=== PATIENT | male | born 1990 | race Caucasian/White ===

== ENCOUNTER 2023-06-06 06:27 | Emergency (ER) | payer OTHER, SELFPAY ==
[2023-06-06 06:39] VITALS: BP 157/91; PULSE 71; RESP 16; TEMP 36.5; O2SAT 98; BMI 28.9
--- NOTE | 2023-06-06 07:15 | ED.DENTAL1 ---
HPI - Dental/Oral General Chief complaint: Dental/Oral Stated complaint: DENTAL PAIN Time Seen by Provider: 06/06/23 07:06 Source: patient Mode of arrival: walk-in Limitations: no limitations History of Present Illness HPI Narrative: patient had several broken and carious teeth. He has not seen a dentist. He presents with pain in the left lower jaw and some swelling of the left lower cheek along the jaw that began 2 days ago. No fever or vomiting. Related Data Home Medications Medication Instructions Recorded Confirmed albuterol sulfate 90 mcg/actuation 1 puff inhalation Q4H PRN 06/06/23 06/06/23 aerosol inhaler (Ventolin HFA) shortness of breath or wheezing alprazolam 0.5 mg tablet 1 mg PO QID 06/06/23 06/06/23 buprenorphine 8 mg-naloxone 2 mg 2 film sublingual DAILY 06/06/23 06/06/23 sublingual film dextroamphetamine-amphetamine 15 15 mg PO DAILY 06/06/23 06/06/23 mg tablet dextroamphetamine-amphetamine ER 25 mg PO DAILY 06/06/23 06/06/23 25 mg 24hr capsule,extend release dronabinol 5 mg capsule 5 mg PO DAILY 06/06/23 06/06/23 pregabalin 200 mg capsule 200 mg PO Q8H 06/06/23 06/06/23 Previous Rx's Medication Instructions Recorded clindamycin HCl 150 mg capsule 450 mg PO TID 7 days #63 caps 06/06/23 nabumetone 750 mg tablet 750 mg PO BID PRN pain #20 tabs 06/06/23 Allergies Allergy/AdvReac Type Severity Reaction Status Date / Time No Known Drug Allergies Allergy Verified 06/06/23 06:44 PFSH PFSH Social History Smoking status: Current every day smoker Exam Narrative Exam Narrative: General: The patient is comfortable, alert and oriented x3, well appearing, non toxic in no apparent distress. Head: Atraumatic and normocephalic. Eyes: Normal conjunctiva ENT: The oropharynx is normal. No pharyngeal erythema, uvular edema, tonsillar exudates, asymmetry or trismus. Uvula is midline. Mouth is normal to inspection with the exception of a pain on percussion of teeth #17 & 19 - tooth 18 is gone - both have substantial loss of enamel and dental caries. There is no evidence of facial asymmetry or abscess formation. Floor of the mouth is soft. No tenderness in the submental or submandibular space. No tongue elevation or deviation. The patient has no evidence of periapical abscess, gingivitis or other acute pathology. Airway is patent. Neck: The neck demonstrates normal range of motion. No meningeals signs are present. No stridor. No masses or lymphandenopathy noted. Respiratory: No acute distress, no stridor or retractions are noted. Cardiovascular: Regular rate and rhythm Skin: The skin exam shows no evidence of rashes Neuro: Alert and oriented x4, normal speech Lymphatic: No cervical lymphadenopathy Constitutional Vital Signs - 24 hr 06/06/23 06:39 Temperature 97.7 F Pulse Rate [Monitor] 71 Respiratory Rate 16 Blood Pressure [Right Arm] 157/91 H Pulse Oximetry 98 Oxygen Delivery Method Room Air Course Vital Signs Vital signs: Vital Signs Temperature 97.7 F 06/06/23 06:39 Pulse Rate 71 06/06/23 06:39 Respiratory Rate 16 06/06/23 06:39 Blood Pressure 157/91 H 06/06/23 06:39 Pulse Oximetry 98 06/06/23 06:39 Oxygen Delivery Method Room Air 06/06/23 06:39 Temperature 97.7 F 06/06/23 06:39 Pulse Rate 71 06/06/23 06:39 Respiratory Rate 16 06/06/23 06:39 Blood Pressure 157/91 H 06/06/23 06:39 Pulse Oximetry 98 06/06/23 06:39 Oxygen Delivery Method Room Air 06/06/23 06:39 MDM - Dental/Oral MDM Narrative Medical decision making narrative: the patient has dental caries and loss of enamel. He was given dental paste to apply topically. he was given oral Toradol. Prescribed clindamycin and relafen to take at home. Given dentist referral list. Discharge Plan Discharge Chief Complaint: Dental/Oral Clinical Impression: Dental caries, Toothache Patient Disposition: Home, Self-Care Time of Disposition Decision: 07:19 Prescriptions / Home Meds: New clindamycin HCl 150 mg capsule 450 mg PO TID 7 Days Qty: 63 0RF nabumetone 750 mg tablet 750 mg PO BID PRN (Reason: pain) Qty: 20 0RF No Action albuterol sulfate [Ventolin HFA] 90 mcg/actuation HFA aerosol inhaler 1 puff INHALATION Q4H PRN (Reason: shortness of breath or wheezing) alprazolam 0.5 mg tablet 1 mg PO QID buprenorphine-naloxone 8-2 mg film 2 film sublingual DAILY dextroamphetamine-amphetamine 15 mg tablet 15 mg PO DAILY dextroamphetamine-amphetamine 25 mg capsule,extended release 24hr 25 mg PO DAILY Rx Instructions: HS dronabinol 5 mg capsule 5 mg PO DAILY pregabalin 200 mg capsule 200 mg PO Q8H Instructions: Toothache (ED) Stand Alone Forms: Portal Instructions Referrals: Physician,Non-Staff, MD [Primary Care Provider] - 1 week
[2023-06-06] MEDS: KETOROLAC TROMETHAMINE 10 MG TABLET PO (07:25)
[2023-06-06] MEDS: BENZOCAINE 30 ML, lidocaine HCL 15 ML MM (07:25)
== END 2023-06-06 07:35 | disposition home or self-care (01) ==
PROVIDERS: Emergency Provider Emergency Medicine
DX: K02.9 Dental caries, unspecified (principal); K08.89 Other specified disorders of teeth and supporting structures; Z79.899 Other long term (current) drug therapy; F17.210 Nicotine dependence, cigarettes, uncomplicated
CPT/HCPCS: 99283

== ENCOUNTER 2024-01-22 18:05 | Emergency (ER) | payer OTHER, SELFPAY ==
[2024-01-22 18:12] VITALS: PULSE 132; RESP 18; TEMP 36.3; BMI 33.9
--- NOTE | 2024-01-22 18:20 | PC.NURSE ---
Patient told registration that he is leaving AMA and is going to call 911 to come by ambulance to get a room faster.
== END 2024-01-22 18:21 | disposition left against medical advice (07) ==
PROVIDERS: Emergency Provider Emergency Medicine
DX: Z53.21 Procedure and treatment not carried out due to patient leaving prior to being seen by health care provider (principal)

== ENCOUNTER 2024-07-20 03:22 | Emergency (ER) | payer OTHER, SELFPAY ==
[2024-07-20 03:24] VITALS: BP 124/97; PULSE 94; TEMP 36.6; O2SAT 95; BMI 34.0
--- OUTSIDE RECORDS SUMMARY | 2024-07-20 03:28 | XMS_ITS | CCD ---
Author Organization [facility] Care Team Providers Care Deli Manager Name Role Phone No, Physician Unavailable Unavailable PHYSICIAN, EMERGENCY Unavailable Unavailable Physician, PCP Unknown Unavailable Unavailab PAULO Michel Attending Unavailabl e NO, PHYSICIAN Primary Care Unavailable SMITA, PHYSICIAN Primary Care Unavailable ADOLFO PUENTE Attending UnavailWil Leal Primary Care Provider [phone] Cruz Tesfaye Unavailable MISC, DR MORSE Primary Care Unavailable ASHVIN RIVERA Admitting Unavailable ASHVIN RIVERA Attending Unavailable REBEL, DR LUCY Joiner Consulting Unavailable ASHVIN RIVERA Consulting Unavailable MISAroldo, DR MORSE Primary Care Unavailable JUAN JOSÉ, DR FELI Joiner Admitting Unavailable JUAN JOSÉ, DR FELI Joiner Attending Unavailable JUAN JSOÉ, DR FELI Joiner Consulting Unavailable PHOENIX, KEMAR MENDOZA Consulting Unavailable ADOLFO HAIDER Consulting Unavailable MISC, DR MORSE Primary Care Unavailable ARMAND NGUYEN Admitting Unavailable WENDY, ARMAND Attending Unavailable ARMAND NGUYEN Consulting Unavailable MISC, DR MORSE Primary Care Unavailable JODI, DR LEE Admitting Unavailable JODI, DR LEE Attending Unavailable KATHRYN, DR ADOLFO Jacome Consulting Unavailable JODI, DR LEE Consulting Unavailable Bob ([facility]), MD Chetan Kendrick Primary Care Provi mateo Carrington, [facility]- Rosi E Emergency Provider Wil Goetz Primary Care Provider [phone] PITER MENESES Referring Unavailable WIL GOETZ Primary Care Unavailable Bob ([facility])MD Chetan Primary Care Provi mateo DO Ryland Kaminski Emergency Provider Bob ([facility])Chetan Primary Care Unava ilable Ryland Kaminski Attending Unavailable Ryland Kaminski Admitting Unavailable [facility] Primary Care Provider [phone] Bob LEWIS, Chetan Jackson Primary Care Provider Pavoscar [facility] Primary Care Provider [facility] Primary Care Unavailable ADOLFO BALLARD Attending Unavailable CHARLEEN SILVER Attending Unavailable [facility] Unavaila PITER Gibbons Attending Unavailable [facility] Primary Care Unavailable PITER MENESES Referring Unavailable [facility] Primary Care Unavailable REYNA ANTON Attending Unavailable [facility] Primary Care Unavailable REYNA ANTON Referring Unavailable [facility] Primary Care Unavailable RUSTY JASMINE Referring Unavailable RUSTY JASMINE Attending Unavailable ADOLFO BALLARD Admitting Unavailable [facility] Primary Care Unavailable ADOLFO BALLARD Attending Unavailable [facility] Primary Care Unavailable REYNA ANTON Attending Unavailable [facility] Primary Care Unavailable RUSTY JASMINE Referring Unavailable [facility] Primary Care Unavailable RUSTY JASMINE Referring Unavailable [facility] Primary Care Unavailable RUSTY JASMINE Referring Unavailable JAYLEEN BECKER Attending Unavailable [facility], [facility] Primary Care Unavailable REYNA ANTON Referring Unavailable RENEE PEARCE Referring Unavailable [facility] Unavaila RENEE Deleon Referring Unavailable [facility] Primary Care Unavaila RENEE Deleon Referring Unavailable [facility] Primary Care UnavailADOLFO Castro Attending Unavailable [facility] Primary Care Unavaila ble Allergies Allergy Classification Reported Allergen(s) Allergy Type Date of Onset Reaction(s) Facility Cephalosporins (antibiotic) (1 source) Cefuroxime Drug Allergy 10-19-20 18 Diarrhea [facility] Opioid Agonists (2 sources) Propoxyphene Drug Allergy 02-06-20 10 Rash, Itching, Hives [facility] Work Phone: Penicillins (antibiotic) (1 source) Amoxicillin Drug Allergy 09-17-20 20 Rash [facility] (2 sources) Aspirin / oxyCODONE Hydrochloride / oxyCODONE terephthalate; Translations: [OXYCODONE [id number]] Drug Allergy 08-31-20 10 Rash [facility] (20 sources) Propoxyphene; Translations: [PROPOXYPHENE HCL] Drug Allergy 02-06-20 10 Rash, Itching [facility] Work Phone: (5 sources) Aspirin / oxyCODONE Drug Allergy Unknown [employer] [employer] Other (20 sources) Amoxicillin; Translations: [AMOXICILLIN] Drug Allergy 09-17-20 20 Rash [facility] (20 sources) Cefuroxime; Translations: [CEFUROXIME] Drug Allergy 10-19-20 18 Diarrhea [facility] (20 sources) Morphine; Translations: [MORPHINE] Drug Allergy 09-02-20 18 Hives [facility] (1 source) Aspirin Drug Allergy 02-08-[address] [facility] Rep[facility] (1 source) oxyCODONE Drug Allergy 02-08-[address] [facility] Rep[facility] (16 sources) Iodinated Contrast Media; Translations: [IODINATED CONTRAST MEDIA] Drug Intolerance 05-21-20 24 Intolerance [facility] Medications Current Medications Medication Drug Class(es) Dates Sig (Normalized) Sig (Original) [id number] 200 actuat albuterol 0.09 mg/actuat metered dose inhaler (20 sources) beta2-Adrenergic Agonist Start: 07-17-2021 take 2 puff(s) by inhalation every six hours as needed for wheezing albuterol HFA (PROAIR HFA) 90 mcg/actuation inhaler 2 Puffs every 6 hours as needed for wheezing/shortnes s of breath. Take as directed 1 Each 07/17/2021 Active Start: 05-23-2020 End: 09-17-2020 Albuterol Sulfate Discontinu ed 2 INH INHALATION Four times daily May 23, 2020 4:31pm September 17, 2020 9:55pm Start: 11-11-2018 End: 07-17-2019 Albuterol Sulfate Discontinu ed 2 INH INHALATION EVERY 4-6 HOURS November 11, 2018 12:00am July 17, 2019 2:21pm administer with spacer Comment on above: 2 Puffs every 6 hour s as needed for wheezing/shortness of breath. Take as directed ALPRAZolam 1 mg oral tablet (20 sources) Benzodiazepine Start: 07-08-20 End: 08-07-20 take 1 tablet by mouth four times daily as needed for anxiety ALPRAZolam (XANAX) 1 mg tablet Indications: Alcohol withdrawal syndrome without complication (HCC) Take 1 tablet by mouth four times a day as needed for anxiety for up to 30 days. 120 tablet 07/08/2024 08/07/2024 Active Start: 09-17-2020 take 1 mg by mouth f our times daily Alprazolam Active 1 MG PO Four times daily September 16, 2020 11:00pm Start: 12-03-2017 End: 12-05-2017 take 1 tablet by mouth three times daily Alprazolam (Xanax) 2 mg Tablet Discontinued 2 MG PO Three times daily December 03, 2017 12:00am December 05, 2017 5:58pm Start: 11-13-2015 End: 07-17-2019 take 1 tablet by mouth every eight hours as needed ALPRAZolam (XANAX) 1 mg tablet Take 1 tablet by mouth three times daily as needed for Anxiety. 21 tablet 0 11/13/2015 Suspended Xanax Active Comment on above: Take 1 tablet by nava three times daily as needed for Anxiety. amoxicillin 500 mg oral capsule (1 source) Penicillin-class Antibacterial Start: 018 End: take 1 capsule by mouth three times daily amoxicillin (AMOXIL) 500 MG capsule Indications: Acute otalgia, right Take 1 (one) capsule (500 mg total) by mouth 3 (three) times a day for 30 doses. 30 capsule 0 2018 05/22/2018 Active amphetamine aspartate 3.75 mg / amphetamine sulfate 3.75 mg / dextroamphetamine saccharate 3.75 mg / dextroamphetamine sulfate 3.75 mg oral tablet (20 sources) Central Nervous System Stimulant Start: 021 take 1 tablet by mouth once daily in the evening amphetamine-dextro amphetamine 15 mg tablet TAKE 1 TABLET BY MOUTH EVERY DAY IN THE EVENING 06/22/2021 Active Start: 09-17-2020 amphetamine-de xtroamphetamine XR (ADDERALL XR) 25 mg 24 hr capsule Take by mouth every morning. 06/22/2021 Active Start: 09-17-2020 End: 09-22-2020 take 1 tablet by mouth once daily Dextroamphetamine-Amphetamine (Adderall) 15 mg Tablet Discontinued 15 MG PO Daily September 16, 2020 11:00pm September 22, 2020 12:42pm Start: 06-23-2018 End: 07-17-2019 take 15 mg by mouth once daily Dextroamphetamine-Amphetamine Discontinu ed 15 MG PO Daily June 22, 2018 11:00pm July 17, 2019 2:22pm Start: 04-28-2018 End: 06-23-2018 take 1 tablet by mouth twice daily Dextroamphetamine-Amphetamine (Adderall) 5 mg Tablet Discontinued 5 MG PO Twice daily April 27, 2018 11:00pm June 23, 2018 4:41pm Start: 04-28-2018 End: 07-17-2019 take 1 tablet by mouth twice daily Dextroamphetamine-Amphetamine (Adderall) 10 mg Tablet Discontinued 10 MG PO Twice daily April 27, 2018 11:00pm July 17, 2019 2:22pm Comment on above: Take by mouth every morning. TAKE 1 TABLET BY NAVA TH EVERY DAY IN THE EVENING amphetamine aspartate 2.5 mg / amphetamine sulfate 2.5 mg / dextroamphetamine saccharate 2.5 mg / dextroamphetamine sulfate 2.5 mg oral tablet (2 sources) Central Nervous System Stimulant Start: 05-04-2018 dextroamphetamine- amphetamine (ADDERALL) 10 mg tablet Start: 05-04-2018 dextroamphetam ine-amphetamine (ADDERALL XR) 15 MG 24 hr capsule bismuth subcitrate 140 mg / metroNIDAZOLE 125 mg / tetracycline hydrochloride 125 mg oral capsule (10 sources) Nitroimidazole Antimicrobial, Tetracycline-class Antimicrobial Start: 09-27-2020 take 3 capsules by mouth every six hours Pylera 140-125-125 MG 3 capsules after meals and at bedtime Orally Four times a day for 10 day(s) Oct, Active buprenorphine 8 mg / naloxone 2 mg sublingual film (20 sources) Partial Opioid Agonist, Opioid Antagonist Start: 07-05-2018 buprenorphine-na loxone (SUBOXONE) 8-2 mg film dissolve 1 film under the tongue twice a day 06/28/2021 Active Suboxone Active Comment on above: dissolve 1 film unde r the tongue twice a day diclofenac sodium 75 mg delayed release oral tablet (1 source) Nonsteroidal Anti-inflammatory Drug Start: 8 End: 8 take 1 tablet by mouth twice daily at mealtime diclofenac sodium (VOLTAREN) 75 MG EC tablet Indications: Acute otalgia, right Take 1 (one) tablet (75 mg total) by mouth 2 (two) times a day with meals for 7 days. 14 tablet 0 2018 05/19/2018 Active enteric contrast (will be provided with radiology test) (4 sources) Start: 4 End: 4 enteric contrast (will be provided with radiology test) For CT ENTEROGRAPHY W IVCON order Administer, As Directed One Time Only, via Oral, Rectal, both Oral and Rectal, Enteric Tube, Stoma or Indwelling Catheter, Enteric Contrast as designated per enteric contrast guidelines. 1 Each 0 05/14/2024 05/15/2024 Active Start: 09-29-2023 End: 09-30-2023 enteric contrast (will be pr ovided with radiology test) For CT ENTEROGRAPHY W IVCON order Administer, As Directed One Time Only, via Oral, Rectal, both Oral and Rectal, Enteric Tube, Stoma or Indwelling Catheter, Enteric Contrast as designated per enteric contrast guidelines. 1 Each 0 09/29/2023 09/30/2023 Active Comment on above: For CT ENTEROGRAPHY W IVCON order Administer, As Directed One Time Only, via Oral, Rectal, both Oral and Rectal, Enteric Tube, Stoma or Indwelling Catheter, Enteric Contrast as designated per enteric contrast guidelines. eszopiclone 3 mg oral tablet (20 sources) Start: 05-17-20 11 take 1 tablet by mouth every twenty-four hours as needed eszopiclone (LUNESTA) 3 mg ORAL Tab Take 1 tablet by mouth at bedtime as needed. for insomnia. 30 tablet 5 05/17/2011 Active Comment on above: Take 1 tablet by nava th at bedtime as needed. for insomnia. HYDROmorphone hydrochloride 2 mg oral tablet (7 sources) Opioid Agonist Start: 07-16-20 End: 07-19-20 24 take 1 tablet by mouth every six hours as needed HYDROmorphone 2 mg tablet Indications: Post-operative pain Take 1 tablet by mouth every 6 hours as needed for up to 3 days. Patient should start on July 16, 2024. 12 tablet 07/16/2024 07/19/2024 Active Start: 07-08-2024 End: 07-15-2024 take 1 tablet by mouth every three hours as needed, then take 1 tablet by mouth every six hours as needed, then take 1 tablet by mouth every eight hours as needed, then take 1 tablet by mouth every twelve hours as needed HYDROmorphone 4 mg tablet Indications: Post-operative pain Take 1 tablet by mouth every 3 hours as needed for 2 days, THEN 1 tablet every 6 hours as needed for 2 days, THEN 1 tablet every 8 hours as needed for 2 days, THEN 1 tablet every 12 hours as needed for up to 1 day. 32 tablet 0 07/08/2024 07/15/2024 Active iv contrast (will be provide d with radiology test) (4 sources) Start: 05-14-2024 End: 05-15-2024 iv contrast (will be provide d with radiology test) CT Enterography W Inject, intravenously, once for 1 dose.No IV access, insert saline lock prior to the beginning of sedation, infusion, injection of imaging exam. Discontinue saline lock post exam. If Pt. has a central line or IVAD, may access for administration according to line specific nursing protocol. Once exam is complete flush line and de-access according to line specific nursing protocol in the CT contrast administration guidelines link. 1 Each 0 05/14/2024 05/15/2024 Active Start: 09-29-2023 End: 09-30-2023 iv contrast (will be provide d with radiology test) CT Enterography W Inject, intravenously, once for 1 dose.No IV access, insert saline lock prior to the beginning of sedation, infusion, injection of imaging exam. Discontinue saline lock post exam. If Pt. has a central line or IVAD, may access for administration according to line specific nursing protocol. Once exam is complete flush line and de-access according to line specific nursing protocol in the CT contrast administration guidelines link. 1 Each 0 09/29/2023 09/30/2023 Active Comment on above: CT Enterography W In ject, intravenously, once for 1 dose.No IV access, insert saline lock prior to the beginning of sedation, infusion, injection of imaging exam. Discontinue saline lock post exam. If Pt. has a central line or IVAD, may access for administration according to line specific nursing protocol. Once exam is complete flush line and de-access according to line specific nursing protocol in the CT contrast administration guidelines link. loperamide hydrochloride 2 mg oral capsule (2 sources) Opioid Agonist Start: 06-08-20 24 take 1 capsule by mouth every six hours as needed loperamide (IMODIUM) 2 mg cap(s) Take 1 capsule by mouth four times a day as needed. 360 capsule 5 06/08/2024 Active meclizine hydrochloride 25 mg oral tablet (1 source) Antiemetic Start: 05-12-20 18 End: 05-19-20 18 take 1 tablet by mouth three times daily as needed for nausea meclizine (ANTIVERT) 25 mg tablet Indications: Acute otalgia, right Take 1 (one) tablet (25 mg total) by mouth 3 (three) times a day as needed for nausea. 21 tablet 0 2018 05/19/2018 Active naloxone hydrochloride 40 mg/ml nasal spray (11 sources) Opioid Antagonist naloxone 4 mg/actuation nasal spray (NARCAN) use as directed for opioid overdose symptoms if not already Rx'd by Dr Andre Boyd Q 2 minutes as directed for 30 days 0 Active Comment on above: use as directed for opioid overdose symptoms if not already Rx'd by Dr Powell Nasalrafael Q 2 minutes as directed for 30 days naloxone 4 mg/actuation nasal spray (NARCAN) (10 sources) Start: 07-08-20 24 naloxone 4 mg/actuation nasal spray (NARCAN) Use 1 spray in one nostril as needed for overdose. May repeat every 2 to 3 min in alternating nostrils until medical assistance is available 2 Each 07/08/2024 Active Start: 07-08-2024 naloxone 4 mg/ actuation nasal spray (NARCAN) Use 1 spray in one nostril as needed for overdose. May repeat every 2 to 3 min in alternating nostrils until medical assistance is available 2 Each 0 07/08/2024 Active End: 06-02-2024 naloxone 4 mg/actuation nasa l spray (NARCAN) use as directed for opioid overdose symptoms if not already Rx'd by Dr Powell Nasalrafael Q 2 minutes as directed for 30 days 0 06/02/2024 Discontinued naloxone 4 mg/ac tuation nasal spray (NARCAN) use as directed for opioid overdose symptoms if not already Rx'd by Dr Powell Nasalrafael Q 2 minutes as directed for 30 days 0 Active ondansetron 4 mg oral tablet (20 sources) Serotonin-3 Receptor Antagonist Start: 07-08-2024 End: 07-18-2024 take 1 tablet by mouth every eight hours as needed ondansetron (ZOFRAN) 4 mg tablet Take 1 tablet by mouth every 8 hours as needed for nausea/vomiting for up to 10 days. 30 tablet 0 07/08/2024 07/18/2024 Active Start: 09-10-2020 End: 11-11-2022 take 4 mg by mouth three times daily Ondansetron Discontinued 4 MG PO Three times daily 08 03September 09, 2020 11:00pm November 11, 2022 12:03pm Start: 07-22-2019 take 1 tablet by nava th every twenty-four hours Zofran 4 MG 1 tablet Orally Once a day for 30 day(s) Jul, Active Start: 07-17-2019 End: 12-20-2019 take 4 mg by mouth every eight hours Ondansetron Discontinued 4 MG PO Q8H July 16, 2019 11:00pm December 20, 2019 8:00pm Start: 06-23-2018 End: 06-28-2018 take 1 tablet by mouth every eight hours Ondansetron Hcl (Zofran) 4 mg tablet Discontinued 4 MG PO Q8H 15 June 22, 2018 11:00pm June 27, 2018 11:02pm Start: 12-03-2017 End: 04-28-2018 take 1 tablet by mouth every eight hours Ondansetron (Zofran Odt) 4 mg Tablet,Disintegrating Discontinued 4 MG PO Q8H December 03, 2017 12:00am April 28, 2018 8:53pm Start: 11-21-2017 End: 11-21-2017 ondansetron (ZOFRAN) injecti on 4 mg 4 mg, Intravenous, Once, 11/21/17 at 0720, For 1 dose Given 11/21/2017 07:29 EST 4 mg End: 06-29-2024 take 1 tablet by mouth once daily as needed ondansetron (ZOFRAN) 8 mg tablet 1 tablet as needed Orally Once a day for 30 day(s) 0 06/02/2024 Discontinued Comment on above: 1 tablet as needed O rally Once a day for 30 day(s) pregabalin 200 mg oral capsule (20 sources) Start: 09-07-2012 take 1 capsule by mouth three times daily Pregabalin (LYRICA) 200 mg capsule Take 200 mg by mouth three times daily. 07/06/2021 Active Comment on above: Take 200 mg by mouth three times daily. valproic acid 250 mg oral capsule (6 sources) Mood Stabilizer, Anti-epileptic Agent Start: 07-08-2024 End: 07-22-2024 take 1 capsule by mouth twice daily valproic acid (DEPAKENE) 250 mg capsule Take 1 capsule by mouth twice a day for 1 week then transition to 1 capsule before sleep for 1 week. 21 capsule 07/08/2024 07/22/2024 Active Completed/Discontinued Medications Medication Drug Class(es) Dates Sig (Normalized) Sig (Original) acetaminophen 325 mg / HYDROcodone bitartrate 5 mg oral tablet (2 sources) Opioid Agonist Start: 10-19-2018 End: 11-10-2018 take 1 tablet by mouth every six hours Hydrocodone-Acetami nophen (Hutchinson) 5-325 mg Tablet Discontinued 1 TAB PO Every 6 hours October 19, 2018 12:00am November 10, 2018 11:42pm acetaminophen 325 mg / oxyCODONE hydrochloride 5 mg oral tablet (4 sources) Opioid Agonist Start: 12-05-2017 End: 12-12-2017 take 1 tablet by mouth every four hours Oxycodone-Acetamino phen Discontinued 1 TAB PO Q4H 42 7 December 05, 2017 December 12, 2017 12:04am Start: 12-03-2017 End: 07-05-2018 take 1 tablet by mouth four times daily Oxycodone-Acetaminophen (Percocet) 10-32 5 mg Tablet Discontinued 1 TAB PO Four times daily December 03, 2017 12:00am July 05, 2018 8:57pm Albuterol Sulfate (Ventolin Hfa) 90 mcg/actuation HFA aerosol inhaler (2 sources) Start: 10-19-2018 End: 07-17-2019 Albuterol Sulfate (Ventolin Hfa) 90 mcg/actuation HFA aerosol inhaler Discontinued October 19, 2018 12:00am July 17, 2019 2:21pm ARIPiprazole 15 mg oral tablet (3 sources) Atypical Antipsychotic Start: 10-12-2018 End: 12-20-2019 take 1 tablet by mouth once daily Aripiprazole (Abilify) 15 mg Tablet Discontinued 15 MG PO Daily October 12, 2018 12:00am December 20, 2019 8:00pm Start: 05-04-2018 ARIPiprazole ( ABILIFY) 10 MG tablet azithromycin 250 mg oral tablet (4 sources) Macrolide Antimicrobial Start: 10-19-2018 End: 11-10-2018 take 2 tablets by mouth once daily Azithromycin (Zithromax) 250 mg tablet Discontinued 0 PO .COMPLEX October 19, 2018 12:00am November 10, 2018 11:42pm take 500 mg once daily for 3 days B Complex-Vitamin C-Folic Acid 0.5 mg Tab (18 sources) Start: 07-24-2012 End: 06-29-2024 take 1 tablet by mouth once daily B Complex-Vitamin C-Folic Acid 0.5 mg Tab Take 1 tablet by mouth once daily. 30 tablet 0 07/24/2012 06/29/2024 Discontinued Start: 07-24-2012 take 1 tablet by nava th once daily B Complex-Vitamin C-Folic Acid 0.5 mg Tab Take 1 tablet by mouth once daily. 30 tablet 0 07/24/2012 Active Comment on above: Take 1 tablet by nava th once daily. benzonatate 100 mg oral capsule (18 sources) Non-narcotic Antitussive Start: End: take 1 capsule by mouth every eight hours as needed benzonatate (TESSALON PERLE) 100 mg capsule Take 100 mg by mouth three times daily as needed. 0 06/14/2021 06/02/2024 Discontinued Start: 10-03-2019 End: 12-20-2019 take 1 capsule by mouth three times daily Benzonatate (Tessalon Perles) 100 mg capsule Discontinued 100 MG PO Three times daily October 02, 2019 11:00pm December 20, 2019 8:00pm Comment on above: Take 100 mg by mouth three times daily as needed. 24 hr buPROPion hydrochloride 300 mg extended release oral tablet (20 sources) Aminoketone Start: 12-05-19 End: 06-29-20 take 1 tablet by mouth once daily in the morning buPROPion XL (WELLBUTRIN XL) 300 mg 24 hr tablet 1 tablet in the morning Once a day Orally 30 day(s) 0 05/31/2021 06/29/2024 Discontinued Wellbutrin Activ e Comment on above: 1 tablet in the morn ing Once a day Orally 30 day(s) cephalexin 500 mg oral capsule (4 sources) Cephalosporin Antibacterial Start: 0 End: take 1 capsule by mouth four times daily Cephalexin (Keflex) 500 mg capsule Discontinued 500 MG PO Four times daily 40 November 11, 2020 12:00am October 31, 2021 9:30am Start: 09-02-2018 End: 09-20-2018 take 1 capsule by mouth four times daily Cephalexin (Keflex) 500 mg capsule Discontinued 500 MG PO Four times daily 40 September 01, 2018 11:00pm September 20, 2018 6:49pm clindamycin 300 mg oral capsule (2 sources) Lincosamide Antibacterial Start: 08-10-2020 End: 09-17-2020 take 300 mg by mouth three times daily Clindamycin Hcl Discontinued 300 MG PO Three times daily 30 August 09, 2020 11:00pm September 17, 2020 9:56pm dicyclomine hydrochloride 10 mg oral capsule (6 sources) Anticholinergic Start: 09-10-2020 End: 01-31-2021 Dicyclomine Discontinued 10 MG PO As Directed September 22, 2020 1:13pm January 31, 2021 7:36am Start: 06-23-2018 End: 07-17-2019 take 20 mg by mouth three times daily Dicyclomine Discontinued 20 MG PO Three times daily June 22, 2018 11:00pm July 17, 2019 2:22pm doxycycline hyclate 100 mg oral capsule (4 sources) Tetracycline-class Drug Start: 01-31-2021 End: 10-31-2021 take 100 mg by mouth twice daily Doxycycline Hyclate Discontinued 100 MG PO Twice daily 28 January 31, 2021 12:00am October 31, 2021 9:30am Start: 07-05-2018 End: 07-12-2018 take 100 mg by mouth twice daily Doxycycline Hyclate Discontinued 100 MG PO Twice daily 14 July 04, 2018 11:00pm July 11, 2018 11:02pm dronabinol 5 mg oral capsule (20 sources) Cannabinoid Start: 09-17-2020 End: 06-29-2024 dronabinol (MARINOL) 5 mg capsule as needed. 0 05/07/2021 06/29/2024 Discontinued Comment on above: TAKE 1 CAPSULE in th e evening or bedtime famotidine 20 mg oral tablet (2 sources) Histamine-2 Receptor Antagonist Start: 08-10-2020 End: 09-22-2020 take 1 tablet by mouth twice daily Famotidine (Pepcid) 20 mg tablet Discontinued 20 MG PO Twice daily 09 04August 09, 2020 11:00pm September 22, 2020 1:12pm ferrous sulfate 325 mg oral tablet (18 sources) Start: 05-17-2011 End: 06-29-2024 take 1 tablet by mouth twice daily Ferrous Sulfate (IRON) 325 mg (65 mg iron) ORAL tablet Take 1 tablet by mouth twice daily. 200 tablet 5 05/17/2011 06/29/2024 Discontinued Comment on above: Take 1 tablet by nava th twice daily. fexofenadine hydrochloride 60 mg oral tablet (1 source) Histamine-1 Receptor Antagonist Start: 05-21-2024 End: 05-22-2024 fexofenadine 60 mg tab(s) (JOHNATHON) hydrOXYzine hydrochloride 25 mg oral tablet (15 sources) Antihistamine End: 06-02-2024 hydrOXYzine HCl (ATARAX) 25 mg tablet 1 tablet Q6 hours as needed for itch Orally up to every 6 hrs as needed for itch for 10 days 0 06/02/2024 Discontinued Comment on above: 1 tablet Q6 hours as needed for itch Orally up to every 6 hrs as needed for itch for 10 days levoFLOXacin 750 mg oral tablet (2 sources) Quinolone Antimicrobial Start: 11-11-2018 End: 07-17-2019 take 1 tablet by mouth once daily Levofloxacin (Levaquin) 750 mg tablet Discontinued 750 MG PO daily 04 04November 11, 2018 12:00am July 17, 2019 2:22pm 24 hr methylphenidate hydrochloride 18 mg extended release oral tablet (2 sources) Central Nervous System Stimulant Start: 10-03-2019 End: 09-22-2020 take 18 mg by mouth once daily Methylphenidate Hcl Discontinued 18 MG PO Daily October 02, 2019 11:00pm September 22, 2020 1:12pm Naltrexone (2 sources) Opioid Antagonist Start: 02-19-2017 Vivitrol Jan, 380 mg Start: 01-27-2017 Vivitrol 2016 380 mg naproxen 500 mg oral tablet (2 sources) Nonsteroidal Anti-inflammatory Drug Start: 10-31-2021 End: 11-11-2022 take 1 tablet by mouth twice daily Naproxen (Naprosyn) 500 mg tablet Discontinued 500 MG PO Twice daily October 31, 2021 10:35am November 11, 2022 12:03pm omeprazole 40 mg delayed release oral capsule (17 sources) Proton Pump Inhibitor Start: 09-28-2020 take 1 capsule by mouth twice daily before mealtime Omeprazole 40 MG 1 capsule 20-3- minutes before meals Orally bid for 10 days Aug, Not-Taking Start: 09-27-2020 take 1 capsule by mo uth once daily omeprazole (PRILOSEC) 40 mg capsule 1 capsule 30 minutes before morning meal Orally Once a day for 30 days 09/27/2020 Active pantoprazole 40 mg delayed release oral tablet (18 sources) Proton Pump Inhibitor Start: 07-24-2012 End: 06-29-2024 take 1 tablet by mouth twice daily before mealtime pantoprazole 40 mg tablet Take 1 tablet by mouth twice daily before meals. 30 tablet 0 07/24/2012 06/29/2024 Discontinued Comment on above: Take 1 tablet by nava th twice daily before meals. predniSONE 20 mg oral tablet (6 sources) Start: 01-31-2021 End: 11-11-2022 take 40 mg by mouth once daily at mealtime Prednisone Discontinued 40 MG PO Daily January 31, 2021 12:00am November 11, 2022 12:03pm administer with food or milk Start: 09-18-2020 End: 09-22-2020 take 60 mg by mouth once daily Prednisone Discontinued 60 MG PO Daily 29 04September 17, 2020 11:00pm September 22, 2020 1:13pm Start: 11-11-2018 End: 07-17-2019 take 40 mg by mouth once daily in the morning Prednisone Discontinued 40 MG PO Every morning 09 04November 11, 2018 12:00am July 17, 2019 2:22pm administer with food or milk 1 ml promethazine hydrochloride 25 mg/ml injection (4 sources) Phenothiazine Start: 12-03-2017 End: 06-23-2018 take 25 mg by mouth every six hours Promethazine Discontinued 25 MG PO Q6H December 03, 2017 12:00am June 23, 2018 4:42pm Start: 12-03-2017 End: 12-03-2017 Promethazine (Phenergan) 25 mg/mL Solution Discontinued 25 MG SOLUTION Once December 03, 2017 12:00am December 03, 2017 7:14pm 24 hr QUEtiapine 300 mg extended release oral tablet (20 sources) Atypical Antipsychotic Start: 04-10-2021 End: 06-29-2024 take 1 tablet by mouth once daily at bedtime QUEtiapine XR (SEROQUEL XR) 300 mg 24 hr tablet Take 300 mg by mouth daily at bedtime. 0 04/10/2021 06/29/2024 Discontinued Start: 10-12-2018 Quetiapine (Se roquel) 200 mg Tablet Active 300 MG PO Daily at bedtime October 12, 2018 12:00am Start: 2018 QUEtiapine (SE ROQUEL) 300 MG tablet take 1 tablet by nava th every twenty-four hours SEROquel 200 MG 1 tablet at bedtime Orally Once a day Active Comment on above: Take 300 mg by mouth daily at bedtime. sulfamethoxazole 800 mg / trimethoprim 160 mg oral tablet (8 sources) Dihydrofolate Reductase Inhibitor Antibacterial, Sulfonamide Antimicrobial Start: 11-11-20 End: 11-26-20 take 1 tablet by mouth twice daily Sulfamethoxazole-Tr imethoprim (Bactrim Ds) 800-160 mg tablet Discontinued 1 TAB PO Twice daily November 11, 2020 12:00am November 26, 2020 4:31pm Start: 01-03-2020 End: 09-17-2020 take 1 tablet by mouth twice daily Sulfamethoxazole-Trimethoprim (Bactrim D s) 800-160 mg tablet Discontinued 1 TAB PO Twice daily 19 09January 03, 2020 12:00am September 17, 2020 9:56pm Start: 09-02-2018 End: 09-20-2018 take 1 tablet by mouth twice daily Sulfamethoxazole-Trimethoprim (Bactrim D s) 800-160 mg tablet Discontinued 1 TAB PO Twice daily 19 09September 01, 2018 11:00pm September 20, 2018 6:49pm Start: 12-05-2017 End: 12-19-2017 take 2 tablets by mouth every twelve hours Sulfamethoxazole-Trimethoprim (Bactrim D s) 800-160 mg tablet Discontinued 2 TAB PO Q12H 56 December 05, 2017 12:00am December 19, 2017 12:04am therapeutic multivitamin ORAL tablet (16 sources) Start: 05-17-2011 End: 06-02-2024 take 1 tablet by mouth twice daily therapeutic multivitamin ORAL tablet Take 1 tablet by mouth twice daily. 120 tablet 2 05/17/2011 06/02/2024 Discontinued Start: 05-17-2011 take 1 tablet by nava th twice daily therapeutic multivitamin ORAL tablet Take 1 tablet by mouth twice daily. 120 tablet 2 05/17/2011 Active Comment on above: Take 1 tablet by nava th twice daily. zolpidem tartrate 10 mg oral tablet (2 sources) gamma-Aminobutyri c Acid-ergic Agonist Start: 12-03-2017 End: 12-05-2017 take 1 tablet by mouth at bedtime Zolpidem (Ambien) 10 mg Tablet Discontinued 10 MG PO Bedtime December 03, 2017 12:00am December 05, 2017 5:58pm Problems Active Problems Problem Classification Problem Date Documented Da te Episodic/Chronic Abdominal hernia (14 sources) Unspecified abdominal hernia without obstruction or gangrene; Translations: [Hernia of unspecified site without mention of obstruction or gangrene] Onset: 4 05-14-2024 Episodic Alcohol-related disorders (20 sources) Alcohol abuse; Translations: [Alcohol abuse, uncomplicated] Onset: 4 06-29-2024 Chronic Allergic reactions (2 sources) Allergic reaction; Translations: [Allergy, unspecified, initial encounter] 08-10-2020 Episodic Anxiety disorders (20 sources) Anxiety; Translations: [Anxiety disorder, unspecified] Onset: 5 11-26-2021 Chronic Asthma (1 source) Unspecified asthma, uncomplicated; Translations: [UNSPECIFIED ASTHMA UNCOMPLICATED] Onset: 2 Chronic Attention-deficit, conduct, and disruptive behavior disorders (20 sources) Attention deficit hyperactivity disorder; Translations: [Attention-deficit hyperactivity disorder, unspecified type] Onset: 1 07-15-2021 Chronic Patel (2 sources) Burn of ear; Translations: [Burn of unspecified degree of unspecified ear [any part, except ear drum], initial encounter] 12-20-2019 Episodic Cardiac dysrhythmias (1 source) Palpitations; Translations: [Palpitations] Onset: 4 Episodic Chronic obstructive pulmonary disease and bronchiectasis (2 sources) Bronchitis; Translations: [Bronchitis, not specified as acute or chronic] 10-03-2019 Episodic Disorders of teeth and jaw (2 sources) Dental caries; Translations: [Dental caries, unspecified] 08-10-2020 Episodic E Codes: Struck by; against (2 sources) Striking against or struck by other objects, initial encounter; Translations: [Other cause of strike by thrown, projected or falling object, initial encounter] Onset: 2 Episodic Esophageal disorders (20 sources) Gastroesophageal reflux disease; Translations: [Gastro-esophageal reflux disease without esophagitis] Onset: 1 07-15-2021 Chronic Hepatitis (13 sources) Chronic hepatitis C; Translations: [Chronic viral hepatitis C] Onset: 1 12-04-2017 Chronic Influenza (2 sources) Influenza; Translations: [Influenza due to unidentified influenza virus with other respiratory manifestations] 12-05-2019 Episodic Joint disorders and dislocations; trauma-related (6 sources) Derangement of right knee; Translations: [Unspecified internal derangement of right knee] Onset: 1 Resolved: 1 Chronic Mood disorders (20 sources) Bipolar I disorder; Translations: [Bipolar disorder, unspecified] Onset: 6 07-15-2021 Chronic Nutritional deficiencies (20 sources) Moderate protein energy malnutrition; Translations: [Moderate protein-calorie malnutrition] Onset: 1 Resolved: 4 07-15-2021 Chronic Open wounds of extremities (2 sources) Puncture wound of toe; Translations: [Puncture wound without foreign body of unspecified toe(s) without damage to nail, initial encounter] 03-24-2021 Episodic Open wounds of head; neck; and trunk (2 sources) Laceration - injury; Translations: [Laceration] 11-11-2020 Episodic Other connective tissue disease (3 sources) Pain in right foot; Translations: [PAIN IN RIGHT FOOT] Onset: 2 Episodic Other gastrointestinal disorders (2 sources) History of Crohns disease; Translations: [Personal history of other diseases of the digestive system] 11-26-2020 Episodic Other gastrointestinal disorders (2 sources) Diarrhea; Translations: [Diarrhea, unspecified] 11-26-2020 Episodic Other injuries and conditions due to external causes (1 source) Injury of right hand; Translations: [Unspecified injury of right wrist, hand and finger(s), initial encounter] Episodic Other injuries and conditions due to external causes (1 source) Injury of finger; Translations: [Unspecified injury of left wrist, hand and finger(s), initial encounter] 01-03-2020 Episodic Other injuries and conditions due to external causes (2 sources) Injury of toe; Translations: [Unspecified injury of unspecified foot, initial encounter] 03-24-2021 Episodic Other injuries and conditions due to external causes (1 source) Injury of finger of left hand; Translations: [Unspecified injury of left wrist, hand and finger(s), initial encounter] 01-03-2020 Episodic Other liver diseases (1 source) Steatosis of liver; Translations: [Fatty (change of) liver, not elsewhere classified] 05-14-2024 Chronic Other liver diseases (3 sources) Elevated liver enzymes level; Translations: [Abnormal levels of other serum enzymes] 09-17-2023 Episodic Other lower respiratory disease (2 sources) Productive cough ; Translations: [Productive cough] 01-31-2021 Episodic Other nervous system disorders (9 sources) Postoperative pain ; Translations: [Other acute postprocedural pain] Onset: 4 07-08-2024 Episodic Other nervous system disorders (1 source) Other acute postprocedural pain; Translations: [Post-operative pain] Onset: 4 Episodic Other nutritional; endocrine; and metabolic disorders (12 sources) Obese class II; Translations: [Obesity, unspecified] Onset: 4 06-02-2024 Chronic Other upper respiratory infections (2 sources) Upper respiratory infection; Translations: [Acute upper respiratory infection, unspecified] 05-23-2020 Episodic Poisoning by other medications and drugs (2 sources) Poisoning by unspecified drugs, medicaments and biological substances, accidental (unintentional), initial encounter; Translations: [Polysubstance overdose] 05-06-2018 Episodic Regional enteritis and ulcerative colitis (20 sources) Crohn's disease; Translations: [Crohn's disease, unspecified, without complications] Onset: 0 Resolved: 3 11-26-2021 Chronic Residual codes; unclassified (8 sources) Harmful pattern of use of nicotine; Translations: [Tobacco use] Onset: 4 06-29-2024 Episodic Skin and subcutaneous tissue infections (2 sources) Cellulitis and abscess of buttock; Translations: [Cutaneous abscess of buttock] 12-03-2017 Episodic Sprains and strains (4 sources) Strain of muscle of hip; Translations: [Strain of muscle, fascia and tendon of unspecified hip, initial encounter] 10-31-2021 Episodic Substance-related disorders (20 sources) Opioid dependence; Translations: [Opioid dependence, uncomplicated] Onset: 1 07-15-2021 Chronic Substance-related disorders (12 sources) Opioid withdrawal; Translations: [Opioid use, unspecified with withdrawal] Onset: 4 07-07-2024 Episodic Superficial injury; contusion (5 sources) Contusion of right foot, initial encounter; Translations: [Contusion of hand] Onset: 2 01-01-2020 Episodic Unclassified (1 source) Unknown / UNK(Unknown) Onset: 8 Unclassified (1 source) Fever, unspecified; Translations: [Fever, unspecified] Onset: 4 Unclassified (1 source) Consult Onset: 4 Unclassified (1 source) Alcohol withdrawal syndrome without complication (HCC); Translations: [Alcohol withdrawal syndrome without complication (HCC)] Onset: 4 Unclassified (1 source) Personal history of latent tuberculosis infection; Translations: [History of latent tuberculosis] Onset: 4 Viral infection (2 sources) Disease caused by 2019-nCoV; Translations: [COVID-19] 11-11-2022 Episodic Past or Other Problems Problem Classification Problem Date Documented Da te Episodic/Chronic Abdominal pain (20 sources) Abdominal pain; Translations: [Unspecified abdominal pain] Onset: 2 Resolved: 5 07-17-2019 Episodic Administrative/social admission (1 source) Encounter for issue of repeat prescription; Translations: [ENC FOR ISSUE REPEAT PRESCRIPTION] Onset: 2 Episodic Bacterial infection; unspecified site (20 sources) Clostridioides difficile infection; Translations: [Other bacterial infections of unspecified site] Onset: 1 07-17-2021 Episodic Fluid and electrolyte disorders (19 sources) Severe dehydration; Translations: [Dehydration] Onset: 5 Resolved: 3 11-06-2015 Episodic Hepatitis (20 sources) Viral hepatitis C; Translations: [Unspecified viral hepatitis C without hepatic coma] Onset: 2 11-26-2021 Episodic Immunizations and screening for infectious disease (5 sources) Interferon gamma assay result indeterminate; Translations: [Nonspecific reaction to cell mediated immunity measurement of gamma interferon antigen response without active tuberculosis] Episodic Intestinal obstruction without hernia (19 sources) Small bowel obstruction; Translations: [Unspecified intestinal obstruction, unspecified as to partial versus complete obstruction] Onset: 5 Resolved: 4 11-26-2021 Episodic Joint disorders and dislocations; trauma-related (2 sources) Other tear of medial meniscus, current injury, right knee, initial encounter Onset: 2 Resolved: 2 Episodic Other aftercare (1 source) Other snf (current) drug therapy; Translations: [OTH ANIMAL CARE TECHNICIAN CURRENT DRUG THERAPY] Onset: 2 Episodic Other gastrointestinal disorders (19 sources) Loose stool; Translations: [Other fecal abnormalities] Onset: 2 Resolved: 3 09-12-2023 Episodic Other gastrointestinal disorders (4 sources) Diarrhea, unspecified; Translations: [DIARRHEA UNSPECIFIED] Onset: 2 Episodic Other non-traumatic joint disorders (7 sources) Pain in right knee; Translations: [Acute pain of right knee M25.561] Onset: 1 Resolved: 2 Episodic Other screening for suspected conditions (not mental disorders or infectious disease) (20 sources) Electrocardiogram abnormal; Translations: [Abnormal electrocardiogram [ECG] [EKG]] Onset: 2 Episodic Pneumonia (except that caused by tuberculosis or sexually transmitted disease) (19 sources) Pneumonia; Translations: [Pneumonia, unspecified organism] Onset: 0 Resolved: 3 09-12-2023 Episodic Residual codes; unclassified (20 sources) History of colectomy; Translations: [Acquired absence of other specified parts of digestive tract] Onset: 0 11-06-2015 Episodic Residual codes; unclassified (19 sources) Generalized aches and pains; Translations: [Pain, unspecified] Onset: 3 Resolved: 3 07-15-2021 Episodic Residual codes; unclassified (2 sources) Other specified postprocedural states Onset: 2 Resolved: 2 Episodic Residual codes; unclassified (1 source) Personal history of other specified conditions; Translations: [PERSONAL HISTORY OTH SPEC CONDITION] Onset: 2 Episodic Residual codes; unclassified (1 source) Acquired absence of other specified parts of digestive tract; Translations: [ACQ ABSENCE OTH PART DIGESTV TRACT] Onset: 2 Episodic Syncope (19 sources) Syncope; Translations: [Syncope and collapse] Onset: 2 Resolved: 3 09-12-2023 Episodic Unclassified (1 source) ILL Onset: 8 Unclassified (19 sources) SUMMARY Onset: 5 Resolved: 3 11-26-2021 Results Test Name Value Interpretation Reference Range Facility CNOVon 07-19-2024 CNOV Normal [facility] CNOV Office Visit (PNHM) ANGELITA MOMIN ([id number]) 1990 M [place] Date Time Provider Department 07/19/24 8:00 AM CHARLEEN SILVER During your visit today, we recorded the following information about you: Pulse Respiration Blood pressure 89/minute 18/minute 147/94 Charleen Silver MD 07/19/2024 8:45 AM Signed [facility] Pain Management Department Consultation Date: July 19, 2024 - 7:56 AM Referring physician: No referring provider defined for this encounter. Angelita Momin is self referred. States Dr Krpata referred Chief Complaint: Patient presents with: Pain: Chronic pain The patient is accompanied by significant other SUBJECTIVE: Angelita Momin, is a 34 years old obese white male with a history of Crohn disease requiring multiple surgical intervention in the past who has been treated at [facility] recently for abdominal hernia repair with a mesh. Surgery took place about 3 weeks ago and he is recovering slowly. Prior to his surgery however, he was on high dose of Suboxone that he claimed it was given for him for chronic pain syndrome. Now he is weaning off the Dilaudid, his pain is returning and he does not want to go back on Suboxone but rather continue with pure agonist opiates such as hydromorphone. He is on high-dose of Lyrica 200 mg 3 times daily. He is not on any SSNRI. He is somewhat agitated as he is not happy with the experience of weaning his pain medication gradually. Evidently he was sent to pain management for adjunctive therapy but clearly 1 continue with opiates. The pain started Weeks ago, following a surgical procedure (hernia surgery 06/30/24). Has had Chronic pain for years. His pain is located in the (Chronic pain). The pain is described as Continuous Aching, Bloating, Burning, Cramping, Cutting, Pressure, Pressure Ulcer/Injury, Radiating, Sharp, Sore, Stabbing, Stabbing/Not Incision, Stiffness, Surgical/Not Incision, Tenderness, Throbbing, Tightness. The pain intensity is rated 9 The pain is exacerbated by nothing specific and relieved by Medication, Relaxation, Distractions, Education, Emotional Support/Reassurance, Exercise, Heat. Symptoms interfere with physical activity. Litigation: No. Worker's Compensation: No. Prior pain treatment has included meds. He had relief from the following interventions: None. Patient Entered Questionnaires PROMIS Score Percentiles 09/29/2023 05/13/2024 PROMIS Global Health Scale Physical Health Percentile 0 1 Mental Health Percentile 2 2 07/12/2024 Physical Health Physical Function Percentile 2 Pain Interference Percentile 0 Percentiles provide an indication of how the patient's score ranks in relation to the general population. Higher percentile rankings indicate better function/quality of life. 50th percentile is the average of the general population and indicates half of respondents had a worse score. > 31st percentile is within normal limits or better * < 31st percentile is at least ? SD worse than population, which may be clinically relevant < 16th percentile is at least 1 SD worse than population and warrants attention ALLERGIES Allergen Reactions Amoxicillin Rash Cefuroxime Diarrhea Darvon [Propoxyphen* Rash, Itching facial flushing, blurred vision Iodinated Contrast * Intolerance Pt sneezes several times after CT contrast, no itching. This is not an allergic reaction, just a intolerance.Pt also has other health conditions that may also be leading to these symptoms Morphine Hives Current Medications: HYDROmorphone 2 mg tablet Take 1 tablet by mouth every 6 hours as needed for up to 3 days. Patient should start on July 16, 2024. ALPRAZolam (XANAX) 1 mg tablet Take 1 tablet by mouth four times a day as needed for anxiety for up to 30 days. naloxone 4 mg/actuation nasal spray (NARCAN) Use 1 spray in one nostril as needed for overdose. May repeat every 2 to 3 min in alternating nostrils until medical assistance is available valproic acid (DEPAKENE) 250 mg capsule Take 1 capsule by mouth twice a day for 1 week then transition to 1 capsule before sleep for 1 week. omeprazole (PRILOSEC) 40 mg capsule 1 capsule 30 minutes before morning meal Orally Once a day for 30 days albuterol HFA (PROAIR HFA) 90 mcg/actuation inhaler 2 Puffs every 6 hours as needed for wheezing/shortness of breath. Take as directed buprenorphine-naloxone (SUBOXONE) 8-2 mg film dissolve 1 film under the tongue twice a day amphetamine-dextroamphetami ne XR (ADDERALL XR) 25 mg 24 hr capsule Take by mouth every morning. amphetamine-dextroamphetami ne 15 mg tablet TAKE 1 TABLET BY MOUTH EVERY DAY IN THE EVENING Pregabalin (LYRICA) 200 mg capsule Take 200 mg by mouth three times daily. eszopiclone (LUNESTA) 3 mg ORAL Tab Take 1 tablet by mouth at bedtime as needed. for insomnia. (Patient not taking: Reported on 06/29/2024) (more content not included)... Normal [facility] CNPNon 07-12-2024 CNPN Normal [facility] CASE MANAGEMon 07-08-2024 CASE MANAGEM Normal [facility] CNDSon 07-08-2024 CNDS Normal [facility] CONSULT PROGon 07-08-2024 CONSULT PROG Normal [facility] THERAPY NTon 07-08-2024 THERAPY NT Normal [facility] Basic metabolic 2000 panelon 07-07-2024 Anion gap [Moles/Vol] 11 mmol/L Normal 8-15 [facility] Comment on above: Order Comment: Speci men Type: BLOOD SPECIMENOrdering Facility: [facility] Address: [address] [place] [address] Performed By: #### 2 4321-2, , 2776-12 ####[facility] LABCLIA [id number] [place] [address] [place] Calcium [Mass/Vol] 8.8 mg/dL Normal 8.5-10.2 [facility] Comment on above: Order Comment: Speci men Type: BLOOD SPECIMENOrdering Facility: [facility] Address: [address] [place] [address] Result Comment: Resu lt rechecked. Performed By: #### 2 4321-2, , 2776-12 ####[facility] LABCLIA [id number] [place] [address] [place] Chloride [Moles/Vol] 104 mmol/L Normal 98-107 [facility] Comment on above: Order Comment: Speci men Type: BLOOD SPECIMENOrdering Facility: [facility] Address: [address] [place] [address] Performed By: #### 2 4321-2, , 2776-12 ####[facility] LABCLIA [id number] [place] [id number] [place] CO2 [Moles/Vol] 25 mmol/L Normal 22-30 [facility] Comment on above: Order Comment: Speci men Type: BLOOD SPECIMENOrdering Facility: [facility] Address: [address] [place] [address] Performed By: #### 2 4321-2, , 2776-12 ####[facility] LABIA [id number] [address] [address] [place] Creatinine [Mass/Vol] 0.85 mg/dL Normal 0.73-1.22 [facility] Comment on above: Order Comment: Khushbu grajeda Type: BLOOD SPECIMENOrdering Facility: [facility] Address: [address] [place] [address] Performed By: #### 2 4321-2, , 2776-12 ####[facility] LABIA [id number] [place] [address] [place] Creatinine and Glomerular filtration rate.predicted panel (S/P/Bld) 118 mL/min/1.73m??? Normal >=60 [facility] Comment on above: Order Comment: Khushbu grajeda Type: BLOOD SPECIMENOrdering Facility: [facility] Address: [address] [place] [address] Result Comment: Faye mated Glomerular Filtration Rate (eGFR) is calculated using the 2020 CKD-EPI creatinine equation. This equation utilizes serum creatinine, sex, and age as parameters. The creatinine assay has traceable calibration to isotope dilution-mass spectrometry. Refer to KDIGO guidelines for clinical interpretation. In patients with unstable renal function, e.g. those with acute kidney injury, the eGFR may not accurately reflect actual GFR. Performed By: #### 2 4321-2, , 2776-12 ####[facility] LABIA [id number] [place] [id number] [place] Glucose [Mass/Vol] 97 mg/dL Normal 74-99 [facility] Comment on above: Order Comment: Khushbu grajeda Type: BLOOD SPECIMENOrdering Facility: [facility] Address: [address] [place] [address] Result Comment: [facility] [place] [facility] Association (ADA) provides guidance for cutoff values for fasting glucose and random glucose. The ADA defines fasting as no caloric intake for at least 8 hours. Fasting plasma glucose results between 100 to 125 mg/dL indicate increased risk for diabetes (prediabetes).Fasting plasma glucose results greater than or equal to 126 mg/dL meet the criteria for diagnosis of diabetes. In the absence of unequivocal hyperglycemia, results should be confirmed by repeat testing. In a patient with classic symptoms of hyperglycemia or hyperglycemic crisis, random plasma glucose results greater than or equal to 200 mg/dL meet the criteria for diagnosis of diabetes.Reference: Standards of Medical Care in Diabetes 2016, [place] [employer]. Diabetes Care. 2016.39(Suppl 1). Performed By: #### 2 4320-2, , 2776-12 ####[facility] LABCLIA [id number] [address] [address] [place] Potassium [Moles/Vol] 3.5 mmol/L Low 3.7-5.1 [facility] Comment on above: Order Comment: Speci men Type: BLOOD SPECIMENOrdering Facility: [facility] Address: [address] [place] [address] Performed By: #### 2 4321-01, , 2776-12 ####[facility] LABIA [id number] [place] [address] [place] Sodium [Moles/Vol] 140 mmol/L Normal 136-144 [facility] Comment on above: Order Comment: Speci men Type: BLOOD SPECIMENOrdering Facility: [facility] Address: [address] [place] [address] Performed By: #### 2 4320-2, , 2776-12 ####[facility] LABIA [id number] [place] [id number] [place] Urea nitrogen [Mass/Vol] 10 mg/dL Normal 9-24 [facility] Comment on above: Order Comment: Speci men Type: BLOOD SPECIMENOrdering Facility: [facility] Address: [address] [place] [address] Performed By: #### 2 432-2, , 2776-12 ####[facility] LABCLIA [id number] [place] [address] [place] CBC W Auto Differential pane l (Bld)on 07-07-2024 Basophils (Bld) [#/Vol] 0.06 10*3/uL Normal <0.11 [facility] Comment on above: Order Comment: Speci men Type: BLOOD SPECIMENOrdering Facility: [facility] Address: [address] [place] [address] Performed By: #### 5 7021-8 ####[facility] LABCLIA [id number] [place] [address] [place] Basophils/100 WBC (Bld) 0.8 % Normal [facility] Comment on above: Order Comment: Speci men Type: BLOOD SPECIMENOrdering Facility: [facility] Address: [address] [place] [address] Performed By: #### 5 7021-8 ####[facility] LABCLIA [id number] [place] [address] [place] Differential cell count method Nom (Bld) Auto Normal [facility] Comment on above: Order Comment: Speci men Type: BLOOD SPECIMENOrdering Facility: [facility] Address: [address] [place] [address] Performed By: #### 5 7021-8 ####[facility] LABCLIA [id number] [place] [address] [place] Eosinophils (Bld) [#/Vol] 0.41 10*3/uL Normal <0.46 [facility] Comment on above: Order Comment: Speci men Type: BLOOD SPECIMENOrdering Facility: [facility] Address: [address] [place] [address] Performed By: #### 5 7021-8 ####[facility] LABCLIA [id number] [place] [address] [place] Eosinophils/100 WBC (Bld) 5.5 % Normal [facility] Comment on above: Order Comment: Speci men Type: BLOOD SPECIMENOrdering Facility: [facility] Address: [address] [place] [address] Performed By: #### 5 7021-8 ####[facility] LABCLIA [id number] [place] [address] [place] Erythrocyte distribution width (RBC) [Ratio] 13.8 % Normal 11.5-15.0 [facility] Comment on above: Order Comment: Speci men Type: BLOOD SPECIMENOrdering Facility: [facility] Address: [address] [place] [address] Performed By: #### 5 7021-8 ####[facility] LABCLIA [id number] [place] [address] [place] Hematocrit (Bld) [Volume fraction] 41.1 % Normal 39.0-51.0 [facility] Comment on above: Order Comment: Speci men Type: BLOOD SPECIMENOrdering Facility: [facility] Address: [address] [place] [address] Performed By: #### 5 7021-8 ####[facility] LABCLIA [id number] [place] [address] [place] Hemoglobin (Bld) [Mass/Vol] 13.4 g/dL Normal 13.0-17.0 [facility] Comment on above: Order Comment: Speci men Type: BLOOD SPECIMENOrdering Facility: [facility] Address: [address] [place] [address] Performed By: #### 5 7021-8 ####[facility] LABCLIA [id number] [place] [address] [place] Immature granulocytes (Bld) [#/Vol] 0.18 10*3/uL High <0.10 [facility] Comment on above: Order Comment: Speci men Type: BLOOD SPECIMENOrdering Facility: [facility] Address: [address] [place] [address] Performed By: #### 5 7021-8 ####[facility] LABCLIA [id number] [place] [address] [place] Immature granulocytes/100 WBC (Bld) 2.4 % Normal [facility] Comment on above: Order Comment: Speci men Type: BLOOD SPECIMENOrdering Facility: [facility] Address: [address] [place] [address] Performed By: #### 5 7021-8 ####[facility] LABCLIA [id number] [place] [address] [place] Lymphocytes (Bld) [#/Vol] 1.35 10*3/uL Normal 1.00-4.00 [facility] Comment on above: Order Comment: Speci men Type: BLOOD SPECIMENOrdering Facility: [facility] Address: [address] [place] [address] Performed By: #### 5 7021-8 ####[facility] LABCLIA [id number] [place] [address] [place] Lymphocytes/100 WBC (Bld) 18.1 % Normal [facility] Comment on above: Order Comment: Speci men Type: BLOOD SPECIMENOrdering Facility: [facility] Address: [address] [place] [address] Performed By: #### 5 7021-8 ####[facility] LABCLIA [id number] [place] [address] [place] MCH (RBC) [Entitic mass] 26.6 pg Normal 26.0-34.0 [facility] Comment on above: Order Comment: Speci men Type: BLOOD SPECIMENOrdering Facility: [facility] Address: [address] [place] [address] Performed By: #### 5 7021-8 ####[facility] LABCLIA [id number] [place] [address] [place] MCHC (RBC) [Mass/Vol] 32.6 g/dL Normal 30.5-36.0 [facility] Comment on above: Order Comment: Speci men Type: BLOOD SPECIMENOrdering Facility: [facility] Address: [address] [place] [address] Performed By: #### 5 7021-8 ####[facility] LABIA [id number] [place] [address] [place] MCV (RBC) [Entitic vol] 81.7 fL Normal 80.0-100.0 [facility] Comment on above: Order Comment: Speci men Type: BLOOD SPECIMENOrdering Facility: [facility] Address: [address] [place] [address] Performed By: #### 5 7021-8 ####[facility] LABIA [id number] [place] [address] [place] Monocytes (Bld) [#/Vol] 0.68 10*3/uL Normal <0.87 [facility] Comment on above: Order Comment: Speci men Type: BLOOD SPECIMENOrdering Facility: [facility] Address: [address] [place] [address] Performed By: #### 5 7021-8 ####[facility] LABIA [id number] [place] [address] [place] Monocytes/100 WBC (Bld) 9.1 % Normal [facility] Comment on above: Order Comment: Speci men Type: BLOOD SPECIMENOrdering Facility: [facility] Address: [address] [place] [address] Performed By: #### 5 7021-8 ####[facility] LABIA [id number] [place] [address] [place] Neutrophils (Bld) [#/Vol] 4.78 10*3/uL Normal 1.45-7.50 [facility] Comment on above: Order Comment: Speci men Type: BLOOD SPECIMENOrdering Facility: [facility] Address: [address] [place] [address] Performed By: #### 5 7021-8 ####[facility] LABCLIA [id number] [place] [address] [place] Neutrophils/100 WBC (Bld) 64.1 % Normal [facility] Comment on above: Order Comment: Speci men Type: BLOOD SPECIMENOrdering Facility: [facility] Address: [address] [place] [address] Performed By: #### 5 7021-8 ####[facility] LABCLIA [id number] [place] [address] [place] Nucleated RBC (Bld) [#/Vol] 10*3/uL Normal <0.01 [facility] Comment on above: Order Comment: Speci men Type: BLOOD SPECIMENOrdering Facility: [facility] Address: [address] [place] [address] Performed By: #### 5 7021-8 ####[facility] LABCLIA [id number] [place] [address] [place] Nucleated RBC/100 WBC (Bld) [Ratio] 0.0 /100 WBC Normal [facility] Comment on above: Order Comment: Speci men Type: BLOOD SPECIMENOrdering Facility: [facility] Address: [address] [place] [address] Performed By: #### 5 7021-8 ####[facility] LABIA [id number] [place] [address] [place] Platelet mean volume (Bld) [Entitic vol] 11.9 fL Normal 9.0-12.7 [facility] Comment on above: Order Comment: Speci men Type: BLOOD SPECIMENOrdering Facility: [facility] Address: [address] [place] [address] Performed By: #### 5 7021-8 ####[facility] LABCLIA [id number] [place] [address] [place] Platelets (Bld) [#/Vol] 164 10*3/uL Normal 150-400 [facility] Comment on above: Order Comment: Speci men Type: BLOOD SPECIMENOrdering Facility: [facility] Address: [address] [place] [address] Performed By: #### 5 7021-8 ####[facility] LABCLIA [id number] [place] [address] [place] RBC (Bld) [#/Vol] 5.03 10*6/uL Normal 4.20-6.00 [facility] Comment on above: Order Comment: Speci men Type: BLOOD SPECIMENOrdering Facility: [facility] Address: [address] [place] [address] Performed By: #### 5 7021-8 ####[facility] LABCLIA [id number] [place] [address] [place] WBC (Bld) [#/Vol] 7.46 10*3/uL Normal 3.70-11.00 [facility] Comment on above: Order Comment: Speci men Type: BLOOD SPECIMENOrdering Facility: [facility] Address: [address] [place] [address] Performed By: #### 5 7021-8 ####[facility] LABCLIA [id number] [place] [address] [place] CONSULT PROGon 07-07-2024 CONSULT PROG Normal [facility] Magnesium SerPl-mCncon 07-07 Magnesium [Mass/Vol] 2.0 mg/dL Normal 1.7-2.3 [facility] Comment on above: Order Comment: Speci men Type: BLOOD SPECIMENOrdering Facility: [facility] Address: [address] [place] [address] Performed By: #### 2 4321-2, 17398-9, 2777-1 ####[facility] LABCLIA [id number] [place] [address] [place] NURSING PROGon 07-07-2024 NURSING PROG Normal [facility] Phosphate SerPl-mCncon 07-07 Phosphate [Mass/Vol] 3.1 mg/dL Normal 2.7-4.8 [facility] Comment on above: Order Comment: Speci men Type: BLOOD SPECIMENOrdering Facility: [facility] Address: [address] [place] [address] Performed By: #### 2 4321-2, 67563-5, 2777-1 ####[facility] LABCLIA [id number] [place] [address] [place] THERAPY NTon 07-07-2024 THERAPY NT Normal [facility] Basic metabolic 2000 panelon 07-06-2024 Anion gap [Moles/Vol] 10 mmol/L Normal 8-15 [facility] Comment on above: Order Comment: Speci men Type: BLOOD SPECIMENOrdering Facility: [facility] Address: [address] [place] [address] Performed By: #### 2 4321-2 ####[facility] LABCLIA [id number] [place] [address] [place] Calcium [Mass/Vol] 7.1 mg/dL Low 8.5-10.2 [facility] Comment on above: Order Comment: Speci men Type: BLOOD SPECIMENOrdering Facility: [facility] Address: [address] [place] [address] Performed By: #### 2 4321-2 ####[facility] LABCLIA [id number] [place] [address] [place] Chloride [Moles/Vol] 109 mmol/L High 98-107 [facility] Comment on above: Order Comment: Speci men Type: BLOOD SPECIMENOrdering Facility: [facility] Address: [address] [place] [address] Performed By: #### 2 4321-2 ####[facility] LABCLIA [id number] [place] [address] [place] CO2 [Moles/Vol] 24 mmol/L Normal 22-30 [facility] Comment on above: Order Comment: Speci men Type: BLOOD SPECIMENOrdering Facility: [facility] Address: [address] [place] [address] Performed By: #### 2 4321-2 ####[facility] LABCLIA [id number] [facility] [place] [address] [place] Creatinine [Mass/Vol] 0.77 mg/dL Normal 0.73-1.22 [facility] Comment on above: Order Comment: Speci men Type: BLOOD SPECIMENOrdering Facility: [facility] Address: [address] [place] [address] Performed By: #### 2 4321-2 ####[facility] LABCLIA [id number] [facility] [place] [address] [place] Creatinine and Glomerular filtration rate.predicted panel (S/P/Bld) 121 mL/min/1.73m??? Normal >=60 [facility] Comment on above: Order Comment: Speci men Type: BLOOD SPECIMENOrdering Facility: [facility] Address: [address] [place] [address] Result Comment: Faye mated Glomerular Filtration Rate (eGFR) is calculated using the 2020 CKD-EPI creatinine equation. This equation utilizes serum creatinine, sex, and age as parameters. The creatinine assay has traceable calibration to isotope dilution-mass spectrometry. Refer to KDIGO guidelines for clinical interpretation. In patients with unstable renal function, e.g. those with acute kidney injury, the eGFR may not accurately reflect actual GFR. Performed By: #### 2 4321-2 ####[facility] LABCLIA [id number] [facility] [place] [address] [place] Glucose [Mass/Vol] 78 mg/dL Normal 74-99 [facility] Comment on above: Order Comment: Speci men Type: BLOOD SPECIMENOrdering Facility: [facility] Address: [address] [place] [address] Result Comment: The [place] Diabetes Association (ADA) provides guidance for cutoff values for fasting glucose and random glucose. The ADA defines fasting as no caloric intake for at least 8 hours. Fasting plasma glucose results between 100 to 125 mg/dL indicate increased risk for diabetes (prediabetes).Fasting plasma glucose results greater than or equal to 126 mg/dL meet the criteria for diagnosis of diabetes. In the absence of unequivocal hyperglycemia, results should be confirmed by repeat testing. In a patient with classic symptoms of hyperglycemia or hyperglycemic crisis, random plasma glucose results greater than or equal to 200 mg/dL meet the criteria for diagnosis of diabetes.Reference: Standards of Medical Care in Diabetes 2016, [place] [employer]. Diabetes Care. 2016.39(Suppl 1). Performed By: #### 2 4321-2 ####[facility] LABCLIA [id number] [place] [address] [place] Potassium [Moles/Vol] 2.8 mmol/L Low 3.7-5.1 [facility] Comment on above: Order Comment: Speci men Type: BLOOD SPECIMENOrdering Facility: [facility] Address: [address] [place] [address] Performed By: #### 2 4321-2 ####[facility] LABCLIA [id number] [place] [address] [place] Sodium [Moles/Vol] 143 mmol/L Normal 136-144 [facility] Comment on above: Order Comment: Speci men Type: BLOOD SPECIMENOrdering Facility: [facility] Address: [address] [place] [address] Performed By: #### 2 1-2 ####[facility] LABCLIA [id number] [place] [address] [place] Urea nitrogen [Mass/Vol] 13 mg/dL Normal 9-24 [facility] Comment on above: Order Comment: Speci men Type: BLOOD SPECIMENOrdering Facility: [facility] Address: [address] [place] [address] Performed By: #### 2 4321-2 ####[facility] LABCLIA [id number] [place] [address] [place] Anion gap [Moles/Vol] 16 mmol/L High 8-15 [facility] Comment on above: Order Comment: Speci men Type: BLOOD SPECIMENOrdering Facility: [facility] Address: [address] [place] [address] Performed By: #### 2 4321-2, 01622-5 ####[facility] LABCLIA [id number] [place] [address] [place] Calcium [Mass/Vol] 8.6 mg/dL Normal 8.5-10.2 [facility] Comment on above: Order Comment: Speci men Type: BLOOD SPECIMENOrdering Facility: [facility] Address: [address] [place] [address] Performed By: #### 2 4321-2, 49485-5 ####[facility] LABCLIA [id number] [place] [address] [place] Chloride [Moles/Vol] 101 mmol/L Normal 98-107 [facility] Comment on above: Order Comment: Speci men Type: BLOOD SPECIMENOrdering Facility: [facility] Address: [address] [place] [address] Performed By: #### 2 4321-2, 97124-4 ####[facility] LABCLIA [id number] [place] [address] [place] CO2 [Moles/Vol] 26 mmol/L Normal 22-30 [facility] Comment on above: Order Comment: Speci men Type: BLOOD SPECIMENOrdering Facility: [facility] Address: [address] [place] [address] Performed By: #### 2 4321-2, 74001-6 ####[facility] LABCLIA [id number] [place] [id number] [place] Creatinine [Mass/Vol] 0.89 mg/dL Normal 0.73-1.22 [facility] Comment on above: Order Comment: Speci men Type: BLOOD SPECIMENOrdering Facility: [facility] Address: [address] [place] [address] Performed By: #### 2 4321-2, 98513-4 ####[facility] LABCLIA [id number] [place] [address] [place] Creatinine and Glomerular filtration rate.predicted panel (S/P/Bld) 116 mL/min/1.73m??? Normal >=60 [facility] Comment on above: Order Comment: Khushbu grajeda Type: BLOOD SPECIMENOrdering Facility: [facility] Address: [address] [place] [address] Result Comment: Faye mated Glomerular Filtration Rate (eGFR) is calculated using the 2020 CKD-EPI creatinine equation. This equation utilizes serum creatinine, sex, and age as parameters. The creatinine assay has traceable calibration to isotope dilution-mass spectrometry. Refer to KDIGO guidelines for clinical interpretation. In patients with unstable renal function, e.g. those with acute kidney injury, the eGFR may not accurately reflect actual GFR. Performed By: #### 2 4321-2, 87942-2 ####[facility] LABIA [id number] [place] [address] [place] Glucose [Mass/Vol] 83 mg/dL Normal 74-99 [facility] Comment on above: Order Comment: Khushbu grajeda Type: BLOOD SPECIMENOrdering Facility: [facility] Address: [address] [place] [address] Result Comment: The [place] Diabetes Association (ADA) provides guidance for cutoff values for fasting glucose and random glucose. The ADA defines fasting as no caloric intake for at least 8 hours. Fasting plasma glucose results between 100 to 125 mg/dL indicate increased risk for diabetes (prediabetes).Fasting plasma glucose results greater than or equal to 126 mg/dL meet the criteria for diagnosis of diabetes. In the absence of unequivocal hyperglycemia, results should be confirmed by repeat testing. In a patient with classic symptoms of hyperglycemia or hyperglycemic crisis, random plasma glucose results greater than or equal to 200 mg/dL meet the criteria for diagnosis of diabetes.Reference: Standards of Medical Care in Diabetes 2016, [place] [employer]. Diabetes Care. 2016.39(Suppl 1). Performed By: #### 2 4321-2, 92884-8 ####[facility] LABCLIA [id number] [place] [address] [place] Potassium [Moles/Vol] 3.5 mmol/L Low 3.7-5.1 [facility] Comment on above: Order Comment: Speci men Type: BLOOD SPECIMENOrdering Facility: [facility] Address: [address] [place] [address] Performed By: #### 2 4321-2, 81172-6 ####[facility] LABIA [id number] [place] [address] [place] Sodium [Moles/Vol] 143 mmol/L Normal 136-144 [facility] Comment on above: Order Comment: Speci men Type: BLOOD SPECIMENOrdering Facility: [facility] Address: [address] [place] [address] Performed By: #### 2 4321-2, 21475-2 ####[facility] LABIA [id number] [place] [address] [place] Urea nitrogen [Mass/Vol] 15 mg/dL Normal 9-24 [facility] Comment on above: Order Comment: Speci men Type: BLOOD SPECIMENOrdering Facility: [facility] Address: [address] [place] [address] Performed By: #### 2 4321-2, 45221-2 ####[facility] LABIA [id number] [place] [id number] [place] CASE MANAGEMon 07-06-2024 CASE MANAGEM Normal [facility] CASE MANAGEM Normal [facility] CBC W Auto Differential pane l (Bld)on 07-06-2024 Basophils (Bld) [#/Vol] 0.04 10*3/uL Normal <0.11 [facility] Comment on above: Order Comment: Speci men Type: BLOOD SPECIMENOrdering Facility: [facility] Address: [address] [place] [address] Performed By: #### 5 7021-8 ####[facility] LABCLIA [id number] [place] [address] [place] Basophils/100 WBC (Bld) 0.8 % Normal [facility] Comment on above: Order Comment: Speci men Type: BLOOD SPECIMENOrdering Facility: [facility] Address: [address] [place] [address] Performed By: #### 5 7021-8 ####[facility] LABCLIA [id number] [place] [address] [place] Differential cell count method Nom (Bld) Auto Normal [facility] Comment on above: Order Comment: Speci men Type: BLOOD SPECIMENOrdering Facility: [facility] Address: [address] [place] [address] Performed By: #### 5 7021-8 ####[facility] LABCLIA [id number] [place] [address] [place] Eosinophils (Bld) [#/Vol] 0.42 10*3/uL Normal <0.46 [facility] Comment on above: Order Comment: Speci men Type: BLOOD SPECIMENOrdering Facility: [facility] Address: [address] [place] [address] Performed By: #### 5 7021-8 ####[facility] LABCLIA [id number] [place] [address] [place] Eosinophils/100 WBC (Bld) 7.9 % Normal [facility] Comment on above: Order Comment: Speci men Type: BLOOD SPECIMENOrdering Facility: [facility] Address: [address] [place] [address] Performed By: #### 5 7021-8 ####[facility] LABCLIA [id number] [place] [address] [place] Erythrocyte distribution width (RBC) [Ratio] 13.5 % Normal 11.5-15.0 [facility] Comment on above: Order Comment: Speci men Type: BLOOD SPECIMENOrdering Facility: [facility] Address: [address] [place] [address] Performed By: #### 5 7021-8 ####[facility] LABCLIA [id number] [place] [address] [place] Hematocrit (Bld) [Volume fraction] 37.4 % Low 39.0-51.0 [facility] Comment on above: Order Comment: Speci men Type: BLOOD SPECIMENOrdering Facility: [facility] Address: [address] [place] [address] Performed By: #### 5 7021-8 ####[facility] LABIA [id number] [place] [address] [place] Hemoglobin (Bld) [Mass/Vol] 12.0 g/dL Low 13.0-17.0 [facility] Comment on above: Order Comment: Speci men Type: BLOOD SPECIMENOrdering Facility: [facility] Address: [address] [place] [address] Performed By: #### 5 7021-8 ####[facility] LABIA [id number] [place] [address] [place] Immature granulocytes (Bld) [#/Vol] 0.05 10*3/uL Normal <0.10 [facility] Comment on above: Order Comment: Speci men Type: BLOOD SPECIMENOrdering Facility: [facility] Address: [address] [place] [address] Performed By: #### 5 7021-8 ####[facility] LABIA [id number] [place] [address] [place] Immature granulocytes/100 WBC (Bld) 0.9 % Normal [facility] Comment on above: Order Comment: Speci men Type: BLOOD SPECIMENOrdering Facility: [facility] Address: [address] [place] [address] Performed By: #### 5 7021-8 ####[facility] LABCLIA [id number] [place] [address] [place] Lymphocytes (Bld) [#/Vol] 0.94 10*3/uL Low 1.00-4.00 [facility] Comment on above: Order Comment: Speci men Type: BLOOD SPECIMENOrdering Facility: [facility] Address: [address] [place] [address] Performed By: #### 5 7021-8 ####[facility] LABCLIA [id number] [place] [address] [place] Lymphocytes/100 WBC (Bld) 17.6 % Normal [facility] Comment on above: Order Comment: Speci men Type: BLOOD SPECIMENOrdering Facility: [facility] Address: [address] [place] [address] Performed By: #### 5 7021-8 ####[facility] LABCLIA [id number] [place] [address] [place] MCH (RBC) [Entitic mass] 27.2 pg Normal 26.0-34.0 [facility] Comment on above: Order Comment: Speci men Type: BLOOD SPECIMENOrdering Facility: [facility] Address: [address] [place] [address] Performed By: #### 5 7021-8 ####[facility] LABCLIA [id number] [place] [address] [place] MCHC (RBC) [Mass/Vol] 32.1 g/dL Normal 30.5-36.0 [facility] Comment on above: Order Comment: Speci men Type: BLOOD SPECIMENOrdering Facility: [facility] Address: [address] [place] [address] Performed By: #### 5 7021-8 ####[facility] LABCLIA [id number] [place] [address] [place] MCV (RBC) [Entitic vol] 84.8 fL Normal 80.0-100.0 [facility] Comment on above: Order Comment: Speci men Type: BLOOD SPECIMENOrdering Facility: [facility] Address: [address] [place] [address] Performed By: #### 5 7021-8 ####[facility] LABCLIA [id number] [place] [address] [place] Monocytes (Bld) [#/Vol] 0.64 10*3/uL Normal <0.87 [facility] Comment on above: Order Comment: Speci men Type: BLOOD SPECIMENOrdering Facility: [facility] Address: [address] [place] [address] Performed By: #### 5 7021-8 ####[facility] LABCLIA [id number] [place] [address] [place] Monocytes/100 WBC (Bld) 12.0 % Normal [facility] Comment on above: Order Comment: Speci men Type: BLOOD SPECIMENOrdering Facility: [facility] Address: [address] [place] [address] Performed By: #### 5 7021-8 ####[facility] LABCLIA [id number] [place] [address] [place] Neutrophils (Bld) [#/Vol] 3.24 10*3/uL Normal 1.45-7.50 [facility] Comment on above: Order Comment: Speci men Type: BLOOD SPECIMENOrdering Facility: [facility] Address: [address] [place] [address] Performed By: #### 5 7021-8 ####[facility] LABCLIA [id number] [place] [address] [place] Neutrophils/100 WBC (Bld) 60.8 % Normal [facility] Comment on above: Order Comment: Speci men Type: BLOOD SPECIMENOrdering Facility: [facility] Address: [address] [place] [address] Performed By: #### 5 7021-8 ####[facility] LABCLIA [id number] [place] [address] [place] Nucleated RBC (Bld) [#/Vol] 10*3/uL Normal <0.01 [facility] Comment on above: Order Comment: Speci men Type: BLOOD SPECIMENOrdering Facility: [facility] Address: [address] [place] [address] Performed By: #### 5 7021-8 ####[facility] LABCLIA [id number] [place] [address] [place] Nucleated RBC/100 WBC (Bld) [Ratio] 0.0 /100 WBC Normal [facility] Comment on above: Order Comment: Speci men Type: BLOOD SPECIMENOrdering Facility: [facility] Address: [address] [place] [address] Performed By: #### 5 7021-8 ####[facility] LABCLIA [id number] [place] [address] [place] Platelet mean volume (Bld) [Entitic vol] 12.9 fL High 9.0-12.7 [facility] Comment on above: Order Comment: Speci men Type: BLOOD SPECIMENOrdering Facility: [facility] Address: [address] [place] [address] Performed By: #### 5 7021-8 ####[facility] LABCLIA [id number] [place] [address] [place] Platelets (Bld) [#/Vol] 133 10*3/uL Low 150-400 [facility] Comment on above: Order Comment: Speci men Type: BLOOD SPECIMENOrdering Facility: [facility] Address: [address] [place] [address] Performed By: #### 5 7021-8 ####[facility] LABCLIA [id number] [place] [address] [place] RBC (Bld) [#/Vol] 4.41 10*6/uL Normal 4.20-6.00 [facility] Comment on above: Order Comment: Speci men Type: BLOOD SPECIMENOrdering Facility: [facility] Address: [address] [place] [address] Performed By: #### 5 7021-8 ####[facility] LABCLIA [id number] [place] [address] [place] WBC (Bld) [#/Vol] 5.33 10*3/uL Normal 3.70-11.00 [facility] Comment on above: Order Comment: Speci men Type: BLOOD SPECIMENOrdering Facility: [facility] Address: [address] [place] [address] Performed By: #### 5 7021-8 ####[facility] LABCLIA [id number] [place] [address] [place] Basophils (Bld) [#/Vol] 0.10 10*3/uL Normal <0.11 [facility] Comment on above: Order Comment: Speci men Type: BLOOD SPECIMENOrdering Facility: [facility] Address: [address] [place] [address] Performed By: #### 5 7021-8 ####[facility] LABCLIA [id number] [place] [address] [place] Basophils/100 WBC (Bld) 1.8 % Normal [facility] Comment on above: Order Comment: Speci men Type: BLOOD SPECIMENOrdering Facility: [facility] Address: [address] [place] [address] Performed By: #### 5 7021-8 ####[facility] LABCLIA [id number] [place] [address] [place] Differential cell count method Nom (Bld) Manual Normal [facility] Comment on above: Order Comment: Speci men Type: BLOOD SPECIMENOrdering Facility: [facility] Address: [address] [place] [address] Performed By: #### 5 7021-8 ####[facility] LABCLIA [id number] [place] [address] [place] Eosinophils (Bld) [#/Vol] 0.90 10*3/uL High <0.46 [facility] Comment on above: Order Comment: Speci men Type: BLOOD SPECIMENOrdering Facility: [facility] Address: [address] [place] [address] Performed By: #### 5 7021-8 ####[facility] LABCLIA [id number] [place] [address] [place] Eosinophils/100 WBC (Bld) 15.8 % Normal [facility] Comment on above: Order Comment: Speci men Type: BLOOD SPECIMENOrdering Facility: [facility] Address: [address] [place] [address] Performed By: #### 5 7021-8 ####[facility] LABCLIA [id number] [place] [address] [place] Erythrocyte distribution width (RBC) [Ratio] 14.0 % Normal 11.5-15.0 [facility] Comment on above: Order Comment: Speci men Type: BLOOD SPECIMENOrdering Facility: [facility] Address: [address] [place] [address] Performed By: #### 5 7021-8 ####[facility] LABCLIA [id number] [place] [address] [place] Hematocrit (Bld) [Volume fraction] 45.9 % Normal 39.0-51.0 [facility] Comment on above: Order Comment: Speci men Type: BLOOD SPECIMENOrdering Facility: [facility] Address: [address] [place] [address] Performed By: #### 5 7021-8 ####[facility] LABCLIA [id number] [place] [address] [place] Hemoglobin (Bld) [Mass/Vol] 14.9 g/dL Normal 13.0-17.0 [facility] Comment on above: Order Comment: Speci men Type: BLOOD SPECIMENOrdering Facility: [facility] Address: [address] [place] [address] Performed By: #### 5 7021-8 ####[facility] LABCLIA [id number] [place] [address] [place] Lymphocytes (Bld) [#/Vol] 1.50 10*3/uL Normal 1.00-4.00 [facility] Comment on above: Order Comment: Speci men Type: BLOOD SPECIMENOrdering Facility: [facility] Address: [address] [place] [address] Performed By: #### 5 7021-8 ####[facility] LABCLIA [id number] [place] [address] [place] Lymphocytes/100 WBC (Bld) 26.3 % Normal [facility] Comment on above: Order Comment: Speci men Type: BLOOD SPECIMENOrdering Facility: [facility] Address: [address] [place] [address] Performed By: #### 5 7021-8 ####[facility] LABIA [id number] [place] [address] [place] MCH (RBC) [Entitic mass] 27.0 pg Normal 26.0-34.0 [facility] Comment on above: Order Comment: Speci men Type: BLOOD SPECIMENOrdering Facility: [facility] Address: [address] [place] [address] Performed By: #### 5 7021-8 ####[facility] LABCLIA [id number] [place] [address] [place] MCHC (RBC) [Mass/Vol] 32.5 g/dL Normal 30.5-36.0 [facility] Comment on above: Order Comment: Speci men Type: BLOOD SPECIMENOrdering Facility: [facility] Address: [address] [place] [address] Performed By: #### 5 7021-8 ####[facility] LABIA [id number] [place] [address] [place] MCV (RBC) [Entitic vol] 83.3 fL Normal 80.0-100.0 [facility] Comment on above: Order Comment: Speci men Type: BLOOD SPECIMENOrdering Facility: [facility] Address: [address] [place] [address] Performed By: #### 5 7021-8 ####[facility] LABIA [id number] [place] [address] [place] Monocytes (Bld) [#/Vol] 0.75 10*3/uL Normal <0.87 [facility] Comment on above: Order Comment: Speci men Type: BLOOD SPECIMENOrdering Facility: [facility] Address: [address] [place] [address] Performed By: #### 5 7021-8 ####[facility] LABIA [id number] [place] [address] [place] Monocytes/100 WBC (Bld) 13.2 % Normal [facility] Comment on above: Order Comment: Speci men Type: BLOOD SPECIMENOrdering Facility: [facility] Address: [address] [place] [address] Performed By: #### 5 7021-8 ####[facility] LABIA [id number] [place] [address] [place] Neutrophils (Bld) [#/Vol] 2.45 10*3/uL Normal 1.45-7.50 [facility] Comment on above: Order Comment: Speci men Type: BLOOD SPECIMENOrdering Facility: [facility] Address: [address] [place] [address] Performed By: #### 5 7021-8 ####[facility] LABCLIA [id number] [place] [address] [place] Neutrophils/100 WBC (Bld) 42.9 % Normal [facility] Comment on above: Order Comment: Speci men Type: BLOOD SPECIMENOrdering Facility: [facility] Address: [address] [place] [address] Performed By: #### 5 7021-8 ####[facility] LABCLIA [id number] [place] [address] [place] Nucleated RBC (Bld) [#/Vol] 10*3/uL Normal <0.01 [facility] Comment on above: Order Comment: Speci men Type: BLOOD SPECIMENOrdering Facility: [facility] Address: [address] [place] [address] Performed By: #### 5 7021-8 ####[facility] LABIA [id number] [place] [address] [place] Nucleated RBC/100 WBC (Bld) [Ratio] 0.0 /100 WBC Normal [facility] Comment on above: Order Comment: Speci men Type: BLOOD SPECIMENOrdering Facility: [facility] Address: [address] [place] [address] Performed By: #### 5 7021-8 ####[facility] LABIA [id number] [place] [address] [place] Platelet mean volume (Bld) [Entitic vol] 12.3 fL Normal 9.0-12.7 [facility] Comment on above: Order Comment: Speci men Type: BLOOD SPECIMENOrdering Facility: [facility] Address: [address] [place] [address] Performed By: #### 5 7021-8 ####[facility] LABIA [id number] [place] [address] [place] Platelets (Bld) [#/Vol] 158 10*3/uL Normal 150-400 [facility] Comment on above: Order Comment: Speci men Type: BLOOD SPECIMENOrdering Facility: [facility] Address: [address] [place] [address] Performed By: #### 5 7021-8 ####[facility] LABCLIA [id number] [place] [address] [place] Platelets Estimate (Bld) [#/Vol] Adequate Normal [facility] Comment on above: Order Comment: Speci men Type: BLOOD SPECIMENOrdering Facility: [facility] Address: [address] [place] [address] Performed By: #### 5 7021-8 ####[facility] LABCLIA [id number] [place] [address] [place] Polychromasia LM Ql (Bld) Slight Normal [facility] Comment on above: Order Comment: Speci men Type: BLOOD SPECIMENOrdering Facility: [facility] Address: [address] [place] [address] Performed By: #### 5 7021-8 ####[facility] LABCLIA [id number] [place] [address] [place] RBC (Bld) [#/Vol] 5.51 10*6/uL Normal 4.20-6.00 [facility] Comment on above: Order Comment: Speci men Type: BLOOD SPECIMENOrdering Facility: [facility] Address: [address] [place] [address] Performed By: #### 5 7021-8 ####[facility] LABCLIA [id number] [place] [address] [place] RED CELL MORPH Reviewed: unremarkable Normal [facility] Comment on above: Order Comment: Speci men Type: BLOOD SPECIMENOrdering Facility: [facility] Address: [address] [place] [address] Performed By: #### 5 7021-8 ####[facility] LABCLIA [id number] [place] [id number] [place] WBC (Bld) [#/Vol] 5.71 10*3/uL Normal 3.70-11.00 [facility] Comment on above: Order Comment: Speci men Type: BLOOD SPECIMENOrdering Facility: [facility] Address: [address] [place] [address] Performed By: #### 5 7021-8 ####[facility] LABCLIA [id number] [place] [address] [place] CONSULT PROGon 07-06-2024 CONSULT PROG Normal [facility] CONSULT PROG Normal [facility] CRP SerPl-mCncon 07-06-2024 CRP [Mass/Vol] 11.4 mg/dL High <0.9 [facility] Comment on above: Order Comment: Speci men Type: BLOOD SPECIMENOrdering Facility: [facility] Address: [address] [place] [address] Performed By: #### 3 034-6, 1988-03, 2776-12, ####[facility] LABIA [id number] [place] [address] [place] CT ABD/PEL W IVCONon 024 CT ABD/PEL W IVCON Normal [facility] Magnesium SerPl-mCncon 07-06 Magnesium [Mass/Vol] 2.1 mg/dL Normal 1.7-2.3 [facility] Comment on above: Order Comment: Speci men Type: BLOOD SPECIMENOrdering Facility: [facility] Address: [address] [place] [address] Performed By: #### 3 034-6, 1988-03, 2776-12, ####[facility] LABCLIA [id number] [place] [id number] [place] NURSING PROGon 07-06-2024 NURSING PROG Normal [facility] NUTRITIONon 07-06-2024 NUTRITION Normal [facility] PT panel Coag (PPP)on 2023 INR Coag (PPP) [Relative time] 1.0 {INR} Normal 0.9-1.3 [facility] Comment on above: Order Comment: Khushbu grajeda Type: BLOOD SPECIMENOrdering Facility: [facility] Address: [address] [place] [address] Result Comment: Salma min K Antagonist (VKA) Therapeutic Range: INR 2 to 3 (Target INR of 2.5)Note: For patients treated with VKA drugs, such as warfarin, the [place] [employer] 2012 Guideline recommends a therapeutic INR range of 2 to 3 (target INR of 2.5). This recommendation includes high-risk patients with antiphospholipid syndrome with previous arterial or venous thromboembolism, current-generation mechanical or bioprosthetic aortic heart valve replacement.Note: Patients with mechanical aortic valve replacement and additional risk factors for thromboembolic events (atrial fibrillation, previous thromboembolism, LV dysfunction, hypercoagulable conditions) or an older generation mechanical AVR (i.e., ball in-Cage) or any mechanical MVR should have a INR therapeutic range of 2.5 to 3.5 (target INR of 3).Petratt GH, et al. Chest 2012, 141:7S-47SNishimura RA, et al. [facility] 2017, 70: 252-289 Performed By: #### 3 4528-0, 14955-1 ####[facility] LABIA [id number] [place] [address] [place] PT Coag (PPP) [Time] 11.0 s Normal 9.7-13.0 [facility] Comment on above: Order Comment: Khushbu grajeda Type: BLOOD SPECIMENOrdering Facility: [facility] Address: [address] [place] [address] Performed By: #### 3 4528-0, 05778-6 ####[facility] LABCLIA [id number] [place] [id number] [place] Phosphate SerPl-mCncon 07-06 Phosphate [Mass/Vol] 2.1 mg/dL Low 2.7-4.8 [facility] Comment on above: Order Comment: Speci men Type: BLOOD SPECIMENOrdering Facility: [facility] Address: [address] [place] [address] Performed By: #### 3 034-6, 1988-03, 2776-12, ####[facility] LABCLIA [id number] [place] [address] [place] Prealb SerPl-mCncon 07-06-20 Prealbumin [Mass/Vol] 14 mg/dL Low 17-36 [facility] Comment on above: Order Comment: Speci men Type: BLOOD SPECIMENOrdering Facility: [facility] Address: [address] [place] [address] Performed By: #### 2 4321-2, 50441-3 ####[facility] LABCLIA [id number] [place] [address] [place] THERAPY NTon 07-06-2024 THERAPY NT Normal [facility] THERAPY NT Normal [facility] Transferrin SerPl-mCncon Transferrin [Mass/Vol] 184 mg/dL Low 200-360 [facility] Comment on above: Order Comment: Speci men Type: BLOOD SPECIMENOrdering Facility: [facility] Address: [address] [place] [address] Performed By: #### 3 034-6, 1988-03, 2776-12, ####[facility] LABCLIA [id number] [place] [id number] [place] aPTT PPPon 07-06-2024 aPTT Coag (PPP) [Time] 26.2 s Normal 23.0-32.4 [facility] Comment on above: Order Comment: Speci men Type: BLOOD SPECIMENOrdering Facility: [facility] Address: [address] [place] [address] Performed By: #### 3 4528-0, 83678-6 ####[facility] LABCLIA [id number] [place] [address] [place] CASE MANAGEMon 07-05-2024 CASE MANAGEM Normal [facility] CONSULTon 07-05-2024 CONSULT Normal [facility] CONSULT PROGon 07-05-2024 CONSULT PROG Normal [facility] PT EDon 07-05-2024 PT ED Normal [facility] PT panel Coag (PPP)on 2023 INR Coag (PPP) [Relative time] 1.0 {INR} Normal 0.9-1.3 [facility] Comment on above: Order Comment: Speci men Type: BLOOD SPECIMENOrdering Facility: [facility] Address: [address] [place] [address] Result Comment: Salma min K Antagonist (VKA) Therapeutic Range: INR 2 to 3 (Target INR of 2.5)Note: For patients treated with VKA drugs, such as warfarin, the [place] [employer] 2012 Guideline recommends a therapeutic INR range of 2 to 3 (target INR of 2.5). This recommendation includes high-risk patients with antiphospholipid syndrome with previous arterial or venous thromboembolism, current-generation mechanical or bioprosthetic aortic heart valve replacement.Note: Patients with mechanical aortic valve replacement and additional risk factors for thromboembolic events (atrial fibrillation, previous thromboembolism, LV dysfunction, hypercoagulable conditions) or an older generation mechanical AVR (i.e., ball in-Cage) or any mechanical MVR should have a INR therapeutic range of 2.5 to 3.5 (target INR of 3).Harley GH, et al. Chest 2012, 141:7S-47SNishimura RA, et al. [facility] 2017, 70: 252-289 Performed By: #### 3 4528-0, 49502-3 ####[facility] LABCLIA [id number] [place] [address] [place] PT Coag (PPP) [Time] 10.7 s Normal 9.7-13.0 [facility] Comment on above: Order Comment: Speci men Type: BLOOD SPECIMENOrdering Facility: [facility] Address: [address] [place] [address] Performed By: #### 3 4528-0, 40790-9 ####[facility] LABIA [id number] [place] [address] [place] THERAPY NTon 07-05-2024 THERAPY NT Normal [facility] XR ABDOMEN 1V SUPINEon 07-05 XR ABDOMEN 1V SUPINE Normal [facility] aPTT PPPon 07-05-2024 aPTT Coag (PPP) [Time] 28.2 s Normal 23.0-32.4 [facility] Comment on above: Order Comment: Speci men Type: BLOOD SPECIMENOrdering Facility: [facility] Address: [address] [place] [address] Performed By: #### 3 4528-0, 46953-7 ####[facility] LABIA [id number] [address] [place] CBC panel Auto (Bld)on 07-04 Erythrocyte distribution width (RBC) [Ratio] 14.2 % Normal 11.5-15.0 [facility] Comment on above: Order Comment: Speci men Type: BLOOD SPECIMENOrdering Facility: [facility] Address: [address] [place] [address] Performed By: #### 5 8410-2 ####[facility] LABIA [id number] [place] [address] [place] Hematocrit (Bld) [Volume fraction] 46.4 % Normal 39.0-51.0 [facility] Comment on above: Order Comment: Speci men Type: BLOOD SPECIMENOrdering Facility: [facility] Address: [address] [place] [address] Performed By: #### 5 8410-2 ####[facility]IA [id number] [place] [address] [place] Hemoglobin (Bld) [Mass/Vol] 15.1 g/dL Normal 13.0-17.0 [facility] Comment on above: Order Comment: Speci men Type: BLOOD SPECIMENOrdering Facility: [facility] Address: [address] [place] [address] Performed By: #### 5 8410-2 ####[facility] [id number] [place] [address] [place] MCH (RBC) [Entitic mass] 27.3 pg Normal 26.0-34.0 [facility] Comment on above: Order Comment: Speci men Type: BLOOD SPECIMENOrdering Facility: [facility] Address: [address] [place] [address] Performed By: #### 5 8410-2 ####[facility] [id number] [place] [address] [place] MCHC (RBC) [Mass/Vol] 32.5 g/dL Normal 30.5-36.0 [facility] Comment on above: Order Comment: Speci men Type: BLOOD SPECIMENOrdering Facility: [facility] Address: [address] [place] [address] Performed By: #### 5 8410-2 ####[facility] [id number] [place] [address] [place] MCV (RBC) [Entitic vol] 83.8 fL Normal 80.0-100.0 [facility] Comment on above: Order Comment: Speci men Type: BLOOD SPECIMENOrdering Facility: [facility] Address: [address] [place] [address] Performed By: #### 5 8410-2 ####[facility] LABIA [id number] [place] [address] [place] Nucleated RBC (Bld) [#/Vol] 10*3/uL Normal <0.01 [facility] Comment on above: Order Comment: Speci men Type: BLOOD SPECIMENOrdering Facility: [facility] Address: [address] [place] [address] Performed By: #### 5 8410-2 ####[facility] LABCLIA [id number] [address] [address] [place] Platelet mean volume (Bld) [Entitic vol] 11.6 fL Normal 9.0-12.7 [facility] Comment on above: Order Comment: Speci men Type: BLOOD SPECIMENOrdering Facility: [facility] Address: [address] [place] [address] Performed By: #### 5 8410-2 ####[facility] LABCLIA [id number] [place] [address] [place] Platelets (Bld) [#/Vol] 146 10*3/uL Low 150-400 [facility] Comment on above: Order Comment: Speci men Type: BLOOD SPECIMENOrdering Facility: [facility] Address: [address] [place] [address] Performed By: #### 5 8410-2 ####[facility] LABIA [id number] [place] [address] [place] RBC (Bld) [#/Vol] 5.54 10*6/uL Normal 4.20-6.00 [facility] Comment on above: Order Comment: Speci men Type: BLOOD SPECIMENOrdering Facility: [facility] Address: [address] [place] [address] Performed By: #### 5 8410-2 ####[facility] LABIA [id number] [place] [address] [place] WBC (Bld) [#/Vol] 4.30 10*3/uL Normal 3.70-11.00 [facility] Comment on above: Order Comment: Speci men Type: BLOOD SPECIMENOrdering Facility: [facility] Address: [address] [place] [address] Performed By: #### 5 8410-2 ####[facility] LABIA [id number] [place] [address] [place] CONSULT PROGon 07-04-2024 CONSULT PROG Normal [facility] Comprehensive metabolic 2000 panelon 07-04-2024 Albumin [Mass/Vol] 3.8 g/dL Low 3.9-4.9 [facility] Comment on above: Order Comment: Speci men Type: BLOOD SPECIMENOrdering Facility: [facility] Address: [address] [place] [address] Performed By: #### 2 4323-8, , 2776-12 ####[facility] LABCLIA [id number] [place] [address] [place] ALP [Catalytic activity/Vol] 89 U/L Normal 38-113 [facility] Comment on above: Order Comment: Speci men Type: BLOOD SPECIMENOrdering Facility: [facility] Address: [address] [place] [address] Performed By: #### 2 4323-8, , 2776-12 ####[facility] LABCLIA [id number] [place] [address] [place] ALT [Catalytic activity/Vol] 105 U/L High 10-54 [facility] Comment on above: Order Comment: Speci men Type: BLOOD SPECIMENOrdering Facility: [facility] Address: [address] [place] [address] Performed By: #### 2 4323-8, , 2776-12 ####[facility] LABCLIA [id number] [place] [id number] [place] Anion gap [Moles/Vol] 16 mmol/L High 8-15 [facility] Comment on above: Order Comment: Speci men Type: BLOOD SPECIMENOrdering Facility: [facility] Address: [address] [place] [address] Performed By: #### 2 4323-8, 82679-0, 2776- ####[facility] LABCLIA [id number] [place] [id number] [place] AST [Catalytic activity/Vol] 53 U/L High 14-40 [facility] Comment on above: Order Comment: Speci men Type: BLOOD SPECIMENOrdering Facility: [facility] Address: [address] [place] [address] Result Comment: Resu lts may be falsely increased due to interference from hemolysis. Suggest reorder as clinically indicated. Performed By: #### 2 4323-8, , 2776-12 ####[facility] LABCLIA [id number] [place] [address] [place] Bilirubin [Mass/Vol] 1.1 mg/dL Normal 0.2-1.3 [facility] Comment on above: Order Comment: Speci men Type: BLOOD SPECIMENOrdering Facility: [facility] Address: [address] [place] [address] Performed By: #### 2 4323-8, , 2776-12 ####[facility] LABCLIA [id number] [place] [address] [place] Calcium [Mass/Vol] 9.3 mg/dL Normal 8.5-10.2 [facility] Comment on above: Order Comment: Speci men Type: BLOOD SPECIMENOrdering Facility: [facility] Address: [address] [place] [address] Performed By: #### 2 4323-8, , 2776-12 ####[facility] LABCLIA [id number] [place] [id number] [place] Chloride [Moles/Vol] 101 mmol/L Normal 98-107 [facility] Comment on above: Order Comment: Speci men Type: BLOOD SPECIMENOrdering Facility: [facility] Address: [address] [place] [address] Performed By: #### 2 4323-8, , 2776- ####[facility] LABCLIA [id number] [place] [address] [place] CO2 [Moles/Vol] 19 mmol/L Low 22-30 [facility] Comment on above: Order Comment: Speci men Type: BLOOD SPECIMENOrdering Facility: [facility] Address: [address] [place] [address] Performed By: #### 2 4323-8, 17580-4, 2776-12 ####[facility] LABCLIA [id number] [place] [address] [place] Creatinine [Mass/Vol] 1.15 mg/dL Normal 0.73-1.22 [facility] Comment on above: Order Comment: Speci men Type: BLOOD SPECIMENOrdering Facility: [facility] Address: [address] [place] [address] Performed By: #### 2 4323-8, , 2776-12 ####[facility] LABIA [id number] [place] [address] [place] Creatinine and Glomerular filtration rate.predicted panel (S/P/Bld) 86 mL/min/1.73m??? Normal >=60 [facility] Comment on above: Order Comment: Khushbu grajeda Type: BLOOD SPECIMENOrdering Facility: [facility] Address: [address] [place] [address] Result Comment: Faye mated Glomerular Filtration Rate (eGFR) is calculated using the 2020 CKD-EPI creatinine equation. This equation utilizes serum creatinine, sex, and age as parameters. The creatinine assay has traceable calibration to isotope dilution-mass spectrometry. Refer to KDIGO guidelines for clinical interpretation. In patients with unstable renal function, e.g. those with acute kidney injury, the eGFR may not accurately reflect actual GFR. Performed By: #### 2 4323-8, 99992-6, 2776-12 ####[facility] LABCLIA [id number] [place] [address] [place] Glucose [Mass/Vol] 119 mg/dL High 74-99 [facility] Comment on above: Order Comment: Speci men Type: BLOOD SPECIMENOrdering Facility: [facility] Address: [address] [place], [place] [id number] Result Comment: The [place] [employer] (ADA) provides guidance for cutoff values for fasting glucose and random glucose. The ADA defines fasting as no caloric intake for at least 8 hours. Fasting plasma glucose results between 100 to 125 mg/dL indicate increased risk for diabetes (prediabetes).Fasting plasma glucose results greater than or equal to 126 mg/dL meet the criteria for diagnosis of diabetes. In the absence of unequivocal hyperglycemia, results should be confirmed by repeat testing. In a patient with classic symptoms of hyperglycemia or hyperglycemic crisis, random plasma glucose results greater than or equal to 200 mg/dL meet the criteria for diagnosis of diabetes.Reference: Standards of Medical Care in Diabetes 2016, [place] [employer]. Diabetes Care. 2016.39(Suppl 1). Performed By: #### 2 4323-8, , 2776- ####[facility] LABCLIA [id number] [place] [address] [place] Potassium [Moles/Vol] 4.5 mmol/L Normal 3.7-5.1 [facility] Comment on above: Order Comment: Khushbu men Type: BLOOD SPECIMENOrdering Facility: [facility] Address: [address] [place] [address] Performed By: #### 2 4323-8, , 2776-12 ####[facility] LABCLIA [id number] [place] [id number] [place] Protein [Mass/Vol] 6.5 g/dL Normal 6.3-8.0 [facility] Comment on above: Order Comment: Khushbu men Type: BLOOD SPECIMENOrdering Facility: [facility] Address: [address] [place], [place] [id number] Performed By: #### 2 4323-8, , 2776-12 ####[facility] LABCLIA [id number] [place] [id number] [place] Sodium [Moles/Vol] 136 mmol/L Normal 136-144 [facility] Comment on above: Order Comment: Speci men Type: BLOOD SPECIMENOrdering Facility: [facility] Address: [address] [place] [address] Performed By: #### 2 4323-8, , 2776-12 ####[facility] LABCLIA [id number] [place] [address] [place] Urea nitrogen [Mass/Vol] 17 mg/dL Normal 9-24 [facility] Comment on above: Order Comment: Speci men Type: BLOOD SPECIMENOrdering Facility: [facility] Address: [address] [place] [address] Performed By: #### 2 4323-8, , 2776-12 ####[facility] LABIA [id number] [place] [address] [place] Magnesium SerPl-mCncon 07-04 Magnesium [Mass/Vol] 1.9 mg/dL Normal 1.7-2.3 [facility] Comment on above: Order Comment: Speci men Type: BLOOD SPECIMENOrdering Facility: [facility] Address: [address] [place] [address] Performed By: #### 2 4323-8, , 2776-12 ####[facility] LABIA [id number] [place] [address] [place] NURSING PROGon 07-04-2024 NURSING PROG Normal [facility] NURSING PROG Normal [facility] NURSING PROG Normal [facility] PT panel Coag (PPP)on 2023 INR Coag (PPP) [Relative time] 1.1 {INR} Normal 0.9-1.3 [facility] Comment on above: Order Comment: Speci men Type: BLOOD SPECIMENOrdering Facility: [facility] Address: [address] [place] [address] Result Comment: Salma min K Antagonist (VKA) Therapeutic Range: INR 2 to 3 (Target INR of 2.5)Note: For patients treated with VKA drugs, such as warfarin, the [place] [employer] 2012 Guideline recommends a therapeutic INR range of 2 to 3 (target INR of 2.5). This recommendation includes high-risk patients with antiphospholipid syndrome with previous arterial or venous thromboembolism, current-generation mechanical or bioprosthetic aortic heart valve replacement.Note: Patients with mechanical aortic valve replacement and additional risk factors for thromboembolic events (atrial fibrillation, previous thromboembolism, LV dysfunction, hypercoagulable conditions) or an older generation mechanical AVR (i.e., ball in-Cage) or any mechanical MVR should have a INR therapeutic range of 2.5 to 3.5 (target INR of 3).Petratt GH, et al. Chest 2012, 141:7S-47SNishimura RA, et al. [facility] 2017, 70: 252-289 Performed By: #### 1 4979-9, 98219-2 ####[facility] LABIA [id number] [place] [address] [place] PT Coag (PPP) [Time] 11.4 s Normal 9.7-13.0 [facility] Comment on above: Order Comment: Speci men Type: BLOOD SPECIMENOrdering Facility: [facility] Address: [address] [place] [address] Performed By: #### 1 4979-9, 80467-9 ####[facility] [place] [id number] [place] [address] [place] Phosphate SerPl-mCncon 07-04 Phosphate [Mass/Vol] 4.4 mg/dL Normal 2.7-4.8 [facility] Comment on above: Order Comment: Speci men Type: BLOOD SPECIMENOrdering Facility: [facility] Address: [address] [place] [address] Performed By: #### 2 4323-8, 60522-2, 2777-1 ####[facility] LABIA [id number] [place] [address] [place] XR ABDOMEN 1V SUPINEon 07-04 XR ABDOMEN 1V SUPINE Normal [facility] aPTT PPPon 07-04-2024 aPTT Coag (PPP) [Time] 28.2 s Normal 23.0-32.4 [facility] Comment on above: Order Comment: Speci men Type: BLOOD SPECIMENOrdering Facility: [facility] Address: [address] [place] [address] Performed By: #### 1 4979-9, 30869-7 ####[facility] LABIA [id number] [place] [address] [place] CBC panel Auto (Bld)on 07-03 Erythrocyte distribution width (RBC) [Ratio] 14.5 % Normal 11.5-15.0 [facility] Comment on above: Order Comment: Speci men Type: BLOOD SPECIMENOrdering Facility: [facility] Address: [address] [place] [address] Performed By: #### 5 8410-2 ####[facility] LABIA [id number] [place] [address] [place] Hematocrit (Bld) [Volume fraction] 48.4 % Normal 39.0-51.0 [facility] Comment on above: Order Comment: Speci men Type: BLOOD SPECIMENOrdering Facility: [facility] Address: [address] [place] [address] Performed By: #### 5 8410-2 ####[facility] LABIA [id number] [place] [address] [place] Hemoglobin (Bld) [Mass/Vol] 15.7 g/dL Normal 13.0-17.0 [facility] Comment on above: Order Comment: Speci men Type: BLOOD SPECIMENOrdering Facility: [facility] Address: [address] [place] [address] Performed By: #### 5 8410-2 ####[facility] LABIA [id number] [id number] [address] [place] MCH (RBC) [Entitic mass] 26.7 pg Normal 26.0-34.0 [facility] Comment on above: Order Comment: Speci men Type: BLOOD SPECIMENOrdering Facility: [facility] Address: [address] [place] [address] Performed By: #### 5 8410-2 ####[facility] LABCLIA [id number] [place] [address] [place] MCHC (RBC) [Mass/Vol] 32.4 g/dL Normal 30.5-36.0 [facility] Comment on above: Order Comment: Speci men Type: BLOOD SPECIMENOrdering Facility: [facility] Address: [address] [place] [address] Performed By: #### 5 8410-2 ####[facility] LABIA [id number] [place] [address] [place] MCV (RBC) [Entitic vol] 82.5 fL Normal 80.0-100.0 [facility] Comment on above: Order Comment: Speci men Type: BLOOD SPECIMENOrdering Facility: [facility] Address: [address] [place] [address] Performed By: #### 5 8410-2 ####[facility] LABIA [id number] [place] [address] [place] Nucleated RBC (Bld) [#/Vol] 10*3/uL Normal <0.01 [facility] Comment on above: Order Comment: Speci men Type: BLOOD SPECIMENOrdering Facility: [facility] Address: [address] [place] [address] Performed By: #### 5 8410-2 ####[facility] LABCLIA [id number] [place] [address] [place] Platelet mean volume (Bld) [Entitic vol] 10.9 fL Normal 9.0-12.7 [facility] Comment on above: Order Comment: Speci men Type: BLOOD SPECIMENOrdering Facility: [facility] Address: [address] [place] [address] Performed By: #### 5 8410-2 ####[facility] LABIA [id number] [place] [address] [place] Platelets (Bld) [#/Vol] 143 10*3/uL Low 150-400 [facility] Comment on above: Order Comment: Speci men Type: BLOOD SPECIMENOrdering Facility: [facility] Address: [address] [place] [address] Performed By: #### 5 8410-2 ####[facility] LABIA [id number] [place] [address] [place] RBC (Bld) [#/Vol] 5.87 10*6/uL Normal 4.20-6.00 [facility] Comment on above: Order Comment: Speci men Type: BLOOD SPECIMENOrdering Facility: [facility] Address: [address] [place] [address] Performed By: #### 5 8410-2 ####[facility] LABIA [id number] [place] [address] [place] WBC (Bld) [#/Vol] 8.81 10*3/uL Normal 3.70-11.00 [facility] Comment on above: Order Comment: Speci men Type: BLOOD SPECIMENOrdering Facility: [facility] Address: [address] [place] [address] Performed By: #### 5 8410-2 ####[facility] LABIA [id number] [place] [address] [place] CONSULT PROGon 07-03-2024 CONSULT PROG Normal [facility] Comprehensive metabolic 2000 panelon 07-03-2024 Albumin [Mass/Vol] 3.8 g/dL Low 3.9-4.9 [facility] Comment on above: Order Comment: Speci men Type: BLOOD SPECIMENOrdering Facility: [facility] Address: [address] [place] [address] Performed By: #### 1 9123-9, 27901-8, 277- ####[facility] LABIA [id number] [place] [address] [place] ALP [Catalytic activity/Vol] 95 U/L Normal 38-113 [facility] Comment on above: Order Comment: Speci men Type: BLOOD SPECIMENOrdering Facility: [facility] Address: [address] [place] [address] Performed By: #### 1 9123-9, 49236-3, 277- ####[facility] LABIA [id number] [place] [address] [place] ALT [Catalytic activity/Vol] 133 U/L High 10-54 [facility] Comment on above: Order Comment: Speci men Type: BLOOD SPECIMENOrdering Facility: [facility] Address: [address] [place] [address] Performed By: #### 1 9123-9, 00042-4, 27705-31 ####[facility] LABIA [id number] [place] [address] [place] Anion gap [Moles/Vol] 13 mmol/L Normal 8-15 [facility] Comment on above: Order Comment: Speci men Type: BLOOD SPECIMENOrdering Facility: [facility] Address: [address] [place] [address] Performed By: #### 1 9123-9, 86034-3, 27705-31 ####[facility] LABIA [id number] [place] [address] [place] AST [Catalytic activity/Vol] 70 U/L High 14-40 [facility] Comment on above: Order Comment: Speci men Type: BLOOD SPECIMENOrdering Facility: [facility] Address: [address] [place] [address] Performed By: #### 1 9123-9, , 2776-12 ####[facility] LABCLIA [id number] [address] [address] [place] Bilirubin [Mass/Vol] 1.1 mg/dL Normal 0.2-1.3 [facility] Comment on above: Order Comment: Speci men Type: BLOOD SPECIMENOrdering Facility: [facility] Address: [address] [place] [address] Performed By: #### 1 9123-9, , 2776-12 ####[facility] LABCLIA [id number] [place] [address] [place] Calcium [Mass/Vol] 9.1 mg/dL Normal 8.5-10.2 [facility] Comment on above: Order Comment: Speci men Type: BLOOD SPECIMENOrdering Facility: [facility] Address: [address] [place] [address] Performed By: #### 1 9123-9, , 2776-12 ####[facility] LABCLIA [id number] [place] [address] [place] Chloride [Moles/Vol] 102 mmol/L Normal 98-107 [facility] Comment on above: Order Comment: Speci men Type: BLOOD SPECIMENOrdering Facility: [facility] Address: [address] [place] [address] Performed By: #### 1 9123-9, , 2776-12 ####[facility] LABCLIA [id number] [address] [address] [place] CO2 [Moles/Vol] 21 mmol/L Low 22-30 [facility] Comment on above: Order Comment: Speci men Type: BLOOD SPECIMENOrdering Facility: [facility] Address: [address] [place], [place] [address] Performed By: #### 1 9123-9, 23202-5, 27705-31 ####[facility] LABCLIA [id number] [place] [address] [place] Creatinine [Mass/Vol] 1.05 mg/dL Normal 0.73-1.22 [facility] Comment on above: Order Comment: Khushbu grajeda Type: BLOOD SPECIMENOrdering Facility: [facility] Address: [address] [place] [address] Performed By: #### 1 9123-9, 65225-6, 2777- ####[facility] [id number] [place] [address] [place] Creatinine and Glomerular filtration rate.predicted panel (S/P/Bld) 96 mL/min/1.73m??? Normal >=60 [facility] Comment on above: Order Comment: Khushbu grajeda Type: BLOOD SPECIMENOrdering Facility: [facility] Address: [address] [place] [address] Result Comment: Faye mated Glomerular Filtration Rate (eGFR) is calculated using the 2020 CKD-EPI creatinine equation. This equation utilizes serum creatinine, sex, and age as parameters. The creatinine assay has traceable calibration to isotope dilution-mass spectrometry. Refer to KDIGO guidelines for clinical interpretation. In patients with unstable renal function, e.g. those with acute kidney injury, the eGFR may not accurately reflect actual GFR. Performed By: #### 1 9123-9, 52931-8, 277- ####[facility] [id number] [place] [address] [place] Glucose [Mass/Vol] 101 mg/dL High 74-99 [facility] Comment on above: Order Comment: Khushbu grajeda Type: BLOOD SPECIMENOrdering Facility: [facility] Address: [address] [place] [address] Result Comment: The [place] [employer] (ADA) provides guidance for cutoff values for fasting glucose and random glucose. The ADA defines fasting as no caloric intake for at least 8 hours. Fasting plasma glucose results between 100 to 125 mg/dL indicate increased risk for diabetes (prediabetes).Fasting plasma glucose results greater than or equal to 126 mg/dL meet the criteria for diagnosis of diabetes. In the absence of unequivocal hyperglycemia, results should be confirmed by repeat testing. In a patient with classic symptoms of hyperglycemia or hyperglycemic crisis, random plasma glucose results greater than or equal to 200 mg/dL meet the criteria for diagnosis of diabetes.Reference: Standards of Medical Care in Diabetes 2016, [place] [employer]. Diabetes Care. 2016.39(Suppl 1). Performed By: #### 1 9123-9, 53569-5, 2776-12 ####[facility] LABCLIA [id number] [place] [address] [place] Potassium [Moles/Vol] 3.9 mmol/L Normal 3.7-5.1 [facility] Comment on above: Order Comment: Speci men Type: BLOOD SPECIMENOrdering Facility: [facility] Address: [address] [place] [address] Performed By: #### 1 9123-9, , 2776-12 ####[facility] LABCLIA [id number] [place] [address] [place] Protein [Mass/Vol] 6.5 g/dL Normal 6.3-8.0 [facility] Comment on above: Order Comment: Khushbu grajeda Type: BLOOD SPECIMENOrdering Facility: [facility] Address: [address] [place] [address] Performed By: #### 1 9123-9, , 2776-12 ####[facility] LABCLIA [id number] [place] [address] [place] Sodium [Moles/Vol] 136 mmol/L Normal 136-144 [facility] Comment on above: Order Comment: Speci men Type: BLOOD SPECIMENOrdering Facility: [facility] Address: [address] [place] [address] Performed By: #### 1 9123-9, , 2776-12 ####[facility] LABCLIA [id number] [address] [address] [place] Urea nitrogen [Mass/Vol] 11 mg/dL Normal 9-24 [facility] Comment on above: Order Comment: Speci men Type: BLOOD SPECIMENOrdering Facility: [facility] Address: [address] [place] [address] Performed By: #### 1 9123-9, 01035-7, 2777-1 ####[facility] LABCLIA [id number] [place] [address] [place] Albumin [Mass/Vol] 3.7 g/dL Low 3.9-4.9 [facility] Comment on above: Order Comment: Speci men Type: BLOOD SPECIMENOrdering Facility: [facility] Address: [address] [place] [address] Performed By: #### 2 4323-8 ####[facility] LABCLIA [id number] [place] [address] [place] ALP [Catalytic activity/Vol] 86 U/L Normal 38-113 [facility] Comment on above: Order Comment: Speci men Type: BLOOD SPECIMENOrdering Facility: [facility] Address: [address] [place] [address] Result Comment: Resu lts may be falsely decreased due to interference from hemolysis. Suggest reorder as clinically indicated. Performed By: #### 2 4323-8 ####[facility] LABCLIA [id number] [place] [address] [place] ALT [Catalytic activity/Vol] 137 U/L High 10-54 [facility] Comment on above: Order Comment: Speci men Type: BLOOD SPECIMENOrdering Facility: [facility] Address: [address] [place] [address] Result Comment: Resu lts may be falsely increased due to interference from hemolysis. Suggest reorder as clinically indicated. Performed By: #### 2 4323-8 ####[facility] LABCLIA [id number] [place] [address] [place] Anion gap [Moles/Vol] 11 mmol/L Normal 8-15 [facility] Comment on above: Order Comment: Speci men Type: BLOOD SPECIMENOrdering Facility: [facility] Address: [address] [place] [address] Performed By: #### 2 4323-8 ####[facility] LABCLIA [id number] [place] [id number] [place] AST [Catalytic activity/Vol] 118 U/L High 14-40 [facility] Comment on above: Order Comment: Speci men Type: BLOOD SPECIMENOrdering Facility: [facility] Address: [address] [place] [address] Result Comment: Resu lts may be falsely increased due to interference from hemolysis. Suggest reorder as clinically indicated. Performed By: #### 2 4323-8 ####[facility] LABCLIA [id number] [place] [address] [place] Bilirubin [Mass/Vol] 1.0 mg/dL Normal 0.2-1.3 [facility] Comment on above: Order Comment: Speci men Type: BLOOD SPECIMENOrdering Facility: [facility] Address: [address] [place] [address] Performed By: #### 2 4323-8 ####[facility] LABCLIA [id number] [place] [address] [place] Calcium [Mass/Vol] 8.8 mg/dL Normal 8.5-10.2 [facility] Comment on above: Order Comment: Speci men Type: BLOOD SPECIMENOrdering Facility: [facility] Address: [address] [place] [address] Performed By: #### 2 4323-8 ####[facility] LABCLIA [id number] [place] [address] [place] Chloride [Moles/Vol] 100 mmol/L Normal 98-107 [facility] Comment on above: Order Comment: Speci men Type: BLOOD SPECIMENOrdering Facility: [facility] Address: [address] [place] [address] Performed By: #### 2 4323-8 ####[facility] LABCLIA [id number] [place] [address] [place] CO2 [Moles/Vol] 20 mmol/L Low 22-30 [facility] Comment on above: Order Comment: Speci men Type: BLOOD SPECIMENOrdering Facility: [facility] Address: [address] [place] [address] Performed By: #### 2 4323-8 ####[facility] LABCLIA [id number] [place] [address] [place] Creatinine [Mass/Vol] 0.98 mg/dL Normal 0.73-1.22 [facility] Comment on above: Order Comment: Speci men Type: BLOOD SPECIMENOrdering Facility: [facility] Address: [address] [place] [address] Performed By: #### 2 4323-8 ####[facility] LABIA [id number] [place] [address] [place] Creatinine and Glomerular filtration rate.predicted panel (S/P/Bld) 104 mL/min/1.73m??? Normal >=60 [facility] Comment on above: Order Comment: Speci men Type: BLOOD SPECIMENOrdering Facility: [facility] Address: [address] [place] [address] Result Comment: Faye mated Glomerular Filtration Rate (eGFR) is calculated using the 2020 CKD-EPI creatinine equation. This equation utilizes serum creatinine, sex, and age as parameters. The creatinine assay has traceable calibration to isotope dilution-mass spectrometry. Refer to KDIGO guidelines for clinical interpretation. In patients with unstable renal function, e.g. those with acute kidney injury, the eGFR may not accurately reflect actual GFR. Performed By: #### 2 4323-8 ####[facility] LABCLIA [id number] [place] [address] [place] Glucose [Mass/Vol] 94 mg/dL Normal 74-99 [facility] Comment on above: Order Comment: Speci men Type: BLOOD SPECIMENOrdering Facility: [facility] Address: [address] [place] [address] Result Comment: The [place] [employer] (ADA) provides guidance for cutoff values for fasting glucose and random glucose. The ADA defines fasting as no caloric intake for at least 8 hours. Fasting plasma glucose results between 100 to 125 mg/dL indicate increased risk for diabetes (prediabetes).Fasting plasma glucose results greater than or equal to 126 mg/dL meet the criteria for diagnosis of diabetes. In the absence of unequivocal hyperglycemia, results should be confirmed by repeat testing. In a patient with classic symptoms of hyperglycemia or hyperglycemic crisis, random plasma glucose results greater than or equal to 200 mg/dL meet the criteria for diagnosis of diabetes.Reference: Standards of Medical Care in Diabetes 2016, [place] [employer]. Diabetes Care. 2016.39(Suppl 1). Performed By: #### 2 4323-8 ####[facility] LABCLIA [id number] [place] [address] [place] Potassium [Moles/Vol] Normal [facility] Comment on above: Order Comment: Speci men Type: BLOOD SPECIMENOrdering Facility: [facility] Address: [address] [place] [address] Result Comment: Unab le to assay due to interference from hemolysis. Suggest reorder as clinically indicated. Performed By: #### 2 4323-8 ####[facility] LABCLIA [id number] [place] [address] [place] Protein [Mass/Vol] 6.5 g/dL Normal 6.3-8.0 [facility] Comment on above: Order Comment: Speci men Type: BLOOD SPECIMENOrdering Facility: [facility] Address: [address] [place] [address] Performed By: #### 2 4323-8 ####[facility] LABCLIA [id number] [place] [address] [place] Sodium [Moles/Vol] 131 mmol/L Low 136-144 [facility] Comment on above: Order Comment: Speci men Type: BLOOD SPECIMENOrdering Facility: [facility] Address: [address] [place] [address] Performed By: #### 2 4323-8 ####[facility] LABCLIA [id number] [address] [address] [place] Urea nitrogen [Mass/Vol] 11 mg/dL Normal 9-24 [facility] Comment on above: Order Comment: Speci men Type: BLOOD SPECIMENOrdering Facility: [facility] Address: [address] [place] [address] Performed By: #### 2 4323-8 ####[facility] LABIA [id number] [place] [address] [place] Gas and Carbon monoxide pane l (BldV)on 07-03-2024 BASE DEFICIT, VENOUS -1 mmol/L Normal -2-0 [facility] Comment on above: Order Comment: Speci men Type: VENOUS BLOOD SPECIMENOrdering Facility: [facility] Address: [address] [place] [address] Performed By: #### 2 4344-4 ####[facility] LABIA [id number] [place] [address] [place] Body temperature 98.6 [degF] Normal [facility] Comment on above: Order Comment: Speci men Type: VENOUS BLOOD SPECIMENOrdering Facility: [facility] Address: [address] [place] [address] Performed By: #### 2 4344-4 ####[facility] LABIA [id number] [place] [address] [place] Calcium.ionized (Bld) [Mass/Vol] 1.27 mmol/L Normal 1.08-1.30 [facility] Comment on above: Order Comment: Speci men Type: VENOUS BLOOD SPECIMENOrdering Facility: [facility] Address: [address] [place] [address] Performed By: #### 2 4344-4 ####[facility] LABCLIA [id number] [place] [address] [place] Calcium.ionized adjusted to pH 7.4 (BldA) [Moles/Vol] 1.25 mmol/L Normal 1.08-1.30 [facility] Comment on above: Order Comment: Speci men Type: VENOUS BLOOD SPECIMENOrdering Facility: [facility] Address: [address] [place] [address] Performed By: #### 2 4344-4 ####[facility] LABCLIA [id number] [place] [address] [place] Carboxyhemoglobin (BldV) [Mass fraction] 1.8 % Normal 0.0-2.0 [facility] Comment on above: Order Comment: Speci men Type: VENOUS BLOOD SPECIMENOrdering Facility: [facility] Address: [address] [place] [address] Result Comment: Carb oxyhemoglobin Reference Range for Smokers: 2.0-8.0% Performed By: #### 2 4344-4 ####[facility] LABCLIA [id number] [place] [address] [place] CO2 (BldV) [Partial pressure] 42 mm[Hg] Normal 42-55 [facility] Comment on above: Order Comment: Speci men Type: VENOUS BLOOD SPECIMENOrdering Facility: [facility] Address: [address] [place] [address] Performed By: #### 2 4344-4 ####[facility] LABCLIA [id number] [place] [address] [place] Glucose [Mass/Vol] 110 mg/dL High 60-105 [facility] Comment on above: Order Comment: Speci men Type: VENOUS BLOOD SPECIMENOrdering Facility: [facility] Address: [address] [place] [address] Performed By: #### 2 4344-4 ####[facility] LABCLIA [id number] [place] [address] [place] HCO3 (Bld) [Moles/Vol] 24 mmol/L Normal 24-28 [facility] Comment on above: Order Comment: Speci men Type: VENOUS BLOOD SPECIMENOrdering Facility: [facility] Address: [address] [place] [address] Performed By: #### 2 4344-4 ####[facility] LABCLIA [id number] [place] [address] [place] Hematocrit (Bld) [Volume fraction] 50.2 % Normal 39.0-51.0 [facility] Comment on above: Order Comment: Speci men Type: VENOUS BLOOD SPECIMENOrdering Facility: [facility] Address: [address] [place] [address] Performed By: #### 2 4344-4 ####[facility] LABIA [id number] [place] [address] [place] Hemoglobin (Bld) [Mass/Vol] 16.4 g/dL Normal 13.0-17.0 [facility] Comment on above: Order Comment: Speci men Type: VENOUS BLOOD SPECIMENOrdering Facility: [facility] Address: [address] [place] [address] Performed By: #### 2 4344-4 ####[facility] LABIA [id number] [place] [address] [place] Lactate [Moles/Vol] 0.9 mmol/L Normal 0.5-2.2 [facility] Comment on above: Order Comment: Speci men Type: VENOUS BLOOD SPECIMENOrdering Facility: [facility] Address: [address] [place] [address] Performed By: #### 2 4344-4 ####[facility] LABCLIA [id number] [place] [address] [place] LITERS 2 Liters/min Normal [facility] Comment on above: Order Comment: Speci men Type: VENOUS BLOOD SPECIMENOrdering Facility: [facility] Address: [address] [place] [id number] Performed By: #### 2 4344-4 ####[facility] LABCLIA [id number] [address] [address] [place] Methemoglobin (Bld) [Mass fraction] 1.4 % Normal 0.0-1.5 [facility] Comment on above: Order Comment: Speci men Type: VENOUS BLOOD SPECIMENOrdering Facility: [facility] Address: [address] [place] [address] Performed By: #### 2 4344-4 ####[facility] LABCLIA [id number] [place] [address] [place] O2 THERAPY NC = Nasal Cannula Normal [facility] Comment on above: Order Comment: Speci men Type: VENOUS BLOOD SPECIMENOrdering Facility: [facility] Address: [address] [place] [address] Performed By: #### 2 4344-4 ####[facility] LABCLIA [id number] [place] [address] [place] Oxygen (BldV) [Partial pressure] 55 mm[Hg] High 35-45 [facility] Comment on above: Order Comment: Speci men Type: VENOUS BLOOD SPECIMENOrdering Facility: [facility] Address: [address] [place] [address] Performed By: #### 2 4344-4 ####[facility] LABCLIA [id number] [place] [address] [place] Oxygen saturation in Venous blood 85 % Normal 60-85 [facility] Comment on above: Order Comment: Speci men Type: VENOUS BLOOD SPECIMENOrdering Facility: [facility] Address: [address] [place], [place] [id number] Performed By: #### 2 4344-4 ####[facility] LABCLIA [id number] [place] [address] [place] Oxyhemoglobin (BldV) [Mass fraction] 83 % Normal 60-85 [facility] Comment on above: Order Comment: Speci men Type: VENOUS BLOOD SPECIMENOrdering Facility: [facility] Address: [address] [place] [address] Performed By: #### 2 4344-4 ####[facility] LABCLIA [id number] [place] [address] [place] pH (BldV) 7.37 [pH] Normal 7.32-7.42 [facility] Comment on above: Order Comment: Speci men Type: VENOUS BLOOD SPECIMENOrdering Facility: [facility] Address: [address] [place] [address] Performed By: #### 2 4344-4 ####[facility] LABCLIA [id number] [place] [address] [place] Potassium [Moles/Vol] 3.7 mmol/L Normal 3.5-5.0 [facility] Comment on above: Order Comment: Speci men Type: VENOUS BLOOD SPECIMENOrdering Facility: [facility] Address: [address] [place] [address] Performed By: #### 2 4344-4 ####[facility] LABCLIA [id number] [place] [address] [place] Sodium [Moles/Vol] 135 mmol/L Low 136-144 [facility] Comment on above: Order Comment: Speci men Type: VENOUS BLOOD SPECIMENOrdering Facility: [facility] Address: [address] [place] [address] Performed By: #### 2 4344-4 ####[facility] LABCLIA [id number] [place] [address] [place] BASE DEFICIT, VENOUS -1 mmol/L Normal -2-0 [facility] Comment on above: Order Comment: Speci men Type: VENOUS BLOOD SPECIMENOrdering Facility: [facility] Address: [address] [place] [address] Performed By: #### 2 4344-4 ####[facility] LABIA [id number] [place] [address] [place] Body temperature 98.78 [degF] Normal [facility] Comment on above: Order Comment: Speci men Type: VENOUS BLOOD SPECIMENOrdering Facility: [facility] Address: [address] [place] [address] Performed By: #### 2 4344-4 ####[facility] [id number] [place] [address] [place] Calcium.ionized (Bld) [Mass/Vol] 1.09 mmol/L Normal 1.08-1.30 [facility] Comment on above: Order Comment: Speci men Type: VENOUS BLOOD SPECIMENOrdering Facility: [facility] Address: [address] [place] [address] Performed By: #### 2 4344-4 ####[facility] [id number] [place] [address] [place] Calcium.ionized adjusted to pH 7.4 (BldA) [Moles/Vol] 1.07 mmol/L Low 1.08-1.30 [facility] Comment on above: Order Comment: Speci men Type: VENOUS BLOOD SPECIMENOrdering Facility: [facility] Address: [address] [place] [address] Performed By: #### 2 4344-4 ####[facility] [id number] [place] [address] [place] Carboxyhemoglobin (BldV) [Mass fraction] 1.7 % Normal 0.0-2.0 [facility] Comment on above: Order Comment: Speci men Type: VENOUS BLOOD SPECIMENOrdering Facility: [facility] Address: [address] [place] [address] Result Comment: Carb oxyhemoglobin Reference Range for Smokers: 2.0-8.0% Performed By: #### 2 4344-4 ####[facility] LABCLIA [id number] [place] [address] [place] CO2 (BldV) [Partial pressure] 42 mm[Hg] Normal 42-55 [facility] Comment on above: Order Comment: Speci men Type: VENOUS BLOOD SPECIMENOrdering Facility: [facility] Address: [address] [place] [address] Performed By: #### 2 4344-4 ####[facility] LABCLIA [id number] [address] [place] CO2 adjusted to patient's actual temperature (BldV) [Partial pressure] 42 mmHg Normal 42-55 [facility] Comment on above: Order Comment: Speci men Type: VENOUS BLOOD SPECIMENOrdering Facility: [facility] Address: [address] [place] [address] Performed By: #### 2 4344-4 ####[facility] LABCLIA [id number] [address] [place] DATE/TIME NOTIFIED 244473 [address]83 AM Normal [facility] Comment on above: Order Comment: Speci men Type: VENOUS BLOOD SPECIMENOrdering Facility: [facility] Address: [address] [place] [address] Performed By: #### 2 4344-4 ####[facility] LABCLIA [id number] [place] [address] [place] Glucose [Mass/Vol] 106 mg/dL High 60-105 [facility] Comment on above: Order Comment: Speci men Type: VENOUS BLOOD SPECIMENOrdering Facility: [facility] Address: [address] [place] [address] Performed By: #### 2 4344-4 ####[facility] LABCLIA [id number] [address] [id number] [address] [place] HCO3 (Bld) [Moles/Vol] 23 mmol/L Low 24-28 [facility] Comment on above: Order Comment: Speci men Type: VENOUS BLOOD SPECIMENOrdering Facility: [facility] Address: [address] [place] [address] Performed By: #### 2 4344-4 ####[facility] LABCLIA [id number] [place] [address] [place] Hematocrit (Bld) [Volume fraction] 47.1 % Normal 39.0-51.0 [facility] Comment on above: Order Comment: Speci men Type: VENOUS BLOOD SPECIMENOrdering Facility: [facility] Address: [address] [place] [address] Performed By: #### 2 4344-4 ####[facility] LABCLIA [id number] [place] [address] [place] Hemoglobin (Bld) [Mass/Vol] 15.4 g/dL Normal 13.0-17.0 [facility] Comment on above: Order Comment: Speci men Type: VENOUS BLOOD SPECIMENOrdering Facility: [facility] Address: [address] [place] [address] Performed By: #### 2 4344-4 ####[facility] LABCLIA [id number] [place] [address] [place] Lactate [Moles/Vol] 1.4 mmol/L Normal 0.5-2.2 [facility] Comment on above: Order Comment: Speci men Type: VENOUS BLOOD SPECIMENOrdering Facility: [facility] Address: [address] [place] [address] Performed By: #### 2 4344-4 ####[facility] LABCLIA [id number] [place] [address] [place] Methemoglobin (Bld) [Mass fraction] 1.3 % Normal 0.0-1.5 [facility] Comment on above: Order Comment: Speci men Type: VENOUS BLOOD SPECIMENOrdering Facility: [facility] Address: [address] [place] [address] Performed By: #### 2 4344-4 ####[facility] LABCLIA [id number] [address] [address] [place] NOTIFIED WHOM Basilia Pratt RN G053 Poppy [place] Normal [facility] Comment on above: Order Comment: Speci men Type: VENOUS BLOOD SPECIMENOrdering Facility: [facility] Address: [address] [place] [id number] Performed By: #### 2 4344-4 ####[facility] LABCLIA [id number] [place] [id number] [place] O2 THERAPY RA=Room Air Normal [facility] Comment on above: Order Comment: Speci men Type: VENOUS BLOOD SPECIMENOrdering Facility: [facility] Address: [address] [place] [id number] Performed By: #### 2 4344-4 ####[facility] LABCLIA [id number] [address] [address] [place] Oxygen (BldV) [Partial pressure] 62 mm[Hg] High 35-45 [facility] Comment on above: Order Comment: Speci men Type: VENOUS BLOOD SPECIMENOrdering Facility: [facility] Address: [address] [place] [address] Performed By: #### 2 4344-4 ####[facility] LABCLIA [id number] [address] [address] [place] Oxygen adjusted to patient's actual temperature (BldV) [Partial pressure] 63 mmHg High 35-45 [facility] Comment on above: Order Comment: Speci men Type: VENOUS BLOOD SPECIMENOrdering Facility: [facility] Address: [address] [place] [address] Performed By: #### 2 4344-4 ####[facility] LABCLIA [id number] [address] [address] [place] Oxygen saturation in Venous blood 91 % High 60-85 [facility] Comment on above: Order Comment: Speci men Type: VENOUS BLOOD SPECIMENOrdering Facility: [facility] Address: [address] [place] [address] Performed By: #### 2 4344-4 ####[facility] LABCLIA [id number] [address] [address] [place] Oxyhemoglobin (BldV) [Mass fraction] 89 % High 60-85 [facility] Comment on above: Order Comment: Speci men Type: VENOUS BLOOD SPECIMENOrdering Facility: [facility] Address: [address] [id number] Performed By: #### 2 4344-4 ####[facility] LABCLIA [id number] [place] [id number] [place] pH (BldV) 7.37 [pH] Normal 7.32-7.42 [facility] Comment on above: Order Comment: Speci men Type: VENOUS BLOOD SPECIMENOrdering Facility: [facility] Address: [address] [place], [place] [address] Performed By: #### 2 4344-4 ####[facility] LABCLIA [id number] [place] [address] [place] pH adjusted to patient's actual temperature (BldV) 7.37 Normal 7.32-7.42 [facility] Comment on above: Order Comment: Speci men Type: VENOUS BLOOD SPECIMENOrdering Facility: [facility] Address: [address] [place] [id number] Performed By: #### 2 4344-4 ####[facility] LABCLIA [id number] [place] [address] [place] Potassium [Moles/Vol] Normal [facility] Comment on above: Order Comment: Speci men Type: VENOUS BLOOD SPECIMENOrdering Facility: [facility] Address: [address] [place], [place] [id number] Result Comment: Unab le to assay due to interference from hemolysis. Suggest reorder as clinically indicated. Performed By: #### 2 4344-4 ####[facility] LABCLIA [id number] [place] [address] [place] Sodium [Moles/Vol] 126 mmol/L Low 136-144 [facility] Comment on above: Order Comment: Speci men Type: VENOUS BLOOD SPECIMENOrdering Facility: [facility] Address: [address] [place] [address] Performed By: #### 2 4344-4 ####[facility] LABCLIA [id number] [place] [address] [place] HISTORY PHYSICALon HISTORY PHYSICAL Normal [facility] [place] MEDICAL EMERon 07-03-2024 MEDICAL BURKE Normal [facility] Magnesium SerPl-mCncon 07-03 Magnesium [Mass/Vol] 1.8 mg/dL Normal 1.7-2.3 [facility] Comment on above: Order Comment: Speci men Type: BLOOD SPECIMENOrdering Facility: [facility] Address: [address] [place] [address] Performed By: #### 1 9123-9, 54737-3, 2777-1 ####[facility] LABIA [id number] [place] [address] [place] PT panel Coag (PPP)on 2023 INR Coag (PPP) [Relative time] 1.0 {INR} Normal 0.9-1.3 [facility] Comment on above: Order Comment: Speci men Type: BLOOD SPECIMENOrdering Facility: [facility] Address: [address] [place] [address] Result Comment: Salma min K Antagonist (VKA) Therapeutic Range: INR 2 to 3 (Target INR of 2.5)Note: For patients treated with VKA drugs, such as warfarin, the [place] [employer] 2012 Guideline recommends a therapeutic INR range of 2 to 3 (target INR of 2.5). This recommendation includes high-risk patients with antiphospholipid syndrome with previous arterial or venous thromboembolism, current-generation mechanical or bioprosthetic aortic heart valve replacement.Note: Patients with mechanical aortic valve replacement and additional risk factors for thromboembolic events (atrial fibrillation, previous thromboembolism, LV dysfunction, hypercoagulable conditions) or an older generation mechanical AVR (i.e., ball in-Cage) or any mechanical MVR should have a INR therapeutic range of 2.5 to 3.5 (target INR of 3).Harley GH, et al. Chest 2012, 141:7S-47SNishimradha RA, et al. [facility] 2017, 70: 252-289 Performed By: #### 3 4528-0, 93846-4 ####[facility] [id number] [place] [address] [place] PT Coag (PPP) [Time] 11.0 s Normal 9.7-13.0 [facility] Comment on above: Order Comment: Khushbu grajeda Type: BLOOD SPECIMENOrdering Facility: [facility] Address: [address] [place] [address] Performed By: #### 3 4528-0, 07689-3 ####[facility] [id number] [place] [address] [place] INR Coag (PPP) [Relative time] 1.0 {INR} Normal 0.9-1.3 [facility] Comment on above: Order Comment: Khushbu grajeda Type: BLOOD SPECIMENOrdering Facility: [facility] Address: [address] [place] [address] Result Comment: Salma min K Antagonist (VKA) Therapeutic Range: INR 2 to 3 (Target INR of 2.5)Note: For patients treated with VKA drugs, such as warfarin, the [place] [employer] 2012 Guideline recommends a therapeutic INR range of 2 to 3 (target INR of 2.5). This recommendation includes high-risk patients with antiphospholipid syndrome with previous arterial or venous thromboembolism, current-generation mechanical or bioprosthetic aortic heart valve replacement.Note: Patients with mechanical aortic valve replacement and additional risk factors for thromboembolic events (atrial fibrillation, previous thromboembolism, LV dysfunction, hypercoagulable conditions) or an older generation mechanical AVR (i.e., ball in-Cage) or any mechanical MVR should have a INR therapeutic range of 2.5 to 3.5 (target INR of 3).Harley GH, et al. Chest 2012, 141:7S-47SAdriana RA, et al. [facility] 2017, 70: 252-289 Performed By: #### 3 4528-0 ####[facility] LABIA [id number] [place] [address] [place] PT Coag (PPP) [Time] 11.0 s Normal 9.7-13.0 [facility] Comment on above: Order Comment: Speci men Type: BLOOD SPECIMENOrdering Facility: [facility] Address: [address] [place] [address] Performed By: #### 3 4528-0 ####[facility] [id number] [place] [address] [place] Phosphate SerPl-mCncon 07-03 Phosphate [Mass/Vol] 3.0 mg/dL Normal 2.7-4.8 [facility] Comment on above: Order Comment: Speci men Type: BLOOD SPECIMENOrdering Facility: [facility] Address: [address] [place] [address] Performed By: #### 1 9123-9, 21915-6, 2777-1 ####[facility] [place] [id number] [place] [address] [place] STAPHYLOCOCCUS AUREUS AND MR SA SCREEN, PCR, NASALon 07-03-2024 S. aureus and MRSA panel GERMÁN+probe (Nose) Not detected Normal Not Detected [facility] Comment on above: Order Comment: Speci men Type: SWABOrdering Facility: [facility] Address: [address] [place] [address] Performed By: #### S APCR ####[facility] LABIA [id number] [place] [address] [place] THERAPY NTon 07-03-2024 THERAPY NT Normal [facility] XR ABDOMEN 1V SUPINEon 07-03 XR ABDOMEN 1V SUPINE Normal [facility] XR ABDOMEN 1V SUPINE Normal [facility] XR CHEST 1V FRONTAL PORTon 0 07-03-2024 XR CHEST 1V FRONTAL PORT Normal [facility] aPTT PPPon 07-03-2024 aPTT Coag (PPP) [Time] 28.1 s Normal 23.0-32.4 [facility] Comment on above: Order Comment: Speci men Type: BLOOD SPECIMENOrdering Facility: [facility] Address: [address] [place] [address] Performed By: #### 3 4528-0, 79897-6 ####[facility] LABCLIA [id number] [place] [id number] [place] Basic metabolic 2000 panelon 07-02-2024 Anion gap [Moles/Vol] 16 mmol/L High 8-15 [facility] Comment on above: Order Comment: Speci men Type: BLOOD SPECIMENOrdering Facility: [facility] Address: [address] [place] [address] Performed By: #### 1 9123-9, 2777-1, 19666-9, 16377-2 ####[facility] LABCLIA [id number] [place] [address] [place] Calcium [Mass/Vol] 8.8 mg/dL Normal 8.5-10.2 [facility] Comment on above: Order Comment: Speci men Type: BLOOD SPECIMENOrdering Facility: [facility] Address: [address] [place] [address] Performed By: #### 1 9123-9, 2777-1, 96869-2, 42658-6 ####[facility] LABCLIA [id number] [address] [address] [place] Chloride [Moles/Vol] 101 mmol/L Normal 98-107 [facility] Comment on above: Order Comment: Speci men Type: BLOOD SPECIMENOrdering Facility: [facility] Address: [address] [place], [place] [address] Performed By: #### 1 9123-9, 2777-1, 35750-1, 83672-0 ####[facility] LABCLIA [id number] [address] [address] [place] CO2 [Moles/Vol] 18 mmol/L Low 22-30 [facility] Comment on above: Order Comment: Speci men Type: BLOOD SPECIMENOrdering Facility: [facility] Address: [address] [place] [address] Performed By: #### 1 9123-9, 2777-1, 67994-1, 44753-4 ####[facility] LABIA [id number] [place] [address] [place] Creatinine [Mass/Vol] 0.99 mg/dL Normal 0.73-1.22 [facility] Comment on above: Order Comment: Speci men Type: BLOOD SPECIMENOrdering Facility: [facility] Address: [address] [place] [address] Performed By: #### 1 9123-9, 2777-1, 93825-6, 19650-7 ####[facility] LABIA [id number] [place] [id number] [place] Creatinine and Glomerular filtration rate.predicted panel (S/P/Bld) 103 mL/min/1.73m??? Normal >=60 [facility] Comment on above: Order Comment: Speci men Type: BLOOD SPECIMENOrdering Facility: [facility] Address: [address] [place] [address] Result Comment: Faye mated Glomerular Filtration Rate (eGFR) is calculated using the 2020 CKD-EPI creatinine equation. This equation utilizes serum creatinine, sex, and age as parameters. The creatinine assay has traceable calibration to isotope dilution-mass spectrometry. Refer to KDIGO guidelines for clinical interpretation. In patients with unstable renal function, e.g. those with acute kidney injury, the eGFR may not accurately reflect actual GFR. Performed By: #### 1 9123-9, 2777-1, 54512-8, 99482-6 ####[facility] LABCLIA [id number] [place] [id number] [place] Glucose [Mass/Vol] 91 mg/dL Normal 74-99 [facility] Comment on above: Order Comment: Speci men Type: BLOOD SPECIMENOrdering Facility: [facility] Address: [address] [place] [address] Result Comment: The [place] [employer] (ADA) provides guidance for cutoff values for fasting glucose and random glucose. The ADA defines fasting as no caloric intake for at least 8 hours. Fasting plasma glucose results between 100 to 125 mg/dL indicate increased risk for diabetes (prediabetes).Fasting plasma glucose results greater than or equal to 126 mg/dL meet the criteria for diagnosis of diabetes. In the absence of unequivocal hyperglycemia, results should be confirmed by repeat testing. In a patient with classic symptoms of hyperglycemia or hyperglycemic crisis, random plasma glucose results greater than or equal to 200 mg/dL meet the criteria for diagnosis of diabetes.Reference: Standards of Medical Care in Diabetes 2016, [place] [employer]. Diabetes Care. 2016.39(Suppl 1). Performed By: #### 1 9123-9, 2777-1, 34938-9, 74698-8 ####[facility] LABCLIA [id number] [place] [address] [place] Potassium [Moles/Vol] Normal [facility] Comment on above: Order Comment: Khushbu men Type: BLOOD SPECIMENOrdering Facility: [facility] Address: [address] [place] [address] Result Comment: Unab le to assay due to interference from hemolysis. Suggest reorder as clinically indicated. Performed By: #### 1 9123-9, 2777-1, 15076-1, 21637-5 ####[facility] LABCLIA [id number] [place] [address] [place] Sodium [Moles/Vol] 135 mmol/L Low 136-144 [facility] Comment on above: Order Comment: Speci men Type: BLOOD SPECIMENOrdering Facility: [facility] Address: [address] [place] [address] Performed By: #### 1 9123-9, 2777-1, 31226-0, 97913-5 ####[facility] LABCLIA [id number] [place] [address] [place] Urea nitrogen [Mass/Vol] 11 mg/dL Normal 9-24 [facility] Comment on above: Order Comment: Speci men Type: BLOOD SPECIMENOrdering Facility: [facility] Address: [address] [place] [address] Performed By: #### 1 9123-9, 2777-1, 13645-8, 45263-1 ####[facility] LABCLIA [id number] [place] [address] [place] CASE MANAGEMon 07-02-2024 CASE MANAGEM Normal [facility] CBC W Auto Differential pane l (Bld)on 07-02-2024 Basophils (Bld) [#/Vol] 0.08 10*3/uL Normal <0.11 [facility] Comment on above: Order Comment: Speci men Type: BLOOD SPECIMENOrdering Facility: [facility] Address: [address] [place] [address] Performed By: #### 5 7021-8 ####[facility] LABCLIA [id number] [place] [address] [place] Basophils/100 WBC (Bld) 0.8 % Normal [facility] Comment on above: Order Comment: Speci men Type: BLOOD SPECIMENOrdering Facility: [facility] Address: [address] [place] [address] Performed By: #### 5 7021-8 ####[facility] LABCLIA [id number] [place] [address] [place] Differential cell count method Nom (Bld) Auto Normal [facility] Comment on above: Order Comment: Speci men Type: BLOOD SPECIMENOrdering Facility: [facility] Address: [address] [place] [address] Performed By: #### 5 7021-8 ####[facility] LABIA [id number] [place] [address] [place] Eosinophils (Bld) [#/Vol] 0.59 10*3/uL High <0.46 [facility] Comment on above: Order Comment: Speci men Type: BLOOD SPECIMENOrdering Facility: [facility] Address: [address] [place] [address] Performed By: #### 5 7021-8 ####[facility] LABIA [id number] [place] [address] [place] Eosinophils/100 WBC (Bld) 5.8 % Normal [facility] Comment on above: Order Comment: Speci men Type: BLOOD SPECIMENOrdering Facility: [facility] Address: [address] [place] [address] Performed By: #### 5 7021-8 ####[facility] LABIA [id number] [place] [address] [place] Erythrocyte distribution width (RBC) [Ratio] 14.7 % Normal 11.5-15.0 [facility] Comment on above: Order Comment: Speci men Type: BLOOD SPECIMENOrdering Facility: [facility] Address: [address] [place] [address] Performed By: #### 5 7021-8 ####[facility] LABIA [id number] [place] [address] [place] Hematocrit (Bld) [Volume fraction] 50.2 % Normal 39.0-51.0 [facility] Comment on above: Order Comment: Speci men Type: BLOOD SPECIMENOrdering Facility: [facility] Address: [address] [place] [address] Performed By: #### 5 7021-8 ####[facility] LABCLIA [id number] [place] [address] [place] Hemoglobin (Bld) [Mass/Vol] 15.6 g/dL Normal 13.0-17.0 [facility] Comment on above: Order Comment: Speci men Type: BLOOD SPECIMENOrdering Facility: [facility] Address: [address] [place] [address] Performed By: #### 5 7021-8 ####[facility] LABIA [id number] [place] [address] [place] Immature granulocytes (Bld) [#/Vol] 0.07 10*3/uL Normal <0.10 [facility] Comment on above: Order Comment: Speci men Type: BLOOD SPECIMENOrdering Facility: [facility] Address: [address] [place] [address] Performed By: #### 5 7021-8 ####[facility] LABIA [id number] [place] [address] [place] Immature granulocytes/100 WBC (Bld) 0.7 % Normal [facility] Comment on above: Order Comment: Speci men Type: BLOOD SPECIMENOrdering Facility: [facility] Address: [address] [place] [address] Performed By: #### 5 7021-8 ####[facility] LABIA [id number] [place] [address] [place] Lymphocytes (Bld) [#/Vol] 1.51 10*3/uL Normal 1.00-4.00 [facility] Comment on above: Order Comment: Speci men Type: BLOOD SPECIMENOrdering Facility: [facility] Address: [address] [place] [address] Performed By: #### 5 7021-8 ####[facility] LABIA [id number] [place] [address] [place] Lymphocytes/100 WBC (Bld) 14.9 % Normal [facility] Comment on above: Order Comment: Speci men Type: BLOOD SPECIMENOrdering Facility: [facility] Address: [address] [place] [address] Performed By: #### 5 7021-8 ####[facility] LABIA [id number] [place] [address] [place] MCH (RBC) [Entitic mass] 26.6 pg Normal 26.0-34.0 [facility] Comment on above: Order Comment: Speci men Type: BLOOD SPECIMENOrdering Facility: [facility] Address: [address] [place] [address] Performed By: #### 5 7021-8 ####[facility] [id number] [place] [address] [place] MCHC (RBC) [Mass/Vol] 31.1 g/dL Normal 30.5-36.0 [facility] Comment on above: Order Comment: Speci men Type: BLOOD SPECIMENOrdering Facility: [facility] Address: [address] [place] [address] Performed By: #### 5 7021-8 ####[facility] [id number] [place] [address] [place] MCV (RBC) [Entitic vol] 85.5 fL Normal 80.0-100.0 [facility] Comment on above: Order Comment: Speci men Type: BLOOD SPECIMENOrdering Facility: [facility] Address: [address] [place] [address] Performed By: #### 5 7021-8 ####[facility] LABIA [id number] [place] [address] [place] Monocytes (Bld) [#/Vol] 0.89 10*3/uL High <0.87 [facility] Comment on above: Order Comment: Speci men Type: BLOOD SPECIMENOrdering Facility: [facility] Address: [address] [place] [address] Performed By: #### 5 7021-8 ####[facility] LABCLIA [id number] [place] [address] [place] Monocytes/100 WBC (Bld) 8.8 % Normal [facility] Comment on above: Order Comment: Speci men Type: BLOOD SPECIMENOrdering Facility: [facility] Address: [address] [place] [address] Performed By: #### 5 7021-8 ####[facility] LABCLIA [id number] [place] [address] [place] Neutrophils (Bld) [#/Vol] 6.97 10*3/uL Normal 1.45-7.50 [facility] Comment on above: Order Comment: Speci men Type: BLOOD SPECIMENOrdering Facility: [facility] Address: [address] [place] [address] Performed By: #### 5 7021-8 ####[facility] LABCLIA [id number] [place] [address] [place] Neutrophils/100 WBC (Bld) 69.0 % Normal [facility] Comment on above: Order Comment: Speci men Type: BLOOD SPECIMENOrdering Facility: [facility] Address: [address] [place] [address] Performed By: #### 5 7021-8 ####[facility] LABCLIA [id number] [place] [address] [place] Nucleated RBC (Bld) [#/Vol] 10*3/uL Normal <0.01 [facility] Comment on above: Order Comment: Speci men Type: BLOOD SPECIMENOrdering Facility: [facility] Address: [address] [place] [address] Performed By: #### 5 7021-8 ####[facility] LABCLIA [id number] [place] [address] [place] Nucleated RBC/100 WBC (Bld) [Ratio] 0.0 /100 WBC Normal [facility] Comment on above: Order Comment: Speci men Type: BLOOD SPECIMENOrdering Facility: [facility] Address: [address] [place] [address] Performed By: #### 5 7021-8 ####[facility] LABCLIA [id number] [place] [address] [place] Platelet mean volume (Bld) [Entitic vol] 11.6 fL Normal 9.0-12.7 [facility] Comment on above: Order Comment: Speci men Type: BLOOD SPECIMENOrdering Facility: [facility] Address: [address] [place] [address] Performed By: #### 5 7021-8 ####[facility] LABIA [id number] [place] [address] [place] Platelets (Bld) [#/Vol] 121 10*3/uL Low 150-400 [facility] Comment on above: Order Comment: Speci men Type: BLOOD SPECIMENOrdering Facility: [facility] Address: [address] [place] [address] Result Comment: Resu lts checked and verified.No clot detected. Performed By: #### 5 7021-8 ####[facility] LABIA [id number] [place] [address] [place] RBC (Bld) [#/Vol] 5.87 10*6/uL Normal 4.20-6.00 [facility] Comment on above: Order Comment: Speci men Type: BLOOD SPECIMENOrdering Facility: [facility] Address: [address] [place] [address] Performed By: #### 5 7021-8 ####[facility] LABCLIA [id number] [place] [address] [place] WBC (Bld) [#/Vol] 10.11 10*3/uL Normal 3.70-11.00 [facility] Comment on above: Order Comment: Speci men Type: BLOOD SPECIMENOrdering Facility: [facility] Address: [address] [place] [address] Performed By: #### 5 7021-8 ####[facility] LABCLIA [id number] [place] [address] [place] CONSULT PROGon 07-02-2024 CONSULT PROG Normal [facility] Hepatic function 2000 panelo n 07-02-2024 Albumin [Mass/Vol] 3.8 g/dL Low 3.9-4.9 [facility] Comment on above: Order Comment: Speci men Type: BLOOD SPECIMENOrdering Facility: [facility] Address: [address] [place] [address] Performed By: #### 1 9123-9, 2777-1, 21545-5, 59799-0 ####[facility] LABCLIA [id number] [place] [address] [place] ALP [Catalytic activity/Vol] 97 U/L Normal 38-113 [facility] Comment on above: Order Comment: Speci men Type: BLOOD SPECIMENOrdering Facility: [facility] Address: [address] [place] [address] Result Comment: Resu lts may be falsely decreased due to interference from hemolysis. Suggest reorder as clinically indicated. Performed By: #### 1 9123-9, 2777-1, 15024-4, 01012-8 ####[facility] LABCLIA [id number] [place] [address] [place] ALT [Catalytic activity/Vol] 172 U/L High 10-54 [facility] Comment on above: Order Comment: Speci men Type: BLOOD SPECIMENOrdering Facility: [facility] Address: [address] [place] [address] Result Comment: Resu lts may be falsely increased due to interference from hemolysis. Suggest reorder as clinically indicated. Performed By: #### 1 9123-9, 2777-1, 35088-6, 76039-1 ####[facility] LABCLIA [id number] [place] [address] [place] AST [Catalytic activity/Vol] 132 U/L High 14-40 [facility] Comment on above: Order Comment: Speci men Type: BLOOD SPECIMENOrdering Facility: [facility] Address: [address] [place] [address] Result Comment: Resu lts may be falsely increased due to interference from hemolysis. Suggest reorder as clinically indicated. Performed By: #### 1 9123-9, 2777-1, 36337-6, 24531-0 ####[facility] LABCLIA [id number] [place] [address] [place] Bilirubin [Mass/Vol] 1.0 mg/dL Normal 0.2-1.3 [facility] Comment on above: Order Comment: Speci men Type: BLOOD SPECIMENOrdering Facility: [facility] Address: [address] [place] [address] Performed By: #### 1 9123-9, 2777-1, 90513-3, 32129-3 ####[facility] LABCLIA [id number] [place] [address] [place] Bilirubin.conjugate d [Mass/Vol] mg/dL Normal <0.2 [facility] Comment on above: Order Comment: Speci men Type: BLOOD SPECIMENOrdering Facility: [facility] Address: [address] [place] [address] Result Comment: Resu lts may be falsely decreased due to interference from hemolysis. Suggest reorder as clinically indicated. Performed By: #### 1 9123-9, 2777-1, 65316-4, 40443-8 ####[facility] LABCLIA [id number] [place] [address] [place] Protein [Mass/Vol] 6.7 g/dL Normal 6.3-8.0 [facility] Comment on above: Order Comment: Speci men Type: BLOOD SPECIMENOrdering Facility: [facility] Address: [address] [place] [address] Performed By: #### 1 9123-9, 2777-1, 31274-3, 50648-6 ####[facility] LABCLIA [id number] [place] [address] [place] Magnesium SerPl-mCncon 07-02 Magnesium [Mass/Vol] 2.0 mg/dL Normal 1.7-2.3 [facility] Comment on above: Order Comment: Speci men Type: BLOOD SPECIMENOrdering Facility: [facility] Address: [address] [place] [address] Performed By: #### 1 9123-9, 2777-1, 19960-9, 20419-9 ####[facility] LABCLIA [id number] [place] [address] [place] Phosphate SerPl-mCncon 07-02 Phosphate [Mass/Vol] 3.0 mg/dL Normal 2.7-4.8 [facility] Comment on above: Order Comment: Speci men Type: BLOOD SPECIMENOrdering Facility: [facility] Address: [address] [place] [address] Performed By: #### 1 9123-9, 2777-1, 28760-7, 52151-4 ####[facility] LABCLIA [id number] [place] [address] [place] TOXICOLOGY PANEL BLDon 07-02 Acetaminophen [Mass/Vol] ug/mL Low 10-30 [facility] Comment on above: Order Comment: Speci men Type: BLOOD SPECIMENOrdering Facility: [facility] Address: [address] [place] [address] Result Comment: Toxi c > 150 ug/mL 4 hours post ingestionThe Jhoana Gordon nomogram can be used to estimate the probability of hepatotoxicity via the relationship of plasma acetaminophen concentration to the post ingestion interval. (Sonia. Pediatrics. 1975. 55:871 to 876 and Jhoana et al. Arch Nanny/Household Manager Med. 1981. 141:380 to 385).Reference ranges and high/low indicator flags are provided as general guidelines only. The treating physician must determine appropriate target levels/dosing based on the specific clinical situation. Performed By: #### T OXP ####[facility] LABCLIA [id number] [place] [address] [place] Ethanol [Mass/Vol] mg/dL Normal <11 [facility] Comment on above: Order Comment: Speci men Type: BLOOD SPECIMENOrdering Facility: [facility] Address: [address] [place] [address] Performed By: #### T OXP ####[facility] LABIA [id number] [place] [address] [place] Salicylates [Mass/Vol] mg/dL Low 3.0-30.0 [facility] Comment on above: Order Comment: Speci men Type: BLOOD SPECIMENOrdering Facility: [facility] Address: [address] [place] [address] Result Comment: The therapeutic range varies and has been reported to be 3.0 to 10.0 mg/dL for anti pyretic/analgesic conditions and 15.0 to 30.0 mg/dL for anti inflammatory/rheumatic fever conditions. Ranges published by the instrument canvas cutter.Reference ranges and high/low indicator flags are provided as general guidelines only. The treating physician must determine appropriate target levels/dosing based on the specific clinical situation. Performed By: #### T OXP ####[facility] LABCLIA [id number] [place] [id number] [place] TOXICOLOGY SCREEN, ROUTINE U RINEon 07-02-2024 Amphetamines Confirm (U) [Mass/Vol] Positive Abnormal Negative [facility] Comment on above: Order Comment: Speci men Type: URINE SPECIMENOrdering Facility: [facility] Address: [address] [place] [address] Result Comment: Cuto ff threshold at 1000 ng/mL. Performed By: #### U TOX2 ####[facility] LABCLIA [id number] [place] [address] [place] BARBITURATES, URINE Negative Normal Negative [facility] Comment on above: Order Comment: Speci men Type: URINE SPECIMENOrdering Facility: [facility] Address: [address] [place] [address] Result Comment: Cuto ff threshold at 200 ng/mL. Performed By: #### U TOX2 ####[facility] LABCLIA [id number] [place] [address] [place] BENZODIAZEPINES, UR Positive Abnormal Negative [facility] Comment on above: Order Comment: Speci men Type: URINE SPECIMENOrdering Facility: [facility] Address: [address] [place] [address] Result Comment: Cuto ff threshold at 200 ng/mL. Performed By: #### U TOX2 ####[facility] LABCLIA [id number] [place] [address] [place] Cannabinoids Screen Ql (U) Positive Abnormal Negative [facility] Comment on above: Order Comment: Speci men Type: URINE SPECIMENOrdering Facility: [facility] Address: [address] [place] [address] Result Comment: Cuto ff threshold at 50 ng/mL. Performed By: #### U TOX2 ####[facility] LABCLIA [id number] [place] [address] [place] Cocaine Ql (U) Negative Normal Negative [facility] Comment on above: Order Comment: Speci men Type: URINE SPECIMENOrdering Facility: [facility] Address: [address] [place] [address] Result Comment: Cuto ff threshold at 300 ng/mL. Performed By: #### U TOX2 ####[facility] LABCLIA [id number] [place] [address] [place] Ethanol (U) [Mass/Vol] <11 Normal <11 [facility] Comment on above: Order Comment: Speci men Type: URINE SPECIMENOrdering Facility: [facility] Address: [address] [place] [address] Performed By: #### U TOX2 ####[facility] LABIA [id number] [place] [address] [place] Opiates Screen Ql (U) Positive Abnormal Negative [facility] Comment on above: Order Comment: Speci men Type: URINE SPECIMENOrdering Facility: [facility] Address: [address] [place] [address] Result Comment: Cuto ff threshold at 300 ng/mL. Performed By: #### U TOX2 ####[facility] LABIA [id number] [place] [address] [place] oxyCODONE cutoff Screen (U) [Mass/Vol] Positive Abnormal Negative [facility] Comment on above: Order Comment: Speci men Type: URINE SPECIMENOrdering Facility: [facility] Address: [address] [place] [address] Result Comment: Cuto ff threshold at 100 ng/mL. Performed By: #### U TOX2 ####[facility] LABIA [id number] [place] [address] [place] Phencyclidine Ql (U) Negative Normal Negative [facility] Comment on above: Order Comment: Speci men Type: URINE SPECIMENOrdering Facility: [facility] Address: [address] [place] [address] Result Comment: Cuto ff threshold at 25 ng/mL. Performed By: #### U TOX2 ####[facility] LABIA [id number] [place] [address] [place] Basic metabolic 2000 panelon 07-01-2024 Anion gap [Moles/Vol] 16 mmol/L High 8-15 [facility] Comment on above: Order Comment: Speci men Type: BLOOD SPECIMENOrdering Facility: [facility] Address: [address] [place] [address] Performed By: #### 2 777-1, 11807-4, 11828-7, 56010-0 ####[facility] LABCLIA [id number] [place] [id number] [place] Calcium [Mass/Vol] 7.5 mg/dL Low 8.5-10.2 [facility] Comment on above: Order Comment: Speci men Type: BLOOD SPECIMENOrdering Facility: [facility] Address: [address] [place] [address] Result Comment: Resu lt rechecked. Performed By: #### 2 777-1, 84914-9, 34807-9, 54860-7 ####[facility] LABIA [id number] [place] [address] [place] Chloride [Moles/Vol] 104 mmol/L Normal 98-107 [facility] Comment on above: Order Comment: Speci men Type: BLOOD SPECIMENOrdering Facility: [facility] Address: [address] [place] [address] Performed By: #### 2 777-1, 68012-7, , 50956-6 ####[facility] LABIA [id number] [place] [address] [place] CO2 [Moles/Vol] 16 mmol/L Low 22-30 [facility] Comment on above: Order Comment: Speci men Type: BLOOD SPECIMENOrdering Facility: [facility] Address: [address] [place] [address] Performed By: #### 2 777-1, 39744-9, , 03800-1 ####[facility] LABIA [id number] [place] [address] [place] Creatinine [Mass/Vol] 0.74 mg/dL Normal 0.73-1.22 [facility] Comment on above: Order Comment: Speci men Type: BLOOD SPECIMENOrdering Facility: [facility] Address: [address] [place] [address] Performed By: #### 2 777-1, 28182-3, 68587-1, 62004-0 ####[facility] LABIA [id number] [place] [id number] [place] Creatinine and Glomerular filtration rate.predicted panel (S/P/Bld) 123 mL/min/1.73m??? Normal >=60 [facility] Comment on above: Order Comment: Khushbu grajeda Type: BLOOD SPECIMENOrdering Facility: [facility] Address: [address] [place] [address] Result Comment: Faye mated Glomerular Filtration Rate (eGFR) is calculated using the 2020 CKD-EPI creatinine equation. This equation utilizes serum creatinine, sex, and age as parameters. The creatinine assay has traceable calibration to isotope dilution-mass spectrometry. Refer to KDIGO guidelines for clinical interpretation. In patients with unstable renal function, e.g. those with acute kidney injury, the eGFR may not accurately reflect actual GFR. Performed By: #### 2 777-1, 88806-8, 43783-8, 83919-9 ####[facility] LABIA [id number] [place] [id number] [place] Glucose [Mass/Vol] 82 mg/dL Normal 74-99 [facility] Comment on above: Order Comment: Khushbu grajeda Type: BLOOD SPECIMENOrdering Facility: [facility] Address: [address] [place] [address] Result Comment: The [place] Diabetes Association (ADA) provides guidance for cutoff values for fasting glucose and random glucose. The ADA defines fasting as no caloric intake for at least 8 hours. Fasting plasma glucose results between 100 to 125 mg/dL indicate increased risk for diabetes (prediabetes).Fasting plasma glucose results greater than or equal to 126 mg/dL meet the criteria for diagnosis of diabetes. In the absence of unequivocal hyperglycemia, results should be confirmed by repeat testing. In a patient with classic symptoms of hyperglycemia or hyperglycemic crisis, random plasma glucose results greater than or equal to 200 mg/dL meet the criteria for diagnosis of diabetes.Reference: Standards of Medical Care in Diabetes 2016, [place] [employer]. Diabetes Care. 2016.39(Suppl 1). Performed By: #### 2 777-1, 55052-0, 74943-3, 25044-6 ####[facility] LABCLIA [id number] [place] [id number] [place] Potassium [Moles/Vol] 4.1 mmol/L Normal 3.7-5.1 [facility] Comment on above: Order Comment: Speci men Type: BLOOD SPECIMENOrdering Facility: [facility] Address: [address] [place] [address] Performed By: #### 2 777-1, 42842-0, , 69151-9 ####[facility] [place] [id number] [place] [address] [place] Sodium [Moles/Vol] 136 mmol/L Normal 136-144 [facility] Comment on above: Order Comment: Speci men Type: BLOOD SPECIMENOrdering Facility: [facility] Address: [address] [place] [address] Performed By: #### 2 777-1, 06309-7, , 25661-9 ####[facility] [place] [id number] [place] [address] [place] Urea nitrogen [Mass/Vol] 7 mg/dL Low 9-24 [facility] Comment on above: Order Comment: Speci men Type: BLOOD SPECIMENOrdering Facility: [facility] Address: [address] [place] [address] Performed By: #### 2 777-1, 11811-2, 88520-4, 00867-1 ####[facility] LABIA [id number] [place] [id number] [place] CASE MGT INIT ASSESon 2023 CASE MGT INIT ASSES Normal [facility] CBC W Auto Differential pane l (Bld)on 07-01-2024 Basophils (Bld) [#/Vol] 0.03 10*3/uL Normal <0.11 [facility] Comment on above: Order Comment: Speci men Type: BLOOD SPECIMENOrdering Facility: [facility] Address: [facility] [place] [address] Performed By: #### 5 7021-8 ####[facility] LABCLIA [id number] [place] [address] [place] Basophils/100 WBC (Bld) 0.3 % Normal [facility] Comment on above: Order Comment: Speci men Type: BLOOD SPECIMENOrdering Facility: [facility] Address: [address] [place] [address] Performed By: #### 5 7021-8 ####[facility] LABCLIA [id number] [place] [address] [place] Differential cell count method Nom (Bld) Auto Normal [facility] Comment on above: Order Comment: Speci men Type: BLOOD SPECIMENOrdering Facility: [facility] Address: [address] [place] [address] Performed By: #### 5 7021-8 ####[facility] LABCLIA [id number] [place] [address] [place] Eosinophils (Bld) [#/Vol] 10*3/uL Normal <0.46 [facility] Comment on above: Order Comment: Speci men Type: BLOOD SPECIMENOrdering Facility: [facility] Address: [address] [place] [address] Performed By: #### 5 7021-8 ####[facility] LABCLIA [id number] [place] [address] [place] Eosinophils/100 WBC (Bld) 0.0 % Normal [facility] Comment on above: Order Comment: Speci men Type: BLOOD SPECIMENOrdering Facility: [facility] Address: [address] [place] [address] Performed By: #### 5 7021-8 ####[facility] LABCLIA [id number] [place] [address] [place] Erythrocyte distribution width (RBC) [Ratio] 14.5 % Normal 11.5-15.0 [facility] Comment on above: Order Comment: Speci men Type: BLOOD SPECIMENOrdering Facility: [facility] Address: [address] [place] [address] Performed By: #### 5 7021-8 ####[facility] LABIA [id number] [place] [address] [place] Hematocrit (Bld) [Volume fraction] 39.0 % Normal 39.0-51.0 [facility] Comment on above: Order Comment: Speci men Type: BLOOD SPECIMENOrdering Facility: [facility] Address: [address] [place] [address] Performed By: #### 5 7021-8 ####[facility] LABIA [id number] [place] [address] [place] Hemoglobin (Bld) [Mass/Vol] 12.3 g/dL Low 13.0-17.0 [facility] Comment on above: Order Comment: Speci men Type: BLOOD SPECIMENOrdering Facility: [facility] Address: [address] [place] [address] Performed By: #### 5 7021-8 ####[facility] LABIA [id number] [place] [address] [place] Immature granulocytes (Bld) [#/Vol] 0.04 10*3/uL Normal <0.10 [facility] Comment on above: Order Comment: Speci men Type: BLOOD SPECIMENOrdering Facility: [facility] Address: [address] [place] [address] Performed By: #### 5 7021-8 ####[facility] LABCLIA [id number] [place] [address] [place] Immature granulocytes/100 WBC (Bld) 0.4 % Normal [facility] Comment on above: Order Comment: Speci men Type: BLOOD SPECIMENOrdering Facility: [facility] Address: [address] [place] [address] Performed By: #### 5 7021-8 ####[facility] LABCLIA [id number] [place] [address] [place] Lymphocytes (Bld) [#/Vol] 0.96 10*3/uL Low 1.00-4.00 [facility] Comment on above: Order Comment: Speci men Type: BLOOD SPECIMENOrdering Facility: [facility] Address: [address] [place] [address] Performed By: #### 5 7021-8 ####[facility] LABCLIA [id number] [place] [address] [place] Lymphocytes/100 WBC (Bld) 10.3 % Normal [facility] Comment on above: Order Comment: Speci men Type: BLOOD SPECIMENOrdering Facility: [facility] Address: [address] [place] [address] Performed By: #### 5 7021-8 ####[facility] LABCLIA [id number] [place] [address] [place] MCH (RBC) [Entitic mass] 27.1 pg Normal 26.0-34.0 [facility] Comment on above: Order Comment: Speci men Type: BLOOD SPECIMENOrdering Facility: [facility] Address: [address] [place] [address] Performed By: #### 5 7021-8 ####[facility] LABCLIA [id number] [place] [address] [place] MCHC (RBC) [Mass/Vol] 31.5 g/dL Normal 30.5-36.0 [facility] Comment on above: Order Comment: Speci men Type: BLOOD SPECIMENOrdering Facility: [facility] Address: [address] [place] [address] Performed By: #### 5 7021-8 ####[facility] LABCLIA [id number] [place] [address] [place] MCV (RBC) [Entitic vol] 85.9 fL Normal 80.0-100.0 [facility] Comment on above: Order Comment: Speci men Type: BLOOD SPECIMENOrdering Facility: [facility] Address: [address] [place] [address] Performed By: #### 5 7021-8 ####[facility] LABIA [id number] [place] [address] [place] Monocytes (Bld) [#/Vol] 0.90 10*3/uL High <0.87 [facility] Comment on above: Order Comment: Speci men Type: BLOOD SPECIMENOrdering Facility: [facility] Address: [address] [place] [address] Performed By: #### 5 7021-8 ####[facility] LABIA [id number] [place] [address] [place] Monocytes/100 WBC (Bld) 9.7 % Normal [facility] Comment on above: Order Comment: Speci men Type: BLOOD SPECIMENOrdering Facility: [facility] Address: [address] [place] [address] Performed By: #### 5 7021-8 ####[facility] LABIA [id number] [place] [address] [place] Neutrophils (Bld) [#/Vol] 7.37 10*3/uL Normal 1.45-7.50 [facility] Comment on above: Order Comment: Speci men Type: BLOOD SPECIMENOrdering Facility: [facility] Address: [address] [place] [address] Performed By: #### 5 7021-8 ####[facility] LABIA [id number] [place] [address] [place] Neutrophils/100 WBC (Bld) 79.3 % Normal [facility] Comment on above: Order Comment: Speci men Type: BLOOD SPECIMENOrdering Facility: [facility] Address: [address] [place] [address] Performed By: #### 5 7021-8 ####[facility] LABCLIA [id number] [place] [address] [place] Nucleated RBC (Bld) [#/Vol] 10*3/uL Normal <0.01 [facility] Comment on above: Order Comment: Speci men Type: BLOOD SPECIMENOrdering Facility: [facility] Address: [address] [place] [address] Performed By: #### 5 7021-8 ####[facility] LABIA [id number] [place] [address] [place] Nucleated RBC/100 WBC (Bld) [Ratio] 0.0 /100 WBC Normal [facility] Comment on above: Order Comment: Speci men Type: BLOOD SPECIMENOrdering Facility: [facility] Address: [address] [place] [address] Performed By: #### 5 7021-8 ####[facility] LABIA [id number] [place] [address] [place] Platelet mean volume (Bld) [Entitic vol] 11.5 fL Normal 9.0-12.7 [facility] Comment on above: Order Comment: Speci men Type: BLOOD SPECIMENOrdering Facility: [facility] Address: [address] [place] [address] Performed By: #### 5 7021-8 ####[facility] LABIA [id number] [place] [address] [place] Platelets (Bld) [#/Vol] 108 10*3/uL Low 150-400 [facility] Comment on above: Order Comment: Speci men Type: BLOOD SPECIMENOrdering Facility: [facility] Address: [address] [place] [address] Performed By: #### 5 7021-8 ####[facility] LABCLIA [id number] [place] [address] [place] RBC (Bld) [#/Vol] 4.54 10*6/uL Normal 4.20-6.00 [facility] Comment on above: Order Comment: Speci men Type: BLOOD SPECIMENOrdering Facility: [facility] Address: [address] [place] [address] Performed By: #### 5 7021-8 ####[facility] LABCLIA [id number] [place] [address] [place] WBC (Bld) [#/Vol] 9.30 10*3/uL Normal 3.70-11.00 [facility] Comment on above: Order Comment: Speci men Type: BLOOD SPECIMENOrdering Facility: [facility] Address: [address] [place] [address] Performed By: #### 5 7021-8 ####[facility] LABCLIA [id number] [place] [address] [place] CBC panel Auto (Bld)on 07-01 Erythrocyte distribution width (RBC) [Ratio] 15.3 % High 11.5-15.0 [facility] Comment on above: Order Comment: Speci men Type: BLOOD SPECIMENOrdering Facility: [facility] Address: [address] [place] [address] Performed By: #### 5 8410-2 ####[facility] LABCLIA [id number] [place] [id number] [place] Hematocrit (Bld) [Volume fraction] 45.7 % Normal 39.0-51.0 [facility] Comment on above: Order Comment: Speci men Type: BLOOD SPECIMENOrdering Facility: [facility] Address: [address] [place] [address] Performed By: #### 5 8410-2 ####[facility] LABCLIA [id number] [place] [address] [place] Hemoglobin (Bld) [Mass/Vol] 14.9 g/dL Normal 13.0-17.0 [facility] Comment on above: Order Comment: Speci men Type: BLOOD SPECIMENOrdering Facility: [facility] Address: [address] [place] [address] Performed By: #### 5 8410-2 ####[facility] LABIA [id number] [place] [address] [place] MCH (RBC) [Entitic mass] 27.7 pg Normal 26.0-34.0 [facility] Comment on above: Order Comment: Speci men Type: BLOOD SPECIMENOrdering Facility: [facility] Address: [address] [place] [address] Performed By: #### 5 8410-2 ####[facility] [id number] [place] [address] [place] MCHC (RBC) [Mass/Vol] 32.6 g/dL Normal 30.5-36.0 [facility] Comment on above: Order Comment: Speci men Type: BLOOD SPECIMENOrdering Facility: [facility] Address: [address] [place] [address] Performed By: #### 5 8410-2 ####[facility] [id number] [place] [address] [place] MCV (RBC) [Entitic vol] 85.1 fL Normal 80.0-100.0 [facility] Comment on above: Order Comment: Speci men Type: BLOOD SPECIMENOrdering Facility: [facility] Address: [address] [place] [address] Performed By: #### 5 8410-2 ####[facility] [id number] [place] [address] [place] Nucleated RBC (Bld) [#/Vol] 10*3/uL Normal <0.01 [facility] Comment on above: Order Comment: Speci men Type: BLOOD SPECIMENOrdering Facility: [facility] Address: [address] [place] [address] Performed By: #### 5 8410-2 ####[facility] LABCLIA [id number] [place] [address] [place] Platelet mean volume (Bld) [Entitic vol] 12.3 fL Normal 9.0-12.7 [facility] Comment on above: Order Comment: Speci men Type: BLOOD SPECIMENOrdering Facility: [facility] Address: [address] [place] [address] Performed By: #### 5 8410-2 ####[facility] LABCLIA [id number] [place] [address] [place] Platelets (Bld) [#/Vol] 133 10*3/uL Low 150-400 [facility] Comment on above: Order Comment: Speci men Type: BLOOD SPECIMENOrdering Facility: [facility] Address: [address] [place] [address] Performed By: #### 5 8410-2 ####[facility] LABCLIA [id number] [place] [address] [place] RBC (Bld) [#/Vol] 5.37 10*6/uL Normal 4.20-6.00 [facility] Comment on above: Order Comment: Speci men Type: BLOOD SPECIMENOrdering Facility: [facility] Address: [address] [place] [address] Performed By: #### 5 8410-2 ####[facility] LABCLIA [id number] [place] [address] [place] WBC (Bld) [#/Vol] 7.99 10*3/uL Normal 3.70-11.00 [facility] Comment on above: Order Comment: Speci men Type: BLOOD SPECIMENOrdering Facility: [facility] Address: [address] [place] [address] Performed By: #### 5 8410-2 ####[facility] LABCLIA [id number] [place] [address] [place] CONSULT PROGon 07-01-2024 CONSULT PROG Normal [facility] Comprehensive metabolic 2000 panelon 07-01-2024 Albumin [Mass/Vol] 4.0 g/dL Normal 3.9-4.9 [facility] Comment on above: Order Comment: Speci men Type: BLOOD SPECIMENOrdering Facility: [facility] Address: [address] [place] [address] Result Comment: Resu lt rechecked. Performed By: #### 2 4323-8, 2323-2 ####[facility] LABCLIA [id number] [place] [address] [place] ALP [Catalytic activity/Vol] 90 U/L Normal 38-113 [facility] Comment on above: Order Comment: Speci men Type: BLOOD SPECIMENOrdering Facility: [facility] Address: [address] [place] [address] Performed By: #### 2 4323-8, 2323-2 ####[facility] LABCLIA [id number] [place] [address] [place] ALT [Catalytic activity/Vol] 214 U/L High 10-54 [facility] Comment on above: Order Comment: Speci men Type: BLOOD SPECIMENOrdering Facility: [facility] Address: [address] [place] [address] Performed By: #### 2 4323-8, 2323-2 ####[facility] LABCLIA [id number] [place] [address] [place] Anion gap [Moles/Vol] 11 mmol/L Normal 8-15 [facility] Comment on above: Order Comment: Speci men Type: BLOOD SPECIMENOrdering Facility: [facility] Address: [address] [place] [address] Performed By: #### 2 4323-8, 2324-01 ####[facility] LABCLIA [id number] [place] [address] [place] AST [Catalytic activity/Vol] 176 U/L High 14-40 [facility] Comment on above: Order Comment: Speci men Type: BLOOD SPECIMENOrdering Facility: [facility] Address: [address] [place] [address] Result Comment: Resu lts may be falsely increased due to interference from hemolysis. Suggest reorder as clinically indicated. Performed By: #### 2 4323-8, 2324-01 ####[facility] LABIA [id number] [place] [address] [place] Bilirubin [Mass/Vol] 1.5 mg/dL High 0.2-1.3 [facility] Comment on above: Order Comment: Speci men Type: BLOOD SPECIMENOrdering Facility: [facility] Address: [address] [place] [address] Performed By: #### 2 4323-8, 2324-01 ####[facility] LABCLIA [id number] [place] [address] [place] Calcium [Mass/Vol] 8.4 mg/dL Low 8.5-10.2 [facility] Comment on above: Order Comment: Speci men Type: BLOOD SPECIMENOrdering Facility: [facility] Address: [address] [place] [address] Performed By: #### 2 4323-8, 2324-01 ####[facility] LABCLIA [id number] [place] [address] [place] Chloride [Moles/Vol] 101 mmol/L Normal 98-107 [facility] Comment on above: Order Comment: Speci men Type: BLOOD SPECIMENOrdering Facility: [facility] Address: [address] [place] [address] Performed By: #### 2 4323-8, 2324-01 ####[facility] LABCLIA [id number] [place] [address] [place] CO2 [Moles/Vol] 25 mmol/L Normal 22-30 [facility] Comment on above: Order Comment: Speci men Type: BLOOD SPECIMENOrdering Facility: [facility] Address: [address] [place] [address] Performed By: #### 2 4323-8, 2324-01 ####[facility] LABIA [id number] [place] [address] [place] Creatinine [Mass/Vol] 1.02 mg/dL Normal 0.73-1.22 [facility] Comment on above: Order Comment: Speci men Type: BLOOD SPECIMENOrdering Facility: [facility] Address: [address] [place] [address] Performed By: #### 2 4328, 2324-01 ####[facility] [place] [id number] [place] [address] [place] Creatinine and Glomerular filtration rate.predicted panel (S/P/Bld) 100 mL/min/1.73m??? Normal >=60 [facility] Comment on above: Order Comment: Speci men Type: BLOOD SPECIMENOrdering Facility: [facility] Address: [address] [place] [address] Result Comment: Faye mated Glomerular Filtration Rate (eGFR) is calculated using the 2020 CKD-EPI creatinine equation. This equation utilizes serum creatinine, sex, and age as parameters. The creatinine assay has traceable calibration to isotope dilution-mass spectrometry. Refer to KDIGO guidelines for clinical interpretation. In patients with unstable renal function, e.g. those with acute kidney injury, the eGFR may not accurately reflect actual GFR. Performed By: #### 2 4323-8, 2324-01 ####[facility] LABIA [id number] [place] [address] [place] Glucose [Mass/Vol] 102 mg/dL High 74-99 [facility] Comment on above: Order Comment: Speci men Type: BLOOD SPECIMENOrdering Facility: [facility] Address: [address] [place] [address] Result Comment: The [place] Diabetes [employer] (ADA) provides guidance for cutoff values for fasting glucose and random glucose. The ADA defines fasting as no caloric intake for at least 8 hours. Fasting plasma glucose results between 100 to 125 mg/dL indicate increased risk for diabetes (prediabetes).Fasting plasma glucose results greater than or equal to 126 mg/dL meet the criteria for diagnosis of diabetes. In the absence of unequivocal hyperglycemia, results should be confirmed by repeat testing. In a patient with classic symptoms of hyperglycemia or hyperglycemic crisis, random plasma glucose results greater than or equal to 200 mg/dL meet the criteria for diagnosis of diabetes.Reference: Standards of Medical Care in Diabetes 2016, [place] [employer]. Diabetes Care. 2016.39(Suppl 1). Performed By: #### 2 4323-8, 2323-2 ####[facility] LABCLIA [id number] [place] [address] [place] Potassium [Moles/Vol] 4.1 mmol/L Normal 3.7-5.1 [facility] Comment on above: Order Comment: Khushbu grajeda Type: BLOOD SPECIMENOrdering Facility: [facility] Address: [address] [place] [address] Performed By: #### 2 4323-8, 2323-2 ####[facility] LABCLIA [id number] [place] [address] [place] Protein [Mass/Vol] 6.4 g/dL Normal 6.3-8.0 [facility] Comment on above: Order Comment: Khushbu grajeda Type: BLOOD SPECIMENOrdering Facility: [facility] Address: [address] [place] [address] Result Comment: Resu lt rechecked. Performed By: #### 2 4323-8, 2323-2 ####[facility] LABCLIA [id number] [place] [address] [place] Sodium [Moles/Vol] 137 mmol/L Normal 136-144 [facility] Comment on above: Order Comment: Speci men Type: BLOOD SPECIMENOrdering Facility: [facility] Address: [address] [place], [place] [address] Performed By: #### 2 4323-8, 2 ####[facility] LABCLIA [id number] [place] [address] [place] Urea nitrogen [Mass/Vol] 10 mg/dL Normal 9-24 [facility] Comment on above: Order Comment: Speci men Type: BLOOD SPECIMENOrdering Facility: [facility] Address: [address] [place] [address] Performed By: #### 2 4323-8, 2324-01 ####[facility] LABCLIA [id number] [place] [address] [place] Ethanol Gas chromatography [ Mass/Vol]on 07-01-2024 Ethanol [Mass/Vol] mg/dL Normal <5 [facility] Comment on above: Order Comment: Speci men Type: BLOOD SPECIMENOrdering Facility: [facility] Address: [address] [place] [address] Result Comment: Ther apeutic range for methanol toxicity 100 - 150 mg/dL.Source: AACT Practice Guidelines on the Treatment of Methanol Poisoning.For medical purposes only. Not valid for forensic use.This test was developed and its performance characteristics determined by [facility]'s Iraj Huston [facility] [place] ([facility]). It has not been cleared or approved by the FDA. -[facility] is regulated under CLIA as qualified to perform high-complexity testing. This test is used for clinical purposes. It should not be regarded as investigational or for research. Performed By: #### 1 4336-2 ####[facility] LABCLIA [id number] [place] [address] [place] Ethanol SerPl-mCncon 024 Ethanol [Mass/Vol] mg/dL Normal <11 [facility] Comment on above: Order Comment: Speci men Type: BLOOD SPECIMENOrdering Facility: [facility] Address: [address] [place] [address] Performed By: #### 5 643-2 ####[facility] LABCLIA [id number] [place] [address] [place] GGT SerPl-cCncon 07-01-2024 Gamma glutamyl transferase [Catalytic activity/Vol] 199 U/L High 10-70 [facility] Comment on above: Order Comment: Speci men Type: BLOOD SPECIMENOrdering Facility: [facility] Address: [address] [place] [address] Performed By: #### 2 4323-8, 2324-2 ####[facility] LABCLIA [id number] [place] [address] [place] Hepatic function 2000 panelo n 07-01-2024 Albumin [Mass/Vol] 2.6 g/dL Low 3.9-4.9 [facility] Comment on above: Order Comment: Speci men Type: BLOOD SPECIMENOrdering Facility: [facility] Address: [address] [place] [address] Result Comment: Resu lt rechecked. Performed By: #### 2 777-1, 01133-6, 93642-4, 63680-5 ####[facility] LABCLIA [id number] [place] [address] [place] ALP [Catalytic activity/Vol] 54 U/L Normal 38-113 [facility] Comment on above: Order Comment: Speci men Type: BLOOD SPECIMENOrdering Facility: [facility] Address: [address] [place] [address] Performed By: #### 2 777-1, 54759-4, , 48223-1 ####[facility] LABCLIA [id number] [place] [id number] [place] ALT [Catalytic activity/Vol] 113 U/L High 10-54 [facility] Comment on above: Order Comment: Speci men Type: BLOOD SPECIMENOrdering Facility: [facility] Address: [address] [place] [address] Performed By: #### 2 777-1, 56381-8, , 44712-2 ####[facility] LABCLIA [id number] [place] [id number] [place] AST [Catalytic activity/Vol] 100 U/L High 14-40 [facility] Comment on above: Order Comment: Speci men Type: BLOOD SPECIMENOrdering Facility: [facility] Address: [address] [place] [address] Performed By: #### 2 777-1, 08863-8, , 00187-1 ####[facility] LABCLIA [id number] [place] [address] [place] Bilirubin [Mass/Vol] 0.8 mg/dL Normal 0.2-1.3 [facility] Comment on above: Order Comment: Speci men Type: BLOOD SPECIMENOrdering Facility: [facility] Address: [address] [place] [address] Performed By: #### 2 777-1, 71093-6, , 35186-4 ####[facility] LABCLIA [id number] [place] [address] [place] Bilirubin.conjugate d [Mass/Vol] mg/dL Normal <0.2 [facility] Comment on above: Order Comment: Speci men Type: BLOOD SPECIMENOrdering Facility: [facility] Address: [address] [place] [address] Performed By: #### 2 777-1, 73591-1, , 12348-0 ####[facility] LABCLIA [id number] [place] [id number] [place] Protein [Mass/Vol] 4.2 g/dL Low 6.3-8.0 [facility] Comment on above: Order Comment: Khushbu grajeda Type: BLOOD SPECIMENOrdering Facility: [facility] Address: [address] [place] [address] Result Comment: Resu lt rechecked. Performed By: #### 2 777-1, 60109-1, 48459-5, 01472-4 ####[facility] LABCLIA [id number] [place] [address] [place] Magnesium SerPl-mCncon 07-01 Magnesium [Mass/Vol] 1.2 mg/dL Low 1.7-2.3 [facility] Comment on above: Order Comment: Khushbu grajeda Type: BLOOD SPECIMENOrdering Facility: [facility] Address: [address] [place] [address] Performed By: #### 2 777-1, 94979-3, , 43596-6 ####[facility] LABCLIA [id number] [place] [address] [place] PT panel Coag (PPP)on 2023 INR Coag (PPP) [Relative time] 1.0 {INR} Normal 0.9-1.3 [facility] Comment on above: Order Comment: Khushbu grajeda Type: BLOOD SPECIMENOrdering Facility: [facility] Address: [address] [place] [address] Result Comment: Salma min K Antagonist (VKA) Therapeutic Range: INR 2 to 3 (Target INR of 2.5)Note: For patients treated with VKA drugs, such as warfarin, the [place] [employer] 2012 Guideline recommends a therapeutic INR range of 2 to 3 (target INR of 2.5). This recommendation includes high-risk patients with antiphospholipid syndrome with previous arterial or venous thromboembolism, current-generation mechanical or bioprosthetic aortic heart valve replacement.Note: Patients with mechanical aortic valve replacement and additional risk factors for thromboembolic events (atrial fibrillation, previous thromboembolism, LV dysfunction, hypercoagulable conditions) or an older generation mechanical AVR (i.e., ball in-Cage) or any mechanical MVR should have a INR therapeutic range of 2.5 to 3.5 (target INR of 3).Harley GH, et al. Chest 2012, 141:7S-47SNishimura RA, et al. [facility] 2017, 70: 252-289 Performed By: #### 3 4528-0 ####[facility] LABIA [id number] [place] [address] [place] PT Coag (PPP) [Time] 11.1 s Normal 9.7-13.0 [facility] Comment on above: Order Comment: Speci men Type: BLOOD SPECIMENOrdering Facility: [facility] Address: [address] [place] [address] Performed By: #### 3 4528-0 ####[facility] [place] [id number] [place] [address] [place] Phosphate SerPl-mCncon 07-01 Phosphate [Mass/Vol] 2.4 mg/dL Low 2.7-4.8 [facility] Comment on above: Order Comment: Speci men Type: BLOOD SPECIMENOrdering Facility: [facility] Address: [address] [place] [address] Performed By: #### 2 777-1, 64702-6, 34869-8, 96948-9 ####[facility] [id number] [place] [address] [place] ANES POSTPROC EVALon 024 ANES POSTPROC EVAL Normal [facility] BRIEF OP NOTon 06-30-2024 BRIEF OP NOT Normal [facility] CONSULTon 06-30-2024 CONSULT Normal [facility] NURSING PROGon 06-30-2024 NURSING PROG Normal [facility] OPERATIVE NOon 06-30-2024 OPERATIVE NO Normal [facility] ANES PRE-OPon 06-29-2024 ANES PRE-OP Normal [facility] CBC W Auto Differential pane l (Bld)on 06-29-2024 Basophils (Bld) [#/Vol] 0.09 10*3/uL Normal <0.11 [facility] Comment on above: Order Comment: Speci men Type: BLOOD SPECIMENOrdering Facility: [facility] Address: [address] [place] [address] Performed By: #### 5 7021-8 ####[facility] LABCLIA [id number] [place] [address] [place] Basophils/100 WBC (Bld) 1.5 % Normal [facility] Comment on above: Order Comment: Speci men Type: BLOOD SPECIMENOrdering Facility: [facility] Address: [address] [place] [address] Performed By: #### 5 7021-8 ####[facility] LABCLIA [id number] [place] [address] [place] Differential cell count method Nom (Bld) Auto Normal [facility] Comment on above: Order Comment: Speci men Type: BLOOD SPECIMENOrdering Facility: [facility] Address: [address] [place] [address] Performed By: #### 5 7021-8 ####[facility] LABCLIA [id number] [place] [address] [place] Eosinophils (Bld) [#/Vol] 0.21 10*3/uL Normal <0.46 [facility] Comment on above: Order Comment: Speci men Type: BLOOD SPECIMENOrdering Facility: [facility] Address: [address] [place] [address] Performed By: #### 5 7021-8 ####[facility] LABCLIA [id number] [place] [address] [place] Eosinophils/100 WBC (Bld) 3.4 % Normal [facility] Comment on above: Order Comment: Speci men Type: BLOOD SPECIMENOrdering Facility: [facility] Address: [address] [place] [address] Performed By: #### 5 7021-8 ####[facility] LABCLIA [id number] [place] [address] [place] Erythrocyte distribution width (RBC) [Ratio] 14.6 % Normal 11.5-15.0 [facility] Comment on above: Order Comment: Speci men Type: BLOOD SPECIMENOrdering Facility: [facility] Address: [address] [place] [address] Performed By: #### 5 7021-8 ####[facility] LABCLIA [id number] [place] [address] [place] Hematocrit (Bld) [Volume fraction] 49.7 % Normal 39.0-51.0 [facility] Comment on above: Order Comment: Speci men Type: BLOOD SPECIMENOrdering Facility: [facility] Address: [address] [place] [address] Performed By: #### 5 7021-8 ####[facility] LABIA [id number] [place] [address] [place] Hemoglobin (Bld) [Mass/Vol] 15.9 g/dL Normal 13.0-17.0 [facility] Comment on above: Order Comment: Speci men Type: BLOOD SPECIMENOrdering Facility: [facility] Address: [address] [place] [address] Performed By: #### 5 7021-8 ####[facility] LABIA [id number] [place] [address] [place] Immature granulocytes (Bld) [#/Vol] 0.04 10*3/uL Normal <0.10 [facility] Comment on above: Order Comment: Speci men Type: BLOOD SPECIMENOrdering Facility: [facility] Address: [address] [place] [address] Performed By: #### 5 7021-8 ####[facility] LABIA [id number] [place] [address] [place] Immature granulocytes/100 WBC (Bld) 0.6 % Normal [facility] Comment on above: Order Comment: Speci men Type: BLOOD SPECIMENOrdering Facility: [facility] Address: [address] [place] [address] Performed By: #### 5 7021-8 ####[facility] LABCLIA [id number] [place] [address] [place] Lymphocytes (Bld) [#/Vol] 1.10 10*3/uL Normal 1.00-4.00 [facility] Comment on above: Order Comment: Speci men Type: BLOOD SPECIMENOrdering Facility: [facility] Address: [address] [place] [address] Performed By: #### 5 7021-8 ####[facility] LABCLIA [id number] [place] [address] [place] Lymphocytes/100 WBC (Bld) 17.9 % Normal [facility] Comment on above: Order Comment: Speci men Type: BLOOD SPECIMENOrdering Facility: [facility] Address: [address] [place] [address] Performed By: #### 5 7021-8 ####[facility] LABCLIA [id number] [place] [address] [place] MCH (RBC) [Entitic mass] 26.8 pg Normal 26.0-34.0 [facility] Comment on above: Order Comment: Speci men Type: BLOOD SPECIMENOrdering Facility: [facility] Address: [address] [place] [address] Performed By: #### 5 7021-8 ####[facility] LABCLIA [id number] [place] [address] [place] MCHC (RBC) [Mass/Vol] 32.0 g/dL Normal 30.5-36.0 [facility] Comment on above: Order Comment: Speci men Type: BLOOD SPECIMENOrdering Facility: [facility] Address: [address] [place] [address] Performed By: #### 5 7021-8 ####[facility] LABCLIA [id number] [place] [address] [place] MCV (RBC) [Entitic vol] 83.8 fL Normal 80.0-100.0 [facility] Comment on above: Order Comment: Speci men Type: BLOOD SPECIMENOrdering Facility: [facility] Address: [address] [place] [address] Performed By: #### 5 7021-8 ####[facility] LABCLIA [id number] [place] [address] [place] Monocytes (Bld) [#/Vol] 0.50 10*3/uL Normal <0.87 [facility] Comment on above: Order Comment: Speci men Type: BLOOD SPECIMENOrdering Facility: [facility] Address: [address] [place] [address] Performed By: #### 5 7021-8 ####[facility] LABIA [id number] [place] [address] [place] Monocytes/100 WBC (Bld) 8.1 % Normal [facility] Comment on above: Order Comment: Speci men Type: BLOOD SPECIMENOrdering Facility: [facility] Address: [address] [place] [address] Performed By: #### 5 7021-8 ####[facility] LABCLIA [id number] [place] [address] [place] Neutrophils (Bld) [#/Vol] 4.22 10*3/uL Normal 1.45-7.50 [facility] Comment on above: Order Comment: Speci men Type: BLOOD SPECIMENOrdering Facility: [facility] Address: [address] [place] [address] Performed By: #### 5 7021-8 ####[facility] LABIA [id number] [place] [address] [place] Neutrophils/100 WBC (Bld) 68.5 % Normal [facility] Comment on above: Order Comment: Speci men Type: BLOOD SPECIMENOrdering Facility: [facility] Address: [facility] [place] [address] Performed By: #### 5 7021-8 ####[facility] LABCLIA [id number] [place] [address] [place] Nucleated RBC (Bld) [#/Vol] 10*3/uL Normal <0.01 [facility] Comment on above: Order Comment: Speci men Type: BLOOD SPECIMENOrdering Facility: [facility] Address: [address] [place] [address] Performed By: #### 5 7021-8 ####[facility] LABCLIA [id number] [place] [address] [place] Nucleated RBC/100 WBC (Bld) [Ratio] 0.0 /100 WBC Normal [facility] Comment on above: Order Comment: Speci men Type: BLOOD SPECIMENOrdering Facility: [facility] Address: [address] [place] [address] Performed By: #### 5 7021-8 ####[facility] LABCLIA [id number] [place] [address] [place] Platelet mean volume (Bld) [Entitic vol] 12.3 fL Normal 9.0-12.7 [facility] Comment on above: Order Comment: Speci men Type: BLOOD SPECIMENOrdering Facility: [facility] Address: [address] [place] [address] Performed By: #### 5 7021-8 ####[facility] LABCLIA [id number] [place] [address] [place] Platelets (Bld) [#/Vol] 165 10*3/uL Normal 150-400 [facility] Comment on above: Order Comment: Speci men Type: BLOOD SPECIMENOrdering Facility: [facility] Address: [address] [place] [address] Performed By: #### 5 7021-8 ####[facility] LABCLIA [id number] [place] [address] [place] RBC (Bld) [#/Vol] 5.93 10*6/uL Normal 4.20-6.00 [facility] Comment on above: Order Comment: Speci men Type: BLOOD SPECIMENOrdering Facility: [facility] Address: [address] [place] [address] Performed By: #### 5 7021-8 ####[facility] LABCLIA [id number] [place] [address] [place] WBC (Bld) [#/Vol] 6.16 10*3/uL Normal 3.70-11.00 [facility] Comment on above: Order Comment: Speci men Type: BLOOD SPECIMENOrdering Facility: [facility] Address: [address] [place] [address] Performed By: #### 5 7021-8 ####[facility] LABCLIA [id number] [place] [address] [place] Comprehensive metabolic 2000 panelon 06-29-2024 Albumin [Mass/Vol] 4.9 g/dL Normal 3.9-4.9 [facility] Comment on above: Order Comment: Speci men Type: BLOOD SPECIMENOrdering Facility: [facility] Address: [address] [place] [address] Performed By: #### 2 4323-8 ####[facility] LABCLIA [id number] [place] [id number] [place] ALP [Catalytic activity/Vol] 107 U/L Normal 38-113 [facility] Comment on above: Order Comment: Speci men Type: BLOOD SPECIMENOrdering Facility: [facility] Address: [address] [place] [address] Performed By: #### 2 4323-8 ####[facility] LABCLIA [id number] [place] [address] [place] ALT [Catalytic activity/Vol] 198 U/L High 10-54 [facility] Comment on above: Order Comment: Speci men Type: BLOOD SPECIMENOrdering Facility: [facility] Address: [address] [place] [address] Performed By: #### 2 4323-8 ####[facility] LABCLIA [id number] [place] [address] [place] Anion gap [Moles/Vol] 14 mmol/L Normal 8-15 [facility] Comment on above: Order Comment: Speci men Type: BLOOD SPECIMENOrdering Facility: [facility] Address: [address] [place] [address] Performed By: #### 2 4323-8 ####[facility] LABCLIA [id number] [place] [address] [place] AST [Catalytic activity/Vol] 164 U/L High 14-40 [facility] Comment on above: Order Comment: Speci men Type: BLOOD SPECIMENOrdering Facility: [facility] Address: [address] [place] [address] Performed By: #### 2 4323-8 ####[facility] LABCLIA [id number] [place] [address] [place] Bilirubin [Mass/Vol] 0.8 mg/dL Normal 0.2-1.3 [facility] Comment on above: Order Comment: Speci men Type: BLOOD SPECIMENOrdering Facility: [facility] Address: [address] [place], [place] [address] Performed By: #### 2 4323-8 ####[facility] LABCLIA [id number] [place] [address] [place] Calcium [Mass/Vol] 10.2 mg/dL Normal 8.5-10.2 [facility] Comment on above: Order Comment: Speci men Type: BLOOD SPECIMENOrdering Facility: [facility] Address: [address] [place] [address] Performed By: #### 2 4323-8 ####[facility] LABCLIA [id number] [place] [address] [place] Chloride [Moles/Vol] 100 mmol/L Normal 98-107 [facility] Comment on above: Order Comment: Speci men Type: BLOOD SPECIMENOrdering Facility: [facility] Address: [address] [place] [address] Performed By: #### 2 4323-8 ####[facility] LABCLIA [id number] [place] [address] [place] CO2 [Moles/Vol] 22 mmol/L Normal 22-30 [facility] Comment on above: Order Comment: Speci men Type: BLOOD SPECIMENOrdering Facility: [facility] Address: [address] [place] [address] Performed By: #### 2 4323-8 ####[facility] LABCLIA [id number] [place] [address] [place] Creatinine [Mass/Vol] 0.95 mg/dL Normal 0.73-1.22 [facility] Comment on above: Order Comment: Speci men Type: BLOOD SPECIMENOrdering Facility: [facility] Address: [address] [place] [address] Performed By: #### 2 4323-8 ####[facility] LABCLIA [id number] [place] [address] [place] Creatinine and Glomerular filtration rate.predicted panel (S/P/Bld) 108 mL/min/1.73m??? Normal >=60 [facility] Comment on above: Order Comment: Speci men Type: BLOOD SPECIMENOrdering Facility: [facility] Address: [address] [place] [address] Result Comment: Faye mated Glomerular Filtration Rate (eGFR) is calculated using the 2020 CKD-EPI creatinine equation. This equation utilizes serum creatinine, sex, and age as parameters. The creatinine assay has traceable calibration to isotope dilution-mass spectrometry. Refer to KDIGO guidelines for clinical interpretation. In patients with unstable renal function, e.g. those with acute kidney injury, the eGFR may not accurately reflect actual GFR. Performed By: #### 2 4323-8 ####[facility] LABCLIA [id number] [place] [id number] [place] Glucose [Mass/Vol] 106 mg/dL High 74-99 [facility] Comment on above: Order Comment: Speci taras Type: BLOOD SPECIMENOrdering Facility: [facility] Address: [address] [place] [address] Result Comment: The [place] Diabetes Association (ADA) provides guidance for cutoff values for fasting glucose and random glucose. The ADA defines fasting as no caloric intake for at least 8 hours. Fasting plasma glucose results between 100 to 125 mg/dL indicate increased risk for diabetes (prediabetes).Fasting plasma glucose results greater than or equal to 126 mg/dL meet the criteria for diagnosis of diabetes. In the absence of unequivocal hyperglycemia, results should be confirmed by repeat testing. In a patient with classic symptoms of hyperglycemia or hyperglycemic crisis, random plasma glucose results greater than or equal to 200 mg/dL meet the criteria for diagnosis of diabetes.Reference: Standards of Medical Care in Diabetes 2016, [place] [employer]. Diabetes Care. 2016.39(Suppl 1). Performed By: #### 2 4323-8 ####[facility] LABCLIA [id number] [place] [id number] [place] Potassium [Moles/Vol] 4.5 mmol/L Normal 3.7-5.1 [facility] Comment on above: Order Comment: Speci men Type: BLOOD SPECIMENOrdering Facility: [facility] Address: [address] [place] [address] Performed By: #### 2 4323-8 ####[facility] LABCLIA [id number] [address] [address] [place] Protein [Mass/Vol] 7.8 g/dL Normal 6.3-8.0 [facility] Comment on above: Order Comment: Speci men Type: BLOOD SPECIMENOrdering Facility: [facility] Address: [address] [place] [address] Performed By: #### 2 4323-8 ####[facility] LABCLIA [id number] [place] [id number] [place] Sodium [Moles/Vol] 136 mmol/L Normal 136-144 [facility] Comment on above: Order Comment: Speci men Type: BLOOD SPECIMENOrdering Facility: [facility] Address: [address] [place] [address] Performed By: #### 2 4323-8 ####[facility] LABCLIA [id number] [place] [address] [place] Urea nitrogen [Mass/Vol] 10 mg/dL Normal 9-24 [facility] Comment on above: Order Comment: Speci men Type: BLOOD SPECIMENOrdering Facility: [facility] Address: [address] [place] [address] Performed By: #### 2 4323-8 ####[facility] LABIA [id number] [place] [address] [place] [id number] 06-29-2024 ECG01 Normal [facility] HISTORY PHYSICALon HISTORY PHYSICAL Normal [facility] PT panel Coag (PPP)on 2023 INR Coag (PPP) [Relative time] 1.1 {INR} Normal 0.9-1.3 [facility] Comment on above: Order Comment: Speci men Type: BLOOD SPECIMENOrdering Facility: [facility] Address: [address] [place] [address] Result Comment: Salma min K Antagonist (VKA) Therapeutic Range: INR 2 to 3 (Target INR of 2.5)Note: For patients treated with VKA drugs, such as warfarin, the [place] [employer] 2012 Guideline recommends a therapeutic INR range of 2 to 3 (target INR of 2.5). This recommendation includes high-risk patients with antiphospholipid syndrome with previous arterial or venous thromboembolism, current-generation mechanical or bioprosthetic aortic heart valve replacement.Note: Patients with mechanical aortic valve replacement and additional risk factors for thromboembolic events (atrial fibrillation, previous thromboembolism, LV dysfunction, hypercoagulable conditions) or an older generation mechanical AVR (i.e., ball in-Cage) or any mechanical MVR should have a INR therapeutic range of 2.5 to 3.5 (target INR of 3).Harley GH, et al. Chest 2012, 141:7S-47SNishimura RA, et al. [facility] 2017, 70: 252-289 Performed By: #### 3 4528-0, 25444-6 ####[facility] LABCLIA [id number] [place] [address] [place] PT Coag (PPP) [Time] 11.2 s Normal 9.7-13.0 [facility] Comment on above: Order Comment: Speci men Type: BLOOD SPECIMENOrdering Facility: [facility] Address: [address] [place] [address] Performed By: #### 3 4528-0, 67571-4 ####[facility] LABCLIA [id number] [address] [place] TYPE AND SCREEN,30 DAYon ABO A Normal [facility] Comment on above: Order Comment: Speci men Type: BLOOD SPECIMENOrdering Facility: [facility] Address: [address] [place] [address] Performed By: #### T SCR30 ####[facility] BLOOD BANKCLIA [id number] [place] [address] [place] HISTORICAL AB SCR STATUS Negative Normal [facility] Comment on above: Order Comment: Speci men Type: BLOOD SPECIMENOrdering Facility: [facility] Address: [address] [place] [address] Performed By: #### T SCR30 ####[facility] BLOOD BANKCLIA [id number] [address] [place] Rh Nom (Bld) Positive Normal [facility] Comment on above: Order Comment: Speci men Type: BLOOD SPECIMENOrdering Facility: [facility] Address: [address] [place] [address] Performed By: #### T SCR30 ####[facility] BLOOD BANKCLIA [id number] [address] aPTT PPPon 06-29-2024 aPTT Coag (PPP) [Time] 27.7 s Normal 23.0-32.4 [facility] Comment on above: Order Comment: Speci men Type: BLOOD SPECIMENOrdering Facility: [facility] Address: [address] [place] [address] Result Comment: Froz en Plasma Aliquot Performed By: #### 3 4528-0, 45910-2 ####[facility] LABCLIA [id number] [address] STATES OF [facility] HISTORY PHYSICALon HISTORY PHYSICAL Normal [facility] CNOVon 05-28-2024 CNOV Office Visit (JULIANO) ANGELITA MOMIN ([id number]) [address] [facility] Date Time Provider Department 05/28/24 10:15 AM ADOLFO BALLARD During your visit today, we recorded the following information about you: Sera Cummings MA 05/28/2024 10:08 AM Signed What is the reason for your visit today? Consultation Who is your referring physician? Dr. Rhys Becker MD Are you having poor oral intake? YES Have you had unintentional weight loss of 15 lbs/7 Kg in the last 3-6 months? 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 Jayleen Becker for an opinion regarding hernia. My final recommendations will be communicated back to the requesting physician by way of shared medical record or letter via US mail [facility] - HISTORY AND PHYSICAL Chief Complaint: hernia HPI: Angelita Momin is a 34 year old male with a PMHx significant for Crohn's who presents with upper midline ventral hernias seen on CT scan. He has abdominal discomfort , GERD, and noticed a bulge in the epigastrium. No skin changes. PAST MEDICAL HISTORY Diagnosis Date Bowel disease Cancer (HCC) Chronic obstructive pulmonary disease (COPD) (HCC) Congestive heart failure (HCC) Crohn's 2007 History of transfusion Pneumonia 03/21/2010 SBO (small bowel obstruction) ([facility]) 11/06/2015 - CT : bowl obstruction with transition point at the LLQ -NPO -IVF -pain control -Phenergen for n/v -for flex sig -f/u CORS Spontaneous pneumothorax 03/2008 Syncope 09/06/2012 DD includes Vasovagal syncope related to pain Plan Telemetry Echo Pain control Utox PAST SURGICAL HISTORY Procedure Laterality Date Bowel length per surgical history 02/16/2010 >200 cm small bowel to ileostomy; no colon remaining, no ICV; NIRAJ, +rectum/anus out of continuity CLOSURE ENTEROSTOMY LG/SMALL INTESTINE 08/31/2010 Performed by FRANCO GARCIA at [facility] PAST SURGICAL HISTORY OF 03/2008 2 lung surgeries for pneuothorax in March 2008. (Video-assisted throacopic surgery with stapling of blebs and pleural adhesions with talc insufflation. PAST SURGICAL HISTORY OF 02/16/2010 total abdominal colectomy with ileorectal anastamosis and loop ileostomy; pathology: 57 cm length of colon, attached 7.5 cm terminal ileum, 5.2 cm appendix Social History Tobacco Use Smoking status: Every Day Packs/day: 0.50 Years: 5.00 Additional pack years: 0.00 Total pack years: 2.50 Types: Cigarettes Smokeless tobacco: Never Substance Use Topics Alcohol use: Yes Drug use: No Additional social history not relevant to the patient's HPI No family history on file. Additional family history not relevant to the patient's HPI ALLERGIES Allergen Reactions Amoxicillin Rash Cefuroxime Diarrhea Darvon [Propoxyphen* Rash, Itching facial flushing, blurred vision Iodinated Contrast * Intolerance Pt sneezes several times after CT contrast, no itching. This is not an allergic reaction, just a intolerance.Pt also has other health conditions that may also be leading to these symptoms Morphine Hives Current Outpatient Medications Medication Sig Dispense Refill albuterol HFA (PROAIR HFA) 90 mcg/actuation inhaler 2 Puffs every 6 hours as needed for wheezing/shortness of breath. Take as directed 1 Each 0 buprenorphine-naloxone (SUBOXONE) 8-2 mg film dissolve 1 film under the tongue twice a day buPROPion XL (WELLBUTRIN XL) 300 mg 24 hr tablet 1 tablet in the morning Once a day Orally 30 day(s) amphetamine-dextroamphetami ne XR (ADDERALL XR) 25 mg 24 hr capsule Take by mouth every morning. amphetamine-dextroamphetami ne 15 mg tablet TAKE 1 TABLET BY MOUTH EVERY DAY IN THE EVENING dronabinol (MARINOL) 5 mg capsule TAKE 1 CAPSULE in the evening or bedtime QUEtiapine XR (SEROQUEL XR) 300 mg 24 hr tablet Take 300 mg by mouth daily at bedtime. Pregabalin (LYRICA) 200 mg capsule Take 200 mg by mouth three times daily. ALPRAZolam (XANAX) 1 mg tablet Take 1 tablet by mouth three times daily as needed for Anxiety. (Patient taking differently: Take 1 mg by mouth four times a day as needed for anxiety.) 21 tablet 0 pantoprazole 40 mg tablet Take 1 tablet by mouth twice daily before meals. 30 tablet 0 B Complex-Vitamin C-Folic Acid 0.5 mg Tab Take 1 tablet by mouth once daily. 30 tablet 0 Ferrous Sulfate (IRON) 325 mg (65 mg iron) ORAL tablet Take 1 tablet by mouth twice daily. 200 tablet 5 eszopiclone (LUNESTA) 3 mg ORAL Tab Take 1 tablet by mouth at bedtime as needed. for insomnia. 30 tablet 5 hydrOXYzine HCl (ATARAX) 25 mg tablet 1 tablet Q6 hours as needed for itch Orally up to every 6 hrs as needed for itch for 10 days (Patient not taking: Reported on 09/17/2023) naloxone (more content not included)... Normal [facility] CNOV Normal [facility] A1AT SerPl-mCncon 05-21-2024 Alpha 1 antitrypsin [Mass/Vol] 131 mg/dL Normal 90-200 [facility] Comment on above: Order Comment: Speci men Type: BLOOD SPECIMENOrdering Facility: [facility] Address: [address] [place] [address] Performed By: #### 3 3762-6, 1825-9, 2064-4, 46676-6 ####[facility] LABCLIA [id number] [place] [address] [place] BLOOD TB SCREEN, INCUBATEDon 05-21-2024 M. tuberculosis tuberculin stim IFN-g Ql (Bld) Negative Normal [facility] Comment on above: Order Comment: Speci men Type: BLOOD SPECIMENOrdering Facility: [facility] Address: [address] [place] [address] Performed By: #### I NTPGP ####[facility] LABCLIA [id number] [place] [address] [place] MITOGEN MINUS NIL >9.98 Normal >=0.50 [facility] Comment on above: Order Comment: Speci men Type: BLOOD SPECIMENOrdering Facility: [facility] Address: [address] [place] [address] Performed By: #### I NTPGP ####[facility] LABCLIA [id number] [place] [address] [place] TB GAMMA INTERPRETATION Normal [facility] Comment on above: Order Comment: Speci men Type: BLOOD SPECIMENOrdering Facility: [facility] Address: [address] [place] [address] Performed By: #### I NTPGP ####[facility] LABCLIA [id number] [place] [address] [place] TB NIL 0.02 IU/mL Normal <=8.00 [facility] Comment on above: Order Comment: Speci men Type: BLOOD SPECIMENOrdering Facility: [facility] Address: [address] [place] [address] Performed By: #### I NTPGP ####[facility] LABCLIA [id number] [place] [address] [place] TB1 AG MINUS NIL 0.19 IU/mL Normal <0.35 [facility] Comment on above: Order Comment: Speci men Type: BLOOD SPECIMENOrdering Facility: [facility] Address: [address] [place] [address] Performed By: #### I NTPGP ####[facility] LABCLIA [id number] [place] [address] [place] TB2 AG MINUS NIL 0.15 IU/mL Normal <0.35 [facility] Comment on above: Order Comment: Speci men Type: BLOOD SPECIMENOrdering Facility: [facility] Address: [address] [place] [address] Performed By: #### I NTPGP ####[facility] LABCLIA [id number] [place] [address] [place] CBC panel Auto (Bld)on 05-21 Erythrocyte distribution width (RBC) [Ratio] 15.5 % High 11.5-15.0 [facility] Comment on above: Order Comment: Speci men Type: BLOOD SPECIMENOrdering Facility: [facility] Address: [address] [place] [address] Performed By: #### 5 8410-2 ####[facility] LABCLIA [id number] [place] [address] [place] Hematocrit (Bld) [Volume fraction] 49.8 % Normal 39.0-51.0 [facility] Comment on above: Order Comment: Speci men Type: BLOOD SPECIMENOrdering Facility: [facility] Address: [address] [place] [address] Performed By: #### 5 8410-2 ####[facility] LABIA [id number] [place] [address] [place] Hemoglobin (Bld) [Mass/Vol] 16.2 g/dL Normal 13.0-17.0 [facility] Comment on above: Order Comment: Speci men Type: BLOOD SPECIMENOrdering Facility: [facility] Address: [address] [place] [address] Performed By: #### 5 8410-2 ####[facility] LABIA [id number] [place] [address] [place] MCH (RBC) [Entitic mass] 26.6 pg Normal 26.0-34.0 [facility] Comment on above: Order Comment: Speci men Type: BLOOD SPECIMENOrdering Facility: [facility] Address: [address] [place] [address] Performed By: #### 5 8410-2 ####[facility] [id number] [place] [address] [place] MCHC (RBC) [Mass/Vol] 32.5 g/dL Normal 30.5-36.0 [facility] Comment on above: Order Comment: Speci men Type: BLOOD SPECIMENOrdering Facility: [facility] Address: [address] [place] [address] Performed By: #### 5 8410-2 ####[facility] [id number] [place] [address] [place] MCV (RBC) [Entitic vol] 81.6 fL Normal 80.0-100.0 [facility] Comment on above: Order Comment: Speci men Type: BLOOD SPECIMENOrdering Facility: [facility] Address: [address] [place] [address] Performed By: #### 5 8410-2 ####[facility] [id number] [place] [address] [place] Nucleated RBC (Bld) [#/Vol] 10*3/uL Normal <0.01 [facility] Comment on above: Order Comment: Speci men Type: BLOOD SPECIMENOrdering Facility: [facility] Address: [address] [place] [address] Performed By: #### 5 8410-2 ####[facility] LABCLIA [id number] [place] [address] [place] Platelet mean volume (Bld) [Entitic vol] 11.7 fL Normal 9.0-12.7 [facility] Comment on above: Order Comment: Speci men Type: BLOOD SPECIMENOrdering Facility: [facility] Address: [address] [place] [address] Performed By: #### 5 8410-2 ####[facility] LABCLIA [id number] [place] [address] [place] Platelets (Bld) [#/Vol] 156 10*3/uL Normal 150-400 [facility] Comment on above: Order Comment: Speci men Type: BLOOD SPECIMENOrdering Facility: [facility] Address: [address] [place] [address] Performed By: #### 5 8410-2 ####[facility] LABCLIA [id number] [place] [address] [place] RBC (Bld) [#/Vol] 6.10 10*6/uL High 4.20-6.00 [facility] Comment on above: Order Comment: Speci men Type: BLOOD SPECIMENOrdering Facility: [facility] Address: [address] [place] [address] Performed By: #### 5 8410-2 ####[facility] LABCLIA [id number] [place] [address] [place] WBC (Bld) [#/Vol] 7.19 10*3/uL Normal 3.70-11.00 [facility] Comment on above: Order Comment: Speci men Type: BLOOD SPECIMENOrdering Facility: [facility] Address: [address] [place] [address] Performed By: #### 5 8410-2 ####[facility] LABCLIA [id number] [place] [address] [place] CRP SerPl-mCncon 05-21-2024 CRP [Mass/Vol] 1.3 mg/dL High <0.9 [facility] Comment on above: Order Comment: Speci men Type: BLOOD SPECIMENOrdering Facility: [facility] Address: [address] [place] [address] Performed By: #### 1 988-5, HSTNT ####[facility] LABCLIA [id number] [place] [address] [place] CT ENTEROGRAPHY W IVCONon CT ENTEROGRAPHY W IVCON Normal [facility] CT Small bowel W contrast PO and W contrast Shadi 05-21-2024 IMPRESSION: Persistent but improved mild changes of active inflammatory small bowel Crohn's disease with luminal narrowing involving the neoterminal ileum. Scattered fluid-filled upstream small bowel loops, some which are mildly dilated, similar to prior. Penetrating: Absent Hepatic steatosis. Information Strategist: [facility]na Transcribe Date/Time: May 21 2024 3:22P Dictated by : UCHE ACOSTA MD This examination was interpreted and the report reviewed and electronically signed by: UCHE ACOSTA MD on May 21 2024 4:24PM [facility] DIVISION OF RADIOLOGY * * *Final Report* * * DATE OF EXAM: May 21 2024 2:45PM [facility] 0545 - CT ENTEROGRAPHY W IVCON / PROCEDURE REASON: Crohn's disease of small and large intestines with complication (HCC) * * * * Physician Interpretation * * * * CT ENTEROGRAPHY (ABDOMEN AND PELVIS CT WITH INTRAVENOUS CONTRAST; NEUTRAL ORAL CONTRAST) HISTORY: Crohn's disease of small and large intestines with complication (HCC) TECHNIQUE: Routine single phase CT enterography CONTRAST: IV: 100 ml of Omnipaque 350 Oral: 900 ml of [facility] RADIATION DOSE: Integrated Dose-length product (DLP) for this visit = 1023 mGy*cm. CT Dose Reduction Employed: mAs-kVp adjusted based on patient size-age COMPARISON: CT 10/08/2021 RESULT: GI Tract: Colectomy with ileosigmoid anastomosis. Small bowel: Previously noted mild wall thickening with mild hyperenhancement and luminal narrowing of the neoterminal ileum is less prominent than prior exam. Minimal residual wall thickening and subtle enhancement just proximal to the anastomosis (5:112) noted. Otherwise, no abnormal mural hyperenhancement, wall thickening or luminal narrowing. More proximal scattered fluid-filled small bowel loops, a few which are mildly dilated. Colon: Colectomy. Remaining rectosigmoid colon is unremarkable.. Strictures: None. Fistulae/Sinus tracts: None. Abscess: None. Ancillary findings: None Abdomen: Liver: No mass. Steatosis. Biliary: No biliary dilatation. Cholecystectomy. Spleen: No mass. No splenomegaly. Pancreas: No mass or duct dilation. Adrenals: No mass. Kidneys: No renal lesions or hydronephrosis.. Lymph nodes: No abdominal or pelvic lymphadenopathy. Mesentery/Peritoneum: Vasculature: The celiac axis and SMA are patent. The portal vein and branches, splenic vein, SMV, and hepatic veins are patent. Vasculature: - Abdominal aorta: No aneurysm. - Celiac and SMA: Patent without stenosis. - Portal venous system (SMV, splenic vein, portal vein and branches): Patent. - Hepatic veins: Patent. Pelvis: No mass, ascites or fluid collection. Bones/Soft Tissues: No acute findings. Lung Bases: Unremarkable. Manager Of Community Relations (topogram) images: No additional findings. DIVISION OF RADIOLOGY Provider, [facility] - 05/21/2024 * * *Final Report* * * DATE OF EXAM: May 21 2024 2:45PM [facility] 0545 - CT ENTEROGRAPHY W IVCON / PROCEDURE REASON: Crohn's disease of small and large intestines with complication (HCC) * * * * Physician Interpretation * * * * CT ENTEROGRAPHY (ABDOMEN AND PELVIS CT WITH INTRAVENOUS CONTRAST; NEUTRAL ORAL CONTRAST) HISTORY: Crohn's disease of small and large intestines with complication (HCC) TECHNIQUE: Routine single phase CT enterography CONTRAST: IV: 100 ml of Omnipaque 350 Oral: [address] RADIATION DOSE: Integrated Dose-length product (DLP) for this visit = 1023 mGy*cm. CT Dose Reduction Employed: mAs-kVp adjusted based on patient size-age COMPARISON: CT 10/08/2021 RESULT: GI Tract: Colectomy with ileosigmoid anastomosis. Small bowel: Previously noted mild wall thickening with mild hyperenhancement and luminal narrowing of the neoterminal ileum is less prominent than prior exam. Minimal residual wall thickening and subtle enhancement just proximal to the anastomosis (5:112) noted. Otherwise, no abnormal mural hyperenhancement, wall thickening or luminal narrowing. More proximal scattered fluid-filled small bowel loops, a few which are mildly dilated. Colon: Colectomy. Remaining rectosigmoid colon is unremarkable.. Strictures: None. Fistulae/Sinus tracts: None. Abscess: None. Ancillary findings: None Abdomen: Liver: No mass. Steatosis. Biliary: No biliary dilatation. Cholecystectomy. Spleen: No mass. No splenomegaly. Pancreas: No mass or duct dilation. Adrenals: No mass. Kidneys: No renal lesions or hydronephrosis.. Lymph nodes: No abdominal or pelvic lymphadenopathy. Mesentery/Peritoneum: Vasculature: The celiac axis and SMA are patent. The portal vein and branches, splenic vein, SMV, and hepatic veins are patent. Vasculature: - Abdominal aorta: No aneurysm. - Celiac and SMA: Patent without stenosis. - Portal venous system (SMV, splenic vein, portal vein and branches): Patent. - Hepatic veins: Patent. Pelvis: No mass, ascites or fluid collection. Bones/Soft Tissues: No acute findings. Lung Bases: Unremarkable. Manager Of Community Relations (topogram) images: No additional findings. IMPRESSION IMPRESSION: Persistent but improved mild changes of active inflammatory small bowel Crohn's disease with luminal narrowing involving the neoterminal ileum. Scattered fluid-filled upstream small bowel loops, some which are mildly dilated, similar to prior. Penetrating: Absent Hepatic steatosis. Information Strategist: PSCB Transcribe Date/Time: May 21 2024 3:22P Dictated by : UCHE ACOSTA MD This examination was interpreted and the report reviewed and electronically signed by: UCHE ACOSTA MD on May 21 2024 4:24PM EST [facility] Radiology Study observation (narrative) [facility] CT Small bowel W contrast PO and W contrast IVOrdered By: Ccf Provider on 05-21-2024 [facility] Ceruloplasmin SerPl-mCncon 0 05-21-2024 Ceruloplasmin [Mass/Vol] 20 mg/dL Normal 15-30 [facility] Comment on above: Order Comment: Speci men Type: BLOOD SPECIMENOrdering Facility: [facility] Address: [address] [place] [address] Performed By: #### 3 3762-6, 1824-9, 2064-03, 82736-8 ####[facility] LABCLIA [id number] [facility] [place] [address] [place] Comprehensive metabolic 2000 panelon 05-21-2024 Albumin [Mass/Vol] 4.9 g/dL Normal 3.9-4.9 [facility] Comment on above: Order Comment: Speci men Type: BLOOD SPECIMENOrdering Facility: [facility] Address: [address] [place] [address] Performed By: #### 3 3762-6, 9, 2064-03, 86392-9 ####[facility] LABCLIA [id number] [place] [address] [place] ALP [Catalytic activity/Vol] 119 U/L High 38-113 [facility] Comment on above: Order Comment: Speci men Type: BLOOD SPECIMENOrdering Facility: [facility] Address: [address] [place] [address] Performed By: #### 3 3762-6, 9, 2064-03, 17725-7 ####[facility] LABCLIA [id number] [facility] [place] [address] [place] ALT [Catalytic activity/Vol] 156 U/L High 10-54 [facility] Comment on above: Order Comment: Speci men Type: BLOOD SPECIMENOrdering Facility: [facility] Address: [address] [place] [address] Performed By: #### 3 3762-6, 9, 2064-03, 31501-2 ####[facility] LABCLIA [id number] [place] [address] [place] Anion gap [Moles/Vol] 14 mmol/L Normal 8-15 [facility] Comment on above: Order Comment: Speci men Type: BLOOD SPECIMENOrdering Facility: [facility] Address: [address] [place] [address] Performed By: #### 3 3762-6, 1824-9, 2064-03, 15486-9 ####[facility] LABCLIA [id number] [place] [address] [place] AST [Catalytic activity/Vol] 108 U/L High 14-40 [facility] Comment on above: Order Comment: Speci men Type: BLOOD SPECIMENOrdering Facility: [facility] Address: [address] [place] [address] Performed By: #### 3 3762-6, 9, 2064-03, 12831-5 ####[facility] LABCLIA [id number] [place] [address] [place] Bilirubin [Mass/Vol] 1.3 mg/dL Normal 0.2-1.3 [facility] Comment on above: Order Comment: Speci men Type: BLOOD SPECIMENOrdering Facility: [facility] Address: [address] [place] [address] Performed By: #### 3 3762-6, 9, 2064-03, 89860-8 ####[facility] LABCLIA [id number] [place] [id number] [place] Calcium [Mass/Vol] 10.2 mg/dL Normal 8.5-10.2 [facility] Comment on above: Order Comment: Speci men Type: BLOOD SPECIMENOrdering Facility: [facility] Address: [address] [place] [address] Performed By: #### 3 3762-6, 9, 2064-03, 16555-0 ####[facility] LABCLIA [id number] [place] [address] [place] Chloride [Moles/Vol] 99 mmol/L Normal 98-107 [facility] Comment on above: Order Comment: Speci men Type: BLOOD SPECIMENOrdering Facility: [facility] Address: [address] [place] [address] Performed By: #### 3 3762-6, 1825-9, 4, 02804-1 ####[facility] LABCLIA [id number] [place] [address] [place] CO2 [Moles/Vol] 20 mmol/L Low 22-30 [facility] Comment on above: Order Comment: Speci men Type: BLOOD SPECIMENOrdering Facility: [facility] Address: [address] [place] [address] Performed By: #### 3 3762-6, 5-9, 2064-03, 99123-1 ####[facility] LABCLIA [id number] [place] [address] [place] Creatinine [Mass/Vol] 1.01 mg/dL Normal 0.73-1.22 [facility] Comment on above: Order Comment: Speci men Type: BLOOD SPECIMENOrdering Facility: [facility] Address: [address] [place] [address] Performed By: #### 3 3762-6, 9, 2064-03, 42246-4 ####[facility] LABCLIA [id number] [place] [address] [place] Creatinine and Glomerular filtration rate.predicted panel (S/P/Bld) 101 mL/min/1.73m??? Normal >=60 [facility] Comment on above: Order Comment: Speci men Type: BLOOD SPECIMENOrdering Facility: [facility] Address: [address] [place] [address] Result Comment: Faye mated Glomerular Filtration Rate (eGFR) is calculated using the 2020 CKD-EPI creatinine equation. This equation utilizes serum creatinine, sex, and age as parameters. The creatinine assay has traceable calibration to isotope dilution-mass spectrometry. Refer to KDIGO guidelines for clinical interpretation. In patients with unstable renal function, e.g. those with acute kidney injury, the eGFR may not accurately reflect actual GFR. Performed By: #### 3 3762-6, 1825-08, 2064-03, ####[facility] LABCLIA [id number] [address] [address] [place] Glucose [Mass/Vol] 92 mg/dL Normal 74-99 [facility] Comment on above: Order Comment: Khushbu grajeda Type: BLOOD SPECIMENOrdering Facility: [facility] Address: [address] [place] [address] Result Comment: The [place] Diabetes Association (ADA) provides guidance for cutoff values for fasting glucose and random glucose. The ADA defines fasting as no caloric intake for at least 8 hours. Fasting plasma glucose results between 100 to 125 mg/dL indicate increased risk for diabetes (prediabetes).Fasting plasma glucose results greater than or equal to 126 mg/dL meet the criteria for diagnosis of diabetes. In the absence of unequivocal hyperglycemia, results should be confirmed by repeat testing. In a patient with classic symptoms of hyperglycemia or hyperglycemic crisis, random plasma glucose results greater than or equal to 200 mg/dL meet the criteria for diagnosis of diabetes.Reference: Standards of Medical Care in Diabetes 2016, [place] [employer] Association. Diabetes Care. 2016.39(Suppl 1). Performed By: #### 3 3762-6, 1825-08, 2064-03, ####[facility] LABCLIA [id number] [address] [address] [place] Potassium [Moles/Vol] 4.1 mmol/L Normal 3.7-5.1 [facility] Comment on above: Order Comment: Khushbu grajeda Type: BLOOD SPECIMENOrdering Facility: [facility] Address: [address] [place] [address] Performed By: #### 3 3762-6, 1825-08, 2064-03, ####[facility] LABCLIA [id number] [address] [address] [place] Protein [Mass/Vol] 7.9 g/dL Normal 6.3-8.0 [facility] Comment on above: Order Comment: Speci men Type: BLOOD SPECIMENOrdering Facility: [facility] Address: [address] [place], [place] [address] Performed By: #### 3 3762-6, 1824-9, 2064-03, 62200-5 ####[facility] LABCLIA [id number] [place] [id number] [place] Sodium [Moles/Vol] 133 mmol/L Low 136-144 [facility] Comment on above: Order Comment: Speci men Type: BLOOD SPECIMENOrdering Facility: [facility] Address: [address] [place], [place] [address] Performed By: #### 3 3762-6, 9, 2064-03, 68976-0 ####[facility] LABCLIA [id number] [place] [id number] [place] Urea nitrogen [Mass/Vol] 14 mg/dL Normal 9-24 [facility] Comment on above: Order Comment: Speci men Type: BLOOD SPECIMENOrdering Facility: [facility] Address: [address] [place], [place] [address] Performed By: #### 3 3762-6, 9, 2064-03, 64964-1 ####[facility] LABCLIA [id number] [address] [address] [place] D dimer FEU PPP-mCncon 05-21 Fibrin D-dimer FEU (PPP) [Mass/Vol] 250 ng/mL FEU Normal <500 [facility] Comment on above: Order Comment: Speci men Type: BLOOD SPECIMENOrdering Facility: [facility] Address: [address] [place] [address] Performed By: #### 4 8065-7, 64506-8 ####[facility] LABCLIA [id number] [address] [place] HBV DNA Qn (S)on 05-21-2024 HBV DNA GERMÁN+probe Qn 629 IU/ml Normal [facility] Comment on above: Order Comment: Speci men Type: BLOOD SPECIMENOrdering Facility: [facility] Address: [address] [place] [address] Result Comment: HBV DNA Detected by PCR.2.80 Performed By: #### 1 1258-1 ####[facility] LABIA [id number] [place] [address] [place] HBV core Ab Ser Qlon 024 HBV core Ab Ql (S) Positive Abnormal Negative [facility] Comment on above: Order Comment: Speci men Type: BLOOD SPECIMENOrdering Facility: [facility] Address: [address] [place] [address] Result Comment: The result suggests either current or past infection with Hepatitis B virus. Non-specific reactivity may at times be seen with this test due to some underlying phenomena. Please correlate with HBsAg result and medical history. Performed By: #### 1 6933-4, 5195-3, 38421-8, 34574-4 ####[facility] LABCLIA [id number] [address] [facility] HBV surface Ab Ql (S)on 05-02 HBV surface Ab Qn (S) <8.00 Normal [facility] Comment on above: Order Comment: Speci men Type: BLOOD SPECIMENOrdering Facility: [facility] Address: [address] [place] [address] Result Comment: <8 m IU/mL: No serological evidence of immunity to Hepatitis B Virus.>/= 8 to <12 mIU/mL: No serological evidence of immunity to Hepatitis B Virus.>/= 12 mIU/mL: Consistent with serological evidence of immunity to Hepatitis B Virus. Performed By: #### 1 6933-4, 5195-3, 81292-7, 20725-7 ####[facility] LABCLIA [id number] [place] [address] [place] HBV surface Ab Ser Qlon 05-02 HBV surface Ab Ql (S) Negative Normal [facility] Comment on above: Order Comment: Speci men Type: BLOOD SPECIMENOrdering Facility: [facility] Address: [address] [place] [address] Result Comment: No s erological evidence of immunity to Hepatitis B Virus. Performed By: #### 1 6933-4, 5195-3, 15306-5, 58844-3 ####[facility] LABCLIA [id number] [place] [address] [place] HBV surface Ag Ser Qlon 05-02 HBV surface Ag Ql (S) Initially Reactive Abnormal Negative [facility] Comment on above: Order Comment: Speci men Type: BLOOD SPECIMENOrdering Facility: [facility] Address: [address] [place] [address] Result Comment: Plea se see HBsAg confirmatory assay result.Confirmatory testing for hepatitis B surface antigen has been ordered and charged. Performed By: #### 1 6933-4, 5195-3, 05476-0, 47091-7 ####[facility] LABCLIA [id number] [place] [address] [place] HBV surface Ag Ql (S) Positive Abnormal Negative, Test not Indicated [facility] Comment on above: Order Comment: Speci [facility] Type: BLOOD SPECIMENOrdering Facility: [facility] Address: [address] [place] [address] Result Comment: The result is consistent with active Hepatitis B Virus Infection. HBsAg, however, may test positive up to few weeks after administration of Hepatitis B vaccine. Clinical correlation is required. Performed By: #### 1 6933-4, 5195-3, 26662-5, 95771-6 ####[facility] LABCLIA [id number] [place] [address] [place] HCV Ab Ser Qlon 05-21-2024 HCV Ab Ql (S) Positive Abnormal Negative [facility] Comment on above: Order Comment: Speci men Type: BLOOD SPECIMENOrdering Facility: [facility] Address: [address] [place] [address] Performed By: #### 1 6128-1, 01318-6 ####[facility] LABCLIA [id number] [place] [address] [place] HCV RNA SerPl GERMÁN+probe-aCnc on 05-21-2024 HCV RNA GERMÁN+probe Qn Not detected Normal HCV RNA not detected by PCR. [facility] Comment on above: Order Comment: Speci men Type: BLOOD SPECIMENOrdering Facility: [facility] Address: [address] [place] [address] Performed By: #### 1 6128-1, 87310-3 ####[facility] LABCLIA [id number] [address] [place] HEP BE ANTIBODYon 05-21-2024 HBV e Ab IA Ql Negative Normal Negative [facility] Comment on above: Order Comment: Speci men Type: BLOOD SPECIMENOrdering Facility: [facility] Address: [address] [place] [address] Result Comment: This test should only be used in patients with a previously known and/or concurrent positive HBsAG result. Along with HBeAG test, Hepatitis B e antibody test is used for monitoring the natural history of Hepatitis B virus infection and prognostication. Clinical correlation is required. Performed By: #### H BEAG AHBE ####[facility] LABCLIA [id number] [place] [address] [place] HEP BE ANTIGENon 05-21-2024 HBV e Ag IA Ql Positive Abnormal Negative [facility] Comment on above: Order Comment: Speci men Type: BLOOD SPECIMENOrdering Facility: [facility] Address: [address] [place] [address] Performed By: #### H BEAG AHBE ####[facility] LABCLIA [id number] [place] [address] [place] HIGH SENSITIVITY TROPONIN To n 05-21-2024 Troponin T.cardiac High sensitivity method [Mass/Vol] 8 ng/L Normal <12 [facility] Comment on above: Order Comment: Speci men Type: BLOOD SPECIMENOrdering Facility: [facility] Address: [address] [place] [address] Result Comment: When assessing risk for acute coronary syndromes: In patients undergoing blood draw greater than or equal to 2 hours from symptom onset, with history of very low to moderate risk and non-ischemic ECG, an initial hs-Troponin T less than 12 ng/L AND a 1 hour delta hs-Troponin T less than 3 ng/L should be considered very low risk for 30 day MACE. Performed By: #### 1 988-5, HSTNT ####[facility] LABCLIA [id number] [place] [address] [place] HIV 1+2 Ab IA Qlon HIV 1 and 2 Ab IA.rapid Nom (S/P/Bld) Normal [facility] Comment on above: Order Comment: Speci men Type: BLOOD SPECIMENOrdering Facility: [facility] Address: [address] [place] [address] Result Comment: Test not indicated. Performed By: #### 1 6933-4, 5195-3, 96627-9, 60200-6 ####[facility] LABCLIA [id number] [place] [address] [place] HIV 1+2 Ab+HIV1 p24 Ag IA Ql Non-Reactive Normal Nonreactive [facility] Comment on above: Order Comment: Speci men Type: BLOOD SPECIMENOrdering Facility: [facility] Address: [address] [place] [address] Performed By: #### 1 6933-4, 5195-3, 68290-2, 46915-2 ####[facility] LABCLIA [id number] [place] [address] [place] HIV immunoassay testing algorithm interpretation (S/P/Bld) [Interp] Normal [facility] Comment on above: Order Comment: Speci men Type: BLOOD SPECIMENOrdering Facility: [facility] Address: [address] [place] [address] Result Comment: No e vidence of HIV-1 or HIV-2 infection. Should recent infection be suspected, repeat testing may be considered 2-3 weeks after this draw.[place] Rev. Code 3701.243(E): This information has been disclosed to you from confidential records protected from disclosure by state law. ???You shall make no further disclosure of this information without the specific, written, and informed release of the individual to whom it pertains or as otherwise permitted by state law. A general authorization for the release of medical or other information is not sufficient for the purpose of the release of HIV test results or diagnoses. Performed By: #### 1 6933-4, 5195-3, 06125-9, 87273-3 ####[facility] LABCLIA [id number] [place] [address] [place] LKM ABon 05-21-2024 LIVER-KIDNEY MICROSOMAL ABS <1:20 Normal <1:20 [facility] Comment on above: Order Comment: Speci men Type: BLOOD SPECIMENOrdering Facility: [facility] Address: [address] [place] [address] Result Comment: INTE RPRETIVE INFORMATION: Endgc-Ljzqrt-Hgcmjhsbc Abs, IgGLiver-Kidney Microsome IgG antibody (anti-LKM), as detected byindirect immunofluorescent antibody (IFA) techniques, may beobserved in patients with autoimmune hepatitis type 2 (AIH-2),AIH-2 associated with bxxvccdlkdncselcxloyfgzyigej-ffopmhqvwvf-sjnczbppzp dystrophy (APECED),viral hepatitis C or D, and some forms of drug-induced hepatitis.This IFA does not differentiate among the four types of LKMantibodies (LKM-1, LKM-2, LKM-3, and a fourth type that defuevnxlbIZU6L9 and CY antigens). Of these, anti-LKM-1 (dyolbpylegR737PXB7) IgG antibodies are considered specific for AIH-2.This test was developed and its performance characteristicsdetermined by [employer]. It has not been cleared orapproved by the [place] Food and Drug Administration. This test wasperformed in a CLIA certified laboratory and is intended forclinical purposes.Performed By: [address] [address] Director: Bob Heredia MD, PhDCLIA Number: [id number] Performed By: #### L KM ####[facility] [id number] [place] [address] Mitochondria Ab IF Ql (S)on 05-21-2024 Mitochondria M2 Ab IA Qn (S) 16.3 Units Normal <=20.0 [facility] Comment on above: Order Comment: Speci men Type: BLOOD SPECIMENOrdering Facility: [facility] Address: [address] [place] [address] Performed By: #### 1 4252-1, 68851-2 ####[facility] LABIA [id number] [place] [address] [place] Mitochondria M2 Ab Ql (S) Negative Normal Negative [facility] Comment on above: Order Comment: Speci taras Type: BLOOD SPECIMENOrdering Facility: [facility] Address: [address] [place] [address] Result Comment: Anti -mitochondrial antibody test is used as an aid in diagnosis of primary biliary cholangitis. Clinical correlation is required. Performed By: #### 1 4252-1, 24397-6 ####[facility] LABIA [id number] [place] [address] [place] NT[facility]BNP [facility] Natriuretic peptide.B prohormone N-Terminal [Mass/Vol] <36 Normal <125 [facility] Comment on above: Order Comment: Speci men Type: BLOOD SPECIMENOrdering Facility: [facility] Address: [address] [place] [address] Performed By: #### 3 3762-6, 1825-9, 2064-4, 11685-9 ####[facility] LABCLIA [id number] [place] [address] [place] Nuclear Ab IA Ql (S)on 05-21 MONA SCR QUAL Negative Normal Negative [facility] Comment on above: Order Comment: Khushbu grajeda Type: BLOOD SPECIMENOrdering Facility: [facility] Address: [address] [place] [address] Result Comment: The qualitative antinuclear antibody screen test performed using the following antigens: dsDNA, Chromatin, Ribosomal P, SS-A 60, SS-A 52, SS-B, Sm, SmRNP, INPATIENT NURSING AIDE A, INPATIENT NURSING AIDE 68, Scl-70, Dara-1, and Centromere B. Methodology: Multiplex flow immunoassay. Performed By: #### 4 7383-5 ####[facility] LABCLIA [id number] [address] [place] PT panel Coag (PPP)on 2023 INR Coag (PPP) [Relative time] 1.1 {INR} Normal 0.9-1.3 [facility] Comment on above: Order Comment: Specmonty grajeda Type: BLOOD SPECIMENOrdering Facility: [facility] Address: [address] [place] [address] Result Comment: Salma min K Antagonist (VKA) Therapeutic Range: INR 2 to 3 (Target INR of 2.5)Note: For patients treated with VKA drugs, such as warfarin, the [place] [employer] 2012 Guideline recommends a therapeutic INR range of 2 to 3 (target INR of 2.5). This recommendation includes high-risk patients with antiphospholipid syndrome with previous arterial or venous thromboembolism, current-generation mechanical or bioprosthetic aortic heart valve replacement.Note: Patients with mechanical aortic valve replacement and additional risk factors for thromboembolic events (atrial fibrillation, previous thromboembolism, LV dysfunction, hypercoagulable conditions) or an older generation mechanical AVR (i.e., ball in-Cage) or any mechanical MVR should have a INR therapeutic range of 2.5 to 3.5 (target INR of 3).Harley WILCOX, et al. Chest 2012, 141:7S-47SAdriana RA, et al. JACC 2017, 70: 252-289 Performed By: #### 4 8065-7, 77324-5 ####[facility] LABIA [id number] [place] [address] [place] PT Coag (PPP) [Time] 11.5 s Normal 9.7-13.0 [facility] Comment on above: Order Comment: Speci men Type: BLOOD SPECIMENOrdering Facility: [facility] Address: [address] [place] [address] Performed By: #### 4 8065-7, 53985-0 ####[facility] [id number] [place] [address] [place] Smooth muscle Ab Ql (S)on ACTIN SMOOTH MUSCLE IGG QUALITATIVE Negative Normal Negative [facility] Comment on above: Order Comment: Speci men Type: BLOOD SPECIMENOrdering Facility: [facility] Address: [address] [place] [address] Performed By: #### 1 4252-1, 23904-7 ####[facility] [id number] [place] [address] [place] ACTIN SMOOTH MUSCLE IGG QUANTITATIVE 7 Units Normal <20 [facility] Comment on above: Order Comment: Speci men Type: BLOOD SPECIMENOrdering Facility: [facility] Address: [address] [place] [address] Performed By: #### 1 4252-1, 59087-8 ####[facility] [id number] [place] [address] [place] CNOVon 05-14-2024 CNOV Normal [facility] CNPNon 05-10-2024 CNPN Normal [facility] MONA SCREEN, IFA, W/REFL TITE R AND PATTERNon 04-09-2024 MONA SCREEN, IFA Positive Abnormal NEGATIVE [facility] Comment on above: Result Comment: MONA IFA is a first line screen for detecting the presence of up to approximately 150 autoantibodies in various autoimmune diseases. A positive MONA IFA result is suggestive of autoimmune disease and reflexes to titer and pattern. Further laboratory testing may be considered if clinically indicated. For additional information, please refer to http://education.Scopis.Onaro/faq/BJD678 (This link is being provided for informational/ educational purposes only.) Performed By: #### 8 99, 26311, 482, %96915, 7600, 496, 46257, 5616, %22455, 866, 6399 #### [facility] [address], [address] [place] [address] Ladies Locker Room Attendant: Jeremías Martinez MD ANTINUCLEAR ANTIBODIES TITER AND PATTERNon 04-09-2024 MONA PATTERN Cytoplasmic Abnormal [facility] Comment on above: Result Comment: The presence of cytoplasmic fluorescence was noted on the HEp-2 slide. Other reactivities (e.g., anti- mitochondrial antibodies or anti-smooth muscle antibodies) may be responsible for this fluorescence. The clinical significance of this finding is uncertain. Clinical correlation is recommended. AC-15 to AC-23: Cytoplasmic International Consensus on MONA Patterns (https://doi.org/10.1515/qeyq-2402-6556) Performed By: #### 8 99, 68948, 482, %56681, 7600, 496, 33650, 5616, %24384, 866, 6399 #### [facility] [address], [address] [place] [address] Ladies Locker Room Attendant: Jeremías Martinez MD MONA TITER 1:80 High [facility] Comment on above: Result Comment: A lo w level MONA titer may be present in pre-clinical autoimmune diseases and normal individuals. Reference Range <1:40 Negative 1:40-1:80 Low Antibody Level >1:80 Elevated Antibody Level Performed By: #### 8 99, 83992, 482, %85856, 7600, 496, 87931, 5616, %50085, 866, 6399 #### [facility] [address], [address] [place] [address] Ladies Locker Room Attendant: Jeremías Martinez MD CBC (INCLUDES DIFF/PLT)on Basophils (Bld) [#/Vol] 0.082 10*3/uL Normal 0-200 [facility] Comment on above: Performed By: #### 8 99, 94127, 482, %69192, 7600, 496, 54719, 5616, %94162, 866, 6399 #### [facility] of [place] [address] Ladies Locker Room Attendant: Jeremías Martinez MD Basophils/100 WBC (Bld) 1.2 % Normal [facility] Comment on above: Performed By: #### 8 99, 89668, 482, %21305, 7600, 496, 09988, 5616, %41620, 866, 6399 #### [facility] of [place] [address] Ladies Locker Room Attendant: Jeremías Martinez MD Eosinophils (Bld) [#/Vol] 0.442 10*3/uL Normal 15-500 [facility] Comment on above: Performed By: #### 8 99, 75117, 482, %74881, 7600, 496, 49487, 5616, %51004, 866, 6399 #### [facility] of [place] [address] Ladies Locker Room Attendant: Jeremías Martinez MD Eosinophils/100 WBC (Bld) 6.5 % Normal [facility] Comment on above: Performed By: #### 8 99, 20488, 482, %18616, 7600, 496, 33587, 5616, %65368, 866, 6399 #### [facility] of [place] [address] Ladies Locker Room Attendant: Jeremías Martinez MD Erythrocyte distribution width (RBC) [Ratio] 17.2 % High 11.0-15.0 [facility] Comment on above: Performed By: #### 8 99, 39361, 482, %09625, 7600, 496, 30141, 5616, %87325, 866, 6399 #### [facility] of [place] [address] Ladies Locker Room Attendant: Jeremías Martinez MD Hematocrit (Bld) [Volume fraction] 51.3 % High 38.5-50.0 [facility] Comment on above: Performed By: #### 8 99, 33754, 482, %87996, 7600, 496, 40031, 5616, %09737, 866, 6399 #### [facility] of [place] [address] Ladies Locker Room Attendant: Jeremías Martinez MD Hemoglobin (Bld) [Mass/Vol] 17.1 g/dL Normal 13.2-17.1 [facility] Comment on above: Performed By: #### 8 99, 17404, 482, %03552, 7600, 496, 67719, 5616, %68385, 866, 6399 #### [facility] of [place] [address] Ladies Locker Room Attendant: Jeremías Martinez MD Lymphocytes (Bld) [#/Vol] 1.346 10*3/uL Normal 850-3900 [facility] Comment on above: Performed By: #### 8 99, 25105, 482, %88716, 7600, 496, 28478, 5616, %71261, 866, 6399 #### [facility] [place] [address] Ladies Locker Room Attendant: Jeremías Martinez MD Lymphocytes/100 WBC (Bld) 19.8 % Normal [facility] Comment on above: Performed By: #### 8 99, 48691, 482, %98771, 7600, 496, 29734, 5616, %18754, 866, 6399 #### [facility] of [place] [address] Ladies Locker Room Attendant: Jeremías Martinez MD MCH (RBC) [Entitic mass] 26.9 pg Low 27.0-33.0 [facility] Comment on above: Performed By: #### 8 99, 27981, 482, %43906, 7600, 496, 53234, 5616, %30082, 866, 6399 #### [facility] of [place] [address] Ladies Locker Room Attendant: Jeremías Martinez MD MCHC (RBC) [Mass/Vol] 33.3 g/dL Normal 32.0-36.0 [facility] Comment on above: Performed By: #### 8 99, 76938, 482, %67482, 7600, 496, 38278, 5616, %05902, 866, 6399 #### [facility] [place] [address] Ladies Locker Room Attendant: Jeremías Martinez MD MCV (RBC) [Entitic vol] 80.7 fL Normal 80.0-100.0 [facility] Comment on above: Performed By: #### 8 99, 88784, 482, %30560, 7600, 496, 14331, 5616, %69092, 866, 6399 #### [facility] [place] [address] Ladies Locker Room Attendant: Jeremías Martinez MD Monocytes (Bld) [#/Vol] 0.428 10*3/uL Normal 200-950 [facility] Comment on above: Performed By: #### 8 99, 58677, 482, %63407, 7600, 496, 37320, 5616, %50429, 866, 6399 #### [facility] [place] [address] Ladies Locker Room Attendant: Jeremías Martinez MD Monocytes/100 WBC (Bld) 6.3 % Normal [facility] Comment on above: Performed By: #### 8 99, 20092, 482, %14478, 7600, 496, 48478, 5616, %71431, 866, 6399 #### [facility] [place] [address] Ladies Locker Room Attendant: Jeremías Martinez MD Neutrophils (Bld) [#/Vol] 4.502 10*3/uL Normal 7413-8355 [facility] Comment on above: Performed By: #### 8 99, 40385, 482, %06623, 7600, 496, 51042, 5616, %38217, 866, 6399 #### [facility] of [place] [address] Ladies Locker Room Attendant: Jeremías Martinez MD Neutrophils/100 WBC (Bld) 66.2 % Normal [facility] Comment on above: Performed By: #### 8 99, 82302, 482, %02199, 7600, 496, 69996, 5616, %98919, 866, 6399 #### [facility] [place] [address] Ladies Locker Room Attendant: Jeremías Martinez MD Platelet mean volume (Bld) [Entitic vol] 11.4 fL Normal 7.5-12.5 [facility] Comment on above: Performed By: #### 8 99, 32989, 482, %26395, 7600, 496, 26877, 5616, %17668, 866, 6399 #### [facility] [place] [address] Ladies Locker Room Attendant: Jeremías Martinez MD Platelets (Bld) [#/Vol] 152 10*3/uL Normal 140-400 [facility] Comment on above: Performed By: #### 8 99, 30238, 482, %38583, 7600, 496, 97456, 5616, %11316, 866, 6399 #### [facility] [place] [address] Ladies Locker Room Attendant: Jeremías Martinez MD RBC (Bld) [#/Vol] 6.36 10*6/uL High 4.20-5.80 [facility] Comment on above: Performed By: #### 8 99, 98850, 482, %85521, 7600, 496, 51442, 5616, %19031, 866, 6399 #### [facility] [place] [address] Ladies Locker Room Attendant: Jeremías Martinez MD WBC (Bld) [#/Vol] 6.8 10*3/uL Normal 3.8-10.8 [facility] Comment on above: Performed By: #### 8 99, 13170, 482, %27630, 7600, 496, 78524, 5616, %31641, 866, 6399 #### [facility] of [place] [address] Ladies Locker Room Attendant: Jeremías Martinez MD [facility] METABOLIC PANE [facility] 04-09-2024 Albumin [Mass/Vol] 5.2 g/dL High 3.6-5.1 [facility] Comment on above: Performed By: #### 8 99, 93777, 482, %95591, 7600, 496, 03549, 5616, %89968, 866, 6399 #### [facility] of [place] [address] Ladies Locker Room Attendant: Jeremías Martinez MD Albumin/Globulin [Mass ratio] 1.9 {ratio} Normal 1.0-2.5 [facility] Comment on above: Performed By: #### 8 99, 89978, 482, %26509, 7600, 496, 23202, 5616, %80934, 866, 6399 #### [facility] [place] [address] Ladies Locker Room Attendant: Jeremías Martinez MD ALP [Catalytic activity/Vol] 115 U/L Normal 36-130 [facility] Comment on above: Performed By: #### 8 99, 17512, 482, %24684, 7600, 496, 44668, 5616, %19273, 866, 6399 #### [facility] [place] [address] Ladies Locker Room Attendant: Jeremías Martinez MD ALT [Catalytic activity/Vol] 204 U/L High 9-46 [facility] Comment on above: Performed By: #### 8 99, 31213, 482, %60841, 7600, 496, 10952, 5616, %05671, 866, 6399 #### [facility] of [place] [address] Ladies Locker Room Attendant: Jeremías Martinez MD AST [Catalytic activity/Vol] 161 U/L High 10-40 [facility] Comment on above: Performed By: #### 8 99, 15763, 482, %67604, 7600, 496, 52801, 5616, %70568, 866, 6399 #### [facility] of [address], [address] [place] [address] Ladies Locker Room Attendant: Jeremías Martinez MD Bilirubin [Mass/Vol] 1.2 mg/dL Normal 0.2-1.2 [facility] Comment on above: Performed By: #### 8 99, 34197, 482, %18513, 7600, 496, 59760, 5616, %67993, 866, 6399 #### [facility] [place] [address] Ladies Locker Room Attendant: Jeremías Martinez MD BUN/CREATININE RATIO SEE NOTE: Normal 6-22 [facility] Comment on above: Result Comment: Not Reported: BUN and Creatinine are within reference range. Performed By: #### 8 99, 25629, 482, %62301, 7600, 496, 67977, 5616, %60043, 866, 6399 #### [facility] [place] [address] Ladies Locker Room Attendant: Jeremías Martinez MD Calcium [Mass/Vol] 10.2 mg/dL Normal 8.6-10.3 [facility] Comment on above: Performed By: #### 8 99, 40095, 482, %14097, 7600, 496, 21407, 5616, %24405, 866, 6399 #### [facility] [address], [address] [place] [address] Ladies Locker Room Attendant: Jeremías Martinez MD Chloride [Moles/Vol] 103 mmol/L Normal 98-110 [facility] Comment on above: Performed By: #### 8 99, 34316, 482, %86642, 7600, 496, 38360, 5616, %26663, 866, 6399 #### [facility] [address], [address] [place] [address] Ladies Locker Room Attendant: Jeremías Martinez MD CO2 [Moles/Vol] 21 mmol/L Normal 20-32 [facility] Comment on above: Performed By: #### 8 99, 32531, 482, %40183, 7600, 496, 99941, 5616, %35124, 866, 6399 #### [facility] [place] [address] Ladies Locker Room Attendant: Jeremías Martinez MD Creatinine [Mass/Vol] 0.89 mg/dL Normal 0.60-1.26 [facility] Comment on above: Performed By: #### 8 99, 26670, 482, %53822, 7600, 496, 77658, 5616, %50404, 866, 6399 #### [facility] [place] [address] Ladies Locker Room Attendant: Jeremías Martinez MD GFR/1.73 sq M.predicted among non-blacks MDRD (S/P/Bld) [Vol rate/Area] 117 mL/min/{1.73_m2} Normal > OR = 60 [facility] Comment on above: Performed By: #### 8 99, 12599, 482, %63264, 7600, 496, 37141, 5616, %70780, 866, 6399 #### [facility] [place] [address] Ladies Locker Room Attendant: Jeremías Martinez MD Globulin (S) [Mass/Vol] 2.8 g/dL Normal 1.9-3.7 [facility] Comment on above: Performed By: #### 8 99, 71570, 482, %23324, 7600, 496, 01424, 5616, %35570, 866, 6399 #### [facility] [place] [address] Ladies Locker Room Attendant: Jeremías Martinez MD Glucose [Mass/Vol] 108 mg/dL High 65-99 [facility] Comment on above: Result Comment: Fasting reference interval For someone without known diabetes, a glucose value between 100 and 125 mg/dL is consistent with prediabetes and should be confirmed with a follow-up test. Performed By: #### 8 99, 81920, 482, %40542, 7600, 496, 91866, 5616, %89060, 866, 6399 #### [facility] [place] [address] Ladies Locker Room Attendant: Jeremías Martinez MD Potassium [Moles/Vol] 4.3 mmol/L Normal 3.5-5.3 [facility] Comment on above: Performed By: #### 8 99, 31312, 482, %13045, 7600, 496, 61971, 5616, %98479, 866, 6399 #### [facility] [place] [address] Ladies Locker Room Attendant: Jeremías Martinez MD Protein [Mass/Vol] 8.0 g/dL Normal 6.1-8.1 [facility] Comment on above: Performed By: #### 8 99, 27325, 482, %78486, 7600, 496, 13914, 5616, %86886, 866, 6399 #### [facility] [place] [address] Ladies Locker Room Attendant: Jeremías Martinez MD Sodium [Moles/Vol] 136 mmol/L Normal 135-146 [facility] Comment on above: Performed By: #### 8 99, 09634, 482, %52856, 7600, 496, 46852, 5616, %40426, 866, 6399 #### [facility] [place] [address] Ladies Locker Room Attendant: Jeremías Martinez MD Urea nitrogen [Mass/Vol] 10 mg/dL Normal 7-25 [facility] Comment on above: Performed By: #### 8 99, 40696, 482, %01510, 7600, 496, 36304, 5616, %33663, 866, 6399 #### [facility] [place] [address] Ladies Locker Room Attendant: Jeremías Martinez MD CORTISOL, TOTALon 04-09-2024 CORTISOL, TOTAL 12.9 mcg/dL Normal [facility] Comment on above: Result Comment: Refe rence Range: For 8 a.m.(7-9 a.m.) Specimen: 4.0-22.0 Reference Range: For 4 p.m.(3-5 p.m.) Specimen: 3.0-17.0 * Please interpret above results accordingly * Performed By: #### 8 99, 59306, 482, %47829, 7600, 496, 17790, 5616, %98786, 866, 6399 #### [facility] [address], [address] [place] [address] Ladies Locker Room Attendant: Jeremías Martinez MD GGTon 04-09-2024 Gamma glutamyl transferase [Catalytic activity/Vol] 199 U/L High 3-90 [facility] Comment on above: Performed By: #### 8 99, 58216, 482, %41553, 7600, 496, 33315, 5616, %92529, 866, 6399 #### [facility] [address] [place] [address], [address] [place] [address] Ladies Locker Room Attendant: Jeremías Martinez MD HCV RNA, QUANTITATIVE REAL T ROBBY PCRon 04-09-2024 COMMENT Normal [facility] Comment on above: Result Comment: This test was performed using Real-Time Polymerase Chain Reaction. Reportable Range: 15 IU/mL to 100,000,000 IU/mL (1.18 Log IU/mL to 8.00 Log IU/mL). The analytical performance characteristics of this assay have been determined by [facility]. The modifications have not been cleared or approved by the FDA. This assay has been validated pursuant to the CLIA regulations and is used for clinical purposes. For more information on this test, go to: http://education.2degreesmobile/faq/PYR63c0 (This link is being provided for informational/ educational purposes only.) This assay is intended for use as an aid in the diagnosis of HCV infection and the management of HCV infected patients undergoing anti-viral therapy. Performed By: #### 8 99, 13337, 482, %22449, 7600, 496, 95352, 5616, %25363, 866, 6399 #### [facility] [address] [place] [address] Rd, [address] [place] [address] Ladies Locker Room Attendant: Jeremías Martinez MD HCV RNA, QUANTITATIVE REAL TIME PCR Not detected Normal NOT DETECTED [facility] Comment on above: Performed By: #### 8 99, 04494, 482, %83931, 7600, 496, 56316, 5616, %20160, 866, 6399 #### [facility] [address], [address] [place] [address] Ladies Locker Room Attendant: Jeremías Martinez MD Result Comment: HCV RNA is not detected. There is no laboratory evidence of a current active HCV infection. This pattern of results (undetectable HCV RNA combined with reactive HCV antibody) could be consistent with a resolved past infection if the clinical history is compatible with previous HCV exposure. However, if no previous exposure is suspected, the reactive HCV antibody could be a biological false positive result. HEMOGLOBIN A1con 04-09-2024 HEMOGLOBIN A1c 5.5 % of total Hgb Normal <5.7 [facility] Comment on above: Result Comment: For the purpose of screening for the presence of diabetes: <5.7% Consistent with the absence of diabetes 5.7-6.4% Consistent with increased risk for diabetes (prediabetes) > or =6.5% Consistent with diabetes This assay result is consistent with a decreased risk of diabetes. Currently, no consensus exists regarding use of hemoglobin A1c for diagnosis of diabetes in children. According to [place] Diabetes Association (ADA) guidelines, hemoglobin A1c <7.0% represents optimal control in non- diabetic patients. Different metrics may apply to specific patient populations. Standards of Medical Care in Diabetes(ADA). This test was performed on the Susannah antione c503 platform. Effective 11/17/23, a change in test platforms from the [employer] to the [employer] antione c503 may have shifted HbA1c results compared to historical results. Based on laboratory validation testing conducted at [facility], the Susannah platform relative to the [employer] platform had an average increase in HbA1c value of < or = 0.3%. This difference is within accepted variability established by the National Glycohemoglobin Standardization Program. Note that not all individuals will have had a shift in their results and direct comparisons between historical and current results for testing conducted on different platforms is not recommended. Performed By: #### 8 99, 63479, 482, %47600, 7600, 496, 27371, 5616, %97831, 866, 6399 #### [facility] [address], [address] [place] [address] Ladies Locker Room Attendant: Jeremías Martinez MD HEPATITIS PANEL, ACUTE W/REF LEILANI TO CONFIRMATIONon 04-09-2024 HEPATITIS A IGM Non-Reactive Normal NON-REACTIVE [facility] Comment on above: Result Comment: For additional information, please refer to http://ThermoEnergy.Qlibri.Onaro/faq/CJP074 (This link is being provided for informational/ educational purposes only.) Performed By: #### 8 99, 29518, 482, %87836, 7600, 496, 28273, 5616, %13993, 866, 6399 #### [facility] [address], [address] [place] [address] Ladies Locker Room Attendant: Jeremías Martinez MD HEPATITIS B CORE ANTIBODY (IGM) Non-Reactive Normal NON-REACTIVE [facility] Comment on above: Result Comment: For additional information, please refer to http://ThermoEnergy.2degreesmobile/faq/WSV570 (This link is being provided for informational/ educational purposes only.) Performed By: #### 8 99, 11702, 482, %50755, 7600, 496, 67586, 5616, %03789, 866, 6399 #### [facility] [address], [address] [place] [address] Ladies Locker Room Attendant: Jeremías Martinez MD HEPATITIS B SURFACE ANTIGEN Reactive Abnormal NON-REACTIVE [facility] Comment on above: Result Comment: For additional information, please refer to http://ThermoEnergy.Qlibri.Onaro/faq/LOC389 (This link is being provided for informational/ educational purposes only.) Performed By: #### 8 99, 32468, 482, %63738, 7600, 496, 68626, 5616, %97685, 866, 6399 #### [facility] [address], [address] [place] [address] Ladies Locker Room Attendant: Jeremías Martinez MD HEPATITIS C ANTIBODY Reactive Abnormal NON-REACTIVE [facility] Comment on above: Result Comment: Based on this result, the sample will be tested for HCV RNA by a Nucleic Acid Amplification Test (NAAT) to determine if the patient has a current active infection. Performed By: #### 8 99, 24033, 482, %40795, 7600, 496, 53647, 5616, %48596, 866, 6399 #### [facility] [address], [address] [place], [place] [address] Ladies Locker Room Attendant: Jeremías Martinez MD IRON, TIBC AND FERRITIN PANE Cristian 04-09-2024 % SATURATION 53 % (calc) High 20-48 [facility] Comment on above: Order Comment: NON-F ASTING NON-FASTING NON-FASTING NON-FASTING NON-FASTING NON-FASTING Performed By: #### 8 99, 44040, 482, %21714, 7600, 496, 59082, 5616, %86479, 866, 6399 #### [facility] [address], [address] [place], [place] [address] Ladies Locker Room Attendant: Jeremías Martinez MD Ferritin [Mass/Vol] 302 ng/mL Normal 38-380 [facility] Comment on above: Order Comment: NON-F ASTING NON-FASTING NON-FASTING NON-FASTING NON-FASTING NON-FASTING Performed By: #### 8 99, 07977, 482, %39567, 7600, 496, 70026, 5616, %90632, 866, 6399 #### [facility] [address], [address] [place] [address] Ladies Locker Room Attendant: Jeremías Martinez MD IRON BINDING CAPACITY 390 mcg/dL (calc) Normal 250-425 [facility] Comment on above: Order Comment: NON-F ASTING NON-FASTING NON-FASTING NON-FASTING NON-FASTING NON-FASTING Performed By: #### 8 99, 77486, 482, %01301, 7600, 496, 15573, 5616, %10209, 866, 6399 #### [facility] [address], [address] [place] [address] Ladies Locker Room Attendant: Jeremías Martinez MD IRON, TOTAL 206 mcg/dL High 50-180 [facility] Comment on above: Order Comment: NON-F ASTING NON-FASTING NON-FASTING NON-FASTING NON-FASTING NON-FASTING Performed By: #### 8 99, 34027, 482, %04292, 7600, 496, 32191, 5616, %16035, 866, 6399 #### [facility] [address], [address] [place] [address] Ladies Locker Room Attendant: Jeremías Martinez MD LIPID PANEL, [facility] 03-31 Cholesterol [Mass/Vol] 226 mg/dL High <200 [facility] Comment on above: Performed By: #### 8 99, 10168, 482, %24113, 7600, 496, 83702, 5616, %92805, 866, 6399 #### [facility] [address], [address] [place] [address] Ladies Locker Room Attendant: Jeremías Martinez MD Cholesterol in HDL [Mass/Vol] 56 mg/dL Normal > OR = 40 [facility] Comment on above: Performed By: #### 8 99, 99711, 482, %54691, 7600, 496, [address], 5616, %34144, 866, 6399 #### [facility] [address], [address] [place] [address] Ladies Locker Room Attendant: Jeremías Martinez MD Cholesterol in LDL [Mass/Vol] 134 mg/dL High [facility] Comment on above: Result Comment: Refe rence range: <100 Desirable range <100 mg/dL for primary prevention; <70 mg/dL for patients with CHD or diabetic patients with > or = 2 CHD risk factors. LDL-C is now calculated using the Naty calculation, which is a validated novel method providing better accuracy than the Friedewald equation in the estimation of LDL-C. Markell SS et al. TIFFANI. 2013;310(19): 3125-0765 (http://education.[facility].com/faq/CIU032) Performed By: #### 8 99, 41462, 482, %38789, 7600, 496, 93344, 5616, %42644, 866, 6399 #### [facility] [address], [address] [place] [address] Ladies Locker Room Attendant: Jeremías Martinez MD Cholesterol.total/C holesterol in HDL [Mass ratio] 4.0 {ratio} Normal <5.0 [facility] Comment on above: Performed By: #### 8 99, 16577, 482, %82351, 7600, 496, 98669, 5616, %43067, 866, 6399 #### [facility] [address], [address] [place] [address] Ladies Locker Room Attendant: Jeremías Martinez MD NON HDL CHOLESTEROL 170 mg/dL (calc) High <130 [facility] Comment on above: Result Comment: For patients with diabetes plus 1 major ASCVD risk factor, treating to a non-HDL-C goal of <100 mg/dL (LDL-C of <70 mg/dL) is considered a therapeutic option. Performed By: #### 8 99, 57116, 482, %08375, 7600, 496, 88222, 5616, %59726, 866, 6399 #### [facility] [address], [address] [place] [address] Ladies Locker Room Attendant: Jeremías Martinez MD Triglyceride [Mass/Vol] 218 mg/dL High <150 [facility] Comment on above: Result Comment: If a non-fasting specimen was collected, consider repeat triglyceride testing on a fasting specimen if clinically indicated. Gopal et al. J. of Clin. Lipidol. 2015;9:129-169. Performed By: #### 8 99, 10908, 482, %88815, 7600, 496, 59077, 5616, %12819, 866, 6399 #### [facility] [address], [address] [place] [address] Ladies Locker Room Attendant: Jeremías Martinez MD T4, FREEon 04-09-2024 Free T4 [Mass/Vol] 1.2 ng/dL Normal 0.8-1.8 [facility] Comment on above: Performed By: #### 8 99, 61798, 482, %10962, 7600, 496, 78523, 5616, %09265, 866, 6399 #### [facility] [address], [address] [place] [address] Ladies Locker Room Attendant: Jeremías Martinez MD TSHon 04-09-2024 TSH Qn 2.17 m[IU]/L Normal 0.40-4.50 [facility] Comment on above: Performed By: #### 8 99, 02962, 482, %43761, 7600, 496, 38764, 5616, %88488, 866, 6399 #### [facility] [address], [address] [place] [address] Ladies Locker Room Attendant: Jeremías Martinez MD CNOVon 09-17-2023 CNOV Normal [facility] VIBRATION CONTROLLED TRANSIE NT ELASTOGRAPHY (POC)on 09-17-2023 [facility] CNPNon 09-15-2023 CNPN Normal [facility] C-REACTIVE PROTEIN (CRP)on CRP [Mass/Vol] <0.9 mg/dL [facility] CBC W Auto Differential pane l (Bld)on 09-12-2023 Basophils (Bld) [#/Vol] 0.12 10*3/uL High <0.11 [facility] Comment on above: Order Comment: Speci men Type: BLOOD SPECIMEN Ordering Facility: [facility] Address: [address] [place] [address] Performed By: #### 5 7021-8 #### [facility] CLIA [id number] [facility] [place] [address] [place] Basophils/100 WBC (Bld) 1.5 % Normal [facility] Comment on above: Order Comment: Speci men Type: BLOOD SPECIMEN Ordering Facility: [facility] Address: [address] [place] [address] Performed By: #### 5 7021-8 #### [facility] CLIA [id number] [address] [place] [address] [place] Differential cell count method Nom (Bld) Auto Normal [facility] Comment on above: Order Comment: Speci men Type: BLOOD SPECIMEN Ordering Facility: [facility] Address: [address] [place] [address] Performed By: #### 5 7021-8 #### [facility] IA [id number] [address] [place] [address] [place] Eosinophils (Bld) [#/Vol] 0.74 10*3/uL High <0.46 [facility] Comment on above: Order Comment: Speci men Type: BLOOD SPECIMEN Ordering Facility: [facility] Address: [address] [place] [address] Performed By: #### 5 7021-8 #### [facility] IA [id number] [address] [place] [address] [place] Eosinophils/100 WBC (Bld) 9.0 % Normal [facility] Comment on above: Order Comment: Speci men Type: BLOOD SPECIMEN Ordering Facility: [facility] Address: [address] [place] [address] Performed By: #### 5 7021-8 #### [facility] [place] [id number] [address] [place] Erythrocyte distribution width (RBC) [Ratio] 14.1 % Normal 11.5-15.0 [facility] Comment on above: Order Comment: Speci men Type: BLOOD SPECIMEN Ordering Facility: [facility] Address: [address] [place] [address] Performed By: #### 5 7021-8 #### [facility] IA [id number] [address] [place] Hematocrit (Bld) [Volume fraction] 53.2 % High 39.0-51.0 [facility] Comment on above: Order Comment: Speci men Type: BLOOD SPECIMEN Ordering Facility: [facility] Address: [address] [place] [address] Performed By: #### 5 7021-8 #### [facility] IA [id number] [address] [place] [address] [place] Hemoglobin (Bld) [Mass/Vol] 17.8 g/dL High 13.0-17.0 [facility] Comment on above: Order Comment: Speci men Type: BLOOD SPECIMEN Ordering Facility: [facility] Address: [address] [place] [address] Performed By: #### 5 7021-8 #### [facility] IA [id number] [address] [place] [address] [place] Immature granulocytes (Bld) [#/Vol] 0.06 10*3/uL Normal <0.10 [facility] Comment on above: Order Comment: Speci men Type: BLOOD SPECIMEN Ordering Facility: [facility] Address: [address] [place] [address] Performed By: #### 5 7021-8 #### [facility] IA [id number] [address] [place] [address] [place] Immature granulocytes/100 WBC (Bld) 0.7 % Normal [facility] Comment on above: Order Comment: Speci men Type: BLOOD SPECIMEN Ordering Facility: [facility] Address: [address] [place] [address] Performed By: #### 5 7021-8 #### [facility] IA [id number] [address] [place] [address] [place] Lymphocytes (Bld) [#/Vol] 1.48 10*3/uL Normal 1.00-4.00 [facility] Comment on above: Order Comment: Speci men Type: BLOOD SPECIMEN Ordering Facility: [facility] Address: [address] [place] [address] Performed By: #### 5 7021-8 #### [facility] IA [id number] [address] [place] [address] [place] Lymphocytes/100 WBC (Bld) 18.1 % Normal [facility] Comment on above: Order Comment: Speci men Type: BLOOD SPECIMEN Ordering Facility: [facility] Address: [address] [place] [address] Performed By: #### 5 7021-8 #### [facility] IA [id number] [address] [place] [address] [place] MCH (RBC) [Entitic mass] 26.5 pg Normal 26.0-34.0 [facility] Comment on above: Order Comment: Speci men Type: BLOOD SPECIMEN Ordering Facility: [facility] Address: [address] [place] [address] Performed By: #### 5 7021-8 #### [facility] IA [id number] [address] [place] [address] [place] MCHC (RBC) [Mass/Vol] 33.5 g/dL Normal 30.5-36.0 [facility] Comment on above: Order Comment: Speci men Type: BLOOD SPECIMEN Ordering Facility: [facility] Address: [address] [place] [address] Performed By: #### 5 7021-8 #### [facility] IA [id number] [address] [place] [address] [place] MCV (RBC) [Entitic vol] 79.2 fL Low 80.0-100.0 [facility] Comment on above: Order Comment: Speci men Type: BLOOD SPECIMEN Ordering Facility: [facility] Address: [address] [place] [address] Performed By: #### 5 7021-8 #### [facility] IA [id number] [address] [place] [address] [place] Monocytes (Bld) [#/Vol] 0.60 10*3/uL Normal <0.87 [facility] Comment on above: Order Comment: Speci men Type: BLOOD SPECIMEN Ordering Facility: [facility] Address: [address] [place] [address] Performed By: #### 5 7021-8 #### [facility] IA [id number] [address] [place] Monocytes/100 WBC (Bld) 7.3 % Normal [facility] Comment on above: Order Comment: Speci men Type: BLOOD SPECIMEN Ordering Facility: [facility] Address: [address] [place] [address] Performed By: #### 5 7021-8 #### [facility] CLIA [id number] [address] [place] [address] [place] Neutrophils (Bld) [#/Vol] 5.19 10*3/uL Normal 1.45-7.50 [facility] Comment on above: Order Comment: Speci men Type: BLOOD SPECIMEN Ordering Facility: [facility] Address: [address] [place] [address] Performed By: #### 5 7021-8 #### [facility] CLIA [id number] [address] [place] [address] [place] Neutrophils/100 WBC (Bld) 63.4 % Normal [facility] Comment on above: Order Comment: Speci men Type: BLOOD SPECIMEN Ordering Facility: [facility] Address: [address] [place] [address] Performed By: #### 5 7021-8 #### [facility] CLIA [id number] [address] [place] [address] [place] Nucleated RBC (Bld) [#/Vol] 10*3/uL Normal <0.01 [facility] Comment on above: Order Comment: Speci men Type: BLOOD SPECIMEN Ordering Facility: [facility] Address: [address] [place] [address] Performed By: #### 5 7021-8 #### [facility] CLIA [id number] [address] [place] [address] [place] Nucleated RBC/100 WBC (Bld) [Ratio] 0.0 /100 WBC Normal [facility] Comment on above: Order Comment: Speci men Type: BLOOD SPECIMEN Ordering Facility: [facility] Address: [address] [place] [address] Performed By: #### 5 7021-8 #### [facility] CLIA [id number] [address] [place] [address] [place] Platelet mean volume (Bld) [Entitic vol] 12.2 fL Normal 9.0-12.7 [facility] Comment on above: Order Comment: Speci men Type: BLOOD SPECIMEN Ordering Facility: [facility] Address: [address] [place] [address] Performed By: #### 5 7021-8 #### [facility] CLIA [id number] [address] [place] [address] [place] Platelets (Bld) [#/Vol] 218 10*3/uL Normal 150-400 [facility] Comment on above: Order Comment: Speci men Type: BLOOD SPECIMEN Ordering Facility: [facility] Address: [address] [place] [address] Performed By: #### 5 7021-8 #### [facility] CLIA [id number] [address] [place] [address] [place] RBC (Bld) [#/Vol] 6.72 10*6/uL High 4.20-6.00 [facility] Comment on above: Order Comment: Speci men Type: BLOOD SPECIMEN Ordering Facility: [facility] Address: [address] [place] [address] Performed By: #### 5 7021-8 #### [facility] CLIA [id number] [address] [place] [address] [place] WBC (Bld) [#/Vol] 8.19 10*3/uL Normal 3.70-11.00 [facility] Comment on above: Order Comment: Speci men Type: BLOOD SPECIMEN Ordering Facility: [facility] Address: [address] [place] [address] Performed By: #### 5 7021-8 #### [facility] CLIA [id number] [address] [place] [address] [place] Basophils (Bld) [#/Vol] 0.12 10*3/uL High <0.11 k/uL [facility] Basophils/100 WBC (Bld) 1.5 % [facility] Differential cell count method Nom (Bld) Auto [facility] Eosinophils (Bld) [#/Vol] 0.74 10*3/uL High <0.46 k/uL [facility] Eosinophils/100 WBC (Bld) 9.0 % [facility] Erythrocyte distribution width (RBC) [Ratio] 14.1 % 11.5 - 15.0 % [facility] Hematocrit (Bld) [Volume fraction] 53.2 % High 39.0 - 51.0 % [facility] Hemoglobin (Bld) [Mass/Vol] 17.8 g/dL High 13.0 - 17.0 g/dL [facility] Immature granulocytes (Bld) [#/Vol] 0.06 10*3/uL <0.10 k/uL [facility] Immature granulocytes/100 WBC (Bld) 0.7 % [facility] Lymphocytes (Bld) [#/Vol] 1.48 10*3/uL 1.00 - 4.00 k/uL [facility] Lymphocytes/100 WBC (Bld) 18.1 % [facility] MCH (RBC) [Entitic mass] 26.5 pg 26.0 - 34.0 pg [facility] MCHC (RBC) [Mass/Vol] 33.5 g/dL 30.5 - 36.0 g/dL [facility] MCV (RBC) [Entitic vol] 79.2 fL Low 80.0 - 100.0 fL [facility] Monocytes (Bld) [#/Vol] 0.60 10*3/uL <0.87 k/uL [facility] Monocytes/100 WBC (Bld) 7.3 % [facility] Neutrophils (Bld) [#/Vol] 5.19 10*3/uL 1.45 - 7.50 k/uL [facility] Neutrophils/100 WBC (Bld) 63.4 % [facility] Nucleated RBC (Bld) [#/Vol] <0.01 k/uL [facility] Nucleated RBC/100 WBC (Bld) [Ratio] 0.0 /100 WBC [facility] Platelet mean volume (Bld) [Entitic vol] 12.2 fL 9.0 - 12.7 fL [facility] Platelets (Bld) [#/Vol] 218 10*3/uL 150 - 400 k/uL [facility] RBC (Bld) [#/Vol] 6.72 10*6/uL High 4.20 - 6.0 0 m/uL [facility] WBC (Bld) [#/Vol] 8.19 10*3/uL 3.70 - 11. 00 k/uL [facility] CNOVon 09-12-2023 CNOV Normal [facility] CRP SerPl-mCncon 09-12-2023 CRP [Mass/Vol] mg/L Normal <0.9 [facility] Comment on above: Order Comment: Speci men Type: BLOOD SPECIMEN Ordering Facility: [facility] Address: [address] [place] [address] Performed By: #### 1 988-5, #### [facility] CLIA [id number] [address] [place] [address] [place] Comprehensive metabolic 2000 panelon 09-12-2023 Albumin [Mass/Vol] 5.0 g/dL High 3.9-4.9 [facility] Comment on above: Order Comment: Speci men Type: BLOOD SPECIMEN Ordering Facility: [facility] Address: [address] [place] [address] Performed By: #### 1 988-5, #### [facility] CLIA [id number] [address] [place] [address] [place] ALP [Catalytic activity/Vol] 124 U/L High 38-113 [facility] Comment on above: Order Comment: Speci men Type: BLOOD SPECIMEN Ordering Facility: [facility] Address: [address] [place] [address] Performed By: #### 1 988-5, #### [facility] CLIA [id number] [address] [place] [address] [place] ALT [Catalytic activity/Vol] 133 U/L High 10-54 [facility] Comment on above: Order Comment: Speci men Type: BLOOD SPECIMEN Ordering Facility: [facility] Address: [address] [place] [address] Performed By: #### 1 988-5, 93872-1 #### [facility] CLIA [id number] [address] [place] [address] [place] Anion gap [Moles/Vol] 13 mmol/L Normal 9-18 [facility] Comment on above: Order Comment: Speci men Type: BLOOD SPECIMEN Ordering Facility: [facility] Address: [address] [place] [address] Performed By: #### 1 988-5, #### [facility] CLIA [id number] [address] [place] [address] [place] AST [Catalytic activity/Vol] 78 U/L High 14-40 [facility] Comment on above: Order Comment: Speci men Type: BLOOD SPECIMEN Ordering Facility: [facility] Address: [address] [place] [address] Performed By: #### 1 988-5, #### [facility] CLIA [id number] [address] [place] [address] [place] Bilirubin [Mass/Vol] 0.5 mg/dL Normal 0.2-1.3 [facility] Comment on above: Order Comment: Speci men Type: BLOOD SPECIMEN Ordering Facility: [facility] Address: [address] [place] [address] Performed By: #### 1 988-5, #### [facility] CLIA [id number] [address] [place] [address] [place] Calcium [Mass/Vol] 9.6 mg/dL Normal 8.5-10.2 [facility] Comment on above: Order Comment: Speci men Type: BLOOD SPECIMEN Ordering Facility: [facility] Address: [address] [place] [address] Performed By: #### 1 988-5, #### [facility] CLIA [id number] [address] [place] [address] [place] Chloride [Moles/Vol] 102 mmol/L Normal 97-105 [facility] Comment on above: Order Comment: Speci men Type: BLOOD SPECIMEN Ordering Facility: [facility] Address: [address] [place] [address] Performed By: #### 1 988-5, #### [facility] CLIA [id number] [address] [facility] [address] [place] CO2 [Moles/Vol] 22 mmol/L Normal 22-30 [facility] Comment on above: Order Comment: Speci men Type: BLOOD SPECIMEN Ordering Facility: [facility] Address: [address] [place] [address] Performed By: #### 1 988-5, 64655-3 #### [facility] CLIA [id number] [address] [place] [address] [place] Creatinine [Mass/Vol] 1.04 mg/dL Normal 0.73-1.22 [facility] Comment on above: Order Comment: Speci men Type: BLOOD SPECIMEN Ordering Facility: [facility] Address: [address] [place] [address] Performed By: #### 1 988-5, 77495-8 #### [facility] CLIA [id number] [address] [place] [address] [place] [facility] Creatinine and Glomerular filtration rate.predicted panel (S/P/Bld) 98 mL/min/1.73m??? Normal >=60 [facility] Comment on above: Order Comment: Speci men Type: BLOOD SPECIMEN Ordering Facility: [facility] Address: [address] [place] [address] Result Comment: Faye mated Glomerular Filtration Rate (eGFR) is calculated using the 2020 CKD-EPI creatinine equation. This equation utilizes serum creatinine, sex, and age as parameters. The creatinine assay has traceable calibration to isotope dilution-mass spectrometry. Refer to KDIGO guidelines for clinical interpretation. In patients with unstable renal function, e.g. those with acute kidney injury, the eGFR may not accurately reflect actual GFR. Performed By: #### 1 988-5, 92733-9 #### [facility] CLIA [id number] [address] [place] [address] [place] Glucose [Mass/Vol] 106 mg/dL High 74-99 [facility] Comment on above: Order Comment: Speci men Type: BLOOD SPECIMEN Ordering Facility: [facility] Address: [address] [place] [address] Result Comment: The [place] Diabetes Association (ADA) provides guidance for cutoff values for fasting glucose and random glucose. The ADA defines fasting as no caloric intake for at least 8 hours. Fasting plasma glucose results between 100 to 125 mg/dL indicate increased risk for diabetes (prediabetes). Fasting plasma glucose results greater than or equal to 126 mg/dL meet the criteria for diagnosis of diabetes. In the absence of unequivocal hyperglycemia, results should be confirmed by repeat testing. In a patient with classic symptoms of hyperglycemia or hyperglycemic crisis, random plasma glucose results greater than or equal to 200 mg/dL meet the criteria for diagnosis of diabetes. Reference: Standards of Medical Care in Diabetes 2016, [place] [employer] Association. Diabetes Care. 2016.39(Suppl 1). Performed By: #### 1 988-5, 76599-1 #### [facility] CLIA [id number] [address] [place] [address] [place] Potassium [Moles/Vol] 4.7 mmol/L Normal 3.7-5.1 [facility] Comment on above: Order Comment: Khushbu grajeda Type: BLOOD SPECIMEN Ordering Facility: [facility] Address: [address] [place] [address] Performed By: #### 1 988-5, 06808-7 #### [facility] CLIA [id number] [address] [place] [address] [place] Protein [Mass/Vol] 7.9 g/dL Normal 6.3-8.0 [facility] Comment on above: Order Comment: Khushbu grajeda Type: BLOOD SPECIMEN Ordering Facility: [facility] Address: [address] [place] [address] Performed By: #### 1 988-5, 95167-9 #### [facility] CLIA [id number] [address] [place] [address] [place] Sodium [Moles/Vol] 137 mmol/L Normal 136-144 [facility] Comment on above: Order Comment: Khushbu grajeda Type: BLOOD SPECIMEN Ordering Facility: [facility] Address: [address] [place] [address] Performed By: #### 1 988-5, 59598-2 #### [facility] CLIA [id number] [place] [address], [place] [address] [place] Urea nitrogen [Mass/Vol] 11 mg/dL Normal 9-24 [facility] Comment on above: Order Comment: Speci men Type: BLOOD SPECIMEN Ordering Facility: [facility] Address: [place] [id number] Performed By: #### 1 988-5, 22560-1 #### [facility] CLIA [id number] [address] [place] [address] [place] Albumin [Mass/Vol] 5.0 g/dL High 3.9 - 4.9 g/dL [facility] ALP [Catalytic activity/Vol] 124 U/L High 38 - 113 U/L [facility] ALT [Catalytic activity/Vol] 133 U/L High 10 - 54 U/L [facility] Anion gap [Moles/Vol] 13 mmol/L 9 - 18 mmol/L [facility] AST [Catalytic activity/Vol] 78 U/L High 14 - 40 U/L [facility] Bilirubin [Mass/Vol] 0.5 mg/dL 0.2 - 1.3 mg/dL [facility] Calcium [Mass/Vol] 9.6 mg/dL 8.5 - 10. 2 mg/dL [facility] Chloride [Moles/Vol] 102 mmol/L 97 - 105 mmol/L [facility] CO2 [Moles/Vol] 22 mmol/L 22 - 30 mmol/L [facility] Creatinine [Mass/Vol] 1.04 mg/dL 0.73 - 1.22 mg/dL [facility] Estimated Glomerular Filtration Rate 98 mL/min/1.73m >=60 mL/min/1.73m [facility] Glucose [Mass/Vol] 106 mg/dL High 74 - 99 mg/dL [facility] Potassium [Moles/Vol] 4.7 mmol/L 3.7 - 5.1 mmol/L [facility] Protein [Mass/Vol] 7.9 g/dL 6.3 - 8.0 g/dL [facility] Sodium [Moles/Vol] 137 mmol/L 136 - 144 mmol/L [facility] Urea nitrogen [Mass/Vol] 11 mg/dL 9 - 24 mg/dL [facility] ESR Westergren method (Bld) [Velocity]on 09-12-2023 ESR (Bld) [Velocity] 2 mm/h 0 - 15 mm/hr [facility] ESR (Bld) [Velocity] 2 mm/h Normal 0-15 [facility] Comment on above: Order Comment: Khushbu grajeda Type: BLOOD SPECIMEN Ordering Facility: [facility] Address: [address] [place] [address] Performed By: #### 4 537-7 #### [facility] CLIA [id number] [address] [place] [address] [place] HAV IgM Ser Qlon 09-12-2023 HAV IgM Ql (S) Negative Normal Negative [facility] Comment on above: Order Comment: Khushbu grajeda Type: BLOOD SPECIMEN Ordering Facility: [facility] Address: [address] [place] [address] Result Comment: No e vidence of recent infection with Hepatitis A virus. Performed By: #### 1 988-5, 93987-9 #### [facility] CLIA [id number] [address] [facility]. [address] [place] HBV core IgM Ser Qlon 2022 HBV core IgM Ql (S) Negative Normal Negative [facility] Comment on above: Order Comment: Khushbu grajeda Type: BLOOD SPECIMEN Ordering Facility: [facility] Address: [address] [place] [address] Result Comment: No e vidence of recent infection with Hepatitis B virus. Should recent infection be suspected, repeat testing may be considered 3-4 weeks after this draw. Performed By: #### 2 2322-2, 38317-0, 5195-3, 74351-2 #### [facility] CLIA [id number] [address] [place] [address] [place] HBV surface Ab Ql (S)on 08-31 HBV surface Ab Qn (S) <8.00 Normal [facility] Comment on above: Order Comment: Khushbu grajeda Type: BLOOD SPECIMEN Ordering Facility: [facility] Address: [address] [place] [address] Result Comment: <8 m IU/mL: No serological evidence of immunity to Hepatitis B Virus. >/= 8 to <12 mIU/mL: No serological evidence of immunity to Hepatitis B Virus. >/= 12 mIU/mL: Consistent with serological evidence of immunity to Hepatitis B Virus. Performed By: #### 2 2322-2, 09219-5, 5195-3, 30114-0 #### [facility] CLIA [id number] [facility] [place], [place] [id number] [place] HBV surface Ab Ser Qlon 08-31 HBV surface Ab Ql (S) Negative Normal [facility] Comment on above: Order Comment: Speci men Type: BLOOD SPECIMEN Ordering Facility: [facility] Address: [address] [place] [address] Result Comment: No s erological evidence of immunity to Hepatitis B Virus. Performed By: #### 2 2322-2, 05908-9, 5195-3, 27261-2 #### [facility] CLIA [id number] [address] [place] [address] [place] HBV surface Ag Ser Qlon 08-31 HBV surface Ag Ql (S) Initially Reactive Abnormal Negative [facility] Comment on above: Order Comment: Khushbu grajeda Type: BLOOD SPECIMEN Ordering Facility: [facility] Address: [address] [place] [address] Result Comment: Plea se see HBsAg confirmatory assay result. Confirmatory testing for hepatitis B surface antigen has been ordered and charged. Performed By: #### 1 988-5, 93212-2 #### [facility] CLIA [id number] [facility]. [address] STATES OF [facility] HBV surface Ag Ql (S) Positive Abnormal Negative, Test not Indicated [facility] Comment on above: Order Comment: Luisi taras Type: BLOOD SPECIMEN Ordering Facility: [facility] Address: [address] [place] [address] Result Comment: The result is consistent with active Hepatitis B Virus Infection. HBsAg, however, may test positive up to few weeks after administration of Hepatitis Be vaccine. Clinical correlation is required. Performed By: #### 1 988-5, 34675-3 #### [facility] CLIA [id number] [place] [address] [place] HCV Ab Ser Qlon 09-12-2023 HCV Ab Ql (S) Positive Abnormal Negative [facility] Comment on above: Order Comment: Speci men Type: BLOOD SPECIMEN Ordering Facility: [facility] Address: [address] [place] [address] Performed By: #### 1 6128-1, 23835-9 #### [facility] CLIA [id number] [address] [place] [address] [place] HCV RNA SerPl GERMÁN+probe-aCnc on 09-12-2023 HCV RNA GERMÁN+probe Qn Not detected Normal HCV RNA not detected by PCR. [facility] Comment on above: Order Comment: Speci men Type: BLOOD SPECIMEN Ordering Facility: [facility] Address: [address] [place] [address] Performed By: #### 1 1011-4 #### [facility] CLIA [id number] [address] [place] [address] [place] Performed By: #### 1 6128-1, 87149-2 #### [facility] CLIA [id number] [address] [place] [address] [place] HIV 1+2 Ab IA Qlon 3 HIV 1 and 2 Ab IA.rapid Nom Normal [facility] Comment on above: Order Comment: Speci men Type: BLOOD SPECIMEN Ordering Facility: [facility] Address: [address] [place] [address] Result Comment: Test not indicated. Performed By: #### 1 988-5, 59589-6 #### [facility] CLIA [id number] [place] [address] [place] HIV 1+2 Ab+HIV1 p24 Ag IA Ql Non-Reactive Normal Nonreactive [facility] Comment on above: Order Comment: Speci men Type: BLOOD SPECIMEN Ordering Facility: [facility] Address: [address] [place] [address] Performed By: #### 1 988-5, 81141-5 #### [facility] CLIA [id number] [facility] [place] [address] [place] HIV immunoassay testing algorithm interpretation (S/P/Bld) [Interp] Normal [facility] Comment on above: Order Comment: Khushbu grajeda Type: BLOOD SPECIMEN Ordering Facility: [facility] Address: [address] [place] [address] Result Comment: No e vidence of HIV-1 or HIV-2 infection. Should recent infection be suspected, repeat testing may be considered 2-3 weeks after this draw. [place] Rev. Code 3701.243(E): This information has been disclosed to you from confidential records protected from disclosure by state law. ???You shall make no further disclosure of this information without the specific, written, and informed release of the individual to whom it pertains or as otherwise permitted by state law. A general authorization for the release of medical or other information is not sufficient for the purpose of the release of HIV test results or diagnoses. Performed By: #### 1 988-5, 91879-7 #### [facility] CLIA [id number] [address] [facility] [place] [address] [place] PT panel Coag (PPP)on 2022 INR Coag (PPP) [Relative time] 1.0 {INR} Normal 0.9-1.3 [facility] Comment on above: Order Comment: Khushbu grajeda Type: BLOOD SPECIMEN Ordering Facility: [facility] Address: [address] [place] [address] Result Comment: Salma min K Antagonist (VKA) Therapeutic Range: INR 2 to 3 (Target INR of 2.5) Note: For patients treated with VKA drugs, such as warfarin, the [place] [employer] 2012 Guideline recommends a therapeutic INR range of 2 to 3 (target INR of 2.5). This recommendation includes high-risk patients with antiphospholipid syndrome with previous arterial or venous thromboembolism, current-generation mechanical or bioprosthetic aortic heart valve replacement. Note: Patients with mechanical aortic valve replacement and additional risk factors for thromboembolic events (atrial fibrillation, previous thromboembolism, LV dysfunction, hypercoagulable conditions) or an older generation mechanical AVR (i.e., ball in-Cage) or any mechanical MVR should have a INR therapeutic range of 2.5 to 3.5 (target INR of 3). Harley GH, et al. Chest 2012, 141:7S-47S Adriana RA, et al. [facility] 2017, 70: 252-289 Performed By: #### 3 4528-0 #### [facility] CLIA [id number] [address] [place] [address] [facility] [place] PT Coag (PPP) [Time] 10.8 s Normal 9.7-13.0 [facility] Comment on above: Order Comment: Speci men Type: BLOOD SPECIMEN Ordering Facility: [facility] Address: [place] [id number] Performed By: #### 3 4528-0 #### [facility] CLIA [id number] [facility] [place] [address] [facility] INR Coag (PPP) [Relative time] 1.0 {INR} 0.9 - 1.3 [facility] PT Coag (PPP) [Time] 10.8 s 9.7 - 13.0 sec [facility] COVID CepheidOrdered By: Ania Shultz on 11-11-2022 SARS-CoV-2 (COVID-19) Ab IA Ql Positive Negative [facility] Comment on above: This is a duplicate Cepheid Xpert Xpress CoV-2/Flu/RSV Plus RNA by RT-PCR result to be used for statistical tracking purpose only. SARS-CoV-2 (COVID-19) RNA GERMÁN+probe Ql (Unsp spec) [facility] XR ANKLE RT MIN 3 VIEWSon XR ANKLE RT MIN 3 VIEWS EXAM: XR ANKLE RT MIN 3 VIEWS, XR FOOT RT MIN 3 VIEWS HISTORY: Unable to put pressure on foot after dropping heavy object COMPARISON: None. TECHNIQUE: 3 views of the ankle and 3 views of the foot. FINDINGS: No osseous lesion, fracture, dislocation or subluxation. Joint spaces are normal. No visualized effusion. No visualized soft tissue edema. IMPRESSION: Normal x-rays Electronically authenticated by: ADOLFO HAIDER Date: 2022-05-15 21:06 Normal [facility] Coding Summaryon 05-27-2022 Coding Summary HTMLBase 64 TcvdnumwYTg3mXh+PGhlYWQ+PE1 WPQXyX75huPRcjD2PO3mVZL3HOS MOSUICQL9HZD9obKF2MYbgD0Vxm iAv UhbagUIgRD00WWv2XIM9wOgdPUi jdW3opHStI5i6NgTyAW48gJ89HO vqHBFqBeR5JmWmqkviwUTg N8cjKsRgiZLgUxc+PHRhYmxlIHd lKBOuBKnuTTOdIcIczJunNF7kAp 9yZGVyLWNvbGxhcHNlOiBj v9foUZBrUWxdCF1gqYgkC5IlmFY 4GNBed0l7Ig44mPZ+ONCuFSM6iK cuINbqe385RcZmv8zqYWM6 sFWlDVxpXQP1C06ay4I9RAAgBKJ fSZL8uNQ6dP4saZqhmhsiD8SscM KuHcL9RDW8kNUnoN6fyZeb zjotwS7yVhw+O26CDE4ONJRXHW2 ZBer7K0YjQtlftTW+LZ00ARFbYL 03dIZqyZUvl9dqkYa6TqEe SSZqUBB9kNcrUTrhg9XtJDOsV19 mhNVko5L1GVPniLokfVDiFnVjnH C3hI0rAQqktfnnv4fhlbsl Phkkw0pvpe99jB40Z25lREryUMC rRDO2RSSwYYEnjJwkhx0xfN5bAb 8+WMzia4wsb9uyiJq9MmJs OAIxwnWzcAhtHDV0u2JjXj55U6K pnGcbf6FmKkx9wb78qMVqw1K4iH P8ZYigKQPggL8yRTuaVfZ4 JQArWjXgfX24zSWfRIeiAv2pfLt bkFrwGQ9wSKBribwxSQUylH4cKR AygUCtjEydPW4tZGAfrstg u260GzZlCDD7JYApxSOkK9JwuI7 aJqZyUTFgUTFqR5AwkIHaAGzeX1 42NOmvCtR6DSBqtuMjV6Lg OTBxjEtjQrX5c1Z9Sr4Gd2Dqeoy bTIG1FDwzIQM0YvL3HnRkFeM8V4 QzDcw0YMYcrSuxXM3gV9Ba QUYdwhjflfvyfDA7PYQgNJHxsA3 7zQYoZNmjZm8ww1X5h414UORfHN OsmQ16Jr5wsBebSVGtpPZE nC8buhiie5tftdnjBvNqNLJlZUs 4FCd0ALAnxHjsJyBfNLP9KeB9OG Y1vUTyhI8obTzjwwgvqL2y Oyc+J81weE2yFVH0YYJ6zhlxZON zerIaKB13OX13S1EzMivrgOXcsA U+CLJcmfFxkRisNP0hAgMu c2apd2HnAQzkT2QuTNOnNVxeSkr 8DIMkWMQ8gUW4nT4lXPFhOStep5 T5bAM5N6FzbtAivm1qr7qx YLVoTWzqO94ixITgo6W6KXYdeUP 9IYVvsMwcJzBtuF14Uub+PGNvbG ixh4GtZombc6bpx1zqnUv6 XmAjCOLvgkYbuKpqYNU2z2FqZe7 0W40vBYxrUAOpAJLtIZWrPETqeB okzk5xsR5pJr7+PGNvbCB3 pPU4uM6hXTUgLrQ4IEqkA878QcE rgCAuGbvnp6qcd2ycuNq0YnWuNH GgxdApjWwsXIK6u2LeKq00 W59mXTvxGCXwVUBrCQIcQFMlvUo emy9gbG0aAg7+XE1wo9ehbu55aO 48dHI+JZBaTIF0eGlnALch RCUebI9jLZenQhM0KRIlQxFooA1 5uVIqKBswQi9sjYlrtIufPC4rEG Hffditw395FiVam0cfBZNp yDFuCMulRRJ2S56we5X8ONDoDKU qEIU4yWM7uE8esGjkndgymTGgvK auqlMgrCaoSNylBPwnR336 IHRvcDsnPlBhdGllbnQgTmFtZTo 9E1BpQrn1SKJycKqtHD5teANkNY woJb2hcIwruChjPR2hOUVl xyctl264GmVtb5iaDAYexLXsUIf lDPB8S46en1R9ILLiXXGaRXO2gX I6zC6kkYcjjfkpwIOuqGfj nuDemKmvBNxuBOziE543QACuqOp yReUijbItBXYxgXC5GA29UI65gC Vkp4I6jMM2G4AfFLBbhhsi eyqyiVF9CRQhZJOwtO27Hp8loQa nSx1vHDTyFDX3SWXsyBPoZ7PlzY 6lEmHlIQFrCWCnQ3LidYVl CXskM918ODxiPvI7WYUqrnZkK8J sPSJroIldZiJ5p7T3Rr3OX7P4TX 92EN45fMTvv2F7ySN3B6Wx BJEuzqialtcbsDW6KZDwSTZdqZ7 6Bo3thTdjDo3dUWXvGPD5LMQzlT NqZ3WpxN0tNfUxQQCcGJNk M3DkeHYaRTphL863PWkjPlS8RIZ pauQeD0VyNSUgiFhxJeC4g3W7Ge 9VOEy5ZY13LW96rOJac1N1 tHB2N1GuNWIpfnoyfdiyoJR4YXX sIMTxoH01Sd4gsGczBg0rWSEwDI I4HUQgmXVgS7UthO6yYiYb MGBaNQXwM7SqeIJcKFtgM988KJp uQrR4KNGbypDkH0ZrDPFjvAbrUi A4p2G8Pg4QTIEeMP20BNW4 nVG0PJ78ZL27A0BmSysnkWUfqTO +PHRhYmxlIHdpZHRoPScxMDAlJy BacVftDD3rSw1hGTReCEVu wVybuDRzXwEcl8uxGEAhGWkjMV8 ypAguR7ZnjUW5TSIok8t5Vz05N3 7tJ8BjfEM+GNUzoFH1bOR6 nK2ePoEvEoS0HVpuQ147MnDvwKT vGudfz1pxq1ckiQq3WbY9MDNfwz QbpDozLZG3o4KdVg91Z87s IHdpZHRoPSIxNSUiIHZhbGlnbj0 jnD4eAr2+KXFfwBN2aKB2uV4bEx KmJeB1PZjaG256MzNfcNVr Qlvnw0qdd2kiiSu7CkUuYUGbjbH ynFvpOCX5j1HyPh65O6SweMoxn1 YpLhl0xq59bHPbw0Q3hXB6 F2CmKOPykcsrhGGlpNnwFL4sQXB hotbcESUmyI0oENPkF2n3NcJbMd H3PEhaT4QdxvR7XGEifZCv WHxoMGB8L50ny4E0ICPvUBAsCEQ 5jHJ2iH2ltMsxodaziGKvwCuqzr VmaFhqXMqzRVoaS151JFBy gCdmBKBzhC0oSBMbwYLcrTaaIR8 wNTBpbjsnPkhVQkVSLCBLWUxFIF BFH0c2C9BjCjo8NHTrgInb RQ9exAGlEKlgXm8jaJekbHpzAY1 ySTDsrbcgJWTlqS7pZFQngUGeuD wfYY8mIIFisjybj509NpPu MHC4WYXpwIYaR8EdkK3iDdGmPKM pNBSbU8RieMIlEJdkT598RUhqPv A2VJTvlpCdF1YvTQSltNaz UjO4z6Q0Bj5aZc8mTl6aUJrkFB2 4SA92lMDpq5Y9hKV5G2MlXSLydk whmfuxaVE0ZLQpHUKidO14 pRCsVJrxTi3ib5Z0f987TJEyHOL oyC78Kz6beFdlNSDmvPFWwN6tgb fud2ddiaehQlJiYVDnUXe8 BSj3JFHqrTbuOmPpDFY9GmO7DEI 2yVYlaF5uhAzywnfuvU8pCnh+Mz KnKQXwreF3W7AkCju0GAJx uQzcMO1fbUJnSNanSh2qpJskbYq oOO2jYJHgbofyZXWcwE0tLGDmeG SslZxpSN6wRJJujdhkc960 WzAbCDT7NLRseTIeT2PbyF7bCzN lLAGeCTBmV4UkiTRhARinR473JK kfTgJ6XBWbmbZcD8MoVAJm yOwaTxY1u2S4Bu7HOYjZHO11KV5 2aELje9O7hEV9G7AkGJCwuevryg uhqSC9LXElPKQyvJ42nQTb THqjGw6xm4C7s667MZLaANZxcP6 2Rc6twLytXUOrpROYvV8kxtbnm5 ogdxbcDjFbEQZzXOt7KUy6 ETAeyIqzKjFuZHC4LuZ5CMU7kTU pcE4amBvyaxafxE0zJhz+T1A8L3 RkPjwvdHI+RR69IQCgFW72 pXQxuNIwc5ipuXw2YnZhEMZlEJI 7aXamSLdqw1TbEEYeP35duBVlm5 A9IJRbrIxgxPBkCuXptVW8 vF9tANjifzxum8atmjmsFserg9x urz89fB71K27fKPybOTQpSAVlMW KdRQJifEkrln9cdQ8dWz9+ LUIaeHU1pIV0oV4oTwUeDiZ1ZVu mQ765JjVgrRByUredc7wqa7hyoR g9DkLqBPBclwVqyMdvVPQ9 k9TqHr63Z61gOEuqSBKcHMOhOAZ aFLGwdCanyn0fbP0nSp2+PC9jb2 mbyb47gK08aZF+PHRkIHN0 hHxpEXexMQCerU8dVOsqUsE4PJG bRjZmyF34xCGyFFrgGu0ysVsgmP cbAK4dOGAamlapg531VlYl n8xpIMTagANxTAkxOWI9S12qo7N 9BOFeGVBuBWJ0gKN1bH5ucVkgnu ogbGVmdDsgdmVydGljYWwt SOfdN386VZTjpEdmKbZraULwO5o idrDLCS6tLgyqzVS+IZCqCOV5xR eyYCubBHRyzJ0sLUShA1c1 YxPxDbN0XYfcV2EviqB5WLBwbGX nESVjyJGXmW5ldsolb2hmthyuTs NjRLEpKZq0QJc8SCXycAdx HaEnDJR1AeI3TMV1zGDcsM6oxDk wwxidwS0cDol+RklOOjwvdGQ+PH YgOCQ1wYzfCGsdWMWbfY4x MCUhG1j4KlJpAuP4WKxqG2QnwxS 6TWXpfEHsUQDqaHPCwA3jjogjt2 iomoioIyLkPMBsXKt8OKu9 XINqiEbeGzQoCHL5HdU4BHS8mNV qfP5tfEjuznjjfZ5eTou+TVJOOj wvdGQ+ZUIhNUW2bXcsLAfz OPUmpV2zZYTqZ4r7PbKtQxZ8DNx fT9UodlS8MNMhsZMqOBWtsJGQiB 9selnbt5nfiltxBsHiWTWa GYd7IPj3BLCcjLxzDiVeRCF8ItH 9PRX2lCCajN6jpUizqowxbK7bGa c+IIK3FLH7YW58OD03Z1Mo PjwvdGFibGU+PHRhYmxlIHdpZHR kVFqzRMMaKyGbjJfcAQ7xPz2lMN AyBULmnYeehGPjRrNuh9vl YXB (more content not included)... [facility] Summary HTMLBase 64 JhtvhodkGZk3dOi+PGhlYWQ+PE1 IZDIoI84yiPNyvW0IK3iOCR2YRU DMJJCWKI3QVS0jvAP4BGjtH8Pdv iAv WhfmwCNsFA06ZPk0IKA8aDojBGy kiM2vuOQqU5y3AbVvQA65xR90RT emJTCwCmW4OpIaocfdcHLt O7biWjTcyWEmYrt+PHRhYmxlIHd kYZNgXUquZVPcRxCedCtuLU8cIc 9yZGVyLWNvbGxhcHNlOiBj j9caICQqJVxmCQ8rmZzuL3KybHF 7DJArd7p9Qa86dPF+LOIzBDA9lT wzJEtoa459PnLiu2dlIHB7 cBLyXFiuUXQ8G89hu6H9NLTlLXO qXNN1gWP4sJ9xeQburjyrU2FpwR XrGtU5ILQ6vRXwaA0htYfe woplcU9cHjs+I49JSC8SGZHEVJ0 ANwu4A5KdHacmkEL+BY20PRMsPZ 04yBLznYJdy1zihMe4UpUh KYVoXIM8rAdaUVutx1XhTRXuR99 usBTyk7B8LYOpyYrufONiFrVpdR G4eP3xLDefdipsn3pqdxqs Qttco0axul96bP08W52aXBzjXYX uRVS5HVRuHLRrxTohxm9olH0oIg 8+GPajc8sfa9wtaJp1BdUc CHJuvnWshZvhXRZ4t1YoFf78Z9X mjErtc2KwKmh5qz42iOEws4W4vM O7VAzpNULozX9yFZnfJqM8 UNUeFxGrjZ80cTAoRFgwBn1jlHj sjOleLC5mUBSgtkiiHZZujZ7cKO LanWByqTplWY0kCPXjxmrl f938EjZxJHA4OMXjnGYyE6XqcS6 oUlRzGCSmDHRoR8AdsELxZTunL9 40KSzeFfF6YFCucjIgY5Sy NPKldZxzFjQ2k6Z6Oj5Yz7Lebpa kYIP7TPwxQDD2BmD4OsKuSnN7F6 UkIcw1ROZjaViaWR6zE8Mr XKEzqrzruweenLI2PLOlEATmjI4 2pRZoGGamFh0rv0V6j621BXKmUM CopT76Fz3hrNsfXBAozCBY sQ5dofzcw0lhslliTmMyAPYcWLh 7MHl8VFCcwFhsEuXeAJS3IlB6EY C6zLIhbP3wgVzfmyxrzQ4w Oyc+Q27fyQ8jRCA5WRW6gmauXMJ rcrDfPU76UT90H0VpVowoaYRhvV U+SBPcvnBywDflMY2iLyWl x3rfv2RfKYiyV0FnQVDtVAgyYio 6VHDeBJS1mRX0eJ2sCRWzMLvhr5 J8xNV2J2WtetGier0gi8rc XUEmNUvnC33iePFjw2J2FIZuoPA 1KNSfhJffRxOahR45Siw+PGNvbG pna0NxSkswh5ppq8pjaRx1 OiYjLKAkkzXwtZcoZLW7g4UvQm0 7J61bRMlyWXKvYBDrNILrMENciT hrtl1ioJ3cUy1+PGNvbCB3 dUZ4pO0vVXJsGfL8GBcgY763CrI xsGKxAtzvz5ity1gcrCf6ZxYiZB QirnQpdFauLWT6w3TwZe70 F21wQPjiJETgUVRvZZWsQOIkhKn jvu7gsR7dDy9+MW0nk8ldlv98zY 48dHI+VOKzDTZ6qYloMJin RTWnyS3fGCzzZeK9RRCkNeHyjL2 6gNSxBQfuNy8yfOlrcUlhHM4aAQ Grpenen356MgExd7fjIRAy eUTlLDqrQPB8D35fh3H3BBFmZGJ jHYC4uVB4gV0xwMdycfbhzBHgaZ ajhjBcwCaxMYkuFImtZ100 IHRvcDsnPlBhdGllbnQgTmFtZTo 4N4JgQiz4JUJlqDhjOV7tvJDgEZ ztBg2epQpbrLmiAU5hHGDd icqnu247FuCnk0hgUMObaIKrUKs uGTV8P42zp4M2NJUsPBHxZDN5xW Z2hO5uuJjixabdbWFooAgn rvBckSmcADirIYcgT814OJHepZp nCjWepvXxTEZluVN4PW49RU51bJ Oly8V8oTT2A8GpCXVekkmm cfmzhVM4HJMaSHZawB54Qg1xhNh zSo0vILWhLDC1VHEvaUBtO4GlgW 3oRmNlIPRqAMNzB0NarCYu VIqhS468QYjePsQ1KPVptjAyK3W cJNCccZbyDvS2r9X5Kc9HW7X2IW 53SJ48eKAoc6J2uJB4V0Gv JOOdgddxrafflMF6NTQtLHVwrV4 1Sq8zbVcmVs7tMPGyDDC3QRZdvW FrH9ZeuD1fVeHeHBYvICRe B4MuqCQhXXlsT685ZEtvQhM3FQJ udzTcM8EqUYXuoUksPbZ3s9J0Gh 9GDQh3AT88ME17zTQtm7L8 gNA2D8BwQJLeeunmyufncJY6DVO xGPZfrF65Fh1htAzzKn3oXPPySB J4NVEmxACkT7SvbK5aMcXz KVLdMCFgE2RloPEuVUodC589OAc eVfA9VQZvusPrV2VuPRDvyMjoGg F2l6Y2Ig2SWLBmMI64JZV3 wOY0ND95OT80U3XbRtybpCBvqAK +PHRhYmxlIHdpZHRoPScxMDAlJy JawXvyGL8vKm0wHGCrMHMh hGgevNBbDhYxp2lfAATjJZoeXF6 yfQmsD0LjiOV5EPUto0d6Rv71L3 8dA3UsrUP+EOCmxQJ8fJR0 aD7oOrRwLqO4EKikE132MaIroCK kHrbni6pnx1lweWs6FtQ9HVBblw XqcKiwCAB1e0TuYv79C17o IHdpZHRoPSIxNSUiIHZhbGlnbj0 ufD0nUm9+LKDhzDA0eAY1rJ6lLo VmAhE8YEcpC434YvZtySYf Gfpsi3axt9zlgEs1DcVpGEYxivC yeUehUKU8k9VcLh74C6WkdBnqj3 IgNmp3hs64yYPcg7Q0oJK4 H5HcQMCqjpslyUSgkNmtGG6nDXU viuslXWIrzZ2tBTDfZ1c8LrCdNy X3NTmbM4UvauD5XIOwnJRe NCsqTLU1R66ow8M1FARtYXHuUEH 4mFI7tO6mpXqmntztsSWboPwmdc KpuSibYKopAWglC043MDRy rElkWYKjcC8gNREamODuvFjiNO7 wNTBpbjsnPkhVQkVSLCBLWUxFIF MAH4b9Z0KfBgf4DQAnmSjr FM6xmOTxHBgnPd2wxGdxvTazYX2 oWLDwqxtbWMWfeM5tKVHvdZGfyJ chRZ5jEKIazzifm276JrSp KGG1MPGmeUFrP3KjaL2yJdEzLHB zNVSdB4UyvRVeEHvxF857XOgtCc S7YHKlycSkR7SwZIKyyZex IrO4t0J7Na1hPr6dIf9kNHptFD9 0RY97hPFoh6L8vTM6E9KoJZIqaq plqzejiSU8XSLdFWPfoB11 oZIlXXctWi8kk3X9r789BUTdDZO ckF34Dh2zkAmwEUNeoHAZuO3vzq xgz5enbtslCtRsOCPhZLd6 SJv0MVMqtBlbMlOcZWI6KwL5VIM 4fWKbyF3fwXozscmntB6hLiy+Mz VgRIVvniM3Q0PpNtv9DRMu vJucQA6isLJlDCjiYk1yrQvsjBh aIT5bFPZlmkdmFFTwyM5gIFScvU VqxFgsKU2xNCZkvgtxt223 XhVwDYT5UUQvfIRiP4DizP1yBaU sGIRmTTIsH5JceTYnUDkdA711LP utTdN3EUXmyyHwJ7VeQJLv sBioPuG3q3X7Sb1MRMdOVM04UE1 3lZHzg3I7sCV1F2LhOPHoukqffx eqsRR4TLSbEHFopO30yBQf ASwzKg3tr9M8b285MZNwAONkmB9 0Mi8eoPboRYXmnPYYeS2gjezja1 tikjwlQzMkRDRcWTm7NZj0 GPUnwUauUoSuATZ7AkJ7PCA0uTN fiJ7ezFkazjcznQ3pUct+RW1lcm rgzzP6ZM24PZ95G4RuVjva dGFibGU+PHRhYmxlIHdpZHRoPSc fCIJvVkKndImyVM6aQz5gEGQmUK VwdBcwjSXvUaQrv8evEOPa JTeqOY7gwIxjI4XkrQC9UABgr9m 3Fd31V54nA9RgaHQ+EQIenZG7aJ D9bC8kQkPnGpN2KHctJ820 HtNbjURwMepyv4ajm1wqqUb7BpT vVSRwusDkrKvmTVJ8d7HcGn63S0 9sIHdpZHRoPSIyMCUiIHZh lZtmsr6beF7iQk6+UYTpoZG8xZR 5zN6pVxWvXcZ5GKeqZ633TeRkwB ReKpayG65mK0DobLN+PHRy Czk6JIDcwNxdJL4eoMDoAFdzMq7 eQMT2JqDnQjCjZPgaE2MpHSGmju gzwfpozOY4IHXdJAFmsA36 Qa7nyWvdKy4wIJWsVSV3SCOqlJB mA6DwiC9gBmXzSMZhGWPkP5TkqP BpJObrI870BSprZoF5SYYk zxYaP0HoRPVdtLbiUjU6q4Q3Pm3 ZjUlsfNRsUI7eUsGrCKv5X8QfAf s8JQGsxOmeLE9cmIKzFJpk Gx9fgSkboWrkDF3xVIRbaedbr21 2FvKsf0dkRYOamCJyNKfaMUR5A1 9to0U8NCBdIPStPNA9zPB8 nX3ixZeghaezrDYuiSwruwNqdFy uXQqlUQtmZ435WOXroEstKiQFTt q4I8AaLwd4XYNfvJpcCG7g aWPwBBzfDh0blGcdgZodCB0zABD xhcrxn924PvYwb4ekNBEpqKEuIV eaIGD0V58qh5B2FEMtVAMv FSD0mQV2oS0naZdmxogmtDKqjRl telDclNijTTryWGedH100ZXVixM djAf2YIwh8C9CxLvu7BIPy rUhmZK0lxXXpTMycQr8zzQfhoGy eYE5vKBQcmxwek968YcRku3yaBH OfaBUeUTynHDA5O73qj3Q9 BMTgWRQrMBY2mIO6wK0dyZhfdzg gbGVmdDsgdmVydGljYWwtYWxpZ2 46IHRvcDsnPlBheWVyOjwv dGQ+OU62ml54Y4WaDqisHur9HNK yVVK0oZT6rL3zYXThMSxov9J0oJ B0A6HaeyWbwh7fo1wgYMGa ZTo (more content not included)... Normal [facility] ED Clinical Summaryon 2021 ED Clinical Summary [facility] - Emergency Department [address] [place], [place] [id number] ED Clinical Summary PERSON INFORMATION Name: ANGELITA MOMIN Age: 31 Years Sex: MALE : 1990 MRN: Acct#: Visit Reason: Hand pain-swelling; RT HAND PAIN/SWOLLEN/INJURY Arrival: 04/19/2022 09:57:26 Discharge: 04/19/2022 11:35:00 LOS: 000 01:38 Check In: 04/19/2022 09:57:26 Checkout:04/19/2022 11:35:00 Address: [address] [place] [address] PCP: Bob LEWIS, Chetan Young PROVIDER INFORMATION Provider Role Assigned Unassigned Ag REINOSO, Rosa SANTIAGO PA 04/19/2022 10:02:36 Melissa RN, Mary Will ED Nurse 04/19/2022 10:22:44 VITALS INFORMATION Vital Sign Triage Latest Temperature Tympanic Temperature Temporal Artery Pulse Rate 87 bpm 87 bpm O2 Sat 99 % 99 % Respiratory Rate 17 br/min 17 br/min Blood Pressure /84 mmHg /84 mmHg MEDICAL INFORMATION Medications Given: Allergy Information: No Known Medication Allergies PHYSICIAN DOCUMENTATION DISCHARGE INFORMATION: Discharge Disposition: Home Discharge Location: Home PATIENT EDUCATION INFORMATION Instructions: Metacarpal Fracture; Boxer's Fracture; Cast or Splint Care, Adult, Bowo-ls-Hcgu Follow-Up: With: Address: When: Cruz Tesfaye MD [address] [place] [address] Within 1 to 2 days Comments: Call for follow up appointment DIAGNOSIS: 1:Fracture of metacarpal of right hand, closed Patient Understands: Yes - Patient/family/caregiver verbalizes understanding of instructions given Comment: Normal [facility] ED Patient Summaryon 022 ED Patient Summary [facility] - Emergency Department [address] [place], [place] [id number] PATIENT DISCHARGE INSTRUCTIONS Patient Information Name: ANGELITA MOMIN Age: 31 Years Date of : 1990 Reason For Visit: Hand pain-swelling; RT HAND PAIN/SWOLLEN/INJURY Arrival Time: 04/19/2022 09:57:26 Primary Care Physician: Bob LEWIS, Chetan Young Attending Physician: Thanh Weaver MD Comment: Visit Diagnosis: Diagnoses This Visit Fracture of metacarpal of right hand, closed (S62.309A) Hand pain-swelling ([id number]) Prescription Information: If you have been given a prescription for narcotics, seek immediate medical attention if you have any difficulty breathing or any sudden status changes such as confusion and sleepiness. If you or anyone you know is experiencing suicidal thoughts, mental health, alcohol and/or drug addiction problems; contact the [facility] 23/06 Crisis Hotline -text 4hope to 741741. If you received any narcotics, sedation, or any other medication that causes drowsiness for the next 24 hours, unless otherwise directed: ? Do not drive a car. ? Do not operate machinery such as power tools, lawn mowers, drills, sewing machines, or stoves ? Avoid alcoholic beverages and drugs for allergies, nerves, or sleep ? Do not make important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 07-19-2024 07:53-0400 Respiratory rate 18 /min Charleen Silver MD Work Phone: [facility] 07-19-2024 07:53-0400 Systolic blood pressure 147 mm[Hg] Charleen Silver MD Work Phone: [facility] 06-29-2024 11:43-0400 Body height 189.2 cm Pacc 3 Work Phone: [facility] 06-29-2024 11:43-0400 Body mass index (BMI) [Ratio] 36.14 kg/m2 Pacc 3 Work Phone: [facility] 06-29-2024 11:43-0400 Body temperature 98.01 [degF] Pacc 3 Work Phone: [facility] 06-29-2024 11:43-0400 Body weight 129.4 kg Pacc 3 Work Phone: [facility] 06-29-2024 11:43-0400 Diastolic blood pressure 84 mm[Hg] Pacc 3 Work Phone: [facility] Comment on above: MAP: 97 06-29-2024 11:43-0400 Heart rate 96 /min Pacc 3 Work Phone: [facility] 06-29-2024 11:43-0400 Respiratory rate 17 /min Pacc 3 Work Phone: [facility] 06-29-2024 11:43-0400 SaO2% (BldA) [Mass fraction] 97 % Pacc 3 Work Phone: [facility] 06-29-2024 11:43-0400 Systolic blood pressure 124 mm[Hg] Pacc 3 Work Phone: [facility] Comment on above: MAP: 97 05-28-2024 08:44-0400 Body height 188 cm Jayleen Becker MD Work Phone: [facility] 05-28-2024 08:44-0400 Body mass index (BMI) [Ratio] 36.59 kg/m2 Jayleen Becker MD Work Phone: [facility] 05-28-2024 08:44-0400 Body temperature 98.4 [degF] Jayleen Becker MD Work Phone: [facility] 05-28-2024 08:44-0400 Body weight 129.28 kg Jayleen Becker MD Work Phone: [facility] 05-28-2024 08:44-0400 Diastolic blood pressure 91 mm[Hg] Jayleen Becker MD Work Phone: [facility] 05-28-2024 08:44-0400 Heart rate 89 /min Jayleen Becker MD Work Phone: [facility] 05-28-2024 08:44-0400 Systolic blood pressure 138 mm[Hg] Jayleen Becker MD Work Phone: [facility] 05-21-2024 14:24-0400 Diastolic blood pressure 100 mm[Hg] [facility] [facility] [place] 05-21-2024 14:24-0400 Heart rate 70 /min Ct [facility] [place] 05-21-2024 14:24-0400 Respiratory rate 16 /min Ct [facility] 05-21-2024 14:24-0400 SaO2% (BldA) [Mass fraction] 100 % Ct [facility] [place] 05-21-2024 14:24-0400 Systolic blood pressure 152 mm[Hg] Ct [facility] [place] 05-14-2024 11:20-0400 Body height 185.4 cm Reyna Anton MANAGER WIND[employer] SALESPERSON Work Phone: [facility] 05-14-2024 11:20-0400 Body mass index (BMI) [Ratio] 36.85 kg/m2 Reyna Anton MANAGER W[employer] SALESPERSON Work Phone: [facility] 05-14-2024 11:20-0400 Body temperature 97.81 [degF] Reyna Anton MANAGER W[employer] SALESPERSON Work Phone: [facility] 05-14-2024 11:20-0400 Body weight 126.7 kg Reyna Anton MANAGER W[employer] SALESPERSON Work Phone: [facility] 05-14-2024 11:20-0400 Diastolic blood pressure 84 mm[Hg] Reyna Anton MANAGER W[employer] SALESPERSON Work Phone: [facility] 06-14-2024 11:20-0400 Heart rate 74 /min Reyna Anton MANAGER W[employer] SALESPERSON Work Phone: [facility] 05-14-2024 11:20-0400 SaO2% (BldA) [Mass fraction] 97 % Reyna Anton MANAGER W[employer] SALESPERSON Work Phone: [facility] 05-14-2024 11:20-0400 Systolic blood pressure 130 mm[Hg] Reyna Anton MANAGER W[employer] SALESPERSON Work Phone: [facility] 09-17-2023 09:35-0400 Body height 189.2 cm Reyna Anton MANAGER W[employer] SALESPERSON Work Phone: [facility] 09-17-2023 09:35-0400 Body temperature 97.7 [degF] Reyna Anton MANAGER W[employer] SALESPERSON Work Phone: [facility] 09-17-2023 09:35-0400 Body weight 112.04 kg Reyna Anton MANAGER W[employer] SALESPERSON Work Phone: [facility] 09-17-2023 09:35-0400 Diastolic blood pressure 84 mm[Hg] Reyna Anton MANAGER W[employer] SALESPERSON Work Phone: [facility] 09-17-2023 09:35-0400 Heart rate 79 /min Reyna Anton MANAGER W[employer] SALESPERSON Work Phone: [facility] 09-17-2023 09:35-0400 SaO2% (BldA) [Mass fraction] 96 % Reyna Anton MANAGER W[employer] SALESPERSON Work Phone: [facility] 09-17-2023 09:35-0400 Systolic blood pressure 136 mm[Hg] Reyna Erich MANAGER W[employer] SALESPERSON Work Phone: [facility] 09-12-2023 10:02-0400 Body weight 111.13 kg Piter Matzke DO Work Phone: [facility] 09-12-2023 10:02-0400 Diastolic blood pressure 82 mm[Hg] Piter Matzke DO Work Phone: [facility] 09-12-2023 10:02-0400 Heart rate 87 /min Piter Matzke DO Work Phone: [facility] 09-12-2023 10:02-0400 Systolic blood pressure 150 mm[Hg] Piter Ehsanzke DO Work Phone: [facility] 11-11-2022 11:58-0500 Body height 187.96 cm MD Chetan Rojas ([facility]) Work Phone: [facility] 11-11-2022 11:58-0500 Body temperature 98.4 [degF] MD Chetan Rojas ([facility]) Work Phone: [facility] 11-11-2022 11:58-0500 Body weight 101.05 kg MD Chetan Rojas ([facility]) Work Phone: [facility] 11-11-2022 11:58-0500 Diastolic blood pressure 70 mm[Hg] MD Chetan Rojas ([facility]) Work Phone: [facility] 11-11-2022 11:58-0500 Heart rate 100 /min MD Chetan Rojas ([facility]) Work Phone: [facility] 11-11-2022 11:58-0500 Respiratory rate 14 /min MD Chetan Rojas ([facility]) Work Phone: [facility] 11-11-2022 11:58-0500 SaO2% (BldA) [Mass fraction] 96 % MD Chetan Rojas ([facility]) Work Phone: [facility] 11-11-2022 11:58-0500 Systolic blood pressure 139 mm[Hg] MD Chetan Rojas ([facility]) Work Phone: [facility] 01-10-2022 12:00-0500 Body height 186.69 cm Cruz Tesfaye Other [employer] Other 01-10-2022 12:00-0500 Body mass index (BMI) [Ratio] 26.16 kg/m2 Cruz Olexa Other [employer] Other 01-10-2022 12:00-0500 Body weight 91.17 kg Cruz Olexa Other [employer] Other 09-13-2021 12:15-0400 Body height 186.69 cm Cruz Olexa Other [employer] Other 09-13-2021 12:15-0400 Body mass index (BMI) [Ratio] 25.9 kg/m2 Cruz Olexa Other [employer] Other 09-13-2021 12:15-0400 Body weight 90.27 kg Cruz Olexa Other [employer] Other 2018 14:41-0400 BMI (Body Mass Index) 24.78 kg/m2 [facility] 2018 14:41-0400 Body Temperature 97.3 [degF] [facility] 2018 14:41-0400 BP Diastolic 82 mm[Hg] [facility] 2018 14:41-0400 BP Systolic 138 mm[Hg] [facility] 2018 14:41-0400 Height 188 cm [facility] 2018 14:41-0400 Pulse (Heart Rate) 99 /min [facility] 2018 14:41-0400 Pulse Oximetry 98 % [facility] 2018 14:41-0400 Respiratory Rate 16 /min [facility] 2018 14:41-0400 Weight 87.54 kg [facility] 11-21-2017 08:23-0500 BP Diastolic 92 mm[Hg] Paulo Rodriguez [facility] Work Phone: 11-21-2017 08:23-0500 BP Systolic 134 mm[Hg] Paulo Rodriguez [facility] Work Phone: 11-21-2017 08:23-0500 Pulse (Heart Rate) 99 /min Paulo Rodirguez [facility] Work Phone: 11-21-2017 08:23-0500 Pulse Oximetry 99 % Paulo Rodriguez [facility] Work Phone: 11-21-2017 08:23-0500 Respiratory Rate 16 /min Paulo Rodriguez [facility] Work Phone: 11-21-2017 06:18-0500 BMI (Body Mass Index) 21.83 kg/m2 Paulo Rodriguez [facility] Work Phone: 11-21-2017 06:18-0500 Body Temperature 97.5 [degF] Paulo Rodriguez [facility] Work Phone: 11-21-2017 06:18-0500 Height 188 cm Paulo Rodriguez [facility] Work Phone: 11-21-2017 06:18-0500 Weight 77.11 kg Paulo Rodriguez [facility] Work Phone: Encounters Encounter Date Encounter Type Care Provider Facility Start: 07-19-2024 End: 07-19-2024 ambulatory ADOLFO BALLARD Facility:[facility] Start: 07-19-2024 End: 07-19-2024 Patient encounter procedure Charleen Silver MD Work Phone: Pain Management Comment on above: Benzodiazepine depen dence (HCC) (Primary Dx); Anxiety; Opioid dependence with withdrawal (HCC); Generalized abdominal pain Incisional hernia, w ithout obstruction or gangrene (Primary Dx); Post-operative pain Start: 07-19-2024 End: 07-19-2024 ambulatory CHARLEEN SILVER Facility:[facility] Start: 07-15-2024 Refill Adolfo Galvan Work Phone: General Surgery Start: 07-12-2024 Telephone encounter Adolfo hines MD Work Phone: General Surgery Start: 07-11-2024 ambulatory Katherine ETIENNE FEED GRINDER Comment on above: Blood In Urine Encounter for medica l assessment (Primary Dx) Start: 07-11-2024 Patient encounter status Antoni Kong MD Work Phone: [facility] Work Phone: Start: 07-11-2024 Telemedicine consultation with patient Antoni Kong MD Work Phone: [facility] Start: 06-30-2024 End: 07-08-2024 Evaluation and management of inpatient ADOLFO BALLARD Facility:[facility] Start: 06-29-2024 End: 06-29-2024 [place]mission to [place] [address] Work Phone: Pre Anesthesia Start: 06-29-2024 End: 06-29-2024 ambulatory RENEE SHELBIE Facility:[facility] Start: 06-29-2024 End: 06-29-2024 Anesthesia consultation [facility] 3 Work Phone: Pre Anesthesia Comment on above: Pre-op evaluation (P rimary Dx); Preoperative examination; Ventral hernia without obstruction or gangrene; Gastroesophageal reflux disease without esophagitis; Opioid dependence in remission (HCC); Obesity, Class II, BMI 35-39.9; S/P colectomy; Chronic hepatitis C without hepatic coma (HCC); Nicotine abuse; ETOH abuse Start: 06-29-2024 Encounter for other preprocedural examination PITER MENESES [facility] Start: 06-29-2024 End: 06-29-2024 Preprocedural examination done [facility] 3 Work Phone: [facility] Work Phone: Start: 06-08-2024 End: 06-08-2024 ambulatory Rusty Jasmine MD Work Phone: Gastroenterology Comment on above: Crohn's disease of s mall and large intestines with complication (HCC) (Primary Dx) Start: 06-08-2024 End: 06-08-2024 Telemedicine consultation with patient Rusty Jasmine MD Work Phone: Gastroenterology Start: 05-31-2024 ambulatory Adolfo Galvan Work Phone: [facility] Comment on above: 06.30.24 Cure (Open VHR 3 hours los 2) Start: 05-31-2024 Preprocedural examination done Adolfo Ballard MD Work Phone: [facility] Start: 05-28-2024 End: 05-28-2024 Patient encounter procedure Adolfo Ballard MD Work Phone: General Surgery Comment on above: Incisional hernia, w ithout obstruction or gangrene (Primary Dx); Obesity, Class II, BMI 35-39.9 Start: 05-28-2024 End: 05-28-2024 [facility] Facility[facility] Start: 05-28-2024 End: 05-28-2024 ambulatory ESPERANZA ROSITA Facility:[facility] Start: 05-28-2024 End: 05-28-2024 Patient encounter procedure Jayleen Becker MD Work Phone: General Surgery Comment on above: Hernia Start: 05-21-2024 End: 05-21-2024 [facility] Start: 05-21-2024 End: 05-21-2024 Subsequent hospital visit by physician [facility] Radiology Ct Scan Comment on above: Crohn's disease of s mall and large intestines with complication (HCC) [K50.819] Post-operative pain (Primary Dx) Start: 05-21-2024 End: 05-21-2024 [facility] Start: 05-14-2024 End: 05-14-2024 Patient encounter procedure Rusty Jasmine MD Work Phone: Gastroenterology Comment on above: Crohn's disease of s mall and large intestines with complication (HCC) (Primary Dx) Fatty liver (Primary Dx); Elevated liver enzymes; Hernia Start: 05-14-2024 End: 05-14-2024 [facility] Facility[facility] Start: 05-10-2024 Telephone encounter Rusty pickard MD Work Phone: Gastroenterology Comment on above: Orders; Care Coordin ator - Other Start: 01-22-2024 End: 01-22-2024 Emergency department patient visit Chetan Rojas ([facility]) Facility:[facility] Start: 01-22-2024 End: 01-22-2024 Emergency department patient visit MD Chetan Rojas ([facility]) Work Phone: [facility] Work Phone: Start: 09-29-2023 End: 09-29-2023 ambulatory Rusty Jasmine MD Work Phone: Gastroenterology Comment on above: Crohn's disease of s mall and large intestines with complication (HCC) (Primary Dx) Start: 09-29-2023 End: 09-29-2023 Telemedicine consultation with patient Rusty Jasmine MD Work Phone: [facility] Start: 09-17-2023 End: 09-17-2023 ambulatory WIL GOETZ Gastroenterology Start: 09-17-2023 End: 09-17-2023 Patient encounter procedure Hepatology Procedures A5 Work Phone: [facility] Comment on above: Elevated liver enzym es (Primary Dx); Chronic hepatitis C without hepatic coma (HCC); Crohn's disease of small intestine with other complication (HCC) Start: 09-15-2023 Telephone encounter Piter negrete DO Work Phone: Internal Medicine Start: 09-12-2023 End: 09-13-2023 ambulatory [facility] Start: 09-12-2023 End: 09-12-2023 Office outpatient new 20 minutes Piter Meneses DO Work Phone: Internal Medicine Comment on above: Crohn's disease of s mall intestine with other complication (HCC) (Primary Dx); Chronic hepatitis C without hepatic coma (HCC) Start: 11-11-2022 End: 11-11-2022 Emergency department patient visit MD Chetan Rojas ([facility]) Work Phone: [facility] Start: 11-01-2022 End: 11-01-[address] DOCTOR MONET Facility:[facility] Start: 07-23-2022 End: 07-23-[address] DOCTOR MONET Facility:[facility] Start: 05-15-2022 End: 05-15-[address] DOCTOR MONET Facility:[facility] Start: 04-30-2022 Orders Only Fernie Hollingsworth DO Work Phone: Orthopaedics Comment on above: Hand injury, right, initial encounter (Primary Dx) Start: 02-07-2022 End: 02-07-2022 ambulatory Cruz Olexa Other [employer] Other Start: 02-07-2022 Postop follow up vis it related to original px Cruz Olexa [facility] Start: 01-10-2022 End: 01-10-2022 ambulatory Cruz Olexa Other [employer] Other Start: 01-10-2022 Postop follow up vis it related to original px Cruz Olexa [facility] Start: 12-31-2021 End: 12-31-2021 ambulatory Cruz Olexa Other [employer] Other Start: 12-31-2021 Telephone encounter Cruz Olexa [facility] Start: 12-18-2021 End: 12-18-2021 ambulatory Cruz Olexa Other [employer] Other Start: 12-18-2021 Telephone encounter Cruz Olexa [facility] Start: 12-12-2021 End: 12-12-[address] DOCTOR MONET Facility:[facility] Start: 09-13-2021 Office outpatient ne w 45 minutes Cruz Olexa [facility] Start: 05-17-2018 End: 05-17-2018 Emergency department patient visit EMERGENCY PHYSICIAN Facility:[facility] Start: 2018 End: 2018 Patient encounter procedure [facility]IC[facility] Start: 2018 End: 2018 Office/outpatient visit, new, level 3 Adolfo Puente Work Phone: [facility] [place] Start: 11-21-2017 End: 11-21-2017 Emergency department patient visit PAULO RODRIGUEZ [facility] Start: 11-21-2017 End: 11-21-2017 Emergency department patient visit Paulo Rodriguez Work Phone: [facility] Emergency Department Procedures Date Procedure Procedure Detail Performing Clinician Start: 06-29-2024 Antibody screen PITER MENESES Comment on above: Order Comment: Speci men Type: BLOOD SPECIMENOrdering Facility: [facility] Address: [address] [place] [address] Performed By: #### T [id number] ####CC MAIN BLOOD BANKCLIA [id number] [place] [address] [place] Start: 06-29-2024 Ecg routine ecg w/le ast 12 lds i&r only [facility] Provider Start: 05-21-2024 Ct abdomen & pelvis w/contrast material Rusty Jasmine MD Work Phone: Start: 09-17-2023 Liver elastography w /o imag w/i&r Reyna Anton MANAGER [employer] SALESPERSON Work Phone: Start: 09-17-2023 Liver elastography w /o imag w/i&r Reyna Anton MANAGER [employer] SALESPERSON Work Phone: Start: 03-21-2010 H/O: ileostomy S/P ileostomy Fernie Hollingsworth DO Work Phone: SARS-CoV-2, Influenz a & RSV (PCR) MD Chetan Rojas ([facility]) Work Phone: Plan of Treatment Date Care Activity Detail Author Start: 2051 Hepatitis B Vaccine (1 of 3 - Risk 3-dose series) Hepatitis B Vaccine (1 of 3 - Risk 3-dose series) [facility] Start: 11-15-2024 End: 11-15-2024 Patient encounter procedure 11/15/2024 9:00 AM EST Office Visit Gastroenterology [address] [place] [address] Reyna Anton APRN.FURS SALESPERSON [address] [place] [address] [place] [address] Chronic Hep C Gastroenterology Comment on above: Chronic Hep C Start: 11-15-2024 End: 11-15-2024 ambulatory 11/15/2024 8:40 AM EST Procedure Gastroenterology [address] [address] Elevated liver enzymes [R74.8] Gastroenterology Comment on above: Elevated liver enzymes [R74.8] Start: 08-01-2024 Influenza vaccination [facility] Start: 07-19-2024 End: 07-19-2024 Patient encounter procedure 07/19/2024 8:00 AM EDT Office Visit Pain Management [facility] [place] [address] Charleen Silver MD [address] [place], [place] [id number] abd pain Pain Management Comment on above: abd pain Start: 06-30-2024 End: 06-30-2024 Admission to same day surgery center 06/30/2024 11:45 AM EDT - 06/30/2024 2:15 PM EDT Surgery Admitting [address] [place] [address] Adolfo Ballard MD [address] [place] [address] IMPLANT MESH/PROSTHESIS VENTRAL HERNIA REPAIR GREATER THAN 10cm Admitting Comment on above: IMPLANT MESH/PROSTHESIS VENTRAL HERNIA R EPAIR GREATER THAN 10cm Start: 06-30-2024 End: 06-30-2024 IMPLANT MESH/PROSTHESIS VENTRAL HERNIA REPAIR GREATER THAN 10cm IMPLANT MESH/PROSTHESIS VENTRAL HERNIA REPAIR GREATER THAN 10cm Preoperative examination Ventral hernia without obstruction or gangrene 06/30/2024 11:45 AM EDT [facility] Start: 06-30-2024 End: 06-30-2024 Admission to same day surgery center 06/30/2024 10:12 AM EDT - 06/30/2024 12:42 PM EDT Surgery Admitting [address] [place] [address] Adolfo Ballard MD [address] [place] [address] IMPLANT MESH/PROSTHESIS VENTRAL HERNIA REPAIR GREATER THAN 10cm Admitting Comment on above: IMPLANT MESH/PROSTHESIS VENTRAL HERNIA R EPAIR GREATER THAN 10cm Start: 06-30-2024 End: 06-30-2024 Anesthesia consultation 06/30/2024 10:12 AM EDT Anesthesia Event Admitting [address] [place] [address] Bing Cali MD [address] [place] [address] Admitting Start: 06-30-2024 End: 06-30-2024 IMPLANT MESH/PROSTHESIS VENTRAL HERNIA REPAIR GREATER THAN 10cm IMPLANT MESH/PROSTHESIS VENTRAL HERNIA REPAIR GREATER THAN 10cm Preoperative examination Ventral hernia without obstruction or gangrene 06/30/2024 10:12 AM EDT [facility] Start: 06-30-2024 Subsequent hospital visit by physician Admitting Comment on above: Preoperative examination [Z01.818] Start: 06-29-2024 End: 09-28-2024 TYPE AND SCREEN,30 DAY [facility] [place] Work Phone: Comment on above: Expected: 06/29/2024, Expires: Start: 06-29-2024 End: 06-29-2024 Anesthesia consultation 06/29/2024 12:30 PM EDT PAT Pre Anesthesia [address] [place] [address] PACC, EKG, Labs, Admit Interview Pre Anesthesia Comment on above: PACC, EKG, Labs, Admit Interview Start: 06-08-2024 End: 06-08-2024 ambulatory 06/08/2024 10:00 AM EDT [facility] Gastroenterology [address] [address] Rusty Jasmine MD [address] [place] [address] review results Gastroenterology Comment on above: review results Start: 06-07-2024 End: 08-01-2024 aPTT in Platelet poor plasma by Coagulation assay ACTIVATED PARTIAL THROMBOPLASTIN TIME Lab Routine Preoperative examination Ventral hernia without obstruction or gangrene Expected: 06/07/2024, Expires: 08/01/2024 [facility] Comment on above: Expected: 06/07/2024, Expires: Start: 06-07-2024 End: 08-01-2024 CBC W Auto Differential panel - Blood COMPLETE BLOOD COUNT AND DIFFERENTIAL Lab Routine Preoperative examination Ventral hernia without obstruction or gangrene Expected: 06/07/2024, Expires: 08/01/2024 [facility] Comment on above: Expected: 06/07/2024, Expires: Start: 06-07-2024 End: 08-01-2024 Comprehensive metabolic 2000 panel - Serum or Plasma COMPREHENSIVE METABOLIC PANEL Lab Routine Preoperative examination Ventral hernia without obstruction or gangrene Expected: 06/07/2024, Expires: 08/01/2024 [facility] Comment on above: Expected: 06/07/2024, Expires: Start: 06-07-2024 End: 08-01-2024 CONFIRM BLOOD TYPE CONFIRM BLOOD TYPE Blood Bank Routine Preoperative examination Ventral hernia without obstruction or gangrene Expected: 06/07/2024, Expires: 08/01/2024 [facility] Comment on above: Expected: 06/07/2024, Expires: Start: 06-07-2024 End: 08-01-2024 PT panel - Platelet poor plasma by Coagulation assay PROTHROMBIN TIME Lab Routine Preoperative examination Ventral hernia without obstruction or gangrene Expected: 06/07/2024, Expires: 08/01/2024 [facility] Comment on above: Expected: 06/07/2024, Expires: Start: 05-21-2024 End: 05-21-2024 Patient encounter procedure Radiology Ct Scan Comment on above: CT ENTEROGRAPHY W IVCON Start: 05-14-2024 End: 08-13-2024 Alpha 1 antitrypsin [Mass/volume] in Serum or Plasma [id number] Lab Routine Elevated liver enzymes Fatty liver Expected: 05/14/2024, Expires: 08/13/2024 [facility] Comment on above: Expected: 05/14/2024, Expires: Start: 05-14-2024 End: 08-13-2024 C reactive protein [Mass/volume] in Serum or Plasma C-REACTIVE PROTEIN Lab Routine Crohn's disease of small and large intestines with complication (HCC) Expected: 05/14/2024, Expires: 08/13/2024 [facility] Comment on above: Expected: 05/14/2024, Expires: Start: 05-14-2024 End: 08-13-2024 CBC panel - Blood by Automated count COMPLETE BLOOD COUNT Lab Routine Crohn's disease of small and large intestines with complication (HCC) Expected: 05/14/2024, Expires: 08/13/2024 [facility] [place] Work Phone: Comment on above: Expected: 05/14/2024, Expires: Start: 05-14-2024 End: 08-13-2024 Ceruloplasmin [Mass/volume] in Serum or Plasma CERULOPLASMIN Lab Routine Elevated liver enzymes Fatty liver Expected: 05/14/2024, Expires: 08/13/2024 [facility] Comment on above: Expected: 05/14/2024, Expires: Start: 05-14-2024 End: 08-13-2024 Chronic hepatitis differentiation between hepatitis B and C virus panel - Serum or Plasma HEP REMOTE PANEL BL Lab Routine Crohn's disease of small and large intestines with complication (HCC) Expected: 05/14/2024, Expires: 08/13/2024 [facility] Comment on above: Expected: 05/14/2024, Expires: 4 Start: 05-14-2024 End: 08-13-2024 Comprehensive metabolic 2000 panel - Serum or Plasma COMPREHENSIVE METABOLIC PANEL Lab Routine Crohn's disease of small and large intestines with complication (HCC) Expected: 05/14/2024, Expires: 08/13/2024 [facility] Comment on above: Expected: 05/14/2024, Expires: Start: 05-14-2024 End: 08-13-2024 CREATININE BLD CREATININE BLD Lab Routine Crohn's disease of small and large intestines with complication (HCC) Expected: 05/14/2024, Expires: 08/13/2024 [facility] Comment on above: Expected: 05/14/2024, Expires: Start: 05-14-2024 End: 08-13-2024 HEP BE ANTIBODY HEP BE ANTIBODY Lab Routine Elevated liver enzymes Fatty liver Expected: 05/14/2024, Expires: 08/13/2024 [facility] Comment on above: Expected: 05/14/2024, Expires: Start: 05-14-2024 End: 08-13-2024 HEP BE ANTIGEN HEP BE ANTIGEN Lab Routine Elevated liver enzymes Fatty liver Expected: 05/14/2024, Expires: 08/13/2024 [facility] Comment on above: Expected: 05/14/2024, Expires: Start: 05-14-2024 End: 08-13-2024 Hepatitis B virus DNA [Units/volume] in Serum HEPATITIS B VIRUS DNA QUANTIFICATION, PLASMA/SERUM Lab Routine Elevated liver enzymes Fatty liver Expected: 05/14/2024, Expires: 08/13/2024 [facility] Comment on above: Expected: 05/14/2024, Expires: Start: 05-14-2024 End: 08-13-2024 Liver kidney microsomal Ab [Titer] in Serum by Immunofluorescence LKM AB Lab Routine Elevated liver enzymes Fatty liver Expected: 05/14/2024, Expires: 08/13/2024 [facility] Comment on above: Expected: 05/14/2024, Expires: 4 Start: 05-14-2024 End: 08-13-2024 Mitochondria Ab [Presence] in Serum by Immunofluorescence MITOCHONDRIAL M2 IGG SERUM Lab Routine Elevated liver enzymes Fatty liver Expected: 05/14/2024, Expires: 08/13/2024 [facility] Comment on above: Expected: 05/14/2024, Expires: Start: 05-14-2024 End: 08-13-2024 Nuclear Ab [Presence] in Serum by Immunoassay MONA BLOOD Lab Routine Elevated liver enzymes Fatty liver Expected: 05/14/2024, Expires: 08/13/2024 [facility] Work Phone: Comment on above: Expected: 05/14/2024, Expires: Start: 05-14-2024 End: 08-13-2024 PT panel - Platelet poor plasma by Coagulation assay PROTHROMBIN TIME Lab Routine Elevated liver enzymes Fatty liver Expected: 05/14/2024, Expires: 08/13/2024 [facility] Comment on above: Expected: 05/14/2024, Expires: Start: 05-14-2024 End: 08-13-2024 Smooth muscle Ab [Presence] in Serum SMOOTH MUSCLE AB SCR Lab Routine Elevated liver enzymes Fatty liver Expected: 05/14/2024, Expires: 08/13/2024 [facility] Comment on above: Expected: 05/14/2024, Expires: Start: 12-01-2023 Behavioral Health Screening Behavioral Health Screening [facility] Start: 10-18-2023 End: 01-17-2024 Hepatic function 2000 panel - Serum or Plasma HEPATIC FUNCTION PNL Lab Routine Chronic hepatitis C without hepatic coma (HCC) Elevated liver enzymes Expected: 10/18/2023, Expires: 01/17/2024 [facility] [facility] [place] Work Phone: Comment on above: Expected: 10/18/2023, Expires: 4 Start: 09-17-2023 End: 12-17-2023 Alpha 1 antitrypsin [Mass/volume] in Serum or Plasma [id number] Lab Routine Chronic hepatitis C without hepatic coma (HCC) Elevated liver enzymes Expected: 09/17/2023, Expires: 12/17/2023 [facility] [place] Work Phone: Comment on above: Expected: 09/17/2023, Expires: 4 Start: 09-17-2023 End: 12-17-2023 Ceruloplasmin [Mass/volume] in Serum or Plasma CERULOPLASMIN BLD Lab Routine Chronic hepatitis C without hepatic coma (HCC) Elevated liver enzymes Expected: 09/17/2023, Expires: 12/17/2023 [facility] [place] Work Phone: Comment on above: Expected: 09/17/2023, Expires: 4 Start: 09-17-2023 End: 12-17-2023 Ferritin [Mass/volume] in Serum or Plasma FERRITIN BLD Lab Routine Chronic hepatitis C without hepatic coma (HCC) Elevated liver enzymes Expected: 09/17/2023, Expires: 12/17/2023 [facility] [place] Work Phone: Comment on above: Expected: 09/17/2023, Expires: 4 Start: 09-17-2023 End: 12-17-2023 Gamma glutamyl transferase [Enzymatic activity/volume] in Serum or Plasma GGT BLD Lab Routine Elevated liver enzymes Expected: 09/17/2023, Expires: 12/17/2023 [facility] [place] Work Phone: Comment on above: Expected: 09/17/2023, Expires: Start: 09-17-2023 End: 12-17-2023 Hemoglobin A1c in Blood HGB A1C Lab Routine Chronic hepatitis C without hepatic coma (HCC) Elevated liver enzymes Expected: 09/17/2023, Expires: 12/17/2023 [facility] [place] Work Phone: Comment on above: Expected: 09/17/2023, Expires: 4 Start: 09-17-2023 End: 12-17-2023 HEPATITIS A ANTIBODY, IGG HEPATITIS A ANTIBODY, IGG Lab Routine Chronic hepatitis C without hepatic coma (HCC) Elevated liver enzymes Expected: 09/17/2023, Expires: 12/17/2023 [facility] [place] Work Phone: Comment on above: Expected: 09/17/2023, Expires: 4 Start: 09-17-2023 End: 12-17-2023 Hepatitis B virus core Ab [Presence] in Serum HEP B CORE AB TOTAL Lab Routine Chronic hepatitis C without hepatic coma (HCC) Elevated liver enzymes Expected: 09/17/2023, Expires: 12/17/2023 [facility] [place] Work Phone: Comment on above: Expected: 09/17/2023, Expires: 4 Start: 09-17-2023 End: 12-17-2023 Hepatitis B virus surface Ab [Presence] in Serum HEP B SURF AB Lab Routine Chronic hepatitis C without hepatic coma (HCC) Elevated liver enzymes Expected: 09/17/2023, Expires: 12/17/2023 [facility] [place] Work Phone: Comment on above: Expected: 09/17/2023, Expires: 4 Start: 09-17-2023 End: 12-17-2023 HFE gene targeted mutation analysis in Blood or Tissue by Molecular genetics method HFE (HEMOCHROMATOSIS) Lab Routine Chronic hepatitis C without hepatic coma (HCC) Elevated liver enzymes Expected: 09/17/2023, Expires: 12/17/2023 [facility] [place] Work Phone: Comment on above: Expected: 09/17/2023, Expires: 4 Start: 09-17-2023 End: 12-17-2023 IgG [Mass/volume] in Serum or Plasma IGG Lab Routine Elevated liver enzymes Expected: 09/17/2023, Expires: 12/17/2023 [facility] [place] Work Phone: Comment on above: Expected: 09/17/2023, Expires: 4 Start: 09-17-2023 End: 12-17-2023 IgM [Mass/volume] in Serum or Plasma IGM Lab Routine Elevated liver enzymes Expected: 09/17/2023, Expires: 12/17/2023 [facility] [place] Work Phone: Comment on above: Expected: 09/17/2023, Expires: 4 Start: 09-17-2023 End: 12-17-2023 Iron and Iron binding capacity panel - Serum or Plasma IRON + TIBC Lab Routine Chronic hepatitis C without hepatic coma (HCC) Elevated liver enzymes Expected: 09/17/2023, Expires: 12/17/2023 [facility] [place] Work Phone: Comment on above: Expected: 09/17/2023, Expires: 4 Start: 09-17-2023 End: 12-17-2023 Lipid 1996 panel - Serum or Plasma LIPID PANEL BASIC Lab Routine Chronic hepatitis C without hepatic coma (HCC) Elevated liver enzymes Expected: 09/17/2023, Expires: 12/17/2023 [facility] [place] Work Phone: Comment on above: Expected: 09/17/2023, Expires: 4 Start: 09-17-2023 End: 12-17-2023 Mitochondria Ab [Presence] in Serum by Immunofluorescence MITOCHONDRIAL M2 IGG SERUM Lab Routine Chronic hepatitis C without hepatic coma (HCC) Elevated liver enzymes Expected: 09/17/2023, Expires: 12/17/2023 [facility] [place] Work Phone: Comment on above: Expected: 09/17/2023, Expires: 4 Start: 09-17-2023 End: 12-17-2023 Nuclear Ab [Presence] in Serum by Immunoassay MONA BLOOD Lab Routine Chronic hepatitis C without hepatic coma (HCC) Elevated liver enzymes Expected: 09/17/2023, Expires: 12/17/2023 [facility] [place] Work Phone: Comment on above: Expected: 09/17/2023, Expires: 4 Start: 09-17-2023 End: 12-17-2023 Smooth muscle Ab [Presence] in Serum SMOOTH MUSCLE AB SCR Lab Routine Chronic hepatitis C without hepatic coma (HCC) Elevated liver enzymes Expected: 09/17/2023, Expires: 12/17/2023 [facility] [place] Work Phone: Comment on above: Expected: 09/17/2023, Expires: 4 Start: 09-12-2023 End: 11-12-2023 Acute hepatitis 2000 panel - Serum [facility] [place] Work Phone: Comment on above: Expected: 09/12/2023, Expires: 3 Start: 09-12-2023 End: 11-12-2023 Hepatitis B virus core IgM Ab [Presence] in Serum [facility] [place] Work Phone: Comment on above: Expected: 09/12/2023, Expires: 3 Start: 09-12-2023 End: 11-12-2023 Hepatitis B virus surface Ab [Presence] in Serum [facility] [place] Work Phone: Comment on above: Expected: 09/12/2023, Expires: 3 Start: 09-12-2023 End: 11-12-2023 Hepatitis B virus surface Ag [Presence] in Serum [facility] [place] Work Phone: Comment on above: Expected: 09/12/2023, Expires: 3 Start: 09-12-2023 End: 11-12-2023 Hepatitis C virus RNA [Units/volume] (viral load) in Serum or Plasma by GERMÁN with probe detection [facility] [place] Work Phone: Comment on above: Expected: 09/12/2023, Expires: 3 Start: 09-12-2023 End: 11-12-2023 HIV 1+2 Ab [Presence] in Serum or Plasma by Immunoassay [facility] [place] Work Phone: Comment on above: Expected: 09/12/2023, Expires: 3 Start: 08-01-2023 Covid-19 Vaccine ( season) Covid-19 Vaccine ( season) [facility] Start: 08-01-2023 Influenza vaccination Influenza Vaccine (#1) [facility] Start: 12-01-2022 Depression Assessment Depression Assessment [facility] Start: 08-01-2022 Influenza vaccination INFLUENZA (Season Ended) [facility] Start: 08-01-2018 Influenza vaccination SEQUENTIAL INFLUENZA VACCINE (Season Ended) [facility] Start: 08-01-2017 Influenza vaccination SEQUENTIAL INFLUENZA VACCINE (#1) [facility] Work Phone: Start: 2010 Hepatitis A Vaccine (1 of 2 - Risk 2-dose series) Hepatitis A Vaccine (1 of 2 - Risk 2-dose series) [facility] Start: 2010 HEPATITIS B (1 of 3 - Risk 3-dose series) HEPATITIS B (1 of 3 - Risk 3-dose series) [facility] Start: 2010 Hepatitis B Vaccine (1 of 3 - 19+ 3-dose series) Hepatitis B Vaccine (1 of 3 - 19+ 3-dose series) [facility] Start: 2010 Urine microalbumin profile [facility] Start: 2009 Depression Screening Depression Screening [facility] Start: 2009 MMR (1 of 2 - Risk 2-dose series) MMR (1 of 2 - Risk 2-dose series) [facility] Start: 2009 MMR Vaccine (1 of 2 - Risk 2-dose series) MMR Vaccine (1 of 2 - Risk 2-dose series) [facility] Start: 2003 Adult depression screening assessment DEPRESSION SCREENING [facility] Start: 2001 Meningococcal B Vaccine: Consider Based On Risk (1 of 4 - Increased Risk) Meningococcal B Vaccine: Consider Based On Risk (1 of 4 - Increased Risk) [facility] Start: 2001 MENINGOCOCCAL B: Consider based on risk (1 of 4 - Increased Risk Bexsero 2-dose series) MENINGOCOCCAL B: Consider based on risk (1 of 4 - Increased Risk Bexsero 2-dose series) [facility] Start: 1997 PNEUMOCOCCAL (1 - PCV) PNEUMOCOCCAL (1 - PCV) [facility] Start: 1997 [facility] Start: 1996 COVID-19 VACCINE (#1) COVID-19 VACCINE (#1) [facility] Start: 1992 HEPATITIS A (1 of 2 - Risk 2-dose series) HEPATITIS A (1 of 2 - Risk 2-dose series) [facility] Start: 1991 Covid-19 Vaccine (#1) Covid-19 Vaccine (#1) [facility] Start: 1991 Tetanus vaccination TETANUS EVERY 10 YR [facility] Work Phone: End: 10-28-2024 Ct abdomen & pelvis w/contrast material CT ENTEROGRAPHY W IVCON Radiology Routine Crohn's disease of small and large intestines with complication (HCC) 1 Occurrences starting 09/29/2023 until 10/28/2024 [facility] [place] Work Phone: Comment on above: 1 Occurrences starting 09/29/2023 until 10/28/2024 End: 06-13-2025 CT Small bowel W contrast PO and W contrast IV CT ENTEROGRAPHY W IVCON Radiology Routine Crohn's disease of small and large intestines with complication (HCC) 1 Occurrences starting 05/14/2024 until 06/13/2025 [facility] Comment on above: 1 Occurrences starting 05/14/2024 until 06/13/2025 End: 05-31-2025 ECG COMPLETE ECG COMPLETE ECG Routine Preoperative examination Ventral hernia without obstruction or gangrene 1 Occurrences starting 05/31/2024 until 05/31/2025 [facility] Comment on above: 1 Occurrences starting 05/31/2024 until 05/31/2025 ECG COMPLETE ECG COMPLETE ECG 06/29/2024 12:32 PM EDT [facility] [place] IMPLANT MESH/PROSTHE SIS VENTRAL HERNIA REPAIR GREATER THAN 10cm IMPLANT MESH/PROSTHESIS VENTRAL HERNIA REPAIR GREATER THAN 10cm Preoperative examination Ventral hernia without obstruction or gangrene [facility] Liver ultrasound attenuation by transient elastography DDI VIBRATION CONTROLLED TRANSIENT ELASTOGRAPHY (VCTE) Endoscopy Routine Elevated liver enzymes Fatty liver Ordered: 05/14/2024 [facility] Comment on above: Ordered: 05/14/2024 Patient Education Prone Position [facility] ED/OP COVID-19 Discharge Instructions [facility] Work Phone: Patient referral [facility] Work Phone: REFER FOR ADMIT INTERVIEW REFER FOR ADMIT INTERVIEW Procedures Routine Preoperative examination Ventral hernia without obstruction or gangrene Ordered: 05/31/2024 [facility] [place] Work Phone: Comment on above: Ordered: 05/31/2024 End: 10-11-2024 US ABD RIGHT UPPER QUADRANT US ABD RIGHT UPPER QUADRANT Radiology Routine Chronic hepatitis C without hepatic coma (HCC) 1 Occurrences starting 09/12/2023 until 10/11/2024 [facility] [place] Work Phone: Comment on above: 1 Occurrences starting 09/12/2023 until 10/11/2024 End: 05-30-2023 XR HAND GENERAL 3V PA/LAT/OBL RIGHT XR HAND GENERAL 3V PA/LAT/OBL RIGHT Radiology Routine Hand injury, right, initial encounter 1 Occurrences starting 04/30/2022 until 05/30/2023 [facility] [place] Work Phone: Comment on above: 1 Occurrences starting 04/30/2022 until 05/30/2023 [facility] Immunizations Immunization Date Immunization Notes Care Provider Fa nissaty 02-19-2017 Vivitrol Cruz [employer] Other [employer] [facility] [employer] Other 01-27-2017 Vivitrol Cruz [employer] Other [employer] Other NEGATED: Highlighted row has not occurred!03-24-2021 tetanus toxoid, reduced diphtheria toxoid, and acellular pertussis vaccine, adsorbed MD Chetan Rojas ([facility]) Work Phone: [facility] NEGATED: Highlighted row has not occurred!07-05-2018 tetanus toxoid, reduced diphtheria toxoid, and acellular pertussis vaccine, adsorbed MD Chetan Rojas ([facility]) Work Phone: [facility] Payers Date Payer Category Payer Self-pay [id number] 2023 Medicaid [place] [employer] [employer] [id number] 2023-Present [phone] [place] [id number] Medicaid [id number] 2021 Medicaid [place] [id number] 2021-Present [phone] [place] [id number] Medicaid [id number] 2012 Medicare [id number] 1991 Unknown [id number] 02 1991 Unknown [id number] 03 1991 Unknown [id number] 93 1991 Unknown [id number] 93 1991 Unknown [id number] 93 1991 Unknown [id number] 93 1959 Medicaid [id number] Medicare [id number] Unknown [id number] 31 Unknown [facility] [employer] PA YOR [facility] [employer] PAYOR [id number] Effective for all dates [address] [place] [address] Other [id number] Worker's Compensation [id number] Social History Date Type Detail Facility Start: 2018 End: 09-12-2023 Tobacco smoking status SCIS Current every day smoker [facility] History of tobacco use Cigarette Smoker [employer] Work Phone: Start: 2018 End: 12-19-2022 Cigarettes smoked current (pack per day) - Reported [facility] Work Phone: Start: 1990 Sex Assigned At Not on file [facility] [employer] Work Phone: Start: 10-08-2021 End: 07-19-2024 Alcohol intake Current drinker of alcohol (finding) [facility] Start: 12-19-2022 End: 09-12-2023 Sex Assigned At [facility] Work Phone: Start: 11-11-2022 Tobacco smoking stat us NHIS Smoker (finding) [facility] Start: 1990 Sex Assigned At Male [facility] Start: 09-12-2023 Tobacco use and exposure Smokeless tobacco non-user [facility] National Score (1-10 0), lower number is lower risk 53 [facility] Start: 10-09-2020 Gender identity Identifies as male gender (finding) [facility] Start: 06-29-2024 Alcohol Comment 4-5 shots per day [facility] Has the [employer], [place], or water [employer] threatened to shut off services in your home in past 12Mo No [facility] Work Phone: (I/We) worried wheth er (my/our) food would run out before (I/we) got money to buy more. Never true [facility] Medical Equipment Procedure Code Equipment Code Equipment Origin al Text Equipment Identifier Dates Mesh Prolene Squ are Flat [id number] Surgical Knit Nonabsorbable Nonreactive - [id number] Start: 06-30-2024 Clinical Notes 09-06-2012 to 07-19-2024 Adolfo Ballard MD - 07/19/2024 11:43 AM Charleen Ramon MD - 07/19/2024 7:56 AM EDTTelephone Encounter - Adolfo Ballard MD - 07/12/2024 1:52 PM Antoni Catherine MD - 07/11/2024 11:33 AM EDT Note Date & Type Note Facility 07-19-2024 Note [facility] 07-19-2024 History of Presen t illness Narrative Angelita Momin is here for a postoperative visit following open ventral hernia repair with mesh and lysis of adhesions. His postoperative course was complicated by his pain management and withdrawal. He was given a Dilaudid taper consistent with the recommendations from the acute care pain management team. I continued his taper for an additional 3 days so that he can make it to his pain management appointment this morning. He went to his pain management appointment and it was recommended that he did not receive opioids and instead he resume his Suboxone that was on preoperatively. He does not want to resume Suboxone and is asking for opioids. At this point I will follow the recommendation of the pain management team and advised the patient return to his Suboxone if that is what he needs. He did threaten to use street medications if I did not write him a prescription for opioids. I reiterated the recommendation for Suboxone as well as the recommendation for Cymbalta from the instructor painting. He does not want to take any his medications and prefers opioids. I do not write him a prescription for any opioids today. I continue with my recommendation that he should resume his Suboxone consistent with pain management recommendations. He can follow-up as needed. documented in this encounter [facility] 07-19-2024 Note HNO ID: [id number] Author: CHARLEEN SILVER MD Service: ? Author Type: Physician Type: Progress Notes Filed: 07/19/2024 08:45 Note Text: [facility] Pain Management Department Consultation Date: July 19, 2024 - 7:56 AM Referring physician: No referring provider defined for this encounter. Angelita Momin is self referred. States Dr Ballard referred Chief Complaint: Patient presents with: Pain: Chronic pain The patient is accompanied by significant other SUBJECTIVE: Angelita Momin, is a 34 years old obese white male with a history of Crohn disease requiring multiple surgical intervention in the past who has been treated at [facility] recently for abdominal hernia repair with a mesh. Surgery took place about 3 weeks ago and he is recovering slowly. Prior to his surgery however, he was on high dose of Suboxone that he claimed it was given for him for chronic pain syndrome. Now he is weaning off the Dilaudid, his pain is returning and he does not want to go back on Suboxone but rather continue with pure agonist opiates such as hydromorphone. He is on high-dose of Lyrica 200 mg 3 times daily. He is not on any SSNRI. He is somewhat agitated as he is not happy with the experience of weaning his pain medication gradually. Evidently he was sent to pain management for adjunctive therapy but clearly 1 continue with opiates. The pain started Weeks ago, following a surgical procedure (hernia surgery 06/30/24). Has had Chronic pain for years. His pain is located in the (Chronic pain). The pain is described as Continuous Aching, Bloating, Burning, Cramping, Cutting, Pressure, Pressure Ulcer/Injury, Radiating, Sharp, Sore, Stabbing, Stabbing/Not Incision, Stiffness, Surgical/Not Incision, Tenderness, Throbbing, Tightness. The pain intensity is rated 9 The pain is exacerbated by nothing specific and relieved by Medication, Relaxation, Distractions, Education, Emotional Support/Reassurance, Exercise, Heat. Symptoms interfere with physical activity. Litigation: No. Worker's Compensation: No. Prior pain treatment has included meds. He had relief from the following interventions: None. Patient Entered Questionnaires PROMIS Score Percentiles 09/29/2023 05/13/2024 PROMIS Global Health Scale Physical Health Percentile 0 1 Mental Health Percentile 2 2 07/12/2024 Physical Health Physical Function Percentile 2 Pain Interference Percentile 0 Percentiles provide an indication of how the patient's score ranks in relation to the general population. Higher percentile rankings indicate better function/quality of life. 50th percentile is the average of the general population and indicates half of respondents had a worse score. > 31st percentile is within normal limits or better * < 31st percentile is at least ? SD worse than population, which may be clinically relevant < 16th percentile is at least 1 SD worse than population and warrants attention ALLERGIES Allergen Reactions Amoxicillin Rash Cefuroxime Diarrhea Darvon [Propoxyphen* Rash, Itching facial flushing, blurred vision Iodinated Contrast * Intolerance Pt sneezes several times after CT contrast, no itching. This is not an allergic reaction, just a intolerance.Pt also has other health conditions that may also be leading to these symptoms Morphine Hives Current Medications: HYDROmorphone 2 mg tablet Take 1 tablet by mouth every 6 hours as needed for up to 3 days. Patient should start on July 16, 2024. ALPRAZolam (XANAX) 1 mg tablet Take 1 tablet by mouth four times a day as needed for anxiety for up to 30 days. naloxone 4 mg/actuation nasal spray (NARCAN) Use 1 spray in one nostril as needed for overdose. May repeat every 2 to 3 min in alternating nostrils until medical assistance is available valproic acid (DEPAKENE) 250 mg capsule Take 1 capsule by mouth twice a day for 1 week then transition to 1 capsule before sleep for 1 week. omeprazole (PRILOSEC) 40 mg capsule 1 capsule 30 minutes before morning meal Orally Once a day for 30 days albuterol HFA (PROAIR HFA) 90 mcg/actuation inhaler 2 Puffs every 6 hours as needed for wheezing/shortness of breath. Take as directed buprenorphine-naloxone (SUBOXONE) 8-2 mg film dissolve 1 film under the tongue twice a day amphetamine-dextroamphetamine XR (ADDERALL XR) 25 mg 24 hr capsule Take by mouth every morning. amphetamine-dextroamphetamine 15 mg tablet TAKE 1 TABLET BY MOUTH EVERY DAY IN THE EVENING Pregabalin (LYRICA) 200 mg capsule Take 200 mg by mouth three times daily. eszopiclone (LUNESTA) 3 mg ORAL Tab Take 1 tablet by mouth at bedtime as needed. for insomnia. (Patient not taking: Reported on 06/29/2024) PAST MEDICAL HISTORY No date: Bowel disease No date: Cancer ([facility]) No date: Chronic obstructive pulmonary disease (COPD) ([facility]) No date: Congestive heart failure (HCC) 2007: Crohn's No date: History of transfusion 03/21/2010: Pneumonia 1 (more content not included)... [facility] 07-19-2024 History of Presen t illness Narrative [facility] Pain Management Department Consultation Date: July 19, 2024 - 7:56 AM Referring physician: No referring provider defined for this encounter. Angelita Momin is self referred. States Dr Ballard referred Chief Complaint: Patient presents with: Pain: Chronic pain The patient is accompanied by significant other SUBJECTIVE: Angelita Momin, is a 34 years old obese white male with a history of Crohn disease requiring multiple surgical intervention in the past who has been treated at [facility] recently for abdominal hernia repair with a mesh. Surgery took place about 3 weeks ago and he is recovering slowly. Prior to his surgery however, he was on high dose of Suboxone that he claimed it was given for him for chronic pain syndrome. Now he is weaning off the Dilaudid, his pain is returning and he does not want to go back on Suboxone but rather continue with pure agonist opiates such as hydromorphone. He is on high-dose of Lyrica 200 mg 3 times daily. He is not on any SSNRI. He is somewhat agitated as he is not happy with the experience of weaning his pain medication gradually. Evidently he was sent to pain management for adjunctive therapy but clearly 1 continue with opiates. The pain started Weeks ago, following a surgical procedure (hernia surgery 06/30/24). Has had Chronic pain for years. His pain is located in the (Chronic pain). The pain is described as Continuous Aching, Bloating, Burning, Cramping, Cutting, Pressure, Pressure Ulcer/Injury, Radiating, Sharp, Sore, Stabbing, Stabbing/Not Incision, Stiffness, Surgical/Not Incision, Tenderness, Throbbing, Tightness. The pain intensity is rated 9 The pain is exacerbated by nothing specific and relieved by Medication, Relaxation, Distractions, Education, Emotional Support/Reassurance, Exercise, Heat. Symptoms interfere with physical activity. Litigation: No. Worker's Compensation: No. Prior pain treatment has included meds. He had relief from the following interventions: None. Patient Entered Questionnaires PROMIS Score Percentiles 09/29/2023 05/13/2024 PROMIS Global Health Scale Physical Health Percentile 0 1 Mental Health Percentile 2 2 07/12/2024 Physical Health Physical Function Percentile 2 Pain Interference Percentile 0 Percentiles provide an indication of how the patient's score ranks in relation to the general population. Higher percentile rankings indicate better function/quality of life. 50th percentile is the average of the general population and indicates half of respondents had a worse score. > 31st percentile is within normal limits or better * < 31st percentile is at least SD worse than population, which may be clinically relevant < 16th percentile is at least 1 SD worse than population and warrants attention ALLERGIES Allergen Reactions Amoxicillin Rash Cefuroxime Diarrhea Darvon [Propoxyphen* Rash, Itching facial flushing, blurred vision Iodinated Contrast * Intolerance Pt sneezes several times after CT contrast, no itching. This is not an allergic reaction, just a intolerance.Pt also has other health conditions that may also be leading to these symptoms Morphine Hives Current Medications: HYDROmorphone 2 mg tablet Take 1 tablet by mouth every 6 hours as needed for up to 3 days. Patient should start on July 16, 2024. ALPRAZolam (XANAX) 1 mg tablet Take 1 tablet by mouth four times a day as needed for anxiety for up to 30 days. naloxone 4 mg/actuation nasal spray (NARCAN) Use 1 spray in one nostril as needed for overdose. May repeat every 2 to 3 min in alternating nostrils until medical assistance is available valproic acid (DEPAKENE) 250 mg capsule Take 1 capsule by mouth twice a day for 1 week then transition to 1 capsule before sleep for 1 week. omeprazole (PRILOSEC) 40 mg capsule 1 capsule 30 minutes before morning meal Orally Once a day for 30 days albuterol HFA (PROAIR HFA) 90 mcg/actuation inhaler 2 Puffs every 6 hours as needed for wheezing/shortness of breath. Take as directed buprenorphine-naloxone (SUBOXONE) 8-2 mg film dissolve 1 film under the tongue twice a day amphetamine-dextroamphetamine XR (ADDERALL XR) 25 mg 24 hr capsule Take by mouth every morning. amphetamine-dextroamphetamine 15 mg tablet TAKE 1 TABLET BY MOUTH EVERY DAY IN THE EVENING Pregabalin (LYRICA) 200 mg capsule Take 200 mg by mouth three times daily. eszopiclone (LUNESTA) 3 mg ORAL Tab Take 1 tablet by mouth at bedtime as needed. for insomnia. (Patient not taking: Reported on 06/29/2024) PAST MEDICAL HISTORY No date: Bowel disease No date: Cancer ([facility]) No date: Chronic obstructive pulmonary disease (COPD) ([facility]) No date: Congestive heart failure ([facility]) 2007: Crohn's No date: History of transfusion 03/21/2010: Pneumonia 11/06/2015: SBO (small bowel obstruction) ([facility]) Comment: - CT : bowl obstruction with transition point at the [facility] -NPO -IVF -pain control -Phenergen for n/v -for flex sig -f/u CORS 03/2008: Spontaneous pneumothorax 09/06/2012: Syncope Comment: DD includes Vasovagal syncope related to pain Plan Telemetry Echo Pain control Utox PAST SURGICAL HISTORY 02/16/2010: Bowel length per surgical history Comment: >200 cm small bowel to ileostomy; no colon remaining, no ICV; NIRAJ, +rectum/anus out of continuity 08/31/2010: CLOSURE ENTEROSTOMY LG/SMALL INTESTINE Comment: Performed by FRANCO GARCIA at [facility] 03/31/2008: PAST SURGICAL HISTORY OF Comment: 2 lung surgeries for pneuothorax in March 2008. (Video-assisted throacopic surgery with stapling of blebs and pleural adhesions with talc insufflation. 02/16/2010: PAST SURGICAL HISTORY OF Comment: total abdominal colectomy with ileorectal anastamosis and loop ileostomy; pathology: 57 cm length of colon, attached 7.5 cm terminal ileum, 5.2 cm appendix No date: PAST SURGICAL HISTORY OF; Right Comment: knee 07/06/2024: PICC LINE INSERT/CONSULT No date: REMOVAL GALLBLADDER No family history on file. Social History: Alcohol Use: Yes (4-5 shots per day) Tobacco Use: .5 packs/day, for 5 years. Types: Cigarettes Drug Use: No (sober 11 years) Employer And Job Title: None on file Years Of Education Completed: Not specified Marital Status: Review of Systems Constitutional: Negative. HENT: Negative. Eyes: Negative. Respiratory: Positive for cough and shortness of breath. Cardiovascular: Negative. Gastrointestinal: Positive for abdominal pain. Endocrine: Negative. Genitourinary: Negative. Musculoskeletal: Positive for arthralgias and myalgias. Skin: Negative. Abdominal incision Allergic/Immunologic: Negative. Neurological: Negative. Hematological: Negative. Psychiatric/Behavioral: Negative. OBJECTIVE: PHYSICAL EXAMINATION: BP 147/94 Pulse 89 Resp 18 General:Obese, agitated in mild distress, well appearing, and alert Skin: Skin color, texture, turgor normal, no rashes or lesions HEENT: Normocephalic, atraumatic, sclera nonicteric CV: Regular rate and rhythm, no murmur, clicks or rubs -Pulses: +2 and equal bilaterally Resp: Breathing unlabored, normal chest excursion. Lungs clear to auscultation, no wheezing or rhonchi. GI: Large dressing covering long midline incision : Not examined Musculoskeletal Neck: Supple, good range of motion Back: No pain to palpation of the lumbar spine, good range of motion without reproducible pain, straight leg raising test negative bilaterally Extremities: Normal without deformity, edema or skin discoloration Neurological: Mental Status: Alert and oriented x3, no acute distress, euthymic Cranial Nerves: 2 through 12 intact Reflexes: Not Examined Motor Strength: Not Examined Sensory: Not Examined Gait: Normal Medical record and diagnostic tests reviewed for today's visit: The [facility] EMR was reviewed during the visit OARRS: PDMP website checked and validated and is consistent with medication report. Pain Panel: Not applicable ASSESSMENT: The primary encounter diagnosis was Benzodiazepine dependence (HCC). Diagnoses of Anxiety, Opioid dependence with withdrawal (HCC), and Generalized abdominal pain were also pertinent to this visit. RECOMMENDATIONS: 1. Continue medication management through the patient's current prescribing physician 2. We discussed Cymbalta as an addition to his current medication however patient is refusing at and does not want the adjunctive treatment 3. He is not open minded about returning on Suboxone, however I feel this is the best route for him from his current prescriber 4. There will be no opiate prescribed at this juncture as it is an appropriate to continue 20 days postsurgery, especially in the presence of the alternative of returning to Suboxone 5. Patient should be released from my service to seek another opinion. I have read and tweaked the nurses note above in the HPI and review of system and agree with their findings Discussed options for additional treatment including; health promotion/lifestyle modifications, medication management, and additional pain management interventions. We also discussed referral to physical or occupational therapy, psychological pain management and surgical options as appropriate. The above plan and management options were discussed with patient. The patient is in agreement with the above and verbalized understanding. I spent 20 minutes in face to face counseling and coordination of care. Total visit time was 30 minutes. Charleen Silver MD Electronic signature CC Chetan Rojas MD, MD through [employer] documented in this encounter [facility] 07-12-2024 Telephone encounter Note Angelita Momin was called in response to his call to the office. His primary complaint is management of his pain. He is currently receiving his Dilaudid which was prescribed and is set to end on the . He states that he still has 18 pills. He also has the Xanax that was prescribed. These prescriptions were given at the recommendation of pain management and psychiatry. He stated that the blood that was in his urine has now resolved. He is not sure if that was from clindamycin that he took. But he did state that that was no longer an issue. Additionally he still having bowel movements he is able to eat although he feels slightly distended. He denies any issues with his wound. I had a lengthy discussion with him about options. He understands that his postoperative pain management will be challenging given his history. I did offer that he could return to the hospital for evaluation to make sure that his pain was controlled. He is not sure that he can make the 3-hour trip. He has a appointment with pain management 1 week from today. A total of 20 minutes was spent on the phone with him. Adolfo Ballard MD [facility] Work Phone: 07-12-2024 Miscellaneous Notes Angelita Momin was called in response to his call to the office. His primary complaint is management of his pain. He is currently receiving his Dilaudid which was prescribed and is set to end on the 15. He states that he still has 18 pills. He also has the Xanax that was prescribed. These prescriptions were given at the recommendation of pain management and psychiatry. He stated that the blood that was in his urine has now resolved. He is not sure if that was from clindamycin that he took. But he did state that that was no longer an issue. Additionally he still having bowel movements he is able to eat although he feels slightly distended. He denies any issues with his wound. I had a lengthy discussion with him about options. He understands that his postoperative pain management will be challenging given his history. I did offer that he could return to the hospital for evaluation to make sure that his pain was controlled. He is not sure that he can make the 3-hour trip. He has a appointment with pain management 1 week from today. A total of 20 minutes was spent on the phone with him. Adolfo Ballard MD documented in this encounter [facility] 07-11-2024 Note [facility] 07-11-2024 History of Presen t illness Narrative Virtualist Progress Note Triage Call I have communicated my name and active licensure. The patient's identity and physical location were verified at the time of this visit. Either the patient or their legal hr representative has been informed of the risks and benefits of -- and alternatives to -- treatment through a remote evaluation and consents to proceed with the evaluation remotely. Triage source: Triage Call (Nurse Electrical Cad Technician, [facility] Triage, [facility] Triage, [facility] Phone Triage) Was patient downgraded (i.e. disposition other than go to the ED was advised)? No Mode of contact: Audio Only Visit History/Physical Exam: Recent hernia repair Gross hematuria I am just hurting a lot When they pull cath I had blood clots I took clindamycin Urinating red blood the reddest of red Pee a hundred CC and stop I don't feel distended Lot of pain Suboxone in the past State urinating now Called for pain management Has appointment Friday Discussed need for ED Evaluation for urinary retention and hematuria Patient refuses Nurse Triage Disposition (If call is from [facility], [facility] nurse triage, or an [facility] Care, the disposition is Go to ED Now ): Go to ED Now Virtualist Recommended Disposition: Go to ED Signed in as Primary Virtualist, Secondary Virtualist, or [facility] Telehealth provider: Secondary documented in this encounter [facility] 07-11-2024 Telephone encounter Note Reason for call: Patient calling in due to having blood in the urine and pain issues. Outcome: Advised ED now, patient verbalizes understanding but declining. Conferenced the patient with Dr. Kong, who advised ED now, patient declining. Reason for Disposition Passing pure blood or large blood clots (i.e., size > a dime) (Exception: Jin or small strands.) Protocols used: Urine - Blood In-ADULT- [facility] 07-11-2024 Miscellaneous Notes Reason for call: Patient calling in due to having blood in the urine and pain issues. Outcome: Advised ED now, patient verbalizes understanding but declining. Conferenced the patient with Dr. Kong, who advised ED now, patient declining. Reason for Disposition Passing pure blood or large blood clots (i.e., size > a dime) (Exception: Jin or small strands.) Protocols used: Urine - Blood In-ADULT- documented in this encounter [facility] 07-08-2024 Note [facility] 07-08-2024 Note [facility] 07-08-2024 Note [facility] 07-08-2024 Note [facility] 07-07-2024 Note [facility] 07-06-2024 Note [facility] 07-06-2024 Note [facility] 07-06-2024 Note [facility] 07-05-2024 Note [facility] 07-04-2024 Note [facility] 07-04-2024 Note [facility] 07-04-2024 Note [facility] 07-04-2024 Note [facility] 07-03-2024 Note [facility] 07-03-2024 Note [facility] 07-02-2024 Note [facility] 07-01-2024 Note [facility] 06-30-2024 Note [facility] 06-29-2024 History and physical note Images from the original note were not included. [facility] HISTORY AND PHYSICAL EXAMINATION SERVICE DATE: 06/29/2024 SERVICE TIME: 12:04 PM PRIMARY CARE PHYSICIAN: Chetan Rojas MD, MD REASON FOR VISIT: Angelita Momin is a 34 year old male who is scheduled for IMPLANT MESH/PROSTHESIS VENTRAL HERNIA REPAIR GREATER THAN 10cm at the request of Dr. Renee Pearce for consultation. My final recommendation will be communicated back to the requesting physician by way of shared medical record or letter. Assessment Gastroesophageal reflux disease Assessment: managed with med, stable Follows up with PCP and GI Opioid dependence (HCC) Assessment: daily suboxone Obesity, Class II, BMI 35-39.9 Assessment: diet and exercise encouraged BMI 36 S/P colectomy Assessment: s/p reversal HCV (hepatitis C virus) Assessment: follows hepatology States resolved Nicotine abuse Assessment: current 0.5 ppd for five years ETOH abuse Assessment: states 4-5 shots per day Denies history of DT's [place] Activity Status Index: METS: Climb a flight of stairs or walk up a hill (5.50 METs) DASI Score: 5.5 Patient denies any chest pain or undue shortness of breath with the above physical activity. Clinical Frailty Scale: 3. Well, with treated comorbid disease STOP-Bang Score: BMI greater than 35 kg/m^2 Male patient Denies snoring loudly Denies feeling tired, fatigued, or sleepy during the daytime Has not been observed to stop breathing or choking/gasping during sleep Denies having high blood pressure Patient 50 years old or younger STOP-Bang Score: 2 [id number] Score: Age: <65 Sex: male [id number] Score: ARISCAT Score: Age: <=50 Preoperative SpO2: >=96% Preoperative anemia: Yes Duration of surgery: 2-3 hrs Emergency procedure: No ARISCAT Score: ANESTHESIA FINDINGS: Intubation History: No history of difficult intubation. No abnormal airway history Significant Anesthesia Considerations: none Airway History: No history of difficult airway No abnormal airway history I - PHYSICAL EVALUATION AIRWAY Patient intubated: No. Tracheostomy tube not present Mallampati: II. TM distance: >3 FB. Neck ROM: full ROM without neurological symptoms. Mouth opening: adequate. Short neck: no. Thick neck: yes Sparks present: yes Lip Bite Test: II DENTAL Dental findings: teeth intact. II - ANESTHESIA PLAN Anesthetic plan additional comments: *PACC/TCI - anesthesia choice. Beta Judy Monitoring Plan Post Procedure Analgesic Plan Prepared for surgery: This patient is optimally prepared for surgery pending LABS. CONSULTS: Patient does not require consults for optimization at this time. The Following Tests/Procedures Have Been Initiated: Orders Placed This Encounter Type and Screen, 30 day Standing Status: Future Standing Expiration Date: 09/28/2024 Scheduling Instructions: A 30-day Type and Screen test has been ordered for you. This should be scheduled to be collected no earlier than 29 days before your scheduled procedure. If you receive blood products (red blood cells, platelets, plasma, cryoprecipitate) at any point before your procedure or are a female and become , please inform your provider. This test will be canceled, and a standard type and screen will need to be ordered to be collected within 3 days of your procedure. Order Specific Question: [facility] Planned Surgery or Procedure: Answer: [facility] Order Specific Question: Status of surgery/procedure: Answer: Scheduled Order Specific Question: Date of surgery/procedure: Answer: 06/30/2024 omeprazole (PRILOSEC) 40 mg capsule Si capsule 30 minutes before morning meal Orally Once a day for 30 days DISCONTD: ondansetron (ZOFRAN) 8 mg tablet Si tablet as needed Orally Once a day for 30 day(s) ECG COMPLETE Order Comments: Ordered by an unspecified provider Planned Anesthetic: Per anesthesia choice The patient has the following: ACTIVE PROBLEM LIST Crohn's Disease (Hcc) S/P Colectomy S/P Ileostomy (Hcc) Abnormal Ecg Hcv (Hepatitis C Virus) Anxiety Attention Deficit Hyperactivity Disorder (Adhd) Bipolar 1 Disorder (Hcc) Gastroesophageal Reflux Disease Opioid Dependence (Hcc) Moderate Protein-Calorie Malnutrition (Hcc) Clostridioides Difficile Infection Obesity, Class II, Bmi 35-39.9 Nicotine Abuse Etoh Abuse Subjective CHIEF COMPLAINT: Pre-op exam HPI: This is a 34 year old male that is scheduled for the above procedure. Patient has a hernia. He states pain at this time is 8/10 and described as aching. He denies N/V/D. PAST MEDICAL HISTORY Diagnosis Date Bowel disease Cancer (HCC) Chronic obstructive pulmonary disease (COPD) (HCC) Congestive heart failure (HCC) Crohn's 2007 History of transfusion Pneumonia 03/21/2010 SBO (small bowel obstruction) ([facility]) 11/06/2015 - CT : bowl obstruction with transition point at the [facility] -NPO -IVF -pain control -Phenergen for n/v -for flex sig -f/u CORS Spontaneous pneumothorax 03/2008 Syncope 09/06/2012 DD includes Vasovagal syncope related to pain Plan Telemetry Echo Pain control Utox PAST SURGICAL HISTORY Procedure Laterality Date Bowel length per surgical history 02/16/2010 >200 cm small bowel to ileostomy; no colon remaining, no ICV; NIRAJ, +rectum/anus out of continuity CLOSURE ENTEROSTOMY LG/SMALL INTESTINE 08/31/2010 Performed by FRANCO GARCIA at [facility] PAST SURGICAL HISTORY OF 03/31/2008 2 lung surgeries for pneuothorax in March 2008. (Video-assisted throacopic surgery with stapling of blebs and pleural adhesions with talc insufflation. PAST SURGICAL HISTORY OF 02/16/2010 total abdominal colectomy with ileorectal anastamosis and loop ileostomy; pathology: 57 cm length of colon, attached 7.5 cm terminal ileum, 5.2 cm appendix PAST SURGICAL HISTORY OF Right knee REMOVAL GALLBLADDER History reviewed. No pertinent family history. SOCIAL HISTORY: Social History Tobacco Use Smoking status: Every Day Packs/day: 0.50 Years: 5.00 Additional pack years: 0.00 Total pack years: 2.50 Types: Cigarettes Smokeless tobacco: Never Substance Use Topics Alcohol use: Yes Comment: 4-5 shots per day Drug use: No Comment: sober 11 years MEDICATIONS: Prior to Admission medications as of 06/29/24 1243 Medication Sig Last Dose Taking omeprazole (PRILOSEC) 40 mg capsule 1 capsule 30 minutes before morning meal Orally Once a day for 30 days Taking Yes loperamide (IMODIUM) 2 mg cap(s) Take 1 capsule by mouth four times a day as needed. Patient taking differently: Take 2 mg by mouth four times a day as needed. New prescription has not picked up yet Taking Differently Yes albuterol HFA (PROAIR HFA) 90 mcg/actuation inhaler 2 Puffs every 6 hours as needed for wheezing/shortness of breath. Take as directed Taking Yes buprenorphine-naloxone (SUBOXONE) 8-2 mg film dissolve 1 film under the tongue twice a day Taking Yes amphetamine-dextroamphetamine XR (ADDERALL XR) 25 mg 24 hr capsule Take by mouth every morning. Taking Yes amphetamine-dextroamphetamine 15 mg tablet TAKE 1 TABLET BY MOUTH EVERY DAY IN THE EVENING Taking Yes Pregabalin (LYRICA) 200 mg capsule Take 200 mg by mouth three times daily. Taking Yes ALPRAZolam (XANAX) 1 mg tablet Take 1 tablet by mouth three times daily as needed for Anxiety. Patient taking differently: Take 1 mg by mouth four times a day as needed for anxiety. Taking Yes eszopiclone (LUNESTA) 3 mg ORAL Tab Take 1 tablet by mouth at bedtime as needed. for insomnia. Patient not taking: Reported on 06/29/2024 Not Taking Medication Comments documented by Maegan Silverman on 04/10/2010 at 1247. Pt states all meds are current-Maegan HENSON CURRENT ALLERGIES: ALLERGIES Allergen Reactions Amoxicillin Rash Cefuroxime Diarrhea Darvon [Propoxyphen* Rash, Itching facial flushing, blurred vision Iodinated Contrast * Intolerance Pt sneezes several times after CT contrast, no itching. This is not an allergic reaction, just a intolerance.Pt also has other health conditions that may also be leading to these symptoms Morphine Hives Covid Immunization Dates Overdue - Covid-19 Vaccine ( season) Never done No completion, postpone, frequency change, or communication history exists for this topic. REVIEW OF SYSTEMS: PAIN ASSESSMENT: Pain Pain Level: 8 Pain Location: Abdomen Description: Throbbing, Aching, Sharp Duration Amount of Time: 6 Duration Units: Months Frequency: Continuous General: No weight loss, malaise or fevers. Neuro: No history of TIA's, stroke, HAND INSPECTOR tumor, impaired sensorium, hemiplegia, paraplegia or quadraplegia. No neurological symptoms or problems. Respiratory: Positive for Tobacco Use 0.5ppd , Negative for No history of current cough or dyspnea, or pneumonia in the past 6 weeks. No history of respiratory/pulmonary symptoms or problems Cardiovascular: No history of HTN requiring medication, no history of angina, CHF, CA, cardiac surgery or stents. Denies rest pain, gangrene or revascularization/amputation for PVD. No history of cardiovascular symptoms or problems. GI: See HPI : No history of dysuria, frequency or incontinence,, stones or chronic kidney disease, No difficulty urinating, nocturia > 1 time per night or hematuria Endocrine: No history of diabetes. Has not taken steroids within the past 30 days. No history of endocrinological symptoms or problems. Hematology: No history of bleeding or clotting disorder. Pt is not taking anti-coagulation or platelet medications. No history of hematological symptoms or problems. Oncology: No history of CA metastasis, chemo within 30 days, or radiotherapy within 90 days. Has not lost 10% of body wt in 6 months. No history of oncological symptoms or problems. Psych: Anxiety, Depression Musculoskeletal: Back pain and Joint pain Skin: Negative for lesions, rash and itching. Objective PHYSICAL EXAM: VITALS: BP 124/84[MAP: 97[ Pulse 96 Temp (Src) 98 (Temporal) Resp 17 Ht 6' 2.5 (1.89m) Wt 285 lb 4.4 oz (129.4kg) SpO2 97% BMI 36.15 kg/(m^2). General: Alert and oriented, No acute distress Skin: Normal color, no rash, no lesions. HEENT: EOM, pupils equal, round and reactive. Cardiovascular: Normal S1 & S2, no rubs, murmurs or gallops. No JVD. Pulse regular. Lungs: Normal breath sounds, no wheezes or crackles., No chest deformities or chest wall tenderness. Abdomen: Soft, non-tender, no rigidity., No masses or organomegaly. Extremities: No deformity, no edema or tenderness, no joint swelling or clubbing. Neurological: Normal cognition and motor skills. Gait normal. No weakness or sensory deficit. Pulses: Carotid and radial pulses normal +2. Diagnostic tests reviewed for today's visit: Lab Value Units Date High Low HB 16.2 g/dL 05/21/2024 17.0 13.0 HCT 49.8 % 05/21/2024 51.0 39.0 WBC 7.19 k/uL 05/21/2024 11.00 3.70 PLT 156 k/uL 05/21/2024 400 150 NA 133 mmol/L 05/21/2024 144 136 K 4.1 mmol/L 05/21/2024 5.1 3.7 GLUC 92 mg/dL 05/21/2024 99 74 BUN 14 mg/dL 05/21/2024 24 9 CREAT 1.01 mg/dL 05/21/2024 1.22 0.73 PTSEC 11.5 sec 05/21/2024 13.0 9.7 INR 1.1 no uni* 05/21/2024 1.3 0.9 APTT No results within date range. ALT 156 U/L 05/21/2024 54 10 AST 108 U/L 05/21/2024 40 14 TBILI 1.3 mg/dL 05/21/2024 1.3 0.2 TSH No results within date range. EKG in office 06/29/2024 Preliminary result: NORMAL SINUS RHYTHM NORMAL ECG Instructions Given to Patient: Instructions located in the after visit summary. Patient given verbal and written preop instructions and voices comprehension and compliance. SIGNATURE: Nataliia Baez APRN.LIZET PATIENT NAME: Angelita Momin DATE: 06/29/2024 TIME: 12:04 PM [facility] 06-29-2024 History and physical note Images from the original note were not included. [facility] HISTORY AND PHYSICAL EXAMINATION SERVICE DATE: 06/29/2024 SERVICE TIME: 12:04 PM PRIMARY CARE PHYSICIAN: Chetan Rojas MD, MD REASON FOR VISIT: Angelita Momin is a 34 year old male who is scheduled for IMPLANT MESH/PROSTHESIS VENTRAL HERNIA REPAIR GREATER THAN 10cm at the request of Dr. Renee Pearce for consultation. My final recommendation will be communicated back to the requesting physician by way of shared medical record or letter. Assessment Gastroesophageal reflux disease Assessment: managed with med, stable Follows up with PCP and GI Opioid dependence (HCC) Assessment: daily suboxone Obesity, Class II, BMI 35-39.9 Assessment: diet and exercise encouraged BMI 36 S/P colectomy Assessment: s/p reversal HCV (hepatitis C virus) Assessment: follows hepatology States resolved Nicotine abuse Assessment: current 0.5 ppd for five years ETOH abuse Assessment: states 4-5 shots per day Denies history of DT's [place] Activity Status Index: METS: Climb a flight of stairs or walk up a hill (5.50 METs) DASI Score: 5.5 Patient denies any chest pain or undue shortness of breath with the above physical activity. Clinical Frailty Scale: 3. Well, with treated comorbid disease STOP-Bang Score: BMI greater than 35 kg/m^2 Male patient Denies snoring loudly Denies feeling tired, fatigued, or sleepy during the daytime Has not been observed to stop breathing or choking/gasping during sleep Denies having high blood pressure Patient 50 years old or younger STOP-Bang Score: 2 [id number] Score: Age: <65 Sex: male [id number] Score: ARISCAT Score: Age: <=50 Preoperative SpO2: >=96% Preoperative anemia: Yes Duration of surgery: 2-3 hrs Emergency procedure: No ARISCAT Score: ANESTHESIA FINDINGS: Intubation History: No history of difficult intubation. No abnormal airway history Significant Anesthesia Considerations: none Airway History: No history of difficult airway No abnormal airway history I - PHYSICAL EVALUATION AIRWAY Patient intubated: No. Tracheostomy tube not present Mallampati: II. TM distance: >3 FB. Neck ROM: full ROM without neurological symptoms. Mouth opening: adequate. Short neck: no. Thick neck: yes Sparks present: yes Lip Bite Test: II DENTAL Dental findings: teeth intact. II - ANESTHESIA PLAN Anesthetic plan additional comments: *PACC/TCI - anesthesia choice. Beta Judy Monitoring Plan Post Procedure Analgesic Plan Prepared for surgery: This patient is optimally prepared for surgery pending LABS. CONSULTS: Patient does not require consults for optimization at this time. The Following Tests/Procedures Have Been Initiated: Orders Placed This Encounter Type and Screen, 30 day Standing Status: Future Standing Expiration Date: 09/28/2024 Scheduling Instructions: A 30-day Type and Screen test has been ordered for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 directed buprenorphine-naloxone (SUBOXONE) 8-2 mg film dissolve 1 film under the tongue twice a day buPROPion XL (WELLBUTRIN XL) 300 mg 24 hr tablet 1 tablet in the morning Once a day Orally 30 day(s) amphetamine-dextroamphetamine XR (ADDERALL XR) 25 mg 24 hr capsule Take by mouth every morning. amphetamine-dextroamphetamine 15 mg tablet TAKE 1 TABLET BY MOUTH EVERY DAY IN THE EVENING dronabinol (MARINOL) 5 mg capsule TAKE 1 CAPSULE in the evening or bedtime QUEtiapine XR (SEROQUEL XR) 300 mg 24 hr tablet Take 300 mg by mouth daily at bedtime. Pregabalin (LYRICA) 200 mg capsule Take 200 mg by mouth three times daily. ALPRAZolam (XANAX) 1 mg tablet Take 1 tablet by mouth three times daily as needed for Anxiety. (Patient taking differently: Take 1 mg by mouth four times a day as needed for anxiety.) pantoprazole 40 mg tablet Take 1 tablet by mouth twice daily before meals. B Complex-Vitamin C-Folic Acid 0.5 mg Tab Take 1 tablet by mouth once daily. Ferrous Sulfate (IRON) 325 mg (65 mg iron) ORAL tablet Take 1 tablet by mouth twice daily. eszopiclone (LUNESTA) 3 mg ORAL Tab Take 1 tablet by mouth at bedtime as needed. for insomnia. loperamide (IMODIUM) 2 mg cap(s) Take 1 capsule by mouth four times a day as needed. No current facility-administered medications for this visit. ALLERGIES Allergen Reactions Amoxicillin Rash Cefuroxime Diarrhea Darvon [Propoxyphen* Rash, Itching facial flushing, blurred vision Iodinated Contrast * Intolerance Pt sneezes several times after CT contrast, no itching. This is not an allergic reaction, just a intolerance.Pt also has other health conditions that may also be leading to these symptoms Morphine Hives REVIEW OF SYSTEMS: General: No weight loss, malaise or fevers. Neuro: No history of TIA's, stroke, HAND INSPECTOR tumor, impaired sensorium, hemiplegia, paraplegia or quadriplegia. No neurological symptoms or problems. Respiratory: No history of current cough or dyspnea, or pneumonia in the past 6 weeks. No history of respiratory/pulmonary symptoms or problems. Cardiovascular: No history of HTN requiring medication, no history of angina, CHF, CA, cardiac surgery or stents. Denies rest pain, gangrene or revascularization/amputation for PVD. No history of cardiovascular symptoms or problems. GI: GERD, Nausea, Abdominal pain : No history of UTI in past 6 weeks. No history of renal failure. Not currently on or requiring dialysis. No history of symptoms or problems. 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 Has not taken steroids within the past 30 days. No history of endocrinological symptoms or problems. Hematology: No history of bleeding or clotting disorder. No history of hematological symptoms or problems. Oncology: No history of CA metastasis, chemo within 30 days, or radiotherapy within 90 days. No history of oncological symptoms or problems. Psych: No history of psychiatric symptoms or problems. Skin: Negative for lesions, rash, and itching. Objective PHYSICAL EXAM: Patient reported BP 138/91 Pulse 89 Temp 36.9 C (98.4 F) (Temporal) Ht 188 cm (6' 2 ) Wt 129.3 kg (285 lb) BMI 36.59 kg/m General - Normal, healthy, cooperative, in no acute distress Psych - ORIENTATION: normal to time place, person and situation Mood/Affect: AFFECT AND MOOD: Normal Head/Neuro - Normal size and shape Facial appearance normal Pulmonary - respiratory effort normal Cardiovascular - patient describes extremities normal, warm, no cyanosis,no clubbing, and no edema Abdominal - soft, not distended Visible protrusions or hernias: Abdominal bulge with diastasis in the upper abdomen Incisions/scars: Healed, Skin - abnormal lesions not visualized Motor - patient seen sitting with Normal appearing strength and coordination DATA: Diagnostic tests reviewed for today's visit: Most recent labs Hemoglobin (g/dL) Date Value 05/21/2024 16.2 10/08/2021 14.3 Hematocrit (%) Date Value 05/21/2024 49.8 10/08/2021 44.6 WBC (k/uL) Date Value 05/21/2024 7.19 10/08/2021 6.88 Platelet Count (k/uL) Date Value 05/21/2024 156 10/08/2021 179 Latest Ref Rng & Units 05/21/2024 09/12/2023 10/08/2021 BMP Glucose 74 - 99 mg/dL 92 106 90 BUN 9 - 24 mg/dL 14 11 9 Creatinine 0.73 - 1.22 mg/dL 1.01 1.04 0.97 Sodium 136 - 144 mmol/L 133 137 146 Potassium 3.7 - 5.1 mmol/L 4.1 4.7 3.8 Chloride 98 - 107 mmol/L 99 102 110 CO2 22 - 30 mmol/L 20 22 26 Anion Gap 8 - 15 mmol/L 14 13 10 Calcium 8.5 - 10.2 mg/dL 10.2 9.6 8.8 EGFR >=60 mL/min/1.73m 101 98 >60 EGFR- >60 EGFR-All Other Races . >60 Most recent imaging CTE 2023 Persistent but improved mild changes of active inflammatory small bowel Crohn's disease with luminal narrowing involving the neoterminal ileum. Scattered fluid-filled upstream small bowel loops, some which are mildly dilated, similar to prior. Penetrating: Absent Hepatic steatosis. RUQ US 2022 Impression: Hepatomegaly. Hepatic steatosis. Assessment/Plan IMPRESSION: Patient Active Problem List Crohn's disease (HCC) HCV (hepatitis C virus) Obesity, Class II, BMI 35-39.9 Clostridioides difficile infection Attention deficit hyperactivity disorder (ADHD) Gastroesophageal reflux disease Opioid dependence (HCC) Moderate protein-calorie malnutrition (HCC) Bipolar 1 disorder (HCC) Anxiety Abnormal ECG S/P colectomy S/P ileostomy (HCC) Resolved Hospital Problems No resolved problems to display. Mr. Momin is a 34 year old male referred to me for evaluation of an abdominal bulge with symptoms of pain and GERD. PLAN/RECOMMENDATIONS: - Small ventral hernias that may be unrelated to his discomfort keeping him out of work - I am referring him to my partner, Dr. Ballard, today since he has driven a far distance for an opinion regarding complex hernia repair. Medical Decision Making: Problems: Moderate: New problem with uncertain prognosis Data: Unique test result(s) reviewed: 3+ Independent interpretation of test from other physician/QHCP Medical Decision Making Level: 4 - Moderate SIGNATURE: Jayleen Becker MD PATIENT NAME: Angelita Momin DATE: June 15, 2024 TIME: 5:30 AM PAGER/CONTACT #: documented in this encounter [facility] 06-08-2024 Note [facility] 06-08-2024 History of Presen t illness Narrative Telephone encounter, 20 minutes, patient agreed I have communicated my name and active licensure. The patient's identity and physical location were verified at the time of this visit. Either the patient or their legal hr representative has been informed of the risks and benefits of -- and alternatives to -- treatment through a remote evaluation and consents to proceed with the evaluation remotely. This 34 year with Crohn's disease, s/p subtotal colectomy with ileoanal anastomosis in 2014, complicated by SBO due to adhesions. No therapy since. 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 Hx of opioid use on suboxo .now still with diarrhea, but down to about 3 bm daily. gained 100# in the last 3 months. Large midline incisional hernia being repaired 06/30/24. Diarrhea - will rec a low FODMAP diet and imodium up to 4 per day. MyChart follow up.. documented in this encounter [facility] 05-28-2024 Note HNO ID: [id number] Author: ADOLFO BALLARD MD Service: ? Author Type: Physician Type: Progress Notes Filed: 06/02/2024 09:39 Note Text: Consultation requested by Dr. Jayleen Becker for an opinion regarding hernia. My final recommendations will be communicated back to the requesting physician by way of shared medical record or letter via US mail [facility] - HISTORY AND PHYSICAL Chief Complaint: hernia HPI: Angelita Momin is a 34 year old male with a PMHx significant for Crohn's who presents with upper midline ventral hernias seen on CT scan. He has abdominal discomfort , GERD, and noticed a bulge in the epigastrium. No skin changes. PAST MEDICAL HISTORY Diagnosis Date Bowel disease Cancer (HCC) Chronic obstructive pulmonary disease (COPD) (HCC) Congestive heart failure (HCC) Crohn's 2007 History of transfusion Pneumonia 03/21/2010 SBO (small bowel obstruction) ([facility]) 11/06/2015 - CT : bowl obstruction with transition point at the [facility] -NPO -IVF -pain control -Phenergen for n/v -for flex sig -f/u CORS Spontaneous pneumothorax 03/2008 Syncope 09/06/2012 DD includes Vasovagal syncope related to pain Plan Telemetry Echo Pain control Utox PAST SURGICAL HISTORY Procedure Laterality Date Bowel length per surgical history 02/16/2010 >200 cm small bowel to ileostomy; no colon remaining, no ICV; NIRAJ, +rectum/anus out of continuity CLOSURE ENTEROSTOMY LG/SMALL INTESTINE 08/31/2010 Performed by FRANCO GARCIA at [facility] PAST SURGICAL HISTORY OF 03/2008 2 lung surgeries for pneuothorax in March 2008. (Video-assisted throacopic surgery with stapling of blebs and pleural adhesions with talc insufflation. PAST SURGICAL HISTORY OF 02/16/2010 total abdominal colectomy with ileorectal anastamosis and loop ileostomy; pathology: 57 cm length of colon, attached 7.5 cm terminal ileum, 5.2 cm appendix Social History Tobacco Use Smoking status: Every Day Packs/day: 0.50 Years: 5.00 Additional pack years: 0.00 Total pack years: 2.50 Types: Cigarettes Smokeless tobacco: Never Substance Use Topics Alcohol use: Yes Drug use: No Additional social history not relevant to the patient's HPI No family history on file. Additional family history not relevant to the patient's HPI ALLERGIES Allergen Reactions Amoxicillin Rash Cefuroxime Diarrhea Darvon [Propoxyphen* Rash, Itching facial flushing, blurred vision Iodinated Contrast * Intolerance Pt sneezes several times after CT contrast, no itching. This is not an allergic reaction, just a intolerance.Pt also has other health conditions that may also be leading to these symptoms Morphine Hives Current Outpatient Medications Medication Sig Dispense Refill albuterol HFA (PROAIR HFA) 90 mcg/actuation inhaler 2 Puffs every 6 hours as needed for wheezing/shortness of breath. Take as directed 1 Each 0 buprenorphine-naloxone (SUBOXONE) 8-2 mg film dissolve 1 film under the tongue twice a day buPROPion XL (WELLBUTRIN XL) 300 mg 24 hr tablet 1 tablet in the morning Once a day Orally 30 day(s) amphetamine-dextroamphetamine XR (ADDERALL XR) 25 mg 24 hr capsule Take by mouth every morning. amphetamine-dextroamphetamine 15 mg tablet TAKE 1 TABLET BY MOUTH EVERY DAY IN THE EVENING dronabinol (MARINOL) 5 mg capsule TAKE 1 CAPSULE in the evening or bedtime QUEtiapine XR (SEROQUEL XR) 300 mg 24 hr tablet Take 300 mg by mouth daily at bedtime. Pregabalin (LYRICA) 200 mg capsule Take 200 mg by mouth three times daily. ALPRAZolam (XANAX) 1 mg tablet Take 1 tablet by mouth three times daily as needed for Anxiety. (Patient taking differently: Take 1 mg by mouth four times a day as needed for anxiety.) 21 tablet 0 pantoprazole 40 mg tablet Take 1 tablet by mouth twice daily before meals. 30 tablet 0 B Complex-Vitamin C-Folic Acid 0.5 mg Tab Take 1 tablet by mouth once daily. 30 tablet 0 Ferrous Sulfate (IRON) 325 mg (65 mg iron) ORAL tablet Take 1 tablet by mouth twice daily. 200 tablet 5 eszopiclone (LUNESTA) 3 mg ORAL Tab Take 1 tablet by mouth at bedtime as needed. for insomnia. 30 tablet 5 hydrOXYzine HCl (ATARAX) 25 mg tablet 1 tablet Q6 hours as needed for itch Orally up to every 6 hrs as needed for itch for 10 days (Patient not taking: Reported on 09/17/2023) naloxone 4 mg/actuation nasal spray (NARCAN) use as directed for opioid overdose symptoms if not already Rx'd by Dr Powell Nasally Q 2 minutes as directed for 30 days ondansetron (ZOFRAN) 8 mg tablet 1 tablet as needed Orally Once a day for 30 day(s) benzonatate (TESSALON PERLE) 100 mg capsule Take 100 mg by mouth three times daily as needed. (Patient not taking: Reported on 09/17/2023) therapeutic multivitamin ORAL tablet Take 1 tablet by mouth twice daily. (Patient not taking: Reported on 09/17/2023) 120 tablet 2 No current facility-administered medications for this visit. REVIEW OF SYSTEMS GI: No nause (more content not included)... [facility] 05-28-2024 History of Presen t illness Narrative Consultation requested by Dr. Jayleen Becker for an opinion regarding hernia. My final recommendations will be communicated back to the requesting physician by way of shared medical record or letter via US mail [facility] - HISTORY AND PHYSICAL Chief Complaint: hernia HPI: Angelita Momin is a 34 year old male with a PMHx significant for Crohn's who presents with upper midline ventral hernias seen on CT scan. He has abdominal discomfort , GERD, and noticed a bulge in the epigastrium. No skin changes. PAST MEDICAL HISTORY Diagnosis Date Bowel disease Cancer (HCC) Chronic obstructive pulmonary disease (COPD) (HCC) Congestive heart failure (HCC) Crohn's 2007 History of transfusion Pneumonia 03/21/2010 SBO (small bowel obstruction) ([facility]) 11/06/2015 - CT : bowl obstruction with transition point at the [facility] -NPO -IVF -pain control -Phenergen for n/v -for flex sig -f/u CORS Spontaneous pneumothorax 03/2008 Syncope 09/06/2012 DD includes Vasovagal syncope related to pain Plan Telemetry Echo Pain control Utox PAST SURGICAL HISTORY Procedure Laterality Date Bowel length per surgical history 02/16/2010 >200 cm small bowel to ileostomy; no colon remaining, no ICV; NIRAJ, +rectum/anus out of continuity CLOSURE ENTEROSTOMY LG/SMALL INTESTINE 08/31/2010 Performed by FRANCO GARCIA at [facility] PAST SURGICAL HISTORY OF 03/2008 2 lung surgeries for pneuothorax in March 2008. (Video-assisted throacopic surgery with stapling of blebs and pleural adhesions with talc insufflation. PAST SURGICAL HISTORY OF 02/16/2010 total abdominal colectomy with ileorectal anastamosis and loop ileostomy; pathology: 57 cm length of colon, attached 7.5 cm terminal ileum, 5.2 cm appendix Social History Tobacco Use Smoking status: Every Day Packs/day: 0.50 Years: 5.00 Additional pack years: 0.00 Total pack years: 2.50 Types: Cigarettes Smokeless tobacco: Never Substance Use Topics Alcohol use: Yes Drug use: No Additional social history not relevant to the patient's HPI No family history on file. Additional family history not relevant to the patient's HPI ALLERGIES Allergen Reactions Amoxicillin Rash Cefuroxime Diarrhea Darvon [Propoxyphen* Rash, Itching facial flushing, blurred vision Iodinated Contrast * Intolerance Pt sneezes several times after CT contrast, no itching. This is not an allergic reaction, just a intolerance.Pt also has other health conditions that may also be leading to these symptoms Morphine Hives Current Outpatient Medications Medication Sig Dispense Refill albuterol HFA (PROAIR HFA) 90 mcg/actuation inhaler 2 Puffs every 6 hours as needed for wheezing/shortness of breath. Take as directed 1 Each 0 buprenorphine-naloxone (SUBOXONE) 8-2 mg film dissolve 1 film under the tongue twice a day buPROPion XL (WELLBUTRIN XL) 300 mg 24 hr tablet 1 tablet in the morning Once a day Orally 30 day(s) amphetamine-dextroamphetamine XR (ADDERALL XR) 25 mg 24 hr capsule Take by mouth every morning. amphetamine-dextroamphetamine 15 mg tablet TAKE 1 TABLET BY MOUTH EVERY DAY IN THE EVENING dronabinol (MARINOL) 5 mg capsule TAKE 1 CAPSULE in the evening or bedtime QUEtiapine XR (SEROQUEL XR) 300 mg 24 hr tablet Take 300 mg by mouth daily at bedtime. Pregabalin (LYRICA) 200 mg capsule Take 200 mg by mouth three times daily. ALPRAZolam (XANAX) 1 mg tablet Take 1 tablet by mouth three times daily as needed for Anxiety. (Patient taking differently: Take 1 mg by mouth four times a day as needed for anxiety.) 21 tablet 0 pantoprazole 40 mg tablet Take 1 tablet by mouth twice daily before meals. 30 tablet 0 B Complex-Vitamin C-Folic Acid 0.5 mg Tab Take 1 tablet by mouth once daily. 30 tablet 0 Ferrous Sulfate (IRON) 325 mg (65 mg iron) ORAL tablet Take 1 tablet by mouth twice daily. 200 tablet 5 eszopiclone (LUNESTA) 3 mg ORAL Tab Take 1 tablet by mouth at bedtime as needed. for insomnia. 30 tablet 5 hydrOXYzine HCl (ATARAX) 25 mg tablet 1 tablet Q6 hours as needed for itch Orally up to every 6 hrs as needed for itch for 10 days (Patient not taking: Reported on 09/17/2023) naloxone 4 mg/actuation nasal spray (NARCAN) use as directed for opioid overdose symptoms if not already Rx'd by Dr Powell Nasally Q 2 minutes as directed for 30 days ondansetron (ZOFRAN) 8 mg tablet 1 tablet as needed Orally Once a day for 30 day(s) benzonatate (TESSALON PERLE) 100 mg capsule Take 100 mg by mouth three times daily as needed. (Patient not taking: Reported on 09/17/2023) therapeutic multivitamin ORAL tablet Take 1 tablet by mouth twice daily. (Patient not taking: Reported on 09/17/2023) 120 tablet 2 No current facility-administered medications for this visit. REVIEW OF SYSTEMS GI: No nausea, vomiting, or diarrhea and See HPI The remainder of the 12 review of systems is negative other than what was mentioned in the HPI and above. There were no vitals taken for this visit. Physical findings of this patient are as follows Physical Exam Constitutional: The patient is well-developed, well-nourished, and in no distress. Head: Normocephalic and atraumatic. Eyes: EOM are normal. Neck: Normal range of motion. Neck supple. Cardiovascular: Regular rhythm Pulmonary/Chest: Effort normal, non-labored Abdominal: Soft. Small reducible midline defects with an associated rectus diastasis Musculoskeletal: Normal range of motion. Neurological: He is alert. GCS score is 15. Skin: Skin is warm and dry. Psychiatric: Affect and judgment normal. LABS: Hemoglobin (g/dL) Date Value 05/21/2024 16.2 10/08/2021 14.3 Hematocrit (%) Date Value 05/21/2024 49.8 10/08/2021 44.6 WBC (k/uL) Date Value 05/21/2024 7.19 10/08/2021 6.88 Platelet Count (k/uL) Date Value 05/21/2024 156 10/08/2021 179 CMP: Glucose 92 05/21/2024 BUN 14 05/21/2024 Creatinine 1.01 05/21/2024 Sodium 133 05/21/2024 Potassium 4.1 05/21/2024 Chloride 99 05/21/2024 CO2 Content, Venous 20 05/21/2024 Protein, Total 7.9 05/21/2024 Albumin 4.9 05/21/2024 Calcium 10.2 05/21/2024 Alkaline Phosphatase 119 05/21/2024 Bilirubin, Total 1.3 05/21/2024 AST 108 05/21/2024 ALT 156 05/21/2024 IMAGING - CT enterography - 05/21/24, multiple small fat containing defects along the midline with an associated diastasis. It also has some active bowel inflammation. Assessment: Angelita Momin is a 34 year old male who presents with multiple small hernia defects and an associated diastasis. He is convinced this is causing him his abdominal pain. He was also told by GI that he should get the hernia repaired. I reviewed his CT scan with him and there are hernias but they ar small. I can repair the hernias with preperitoneal mesh but I did warn that repairing the hernia s may not improve his abdominal complaints. He understands and wants to proceed with urgery. Plan: Open preperitoneal/retromuscular ventral hernia repair with mesh. Medical Decision Making: Problems: Moderate: New problem with uncertain prognosis Data: Unique source(s) for external note(s) reviewed: 3+ Unique test result(s) reviewed: 1 Independent interpretation of test from other physician/QHCP Risk: Moderate: Decision on elective major surgery w/o risk factors Medical Decision Making Level: 4 - Moderate documented in this encounter [facility] 05-28-2024 Nurse Note What is the reason for your visit today? Consultation Who is your referring physician? Dr. Rhys Becker MD Are you having poor oral intake? YES Have you had unintentional weight loss of 15 lbs/7 Kg in the last 3-6 months? NO Bowels: Constipated to Diarrhea Wound: N/ a Temperature: No Drains: No patient declined yanni Cummings MA May 28, 2024 10:03 AM [facility] 05-28-2024 Nurse Note What is the reason for your visit today? Consultation Who is your referring physician? Dr. Rhys Becker MD Are you having poor oral intake? YES Have you had unintentional weight loss of 15 lbs/7 Kg in the last 3-6 months? NO Bowels: Constipated to Diarrhea Wound: N/ a Temperature: No Drains: No patient declined yanni Cummings MA May 28, 2024 10:03 AM documented in this encounter [facility] 05-28-2024 Nurse Note What is the reason for your visit today? incisional hernia Who is your referring physician? LIZET Anton Are you having poor oral intake? NO Have you had unintentional weight loss of 15 lbs/7 Kg in the last 3-6 months? NO Bowels: regular \ patient declined gate keeper Freida Gonzalez LPN [facility] 05-28-2024 Nurse Note What is the reason for your visit today? incisional hernia Who is your referring physician? LIEZT Anton Are you having poor oral intake? NO Have you had unintentional weight loss of 15 lbs/7 Kg in the last 3-6 months? NO Bowels: regular \ patient declined gate keeper Freida Gonzalez LPN documented in this encounter [facility] 05-21-2024 History of Presen t illness Narrative Radiology Service Progress Note DATE OF SERVICE: May 21, 2024 TIME: 1:13 PM PATIENT WEIGHT: 279LBS PATIENT IDENTITY VERIFICATION COMPLETED USING TWO (2) STANDARD IDENTIFIERS: Name and Date of confirmed by patient verbally. FALL SCREENING: Has the patient had 2 falls in the last year or 1 fall with injury or currently using an Ambulatory Assistive Device (Walker, Cane, Wheelchair, Crutches, etc.)? No PATIENT GENDER DATA: Male ALLERGIES: Reviewed and unchanged CONTRAST ALLERGY: No EXAM: CT -CONTRAST INDUCED NEPHROPATHY RISK FACTORS: History of Kidney surgery, Kidney neoplasm, Liver disease, and/or any recent Nephrotoxic Chemotherapy or other Nephrotoxic medications CREATININE: Creatinine Date Value Ref Range Status 09/12/2023 1.04 0.73 - 1.22 mg/dL Final 10/08/2021 0.97 0.73 - 1.22 mg/dL Final 07/17/2021 1.02 0.73 - 1.22 mg/dL Final Estimated Glomerular Filtration Rate Date Value Ref Range Status 09/12/2023 98 >=60 mL/min/1.73m Final Comment: Estimated Glomerular Filtration Rate (eGFR) is calculated using the 2020 CKD-EPI creatinine equation. This equation utilizes serum creatinine, sex, and age as parameters. The creatinine assay has traceable calibration to isotope dilution-mass spectrometry. Refer to KDIGO guidelines for clinical interpretation. In patients with unstable renal function, e.g. those with acute kidney injury, the eGFR may not accurately reflect actual GFR. eGFR- Date Value Ref Range Status 10/08/2021 >60 Final P.O.C.T. RESULTS: POC done: Yes, See Lab Tab May 21, 2024 TREATMENT: N/A and No Hydration needed. IV SITE: Ambulatory: A peripheral IV was started in the Right antecubital site with a Angio cath: 22 gauge. and A Saline lock was inserted per protocol IV SITE APPEARANCE: Clean,Dry and Intact SIGNATURE: Jannie Caraballo RN PATIENT NAME: Angelita Momin DATE: May 21, 2024 TIME: 1:13 PM Radiology Service Progress Note PATIENT NAME: Angelita Momin DATE OF SERVICE: May 21, 2024 TIME: 2:50 PM PATIENT IDENTITY VERIFICATION COMPLETED USING TWO (2) IDENTIFIERS: Name and Date of confirmed by patient verbally. FALL SCREENING: Has the patient had 2 falls in the last year or 1 fall with injury or currently using an Ambulatory Assistive Device (Walker, Cane, Wheelchair, Crutches, etc.)? No PATIENT GENDER DATA: Male PATIENT RELEVANT IMPLANT DATA REVIEWED: Not Applicable PATIENT PRESENTS WITH AN IMPLANTABLE OR ATTACHED LICENSED PSYCHOLOGIST DIRECTOR: No RADIOLOGY DEPARTMENT: CT; Exam(s) Completed: Enterography PERIPHERAL IV DATA: Not applicable SIGNED BY: RT Patrick(R) May 21, 2024 2:50 PM documented in this encounter [facility] 05-21-2024 Note [facility] 05-21-2024 Note [facility] 05-21-2024 History of Presen t illness Narrative Radiology Service Progress Note DATE OF SERVICE: May 21, 2024 TIME: 1:05 PM PATIENT WEIGHT: 279LBS PATIENT IDENTITY VERIFICATION COMPLETED USING TWO (2) STANDARD IDENTIFIERS: Name and Date of confirmed by patient verbally. FALL SCREENING: Has the patient had 2 falls in the last year or 1 fall with injury or currently using an Ambulatory Assistive Device (Walker, Cane, Wheelchair, Crutches, etc.)? No PATIENT GENDER DATA: Male ALLERGIES: Reviewed and unchanged CONTRAST ALLERGY: No EXAM: CT -CONTRAST INDUCED NEPHROPATHY RISK FACTORS: History of Kidney surgery, Kidney neoplasm, Liver disease, and/or any recent Nephrotoxic Chemotherapy or other Nephrotoxic medications CREATININE: Creatinine Date Value Ref Range Status 09/12/2023 1.04 0.73 - 1.22 mg/dL Final 10/08/2021 0.97 0.73 - 1.22 mg/dL Final 07/17/2021 1.02 0.73 - 1.22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 warranty or guarantee of the accuracy or completeness of information in this document.
--- NOTE | 2024-07-20 03:38 | ED.ABDPAIN1 ---
HPI - Abdominal Pain General Chief Complaint: Abdominal Pain Stated Complaint: ABD PAIN Time Seen by Provider: 07/20/24 03:26 Mode of arrival: ambulance Limitations: no limitations History of Present Illness HPI narrative: 34-year-old male presents to the emergency department for a chief complaint of abdominal pain. He states that he had surgery in [place] on June 30 and the pain never went away. He is not on any pain medications at home. He states that they wanted to keep him in the hospital but he 8 days early. He reports he did not leave AMA. The pain is moderate to severe and continuous and has not changed in 3 weeks. No fever constipation or diarrhea. He states that he smokes marijuana and no other drugs are in his system and he did not drink alcohol tonight. Related Data Home Medications ?Medication ?Instructions ?Recorded ?Confirmed albuterol sulfate 90 mcg/actuation 1 puff inhalation Q4H PRN 06/06/23 06/06/23 aerosol inhaler (Ventolin HFA) shortness of breath or wheezing alprazolam 0.5 mg tablet 1 mg PO QID 06/06/23 01/22/24 buprenorphine 8 mg-naloxone 2 mg 2 film sublingual DAILY 06/06/23 01/22/24 sublingual film dextroamphetamine-amphetamine 15 15 mg PO DAILY 06/06/23 01/22/24 mg tablet dextroamphetamine-amphetamine ER 25 mg PO DAILY 06/06/23 01/22/24 25 mg 24hr capsule,extend release dronabinol 5 mg capsule 5 mg PO DAILY 06/06/23 01/22/24 pregabalin 200 mg capsule 200 mg PO Q8H 06/06/23 01/22/24 Previous Rx's ?Medication ?Instructions ?Recorded clindamycin HCl 150 mg capsule 450 mg (3 x 150 mg) PO TID 7 days 06/06/23 #63 caps Allergies Allergy/AdvReac Type Severity Reaction Status Date / Time No Known Drug Allergies Allergy Verified 07/20/24 03:28 Review of Systems ROS Narrative A ten point review of systems is negative except as noted above. PFSH PFSH Social History Smoking status: Current every day smoker Exam Narrative Exam Narrative: Nurses note and vital signs reviewed and patient is not hypoxic. General: The patient appears slightly drowsy and is in no respiratory distress Skin: Warm, dry, no pallor noted. There is no rash noted. Head: Normocephalic, atraumatic Eye: Normal conjunctiva, no drainage Ears, Nose, Mouth, and Throat: oral mucosa is moist. Nares patent. Mouth without vesicles. Ear canals patent. Tm's without Erythema Cardiovascular: Regular Rate and Rhythm Respiratory: Patient is in no distress, no accessory muscle use, lungs are clear to auscultation, no wheezing, rales or rhonchi Back: non-tender, no CVA tenderness bilaterally to percussion. GI: Normal bowel sounds, no tenderness to palpation, no masses appreciated. No rebound, guarding, or rigidity noted. Musculoskeletal: The patient has no evidence of calf tenderness, no pitting edema, symmetrical pulses noted bilaterally Neurological: A&O x4, speech is slightly slurred. Upper and lower extremity strength intact Psychiatric: Not uncooperative. He frequently rambles when asked questions and talks about off subject ideas. 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 He states that [employer] does have a medical school even though it clearly does not. He states he wants spent 1000 days in the hospital, continuously. Constitutional Vital Signs, click to edit/add: Last Vital Signs Temp 97.8 F 07/20/24 03:24 Pulse 94 H 07/20/24 03:24 Resp 18 07/20/24 03:24 BP 124/97 H 07/20/24 03:24 Pulse Ox 95 07/20/24 03:24 O2 Del Method Room Air 07/20/24 03:24 Course Vital Signs Vital signs: Vital Signs Temperature 97.8 F 07/20/24 03:24 Pulse Rate 94 H 07/20/24 03:24 Respiratory Rate 18 07/20/24 03:24 Blood Pressure 124/97 H 07/20/24 03:24 Pulse Oximetry 95 07/20/24 03:24 Oxygen Delivery Method Room Air 07/20/24 03:24 Temperature 97.8 F 07/20/24 03:24 Pulse Rate 94 H 07/20/24 03:24 Respiratory Rate 18 07/20/24 03:24 Blood Pressure 124/97 H 07/20/24 03:24 Pulse Oximetry 95 07/20/24 03:24 Oxygen Delivery Method Room Air 07/20/24 03:24 MDM - Abdominal Pain MDM Narrative Medical decision making narrative: The plan was to do testing on him including CAT scan and blood work but he suddenly decided to leave and is fully able to make medical decisions on his own. Differential Diagnosis Differential diagnosis: Likely abdominal pain, calculus of kidney, constipation, diverticulitis, gastroenteritis, pancreatitis and small bowel obstruction Discharge Plan Discharge Stand Alone Forms: Portal Instructions Chief Complaint: Abdominal Pain Clinical Impression: Abdominal pain Patient Disposition: Left Against Medical Advice Time of Disposition Decision: 03:42 Condition: Undetermined Mode of Transportation: Private Vehicle Prescriptions / Home Meds: No Action albuterol sulfate [Ventolin HFA] 90 mcg/actuation HFA aerosol inhaler 1 puff INHALATION Q4H PRN (Reason: shortness of breath or wheezing) alprazolam 0.5 mg tablet 1 mg PO QID buprenorphine-naloxone 8-2 mg film 2 film sublingual DAILY dextroamphetamine-amphetamine 15 mg tablet 15 mg PO DAILY dextroamphetamine-amphetamine 25 mg capsule,extended release 24hr 25 mg PO DAILY Rx Instructions: HS dronabinol 5 mg capsule 5 mg PO DAILY pregabalin 200 mg capsule 200 mg PO Q8H clindamycin HCl 150 mg capsule 450 mg PO TID 7 Days Qty: 63 0RF Print Language: Khmer Instructions: Abdominal Pain (ED) Referrals: Physician,Non-Staff, MD [Primary Care Provider] - 1 week
--- NOTE | 2024-07-20 03:44 | PC.NURSE ---
Upon entering patient room patient is saying I'm AMA , patient is rambling and stating that Pissed me off . present in room at time. Dr. Carson notified.
== END 2024-07-20 03:53 | disposition left against medical advice (07) ==
PROVIDERS: Emergency Provider Emergency Medicine
DX: R10.9 Unspecified abdominal pain (principal); F12.90 Cannabis use, unspecified, uncomplicated; F17.200 Nicotine dependence, unspecified, uncomplicated; Z53.29 Procedure and treatment not carried out because of patient's decision for other reasons
CPT/HCPCS: 80048; 80076; 80307; 80320; 81001; 82150; 83690; 99283

== ENCOUNTER 2025-03-02 05:02 | Emergency (ER) | payer OTHER, SELFPAY ==
[2025-03-02 05:09] VITALS: BP 198/100; PULSE 105; TEMP 36.5; O2SAT 99; BMI 38.5
--- OUTSIDE RECORDS SUMMARY | 2025-03-02 05:12 | XMS_ITS | CCD ---
Author Organization [facility] Care Team Providers Care Dope Pourer Name Role Phone No, Physician Unavailable Unavailable PHYSICIAN, EMERGENCY Unavailable Unavailable Physician, PCP Unknown Unavailable Unavailab PAULO Michel Attending Unavailabl e NO, PHYSICIAN Primary Care Unavailable SMITA, PHYSICIAN Primary Care Unavailable ADOLFO PUENTE Attending UnavailWil Leal Primary Care Provider Cruz Tesfaye Unavailable MISC, DR MORSE Primary Care Unavailable ASHVIN RIVERA Admitting Unavailable ASHVIN RIVERA Attending Unavailable REBEL, DR LUCY Joiner Consulting Unavailable ASHVIN RIVERA Consulting Unavailable MISAroldo, DR MORSE Primary Care Unavailable JUAN JOSÉ, DR FELI Joiner Admitting Unavailable JUAN JOSÉ, DR FELI Joiner Attending Unavailable JUAN JOSÉ, DR FELI Joiner Consulting Unavailable PHOENIX, KEMAR MENDOZA Consulting Unavailable ADOLFO HAIDER Consulting Unavailable MISC, DR MORSE Primary Care Unavailable ARMAND NGUYEN Admitting Unavailable WENDY, ARMAND Attending Unavailable ARMAND NGUYEN Consulting Unavailable MISC, DR MORSE Primary Care Unavailable JODI, DR LEE Admitting Unavailable JODI, DR LEE Attending Unavailable MARK, DR ADOLFO Jacome Consulting Unavailable JODI, DR LEE Consulting Unavailable Bob ([facility]), MD Chetan Kendrick Primary Care Provi mateo Carrington, [facility]- Rosi Carlson Emergency Provider Wil Goetz Primary Care Provider [phone] PITER MENESES Referring Unavailable WIL GOETZ Primary Care Unavailable Bob ([facility])MD Chetan Primary Care Provi mateo DO Ryland Kaminski Emergency Provider Bob ([facility])Chetan Primary Care Unava ilable Ryland Kaminski Attending Unavailable Ryland Kaminski Admitting Unavailable [facility] Primary Care Provider Bob LEWIS, Chetan Skidmore Primary Care Provider [facility] Primary Care Provider [phone] [facility], [facility] Primary Care Unavailable ADOLFO BALLARD Attending Unavailable CHARLEEN SILVER Attending Unavailable [facility] Unavaila ble [facility], [facility] Primary Care Unavailable LASHNER, RUSTY A Referring Unavailable [facility], [facility] Primary Care Unavailable LASHNER, RUSTY A Referring Unavailable LASHNER, RUSTY A Attending Unavailable [facility], [facility] Primary Care Unavailable REYNA ANTON Referring Unavailable PITER MENESES Attending Unavailable [facility], [facility] Primary Care Unavailable ADOLFO BALLARD Admitting Unavailable [facility], [facility] Primary Care Unavailable ADOLFO BALLARD Attending Unavailable [facility], [facility] Primary Care Unavailable REYNA ANTON Attending Unavailable PITER MENESES Referring Unavailable [facility], [facility] Primary Care Unavailable REYNA ANTON Attending Unavailable [facility], [facility] Primary Care Unavailable LASHNER, RUSTY A Referring Unavailable [facility], [facility] Primary Care Unavailable JOSSELINEER, RUSTY A Referring Unavailable RENEE PEARCE Referring Unavailable [facility] Unavaila RENEE Deleon Referring Unavailable [facility] Unavaila JAYLEEN Hansen Attending Unavailable [facility], [facility] Primary Care Unavailable REYNA ANTON Referring Unavailable ADOLFO BALLARD Attending Unavailable [facility] Unavaila ble RENEE PEARCE Referring Unavailable [facility] Primary Care Unavaila ble Allergies Allergy Classification Reported Allergen(s) Allergy Type Date of Onset Reaction(s) Facility Cephalosporins (antibiotic) (1 source) Cefuroxime Drug Allergy 10-19-20 18 Diarrhea [facility] Opioid Agonists (2 sources) Propoxyphene Drug Allergy 02-06-20 10 Rash, Itching, Hives [facility] Work Phone: Penicillins (antibiotic) (1 source) Amoxicillin Drug Allergy 09-17-20 20 Rash [facility] (2 sources) Aspirin / oxyCODONE Hydrochloride / oxyCODONE terephthalate; Translations: [OXYCODONE KNL-FQYAQOCRO-KG A] Drug Allergy 08-31-20 10 Rash [facility] (20 sources) Propoxyphene; Translations: [PROPOXYPHENE HCL] Drug Allergy 02-06-20 10 Rash, Itching [facility] Work Phone: (5 sources) Aspirin / oxyCODONE Drug Allergy Unknown Adyen Other (20 sources) Amoxicillin; Translations: [AMOXICILLIN] Drug Allergy 09-17-20 20 Rash [facility] (20 sources) Cefuroxime; Translations: [CEFUROXIME] Drug Allergy 10-19-20 18 Diarrhea [facility] (20 sources) Morphine; Translations: [MORPHINE] Drug Allergy 09-02-20 18 Hives [facility] (1 source) Aspirin Drug Allergy 02-08-20 [facility] (1 source) oxyCODONE Drug Allergy 02-08-20 [facility] (18 sources) Iodinated Contrast Media; Translations: [IODINATED CONTRAST MEDIA] Drug Intolerance 05-21-20 24 Intolerance [facility] Medications Current Medications Medication Drug Class(es) Dates Sig (Normalized) Sig (Original) [id number] 200 actuat albuterol 0.09 mg/actuat metered dose [...] days naloxone 4 mg/actuation nasal spray (NARCAN) (12 sources) Start: 07-08-20 24 naloxone 4 mg/actuation [...] daily. valproic acid 250 mg oral capsule (7 sources) Mood Stabilizer, Anti-epileptic Agent Start: 07-08-2024 [...] by mouth every six hours Hydrocodone-Acetami nophen ([place]) 5-325 mg Tablet Discontinued 1 TAB PO [...] Comment on above: Take 1 tablet by naav th once daily. benzonatate 100 mg oral [...] omeprazole 40 mg delayed release oral capsule (19 sources) Proton Pump Inhibitor Start: 09-28-2020 take [...] Date Documented Da te Episodic/Chronic Abdominal hernia (16 sources) Unspecified abdominal hernia without obstruction or [...] cough] 01-31-2021 Episodic Other nervous system disorders (11 sources) Postoperative pain ; Translations: [Other acute postprocedural pain] Onset: 4 07-08-2024 Episodic Other nervous system disorders (1 source) Other acute postprocedural pain; Translations: [Post-operative pain] Onset: 4 Episodic Other nutritional; endocrine; and metabolic disorders (14 sources) Obese class II; Translations: [Obesity, unspecified] [...] Resolved: 3 11-26-2021 Chronic Residual codes; unclassified (10 sources) Harmful pattern of use of nicotine; [...] uncomplicated] Onset: 1 07-15-2021 Chronic Substance-related disorders (16 sources) Opioid withdrawal; Translations: [Opioid use, unspecified [...] 1 07-17-2021 Episodic Fluid and electrolyte disorders (20 sources) Severe dehydration; Translations: [Dehydration] Onset: 5 Resolved: 3 11-06-2015 Episodic Hepatitis (20 sources) Viral hepatitis C; Translations: [Unspecified viral hepatitis C without hepatic coma] Onset: 2 11-26-2021 Episodic Immunizations and screening for infectious disease (5 sources) Interferon gamma assay result indeterminate; Translations: [Nonspecific reaction to cell mediated immunity measurement of gamma interferon antigen response without active tuberculosis] Episodic Intestinal obstruction without hernia (20 sources) Small bowel obstruction; Translations: [Unspecified intestinal obstruction, unspecified as to partial versus complete obstruction] Onset: 5 Resolved: 4 11-26-2021 Episodic Joint disorders and dislocations; trauma-related (2 sources) Other tear of medial meniscus, current injury, right knee, initial encounter Onset: 2 Resolved: 2 Episodic Other aftercare (1 source) Other usp (current) drug therapy; Translations: [[employer] CURRENT DRUG THERAPY] Onset: 2 Episodic Other gastrointestinal disorders (20 sources) Loose stool; Translations: [Other fecal abnormalities] [...] caused by tuberculosis or sexually transmitted disease) (20 sources) Pneumonia; Translations: [Pneumonia, unspecified organism] Onset: 0 Resolved: 3 09-12-2023 Episodic Residual codes; unclassified (20 sources) History of colectomy; Translations: [Acquired absence of other specified parts of digestive tract] Onset: 0 11-06-2015 Episodic Residual codes; unclassified (20 sources) Generalized aches and pains; Translations: [Pain, [...] PART DIGESTV TRACT] Onset: 2 Episodic Syncope (20 sources) Syncope; Translations: [Syncope and collapse] Onset: 2 Resolved: 3 09-12-2023 Episodic Unclassified (1 source) ILL Onset: 8 Unclassified (20 sources) SUMMARY Onset: 5 Resolved: 3 11-26-2021 Results Test Name Value Interpretation Reference Range Facility [facility] 08-12-2024 CNPN Normal [facility] CNPNon 07-26-2024 CNPN Normal [facility] CNOVon 07-19-2024 CNOV Normal [facility] CNOV Office Visit (PNHM) ANGELITA MOMIN ([id number]) 1990 M LV Date Time Provider Department 07/19/24 8:00 AM CHARLEEN SILVER [facility] During your visit today, we recorded the following information about you: Pulse Respiration Blood pressure 89/minute 18/minute 147/94 Charleen Silver MD 07/19/2024 8:45 AM Signed [facility] Pain Management Department Consultation Date: July 19, [...] the past who has been treated at [facility] recently for abdominal hernia repair with a [...] Reported on 06/29/2024) (more content not included)... [facility] 07-12-2024 [facility] Zeng CASE MANAGEMon 07-08-2024 CASE MANAGEM Normal [facility] CNDSon 07-08-2024 CNDS Normal [facility] CONSULT PROGon 07-08-2024 CONSULT PROG Normal [facility] THERAPY NTon 07-08-2024 THERAPY NT Normal [facility] Basic metabolic 2000 panelon 07-07-2024 Anion gap [Moles/Vol] 11 mmol/L Normal 8-15 [facility] Comment on above: Order Comment: Speci men Type: BLOOD SPECIMENOrdering Facility: [facility] Address: [address] [place] [address] Performed By: #### 1 9123-9, 2777-1, 77945-4 ####[facility] LABCLIA [id number] [place] [address] [place] Calcium [Mass/Vol] 8.8 mg/dL Normal 8.5-10.2 [facility] Comment on above: Order Comment: Speci men Type: BLOOD SPECIMENOrdering Facility: [facility] Address: [address] [place] [address] Result Comment: Resu lt rechecked. Performed By: #### 1 9123-9, 2777-1, 61967-5 ####[facility] LABCLIA [id number] [place] [address] [place] Chloride [Moles/Vol] 104 mmol/L Normal 98-107 [facility] Comment on above: Order Comment: Speci men Type: BLOOD SPECIMENOrdering Facility: [facility] Address: [address] [place], [place] [address] Performed By: #### 1 9123-9, 2777-1, 48517-5 ####[facility] LABCLIA [id number] [place] [id number] [place] CO2 [Moles/Vol] 25 mmol/L Normal 22-30 [facility] Comment on above: Order Comment: Speci men Type: BLOOD SPECIMENOrdering Facility: [facility] Address: [address] [place] [id number] Performed By: #### 1 9123-9, 2777-, 77365-3 ####[facility] LABIA [id number] [place] [id number] [place] Creatinine [Mass/Vol] 0.85 mg/dL Normal 0.73-1.22 [facility] Comment on above: Order Comment: Khushbu men Type: BLOOD SPECIMENOrdering Facility: [facility] Address: [address] [place] [address] Performed By: #### 1 9123-9, 2777-, 54165-6 ####[facility] [id number] [place] [address] [place] Creatinine and Glomerular filtration rate.predicted panel (S/P/Bld) 118 mL/min/1.73m??? Normal >=60 [facility] Comment on above: Order Comment: Khushbu grajeda Type: BLOOD SPECIMENOrdering Facility: [facility] Address: [address] [place] [address] Result Comment: Faye mated Glomerular Filtration Rate [...] actual GFR. Performed By: #### 1 9123-9, 2777-, 06748-1 ####[facility] LABIA [id number] [place] [id number] [place] Glucose [Mass/Vol] 97 mg/dL Normal 74-99 [facility] Comment on above: Order Comment: Khushbu grajeda Type: BLOOD SPECIMENOrdering Facility: [facility] Address: [address] [place] [address] Result Comment: The [place] [employer] (ADA) [...] 2016.39(Suppl 1). Performed By: #### 1 9123-9, 2777-, 62936-9 ####[facility] LABIA [id number] [place] [address] [place] Potassium [Moles/Vol] 3.5 mmol/L Low 3.7-5.1 [facility] Comment on above: Order Comment: Speci men Type: BLOOD SPECIMENOrdering Facility: [facility] Address: [address] [place] [address] Performed By: #### 1 9123-9, 27705-31, 26491-2 ####[facility] LABIA [id number] [place] [address] [place] Sodium [Moles/Vol] 140 mmol/L Normal 136-144 [facility] Comment on above: Order Comment: Speci men Type: BLOOD SPECIMENOrdering Facility: [facility] Address: [address] [place] [id number] Performed By: #### 1 9123-9, 2777, 15573-3 ####[facility] LABIA [id number] [place] [id number] [place] Urea nitrogen [Mass/Vol] 10 mg/dL Normal 9-24 [facility] Comment on above: Order Comment: Speci men Type: BLOOD SPECIMENOrdering Facility: [facility] Address: [address] [place] [address] Performed By: #### 1 9123-9, 2777, 85172-5 ####[facility] LABCLIA [id number] [place] [address] [place] CBC W Auto Differential pane l (Bld)on 07-07-2024 Basophils (Bld) [#/Vol] 0.06 10*3/uL Normal <0.11 [facility] Comment on above: Order Comment: Speci men Type: BLOOD SPECIMENOrdering Facility: [facility] Address: [address] [place] [address] Performed By: #### 5 7021-8 ####[facility] LABCLIA [id number] [place] [address] [place] Basophils/100 WBC (Bld) 0.8 % Normal [facility] Comment on above: Order Comment: Speci men Type: BLOOD SPECIMENOrdering Facility: [facility] Address: [address] [place] [address] Performed By: #### 5 7021-8 ####[facility] LABCLIA [id number] [place] [address] [place] Differential cell count method Nom (Bld) Auto Normal [facility] Comment on above: Order Comment: Speci men Type: BLOOD SPECIMENOrdering Facility: [facility] Address: [address] [place] [address] Performed By: #### 5 7021-8 ####[facility] LABCLIA [id number] [place] [address] [place] Eosinophils (Bld) [#/Vol] 0.41 10*3/uL Normal <0.46 [facility] Comment on above: Order Comment: Speci men Type: BLOOD SPECIMENOrdering Facility: [facility] Address: [address] [place] [address] Performed By: #### 5 7021-8 ####[facility] LABCLIA [id number] [address] [address] [place] Eosinophils/100 WBC (Bld) 5.5 % Normal [facility] Comment on above: Order Comment: Speci men Type: BLOOD SPECIMENOrdering Facility: [facility] Address: [address] [place] [address] Performed By: #### 5 7021-8 ####[facility] LABCLIA [id number] [place] [address] [place] Erythrocyte distribution width (RBC) [Ratio] 13.8 % Normal 11.5-15.0 [facility] Comment on above: Order Comment: Speci men Type: BLOOD SPECIMENOrdering Facility: [facility] Address: [address] [place] [address] Performed By: #### 5 7021-8 ####[facility] LABIA [id number] [place] [address] [place] Hematocrit (Bld) [Volume fraction] 41.1 % Normal 39.0-51.0 [facility] Comment on above: Order Comment: Speci men Type: BLOOD SPECIMENOrdering Facility: [facility] Address: [address] [place] [address] Performed By: #### 5 7021-8 ####[facility] LABIA [id number] [place] [address] [place] Hemoglobin (Bld) [Mass/Vol] 13.4 g/dL Normal 13.0-17.0 [facility] Comment on above: Order Comment: Speci men Type: BLOOD SPECIMENOrdering Facility: [facility] Address: [address] [place] [address] Performed By: #### 5 7021-8 ####[facility] LABIA [id number] [place] [address] [place] Immature granulocytes (Bld) [#/Vol] 0.18 10*3/uL High <0.10 [facility] Comment on above: Order Comment: Speci men Type: BLOOD SPECIMENOrdering Facility: [facility] Address: [address] [place] [address] Performed By: #### 5 7021-8 ####[facility] LABCLIA [id number] [place] [address] [place] Immature granulocytes/100 WBC (Bld) 2.4 % Normal [facility] Comment on above: Order Comment: Speci men Type: BLOOD SPECIMENOrdering Facility: [facility] Address: [address] [place] [address] Performed By: #### 5 7021-8 ####[facility] LABCLIA [id number] [place] [address] [place] Lymphocytes (Bld) [#/Vol] 1.35 10*3/uL Normal 1.00-4.00 [facility] Comment on above: Order Comment: Speci men Type: BLOOD SPECIMENOrdering Facility: [facility] Address: [address] [place] [address] Performed By: #### 5 7021-8 ####[facility] LABCLIA [id number] [place] [address] [place] Lymphocytes/100 WBC (Bld) 18.1 % Normal [facility] Comment on above: Order Comment: Speci men Type: BLOOD SPECIMENOrdering Facility: [facility] Address: [address] [place] [address] Performed By: #### 5 7021-8 ####[facility] LABCLIA [id number] [place] [address] [place] MCH (RBC) [Entitic mass] 26.6 pg Normal 26.0-34.0 [facility] Comment on above: Order Comment: Speci men Type: BLOOD SPECIMENOrdering Facility: [facility] Address: [address] [place] [address] Performed By: #### 5 7021-8 ####[facility] LABCLIA [id number] [place] [address] [place] MCHC (RBC) [Mass/Vol] 32.6 g/dL Normal 30.5-36.0 [facility] Comment on above: Order Comment: Speci men Type: BLOOD SPECIMENOrdering Facility: [facility] Address: [address] [place] [address] Performed By: #### 5 7021-8 ####[facility] LABCLIA [id number] [place] [address] [place] MCV (RBC) [Entitic vol] 81.7 fL Normal 80.0-100.0 [facility] Comment on above: Order Comment: Speci men Type: BLOOD SPECIMENOrdering Facility: [facility] Address: [address] [place] [address] Performed By: #### 5 7021-8 ####[facility] LABCLIA [id number] [place] [address] [place] Monocytes (Bld) [#/Vol] 0.68 10*3/uL Normal <0.87 [facility] Comment on above: Order Comment: Speci men Type: BLOOD SPECIMENOrdering Facility: [facility] Address: [address] [place] [address] Performed By: #### 5 7021-8 ####[facility] LABCLIA [id number] [place] [address] [place] Monocytes/100 WBC (Bld) 9.1 % Normal [facility] Comment on above: Order Comment: Speci men Type: BLOOD SPECIMENOrdering Facility: [facility] Address: [address] [place] [address] Performed By: #### 5 7021-8 ####[facility] LABCLIA [id number] [place] [address] [place] Neutrophils (Bld) [#/Vol] 4.78 10*3/uL Normal 1.45-7.50 [facility] Comment on above: Order Comment: Speci men Type: BLOOD SPECIMENOrdering Facility: [facility] Address: [address] [place] [address] Performed By: #### 5 7021-8 ####[facility] LABCLIA [id number] [place] [address] [place] Neutrophils/100 WBC (Bld) 64.1 % Normal [facility] Comment on above: Order Comment: Speci men Type: BLOOD SPECIMENOrdering Facility: [facility] Address: [address] [place] [address] Performed By: #### 5 7021-8 ####[facility] LABIA [id number] [place] [address] [place] Nucleated RBC (Bld) [#/Vol] 10*3/uL Normal <0.01 [facility] Comment on above: Order Comment: Speci men Type: BLOOD SPECIMENOrdering Facility: [facility] Address: [address] [place] [address] Performed By: #### 5 7021-8 ####[facility] LABIA [id number] [place] [address] [place] Nucleated RBC/100 WBC (Bld) [Ratio] 0.0 /100 WBC Normal [facility] Comment on above: Order Comment: Speci men Type: BLOOD SPECIMENOrdering Facility: [facility] Address: [address] [place] [address] Performed By: #### 5 7021-8 ####[facility] LABCLIA [id number] [place] [address] [place] Platelet mean volume (Bld) [Entitic vol] 11.9 fL Normal 9.0-12.7 [facility] Comment on above: Order Comment: Speci men Type: BLOOD SPECIMENOrdering Facility: [facility] Address: [address] [place] [address] Performed By: #### 5 7021-8 ####[facility] LABCLIA [id number] [place] [address] [place] Platelets (Bld) [#/Vol] 164 10*3/uL Normal 150-400 [facility] Comment on above: Order Comment: Speci men Type: BLOOD SPECIMENOrdering Facility: [facility] Address: [address] [place] [address] Performed By: #### 5 7021-8 ####[facility] LABCLIA [id number] [place] [address] [place] RBC (Bld) [#/Vol] 5.03 10*6/uL Normal 4.20-6.00 [facility] Comment on above: Order Comment: Speci men Type: BLOOD SPECIMENOrdering Facility: [facility] Address: [address] [place] [address] Performed By: #### 5 7021-8 ####[facility] LABCLIA [id number] [place] [address] [place] WBC (Bld) [#/Vol] 7.46 10*3/uL Normal 3.70-11.00 [facility] Comment on above: Order Comment: Speci men Type: BLOOD SPECIMENOrdering Facility: [facility] Address: [address] [place] [address] Performed By: #### 5 7021-8 ####[facility] LABIA [id number] [place] [address] [place] CONSULT PROGon 07-07-2024 CONSULT PROG Normal [facility] Magnesium SerPl-mCncon 07-07 Magnesium [Mass/Vol] 2.0 mg/dL Normal 1.7-2.3 [facility] Comment on above: Order Comment: Speci men Type: BLOOD SPECIMENOrdering Facility: [facility] Address: [address] [place] [address] Performed By: #### 1 9123-9, 2777-1, 41528-6 ####[facility] LABCLIA [id number] [place] [id number] [place] NURSING PROGon 07-07-2024 NURSING PROG Normal [facility] Phosphate SerPl-mCncon 07-07 Phosphate [Mass/Vol] 3.1 mg/dL Normal 2.7-4.8 [facility] Comment on above: Order Comment: Speci men Type: BLOOD SPECIMENOrdering Facility: [facility] Address: [address] [place] [address] Performed By: #### 1 9123-9, 2777-1, 88329-9 ####[facility] LABCLIA [id number] [address] [place] THERAPY NTon 07-07-2024 THERAPY NT Normal [facility] Basic metabolic 2000 panelon 07-06-2024 Anion gap [Moles/Vol] 10 mmol/L Normal 8-15 [facility] Comment on above: Order Comment: Speci men Type: BLOOD SPECIMENOrdering Facility: [facility] Address: [address] [place] [address] Performed By: #### 2 4321-2 ####[facility] LABCLIA [id number] [place] [address] [place] Calcium [Mass/Vol] 7.1 mg/dL Low 8.5-10.2 [facility] Comment on above: Order Comment: Speci men Type: BLOOD SPECIMENOrdering Facility: [facility] Address: [address] [place] [address] Performed By: #### 2 4321-2 ####[facility] LABCLIA [id number] [place] [address] [place] Chloride [Moles/Vol] 109 mmol/L High 98-107 [facility] Comment on above: Order Comment: Speci men Type: BLOOD SPECIMENOrdering Facility: [facility] Address: [address] [place] [address] Performed By: #### 2 4321-2 ####[facility] LABCLIA [id number] [place] [address] [place] CO2 [Moles/Vol] 24 mmol/L Normal 22-30 [facility] Comment on above: Order Comment: Speci men Type: BLOOD SPECIMENOrdering Facility: [facility] Address: [address] [place] [address] Performed By: #### 2 4321-2 ####[facility] LABCLIA [id number] [place] [address] [place] Creatinine [Mass/Vol] 0.77 mg/dL Normal 0.73-1.22 [facility] Comment on above: Order Comment: Speci men Type: BLOOD SPECIMENOrdering Facility: [facility] Address: [address] [place] [address] Performed By: #### 2 4321-2 ####[facility] LABIA [id number] [place] [address] [place] [facility] Creatinine and Glomerular filtration rate.predicted panel (S/P/Bld) 121 mL/min/1.73m??? Normal >=60 [facility] Comment on above: Order Comment: Speci men Type: BLOOD SPECIMENOrdering Facility: [facility] Address: [address] [place] [address] Result Comment: Faye mated Glomerular Filtration Rate [...] By: #### 2 4321-2 ####[facility] LABIA [id number] [place] [address] [place] Glucose [Mass/Vol] 78 mg/dL Normal 74-99 [facility] Comment on above: Order Comment: Speci men Type: BLOOD SPECIMENOrdering Facility: [facility] Address: [address] [id number] Result Comment: The [place] [employer] (ADA) [...] #### 2 4321-2 ####[facility] LABCLIA [id number] [place] [address] [place] Potassium [Moles/Vol] 2.8 mmol/L Low 3.7-5.1 [facility] Comment on above: Order Comment: Speci men Type: BLOOD SPECIMENOrdering Facility: [facility] Address: [address] [place] [address] Performed By: #### 2 4321-2 ####[facility] LABIA [id number] [place] [address] [place] Sodium [Moles/Vol] 143 mmol/L Normal 136-144 [facility] Comment on above: Order Comment: Speci men Type: BLOOD SPECIMENOrdering Facility: [facility] Address: [address] [id number] Performed By: #### 2 4321-2 ####[facility] LABCLIA [id number] [place] [address] [place] Urea nitrogen [Mass/Vol] 13 mg/dL Normal 9-24 [facility] Comment on above: Order Comment: Speci men Type: BLOOD SPECIMENOrdering Facility: [facility] Address: [address] [place] [address] Performed By: #### 2 4321-2 ####[facility] LABCLIA [id number] [place] [address] [place] Anion gap [Moles/Vol] 16 mmol/L High 8-15 [facility] Comment on above: Order Comment: Speci men Type: BLOOD SPECIMENOrdering Facility: [facility] Address: [address] [place] [address] Performed By: #### 2 4321-2, 10724-1 ####[facility] LABCLIA [id number] [place] [address] [place] Calcium [Mass/Vol] 8.6 mg/dL Normal 8.5-10.2 [facility] Comment on above: Order Comment: Speci men Type: BLOOD SPECIMENOrdering Facility: [facility] Address: [address] [place] [address] Performed By: #### 2 4321-2, 17508-7 ####[facility] LABCLIA [id number] [place] [address] [place] Chloride [Moles/Vol] 101 mmol/L Normal 98-107 [facility] Comment on above: Order Comment: Speci men Type: BLOOD SPECIMENOrdering Facility: [facility] Address: [address] [place] [address] Performed By: #### 2 4321-2, 86109-0 ####[facility] LABCLIA [id number] [place] [address] [place] CO2 [Moles/Vol] 26 mmol/L Normal 22-30 [facility] Comment on above: Order Comment: Speci men Type: BLOOD SPECIMENOrdering Facility: [facility] Address: [address] [place] [address] Performed By: #### 2 4321-2, 53343-0 ####[facility] LABCLIA [id number] [place] [id number] [place] Creatinine [Mass/Vol] 0.89 mg/dL Normal 0.73-1.22 [facility] Comment on above: Order Comment: Khushbu grajeda Type: BLOOD SPECIMENOrdering Facility: [facility] Address: [address] [place] [address] Performed By: #### 2 4321-2, 70597-5 ####[facility] LABCLIA [id number] [address] Creatinine and Glomerular filtration rate.predicted panel (S/P/Bld) 116 mL/min/1.73m??? Normal >=60 [facility] Comment on above: Order Comment: Khushbu grajeda Type: BLOOD SPECIMENOrdering Facility: [facility] Address: [address] [place] [address] Result Comment: Faye mated Glomerular Filtration Rate [...] actual GFR. Performed By: #### 2 4321-2, 80644-2 ####[facility] LABCLIA [id number] [place] [address] [place] Glucose [Mass/Vol] 83 mg/dL Normal 74-99 [facility] Comment on above: Order Comment: Khushbu grajeda Type: BLOOD SPECIMENOrdering Facility: [facility] Address: [address] [place] [address] Result Comment: The [place] [employer] (ADA) [...] 2016.39(Suppl 1). Performed By: #### 2 4321-2, 70980-4 ####[facility] LABCLIA [id number] [place] [address] [place] Potassium [Moles/Vol] 3.5 mmol/L Low 3.7-5.1 [facility] Comment on above: Order Comment: Speci men Type: BLOOD SPECIMENOrdering Facility: [facility] Address: [address] [place] [address] Performed By: #### 2 4321-2, 12493-0 ####[facility] LABCLIA [id number] [place] [address] [place] Sodium [Moles/Vol] 143 mmol/L Normal 136-144 [facility] Comment on above: Order Comment: Speci men Type: BLOOD SPECIMENOrdering Facility: [facility] Address: [address] [place] [address] Performed By: #### 2 4321-2, 79017-6 ####[facility] LABCLIA [id number] [place] [address] [place] Urea nitrogen [Mass/Vol] 15 mg/dL Normal 9-24 [facility] Comment on above: Order Comment: Speci men Type: BLOOD SPECIMENOrdering Facility: [facility] Address: [address] [place] [address] Performed By: #### 2 4321-2, 47223-2 ####[facility] LABCLIA [id number] [place] [id number] [place] CASE MANAGEMon 07-06-2024 CASE MANAGEM Normal [facility] CASE MANAGEM Normal [facility] CBC W Auto Differential pane l (Bld)on 07-06-2024 Basophils (Bld) [#/Vol] 0.04 10*3/uL Normal <0.11 [facility] Comment on above: Order Comment: Speci men Type: BLOOD SPECIMENOrdering Facility: [facility] Address: [address] [place] [address] Performed By: #### 5 7021-8 ####[facility] LABCLIA [id number] [place] [address] [place] Basophils/100 WBC (Bld) 0.8 % Normal [facility] Comment on above: Order Comment: Speci men Type: BLOOD SPECIMENOrdering Facility: [facility] Address: [address] [place] [address] Performed By: #### 5 7021-8 ####[facility] LABCLIA [id number] [place] [address] [place] Differential cell count method Nom (Bld) Auto Normal [facility] Comment on above: Order Comment: Speci men Type: BLOOD SPECIMENOrdering Facility: [facility] Address: [address] [place] [address] Performed By: #### 5 7021-8 ####[facility] LABCLIA [id number] [place] [address] [place] Eosinophils (Bld) [#/Vol] 0.42 10*3/uL Normal <0.46 [facility] Comment on above: Order Comment: Speci men Type: BLOOD SPECIMENOrdering Facility: [facility] Address: [address] [place] [address] Performed By: #### 5 7021-8 ####[facility] LABCLIA [id number] [place] [address] [place] Eosinophils/100 WBC (Bld) 7.9 % Normal [facility] Comment on above: Order Comment: Speci men Type: BLOOD SPECIMENOrdering Facility: [facility] Address: [address] [place] [address] Performed By: #### 5 7021-8 ####[facility] LABCLIA [id number] [place] [address] [place] Erythrocyte distribution width (RBC) [Ratio] 13.5 % Normal 11.5-15.0 [facility] Comment on above: Order Comment: Speci men Type: BLOOD SPECIMENOrdering Facility: [facility] Address: [address] [place] [address] Performed By: #### 5 7021-8 ####[facility] LABIA [id number] [place] [address] [place] Hematocrit (Bld) [Volume fraction] 37.4 % Low 39.0-51.0 [facility] Comment on above: Order Comment: Speci men Type: BLOOD SPECIMENOrdering Facility: [facility] Address: [address] [place] [address] Performed By: #### 5 7021-8 ####[facility] LABIA [id number] [place] [address] [place] Hemoglobin (Bld) [Mass/Vol] 12.0 g/dL Low 13.0-17.0 [facility] Comment on above: Order Comment: Speci men Type: BLOOD SPECIMENOrdering Facility: [facility] Address: [address] [place] [address] Performed By: #### 5 7021-8 ####[facility] LABIA [id number] [place] [address] [place] Immature granulocytes (Bld) [#/Vol] 0.05 10*3/uL Normal <0.10 [facility] Comment on above: Order Comment: Speci men Type: BLOOD SPECIMENOrdering Facility: [facility] Address: [address] [place] [address] Performed By: #### 5 7021-8 ####[facility] LABIA [id number] [place] [address] [place] Immature granulocytes/100 WBC (Bld) 0.9 % Normal [facility] Comment on above: Order Comment: Speci men Type: BLOOD SPECIMENOrdering Facility: [facility] Address: [address] [place] [address] Performed By: #### 5 7021-8 ####[facility] LABCLIA [id number] [place] [address] [place] Lymphocytes (Bld) [#/Vol] 0.94 10*3/uL Low 1.00-4.00 [facility] Comment on above: Order Comment: Speci men Type: BLOOD SPECIMENOrdering Facility: [facility] Address: [address] [place] [address] Performed By: #### 5 7021-8 ####[facility] LABIA [id number] [place] [address] [place] Lymphocytes/100 WBC (Bld) 17.6 % Normal [facility] Comment on above: Order Comment: Speci men Type: BLOOD SPECIMENOrdering Facility: [facility] Address: [address] [place] [address] Performed By: #### 5 7021-8 ####[facility] LABCLIA [id number] [place] [address] [place] MCH (RBC) [Entitic mass] 27.2 pg Normal 26.0-34.0 [facility] Comment on above: Order Comment: Speci men Type: BLOOD SPECIMENOrdering Facility: [facility] Address: [address] [place] [address] Performed By: #### 5 7021-8 ####[facility] LABCLIA [id number] [place] [address] [place] MCHC (RBC) [Mass/Vol] 32.1 g/dL Normal 30.5-36.0 [facility] Comment on above: Order Comment: Speci men Type: BLOOD SPECIMENOrdering Facility: [facility] Address: [address] [place] [address] Performed By: #### 5 7021-8 ####[facility] LABCLIA [id number] [place] [address] [place] MCV (RBC) [Entitic vol] 84.8 fL Normal 80.0-100.0 [facility] Comment on above: Order Comment: Speci men Type: BLOOD SPECIMENOrdering Facility: [facility] Address: [address] [place] [address] Performed By: #### 5 7021-8 ####[facility] LABCLIA [id number] [place] [address] [place] Monocytes (Bld) [#/Vol] 0.64 10*3/uL Normal <0.87 [facility] Comment on above: Order Comment: Speci men Type: BLOOD SPECIMENOrdering Facility: [facility] Address: [address] [place] [address] Performed By: #### 5 7021-8 ####[facility] LABIA [id number] [place] [address] [place] Monocytes/100 WBC (Bld) 12.0 % Normal [facility] Comment on above: Order Comment: Speci men Type: BLOOD SPECIMENOrdering Facility: [facility] Address: [address] [place] [address] Performed By: #### 5 7021-8 ####[facility] LABCLIA [id number] [place] [address] [place] Neutrophils (Bld) [#/Vol] 3.24 10*3/uL Normal 1.45-7.50 [facility] Comment on above: Order Comment: Speci men Type: BLOOD SPECIMENOrdering Facility: [facility] Address: [address] [place] [address] Performed By: #### 5 7021-8 ####[facility] LABIA [id number] [place] [address] [place] Neutrophils/100 WBC (Bld) 60.8 % Normal [facility] Comment on above: Order Comment: Speci men Type: BLOOD SPECIMENOrdering Facility: [facility] Address: [address] [place] [address] Performed By: #### 5 7021-8 ####[facility] LABCLIA [id number] [place] [address] [place] Nucleated RBC (Bld) [#/Vol] 10*3/uL Normal <0.01 [facility] Comment on above: Order Comment: Speci men Type: BLOOD SPECIMENOrdering Facility: [facility] Address: [address] [place] [address] Performed By: #### 5 7021-8 ####[facility] LABIA [id number] [place] [address] [place] Nucleated RBC/100 WBC (Bld) [Ratio] 0.0 /100 WBC Normal [facility] Comment on above: Order Comment: Speci men Type: BLOOD SPECIMENOrdering Facility: [facility] Address: [address] [place] [address] Performed By: #### 5 7021-8 ####[facility] LABIA [id number] [place] [address] [place] Platelet mean volume (Bld) [Entitic vol] 12.9 fL High 9.0-12.7 [facility] Comment on above: Order Comment: Speci men Type: BLOOD SPECIMENOrdering Facility: [facility] Address: [address] [place] [address] Performed By: #### 5 7021-8 ####[facility] LABIA [id number] [place] [address] [place] Platelets (Bld) [#/Vol] 133 10*3/uL Low 150-400 [facility] Comment on above: Order Comment: Speci men Type: BLOOD SPECIMENOrdering Facility: [facility] Address: [address] [place], [place] [address] Performed By: #### 5 7021-8 ####[facility] LABCLIA [id number] [place] [address] [place] RBC (Bld) [#/Vol] 4.41 10*6/uL Normal 4.20-6.00 [facility] Comment on above: Order Comment: Speci men Type: BLOOD SPECIMENOrdering Facility: [facility] Address: [address] [place] [address] Performed By: #### 5 7021-8 ####[facility] LABCLIA [id number] [place] [address] [place] WBC (Bld) [#/Vol] 5.33 10*3/uL Normal 3.70-11.00 [facility] Comment on above: Order Comment: Speci men Type: BLOOD SPECIMENOrdering Facility: [facility] Address: [address] [place] [address] Performed By: #### 5 7021-8 ####[facility] LABIA [id number] [place] [address] [place] Basophils (Bld) [#/Vol] 0.10 10*3/uL Normal <0.11 [facility] Comment on above: Order Comment: Speci men Type: BLOOD SPECIMENOrdering Facility: [facility] Address: [address] [place] [address] Performed By: #### 5 7021-8 ####[facility] LABCLIA [id number] [place] [address] [place] Basophils/100 WBC (Bld) 1.8 % Normal [facility] Comment on above: Order Comment: Speci men Type: BLOOD SPECIMENOrdering Facility: [facility] Address: [address] [place] [address] Performed By: #### 5 7021-8 ####[facility] LABCLIA [id number] [place] [address] [place] Differential cell count method Nom (Bld) Manual Normal [facility] Comment on above: Order Comment: Speci men Type: BLOOD SPECIMENOrdering Facility: [facility] Address: [address] [place] [address] Performed By: #### 5 7021-8 ####[facility] LABCLIA [id number] [place] [address] [place] Eosinophils (Bld) [#/Vol] 0.90 10*3/uL High <0.46 [facility] Comment on above: Order Comment: Speci men Type: BLOOD SPECIMENOrdering Facility: [facility] Address: [address] [place] [address] Performed By: #### 5 7021-8 ####[facility] LABCLIA [id number] [place] [address] [place] Eosinophils/100 WBC (Bld) 15.8 % Normal [facility] Comment on above: Order Comment: Speci men Type: BLOOD SPECIMENOrdering Facility: [facility] Address: [address] [place] [address] Performed By: #### 5 7021-8 ####[facility] LABCLIA [id number] [place] [address] [place] Erythrocyte distribution width (RBC) [Ratio] 14.0 % Normal 11.5-15.0 [facility] Comment on above: Order Comment: Speci men Type: BLOOD SPECIMENOrdering Facility: [facility] Address: [address] [place] [address] Performed By: #### 5 7021-8 ####[facility] LABCLIA [id number] [place] [address] [place] Hematocrit (Bld) [Volume fraction] 45.9 % Normal 39.0-51.0 [facility] Comment on above: Order Comment: Speci men Type: BLOOD SPECIMENOrdering Facility: [facility] Address: [address] [place] [address] Performed By: #### 5 7021-8 ####[facility] LABCLIA [id number] [place] [address] [place] Hemoglobin (Bld) [Mass/Vol] 14.9 g/dL Normal 13.0-17.0 [facility] Comment on above: Order Comment: Speci men Type: BLOOD SPECIMENOrdering Facility: [facility] Address: [address] [place] [address] Performed By: #### 5 7021-8 ####[facility] LABIA [id number] [place] [address] [place] Lymphocytes (Bld) [#/Vol] 1.50 10*3/uL Normal 1.00-4.00 [facility] Comment on above: Order Comment: Speci men Type: BLOOD SPECIMENOrdering Facility: [facility] Address: [address] [place] [address] Performed By: #### 5 7021-8 ####[facility] LABIA [id number] [place] [address] [place] Lymphocytes/100 WBC (Bld) 26.3 % Normal [facility] Comment on above: Order Comment: Speci men Type: BLOOD SPECIMENOrdering Facility: [facility] Address: [address] [place] [address] Performed By: #### 5 7021-8 ####[facility] LABCLIA [id number] [place] [address] [place] MCH (RBC) [Entitic mass] 27.0 pg Normal 26.0-34.0 [facility] Comment on above: Order Comment: Speci men Type: BLOOD SPECIMENOrdering Facility: [facility] Address: [address] [place] [address] Performed By: #### 5 7021-8 ####[facility] LABCLIA [id number] [place] [address] [place] MCHC (RBC) [Mass/Vol] 32.5 g/dL Normal 30.5-36.0 [facility] Comment on above: Order Comment: Speci men Type: BLOOD SPECIMENOrdering Facility: [facility] Address: [address] [place] [address] Performed By: #### 5 7021-8 ####[facility] LABIA [id number] [place] [address] [place] MCV (RBC) [Entitic vol] 83.3 fL Normal 80.0-100.0 [facility] Comment on above: Order Comment: Speci men Type: BLOOD SPECIMENOrdering Facility: [facility] Address: [address] [place] [address] Performed By: #### 5 7021-8 ####[facility] LABIA [id number] [place] [address] [place] Monocytes (Bld) [#/Vol] 0.75 10*3/uL Normal <0.87 [facility] Comment on above: Order Comment: Speci men Type: BLOOD SPECIMENOrdering Facility: [facility] Address: [address] [place] [address] Performed By: #### 5 7021-8 ####[facility] LABIA [id number] [place] [address] [place] Monocytes/100 WBC (Bld) 13.2 % Normal [facility] Comment on above: Order Comment: Speci men Type: BLOOD SPECIMENOrdering Facility: [facility] Address: [address] [place] [address] Performed By: #### 5 7021-8 ####[facility] LABIA [id number] [place] [address] [place] Neutrophils (Bld) [#/Vol] 2.45 10*3/uL Normal 1.45-7.50 [facility] Comment on above: Order Comment: Speci men Type: BLOOD SPECIMENOrdering Facility: [facility] Address: [address] [place] [address] Performed By: #### 5 7021-8 ####[facility] LABCLIA [id number] [place] [address] [place] Neutrophils/100 WBC (Bld) 42.9 % Normal [facility] Comment on above: Order Comment: Speci men Type: BLOOD SPECIMENOrdering Facility: [facility] Address: [address] [place] [address] Performed By: #### 5 7021-8 ####[facility] LABCLIA [id number] [place] [address] [place] Nucleated RBC (Bld) [#/Vol] 10*3/uL Normal <0.01 [facility] Comment on above: Order Comment: Speci men Type: BLOOD SPECIMENOrdering Facility: [facility] Address: [address] [place] [address] Performed By: #### 5 7021-8 ####[facility] LABCLIA [id number] [place] [address] [place] Nucleated RBC/100 WBC (Bld) [Ratio] 0.0 /100 WBC Normal [facility] Comment on above: Order Comment: Speci men Type: BLOOD SPECIMENOrdering Facility: [facility] Address: [address] [place] [address] Performed By: #### 5 7021-8 ####[facility] LABCLIA [id number] [place] [address] [place] Platelet mean volume (Bld) [Entitic vol] 12.3 fL Normal 9.0-12.7 [facility] Comment on above: Order Comment: Speci men Type: BLOOD SPECIMENOrdering Facility: [facility] Address: [address] [place] [address] Performed By: #### 5 7021-8 ####[facility] [facility] LABCL[facility] [id number] [address] [address] [place] Platelets (Bld) [#/Vol] 158 10*3/uL Normal 150-400 [facility] Comment on above: Order Comment: Speci men Type: BLOOD SPECIMENOrdering Facility: [facility] Address: [address] [place] [address] Performed By: #### 5 7021-8 ####[facility] LABCLIA [id number] [place] [address] [place] Platelets Estimate (Bld) [#/Vol] Adequate Normal [facility] Comment on above: Order Comment: Speci men Type: BLOOD SPECIMENOrdering Facility: [facility] Address: [address] [place] [address] Performed By: #### 5 7021-8 ####[facility] LABIA [id number] [place] [address] [place] Polychromasia LM Ql (Bld) Slight Normal [facility] Comment on above: Order Comment: Speci men Type: BLOOD SPECIMENOrdering Facility: [facility] Address: [address] [place] [address] Performed By: #### 5 7021-8 ####[facility] LABCLIA [id number] [place] [address] [place] RBC (Bld) [#/Vol] 5.51 10*6/uL Normal 4.20-6.00 [facility] Comment on above: Order Comment: Speci men Type: BLOOD SPECIMENOrdering Facility: [facility] Address: [address] [place] [address] Performed By: #### 5 7021-8 ####[facility] LABIA [id number] [place] [address] [place] RED CELL MORPH Reviewed: unremarkable Normal [facility] Comment on above: Order Comment: Speci men Type: BLOOD SPECIMENOrdering Facility: [facility] Address: [address] [place], [place] [address] Performed By: #### 5 7021-8 ####[facility] LABCLIA [id number] [place] [address] [place] WBC (Bld) [#/Vol] 5.71 10*3/uL Normal 3.70-11.00 [facility] Comment on above: Order Comment: Speci men Type: BLOOD SPECIMENOrdering Facility: [facility] Address: [address] [place] [address] Performed By: #### 5 7021-8 ####[facility] LABCLIA [id number] [place] [address] [place] CONSULT PROGon 07-06-2024 CONSULT PROG Normal [facility] CONSULT PROG Normal [facility] CRP SerPl-mCncon 07-06-2024 CRP [Mass/Vol] 11.4 mg/dL High <0.9 [facility] Comment on above: Order Comment: Speci men Type: BLOOD SPECIMENOrdering Facility: [facility] Address: [address] [place] [address] Performed By: #### 1 9123-9, 2776-12, 3034-05 ####[facility] LABCLIA [id number] [place] [address] [place] CT ABD/PEL W IVCONon 024 CT ABD/PEL W IVCON Normal [facility] Magnesium SerPl-mCncon 07-06 Magnesium [Mass/Vol] 2.1 mg/dL Normal 1.7-2.3 [facility] Comment on above: Order Comment: Speci men Type: BLOOD SPECIMENOrdering Facility: [facility] Address: [address] [place], [place] [address] Performed By: #### 1 9123-9, 27705-31, 3034-05 ####[facility] LABCLIA [id number] [place] [address] [place] NURSING PROGon 07-06-2024 NURSING PROG Normal [facility] NUTRITIONon 07-06-2024 NUTRITION Normal [facility] PT panel Coag (PPP)on 2023 INR Coag (PPP) [Relative time] 1.0 {INR} Normal 0.9-1.3 [facility] Comment on above: Order Comment: Speci men Type: BLOOD SPECIMENOrdering Facility: [facility] Address: [address] [place] [address] Result Comment: Salma min K Antagonist (VKA) [...] 3).Harley WILCOX, et al. Chest 2012, 141:7S-47SAdriana SHIRLEY, et al. [facility] 2017, 70: 252-289 Performed By: #### 3 4528-0, 95977-8 ####[facility] LABCLIA [id number] [place] [address] [place] PT Coag (PPP) [Time] 11.0 s Normal 9.7-13.0 [facility] Comment on above: Order Comment: Speci men Type: BLOOD SPECIMENOrdering Facility: [facility] Address: [address] [place] [id number] Performed By: #### 3 4528-0, 83764-4 ####[facility] LABIA [id number] [place] [id number] [place] Phosphate SerPl-mCncon 07-06 Phosphate [Mass/Vol] 2.1 mg/dL Low 2.7-4.8 [facility] Comment on above: Order Comment: Speci men Type: BLOOD SPECIMENOrdering Facility: [facility] Address: [address] [place] [address] Performed By: #### 1 9123-9, 2777, 1988-03, 3034-05 ####[facility] LABCLIA [id number] [place] [address] [place] Prealb SerPl-mCncon 07-06-20 Prealbumin [Mass/Vol] 14 mg/dL Low 17-36 [facility] Comment on above: Order Comment: Speci men Type: BLOOD SPECIMENOrdering Facility: [facility] Address: [address] [place] [address] Performed By: #### 2 4321-2, 10283-0 ####[facility] LABIA [id number] [place] [id number] [place] THERAPY NTon 07-06-2024 THERAPY NT Normal [facility] THERAPY NT Normal [facility] Transferrin SerPl-mCncon Transferrin [Mass/Vol] 184 mg/dL Low 200-360 [facility] Comment on above: Order Comment: Speci men Type: BLOOD SPECIMENOrdering Facility: [facility] Address: [address] [place] [address] Performed By: #### 1 9123-9, 27705-31, 1988-03, 3034-05 ####[facility] LABIA [id number] [place] [id number] [place] aPTT PPPon 07-06-2024 aPTT Coag (PPP) [Time] 26.2 s Normal 23.0-32.4 [facility] Comment on above: Order Comment: Speci men Type: BLOOD SPECIMENOrdering Facility: [facility] Address: [address] [place] [address] Performed By: #### 3 4528-0, 11916-2 ####[facility] LABCLIA [id number] [place] [address] [place] CASE MANAGEMon 07-05-2024 CASE MANAGEM Normal [facility] CONSULTon 07-05-2024 CONSULT Normal [facility] CONSULT PROGon 07-05-2024 CONSULT PROG Normal [facility] PT EDon 07-05-2024 PT ED Normal [facility] PT panel Coag (PPP)on 2023 INR Coag (PPP) [Relative time] 1.0 {INR} Normal 0.9-1.3 [facility] Comment on above: Order Comment: Speci men Type: BLOOD SPECIMENOrdering Facility: [facility] Address: [address] [place] [address] Result Comment: Salma min K Antagonist (VKA) [...] al. Chest 2012, 141:7S-47SNishimura RA, et al. [facility] 2017, 70: 252-289 Performed By: #### 3 4528-0, 28756-6 ####[facility] LABCLIA [id number] [place] [id number] [place] PT Coag (PPP) [Time] 10.7 s Normal 9.7-13.0 [facility] Comment on above: Order Comment: Speci men Type: BLOOD SPECIMENOrdering Facility: [facility] Address: [address] [place] [address] Performed By: #### 3 4528-0, 40362-2 ####[facility] LABCLIA [id number] [place] [address] [place] THERAPY NTon 07-05-2024 THERAPY NT Normal [facility] XR ABDOMEN 1V SUPINEon 07-05 XR ABDOMEN 1V SUPINE Normal [facility] aPTT PPPon 07-05-2024 aPTT Coag (PPP) [Time] 28.2 s Normal 23.0-32.4 [facility] Comment on above: Order Comment: Speci men Type: BLOOD SPECIMENOrdering Facility: [facility] Address: [address] [place] [address] Performed By: #### 3 4528-0, 18640-5 ####[facility] LABCLIA [id number] [place] [address] [place] CBC panel Auto (Bld)on 07-04 Erythrocyte distribution width (RBC) [Ratio] 14.2 % Normal 11.5-15.0 [facility] Comment on above: Order Comment: Speci men Type: BLOOD SPECIMENOrdering Facility: [facility] Address: [address] [place] [address] Performed By: #### 5 8410-2 ####[facility] LABCLIA [id number] [place] [address] [place] Hematocrit (Bld) [Volume fraction] 46.4 % Normal 39.0-51.0 [facility] Comment on above: Order Comment: Speci men Type: BLOOD SPECIMENOrdering Facility: [facility] Address: [address] [place] [address] Performed By: #### 5 8410-2 ####[facility] LABCLIA [id number] [place] [address] [place] Hemoglobin (Bld) [Mass/Vol] 15.1 g/dL Normal 13.0-17.0 [facility] Comment on above: Order Comment: Speci men Type: BLOOD SPECIMENOrdering Facility: [facility] Address: [address] [place] [address] Performed By: #### 5 8410-2 ####[facility] LABCLIA [id number] [place] [address] [place] MCH (RBC) [Entitic mass] 27.3 pg Normal 26.0-34.0 [facility] Comment on above: Order Comment: Speci men Type: BLOOD SPECIMENOrdering Facility: [facility] Address: [address] [place] [address] Performed By: #### 5 8410-2 ####[facility] LABIA [id number] [place] MCHC (RBC) [Mass/Vol] 32.5 g/dL Normal 30.5-36.0 [facility] Comment on above: Order Comment: Speci men Type: BLOOD SPECIMENOrdering Facility: [facility] Address: [address] [place] [address] Performed By: #### 5 8410-2 ####[facility] LABIA [id number] [place] [address] [place] MCV (RBC) [Entitic vol] 83.8 fL Normal 80.0-100.0 [facility] Comment on above: Order Comment: Speci men Type: BLOOD SPECIMENOrdering Facility: [facility] Address: [address] [place] [address] Performed By: #### 5 8410-2 ####[facility] LABIA [id number] [place] [address] [place] Nucleated RBC (Bld) [#/Vol] 10*3/uL Normal <0.01 [facility] Comment on above: Order Comment: Speci men Type: BLOOD SPECIMENOrdering Facility: [facility] Address: [address] [place] [address] Performed By: #### 5 8410-2 ####[facility] LABIA [id number] [place] [address] [place] Platelet mean volume (Bld) [Entitic vol] 11.6 fL Normal 9.0-12.7 [facility] Comment on above: Order Comment: Speci men Type: BLOOD SPECIMENOrdering Facility: [facility] Address: [address] [place] [address] Performed By: #### 5 8410-2 ####[facility] LABIA [id number] [place] [address] [place] Platelets (Bld) [#/Vol] 146 10*3/uL Low 150-400 [facility] Comment on above: Order Comment: Speci men Type: BLOOD SPECIMENOrdering Facility: [facility] Address: [address] [place] [address] Performed By: #### 5 8410-2 ####[facility] LABIA [id number] [place] [address] [place] RBC (Bld) [#/Vol] 5.54 10*6/uL Normal 4.20-6.00 [facility] Comment on above: Order Comment: Speci men Type: BLOOD SPECIMENOrdering Facility: [facility] Address: [address] [place] [address] Performed By: #### 5 8410-2 ####[facility] LABIA [id number] [place] [address] [place] WBC (Bld) [#/Vol] 4.30 10*3/uL Normal 3.70-11.00 [facility] Comment on above: Order Comment: Speci men Type: BLOOD SPECIMENOrdering Facility: [facility] Address: [address] [place] [address] Performed By: #### 5 8410-2 ####[facility] LABCLIA [id number] [place] [id number] [place] CONSULT PROGon 07-04-2024 CONSULT PROG Normal [facility] Comprehensive metabolic 2000 panelon 07-04-2024 Albumin [Mass/Vol] 3.8 g/dL Low 3.9-4.9 [facility] Comment on above: Order Comment: Speci men Type: BLOOD SPECIMENOrdering Facility: [facility] Address: [address] [place] [address] Performed By: #### 2 4323-8, , 2776-12 ####[facility] LABIA [id number] [place] [address] [place] ALP [Catalytic activity/Vol] 89 U/L Normal 38-113 [facility] Comment on above: Order Comment: Speci men Type: BLOOD SPECIMENOrdering Facility: [facility] Address: [address] [place] [address] Performed By: #### 2 4323-8, , 2776-12 ####[facility] LABIA [id number] [place] [address] [place] ALT [Catalytic activity/Vol] 105 U/L High 10-54 [facility] Comment on above: Order Comment: Speci men Type: BLOOD SPECIMENOrdering Facility: [facility] Address: [address] [place] [address] Performed By: #### 2 4323-8, , 2776-12 ####[facility] LABIA [id number] [place] [id number] [place] Anion gap [Moles/Vol] 16 mmol/L High 8-15 [facility] Comment on above: Order Comment: Speci men Type: BLOOD SPECIMENOrdering Facility: [facility] Address: [address] [place] [address] Performed By: #### 2 4323-8, , 2776-12 ####[facility] LABCLIA [id number] [place] [id number] [place] AST [Catalytic activity/Vol] 53 U/L High 14-40 [facility] Comment on above: Order Comment: Speci men Type: BLOOD SPECIMENOrdering Facility: [facility] Address: [address] [place] [address] Result Comment: Resu lts may be falsely increased due to interference from hemolysis. Suggest reorder as clinically indicated. Performed By: #### 2 4323-8, , 2776-12 ####[facility] LABIA [id number] [place] [address] [place] Bilirubin [Mass/Vol] 1.1 mg/dL Normal 0.2-1.3 [facility] Comment on above: Order Comment: Speci men Type: BLOOD SPECIMENOrdering Facility: [facility] Address: [address] [place] [address] Performed By: #### 2 4323-8, , 2776-12 ####[facility] LABIA [id number] [place] [address] [place] Calcium [Mass/Vol] 9.3 mg/dL Normal 8.5-10.2 [facility] Comment on above: Order Comment: Speci men Type: BLOOD SPECIMENOrdering Facility: [facility] Address: [address] [place] [address] Performed By: #### 2 4323-8, , 2776-12 ####[facility] LABIA [id number] [place] [address] [place] Chloride [Moles/Vol] 101 mmol/L Normal 98-107 [facility] Comment on above: Order Comment: Speci men Type: BLOOD SPECIMENOrdering Facility: [facility] Address: [address] [place] [address] Performed By: #### 2 4323-8, , 2776-12 ####[facility] LABCLIA [id number] [place] [address] [place] CO2 [Moles/Vol] 19 mmol/L Low 22-30 [facility] Comment on above: Order Comment: Speci men Type: BLOOD SPECIMENOrdering Facility: [facility] Address: [address] [place] [address] Performed By: #### 2 4323-8, , 2776-12 ####[facility] LABCLIA [id number] [place] [address] [place] Creatinine [Mass/Vol] 1.15 mg/dL Normal 0.73-1.22 [facility] Comment on above: Order Comment: Speci men Type: BLOOD SPECIMENOrdering Facility: [facility] Address: [address] [place] [address] Performed By: #### 2 4323-8, , 2776-12 ####[facility] LABIA [id number] [place] [address] [place] Creatinine and Glomerular filtration rate.predicted panel (S/P/Bld) 86 mL/min/1.73m??? Normal >=60 [facility] Comment on above: Order Comment: Speci men Type: BLOOD SPECIMENOrdering Facility: [facility] Address: [address] [place] [address] Result Comment: Faye mated Glomerular Filtration Rate [...] actual GFR. Performed By: #### 2 4323-8, , 2776-12 ####[facility] LABCLIA [id number] [place] [id number] [place] Glucose [Mass/Vol] 119 mg/dL High 74-99 [facility] Comment on above: Order Comment: Speci men Type: BLOOD SPECIMENOrdering Facility: [facility] Address: [address] [place] [address] Result Comment: The [place] [employer] (ADA) [...] 1). Performed By: #### 2 4323-8, , 2776-12 ####[facility] LABCLIA [id number] [place] [address] [place] Potassium [Moles/Vol] 4.5 mmol/L Normal 3.7-5.1 [facility] Comment on above: Order Comment: Luisi men Type: BLOOD SPECIMENOrdering Facility: [facility] Address: [address] [place] [address] Performed By: #### 2 4323-8, , 2776-12 ####[facility] LABCLIA [id number] [place] [id number] [place] Protein [Mass/Vol] 6.5 g/dL Normal 6.3-8.0 [facility] Comment on above: Order Comment: Speci men Type: BLOOD SPECIMENOrdering Facility: [facility] Address: [address] [place] [address] Performed By: #### 2 4323-8, , 2776- ####[facility] LABCLIA [id number] [place] [id number] [place] Sodium [Moles/Vol] 136 mmol/L Normal 136-144 [facility] Comment on above: Order Comment: Speci men Type: BLOOD SPECIMENOrdering Facility: [facility] Address: [address] [place], [place] [address] Performed By: #### 2 4323-8, 19671-7, 2777-1 ####[facility] [id number] [place] [id number] [place] Urea nitrogen [Mass/Vol] 17 mg/dL Normal 9-24 [facility] Comment on above: Order Comment: Speci men Type: BLOOD SPECIMENOrdering Facility: [facility] Address: [address] [place], [place] [address] Performed By: #### 2 4323-8, 12656-6, 2777- ####[facility] [id number] [place] [id number] [place] Magnesium SerPl-mCncon 07-04 Magnesium [Mass/Vol] 1.9 mg/dL Normal 1.7-2.3 [facility] Comment on above: Order Comment: Speci men Type: BLOOD SPECIMENOrdering Facility: [facility] Address: [address] [place] [address] Performed By: #### 2 4323-8, 52633-1, 2777-1 ####[facility] [id number] [place] [id number] [place] NURSING PROGon 07-04-2024 NURSING PROG Normal [facility] NURSING PROG Normal [facility] NURSING PROG Normal [facility] PT panel Coag (PPP)on 2023 INR Coag (PPP) [Relative time] 1.1 {INR} Normal 0.9-1.3 [facility] Comment on above: Order Comment: Speci men Type: BLOOD SPECIMENOrdering Facility: [facility] Address: [address] [place] [address] Result Comment: Salma min K Antagonist (VKA) [...] of 3).Harley WILCOX, et al. Chest 2012, 141:7S-47SNishsophia RA, et al. [facility] 2017, 70: 252-289 Performed By: #### 3 4528-0, 18834-1 ####[facility] LABCLIA [id number] [place] [address] [place] PT Coag (PPP) [Time] 11.4 s Normal 9.7-13.0 [facility] Comment on above: Order Comment: Speci men Type: BLOOD SPECIMENOrdering Facility: [facility] Address: [address] [place] [address] Performed By: #### 3 4528-0, 10281-8 ####[facility] LABCLIA [id number] [place] [id number] [place] Phosphate SerPl-mCncon 07-04 Phosphate [Mass/Vol] 4.4 mg/dL Normal 2.7-4.8 [facility] Comment on above: Order Comment: Speci men Type: BLOOD SPECIMENOrdering Facility: [facility] Address: [address] [place] [address] Performed By: #### 2 4323-8, 10855-2, 2777-1 ####[facility] LABCLIA [id number] [place] [id number] [place] XR ABDOMEN 1V SUPINEon 07-04 XR ABDOMEN 1V SUPINE Normal [facility] aPTT PPPon 07-04-2024 aPTT Coag (PPP) [Time] 28.2 s Normal 23.0-32.4 [facility] Comment on above: Order Comment: Speci men Type: BLOOD SPECIMENOrdering Facility: [facility] Address: [address] [place] [address] Performed By: #### 3 4528-0, 56684-8 ####[facility] [id number] [place] [address] [place] CBC panel Auto (Bld)on 07-03 Erythrocyte distribution width (RBC) [Ratio] 14.5 % Normal 11.5-15.0 [facility] Comment on above: Order Comment: Speci men Type: BLOOD SPECIMENOrdering Facility: [facility] Address: [address] [place] [address] Performed By: #### 5 8410-2 ####[facility] [id number] [place] [address] [place] Hematocrit (Bld) [Volume fraction] 48.4 % Normal 39.0-51.0 [facility] Comment on above: Order Comment: Speci men Type: BLOOD SPECIMENOrdering Facility: [facility] Address: [address] [place] [address] Performed By: #### 5 8410-2 ####[facility] [id number] [place] [address] [place] Hemoglobin (Bld) [Mass/Vol] 15.7 g/dL Normal 13.0-17.0 [facility] Comment on above: Order Comment: Speci men Type: BLOOD SPECIMENOrdering Facility: [facility] Address: [address] [place] [address] Performed By: #### 5 8410-2 ####[facility] LABIA [id number] [place] [address] [place] MCH (RBC) [Entitic mass] 26.7 pg Normal 26.0-34.0 [facility] Comment on above: Order Comment: Speci men Type: BLOOD SPECIMENOrdering Facility: [facility] Address: [address] [place] [address] Performed By: #### 5 8410-2 ####[facility] [id number] [place] [address] [place] MCHC (RBC) [Mass/Vol] 32.4 g/dL Normal 30.5-36.0 [facility] Comment on above: Order Comment: Speci men Type: BLOOD SPECIMENOrdering Facility: [facility] Address: [address] [place] [address] Performed By: #### 5 8410-2 ####[facility] [id number] [place] [address] [place] MCV (RBC) [Entitic vol] 82.5 fL Normal 80.0-100.0 [facility] Comment on above: Order Comment: Speci men Type: BLOOD SPECIMENOrdering Facility: [facility] Address: [address] [place] [address] Performed By: #### 5 8410-2 ####[facility] [id number] [place] [address] [place] Nucleated RBC (Bld) [#/Vol] 10*3/uL Normal <0.01 [facility] Comment on above: Order Comment: Speci men Type: BLOOD SPECIMENOrdering Facility: [facility] Address: [address] [place] [address] Performed By: #### 5 8410-2 ####[facility] [id number] [place] [address] [place] Platelet mean volume (Bld) [Entitic vol] 10.9 fL Normal 9.0-12.7 [facility] Comment on above: Order Comment: Speci men Type: BLOOD SPECIMENOrdering Facility: [facility] Address: [address] [place] [address] Performed By: #### 5 8410-2 ####[facility] LABCLIA [id number] [place] [address] [place] Platelets (Bld) [#/Vol] 143 10*3/uL Low 150-400 [facility] Comment on above: Order Comment: Speci men Type: BLOOD SPECIMENOrdering Facility: [facility] Address: [address] [place] [address] Performed By: #### 5 8410-2 ####[facility] LABCLIA [id number] [place] [address] [place] RBC (Bld) [#/Vol] 5.87 10*6/uL Normal 4.20-6.00 [facility] Comment on above: Order Comment: Speci men Type: BLOOD SPECIMENOrdering Facility: [facility] [facility] Address: [address] [place] [address] Performed By: #### 5 8410-2 ####[facility] LABCLIA [id number] [place] [address] [place] WBC (Bld) [#/Vol] 8.81 10*3/uL Normal 3.70-11.00 [facility] Comment on above: Order Comment: Speci men Type: BLOOD SPECIMENOrdering Facility: [facility] Address: [address] [place] [address] Performed By: #### 5 8410-2 ####[facility] LABCLIA [id number] [place] [address] [place] CONSULT PROGon 07-03-2024 CONSULT PROG Normal [facility] Comprehensive metabolic 2000 panelon 07-03-2024 Albumin [Mass/Vol] 3.8 g/dL Low 3.9-4.9 [facility] Comment on above: Order Comment: Speci men Type: BLOOD SPECIMENOrdering Facility: [facility] Address: [address] [place] [address] Performed By: #### 2 4323-8, , 2776-12 ####[facility] LABCLIA [id number] [place] [address] [place] ALP [Catalytic activity/Vol] 95 U/L Normal 38-113 [facility] Comment on above: Order Comment: Speci men Type: BLOOD SPECIMENOrdering Facility: [facility] Address: [address] [place] [address] Performed By: #### 2 4323-8, , 2776-12 ####[facility] LABCLIA [id number] [place] [address] [place] ALT [Catalytic activity/Vol] 133 U/L High 10-54 [facility] Comment on above: Order Comment: Speci men Type: BLOOD SPECIMENOrdering Facility: [facility] Address: [address] [place] [address] Performed By: #### 2 4323-8, , 2776-12 ####[facility] LABCLIA [id number] [place] [address] [place] Anion gap [Moles/Vol] 13 mmol/L Normal 8-15 [facility] Comment on above: Order Comment: Speci men Type: BLOOD SPECIMENOrdering Facility: [facility] Address: [address] [place] [address] Performed By: #### 2 4323-8, , 2776-12 ####[facility] LABCLIA [id number] [place] [id number] [place] AST [Catalytic activity/Vol] 70 U/L High 14-40 [facility] Comment on above: Order Comment: Speci men Type: BLOOD SPECIMENOrdering Facility: [facility] Address: [address] [place] [address] Performed By: #### 2 4323-8, , 2776-12 ####[facility] LABCLIA [id number] [address] [address] [place] Bilirubin [Mass/Vol] 1.1 mg/dL Normal 0.2-1.3 [facility] Comment on above: Order Comment: Speci men Type: BLOOD SPECIMENOrdering Facility: [facility] Address: [address] [place] [address] Performed By: #### 2 4323-8, , 2776-12 ####[facility] LABCLIA [id number] [place] [address] [place] Calcium [Mass/Vol] 9.1 mg/dL Normal 8.5-10.2 [facility] Comment on above: Order Comment: Speci men Type: BLOOD SPECIMENOrdering Facility: [facility] Address: [address] [place] [address] Performed By: #### 2 4323-8, , 2776-12 ####[facility] LABCLIA [id number] [address] [address] [place] Chloride [Moles/Vol] 102 mmol/L Normal 98-107 [facility] Comment on above: Order Comment: Speci men Type: BLOOD SPECIMENOrdering Facility: [facility] Address: [address] [place] [address] Performed By: #### 2 4323-8, , 2776-12 ####[facility] LABCLIA [id number] [address] [address] [place] CO2 [Moles/Vol] 21 mmol/L Low 22-30 [facility] Comment on above: Order Comment: Speci men Type: BLOOD SPECIMENOrdering Facility: [facility] Address: [address] [place] [address] Performed By: #### 2 4323-8, 21457-2, 2776-12 ####[facility] LABIA [id number] [address] [address] [place] Creatinine [Mass/Vol] 1.05 mg/dL Normal 0.73-1.22 [facility] Comment on above: Order Comment: Speci men Type: BLOOD SPECIMENOrdering Facility: [facility] Address: [address] [place] [address] Performed By: #### 2 4323-8, , 2776-12 ####[facility] LABIA [id number] [place] [address] [place] Creatinine and Glomerular filtration rate.predicted panel (S/P/Bld) 96 mL/min/1.73m??? Normal >=60 [facility] Comment on above: Order Comment: Khushbu grajeda Type: BLOOD SPECIMENOrdering Facility: [facility] Address: [address] [place] [address] Result Comment: Faye mated Glomerular Filtration Rate [...] actual GFR. Performed By: #### 2 4323-8, , 2776-12 ####[facility] LABIA [id number] [address] [address] [place] Glucose [Mass/Vol] 101 mg/dL High 74-99 [facility] Comment on above: Order Comment: Khushbu grajeda Type: BLOOD SPECIMENOrdering Facility: [facility] Address: [address] [place] [address] Result Comment: The [place] [employer] (ADA) [...] 1). Performed By: #### 2 4323-8, , 2776-12 ####[facility] LABIA [id number] [place] [address] [place] Potassium [Moles/Vol] 3.9 mmol/L Normal 3.7-5.1 [facility] Comment on above: Order Comment: Speci men Type: BLOOD SPECIMENOrdering Facility: [facility] Address: [address] [place] [address] Performed By: #### 2 432-8, , 2776-12 ####[facility] [id number] [place] [address] [place] Protein [Mass/Vol] 6.5 g/dL Normal 6.3-8.0 [facility] Comment on above: Order Comment: Speci men Type: BLOOD SPECIMENOrdering Facility: [facility] Address: [address] [place] [address] Performed By: #### 2 432-8, , 2776-12 ####[facility] LABIA [id number] [place] [id number] [place] Sodium [Moles/Vol] 136 mmol/L Normal 136-144 [facility] Comment on above: Order Comment: Speci men Type: BLOOD SPECIMENOrdering Facility: [facility] Address: [address] [place] [address] Performed By: #### 2 432-8, , 2777-1 ####[facility] LABCLIA [id number] [address] [address] [place] Urea nitrogen [Mass/Vol] 11 mg/dL Normal 9-24 [facility] Comment on above: Order Comment: Speci men Type: BLOOD SPECIMENOrdering Facility: [facility] Address: [address] [place] [address] Performed By: #### 2 4323-8, 02667-9, 2777-1 ####[facility] LABCLIA [id number] [place] [address] [place] Albumin [Mass/Vol] 3.7 g/dL Low 3.9-4.9 [facility] Comment on above: Order Comment: Speci men Type: BLOOD SPECIMENOrdering Facility: [facility] Address: [address] [place] [address] Performed By: #### 2 4323-8 ####[facility] LABCLIA [id number] [place] [address] [place] ALP [Catalytic activity/Vol] 86 U/L Normal 38-113 [facility] Comment on above: Order Comment: Speci men Type: BLOOD SPECIMENOrdering Facility: [facility] Address: [address] [place] [address] Result Comment: Resu lts may be falsely decreased due to interference from hemolysis. Suggest reorder as clinically indicated. Performed By: #### 2 4323-8 ####[facility] LABCLIA [id number] [place] [id number] [place] ALT [Catalytic activity/Vol] 137 U/L High 10-54 [facility] Comment on above: Order Comment: Speci men Type: BLOOD SPECIMENOrdering Facility: [facility] Address: [address] [place] [address] Result Comment: Resu lts may be falsely increased due to interference from hemolysis. Suggest reorder as clinically indicated. Performed By: #### 2 4323-8 ####[facility] LABCLIA [id number] [place] [address] [place] Anion gap [Moles/Vol] 11 mmol/L Normal 8-15 [facility] Comment on above: Order Comment: Speci men Type: BLOOD SPECIMENOrdering Facility: [facility] Address: [address] [place] [address] Performed By: #### 2 4323-8 ####[facility] LABCLIA [id number] [place] [address] [place] AST [Catalytic activity/Vol] 118 U/L High 14-40 [facility] Comment on above: Order Comment: Speci men Type: BLOOD SPECIMENOrdering Facility: [facility] Address: [address] [place] [address] Result Comment: Resu lts may be falsely increased due to interference from hemolysis. Suggest reorder as clinically indicated. Performed By: #### 2 4323-8 ####[facility] LABIA [id number] [place] [address] [place] Bilirubin [Mass/Vol] 1.0 mg/dL Normal 0.2-1.3 [facility] Comment on above: Order Comment: Speci men Type: BLOOD SPECIMENOrdering Facility: [facility] Address: [address] [place] [address] Performed By: #### 2 4323-8 ####[facility] LABCLIA [id number] [place] [address] [place] Calcium [Mass/Vol] 8.8 mg/dL Normal 8.5-10.2 [facility] Comment on above: Order Comment: Speci men Type: BLOOD SPECIMENOrdering Facility: [facility] Address: [address] [place] [address] Performed By: #### 2 4323-8 ####[facility] LABCLIA [id number] [place] [address] [place] Chloride [Moles/Vol] 100 mmol/L Normal 98-107 [facility] Comment on above: Order Comment: Speci men Type: BLOOD SPECIMENOrdering Facility: [facility] Address: [address] [place] [address] Performed By: #### 2 4323-8 ####[facility] LABCLIA [id number] [place] [id number] [place] CO2 [Moles/Vol] 20 mmol/L Low 22-30 [facility] Comment on above: Order Comment: Speci men Type: BLOOD SPECIMENOrdering Facility: [facility] Address: [address] [place] [address] Performed By: #### 2 4323-8 ####[facility] LABCLIA [id number] [address] [place] Creatinine [Mass/Vol] 0.98 mg/dL Normal 0.73-1.22 [facility] Comment on above: Order Comment: Speci men Type: BLOOD SPECIMENOrdering Facility: [facility] Address: [address] [place] [address] Performed By: #### 2 4323-8 ####[facility] LABCLIA [id number] [address] Creatinine and Glomerular filtration rate.predicted panel (S/P/Bld) 104 mL/min/1.73m??? Normal >=60 [facility] Comment on above: Order Comment: Speci men Type: BLOOD SPECIMENOrdering Facility: [facility] Address: [address] [place] [address] Result Comment: Faye mated Glomerular Filtration Rate [...] #### 2 4323-8 ####[facility] LABCLIA [id number] [place] [address] [place] Glucose [Mass/Vol] 94 mg/dL Normal 74-99 [facility] Comment on above: Order Comment: Speci men Type: BLOOD SPECIMENOrdering Facility: [facility] Address: [address] [place] [address] Result Comment: The [place] [employer] (ADA) [...] #### 2 4323-8 ####[facility] LABCLIA [id number] [place] [address] [place] Potassium [Moles/Vol] Normal [facility] Comment on above: Order Comment: Speci men Type: BLOOD SPECIMENOrdering Facility: [facility] Address: [address] [place] [address] Result Comment: Unab le to assay due to interference from hemolysis. Suggest reorder as clinically indicated. Performed By: #### 2 4323-8 ####[facility] LABCLIA [id number] [place] [address] [place] Protein [Mass/Vol] 6.5 g/dL Normal 6.3-8.0 [facility] Comment on above: Order Comment: Speci men Type: BLOOD SPECIMENOrdering Facility: [facility] Address: [address] [place] [address] Performed By: #### 2 4323-8 ####[facility] LABCLIA [id number] [place] [address] [place] Sodium [Moles/Vol] 131 mmol/L Low 136-144 [facility] Comment on above: Order Comment: Speci men Type: BLOOD SPECIMENOrdering Facility: [facility] Address: [address] [place] [address] Performed By: #### 2 4323-8 ####[facility] LABCLIA [id number] [place] [address] [place] Urea nitrogen [Mass/Vol] 11 mg/dL Normal 9-24 [facility] Comment on above: Order Comment: Speci men Type: BLOOD SPECIMENOrdering Facility: [facility] Address: [address] [place] [address] Performed By: #### 2 4323-8 ####[facility] LABCLIA [id number] [place] [address] [place] ECG COMPLETEon 07-03-2024 ECG COMPLETE Normal [facility] Gas and Carbon monoxide pane l (BldV)on 07-03-2024 BASE DEFICIT, VENOUS -1 mmol/L Normal -2-0 [facility] Comment on above: Order Comment: Speci men Type: VENOUS BLOOD SPECIMENOrdering Facility: [facility] Address: [address] [place] [address] Performed By: #### 2 4344-4 ####[facility] LABCLIA [id number] [place] [address] [place] Body temperature 98.6 [degF] Normal [facility] Comment on above: Order Comment: Speci men Type: VENOUS BLOOD SPECIMENOrdering Facility: [facility] Address: [address] [place] [address] Performed By: #### 2 4344-4 ####[facility] LABCLIA [id number] [place] [address] [place] Calcium.ionized (Bld) [Mass/Vol] 1.27 mmol/L Normal 1.08-1.30 [facility] Comment on above: Order Comment: Speci men Type: VENOUS BLOOD SPECIMENOrdering Facility: [facility] Address: [address] [place] [address] Performed By: #### 2 4344-4 ####[facility] LABCLIA [id number] [place] [address] [place] Calcium.ionized adjusted to pH 7.4 (BldA) [Moles/Vol] 1.25 mmol/L Normal 1.08-1.30 [facility] Comment on above: Order Comment: Speci men Type: VENOUS BLOOD SPECIMENOrdering Facility: [facility] Address: [address] [place] [address] Performed By: #### 2 4344-4 ####[facility] LABIA [id number] [place] [address] [place] Carboxyhemoglobin (BldV) [Mass fraction] 1.8 % Normal 0.0-2.0 [facility] Comment on above: Order Comment: Speci men Type: VENOUS BLOOD SPECIMENOrdering Facility: [facility] Address: [address] [place] [address] Result Comment: Carb oxyhemoglobin Reference Range for Smokers: 2.0-8.0% Performed By: #### 2 4344-4 ####[facility] LABIA [id number] [place] [address] [place] CO2 (BldV) [Partial pressure] 42 mm[Hg] Normal 42-55 [facility] Comment on above: Order Comment: Speci men Type: VENOUS BLOOD SPECIMENOrdering Facility: [facility] Address: [address] [place] [address] Performed By: #### 2 4344-4 ####[facility] LABCLIA [id number] [place] [address] [place] Glucose [Mass/Vol] 110 mg/dL High 60-105 [facility] Comment on above: Order Comment: Speci men Type: VENOUS BLOOD SPECIMENOrdering Facility: [facility] Address: [address] [place] [address] Performed By: #### 2 4344-4 ####[facility] LABCLIA [id number] [place] [address] [place] HCO3 (Bld) [Moles/Vol] 24 mmol/L Normal 24-28 [facility] Comment on above: Order Comment: Speci men Type: VENOUS BLOOD SPECIMENOrdering Facility: [facility] Address: [address] [place] [address] Performed By: #### 2 4344-4 ####[facility] LABCLIA [id number] [place] [address] [place] Hematocrit (Bld) [Volume fraction] 50.2 % Normal 39.0-51.0 [facility] Comment on above: Order Comment: Speci men Type: VENOUS BLOOD SPECIMENOrdering Facility: [facility] Address: [address] [place] [address] Performed By: #### 2 4344-4 ####[facility] LABCLIA [id number] [place] [address] [place] Hemoglobin (Bld) [Mass/Vol] 16.4 g/dL Normal 13.0-17.0 [facility] Comment on above: Order Comment: Speci men Type: VENOUS BLOOD SPECIMENOrdering Facility: [facility] Address: [address] [place] [address] Performed By: #### 2 4344-4 ####[facility] LABCLIA [id number] [place] [address] [place] Lactate [Moles/Vol] 0.9 mmol/L Normal 0.5-2.2 [facility] Comment on above: Order Comment: Speci men Type: VENOUS BLOOD SPECIMENOrdering Facility: [facility] Address: [address] [place] [address] Performed By: #### 2 4344-4 ####[facility] LABCLIA [id number] [address] [address] [place] LITERS 2 Liters/min Normal [facility] Comment on above: Order Comment: Speci men Type: VENOUS BLOOD SPECIMENOrdering Facility: [facility] Address: [address] [place], [place] [address] Performed By: #### 2 4344-4 ####[facility] LABCLIA [id number] [place] [id number] [place] Methemoglobin (Bld) [Mass fraction] 1.4 % Normal 0.0-1.5 [facility] Comment on above: Order Comment: Speci men Type: VENOUS BLOOD SPECIMENOrdering Facility: [facility] Address: [address] [place] [address] Performed By: #### 2 4344-4 ####[facility] LABCLIA [id number] [place] [address] [place] O2 THERAPY NC = Nasal Cannula Normal [facility] Comment on above: Order Comment: Speci men Type: VENOUS BLOOD SPECIMENOrdering Facility: [facility] Address: [address] [place], [place] [address] Performed By: #### 2 4344-4 ####[facility] LABCLIA [id number] [place] [address] [place] Oxygen (BldV) [Partial pressure] 55 mm[Hg] High 35-45 [facility] Comment on above: Order Comment: Speci men Type: VENOUS BLOOD SPECIMENOrdering Facility: [facility] Address: [address] [place], [place] [address] Performed By: #### 2 4344-4 ####[facility] LABCLIA [id number] [address] [address] [place] Oxygen saturation in Venous blood 85 % Normal 60-85 [facility] Comment on above: Order Comment: Speci men Type: VENOUS BLOOD SPECIMENOrdering Facility: [facility] Address: [address] [place], [place] [address] Performed By: #### 2 4344-4 ####[facility] LABCLIA [id number] [place] [address] [place] Oxyhemoglobin (BldV) [Mass fraction] 83 % Normal 60-85 [facility] Comment on above: Order Comment: Speci men Type: VENOUS BLOOD SPECIMENOrdering Facility: [facility] Address: [address] [place] [address] Performed By: #### 2 4344-4 ####[facility] LABCLIA [id number] [place] [address] [place] pH (BldV) 7.37 [pH] Normal 7.32-7.42 [facility] Comment on above: Order Comment: Speci men Type: VENOUS BLOOD SPECIMENOrdering Facility: [facility] Address: [address] [place] [address] Performed By: #### 2 4344-4 ####[facility] LABCLIA [id number] [place] [address] [place] Potassium [Moles/Vol] 3.7 mmol/L Normal 3.5-5.0 [facility] Comment on above: Order Comment: Speci men Type: VENOUS BLOOD SPECIMENOrdering Facility: [facility] Address: [address] [place] [address] Performed By: #### 2 4344-4 ####[facility] LABCLIA [id number] [place] [address] [place] Sodium [Moles/Vol] 135 mmol/L Low 136-144 [facility] Comment on above: Order Comment: Speci men Type: VENOUS BLOOD SPECIMENOrdering Facility: [facility] Address: [address] [place], [place] [address] Performed By: #### 2 4344-4 ####[facility] LABCLIA [id number] [place] [address] [place] BASE DEFICIT, VENOUS -1 mmol/L Normal -2-0 [facility] Comment on above: Order Comment: Speci men Type: VENOUS BLOOD SPECIMENOrdering Facility: [facility] Address: [address] [place] [address] Performed By: #### 2 4344-4 ####[facility] LABIA [id number] [place] [address] [place] Body temperature 98.78 [degF] Normal [facility] Comment on above: Order Comment: Speci men Type: VENOUS BLOOD SPECIMENOrdering Facility: [facility] Address: [address] [place] [address] Performed By: #### 2 4344-4 ####[facility] LABIA [id number] [place] [address] [place] Calcium.ionized (Bld) [Mass/Vol] 1.09 mmol/L Normal 1.08-1.30 [facility] Comment on above: Order Comment: Speci men Type: VENOUS BLOOD SPECIMENOrdering Facility: [facility] Address: [address] [place] [address] Performed By: #### 2 4344-4 ####[facility] LABIA [id number] [place] [address] [place] Calcium.ionized adjusted to pH 7.4 (BldA) [Moles/Vol] 1.07 mmol/L Low 1.08-1.30 [facility] Comment on above: Order Comment: Speci men Type: VENOUS BLOOD SPECIMENOrdering Facility: [facility] Address: [address] [place] [address] Performed By: #### 2 4344-4 ####[facility] LABCLIA [id number] [place] [address] [place] Carboxyhemoglobin (BldV) [Mass fraction] 1.7 % Normal 0.0-2.0 [facility] Comment on above: Order Comment: Speci men Type: VENOUS BLOOD SPECIMENOrdering Facility: [facility] Address: [address] [place] [address] Result Comment: Carb oxyhemoglobin Reference Range for Smokers: 2.0-8.0% Performed By: #### 2 4344-4 ####[facility] LABCLIA [id number] [address] [place] CO2 (BldV) [Partial pressure] 42 mm[Hg] Normal 42-55 [facility] Comment on above: Order Comment: Speci men Type: VENOUS BLOOD SPECIMENOrdering Facility: [facility] Address: [address] [place] [address] Performed By: #### 2 4344-4 ####[facility] LABCLIA [id number] [place] [address] [place] CO2 adjusted to patient's actual temperature (BldV) [Partial pressure] 42 mmHg Normal 42-55 [facility] Comment on above: Order Comment: Speci men Type: VENOUS BLOOD SPECIMENOrdering Facility: [facility] Address: [address] [place] [address] Performed By: #### 2 4344-4 ####[facility] LABCLIA [id number] [address] [place] DATE/TIME NOTIFIED [id number] AM Normal C [facility] Comment on above: Order Comment: Speci men Type: VENOUS BLOOD SPECIMENOrdering Facility: [facility] Address: [address] [place] [address] Performed By: #### 2 4344-4 ####[facility] LABCLIA [id number] [place] [address] [place] Glucose [Mass/Vol] 106 mg/dL High 60-105 [facility] Comment on above: Order Comment: Speci men Type: VENOUS BLOOD SPECIMENOrdering Facility: [facility] [facility] Address: [address] [place] [address] Performed By: #### 2 4344-4 ####[facility] LABCLIA [id number] [place] [address] [place] HCO3 (Bld) [Moles/Vol] 23 mmol/L Low 24-28 [facility] Comment on above: Order Comment: Speci men Type: VENOUS BLOOD SPECIMENOrdering Facility: [facility] Address: [address] [place] [address] Performed By: #### 2 4344-4 ####[facility] LABCLIA [id number] [place] [address] [place] Hematocrit (Bld) [Volume fraction] 47.1 % Normal 39.0-51.0 [facility] Comment on above: Order Comment: Speci men Type: VENOUS BLOOD SPECIMENOrdering Facility: [facility] Address: [address] [place] [address] Performed By: #### 2 4344-4 ####[facility] LABIA [id number] [place] [address] [place] Hemoglobin (Bld) [Mass/Vol] 15.4 g/dL Normal 13.0-17.0 [facility] Comment on above: Order Comment: Speci men Type: VENOUS BLOOD SPECIMENOrdering Facility: [facility] Address: [address] [place] [address] Performed By: #### 2 4344-4 ####[facility] LABCLIA [id number] [place] [address] [place] Lactate [Moles/Vol] 1.4 mmol/L Normal 0.5-2.2 [facility] Comment on above: Order Comment: Speci men Type: VENOUS BLOOD SPECIMENOrdering Facility: [facility] Address: [address] [place] [address] Performed By: #### 2 4344-4 ####[facility] LABCLIA [id number] [place] [address] [place] Methemoglobin (Bld) [Mass fraction] 1.3 % Normal 0.0-1.5 [facility] Comment on above: Order Comment: Speci men Type: VENOUS BLOOD SPECIMENOrdering Facility: [facility] Address: [address] [id number] Performed By: #### 2 4344-4 ####[facility] LABCLIA [id number] [address] [place] NOTIFIED WHOM Basilia Pratt RN G0Julieta Napoles Normal [facility] Comment on above: Order Comment: Speci men Type: VENOUS BLOOD SPECIMENOrdering Facility: [facility] Address: [address] [place] [address] Performed By: #### 2 4344-4 ####[facility] LABCLIA [id number] [place] [address] [place] O2 THERAPY RA=Room Air Normal [facility] Comment on above: Order Comment: Speci men Type: VENOUS BLOOD SPECIMENOrdering Facility: [facility] Address: [address] [place], [place] [address] Performed By: #### 2 4344-4 ####[facility] LABCLIA [id number] [place] [address] [place] Oxygen (BldV) [Partial pressure] 62 mm[Hg] High 35-45 [facility] Comment on above: Order Comment: Speci men Type: VENOUS BLOOD SPECIMENOrdering Facility: [facility] Address: [address] [id number] Performed By: #### 2 4344-4 ####[facility] LABCLIA [id number] [place] [address] [place] Oxygen adjusted to patient's actual temperature (BldV) [Partial pressure] 63 mmHg High 35-45 [facility] Comment on above: Order Comment: Speci men Type: VENOUS BLOOD SPECIMENOrdering Facility: [facility] Address: [address] [place] [address] Performed By: #### 2 4344-4 ####[facility] LABCLIA [id number] [address] [address] [place] Oxygen saturation in Venous blood 91 % High 60-85 [facility] Comment on above: Order Comment: Speci men Type: VENOUS BLOOD SPECIMENOrdering Facility: [facility] Address: [address] [place] [address] Performed By: #### 2 4344-4 ####[facility] LABCLIA [id number] [place] [address] [place] Oxyhemoglobin (BldV) [Mass fraction] 89 % High 60-85 [facility] Comment on above: Order Comment: Speci men Type: VENOUS BLOOD SPECIMENOrdering Facility: [facility] Address: [address] [place] [address] Performed By: #### 2 4344-4 ####[facility] LABCLIA [id number] [place] [address] [place] pH (BldV) 7.37 [pH] Normal 7.32-7.42 [facility] Comment on above: Order Comment: Speci men Type: VENOUS BLOOD SPECIMENOrdering Facility: [facility] Address: [address] [place] [address] Performed By: #### 2 4344-4 ####[facility] LABCLIA [id number] [place] [address] [place] pH adjusted to patient's actual temperature (BldV) 7.37 Normal 7.32-7.42 [facility] Comment on above: Order Comment: Speci men Type: VENOUS BLOOD SPECIMENOrdering Facility: [facility] Address: [address] [place] [address] Performed By: #### 2 4344-4 ####[facility] LABCLIA [id number] [place] [address] [place] Potassium [Moles/Vol] Normal [facility] Comment on above: Order Comment: Speci men Type: VENOUS BLOOD SPECIMENOrdering Facility: [facility] Address: [address] [place] [address] Result Comment: Unab le to assay due to interference from hemolysis. Suggest reorder as clinically indicated. Performed By: #### 2 4344-4 ####[facility] LABIA [id number] [place] [address] [place] Sodium [Moles/Vol] 126 mmol/L Low 136-144 [facility] Comment on above: Order Comment: Speci men Type: VENOUS BLOOD SPECIMENOrdering Facility: [facility] Address: [address] [place] [address] Performed By: #### 2 4344-4 ####[facility] LABIA [id number] [place] [address] [place] HISTORY PHYSICALon HISTORY PHYSICAL Normal [facility] MEDICAL EMERon 07-03-2024 MEDICAL BURKE Normal [facility] Magnesium SerPl-mCncon 07-03 Magnesium [Mass/Vol] 1.8 mg/dL Normal 1.7-2.3 [facility] Comment on above: Order Comment: Speci men Type: BLOOD SPECIMENOrdering Facility: [facility] Address: [address] [place] [address] Performed By: #### 2 4323-8, 29555-4, 2777-1 ####[facility] LABIA [id number] [place] [address] [place] PT panel Coag (PPP)on 2023 INR Coag (PPP) [Relative time] 1.0 {INR} Normal 0.9-1.3 [facility] Comment on above: Order Comment: Speci men Type: BLOOD SPECIMENOrdering Facility: [facility] Address: [address] [place] [address] Result Comment: Salma min K Antagonist (VKA) [...] al. Chest 2012, 141:7S-47SNishimura RA, et al. [facility] 2017, 70: 252-289 Performed By: #### 3 4528-0, 32041-0 ####[facility] [id number] [place] [address] [place] PT Coag (PPP) [Time] 11.0 s Normal 9.7-13.0 [facility] Comment on above: Order Comment: Khushbu grajeda Type: BLOOD SPECIMENOrdering Facility: [facility] Address: [address] [place] [address] Performed By: #### 3 4528-0, 54471-9 ####[facility] [id number] [place] [address] [place] INR Coag (PPP) [Relative time] 1.0 {INR} Normal 0.9-1.3 [facility] Comment on above: Order Comment: Khushbu grajeda Type: BLOOD SPECIMENOrdering Facility: [facility] Address: [address] [place] [address] Result Comment: Salma min K Antagonist (VKA) [...] al. Chest 2012, 141:7S-47SNishimura RA, et al. [facility] 2017, 70: 252-289 Performed By: #### 3 4528-0 ####[facility] [id number] [place] [address] [place] PT Coag (PPP) [Time] 11.0 s Normal 9.7-13.0 [facility] Comment on above: Order Comment: Speci men Type: BLOOD SPECIMENOrdering Facility: [facility] Address: [address] [place] [address] Performed By: #### 3 4528-0 ####[facility] [id number] [place] [address] [place] Phosphate SerPl-mCncon 07-03 Phosphate [Mass/Vol] 3.0 mg/dL Normal 2.7-4.8 [facility] Comment on above: Order Comment: Speci men Type: BLOOD SPECIMENOrdering Facility: [facility] Address: [address] [place] [address] Performed By: #### 2 4323-8, 35110-6, 2777-1 ####[facility] [id number] [place] [address] [place] STAPHYLOCOCCUS AUREUS AND MR SA SCREEN, PCR, NASALon 07-03-2024 S. aureus and MRSA panel GERMÁN+probe (Nose) Not detected Normal Not Detected [facility] Comment on above: Order Comment: Speci men Type: SWABOrdering Facility: [facility] Address: [address] [place], [place] [address] Performed By: #### S APCR ####[facility] LABCLIA [id number] [address] [address] [place] THERAPY NTon 07-03-2024 THERAPY NT Normal [facility] XR ABDOMEN 1V SUPINEon 07-03 XR ABDOMEN 1V SUPINE Normal [facility] XR ABDOMEN 1V SUPINE Normal [facility] XR CHEST 1V FRONTAL PORTon 0 07-03-2024 XR CHEST 1V FRONTAL PORT Normal [facility] aPTT PPPon 07-03-2024 aPTT Coag (PPP) [Time] 28.1 s Normal 23.0-32.4 [facility] Comment on above: Order Comment: Speci men Type: BLOOD SPECIMENOrdering Facility: [facility] Address: [address] [place] [address] Performed By: #### 3 4528-0, 05595-0 ####[facility] LABCLIA [id number] [place] [id number] [place] Basic metabolic 2000 panelon 07-02-2024 Anion gap [Moles/Vol] 16 mmol/L High 8-15 [facility] Comment on above: Order Comment: Speci men Type: BLOOD SPECIMENOrdering Facility: [facility] Address: [address] [place] [address] Performed By: #### 2 4321-2, 35639-8, , 2777-1 ####[facility] LABCLIA [id number] [place] [id number] [place] Calcium [Mass/Vol] 8.8 mg/dL Normal 8.5-10.2 [facility] Comment on above: Order Comment: Speci men Type: BLOOD SPECIMENOrdering Facility: [facility] Address: [address] [place] [address] Performed By: #### 2 4321-2, 78779-1, 08414-0, 2777-1 ####[facility] LABCLIA [id number] [address] [address] [place] Chloride [Moles/Vol] 101 mmol/L Normal 98-107 [facility] Comment on above: Order Comment: Speci men Type: BLOOD SPECIMENOrdering Facility: [facility] Address: [address] [place] [address] Performed By: #### 2 4321-2, 22408-9, 70203-8, 2777-1 ####[facility] LABIA [id number] [place] [address] [place] CO2 [Moles/Vol] 18 mmol/L Low 22-30 [facility] Comment on above: Order Comment: Speci men Type: BLOOD SPECIMENOrdering Facility: [facility] Address: [address] [place] [address] Performed By: #### 2 4321-2, 39953-1, 45530-0, 2777-1 ####[facility] LABIA [id number] [place] [address] [place] Creatinine [Mass/Vol] 0.99 mg/dL Normal 0.73-1.22 [facility] Comment on above: Order Comment: Speci men Type: BLOOD SPECIMENOrdering Facility: [facility] Address: [address] [place] [address] Performed By: #### 2 4321-2, 44851-7, 46474-0, 2777-1 ####[facility] LABIA [id number] [place] [address] [place] Creatinine and Glomerular filtration rate.predicted panel (S/P/Bld) 103 mL/min/1.73m??? Normal >=60 [facility] Comment on above: Order Comment: Speci men Type: BLOOD SPECIMENOrdering Facility: [facility] Address: [address] [place] [address] Result Comment: Faye mated Glomerular Filtration Rate [...] actual GFR. Performed By: #### 2 4321-2, 58348-0, , 2776- ####[facility] LABIA [id number] [address] [address] [place] Glucose [Mass/Vol] 91 mg/dL Normal 74-99 [facility] Comment on above: Order Comment: Khushbu grajeda Type: BLOOD SPECIMENOrdering Facility: [facility] Address: [address] [place] [address] Result Comment: The [place] [employer] (ADA) [...] 2016.39(Suppl 1). Performed By: #### 2 4321-2, 00384-9, , 2776-12 ####[facility] LABIA [id number] [address] [address] [place] Potassium [Moles/Vol] Normal [facility] Comment on above: Order Comment: Khushbu grajeda Type: BLOOD SPECIMENOrdering Facility: [facility] Address: [address] [place] [address] Result Comment: Unab le to assay due to interference from hemolysis. Suggest reorder as clinically indicated. Performed By: #### 2 4321-2, 79724-9, , 2776- ####[facility] LABCLIA [id number] [address] [address] [place] Sodium [Moles/Vol] 135 mmol/L Low 136-144 [facility] Comment on above: Order Comment: Speci men Type: BLOOD SPECIMENOrdering Facility: [facility] Address: [address] [place] [address] Performed By: #### 2 4321-2, 67040-5, 34689-7, 2776- ####[facility] LABCLIA [id number] [address] [address] [place] Urea nitrogen [Mass/Vol] 11 mg/dL Normal 9-24 [facility] Comment on above: Order Comment: Speci men Type: BLOOD SPECIMENOrdering Facility: [facility] Address: [address] [place] [address] Performed By: #### 2 4321-2, 22154-4, 96161-8, 2776-12 ####[facility] LABIA [id number] [place] [id number] [place] CASE MANAGEMon 07-02-2024 CASE MANAGEM Normal [facility] CBC W Auto Differential pane l (Bld)on 07-02-2024 Basophils (Bld) [#/Vol] 0.08 10*3/uL Normal <0.11 [facility] Comment on above: Order Comment: Speci men Type: BLOOD SPECIMENOrdering Facility: [facility] Address: [address] [place] [address] Performed By: #### 5 7021-8 ####[facility] LABCLIA [id number] [place] [address] [place] Basophils/100 WBC (Bld) 0.8 % Normal [facility] Comment on above: Order Comment: Speci men Type: BLOOD SPECIMENOrdering Facility: [facility] Address: [address] [place] [address] Performed By: #### 5 7021-8 ####[facility] LABCLIA [id number] [place] [address] [place] Differential cell count method Nom (Bld) Auto Normal [facility] Comment on above: Order Comment: Speci men Type: BLOOD SPECIMENOrdering Facility: [facility] Address: [address] [place] [address] Performed By: #### 5 7021-8 ####[facility] LABCLIA [id number] [place] [address] [place] Eosinophils (Bld) [#/Vol] 0.59 10*3/uL High <0.46 [facility] Comment on above: Order Comment: Speci men Type: BLOOD SPECIMENOrdering Facility: [facility] Address: [address] [place] [address] Performed By: #### 5 7021-8 ####[facility] LABCLIA [id number] [place] [address] [place] Eosinophils/100 WBC (Bld) 5.8 % Normal [facility] Comment on above: Order Comment: Speci men Type: BLOOD SPECIMENOrdering Facility: [facility] Address: [address] [place] [address] Performed By: #### 5 7021-8 ####[facility] LABCLIA [id number] [place] [address] [place] Erythrocyte distribution width (RBC) [Ratio] 14.7 % Normal 11.5-15.0 [facility] Comment on above: Order Comment: Speci men Type: BLOOD SPECIMENOrdering Facility: [facility] Address: [address] [place] [address] Performed By: #### 5 7021-8 ####[facility] LABCLIA [id number] [place] [address] [place] Hematocrit (Bld) [Volume fraction] 50.2 % Normal 39.0-51.0 [facility] Comment on above: Order Comment: Speci men Type: BLOOD SPECIMENOrdering Facility: [facility] Address: [address] [place] [address] Performed By: #### 5 7021-8 ####[facility] LABCLIA [id number] [place] [address] [place] Hemoglobin (Bld) [Mass/Vol] 15.6 g/dL Normal 13.0-17.0 [facility] Comment on above: Order Comment: Speci men Type: BLOOD SPECIMENOrdering Facility: [facility] Address: [address] [place] [address] Performed By: #### 5 7021-8 ####[facility] LABCLIA [id number] [place] [address] [place] Immature granulocytes (Bld) [#/Vol] 0.07 10*3/uL Normal <0.10 [facility] Comment on above: Order Comment: Speci men Type: BLOOD SPECIMENOrdering Facility: [facility] Address: [address] [place] [address] Performed By: #### 5 7021-8 ####[facility] LABIA [id number] [place] [address] [place] Immature granulocytes/100 WBC (Bld) 0.7 % Normal [facility] Comment on above: Order Comment: Speci men Type: BLOOD SPECIMENOrdering Facility: [facility] Address: [address] [place] [address] Performed By: #### 5 7021-8 ####[facility] LABCLIA [id number] [place] [address] [place] Lymphocytes (Bld) [#/Vol] 1.51 10*3/uL Normal 1.00-4.00 [facility] Comment on above: Order Comment: Speci men Type: BLOOD SPECIMENOrdering Facility: [facility] Address: [address] [place] [address] Performed By: #### 5 7021-8 ####[facility] LABIA [id number] [place] [address] [place] Lymphocytes/100 WBC (Bld) 14.9 % Normal [facility] Comment on above: Order Comment: Speci men Type: BLOOD SPECIMENOrdering Facility: [facility] Address: [address] [place] [address] Performed By: #### 5 7021-8 ####[facility] LABIA [id number] [place] [address] [place] MCH (RBC) [Entitic mass] 26.6 pg Normal 26.0-34.0 [facility] Comment on above: Order Comment: Speci men Type: BLOOD SPECIMENOrdering Facility: [facility] Address: [address] [place] [address] Performed By: #### 5 7021-8 ####[facility] LABIA [id number] [place] [address] [place] MCHC (RBC) [Mass/Vol] 31.1 g/dL Normal 30.5-36.0 [facility] Comment on above: Order Comment: Speci men Type: BLOOD SPECIMENOrdering Facility: [facility] Address: [address] [place] [address] Performed By: #### 5 7021-8 ####[facility] LABIA [id number] [place] [address] [place] MCV (RBC) [Entitic vol] 85.5 fL Normal 80.0-100.0 [facility] Comment on above: Order Comment: Speci men Type: BLOOD SPECIMENOrdering Facility: [facility] Address: [address] [place] [address] Performed By: #### 5 7021-8 ####[facility] LABIA [id number] [place] [address] [place] Monocytes (Bld) [#/Vol] 0.89 10*3/uL High <0.87 [facility] Comment on above: Order Comment: Speci men Type: BLOOD SPECIMENOrdering Facility: [facility] Address: [address] [place] [address] Performed By: #### 5 7021-8 ####[facility] LABCLIA [id number] [place] [address] [place] Monocytes/100 WBC (Bld) 8.8 % Normal [facility] Comment on above: Order Comment: Speci men Type: BLOOD SPECIMENOrdering Facility: [facility] Address: [address] [place] [address] Performed By: #### 5 7021-8 ####[facility] LABCLIA [id number] [place] [address] [place] Neutrophils (Bld) [#/Vol] 6.97 10*3/uL Normal 1.45-7.50 [facility] Comment on above: Order Comment: Speci men Type: BLOOD SPECIMENOrdering Facility: [facility] Address: [address] [place] [address] Performed By: #### 5 7021-8 ####[facility] LABCLIA [id number] [place] [address] [place] Neutrophils/100 WBC (Bld) 69.0 % Normal [facility] Comment on above: Order Comment: Speci men Type: BLOOD SPECIMENOrdering Facility: [facility] Address: [address] [place] [address] Performed By: #### 5 7021-8 ####[facility] LABCLIA [id number] [place] [address] [place] Nucleated RBC (Bld) [#/Vol] 10*3/uL Normal <0.01 [facility] Comment on above: Order Comment: Speci men Type: BLOOD SPECIMENOrdering Facility: [facility] Address: [address] [place] [address] Performed By: #### 5 7021-8 ####[facility] LABCLIA [id number] [place] [address] [place] Nucleated RBC/100 WBC (Bld) [Ratio] 0.0 /100 WBC Normal [facility] Comment on above: Order Comment: Speci men Type: BLOOD SPECIMENOrdering Facility: [facility] Address: [address] [place] [address] Performed By: #### 5 7021-8 ####[facility] LABIA [id number] [place] [address] [place] Platelet mean volume (Bld) [Entitic vol] 11.6 fL Normal 9.0-12.7 [facility] Comment on above: Order Comment: Speci men Type: BLOOD SPECIMENOrdering Facility: [facility] Address: [address] [place] [address] Performed By: #### 5 7021-8 ####[facility] LABIA [id number] [place] [address] [place] Platelets (Bld) [#/Vol] 121 10*3/uL Low 150-400 [facility] Comment on above: Order Comment: Speci men Type: BLOOD SPECIMENOrdering Facility: [facility] Address: [address] [place] [address] Result Comment: Resu lts checked and verified.No clot detected. Performed By: #### 5 7021-8 ####[facility] LABIA [id number] [place] [address] [place] RBC (Bld) [#/Vol] 5.87 10*6/uL Normal 4.20-6.00 [facility] Comment on above: Order Comment: Speci men Type: BLOOD SPECIMENOrdering Facility: [facility] Address: [address] [place] [address] Performed By: #### 5 7021-8 ####[facility] LABCLIA [id number] [place] [address] [place] WBC (Bld) [#/Vol] 10.11 10*3/uL Normal 3.70-11.00 [facility] Comment on above: Order Comment: Speci men Type: BLOOD SPECIMENOrdering Facility: [facility] Address: [address] [place] [address] Performed By: #### 5 7021-8 ####[facility] LABCLIA [id number] [place] [address] [place] CONSULT PROGon 07-02-2024 CONSULT PROG Normal [facility] Hepatic function 2000 panelo n 07-02-2024 Albumin [Mass/Vol] 3.8 g/dL Low 3.9-4.9 [facility] Comment on above: Order Comment: Speci men Type: BLOOD SPECIMENOrdering Facility: [facility] Address: [address] [place] [address] Performed By: #### 2 4321-2, 68358-0, 92750-4, 2777-1 ####[facility] LABCLIA [id number] [place] [address] [place] ALP [Catalytic activity/Vol] 97 U/L Normal 38-113 [facility] Comment on above: Order Comment: Speci men Type: BLOOD SPECIMENOrdering Facility: [facility] Address: [address] [place] [address] Result Comment: Resu lts may be falsely decreased due to interference from hemolysis. Suggest reorder as clinically indicated. Performed By: #### 2 4321-2, 45580-2, 93698-4, 2777-1 ####[facility] LABIA [id number] [place] [address] [place] ALT [Catalytic activity/Vol] 172 U/L High 10-54 [facility] Comment on above: Order Comment: Speci men Type: BLOOD SPECIMENOrdering Facility: [facility] Address: [address] [place] [address] Result Comment: Resu lts may be falsely increased due to interference from hemolysis. Suggest reorder as clinically indicated. Performed By: #### 2 4321-2, 96949-2, , 2776- ####[facility] LABCLIA [id number] [facility] [address] [place] AST [Catalytic activity/Vol] 132 U/L High 14-40 [facility] Comment on above: Order Comment: Speci men Type: BLOOD SPECIMENOrdering Facility: [facility] Address: [address] [place] [address] Result Comment: Resu lts may be falsely increased due to interference from hemolysis. Suggest reorder as clinically indicated. Performed By: #### 2 4321-2, 40160-9, , 2776-12 ####[facility] LABCLIA [id number] [facility] [address] [place] Bilirubin [Mass/Vol] 1.0 mg/dL Normal 0.2-1.3 [facility] Comment on above: Order Comment: Speci men Type: BLOOD SPECIMENOrdering Facility: [facility] Address: [address] [place] [address] Performed By: #### 2 4321-2, 86047-8, , 2776-12 ####[facility] LABCLIA [id number] [facility] [address] [place] Bilirubin.conjugate d [Mass/Vol] mg/dL Normal <0.2 [facility] Comment on above: Order Comment: Speci men Type: BLOOD SPECIMENOrdering Facility: [facility] Address: [address] [place] [address] Result Comment: Resu lts may be falsely decreased due to interference from hemolysis. Suggest reorder as clinically indicated. Performed By: #### 2 4321-2, 81890-1, , 2776- ####[facility] LABCLIA [id number] [place] [id number] [place] Protein [Mass/Vol] 6.7 g/dL Normal 6.3-8.0 [facility] Comment on above: Order Comment: Speci men Type: BLOOD SPECIMENOrdering Facility: [facility] Address: [address] [place] [address] Performed By: #### 2 4321-2, 33222-2, 89186-8, 7-1 ####[facility] LABCLIA [id number] [place] [id number] [place] Magnesium SerPl-ncon 07-02 Magnesium [Mass/Vol] 2.0 mg/dL Normal 1.7-2.3 [facility] Comment on above: Order Comment: Speci men Type: BLOOD SPECIMENOrdering Facility: [facility] Address: [address] [place] [address] Performed By: #### 2 4321-2, 65511-9, , 2776- ####[facility] LABCLIA [id number] [place] [id number] [place] Phosphate SerPl-mCncon 07-02 Phosphate [Mass/Vol] 3.0 mg/dL Normal 2.7-4.8 [facility] Comment on above: Order Comment: Speci men Type: BLOOD SPECIMENOrdering Facility: [facility] Address: [address] [place] [address] Performed By: #### 2 4321-2, 18097-6, , 7- ####[facility] LABIA [id number] [place] [id number] [place] TOXICOLOGY PANEL BLDon 07-02 Acetaminophen [Mass/Vol] ug/mL Low 10-30 [facility] Comment on above: Order Comment: Speci men Type: BLOOD SPECIMENOrdering Facility: [facility] Address: [address] [place] [address] Result Comment: Toxi c > 150 ug/mL 4 hours post ingestionThe Jhoana Gordon nomogram can be used to estimate the probability of hepatotoxicity via the relationship of plasma acetaminophen concentration to the post ingestion interval. (Sonia. Pediatrics. 1975. 55:871 to 876 and Jhoana et al. [employer] Med. 1981. 141:380 to 385).Reference ranges and high/low indicator flags are provided as general guidelines only. The treating physician must determine appropriate target levels/dosing based on the specific clinical situation. Performed By: #### T OXP ####[facility] LABCLIA [id number] [place] [address] [place] Ethanol [Mass/Vol] mg/dL Normal <11 [facility] Comment on above: Order Comment: Khushbu grajeda Type: BLOOD SPECIMENOrdering Facility: [facility] Address: [address] [place] [address] Performed By: #### T OXP ####[facility] LABCLIA [id number] [place] [address] [place] Salicylates [Mass/Vol] mg/dL Low 3.0-30.0 [facility] Comment on above: Order Comment: Khushbu grajeda Type: BLOOD SPECIMENOrdering Facility: [facility] Address: [address] [place] [address] Result Comment: The therapeutic range varies and has been reported to be 3.0 to 10.0 mg/dL for anti pyretic/analgesic conditions and 15.0 to 30.0 mg/dL for anti inflammatory/rheumatic fever conditions. Ranges published by the instrument tare man.Reference ranges and high/low indicator flags are provided as general guidelines only. The treating physician must determine appropriate target levels/dosing based on the specific clinical situation. Performed By: #### T OXP ####[facility] LABIA [id number] [place] [address] [place] TOXICOLOGY SCREEN, ROUTINE U RINEon 07-02-2024 Amphetamines Confirm (U) [Mass/Vol] Positive Abnormal Negative [facility] Comment on above: Order Comment: Khushbu grajeda Type: URINE SPECIMENOrdering Facility: [facility] Address: [address] [place] [address] Result Comment: Cuto ff threshold at 1000 ng/mL. Performed By: #### U TOX2 ####[facility] LABCLIA [id number] [place] [address] [place] BARBITURATES, URINE Negative Normal Negative [facility] Comment on above: Order Comment: Speci men Type: URINE SPECIMENOrdering Facility: [facility] Address: [address] [place] [address] Result Comment: Cuto ff threshold at 200 ng/mL. Performed By: #### U TOX2 ####[facility] LABCLIA [id number] [place] [address] [place] BENZODIAZEPINES, UR Positive Abnormal Negative [facility] Comment on above: Order Comment: Speci men Type: URINE SPECIMENOrdering Facility: [facility] Address: [address] [place] [address] Result Comment: Cuto ff threshold at 200 ng/mL. Performed By: #### U TOX2 ####[facility] LABCLIA [id number] [place] [address] [place] Cannabinoids Screen Ql (U) Positive Abnormal Negative [facility] Comment on above: Order Comment: Speci men Type: URINE SPECIMENOrdering Facility: [facility] Address: [address] [place] [address] Result Comment: Cuto ff threshold at 50 ng/mL. Performed By: #### U TOX2 ####[facility] LABCLIA [id number] [place] [address] [place] Cocaine Ql (U) Negative Normal Negative [facility] Comment on above: Order Comment: Speci men Type: URINE SPECIMENOrdering Facility: [facility] Address: [address] [place] [address] Result Comment: Cuto ff threshold at 300 ng/mL. Performed By: #### U TOX2 ####[facility] LABCLIA [id number] [place] [address] [place] Ethanol (U) [Mass/Vol] <11 Normal <11 [facility] Comment on above: Order Comment: Speci men Type: URINE SPECIMENOrdering Facility: [facility] Address: [address] [place] [address] Performed By: #### U TOX2 ####[facility] LABCLIA [id number] [place] [address] [place] Opiates Screen Ql (U) Positive Abnormal Negative [facility] Comment on above: Order Comment: Speci men Type: URINE SPECIMENOrdering Facility: [facility] Address: [address] [place] [address] Result Comment: Cuto ff threshold at 300 ng/mL. Performed By: #### U TOX2 ####[facility] LABCLIA [id number] [place] [address] [place] oxyCODONE cutoff Screen (U) [Mass/Vol] Positive Abnormal Negative [facility] Comment on above: Order Comment: Speci men Type: URINE SPECIMENOrdering Facility: [facility] Address: [address] [place] [address] Result Comment: Cuto ff threshold at 100 ng/mL. Performed By: #### U TOX2 ####[facility] LABCLIA [id number] [place] [address] [place] Phencyclidine Ql (U) Negative Normal Negative [facility] Comment on above: Order Comment: Speci men Type: URINE SPECIMENOrdering Facility: [facility] Address: [address] [place] [address] Result Comment: Cuto ff threshold at 25 ng/mL. Performed By: #### U TOX2 ####[facility] LABCLIA [id number] [place] [address] [place] Basic metabolic 2000 panelon 07-01-2024 Anion gap [Moles/Vol] 16 mmol/L High 8-15 [facility] Comment on above: Order Comment: Speci men Type: BLOOD SPECIMENOrdering Facility: [facility] Address: [address] [place] [address] Performed By: #### 1 9123-9, 2777-1, 27382-3, 08508-1 ####[facility] LABCLIA [id number] [facility] [place] [address] [place] Calcium [Mass/Vol] 7.5 mg/dL Low 8.5-10.2 [facility] Comment on above: Order Comment: Speci men Type: BLOOD SPECIMENOrdering Facility: [facility] Address: [address] [place] [address] Result Comment: Resu lt rechecked. Performed By: #### 1 9123-9, 2777-1, 80396-3, 12998-1 ####[facility] LABCLIA [id number] [place] [address] [place] Chloride [Moles/Vol] 104 mmol/L Normal 98-107 [facility] Comment on above: Order Comment: Speci men Type: BLOOD SPECIMENOrdering Facility: [facility] Address: [address] [place] [address] Performed By: #### 1 9123-9, 2777-1, 94069-2, 08165-5 ####[facility] LABCLIA [id number] [facility] [address] [place] CO2 [Moles/Vol] 16 mmol/L Low 22-30 [facility] Comment on above: Order Comment: Speci men Type: BLOOD SPECIMENOrdering Facility: [facility] Address: [address] [place] [address] Performed By: #### 1 9123-9, 2777-1, 19060-5, 91708-7 ####[facility] LABCLIA [id number] [facility] [place] [address] [place] Creatinine [Mass/Vol] 0.74 mg/dL Normal 0.73-1.22 [facility] Comment on above: Order Comment: Khushbu grajeda Type: BLOOD SPECIMENOrdering Facility: [facility] Address: [address] [place] [address] Performed By: #### 1 9123-9, 2777-1, 78012-9, 21178-3 ####[facility] LABCLIA [id number] [place] [address] [place] Creatinine and Glomerular filtration rate.predicted panel (S/P/Bld) 123 mL/min/1.73m??? Normal >=60 [facility] Comment on above: Order Comment: Khushbu grajeda Type: BLOOD SPECIMENOrdering Facility: [facility] Address: [address] [place] [address] Result Comment: Faye mated Glomerular Filtration Rate [...] GFR. Performed By: #### 1 9123-9, 2777-1, 87701-4, 11669-9 ####[facility] LABCLIA [id number] [place] [address] [place] Glucose [Mass/Vol] 82 mg/dL Normal 74-99 [facility] Comment on above: Order Comment: Khushbu grajeda Type: BLOOD SPECIMENOrdering Facility: [facility] Address: [address] [place] [address] Result Comment: The [place] [employer] (ADA) [...] 1). Performed By: #### 1 9123-9, 2777-1, 88748-9, 56968-2 ####[facility] LABCLIA [id number] [place] [address] [place] Potassium [Moles/Vol] 4.1 mmol/L Normal 3.7-5.1 [facility] Comment on above: Order Comment: Speci men Type: BLOOD SPECIMENOrdering Facility: [facility] Address: [address] [place] [address] Performed By: #### 1 9123-9, 2777-1, 63508-1, 25375-4 ####[facility] LABIA [id number] [place] [address] [place] Sodium [Moles/Vol] 136 mmol/L Normal 136-144 [facility] Comment on above: Order Comment: Speci men Type: BLOOD SPECIMENOrdering Facility: [facility] Address: [address] [place] [address] Performed By: #### 1 9123-9, 2777-1, 74925-7, 18625-1 ####[facility] LABIA [id number] [place] [address] [place] Urea nitrogen [Mass/Vol] 7 mg/dL Low 9-24 [facility] Comment on above: Order Comment: Speci men Type: BLOOD SPECIMENOrdering Facility: [facility] Address: [address] [place] [address] Performed By: #### 1 9123-9, 2777-1, 82845-6, 47867-4 ####[facility] LABCLIA [id number] [place] [id number] [place] CASE MGT INIT ASSESon 2023 CASE MGT INIT ASSES Normal [facility] CBC W Auto Differential pane l (Bld)on 07-01-2024 Basophils (Bld) [#/Vol] 0.03 10*3/uL Normal <0.11 [facility] Comment on above: Order Comment: Speci men Type: BLOOD SPECIMENOrdering Facility: [facility] Address: [address] [place] [address] Performed By: #### 5 7021-8 ####[facility] LABCLIA [id number] [place] [address] [place] Basophils/100 WBC (Bld) 0.3 % Normal [facility] Comment on above: Order Comment: Speci men Type: BLOOD SPECIMENOrdering Facility: [facility] Address: [address] [place] [address] Performed By: #### 5 7021-8 ####[facility] LABCLIA [id number] [place] [address] [place] Differential cell count method Nom (Bld) Auto Normal [facility] Comment on above: Order Comment: Speci men Type: BLOOD SPECIMENOrdering Facility: [facility] Address: [address] [place] [address] Performed By: #### 5 7021-8 ####[facility] LABCLIA [id number] [place] [address] [place] Eosinophils (Bld) [#/Vol] 10*3/uL Normal <0.46 [facility] Comment on above: Order Comment: Speci men Type: BLOOD SPECIMENOrdering Facility: [facility] Address: [address] [place] [address] Performed By: #### 5 7021-8 ####[facility] LABCLIA [id number] [place] [address] [place] Eosinophils/100 WBC (Bld) 0.0 % Normal [facility] Comment on above: Order Comment: Speci men Type: BLOOD SPECIMENOrdering Facility: [facility] Address: [address] [place] [address] Performed By: #### 5 7021-8 ####[facility] LABIA [id number] [place] [address] [place] Erythrocyte distribution width (RBC) [Ratio] 14.5 % Normal 11.5-15.0 [facility] Comment on above: Order Comment: Speci men Type: BLOOD SPECIMENOrdering Facility: [facility] Address: [address] [place] [address] Performed By: #### 5 7021-8 ####[facility] LABIA [id number] [place] [address] [place] Hematocrit (Bld) [Volume fraction] 39.0 % Normal 39.0-51.0 [facility] Comment on above: Order Comment: Speci men Type: BLOOD SPECIMENOrdering Facility: [facility] Address: [address] [place] [address] Performed By: #### 5 7021-8 ####[facility] LABIA [id number] [place] [address] [place] Hemoglobin (Bld) [Mass/Vol] 12.3 g/dL Low 13.0-17.0 [facility] Comment on above: Order Comment: Speci men Type: BLOOD SPECIMENOrdering Facility: [facility] Address: [address] [place] [address] Performed By: #### 5 7021-8 ####[facility] LABIA [id number] [place] [address] [place] Immature granulocytes (Bld) [#/Vol] 0.04 10*3/uL Normal <0.10 [facility] Comment on above: Order Comment: Speci men Type: BLOOD SPECIMENOrdering Facility: [facility] Address: [address] [place] [address] Performed By: #### 5 7021-8 ####[facility] LABCLIA [id number] [place] [address] [place] Immature granulocytes/100 WBC (Bld) 0.4 % Normal [facility] Comment on above: Order Comment: Speci men Type: BLOOD SPECIMENOrdering Facility: [facility] Address: [address] [place] [address] Performed By: #### 5 7021-8 ####[facility] LABCLIA [id number] [place] [address] [place] Lymphocytes (Bld) [#/Vol] 0.96 10*3/uL Low 1.00-4.00 [facility] Comment on above: Order Comment: Speci men Type: BLOOD SPECIMENOrdering Facility: [facility] Address: [address] [place] [address] Performed By: #### 5 7021-8 ####[facility] LABCLIA [id number] [place] [address] [place] Lymphocytes/100 WBC (Bld) 10.3 % Normal [facility] Comment on above: Order Comment: Speci men Type: BLOOD SPECIMENOrdering Facility: [facility] Address: [address] [place] [address] Performed By: #### 5 7021-8 ####[facility] LABCLIA [id number] [place] [address] [place] MCH (RBC) [Entitic mass] 27.1 pg Normal 26.0-34.0 [facility] Comment on above: Order Comment: Speci men Type: BLOOD SPECIMENOrdering Facility: [facility] Address: [address] [place] [address] Performed By: #### 5 7021-8 ####[facility] LABCLIA [id number] [place] [address] [place] MCHC (RBC) [Mass/Vol] 31.5 g/dL Normal 30.5-36.0 [facility] Comment on above: Order Comment: Speci men Type: BLOOD SPECIMENOrdering Facility: [facility] Address: [address] [place] [address] Performed By: #### 5 7021-8 ####[facility] LABIA [id number] [place] [address] [place] MCV (RBC) [Entitic vol] 85.9 fL Normal 80.0-100.0 [facility] Comment on above: Order Comment: Speci men Type: BLOOD SPECIMENOrdering Facility: [facility] Address: [address] [place] [address] Performed By: #### 5 7021-8 ####[facility] LABIA [id number] [place] [address] [place] Monocytes (Bld) [#/Vol] 0.90 10*3/uL High <0.87 [facility] Comment on above: Order Comment: Speci men Type: BLOOD SPECIMENOrdering Facility: [facility] Address: [address] [place] [address] Performed By: #### 5 7021-8 ####[facility] LABIA [id number] [place] [address] [place] Monocytes/100 WBC (Bld) 9.7 % Normal [facility] Comment on above: Order Comment: Speci men Type: BLOOD SPECIMENOrdering Facility: [facility] Address: [address] [place] [address] Performed By: #### 5 7021-8 ####[facility] LABIA [id number] [place] [address] [place] Neutrophils (Bld) [#/Vol] 7.37 10*3/uL Normal 1.45-7.50 [facility] Comment on above: Order Comment: Speci men Type: BLOOD SPECIMENOrdering Facility: [facility] Address: [address] [place] [address] Performed By: #### 5 7021-8 ####[facility] LABCLIA [id number] [place] [address] [place] Neutrophils/100 WBC (Bld) 79.3 % Normal [facility] Comment on above: Order Comment: Speci men Type: BLOOD SPECIMENOrdering Facility: [facility] Address: [address] [place] [address] Performed By: #### 5 7021-8 ####[facility] LABCLIA [id number] [place] [address] [place] Nucleated RBC (Bld) [#/Vol] 10*3/uL Normal <0.01 [facility] Comment on above: Order Comment: Speci men Type: BLOOD SPECIMENOrdering Facility: [facility] Address: [address] [place] [address] Performed By: #### 5 7021-8 ####[facility] LABIA [id number] [place] [address] [place] Nucleated RBC/100 WBC (Bld) [Ratio] 0.0 /100 WBC Normal [facility] Comment on above: Order Comment: Speci men Type: BLOOD SPECIMENOrdering Facility: [facility] Address: [address] [place] [address] Performed By: #### 5 7021-8 ####[facility] LABIA [id number] [place] [address] [place] Platelet mean volume (Bld) [Entitic vol] 11.5 fL Normal 9.0-12.7 [facility] Comment on above: Order Comment: Speci men Type: BLOOD SPECIMENOrdering Facility: [facility] Address: [address] [place] [address] Performed By: #### 5 7021-8 ####[facility] LABIA [id number] [place] [address] [place] Platelets (Bld) [#/Vol] 108 10*3/uL Low 150-400 [facility] Comment on above: Order Comment: Speci men Type: BLOOD SPECIMENOrdering Facility: [facility] Address: [address] [place] [address] Performed By: #### 5 7021-8 ####[facility] LABCLIA [id number] [place] [address] [place] RBC (Bld) [#/Vol] 4.54 10*6/uL Normal 4.20-6.00 [facility] Comment on above: Order Comment: Speci men Type: BLOOD SPECIMENOrdering Facility: [facility] Address: [address] [place] [address] Performed By: #### 5 7021-8 ####[facility] LABCLIA [id number] [place] [address] [place] WBC (Bld) [#/Vol] 9.30 10*3/uL Normal 3.70-11.00 [facility] Comment on above: Order Comment: Speci men Type: BLOOD SPECIMENOrdering Facility: [facility] Address: [address] [place] [address] Performed By: #### 5 7021-8 ####[facility] LABIA [id number] [place] [address] [place] CBC panel Auto (Bld)on 07-01 Erythrocyte distribution width (RBC) [Ratio] 15.3 % High 11.5-15.0 [facility] Comment on above: Order Comment: Speci men Type: BLOOD SPECIMENOrdering Facility: [facility] Address: [address] [place] [address] Performed By: #### 5 8410-2 ####[facility] LABCLIA [id number] [place] [address] [place] Hematocrit (Bld) [Volume fraction] 45.7 % Normal 39.0-51.0 [facility] Comment on above: Order Comment: Speci men Type: BLOOD SPECIMENOrdering Facility: [facility] Address: [address] [place] [address] Performed By: #### 5 8410-2 ####[facility] LABIA [id number] [place] [address] [place] Hemoglobin (Bld) [Mass/Vol] 14.9 g/dL Normal 13.0-17.0 [facility] Comment on above: Order Comment: Speci men Type: BLOOD SPECIMENOrdering Facility: [facility] Address: [address] [place] [address] Performed By: #### 5 8410-2 ####[facility] [id number] [place] [address] [place] MCH (RBC) [Entitic mass] 27.7 pg Normal 26.0-34.0 [facility] Comment on above: Order Comment: Speci men Type: BLOOD SPECIMENOrdering Facility: [facility] Address: [address] [place] [address] Performed By: #### 5 8410-2 ####[facility] [id number] [place] [address] [place] MCHC (RBC) [Mass/Vol] 32.6 g/dL Normal 30.5-36.0 [facility] Comment on above: Order Comment: Speci men Type: BLOOD SPECIMENOrdering Facility: [facility] Address: [address] [place] [address] Performed By: #### 5 8410-2 ####[facility] LABIA [id number] [place] [address] [place] MCV (RBC) [Entitic vol] 85.1 fL Normal 80.0-100.0 [facility] Comment on above: Order Comment: Speci men Type: BLOOD SPECIMENOrdering Facility: [facility] Address: [address] [place] [address] Performed By: #### 5 8410-2 ####[facility] LABCLIA [id number] [place] [address] [place] Nucleated RBC (Bld) [#/Vol] 10*3/uL Normal <0.01 [facility] Comment on above: Order Comment: Speci men Type: BLOOD SPECIMENOrdering Facility: [facility] Address: [address] [place] [address] Performed By: #### 5 8410-2 ####[facility] LABIA [id number] [place] [address] [place] Platelet mean volume (Bld) [Entitic vol] 12.3 fL Normal 9.0-12.7 [facility] Comment on above: Order Comment: Speci men Type: BLOOD SPECIMENOrdering Facility: [facility] Address: [address] [place] [address] Performed By: #### 5 8410-2 ####[facility] LABIA [id number] [place] [address] [place] Platelets (Bld) [#/Vol] 133 10*3/uL Low 150-400 [facility] Comment on above: Order Comment: Speci men Type: BLOOD SPECIMENOrdering Facility: [facility] Address: [address] [place] [address] Performed By: #### 5 8410-2 ####[facility] LABIA [id number] [place] [address] [place] RBC (Bld) [#/Vol] 5.37 10*6/uL Normal 4.20-6.00 [facility] Comment on above: Order Comment: Speci men Type: BLOOD SPECIMENOrdering Facility: [facility] Address: [address] [place] [address] Performed By: #### 5 8410-2 ####[facility] LABIA [id number] [place] [address] [place] WBC (Bld) [#/Vol] 7.99 10*3/uL Normal 3.70-11.00 [facility] Comment on above: Order Comment: Speci men Type: BLOOD SPECIMENOrdering Facility: [facility] Address: [address] [place] [address] Performed By: #### 5 8410-2 ####[facility] LABCLIA [id number] [place] [address] [place] CONSULT PROGon 07-01-2024 CONSULT PROG Normal [facility] Comprehensive metabolic 2000 panelon 07-01-2024 Albumin [Mass/Vol] 4.0 g/dL Normal 3.9-4.9 [facility] Comment on above: Order Comment: Speci men Type: BLOOD SPECIMENOrdering Facility: [facility] Address: [address] [place] [address] Result Comment: Resu lt rechecked. Performed By: #### 2 324-2, 44169-5 ####[facility] LABCLIA [id number] [place] [address] [place] ALP [Catalytic activity/Vol] 90 U/L Normal 38-113 [facility] Comment on above: Order Comment: Speci men Type: BLOOD SPECIMENOrdering Facility: [facility] Address: [address] [place] [address] Performed By: #### 2 324-2, 93596-0 ####[facility] LABCLIA [id number] [place] [id number] [place] ALT [Catalytic activity/Vol] 214 U/L High 10-54 [facility] Comment on above: Order Comment: Speci men Type: BLOOD SPECIMENOrdering Facility: [facility] Address: [address] [place] [address] Performed By: #### 2 324-2, 07814-2 ####[facility] LABCLIA [id number] [place] [id number] [place] Anion gap [Moles/Vol] 11 mmol/L Normal 8-15 [facility] Comment on above: Order Comment: Speci men Type: BLOOD SPECIMENOrdering Facility: [facility] Address: [address] [place] [address] Performed By: #### 2 324-2, 80564-6 ####[facility] LABCLIA [id number] [place] [address] [place] AST [Catalytic activity/Vol] 176 U/L High 14-40 [facility] Comment on above: Order Comment: Speci men Type: BLOOD SPECIMENOrdering Facility: [facility] Address: [address] [place] [address] Result Comment: Resu lts may be falsely increased due to interference from hemolysis. Suggest reorder as clinically indicated. Performed By: #### 2 324-2, 90299-3 ####[facility] LABCLIA [id number] [place] [address] [place] Bilirubin [Mass/Vol] 1.5 mg/dL High 0.2-1.3 [facility] Comment on above: Order Comment: Speci men Type: BLOOD SPECIMENOrdering Facility: [facility] Address: [address] [place] [address] Performed By: #### 2 324-2, 55087-6 ####[facility] LABCLIA [id number] [place] [address] [place] Calcium [Mass/Vol] 8.4 mg/dL Low 8.5-10.2 [facility] Comment on above: Order Comment: Speci men Type: BLOOD SPECIMENOrdering Facility: [facility] Address: [address] [place] [address] Performed By: #### 2 324-2, 26954-8 ####[facility] LABCLIA [id number] [place] [address] [place] Chloride [Moles/Vol] 101 mmol/L Normal 98-107 [facility] Comment on above: Order Comment: Speci men Type: BLOOD SPECIMENOrdering Facility: [facility] Address: [address] [place] [address] Performed By: #### 2 324-2, 34012-6 ####[facility] LABCLIA [id number] [place] [id number] [place] CO2 [Moles/Vol] 25 mmol/L Normal 22-30 [facility] Comment on above: Order Comment: Speci men Type: BLOOD SPECIMENOrdering Facility: [facility] Address: [address] [place] [address] Performed By: #### 2 324-2, 20657-3 ####[facility] LABCLIA [id number] [place] [address] [place] Creatinine [Mass/Vol] 1.02 mg/dL Normal 0.73-1.22 [facility] Comment on above: Order Comment: Speci men Type: BLOOD SPECIMENOrdering Facility: [facility] Address: [address] [place] [address] Performed By: #### 2 324-, 39064-3 ####[facility] LABIA [id number] [place] [address] [place] Creatinine and Glomerular filtration rate.predicted panel (S/P/Bld) 100 mL/min/1.73m??? Normal >=60 [facility] Comment on above: Order Comment: Speci men Type: BLOOD SPECIMENOrdering Facility: [facility] Address: [address] [place] [address] Result Comment: Faye mated Glomerular Filtration Rate [...] reflect actual GFR. Performed By: #### 2 324-2, 40894-1 ####[facility] LABCLIA [id number] [place] [address] [place] Glucose [Mass/Vol] 102 mg/dL High 74-99 [facility] Comment on above: Order Comment: Speci men Type: BLOOD SPECIMENOrdering Facility: [facility] Address: [address] [place] [address] Result Comment: The [place] [employer] (ADA) [...] Care. 2016.39(Suppl 1). Performed By: #### 2 324-2, 65717-3 ####[facility] LABIA [id number] [place] [address] [place] Potassium [Moles/Vol] 4.1 mmol/L Normal 3.7-5.1 [facility] Comment on above: Order Comment: Speci men Type: BLOOD SPECIMENOrdering Facility: [facility] Address: [address] [place] [address] Performed By: #### 2 324-2, 96111-3 ####[facility] LABIA [id number] [place] [address] [place] Protein [Mass/Vol] 6.4 g/dL Normal 6.3-8.0 [facility] Comment on above: Order Comment: Speci men Type: BLOOD SPECIMENOrdering Facility: [facility] Address: [address] [place] [address] Result Comment: Resu lt rechecked. Performed By: #### 2 , ####[facility] LABCLIA [id number] [place] [id number] [place] Sodium [Moles/Vol] 137 mmol/L Normal 136-144 [facility] Comment on above: Order Comment: Speci men Type: BLOOD SPECIMENOrdering Facility: [facility] Address: [address] [place] [address] Performed By: #### 2 -, ####[facility] LABCLIA [id number] [place] [address] [place] Urea nitrogen [Mass/Vol] 10 mg/dL Normal 9-24 [facility] Comment on above: Order Comment: Speci men Type: BLOOD SPECIMENOrdering Facility: [facility] Address: [address] [place] [address] Performed By: #### 2 , ####[facility] LABIA [id number] [place] [address] [place] Ethanol Gas chromatography [ Mass/Vol]on 07-01-2024 Ethanol [Mass/Vol] mg/dL Normal <5 [facility] Comment on above: Order Comment: Speci men Type: BLOOD SPECIMENOrdering Facility: [facility] Address: [address] [place] [address] Result Comment: Ther apeutic range for methanol toxicity 100 - 150 mg/dL.Source: [employer] Practice Guidelines on the Treatment of Methanol Poisoning.For medical purposes only. Not valid for forensic use.This test was developed and its performance characteristics determined by [facility]'s Iraj Huston [facility] [place] ([facility]). It has not been cleared or approved by the FDA. -[facility] is regulated under CLIA as qualified to perform high-complexity testing. This test is used for clinical purposes. It should not be regarded as investigational or for research. Performed By: #### 1 4336-2 ####[facility] LABCLIA [id number] [place] [id number] [place] Ethanol SerPl-mCncon 024 Ethanol [Mass/Vol] mg/dL Normal <11 [facility] Comment on above: Order Comment: Speci men Type: BLOOD SPECIMENOrdering Facility: [facility] Address: [address] [place] [address] Performed By: #### 5 643-2 ####[facility] LABCLIA [id number] [place] [address] [place] GGT SerPl-cCncon 07-01-2024 Gamma glutamyl transferase [Catalytic activity/Vol] 199 U/L High 10-70 [facility] Comment on above: Order Comment: Speci men Type: BLOOD SPECIMENOrdering Facility: [facility] Address: [address] [place] [address] Performed By: #### 2 324-2, 57375-2 ####[facility] LABCLIA [id number] [place] [address] [place] Hepatic function 2000 panelo n 07-01-2024 Albumin [Mass/Vol] 2.6 g/dL Low 3.9-4.9 [facility] Comment on above: Order Comment: Speci men Type: BLOOD SPECIMENOrdering Facility: [facility] Address: [address] [place] [address] Result Comment: Resu lt rechecked. Performed By: #### 1 9123-9, 2777-1, 02535-1, 49701-9 ####[facility] LABCLIA [id number] [place] [address] [place] ALP [Catalytic activity/Vol] 54 U/L Normal 38-113 [facility] Comment on above: Order Comment: Speci men Type: BLOOD SPECIMENOrdering Facility: [facility] Address: [address] [place] [address] Performed By: #### 1 9123-9, 2777-1, 83895-7, 19354-9 ####[facility] LABCLIA [id number] [place] [id number] [place] ALT [Catalytic activity/Vol] 113 U/L High 10-54 [facility] Comment on above: Order Comment: Speci men Type: BLOOD SPECIMENOrdering Facility: [facility] Address: [address] [place] [address] Performed By: #### 1 9123-9, 2777-1, 62216-8, 58489-7 ####[facility] LABCLIA [id number] [place] [address] [place] AST [Catalytic activity/Vol] 100 U/L High 14-40 [facility] Comment on above: Order Comment: Speci men Type: BLOOD SPECIMENOrdering Facility: [facility] Address: [address] [place] [address] Performed By: #### 1 9123-9, 2777-1, 12728-2, 53132-9 ####[facility] LABCLIA [id number] [place] [address] [place] Bilirubin [Mass/Vol] 0.8 mg/dL Normal 0.2-1.3 [facility] Comment on above: Order Comment: Speci men Type: BLOOD SPECIMENOrdering Facility: [facility] Address: [address] [place] [address] Performed By: #### 1 9123-9, 2777-1, 92018-0, 05317-2 ####[facility] LABCLIA [id number] [place] [address] [place] Bilirubin.conjugate d [Mass/Vol] mg/dL Normal <0.2 [facility] Comment on above: Order Comment: Speci men Type: BLOOD SPECIMENOrdering Facility: [facility] Address: [address] [place] [address] Performed By: #### 1 9123-9, 2777-1, 46951-7, 27977-4 ####[facility] LABCLIA [id number] [place] [address] [place] Protein [Mass/Vol] 4.2 g/dL Low 6.3-8.0 [facility] Comment on above: Order Comment: Khushbu grajeda Type: BLOOD SPECIMENOrdering Facility: [facility] Address: [address] [place] [address] Result Comment: Resu lt rechecked. Performed By: #### 1 9123-9, 2777-1, 72398-4, 99263-8 ####[facility] LABCLIA [id number] [place] [address] [place] Magnesium SerPl-mCncon 07-01 Magnesium [Mass/Vol] 1.2 mg/dL Low 1.7-2.3 [facility] Comment on above: Order Comment: Khushbu grajeda Type: BLOOD SPECIMENOrdering Facility: [facility] Address: [address] [place] [address] Performed By: #### 1 9123-9, 2777-1, 05111-8, 76149-6 ####[facility] LABCLIA [id number] [place] [address] [place] PT panel Coag (PPP)on 2023 INR Coag (PPP) [Relative time] 1.0 {INR} Normal 0.9-1.3 [facility] Comment on above: Order Comment: Khushbu grajeda Type: BLOOD SPECIMENOrdering Facility: [facility] Address: [address] [place] [address] Result Comment: Salma min K Antagonist (VKA) [...] al. Chest 2012, 141:7S-47SAdriana RA, et al. [facility] 2017, 70: 252-289 Performed By: #### 3 4528-0 ####[facility] [id number] [place] [address] [place] PT Coag (PPP) [Time] 11.1 s Normal 9.7-13.0 [facility] Comment on above: Order Comment: Speci men Type: BLOOD SPECIMENOrdering Facility: [facility] Address: [address] [place] [address] Performed By: #### 3 4528-0 ####[facility] [id number] [place] [address] [place] Phosphate SerPl-mCncon 07-01 Phosphate [Mass/Vol] 2.4 mg/dL Low 2.7-4.8 [facility] Comment on above: Order Comment: Speci men Type: BLOOD SPECIMENOrdering Facility: [facility] Address: [address] [place] [address] Performed By: #### 1 9123-9, 2777-1, 72336-9, 82872-2 ####[facility] [id number] [place] [address] [place] ANES POSTPROC EVALon 024 ANES POSTPROC EVAL Normal [facility] BRIEF OP NOTon 06-30-2024 BRIEF OP NOT Normal [facility] CONSULTon 06-30-2024 CONSULT Normal [facility] NURSING PROGon 06-30-2024 NURSING PROG Normal [facility] OPERATIVE NOon 06-30-2024 OPERATIVE NO Normal [facility] ANES PRE-OPon 06-29-2024 ANES PRE-OP Normal [facility] CBC W Auto Differential pane l (Bld)on 06-29-2024 Basophils (Bld) [#/Vol] 0.09 10*3/uL Normal <0.11 [facility] Comment on above: Order Comment: Speci men Type: BLOOD SPECIMENOrdering Facility: [facility] Address: [address] [place] [address] Performed By: #### 5 7021-8 ####[facility] LABCLIA [id number] [place] [address] [place] Basophils/100 WBC (Bld) 1.5 % Normal [facility] Comment on above: Order Comment: Speci men Type: BLOOD SPECIMENOrdering Facility: [facility] Address: [address] [place] [address] Performed By: #### 5 7021-8 ####[facility] LABCLIA [id number] [place] [address] [place] Differential cell count method Nom (Bld) Auto Normal [facility] Comment on above: Order Comment: Speci men Type: BLOOD SPECIMENOrdering Facility: [facility] Address: [address] [place] [address] Performed By: #### 5 7021-8 ####[facility] LABCLIA [id number] [place] [address] [place] Eosinophils (Bld) [#/Vol] 0.21 10*3/uL Normal <0.46 [facility] Comment on above: Order Comment: Speci men Type: BLOOD SPECIMENOrdering Facility: [facility] Address: [address] [place] [address] Performed By: #### 5 7021-8 ####[facility] LABCLIA [id number] [place] [address] [place] Eosinophils/100 WBC (Bld) 3.4 % Normal [facility] Comment on above: Order Comment: Speci men Type: BLOOD SPECIMENOrdering Facility: [facility] Address: [address] [place] [address] Performed By: #### 5 7021-8 ####[facility] LABIA [id number] [place] [address] [place] Erythrocyte distribution width (RBC) [Ratio] 14.6 % Normal 11.5-15.0 [facility] Comment on above: Order Comment: Speci men Type: BLOOD SPECIMENOrdering Facility: [facility] Address: [address] [place] [address] Performed By: #### 5 7021-8 ####[facility] LABIA [id number] [place] [address] [place] Hematocrit (Bld) [Volume fraction] 49.7 % Normal 39.0-51.0 [facility] Comment on above: Order Comment: Speci men Type: BLOOD SPECIMENOrdering Facility: [facility] Address: [address] [place] [address] Performed By: #### 5 7021-8 ####[facility] LABIA [id number] [place] [address] [place] Hemoglobin (Bld) [Mass/Vol] 15.9 g/dL Normal 13.0-17.0 [facility] Comment on above: Order Comment: Speci men Type: BLOOD SPECIMENOrdering Facility: [facility] Address: [address] [place] [address] Performed By: #### 5 7021-8 ####[facility] LABCLIA [id number] [place] [address] [place] Immature granulocytes (Bld) [#/Vol] 0.04 10*3/uL Normal <0.10 [facility] Comment on above: Order Comment: Speci men Type: BLOOD SPECIMENOrdering Facility: [facility] Address: [address] [place] [address] Performed By: #### 5 7021-8 ####[facility] LABCLIA [id number] [place] [address] [place] Immature granulocytes/100 WBC (Bld) 0.6 % Normal [facility] Comment on above: Order Comment: Speci men Type: BLOOD SPECIMENOrdering Facility: [facility] Address: [address] [place] [address] Performed By: #### 5 7021-8 ####[facility] LABIA [id number] [place] [address] [place] Lymphocytes (Bld) [#/Vol] 1.10 10*3/uL Normal 1.00-4.00 [facility] Comment on above: Order Comment: Speci men Type: BLOOD SPECIMENOrdering Facility: [facility] Address: [address] [place] [address] Performed By: #### 5 7021-8 ####[facility] LABIA [id number] [place] [address] [place] Lymphocytes/100 WBC (Bld) 17.9 % Normal [facility] Comment on above: Order Comment: Speci men Type: BLOOD SPECIMENOrdering Facility: [facility] Address: [address] [place] [address] Performed By: #### 5 7021-8 ####[facility] [id number] [place] [address] [place] MCH (RBC) [Entitic mass] 26.8 pg Normal 26.0-34.0 [facility] Comment on above: Order Comment: Speci men Type: BLOOD SPECIMENOrdering Facility: [facility] Address: [address] [place] [address] Performed By: #### 5 7021-8 ####[facility] LABIA [id number] [place] [address] [place] MCHC (RBC) [Mass/Vol] 32.0 g/dL Normal 30.5-36.0 [facility] Comment on above: Order Comment: Speci men Type: BLOOD SPECIMENOrdering Facility: [facility] Address: [address] [place] [address] Performed By: #### 5 7021-8 ####[facility] LABCLIA [id number] [place] [address] [place] MCV (RBC) [Entitic vol] 83.8 fL Normal 80.0-100.0 [facility] Comment on above: Order Comment: Speci men Type: BLOOD SPECIMENOrdering Facility: [facility] Address: [address] [place] [address] Performed By: #### 5 7021-8 ####[facility] LABCLIA [id number] [place] [address] [place] Monocytes (Bld) [#/Vol] 0.50 10*3/uL Normal <0.87 [facility] Comment on above: Order Comment: Speci men Type: BLOOD SPECIMENOrdering Facility: [facility] Address: [address] [place] [address] Performed By: #### 5 7021-8 ####[facility] LABIA [id number] [place] [address] [place] Monocytes/100 WBC (Bld) 8.1 % Normal [facility] Comment on above: Order Comment: Speci men Type: BLOOD SPECIMENOrdering Facility: [facility] Address: [address] [place] [address] Performed By: #### 5 7021-8 ####[facility] LABCLIA [id number] [place] [address] [place] Neutrophils (Bld) [#/Vol] 4.22 10*3/uL Normal 1.45-7.50 [facility] Comment on above: Order Comment: Speci men Type: BLOOD SPECIMENOrdering Facility: [facility] Address: [address] [place] [address] Performed By: #### 5 7021-8 ####[facility] LABCLIA [id number] [place] [address] [place] Neutrophils/100 WBC (Bld) 68.5 % Normal [facility] Comment on above: Order Comment: Speci men Type: BLOOD SPECIMENOrdering Facility: [facility] Address: [address] [place] [address] Performed By: #### 5 7021-8 ####[facility] LABCLIA [id number] [place] [address] [place] Nucleated RBC (Bld) [#/Vol] 10*3/uL Normal <0.01 [facility] Comment on above: Order Comment: Speci men Type: BLOOD SPECIMENOrdering Facility: [facility] Address: [address] [place] [address] Performed By: #### 5 7021-8 ####[facility] LABCLIA [id number] [place] [address] [place] Nucleated RBC/100 WBC (Bld) [Ratio] 0.0 /100 WBC Normal [facility] Comment on above: Order Comment: Speci men Type: BLOOD SPECIMENOrdering Facility: [facility] Address: [address] [place] [address] Performed By: #### 5 7021-8 ####[facility] LABCLIA [id number] [place] [address] [place] Platelet mean volume (Bld) [Entitic vol] 12.3 fL Normal 9.0-12.7 [facility] Comment on above: Order Comment: Speci men Type: BLOOD SPECIMENOrdering Facility: [facility] Address: [address] [place] [address] Performed By: #### 5 7021-8 ####[facility] LABCLIA [id number] [place] [address] [place] Platelets (Bld) [#/Vol] 165 10*3/uL Normal 150-400 [facility] Comment on above: Order Comment: Speci men Type: BLOOD SPECIMENOrdering Facility: [facility] Address: [address] [place] [address] Performed By: #### 5 7021-8 ####[facility] LABCLIA [id number] [place] [address] [place] RBC (Bld) [#/Vol] 5.93 10*6/uL Normal 4.20-6.00 [facility] [facility] Comment on above: Order Comment: Speci men Type: BLOOD SPECIMENOrdering Facility: [facility] Address: [address] [place] [address] Performed By: #### 5 7021-8 ####[facility] LABCLIA [id number] [place] [address] [place] WBC (Bld) [#/Vol] 6.16 10*3/uL Normal 3.70-11.00 [facility] Comment on above: Order Comment: Speci men Type: BLOOD SPECIMENOrdering Facility: [facility] Address: [address] [place] [address] Performed By: #### 5 7021-8 ####[facility] LABIA [id number] [place] [address] [place] Comprehensive metabolic 2000 panelon 06-29-2024 Albumin [Mass/Vol] 4.9 g/dL Normal 3.9-4.9 [facility] Comment on above: Order Comment: Speci men Type: BLOOD SPECIMENOrdering Facility: [facility] Address: [address] [place] [address] Performed By: #### 2 4323-8 ####[facility] LABIA [id number] [place] [address] [place] ALP [Catalytic activity/Vol] 107 U/L Normal 38-113 [facility] Comment on above: Order Comment: Speci men Type: BLOOD SPECIMENOrdering Facility: [facility] Address: [address] [id number] Performed By: #### 2 4323-8 ####[facility] LABCLIA [id number] [place] [address] [place] ALT [Catalytic activity/Vol] 198 U/L High 10-54 [facility] Comment on above: Order Comment: Speci men Type: BLOOD SPECIMENOrdering Facility: [facility] Address: [address] [place] [address] Performed By: #### 2 4323-8 ####[facility] LABCLIA [id number] [place] [address] [place] Anion gap [Moles/Vol] 14 mmol/L Normal 8-15 [facility] Comment on above: Order Comment: Speci men Type: BLOOD SPECIMENOrdering Facility: [facility] Address: [address] [place] [address] Performed By: #### 2 4323-8 ####[facility] LABCLIA [id number] [place] [address] [place] AST [Catalytic activity/Vol] 164 U/L High 14-40 [facility] Comment on above: Order Comment: Speci men Type: BLOOD SPECIMENOrdering Facility: [facility] Address: [address] [place] [address] Performed By: #### 2 4323-8 ####[facility] LABCLIA [id number] [place] [address] [place] Bilirubin [Mass/Vol] 0.8 mg/dL Normal 0.2-1.3 [facility] Comment on above: Order Comment: Speci men Type: BLOOD SPECIMENOrdering Facility: [facility] Address: [address] [id number] Performed By: #### 2 4323-8 ####[facility] LABCLIA [id number] [place] [address] [place] Calcium [Mass/Vol] 10.2 mg/dL Normal 8.5-10.2 [facility] Comment on above: Order Comment: Speci men Type: BLOOD SPECIMENOrdering Facility: [facility] Address: [address] [place] [address] Performed By: #### 2 4323-8 ####[facility] LABCLIA [id number] [place] [address] [place] Chloride [Moles/Vol] 100 mmol/L Normal 98-107 [facility] Comment on above: Order Comment: Speci men Type: BLOOD SPECIMENOrdering Facility: [facility] Address: [address] [place] [address] Performed By: #### 2 4323-8 ####[facility] LABCLIA [id number] [place] [address] [place] CO2 [Moles/Vol] 22 mmol/L Normal 22-30 [facility] Comment on above: Order Comment: Speci men Type: BLOOD SPECIMENOrdering Facility: [facility] Address: [address] [place] [address] Performed By: #### 2 4323-8 ####[facility] LABCLIA [id number] [place] [address] [place] Creatinine [Mass/Vol] 0.95 mg/dL Normal 0.73-1.22 [facility] Comment on above: Order Comment: Speci men Type: BLOOD SPECIMENOrdering Facility: [facility] Address: [address] [place] [address] Performed By: #### 2 4323-8 ####[facility] LABCLIA [id number] [place] [address] [place] Creatinine and Glomerular filtration rate.predicted panel (S/P/Bld) 108 mL/min/1.73m??? Normal >=60 [facility] Comment on above: Order Comment: Speci men Type: BLOOD SPECIMENOrdering Facility: [facility] Address: [address] [place] [address] Result Comment: Faye mated Glomerular Filtration Rate [...] #### 2 4323-8 ####[facility] LABCLIA [id number] [place] [address] [place] Glucose [Mass/Vol] 106 mg/dL High 74-99 [facility] Comment on above: Order Comment: Specmonty men Type: BLOOD SPECIMENOrdering Facility: [facility] Address: [address] [place] [address] Result Comment: The [place] [employer] (ADA) [...] #### 2 4323-8 ####[facility] LABCLIA [id number] [place] [address] [place] Potassium [Moles/Vol] 4.5 mmol/L Normal 3.7-5.1 [facility] Comment on above: Order Comment: Khushbu grajeda Type: BLOOD SPECIMENOrdering Facility: [facility] Address: [address] [place] [address] Performed By: #### 2 4323-8 ####[facility] LABCLIA [id number] [place] [address] [place] Protein [Mass/Vol] 7.8 g/dL Normal 6.3-8.0 [facility] Comment on above: Order Comment: Speci men Type: BLOOD SPECIMENOrdering Facility: [facility] Address: [address] [place] [address] Performed By: #### 2 4323-8 ####[facility] LABCLIA [id number] [place] [address] [place] Sodium [Moles/Vol] 136 mmol/L Normal 136-144 [facility] Comment on above: Order Comment: Speci men Type: BLOOD SPECIMENOrdering Facility: [facility] Address: [address] [place] [address] Performed By: #### 2 4323-8 ####[facility] LABCLIA [id number] [place] [address] [place] Urea nitrogen [Mass/Vol] 10 mg/dL Normal 9-24 [facility] Comment on above: Order Comment: Speci men Type: BLOOD SPECIMENOrdering Facility: [facility] Address: [address] [place] [address] Performed By: #### 2 4323-8 ####[facility] LABCLIA [id number] [place] [address] [place] LCC05up 06-29-2024 ECG01 Normal [facility] HISTORY PHYSICALon HISTORY PHYSICAL Normal [facility] PT panel Coag (PPP)on 2023 INR Coag (PPP) [Relative time] 1.1 {INR} Normal 0.9-1.3 [facility] Comment on above: Order Comment: Speci men Type: BLOOD SPECIMENOrdering Facility: [facility] Address: [address] [place] [address] Result Comment: Salma min K Antagonist (VKA) [...] al. Chest 2012, 141:7S-47SNishimura RA, et al. [facility] 2017, 70: 252-289 Performed By: #### 1 4979-9, 21798-3 ####[facility] LABCLIA [id number] [place] [address] [place] PT Coag (PPP) [Time] 11.2 s Normal 9.7-13.0 [facility] Comment on above: Order Comment: Speci men Type: BLOOD SPECIMENOrdering Facility: [facility] Address: [address] [place] [address] Performed By: #### 1 4979-9, 90231-2 ####[facility] LABCLIA [id number] [place] [id number] [place] TYPE AND SCREEN,30 DAYon ABO A Normal [facility] Comment on above: Order Comment: Speci men Type: BLOOD SPECIMENOrdering Facility: [facility] Address: [address] [place] [address] Performed By: #### T SCR30 ####[facility] BLOOD BANKCLIA [id number] [place] [address] [place] HISTORICAL AB SCR STATUS Negative Normal [facility] Comment on above: Order Comment: Speci men Type: BLOOD SPECIMENOrdering Facility: [facility] Address: [address], [place] [address] Performed By: #### T SCR30 ####[facility] BLOOD BANKCLIA [id number] [place] [address] [place] Rh Nom (Bld) Positive Normal [facility] Comment on above: Order Comment: Speci men Type: BLOOD SPECIMENOrdering Facility: [facility] Address: [address] [place] [address] Performed By: #### T SCR30 ####[facility] BLOOD BANKCLIA [id number] [place] [address] [place] aPTT PPPon 06-29-2024 aPTT Coag (PPP) [Time] 27.7 s Normal 23.0-32.4 [facility] Comment on above: Order Comment: Speci men Type: BLOOD SPECIMENOrdering Facility: [facility] Address: [address] [place] [address] Result Comment: Froz en Plasma Aliquot Performed By: #### 1 4979-9, 91786-5 ####[facility] LABCLIA [id number] [place] [address] [place] HISTORY PHYSICALon HISTORY PHYSICAL Normal [facility] CNOVon 05-28-2024 CNOV Office Visit (JULIANO) ANGELITA MOMIN ([id number]) 1990 M Date Time Provider Department 05/28/24 10:15 AM [...] a Temperature: No Drains: No patient declined recreational specialist Sera Cummings MA May 28, 2024 10:03 AM Adolfo Ballard MD 06/02/2024 9:39 AM Signed Consultation requested by Dr. Jayleen Becker for an opinion regarding hernia. My final recommendations will be communicated back to the requesting physician by way of shared medical record or letter via US mail [facility] - HISTORY [...] transfusion Pneumonia 03/21/2010 SBO (small bowel obstruction) ([facility]) 11/06/2015 - CT : bowl obstruction with transition point at the [facility] -NPO -IVF -pain control -Phenergen for n/v [...] Performed by FRANCO GARCIA at [facility] PAST SURGICAL HISTORY OF 03/2008 2 lung [...] 09/17/2023) naloxone (more content not included)... Normal [facility] CNOV Normal [facility] A1AT SerPl-mCncon 05-21-2024 Alpha 1 antitrypsin [Mass/Vol] 131 mg/dL Normal 90-200 [facility] Comment on above: Order Comment: Speci men Type: BLOOD SPECIMENOrdering Facility: [facility] Address: [address] [place] [address] Performed By: #### 1 825-9, 2064-4, 46775-3, 97086-8 ####[facility] LABIA [id number] [place] [address] [place] BLOOD TB SCREEN, [facility] 05-21-2024 M. tuberculosis tuberculin stim IFN-g Ql (Bld) Negative Normal [facility] Comment on above: Order Comment: Speci men Type: BLOOD SPECIMENOrdering Facility: [facility] Address: [address] [place] [address] Performed By: #### I NTPGP ####[facility] LABIA [id number] [place] [address] [place] MITOGEN MINUS NIL >9.98 Normal >=0.50 [facility] Comment on above: Order Comment: Speci men Type: BLOOD SPECIMENOrdering Facility: [facility] Address: [address] [place] [address] Performed By: #### I NTPGP ####[facility] LABCLIA [id number] [place] [address] [place] TB GAMMA INTERPRETATION Normal [facility] Comment on above: Order Comment: Speci men Type: BLOOD SPECIMENOrdering Facility: [facility] Address: [address] [place] [address] Performed By: #### I NTPGP ####[facility] LABCLIA [id number] [place] [address] [place] TB NIL 0.02 IU/mL Normal <=8.00 [facility] Comment on above: Order Comment: Speci men Type: BLOOD SPECIMENOrdering Facility: [facility] Address: [address] [place] [address] Performed By: #### I NTPGP ####[facility] LABCLIA [id number] [place] [address] [place] TB1 AG MINUS NIL 0.19 IU/mL Normal <0.35 [facility] Comment on above: Order Comment: Speci men Type: BLOOD SPECIMENOrdering Facility: [facility] Address: [address] [place] [address] Performed By: #### I NTPGP ####[facility] LABCLIA [id number] [place] [address] [place] TB2 AG MINUS NIL 0.15 IU/mL Normal <0.35 [facility] Comment on above: Order Comment: Speci men Type: BLOOD SPECIMENOrdering Facility: [facility] Address: [address] [place] [address] Performed By: #### I NTPGP ####[facility] LABCLIA [id number] [place] [address] [place] CBC panel Auto (Bld)on 05-21 Erythrocyte distribution width (RBC) [Ratio] 15.5 % High 11.5-15.0 [facility] Comment on above: Order Comment: Speci men Type: BLOOD SPECIMENOrdering Facility: [facility] Address: [address] [place] [address] Performed By: #### 5 8410-2 ####[facility] LABCLIA [id number] [place] [address] [place] Hematocrit (Bld) [Volume fraction] 49.8 % Normal 39.0-51.0 [facility] Comment on above: Order Comment: Speci men Type: BLOOD SPECIMENOrdering Facility: [facility] Address: [address] [place] [address] Performed By: #### 5 8410-2 ####[facility] LABCLIA [id number] [place] [address] [place] Hemoglobin (Bld) [Mass/Vol] 16.2 g/dL Normal 13.0-17.0 [facility] Comment on above: Order Comment: Speci men Type: BLOOD SPECIMENOrdering Facility: [facility] Address: [address] [place] [address] Performed By: #### 5 8410-2 ####[facility] LABCLIA [id number] [place] [address] [place] MCH (RBC) [Entitic mass] 26.6 pg Normal 26.0-34.0 [facility] Comment on above: Order Comment: Speci men Type: BLOOD SPECIMENOrdering Facility: [facility] Address: [address] [place] [address] Performed By: #### 5 8410-2 ####[facility] LABCLIA [id number] [place] [address] [place] MCHC (RBC) [Mass/Vol] 32.5 g/dL Normal 30.5-36.0 [facility] Comment on above: Order Comment: Speci men Type: BLOOD SPECIMENOrdering Facility: [facility] Address: [address] [place] [address] Performed By: #### 5 8410-2 ####[facility] LABCLIA [id number] [place] [address] [place] MCV (RBC) [Entitic vol] 81.6 fL Normal 80.0-100.0 [facility] Comment on above: Order Comment: Speci men Type: BLOOD SPECIMENOrdering Facility: [facility] Address: [address] [place] [address] Performed By: #### 5 8410-2 ####[facility] LABCLIA [id number] [place] [address] [place] Nucleated RBC (Bld) [#/Vol] 10*3/uL Normal <0.01 [facility] Comment on above: Order Comment: Speci men Type: BLOOD SPECIMENOrdering Facility: [facility] Address: [address] [place] [address] Performed By: #### 5 8410-2 ####[facility] LABIA [id number] [place] [address] [place] Platelet mean volume (Bld) [Entitic vol] 11.7 fL Normal 9.0-12.7 [facility] Comment on above: Order Comment: Speci men Type: BLOOD SPECIMENOrdering Facility: [facility] Address: [address] [place] [address] Performed By: #### 5 8410-2 ####[facility] LABIA [id number] [place] [address] [place] Platelets (Bld) [#/Vol] 156 10*3/uL Normal 150-400 [facility] Comment on above: Order Comment: Speci men Type: BLOOD SPECIMENOrdering Facility: [facility] Address: [address] [place] [address] Performed By: #### 5 8410-2 ####[facility] LABIA [id number] [place] [address] [place] RBC (Bld) [#/Vol] 6.10 10*6/uL High 4.20-6.00 [facility] Comment on above: Order Comment: Speci men Type: BLOOD SPECIMENOrdering Facility: [facility] Address: [address] [place] [address] Performed By: #### 5 8410-2 ####[facility] LABIA [id number] [place] [address] [place] WBC (Bld) [#/Vol] 7.19 10*3/uL Normal 3.70-11.00 [facility] Comment on above: Order Comment: Speci men Type: BLOOD SPECIMENOrdering Facility: [facility] Address: [address] [place] [address] Performed By: #### 5 8410-2 ####[facility] LABCLIA [id number] [place] [address] [place] CRP SerPl-mCncon 05-21-2024 CRP [Mass/Vol] 1.3 mg/dL High <0.9 [facility] Comment on above: Order Comment: Speci men Type: BLOOD SPECIMENOrdering Facility: [facility] Address: [address] [place] [address] Performed By: #### 1 988-5, HSTNT ####[facility] LABCLIA [id number] [place] [address] [place] CT ENTEROGRAPHY W IVCONon CT ENTEROGRAPHY W IVCON Normal [facility] CT Small bowel W contrast PO and W contrast Shadi 05-21-2024 IMPRESSION: Persistent but improved mild changes of active inflammatory small bowel Crohn's disease with luminal narrowing involving the neoterminal ileum. Scattered fluid-filled upstream small bowel loops, some which are mildly dilated, similar to prior. Penetrating: Absent Hepatic steatosis. Plow And Boring Machine Tender: [facility] Transcribe Date/Time: May 21 2024 3:22P Dictated by : UCHE ACOSTA MD This examination was interpreted and the report reviewed and electronically signed by: UCHE ACOSTA MD on May 21 2024 4:24PM [facility] DIVISION OF RADIOLOGY * * *Final Report* * * DATE OF EXAM: May 21 2024 2:45PM [facility] 0545 - CT ENTEROGRAPHY W IVCON [...] Tissues: No acute findings. Lung Bases: Unremarkable. Wafer Polisher (topogram) images: No additional findings. DIVISION OF RADIOLOGY Provider, [facility] - 05/21/2024 * * *Final Report* * * DATE OF EXAM: May 21 2024 2:45PM [facility] 0545 - CT ENTEROGRAPHY W IVCON [...] Tissues: No acute findings. Lung Bases: Unremarkable. Wafer Polisher (topogram) images: No additional findings. IMPRESSION IMPRESSION: Persistent but improved mild changes of active inflammatory small bowel Crohn's disease with luminal narrowing involving the neoterminal ileum. Scattered fluid-filled upstream small bowel loops, some which are mildly dilated, similar to prior. Penetrating: Absent Hepatic steatosis. Plow And Boring Machine Tender: JUANITA Transcribe Date/Time: May 21 2024 3:22P Dictated by : UCHE ACOSTA MD This examination was interpreted and the report reviewed and electronically signed by: UCHE ACOSTA MD on May 21 2024 4:24PM EST [facility] Radiology Study observation (narrative) [facility] CT Small bowel W contrast PO and W contrast IVOrdered By: [facility] Provider on 05-21-2024 [facility] Ceruloplasmin SerPl-mCncon 0 05-21-2024 Ceruloplasmin [Mass/Vol] 20 mg/dL Normal 15-30 [facility] Comment on above: Order Comment: Speci men Type: BLOOD SPECIMENOrdering Facility: [facility] Address: [address] [place] [address] Performed By: #### 1 825-9, 2064-03, 39068-6, 16620-9 ####[facility] LABIA [id number] [place] [address] [place] [facility] Comprehensive metabolic 2000 panelon 05-21-2024 Albumin [Mass/Vol] 4.9 g/dL Normal 3.9-4.9 [facility] Comment on above: Order Comment: Speci men Type: BLOOD SPECIMENOrdering Facility: [facility] Address: [address] [place] [address] Performed By: #### 1 825-9, 2064-03, 49000-1, 75533-8 ####[facility] LABIA [id number] [place] [address] [place] ALP [Catalytic activity/Vol] 119 U/L High 38-113 [facility] Comment on above: Order Comment: Speci men Type: BLOOD SPECIMENOrdering Facility: [facility] Address: [address] [place] [address] Performed By: #### 1 825-9, 2064-03, 83575-1, 93451-6 ####[facility] LABIA [id number] [place] [id number] [place] ALT [Catalytic activity/Vol] 156 U/L High 10-54 [facility] Comment on above: Order Comment: Speci men Type: BLOOD SPECIMENOrdering Facility: [facility] Address: [address] [place] [address] Performed By: #### 1 825-9, 2064-03, 88742-3, 01097-8 ####[facility] LABCLIA [id number] [place] [id number] [place] Anion gap [Moles/Vol] 14 mmol/L Normal 8-15 [facility] Comment on above: Order Comment: Speci men Type: BLOOD SPECIMENOrdering Facility: [facility] Address: [address] [place] [address] Performed By: #### 1 825-9, 2064-03, 56933-4, 22670-7 ####[facility] LABCLIA [id number] [place] [address] [place] AST [Catalytic activity/Vol] 108 U/L High 14-40 [facility] Comment on above: Order Comment: Speci men Type: BLOOD SPECIMENOrdering Facility: [facility] Address: [address] [place] [address] Performed By: #### 1 825-9, 2064-03, 75607-3, 88374-8 ####[facility] LABCLIA [id number] [place] [id number] [place] Bilirubin [Mass/Vol] 1.3 mg/dL Normal 0.2-1.3 [facility] Comment on above: Order Comment: Speci men Type: BLOOD SPECIMENOrdering Facility: [facility] Address: [address] [place] [address] Performed By: #### 1 825-9, 2064-03, 97538-9, 43375-6 ####[facility] LABCLIA [id number] [place] [id number] [place] Calcium [Mass/Vol] 10.2 mg/dL Normal 8.5-10.2 [facility] Comment on above: Order Comment: Speci men Type: BLOOD SPECIMENOrdering Facility: [facility] Address: [address] [place] [address] Performed By: #### 1 825-9, 2064-03, 10872-0, 51350-5 ####[facility] LABCLIA [id number] [place] [id number] [place] Chloride [Moles/Vol] 99 mmol/L Normal 98-107 [facility] Comment on above: Order Comment: Speci men Type: BLOOD SPECIMENOrdering Facility: [facility] Address: [address] [place] [address] Performed By: #### 1 825-9, 2063-4, 79660-3, 52686-6 ####[facility] LABCLIA [id number] [place] [address] [place] CO2 [Moles/Vol] 20 mmol/L Low 22-30 [facility] Comment on above: Order Comment: Speci men Type: BLOOD SPECIMENOrdering Facility: [facility] Address: [address] [place] [address] Performed By: #### 1 825-9, 2063-4, 75892-6, 89129-9 ####[facility] LABCLIA [id number] [place] [address] [place] Creatinine [Mass/Vol] 1.01 mg/dL Normal 0.73-1.22 [facility] Comment on above: Order Comment: Speci men Type: BLOOD SPECIMENOrdering Facility: [facility] Address: [address] [place] [address] Performed By: #### 1 825-9, 2063-4, 22469-7, 35729-6 ####[facility] LABIA [id number] [place] [address] [place] Creatinine and Glomerular filtration rate.predicted panel (S/P/Bld) 101 mL/min/1.73m??? Normal >=60 [facility] Comment on above: Order Comment: Speci men Type: BLOOD SPECIMENOrdering Facility: [facility] Address: [address] [place] [address] Result Comment: Faye mated Glomerular Filtration Rate [...] reflect actual GFR. Performed By: #### 1 825-9, 2064-03, 25342-0, 70465-9 ####[facility] LABIA [id number] [address] [address] [address] [place] Glucose [Mass/Vol] 92 mg/dL Normal 74-99 [facility] Comment on above: Order Comment: Khushbu grajeda Type: BLOOD SPECIMENOrdering Facility: [facility] Address: [address] [place] [address] Result Comment: The [employer] (ADA) [...] Care. 2016.39(Suppl 1). Performed By: #### 1 825-9, 2064-03, 06853-0, 89931-5 ####[facility] LABIA [id number] [address] [address] [place] Potassium [Moles/Vol] 4.1 mmol/L Normal 3.7-5.1 [facility] Comment on above: Order Comment: Khushbu grajeda Type: BLOOD SPECIMENOrdering Facility: [facility] Address: [address] [place] [address] Performed By: #### 1 825-9, 2064-03, 84127-0, 72129-0 ####[facility] LABCLIA [id number] [address] [address] [place] Protein [Mass/Vol] 7.9 g/dL Normal 6.3-8.0 [facility] Comment on above: Order Comment: Speci men Type: BLOOD SPECIMENOrdering Facility: [facility] Address: [address] [place], [place] [address] Performed By: #### 1 825-9, 2063-4, 50308-4, 93812-1 ####[facility] LABIA [id number] [place] [id number] [place] Sodium [Moles/Vol] 133 mmol/L Low 136-144 [facility] Comment on above: Order Comment: Speci men Type: BLOOD SPECIMENOrdering Facility: [facility] Address: [address] [place], [place] [address] Performed By: #### 1 825-9, 2063-, 86826-8, 85722-9 ####[facility] LABIA [id number] [place] [id number] [place] Urea nitrogen [Mass/Vol] 14 mg/dL Normal 9-24 [facility] Comment on above: Order Comment: Speci men Type: BLOOD SPECIMENOrdering Facility: [facility] Address: [address] [place] [address] Performed By: #### 1 825-9, 2064-03, 88539-5, 68263-5 ####[facility] LABIA [id number] [address] [address] [place] D dimer FEU PPP-mCncon 05-21 Fibrin D-dimer FEU (PPP) [Mass/Vol] 250 ng/mL FEU Normal <500 [facility] Comment on above: Order Comment: Speci men Type: BLOOD SPECIMENOrdering Facility: [facility] Address: [address] [place] [address] Performed By: #### 3 4528-0, 58786-2 ####[facility] [id number] [place] [address] [place] HBV DNA Qn (S)on 05-21-2024 HBV DNA GERMÁN+probe Qn 629 IU/ml Normal [facility] Comment on above: Order Comment: Khushbu grajeda Type: BLOOD SPECIMENOrdering Facility: [facility] Address: [address] [place] [address] Result Comment: HBV DNA Detected by PCR.2.80 Performed By: #### 1 1258-1 ####[facility] [id number] [address] [place] HBV core Ab Ser Qlon 024 HBV core Ab Ql (S) Positive Abnormal Negative [facility] Comment on above: Order Comment: Khushbu [facility] Type: BLOOD SPECIMENOrdering Facility: [facility] Address: [address] [place] [address] Result Comment: The result suggests either current or past infection with Hepatitis B virus. Non-specific reactivity may at times be seen with this test due to some underlying phenomena. Please correlate with HBsAg result and medical history. Performed By: #### 3 1201-7, 61825-9, 5195-3, 77897-0 ####[facility] [id number] [place] [address] [place] HBV surface Ab Ql (S)on 05-02 HBV surface Ab Qn (S) <8.00 Normal [facility] Comment on above: Order Comment: Khushbu grajeda Type: BLOOD SPECIMENOrdering Facility: [facility] Address: [address] [place] [address] Result Comment: <8 m IU/mL: No serological evidence of immunity to Hepatitis B Virus.>/= 8 to <12 mIU/mL: No serological evidence of immunity to Hepatitis B Virus.>/= 12 mIU/mL: Consistent with serological evidence of immunity to Hepatitis B Virus. Performed By: #### 3 1201-7, 17682-3, 5194-3, 29659-1 ####[facility] LABCLIA [id number] [place] [address] [place] HBV surface Ab Ser Qlon 05-02 HBV surface Ab Ql (S) Negative Normal [facility] Comment on above: Order Comment: Speci men Type: BLOOD SPECIMENOrdering Facility: [facility] Address: [address] [place] [address] Result Comment: No s erological evidence of immunity to Hepatitis B Virus. Performed By: #### 3 1201-7, 27731-6, 5194-3, 93636-2 ####[facility] LABCLIA [id number] [place] [address] [place] HBV surface Ag Ser Qlon 05-02 HBV surface Ag Ql (S) Initially Reactive Abnormal Negative [facility] Comment on above: Order Comment: Speci [facility] Type: BLOOD SPECIMENOrdering Facility: [facility] Address: [address] [place] [address] Result Comment: Plea se see HBsAg confirmatory assay result.Confirmatory testing for hepatitis B surface antigen has been ordered and charged. Performed By: #### 3 1201-7, 72753-9, 5194-3, 86996-7 ####[facility] LABCLIA [id number] [address] [facility] HBV surface Ag Ql (S) Positive Abnormal Negative, Test not Indicated [facility] Comment on above: Order Comment: Speci [facility] Type: BLOOD SPECIMENOrdering Facility: [facility] Address: [address] [place] [address] Result Comment: The result is consistent with active Hepatitis B Virus Infection. HBsAg, however, may test positive up to few weeks after administration of Hepatitis B vaccine. Clinical correlation is required. Performed By: #### 3 1201-7, 96499-7, 5194-3, 74337-1 ####[facility] LABCLIA [id number] [place] [address] [place] HCV Ab Ser Qlon 05-21-2024 HCV Ab Ql (S) Positive Abnormal Negative [facility] Comment on above: Order Comment: Speci men Type: BLOOD SPECIMENOrdering Facility: [facility] Address: [address] [place] [address] Performed By: #### 1 6128-1, 97198-4 ####[facility] LABCLIA [id number] [place] [address] [place] HCV RNA SerPl GERMÁN+probe-aCnc on 05-21-2024 HCV RNA GERMÁN+probe Qn Not detected Normal HCV RNA not detected by PCR. [facility] Comment on above: Order Comment: Khushbu grajeda Type: BLOOD SPECIMENOrdering Facility: [facility] Address: [address] [place] [address] Performed By: #### 1 6128-1, 81317-1 ####[facility] LABIA [id number] [place] [address] [place] HEP BE ANTIBODYon 05-21-2024 HBV e Ab IA Ql Negative Normal Negative [facility] Comment on above: Order Comment: Khushbu grajeda Type: BLOOD SPECIMENOrdering Facility: [facility] Address: [address] [place] [address] Result Comment: This test should only be used in patients with a previously known and/or concurrent positive HBsAG result. Along with HBeAG test, Hepatitis B e antibody test is used for monitoring the natural history of Hepatitis B virus infection and prognostication. Clinical correlation is required. Performed By: #### H BEAG, AHBE ####[facility] LABCLIA [id number] [place] [address] [place] HEP BE ANTIGENon 05-21-2024 HBV e Ag IA Ql Positive Abnormal Negative [facility] Comment on above: Order Comment: Luisi men Type: BLOOD SPECIMENOrdering Facility: [facility] Address: [address] [place] [address] Performed By: #### H BEAG, AHBE ####[facility] LABCLIA [id number] [place] [address] [place] HIGH SENSITIVITY TROPONIN To n 05-21-2024 Troponin T.cardiac High sensitivity method [Mass/Vol] 8 ng/L Normal <12 [facility] Comment on above: Order Comment: Speci men Type: BLOOD SPECIMENOrdering Facility: [facility] Address: [address] [place] [address] Result Comment: When assessing risk for acute [...] 1 988-5, HSTNT ####[facility] LABCLIA [id number] [place] [address] [place] HIV 1+2 Ab IA Qlon 4 HIV 1 and 2 Ab IA.rapid Nom (S/P/Bld) Normal [facility] Comment on above: Order Comment: Speci men Type: BLOOD SPECIMENOrdering Facility: [facility] Address: [address] [place] [address] Result Comment: Test not indicated. Performed By: #### 3 1201-7, 18996-2, 5195-3, 88615-2 ####[facility] LABCLIA [id number] [place] [address] [place] HIV 1+2 Ab+HIV1 p24 Ag IA Ql Non-Reactive Normal Nonreactive [facility] Comment on above: Order Comment: Speci men Type: BLOOD SPECIMENOrdering Facility: [facility] Address: [address] [place] [address] Performed By: #### 3 1201-7, 48287-8, 5195-3, 41745-2 ####[facility] LABCLIA [id number] [place] [address] [place] HIV immunoassay testing algorithm interpretation (S/P/Bld) [Interp] Normal [facility] Comment on above: Order Comment: Speci men Type: BLOOD SPECIMENOrdering Facility: [facility] Address: [address] [place] [address] Result Comment: No e vidence of HIV-1 or HIV-2 infection. Should recent infection be suspected, repeat testing may be considered 2-3 weeks after this draw.[place] Rev. Code 3701.243(E): This information has been [...] test results or diagnoses. Performed By: #### 3 1201-7, 93773-8, 5195-3, 83844-4 ####[facility] LABCLIA [id number] [place] [address] [place] LKM ABon 05-21-2024 LIVER-KIDNEY MICROSOMAL ABS <1:20 Normal <1:20 [facility] Comment on above: Order Comment: Speci men Type: BLOOD SPECIMENOrdering Facility: [facility] Address: [address] [place] [address] Result Comment: INTE RPRETIVE INFORMATION: Mdnbc-Rccyhr-Zaolqxxsr Abs, IgGLiver-Kidney Microsome IgG antibody (anti-LKM), as detected byindirect immunofluorescent antibody (IFA) techniques, may beobserved in patients with autoimmune hepatitis type 2 (AIH-2),AIH-2 associated with xqsboljpxhtmxjhuzwaouzrkxqpz-ciblantvnxs-wuutxqwkjm dystrophy (APECED),viral hepatitis C or D, and some forms of drug-induced hepatitis.This IFA does not differentiate among the four types of LKMantibodies (LKM-1, LKM-2, LKM-3, and a fourth type that fgxalacfqlBEM3E7 and CY antigens). Of these, anti-LKM-1 (aytsveaojgI617DPX8) IgG antibodies are considered specific for AIH-2.This test was developed and its performance characteristicsdetermined by [employer]. It has not been cleared orapproved by the [place] Food and Drug Administration. This test wasperformed in a CLIA certified laboratory and is intended forclinical purposes.Performed By: [facility] [address] [place] [address]Mvilvshlhb Director: Bob Heredia MD, PhDCLIA Number: [id number] Performed By: #### L KM ####[facility] [id number] [place] [address] Mitochondria Ab IF Ql (S)on 05-21-2024 Mitochondria M2 Ab IA Qn (S) 16.3 Units Normal <=20.0 [facility] Comment on above: Order Comment: Khushbu grajeda Type: BLOOD SPECIMENOrdering Facility: [facility] Address: [address] [place] [address] Performed By: #### 1 4252-1, 60077-3 ####[facility] [id number] [place] [address] [place] Mitochondria M2 Ab Ql (S) Negative Normal Negative [facility] Comment on above: Order Comment: Khushbu grjaeda Type: BLOOD SPECIMENOrdering Facility: [facility] Address: [address] [place] [address] Result Comment: Anti -mitochondrial antibody test is used as an aid in diagnosis of primary biliary cholangitis. Clinical correlation is required. Performed By: #### 1 4252-1, 01990-4 ####[facility] LABIA [id number] [place] [address] [place] NT[facility]BNP [facility] Natriuretic peptide.B prohormone N-Terminal [Mass/Vol] <36 Normal <125 [facility] Comment on above: Order Comment: Khushbu grajeda Type: BLOOD SPECIMENOrdering Facility: [facility] Address: [address] [place] [address] Performed By: #### 1 825-9, 2064-4, 44069-3, 50729-2 ####[facility] LABIA [id number] [place] [address] [place] Nuclear Ab IA Ql (S)on 05-21 MONA SCR QUAL Negative Normal Negative [facility] Comment on above: Order Comment: Luisi taras Type: BLOOD SPECIMENOrdering Facility: [facility] Address: [address] [place] [address] Result Comment: The qualitative antinuclear antibody screen test performed using the following antigens: dsDNA, Chromatin, Ribosomal P, SS-A 60, SS-A 52, SS-B, Sm, SmRNP, SUPERVISOR RECORDS CHANGE A, SUPERVISOR RECORDS CHANGE 68, Scl-70, Dara-1, and Centromere B. Methodology: Multiplex flow immunoassay. Performed By: #### 4 7383-5 ####[facility] LABIA [id number] [place] [address] [place] PT panel Coag (PPP)on 2023 INR Coag (PPP) [Relative time] 1.1 {INR} Normal 0.9-1.3 [facility] Comment on above: Order Comment: Khushbu grajeda Type: BLOOD SPECIMENOrdering Facility: [facility] Address: [address] [place] [address] Result Comment: Salma min K Antagonist (VKA) [...] al. Chest 2012, 141:7S-47SNishimura RA, et al. [facility] 2017, 70: 252-289 Performed By: #### 3 4528-0, 06549-2 ####[facility] LABIA [id number] [place] [address] [place] PT Coag (PPP) [Time] 11.5 s Normal 9.7-13.0 [facility] Comment on above: Order Comment: Speci men Type: BLOOD SPECIMENOrdering Facility: [facility] Address: [address] [place] [address] Performed By: #### 3 4528-0, 23577-9 ####[facility] [id number] [place] [address] [place] Smooth muscle Ab Ql (S)on ACTIN SMOOTH MUSCLE IGG QUALITATIVE Negative Normal Negative [facility] Comment on above: Order Comment: Speci men Type: BLOOD SPECIMENOrdering Facility: [facility] Address: [address] [place] [address] Performed By: #### 1 4252-1, 67167-6 ####[facility] [id number] [place] [address] [place] ACTIN SMOOTH MUSCLE IGG QUANTITATIVE 7 Units Normal <20 [facility] Comment on above: Order Comment: Speci men Type: BLOOD SPECIMENOrdering Facility: [facility] Address: [address] [place] [address] Performed By: #### 1 4252-1, 45849-3 ####[facility] [id number] [place] [address] [place] CNOVon 05-14-2024 CNOV Normal [facility] CNPNon 05-10-2024 CNPN Normal [facility] MONA SCREEN, IFA, W/REFL TITE R [...] indicated. For additional information, please refer to http://education.DxNA/faq/DRN043 (This link is being provided for informational/ educational purposes only.) Performed By: #### 8 99, 01321, 482, %37021, 7600, 496, 33203, 5616, %77073, 866, 6399 #### [facility] [address], [address] [place] [address] [employer] Engineer: Jeremías Martinez MD ANTINUCLEAR ANTIBODIES TITER AND [...] AC-23: Cytoplasmic International Consensus on MONA Patterns (https://[email or web address]/[email or web address]/[email or web address]) Performed By: #### 8 99, 68254, 482, %02012, 7600, 496, 55117, 5616, %01914, 866, 6399 #### [facility] [address], [address] [place], [place] [address] [employer] Engineer: Jeremías Martinez MD MONA TITER 1:80 High [facility] Comment on above: Result Comment: A lo w level MONA titer may be present in pre-clinical autoimmune diseases and normal individuals. Reference Range <1:40 Negative 1:40-1:80 Low Antibody Level >1:80 Elevated Antibody Level Performed By: #### 8 99, 92210, 482, %81679, 7600, 496, 58363, 5616, %83080, 866, 6399 #### [facility] [address] [place] [address], [address] [place] [address] [employer] Engineer: Jeremías Martinez MD CBC (INCLUDES DIFF/PLT)on Basophils (Bld) [#/Vol] 0.082 10*3/uL Normal 0-200 [facility] Comment on above: Performed By: #### 8 99, 17034, 482, %89122, 7600, 496, 33454, 5616, %17320, 866, 6399 #### [facility] of [place] [address] [employer] Engineer: Jeremías Martinez MD Basophils/100 WBC (Bld) 1.2 % Normal [facility] Comment on above: Performed By: #### 8 99, 67704, 482, %78195, 7600, 496, 90954, 5616, %22169, 866, 6399 #### [facility] [place] [address] [employer] Engineer: Jeremías Martinez MD Eosinophils (Bld) [#/Vol] 0.442 10*3/uL Normal 15-500 [facility] Comment on above: Performed By: #### 8 99, 50048, 482, %48876, 7600, 496, 26051, 5616, %43229, 866, 6399 #### [facility] [place] [address] [employer] Engineer: Jeremías Martinez MD Eosinophils/100 WBC (Bld) 6.5 % Normal [facility] Comment on above: Performed By: #### 8 99, 23629, 482, %68647, 7600, 496, 20466, 5616, %20864, 866, 6399 #### [facility] of [place] [address] [employer] Engineer: Jeremías Martinez MD Erythrocyte distribution width (RBC) [Ratio] 17.2 % High 11.0-15.0 [facility] Comment on above: Performed By: #### 8 99, 44486, 482, %16390, 7600, 496, 50922, 5616, %13375, 866, 6399 #### [facility] of [address] [place] [address] [employer] Engineer: Jeremías Martinez MD Hematocrit (Bld) [Volume fraction] 51.3 % High 38.5-50.0 [facility] Comment on above: Performed By: #### 8 99, 39778, 482, %10140, 7600, 496, 20328, 5616, %10567, 866, 6399 #### [facility] [place] [address] [employer] Engineer: Jeremías Martinez MD Hemoglobin (Bld) [Mass/Vol] 17.1 g/dL Normal 13.2-17.1 [facility] Comment on above: Performed By: #### 8 99, 73743, 482, %71939, 7600, 496, 74778, 5616, %27779, 866, 6399 #### [facility] [place] [address] [employer] Engineer: Jeremías Martinez MD Lymphocytes (Bld) [#/Vol] 1.346 10*3/uL Normal 850-3900 [facility] Comment on above: Performed By: #### 8 99, 46104, 482, %07028, 7600, 496, 13125, 5616, %78258, 866, 6399 #### [facility] [place] [address] [employer] Engineer: Jeremías Martinez MD Lymphocytes/100 WBC (Bld) 19.8 % Normal [facility] Comment on above: Performed By: #### 8 99, 74142, 482, %79862, 7600, 496, 78416, 5616, %06379, 866, 6399 #### [facility] [place] [address] [employer] Engineer: Jeremías Martinez MD MCH (RBC) [Entitic mass] 26.9 pg Low 27.0-33.0 [facility] Comment on above: Performed By: #### 8 99, 13795, 482, %80257, 7600, 496, 79640, 5616, %93302, 866, 6399 #### [facility] of [place] [address] [employer] Engineer: Jeremías Martinez MD MCHC (RBC) [Mass/Vol] 33.3 g/dL Normal 32.0-36.0 [facility] Comment on above: Performed By: #### 8 99, 67915, 482, %50020, 7600, 496, 81609, 5616, %19004, 866, 6399 #### [facility] of [place] [address] [employer] Engineer: Jeremías Martinez MD MCV (RBC) [Entitic vol] 80.7 fL Normal 80.0-100.0 [facility] Comment on above: Performed By: #### 8 99, 26583, 482, %09633, 7600, 496, 01841, 5616, %76284, 866, 6399 #### [facility] [place] [address] [employer] Engineer: Jeremías Martinez MD Monocytes (Bld) [#/Vol] 0.428 10*3/uL Normal 200-950 [facility] Comment on above: Performed By: #### 8 99, 20381, 482, %94450, 7600, 496, 21585, 5616, %41999, 866, 6399 #### [facility] of [place] [address] [employer] Engineer: Jeremías Martinez MD Monocytes/100 WBC (Bld) 6.3 % Normal [facility] Comment on above: Performed By: #### 8 99, 16478, 482, %33937, 7600, 496, 67089, 5616, %74902, 866, 6399 #### [facility] of [place] [address] [employer] Engineer: Jeremías Martinez MD Neutrophils (Bld) [#/Vol] 4.502 10*3/uL Normal 8971-4208 [facility] Comment on above: Performed By: #### 8 99, 97380, 482, %75265, 7600, 496, 15667, 5616, %26389, 866, 6399 #### [facility] of [place] [address] [employer] Engineer: Jeremías Martinez MD Neutrophils/100 WBC (Bld) 66.2 % Normal [facility] Comment on above: Performed By: #### 8 99, 87918, 482, %24209, 7600, 496, 36852, 5616, %19069, 866, 6399 #### [facility] of [place] [address] [employer] Engineer: Jeremías Martinez MD Platelet mean volume (Bld) [Entitic vol] 11.4 fL Normal 7.5-12.5 [facility] Comment on above: Performed By: #### 8 99, 38414, 482, %83193, 7600, 496, 09098, 5616, %30225, 866, 6399 #### [facility] [place] [address] [employer] Engineer: Jeremías Martinez MD Platelets (Bld) [#/Vol] 152 10*3/uL Normal 140-400 [facility] Comment on above: Performed By: #### 8 99, 40868, 482, %91693, 7600, 496, 38874, 5616, %78629, 866, 6399 #### [facility] of [place] [address] [employer] Engineer: Jeremías Martinez MD RBC (Bld) [#/Vol] 6.36 10*6/uL High 4.20-5.80 [facility] Comment on above: Performed By: #### 8 99, 91977, 482, %03496, 7600, 496, 54483, 5616, %30279, 866, 6399 #### [facility] of [place] [address] [employer] Engineer: Jeremías Martinez MD WBC (Bld) [#/Vol] 6.8 10*3/uL Normal 3.8-10.8 [facility] Comment on above: Performed By: #### 8 99, 41833, 482, %04781, 7600, 496, 18159, 5616, %57174, 866, 6399 #### [facility] [place] [address] [employer] Engineer: Jeremías Martinez MD COMPREHENSIVE METABOLIC PANE [facility] 04-09-2024 Albumin [Mass/Vol] 5.2 g/dL High 3.6-5.1 [facility] Comment on above: Performed By: #### 8 99, 97332, 482, %23367, 7600, 496, 05962, 5616, %67091, 866, 6399 #### [facility] [place] [address] [employer] Engineer: Jeremías Martinez MD Albumin/Globulin [Mass ratio] 1.9 {ratio} Normal 1.0-2.5 [facility] Comment on above: Performed By: #### 8 99, 33385, 482, %80185, 7600, 496, 80574, 5616, %96897, 866, 6399 #### [facility] [place] [address] [employer] Engineer: Jeremías Martinez MD ALP [Catalytic activity/Vol] 115 U/L Normal 36-130 [facility] Comment on above: Performed By: #### 8 99, 98282, 482, %55448, 7600, 496, 76836, 5616, %07982, 866, 6399 #### [facility] [place] [address] [employer] Engineer: Jeremías Martinez MD ALT [Catalytic activity/Vol] 204 U/L High 9-46 [facility] Comment on above: Performed By: #### 8 99, 47884, 482, %33322, 7600, 496, 12999, 5616, %15992, 866, 6399 #### [facility] of [address], [address] [place] [address] [employer] Engineer: Jeremías Martinez MD AST [Catalytic activity/Vol] 161 U/L High 10-40 [facility] Comment on above: Performed By: #### 8 99, 08508, 482, %11199, 7600, 496, 65499, 5616, %59793, 866, 6399 #### [facility] [place] [address] [employer] Engineer: Jeremías Martinez MD Bilirubin [Mass/Vol] 1.2 mg/dL Normal 0.2-1.2 [facility] Comment on above: Performed By: #### 8 99, 99121, 482, %70566, 7600, 496, 77104, 5616, %42763, 866, 6399 #### [facility] [place] [address] [employer] Engineer: Jeremías Martinez MD BUN/CREATININE RATIO SEE NOTE: Normal 6-22 [facility] Comment on above: Result Comment: Not Reported: BUN and Creatinine are within reference range. Performed By: #### 8 99, 47569, 482, %85674, 7600, 496, 75938, 5616, %74166, 866, 6399 #### [facility] [place] [address] [employer] Engineer: Jeremías Martinez MD Calcium [Mass/Vol] 10.2 mg/dL Normal 8.6-10.3 [facility] Comment on above: Performed By: #### 8 99, 41009, 482, %13405, 7600, 496, 96381, 5616, %11530, 866, 6399 #### [facility] [place] [address] [employer] Engineer: Jeremías Martinez MD Chloride [Moles/Vol] 103 mmol/L Normal 98-110 [facility] Comment on above: Performed By: #### 8 99, 71792, 482, %59899, 7600, 496, 86323, 5616, %62464, 866, 6399 #### [facility] [place] [address] [employer] Engineer: Jeremías Martinez MD CO2 [Moles/Vol] 21 mmol/L Normal 20-32 [facility] Comment on above: Performed By: #### 8 99, 69359, 482, %73116, 7600, 496, 99623, 5616, %54845, 866, 6399 #### [facility] [place] [address] [employer] Engineer: Jeremías Martinez MD Creatinine [Mass/Vol] 0.89 mg/dL Normal 0.60-1.26 [facility] Comment on above: Performed By: #### 8 99, 50576, 482, %67799, 7600, 496, 58889, 5616, %52518, 866, 6399 #### [facility] [place] [address] [employer] Engineer: Jeremías Martinez MD GFR/1.73 sq M.predicted among non-blacks MDRD (S/P/Bld) [Vol rate/Area] 117 mL/min/{1.73_m2} Normal > OR = 60 [facility] Comment on above: Performed By: #### 8 99, 29207, 482, %88527, 7600, 496, 42357, 5616, %87247, 866, 6399 #### [facility] [place] [address] [employer] Engineer: Jeremías Martinez MD Globulin (S) [Mass/Vol] 2.8 g/dL Normal 1.9-3.7 [facility] Comment on above: Performed By: #### 8 99, 22414, 482, %71659, 7600, 496, 23796, 5616, %65719, 866, 6399 #### [facility] [place] [address] [employer] Engineer: Jeremías Martinez MD Glucose [Mass/Vol] 108 mg/dL High 65-99 [facility] Comment on above: Result Comment: Fasting reference interval For someone without known diabetes, a glucose value between 100 and 125 mg/dL is consistent with prediabetes and should be confirmed with a follow-up test. Performed By: #### 8 99, 34094, 482, %57999, 7600, 496, 50806, 5616, %51116, 866, 6399 #### [facility] [place] [address] [employer] Engineer: Jeremías Martinez MD Potassium [Moles/Vol] 4.3 mmol/L Normal 3.5-5.3 [facility] Comment on above: Performed By: #### 8 99, 33251, 482, %81647, 7600, 496, 26885, 5616, %06124, 866, 6399 #### [facility] [place] [address] [employer] Engineer: Jeremías Martinez MD Protein [Mass/Vol] 8.0 g/dL Normal 6.1-8.1 [facility] Comment on above: Performed By: #### 8 99, 84657, 482, %45076, 7600, 496, 79773, 5616, %07829, 866, 6399 #### [facility] [place] [address] [employer] Engineer: Jeremías Martinez MD Sodium [Moles/Vol] 136 mmol/L Normal 135-146 [facility] Comment on above: Performed By: #### 8 99, 15403, 482, %18159, 7600, 496, 87467, 5616, %50785, 866, 6399 #### [facility] [place] [address] [employer] Engineer: Jeremías Martinez MD Urea nitrogen [Mass/Vol] 10 mg/dL Normal 7-25 [facility] Comment on above: Performed By: #### 8 99, 71740, 482, %40134, 7600, 496, 86742, 5616, %96736, 866, 6399 #### [facility] [address], [address] [place] [address] [employer] Engineer: Jeremías Martinez MD CORTISOL, TOTALon 04-09-2024 CORTISOL, TOTAL 12.9 mcg/dL Normal [facility] Comment on above: Result Comment: Refe rence Range: For 8 a.m.(7-9 a.m.) Specimen: 4.0-22.0 Reference Range: For 4 p.m.(3-5 p.m.) Specimen: 3.0-17.0 * Please interpret above results accordingly * Performed By: #### 8 99, 74876, 482, %77004, 7600, 496, 46928, 5616, %63833, 866, 6399 #### [facility] [address], [address] [place] [address] [employer] Engineer: Jeremías Martinez MD GGTon 04-09-2024 Gamma glutamyl transferase [Catalytic activity/Vol] 199 U/L High 3-90 [facility] Comment on above: Performed By: #### 8 99, 19326, 482, %10112, 7600, 496, 57282, 5616, %46973, 866, 6399 #### [facility] [place] [address] [employer] Engineer: Jeremías Martinez MD HCV RNA, QUANTITATIVE REAL T ROBBY PCRon 04-09-2024 COMMENT Normal [facility] Comment on above: Result Comment: This test was performed using Real-Time Polymerase Chain Reaction. Reportable Range: 15 IU/mL to 100,000,000 IU/mL (1.18 Log IU/mL to 8.00 Log IU/mL). The analytical performance characteristics of this assay have been determined by [employer]. The modifications have not been cleared or approved by the FDA. This assay has been validated pursuant to the CLIA regulations and is used for clinical purposes. For more information on this test, go to: http://education.[employer]/faq/PNG48c1 (This link is being provided for informational/ educational purposes only.) This assay is intended for use as an aid in the diagnosis of HCV infection and the management of HCV infected patients undergoing anti-viral therapy. Performed By: #### 8 99, 18653, 482, %56392, 7600, 496, 30253, 5616, %48356, 866, 6399 #### [facility] [address], [address] [employer] Engineer: Jeremías Martinez MD HCV RNA, QUANTITATIVE REAL TIME PCR Not detected Normal NOT DETECTED [facility] Comment on above: Performed By: #### 8 99, 87244, 482, %88354, 7600, 496, 81267, 5616, %40131, 866, 6399 #### [facility] [address], [address] [place] [address] [employer] Engineer: Jeremías Martinez MD Result Comment: HCV RNA [...] 5.5 % of total Hgb Normal <5.7 [facility] Comment on above: Result Comment: For [...] change in test platforms from the [employer] to the Susannah antione c503 may have shifted HbA1c results compared to historical results. Based on laboratory validation testing conducted at [facility], the [employer]annah platform relative to the [place] [...] not recommended. Performed By: #### 8 99, 50950, 482, %71378, 7600, 496, 42471, 5616, %03244, 866, 6399 #### [facility] [address], [address] [place] [address] [employer] Engineer: Jeremías Martinez MD HEPATITIS PANEL, ACUTE W/REF LEILANI TO CONFIRMATIONon 04-09-2024 HEPATITIS A IGM Non-Reactive Normal NON-REACTIVE [facility] Comment on above: Result Comment: For additional information, please refer to http://[employer]ort/faq/ZWR353 (This link is being provided for informational/ educational purposes only.) Performed By: #### 8 99, 36468, 482, %31208, 7600, 496, 42961, 5616, %25735, 866, 6399 #### [facility] [address], [address] [place] [address] [employer] Engineer: Jeremías Martinez MD HEPATITIS B CORE ANTIBODY (IGM) Non-Reactive Normal NON-REACTIVE [facility] Comment on above: Result Comment: For additional information, please refer to http://R[employer]Out.[employer]ort/faq/LER527 (This link is being provided for informational/ educational purposes only.) Performed By: #### 8 99, 27506, 482, %90993, 7600, 496, 07173, 5616, %94865, 866, 6399 #### [facility] [address], [address] [place] [address] [employer] Engineer: Jeremías Martinez MD HEPATITIS B SURFACE ANTIGEN Reactive Abnormal NON-REACTIVE [facility] Comment on above: Result Comment: For additional information, please refer to http://[employer]ort/faq/YKV360 (This link is being provided for informational/ educational purposes only.) Performed By: #### 8 99, 68258, 482, %38965, 7600, 496, 66429, 5616, %87439, 866, 6399 #### [facility] [address], [address] [place] [address] [employer] Engineer: Jeremías Martinez MD HEPATITIS C ANTIBODY Reactive Abnormal NON-REACTIVE [facility] Comment on above: Result Comment: Based on this result, the sample will be tested for HCV RNA by a Nucleic Acid Amplification Test (NAAT) to determine if the patient has a current active infection. Performed By: #### 8 99, 65149, 482, %11662, 7600, 496, 50618, 5616, %85804, 866, 6399 #### [facility] [place] [address] [employer] Engineer: Jeremías Martinez MD IRON, TIBC AND FERRITIN PANE Cristian 04-09-2024 % SATURATION 53 % (calc) High 20-48 [facility] Comment on above: Order Comment: NON-F ASTING NON-FASTING NON-FASTING NON-FASTING NON-FASTING NON-FASTING Performed By: #### 8 99, 36038, 482, %75671, 7600, 496, 48546, 5616, %29420, 866, 6399 #### [facility] [place] [address] [employer] Engineer: Jeremías Maritnez MD Ferritin [Mass/Vol] 302 ng/mL Normal 38-380 [facility] Comment on above: Order Comment: NON-F ASTING NON-FASTING NON-FASTING NON-FASTING NON-FASTING NON-FASTING Performed By: #### 8 99, 38767, 482, %67423, 7600, 496, 90915, 5616, %34767, 866, 6399 #### [facility] [place] [address] [employer] Engineer: Jeremías Martinez MD IRON BINDING CAPACITY 390 mcg/dL (calc) Normal 250-425 [facility] Comment on above: Order Comment: NON-F ASTING NON-FASTING NON-FASTING NON-FASTING NON-FASTING NON-FASTING Performed By: #### 8 99, 05600, 482, %03020, 7600, 496, 34008, 5616, %92355, 866, 6399 #### [facility] [address], [address] [place] [address] [employer] Engineer: Jeremías Martinez MD IRON, TOTAL 206 mcg/dL High 50-180 [facility] Comment on above: Order Comment: NON-F ASTING NON-FASTING NON-FASTING NON-FASTING NON-FASTING NON-FASTING Performed By: #### 8 99, 17440, 482, %14264, 7600, 496, 58831, 5616, %27710, 866, 6399 #### [facility] [address], [address] [place] [address] [employer] Engineer: Jeremías Martinez MD LIPID PANEL, [facility] 05 Cholesterol [Mass/Vol] 226 mg/dL High <200 [facility] Comment on above: Performed By: #### 8 99, 72080, 482, %71905, 7600, 496, 74873, 5616, %91465, 866, 6399 #### [facility] [address], [address] [place] [address] [employer] Engineer: Jeremías Martinez MD Cholesterol in HDL [Mass/Vol] 56 mg/dL Normal > OR = 40 [facility] Comment on above: Performed By: #### 8 99, 84459, 482, %88722, 7600, 496, 47353, 5616, %72661, 866, 6399 #### [facility] [address], [address] [place] [address] [employer] Engineer: Jeremías Martinez MD Cholesterol in LDL [Mass/Vol] 134 mg/dL High [facility] Comment on above: Result Comment: Refe rence range: <100 Desirable range <100 mg/dL for primary prevention; <70 mg/dL for patients with CHD or diabetic patients with > or = 2 CHD risk factors. LDL-C is now calculated using the Markell-Farias calculation, which is a validated novel method providing better accuracy than the Friedewald equation in the estimation of LDL-C. Markell FRANK et al. TIFFANI. 2013;310(19): 8553-0971 (http://education.DxNA/faq/XFB590) Performed By: #### 8 99, 22505, 482, %50999, 7600, 496, 45859, 5616, %14933, 866, 6399 #### [facility] [place] [address] [employer] Engineer: Jeremías Martinez MD Cholesterol.total/C holesterol in HDL [Mass ratio] 4.0 {ratio} Normal <5.0 [facility] Comment on above: Performed By: #### 8 99, 34237, 482, %89985, 7600, 496, 55534, 5616, %40167, 866, 6399 #### [facility] [address], [address] [place] [address] [employer] Engineer: Jeremías Martinez MD NON HDL CHOLESTEROL 170 mg/dL (calc) High <130 [facility] Comment on above: Result Comment: For patients with diabetes plus 1 major ASCVD risk factor, treating to a non-HDL-C goal of <100 mg/dL (LDL-C of <70 mg/dL) is considered a therapeutic option. Performed By: #### 8 99, 97170, 482, %57229, 7600, 496, 83013, 5616, %10287, 866, 6399 #### [facility] [address], [address] [place] [address] [employer] Engineer: Jeremías Martinez MD Triglyceride [Mass/Vol] 218 mg/dL High <150 [facility] Comment on above: Result Comment: If a non-fasting specimen was collected, consider repeat triglyceride testing on a fasting specimen if clinically indicated. Gopal et al. J. of Clin. Lipidol. 2015;9:129-169. Performed By: #### 8 99, 12020, 482, %49185, 7600, 496, 58376, 5616, %08749, 866, 6399 #### [facility] [address], [address] [place] [address] [employer] Engineer: Jeremías Martinez MD T4, FREEon 04-09-2024 Free T4 [Mass/Vol] 1.2 ng/dL Normal 0.8-1.8 [facility] Comment on above: Performed By: #### 8 99, 06217, 482, %02688, 7600, 496, 72852, 5616, %79229, 866, 6399 #### [facility] [address], [address] [place] [address] [employer] Engineer: Jeremías Martinez MD TSHon 04-09-2024 TSH Qn 2.17 m[IU]/L Normal 0.40-4.50 [facility] Comment on above: Performed By: #### 8 99, 72361, 482, %05074, 7600, 496, 11116, 5616, %26066, 866, 6399 #### [facility] [address], [address] [place] [address] [employer] Engineer: Jeremías Martinez MD CNOVon 09-17-2023 CNOV Normal [facility] VIBRATION CONTROLLED TRANSIE NT ELASTOGRAPHY (POC)on 09-17-2023 [facility] CNPNon 09-15-2023 CNPN Normal [facility] C-REACTIVE PROTEIN (CRP)on CRP [Mass/Vol] <0.9 mg/dL [facility] CBC W Auto Differential pane l (Bld)on 09-12-2023 Basophils (Bld) [#/Vol] 0.12 10*3/uL High <0.11 [facility] Comment on above: Order Comment: Speci men Type: BLOOD SPECIMEN Ordering Facility: [facility] Address: [address] [place] [address] Performed By: #### 5 7021-8 #### [facility] CLIA [id number] [facility] [place] [address] [place] Basophils/100 WBC (Bld) 1.5 % Normal [facility] Comment on above: Order Comment: Speci men Type: BLOOD SPECIMEN Ordering Facility: [facility] Address: [address] [place] [address] Performed By: #### 5 7021-8 #### [facility] IA [id number] [address] [place] [address] [place] Differential cell count method Nom (Bld) Auto Normal [facility] Comment on above: Order Comment: Speci men Type: BLOOD SPECIMEN Ordering Facility: [facility] Address: [address] [place] [address] Performed By: #### 5 7021-8 #### [facility] IA [id number] [address] [place] [address] [place] Eosinophils (Bld) [#/Vol] 0.74 10*3/uL High <0.46 [facility] Comment on above: Order Comment: Speci men Type: BLOOD SPECIMEN Ordering Facility: [facility] Address: [address] [place] [address] Performed By: #### 5 7021-8 #### [facility] IA [id number] [address] [place] [address] [place] Eosinophils/100 WBC (Bld) 9.0 % Normal [facility] Comment on above: Order Comment: Speci men Type: BLOOD SPECIMEN Ordering Facility: [facility] Address: [address] [place] [address] Performed By: #### 5 7021-8 #### [facility] IA [id number] [address] [place] [address] [place] Erythrocyte distribution width (RBC) [Ratio] 14.1 % Normal 11.5-15.0 [facility] Comment on above: Order Comment: Speci men Type: BLOOD SPECIMEN Ordering Facility: [facility] Address: [address] [place] [address] Performed By: #### 5 7021-8 #### [facility] IA [id number] [facility] [place] [address] [place] Hematocrit (Bld) [Volume fraction] 53.2 % High 39.0-51.0 [facility] Comment on above: Order Comment: Speci men Type: BLOOD SPECIMEN Ordering Facility: [facility] Address: [address] [place] [address] Performed By: #### 5 7021-8 #### [facility] IA [id number] [address] [place] [address] [place] Hemoglobin (Bld) [Mass/Vol] 17.8 g/dL High 13.0-17.0 [facility] Comment on above: Order Comment: Speci men Type: BLOOD SPECIMEN Ordering Facility: [facility] Address: [address] [place] [address] Performed By: #### 5 7021-8 #### [facility] IA [id number] [address] [place] [address] [place] Immature granulocytes (Bld) [#/Vol] 0.06 10*3/uL Normal <0.10 [facility] Comment on above: Order Comment: Speci men Type: BLOOD SPECIMEN Ordering Facility: [facility] Address: [address] [place] [address] Performed By: #### 5 7021-8 #### [facility] IA [id number] [address] [place] [address] [place] Immature granulocytes/100 WBC (Bld) 0.7 % Normal [facility] Comment on above: Order Comment: Speci men Type: BLOOD SPECIMEN Ordering Facility: [facility] Address: [address] [place] [address] Performed By: #### 5 7021-8 #### [facility] CLIA [id number] [address] [place] [address] [place] Lymphocytes (Bld) [#/Vol] 1.48 10*3/uL Normal 1.00-4.00 [facility] Comment on above: Order Comment: Speci men Type: BLOOD SPECIMEN Ordering Facility: [facility] Address: [address] [place] [address] Performed By: #### 5 7021-8 #### [facility] CLIA [id number] [address] [place] [address] [place] Lymphocytes/100 WBC (Bld) 18.1 % Normal [facility] Comment on above: Order Comment: Speci men Type: BLOOD SPECIMEN Ordering Facility: [facility] Address: [address] [place] [address] Performed By: #### 5 7021-8 #### [facility] CLIA [id number] [address] [place] [address] [place] MCH (RBC) [Entitic mass] 26.5 pg Normal 26.0-34.0 [facility] Comment on above: Order Comment: Speci men Type: BLOOD SPECIMEN Ordering Facility: [facility] Address: [address] [place] [address] Performed By: #### 5 7021-8 #### [facility] IA [id number] [address] [place] [address] [place] MCHC (RBC) [Mass/Vol] 33.5 g/dL Normal 30.5-36.0 [facility] Comment on above: Order Comment: Speci men Type: BLOOD SPECIMEN Ordering Facility: [facility] Address: [address] [place] [address] Performed By: #### 5 7021-8 #### [facility] IA [id number] [place] [address] [place] MCV (RBC) [Entitic vol] 79.2 fL Low 80.0-100.0 [facility] Comment on above: Order Comment: Speci men Type: BLOOD SPECIMEN Ordering Facility: [facility] Address: [address] [place] [address] Performed By: #### 5 7021-8 #### [facility] CLIA [id number] [address] [place] [address] [place] Monocytes (Bld) [#/Vol] 0.60 10*3/uL Normal <0.87 [facility] Comment on above: Order Comment: Speci men Type: BLOOD SPECIMEN Ordering Facility: [facility] Address: [address] [place] [address] Performed By: #### 5 7021-8 #### [facility] CLIA [id number] [address] [place] [address] [place] Monocytes/100 WBC (Bld) 7.3 % Normal [facility] Comment on above: Order Comment: Speci men Type: BLOOD SPECIMEN Ordering Facility: [facility] Address: [address] [place] [address] Performed By: #### 5 7021-8 #### [facility] CLIA [id number] [address] [place] [address] [place] Neutrophils (Bld) [#/Vol] 5.19 10*3/uL Normal 1.45-7.50 [facility] Comment on above: Order Comment: Speci men Type: BLOOD SPECIMEN Ordering Facility: [facility] Address: [address] [place] [address] Performed By: #### 5 7021-8 #### [facility] CLIA [id number] [address] [place] [address] [place] Neutrophils/100 WBC (Bld) 63.4 % Normal [facility] Comment on above: Order Comment: Speci men Type: BLOOD SPECIMEN Ordering Facility: [facility] Address: [address] [place] [address] Performed By: #### 5 7021-8 #### [facility] CLIA [id number] [address] [place] [address] [place] Nucleated RBC (Bld) [#/Vol] 10*3/uL Normal <0.01 [facility] Comment on above: Order Comment: Speci men Type: BLOOD SPECIMEN Ordering Facility: [facility] Address: [address] [place] [address] Performed By: #### 5 7021-8 #### [facility] CLIA [id number] [address] [place] [address] [place] Nucleated RBC/100 WBC (Bld) [Ratio] 0.0 /100 WBC Normal [facility] Comment on above: Order Comment: Speci men Type: BLOOD SPECIMEN Ordering Facility: [facility] Address: [address] [place] [address] Performed By: #### 5 7021-8 #### [facility] IA [id number] [address] [place] [address] [place] Platelet mean volume (Bld) [Entitic vol] 12.2 fL Normal 9.0-12.7 [facility] Comment on above: Order Comment: Speci men Type: BLOOD SPECIMEN Ordering Facility: [facility] Address: [address] [place] [address] Performed By: #### 5 7021-8 #### [facility] IA [id number] [address] [place] [address] [place] Platelets (Bld) [#/Vol] 218 10*3/uL Normal 150-400 [facility] Comment on above: Order Comment: Speci men Type: BLOOD SPECIMEN Ordering Facility: [facility] Address: [address] [place] [address] Performed By: #### 5 7021-8 #### [facility] IA [id number] [address] [place] [address] [place] RBC (Bld) [#/Vol] 6.72 10*6/uL High 4.20-6.00 [facility] Comment on above: Order Comment: Speci men Type: BLOOD SPECIMEN Ordering Facility: [facility] Address: [address] [place] [address] Performed By: #### 5 7021-8 #### [facility] IA [id number] [address] [facility] [place] [address] [place] WBC (Bld) [#/Vol] 8.19 10*3/uL Normal 3.70-11.00 [facility] Comment on above: Order Comment: Speci men Type: BLOOD SPECIMEN Ordering Facility: [facility] Address: [address] [place] [address] Performed By: #### 5 7021-8 #### [facility] IA [id number] [address] [facility] [place] [address] [place] Basophils (Bld) [#/Vol] 0.12 10*3/uL High <0.11 k/uL [facility] Basophils/100 WBC (Bld) 1.5 % [facility] Differential cell count method Nom (Bld) Auto [facility] Eosinophils (Bld) [#/Vol] 0.74 10*3/uL High <0.46 k/uL [facility] Eosinophils/100 WBC (Bld) 9.0 % [facility] Erythrocyte distribution width (RBC) [Ratio] 14.1 % 11.5 - 15.0 % [facility] Hematocrit (Bld) [Volume fraction] 53.2 % High 39.0 - 51.0 % [facility] Hemoglobin (Bld) [Mass/Vol] 17.8 g/dL High 13.0 - 17.0 g/dL [facility] Immature granulocytes (Bld) [#/Vol] 0.06 10*3/uL <0.10 k/uL [facility] Immature granulocytes/100 WBC (Bld) 0.7 % [facility] Lymphocytes (Bld) [#/Vol] 1.48 10*3/uL 1.00 - 4.00 k/uL [facility] Lymphocytes/100 WBC (Bld) 18.1 % [facility] MCH (RBC) [Entitic mass] 26.5 pg 26.0 - 34.0 pg [facility] MCHC (RBC) [Mass/Vol] 33.5 g/dL 30.5 - 36.0 g/dL [facility] MCV (RBC) [Entitic vol] 79.2 fL Low 80.0 - 100.0 fL [facility] Monocytes (Bld) [#/Vol] 0.60 10*3/uL <0.87 k/uL [facility] Monocytes/100 WBC (Bld) 7.3 % [facility] Neutrophils (Bld) [#/Vol] 5.19 10*3/uL 1.45 - 7.50 k/uL [facility] Neutrophils/100 WBC (Bld) 63.4 % [facility] Nucleated RBC (Bld) [#/Vol] <0.01 k/uL [facility] Nucleated RBC/100 WBC (Bld) [Ratio] 0.0 /100 WBC [facility] Platelet mean volume (Bld) [Entitic vol] 12.2 fL 9.0 - 12.7 fL [facility] Platelets (Bld) [#/Vol] 218 10*3/uL 150 - 400 k/uL [facility] RBC (Bld) [#/Vol] 6.72 10*6/uL High 4.20 - 6.0 0 m/uL [facility] WBC (Bld) [#/Vol] 8.19 10*3/uL 3.70 - 11. 00 k/uL [facility] CNOVon 09-12-2023 CNOV Normal [facility] CRP SerPl-mCncon 09-12-2023 CRP [Mass/Vol] mg/L Normal <0.9 [facility] Comment on above: Order Comment: Speci men Type: BLOOD SPECIMEN Ordering Facility: [facility] Address: [address] [id number] Performed By: #### 1 988-5, 65808-4 #### [facility] CLIA [id number] [address] [place] [address] [facility] Comprehensive metabolic 2000 panelon 09-12-2023 Albumin [Mass/Vol] 5.0 g/dL High 3.9-4.9 [facility] Comment on above: Order Comment: Speci men Type: BLOOD SPECIMEN Ordering Facility: [facility] Address: [address] [id number] Performed By: #### 1 988-5, 45820-1 #### [facility] CLIA [id number] [address] [place] [address] [place] ALP [Catalytic activity/Vol] 124 U/L High 38-113 [facility] Comment on above: Order Comment: Speci men Type: BLOOD SPECIMEN Ordering Facility: [facility] Address: [address] [place] [address] Performed By: #### 1 988-5, 06175-4 #### [facility] CLIA [id number] [address] [place] [address] [place] ALT [Catalytic activity/Vol] 133 U/L High 10-54 [facility] Comment on above: Order Comment: Speci men Type: BLOOD SPECIMEN Ordering Facility: [facility] Address: [address] [place] [address] Performed By: #### 1 988-5, 30428-4 #### [facility] CLIA [id number] [address] [place] [address] [place] Anion gap [Moles/Vol] 13 mmol/L Normal 9-18 [facility] Comment on above: Order Comment: Speci men Type: BLOOD SPECIMEN Ordering Facility: [facility] Address: [address] [place] [address] Performed By: #### 1 988-5, #### [facility] CLIA [id number] [address] [place] [address] [place] AST [Catalytic activity/Vol] 78 U/L High 14-40 [facility] Comment on above: Order Comment: Speci men Type: BLOOD SPECIMEN Ordering Facility: [facility] Address: [address] [place] [address] Performed By: #### 1 988-5, #### [facility] CLIA [id number] [address] [place] [address] [place] Bilirubin [Mass/Vol] 0.5 mg/dL Normal 0.2-1.3 [facility] Comment on above: Order Comment: Speci men Type: BLOOD SPECIMEN Ordering Facility: [facility] Address: [address] [place] [address] Performed By: #### 1 988-5, #### [facility] CLIA [id number] [address] [place] [address] [place] Calcium [Mass/Vol] 9.6 mg/dL Normal 8.5-10.2 [facility] Comment on above: Order Comment: Speci men Type: BLOOD SPECIMEN Ordering Facility: [facility] Address: [address] [place] [address] Performed By: #### 1 988-5, #### [facility] CLIA [id number] [address] [place] [address] [place] Chloride [Moles/Vol] 102 mmol/L Normal 97-105 [facility] Comment on above: Order Comment: Speci men Type: BLOOD SPECIMEN Ordering Facility: [facility] Address: [address] [place] [address] Performed By: #### 1 988-5, 84687-9 #### [facility] CLIA [id number] [facility] [place] [address] [place] CO2 [Moles/Vol] 22 mmol/L Normal 22-30 [facility] Comment on above: Order Comment: Speci men Type: BLOOD SPECIMEN Ordering Facility: [facility] Address: [address] [place] [address] Performed By: #### 1 988-5, 24367-9 #### [facility] CLIA [id number] [facility] [place] [address] [place] Creatinine [Mass/Vol] 1.04 mg/dL Normal 0.73-1.22 [facility] Comment on above: Order Comment: Speci men Type: BLOOD SPECIMEN Ordering Facility: [facility] Address: [address] [place] [address] Performed By: #### 1 988-5, 07745-4 #### [facility] CLIA [id number] [facility] [place] [address] [place] Creatinine and Glomerular filtration rate.predicted panel (S/P/Bld) 98 mL/min/1.73m??? Normal >=60 [facility] Comment on above: Order Comment: Speci men Type: BLOOD SPECIMEN Ordering Facility: [facility] Address: [address] [place] [address] Result Comment: Faye mated Glomerular Filtration Rate [...] actual GFR. Performed By: #### 1 988-5, 38247-0 #### [facility] CLIA [id number] [facility] [place] [address] [place] Glucose [Mass/Vol] 106 mg/dL High 74-99 [facility] Comment on above: Order Comment: Speci men Type: BLOOD SPECIMEN Ordering Facility: [facility] Address: [address] [place] [address] Result Comment: The [place] [employer] (ADA) [...] 2016.39(Suppl 1). Performed By: #### 1 988-5, 60511-8 #### [facility] CLIA [id number] [address] [place] [address] [place] Potassium [Moles/Vol] 4.7 mmol/L Normal 3.7-5.1 [facility] Comment on above: Order Comment: Khushbu grajeda Type: BLOOD SPECIMEN Ordering Facility: [facility] Address: [address] [place] [address] Performed By: #### 1 988-5, 78059-8 #### [facility] CLIA [id number] [address] [place] [address] [place] Protein [Mass/Vol] 7.9 g/dL Normal 6.3-8.0 [facility] Comment on above: Order Comment: Khushbu grajeda Type: BLOOD SPECIMEN Ordering Facility: [facility] Address: [address] [place] [address] Performed By: #### 1 988-5, 03666-4 #### [facility] CLIA [id number] [address] [place] [address] [place] Sodium [Moles/Vol] 137 mmol/L Normal 136-144 [facility] Comment on above: Order Comment: Khushbu grajeda Type: BLOOD SPECIMEN Ordering Facility: [facility] Address: [address] [place] [address] Performed By: #### 1 988-5, 19800-7 #### [facility] CLIA [id number] [address] [place] [address] [place] Urea nitrogen [Mass/Vol] 11 mg/dL Normal 9-24 [facility] Comment on above: Order Comment: Speci men Type: BLOOD SPECIMEN Ordering Facility: [facility] Address: [address] [place] [address] Performed By: #### 1 988-5, 80482-7 #### [facility] CLIA [id number] [facility] [place] [address] [place] Albumin [Mass/Vol] 5.0 g/dL High 3.9 - 4.9 g/dL [facility] ALP [Catalytic activity/Vol] 124 U/L High 38 - 113 U/L [facility] ALT [Catalytic activity/Vol] 133 U/L High 10 - 54 U/L [facility] Anion gap [Moles/Vol] 13 mmol/L 9 - 18 mmol/L [facility] AST [Catalytic activity/Vol] 78 U/L High 14 - 40 U/L [facility] Bilirubin [Mass/Vol] 0.5 mg/dL 0.2 - 1.3 mg/dL [facility] Calcium [Mass/Vol] 9.6 mg/dL 8.5 - 10. 2 mg/dL [facility] Chloride [Moles/Vol] 102 mmol/L 97 - 105 mmol/L [facility] CO2 [Moles/Vol] 22 mmol/L 22 - 30 mmol/L [facility] Creatinine [Mass/Vol] 1.04 mg/dL 0.73 - 1.22 mg/dL [facility] Estimated Glomerular Filtration Rate 98 mL/min/1.73m >=60 mL/min/1.73m [facility] Glucose [Mass/Vol] 106 mg/dL High 74 - 99 mg/dL [facility] Potassium [Moles/Vol] 4.7 mmol/L 3.7 - 5.1 mmol/L [facility] Protein [Mass/Vol] 7.9 g/dL 6.3 - 8.0 g/dL [facility] Sodium [Moles/Vol] 137 mmol/L 136 - 144 mmol/L [facility] Urea nitrogen [Mass/Vol] 11 mg/dL 9 - 24 mg/dL [facility] ESR Westergren method (Bld) [Velocity]on 09-12-2023 ESR (Bld) [Velocity] 2 mm/h 0 - 15 mm/hr [facility] ESR (Bld) [Velocity] 2 mm/h Normal 0-15 [facility] Comment on above: Order Comment: Khushbu grajeda Type: BLOOD SPECIMEN Ordering Facility: [facility] Address: [address] [place] [address] Performed By: #### 4 537-7 #### [facility] CLIA [id number] [address] [place] [address] [place] HAV IgM Ser Qlon 09-12-2023 HAV IgM Ql (S) Negative Normal Negative [facility] Comment on above: Order Comment: Khushbu grajeda Type: BLOOD SPECIMEN Ordering Facility: [facility] Address: [address] [place] [address] Result Comment: No e vidence of recent infection with Hepatitis A virus. Performed By: #### 1 988-5, 27152-5 #### [facility] CLIA [id number] [facility] [place] [address] [place] HBV core IgM Ser Qlon 2022 HBV core IgM Ql (S) Negative Normal Negative [facility] Comment on above: Order Comment: Khushbu grajeda Type: BLOOD SPECIMEN Ordering Facility: [facility] Address: [address] [place] [address] Result Comment: No e vidence of recent infection with Hepatitis B virus. Should recent infection be suspected, repeat testing may be considered 3-4 weeks after this draw. Performed By: #### 2 2322-2, 65444-9, 5195-3, 76127-5 #### [facility] CLIA [id number] [address] [place] [address] [place] HBV surface Ab Ql (S)on 08-31 HBV surface Ab Qn (S) <8.00 Normal [facility] Comment on above: Order Comment: Khushbu grajeda Type: BLOOD SPECIMEN Ordering Facility: [facility] Address: [address] [place] [address] Result Comment: <8 m IU/mL: No serological evidence of immunity to Hepatitis B Virus. >/= 8 to <12 mIU/mL: No serological evidence of immunity to Hepatitis B Virus. >/= 12 mIU/mL: Consistent with serological evidence of immunity to Hepatitis B Virus. Performed By: #### 2 2322-2, 05972-9, 5195-3, 15650-4 #### [facility] CLIA [id number] [address] [place] [address] [place] HBV surface Ab Ser Qlon 08-31 HBV surface Ab Ql (S) Negative Normal [facility] Comment on above: Order Comment: Khushbu grajeda Type: BLOOD SPECIMEN Ordering Facility: [facility] Address: [address] [place] [address] Result Comment: No s erological evidence of immunity to Hepatitis B Virus. Performed By: #### 2 2322-2, 40458-0, 5195-3, 28750-4 #### [facility] CLIA [id number] [address] [place] [address] [place] HBV surface Ag Ser Qlon 08-31 HBV surface Ag Ql (S) Initially Reactive Abnormal Negative [facility] Comment on above: Order Comment: Khushbu grajeda Type: BLOOD SPECIMEN Ordering Facility: [facility] Address: [address] [place] [address] Result Comment: Plea se see HBsAg confirmatory assay result. Confirmatory testing for hepatitis B surface antigen has been ordered and charged. Performed By: #### 1 988-5, 01094-1 #### [facility] CLIA [id number] [address] [facility] [place] [address] [place] HBV surface Ag Ql (S) Positive Abnormal Negative, Test not Indicated [facility] Comment on above: Order Comment: Khushbu grajeda Type: BLOOD SPECIMEN Ordering Facility: [facility] Address: [address] [place] [address] Result Comment: The result is consistent with active Hepatitis B Virus Infection. HBsAg, however, may test positive up to few weeks after administration of Hepatitis Be vaccine. Clinical correlation is required. Performed By: #### 1 988-5, 22050-7 #### [facility] CLIA [id number] [address] [place] [address] [place] HCV Ab Ser Qlon 09-12-2023 HCV Ab Ql (S) Positive Abnormal Negative [facility] Comment on above: Order Comment: Speci men Type: BLOOD SPECIMEN Ordering Facility: [facility] Address: [address] [place] [address] Performed By: #### 1 6128-1, 60317-0 #### [facility] CLIA [id number] [address] [place] [address] [place] HCV RNA SerPl GERMÁN+probe-aCnc on 09-12-2023 HCV RNA GERMÁN+probe Qn Not detected Normal HCV RNA not detected by PCR. [facility] Comment on above: Order Comment: Speci men Type: BLOOD SPECIMEN Ordering Facility: [facility] Address: [address] [place] [address] Performed By: #### 1 1011-4 #### [facility] CLIA [id number] [address] [place] [address] [place] Performed By: #### 1 6128-1, 27694-9 #### [facility] CLIA [id number] [address] [place] [address] [place] HIV 1+2 Ab IA Qlon 3 HIV 1 and 2 Ab IA.rapid Nom Normal [facility] Comment on above: Order Comment: Speci men Type: BLOOD SPECIMEN Ordering Facility: [facility] Address: [address] [place] [address] Result Comment: Test not indicated. Performed By: #### 1 988-5, 78646-6 #### [facility] CLIA [id number] [address] [place] [address] [place] HIV 1+2 Ab+HIV1 p24 Ag IA Ql Non-Reactive Normal Nonreactive [facility] Comment on above: Order Comment: Speci men Type: BLOOD SPECIMEN Ordering Facility: [facility] Address: [address] [place] [address] Performed By: #### 1 988-5, 41071-7 #### [facility] CLIA [id number] [facility]. [address] [place] HIV immunoassay testing algorithm interpretation (S/P/Bld) [Interp] Normal [facility] Comment on above: Order Comment: Khushbu grajeda Type: BLOOD SPECIMEN Ordering Facility: [facility] Address: [address] [place] [address] Result Comment: No e vidence of HIV-1 or HIV-2 infection. Should recent infection be suspected, repeat testing may be considered 2-3 weeks after this draw. [place] Rev. Code 3701.243(E): This information has been [...] or diagnoses. Performed By: #### 1 988-5, 15575-7 #### [facility] CLIA [id number] [facility] [place] [address] [place] PT panel Coag (PPP)on 2022 INR Coag (PPP) [Relative time] 1.0 {INR} Normal 0.9-1.3 [facility] Comment on above: Order Comment: Khushbu [facility] Type: BLOOD SPECIMEN Ordering Facility: [facility] Address: [address] [place] [address] Result Comment: Salma min K Antagonist (VKA) [...] to 3.5 (target INR of 3). Harley WILCOX, et al. Chest 2012, 141:7S-47S Adriana SHIRLEY, et al. [facility] 2017, 70: 252-289 Performed By: #### 3 4528-0 #### [facility] CLIA [id number] [address] [facility] [place], [place] [id number] [place] [address] [place] [facility] PT Coag (PPP) [Time] 10.8 s Normal 9.7-13.0 [facility] Comment on above: Order Comment: Speci men Type: BLOOD SPECIMEN Ordering Facility: [facility] Address: [address] [place] [address] Performed By: #### 3 4528-0 #### [facility] CLIA [id number] [address] [facility] [place] [address] [place] INR Coag (PPP) [Relative time] 1.0 {INR} 0.9 - 1.3 [facility] PT Coag (PPP) [Time] 10.8 s 9.7 - 13.0 sec [facility] COVID CepheidOrdered By: Ania Shultz on 11-11-2022 SARS-CoV-2 (COVID-19) Ab IA Ql Positive Negative [facility] Comment on above: This is a duplicate CepBizilyid Xpert Xpress CoV-2/Flu/RSV Plus RNA by RT-PCR result to be used for statistical tracking purpose only. SARS-CoV-2 (COVID-19) RNA GERMÁN+probe Ql (Unsp spec) [facility] XR ANKLE RT MIN 3 VIEWSon XR [...] by: ADOLFO HAIDER Date: 2022-05-15 21:06 Normal [facility] Coding Summaryon 04-26-2022 Coding Summary HTMLBase 64 VtfryyulOWz9iRw+PGhlYWQ+PE1 TEROoM16ojKKlmL9GE1fVIA9RYR DBCTWJXQ5GZI4spML3APamI8Dck iAv BjfneFJzIE68BBg6IRV9mRiiGOt ujD4osNFzR8o6MiOdXB97hR17LC zpEGOmBlJ7ZfFvzpofbVOc P5jjRoCzsNUdJon+PHRhYmxlIHd cYUXoIWelMCNtAaMdzLvsFO8tCj 9yZGVyLWNvbGxhcHNlOiBj n0dtNRHmVJviRQ6dsRjnP9DtxDG 7PHHqs9j9Zb71xEN+LFKpSAD4xJ omXVoyp552EtSsm9qnDXJ0 xEDdWSmjQWP9C46yu8H5LKBoOLS aAQR0rSK8lF8iiYsalxiaF5XvgN VuLhT1MUP3dWJirS6rdFbn lmwohE6nIui+Y04ZJG3KMEECFJ6 CYmq3Y0LbMkuewBA+MF01YCUfKF 62aFUskVRux1qrbIx9IeCu JHGbCMN4mArhQJrwp5LpOPTrY03 qqMShl0N8OAOunWkdlGPiWjXvcJ B7nS4nGRkehcimz7lgsrny Ngech0bqyj74xJ17M32gIJgeWLC pIJM6ZWTqCSEotAtlyz6omW0qWy 8+LOmzk2eqg9xcyOs3PqRn MIQdxvSnvYogNAO9d5MnUt54B9O thSmrf1KwZjl2ch32rOAhz2V9tL G1JRgcVXEzwH1rIYedGhR9 CLIhSaVjqM59fQMbTTlvYw3ckJp haMkdAY6hZRHsfocvKRHuaJ3lUX KnvZTahTbzCV0tIZYuhptr m796WyUrAHE9VNUavJFpQ3UkfD8 nQgCpAGFrRXGyQ1EgyXNaLEfbX9 69VDlaWxE8WVSbvbHrC0Ya YRChoEkjUtM4d5G6Td6Cy7Elfbu rZEC4QEjzMML5JeX9EsFmYsC6S4 TeKja9YUFmyWksKO7rX5An HFAatfvbkpxlzWF3MMJzPVIccB0 8xYNhHKbyPq9og8S4r946PWJzLF WvjM07Ah2xxNrqMOHztMHM lC2dxhwze1ovjaxqVnMrJKJqWHi 0NMe5NNLufQwjAmQbNNT0CrP3PK J5aXDebC0nvMcgtpprmV1z Oyc+U42beZ5dFAU6LGM8npklVBS ibwDgYC45ZN32M6IjAbacoQZhxL U+MEWljeZbbPeyPR2qYyDq x8eqc4DdVQllD4WdFASmPIcbRgx 7AVVnTHD9tSC0pJ9oYGKpRWpdr6 T3eLF1O8EidcKvcr2ci7uc WQRaWYrbF98hrHKqs7M5ETBrxXS 1BKKepIvoAaCsiL07Umb+PGNvbG yzs7YjGmuao7igx1pawMk9 XdNaCHGatsVamKtnBLL7c5EtXz4 6W47qKBrjCZWfLWOnRHSoTGHxqY igrv6kuE5pOk7+PGNvbCB3 oVP0nB9lRMZdIfT5JOydC208NiO cbPJmItxmr8hrf1jnhSx4SdHoBN XxccGlgIkuWKM2h7GgEz05 C59zDKnhYPWdWACrBRMcFKClfKp kkq0aqW2cFm3+JT2ss2qjns13gA 48dHI+AJRpDQC6fPewIZun YGLmxN3pHQumNfQ9KJLaWuSbbB0 1iRSjZDgxEz9rxLjgyDopNG6dFS Icurcde910YvGtt6cqRNGq kNQsBDudIJT5B46gj3G4SSBsFYC lXHS3aBG8pR7wjUcyapljrXNevI jylbOxsIovDUvaRErrT854 IHRvcDsnPlBhdGllbnQgTmFtZTo 1F9XpAat2MXDuuQfzGG9xbKKxZB paKc0psTcuaQffPZ4fWCKx cdebz620AiQyp7ciEAKatYNkCKs eOQJ3D61sl5R9CIRcMHMlFUJ7vH L4rM9rvOekpvuexZJfcUeu ggRmoOklOIluVAmpR686GFDawKb iXqWedqCySPUvhKN3OL55BO28fR Khk3U9oNN6K3XqYMEphsnm xducgGM2ASWsBGGxmQ13Qf2txYv pLp6vQOUnCVF5HXEscSTjD7NkcT 3nUnRqNDIsVEEsZ7IzzWBy RKpjG728OWbnSlR8UHZvniCvH9A wWOSweDfgSoE2p3M1Fs5GG8N2PH 23UG85pJSvo7Y1wWH3Q4Wb OEUoklehaovueSJ5ZGIpVEWgjK0 7Fo3ioNsoGk6pLCVgEYB8BWCikP TeR5YizP9jLvDxOOVdFIBf A2DpjLKeAJaaE948FUuuNtD1TBI unfKqX0InAQXawVokZsO1t9G7Nb 1PNCn8PZ52KT26zVHbi6C3 dSF9X2YyTYSuyygtsfaoaUJ8TFU cGQOvtZ53Eo6snEquQb6sCYYmFH K5YFUsbTFlK4LmmB1jQcXo THFtQTZdE6VotDDdDKysQ666WSp lUcJ4UNTwwiWnK1KjQXOgaGytDk S2z8J7Bf6RXSTiPJ73ZXJ5 gAF5LZ34LD44I9MkGaskmSWpbGJ +PHRhYmxlIHdpZHRoPScxMDAlJy QsiUhjGG5nVm6wTMPsCTZh eYadcRNlJpTkx6hfYDCfNHptPW4 hcQbvZ2MvrTC1PXRut0n2Wl78T2 2aG3UiiWI+DXEawUJ5nYZ1 wS6sCpRzMkD3SGwrS011FaCvyNU zYgfww3fcc9nwfNy3ZbB7SDKxgw IdfOhaAUI3h7KqUd14F16w IHdpZHRoPSIxNSUiIHZhbGlnbj0 bqV8oIr0+DBYlwME9rHX6yV6lGu OyItW6XHtjO735XuYqfRDb Snonn5qnk1qisJe8SsQoZHFunzH tqMymAJK5d8XqTn62E5OqyLvli3 DiTry5my76vNKvg3O6nGW2 I9YfUMNrlycekVDazTxjRQ2nSVA pbycfDAGxgU8pBLDfU2j5VrOdEr M0CBmkW7GxbhO9WJKurWKb ZOchFVB7P27ra0K7KGNaVYLeVAI 1dGY0sR0lnRvbznssrSIdnOtdxw NqvTueDHvwQLrnQ956MOEk bVdwOWWpgA7wXNMxbIWycAmoHQ4 wNTBpbjsnPkhVQkVSLCBLWUxFIF GXT2y5U8QcTzk6PLCmvVqd HP7ivTKzXZtvOo9vnDicqNnjNJ5 pVJZeutkcNFLpgI3yFPPeqADbxP gzER2jKWNfsddaj819CvZm XTQ1GLNneJIzT9PtvR3vBuPvRKT pPGSfZ5MqaVDwUPmbB203TXgrMu D7ZAPhetUhY4GpOUHozCcw EkA0c7H9Jx9wKb0nJj9qCRclZP1 2EW89kJQiz0G7eHC8I5HtWUIlre mpbxsezKC4KQWdCQDyqM02 xNUoPEvnDd8pd6Q8c773CWUvEZI dmT80Bo9zxUglEZYjeIUCiS3vbp rlu6litgrsNcVhHRJmMOr7 BTn6JBJcfQclWsBrIGQ9PnI7XYM 9xFIkvQ1cmPuoklgrmF0qTas+Mz TzKGLebkT2U8EhXzt4GHIa mFvbRG0gcYTtIMrkGb2xuZaqwSb nSE7yICLrjjcoUMRvrL9aBRItpF NbcMdmRX9nBOAejftej484 AiIpOTW0LRLrhGNsG2DoaA9qUtB mGZQwEEEhR9WohJXoZOqrF640YU ssVqG5VMTplcRcI4UoXNUs qYiaMyJ1s7H3Fp2BHKcVAE68UI2 9pNIpv0N1jQR0W7AjUGFyqkjeaf thgQH8HYToEMKpuI22uMLg LHttKt7zl9J8w235CAYuWJSgjN2 8Ys1aoTccDFXdcQZJsM9mncdqx0 uanzxcMcZqNXImKUk8ZDg7 JDPdvHfwJgAkSKV9OaX0IOR0yMH zzO0hpJymunajhW2uRwj+T1A8L3 RkPjwvdHI+UT13RZVlJN23 tCMruXVba6ugeSh6AzGeMJTqZSP 5hNedFVfhd6HiZQOtP16olGGzl9 E2QDRtdHblhKVwLpCspUQ0 cR8pFGoduinsk1aiahkaApucj7c eoy35dA70S50gDKpmISMyQFLpKN BjLETxcYtale8njU3eVf2+ PKUlmML6oTN3dB7kNiQpWvA6QOs nJ854UlUlsRFaGucjq1ako5ltxD l2DgNeCIHoqdMuzKtwCAQ0 c4FqQa64E01pOGisKLKcPNYkTUT zXOTlmYibgw0qyH7dHb1+PC9jb2 ovnd46hP78mRX+PHRkIHN0 kQquRNzsGORhnB4tTCjgNcG2NSF vUpNrcS65oDJbCCmpNq2bcEzvnF pmRR2nZPBmtnsxr727CpTa e5dlUNSjwPIcTEwbBKL3X25yf5F 6IFLtCJFwACX2gRL1bU3vnOajba ogbGVmdDsgdmVydGljYWwt CTavB676WJPjdLgoLvBjvGVrD1j pdvCAXA0bDtstmMJ+AXHsSZJ4yW jkSKzzFQEdkQ6wIDWvS8z7 WgVeEcL0EPotJ0RxihP0LPDynIW eLWWfcDHCxO2obpovl6cvgxviLi FbZSPhACe6TBi4GMKydEnx XuMvQRT3DrI3UQN3nHWrvO6ppQk rwtjwzE9sVkw+RklOOjwvdGQ+PH ZuWRQ7kMjjTWnrKWEiuD8r GAJqK6l8OcLgCaT1EMpgS2NuoaO 7NVWxfJExDIRbwCMAcX0dlzqvx3 vijckpSqSeYJSdNIg3WWf7 TUFrfAehOuIpKJG2TmC1KJD4sVL wkD5soFmjrphxdC3aRlh+TVJOOj wvdGQ+RCLeUWH0fPviRMva ZHAugY0oWLZeS7o0PiSsUjB6MLc uK6XxfpJ2HEFaqEUtGRMmwHAFfM 7ncxanx4ydbgzoMqRoBBHo LIn7WKc0JJFnhBijJzUqMTH4KhU 0GCE3iIBwrJ5bvCylovcidV8aZf c+DOX3UIX9NS37VQ06I9Jr PjwvdGFibGU+PHRhYmxlIHdpZHR gDAdmXVNxEcYkzFbeZZ7xSl2lKE NqZFMgjOcpqYWhQwNat3dh YXB (more content not included)... [facility] Coding Summary HTMLBase 64 UqqlkeshWRq4eRq+PGhlYWQ+PE1 XJXChB29wbZGwqT0WL9cOTB0URA YEIAWOVI2EXS1azST8QAzrG9Pqx iAv DhvmyLYwSK88PFg8VZA4tUhtEPj baW1euAQbN0h7MsFjFN59sL14XU flBEXzJeJ9FbPmrmgvoWFt R2uiEuUpqSSoOwo+PHRhYmxlIHd pWJKpBVbcVUGmFuXcfFoxRC5eBj 9yZGVyLWNvbGxhcHNlOiBj s9fgRDUjVGwgQF6onCjaF0YhgLP 5VPYao3j3Pu12tAP+SZRuBGH3jX ddZNmrc905EeFkq9uqTTV7 kZPeKYlhOBU7J29gi0W7GSJmASH tPMH4fLB8eE9efRrwymzdG0EhfK WdEcE0YTW6bURbpR0nqYuo ywtqfQ1sZph+V01BTR3KCDSGRE8 DMys2B5AzNequeYT+RA05EXWcIM 70zKMmmRWpd5yriWa5SkFo QJUtGCS0cMfqNBvbn4EvYNXwJ81 mnNNsn9W7IQQmkDfqcQQiVjXyrV Y0tJ9rXApvbajjr8lqhysx Ogagc9bqey83hO16T41mPXnbDJL nVVE2FUXxMHGbwUjvjp5iuX3zAu 8+MJafq3ggy5rvnBu2YcTa OIJnvfOtqWmlLMR0e4DeCl71L0T qbLjpj9CbQhh1bf10jAVtq7H1zW N7COeaFZRloG0rDVflImO8 MPZePgRwgL75wUJsIRvyKa9fkBy cvImxUZ6uTRTzayjcFOFlzJ3bDZ FeiOPsbRazBY6fOGFfshxq j691TsVbZAA9JFSggOLmJ1RmyC3 lVqOoILChNRKxU6AioQJsOQmrZ8 95JJnzTgB8CPXlbhXwZ8Lc TRZrkXtcOsU7c2V2Xs4Ct8Svwcw wAOP5ARyrJWQ2RaZ8HhGjNyC1O2 LgGzj9XLQvcVfgSD6iJ0Cq KAWfblamxkynbPZ9UWVmXTNhrR3 5pRLnRZahZm3fn7R7x451SAGbMN NarO96Io5qrIofCILfyVAD oA1eujfuv4tquipqScGcXPQkNHn 7ZJn4WIChnQrkIsXmRIA0BrB9TS O2uWFhhL7cfFpteuxmgA5p Oyc+M36hkW6aFDJ1SNR3avkyMTU ykjHuSR74ZB10Q4InFgrsgJLesY U+NJYhxmYtzYwvBR1hQuXj t0lmx0LfNQbzC9HdRFKrXHltZpm 9EEAhYTB7wDV1qG6uBGRtLYpbr7 R9hFY6Z4QzsgUxsg9rz9jg ETTlULzpW54tbTKgs4Q1DQUucRJ 2ZMVsqVvrVuNwhR40Mby+PGNvbG ghx2YqEmmhr1ewy6xtpFn7 FwLeWUSludSmvFnfKZQ6s8VaOs6 0V57pZDwcBMDzQWXdMOGrIXStcV fmtd8fxY4oZw5+PGNvbCB3 pHY8uD9aVJXdYgT8OBghK145WyT atGKaQuuwu8wgu4bmxZo3KqNtAQ RxvoFndMxyZVM2l5BmPf93 Z37cXXwdKXFmWUPvUKHaXGRihKx zhu9yfR2mBo5+NB3sq7cvpa21xH 48dHI+XVBpNQF2rTsrXYmq IVVklA2rTBthWvH8OZFoWbWklC1 2qPXzKBtzDs1jqKdeeUbhVL2vFQ Uebwkui971HuVbo0ftKYNe dOKeIVzgFWL5T00ud3F6ZFSxMQZ aQGP0rMQ3eV4gnJausiqceXUrfN sorhMjtZniSFqlQMbtV409 IHRvcDsnPlBhdGllbnQgTmFtZTo 8R1GtRbo8HUWhtZkyTM5klLDwCG ufOz7luEgiwJkcSX1jMNLi cgjdf058EsQba8iaOZTumPIwORd jLEU3C99py8P4ONNiWYYrJCK2cO L9yB9hhFtzxdvkrFHmzGcp rbLdtJytYYogDUguE963FDSzgOz kSwAtuaZuKDEgoPH7TV85WS41iR Rgd8Z1oRL6S3OyDAJymgzh pafutFD5SOUcHTIjoL31Gq9fhLz zCl9jENNgYMR5NXLebVRlS2JqvS 3fBlOsSQVoTFXfL7XtqBYi ZKjvA634KLwoVkE9XMEejwQhP3I nQXSfnTtqLrV7c8H8To0SG7S6ZZ 99XM45lMFrf2C6vLW0W0Ho XPCitehbvurllBC4DWWpHABkuU4 6Gp6ipXjqHz7hGYVlBTU9FWMbzV DwJ9JgwS5rMvPaLXFkRJZd F0UcaFQnVUghN914GXydAbH0VSF atxYsS6XfHZCizYopOdS1y0H3In 4HQHz7ZB72EY55uXNde3G0 vWJ7X1ItRTIfmsoxbqunpIC6MZO oJQLaeG33Xm3neYbrCk9nZWZsEX N9XYCqtIQkZ4IqoP1uCtJn EWWiSZHbY3MhfGCiKVldM091SLp zLaH1QTQuolDfS1ErCLMqdJgtAb A0d2E1Bw9SBPVsAJ53NJW4 gRB1HI83SK32F9BuDlkruSBnmUL +PHRhYmxlIHdpZHRoPScxMDAlJy UmmVkhOA8oMs8vMFMdILUd kFwbzYByGvHam3akJLMxTKueME3 cpLagS5EqzRK4KCOly7p9Lb08R9 2fZ1ZzlOQ+DNUpdWM9aAZ7 mX9gWrToOvM5WNaaH282ZgIlqEJ xIykdt3upl0fjyUq3SsH9WLNvca KziVuwOAI5j0XgEq68P18s IHdpZHRoPSIxNSUiIHZhbGlnbj0 tsC7rLm6+EYAzrPP1dHQ0wS2nZw RpPuX0BKheV366BiFssZIv Pbenj4com3dfzTo5AqNdOUGltaJ lfFbbMRK3y5AiSz74F1QqiOqgz7 DwRyc8nc58uILup1W8mIA0 R9VpIMXptpbdhYCnnJfxPQ9uPFX pglmjFPJygN7uDGIvR5z1FfLpRj S3JVbpC7LgxsY1ANRimDDi DXnpOSQ7M06ad5T4WZFyXARnQGM 9tEX0dD3vgCaxzqagwALvdTcpsw PelXrqDInuJSwqY020AYLi jCaqNDWgoI3fHGZkoJBglQboMR9 wNTBpbjsnPkhVQkVSLCBLWUxFIF MLF4u6W8IyBls1ROVkgNwc FW3wyDBnRKdcQy6vsVjbpNyoNL7 tRCQgymzoUAOsmB3oEZIuzGSiiC uyVJ7mTQTuqwlsl081ObZv RWK3FBJyaMIzA7YmzR1gDiZtYFX iXGLdC0LuhTTlOIszE397RCznUp X1STVvgyNiL8JzIBWwuUca SxR1j3N1Pp3jHx9eKk2hKBinNY2 7ZX18sEYrp9A7iWO3P8HgGEUbby metsgjvKT2IREnNBSasJ96 jGWsDZpqXl3nu5X4h914MCOpPUA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 erythrocytes/100 erythrocytes 0.0 % Invalid Interpretation Code [facility] Platelet mean volume (PMV) 10.9 fL Invalid Interpretation Code 9 - 15.5 fL [facility] Platelets 199 K/mcL Invalid Interpretation Code 150 - 400 [facility] RDW-CA 15.1 % High 11.6 - 14.8 % [facility] WBC (Leukocytes) 7.41 K/mcL Invalid Interpretation Code 4.50 - 11.00 [facility] CBC w/ Diffon 11-21-2017 Creatinine The following orders were created for panel order CBC w/ Diff. Procedure Abnormality Status --------- ------ CBC Auto Differential[[id number]] Abnormal Final result Please view results for these tests on the individual orders. Invalid Interpretation Code [facility] Work Phone: CMPon 11-21-2017 Alanine aminotransferase (ALT) 19 U/L Invalid Interpretation Code 0 - 40 U/L [facility] Albumin 4.4 g/dL Invalid Interpretation Code 3.2 - 5.2 g/dL [facility] Alkaline phosphatase (ALP) 84 U/L Invalid Interpretation Code 40 - 140 U/L [facility] Anion gap 16 mmol/L Invalid Interpretation Code 10 - 20 mmol/L [facility] Aspartate aminotransferase (AST) 23 U/L Invalid Interpretation Code 0 - 45 U/L [facility] Bicarbonate (HCO3) 24 mmol/L Invalid Interpretation Code 21 - 32 mmol/L [facility] Bilirubin (total) 0.8 mg/dL Invalid Interpretation Code 0 - 1.3 mg/dL [facility] BUN/Creatinine Ratio 14.6 mg/mg Invalid Interpretation Code 10.0 - 20.0 [facility] Calcium 9.2 mg/dL Invalid Interpretation Code 8.4 - 10.2 mg/dL [facility] Chloride 99 mmol/L Invalid Interpretation Code 98 - 108 mmol/L [facility] Creatinine 0.89 mg/dL Invalid Interpretation Code 0.5 - 1.3 mg/dL [facility] eGFR (non-black) 118 mL/min/{1.73_m2} Invalid Interpretation Code >=60 [facility] eGFR (non-black) The eGFR should be u sed for monitoring renal function only and not for medication dosing. Invalid Interpretation Code [facility] Glucose 96 mg/dL Invalid Interpretation Code 65 - 99 mg/dL [facility] Potassium 3.5 mmol/L Invalid Interpretation Code 3.5 - 5.1 mmol/L [facility] Protein 7.5 g/dL Invalid Interpretation Code 6 - 8 g/dL [facility] Sodium 135 mmol/L Invalid Interpretation Code 135 - 145 mmol/L [facility] Urea nitrogen 13 mg/dL Invalid Interpretation Code 8 - 25 mg/dL [facility] Rowe Topon 11-21-2017 Extra Tube Hold for add-ons. Invalid Interpretation Code [facility] [place] Draw[place] 11-21-2017 Creatinine The following orders were created for panel order [place] Draw. Procedure Abnormality Status --------- ------ Lavender Top[[id number]] Final result Mint Green Top[[id number]] Final result Gold Top[[id number]] Final result Light Blue Top[[id number]] Final result Rowe Top[[id number]] Final result Please view results for these tests on the individual orders. Invalid Interpretation Code [facility] Work Phone: XR Foot Right 3+ Views (Linden bernal)on 11-21-2017 XR Foot Right 3+ Views (Standard) Interface, [facility] 11/21/2017 7:58 AM EST EXAMINATION: 3 VIEWS [...] abnormality. Workstation ID: [id number] Invalid Interpretation Code [employer] [facility] XR Foot Right 3+ Views (Standard) [...] focal soft tissue abnormality. Invalid Interpretation Code [employer] XR Foot Right 3+ Views (Standard) No acute osseous abnormality. Workstation ID: [id number] Invalid Interpretation Code [employer] No Panel Information [facility] Vital Signs Date Time Vital Sign Value Performing Clinician Facility 07-19-2024 09:50-0400 Body height 188 cm Adolfo Ballard MD Work Phone: [facility] 07-19-2024 09:50-0400 Body mass index (BMI) [Ratio] 34.02 kg/m2 Adolfo Ballard MD Work Phone: [facility] 07-19-2024 09:50-0400 Body temperature 96.91 [degF] Adolfo Ballard MD Work Phone: [facility] 07-19-2024 09:50-0400 Body weight 120.2 kg Adolfo Ballard MD Work Phone: [facility] 07-19-2024 09:50-0400 Diastolic blood pressure 91 mm[Hg] Adolfo Ballard MD Work Phone: [facility] 07-19-2024 09:50-0400 Heart rate 96 /min Adolfo Ballard MD Work Phone: [facility] 07-19-2024 09:50-0400 Respiratory rate 12 /min Adolfo Ballard MD Work Phone: [facility] 07-19-2024 09:50-0400 Systolic blood pressure 150 mm[Hg] Adolfo Ballard MD Work Phone: [facility] 07-19-2024 07:53-0400 Diastolic blood pressure 94 mm[Hg] Charleen Silver MD Work Phone: [facility] 07-19-2024 07:53-0400 Heart rate 89 /min Charleen Silver MD Work Phone: [facility] 07-19-2024 07:53-0400 Respiratory rate 18 /min Charleen Silver MD Work Phone: [facility] 07-19-2024 07:53-0400 Systolic blood pressure 147 mm[Hg] Charleen Silver MD Work Phone: [facility] 06-29-2024 11:43-0400 Body height 189.2 cm Pacc 3 Work Phone: [facility] 06-29-2024 11:43-0400 Body mass index (BMI) [Ratio] 36.14 kg/m2 Pacc 3 Work Phone: [facility] 06-29-2024 11:43-0400 Body temperature 98.01 [degF] Pacc 3 Work Phone: [facility] 06-29-2024 11:43-0400 Body weight 129.4 kg Pacc 3 Work Phone: [facility] 06-29-2024 11:43-0400 Diastolic blood pressure 84 mm[Hg] Pacc 3 Work Phone: [facility] Comment on above: MAP: 97 06-29-2024 11:43-0400 Heart rate 96 /min Pacc 3 Work Phone: [facility] 06-29-2024 11:43-0400 Respiratory rate 17 /min Pacc 3 Work Phone: [facility] 06-29-2024 11:43-0400 SaO2% (BldA) [Mass fraction] 97 % Pacc 3 Work Phone: [facility] 06-29-2024 11:43-0400 Systolic blood pressure 124 mm[Hg] Pacc 3 Work Phone: [facility] Comment on above: MAP: 97 05-28-2024 08:44-0400 Body height 188 cm Jayleen Becker MD Work Phone: [facility] 05-28-2024 08:44-0400 Body mass index (BMI) [Ratio] 36.59 kg/m2 Jayleen Becker MD Work Phone: [facility] 05-28-2024 08:44-0400 Body temperature 98.4 [degF] Jayleen Becker MD Work Phone: [facility] 05-28-2024 08:44-0400 Body weight 129.28 kg Jayleen Becker MD Work Phone: [facility] 05-28-2024 08:44-0400 Diastolic blood pressure 91 mm[Hg] Jayleen Becker MD Work Phone: [facility] 05-28-2024 08:44-0400 Heart rate 89 /min Jayleen Becker MD Work Phone: [facility] 05-28-2024 08:44-0400 Systolic blood pressure 138 mm[Hg] Jayleen Becker MD Work Phone: [facility] 05-21-2024 14:24-0400 Diastolic blood pressure 100 mm[Hg] Ct [facility] 05-21-2024 14:24-0400 Heart rate 70 /min Ct [facility] 05-21-2024 14:24-0400 Respiratory rate 16 /min Ct [facility] 05-21-2024 14:24-0400 SaO2% (BldA) [Mass fraction] 100 % Ct [facility] 05-21-2024 14:24-0400 Systolic blood pressure 152 mm[Hg] Ct [facility] 05-14-2024 11:20-0400 Body height 185.4 cm Reyna Anton APRN.AIRCRAFT ENGINE [employer] Work Phone: [facility] 05-14-2024 11:20-0400 Body mass index (BMI) [Ratio] 36.85 kg/m2 Reyna Anton COMMERCIAL REAL ESTATE AGENT.AIRCRAFT ENGINE [employer]LINDER MECHANIC Work Phone: [facility] 05-14-2024 11:20-0400 Body temperature 97.81 [degF] Reyna Anton COMMERCIAL REAL ESTATE AGENT.AIRCRAFT ENGINE CYLINDER MECHANIC Work Phone: [facility] 05-14-2024 11:20-0400 Body weight 126.7 kg Reyna Anton COMMERCIAL REAL ESTATE AGENT.AIRCRAFT ENGINE CYLINDER MECHANIC Work Phone: [facility] 05-14-2024 11:20-0400 Diastolic blood pressure 84 mm[Hg] Reyna Erich COMMERCIAL REAL ESTATE AGENT.AIRCRAFT ENGINE CYLINDER MECHANIC Work Phone: [facility] 05-14-2024 11:20-0400 Heart rate 74 /min Reyna Erich COMMERCIAL REAL ESTATE AGENT.AIRCRAFT ENGINE CYLINDER MECHANIC Work Phone: [facility] 05-14-2024 11:20-0400 SaO2% (BldA) [Mass fraction] 97 % Reyna Erich COMMERCIAL REAL ESTATE AGENT.AIRCRAFT ENGINE CYLINDER MECHANIC Work Phone: [facility] 05-14-2024 11:20-0400 Systolic blood pressure 130 mm[Hg] Reyna Erich COMMERCIAL REAL ESTATE AGENT.AIRCRAFT ENGINE CYLINDER MECHANIC Work Phone: [facility] 09-17-2023 09:35-0400 Body height 189.2 cm Reyna Erich COMMERCIAL REAL ESTATE AGENT.AIRCRAFT ENGINE CYLINDER MECHANIC Work Phone: [facility] 09-17-2023 09:35-0400 Body temperature 97.7 [degF] Reyna Erich COMMERCIAL REAL ESTATE AGENT.AIRCRAFT ENGINE CYLINDER MECHANIC Work Phone: [facility] 09-17-2023 09:35-0400 Body weight 112.04 kg Reyna Erich COMMERCIAL REAL ESTATE AGENT.AIRCRAFT ENGINE CYLINDER MECHANIC Work Phone: [facility] 09-17-2023 09:35-0400 Diastolic blood pressure 84 mm[Hg] Reyna Erich COMMERCIAL REAL ESTATE AGENT.AIRCRAFT ENGINE CYLINDER MECHANIC Work Phone: [facility] 09-17-2023 09:35-0400 Heart rate 79 /min Reyna Erich COMMERCIAL REAL ESTATE AGENT.AIRCRAFT ENGINE CYLINDER MECHANIC Work Phone: [facility] 09-17-2023 09:35-0400 SaO2% (BldA) [Mass fraction] 96 % Reyna Erich COMMERCIAL REAL ESTATE AGENT.AIRCRAFT ENGINE CYLINDER MECHANIC Work Phone: [facility] 09-17-2023 09:35-0400 Systolic blood pressure 136 mm[Hg] Reyna Erich COMMERCIAL REAL ESTATE AGENT.AIRCRAFT ENGINE CYLINDER MECHANIC Work Phone: [facility] 09-12-2023 10:02-0400 Body weight 111.13 kg Piter Meneses DO Work Phone: [facility] 09-12-2023 10:02-0400 Diastolic blood pressure 82 mm[Hg] Piter Matzke DO Work Phone: [facility] 09-12-2023 10:02-0400 Heart rate 87 /min Piter Matzke DO Work Phone: [facility] 09-12-2023 10:02-0400 Systolic blood pressure 150 mm[Hg] Piter Matzke DO Work Phone: [facility] 11-11-2022 11:58-0500 Body height 187.96 cm MD Chetan Dan ([facility]) Work Phone: [facility] 11-11-2022 11:58-0500 Body temperature 98.4 [degF] MD Chetan Dan ([facility]) Work Phone: [facility] 11-11-2022 11:58-0500 Body weight 101.05 kg MD Chetan Dan ([facility]) Work Phone: [facility] 11-11-2022 11:58-0500 Diastolic blood pressure 70 mm[Hg] MD Chetan Dan ([facility]) Work Phone: [facility] 11-11-2022 11:58-0500 Heart rate 100 /min MD Chetan Dan ([facility]) Work Phone: [facility] 11-11-2022 11:58-0500 Respiratory rate 14 /min MD Chetan Dan ([facility]) Work Phone: [facility] 11-11-2022 11:58-0500 SaO2% (BldA) [Mass fraction] 96 % MD Chetan Dan ([facility]) Work Phone: [facility] 11-11-2022 11:58-0500 Systolic blood pressure 139 mm[Hg] MD Chetan Dan ([facility]) Work Phone: [facility] 01-10-2022 12:00-0500 Body height 186.69 cm Cruz Tesfaye Other [facility] Other 01-10-2022 12:00-0500 Body mass index (BMI) [Ratio] 26.16 kg/m2 Cruz Olexa Other [facility] Other 01-10-2022 12:00-0500 Body weight 91.17 kg Cruz Olexa Other [facility] Other 09-13-2021 12:15-0400 Body height 186.69 cm Cruz Olexa Other [facility] Other 09-13-2021 12:15-0400 Body mass index (BMI) [Ratio] 25.9 kg/m2 Cruz Olexa Other [facility] Other 09-13-2021 12:15-0400 Body weight 90.27 kg Cruz Olexa Other [facility] Other 2018 14:41-0400 BMI (Body Mass Index) 24.78 kg/m2 [facility] 2018 14:41-0400 Body Temperature 97.3 [degF] [facility] 2018 14:41-0400 BP Diastolic 82 mm[Hg] [facility] 2018 14:41-0400 BP Systolic 138 mm[Hg] [facility] 2018 14:41-0400 Height 188 cm [facility] 2018 14:41-0400 Pulse (Heart Rate) 99 /min [facility] 2018 14:41-0400 Pulse Oximetry 98 % [facility] 2018 14:41-0400 Respiratory Rate 16 /min [facility] 2018 14:41-0400 Weight 87.54 kg [facility] 11-21-2017 08:23-0500 BP Diastolic 92 mm[Hg] Paulo Rodriguez [facility] Work Phone: 11-21-2017 08:23-0500 BP Systolic 134 mm[Hg] Paulo Rodriguez [facility] Work Phone: 11-21-2017 08:23-0500 Pulse (Heart Rate) 99 /min Paulo Rodriguez [facility] Work Phone: 11-21-2017 08:23-0500 Pulse Oximetry 99 % Paulo Rodriguez [facility] Work Phone: 11-21-2017 08:23-0500 Respiratory Rate 16 /min Paulo Rodriguez [facility] Work Phone: 11-21-2017 06:18-0500 BMI (Body Mass Index) 21.83 kg/m2 Paulo Rodriguez [facility] Work Phone: 11-21-2017 06:18-0500 Body Temperature 97.5 [degF] Paulo Rodriguez [facility] Work Phone: 11-21-2017 06:18-0500 Height 188 cm Paulo Rodriguez [facility] Work Phone: 11-21-2017 06:18-0500 Weight 77.11 kg Paulo Rodriguez [facility] Work Phone: Encounters Encounter Date Encounter Type Care Provider Facility Start: 08-12-2024 End: 08-13-2024 Telephone encounter Adolfo Ballard MD Work Phone: General Surgery Start: 07-21-2024 End: 07-21-2024 ambulatory Charleen Silver MD Work Phone: Pain Management Comment on above: Hello as you say we don't speak in the same language. Start: 07-19-2024 End: 07-19-2024 ambulatory ADOLFO BALLARD Facility:[facility] Start: 07-19-2024 End: 07-19-2024 Patient encounter procedure Charleen Silver MD Work Phone: Pain Management Comment on above: Benzodiazepine depen dence (HCC) (Primary Dx); Anxiety; Opioid dependence with withdrawal (HCC); Generalized abdominal pain Incisional hernia, w ithout obstruction or gangrene (Primary Dx); Post-operative pain Start: 07-19-2024 End: 07-19-2024 ambulatory CHARLEEN GANICOLAS Facility:[facility] Start: 07-15-2024 Refill Adolfo Galvan Work Phone: General Surgery Start: 07-12-2024 Telephone encounter Adolfo hines MD Work Phone: General Surgery Start: 07-11-2024 ambulatory Katherine Martel RN [facility] [employer] PREPARATION ASSISTANT Comment on above: Blood In Urine Encounter for medica l assessment (Primary Dx) Start: 07-11-2024 Patient encounter status Antoni Kong MD Work Phone: [facility] Work Phone: Start: 07-11-2024 Telemedicine consultation with patient Antoni Kong MD Work Phone: Virtual Medicine Start: 06-30-2024 End: 07-08-2024 Evaluation and management of inpatient ADOLFO BALLARD Facility:[facility] Start: 06-29-2024 End: 06-29-2024 [place]mission to [place] [id number] Work Phone: Pre Anesthesia Start: 06-29-2024 End: 06-29-2024 ambulatory RENEE PEARCE Facility:[facility] Start: 06-29-2024 End: 06-29-2024 Anesthesia consultation [facility] Work Phone: Pre Anesthesia Comment on above: Pre-op evaluation (P rimary Dx); Preoperative examination; Ventral hernia without obstruction or gangrene; Gastroesophageal reflux disease without esophagitis; Opioid dependence in remission (HCC); Obesity, Class II, BMI 35-39.9; S/P colectomy; Chronic hepatitis C without hepatic coma (HCC); Nicotine abuse; ETOH abuse Start: 06-29-2024 Encounter for other preprocedural examination WIL GOETZ [facility] Start: 06-29-2024 End: 06-29-2024 Preprocedural examination done [facility] Work Phone: [facility] Work Phone: Start: 06-08-2024 End: 06-08-2024 ambulatory Rusty Lopez MD Work Phone: Gastroenterology Comment on above: Crohn's disease of s mall and large intestines with complication (HCC) (Primary Dx) Start: 06-08-2024 End: 06-08-2024 Telemedicine consultation with patient Rsuty Lopez MD Work Phone: Gastroenterology Start: 05-31-2024 ambulatory Adolfo Galvan Work Phone: [facility] Comment on above: 06.30.24 Cure (Open VHR 3 hours los 2) Start: 05-31-2024 Preprocedural examination done Adolfo Ballard MD Work Phone: [facility] Start: 05-28-2024 End: 05-28-2024 Patient encounter procedure Adolfo Ballard MD Work Phone: General Surgery Comment on above: Incisional hernia, w ithout obstruction or gangrene (Primary Dx); Obesity, Class II, BMI 35-39.9 Start: 05-28-2024 End: 05-28-2024 ambulatory [facility] Facility:[facility] Start: 05-28-2024 End: 05-28-2024 ambulatory JAYLEEN BECKER Facility:[facility] Start: 05-28-2024 End: 05-28-2024 Patient encounter procedure Jayleen Becker MD Work Phone: General Surgery Comment on above: Hernia Start: 05-21-2024 End: 05-21-2024 ambulatory [facility] Facility:[facility] Start: 05-21-2024 End: 05-21-2024 Subsequent hospital visit by physician [facility] Radiology Ct Scan Comment on above: Crohn's disease of s mall and large intestines with complication (HCC) [K50.819] Post-operative pain (Primary Dx) Start: 05-21-2024 End: 05-21-2024 ambulatory [facility] Facility:[facility] Start: 05-14-2024 End: 05-14-2024 Patient encounter procedure Rusty Lopez MD Work Phone: Gastroenterology Comment on above: Crohn's disease of s mall and large intestines with complication (HCC) (Primary Dx) Fatty liver (Primary Dx); Elevated liver enzymes; Hernia Start: 05-14-2024 End: 05-14-[address] [facility] Facility:[facility] Start: 05-10-2024 Telephone encounter Rusty pickard MD Work Phone: Gastroenterology Comment on above: Orders; Care Coordin ator - Other Start: 01-22-2024 End: 01-22-2024 Emergency department patient visit Chetan Dan ([facility]) Facility:[facility] Start: 01-22-2024 End: 01-22-2024 Emergency department patient visit MD Chetan Dan ([facility]) Work Phone: [facility] Work Phone: Start: 09-29-2023 End: 09-29-2023 ambulatory Rusty Lopez MD Work Phone: Gastroenterology Comment on above: Crohn's disease of s mall and large intestines with complication (HCC) (Primary Dx) Start: 09-29-2023 End: 09-29-2023 Telemedicine consultation with patient Rusty Lopez MD Work Phone: [facility] Start: 09-17-2023 End: 09-17-2023 ambulatory [facility] Gastroenterology Start: 09-17-2023 End: 09-17-2023 Patient encounter procedure Hepatology Procedures A5 Work Phone: [facility] Comment on above: Elevated liver enzym es (Primary Dx); Chronic hepatitis C without hepatic coma (HCC); Crohn's disease of small intestine with other complication (HCC) Start: 09-15-2023 Telephone encounter Piter negrete DO Work Phone: Internal Medicine Start: 09-12-2023 End: 09-13-2023 ambulatory PITER MENESES Facility:[facility] Start: 09-12-2023 End: 09-12-2023 Office outpatient new 20 minutes Piter Meneses DO Work Phone: Internal Medicine Comment on above: Crohn's disease of s mall intestine with other complication (HCC) (Primary Dx); Chronic hepatitis C without hepatic coma (HCC) Start: 11-11-2022 End: 11-11-2022 Emergency department patient visit MD Chetan Dan ([facility]) Work Phone: [facility] Start: 11-01-2022 End: 11-01-[address] DOCTOR MONET Facility:[facility] Start: 07-23-2022 End: 07-23-[address] DOCTOR MONET Facility:[facility] Start: 05-15-2022 End: 05-15-[address] DOCTOR MONET Facility:[facility] Start: 04-30-2022 Orders Only Fernie Hollingsworth DO Work Phone: Orthopaedics Comment on above: Hand injury, right, initial encounter (Primary Dx) Start: 02-07-2022 End: 02-07-2022 ambulatory Cruz Olexa Other [facility] Other Start: 02-07-2022 Postop follow up vis it related to original px Cruz Olexa [facility] Start: 01-10-2022 End: 01-10-2022 ambulatory Cruz Olexa Other [facility] Other Start: 01-10-2022 Postop follow up vis it related to original px Cruz Olexa [facility] Start: 12-31-2021 End: 12-31-2021 ambulatory Cruz Olexa Other [facility] Other Start: 12-31-2021 Telephone encounter Cruz Olexa [facility] Start: 12-18-2021 End: 12-18-2021 ambulatory Cruz Olexa Other [facility] Other Start: 12-18-2021 Telephone encounter Cruz Olexa [facility] Start: 12-12-2021 End: 12-12-[address] DOCTOR MONET Facility:[facility] Start: 09-13-2021 Office outpatient ne w 45 minutes [facility] Start: 05-17-2018 End: 05-17-2018 Emergency department patient visit EMERGENCY PHYSICIAN Facility:[facility] Start: 2018 End: 2018 Patient encounter procedure [facility]YSIC[facility] Start: 2018 End: 2018 Office/outpatient visit, [facility], level 3 Adolfo Puente Work Phone: [facility] Start: 11-21-2017 End: 11-21-2017 Emergency department patient visit PAULO [facility] Start: 11-21-2017 End: 11-21-2017 Emergency department patient visit Paulo Ayoubriel Work Phone: [facility] Emergency Department Procedures Date Procedure Procedure Detail Performing Clinician Start: 06-29-2024 Antibody screen MAX PAV LOCK Comment on above: Order Comment: Speci men Type: BLOOD SPECIMENOrdering Facility: [facility] Address: [address] [place] [address] Performed By: #### T [id number] ####CC MAIN BLOOD BANKCLIA [id number] [place] Start: 06-29-2024 Ecg routine ecg w/le ast 12 lds i&r only [facility] Provider Start: 05-21-2024 Ct abdomen & pelvis w/contrast material Rusty Lopez MD Work Phone: Start: 09-17-2023 Liver elastography w /o imag w/i&r Reyna Anton COMMERCIAL REAL ESTATE AGENT.AIRCRAFT ENGINE [employer] Work Phone: Start: 09-17-2023 Liver elastography w /o imag w/i&r Reyna Anton COMMERCIAL REAL ESTATE AGENT.AIRCRAFT ENGINE [employer]ER MECHANIC Work Phone: Start: 03-21-2010 H/O: ileostomy S/P ileostomy Fernie Hollingsworth DO Work Phone: SARS-CoV-2, Influenz a & RSV (PCR) MD Chetan Dan ([facility]) Work Phone: Plan of Treatment Date Care Activity Detail Author Start: 2051 Hepatitis B Vaccine (1 of 3 - Risk 3-dose series) Hepatitis B Vaccine (1 of 3 - Risk 3-dose series) [facility] Start: 11-15-2024 End: 11-15-2024 Patient encounter procedure 11/15/2024 9:00 AM EST Office Visit Gastroenterology [address] [address] Reyna Anton APRN.AIRCRAFT ENGINE [employer]CHANIC [address] [place] [address] Chronic Hep C Gastroenterology Comment on above: Chronic Hep C Start: 11-15-2024 End: 11-15-2024 ambulatory 11/15/2024 8:40 AM EST Procedure Gastroenterology [address] [address] Elevated liver enzymes [R74.8] Gastroenterology Comment on above: Elevated liver enzymes [R74.8] Start: 08-17-2024 End: 08-17-2024 Follow-up encounter 08/17/2024 4:30 PM EDT [facility] Gastroenterology [address] [address] Rusty Lopez MD [address] [place] [address] Follow up Gastroenterology Comment on above: Follow up Start: 08-01-2024 Covid-19 Vaccine ( season) Covid-19 Vaccine ( season) [facility] Start: 08-01-2024 Influenza vaccination [facility] Start: 07-19-2024 End: 07-19-2024 Patient encounter procedure 07/19/2024 8:00 AM EDT Office Visit Pain Management [address] [place], [place] [id number] Charleen Silver MD [address] [place] [address] abd pain Pain Management Comment on above: abd pain Start: 06-30-2024 End: 06-30-2024 Admission to same day surgery center 06/30/2024 11:45 AM EDT - 06/30/2024 2:15 PM EDT Surgery Admitting [address] [place] [address] Adolfo Ballard MD [address] [place] [address] IMPLANT MESH/PROSTHESIS VENTRAL HERNIA REPAIR GREATER THAN [...] - 06/30/2024 12:42 PM EDT Surgery Admitting [address] [place] [address] Adolfo Ballard MD [address] [place] [address] IMPLANT MESH/PROSTHESIS VENTRAL HERNIA REPAIR GREATER THAN 10cm Admitting Comment on above: IMPLANT MESH/PROSTHESIS VENTRAL HERNIA R EPAIR GREATER THAN 10cm Start: 06-30-2024 End: 06-30-2024 Anesthesia consultation 06/30/2024 10:12 AM EDT Anesthesia Event Admitting [address] [place] [address] Bing Cali MD [address] [place] [address] Admitting Start: 06-30-2024 End: 06-30-2024 IMPLANT MESH/PROSTHESIS VENTRAL HERNIA REPAIR GREATER THAN 10cm IMPLANT MESH/PROSTHESIS VENTRAL HERNIA REPAIR GREATER THAN 10cm Preoperative examination Ventral hernia without obstruction or gangrene 06/30/2024 10:12 AM EDT [facility] Start: 06-30-2024 Subsequent hospital visit by physician Admitting Comment on above: Preoperative examination [Z01.818] Start: 06-29-2024 End: 09-28-2024 TYPE AND SCREEN,30 DAY [facility] Work Phone: Comment on above: Expected: 06/29/2024, Expires: Start: 06-29-2024 End: 06-29-2024 Anesthesia consultation 06/29/2024 12:30 PM EDT PAT Pre Anesthesia [address] [place] [address] PACC, EKG, Labs, Admit Interview Pre Anesthesia Comment on above: PACC, EKG, Labs, Admit Interview Start: 06-08-2024 End: 06-08-2024 ambulatory 06/08/2024 10:00 AM EDT [facility] Gastroenterology [address] [address] Rusty Lopez MD [address] [place] [address] review results Gastroenterology Comment on above: review results Start: 06-07-2024 End: 08-01-2024 aPTT in Platelet poor plasma by Coagulation assay ACTIVATED PARTIAL THROMBOPLASTIN TIME Lab Routine Preoperative examination Ventral hernia without obstruction or gangrene Expected: 06/07/2024, Expires: 08/01/2024 [facility] Comment on above: Expected: 06/07/2024, Expires: Start: 06-07-2024 End: 08-01-2024 CBC W Auto Differential panel - Blood COMPLETE BLOOD COUNT AND DIFFERENTIAL Lab Routine Preoperative examination Ventral hernia without obstruction or gangrene Expected: 06/07/2024, Expires: 08/01/2024 [facility] Comment on above: Expected: 06/07/2024, Expires: Start: 06-07-2024 End: 08-01-2024 Comprehensive metabolic 2000 panel - Serum or Plasma COMPREHENSIVE METABOLIC PANEL Lab Routine Preoperative examination Ventral hernia without obstruction or gangrene Expected: 06/07/2024, Expires: 08/01/2024 [facility] Comment on above: Expected: 06/07/2024, Expires: 4 Start: 06-07-2024 End: 08-01-2024 CONFIRM BLOOD TYPE CONFIRM BLOOD TYPE Blood Bank Routine Preoperative examination Ventral hernia without obstruction or gangrene Expected: 06/07/2024, Expires: 08/01/2024 [facility] Comment on above: Expected: 06/07/2024, Expires: Start: 06-07-2024 End: 08-01-2024 PT panel - Platelet poor plasma by Coagulation assay PROTHROMBIN TIME Lab Routine Preoperative examination Ventral hernia without obstruction or gangrene Expected: 06/07/2024, Expires: 08/01/2024 [facility] Comment on above: Expected: 06/07/2024, Expires: Start: 05-21-2024 End: 05-21-2024 Patient encounter procedure Radiology Ct Scan Comment on above: CT ENTEROGRAPHY W IVCON Start: 05-14-2024 End: 08-13-2024 Alpha 1 antitrypsin [Mass/volume] in Serum or Plasma [id number] Lab Routine Elevated liver enzymes Fatty liver Expected: 05/14/2024, Expires: 08/13/2024 [facility] Comment on above: Expected: 05/14/2024, Expires: Start: 05-14-2024 End: 08-13-2024 C reactive protein [Mass/volume] in Serum or Plasma C-REACTIVE PROTEIN Lab Routine Crohn's disease of small and large intestines with complication (HCC) Expected: 05/14/2024, Expires: 08/13/2024 [facility] Comment on above: Expected: 05/14/2024, Expires: 4 Start: 05-14-2024 End: 08-13-2024 CBC panel - Blood by Automated count COMPLETE BLOOD COUNT Lab Routine Crohn's disease of small and large intestines with complication (HCC) Expected: 05/14/2024, Expires: 08/13/2024 [facility] Work Phone: Comment on above: Expected: 05/14/2024, Expires: Start: 05-14-2024 End: 08-13-2024 Ceruloplasmin [Mass/volume] in Serum or Plasma CERULOPLASMIN Lab Routine Elevated liver enzymes Fatty liver Expected: 05/14/2024, Expires: 08/13/2024 [facility] Comment on above: Expected: 05/14/2024, Expires: Start: 05-14-2024 End: 08-13-2024 Chronic hepatitis differentiation between hepatitis B and C virus panel - Serum or Plasma HEP REMOTE PANEL BL Lab Routine Crohn's disease of small and large intestines with complication (HCC) Expected: 05/14/2024, Expires: 08/13/2024 [facility] Comment on above: Expected: 05/14/2024, Expires: Start: 05-14-2024 End: 08-13-2024 Comprehensive metabolic 2000 panel - Serum or Plasma COMPREHENSIVE METABOLIC PANEL Lab Routine Crohn's disease of small and large intestines with complication (HCC) Expected: 05/14/2024, Expires: 08/13/2024 [facility] Comment on above: Expected: 05/14/2024, Expires: 4 Start: 05-14-2024 End: 08-13-2024 CREATININE BLD CREATININE BLD Lab Routine Crohn's disease of small and large intestines with complication (HCC) Expected: 05/14/2024, Expires: 08/13/2024 [facility] Comment on above: Expected: 05/14/2024, Expires: Start: 05-14-2024 End: 08-13-2024 HEP BE ANTIBODY HEP BE ANTIBODY Lab Routine Elevated liver enzymes Fatty liver Expected: 05/14/2024, Expires: 08/13/2024 [facility] Comment on above: Expected: 05/14/2024, Expires: Start: 05-14-2024 End: 08-13-2024 HEP BE ANTIGEN HEP BE ANTIGEN Lab Routine Elevated liver enzymes Fatty liver Expected: 05/14/2024, Expires: 08/13/2024 [facility] Comment on above: Expected: 05/14/2024, Expires: Start: 05-14-2024 End: 08-13-2024 Hepatitis B virus DNA [Units/volume] in Serum HEPATITIS B VIRUS DNA QUANTIFICATION, PLASMA/SERUM Lab Routine Elevated liver enzymes Fatty liver Expected: 05/14/2024, Expires: 08/13/2024 [facility] Comment on above: Expected: 05/14/2024, Expires: 4 Start: 05-14-2024 End: 08-13-2024 Liver kidney microsomal Ab [Titer] in Serum by Immunofluorescence LKM AB Lab Routine Elevated liver enzymes Fatty liver Expected: 05/14/2024, Expires: 08/13/2024 [facility] Comment on above: Expected: 05/14/2024, Expires: 4 Start: 05-14-2024 End: 08-13-2024 Mitochondria Ab [Presence] in Serum by Immunofluorescence MITOCHONDRIAL M2 IGG SERUM Lab Routine Elevated liver enzymes Fatty liver Expected: 05/14/2024, Expires: 08/13/2024 [facility] Comment on above: Expected: 05/14/2024, Expires: Start: 05-14-2024 End: 08-13-2024 Nuclear Ab [Presence] in Serum by Immunoassay MONA BLOOD Lab Routine Elevated liver enzymes Fatty liver Expected: 05/14/2024, Expires: 08/13/2024 [facility] Work Phone: Comment on above: Expected: 05/14/2024, Expires: 4 Start: 05-14-2024 End: 08-13-2024 PT panel - Platelet poor plasma by Coagulation assay PROTHROMBIN TIME Lab Routine Elevated liver enzymes Fatty liver Expected: 05/14/2024, Expires: 08/13/2024 [facility] Comment on above: Expected: 05/14/2024, Expires: 4 Start: 05-14-2024 End: 08-13-2024 Smooth muscle Ab [Presence] in Serum SMOOTH MUSCLE AB SCR Lab Routine Elevated liver enzymes Fatty liver Expected: 05/14/2024, Expires: 08/13/2024 [facility] Comment on above: Expected: 05/14/2024, Expires: 4 Start: 12-01-2023 Behavioral Health Screening Behavioral Health Screening [facility] Start: 10-18-2023 End: 01-17-2024 Hepatic function 2000 panel - Serum or Plasma HEPATIC FUNCTION PNL Lab Routine Chronic hepatitis C without hepatic coma (HCC) Elevated liver enzymes Expected: 10/18/2023, Expires: 01/17/2024 [facility] Work Phone: Comment on above: Expected: 10/18/2023, Expires: Start: 09-17-2023 End: 12-17-2023 Alpha 1 antitrypsin [Mass/volume] in Serum or Plasma [id number] BL Lab Routine Chronic hepatitis C without hepatic coma (HCC) Elevated liver enzymes Expected: 09/17/2023, Expires: 12/17/2023 [facility] Work Phone: Comment on above: Expected: 09/17/2023, Expires: Start: 09-17-2023 End: 12-17-2023 Ceruloplasmin [Mass/volume] in Serum or Plasma CERULOPLASMIN BLD Lab Routine Chronic hepatitis C without hepatic coma (HCC) Elevated liver enzymes Expected: 09/17/2023, Expires: 12/17/2023 [facility] Work Phone: Comment on above: Expected: 09/17/2023, Expires: 4 Start: 09-17-2023 End: 12-17-2023 Ferritin [Mass/volume] in Serum or Plasma FERRITIN BLD Lab Routine Chronic hepatitis C without hepatic coma (HCC) Elevated liver enzymes Expected: 09/17/2023, Expires: 12/17/2023 [facility] Work Phone: Comment on above: Expected: 09/17/2023, Expires: 4 Start: 09-17-2023 End: 12-17-2023 Gamma glutamyl transferase [Enzymatic activity/volume] in Serum or Plasma GGT BLD Lab Routine Elevated liver enzymes Expected: 09/17/2023, Expires: 12/17/2023 [facility] Work Phone: Comment on above: Expected: 09/17/2023, Expires: 4 Start: 09-17-2023 End: 12-17-2023 Hemoglobin A1c in Blood HGB A1C Lab Routine Chronic hepatitis C without hepatic coma (HCC) Elevated liver enzymes Expected: 09/17/2023, Expires: 12/17/2023 [facility] Work Phone: Comment on above: Expected: 09/17/2023, Expires: 4 Start: 09-17-2023 End: 12-17-2023 HEPATITIS A ANTIBODY, IGG HEPATITIS A ANTIBODY, IGG Lab Routine Chronic hepatitis C without hepatic coma (HCC) Elevated liver enzymes Expected: 09/17/2023, Expires: 12/17/2023 [facility] Work Phone: Comment on above: Expected: 09/17/2023, Expires: 4 Start: 09-17-2023 End: 12-17-2023 Hepatitis B virus core Ab [Presence] in Serum HEP B CORE AB TOTAL Lab Routine Chronic hepatitis C without hepatic coma (HCC) Elevated liver enzymes Expected: 09/17/2023, Expires: 12/17/2023 [facility] Work Phone: Comment on above: Expected: 09/17/2023, Expires: 4 Start: 09-17-2023 End: 12-17-2023 Hepatitis B virus surface Ab [Presence] in Serum HEP B SURF AB Lab Routine Chronic hepatitis C without hepatic coma (HCC) Elevated liver enzymes Expected: 09/17/2023, Expires: 12/17/2023 [facility] Work Phone: Comment on above: Expected: 09/17/2023, Expires: 4 Start: 09-17-2023 End: 12-17-2023 HFE gene targeted mutation analysis in Blood or Tissue by Molecular genetics method HFE (HEMOCHROMATOSIS) Lab Routine Chronic hepatitis C without hepatic coma (HCC) Elevated liver enzymes Expected: 09/17/2023, Expires: 12/17/2023 [facility] Work Phone: Comment on above: Expected: 09/17/2023, Expires: 4 Start: 09-17-2023 End: 12-17-2023 IgG [Mass/volume] in Serum or Plasma IGG Lab Routine Elevated liver enzymes Expected: 09/17/2023, Expires: 12/17/2023 [facility] Work Phone: Comment on above: Expected: 09/17/2023, Expires: 4 Start: 09-17-2023 End: 12-17-2023 IgM [Mass/volume] in Serum or Plasma IGM Lab Routine Elevated liver enzymes Expected: 09/17/2023, Expires: 12/17/2023 [facility] Work Phone: Comment on above: Expected: 09/17/2023, Expires: 4 Start: 09-17-2023 End: 12-17-2023 Iron and Iron binding capacity panel - Serum or Plasma IRON + TIBC Lab Routine Chronic hepatitis C without hepatic coma (HCC) Elevated liver enzymes Expected: 09/17/2023, Expires: 12/17/2023 [facility] Work Phone: Comment on above: Expected: 09/17/2023, Expires: 4 Start: 09-17-2023 End: 12-17-2023 Lipid 1996 panel - Serum or Plasma LIPID PANEL BASIC Lab Routine Chronic hepatitis C without hepatic coma (HCC) Elevated liver enzymes Expected: 09/17/2023, Expires: 12/17/2023 [facility] Work Phone: Comment on above: Expected: 09/17/2023, Expires: 4 Start: 09-17-2023 End: 12-17-2023 Mitochondria Ab [Presence] in Serum by Immunofluorescence MITOCHONDRIAL M2 IGG SERUM Lab Routine Chronic hepatitis C without hepatic coma (HCC) Elevated liver enzymes Expected: 09/17/2023, Expires: 12/17/2023 [facility] Work Phone: Comment on above: Expected: 09/17/2023, Expires: 4 Start: 09-17-2023 End: 12-17-2023 Nuclear Ab [Presence] in Serum by Immunoassay MONA BLOOD Lab Routine Chronic hepatitis C without hepatic coma (HCC) Elevated liver enzymes Expected: 09/17/2023, Expires: 12/17/2023 [facility] Work Phone: Comment on above: Expected: 09/17/2023, Expires: 4 Start: 09-17-2023 End: 12-17-2023 Smooth muscle Ab [Presence] in Serum SMOOTH MUSCLE AB SCR Lab Routine Chronic hepatitis C without hepatic coma (HCC) Elevated liver enzymes Expected: 09/17/2023, Expires: 12/17/2023 [facility] Work Phone: Comment on above: Expected: 09/17/2023, Expires: 4 Start: 09-12-2023 End: 11-12-2023 Acute hepatitis 2000 panel - Serum [facility] Work Phone: Comment on above: Expected: 09/12/2023, Expires: 3 Start: 09-12-2023 End: 11-12-2023 Hepatitis B virus core IgM Ab [Presence] in Serum [facility] Work Phone: Comment on above: Expected: 09/12/2023, Expires: 3 Start: 09-12-2023 End: 11-12-2023 Hepatitis B virus surface Ab [Presence] in Serum [facility] Work Phone: Comment on above: Expected: 09/12/2023, Expires: 3 Start: 09-12-2023 End: 11-12-2023 Hepatitis B virus surface Ag [Presence] in Serum [facility] Work Phone: Comment on above: Expected: 09/12/2023, Expires: 3 Start: 09-12-2023 End: 11-12-2023 Hepatitis C virus RNA [Units/volume] (viral load) in Serum or Plasma by GERMÁN with probe detection [facility] Work Phone: Comment on above: Expected: 09/12/2023, Expires: 3 Start: 09-12-2023 End: 11-12-2023 HIV 1+2 Ab [Presence] in Serum or Plasma by Immunoassay [facility] Work Phone: Comment on above: Expected: 09/12/2023, Expires: 3 Start: 08-01-2023 Covid-19 Vaccine ( season) Covid-19 Vaccine ( season) [facility] Start: 08-01-2023 Influenza vaccination Influenza Vaccine (#1) [facility] Start: 12-01-2022 Depression Assessment Depression Assessment [facility] Start: 08-01-2022 Influenza vaccination INFLUENZA (Season Ended) [facility] Start: 08-01-2018 Influenza vaccination SEQUENTIAL INFLUENZA VACCINE (Season Ended) [facility] Start: 08-01-2017 Influenza vaccination SEQUENTIAL INFLUENZA VACCINE (#1) [facility] Work Phone: Start: 2010 Hepatitis A Vaccine (1 of 2 - Risk 2-dose series) Hepatitis A Vaccine (1 of 2 - Risk 2-dose series) [facility] Start: 2010 HEPATITIS B (1 of 3 - Risk 3-dose series) HEPATITIS B (1 of 3 - Risk 3-dose series) [facility] Start: 2010 Hepatitis B Vaccine (1 of 3 - 19+ 3-dose series) Hepatitis B Vaccine (1 of 3 - 19+ 3-dose series) [facility] Start: 2010 Urine microalbumin profile [facility] Start: 2009 Depression Screening Depression Screening [facility] Start: 2009 MMR (1 of 2 - Risk 2-dose series) MMR (1 of 2 - Risk 2-dose series) [facility] Start: 2009 MMR Vaccine (1 of 2 - Risk 2-dose series) MMR Vaccine (1 of 2 - Risk 2-dose series) [facility] Start: 2003 Adult depression screening assessment DEPRESSION SCREENING [facility] Start: 2001 Meningococcal B Vaccine: Consider Based On Risk (1 of 4 - Increased Risk) Meningococcal B Vaccine: Consider Based On Risk (1 of 4 - Increased Risk) [facility] Start: 2001 MENINGOCOCCAL B: Consider based on risk (1 of 4 - Increased Risk Bexsero 2-dose series) MENINGOCOCCAL B: Consider based on risk (1 of 4 - Increased Risk Bexsero 2-dose series) [facility] Start: 1997 PNEUMOCOCCAL (1 - PCV) PNEUMOCOCCAL (1 - PCV) [facility] Start: 1997 [facility] Start: 1996 COVID-19 VACCINE (#1) COVID-19 VACCINE (#1) [facility] Start: 1992 HEPATITIS A (1 of 2 - Risk 2-dose series) HEPATITIS A (1 of 2 - Risk 2-dose series) [facility] Start: 1991 Covid-19 Vaccine (#1) Covid-19 Vaccine (#1) [facility] Start: 1991 Tetanus vaccination TETANUS EVERY 10 YR [facility] Work Phone: End: 10-28-2024 Ct abdomen & pelvis w/contrast material CT ENTEROGRAPHY W IVCON Radiology Routine Crohn's disease of small and large intestines with complication (HCC) 1 Occurrences starting 09/29/2023 until 10/28/2024 [facility] Work Phone: Comment on above: 1 Occurrences starting 09/29/2023 until 10/28/2024 End: 06-13-2025 CT Small bowel W contrast PO and W contrast IV CT ENTEROGRAPHY W IVCON Radiology Routine Crohn's disease of small and large intestines with complication (HCC) 1 Occurrences starting 05/14/2024 until 06/13/2025 [facility] Comment on above: 1 Occurrences starting 05/14/2024 until 06/13/2025 End: 05-31-2025 ECG COMPLETE ECG COMPLETE ECG Routine Preoperative examination Ventral hernia without obstruction or gangrene 1 Occurrences starting 05/31/2024 until 05/31/2025 [facility] Comment on above: 1 Occurrences starting 05/31/2024 until 05/31/2025 ECG COMPLETE ECG COMPLETE ECG 06/29/2024 12:32 PM EDT [facility] IMPLANT MESH/PROSTHE SIS VENTRAL HERNIA REPAIR GREATER THAN 10cm IMPLANT MESH/PROSTHESIS VENTRAL HERNIA REPAIR GREATER THAN 10cm Preoperative examination Ventral hernia without obstruction or gangrene [facility] Liver ultrasound attenuation by transient elastography DDI VIBRATION CONTROLLED TRANSIENT ELASTOGRAPHY (VCTE) Endoscopy Routine Elevated liver enzymes Fatty liver Ordered: 05/14/2024 [facility] Comment on above: Ordered: 05/14/2024 Patient Education Prone Position [facility] ED/OP COVID-19 Discharge Instructions [facility] Work Phone: Patient referral [facility] Work Phone: REFER FOR ADMIT INTERVIEW REFER FOR ADMIT INTERVIEW Procedures Routine Preoperative examination Ventral hernia without obstruction or gangrene Ordered: 05/31/2024 [facility] Work Phone: Comment on above: Ordered: 05/31/2024 End: 10-11-2024 US ABD RIGHT UPPER QUADRANT US ABD RIGHT UPPER QUADRANT Radiology Routine Chronic hepatitis C without hepatic coma (HCC) 1 Occurrences starting 09/12/2023 until 10/11/2024 [facility] Work Phone: Comment on above: 1 Occurrences starting 09/12/2023 until 10/11/2024 End: 05-30-2023 XR HAND GENERAL 3V PA/LAT/OBL RIGHT XR HAND GENERAL 3V PA/LAT/OBL RIGHT Radiology Routine Hand injury, right, initial encounter 1 Occurrences starting 04/30/2022 until 05/30/2023 [facility] Work Phone: Comment on above: 1 Occurrences starting 04/30/2022 until 05/30/2023 [facility] Immunizations Immunization Date Immunization Notes Care Provider Ara kent 02-19-2017 Vivitrol Cruz Olexa Other Adyen Other 01-27-2017 Vivitrol Cruz Olexa Other Yapta [facility] Araca Other NEGATED: Highlighted row has not occurred!03-24-2021 tetanus toxoid, reduced diphtheria toxoid, and acellular pertussis vaccine, adsorbed MD Chetan Dan ([facility]) Work Phone: [facility] NEGATED: Highlighted row has not occurred!07-05-2018 tetanus toxoid, reduced diphtheria toxoid, and acellular pertussis vaccine, adsorbed MD Chetan Dan ([facility]) Work Phone: [facility] Payers Date Payer Category Payer Self-pay [id number] 2023 Medicaid [employer] [employer] [place] [employer] [id number] 2023-Present [phone] [address] [place] [address] Medicaid [id number] 2021 Medicaid [place] [employer] [id number] 2021-Present [phone] [address] [place] [address] Medicaid [id number] 2012 Medicare [id number] 1991 Unknown [id number] 02 1991 Unknown [id number] 03 1991 Unknown [id number] 93 1991 Unknown [id number] 93 1991 Unknown [id number] 93 1991 Unknown [id number] 93 1959 Medicaid [id number] Medicare [id number] Unknown [id number] 31 Unknown AC [employer] PA YOR AC [employer] PAYOR [id number] Effective for all dates [address] [place] [address] Other [id number] Worker's Compensation [id number] Social History Date Type Detail Facility Start: 2018 End: 09-12-2023 Tobacco smoking status NHIS Current every day smoker [facility] History of tobacco use Cigarette Smoker [facility] [employer] Work Phone: Start: 2018 End: 12-19-2022 Cigarettes smoked current (pack per day) - Reported [facility] Work Phone: Start: 1990 Sex Assigned At Not on file [facility] [employer] Work Phone: Start: 10-08-2021 End: 07-19-2024 Alcohol intake Current drinker of alcohol (finding) [facility] Start: 12-19-2022 End: 09-12-2023 Sex Assigned At [facility] Work Phone: Start: 11-11-2022 Tobacco smoking stat us NDIS Smoker (finding) [facility] Start: 1991 Sex Assigned At Male F [facility] Start: 09-12-2023 Tobacco use and exposure Smokeless tobacco non-user [facility] National Score (1-10 0), lower number is lower risk 53 [facility] Start: 10-09-2020 Gender identity Identifies as male gender (finding) [facility] Start: 06-29-2024 Alcohol Comment 4-5 shots per day [facility] Has the [employer], oil, or water company threatened to shut off services in your home in past 12Mo No [facility] Work Phone: (I/We) worried wheth er (my/our) food would run out before (I/we) got money to buy more. Never true [facility] Medical Equipment Procedure Code Equipment Code Equipment Origin al Text Equipment Identifier Dates Mesh Prolene Squ are Flat [id number] Surgical Knit Nonabsorbable Nonreactive - [id number] Start: 06-30-2024 Clinical Notes 09-06-2012 to 08-13-2024 Telephone Encounter - Adolfo Ballard MD - 08/13/2024 8:25 AM EDTTelephone Encounter - Adolfo Ballard MD - 08/13/2024 8:25 AM EDTAdolfo Ballard MD - 07/19/2024 11:43 AM EDTPatient Instructions Note Date & Type Note Facility 08-13-2024 Telephone encounter Note I called Mr Momin because he continues to send MyChart messages with misinformation. I answered his questions. I explained that he did not have any bowel removed in his operation and his mesh was placed outside of the abdominal cavity so it does not contact his bowel. He is upset with all of his providers, or former providers, because as he states all of them have dropped them from his practice and he doesn't understand why. This includes his PCP and his suboxone clinic. I answered all the questions I could from a surgical standpoint and reassured him that his post op course is as I would expect for him. He thanked me for the call. [facility] 08-13-2024 Miscellaneous Notes I called Mr Momin because he continues to send MyChart messages with misinformation. I answered his questions. I explained that he did not have any bowel removed in his operation and his mesh was placed outside of the abdominal cavity so it does not contact his bowel. He is upset with all of his providers, or former providers, because as he states all of them have dropped them from his practice and he doesn't understand why. This includes his PCP and his suboxone clinic. I answered all the questions I could from a surgical standpoint and reassured him that his post op course is as I would expect for him. He thanked me for the call. documented in this encounter [facility] 07-19-2024 Note [facility] 07-19-2024 History of Presen t illness [...] as the recommendation for Cymbalta from the painter. He does not want to take any his medications and prefers opioids. I do not write him a prescription for any opioids today. I continue with my recommendation that he should resume his Suboxone consistent with pain management recommendations. He can follow-up as needed. documented in this encounter [facility] 07-19-2024 Note HNO ID: [id number] Author: CHARLEEN SILVER MD Service: ? Author Type: Physician Type: Progress Notes Filed: 07/19/2024 08:45 Note Text: [facility] Pain Management Department Consultation Date: July 19, [...] the past who has been treated at [facility] recently for abdominal hernia repair with a [...] No date: Bowel disease No date: Cancer (HCC) No date: Chronic obstructive pulmonary disease (COPD) (HCC) No date: Congestive heart failure (HCC) 2007: Crohn's No date: History of transfusion 03/21/2010: Pneumonia 1 (more content not included)... [facility] 07-19-2024 History of Presen t illness Narrative [facility] Pain Management Department Consultation Date: July 19, [...] the past who has been treated at [facility] recently for abdominal hernia repair with a [...] No date: Bowel disease No date: Cancer (HCC) No date: Chronic obstructive pulmonary disease (COPD) ([facility]) No date: Congestive heart failure (HCC) 2008: Crohn's No date: History of transfusion 03/21/2010: Pneumonia 11/06/2015: SBO (small bowel obstruction) ([facility]) Comment: - CT : bowl obstruction with transition point at the [facility] -NPO -IVF -pain control -Phenergen for n/v [...] INTESTINE Comment: Performed by [facility]31[facility]: PAST SURGICAL HISTORY OF Comment: [...] diagnostic tests reviewed for today's visit: The [facility] EMR was reviewed during the visit OARRS: [...] Charleen Silver MD Electronic signature CC Chetan Dan MD, MD through [employer] documented in this encounter [facility] 07-12-2024 Telephone encounter Note Angelita Momin was called in response to his call to the office. His primary complaint is management of his pain. He is currently receiving his Dilaudid which was prescribed and is set to end on the 15th. He states that he still has 18 [...] the phone with him. Adolfo Ballard MD T [facility] Work Phone: 07-12-2024 Miscellaneous Notes Angelita Momin was called in response to his call to the office. His primary complaint is management of his pain. He is currently receiving his Dilaudid which was prescribed and is set to end on the 15th. He states that he still has 18 [...] Adolfo Ballard MD documented in this encounter [facility] 07-11-2024 Note [facility] 07-11-2024 History of Presen t illness Narrative Virtualist Progress Note Triage Call I have communicated my name and active licensure. The patient's identity and physical location were verified at the time of this visit. Either the patient or their legal brand representative has been informed of the risks and benefits of -- and alternatives to -- treatment through a remote evaluation and consents to proceed with the evaluation remotely. Triage source: Triage Call (Nurse Publications Editor, [facility] - NOC Triage, [facility] Triage, [facility] Phone Triage) Was patient downgraded (i.e. disposition [...] CC Home Care nurse triage, or an [facility] Care, the disposition is Go to ED Now ): Go to ED Now Virtualist Recommended Disposition: Go to ED Signed in as Primary Virtualist, Secondary Virtualist, or [facility] Telehealth provider: Secondary documented in this encounter [facility] 07-11-2024 Telephone encounter Note Reason for call: [...] small strands.) Protocols used: Urine - Blood In-ADULT-AH [facility] 07-11-2024 Miscellaneous Notes Reason for call: Patient [...] small strands.) Protocols used: Urine - Blood In-ADULT-AH documented in this encounter [facility] 07-08-2024 Note [facility] 07-08-2024 Note [facility] 07-08-2024 Note [facility] 07-08-2024 Note [facility] 07-07-2024 Note [facility] 07-06-2024 Note [facility] 07-06-2024 Note [facility] 07-06-2024 Note [facility] 07-05-2024 Note [facility] 07-04-2024 Note [facility] 07-04-2024 Note [facility] 07-04-2024 Note [facility] 07-04-2024 Note [facility] 07-03-2024 Note [facility] 07-03-2024 Note [facility] 07-02-2024 Note [facility] 07-01-2024 Note [facility] 06-30-2024 Note [facility] 06-29-2024 History and physical note Images from the original note were not included. [facility] HISTORY AND PHYSICAL EXAMINATION SERVICE DATE: 06/29/2024 SERVICE TIME: 12:04 PM PRIMARY CARE PHYSICIAN: Chetan Dan MD, MD REASON FOR VISIT: Angelita Momin [...] years old or younger STOP-Bang Score: 2 [id number] Score: Age: <65 Sex: male [id number] Score: ARISCAT Score: Age: <=50 Preoperative SpO2: [...] of Planned Surgery or Procedure: Answer: [facility] Order Specific Question: Status of surgery/procedure: Answer: [...] (COPD) (HCC) Congestive heart failure (HCC) Crohn's 2008 History of transfusion Pneumonia 03/21/2010 SBO (small bowel obstruction) (HCC) 11/06/2015 - CT : bowl obstruction with transition point at the [facility] -NPO -IVF -pain control -Phenergen for n/v [...] Performed by FRANCO GARCIA at [facility] PAST SURGICAL HISTORY OF 03/31/2008 2 lung [...] fevers. Neuro: No history of TIA's, stroke, WORKCELL OPERATOR tumor, impaired sensorium, hemiplegia, paraplegia or quadraplegia. No neurological symptoms or problems. Respiratory: Positive for Tobacco Use 0.5ppd , Negative for No history of current cough or dyspnea, or pneumonia in the past 6 weeks. No history of respiratory/pulmonary symptoms or problems Cardiovascular: No history of HTN requiring medication, no history of angina, CHF, MD, cardiac surgery or stents. Denies rest pain, [...] Angelita Momin DATE: 06/29/2024 TIME: 12:04 PM [facility] 06-29-2024 History and physical note Images from the original note were not included. [facility]esthesia [facility] HISTORY AND PHYSICAL EXAMINATION SERVICE DATE: 06/29/2024 SERVICE TIME: 12:04 PM PRIMARY CARE PHYSICIAN: Chetan Dan MD, MD REASON FOR VISIT: Angelita Momin [...] years old or younger STOP-Bang Score: 2 [id number] Score: Age: <65 Sex: male [id number] Score: ARISCAT Score: Age: <=50 Preoperative SpO2: [...] of Planned Surgery or Procedure: Answer: [facility] Order Specific Question: Status of surgery/procedure: Answer: [...] transfusion Pneumonia 03/21/2010 SBO (small bowel obstruction) ([facility]) 11/06/2015 - CT : bowl obstruction with transition point at the [facility] -NPO -IVF -pain control -Phenergen for n/v [...] Performed by FRANCO GARCIA at [facility] PAST SURGICAL HISTORY OF 03/31/2008 2 lung [...] fevers. Neuro: No history of TIA's, stroke, WORKCELL OPERATOR tumor, impaired sensorium, hemiplegia, paraplegia or quadraplegia. No neurological symptoms or problems. Respiratory: Positive for Tobacco Use 0.5ppd , Negative for No history of current cough or dyspnea, or pneumonia in the past 6 weeks. No history of respiratory/pulmonary symptoms or problems Cardiovascular: No history of HTN requiring medication, no history of angina, CHF, MD, cardiac surgery or stents. Denies rest pain, [...] TIME: 12:04 PM documented in this encounter [facility] 06-28-2024 Instructions Nataliia Baez APRN.CNP - 06/28/2024 7:46 AM EDT PATIENT PREOPERATIVE INSTRUCTIONS Renee Pearce APRN.C* has scheduled you for your procedure at this surgery center: [facility] Scheduling Office: [phone] --[address] [place] [address]. Please read below carefully for your personalized [...] Procedures: - YOU MUST HAVE A RESPONSIBLE SENIOR WINDOWS SYSTEMS ADMINISTRATOR TAKE YOU HOME. A OVERWEAVER OR SCHOOL SOCIAL WORKER CANNOT BE MADE A RESPONSIBLE SENIOR WINDOWS SYSTEMS ADMINISTRATOR. - We recommend that a responsible person [...] call the Friday before. Your surgeon s pharmacy scheduler will tell you what time to call the office. - If you have not reached the departmental pharmacy scheduler by 5 P.M., call [phone] after 5 P.M. the day before your surgery. Please be aware that emergency situations arise, which may delay or change your surgical time. If this happens, we will notify you as soon as possible and regret any inconvenience. If you already have an Advance Directive, please fax a copy to [phone] or email to for it to be [...] chart that day. documented in this encounter [facility] 06-15-2024 History and physical note Images from the original note were not included. GENERAL SURGERY CONSULT SERVICE DATE: 05/28/2024 SERVICE TIME: 8:45 AM PRIMARY CARE PHYSICIAN: Chetan Dan MD, MD Subjective Consultation requested by Reyna [...] daily bowel movements. 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 Neuro: No history of TIA's, stroke, WORKCELL OPERATOR tumor, impaired sensorium, hemiplegia, paraplegia or quadriplegia. No neurological symptoms or problems. Respiratory: No history of current cough or dyspnea, or pneumonia in the past 6 weeks. No history of respiratory/pulmonary symptoms or problems. Cardiovascular: No history of HTN requiring medication, no history of angina, CHF, MD, cardiac surgery or stents. Denies rest pain, gangrene or revascularization/amputation for PVD. No history of cardiovascular symptoms or problems. GI: GERD, Nausea, Abdominal pain : No history of UTI in past 6 weeks. No history of renal failure. Not currently on or requiring dialysis. No history of symptoms or problems. GORE MAKER: Not reviewed Endocrine: No history of diabetes. [...] 15, 2024 TIME: 5:30 AM PAGER/CONTACT #: [facility] 06-15-2024 History and physical note Images from the original note were not included. GENERAL SURGERY CONSULT SERVICE DATE: 05/28/2024 SERVICE TIME: 8:45 AM PRIMARY CARE PHYSICIAN: Chetan Dan MD, MD Subjective Consultation requested by Reyna [...] daily bowel movements. 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 Neuro: No history of TIA's, stroke, WORKCELL OPERATOR tumor, impaired sensorium, hemiplegia, paraplegia or quadriplegia. No neurological symptoms or problems. Respiratory: No history of current cough or dyspnea, or pneumonia in the past 6 weeks. No history of respiratory/pulmonary symptoms or problems. Cardiovascular: No history of HTN requiring medication, no history of angina, CHF, MD, cardiac surgery or stents. Denies rest pain, gangrene or revascularization/amputation for PVD. No history of cardiovascular symptoms or problems. GI: GERD, Nausea, Abdominal pain : No history of UTI in past 6 weeks. No history of renal failure. Not currently on or requiring dialysis. No history of symptoms or problems. GORE MAKER: Not reviewed Endocrine: No history of diabetes. [...] AM PAGER/CONTACT #: documented in this encounter [facility] 06-08-2024 Note [facility] 06-08-2024 History of Presen t illness Narrative Telephone encounter, 20 minutes, patient agreed I have communicated my name and active licensure. The patient's identity and physical location were verified at the time of this visit. Either the patient or their legal brand representative has been informed of the risks [...] MyChart follow up.. documented in this encounter [facility] 05-28-2024 Note HNO ID: [id number] Author: ADOLFO BALLARD MD Service: ? Author Type: Physician Type: Progress Notes Filed: 06/02/2024 09:39 Note Text: Consultation requested by Dr. Jayleen Becker for an opinion regarding hernia. My final recommendations will be communicated back to the requesting physician by way of shared medical record or letter via US mail [facility] - HISTORY AND PHYSICAL Chief Complaint: [...] bowl obstruction with transition point at the [facility] -NPO -IVF -pain control -Phenergen for n/v [...] Performed by FRANCO GARCIA at [facility] PAST SURGICAL HISTORY OF 03/2008 2 lung [...] GI: No nause (more content not included)... [facility] 05-28-2024 History of Presen t illness Narrative Consultation requested by Dr. Jayleen Becker for an opinion regarding hernia. My final recommendations will be communicated back to the requesting physician by way of shared medical record or letter via US mail [facility] - HISTORY [...] Cancer (HCC) Chronic obstructive pulmonary disease (COPD) ([facility]) Congestive heart failure (HCC) Crohn's 2007 History of transfusion Pneumonia 03/21/2010 SBO (small bowel obstruction) ([facility]) 11/06/2015 - CT : bowl obstruction with transition point at the [facility] -NPO -IVF -pain control -Phenergen for n/v [...] Performed by FRANCO GARCIA at [facility] PAST SURGICAL HISTORY OF 03/2008 2 lung [...] 4 - Moderate documented in this encounter [facility] 05-28-2024 Nurse Note What is the reason for your visit today? Consultation Who is your referring physician? Dr. Rhys Becker MD Are you having poor oral intake? YES Have you had unintentional weight loss of 15 lbs/7 Kg in the last 3-6 months? NO Bowels: Constipated to Diarrhea Wound: N/ a Temperature: No Drains: No patient declined recreational specialist Sera Cummings MA May 28, 2024 10:03 AM [facility] 05-28-2024 Nurse Note What is the reason for your visit today? Consultation Who is your referring physician? Dr. Rhys Becker MD Are you having poor oral intake? YES Have you had unintentional weight loss of 15 lbs/7 Kg in the last 3-6 months? NO Bowels: Constipated to Diarrhea Wound: N/ a Temperature: No Drains: No patient declined recreational specialist Sera Cummings MA May 28, 2024 10:03 AM documented in this encounter [facility] 05-28-2024 Nurse Note What is the reason for your visit today? incisional hernia Who is your referring physician? LIZET Anton Are you having poor oral intake? NO Have you had unintentional weight loss of 15 lbs/7 Kg in the last 3-6 months? NO Bowels: regular \ patient declined recreational specialist Freida Gonzalez LPN [facility] 05-28-2024 Nurse Note What is the reason for your visit today? incisional hernia Who is your referring physician? LIZET Anton Are you having poor oral intake? NO Have you had unintentional weight loss of 15 lbs/7 Kg in the last 3-6 months? NO Bowels: regular \ patient declined recreational specialist Freida Gonzalez LPN documented in this encounter [facility] 05-21-2024 History of Presen t illness Narrative [...] PATIENT PRESENTS WITH AN IMPLANTABLE OR ATTACHED AIR ANALYST: No RADIOLOGY DEPARTMENT: CT; Exam(s) Completed: Enterography PERIPHERAL IV DATA: Not applicable SIGNED BY: RT Patrick(R) May 21, 2024 2:50 PM documented in this encounter [facility] 05-21-2024 Note [facility] 05-21-2024 Note [facility] 05-21-2024 History of Presen t illness [...] PM PAGER/CONTACT #: documented in this encounter [facility] 05-21-2024 Note [facility] 05-21-2024 Note [facility] 05-17-2024 Telephone encounter Note Faxed last 2 office visit notes to pt's insurance appeals department at [phone] for approval of his CTE. Await response. Lauren Berrios RN May 17, 2024 2:28 PM [facility] 05-17-2024 Miscellaneous Notes Faxed last 2 office visit notes to pt's insurance appeals department at [phone] for approval of his CTE. Await response. Lauren Berrios RN May 17, 2024 2:28 PM Pt called and has CT scheduled in [place] on 05/13. He stated that CT was denied due to being pelvic scan? He states not pelvic. Looks like it is in a peer to peer. Pt would like a call with update. [facility] documented in this encounter [facility] 05-14-2024 Instructions Reyna Anton APRN.CNP - 05/14/2024 11:39 AM EDT Blood work [...] same day fibroscan documented in this encounter [facility] 05-14-2024 Note [facility] 05-14-2024 History of Presen t illness Narrative NAME: Angelita Momin [facility] NO: [id number] REFERRING PHYSICIAN: Self PRESENTING COMPLAINT: follow up [...] has gotten worse Had appointment with Dr. Lopez with today; plans to have CT enterography [...] (COPD) (HCC) Congestive heart failure (HCC) Crohn's 2008 History of transfusion Pneumonia 03/21/2010 SBO (small [...] Mediterranean diet PLAN - MONA BLOOD - [id number] - CERULOPLASMIN - CERULOPLASMIN - SMOOTH MUSCLE AB SCR - MITOCHONDRIAL M2 IGG SERUM - LKM AB - HEPATITIS B VIRUS DNA QUANTIFICATION, PLASMA/SERUM - HEP BE ANTIBODY - HEP BE ANTIGEN - PROTHROMBIN TIME - DDI VIBRATION CONTROLLED TRANSIENT ELASTOGRAPHY (VCTE) - CONSULT TO GENERAL SURGERY Follow up in 6 months with same day fibroscan Reyna Anton APRN.LIZET Anton APRN.LIZET May 14, 2024 11:18 AM documented in this encounter [facility] 05-14-2024 Note [facility] 05-14-2024 History of Presen t illness [...] adhesions. No therapy since. Recent eval in [place] showed mild recurrence, hepatitis B and C. [...] vomiting with acid reflux. Pt is seeing dye weigher helper today. Physical Examination: General Appearance: alert, oriented [...] PFSH and ROS obtained by others. Rusty Lopez MD Date: May 14, 2024 documented in this encounter [facility] 05-10-2024 Telephone encounter Note Pt called and has CT scheduled in [place] on 05/13. He stated that CT was denied due to being pelvic scan? He states not pelvic. Looks like it is in a peer to peer. Pt would like a call with update. [facility] 09-29-2023 Note [facility] 09-29-2023 History of Presen t illness Narrative Virtual visit, 20 minutes, pt agreed Telephone encounter, minutes, patient agrees I have communicated my name and active licensure. The patient's identity and physical location were verified at the time of this visit. Either the patient or their legal brand representative has been informed of the risks and benefits of -- and alternatives to -- treatment through a remote evaluation and consents to proceed with the evaluation remotely. 33 yo with Crohn's disease, s/p subtotal colectomy with ileoanal anastomosis in 2014, complicated by SBO due to adhesions. No therapy since. Recent eval in [place] showed mild recurrence, hepatitis B and C. Now with about 15 bm daily (usual), no bleeding, wt stable, occ abd pain, no vomiting. 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 Remicade, Humira in the past. Small bowel disease found on Ct scan. Hx of opioid use on suboxone. Crohn's disease - Will check CTE and decide on treatment after. Rusty Lopez MD, MPH documented in this encounter [facility] 09-17-2023 Note [facility] 09-17-2023 History of Presen t illness [...] 3 (>/= S3: > 66% steatosis) Reference Cuellar Y, Fan Q, Cuellar T, Tracy J, Cuellar H, Murphy T. Controlled attenuation parameter for assessment of hepatic steatosis grades: a diagnostic meta-analysis. Int J Clin Exp Med. 2015 Aug 15;8(10):24803-12. PMID: 94991305; PMCID: [id number]. Ariel Spencer, Desirae BURRIS, Lester M, Yasmine F, Val J, Zakia O, Gay F, Alli Spencer, Kyle G, Ugo A, Fer E, Carlito L, Mary G, Dionne A, Shivam U, Julio S, Iftikhar P, Nargis V, Artis V, Lea Spencer, Anselmo JONES. Refining the Baveno elastography criteria for the definition of compensated advanced chronic liver disease. J Hepatol. 2020;74(5):0500-6339. doi: 10.1016/j.jhep.2020.11.050. Epub 2019Nov 08. PMID: 46676457. documented in this encounter [facility] 09-17-2023 Instructions Reyna Anton APRN.LIZET - 09/17/2023 9:54 AM EDT Blood work [...] in 6 months documented in this encounter [facility] 09-17-2023 History of Presen t illness Narrative [...] hepatic steatosis, completed at facility outside of [facility] system Staging: None Metabolic Syndrome Risk factors: [...] (COPD) (HCC) Congestive heart failure (HCC) Crohn's 2008 History of transfusion Pneumonia 03/21/2010 SBO (small bowel obstruction) ([facility]) 11/06/2015 - CT : bowl obstruction with transition point at the [facility] -NPO -IVF -pain control -Phenergen for n/v [...] Follow up in 6 months Reyna Anton APRN.AIRCRAFT ENGINE CYLINDER MECHANIC documented in this encounter [facility] 09-17-2023 Note [facility] 09-15-2023 Miscellaneous Notes Called pt Pt [...] Piter Meneses DO documented in this encounter [facility] 09-12-2023 Note [facility] 09-12-2023 History of Presen t illness Narrative CC: Angelita Momin is a [...] lyrica. He follows with a PCP in [place] who prescribes these medications. He thought today's appointment was with a real estate paralegal. REVIEW OF SYSTEMS GENERAL: No weight loss, [...] RIGHT UPPER QUADRANT F/u with PCP in [place]. If he wishes to transfer primary care to [facility] I welcomed him to schedule with me but for now he will continue filling his controlled substance prescriptions through his prior PCP Piter Meneses DO September 12, 2023 10:06 AM This note was partially generated using [employer] voice recognition system, and there may be some incorrect words, spellings, and punctuation that were not noted in checking the note before saving. . documented in this encounter [facility] 11-01-2022 Note PROCEDURE: XR FOOT R T MIN 3 VIEWS COMPARISON: None. HISTORY: Pain FINDINGS: BONES:No fracture, acute abnormality, or significant arthropathy. SOFT TISSUES:Negative. No visible soft tissue swelling. EFFUSION:None visible. OTHER: Negative. IMPRESSION: No acute disease. Electronically authenticated by: ADOLFO PERALTA Date: 2022-11-01 10:49 [facility] 04-19-2022 Note Education Materials Orthopedics Metacarpal Fracture [...] This may take several hours. ? Take ousd-bzi-ezbzgvb and prescription medicines only as told by [...] You have redness (more content not included)... [facility] 02-07-2022 Evaluation note Encounter Date Diagnosis Assessment [...] return to work 03/04/22 with no restriction. [facility] Other 02-10-2022 Evaluation note* Encounter Date Diagnosis [...] Patient states this is getting transferred to [facility]. [facility] Other 01-12-2022 NotePROCEDURE: XR KNEE RT 4V or > HISTORY: Pain ; acute medial knee pain COMPARISON: None. FINDINGS: BONES:No fracture, acute abnormality, or significant arthropathy. SOFT TISSUES:No visible soft tissue swelling. EFFUSION:None visible. OTHER: Negative. IMPRESSION: 1. No acute bone abnormality or significant degenerative changes. Electronically authenticated by: LUCY LUQUE Date: 2021-12-12 15:48[facility]10-14-2021 Evaluation note* Encounter Date Diagnosis Assessment Notes [...] futher treatment.To call with questions or concerns. [facility] Other 08-15-2021 History of Past illness Narrative* [...] of this encounter (statuses as of 09/12/2023) [facility]21 History of Past illness Narrative* Problem Noted Date Diagnosed Date Resolved Date Crohn's disease, acute 07/15/202109/12 Severe dehydration 11/06/2015 3 SBO (small bowel obstruction) 11/06/2015 09/12/2023 Overview: [...] of this encounter (statuses as of 09/15/2023) [facility] History of Past illness Narrative* Problem Noted Date Diagnosed Date Resolved Date Crohn's disease, acute 07/15/202109/12 Severe dehydration 11/06/2015 3 SBO (small bowel obstruction) 11/06/2015 09/12/2023 Overview: [...] of this encounter (statuses as of 09/17/2023) [facility] History of Past illness Narrative* Problem Noted Date Diagnosed Date Resolved Date Crohn's disease, acute 07/15/202109/12 Severe dehydration 11/06/2015 3 SBO (small bowel obstruction) 11/06/2015 09/12/2023 Overview: [...] of this encounter (statuses as of 09/18/2023) [facility] History of Past illness Narrative* Problem Noted [...] of this encounter (statuses as of 09/29/2023) [facility]10-07-2012 History of Past illness Narrative* Problem Noted [...] of this encounter (statuses as of 04/30/2022) [facility] Diagnosis Hand injury, right, initial encounter- Primary documented in this encounter [facility] noteNo InformationNort [place] Other Evaluation noteNo assessment information available [facility] Work Phone: Evaluation note* Diagnosis Crohn's disease of small intestine with other complication (HCC)- Primary Chronic hepatitis C without hepatic coma (HCC) Chronic hepatitis C without mention of hepatic coma [facility] Diagnosis Chronic hepatitis C without hepatic coma (HCC)- Primary Chronic hepatitis C without mention of hepatic coma Elevated liver enzymes Other nonspecific abnormal serum enzyme levels [facility] Diagnosis Elevated liver enzymes- Primary Other nonspecific abnormal serum enzyme levels Chronic hepatitis C without hepatic coma (HCC) Chronic hepatitis C without mention of hepatic coma Crohn's disease of small intestine with other complication (HCC) [facility] Diagnosis Crohn's disease of small and large intestines with complication (HCC)- Primary documented in this encounter [facility] note* Diagnosis Crohn's disease of small and large intestines with complication (HCC)- Primary [facility]* Diagnosis Fatty liver- Primary Other chronic nonalcoholic liver disease Elevated liver enzymes Other nonspecific abnormal serum enzyme levels Hernia Hernia of unspecified site of abdominal cavity without mention of obstruction or gangrene documented in this encounter [facility] note* Diagnosis Crohn's disease of small and large intestines with complication (HCC) documented in this encounter [facility] note* Diagnosis Preoperative examination- Primary Preoperative examination, unspecified Ventral hernia without obstruction or gangrene Ventral hernia, unspecified, without mention of obstruction or gangrene documented in this encounter [facility] note* Diagnosis Incisional hernia, without obstruction or gangrene- Primary Incisional hernia without mention of obstruction or gangrene Obesity, Class II, BMI 35-39.9 Obesity, unspecified documented in this encounter [facility] note* Diagnosis Crohn's disease of small and large intestines with complication (HCC)- Primary documented in this encounter [facility] note* Diagnosis Hernia Hernia of unspecified site of abdominal cavity without mention of obstruction or gangrene Preoperative examination Preoperative examination, unspecified Ventral hernia without obstruction or gangrene Ventral hernia, unspecified, without mention of obstruction or gangrene documented in this encounter [facility] note* Diagnosis Pre-op evaluation- Primary Preoperative [...] Assessment & Plan Note - Nataliia Baez APRN.AIRCRAFT ENGINE CYLINDER MECHANIC - 06/29/2024 12:41 PM EDTAssociated Problem(s): ETOH [...] PCP and GI documented in this encounter [facility] note* Diagnosis Post-operative pain- Primary Other acute postoperative pain documented in this encounter [facility] note* Diagnosis Encounter for medical assessment- Primary documented in this encounter [facility] note* Diagnosis Post-operative pain- Primary Other acute postoperative pain documented in this encounter [facility] note* Diagnosis Pre-op evaluation- Primary Preoperative [...] pain, generalized documented in this encounter [facility] note* Diagnosis Pre-op evaluation- Primary Preoperative [...] acute postoperative pain [facility]* Type Description Date Medical History Crohns disease Medical History anxiety Medical History depression Medical History bipolar Medical History colon cancer Medical History Seizure disorder Surgical History colectomy Surgical History colostomy Surgical History pneumonectomy Surgical History shoulder surgery Surgical History cholecystectomy Surgical History colectomy reversal 2011 Hospitalization History see above [facility] Other History general Narrative - Reported* Type [...] tial medial menisectemy Hospitalization History see above [facility] Other Hospital Discharge instructions Additional Instructions Quarantine per CDC guidelines Increase oral fluids Tylenol or Motrin for fever pain body aches May take ixoo-tzq-uohljtv cough and cold medication as needed Return to the ER for respiratory distress vomiting severe chest pain or [facility]: Reason for referral (narrative)* Diagnostic Procedure Only (Routine) - Pending Review Specialty Diagnoses / Procedures Referred By Jaycob healy Referred To Contact XR IMAGING Diagnoses Hand injury, right, initial encounter Procedures XR HAND GENERAL 3V PA/LAT/OBL RIGHT RADEX HAND MINIMUM 3 VIEWS Fernie Hollingsworth, [address] [place] [address] Xr Imaging Referral ID Status Reason Start Date Expiration Date Visits Requested Visits Authorized [id number] Pending Review Auto-Generat ed Referral 04/30/2022 05/30/2023 1 1 [facility] for referral (narrative)* Diagnostic Procedure Only (Routine) - Pending Review Specialty Diagnoses / Procedures Referred By Jaycob healy Referred To Contact US IMAGING Diagnoses Chronic hepatitis C without hepatic coma (HCC) Procedures US ABD RIGHT UPPER QUADRANT US ABDOMINAL REAL TIME W/[place] [address] [place] [address] [place] [address] Referral ID Status Reason Start Date Expiration Date Visits Requested Visits Authorized [id number] Pending Review Auto-Generat ed Referral 3 10/11/2024 1 1 * Consult, Test, Treat (Routine) - Authorized Specialty Diagnoses / Procedures Referred By Contac t Referred To Contact Gastroenterology Diagnoses Chronic hepatitis C without hepatic coma (HCC) Crohn's disease of small intestine with other complication (HCC) Procedures CONSULT TO GASTROENTEROLOGY OFFICE/OUTPATIENT [facility] 60-[place] [address] [place] [address] Referral ID Status Reason Start Date Expiration Date Visits Requested Visits Authorized [id number] Authorized PCP Requested Referral 3 09/11/2024 1 1 [facility] for referral (narrative)* Outpatient Procedure (Routine) - Closed Specialty Diagnoses / Procedures Referred By Contac t Referred To Contact [facility] Diagnoses Chronic hepatitis C without hepatic coma (HCC) Elevated liver enzymes Procedures DDI VIBRATION CONTROLLED TRANSIENT ELASTOGRAPHY (VCTE) LIVER ELASTOGRAPHY W/O IMAG W/I&R Reyna Anton, KATHIA.AIRCRAFT ENGINE CYLINDER MECHANIC [address] [place] [phone] [facility] [address] [place] [address] Referral ID Status Reason Start Date Expiration Date V isits Requested Visits Authorized [id number] Closed Auto-Generate d Referral 09/17/2023 09/17/2024 1 1 * Consult, Test, Treat (Routine) - Authorized Specialty Diagnoses / Procedures Referred By Contac t Referred To Contact Gastroenterology Diagnoses Crohn's disease of small intestine with other complication (HCC) Procedures CONSULT TO GASTROENTEROLOGY OFFICE/OUTPATIENT [facility] 60-74 MINUTES Reyna Anton, KATHIA.LIZET [address] [place] [phone] Referral ID Status Reason Start Date Expiration Date Visits Requested Visits Authorized [id number] Authorized PCP Requested Referral 09/16/2024 1 1 [facility] for referral (narrative)* Outpatient Procedure (Routine) - Authorized Specialty Diagnoses / Procedures Referred By Contac t Referred To Contact [facility] Diagnoses Elevated liver enzymes Fatty liver Procedures DDI VIBRATION CONTROLLED TRANSIENT ELASTOGRAPHY (VCTE) LIVER ELASTOGRAPHY W/O IMAG W/I&R Reyna Anton APRN.AIRCRAFT ENGINE CYLINDER MECHANIC [address] [phone] [facility] [address] [place], [place] [phone] Referral ID Status Reason Start Date Expiration Date Visits Requested Visits Authorized [id number] Authorized Auto-Generat ed Referral 05/14/2024 05/14/2025 1 1 * Consult, Test, Treat (Routine) - Authorized Specialty Diagnoses / Procedures Referred By Contac t Referred To Contact General Surgery Diagnoses Hernia Procedures CONSULT TO GENERAL SURGERY OFFICE/OUTPATIENT [facility] 60 MINUTES Reyna Anton APRN.AIRCRAFT ENGINE CYLINDER MECHANIC [address] [phone] Referral ID Status Reason Start Date Expiration Date Visits Requested Visits Authorized [id number] Authorized PCP Requested Referral 05/14/2024 05/14/2025 1 1 [facility] for visit Narrative* Outpatient Procedure (Routine) - Closed Specialty Diagnoses / Procedures Referred By Contac t Referred To Contact [facility] Diagnoses Chronic hepatitis C without hepatic coma (HCC) Elevated liver enzymes Procedures DDI VIBRATION CONTROLLED TRANSIENT ELASTOGRAPHY (VCTE) LIVER ELASTOGRAPHY W/O IMAG W/I&R Reyna Anton APRN.AIRCRAFT ENGINE CYLINDER MECHANIC [address] [phone] [facility] [address] [place] [phone] Referral ID Status Reason Start Date Expiration Date V isits Requested Visits Authorized [id number] Closed Auto-Generate d Referral 09/17/2023 09/17/2024 1 1 [facility] Instructions * Patient Instructions - Adolfo Puente CNP - 2018 2:55 PM EDT Formatting of [...] heating pad on your skin. Take an khfc-ggd-dceegtw pain medicine, such as acetaminophen (Tylenol), ibuprofen [...] Log into your personal health record on [email or web address] and enter C927 in the Education box to learn more about Earache: Care Instructions. Current as of: April 11, 2017 Content Version: 11.6 4108-5712 [employer]. Care instructions adapted under license by your healthcare professional. If you have questions about a medical condition or this instruction, always ask your healthcare professional. 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 Advance Directive(s) Advance Directive(s) 10/08/2021 [...] EVALUATION HIGH COMPLEX 45 MINS Lena Walters, COMMERCIAL REAL ESTATE AGENT.AIRCRAFT ENGINE CYLINDER MECHANIC [address] [place] [address] [facility] [address] [place] [address] Referral ID Status Reason Start Date Expiration Date Visits Requested Visits Authorized [id number] Pending Review Auto-Generat ed Referral 07/08/2024 07/08/2025 1 1 Specialty Diagnoses / Procedures Referred By Contac t Referred To Contact Diagnoses Preoperative examination Ventral hernia without obstruction or gangrene Procedures REFER TO P[facility] - PREOPERATIVE OPTIMIZATION OFFICE/OUTPATIENT [facility] 60 MINUTES Renee Pearce, COMMERCIAL REAL ESTATE AGENT.AIRCRAFT ENGINE CYLINDER MECHANIC [address] [place] [phone] Referral ID Status Reason Start Date Expiration Date Visits Requested Visits Authorized [id number] Authorized PCP Requested Referral 05/31/2024 05/31/2025 1 1 Specialty Diagnoses / Procedures Referred By Contac t Referred To Contact [facility] Diagnoses Preoperative examination Ventral hernia without obstruction or gangrene Procedures ECG COMPLETE ECG ROUTINE ECG W/LEAST 12 LDS W/I&R Renee Pearce, COMMERCIAL REAL ESTATE AGENT.AIRCRAFT ENGINE CYLINDER MECHANIC [address] [place] [phone] [facility] [address] [place] [address] Referral ID Status Reason Start Date Expiration Date Visits Requested Visits Authorized [id number] Pending Review Auto-Generat ed Referral 05/31/2024 05/31/2025 1 1 Specialty Diagnoses / Procedures Referred By Contac t Referred To Contact Diagnoses Preoperative examination Ventral hernia without obstruction or gangrene Procedures CONSULT TO [facility] OFFICE/OUTPATIENT [facility] 60 MINUTES Renee Pearce, COMMERCIAL REAL ESTATE AGENT.AIRCRAFT ENGINE CYLINDER MECHANIC [address] [place] [address] Referral ID Status Reason Start Date Expiration Date Visits Requested Visits Authorized [id number] Authorized PCP Requested Referral 05/31/2024 05/31/2025 1 1 Specialty Diagnoses / Procedures Referred By Jaycob healy Referred To Contact CT IMAGING Diagnoses Crohn's disease of small and large intestines with complication (HCC) Procedures CT ENTEROGRAPHY W IVCON CT ABD & PELVIS W/CONTRAST Rusty Lopez MD [address] [phone] [place] [address] Referral ID Status Reason Start Date Expiration Date Visits Requested Visits Authorized [id number] Pending Review Auto-Generat ed Referral 3 10/28/2024 [...] different from the original. ED PROVIDER NOTE [facility] EMERGENCY DEPARTMENT NAME: Angelita Momin AGE: 27 y.o. : 1990 VISIT DATE: 11/21/2017 CSN: [id number] PCP: Physician No Chief Complaint Patient presents [...] suicidal, homicidal ideation. History provided by: Patient system consultant used: No Toe Pain Associated symptoms: no [...] - - 11/21/17 0618 (!) 146/82 97.5 F (36.4 C ) Oral (!) 102 16 97 % 6' [...] examined Angelita Momin. I agree with the Nataliia REINOSO's treatment plan. 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 [...] section and content) DATE CREATED AUTHOR 05/17/2018 [facility] DATE CREATED AUTHOR AUTHOR'S ORGANIZ ATION 09/05/2019 [facility] DATE CREATED AUTHOR AUTHOR'S ORGANIZ ATION 09/05/2019 [facility] DATE CREATED AUTHOR AUTHOR'S ORGANIZ ATION 03/13/2021 [facility] DATE CREATED AUTHOR AUTHOR'S ORGANIZ ATION 04/27/2022 [facility] DATE CREATED AUTHOR AUTHOR'S ORGANIZ ATION 11/03/2022 [facility] DATE CREATED AUTHOR AUTHOR'S ORGANIZ ATION 09/14/2023 [facility] DATE CREATED AUTHOR AUTHOR'S ORGANIZ ATION 02/02/2024 [facility] DATE CREATED AUTHOR AUTHOR'S ORGANIZ ATION 04/11/2024 [facility] DATE CREATED AUTHOR AUTHOR[facility]S [facility]IZ ATION [facility] DATE CREATED AUTHOR AUTHOR'S ORGANIZ ATION 08/15/2024 [facility] Source Comments (unrecognize d section and content) In the event this informatio n is protected by the Federal Confidentiality of Alcohol and Drug Abuse Patient Records regulations: The Federal rules restrict any use of the information to criminally investigate or prosecute any alcohol or drug abuse patient.[facility] the event this information is protected by the Federal Confidentiality of Alcohol and Drug Abuse Patient Records regulations: The Federal rules restrict any use of the information to criminally investigate or prosecute any alcohol or drug abuse patient.[facility] the event this information is protected by the Federal Confidentiality of Alcohol and Drug Abuse Patient Records regulations: The Federal rules restrict any use of the information to criminally investigate or prosecute any alcohol or drug abuse patient.[facility] the event this information is protected by the Federal Confidentiality of Alcohol and Drug Abuse Patient Records regulations: The Federal rules restrict any use of the information to criminally investigate or prosecute any alcohol or drug abuse patient.[facility] the event this information is protected by the Federal Confidentiality of Alcohol and Drug Abuse Patient Records regulations: The Federal rules restrict any use of the information to criminally investigate or prosecute any alcohol or drug abuse patient.[facility] the event this information is protected by the Federal Confidentiality of Alcohol and Drug Abuse Patient Records regulations: The Federal rules restrict any use of the information to criminally investigate or prosecute any alcohol or drug abuse patient.[facility] Center[facility] the event this information is protected by the Federal Confidentiality of Alcohol and Drug Abuse Patient Records regulations: The Federal rules restrict any use of the information to criminally investigate or prosecute any alcohol or drug abuse patient.[facility] Center[facility] the event this information is protected by the Federal Confidentiality of Alcohol and Drug Abuse Patient Records regulations: The Federal rules restrict any use of the information to criminally investigate or prosecute any alcohol or drug abuse patient.[facility] Center[facility] the event this information is protected by the Federal Confidentiality of Alcohol and Drug Abuse Patient Records regulations: The Federal rules restrict any use of the information to criminally investigate or prosecute any alcohol or drug abuse patient.[facility] Center[facility] the event this information is protected by the Federal Confidentiality of Alcohol and Drug Abuse Patient Records regulations: The Federal rules restrict any use of the information to criminally investigate or prosecute any alcohol or drug abuse patient.[facility] Center[facility] the event this information is protected by the Federal Confidentiality of Alcohol and Drug Abuse Patient Records regulations: The Federal rules restrict any use of the information to criminally investigate or prosecute any alcohol or drug abuse patient.[facility] Center[facility] the event this information is protected by the Federal Confidentiality of Alcohol and Drug Abuse Patient Records regulations: The Federal rules restrict any use of the information to criminally investigate or prosecute any alcohol or drug abuse patient.[facility] Center[facility] the event this information is protected by the Federal Confidentiality of Alcohol and Drug Abuse Patient Records regulations: The Federal rules restrict any use of the information to criminally investigate or prosecute any alcohol or drug abuse patient.[facility] CenterIn the event this information is protected by the Federal Confidentiality of Alcohol and Drug Abuse Patient Records regulations: The Federal rules restrict any use of the information to criminally investigate or prosecute any alcohol or drug abuse patient.[facility] CenterIn the event this information is protected by the Federal Confidentiality of Alcohol and Drug Abuse Patient Records regulations: The Federal rules restrict any use of the information to criminally investigate or prosecute any alcohol or drug abuse patient.[facility] Center[facility] the event this information is protected by the Federal Confidentiality of Alcohol and Drug Abuse Patient Records regulations: The Federal rules restrict any use of the information to criminally investigate or prosecute any alcohol or drug abuse patient.[facility] CenterIn the event this information is protected by the Federal Confidentiality of Alcohol and Drug Abuse Patient Records regulations: The Federal rules restrict any use of the information to criminally investigate or prosecute any alcohol or drug abuse patient.[facility] CenterIn the event this information is protected by the Federal Confidentiality of Alcohol and Drug Abuse Patient Records regulations: The Federal rules restrict any use of the information to criminally investigate or prosecute any alcohol or drug abuse patient.[facility] Center[facility] the event this information is protected by the Federal Confidentiality of Alcohol and Drug Abuse Patient Records regulations: The Federal rules restrict any use of the information to criminally investigate or prosecute any alcohol or drug abuse patient.[facility] Center[facility] the event this information is protected by the Federal Confidentiality of Alcohol and Drug Abuse Patient Records regulations: The Federal rules restrict any use of the information to criminally investigate or prosecute any alcohol or drug abuse patient.[facility] the event this information is protected by the Federal Confidentiality of Alcohol and Drug Abuse Patient Records regulations: The Federal rules restrict any use of the information to criminally investigate or prosecute any alcohol or drug abuse patient.[facility] Center[facility] the event this information is protected by the Federal Confidentiality of Alcohol and Drug Abuse Patient Records regulations: The Federal rules restrict any use of the information to criminally investigate or prosecute any alcohol or drug abuse patient.[facility] Center[facility] the event this information is protected by the Federal Confidentiality of Alcohol and Drug Abuse Patient Records regulations: The Federal rules restrict any use of the information to criminally investigate or prosecute any alcohol or drug abuse patient.[facility] Center[facility] the event this information is protected by the Federal Confidentiality of Alcohol and Drug Abuse Patient Records regulations: The Federal rules restrict any use of the information to criminally investigate or prosecute any alcohol or drug abuse patient.[facility] Center[facility] the event this information is protected by the Federal Confidentiality of Alcohol and Drug Abuse Patient Records regulations: The Federal rules restrict any use of the information to criminally investigate or prosecute any alcohol or drug abuse patient.[facility] Center[facility] the event this information is protected by the Federal Confidentiality of Alcohol and Drug Abuse Patient Records regulations: The Federal rules restrict any use of the information to criminally investigate or prosecute any alcohol or drug abuse patient.[facility] Care Teams (unrecognized sec tion and content) Team Status: Active Member Role Status Dates Chetan RonquilloFIRSTHEALTHMD Bailey Primary Care Provider Bev ctalex Team Status: Inactive Member Role Status Dates Chetan Ronquillo[facility]) MD Primary Care Provider Active Start: January 222023 End: January 22, 2024 Ryland Kaminski DO Emergency Provider Active St art: January 22, 2024 End: January 22, 2024 Dope Pourer Relationship Specialty Start Date End Date Wil Goetz PCP - General Family Practice 04/03/17 Team Status: Inactive Member Role Status Dates Chetan Dan ([facility]) , Primary Care Provider Bev Shultz , PROVIDER ENROLLMENT SPECIALIST- Emergency Provider Active Dope Pourer Relationship Specialty Start Date End Date Wil Goetz [address] [place] [address] PCP - General Family Medicine 09/12/23 Dope Pourer Relationship Specialty Start Date End Date BárbaraWil moore [address] [place] [address] PCP - General Family Medicine 09/12/23 Dope Pourer Relationship Specialty Start Date End Date BárbaraWil moore [address] [place] [address] PCP - General Family Medicine 09/12/23 Dope Pourer Relationship Specialty Start Date End Date Wil Goetz [address] [place] [address] PCP - General Family Medicine 09/12/23 Dope Pourer Relationship Specialty Start Date End Date Wil Goetz [address] [place] [address] PCP - General Family Medicine 09/12/23 Dope Pourer Relationship Specialty Start Date End Date Wil Goetz [address] [place] [address] PCP - General Family Medicine 09/12/23 Dope Pourer Relationship Specialty Start Date End Date BárbaraWil moore [address] [place] [address] PCP - General Family Medicine 09/12/23 Dope Pourer Relationship Specialty Start Date End Date Wil Goetz [address] [place] [address] PCP - General Family Medicine 09/12/23 Dope Pourer Relationship Specialty Start Date End Date Wil Goetz [address] [place] [address] PCP - General Family Medicine 09/12/23 Dope Pourer Relationship Specialty Start Date End Date Wil Goetz [address] [place] [address] PCP - General Family Medicine 09/12/23 Dope Pourer Relationship Specialty Start Date End Date Wil Goetz [address] [place] [address] PCP - General Family Medicine 09/12/23 Dope Pourer Relationship Specialty Start Date End Date Wil Goetz [address] [place] [address] PCP - General Family Medicine 09/12/23 Dope Pourer Relationship Specialty Start Date End Date Chetan Dan MD [address] [place] [address] PCP - General Family Medicine 06/08/24 Dope Pourer Relationship Specialty Start Date End Date Wil Goetz [address] [place] [address] PCP - General Family Medicine 09/12/23 06/07/24 Dope Pourer Relationship Specialty Start Date End Date Chetan Dan MD [address] [place] [address] PCP - General Family Medicine 06/08/24 Dope Pourer Relationship Specialty Start Date End Date Wil Goetz [address] [place] [address] PCP - General Family Medicine 09/12/23 06/07/24 Chetan Dan MD [address] [place] [address] PCP - General Family Medicine 06/08/24 Dope Pourer Relationship Specialty Start Date End Date Chetan Dan MD [address] [place] [address] PCP - General Family Medicine 06/08/24 Dope Pourer Relationship Specialty Start Date End Date Chetan Dan MD [address] [place] [address] PCP - General Family Medicine 06/08/24 Dope Pourer Relationship Specialty Start Date End Date Chetan Dan MD [address] [place] [address] PCP - General Family Medicine 06/08/24 Dope Pourer Relationship Specialty Start Date End Date Chetan Dan MD [address] [place] [address] PCP - General Family Medicine 06/08/24 Dope Pourer Relationship Specialty Start Date End Date Chetan Dan MD [address] [place] [address] PCP - General Family Medicine 06/08/24 Dope Pourer Relationship Specialty Start Date End Date Chetan Dan MD [address] [place] [address] PCP - General Family Medicine 06/08/24 Dope Pourer Relationship Specialty Start Date End Date Chetan Dan MD [address] [place] [address] PCP - General Family Medicine 06/08/24 REASON [...] (HCC) Procedures CONSULT TO GASTROENTEROLOGY OFFICE/OUTPATIENT [facility] MDM 60-74 MINUTES Piter Meneses, [address] [place] [address] Referral ID Status Reason Start Date Expiration Date V isits Requested Visits Authorized [id number] Closed PCP Requested Referral 09/12/2023 09/11/2024 1 1 Reason Comments Crohns Specialty Diagnoses / Procedures Referred By Contac t Referred To Contact Gastroenterology Diagnoses Crohn's disease of small intestine with other complication (HCC) Procedures CONSULT TO GASTROENTEROLOGY OFFICE/OUTPATIENT [facility] 60-74 MINUTES Reyna Anton APRN.AIRCRAFT ENGINE CYLINDER MECHANIC [address] [place] [address] Referral ID Status Reason Start Date Expiration Date Visits Requested Visits Authorized [id number] Authorized PCP Requested Referral 09/16/2024 1 1 Reason Comments Established Patient Crohns Reason Comments Established Patient Chronic Hep C 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 CT Specialty Diagnoses / Procedures Referred By Contac t Referred To Contact CT IMAGING Diagnoses Crohn's disease of small and large intestines with complication (HCC) Procedures CT ENTEROGRAPHY W IVCON CT ABD & PELVIS W/CONTRAST Rusty Lopez MD [address] [place] [id number] Imaging [place] [address] Referral ID Status Reason Start Date Expiration Date V isits Requested Visits Authorized [id number] Closed Auto-Generat ed Referral Clearance Not Met - Admin/Chairm an/Director Advise to Postpone/Res chedule or Not Proceed 04/29/2024 05/29/2024 [address] Specialty Diagnoses / Procedures Referred By Contac t Referred To Contact Radiology / RADIO CT SCAN apartum Diagnoses Crohn's disease of both small and large intestine with complication (HCC) Procedures CT ABD & PELVIS W/CONTRAST CT ENTEROGRAPHY PREP Rusty Lopez MD [address] [place] [address] Scan [facility] [address] [place], [place] [address] Referral ID Status Reason Start Date Expiration Date V isits Requested Visits Authorized [id number] Closed Patient Cleared - Admin/Chairm an/Director advise to proceed or did not respond 05/19/2024 06/18/2024 1 1 Reason Comments 07.31.24 Cure Open VHR 3 hours los 2 Reason Comments Consult Reason Comments Crohns Reason Comments Hernia Specialty Diagnoses / Procedures Referred By Contac t Referred To Contact General Surgery Diagnoses Hernia Procedures CONSULT TO GENERAL SURGERY OFFICE/OUTPATIENT [facility] 60 MINUTES Reyna Anton, COMMERCIAL REAL ESTATE AGENT.AIRCRAFT ENGINE CYLINDER MECHANIC [address] [place] [address] Referral ID Status Reason Start Date Expiration Date V isits Requested Visits Authorized [id number] Closed PCP Requested Referral 05/14/2024 05/14/2025 1 1 Specialty Diagnoses / Procedures Referred By Contac t Referred To Contact Diagnoses Preoperative examination Ventral hernia without obstruction or gangrene Procedures REFER TO [facility]IVE [facility]IM[facility] OFFICE/OUTPATIENT [facility] MDM 60 MINUTES Renee Pearce, COMMERCIAL REAL ESTATE AGENT.AIRCRAFT ENGINE CYLINDER MECHANIC [address] [address] Referral ID Status Reason Start Date Expiration Date V isits Requested Visits Authorized [id number] Closed PCP Requested Referral 05/31/2024 05/31/2025 1 [...] BE BASED ON THE PRIMARY CLINICAL RECORDS. [facility] [employer] provides no warranty or guarantee of the accuracy or completeness of information in this document.
[2025-03-02] MEDS: LIDOCAINE/EPINEPHRINE/TETRACAINE 3 ML GEL.PF.APP TOPICAL (05:40)
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
== END 2025-03-02 06:57 | disposition home or self-care (01) ==
PROVIDERS: Emergency Provider Emergency Medicine
DX: S51.812A Laceration without foreign body of left forearm, initial encounter (principal); S00.83XA Contusion of other part of head, initial encounter; S39.012A Strain of muscle, fascia and tendon of lower back, initial encounter; Y04.0XXA Assault by unarmed brawl or fight, initial encounter; Z90.2 Acquired absence of lung [part of]; F17.200 Nicotine dependence, unspecified, uncomplicated
CPT/HCPCS: 12001; 99282

== ENCOUNTER 2025-06-20 13:43 | Emergency (ER) | payer OTHER, SELFPAY ==
--- OUTSIDE RECORDS SUMMARY | 2011-10-11 09:00 | XMS_ITS | Encounter Summary ---
Author Organization [facility] Address [address], [address] [place] [address] Care Team Providers Care Wheel Installer Name Role Phone Unavailable Primary Care Provider Unavailabl e Encounter Details Date Type Department Care Team (Late st Contact Info) Description 10/11/2011 8:00 AM EST Hospital Encounter [facility] Department [address] [place] [id number] [place], [place] [address] [id number] Social History Tobacco Use Types Packs/Day Years Used Date Smoking Tobacco: Every Day Cigarettes Alcohol Use Standard Drinks/Week Comments Not Asked 0 (1 standard drink = 0.6 oz pur e alcohol) Sex and Gender Information Value Date Recorded Sex Assigned at Not on file Legal Sex Male 9:25 AM EST Gender Identity Not on file Sexual Orientation Not on file documented as of this encounter Plan of Treatment Not on file documented as of this encounter Visit Diagnoses Not on filedocumented in this encounter
--- OUTSIDE RECORDS SUMMARY | 2025-06-06 04:27 | XMS_ITS ---
Author Organization [address] [place] [address] Care Team Providers Care Napper Fixer Name Role Phone CHETAN ROJAS Unavailable [phone] Social History Sex Assigned At : Social History Observation Description Sex Assigned At Male Encounters Encounter Location Date Provider Diagnosis [address] [place] [address] 06/06/2025 CHETAN ROJAS Plan Of Treatment No Information Progress Notes * ANGELITA MOMIN TDOB:1990 (35 yo M)Acc No.[id number]:06/06/2025 Patient: Roshan ARCHULETA ANGELITA Marley :1990 A ge:35 Y S ex:Male Phone: Address:[address] [place] [address] , [place], [address] * true * Date: Generated for Rasi farida/Lindyg/eTransmitting on: 0 06/20/2025 02:11 PM EDT
--- OUTSIDE RECORDS SUMMARY | 2025-06-08 04:10 | XMS_ITS ---
Author Organization [facility] Address [address] [place] [address] [place] [address] Care Team Providers Care Milk Sampler Name Role Phone CHETAN DAN Unavailable [phone] REASON FOR VISIT DISCUSS HIS ONGOING MEDICAL ISSUES Social History Sex Assigned At : Social History Observation Description Sex Assigned At Male Encounters Encounter Location Date Provider Diagnosis [facility] [address] [place] [address] 06/08/2025 CHETAN DAN Plan Of Treatment No Information Progress Notes * ANGELITA MOMIN TDOB:1990 (35 yo M)Acc No.[id number]:06/08/2025 Progress Notes Patient: ANGELITA GASPAR Provider: Radha Dan MD :1990 A ge:35 Y S ex:Male Date:06/08/2025 Phone: Address:[address] [place], [place] [id number] [facility]ured [facility] S[facility] BRYAN : No Subjective: * Chief Complaints: * 1 . DISCUSS HIS ONGOING MEDICAL ISSUES. * Medical History: Objective: * Vitals: Assessment: Plan: * Treatment: * Images: * Electronic signature of DALTON DAN MD on 06/20/2025 at 02:11 PM EDT Sign off status: Pending * Provider: Radha Dan MD Date: 06/08/2025 Generated for Printi ng/Faxing/eTransmitting on: 06/20/2025 02:11 PM EDT
[2025-06-20 13:50] VITALS: BP 160/100; PULSE 122; TEMP 36.6; BMI 38.5
--- OUTSIDE RECORDS SUMMARY | 2025-06-20 14:12 | XMS_ITS | Patient Health Record ---
Author Organization [facility] Address [address] [place] [address] [place] [address] Care Team Providers Care Manpower Development Specialist Manager Name Role Phone CHETAN ROJAS Unavailable [phone] Allergies No Known Allergies Reason For Referral No Information Medications Medication SIG (Take, Route, Frequency, Duration) Notes Start Date End Date Status Paxlovid (300/100) 20 x 150 MG & 10 x 100MG 3 tablets Orally Twice a day for 5 day(s) 11/11/2022 Not-Taking Ventolin HFA 108 (90 Base) MCG/ACT INHALE 1 PUFF BY MOUTH EVERY 4 HOURS NEEDED Inhalation every 4 hrs for 30 days Active Belsomra 10 MG 1 tablet at bedtime as needed Orally Once a day for 7 days 06/18/2021 Unknown Ondansetron HCl 8 MG 1 tablet as needed Orally Once a day for 30 day(s) Not-Taking ALPRAZolam 1 MG 1/2 to 1 tablet Orally up to three times a day if/as needed for breakthrough anxiety for 14 days OARRS reviewed. last RF 06/06/25. RF sent. thanks 06/20/2025 Active QUEtiapine Fumarate 200 MG 1 tablet at bedtime Oral Once a day for 30 day(s) Active Wellbutrin XL 300 MG 1 tablet in the morning Orally Once a day for 30 days Active Clindamycin HCl 300 MG 1 capsule Orally Four times a day Active Omeprazole 40 MG 1 capsule 30 minutes before morning meal Orally Once a day for 30 days 04/07/2024 Active droNABinol 5 MG 1 capsule 1 hour before bedtime as recommended by GI Oral Once a day for 30 days 08/11/2024 Active hydrOXYzine HCl 25 MG 1 tablet Q6 hours as needed for itch Orally up to every 6 hrs as needed for itch for 10 days Active Naloxone HCl 4 MG/0.1ML as directed Nasally Q 2 minutes for 30 days Active predniSONE 10 MG 5 tabs PO QD x 3 days, 4 tabs PO QD x 3 days, 3 tabs PO QD x 3 days, 2 tabs PO QD x 3 days, 1 tab PO QD x 3 days Orally Once a day for 15 days Active Albuterol Sulfate HFA 108 (90 Base) MCG/ACT 1 puff as needed Inhalation every 4 hrs for 30 days 10/15/2023 Active Social History Tobacco Use: Social History Observation Description Date Details (start date - stop date) Current Smoker NA - NA Sex Assigned At : Social History Observation Description Sex Assigned At Male Smoking Question Answer Notes Are you a: current smoker How many cigarettes a day do you smoke? 10-20 Tobacco Control (Standard) Question Answer Notes Tobacco use: Current smoker How many cigarettes a day do you smoke? 10-20 Problems Problem Type SNOMED Code ICD Code Onset Dates Problem Status W/U Status Risk Notes Problem 4381488 Crohn's disease of large intestine with complication (K50.119) Active confirmed Problem 47593518 ETOH abuse (F10.10) Active confirmed Problem 788325218 GERD without esophagitis (K21.9) Active confirmed Problem 198194987 Chronic hepatiti s C without hepatic coma (B18.2) Active confirmed Problem 21337410 Chronic bronchitis, unspecified chronic bronchitis type (J42) Active confirmed Encounters Encounter Location Date Provider Diagnosis [place] [address] [place] [address] 06/20/2025 CHETAN ROJAS Anxiety F41.9 ; Attention deficit hyperactivity disorder (ADHD), unspecified ADHD type F90.9 ; Neuropathic pain M79.2 ; Opioid dependence in remission F11.21 ; Crohn's disease of large intestine with complication K50.119 and Bipolar 1 disorder, depressed F31.9 [place] [address] [place] [address] 06/28/2024 CHETAN ROJAS Ventral hernia without obstruction or gangrene K43.9 ; Crohn's disease of large intestine with complication K50.119 ; ETOH abuse F10.10 ; Bronchitis J40 and Opioid dependence in remission F11.21 [place] [address] [place] [address] 07/06/2024 CHETAN ROJAS Ventral hernia without obstruction or gangrene K43.9 and Crohn's disease of large intestine with complication K50.119 [place] [place] [place] [address] 07/09/2024 CHETAN ROJAS Ventral hernia without obstruction or gangrene K43.9 [place] [place] [address] [place] [address] 07/13/2024 CHETAN ROJAS Ventral hernia without obstruction or gangrene K43.9 ; ETOH abuse F10.10 ; Neuropathic pain M79.2 ; Anxiety F41.9 ; Crohn's disease of large intestine with complication K50.119 ; Opioid dependence in remission F11.21 and Attention deficit hyperactivity disorder (ADHD), unspecified ADHD type F90.9 [place] [place] [address] [place] [address] 01/03/2025 CHETAN ROJAS Attention deficit hyperactivity disorder (ADHD), unspecified ADHD type F90.9 ; Anxiety F41.9 ; Neuropathic pain M79.2 and Opioid dependence in remission F11.21 [place] [place] [address] 02/21/2025 CHETAN ROJAS Attention deficit hyperactivity disorder (ADHD), unspecified ADHD type F90.9 ; Anxiety F41.9 and Opioid dependence in remission F11.21 [place] [place] [address] 03/04/2025 CHETAN ROJAS Anxiety F41.9 ; Opioid dependence in remission F11.21 ; Attention deficit hyperactivity disorder (ADHD), unspecified ADHD type F90.9 and Neuropathic pain M79.2 [address] [address] [place] [address] 03/18/2025 CHETAN ROJAS Anxiety F41.9 ; Neuropathic pain M79.2 ; Attention deficit hyperactivity disorder (ADHD), unspecified ADHD type F90.9 and Opioid dependence in remission F11.21 [facility] [address] [place] [address] 05/10/2025 CHETAN ROJAS Anxiety F41.9 ; Attention deficit hyperactivity disorder (ADHD), unspecified ADHD type F90.9 ; Opioid dependence in remission F11.21 ; Bipolar 1 disorder, depressed F31.9 and Neuropathic pain M79.2 [facility] [address] [place] [address] 05/26/2025 CHETAN ROJAS Anxiety F41.9 [facility] [address] [place] [address] 07/12/2024 CHETAN ROJAS [facility] [address] [place] [address] 07/21/2024 CHETAN ROJAS [facility] [address] [place] [address] 08/04/2024 CHETAN ROJAS [facility] [address] [place] [address] 08/04/2024 CHETAN ROJAS Attention deficit hyperactivity disorder (ADHD), unspecified ADHD type F90.9 ; Neuropathic pain M79.2 and Anxiety F41.9 [facility] [address] [place] [address] 08/06/2024 CHETAN ROJAS Attention deficit hyperactivity disorder (ADHD), unspecified ADHD type F90.9 ; Neuropathic pain M79.2 ; Anxiety F41.9 ; Bipolar 1 disorder, depressed F31.9 ; GERD without esophagitis K21.9 and Bronchitis J40 [facility] [address] [place] [address] 08/09/2024 CHETAN ROJAS [facility] [address] [place] [address] 08/18/2024 CHETAN ROJAS Anxiety F41.9 [facility] [address] [place] [address] 08/31/2024 CHETAN ROJAS Anxiety F41.9 [facility] [address] [place] [address] 09/08/2024 CHETAN ROJAS Attention deficit hyperactivity disorder (ADHD), unspecified ADHD type F90.9 and Neuropathic pain M79.2 [facility] [address] [place] [address] 09/10/2024 CHETAN ROJAS Anxiety F41.9 [facility] [address] [place] [address] 10/08/2024 CHETAN BOB Anxiety F41.9 [facility] [address] [place] [address] 10/21/2024 CHETAN BOB Anxiety F41.9 [facility] [address] [place] [address] 11/02/2024 CHETANEMILIA ROJAS Anxiety F41.9 [facility] [address] [place] [address] 11/15/2024 CHETANEMILIA ROJAS Anxiety F41.9 [facility] [address] [place] [address] 11/26/2024 CHETAN BOB Anxiety F41.9 [facility] [address] [place] [address] 12/09/2024 CHETAN ROJAS Neuropathic pain M79.2 and Anxiety F41.9 [facility] [address] [place] [address] 12/24/2024 CHETAN ROJAS [facility] [address] [place] [address] 01/04/2025 CHETAN ROJAS Attention deficit hyperactivity disorder (ADHD), unspecified ADHD type F90.9 [facility] [address] [place] [address] 01/10/2025 CHETAN ROJAS Anxiety F41.9 [facility] [address] [place] [address] 01/24/2025 CHETAN ROJAS [facility] [address] [place] [address] 01/24/2025 CHETAN ROJAS Anxiety F41.9 [facility] [address] [place] [address] 02/07/2025 CHETANEMILIA ROJAS Anxiety F41.9 [facility] [address] [place] [address] 02/18/2025 CHETAN ROJAS Anxiety F41.9 [facility] [address] [place] [address] 03/04/2025 CHETAN ROJAS [facility] [address] [place] [address] 03/04/2025 CHETAN ROJAS [facility] [address] [place] [address] 03/18/2025 CHETAN ROJAS [facility] [address] [place] [address] 03/31/2025 CHETAN ROJAS Anxiety F41.9 [facility] [address] [place] [address] 03/31/2025 CHETAN ROJAS [facility] [address] [place] [address] 04/13/2025 CHETAN ROJAS Anxiety F41.9 [facility] [address] [place] [address] 04/27/2025 CHETAN ROJAS Anxiety F41.9 [facility] [address] [place] [address] 05/23/2025 CHETAN ROJAS Anxiety F41.9 [facility] [address] [place] [address] 05/26/2025 CHETAN ROJAS [facility] [address] [place] [address] 06/06/2025 CHETAN ROJAS Assessments Encounter Date Diagnosis (ICD Code) Assessment Notes Treatment Notes Treatment Clinical Notes Section Notes 06/28/2024 Ventral hernia without obstruction or gangrene (ICD-10 - K43.9) pt scheduled at [facility] for PAT on 06/29 and ventral hernia repair surgery on 06/30 pt strongly urged to f/u with both appts as scheduled pt also advised of importance to admit to daily ETOH use to ensure ETOH protocol is ordered for his admission as well as reminding his physicians he is on suboxone for both anesthesia as well as post op pain control AGG pt U+A w/plan 06/28/2024 Crohn's disease of large intestine with complication (ICD-10 - K50.119) 07/06/2024 Ventral hernia without obstruction or gangrene (ICD-10 - K43.9) 07/06/2024 Crohn's disease of large intestine with complication (ICD-10 - K50.119) 07/09/2024 Ventral hernia without obstruction or gangrene (ICD-10 - K43.9) pt recently underwent abdominal surgery to repair a large ventral hernia pt's surgery was complicated by multiple adhesions and his post-op course was complicated by ileus vs SBO, necessitating NG tube and significantly prolonging his hospital stay 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 also complicated attempts at pain control pt was finally released 07/08/24 after a nine day hospital stay that was initially schedule for three pt's called requesting another letter be prepared for [employer] regarding pt's inability to work per pt's , pt's surgeon advised them that he would be unable to work for between 4-8 weeks however, this was before the surgery and it appears that both the surgery itself as well as the in-patient post-op period at least were more complicated than initially anticipated as such, we advised [facility] that the actual time pt will be unable to work will be determined in the future by pt's surgeon letter prepared as requested copy for chart faxed to [facility] as requested importance of f/u with pt's surgeon as scheduled was reiterated with patient and his AGG pt and U+A w/plan 07/13/2024 Ventral hernia without obstruction or gangrene (ICD-10 - K43.9) pt is home, s/p ventral hernia repair as expected pt has contacted us multiple times regarding poorly controlled post op pain and requesting opioids as pt was advised, face to face by me while he was still in the hospital, that only pt's surgical team knows the extent of his surgery and therefore the degree of disruption caused and the resulting degree of pain to be expected and what would be considered out of the expected norm and as such will be managing pt's post operative pain pt states he called the team at [facility] repeated yesterday and no one got back to me however, later in the day pt admitted that his surgeon actually did return his call and they spoke for over 20 minutes but pt characterized the conversation as a bullshit call we again reiterated to pt that his surgeon and the team will con't to manage his post operative pain pt admits to us that upon discharge pt was prescribed #120 xanax and #42 dilaudid 4mg tabs 07/13/2024 ETOH abuse (ICD-10 - F10.10) pt was on ETOH withdrawal protocol the entire 9 days he was in the hospital and says he remains ETOH free now x approx 2 weeks and is never starting back up 08/04/2024 Attention deficit hyperactivity disorder (ADHD), unspecified ADHD type (ICD-10 - F90.9) 09/08/2024 Attention deficit hyperactivity disorder (ADHD), unspecified ADHD type (ICD-10 - F90.9) 09/10/2024 Anxiety (ICD-10 - F41.9) 10/08/2024 Anxiety (ICD-10 - F41.9) 10/21/2024 Anxiety (ICD-10 - F41.9) 11/02/2024 Anxiety (ICD-10 - F41.9) 11/15/2024 Anxiety (ICD-10 - F41.9) 11/26/2024 Anxiety (ICD-10 - F41.9) 08/06/2024 Attention deficit hyperactivity disorder (ADHD), unspecified ADHD type (ICD-10 - F90.9) 08/18/2024 Anxiety (ICD-10 - F41.9) 08/31/2024 Anxiety (ICD-10 - F41.9) 12/09/2024 Neuropathic pain (ICD-10 - M79.2) 01/03/2025 Anxiety (ICD-10 - F41.9) 01/03/2025 Attention deficit hyperactivity disorder (ADHD), unspecified ADHD type (ICD-10 - F90.9) 01/04/2025 Attention deficit hyperactivity disorder (ADHD), unspecified ADHD type (ICD-10 - F90.9) 01/10/2025 Anxiety (ICD-10 - F41.9) 01/24/2025 Anxiety (ICD-10 - F41.9) 02/07/2025 Anxiety (ICD-10 - F41.9) 02/18/2025 Anxiety (ICD-10 - F41.9) 02/21/2025 Anxiety (ICD-10 - F41.9) pt's called last Friday02/18/25 and left TM requesting RF for alprazolam I came back to office later in the day to address RFs requests and OARRS was reviewed and RF sent however, pt contacted me this weekend to thank me for the RF but to advised me that his forgot to also ask for RF of his ADHD meds pt reports con't good symptoms control on 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 02/21/2025 Attention deficit hyperactivity disorder (ADHD), unspecified ADHD type (ICD-10 - F90.9) pt contacted on-call physician over the weekend requesting RF of adderall pt advised that due to 2-step authentication process scheduled meds cannot be RF'd away from office pt advised and understands that Rx would be RF'd Friday upon provider RTW OARRS reviewed and last RF was 01/04/25 RFs sent pt advised AGG pt U+A w/plan 03/04/2025 Anxiety (ICD-10 - F41.9) 03/04/2025 Opioid dependence in remission (ICD-10 - F11.21) 03/18/2025 Anxiety (ICD-10 - F41.9) OARRS reviewed last RF sent 03/06/25 next RF due approx 03/19/25 RF sent pt advised 03/31/2025 Anxiety (ICD-10 - F41.9) 04/13/2025 Anxiety (ICD-10 - F41.9) 04/27/2025 Anxiety (ICD-10 - F41.9) 05/10/2025 Anxiety (ICD-10 - F41.9) OARRS reviewed RF sent to be filled when timely note significant taper 03/18/2025 Neuropathic pain (ICD-10 - M79.2) OARRS reviewed last RF was 02/17/25 next RF due approx 03/20/25 RF sent pt advised 05/10/2025 Attention deficit hyperactivity disorder (ADHD), unspecified ADHD type (ICD-10 - F90.9) pt to call when RF due 05/23/2025 Anxiety (ICD-10 - F41.9) 05/26/2025 Anxiety (ICD-10 - F41.9) pt called the office requesting to speak with the doctor regarding an urgent matter evidently, pt was told next available TM was sometime in May and pt was scheduled then pt was called over lunch, no answer, left VM for pt to call back and let us know what we can do to help him pt returned our call again stating he needed to speak with me regarding an urgent matter as such, I returned pt's call again at 2:15 pm and this time pt answered TM visit was had 06/20/2025 Anxiety (ICD-10 - F41.9) pt previously stopped suboxone and adderall this was confirmed in our EMR today 06/20/2025 Attention deficit hyperactivity disorder (ADHD), unspecified ADHD type (ICD-10 - F90.9) pt previously on adderall BID has been off the med since 01/04/25 by pt's choice pt says he is doing well off the medicine 06/20/2025 Neuropathic pain (ICD-10 - M79.2) pt still on lyrica with last RF 06/06/25 03/18/2025 Attention deficit hyperactivity disorder (ADHD), unspecified ADHD type (ICD-10 - F90.9) evidently pt has decided to stop his adderall as he did he suboxone as when pt called for RFs he only requested alprazolam and lyrica we will respect pt's wishes as he is trying to cut down on my meds as he previously told me 05/10/2025 Opioid dependence in remission (ICD-10 - F11.21) pt remains opioid free per pt report 01/03/2025 Neuropathic pain (ICD-10 - M79.2) 03/04/2025 Attention deficit hyperactivity disorder (ADHD), unspecified ADHD type (ICD-10 - F90.9) 02/21/2025 Opioid dependence in remission (ICD-10 - F11.21) per pt reports he is doing well and remains opioid free and is still off suboxone pt congratulated and advised to call us if we can do anything for him 09/08/2024 Neuropathic pain (ICD-10 - M79.2) 08/04/2024 Neuropathic pain (ICD-10 - M79.2) 08/06/2024 Neuropathic pain (ICD-10 - M79.2) 12/09/2024 Anxiety (ICD-10 - F41.9) 07/13/2024 Neuropathic pain (ICD-10 - M79.2) pt called for his [place] RF OARRS was reviewed RF sent pt advised 06/28/2024 ETOH abuse (ICD-10 - F10.10) 06/28/2024 Bronchitis (ICD-10 - J40) 07/13/2024 Anxiety (ICD-10 - F41.9) pt requesting more xanax stating the #120 1mg Xanax he was given upon discharge was only for alcohol withdrawal so I still need my regualr daily dose refilled too however, we advised pt that he already underwent approx 2 weeks of ETOH withdrawal Tx at this point and currently has over 100 1 mg Xanax at home pt is advised to con't the Xanax taper as per [facility] discharge instructions but even at his usual dosage of alprazolam, the #120 he was given will last an entire month as such, we declined to RF his chronic dose despite pt's repeated demand for same pt became irate, angry and threatening regarding our refusal to prescribe more Xanax pt confirmed that he still had over 100 tabs but repeatedly stated these are only for alcohol detox 08/06/2024 Anxiety (ICD-10 - F41.9) 08/04/2024 Anxiety (ICD-10 - F41.9) 01/03/2025 Opioid dependence in remission (ICD-10 - F11.21) 03/18/2025 Opioid dependence in remission (ICD-10 - F11.21) pt remains opioid free per pt report and congratulated and encouraged 03/04/2025 Neuropathic pain (ICD-10 - M79.2) 05/10/2025 Bipolar 1 disorder, depressed (ICD-10 - F31.9) CCMs 06/20/2025 Opioid dependence in remission (ICD-10 - F11.21) pt remains opiod free per pt report pt previously on suboxone chronically pt stopped suboxone on his own last year after his abdominal hernia surgery per OARRS last RF of suboxone was 06/23/24 06/20/2025 Crohn's disease of large intestine with complication (ICD-10 - K50.119) pt with known Crohn's and is s/p remote hemicolectomy pt follows with Dr Rusty Lopez at [facility] pt advised to f/u there as scheduled 05/10/2025 Neuropathic pain (ICD-10 - M79.2) pt to call when RF needed 08/06/2024 Bipolar 1 disorder, depressed (ICD-10 - F31.9) 07/13/2024 Crohn's disease of large intestine with complication (ICD-10 - K50.119) pt is to f/u with Dr Lopez at [facility] as scheduled 06/28/2024 Opioid dependence in remission (ICD-10 - F11.21) 07/13/2024 Opioid dependence in remission (ICD-10 - F11.21) during one of pt's multiple texts and/or phone calls yesterday pt advised us that because I've been on suboxone for over 11 years the pain meds don't work on me and I need some perc 5s unfortunately, after being very proud of his 11 years off opioids, pt was given dilaudid and oxycontin along with ketamine for pain during his hospital stay pt is now demanding we RF more opioids for breakthrough we again advised pt that his surgical tream will be managing his post operative pain pt admits to us that his surgeon invited pt to RTC at [facility] for f/u for pain control but pt stated I ain't driving 3 hours up there so despite his [facility] surgeon's offer to RTC there for further pain control if/as needed, pt declined same 06/20/2025 Bipolar 1 disorder, depressed (ICD-10 - F31.9) pt remains on wellbutrin and QHS seroquel CCMs f/u with his counselor as scheduled pt remains on waiting list for new psychiatrist but denies any SI/HI/RT/H and say he is doing well pt's is and they are both loooking for to the of their first child together 08/06/2024 GERD without esophagitis (ICD-10 - K21.9) 08/06/2024 Bronchitis (ICD-10 - J40) 07/13/2024 Attention deficit hyperactivity disorder (ADHD), unspecified ADHD type (ICD-10 - F90.9) pt requested RF on ADHD meds OARRS was reviewed RFs sent pt advised 06/20/2025 Other later in day pt advised us that his previous complaints of N/V/hematemesis/chris alyssa/abdominal pain and distention/unexplai lala wt gain of over 100 lbs persist now with additional c/o non-healing laceration and fever. pt was previously advised that he needed to be seen and evaluated at ER abd pt agreed to be seen there but never followed up despite repeatedly promising to do so today pt's advised us that she will take him immedaitely to [facility] for his multiple issues 07/06/2024 Other pt currently in-patient at [facility] s/p ventral henia repair complicated by ileus vs SBO due to chronic Crohn's at his last TM visit pt previously requested a letter to [employer] for my food stamps pt requested that this letter just be mailed to me which was done at pt's request however, today pt's called from the hospital requesting the we fax the letter to [facility] immediately as such, a copy of the letter was faxed to [facility] at as requested at 6:48 pm pt's was advised 07/13/2024 Other pt was unhappy with our response to his multiple texts and calls to us yesterday pt was advised that our schedule was completely full but despite this Maik called patient twice, once around 9 am and again at about 3 pm and spoke with pt at length about his multiple issues and complaints unfortunately, pt stated I don't believe you were really busy and called Dr Patten a liar and accused him of treating me like a parasite pt was advised that we are disappointed to hear that he is dissatisfied with the care we have provided pt was reminded of the many, many times this office has bent over backwards for him the things I have personally observed s staff (Maik in particular) do for this patient are above and beyond what any medical staff anywhere would do and are too numerous to recount however, despite this, pt remains unhappy and dissatisfied with this office and as such we have advised him to f/u with his other PCP Dr Wil Goetz or Dr Satya Arzate at [facility] we will RF pt's chronic meds as needed until pt obtains an appt there or at the primary care physician of his choosing pt is advised that if he choses not to RTC at [facility] that he can call the 1-800 number on the back of his insurance card and request a list of primary care physicians local to him that accept his insurance as noted RFs were sent today and we will iglesia RF pt's chronic meds, as medically appropriate, until he establishes with a new PCP AGG pt U+A w/plan 01/03/2025 Other OARRS reviewed today pt's alprazolam was last RF'd 12/27/24 and taper continues next #14 day RF of alprazolam will be due approx 01/09/25 pt's last RF of lyrica was 12/12/24 and will be due for RF approx 01/10/25 pt's last RF of adderall was 09/10/24 pt says in interim he has been concentrating on sobriety now that he is off chronic suboxone and being able to con't on his alprazolam and lyrica all while trying to find a new psychiatrist and PCP pt reports being on adderall for over 20 years and really struggling since being off the med will RF adderall as discussed pt remains opioid free and off suboxone per pt report however, importance of pt finding a local Psychiatrist as well as a new PCP was again reiterated 03/04/2025 Other OARRS reviewed last RF sent 02/20/25 next RF due approx 03/06/25 RF sent pt advised 03/18/2025 Other pt understands that he needs to find both a local PCP and physiciatrist pt reports difficulty due to burning so many brideges in the past both pt and his have been advised that they need to call the 1-800 number on his insurance card to find local providers who accept his insurance and call to make appt we have promised pt we would continue his chronic meds until he establishes at both note: pt's alprazolam taper continues as pt was previously on 6mg a day and is now on less than 2mg 05/26/2025 Other pt was asked What's wrong? and pt answered A lot. How much time you got? pt reports he hasn't worked for over a year because he has been sick constantly pt reports an approx 70 lb unexplained weight gain pt states my stomach is a big as a beach ball and his limbs are real skinny pt also states he has been throwing up blood and shitting blood for months pt has never informed us of these symptoms not the chronicity of same obviously, these symptoms, if true, require immediate ER evaluation as such, pt was advised to report immediaterly to ER however, pt then advised me actual urgent issue was not the above-mentioned symptoms but instead his child support obligations pt states due to not working for over a year he was significantly in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
--- OUTSIDE RECORDS SUMMARY | 2025-06-20 14:12 | XMS_ITS | Patient Health Record ---
Author Organization [employer] (ac[employer]) es Address [address] [place] [address] Care Team Providers Care Wage And Salary Specialist Name Role Phone Geovanna Tamayo Primary Care Provider Allergies No Known Allergies Reason For Referral No Information Medications Medication SIG (Take, Route, Frequency, Duration) Notes Start Date End Date Status Suboxone 8-2 MG 1 film under the tongue and allow to dissolve Sublingual Once a day Currently titrating Suboxone down Active Ondansetron 4 MG 1 tablet on the tongue and allow to dissolve Orally three times a day (tid) as needed (prn); Duration: 15 days PRN 11/15/2020 Active ALPRAZolam 1 MG (Schedule IV Drug) TAKE 1 TABLET up to three times a day as needed for breakthrough anxiety Oral; Duration: 14 Active Amphetamine-Dextroamp hetamine 15 MG (Schedule II Drug) TAKE 1 TABLET BY MOUTH EVERY DAY IN THE EVENING Oral; Duration: 30 Active Lyrica 200 MG 1 capsule Orally three times a day; Duration: 30 days Active Amphetamine-Dextroamp het ER 25 MG (Schedule II Drug) TAKE 1 CAPSULE BY MOUTH ONCE DAILY IN THE MORNING Oral; Duration: 30 Active Pantoprazole Sodium 40 MG 1 tablet Orally Once a day; Duration: 30 day(s) 06/07/2021 Active Wellbutrin XL 300 MG 1 tablet in the morning Orally Once a day; Duration: 30 day(s) Active SEROquel XR 300 MG 1 tablet in the evening Orally Once a day; Duration: 30 day(s) Active Social History Sexual Hx: Question Answer Notes Had sex in the last 12 months (vaginal, oral, or anal)? Yes with Women only Use protection? No Have you ever had an STD? No Alcohol Screening: Question Answer Notes Did you have a drink containing alcohol in the p ast year? No Points 0 Interpretation Negative PRAPARE Question Answer Notes Date Completed/Updated: 06/07/2021 What is your current housing situation? I have h ousing Are you worried about losing your housing? No What is the highest level of school that you have finished? 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 Check all that apply I do not have problems meeting my needs Has lack of transportation k ept you from medical appointments, meetings, work or from getting things needed for daily living? No How often do you see or talk to people that you care about and feel close to? (For example: talking to friends on the phone, visiting friends or family, going to baptism or club meetings) More than 5 times a week How stressed are you? Stress is when someone feels tense, nervous, anxious, or cant sleep at night because their mind is troubled Somewhat In the past year have you sp ent more than 2 nights in a row in a long term, longterm, half-way center, or juvenile correctional facility? No Are you a refugee? No What country are you from? [place] Do you feel physically and e motionally safe where you currently live? Yes In the past year, have you b een afraid of your partner or ex-partner? No PRAPARE Score: 3 Problems Problem Type SNOMED Code ICD Code Onset Dates Problem Status W/U Status Risk Notes Problem Paranoid schizophrenia (07476689) Paranoid schizophrenia (F20.0) Active confirmed Problem Nausea (103075454) Nausea (R11.0) Active confirmed Problem Tobacco use (176090079) Tobacco use (Z72.0) Active confirmed Problem Bronchitis (02101754) Bronchitis (J40) Active confirmed Problem Depression (620479521) Depression (F32.9) Active confirmed Problem Bipolar 1 disorder (001993034) Bipolar 1 disorder (F31.9) Active confirmed Problem Hepatitis C (91075248) Hepatitis C (B19.20) Active confirmed Problem Tobacco abuse (3159325363) Tobacco abuse (Z72.0) Active confirmed Problem Chronic pain (41649798) Chronic pain (G89.29) Active confirmed Problem Muscle spasm (42476192) Muscle spasm (M62.838) Active confirmed Problem Neuropathy (727613465) Neuropathy (G62.9) Active confirmed Problem Diarrhea (08432511) Diarrhea (R19.7) Active confirmed Problem Anxiety state (058821139) Acute anxiety (F41.9) Active confirmed Problem Vomiting (513079050) Vomiting (R11.10) Active confirmed Problem Attention deficit hyperactivity disorder (070583800) ADHD (attention deficit hyperactivity disorder), combined type (F90.2) Active confirmed Problem Skin infection (66637850) Skin infection (L08.9) Active confirmed Problem Polysubstance abuse (855668529) Polysubstance abuse (F19.10) Active confirmed Problem Finger fracture (94639418) Finger fracture (S62.609A) Active confirmed Problem Toothache (79070673) Toothache (K08.89) Active confirmed Problem Hand eczema (426064038) Hand eczema (L30.9) Active confirmed Plan Of Treatment No Information Insurance Providers Payer Name Payer Address Payer Phone Subscriber Number Group Number Insured Name Patient Relationship to Insured Coverage Start Date Coverage End Date [facility] [address]. [address] CLAIMS DEPT [facility] [place] [address] [id number] MOMIN, ANGELITA Self - patient is the insured 9 zMEDICAID [employer] after [facility] [employer] [address] [place] [address] [id number] MOMINANGELITA MONTLAVO Self - patient is the insured 9 [employer]DENTAL [employer] 22 [address] [address] [place] [address] [id number] MOMINANGELITA MONTALVO Self - patient is the insured 0 zDental MEDICAID CFC after [employer] 22 [address] [place] [address] [id number] ANGELITA MOMIN Self - patient is the insured 0 Medical (General) History Medical History History ICD Code MULTIPLE PERSONALITY DISORDER BIPOLAR PARANOID SCHZIOPHRENIA Crohns disease hepatitis C Surgical History Surgery Date(Month/Year) TOTAL COLECTOMY ILEOSTOMY PNEUMOTHORAX Hospitalization History Reason Date(Month/Year) Crohn's exacerbation,C-diff-[facility] 07/2021 SURGERIES
--- NOTE | 2025-06-20 17:44 | ED.ABDPAIN1 ---
HPI - Abdominal Pain General Chief Complaint: Abdominal Pain Stated Complaint: VOMITING FEVER BLOOD IN STOOL Time Seen by Provider: 06/20/25 15:29 Source: patient Mode of arrival: walk-in Limitations: no limitations Related Data Home Medications �Medication �Instructions �Recorded �Confirmed albuterol sulfate 90 mcg/actuation 1 puff inhalation Q4H PRN 06/06/23 06/06/23 aerosol inhaler (Ventolin HFA) shortness of breath or wheezing alprazolam 0.5 mg tablet 1 mg PO QID 06/06/23 01/22/24 buprenorphine 8 mg-naloxone 2 mg 2 film sublingual DAILY 06/06/23 01/22/24 sublingual film dextroamphetamine-amphetamine 15 15 mg PO DAILY 06/06/23 01/22/24 mg tablet dextroamphetamine-amphetamine ER 25 mg PO DAILY 06/06/23 01/22/24 25 mg 24hr capsule,extend release dronabinol 5 mg capsule 5 mg PO DAILY 06/06/23 01/22/24 pregabalin 200 mg capsule 200 mg PO Q8H 06/06/23 01/22/24 Previous Rx's �Medication �Instructions �Recorded clindamycin HCl 150 mg capsule 450 mg (3 x 150 mg) PO TID 7 days 06/06/23 #63 caps Allergies Allergy/AdvReac Type Severity Reaction Status Date / Time No Known Drug Allergies Allergy Verified 06/20/25 13:50 PFSH PFSH Social History Smoking status: Current every day smoker Little interest or pleasure in doing things: not at all Feeling down, depressed, or hopeless: not at all Exam Constitutional Vital Signs, click to edit/add: Last Vital Signs Temp 98 F 06/20/25 13:50 Pulse 122 H 06/20/25 13:50 Resp 14 06/20/25 13:50 BP 160/100 H 06/20/25 13:50 O2 Del Method Room Air 06/20/25 13:50 Course Vital Signs Vital signs: Vital Signs Temperature 98 F 06/20/25 13:50 Pulse Rate 122 H 06/20/25 13:50 Respiratory Rate 14 06/20/25 13:50 Blood Pressure 160/100 H 06/20/25 13:50 Oxygen Delivery Method Room Air 06/20/25 13:50 Temperature 98 F 06/20/25 13:50 Pulse Rate 122 H 06/20/25 13:50 Respiratory Rate 14 06/20/25 13:50 Blood Pressure 160/100 H 06/20/25 13:50 Oxygen Delivery Method Room Air 06/20/25 13:50 MDM - Abdominal Pain MDM Narrative Medical decision making narrative: Patient left without being seen Discharge Plan Discharge Patient Disposition: Left Without Being Seen Discharge Date/Time: 06/20/25 15:38
== END 2025-06-20 15:38 | disposition left against medical advice (07) ==
PROVIDERS: Emergency Provider Student in an Organized Health Care Education/Training Program
DX: Z53.21 Procedure and treatment not carried out due to patient leaving prior to being seen by health care provider (principal)
CPT/HCPCS: 99281

== ENCOUNTER 2025-09-21 10:27 | Emergency (ER) | payer OTHER, SELFPAY ==
[2025-09-21 10:32] VITALS: BP 145/110; PULSE 94; TEMP 36.6; O2SAT 99; BMI 33.4
--- OUTSIDE RECORDS SUMMARY | 2025-09-21 10:40 | XMS_ITS | Clinical Summary ---
Author Organization [facility] Address [address] [place] [address] Care Team Providers Care Stack Yield Engineer Name Role Phone Unavailable Primary Care Provider Unavailabl e Social History Tobacco UseTypesPacks/DayYears UsedDateSmoking Tobacco: Never AssessedSex and Gender InformationValueDate RecordedSex Assigned at BirthNot on fileLegal Sex Male02/12/2023 8:13 PM EDTGender IdentityNot on fileSexual OrientationNot on file Last Filed Vital Signs Vital SignReadingTime TakenCommentsBlood Ukkfgxnk768/8208 12:00 PM EDT Pulse--Temperature--Respiratory Rate--Oxygen Saturation--Inhaled Oxygen Concentration--Aynyuf36.9 kg (176 lb 3.2 oz)07/31/2018 12:00 PM RCZLralvj922 cm (6' 2 )07/31/2018 12:00 PM EDTBody Mass Index22.6208 12:00 PM EDT Plan of Treatment Not on file Insurance * Guarantor: Earnest Hinton TypeRelation to PatientDate of BirthPhone Billing AddressPersonal/VypcxdLlyk1990 [address] [address]
--- OUTSIDE RECORDS SUMMARY | 2025-09-21 10:41 | XMS_ITS | Clinical Summary ---
Author Organization [facility] Address [address], [address] [place] [address] Care Team Providers Care Pad Extractor Tender Name Role Phone Yash Lopez MD Primary Care Provider [phone] Allergies No known active allergies Medications No known medications Active Problems ProblemNoted DateDiagnosed DateDepressionAnxietyBipolar 1 disorder Social History Tobacco UseTypesPacks/DayYears UsedDateSmoking Tobacco: Every DayCigarettes Alcohol UseStandard Drinks/WeekCommentsNot Asked0 (1 standard drink = 0.6 oz pure alcohol)Sex and Gender InformationValueDate RecordedSex Assigned at Not on fileLegal PckGysk7201/10/2013 9:25 AM ESTGender IdentityNot on fileSexual OrientationNot on file Last Filed Vital Signs Vital SignReadingTime TakenCommentsBlood Thupwgxs542/7801 2:05 PM EST Ycctj4393 2:05 PM VWPJjzjrpmtndf59.6 ??C (97.9 ??F)12/19/2011 2:05 PM ESTRespiratory Rate--Oxygen Saturation--Inhaled Oxygen Concentration--Fjspql20.8 kg (176 lb)12/19/2011 2:05 PM EKPPtadkv527.4 cm (6' 1 )12/19/2011 2:05 PM EST Body Mass Index23.22012/19/2011 2:05 PM EST Plan of Treatment Not on file Insurance [address] [facility] [address] [place] [address] * Guarantor: Earnest HintonAccount TypeRelation to PatientDate of BirthPhoneBilling AddressPersonal/BrmoruPnsh1990 [address] [facility] [address] [place] [address] Care Teams Team MemberRelationshipSpecialtyStart DateEnd Date Yash Lopez MD [address] [place] [address] PCP - GeneralFamily Medicine04/01/17
--- OUTSIDE RECORDS SUMMARY | 2025-09-21 10:41 | XMS_ITS | Clinical Summary ---
Author Organization [facility] Address [address] [place] [address] Care Team Providers Care Gate Technician Name Role Phone Dante Dan MD Primary Care Provider Allergies Active AllergyReactionsCriticalityNoted EokjTobvbaweMbzbgzlyvbeScqu78/18/2020 GzvxwgcrwoGphotjnt36/19/2018Propoxyphene HclRash,Mxngrps2102/05/2010 facial flushing, blurred vision Iodinated Contrast BtrhdObtrrthuotf59/21/2024 Pt sneezes several times after CT contrast, no itching. This is not an allergic reaction, just a intolerance.Pt also has other health conditions that may also be leading to these symptoms HucabfoiAikho90/03/2018 Medications * This document contains information received from the source organization and may not represent a complete record from that organization. MedicationSigDispense QuantityRefillsLast FilledStart DateEnd DateStatus eszopiclone (LUNESTA) 3 mg ORAL Tab Take 1 tablet by mouth at bedtime as needed. for insomnia. 30 tablet ctive Additional Information Patient not taking.Reason: Course of Therapy Completed, Reported on 06/29/2024 buprenorphine-naloxone (SUBOXONE) 8-2 mg film dissolve 1 film under the tongue twice a day06/28/2021ctive amphetamine-dextroamphetamine XR (ADDERALL XR) 25 mg 24 hr capsule Take by mouth every morning.06/22/2021ctive amphetamine-dextroamphetamine 15 mg tablet TAKE 1 TABLET BY MOUTH EVERY DAY IN THE QKHEMKG9606/22/2021ctive Pregabalin (LYRICA) 200 mg capsule Take 200 mg by mouth three times daily.07/06/2021ctive albuterol HFA (PROAIR HFA) 90 mcg/actuation inhaler 2 Puffs every 6 hours as needed for wheezing/shortness of breath. Take as directed 1 Each 07/17/2021ctive omeprazole (PRILOSEC) 40 mg capsule 1 capsule 30 minutes before morning meal Orally Once a day for 30 days09/27/2020 Active naloxone 4 mg/actuation nasal spray (NARCAN) Use 1 spray in one nostril as needed for overdose. May repeat every 2 to 3 min in alternating nostrils until medical assistance is available 2 Each 07/08/2024 5:35 PM EDT07/08/2024ctive valproic acid (DEPAKENE) 250 mg capsule Take 1 capsule by mouth twice a day for 1 week then transition to 1 capsule before sleep for 1 week. 21 capsule 07/08/2024 5:35 PM EDT07/08/2024ctive Active Problems Patient Care Coordination No te Formatting of this note migh t be different from the original. Indication for Surgery: ventral hernia repair Important/Relevant PMH/PSH: OUD on suboxone, Bipolar T1, AUD, Nicotine abuse, HCV, GERD Preoperative Hospital Course: Patient s/p ventral hernia repair Airway Difficulty: no, Grade I view with DL, ETT 7.0 and blade 4 Difficult Central Access: N/A Recent ECHO: no echo on file Code Status: full code Chronological List of Surgeries and Major Events (Diagnosis): 06/30 s/p incisional ventral hernia repair with SHRUTI and left transversus muscle release Major Events within past 24 hours AMET called for CIWA of 35 with no response to Valium and concern for inadequate pain management. Transferred to SICU. A/P of Major Active Problems (excluding routine care and common problems): Neuro: OUD on suboxone, alcohol use disorder, Bipolar T1 Increasing agitation after precedex held overnight Now wants to leave AMA - Continue CIWA protocol - multimodal pain management. Dilaudid HEAD LOADER 0/0.2/6/10. Patient utilized 19 out of 93 demand boluses in the last 4 hours. Xanax 1 mg QID PRN IV Dilaudid 0.4mg q2h prn breakthrough pain Lyrica 200 mg TID Robaxin IV 1g q8h PO Dilaudid 2-4mg q3h prn. - Continue ketamine gtt @ 0.4mg/kg/hr with 0.2mg/kg bolus to achieve adequate analgesia. - Home meds: buprenorphine-naloxone 8-2 mg film BID and lyrica 200 mg TID at home - PDMP verified - appreciate APMS recs CV: No active issues - Maintain MAP > 65 Resp: Nicotine use disorder - maintaining adequate saturations on NC GI: HCV, GERD, s/p incisional ventral hernia repair with SHRUTI and left transversus muscle release - NPO for now. - [address], monitor output Renal/FEN: Scr, UOP stable - Monitor UOP and replete electrolyte as needed Heme: Acute Blood Loss Anemia - Monitor H&H and s/s of bleeding - Transfuse for hemoglobin < 7 - Transfuse with products as needed. - continue lovenox ppx ID: - Continue periop antibiotics as indicated WBC stable - no issues Endo: No pertinent endo history Nutrition: NPO Daily Plan Summary and To Dos/Watch: Adequate pain management Barriers to transfer out of ICU: Ketamine gtt Disposition: SICU ProblemNoted DateDiagnosed DateOpioid zcynnxuqgr74/05/2024enzodiazepine withdrawal without dfnoxhvzxequ19/05/2024lcohol withdrawal syndrome without thxykaabgemt86/05/2024enzodiazepine gsccdsafma61/05/2024lcohol use disorder, moderate, palsbcvbij59/05/2024Nicotine use disorder, F17.Incisional hernia without obstruction or rkybciov45/31/2024ost-operative pain06/30/2024 Nicotine abuse06/29/2024 Assessment & Plan (06/29/2024 12:40 PM EDT): Assessment: current 0.5 ppd for five years ETOH abuse06/29/2024 Assessment & Plan (06/29/2024 12:41 PM EDT): Assessment: states 4-5 shots per day Denies history of DT's Obesity, Class II, BMI 35-39.9006/02/2024 Assessment & Plan (06/29/2024 12:03 PM EDT): Assessment: diet and exercise encouraged BMI 36 Clostridioides difficile tiqkebdha35/17/2021ttention deficit hyperactivity disorder (ADHD)07/15/2021Gastroesophageal reflux mcmdjqn2207/15/2021 Assessment & Plan (06/29/2024 12:02 PM EDT): Assessment: managed with med, stable Follows up with PCP and GI Opioid dgsnpabzpq63/15/2021 Assessment & Plan (06/29/2024 12:03 PM EDT): Assessment: daily suboxone Moderate protein-calorie iozfesjjbczg88/15/2021ipolar 1 bfiwtonr95/09/2016 Trtswhj4311/06/2015 Overview (11/06/2015): Using xanax PRN Will hold oral medication given the above presentation (can be restarted when he tolerates PO). HCV (hepatitis C virus)09/06/2012 Overview (09/06/2012): [id number] Unfavorable Genotype: C/T [id number] Unfavorable Genotype: T/G Plan Quantitative HCV LFTs INR Assessment & Plan (06/29/2024 12:39 PM EDT): Assessment: follows hepatology States resolved Abnormal ECG07/20/2012Crohn's pdqeufu7603/21/2010 Overview (11/06/2015): s/p total colectomy and iliorectal anastomosis 02/07 with h/o recurrent flares thereafter (refractory to steroids, pentasa and cholestyramine, responded to Remicade but med stopped after an episode ofgram negative sepsis) Plan F/u CORS recs Surgery vs po pred will depend if stricture is fibrous vs inflammatory S/P dfokbsnyp09/21/2010 Assessment & Plan (06/29/2024 12:39 PM EDT): Assessment: s/p reversal S/P ffnlknfih32/21/2010 Resolved Problems ProblemNoted DateDiagnosed DateResolved DateMalnutrition of mild degree /rohn's disease, acute/Severe dehydration SBO (small bowel obstruction) Overview (11/06/2015): - CT : bowl obstruction with transition point at the LLQ -NPO -IVF -pain control -Phenergen for n/v -for flex sig -f/u CORS UBZYMCR22 Overview (11/06/2015): 25 year old male with a history of Crohn's presents with SBO Aetiology : fibrinous vs inflammatory Generalized painSyncope Overview (09/06/2012): DD includes Vasovagal syncope related to pain Plan Telemetry Echo Pain control Utox Loose nhiygg98 Overview (09/06/2012): Consider Small Bowel Overgrowth given refractory course and surgical history (it does not appear empiric abx have been tried) Plan CMV CDiff Stool Culture Stool O/P Stool guiaic IVF Am team to decide on steroids, abx etc Abdominal pain Overview (09/06/2012): Worsening of Chronic Pain States this is not similar to his previous crohns flares CTE in July no active inflammation Sigmoidoscopy at that time poor prep, EGD showed gastritis not H Pylori Known HCV Reports high pain tolerance, previous notes suspect narcotic abuse Plan Amylase Lipase Lactate RUQ US KUB Remaining plan per loose stool Kcbrinsrw96 Social History Tobacco UseTypesPacks/DayYears UsedDateSmoking Tobacco: Every DayCigarettes0.55 Smokeless Tobacco: Never Tobacco Cessation:Ready to Q uit: Not Asked; Counseling Given: Not Answered Alcohol UseStandard Drinks/WeekCommentsYes0 (1 standard drink = 0.6 oz pure alcohol)4-5 shots per dayAHC UtilitiesAnswerDate RecordedIn the past 12 months has the Financetesetudes, gas, oil, or water company threatened to shut off services in your home?No07/01/2024Hunger Vital SignAnswerDate RecordedWithin the past 12 months, you worried that your food would run out before you got the money to buy more.Never true07/01/2024Within the past 12 months, the food you bought just didn't last and you didn't have money to get more.Never true07/01/2024RAPARE - TransportationAnswerDate RecordedIn the past 12 months, has lack of transportation kept you from medical appointments or from getting medications?No 07/01/2024In the past 12 months, has lack of transportation kept you from meetings, work, or from getting things needed for daily living?No07/01/2024 Housing Stability Vital SignAnswerDate RecordedIn the last 12 months, was there a time when you were not able to pay the mortgage or rent on time?No07/01/2024 Number of Places Lived in the Last YearNot on file07/01/2024In the last 12 months, was there a time when you did not have a steady place to sleep or slept in ashelter (including now)?No07/01/2024rea Deprivation IndexAnswerDate RecordedNational Score (1-100), lower number is lower aflz549712/19/2022State Score (1-10), lower number is lower riskNot on file12/19/2022ata from: https://www.neighborhoodatlas.medicine.[facility].edu/. Last address used for dlgysaohbbk[address]12/19/2022Sex and Gender InformationValueDate RecordedSex Assigned at BirthNot on fileLegal UmwLsdd61/02/2012 8:28 AM EST Gender FbrbllfzEyym27/09/2020 4:07 PM ESTSexual OrientationNot on file Last Filed Vital Signs Vital SignReadingTime TakenCommentsBlood Whfrcrhc192/9107/19/2024 9:50 AM EDT Rivjt934007/19/2024 9:50 AM HDRRbkbjauklhq74.1 ??C (96.9 ??F)07/19/2024 9:50 AM EDTRespiratory Fqyc550207/19/2024 9:50 AM EDTOxygen Icmorpfxkr96%07/08/2024 7:42 PM EDTInhaled Oxygen Concentration--Drzpuh126.2 kg (265 lb)07/19/2024 9:50 AM BVNZmbsnz209 cm (6' 2 )07/19/2024 9:50 AM EDTBody Mass Index34.02007/19/2024 9:50 AM EDT Plan of Treatment Health MaintenanceDue DateLast DoneCommentsDepression Dckxwlkzs88/12/2009 DTaP,Tdap,Td Vaccine (1 - Tdap)2010Hepatitis A Vaccine (1 of 2 - Risk 2- dose series)2010Hepatitis B Vaccine (1 of 3 - 19+ 3-dose series)2010 Pneumococcal Vaccine (1 of 2 - PCV)2010HPV Vaccine (1 - 3-dose SCDM series)2018Covid-19 Vaccine (1 - season)2025Influenza Vaccine (#1)2025HIV WmdqewpcfTkmoaeqsw90/21/2024, 09/12/2023, 07/16/2021, Additional history existsHepatitis C ShqfcfwxpBgtivdwgb00/30/2024, 05/21/2024, 05/21/2024, Additional history exists Medical Devices ImplantedTypeAreaManufacturerDevice IdentifierShelf Expiration DateModel / Serial / LotMesh Prolene Square Flat [id number] Surgical Knit Nonabsorbable Nonreactive - [id number] Implanted:Qty: 1 on [facility]30/20[facility] at [facility]MeshN/A: AbdomenCARLTON AND [id number]/28/2029PML / / UCBAUJ Procedures Procedure NamePriorityDate/TimeAssociated DiagnosisCommentsHIV 1/2 COMBO WITH REFLEX TO QWMMHEVYRTQEQZJLuahyts23/21/2024 3:13 PM EDT History of latent tuberculosis HEPATITIS C ANTIBODY IA WITH KENALJJHLQMUCwmdtlr57/21/2024 3:13 PM EDT Crohn's disease of small and large intestines with complication (HCC) from Last 3 Months or Most Recently Relevant to Health Maintenance Results * HIV 1/2 COMBO WITH REFLEX TO DIFFERENTIATION (05/21/2024 3:13 PM EDT)Component ValueRef RangeTest MethodAnalysis TimePerformed AtPathologist SignatureHIV 12 Combo (Ag/Ab)KrupyxylgruXrpifystxmn19/22/2024 1:51 PM EDTCO[facility] LABHIV-1/2 AB (Confirmatory)05/22/2024 1:51 PM EDTCO[facility] LABComment:Test not indicated.HIV Fcefinwkjcmfvn77/22/2024 1:51 PM EDT [facility] LABComment: No evidence of HIV-1 or HIV-2 infection. Should recent infection be suspected, repeat testing may be considered 2-3 weeks after this draw. [place] Rev. Code 3701.243(E): This information has been disclosed to you from confidential records protected from disclosure by state law. ??You shall make no further disclosure of this information without the specific, written, and informed release of the individual to whom it pertains or as otherwise permitted by state law. A general authorization for the release of medical or other information is not sufficient for the purpose of the release of HIV test results or diagnoses. Specimen (Source)Anatomical Location / LateralityCollection Method / Volume Collection TimeReceived TimeBloodBLOOD SPECIMEN / UnknownVenipuncture / Unknown 05/21/2024 3:13 PM EDT05/21/2024 3:13 PM EDT Narrative Authorizing ProviderResult TypeResult StatusWendfela Dan MDLABORATORY Final ResultPerforming OrganizationAddressCity/State/ZIP CodePhone Number [facility] [address] [address], * (ABNORMAL) HEPATITIS C ANTIBODY IA WITH CONFIRMATION (05/21/2024 3:13 PM EDT) ComponentValueRef RangeTest MethodAnalysis TimePerformed AtPathologist SignatureHep C Antibody IAPositive(A)Tdriuczm39/23/2024 12:36 PM EDTCO[facility] LABSpecimen (Source)Anatomical Location / Laterality Collection Method / VolumeCollection TimeReceived TimeBloodBLOOD SPECIMEN / UnknownVenipuncture / Apmlnbv9305/21/2024 3:13 PM EDT05/21/2024 3:13 PM EDT Narrative [facility] - 05/23/2024 12:36 PM EDT Confirmation with Hepatitis C RNA has been ordered and charged. Authorizing ProviderResult TypeResult StatusBret Bev Lopez MDLABORATORYFinal ResultPerforming OrganizationAddressCity/State/ZIP CodePhone Number [facility] [address] [facility] [place] [address], from Last 3 Months or Most Recently Relevant to Health Maintenance Advance Directives * Full Code (Latest Code Status on File) Date ActivatedDate InactivatedComments07/15/2021 3:11 AM07/17/2021 5:17 PMQuestion AnswerCommentsFull Code Order Discussed With:* Patient Care Teams Team MemberRelationshipSpecialtyStart DateEnd Date Dante Dan MD [address] [place] [address] PCP - GeneralFamily Medicine06/08/24
--- NOTE | 2025-09-21 10:48 | XR_ITS ---
The [address] [address] Patient Name: ANGELITA MOMIN MRN: [id number] date: 1990 Sex: M Assigned Patient Location: ER Current Patient Location: ER Accession/Order Number: [id number] Exam Date: 09/21/2025 11:20 Report Date: 09/21/2025 12:12 At the request of: ASHVIN RIVERA MD Procedure: XR thoracic spine 2V CLINICAL DATA: Pain at the upper and lower back for the past 2 days after lifting lawnmower. Pain radiates down both legs. THORACIC SPINE - 2 views COMPARISON: None AP and lateral views were obtained. There is subtle dextroscoliotic curvature. The pedicles are intact. No acute fractures or displacement are seen. There is radiopaque density projecting over the anterior mid thoracic spine on the lateral views however it is not seen on the AP view for localization. There are no other paraspinal soft tissue abnormalities. XR/XR thoracic spine 2V IMPRESSION: SUBTLE SCOLIOSIS. NO ACUTE BONY FINDINGS. LUMBAR SPINE - 2 views COMPARISON: None AP and lateral views were obtained. No fracture or displacement is seen. The disc spaces are maintained. There is no significant hypertrophy. The SI joints are intact. No paraspinal soft tissue abnormalities are noted. IMPRESSION: NO ACUTE BONY FINDINGS. Impression dictated by: Lana Khan M.D. 09/21/2025 12:12 PM Dictation Location: [place] [address] Electronically authenticated by: [id number] Y Date: 09/21/2025 12:12
--- NOTE | 2025-09-21 10:48 | XR_ITS ---
The [address] [address] Patient Name: ANGELITA MOMIN MRN: [id number] date: 1990 Sex: M Assigned Patient Location: ER Current Patient Location: ER Accession/Order Number: [id number] Exam Date: 09/21/2025 11:20 Report Date: 09/21/2025 12:12 At the request of: ASHVIN RIVERA MD Procedure: XR thoracic spine 2V CLINICAL DATA: Pain at the upper and lower back for the past 2 days after lifting lawnmower. Pain radiates down both legs. THORACIC SPINE - 2 views COMPARISON: None AP and lateral views were obtained. There is subtle dextroscoliotic curvature. The pedicles are intact. No acute fractures or displacement are seen. There is radiopaque density projecting over the anterior mid thoracic spine on the lateral views however it is not seen on the AP view for localization. There are no other paraspinal soft tissue abnormalities. XR/XR lumbar spine 2-3V IMPRESSION: SUBTLE SCOLIOSIS. NO ACUTE BONY FINDINGS. LUMBAR SPINE - 2 views COMPARISON: None AP and lateral views were obtained. No fracture or displacement is seen. The disc spaces are maintained. There is no significant hypertrophy. The SI joints are intact. No paraspinal soft tissue abnormalities are noted. IMPRESSION: NO ACUTE BONY FINDINGS. Impression dictated by: Lana Khan M.D. 09/21/2025 12:12 PM Dictation Location: [place] [address] Electronically authenticated by: [id number] Y Date: 09/21/2025 12:12
--- NOTE | 2025-09-21 10:49 | ED.GENADUL1 ---
HPI HPI - General Adult General Chief complaint: Back Pain/Injury Stated complaint: back/leg pain injury Time Seen by Provider: 09/21/25 10:43 Source: patient Mode of arrival: walk-in Limitations: no limitations History of Present Illness HPI narrative: 35-year-old male presents to the emergency department for lower back and upper back pain. 2 days ago he lifted a heavy item multiple times and he feels like he strained his back. The pain goes down into both legs. No weakness or numbness. It hurts more to move. He did not fall. Related Data Home Medications ?Medication ?Instructions ?Recorded ?Confirmed albuterol sulfate 90 mcg/actuation 1 puff inhalation Q4H PRN 06/06/23 06/06/23 aerosol inhaler (Ventolin HFA) shortness of breath or wheezing alprazolam 0.5 mg tablet 1 mg PO QID 06/06/23 01/22/24 buprenorphine 8 mg-naloxone 2 mg 2 film sublingual DAILY 06/06/23 01/22/24 sublingual film dextroamphetamine-amphetamine 15 15 mg PO DAILY 06/06/23 01/22/24 mg tablet dextroamphetamine-amphetamine ER 25 mg PO DAILY 06/06/23 01/22/24 25 mg 24hr capsule,extend release dronabinol 5 mg capsule 5 mg PO DAILY 06/06/23 01/22/24 pregabalin 200 mg capsule 200 mg PO Q8H 06/06/23 01/22/24 Previous Rx's ?Medication ?Instructions ?Recorded clindamycin HCl 150 mg capsule 450 mg (3 x 150 mg) PO TID 7 days 06/06/23 #63 caps ibuprofen 800 mg tablet 800 mg PO Q8H PRN pain #20 tabs 09/21/25 methocarbamol 750 mg tablet 750 mg PO Q6H PRN pain #20 tabs 09/21/25 Allergies Allergy/AdvReac Type Severity Reaction Status Date / Time No Known Drug Allergies Allergy Verified 06/20/25 13:50 Opioid HPI Opioid Management Most Recent Opioid Data: Last Pain Scale 7 Today, 11:25 Last MAR Pain Assessment Today, 11:25 Review of Systems ROS Narrative A ten point review of systems is negative except as noted above. PFSH PFSH Social History Smoking status: Current every day smoker Little interest or pleasure in doing things: not at all Feeling down, depressed, or hopeless: not at all Exam Narrative Exam Narrative: Nurses note and vital signs reviewed General:The patient appears in no apparent distress.Patient is sitting upright on the cart. Skin:Warm, dry, no pallor noted.There is no rash noted. Head:Normocephalic, atraumatic Eye: Normal conjunctiva, no drainage Ears, Nose, Mouth, and Throat: oral mucosa is moist. Nares patent. Cardiovascular:Regular Rate and Rhythm Respiratory:Patient is in no distress, no accessory muscle use, lungs are clear to auscultation, no wheezing, rales or rhonchi Back: His back is examined. There is no bruise rash or abrasion. He has no focal area of tenderness to palpation. He points to the lumbar area in the upper thoracic area to indicate areas of pain GI: Soft and nontender Musculoskeletal: The patient has no evidence of calf tenderness, no pitting edema, symmetrical pulses noted bilaterally Neurological: Awake alert and oriented. Motor strength intact in his lower extremities. Psychiatric:Cooperative Constitutional Vital Signs, click to edit/add: Last Vital Signs Temp 97.8 F 09/21/25 10:32 Pulse 94 H 09/21/25 10:32 Resp 18 09/21/25 10:32 BP 145/110 H 09/21/25 10:32 Pulse Ox 99 09/21/25 10:32 O2 Del Method Room Air 09/21/25 10:32 Course Vital Signs Vital signs: Vital Signs Temperature 97.8 F 09/21/25 10:32 Pulse Rate 94 H 09/21/25 10:32 Respiratory Rate 18 09/21/25 10:32 Blood Pressure 145/110 H 09/21/25 10:32 Pulse Oximetry 99 09/21/25 10:32 Oxygen Delivery Method Room Air 09/21/25 10:32 Temperature 97.8 F 09/21/25 10:32 Pulse Rate 94 H 09/21/25 10:32 Respiratory Rate 18 09/21/25 10:32 Blood Pressure 145/110 H 09/21/25 10:32 Pulse Oximetry 99 09/21/25 10:32 Oxygen Delivery Method Room Air 09/21/25 10:32 Medical Decision Making [facility] Narrative Medical decision making narrative: X-ray showed no acute findings and he is feeling improved with IM Toradol and Norflex. He was given a work note for today and prescribed ibuprofen and Robaxin. Treatment diagnosis and follow-up were discussed with the patient. Differential Diagnosis Differential Diagnosis: Muscle strain, fracture, degenerative disc disease Imaging Data Thoracic and lumbar spine x-rays: Radiologist's impression: ITS Impressions Lumbar Spine X-Ray 09/21/25 10:48 IMPRESSION: SUBTLE SCOLIOSIS. NO ACUTE BONY FINDINGS. LUMBAR SPINE - 2 views COMPARISON: None AP and lateral views were obtained. No fracture or displacement is seen. The disc spaces are maintained. There is no significant hypertrophy. The SI joints are intact. No paraspinal soft tissue abnormalities are noted. IMPRESSION: NO ACUTE BONY FINDINGS. Impression dictated by: Lana Khan M.D. 09/21/2025 12:12 PM Dictation Location: [place] Electronically authenticated by: [id number] Y Date: 09/21/2025 12:12 Thoracic Spine X-Ray 09/21/25 10:48 IMPRESSION: SUBTLE SCOLIOSIS. NO ACUTE BONY FINDINGS. LUMBAR SPINE - 2 views COMPARISON: None AP and lateral views were obtained. No fracture or displacement is seen. The disc spaces are maintained. There is no significant hypertrophy. The SI joints are intact. No paraspinal soft tissue abnormalities are noted. IMPRESSION: NO ACUTE BONY FINDINGS. Impression dictated by: Lana Khan M.D. 09/21/2025 12:12 PM Dictation Location: [place] Electronically authenticated by: [id number] Y Date: 09/21/2025 12:12 Discharge Plan Discharge Chief Complaint: Back Pain/Injury Clinical Impression: Low back strain Qualifiers: Encounter type: initial encounter Qualified Code(s): S39.012A - Strain of muscle, fascia and tendon of lower back, initial encounter Patient Disposition: Home, Self-Care Time of Disposition Decision: 12:33 Condition: Good Mode of Transportation: Private Vehicle Prescriptions / Home Meds: New ibuprofen 800 mg tablet 800 mg PO Q8H PRN (Reason: pain) Qty: 20 0RF methocarbamol 750 mg tablet 750 mg PO Q6H PRN (Reason: pain) Qty: 20 0RF No Action albuterol sulfate [Ventolin HFA] 90 mcg/actuation HFA aerosol inhaler 1 puff INHALATION Q4H PRN (Reason: shortness of breath or wheezing) alprazolam 0.5 mg tablet 1 mg PO QID buprenorphine-naloxone 8-2 mg film 2 film sublingual DAILY dextroamphetamine-amphetamine 15 mg tablet 15 mg PO DAILY dextroamphetamine-amphetamine 25 mg capsule,extended release 24hr 25 mg PO DAILY Rx Instructions: HS dronabinol 5 mg capsule 5 mg PO DAILY pregabalin 200 mg capsule 200 mg PO Q8H clindamycin HCl 150 mg capsule 450 mg PO TID 7 Days Qty: 63 0RF Print Language: Ukrainian Instructions: Low Back Strain (ED) Referrals: CHETAN ROJAS MD [Primary Care Provider] - 1 week
--- OUTSIDE RECORDS SUMMARY | 2025-09-21 10:50 | XMS_ITS | CCD ---
Author Organization [facility] Care Team Providers Care Solvent Recoverer Name Role Phone No, Physician Unavailable Unavailable [...] Unavailable JODI, DR LEE Consulting Unavailable Bob ([facility]), MD Chetan Kendrick Primary Care Provi mateo Car[place], [facility]- Rosi Carlson Emergency Provider [phone] Wil Goetz Primary Care Provider PITER MENESES Referring Unavailable WIL GOETZ Primary Care Unavailable Bob ([facility])MD Chetan Primary Care Provi mateo DO Ryland Kaminski Emergency Provider Bob ([facility])Chetan Primary Care Unava ilable Ryland Kaminski Attending Unavailable Ryland Kaminski Admitting Unavailable [facility] Primary Care Provider Bob LEWIS, [facility] Primary Care Provider [facility] Primary Care Provider [facility] Primary Care Unavailable ADOLFO BALLARD Attending Unavailable CHARLEEN SILVER Attending Unavailable [facility] Unavaila ble [facility] Primary Care Unavailable LASHNER, RUSTY A Referring Unavailable [facility] Primary Care Unavailable LASHNER, RUSTY A Referring Unavailable LASHNER, RUSTY A Attending Unavailable [facility] Primary Care Unavailable REYNA ANTON Referring Unavailable PITER MENESES Attending Unavailable [facility] Primary Care Unavailable ADOLFO BALLARD Admitting Unavailable [facility] Primary Care Unavailable ADOLFO BALLARD Attending Unavailable [facility] Primary Care Unavailable REYNA ANTON Attending Unavailable PITER MENESES Referring Unavailable [facility] Primary Care Unavailable REYNA ANTON Attending Unavailable [facility] Primary Care Unavailable LASHNER, RUSTY A Referring Unavailable [facility] Primary Care Unavailable ARGENISHNER, RUSTY A Referring Unavailable RENEE PEARCE Referring Unavailable [facility] Care Unavaila RENEE Deleon Referring Unavailable [facility] Primary Care Unavaila JAYLEEN Hansen Attending Unavailable [facility] Primary Care Unavailable REYNA ANTON Referring Unavailable ADOLFO BALLARD Attending Unavailable [facility] Care Unavaila RENEE Deleon Referring Unavailable [facility] Primary Care Unavaila ble Allergies Allergy ClassificationReported Allergen(s)Allergy TypeDate of OnsetReaction(s) FacilityCephalosporins (antibiotic) (1 source)CefuroximeDrug Cvlnmma36-61-9566MisbnlirHskkhabwc ClinicOpioid Agonists (2 sources)PropoxypheneDrug Tsyqdub31-13-7895Kgst, Itching, HivesMorrow County Hospital Work Phone: Penicillins (antibiotic) (1 source)AmoxicillinDrug Fwaldam36-10-7717ReofEmifylhkt Clinic (2 sources)Aspirin / oxyCODONE Hydrochloride / oxyCODONE terephthalate; Translations: [OXYCODONE XEA-RFAZCSCGG-CKU]Drug Okftoqd22-35-2245KnucGcxelmgsf Clinic (20 sources)Propoxyphene; Translations: [PROPOXYPHENE HCL]Drug Earqnnb12-06-0878 Rash, ItchingMorrow County Hospital Work Phone: (5 sources)Aspirin / oxyCODONEDrug AllergyEleanor Slater Hospital [employer] Other (20 sources)Amoxicillin; Translations: [AMOXICILLIN]Drug Eiaqlpp68-82-5398Soqs [facility] (20 sources)Cefuroxime; Translations: [CEFUROXIME]Drug Zeoqrdg37-45-4103Dyhvfppz [facility] (20 sources)Morphine; Translations: [MORPHINE]Drug Vdkddbv49-28-1673Njuxm [facility] (1 source)AspirinDrug Sgjxjnl23-02-2719XiqrvrfbjAshtabula [facility] (1 source)oxyCODONEDrug Vpbmxgg81-45-7787FflhjpgueAshtabula General Hospital Repository (18 sources)Iodinated Contrast Media; Translations: [IODINATED CONTRAST MEDIA] Drug Uskkxdkhigu55-73-5503RiygojjnqhwHicvlzwxt Clinic Medications Current Medications MedicationDrug Class(es)DatesSig (Normalized)Sig (Original)[id number] 200 actuat albuterol 0.09 mg/actuat metered dose inhaler (20 sources)beta2-Adrenergic AgonistStart: 78-54-6364ibib 2 puff(s) by inhalation every six hours as needed for wheezingalbuterol HFA (PROAIR HFA) 90 mcg/actuation inhaler 2 Puffs every 6 hours as needed for wheezing/shortness of breath. Take as directed 1 Each 07/17/2021 ActiveStart: 05-23-2020 End: 35-30-5344Edmcktlhz Sulfate Discontinued 2 INH INHALATION Four times daily May 23, 2020 4:31pm September 17, 2020 9:55pmStart: 11-11-2018 End: 86-66-4025Xchnrxeyn Sulfate Discontinued 2 INH INHALATION EVERY 4-6 HOURS November 11, 2018 12:00am July 17, 2019 2:21pm administer with spacer Comment on above:2 Puffs every 6 hours as needed for wheezing/shortness of breath. Take as directedALPRAZolam 1 mg oral tablet (20 sources)BenzodiazepineStart: 07-08-2024 End: 05-74-7113lflj 1 tablet by mouth four times daily as needed for anxiety ALPRAZolam (XANAX) 1 mg tablet Indications: Alcohol withdrawal syndrome without complication (HCC) Take 1 tablet by mouth four times a day as needed for anxiety for up to 30 days. 120 tablet 07/08/2024 08/07/2024 ActiveStart: 27-88-8813erfw 1 mg by mouth four times dailyAlprazolam Active 1 MG PO Four times daily September 16, 2020 11:00pmStart: 12-03-2017 End: 14-54-7446dtsm 1 tablet by mouth three times dailyAlprazolam (Xanax) 2 mg Tablet Discontinued 2 MG PO Three times daily December 03, 2017 12:00am December 05, 2017 5:58pmStart: 11-13-2015 End: 31-02-6304tvzt 1 tablet by mouth every eight hours as neededALPRAZolam (XANAX) 1 mg tablet Take 1 tablet by mouth three times daily as needed for Anxiety. 21 tablet 0 11/13/2015 SuspendedXanax ActiveComment on above:Take 1 tablet by mouth three times daily as needed for Anxiety.amoxicillin 500 mg oral capsule (1 source)Penicillin-class AntibacterialStart: 2018 End: 76-29-7442pkbi 1 capsule by mouth three times dailyamoxicillin (AMOXIL) 500 MG capsule Indications: Acute otalgia, right Take 1 (one) capsule (500 mg total) by mouth 3 (three) times a day for 30 doses. 30 capsule 0 2018 05/22/2018 Activeamphetamine aspartate 3.75 mg / amphetamine sulfate 3.75 mg / dextroamphetamine saccharate 3.75 mg / dextroamphetamine sulfate 3.75 mg oral tablet (20 sources)Central Nervous System StimulantStart: 37-58-9512cgfe 1 tablet by mouth once daily in the eveningamphetamine-dextroamphetamine 15 mg tablet TAKE 1 TABLET BY MOUTH EVERY DAY IN THE EVENING 06/22/2021 ActiveStart: 09-17-2020 amphetamine-dextroamphetamine XR (ADDERALL XR) 25 mg 24 hr capsule Take by mouth every morning. 06/22/2021 ActiveStart: 09-17-2020 End: 69-98-4170yptz 1 tablet by mouth once dailyDextroamphetamine-Amphetamine (Adderall) 15 mg Tablet Discontinued 15 MG PO Daily September 16, 2020 11:00pm September 22, 2020 12:42pmStart: 06-23-2018 End: 20-49-4898myzy 15 mg by mouth once dailyDextroamphetamine-Amphetamine Discontinued 15 MG PO Daily June 22, 2018 11:00pm July 17, 20192:22pm Start: 04-28-2018 End: 97-78-9679cqxj 1 tablet by mouth twice dailyDextroamphetamine-Amphetamine (Adderall) 5 mg Tablet Discontinued 5 MG PO Twice daily April 27, 2018 11:00pm June 23, 2018 4:41pmStart: 04-28-2018 End: 88-51-7890ficb 1 tablet by mouth twice dailyDextroamphetamine-Amphetamine (Adderall) 10 mg Tablet Discontinued 10 MG PO Twice daily April 27, 2018 11:00pm July 17, 2019 2:22pmComment on above:Take by mouth every morning.TAKE 1 TABLET BY MOUTH EVERY DAY IN THE EVENINGamphetamine aspartate 2.5 mg / amphetamine sulfate 2.5 mg / dextroamphetamine saccharate 2.5 mg / de xtroamphetamine sulfate 2.5 mg oral tablet (2 sources)Central Nervous System StimulantStart: 10-28-0460ttxaakgmkrnmgozbf- amphetamine (ADDERALL) 10 mg tabletStart: 41-92-6990vwwlojhtoyfgapkzu- amphetamine (ADDERALL XR) 15 MG 24 hr capsulebismuth subcitrate 140 mg / metroNIDAZOLE 125 mg / tetracycline hydrochloride 125 mg oral capsule (10 sources)Nitroimidazole Antimicrobial, Tetracycline-class AntimicrobialStart: 58-71-8876vsvx 3 capsules by mouth every six hoursPylera 140-125-125 MG 3 capsules after meals and at bedtime Orally Four times a day for 10 day(s) Oct, Activebuprenorphine 8 mg / naloxone 2 mg sublingual film (20 sources)Partial Opioid Agonist, Opioid AntagonistStart: 07-05-2018 buprenorphine-naloxone (SUBOXONE) 8-2 mg film dissolve 1 film under the tongue twice a day 06/28/2021 ActiveSuboxone ActiveComment on above:dissolve 1 film under the tongue twice a daydiclofenac sodium 75 mg delayed release oral tablet (1 source)Nonsteroidal Anti-inflammatory DrugStart: 2018 End: 54-19-8359gjkj 1 tablet by mouth twice daily at mealtimediclofenac sodium (VOLTAREN) 75 MG EC tablet Indications: Acute otalgia, right Take 1 (one) tablet (75 mg total) by mouth 2 (two) times a day with meals for 7 days. 14 tablet 0 2018 05/19/2018 Activeenteric contrast (will be provided with radiology test) (4 sources)Start: 05-14-2024 End: 59-89-2798kcfydel contrast (will be provided with radiology test) For CT ENTEROGRAPHY W IVCON order Administer, As Directed One Time Only, via Oral, Rectal, both Oral and Rectal, Enteric Tube, Stoma or Indwelling Catheter, Enteric Contrast as designated per enteric contrast guidelines. 1 Each 0 05/14/2024 05/15/2024 ActiveStart: 09-29-2023 End: 18-77-3691ufdvmuu contrast (will be provided with radiology test) For CT ENTEROGRAPHY W IVCON order Administer, As Directed One Time Only, via Oral, Rectal, both Oral and Rectal, Enteric Tube, Stoma or Indwelling Catheter, Enteric Contrast as designated per enteric contrast guidelines. 1 Each 0 09/29/2023 09/30/2023 ActiveComment on above:For CT ENTEROGRAPHY W IVCON order Administer, As Directed One Time Only, via Oral, Rectal, both Oral and Rectal, Enteric Tube, Stoma or Indwelling Catheter, Enteric Contrast as designated per entericcontrast guidelines.eszopiclone 3 mg oral tablet (20 sources)Start: 96-24-1689mlxo 1 tablet by mouth every twenty-four hours as neededeszopiclone (LUNESTA) 3 mg ORAL Tab Take 1 tablet by mouth at bedtime as needed. for insomnia. 30 tablet 5 05/17/2011 ActiveComment on above:Take 1 tablet by mouth at bedtime as needed. for insomnia.HYDROmorphone hydrochloride 2 mg oral tablet (7 sources)Opioid AgonistStart: 07-16-2024 End: 56-84-1668qzyn 1 tablet by mouth every six hours as neededHYDROmorphone 2 mg tablet Indications: Post-operative pain Take 1 tablet by mouth every 6 hours as needed for up to 3 days. Patient should start on July 16, 2024. 12 tablet 07/16/2024 07/19/2024 ActiveStart: 07-08-2024 End: 14-81-2840ksvz 1 tablet by mouth every three hours [...] 1 day. 32 tablet 0 07/08/2024 07/15/2024 Activeiv contrast (will be provided with radiology test) (4 sources)Start: 05-14-2024 End: 15-46-6819cy contrast (will be provided with radiology test) CT Enterography W Inject, intravenously, once for 1 dose.No IV access, insert saline lock prior to the beginning of sedation, infusion, injection ofimaging exam. Discontinue saline lock post exam. If Pt. has a central line or IVAD, may access for administration according to line specific nursing protocol. Once exam is complete flush line and de-access according to line specific nursing protocol in the CT contrast administration guidelines link. 1 Each 0 05/14/2024 05/15/2024 ActiveStart: 09-29-2023 End: 03-64-6439lh contrast (will be provided with radiology test) CT Enterography W Inject, intravenously, once for 1 dose.No IV access, insert saline lock prior to the beginning of sedation, infusion, injection ofimaging exam. Discontinue saline lock post exam. If Pt. has a central line or IVAD, may access for administration according to line specific nursing protocol. Once exam is complete flush line and de-access according to line specific nursing protocol in the CT contrast administration guidelines link. 1 Each 0 09/29/2023 09/30/2023 ActiveComment on above:CT Enterography W Inject, intravenously, once for 1 [...] protocol in the CT contrast administration guidelines link.loperamide hydrochloride 2 mg oral capsule (2 sources)Opioid AgonistStart: 95-01-9889sgma 1 capsule by mouth every six hours as neededloperamide (IMODIUM) 2 mg cap(s) Take 1 capsule by mouth four times a day as needed. 360 capsule 5 06/08/2024 Activemeclizine hydrochloride 25 mg oral tablet (1 source)AntiemeticStart: 2018 End: 56-47-2452zhvz 1 tablet by mouth three times daily as needed for nausea meclizine (ANTIVERT) 25 mg tablet Indications: Acute otalgia, right Take 1 (one) tablet (25 mg total) by mouth 3 (three) times a day as needed for nausea. 21 tablet 0 2018 05/19/2018 Activenaloxone hydrochloride 40 mg/ml nasal spray (11 sources)Opioid Antagonistnaloxone 4 mg/actuation nasal spray (NARCAN) use as directed for opioid overdose symptoms if not already Rx'd by Dr Andre Boyd Q 2 minutes as directed for 30 days 0 ActiveComment on above:use as directed for opioid overdose symptoms if not already Rx'd by Dr Andre Boyd Q 2 minutes as di rected for 30 daysnaloxone 4 mg/actuation nasal spray (NARCAN) (12 sources)Start: 73-43-9620vfwbdncf 4 mg/actuation nasal spray (NARCAN) Use 1 spray in one nostril as needed for overdose. Mayrepeat every 2 to 3 min in alternating nostrils until medical assistance is available 2 Each 07/08/2024 ActiveStart: 93-17-6399fhikcmzs 4 mg/actuation nasal spray (NARCAN) Use 1 spray in one nostril as needed for overdose. Mayrepeat every 2 to 3 min in alternating nostrils until medical assistance is available 2 Each 0 07/08/2024 Active End: 42-59-5149mxukvnsi 4 mg/actuation nasal spray (NARCAN) use as directed for opioid overdose symptoms if not already Rx'd by Dr Hoy Nasally Q 2 minutes as directed for 30 days 0 06/02/2024 Discontinuednaloxone 4 mg/actuation nasal spray (NARCAN) use as directed for opioid overdose symptoms if not already Rx'd by Dr Powell Nasally Q 2 minutes as directed for 30 days 0 Activeondansetron 4 mg oral tablet (20 sources)Serotonin-3 Receptor AntagonistStart: 07-08-2024 End: 58-04-8451yatv 1 tablet by mouth every eight hours as neededondansetron (ZOFRAN) 4 mg tablet Take 1 tablet by mouth every 8 hours as needed for nausea/vomitingfor up to 10 days. 30 tablet 0 07/08/2024 07/18/2024 ActiveStart: 09-10-2020 End: 85-79-8241pati 4 mg by mouth three times dailyOndansetron Discontinued 4 MG PO Three times daily 9 September 09, 2020 11:00pm November 11, 2022 12:03pm Start: 16-97-6819qmks 1 tablet by mouth every twenty-four hoursZofran 4 MG 1 tablet Orally Once a day for 30 day(s) Jul, ActiveStart: 07-17-2019 End: 27-16-5706qqok 4 mg by mouth every eight hoursOndansetron Discontinued 4 MG PO Q8H July 16, 2019 11:00pm December 20, 2019 8:00pmStart: 06-23-2018 End: 43-69-4055adag 1 tablet by mouth every eight hoursOndansetron Hcl (Zofran) 4 mg tablet Discontinued 4 MG PO Q8H 15 5 June 22, 2018 11:00pm June 27, 2018 11:02pmStart: 12-03-2017 End: 65-33-9382fddb 1 tablet by mouth every eight hoursOndansetron (Zofran Odt) 4 mg Tablet,Disintegrating Discontinued 4 MG PO Q8H December 03, 2017 12:00am April 28, 2018 8:53pmStart: 11-21-2017 End: 40-98-0230orxljjrinid (ZOFRAN) injection 4 mg 4 mg, Intravenous, Once, Fri11/21/17 at 0720, For 1 dose Given11/21/2017 07:29 EST 4 mg End: 54-40-9024uxry 1 tablet by mouth once daily as neededondansetron (ZOFRAN) 8 mg tablet 1 tablet as needed Orally Once a day for 30 day(s) 0 06/02/2024 Dis continuedComment on above:1 tablet as needed Orally Once a day for 30 day(s) pregabalin 200 mg oral capsule (20 sources)Start: 23-37-4374iriq 1 capsule by mouth three times dailyPregabalin (LYRICA) 200 mg capsule Take 200 mg by mouth three times daily. 07/06/2021 ActiveComment on above:Take 200 mg by mouth three times daily.valproic acid 250 mg oral capsule (7 sources)Mood Stabilizer, Anti-epileptic AgentStart: 07-08-2024 End: 48-51-4901rajs 1 capsule by mouth twice dailyvalproic acid (DEPAKENE) 250 mg capsule Take 1 capsule by mouth twice a day for 1 week then transition to 1 capsule before sleep for 1 week. 21 capsule 07/08/2024 07/22/2024 Active Completed/Discontinued Medications MedicationDrug Class(es)DatesSig (Normalized)Sig (Original)acetaminophen 325 mg / HYDROcodone bitartrate 5 mg oral tablet (2 sources)Opioid AgonistStart: 10-19-2018 End: 27-60-6418fajl 1 tablet by mouth every six hoursHydrocodone-Acetaminophen (Milton) 5-325 mg Tablet Discontinued 1 TAB PO Every 6 hours October 19, 2018 12:00am November 10, 2018 11:42pmacetaminophen 325 mg / oxyCODONE hydrochloride 5 mg oral tablet (4 sources)Opioid AgonistStart: 12-05-2017 End: 98-21-7645bzhp 1 tablet by mouth every four hoursOxycodone-Acetaminophen Discontinued 1 TAB PO Q4H 42 7 December 05, 2017 December 12, 2017 12:04am Start: 12-03-2017 End: 21-46-7957aevm 1 tablet by mouth four times dailyOxycodone-Acetaminophen (Percocet) 10-325 mg Tablet Discontinued 1 TAB PO Four times daily December 03, 2017 12:00am July 05, 2018 8:57pmAlbuterol Sulfate (Ventolin Hfa) 90 mcg/actuation HFA aerosol inhaler (2 sources)Start: 10-19-2018 End: 98-42-5162Hsebbfkzd Sulfate (Ventolin Hfa) 90 mcg/actuation HFA aerosol inhaler Discontinued October 19, 2018 12:00am July 17, 2019 2:21pm ARIPiprazole 15 mg oral tablet (3 sources)Atypical AntipsychoticStart: 10-12-2018 End: 76-60-1794pfrx 1 tablet by mouth once dailyAripiprazole (Abilify) 15 mg Tablet Discontinued 15 MG PO Daily October 12, 2018 12:00am 2019 8:00pmStart: 96-82-9182XVFKnidrhzrp (ABILIFY) 10 MG tabletazithromycin 250 mg oral tablet (4 sources)Macrolide AntimicrobialStart: 10-19-2018 End: 99-32-8134vxbj 2 tablets by mouth once dailyAzithromycin (Zithromax) 250 mg tablet Discontinued 0 PO .COMPLEX October 19, 2018 12:00am November 10, 2018 11:42pm take 500 mg once daily for 3 daysB Complex-Vitamin C-Folic Acid 0.5 mg Tab (18 sources)Start: 07-24-2012 End: 74-90-0261wozv 1 tablet by mouth once dailyB Complex-Vitamin C-Folic Acid 0.5 mg Tab Take 1 tablet by mouth once daily. 30 tablet 0 DiscontinuedStart: 54-95-7100iwmy 1 tablet by mouth once dailyB Complex-Vitamin C-Folic Acid 0.5 mg Tab Take 1 tablet by mouth once daily. 30 tablet 0 07/24/2012ctiveComment on above:Take 1 tablet by mouth once daily.benzonatate 100 mg oral capsule (18 sources)Non-narcotic AntitussiveStart: 06-14-2021 End: 67-33-1336gqtq 1 capsule by mouth every eight hours as neededbenzonatate (TESSALON PERLE) 100 mg capsule Take 100 mg by mouth three times daily as needed. 0 06/14/2021 06/02/2024 DiscontinuedStart: 10-03-2019 End: 11-69-3094aors 1 capsule by mouth three times dailyBenzonatate (Tessalon Perles) 100 mg capsule Discontinued 100 MG PO Three times daily October 02, 2019 11:00pm December 20, 2019 8:00pmComment on above:Take 100 mg by mouth three times daily as needed.24 hr buPROPion hydrochloride 300 mg extended release oral tablet (20 sources)AminoketoneStart: 12-05-2019 End: 37-61-8324prot 1 tablet by mouth once daily in the morningbuPROPion XL (WELLBUTRIN XL) 300 mg 24 hr tablet 1 tablet in the morning Once a day Orally 30 day(s) 0 05/31/2021 06/29/2024 DiscontinuedWellbutrin ActiveComment on above:1 tablet in the morning Once a day Orally 30 day(s)cephalexin 500 mg oral capsule (4 sources)Cephalosporin AntibacterialStart: 11-11-2020 End: 31-94-3015thkx 1 capsule by mouth four times dailyCephalexin (Keflex) 500 mg capsule Discontinued 500 MG PO Four times daily 40 November 11, 2020 12 :00am October 31, 2021 9:30amStart: 09-02-2018 End: 33-68-3700cpmx 1 capsule by mouth four times dailyCephalexin (Keflex) 500 mg capsule Discontinued 500 MG PO Four times daily 40 September 01, 2018 1 1:00pm September 20, 2018 6:49pmclindamycin 300 mg oral capsule (2 sources)Lincosamide AntibacterialStart: 08-10-2020 End: 79-23-3002ldsi 300 mg by mouth three times dailyClindamycin Hcl Discontinued 300 MG PO Three times daily 30 August 09, 2020 11:00pm September 17, 2020 9:56pmdicyclomine hydrochloride 10 mg oral capsule (6 sources)AnticholinergicStart: 09-10-2020 End: 87-10-4701Vrzyownwfkl Discontinued 10 MG PO As Directed September 22, 2020 1:13pm January 31, 2021 7:36amStart: 06-23-2018 End: 31-38-2330gbmc 20 mg by mouth three times dailyDicyclomine Discontinued 20 MG PO Three times daily June 22, 2018 11:00pm July 17, 2019 2:22pm doxycycline hyclate 100 mg oral capsule (4 sources)Tetracycline-class DrugStart: 01-31-2021 End: 78-82-6230okky 100 mg by mouth twice dailyDoxycycline Hyclate Discontinued 100 MG PO Twice daily January 31, 2021 12:00am October 31, 2021 9:30am Start: 07-05-2018 End: 45-79-2324icbk 100 mg by mouth twice dailyDoxycycline Hyclate Discontinued 100 MG PO Twice daily 14 July 04, 2018 11:00pm July 11, 2018 11:02pm dronabinol 5 mg oral capsule (20 sources)CannabinoidStart: 09-17-2020 End: 42-02-6219rourdwftcb (MARINOL) 5 mg capsule as needed. 0 05/07/2021 06/29/2024 DiscontinuedComment on above:TAKE 1 CAPSULE in the evening or bedtime famotidine 20 mg oral tablet (2 sources)Histamine-2 Receptor AntagonistStart: 08-10-2020 End: 28-61-4713tgkm 1 tablet by mouth twice dailyFamotidine (Pepcid) 20 mg tablet Discontinued 20 MG PO Twice daily 10 August 09, 2020 11:00pmSeptember 22, 2020 1:12pmferrous sulfate 325 mg oral tablet (18 sources)Start: 05-17-2011 End: 38-94-1578mvue 1 tablet by mouth twice dailyFerrous Sulfate (IRON) 325 mg (65 mg iron) ORAL tablet Take 1 tablet by mouth twice daily. 200 tablet 5 05/17/2011 06/29/2024 DiscontinuedComment on above:Take 1 tablet by mouth twice daily.fexofenadine hydrochloride 60 mg oral tablet (1 source)Histamine-1 Receptor AntagonistStart: 05-21-2024 End: 76-03-8463bakymiyrpqai 60 mg tab(s) (JOHNATHON)hydrOXYzine hydrochloride 25 mg oral tablet (15 sources)Antihistamine End: 77-81-9576tczhDRDgmux HCl (ATARAX) 25 mg tablet 1 tablet Q6 hours as needed for itch Orally up to every 6 hrsas needed for itch for 10 days 0 06/02/2024 DiscontinuedComment on above:1 tablet Q6 hours as needed for itch Orally up to every 6 hrs as needed for itch for 10 dayslevoFLOXacin 750 mg oral tablet (2 sources)Quinolone AntimicrobialStart: 11-11-2018 End: 36-81-9904ddoe 1 tablet by mouth once dailyLevofloxacin (Levaquin) 750 mg tablet Discontinued 750 MG PO daily 5 November 11, 2018 12:00am July 17, 2019 2:22pm24 hr methylphenidate hydrochloride 18 mg extended release oral tablet (2 sources)Central Nervous System StimulantStart: 10-03-2019 End: 12-65-1301hxsx 18 mg by mouth once dailyMethylphenidate Hcl Discontinued 18 MG PO Daily October 02, 2019 11:00pm September 22, 2020 1:12pmNaltrexone (2 sources)Opioid AntagonistStart: 15-87-6234Dlkrkzqa Jan, 380 mgStart: 30-76-2828Rdxlnspr Jan, 380 mgnaproxen 500 mg oral tablet (2 sources)Nonsteroidal Anti-inflammatory DrugStart: 10-31-2021 End: 40-10-2068fsxe 1 tablet by mouth twice dailyNaproxen (Naprosyn) 500 mg tablet Discontinued 500 MG PO Twice daily October 31, 2021 10:35am November 11, 2022 12:03pmomeprazole 40 mg delayed release oral capsule (19 sources)Proton Pump InhibitorStart: 09-96-8693abrk 1 capsule by mouth twice daily before mealtimeOmeprazole 40 MG 1 capsule 20-3- minutes before meals Orally bid for 10 days Aug, Not-TakingStart: 63-30-0922klsd 1 capsule by mouth once dailyomeprazole (PRILOSEC) 40 mg capsule 1 capsule 30 minutes before morning meal Orally Once a day for 30 days 09/27/2020 Activepantoprazole 40 mg delayed release oral tablet (18 sources)Proton Pump InhibitorStart: 07-24-2012 End: 99-09-6282qvkj 1 tablet by mouth twice daily before mealtimepantoprazole 40 mg tablet Take 1 tablet by mouth twice daily before meals. 30 tablet 0 07/24/2012 06/29/2024 DiscontinuedComment on above:Take 1 tablet by mouth twice daily before meals.predniSONE 20 mg oral tablet (6 sources)Start: 01-31-2021 End: 36-27-5311omsi 40 mg by mouth once daily at mealtimePrednisone Discontinued 40 MG PO Daily January 31, 2021 12:00am November 11, 2022 12:03pm administer with food or milkStart: 09-18-2020 End: 21-37-0778cykj 60 mg by mouth once dailyPrednisone Discontinued 60 MG PO Daily 30 September 17, 2020 11:00pm September 22, 2020 1:13pmStart: 11-11-2018 End: 27-90-7721tpij 40 mg by mouth once daily in the morningPrednisone Discontinued 40 MG PO Every morning 10 November 11, 2018 12:00am July 17, 2019 2:22pm administer with food or milk1 ml promethazine hydrochloride 25 mg/ml injection (4 sources)PhenothiazineStart: 12-03-2017 End: 52-99-6133bbux 25 mg by mouth every six hoursPromethazine Discontinued 25 MG PO Q6H December 03, 2017 12:00am June 23, 2018 4:42pmStart: 12-03-2017 End: 45-12-2041Myutxlqmfkpt (Phenergan) 25 mg/mL Solution Discontinued 25 MG SOLUTION Once December 03, 2017 12:00am December 03, 2017 7:14pm24 hr QUEtiapine 300 mg extended release oral tablet (20 sources)Atypical AntipsychoticStart: 04-10-2021 End: 22-92-6695zfpg 1 tablet by mouth once daily at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 Platelet mean volume (Bld) [Entitic vol]11.9 fLNormal9.0-12.7CMercy [facility] on above:Order Comment: Specimen Type: BLOOD SPECIMENOrdering Facility: [facility] Address:[address] [place], [place] [address]Performed By: #### 66864-2 ####[facility] LABIA [id number] [place] [address] [place] Platelets (Bld) [#/Vol]164 10*3/qKBpeimw836-752OazmxrofhPremier Health [facility] on above:Order Comment: Specimen Type: BLOOD SPECIMENOrdering Facility: [facility] Address:[address] [place] [address] Performed By: #### 57449-6 ####[facility] LABIA [id number] [place] [address] [place] RBC (Bld) [#/Vol]5.03 10*6/uLNormal4.20-6.00[facility] on above:Order Comment: Specimen Type: BLOOD SPECIMENOrdering Facility: [facility] Address:[address] [place], [place] [address]Performed By: #### 40044-7 ####[facility] LABCLIA [id number] [place] [address] [place] AMERICAWBC (Bld) [#/Vol]7.46 10*3/uLNormal3.70-11.00[facility]aconess HospitalComment on above:Order Comment: Specimen Type: BLOOD SPECIMENOrdering Facility: [facility] Address:[address] [place], [place] [address]Performed By: #### 68765-1 ####[facility] LABCLIA [id number] [place] [address] [place] AMERICACONSULT PROGon 86-08-5369AYBPPYR PROGNHarrison Community HospitalMagnesium SerPl-mCncon 76-41-0135Autownnlw [Mass/Vol]2.0 mg/dLNormal1.7-2.3CGlenbeigh HospitalComment on above:Order Comment: Specimen Type: BLOOD SPECIMENOrdering Facility: [facility] Address:[address] [place], [place] [address]Performed By: #### 05854- 9, 2777-1, 85339-6 ####[facility] LABCLIA [id number], [place] [address] [place] AMERICANURSING PROGon 88-32-4409DRDGYCX PROGNormalProtestant Deaconess HospitalPhosphate SerPl-mCncon 15-93-1955Aqubaenvx [Mass/Vol]3.1 mg/dLNormal2.7-4.8CGlenbeigh Hospital Comment on above:Order Comment: Specimen Type: BLOOD SPECIMENOrdering Facility: [facility] Address:[address] [place] [address] Performed By: #### 05144-0, 2777-1, 96883-6 ####[facility] LABCLIA [id number] [place] [address] [place] AMERICATHERAPY NTon 44-95-3370XGKDRPG NTNormalCGlenbeigh HospitalBasaint elizabeth hebron metabolic 2000 panelon 53-02-8449Ggule gap [Moles/Vol]10 mmol/LNormal8-15 [facility] on above:Order Comment: Specimen Type: BLOOD SPECIMENOrdering Facility: [facility] Address:[address] [place], [place] [address]Performed By: #### 54356-5 ####[facility] LABCLIA [id number] [place] [address] [place] AMERICACalcium [Mass/Vol]7.1 mg/dLLow8.5-10.2CMercy Health St[facility] on above:Order Comment: Specimen Type: BLOOD SPECIMENOrdering Facility: [facility] Address:[address] [place] [address] Performed By: #### 17741-1 ####[facility] LABCLIA [id number] [place] [address] [place] Chloride [Moles/Vol]109 mmol/HAndj20-534AtyslblekPremier Health [facility] on above:Order Comment: Specimen Type: BLOOD SPECIMENOrdering Facility: [facility] Address:[address] [place], [place] [address]Performed By: #### 37329-1 ####[facility] LABCLIA [id number] [place] [address] [place] AMERICACO2 [Moles/Vol]24 mmol/FNlizyb31-04NcwlwalvlPremier Health [facility] on above:Order Comment: Specimen Type: BLOOD SPECIMENOrdering Facility: [facility] Address:[address] [place], [place] [address]Performed By: #### 49151-5 ####[facility] LABCLIA [id number] [place] [id number] [place] AMERICACreatinine [Mass/Vol]0.77 mg/dL Normal0.73-1.22[facility] on above:Order Comment: Specimen Type: BLOOD SPECIMENOrdering Facility: [facility] Address:[address] [place], [place] [address]Performed By: #### 01483-0 ####[facility] LABIA [id number] [place] [address] [place] AMERICACreatinine and Glomerular filtration rate.predicted panel (S/P/Bld)121 mL/min/1.73m???Normal>=60[facility] on above:Order Comment: Specimen Type: BLOOD SPECIMENOrdering Facility: [facility] Address:[address] [place], [place] [address]Result Comment: Estimated Glomerular Filtration Rate (eGFR) is calculated using the 2020 CKD-EPI creatinine equation. This equation utilizes serum creatinine, sex, and age as parameters. The creatinine assay has traceable calibration to isotope dilution-mass spectrometry. Refer to KDIGO guidelines for clinical interpretation. In patients with unstable renal function, e.g. those with acute kidney injury, the eGFR may not accurately reflect actual GFR.Performed By: #### 32068-7 ####[facility] LABIA [id number] [place] [address] [place] AMERICAGlucose [Mass/Vol]78 mg/wITlcimq64-55DszscyeyxPrem[facility] Health [facility] on above:Order Comment: Specimen Type: BLOOD SPECIMENOrdering Facility: [facility] Address:[address] [place], [place] [address]Result Comment: The [place] [employer] (ADA) provides guidance for cutoff values for fasting glucose and random glucose. The ADA defines fasting as no caloric intake for at least 8 hours. Fasting plasma glucose results between 100 to 125 mg/dL indicate increased risk for diabetes (prediabetes).Fasting plasma glucose results greater than or equal to 126 mg/dL meet the criteria for diagno sis of diabetes. In the absence of unequivocal hyperglycemia, results should be confirmed by repeattesting. In a patient with classic symptoms of hyperglycemia or hyperglycemic crisis, random plasmaglucose results greater than or equal to 200 mg/dL meet the criteria for diagnosis of diabetes.Reference: Standards of Medical Care in Diabetes 2016, [employer]. Diabetes Care. 2016.39(Suppl 1).Performed By: #### 73896-4 ####[facility] LABCLIA [id number] [place] [address] [place] AMERICAPotassium [Moles/Vol]2.8 mmol/LLow3.7-5.1CGlenbeigh Hospital Comment on above:Order Comment: Specimen Type: BLOOD SPECIMENOrdering Facility: [facility] Address:[address] [place] [address] Performed By: #### 58748-3 ####[facility] LABCLIA [id number] [place] [address] [place] Sodium [Moles/Vol]143 mmol/ODxqhbg515-312KwgnziglrPrem[facility] Health [facility] on above:Order Comment: Specimen Type: BLOOD SPECIMENOrdering Facility: [facility] Address:[address] [place], [place] [address]Performed By: #### 12691-4 ####[facility] LABIA [id number] [place] [address] [place] AMERICAUrea nitrogen [Mass/Vol]13 mg/dLNormal9-24Pro[facility]aconess HospitalComment on above:Order Comment: Specimen Type: BLOOD SPECIMENOrdering Facility: [facility] Address:[address] [place], [place] [address]Performed By: #### 87424- 2 ####[facility] LABIA [id number] [place] [address] [place] AMERICAAnion gap [Moles/Vol]16 mmol/L High8-15[facility] on above:Order Comment: Specimen Type: BLOOD SPECIMENOrdering Facility: [facility] Address:[address] [place], [place] [address]Performed By: #### 13523-1, 08601-4 ####[facility] LABIA [id number] [address] [place] [address] [place] AMERICACalcium [Mass/Vol]8.6 mg/dLNormal8.5-10.2CMercy Health St[facility] on above:Order Comment: Specimen Type: BLOOD SPECIMENOrdering Facility: [facility] Address:[address] [place], [place] [address]Performed By: #### 26564-3, 89763-9 ####[facility] LABCLIA [id number] [place] [address] [place] AMERICAChloride [Moles/Vol]101 mmol/MNowkhp75-521GqkofhqbbPremier Health [facility] on above:Order Comment: Specimen Type: BLOOD SPECIMENOrdering Facility: [facility] Address:[address] [place], [place] [address]Performed By: #### 51670-1, 48927-0 ####[facility] LABCLIA [id number] [place] [address] [place] AMERICACO2 [Moles/Vol]26 mmol/FJphzrv29-53DnimrgebaPremier Health [facility] on above:Order Comment: Specimen Type: BLOOD SPECIMENOrdering Facility: [facility] Address:[address] [place], [place] [address]Performed By: #### 58925-4, 68003-5 ####[facility] LABCLIA [id number] [place] [address] [place] AMERICACreatinine [Mass/Vol] 0.89 mg/dLNormal0.73-1.22[facility] on above:Order Comment: Specimen Type: BLOOD SPECIMENOrdering Facility: [facility] Address:[address] [place], [place] [address]Performed By: #### 77132- 2, 80499-6 ####[facility] LABCLIA [id number] [facility] [place] [address] [place] AMERICACreatinine and Glomerular filtration rate.predicted panel (S/P/Bld)116 mL/min/1.73m???Normal >=60[facility] on above:Order Comment: Specimen Type: BLOOD SPECIMENOrdering Facility: [facility] Address:[address] [place], [place] [address]Cpbxup Comment: Estimated Glomerular Filtration Rate (eGFR) is calculated using the 2020 CKD-EPI creatinine equation. This equation utilizes serum creatinine, sex, and age as parameters. The creatinine assay has traceable calibration to isotope dilution-mass spectrometry. Refer to KDIGO guidelines for clinical interpretation. In patients with unstable renal function, e.g. those with acute kidney injury, the eGFR may not accurately reflect actual GFR.Performed By: #### 84072-2, 43468-6 ####[facility] LABIA [id number] [place] [id number] [place] AMERICAGlucose [Mass/Vol]83 mg/jXRxhxyn62-00GkrxzpedlProtestant Deaconess Hospital Comment on above:Order Comment: Specimen Type: BLOOD SPECIMENOrdering Facility: [facility] Address:[address] [place], [place] [address]Result Comment: The [place] Diabetes [employer] (ADA) provides guidance for cutoff values for fasting glucose and random glucose. The ADA defines fasting as no caloric intake for at least 8 hours. Fasting plasma glucose results between 100 to 125 mg/dL indicate increased risk for diabetes (prediabetes).Fasting plasma glucose results greater than or equal to 126 mg/dL meet the criteria for diagno sis of diabetes. In the absence of unequivocal hyperglycemia, results should be confirmed by repeattesting. In a patient with classic symptoms of hyperglycemia or hyperglycemic crisis, random plasmaglucose results greater than or equal to 200 mg/dL meet the criteria for diagnosis of diabetes.Reference: Standards of Medical Care in Diabetes 2016, [place] [employer]. Diabetes Care. 2016.39(Suppl 1).Performed By: #### 46468-6, 55817-5 ####[facility] LABIA [id number] [place] [id number] [place] AMERICAPotassium [Moles/Vol]3.5 mmol/LLow3.7-5.1CMercy Health St[facility] on above:Order Comment: Specimen Type: BLOOD SPECIMENOrdering Facility: [facility] Address:[address] [place], [place] [address]Performed By: #### 63956-2, 56442-3 ####[facility] LABCLIA [id number] [place] [id number] [place] [facility] HOSPITALSodium [Moles/Vol]143 mmol/POsavpz153-237CiywkrfucProtestant Deaconess Hospital Comment on above:Order Comment: Specimen Type: BLOOD SPECIMENOrdering Facility: [facility] Address:[address] [place] [address] Performed By: #### 28780-4, 45709-5 ####[facility] LABIA [id number] [place] [address] [place] Urea nitrogen [Mass/Vol]15 mg/dLNormal9-24[facility]aconess HospitalComment on above:Order Comment: Specimen Type: BLOOD SPECIMENOrdering Facility: [facility] Address:[address] [place], [place] [address]Performed By: #### 89682-6, 51760-2 ####[facility] LABIA [id number] [place] [address] [place] AMERICACASE MANAGEMon 83-36-1204KREP MANAGEMNormalProtestant Deaconess HospitalCASE MANAGEMNormal Protestant Deaconess HospitalCB W Auto Differential panel (Bld)on 07-06-2024 Basophils (Bld) [#/Vol]0.04 10*3/uLNormal<0.11CMercy Health St. [facility] on above:Order Comment: Specimen Type: BLOOD SPECIMENOrdering Facility: [facility] Address:[address] [place] [address] Performed By: #### 17325-9 ####[facility] LABIA [id number] [place] [address] [place] Basophils/100 WBC (Bld)0.8 %NormalPremier Health Upper [facility] on above: Order Comment: Specimen Type: BLOOD SPECIMENOrdering Facility: [facility] Address:[address] [place], [place] [address]Performed By: #### 57055- 8 ####[facility] LABCLIA [id number] [place] [address] [place] AMERICADifferential cell count method Nom (Bld)AutoNormalCMercy Health St. [facility] on above:Order Comment: Specimen Type: BLOOD SPECIMENOrdering Facility: [facility] Address:[address] [place], [place] [address]Performed By: #### 45136-0 ####[facility] LABCLIA [id number] [place] [address] [place] AMERICAEosinophils (Bld) [#/Vol]0.42 10*3/uLNormal<0.46[facility] on above:Order Comment: Specimen Type: BLOOD SPECIMENOrdering Facility: [facility] Address:[address] [place], [place] [address]Performed By: #### 83882-8 ####[facility] LABIA [id number] [place] [address] [place] AMERICAEosinophils/100 WBC (Bld)7.9 % NormalPremier Health Upper [facility] on above:Order Comment: Specimen Type: BLOOD SPECIMENOrdering Facility: [facility] Address:[address] [place], [place] [address]Performed By: #### 25800-5 ####[facility] LABIA [id number] [place] [address] [place] AMERICAErythrocyte distribution width (RBC) [Ratio]13.5 %Normal 11.5-15.0[facility] on above:Order Comment: Specimen Type: BLOOD SPECIMENOrdering Facility: [facility] Address:[address] [place], [place] [address]Performed By: #### 63901-8 ####[facility] LABCLIA [id number] [place] [address] [place] AMERICAHematocrit (Bld) [Volume fraction]37.4 %Low39.0-51.0 [facility] on above:Order Comment: Specimen Type: BLOOD SPECIMENOrdering Facility: [facility] Address:[address] [place], [place] [address]Performed By: #### 78710-7 ####[facility] LABCLIA [id number] [place] [address] [place] AMERICAHemoglobin (Bld) [Mass/Vol]12.0 g/dLLow13.0-17.0[facility] on above:Order Comment: Specimen Type: BLOOD SPECIMENOrdering Facility: [facility] Address:[address] [place], [place] [address]Performed By: #### 16619-9 ####[facility] LABIA [id number] [place] [address] [place] Immature granulocytes (Bld) [#/Vol]0.05 10*3/uLNormal<0.10[facility] Hospitalment on above:Order Comment: Specimen Type: BLOOD SPECIMENOrdering Facility: [facility] Address:[address] [place], [place] [address]Performed By: #### 80707-3 ####[facility] LABCLIA [id number] [place] [address] [place] Immature granulocytes/100 WBC (Bld)0.9 %NormalPremier Health Upper [facility] on above:Order Comment: Specimen Type: BLOOD SPECIMENOrdering Facility: [facility] Address:[address] [place] [address] Performed By: #### 16307-2 ####[facility] LABCLIA [id number] [place] [address] [place] Lymphocytes (Bld) [#/Vol]0.94 10*3/uLLow1.00-4.00[facility] Comment on above:Order Comment: Specimen Type: BLOOD SPECIMENOrdering Facility: [facility] Address:[address] [place] [address] Performed By: #### 77747-2 ####[facility] LABIA [id number] [address] [place] [facility] Lymphocytes/100 WBC (Bld)17.6 %NormalPremier Health Upper [facility] on above: Order Comment: Specimen Type: BLOOD SPECIMENOrdering Facility: [facility] Address:[address] [place], [place] [address]Performed By: #### 87031- 8 ####[facility] LABIA [id number] [address] (RBC) [Entitic mass]27.2 pg Dwpccn45.0-34.0[facility] on above:Order Comment: Specimen Type: BLOOD SPECIMENOrdering Facility: [facility] Address:[address] [place], [place] [address]Performed By: #### 91901-8 ####[facility] LABIA [id number] [address]HC (RBC) [Mass/Vol]32.1 g/dL Ipvzci54.5-36.0[facility] on above:Order Comment: Specimen Type: BLOOD SPECIMENOrdering Facility: [facility] Address:[address] [place], [place] [address]Performed By: #### 58825-0 ####[facility] LABIA [id number] [address] (RBC) [Entitic vol]84.8 fL Gskfvl98.0-100.0[facility] on above:Order Comment: Specimen Type: BLOOD SPECIMENOrdering Facility: [facility] Address:[address] [place], [place] [address]Performed By: #### 68397-8 ####[facility] LABIA [id number] [place] [address] [place] AMERICAMonocytes (Bld) [#/Vol]0.64 10*3/uLNormal<0.87[facility] on above:Order Comment: Specimen Type: BLOOD SPECIMENOrdering Facility: [facility] Address:[address] [place], [place] [address]Performed By: #### 63882-1 ####[facility] LABCLIA [id number] [place] [address] [place] AMERICAMonocytes/100 WBC (Bld)12.0 % NormalPremier Health Upper [facility] on above:Order Comment: Specimen Type: BLOOD SPECIMENOrdering Facility: [facility] Address:[address] [place], [place] [address]Performed By: #### 28399-3 ####[facility] LABCLIA [id number] [place] [address] [place] AMERICANeutrophils (Bld) [#/Vol]3.24 10*3/uLNormal1.45-7.50[facility] on above:Order Comment: Specimen Type: BLOOD SPECIMENOrdering Facility: [facility] Address:[address] [place], [place] [address]Performed By: #### 32707-5 ####[facility] LABCLIA [id number] [place] [address] [place] AMERICANeutrophils/100 WBC (Bld)60.8 %NormalPremier Health Upper [facility] on above:Order Comment: Specimen Type: BLOOD SPECIMENOrdering Facility: [facility] Address:[address] [place] [address] Performed By: #### 41115-6 ####[facility] LABCLIA [id number] [place] [address] [place] Nucleated RBC (Bld) [#/Vol]10*3/uLNormal<0.01[facility] on above:Order Comment: Specimen Type: BLOOD SPECIMENOrdering Facility: [facility] Address:[address] [place] [address] Performed By: #### 71791-3 ####[facility] LABCLIA [id number] [place] [address] [place] Nucleated RBC/100 WBC (Bld) [Ratio]0.0 /100 WBCNormalCGlenbeigh Hospital Comment on above:Order Comment: Specimen Type: BLOOD SPECIMENOrdering Facility: [facility] Address:[address] [place] [address] Performed By: #### 66176-5 ####[facility] LABCLIA [id number] [place] [address] [place] Platelet mean volume (Bld) [Entitic vol]12.9 fLHigh9.0-12.7CGlenbeigh HospitalComment on above:Order Comment: Specimen Type: BLOOD SPECIMENOrdering Facility: [facility] Address:[address] [place], [place] [address]Performed By: #### 46148-9 ####[facility] LABCLIA [id number] [place] [address] [place] Platelets (Bld) [#/Vol]133 10*3/oRLom095-661ZclkzpqpvProtestant Deaconess HospitalComment on above:Order Comment: Specimen Type: BLOOD SPECIMENOrdering Facility: [facility] Address:[address] [place], [place] [address]Performed By: #### 84989-2 ####[facility] LABCLIA [id number] [place] [address] [place] AMERICARBC (Bld) [#/Vol]4.41 10*6/uLNormal4.20-6.00[facility] on above:Order Comment: Specimen Type: BLOOD SPECIMENOrdering Facility: [facility] Address:[address] [place], [place] [address]Performed By: #### 68569-6 ####[facility] LABCLIA [id number] [place] [address] [place] AMERICAWBC (Bld) [#/Vol]5.33 10*3/uL Normal3.70-11.00[facility] on above:Order Comment: Specimen Type: BLOOD SPECIMENOrdering Facility: [facility] Address:[address] [place], [place] [address]Performed By: #### 87732-2 ####[facility] LABIA [id number] [place] [address] [place] AMERICABasophils (Bld) [#/Vol]0.10 10*3/uLNormal<0.11CMercy Health [facility] on above:Order Comment: Specimen Type: BLOOD SPECIMENOrdering Facility: [facility] Address:[address] [place], [place] [address]Performed By: #### 98480-3 ####[facility] LABIA [id number] [place] [address] [place] AMERICABasophils/100 WBC (Bld)1.8 % NormalPremier Health Upper [facility] on above:Order Comment: Specimen Type: BLOOD SPECIMENOrdering Facility: [facility] Address:[address] [place], [place] [address]Performed By: #### 96929-2 ####[facility] LABIA [id number] [place] [address] [place] AMERICADifferential cell count method Nom (Bld)ManualNormalCMercy Health St. [facility] on above:Order Comment: Specimen Type: BLOOD SPECIMENOrdering Facility: [facility] Address:[address] [place] [address]Performed By: #### 84619-4 ####[facility] LABIA [id number] [place] [address] [place] AMERICAEosinophils (Bld) [#/Vol]0.90 10*3/uLHigh<0.46[facility] Comment on above:Order Comment: Specimen Type: BLOOD SPECIMENOrdering Facility: [facility] Address:[address] [place] [address] Performed By: #### 40568-3 ####[facility] LABCLIA [id number] [place] [address] [place] Eosinophils/100 WBC (Bld)15.8 %NormalPremier Health Upper [facility] on above: Order Comment: Specimen Type: BLOOD SPECIMENOrdering Facility: [facility] Address:[address] [place], [place] [address]Performed By: #### 52209- 8 ####[facility] LABIA [id number] [place] [address] [place] AMERICAErythrocyte distribution width (RBC) [Ratio]14.0 %Gxswfb88.5-15.0[facility] Hospitalment on above: Order Comment: Specimen Type: BLOOD SPECIMENOrdering Facility: [facility] Address:[address] [place], [place] [address]Performed By: #### 59115- 8 ####[facility] LABIA [id number] [place] [address] [place] AMERICAHematocrit (Bld) [Volume fraction]45.9 %Kbchpo11.0-51.0[facility] on above:Order Comment: Specimen Type: BLOOD SPECIMENOrdering Facility: [facility] Address:[address] [place], [place] [address]Performed By: #### 70504- 8 ####[facility] LABIA [id number] [place] [address] [place] AMERICAHemoglobin (Bld) [Mass/Vol]14.9 g/sDEdclxh10.0-17.0[facility] on above:Order Comment: Specimen Type: BLOOD SPECIMENOrdering Facility: [facility] Address:[address] [place], [place] [address]Performed By: #### 29790-3 ####[facility] LABIA [id number] [place] [address] [place] AMERICALymphocytes (Bld) [#/Vol]1.50 10*3/uLNormal1.00-4.00[facility] on above:Order Comment: Specimen Type: BLOOD SPECIMENOrdering Facility: [facility] Address:[address] [place], [place] [address]Performed By: #### 89792-6 ####[facility] LABIA [id number] [place] [address] [place] AMERICALymphocytes/100 WBC (Bld)26.3 % NormalPremier Health Upper Valley [facility] Center on above:Order Comment: Specimen Type: BLOOD SPECIMENOrdering Facility: [facility] Address:[address] [place], [place] [address]Performed By: #### 84099-7 ####[facility] LABIA [id number] [place] [address] [place] AMERICAMCH (RBC) [Entitic mass]27.0 vaAtgnbb90.0-34.0[facility] on above:Order Comment: Specimen Type: BLOOD SPECIMENOrdering Facility: [facility] Address:[address] [place], [place] [address]Performed By: #### 06581-5 ####[facility] LABIA [id number] [place] [address] [place] MCHC (RBC) [Mass/Vol]32.5 g/kALdyvke10.5-36.0[facility] on above:Order Comment: Specimen Type: BLOOD SPECIMENOrdering Facility: [facility] Address:[address] [place] [address] Performed By: #### 02904-7 ####[facility] LABIA [id number] [place] [address] [place] MCV (RBC) [Entitic vol]83.3 dZEyblpp83.0-100.0[facility] on above:Order Comment: Specimen Type: BLOOD SPECIMENOrdering Facility: [facility] Address:[address] [place] [address] Performed By: #### 25087-1 ####[facility] LABCLIA [id number] [place] [address] [place] Monocytes (Bld) [#/Vol]0.75 10*3/uLNormal<0.87[facility] on above:Order Comment: Specimen Type: BLOOD SPECIMENOrdering Facility: [facility] Address:[address] [place] [address] Performed By: #### 71441-2 ####[facility] LABCLIA [id number] [place] [address] [place] Monocytes/100 WBC (Bld)13.2 %NormalPremier Health Upper Valley Medical Center on above: Order Comment: Specimen Type: BLOOD SPECIMENOrdering Facility: [facility] Address:[address] [place], [place] [address]Performed By: #### 88248- 8 ####[facility] LABCLIA [id number] [place] [address] [place] AMERICANeutrophils (Bld) [#/Vol]2.45 10*3/uLNormal1.45-7.50[facility] on above:Order Comment: Specimen Type: BLOOD SPECIMENOrdering Facility: [facility] Address:[address] [place], [place] [address]Performed By: #### 69366-1 ####[facility] LABCLIA [id number] [place] [address] [place] AMERICANeutrophils/100 WBC (Bld)42.9 % NormalPremier Health Upper Valley [facility] Center on above:Order Comment: Specimen Type: BLOOD SPECIMENOrdering Facility: [facility] Address:[address] [place], [place] [address]Performed By: #### 74178-8 ####[facility] LABIA [id number] [place] [address] [place] AMERICANucleated RBC (Bld) [#/Vol]10*3/uLNormal<0.01[facility] on above:Order Comment: Specimen Type: BLOOD SPECIMENOrdering Facility: [facility] Address:[address] [place], [place] [address]Performed By: #### 82460-0 ####[facility] LABIA [id number] [place] [address] [place] Nucleated RBC/100 WBC (Bld) [Ratio]0.0 /100 WBCNormalCGlenbeigh Hospital Comment on above:Order Comment: Specimen Type: BLOOD SPECIMENOrdering Facility: [facility] Address:[address] [place] [address] Performed By: #### 01177-9 ####[facility] LABIA [id number] [place] [address] [place] Platelet mean volume (Bld) [Entitic vol]12.3 fLNormal9.0-12.7CMercy Health St[facility] on above:Order Comment: Specimen Type: BLOOD SPECIMENOrdering Facility: [facility] Address:[address] [place], [place] [address]Performed By: #### 31119-4 ####[facility] LABIA [id number] [place] [address] [place] Platelets (Bld) [#/Vol]158 10*3/yUNizzgn254-161KudoraigsPremier Health Upper [facility] Center on above:Order Comment: Specimen Type: BLOOD SPECIMENOrdering Facility: [facility] Address:[address] [place] [address] Performed By: #### 73057-4 ####[facility] LABCLIA [id number] [place] [address] [place] Platelets Estimate (Bld) [#/Vol]AdequateNormalCMercy Health St. [facility] on above:Order Comment: Specimen Type: BLOOD SPECIMENOrdering Facility: [facility] Address:[address] [place] [address] Performed By: #### 62776-9 ####[facility] LABCLIA [id number] [place] [address] [place] Polychromasia LM Ql (Bld)SlightNormalCMercy Health St. [facility] on above: Order Comment: Specimen Type: BLOOD SPECIMENOrdering Facility: [facility] Address:[address] [place], [place] [address]Performed By: #### 34535- 8 ####[facility] LABCLIA [id number] [place] [address] [place] AMERICARBC (Bld) [#/Vol]5.51 10*6/uL Normal4.20-6.00[facility] on above:Order Comment: Specimen Type: BLOOD SPECIMENOrdering Facility: [facility] Address:[address] [place], [place] [address]Performed By: #### 34806-7 ####[facility] LABCLIA [id number] [place] [address] [place] AMERICARED CELL MORPHReviewed: unremarkableNormalCMercy Health St. [facility] on above:Order Comment: Specimen Type: BLOOD SPECIMENOrdering Facility: [facility] Address:[address] [place], [place] [address]Performed By: #### 89737-5 ####[facility] LABCLIA [id number] [place] [address] [place] AMERICAWBC (Bld) [#/Vol]5.71 10*3/uL Normal3.70-11.00[facility] on above:Order Comment: Specimen Type: BLOOD SPECIMENOrdering Facility: [facility] Address:[address] [place], [place] [address]Performed By: #### 59272-4 ####[facility] LABCLIA [id number] [place] [address] [place] AMERICACONSULT PROGon 63-28-2819MDVFEGY PROGNormalMorrow County Hospital Cleuniversity hospitals elyria medical centerCONSULT PROGNormalProtestant [facility]acon[facility] Hospital CRP SerPl-mCncon 78-57-7784IXQ [Mass/Vol]11.4 mg/dLHigh<0.9CMercy Health St. [facility] on above:Order Comment: Specimen Type: BLOOD SPECIMENOrdering Facility: [facility] Address:[address] [place], [place] [address]Performed By: #### 02187-6, 2776-12, 1988-03, 3034-05 ####[facility] LABIA [id number] [place] [address] [place] AMERICACT ABD/PEL W IVCONon 46-40-6418JC ABD/PEL W IVCONNormal [facility] HospitalMagnesium SerPl-mCncon 31-92-9654Wslmpqtii [Mass/Vol] 2.1 mg/dLNormal1.7-2.3ClevelAtrium Health Mountain Islandment on above:Order Comment: Specimen Type: BLOOD SPECIMENOrdering Facility: [facility] Address:[address] [place], [place] [address]Performed By: #### 44217-2, 2776-12, 1988-03, 3034-05 ####[facility] LABCLIA [id number] [place] [id number] [place] AMERICANURSING PROGon 02-86-7914ADMNMKM PROGNormalMorrow County Hospital ClevelandNUTRITIONon 07-06-2024 NUTRITIONNormalCGlenbeigh HospitalPT panel Coag (PPP)on 81-68-7587XSX Coag (PPP) [Relative time]1.0 {INR}Normal0.9-1.3ClevelAtrium Health Comment on above:Order Comment: Specimen Type: BLOOD SPECIMENOrdering Facility: [facility] Address:[address] [place] [address]Ihsdxx Comment: Vitamin K Antagonist (VKA) Therapeutic Range: INR 2 to 3 (Target INR of 2.5)Note: For patients treated with VKA drugs, such as warfarin, the [employer] 2012 Guideline recommends a therapeutic INR range of 2 to 3 (target INR of 2.5). This recommendation includes high-risk patients with antiphospholipid syndrome with previous arterial or venous thromboembolism, current-generation mechanical or bioprosthetic aortic heart valve replacement.Note: Patients with mechanical aortic valve replacement and additional risk factors for thromboembolic events (atrialfibrillation, previous thromboembolism, LV dysfunction, hypercoagulable conditions) or an older gene ration mechanical AVR (i.e., ball in-Cage) or any mechanical MVR should have a INR therapeutic range of 2.5 to 3.5 (target INR of 3).Harley GH, et al. Chest 2012, 141:7S-47SNishimradha RA, et al. [facility] 2017, 70: 252-289Performed By: #### 97224-9, 58830-7 ####[facility] [id number] [place] [address] [place] AMERICAPT Coag (PPP) [Time] 11.0 sNormal9.7-13.0[facility] on above:Order Comment: Specimen Type: BLOOD SPECIMENOrdering Facility: [facility] Address:[address] [place], [place] [address]Performed By: #### 96738-1, 17619-8 ####[facility] [id number] [place] [id number] [place] AMERICAPhosphate SerPl-mCncon 07-06-2024 Phosphate [Mass/Vol]2.1 mg/dLLow2.7-4.8CMercy Health St[facility] on above:Order Comment: Specimen Type: BLOOD SPECIMENOrdering Facility: [facility] Address:[address] [place], [place] [address]Performed By: #### 15521-2, 277-1, 1987-, 3034-6 ####[facility] LABCLIA [id number] [address] [address] [place] Prealb SerPl-mCncon 29-19-8665Oejywndvkv [Mass/Vol]14 mg/eUWtk06-45LmfifdbyxProtestant Deaconess HospitalComascension providence hospital on above:Order Comment: Specimen Type: BLOOD SPECIMENOrdering Facility: [facility] Address:[address] [place], [place] [address]Performed By: #### 73814-6, 68609-3 ####[facility] LABCLIA [id number] [place] [address] [place] AMERICATHERAPY NTon 85-70-3447FVACCMI NTNormalCGlenbeigh HospitalTHERAPY NTNormalCGlenbeigh HospitalTransferrin SerPl-mCncon 72-10-1831Uexjxouyixb [Mass/Vol]184 mg/vFSho189-846TqhfbmtkfProtestant Deaconess Hospital Comment on above:Order Comment: Specimen Type: BLOOD SPECIMENOrdering Facility: [facility] Address:[address] [place] [address] Performed By: #### 18314-7, 2777-1, 1987-, 3034-05 ####[facility] LABCLIA [id number] [place] [address] [place] AMERICAaPTT PPPon 71-21-8771cEHO Coag (PPP) [Time]26.2 sNormal 23.0-32.4CGlenbeigh HospitalComascension providence hospital on above:Order Comment: Specimen Type: BLOOD SPECIMENOrdering Facility: [facility] Address:[address] [place], [place] [address]Performed By: #### 64633-4, 37727-9 ####[facility] LABCLIA [id number] [place] [address] [place] AMERICACASE MANAGEMon 08-49-5612HKKX MANAGEMNormal [facility]acon[facility] HospitalCONSULTon 47-28-6053GKEHHHTUkrbpbAulfchpya Clinic ClevelandCONSULT PROGon 77-95-0830GODHODT PROGNormalProtestant Deaconess HospitalPT EDon 65-04-6349VZ EDNormalCLakeHealth [facility] panel Coag (PPP)on 72-75-5706NPV Coag (PPP) [Relative time]1.0 {INR}Normal0.9-1.3CMercy Health St. [facility] on above:Order Comment: Specimen Type: BLOOD SPECIMENOrdering Facility: [facility] Address:[address] [place] [id number] Comment: Vitamin K Antagonist (VKA) Therapeutic Range: INR 2 to 3 (Target INR of 2.5)Note: For patients treated with VKA drugs, such as warfarin, the [employer] 2012 Guideline recommends a therapeutic INR range of 2 to 3 (target INR of 2.5). This recommendation includes high-risk patients with antiphospholipid syndrome with previous arterial or venous thromboembolism, current-generation mechanical or bioprosthetic aortic heart valve replacement.Note: Patients with mechanical aortic valve replacement and additional risk factors for thromboembolic events (atrialfibrillation, previous thromboembolism, LV dysfunction, hypercoagulable conditions) or an older gene ration mechanical AVR (i.e., ball in-Cage) or any mechanical MVR should have a INR therapeutic range of 2.5 to 3.5 (target INR of 3).Harley GH, et al. Chest 2012, 141:7S-47SNishsophia RA, et al. [facility] 2017, 70: 252-289Performed By: #### 24430-1, 04922-7 ####[facility] LABIA [id number] [place] [id number] [place] [facility] COUNTY HOSPITALPT Coag (PPP) [Time] 10.7 sNormal9.7-13.0[facility] on above:Order Comment: Specimen Type: BLOOD SPECIMENOrdering Facility: [facility] Address:[address]ERC[address] [place], [place] [address]Uxbealagi By: #### 52285-8, 89530-6 ####[facility] LABIA [id number] [address] OF AMERICATHERAPY NTon 52-45-4634RBEPFZO NT NormalProtestant Deaconess HospitalXR ABDOMEN 1V SUPINEon 31-29-5287UK ABDOMEN 1V SUPINENormalCGlenbeigh HospitalaPTT PPPon 78-50-3182eQLW Coag (PPP) [Time]28.2 eWfawlb03.0-32.4CMercy Health St. [facility] on above:Order Comment: Specimen Type: BLOOD SPECIMENOrdering Facility: [facility] Address:[address] [place], [place] [address]Performed By: #### 72225- 0, 28048-3 ####[facility] LABCLIA [id number] [place] [address] [place] [facility] HOSPITALCBC panel Auto (Bld)on 50-52-5321Cetrpmbailf distribution width (RBC) [Ratio]14.2 %Saihua39.5-15.0 [facility]acon[facility] HospitalComment on above:Order Comment: Specimen Type: BLOOD SPECIMENOrdering Facility: [facility] Address:[address] [place], [place] [address]Performed By: #### 01252-5 ####[facility] LABCLIA [id number] [address] STATES OF DELAWARE COUNTY HOSPITALHematocrit (Bld) [Volume fraction]46.4 %Bpugwo33.0-51.0[facility]acon[facility] HospitalComascension providence hospital on above:Order Comment: Specimen Type: BLOOD SPECIMENOrdering Facility: [facility] Address:[address] [place], [place] [address]Performed By: #### 27346-0 ####[facility] LABCLIA [id number] [place] [id number] [place] Hemoglobin (Bld) [Mass/Vol]15.1 g/kGVqzxlx31.0-17.0[facility] Comment on above:Order Comment: Specimen Type: BLOOD SPECIMENOrdering Facility: [facility] Address:[address] [place] [address] Performed By: #### 05280-6 ####[facility] LABCLIA [id number] [place] [address] [place] MCH (RBC) [Entitic mass]27.3 ipWyhmpv83.0-34.0[facility] on above:Order Comment: Specimen Type: BLOOD SPECIMENOrdering Facility: [facility] Address:[address] [place] [address] Performed By: #### 88115-5 ####[facility] [id number] [place] [address] [place] MCHC (RBC) [Mass/Vol]32.5 g/tKNyaepk42.5-36.0[facility] on above:Order Comment: Specimen Type: BLOOD SPECIMENOrdering Facility: [facility] Address:[address] [place] [address] Performed By: #### 84182-6 ####[facility] [id number] [place] [address] [place] MCV (RBC) [Entitic vol]83.8 lRUyydbv84.0-100.0[facility] on above:Order Comment: Specimen Type: BLOOD SPECIMENOrdering Facility: [facility] Address:[address] [place] [address] Performed By: #### 48340-6 ####[facility] [id number] [place] [address] [place] Nucleated RBC (Bld) [#/Vol]10*3/uLNormal<0.01[facility] on above:Order Comment: Specimen Type: BLOOD SPECIMENOrdering Facility: [facility] Address:[address] [place] [address] Performed By: #### 52693-8 ####[facility] [id number] [place] [address] [place] Platelet mean volume (Bld) [Entitic vol]11.6 fLNormal9.0-12.7CMercy Health St. [facility] on above:Order Comment: Specimen Type: BLOOD SPECIMENOrdering Facility: [facility] Address:[address] [place], [place] [address]Performed By: #### 22190-9 ####[facility] LABCLIA [id number] [place] [address] [place] Platelets (Bld) [#/Vol]146 10*3/sGVsx442-886UigsgkppiPremier Health Upper [facility] Center on above:Order Comment: Specimen Type: BLOOD SPECIMENOrdering Facility: [facility] Address:[address] [place], [place] [address]Performed By: #### 32715-6 ####[facility] LABCLIA [id number] [place] [address] [place] AMERICARBC (Bld) [#/Vol]5.54 10*6/uLNormal4.20-6.00[facility] on above:Order Comment: Specimen Type: BLOOD SPECIMENOrdering Facility: [facility] Address:[address] [place], [place] [address]Performed By: #### 28850-5 ####[facility] LABCLIA [id number] [place] [address] [place] AMERICAWBC (Bld) [#/Vol]4.30 10*3/uL Normal3.70-11.00[facility] on above:Order Comment: Specimen Type: BLOOD SPECIMENOrdering Facility: [facility] Address:[address] [place], [place] [address]Performed By: #### 35164-5 ####[facility] LABCLIA [id number] [place] [address] [place] AMERICACONSULT PROGon 95-33-8133NLQZJQU PROGNormalProtestant Deaconess HospitalComprehensive metabolic 2000 panelon 12-03-0989Rguiocm [Mass/Vol]3.8 g/dLLow3.9-4.9CGlenbeigh HospitalComascension providence hospital on above:Order Comment: Specimen Type: BLOOD SPECIMENOrdering Facility: [facility] Address:[address] [place] [address] Performed By: #### 77814-8, 38157-7, 2776- ####[facility] LABCLIA [id number] [place] [address] [place] AMERICAALP [Catalytic activity/Vol]89 U/JLiwsdl07-431GmgymuetzProtestant Deaconess Hospital Comment on above:Order Comment: Specimen Type: BLOOD SPECIMENOrdering Facility: [facility] Address:[address] [place] [address] Performed By: #### 83736-1, , 2776-12 ####[facility] LABCLIA [id number] [address] [place] AMERICAALT [Catalytic activity/Vol]105 U/KNgam49-97VsmaxwsmkProtestant Deaconess Hospital Comment on above:Order Comment: Specimen Type: BLOOD SPECIMENOrdering Facility: [facility] Address:[address] [place] [address] Performed By: #### 87399-4, , 2776-12 ####[facility] LABCLIA [id number] VILLE [address] [place] AMERICAAnion gap [Moles/Vol]16 mmol/LHigh8-15Pro[facility]acon[facility] HospitalComascension providence hospital on above:Order Comment: Specimen Type: BLOOD SPECIMENOrdering Facility: [facility] Address:[address] [place] [address] Performed By: #### 59632-2, 59290-9, 2776-12 ####[facility] LABCLIA [id number] [address] [address] [place] AMERICAAST [Catalytic activity/Vol]53 U/WSwkt82-90FqvcvbkmgProtestant Deaconess Hospital Comment on above:Order Comment: Specimen Type: BLOOD SPECIMENOrdering Facility: [facility] Address:[address] [place], [place] [address]Result Comment: Results may be falsely increased due to interference from hemolysis. Suggest reorder as clinically indicated.Performed By: #### 06366-2, 93368-5, 2776- ####[facility] LABCLIA [id number] [place] [id number] [place] AMERICABilirubin [Mass/Vol]1.1 mg/dL Normal0.2-1.3CMercy Health St. [facility] on above:Order Comment: Specimen Type: BLOOD SPECIMENOrdering Facility: [facility] Address:[address] [place], [place] [address]Performed By: #### 22799-2, 90445-8, 2776-12 ####[facility] LABCLIA [id number], [place] [address] [place] AMERICACalcium [Mass/Vol]9.3 mg/dLNormal 8.5-10.2CMercy Health St[facility] on above:Order Comment: Specimen Type: BLOOD SPECIMENOrdering Facility: [facility] Address:[address] [place], [place] [address]Performed By: #### 13122-0, 81551-1, 2776-12 ####[facility] LABCLIA [id number] VILLE [id number] [place] AMERICAChloride [Moles/Vol]101 mmol/L Byeimx12-960CkmmacmboPremier Health [facility] on above:Order Comment: Specimen Type: BLOOD SPECIMENOrdering Facility: [facility] Address:[address] [place], [place] [address]Performed By: #### 04097-1, 96066-8, 2776-12 ####[facility] LABCLIA [id number] [address] [place] AMERICACO2 [Moles/Vol]19 mmol/TAbg76-47 [facility] on above:Order Comment: Specimen Type: BLOOD SPECIMENOrdering Facility: [facility] Address:[address] [place] [id number] By: #### 29061-6, 75261-2, 2776-12 ####[facility] LABIA [id number] VILLE [id number] [place] AMERICACreatinine [Mass/Vol]1.15 mg/dLNormal0.73-1.22 [facility] on above:Order Comment: Specimen Type: BLOOD SPECIMENOrdering Facility: [facility] Address:[address] [place], [place] [address]Performed By: #### 79829-2, , 2776-12 ####[facility] [id number], [place] [address] [place] AMERICACreatinine and Glomerular filtration rate.predicted panel (S/P/Bld)86 mL/min/1.73m???Normal>=60[facility] on above:Order Comment: Specimen Type: BLOOD SPECIMENOrdering Facility: [facility] Address:[address] [place], [place] [address]Result Comment: Estimated Glomerular Filtration Rate (eGFR) is [...] accurately reflect actual GFR. Performed By: #### 21366-3, , 2776-12 ####[facility] [id number] VILLE [id number] [place] AMERICAGlucose [Mass/Vol]119 mg/aHDgnx29-35AsnafsidiPremier Health [facility] on above:Order Comment: Specimen Type: BLOOD SPECIMENOrdering Facility: [facility] Address:[address] [place], [place] [address]Result Comment: The [employer] (ADA) provides guidance for cutoff [...] unequivocal hyperglycemia, results should be confirmed by repeattesting. In a patient with classic symptoms of hyperglycemia or hyperglycemic crisis, random plasmaglucose results greater than or equal to 200 mg/dL meet the criteria for diagnosis of diabetes.Reference: Standards of Medical Care in Diabetes 2016, [employer]. Diabetes Care. 2016.39(Suppl 1).Performed By: #### 78791-8, 76123-2, 2776-12 ####[facility] LAB[facility] [id number], [place] [address] [place] AMERICAPotassium [Moles/Vol]4.5 mmol/LNormal3.7-5.1 [facility] on above:Order Comment: Specimen Type: BLOOD SPECIMENOrdering Facility: [facility] Address:[address] [place], [place] [address]Performed By: #### 66309-0, , 2776-12 ####[facility] [id number], [place] [address] [place] AMERICAProtein [Mass/Vol]6.5 g/dLNormal6.3-8.0[facility] on above:Order Comment: Specimen Type: BLOOD SPECIMENOrdering Facility: [facility] Address:[address] [place], [place] [address]Performed By: #### 28580-1, 48475-3, 2776-12 ####[facility] [id number], [place] [address] [place] AMERICASodium [Moles/Vol]136 mmol/XXnnzsm070-498QndlkegstPrem[facility] Health [facility] on above:Order Comment: Specimen Type: BLOOD SPECIMENOrdering Facility: [facility] Address:[address] [place], [place] [address]Performed By: #### 49120-2, 01816-2, 2777- ####[facility] LABCLIA [id number] VILLE [id number] [place] AMERICAUrea nitrogen [Mass/Vol]17 mg/dLNormal9-24 [facility] on above:Order Comment: Specimen Type: BLOOD SPECIMENOrdering Facility: [facility] Address:[address] [place], [place] [address]Performed By: #### 51033-4, 06561-0, 2777- ####[facility] LABIA [id number] VILLE [id number] [place] AMERICAMagnesium SerPl-mCncon 88-04-4893Jjiuaulav [Mass/Vol]1.9 mg/dLNormal1.7-2.3CMer[facility] on above:Order Comment: Specimen Type: BLOOD SPECIMENOrdering Facility: [facility] Address:[address] [place], [place] [address]Performed By: #### 96239- 8, 17010-8, 2777- ####[facility] LABIA [id number] VILLE [id number] [place] AMERICANURSING PROGon 16-92-2933HLKTCCM PROGNormalProtestant Deaconess HospitalNURSING PROGNormal [facility] Deaconess HospitalNURSING PROGNormalProtestant Deaconess HospitalPT panel Coag (PPP)on 26-42-7614BXR Coag (PPP) [Relative time]1.1 {INR}Normal0.9-1.3 [facility] on above:Order Comment: Specimen Type: BLOOD SPECIMENOrdering Facility: [facility] Address:[address] [place], [place] [address]Result Comment: Vitamin K Antagonist (VKA) Therapeutic Range: INR 2 to 3 (Target INR of 2.5)Note: For patients treated with VKA drugs, such as warfarin, the [employer] 2012 Guideline recommends a therapeutic INR range of 2 to 3 (target INR of 2.5). This recommendation inclu dino high-risk patients with antiphospholipid syndrome with previous arterial or venous thromboembolism, current-generation mechanical or bioprosthetic aortic heart valve replacement.Note: Patients with mechanical aortic valve replacement and additional risk factors for thromboembolic events (atrialfibrillation, previous thromboembolism, LV dysfunction, hypercoagulable conditions) or an older generation mechanical AVR (i.e., ball in-Cage) or any mechanical MVR should have a INR therapeutic range of 2.5 to 3.5 (target INR of 3).Harley GH, et al. Chest 2012, 141:7S-47SNishsophia RA, et al. [facility] 2017, 70: 252-289 Performed By: #### 11433-2, 50326-0 ####[facility] LABIA [id number] [place] [address] [place] PT Coag (PPP) [Time]11.4 sNormal9.7-13.0[facility] on above:Order Comment: Specimen Type: BLOOD SPECIMENOrdering Facility: [facility] Address:[address] [place], [place] [address]Performed By: #### 07052-3, 46843-4 ####[facility]ENTER[facility] [id number] [place] [address] [place] AMERICAPhosphate SerPl-mCnc on 98-22-5318Ukiekalem [Mass/Vol]4.4 mg/dLNormal2.7-4.8CMer[facility] on above:Order Comment: Specimen Type: BLOOD SPECIMENOrdering Facility: [facility] Address:[address] [place], [place] [address]Performed By: #### 56214-5, 74574-9, 2777-1 ####[facility] LABIA [id number], [place] [address] [place] AMERICAXR ABDOMEN 1V SUPINEon 12-72-1584GF ABDOMEN 1V SUPINENormal Protestant Deaconess HospitalaPTT PPPon 42-73-2387zWRR Coag (PPP) [Time]28.2 s Rzncdp72.0-32.4CMer[facility] on above:Order Comment: Specimen Type: BLOOD SPECIMENOrdering Facility: [facility] Address:[address] [place], [place] [address]Performed By: #### 47230-0, 90840-1 ####[facility] LABIA [id number] [address]CBC panel Auto (Bld)on 07-03-2024 Erythrocyte distribution width (RBC) [Ratio]14.5 %Yvmgdt24.5-15.0[facility] on above:Order Comment: Specimen Type: BLOOD SPECIMENOrdering Facility: [facility] Address:[address] [place], [place] [address]Performed By: #### 31403-7 ####[facility] LABIA [id number] [address] OF DEL[facility] COUNTY HOSPITALHematocrit (Bld) [Volume fraction]48.4 %Pfdzcf57.0-51.0[facility] on above:Order Comment: Specimen Type: BLOOD SPECIMENOrdering Facility: [facility] Address:[address] [place], [place] [address]Performed By: #### 53042-0 ####[facility] LABIA [id number] [place] [address] [place] Hemoglobin (Bld) [Mass/Vol]15.7 g/sYHvruxs47.0-17.0[facility] Comment on above:Order Comment: Specimen Type: BLOOD SPECIMENOrdering Facility: [facility] Address:[address] [place] [address] Performed By: #### 76021-0 ####[facility] LABIA [id number] [place] [address] [place] MCH (RBC) [Entitic mass]26.7 gxKgyxrv11.0-34.0[facility] on above:Order Comment: Specimen Type: BLOOD SPECIMENOrdering Facility: [facility] Address:[address] [place] [address] Performed By: #### 55145-8 ####[facility] LABIA [id number] [place] [address] [place] MCHC (RBC) [Mass/Vol]32.4 g/eDYexkur89.5-36.0[facility] on above:Order Comment: Specimen Type: BLOOD SPECIMENOrdering Facility: [facility] Address:[address] [place] [address] Performed By: #### 36303-2 ####[facility] LABIA [id number] [place] [address] [place] MCV (RBC) [Entitic vol]82.5 xNGujkpe61.0-100.0[facility] on above:Order Comment: Specimen Type: BLOOD SPECIMENOrdering Facility: [facility] Address:[address] [place] [address] Performed By: #### 18067-4 ####[facility] LABIA [id number] [place] [address] [place] Nucleated RBC (Bld) [#/Vol]10*3/uLNormal<0.01[facility] on above:Order Comment: Specimen Type: BLOOD SPECIMENOrdering Facility: [facility] Address:[address] [place] [address] Performed By: #### 55313-0 ####[facility] LABIA [id number] [place] [address] [place] Platelet mean volume (Bld) [Entitic vol]10.9 fLNormal9.0-12.7CMercy Health [facility] on above:Order Comment: Specimen Type: BLOOD SPECIMENOrdering Facility: [facility] Address:[address] [place], [place] [address]Performed By: #### 49946-7 ####[facility] LABIA [id number] [place] [id number] [place] Platelets (Bld) [#/Vol]143 10*3/pRMhb664-972ZtgexfvorPrem[facility] Health [facility] on above:Order Comment: Specimen Type: BLOOD SPECIMENOrdering Facility: [facility] Address:[address] [place], [place] [address]Performed By: #### 24250-4 ####[facility] LABIA [id number] [place] [address] [place] AMERICARBC (Bld) [#/Vol]5.87 10*6/uLNormal4.20-6.00[facility] on above:Order Comment: Specimen Type: BLOOD SPECIMENOrdering Facility: [facility] Address:[address] [place], [place] [address]Performed By: #### 83431-8 ####[facility]ENTERIA [id number] [place] [address] [place] AMERICAWBC (Bld) [#/Vol]8.81 10*3/uL Normal3.70-11.00[facility] on above:Order Comment: Specimen Type: BLOOD SPECIMENOrdering Facility: [facility] Address:[address] [place], [place] [address]Performed By: #### 76053-1 ####[facility] [id number] [place] [id number] [place] STATES OF AMERICACONSULT PROGon 32-29-6771EEGYLUE PROGNormalProtestant Deaconess HospitalComprehensive metabolic 2000 panelon 25-60-2895Szajdgt [Mass/Vol]3.8 g/dLLow3.9-4.9CMercy Health St[facility] on above:Order Comment: Specimen Type: BLOOD SPECIMENOrdering Facility: [facility] Address:[address] [place] [address] Performed By: #### 93767-6, 68130-4, 2776- ####[facility] LABCLIA [id number] AVENUEMARTIN LUTHER KING JR. - HARBOR HOSPITALK [address] [address] [place] AMERICAALP [Catalytic activity/Vol]95 U/UGqradz10-039LmsyhgumqProtestant Deaconess Hospital Comment on above:Order Comment: Specimen Type: BLOOD SPECIMENOrdering Facility: [facility] Address:[address] [place], [place] [address] Performed By: #### 15830-0, 44680-7, 2776- ####[facility] LABCLIA [id number] [address] [address] [place] AMERICAALT [Catalytic activity/Vol]133 U/MBvcm62-67NescsblgzProtestant Deaconess Hospital Comment on above:Order Comment: Specimen Type: BLOOD SPECIMENOrdering Facility: [facility] Address:[address] [place], [place] [address] Performed By: #### 87266-1, , 2776-12 ####[facility] LABCLIA [id number] [address] [address] [place] AMERICAAnion gap [Moles/Vol]13 mmol/LNormal8-15Pro[facility] Deaconess HospitalComment on above:Order Comment: Specimen Type: BLOOD SPECIMENOrdering Facility: [facility] Address:[address] [place] [address] Performed By: #### 27990-7, , 2776-12 ####[facility] LABCLIA [id number] [address] [address] [place] AMERICAAST [Catalytic activity/Vol]70 U/BWksb60-90YplzhcpvvProtestant Deaconess Hospital Comment on above:Order Comment: Specimen Type: BLOOD SPECIMENOrdering Facility: [facility] Address:[address] [place] [address] Performed By: #### 96029-5, 08236-0, 2776- ####[facility] LABCLIA [id number], [place] [address] [place] AMERICABilirubin [Mass/Vol]1.1 mg/dLNormal0.2-1.3CGlenbeigh Hospital Comment on above:Order Comment: Specimen Type: BLOOD SPECIMENOrdering Facility: [facility] Address:[address] [place] [address] Performed By: #### 85872-9, 87396-8, 2776- ####[facility] LABCLIA [id number], [place] [address] [place] AMERICACalcium [Mass/Vol]9.1 mg/dLNormal8.5-10.2ClevelAtrium Health Comment on above:Order Comment: Specimen Type: BLOOD SPECIMENOrdering Facility: [facility] Address:[address] [place] [address] Performed By: #### 94487-2, 39330-5, 2776-12 ####[facility] LABCLIA [id number], [place] [address] [place] AMERICAChloride [Moles/Vol]102 mmol/VEuyfqj43-958AzelitgbbProtestant Deaconess Hospital Comment on above:Order Comment: Specimen Type: BLOOD SPECIMENOrdering Facility: [facility] Address:[address] [place] [address] Performed By: #### 50219-6, 61133-0, 2776-12 ####[facility] LABCLIA [id number], [place] [address] [place] AMERICACO2 [Moles/Vol]21 mmol/EChq96-31BsmdzkeirProtestant Deaconess HospitalComment on above:Order Comment: Specimen Type: BLOOD SPECIMENOrdering Facility: [facility] Address:[address] [place], [place] [address]Performed By: #### 32273-6, 97222-4, 2776- ####[facility] LABCLIA [id number] VILLE [address] [place] Creatinine [Mass/Vol]1.05 mg/dLNormal0.73-1.22[facility] on above:Order Comment: Specimen Type: BLOOD SPECIMENOrdering Facility: [facility] Address:[address] [place] [id number] Performed By: #### 30506-5, 77933-8, 2776-12 ####[facility] LABIA [id number], [place] [address] [place] AMERICACreatinine and Glomerular filtration rate.predicted panel (S/P/Bld)96 mL/min/1.73m???Normal>=60[facility] on above:Order Comment: Specimen Type: BLOOD SPECIMENOrdering Facility: [facility] Address:[address] [place], [place] [address]Result Comment: Estimated Glomerular Filtration Rate (eGFR) is calculated using the 2020 CKD-EPI cre atinine equation. This equation utilizes serum creatinine, sex, and age as parameters. The creatinine assay has traceable calibration to isotope dilution- mass spectrometry. Refer to KDIGO guidelines for clinical interpretation. In patients with unstable renal function, e.g. those with acute kidney injury, the eGFR may not accurately reflect actual GFR.Performed By: #### 94126-6, , 2776-12 ####[facility] LABCLIA [id number] [address] [place] AMERICAGlucose [Mass/Vol]101 mg/dLHigh 74-99[facility] on above:Order Comment: Specimen Type: BLOOD SPECIMENOrdering Facility: [facility] Address:[address] [place], [place] [address]Qmphna Comment: The [place] [employer] (ADA) provides guidance for cutoff [...] unequivocal hyperglycemia, results should be confirmed by repeattesting. In a patient with classic symptoms of hyperglycemia or hyperglycemic crisis, random plasmaglucose results greater than or equal to 200 mg/dL meet the criteria for diagnosis of diabetes.Reference: Standards of Medical Care in Diabetes 2016, [employer]. Diabetes Care. 2016.39(Suppl 1).Performed By: #### 59229- 8, , 2776-12 ####[facility] LABCLIA [id number] [place] [id number] [place] AMERICAPotassium [Moles/Vol] 3.9 mmol/LNormal3.7-5.1CMercy Health [facility] on above:Order Comment: Specimen Type: BLOOD SPECIMENOrdering Facility: [facility] Address:[address] [place], [place] [address]Performed By: #### 28969-1, , 2776-12 ####[facility] LABIA [id number], [place] [address] [place] AMERICAProtein [Mass/Vol]6.5 g/dLNormal 6.3-8.0[facility] on above:Order Comment: Specimen Type: BLOOD SPECIMENOrdering Facility: [facility] Address:[address] [place], [place] [address]Performed By: #### 55132-2, , 2776-12 ####[facility] LABIA [id number], [place] [address] [place] AMERICASodium [Moles/Vol]136 mmol/L Dqeioi539-186XzyglovthPremier Health [facility] on above:Order Comment: Specimen Type: BLOOD SPECIMENOrdering Facility: [facility] Address:[address] [place], [place] [address]Performed By: #### 79145-0, , 2776-12 ####[facility] LABIA [id number] [address] [address] [place] AMERICAUrea nitrogen [Mass/Vol]11 mg/dL Normal9-24[facility] on above:Order Comment: Specimen Type: BLOOD SPECIMENOrdering Facility: [facility] Address:[address] [place], [place] [address]Performed By: #### 95744-8, 06788-8, 2777-1 ####[facility] LABCLIA [id number] [place] [address] [place] AMERICAAlbumin [Mass/Vol]3.7 g/dLLow 3.9-4.9CMercy Health [facility] on above:Order Comment: Specimen Type: BLOOD SPECIMENOrdering Facility: [facility] Address:[address] [place], [place] [address]Performed By: #### 52603-3 ####[facility] LABIA [id number] [place] [address] [place] AMERICAALP [Catalytic activity/Vol]86 U/ZZjhlqz62-476XdmqtsqkuPrem[facility] Health [facility] on above:Order Comment: Specimen Type: BLOOD SPECIMENOrdering Facility: [facility] Address:[address] [place], [place] [address]Result Comment: Results may be falsely decreased due to interference from hemolysis. Suggest reorder as clinically indicated.Performed By: #### 20494-3 ####[facility] LABCLIA [id number] [place] [address] [place] AMERICAALT [Catalytic activity/Vol]137 U/ODnmz99-56OhskixjeuPremier Health [facility] on above:Order Comment: Specimen Type: BLOOD SPECIMENOrdering Facility: [facility] Address:[address] [place], [place] [address]Result Comment: Results may be falsely increased due to interference from hemolysis. Suggest reorder as clinically indicated. Performed By: #### 30584-8 ####[facility] LABIA [id number] [place] [id number] [place] Anion gap [Moles/Vol]11 mmol/LNormal8-15[facility] on above:Order Comment: Specimen Type: BLOOD SPECIMENOrdering Facility: [facility] Address:[address] [place], [place] [address]Performed By: #### 18343-8 ####[facility] LABCLIA [id number] [place] [address] [place] AMERICAAST [Catalytic activity/Vol]118 U/BOkfh03-80LsvbkgrccProtestant Deaconess HospitalComascension providence hospital on above:Order Comment: Specimen Type: BLOOD SPECIMENOrdering Facility: [facility] Address:[address] [place], [place] [address]Result Comment: Results may be falsely increased due to interference from hemolysis. Suggest reorder as clinically indicated.Performed By: #### 85379-7 ####[facility] LABIA [id number] [place] [address] [place] AMERICABilirubin [Mass/Vol]1.0 mg/dLNormal0.2-1.3CGlenbeigh Hospital Comment on above:Order Comment: Specimen Type: BLOOD SPECIMENOrdering Facility: [facility] Address:[address] [place] [address] Performed By: #### 65583-7 ####[facility] LABIA [id number] [place] [address] [place] Calcium [Mass/Vol]8.8 mg/dLNormal8.5-10.2CGlenbeigh HospitalComascension providence hospital on above:Order Comment: Specimen Type: BLOOD SPECIMENOrdering Facility: [facility] Address:[address] [place], [place] [address]Performed By: #### 25771-5 ####[facility] LABIA [id number] [place] [id number] [place] AMERICAChloride [Moles/Vol] 100 mmol/DUwxbjv06-326BvbzlwcooProtestant Deaconess HospitalComascension providence hospital on above:Order Comment: Specimen Type: BLOOD SPECIMENOrdering Facility: [facility] Address:[address] [place], [place] [address]Performed By: #### 21284-3 ####[facility] LABCLIA [id number] [place] [address] [place] AMERICACO2 [Moles/Vol]20 mmol/SBvv96-75 [facility] on above:Order Comment: Specimen Type: BLOOD SPECIMENOrdering Facility: [facility] Address:[address] [place], [place] [address]Performed By: #### 79194-0 ####[facility] LABM[facility] [id number] [place] [address] [place] [facility] COUNTY HOSPITALCreatinine [Mass/Vol]0.98 mg/dLNormal0.73-1.22[facility] Comment on above:Order Comment: Specimen Type: BLOOD SPECIMENOrdering Facility: [facility] Address:[address] [place] [address] Performed By: #### 01285-8 ####[facility] [id number] [place] [address] [place] Creatinine and Glomerular filtration rate.predicted panel (S/P/Bld)104 mL/min/1.73m???Normal>=60[facility] on above:Order Comment: Specimen Type: BLOOD SPECIMENOrdering Facility: [facility] Address:[address] [place], [place] [address]Result Comment: Estimated Glomerular Filtration Rate (eGFR) is calculated using the 2020 CKD-EPI cre atinine equation. This equation utilizes serum creatinine, sex, and age as parameters. The creatinine assay has traceable calibration to isotope dilution- mass spectrometry. Refer to KDIGO guidelines for clinical interpretation. In patients with unstable renal function, e.g. those with acute kidney injury, the eGFR may not accurately reflect actual GFR.Performed By: #### 22921-1 ####[facility] LABIA [id number] [place] [address] [place] AMERICAGlucose [Mass/Vol]94 mg/dLNormal 74-99[facility] on above:Order Comment: Specimen Type: BLOOD SPECIMENOrdering Facility: [facility] Address:[address] [place], [place] [address]Result Comment: The [place] [employer] (ADA) provides guidance for cutoff [...] unequivocal hyperglycemia, results should be confirmed by repeattesting. In a patient with classic symptoms of hyperglycemia or hyperglycemic crisis, random plasmaglucose results greater than or equal to 200 mg/dL meet the criteria for diagnosis of diabetes.Reference: Standards of Medical Care in Diabetes 2016, [place] [employer]. Diabetes Care. 2016.39(Suppl 1).Performed By: #### 75576-9 ####[facility] LABIA [id number] [place] [address] [place] AMERICAPotassium [Moles/Vol]Normal [facility] on above:Order Comment: Specimen Type: BLOOD SPECIMENOrdering Facility: [facility] Address:[address] [place], [place] [address]Result Comment: Unable to assay due to interference from hemolysis. Suggest reorder as clinically indicated.Performed By: #### 51841-2 ####[facility] LABIA [id number] [place] [address] [place] AMERICAProtein [Mass/Vol]6.5 g/dLNormal 6.3-8.0[facility] on above:Order Comment: Specimen Type: BLOOD SPECIMENOrdering Facility: [facility] Address:[address] [place], [place] [address]Performed By: #### 34603-9 ####[facility] LABIA [id number] [place] [address] [place] AMERICASodium [Moles/Vol]131 mmol/PCkm545-614FezgmchftPremier Health Upper [facility] on above:Order Comment: Specimen Type: BLOOD SPECIMENOrdering Facility: [facility] Address:[address] [place], [place] [address]Performed By: #### 64603-9 ####[facility] LABCLIA [id number] [place] [address] [place] Urea nitrogen [Mass/Vol]11 mg/dLNormal9-24[facility] on above:Order Comment: Specimen Type: BLOOD SPECIMENOrdering Facility: [facility] Address:[address] [place], [place] [address]Performed By: #### 81202-4 ####[facility] LABCLIA [id number] [place] [address] [place] AMERICAECG COMPLETEon 91-30-0222VYM COMPLETENormalCNorwalk Memorial Hospital and Carbon monoxide panel (BldV)on 70-54-7585BYAU DEFICIT, VENOUS-1 mmol/TWoaqew-0-5MrrtyayepPremier Health [facility] on above:Order Comment: Specimen Type: VENOUS BLOOD SPECIMENOrdering Facility: [facility] Address: [address] [place], [place] [address]Performed By: #### 77448-8 ####[facility] LABCLIA [id number] [place] [address] [place] AMERICABody exylekmhbor23.6 [degF]NormalPremier Health Upper [facility] on above:Order Comment: Specimen Type: VENOUS BLOOD SPECIMENOrdering Facility: [facility] Address: [address] [place] [address] Performed By: #### 19157-7 ####[facility] LABCLIA [id number] [place] [address] [place] Calcium.ionized (Bld) [Mass/Vol]1.27 mmol/LNormal1.08-1.30[facility] on above:Order Comment: Specimen Type: VENOUS BLOOD SPECIMENOrdering Facility: [facility] Address: [address] [place], [place] [address]Performed By: #### 37722-3 ####[facility] LABCLIA [id number] [place] [address] [place] AMERICACalcium.ionized adjusted to pH 7.4 (BldA) [Moles/Vol]1.25 mmol/LNormal 1.08-1.30[facility] on above:Order Comment: Specimen Type: VENOUS BLOOD SPECIMENOrdering Facility: [facility] Ad dress: [address] [place], [place] [address]Performed By: #### 74929-5 ####[facility] [id number] [place] [address] [place] AMERICACarboxyhemoglobin (BldV) [Mass fraction]1.8 %Normal0.0-2.0[facility] on above:Order Comment: Specimen Type: VENOUS BLOOD SPECIMENOrdering Facility: [facility] Address: [address] [place], [place] [address]Result Comment: Carboxyhemoglobin Reference Range for Smokers: 2.0-8.0%Performed By: #### 41953- 4 ####[facility] [id number] [place] [address] [place] AMERICACO2 (BldV) [Partial pressure]42 mm[Hg]Jdsycp38-28MbbitrkmyPremier Health [facility] on above:Order Comment: Specimen Type: VENOUS BLOOD SPECIMENOrdering Facility: [facility] Address: [address] [place], [place] [address]Performed By: #### 95360-2 ####[facility] [id number] [place] [address] [place] AMERICAGlucose [Mass/Vol]110 mg/jDTlun80-960BddgmitkiPremier Health [facility] on above:Order Comment: Specimen Type: VENOUS BLOOD SPECIMENOrdering Facility: [facility] Address: [address] [place], [place] [address]Performed By: #### 34907-1 ####[facility] [id number] [place] [address] [place] OF AMERICAHCO3 (Bld) [Moles/Vol] 24 mmol/XZxnjsz75-54CehwprqdoPremier Health [facility] on above:Order Comment: Specimen Type: VENOUS BLOOD SPECIMENOrdering Facility: [facility] Address: [address] [place], [place] [address]Performed By: #### 89536-0 ####[facility] LABCLIA [id number] [place] [address] [place] AMERICAHematocrit (Bld) [Volume fraction]50.2 %Xtpooi35.0-51.0[facility] on above:Order Comment: Specimen Type: VENOUS BLOOD SPECIMENOrdering Facility: [facility] Address: [address] [place] [address] Performed By: #### 06945-3 ####[facility] LABIA [id number] [place] [address] [place] Hemoglobin (Bld) [Mass/Vol]16.4 g/eUKxilrp77.0-17.0[facility] Comment on above:Order Comment: Specimen Type: VENOUS BLOOD SPECIMENOrdering Facility: [facility] Address: [address] [place], [place] [address]Performed By: #### 66698-6 ####[facility] LABIA [id number] [place] [address] [place] Lactate [Moles/Vol]0.9 mmol/LNormal0.5-2.2CMercy Health [facility] on above:Order Comment: Specimen Type: VENOUS BLOOD SPECIMENOrdering Facility: [facility] Address: [address] [place] [address] Performed By: #### 46258-0 ####[facility] LABIA [id number] [place] [address] [place] LITERS2 Liters/minNormalClevelAtrium HealthComascension providence hospital on above:Order Comment: Specimen Type: VENOUS BLOOD SPECIMENOrdering Facility: [facility] Address: [address] [place], [place] [address]Performed By: #### 80603-4 ####[facility] LABCLIA [id number] [place] [address] [place] AMERICAMethemoglobin (Bld) [Mass fraction]1.4 %Normal0.0-1.5CMercy Health St[facility] on above: Order Comment: Specimen Type: VENOUS BLOOD SPECIMENOrdering Facility: [facility] Address: [address] [place], [place] [address]Performed By: #### 17919-9 ####[facility] LABIA [id number] [address] STATES OF AMERICAO2 THERAPYNC = Nasal CannulaNormalCMercy Health St. [facility] on above:Order Comment: Specimen Type: VENOUS BLOOD SPECIMENOrdering Facility: [facility] Ad dress: [address] [place], [place] [address]Performed By: #### 37616-6 ####[facility] LABIA [id number] [place] [address] [place] AMERICAOxygen (BldV) [Partial pressure] 55 mm[Hg]Wwxv42-83LesertnpzPrem[facility] Health [facility] on above:Order Comment: Specimen Type: VENOUS BLOOD SPECIMENOrdering Facility: [facility] Address: [address] [place], [place] [address]Performed By: #### 05824-9 ####[facility] LABIA [id number] [place] [address] [place] AMERICAOxygen saturation in Venous blood85 %Wdghvp40-69JkajkrdijPremier Health [facility] on above:Order Comment: Specimen Type: VENOUS BLOOD SPECIMENOrdering Facility: [facility] Address: [address] [place], [place] [address]Performed By: #### 50708-7 ####[facility] LABIA [id number] [place] [address] [place] AMERICAOxyhemoglobin (BldV) [Mass fraction]83 %Sezunt54-85HshnhrwcbPrem[facility] Health [facility] on above:Order Comment: Specimen Type: VENOUS BLOOD SPECIMENOrdering Facility: [facility] Address: [address] [place], [place] [address]Performed By: #### 12159-1 ####[facility] LABCLIA [id number] [place] [address] [place] AMERICApH (BldV)7.37 [pH] Normal7.32-7.42[facility] on above:Order Comment: Specimen Type: VENOUS BLOOD SPECIMENOrdering Facility: [facility] Address: [address] [place], [place] [address]Performed By: #### 63962-2 ####[facility] LABIA [id number] [place] [address] [place] AMERICAPotassium [Moles/Vol] 3.7 mmol/LNormal3.5-5.0[facility] on above:Order Comment: Specimen Type: VENOUS BLOOD SPECIMENOrdering Facility: [facility] Address: [address] [place], [place] [address]Performed By: #### 00042-0 ####[facility] LABIA [id number] [place] [address] [place] AMERICASodium [Moles/Vol]135 mmol/TEsj958-771BvptrbvjpPrem[facility] on above:Order Comment: Specimen Type: VENOUS BLOOD SPECIMENOrdering Facility: [facility] Address: [address] [place], [place] [address]Performed By: #### 02283-5 ####[facility] LABIA [id number] [place] [address] [place] AMERICABASE DEFICIT, VENOUS-1 mmol/IPfwhwb-9-7EbspseaqfPrem[facility] Health [facility] on above:Order Comment: Specimen Type: VENOUS BLOOD SPECIMENOrdering Facility: [facility] Address: [address] [place], [place] [address]Performed By: #### 66958-8 ####[facility] LABCLIA [id number] [place] [address] [place] AMERICABody ycxfaitwlov78.78 [degF]NormalPrem[facility] Health [facility] on above:Order Comment: Specimen Type: VENOUS BLOOD SPECIMENOrdering Facility: [facility] Ad dress: [address] [place], [place] [address]Performed By: #### 33273-7 ####[facility] LABCLIA [id number] [place] [address] [place] AMERICACalcium.ionized (Bld) [Mass/Vol] 1.09 mmol/LNormal1.08-1.30[facility] on above:Order Comment: Specimen Type: VENOUS BLOOD SPECIMENOrdering Facility: [facility] Address: [address] [place], [place] [address]Performed By: #### 45576-1 ####[facility] LABIA [id number] [place] [address] [place] AMERICACalcium.ionized adjusted to pH 7.4 (BldA) [Moles/Vol]1.07 mmol/LLow1.08-1.30[facility] on above:Order Comment: Specimen Type: VENOUS BLOOD SPECIMENOrdering Facility: [facility] Address: [address] [place], [place] [address]Performed By: #### 18778-6 ####[facility] LABIA [id number] [place] [address] [place] AMERICACarboxyhemoglobin (BldV) [Mass fraction]1.7 %Normal0.0-2.0[facility] on above:Order Comment: Specimen Type: VENOUS BLOOD SPECIMENOrdering Facility: [facility] Address: [address] [place], [place] [address]Result Comment: Carboxyhemoglobin Reference Range for Smokers: 2.0-8.0%Performed By: #### 03156-6 ####[facility] LABCLIA [id number] [address] [address] [place] AMERICACO2 (BldV) [Partial pressure]42 mm[Hg]Hdvbcq85-38UohbckpnmPrem[facility] on above:Order Comment: Specimen Type: VENOUS BLOOD SPECIMENOrdering Facility: [facility] Address: [address] [place], [place] [address]Performed By: #### 43753-1 ####[facility] LABCLIA [id number] [address] [address] [place] AMERICACO2 adjusted to patient's actual temperature (BldV) [Partial pressure]42 qlGcAdgfrh65-18GfsenefqoPremier Health [facility] on above:Order Comment: Specimen Type: VENOUS BLOOD SPECIMENOrdering Facility: [facility] Address: [address] [place], [place] [address]Performed By: #### 13830-4 ####[facility] LABIA [id number] [place] [id number] [place] AMERICADATE/TIME NOTIFIED [id number] [address] AMNormalPrem[facility] Health [facility] on above:Order Comment: Specimen Type: VENOUS BLOOD SPECIMENOrdering Facility: [facility] Address: [address] [place], [place] [address]Performed By: #### 02977-3 ####[facility] LABIA [id number] [address] [address] [place] AMERICAGlucose [Mass/Vol]106 mg/xHGmpl96-588EfcfpeekvPrem[facility] Health [facility] on above:Order Comment: Specimen Type: VENOUS BLOOD SPECIMENOrdering Facility: [facility] Address: [address] [place], [place] [address]Performed By: #### 85157-5 ####[facility] LABCLIA [id number] [address] [address] [place] AMERICAHCO3 (Bld) [Moles/Vol] 23 mmol/GKlt92-55RsfoapqcnPrem[facility] Health [facility] on above:Order Comment: Specimen Type: VENOUS BLOOD SPECIMENOrdering Facility: [facility] Address: [address] [place], [place] [address]Performed By: #### 61590-7 ####[facility] [id number] [place] [address] [place] AMERICAHematocrit (Bld) [Volume fraction]47.1 %Wdloab05.0-51.0[facility] HospitalComment on above:Order Comment: Specimen Type: VENOUS BLOOD SPECIMENOrdering Facility: [facility] Address: [address] [place] [address] Performed By: #### 53941-0 ####[facility] [id number] [place] [address] [place] Hemoglobin (Bld) [Mass/Vol]15.4 g/rTXmcbql46.0-17.0[facility] Comment on above:Order Comment: Specimen Type: VENOUS BLOOD SPECIMENOrdering Facility: [facility] Address: [address] [place], [place] [address]Performed By: #### 27220-2 ####[facility] [id number] [place] [address] [place] Lactate [Moles/Vol]1.4 mmol/LNormal0.5-2.2CGlenbeigh HospitalComment on above:Order Comment: Specimen Type: VENOUS BLOOD SPECIMENOrdering Facility: [facility] Address: [address] [place] [address] Performed By: #### 39039-9 ####[facility] LAB[facility] [id number] [place] [address] [place] Methemoglobin (Bld) [Mass fraction]1.3 %Normal0.0-1.5CGlenbeigh Hospital Comment on above:Order Comment: Specimen Type: VENOUS BLOOD SPECIMENOrdering Facility: [facility] Address: [address] [place], [place] [address]Performed By: #### 39614-5 ####[facility] LABCLIA [id number] [address] [address] [place] NOTIFIED WHOMS Terence DUARTE G053 Poppy KeeneBl[facility] on above:Order Comment: Specimen Type: VENOUS BLOOD SPECIMENOrdering Facility: [facility] Address: [address] [place], [place] [address] Performed By: #### 60985-2 ####[facility] LABCLIA [id number] [place] [id number] [place] O2 THERAPYRA=Room [facility]Aden[facility] on above:Order Comment: Specimen Type: VENOUS BLOOD SPECIMENOrdering Facility: [facility] Address: [address] [place], [place] [address]Performed By: #### 98801-5 ####[facility] LABCLIA [id number] [place] [address] [place] AMERICAOxygen (BldV) [Partial pressure]62 mm[Hg]Wxzy28-89EazejmwjhPremier Health [facility] on above:Order Comment: Specimen Type: VENOUS BLOOD SPECIMENOrdering Facility: [facility] Address: [address] [place], [place] [address]Performed By: #### 30415-5 ####[facility] LABCLIA [id number] [place] [id number] [place] AMERICAOxygen adjusted to patient's actual temperature (BldV) [Partial pressure]63 tpXfRrtd03-89MetxuwijoPremier Health [facility] on above:Order Comment: Specimen Type: VENOUS BLOOD SPECIMENOrdering Facility: [facility] Address: [address] [place], [place] [address]Performed By: #### 49964-1 ####[facility] LABCLIA [id number] [address] [address] [place] AMERICAOxygen saturation in Venous blood91 %Ibbv09-86MxkpkytymProtestant Deaconess Hospital Comment on above:Order Comment: Specimen Type: VENOUS BLOOD SPECIMENOrdering Facility: [facility] Address: [address] [place], [place] [address]Performed By: #### 31047-9 ####[facility] LABCLIA [id number] [place] [address] [place] Oxyhemoglobin (BldV) [Mass fraction]89 %Eekq50-46UivwoqtgxProtestant Deaconess Hospital Comment on above:Order Comment: Specimen Type: VENOUS BLOOD SPECIMENOrdering Facility: [facility] Address: [address] [place], [place] [address]Performed By: #### 10879-5 ####[facility] LABIA [id number] [place] [address] [place] pH (BldV)7.37 [pH]Normal7.32-7.42[facility]acon[facility] HospitalComment on above: Order Comment: Specimen Type: VENOUS BLOOD SPECIMENOrdering Facility: [facility] Address: [address] [place], [place] [address]Performed By: #### 82668-8 ####[facility] LABCLIA [id number] [place] [address] [place] AMERICApH adjusted to patient's actual temperature (BldV)7.83Bhdtjj5.32-7.42[facility] Comment on above:Order Comment: Specimen Type: VENOUS BLOOD SPECIMENOrdering Facility: [facility] Address: [address] [place], [place] [address]Performed By: #### 14676-8 ####[facility] LABCLIA [id number] [place] [address] [place] Potassium [Moles/Vol]NormalProtestant Deaconess HospitalComment on above:Order Comment: Specimen Type: VENOUS BLOOD SPECIMENOrdering Facility: [facility] Address: [address] [place], [place] [address]Result Comment: Unable to assay due to interference from hemolysis. Suggest reorder as clinically in dicated.Performed By: #### 76134-1 ####[facility] LABCLIA [id number] [place] [address] [place] Sodium [Moles/Vol]126 mmol/NIcm322-940SesofdblyPremier Health [facility] on above:Order Comment: Specimen Type: VENOUS BLOOD SPECIMENOrdering Facility: [facility] Address: [address] [place] [address] Performed By: #### 64474-7 ####[facility] [id number] [place] [address] [place] HISTORY PHYSICALon 74-62-5827QWSWKJG PHYSICALNormalCGlenbeigh Hospital MEDICAL EMERon 08-54-4552WZHTMWV EMERNormalCGlenbeigh HospitalMagnesium SerPl-mCncon 84-15-2175Eqphbggxa [Mass/Vol]1.8 mg/dLNormal1.7-2.3CMercy Health St[facility] on above:Order Comment: Specimen Type: BLOOD SPECIMENOrdering Facility: [facility] Address:[address] [place], [place] [address]Performed By: #### 35191-1, 60402-3, 2777-1 ####[facility] [id number] [address] [place] AMERICAPT panel Coag (PPP)on 99-63-7507VML Coag (PPP) [Relative time]1.0 {INR}Normal0.9-1.3CMercy Health St. [facility] on above: Order Comment: Specimen Type: BLOOD SPECIMENOrdering Facility: [facility] Address:[address] [place], [place] [address]Result Comment: Vitamin K Antagonist (VKA) Therapeutic Range: INR 2 to 3 (Target INR of 2.5)Note: For patients treated with VKA drugs, such as warfarin, the [employer] 2012 Guideline recommends a therapeutic INR range of 2 to 3 (target INR of 2.5). This recommendation includes high-risk patients with antiphospholipid syndrome with previous arterial or venous thromboembolism, current-generation mechanical or bioprosthetic aortic heart valve replacement.Note: Patients with mechanical aortic valve replacement and additional risk factors for thromboembolic events (atrialfibrillation, previous thromboembolism, LV dysfunction, hypercoagulable conditions) or an older gene ration mechanical AVR (i.e., ball in-Cage) or any mechanical MVR should have a INR therapeutic range of 2.5 to 3.5 (target INR of 3).Harley WILCOX, et al. Chest 2012, 141:7S-47SAdriana RA, et al. [facility] 2017, 70: 252-289Performed By: #### 84625-0, 50103-5 ####[facility] LABCLIA [id number] [place] [address] [place] AMERICAPT Coag (PPP) [Time] 11.0 sNormal9.7-13.0[facility]acon[facility] HospitalComascension providence hospital on above:Order Comment: Specimen Type: BLOOD SPECIMENOrdering Facility: [facility] Address:[address] [place], [place] [address]Performed By: #### 91227-6, 04909-9 ####[facility] LABCLIA [id number] [address] STATES OF AMERICAINR Coag (PPP) [Relative time]1.0 {INR}Normal0.9-1.3CGlenbeigh HospitalComascension providence hospital on above:Order Comment: Specimen Type: BLOOD SPECIMENOrdering Facility: [facility] Address:[address] [place], [place] [address]Result Comment: Vitamin K Antagonist (VKA) Therapeutic Range: INR 2 to 3 (Target INR of 2.5)Note: For patients treated with VKA drugs, such as warfarin, the [employer] 2012 Guideline recommends a therapeutic INR range of 2 to 3 (target INR of 2.5). This recommendation includes high-risk patients with antiphospholipid syndrome with previous arterial or venous thromboembolism, current-generation mechanical or bioprosthetic aortic heart valve replacement.Note: Patients with mechanical aortic valve replacement and additional risk factors for thromboembolic events (atrialfibrillation, previous thromboembolism, LV dysfunction, hypercoagulable conditions) or an older gene ration mechanical AVR (i.e., ball in-Cage) or any mechanical MVR should have a INR therapeutic range of 2.5 to 3.5 (target INR of 3).Petratt GH, et al. Chest 2012, 141:7S-47SNishimura RA, et al. [facility] 2017, 70: 252-289Performed By: #### 54060-4 ####[facility] LABCLIA [id number] [place] [address] [place] AMERICAPT Coag (PPP) [Time] 11.0 sNormal9.7-13.0[facility]acon[facility] HospitalComment on above:Order Comment: Specimen Type: BLOOD SPECIMENOrdering Facility: [facility] Address:[address] [place], [place] [address]Performed By: #### 49860-5 ####[facility] LABIA [id number] [place] [address] [place] AMERICAPhosphate SerPl-mCncon 07-03-2024 Phosphate [Mass/Vol]3.0 mg/dLNormal2.7-4.8CGlenbeigh HospitalComment on above:Order Comment: Specimen Type: BLOOD SPECIMENOrdering Facility: [facility] Address:[address] [place], [place] [address]Performed By: #### 05513-9, 22851-4, 2777-1 ####[facility] LABIA [id number] [place] [address] [place] STAPHYLOCOCCUS AUREUS AND MRSA SCREEN, PCR, NASALon 07-03-2024S. aureus and MRSA panel GERMÁN+probe (Nose)Not detectedNormalNot DetectedProtestant Deaconess Hospital Comment on above:Order Comment: Specimen Type: SWABOrdering Facility: [facility] Address: [address] [place], [place] [address]Performed By: #### SAPCR ####[facility] LABCLIA [id number] [place] [address] [place] AMERICATHERAPY NTon 47-74-4727BNHRYVK NTNormalCGlenbeigh HospitalXR ABDOMEN 1V SUPINEon 41-50-1197VI ABDOMEN 1V SUPINENormalClevelAtrium HealthXR ABDOMEN 1V SUPINENormalCGlenbeigh HospitalXR CHEST 1V FRONTAL PORTon 11-33-9487YJ CHEST 1V FRONTAL PORTNormalCGlenbeigh HospitalaPTT PPPon 77-57-2128mBCK Coag (PPP) [Time]28.1 aGgotnz83.0-32.4ClevelOhioHealth Grove City Methodist [facility] on above:Order Comment: Specimen Type: BLOOD SPECIMENOrdering Facility: [facility] Address:[address] [place], [place] [address]Performed By: #### 95348-1, 03845-5 ####[facility] LABCLIA [id number] [place] [id number] [place] AMERICABasic metabolic 2000 panelon 02-10-7200Hpgry gap [Moles/Vol]16 mmol/LHigh8-15[facility] on above:Order Comment: Specimen Type: BLOOD SPECIMENOrdering Facility: [facility] Address:[address] [place], [place] [address]Performed By: #### 94595-1, 60883-1, 50857-8, 2777-1 ####[facility] LABIA [id number] [place] [id number] [place] AMERICACalcium [Mass/Vol]8.8 mg/dLNormal8.5-10.2CMercy Health St[facility] on above:Order Comment: Specimen Type: BLOOD SPECIMENOrdering Facility: [facility] Address:[address] [place], [place] [address]Performed By: #### 65058-6, 40735-8, 73639-7, 2777-1 ####[facility] LABIA [id number] [place] [id number] [place] AMERICAChloride [Moles/Vol]101 mmol/L Elddfp52-773YgfsnifatPremier Health Upper [facility] Center on above:Order Comment: Specimen Type: BLOOD SPECIMENOrdering Facility: [facility] Address:[address] [place], [place] [address]Performed By: #### 94078-5, 46954-7, , 2776-12 ####[facility] LABIA [id number] [place] [address] [place] AMERICACO2 [Moles/Vol]18 mmol/ACod75-11 [facility] on above:Order Comment: Specimen Type: BLOOD SPECIMENOrdering Facility: [facility] Address:[address] [place], [place] [address]Performed By: #### 01364-4, 64610-4, , 2776-12 ####[facility] [id number] [place] [address] [place] AMERICACreatinine [Mass/Vol]0.99 mg/dL Normal0.73-1.22[facility] on above:Order Comment: Specimen Type: BLOOD SPECIMENOrdering Facility: [facility] Address:[address] [place], [place] [address]Performed By: #### 10380-1, 96719-6, , 2776-12 ####[facility] [id number] [place] [address] [place] AMERICACreatinine and Glomerular filtration rate.predicted panel (S/P/Bld)103 mL/min/1.73m???Normal >=60[facility] on above:Order Comment: Specimen Type: BLOOD SPECIMENOrdering Facility: [facility] Address:[address] [place], [place] [address]Result Comment: Estimated Glomerular Filtration Rate (eGFR) is calculated using the 2020 CKD-EPI creatinine equation. This equation utilizes serum creatinine, sex, and age as parameters. The creatinine assay has traceable calibration to isotope dilution-mass spectrometry. Refer to KDIGO guidelines for clinical interpretation. In patients with unstable renal function, e.g. those with acute kidney injury, the eGFR may not accurately reflect actual GFR.Performed By: #### 73401-6, 79101-4, , 2776-12 ####[facility] LABCLIA [id number] [address] [address] [place] AMERICAGlucose [Mass/Vol]91 mg/dLNormal 74-99[facility] on above:Order Comment: Specimen Type: BLOOD SPECIMENOrdering Facility: [facility] Address:[address] [place], [place] [address]Result Comment: The [place] [employer] (ADA) provides guidance for cutoff [...] unequivocal hyperglycemia, results should be confirmed by repeattesting. In a patient with classic symptoms of hyperglycemia or hyperglycemic crisis, random plasmaglucose results greater than or equal to 200 mg/dL meet the criteria for diagnosis of diabetes.Reference: Standards of Medical Care in Diabetes 2016, [employer]. Diabetes Care. 2016.39(Suppl 1).Performed By: #### 16204- 2, 44855-1, , 2776-12 ####[facility] LABCLIA [id number] [place] [address] [place] Potassium [Moles/Vol]NormalPremier Health Upper [facility] Center on above:Order Comment: Specimen Type: BLOOD SPECIMENOrdering Facility: [facility] Address:[address] [place], [place] [address]Result Comment: Unable to assay due to interference from hemolysis. Suggest reorder as clinically in dicated.Performed By: #### 56969-9, 07276-5, , 2776-12 ####[facility] LABCLIA [id number] [place] [address] [place] AMERICASodium [Moles/Vol]135 mmol/PHui914-750UqjcpygntPremier Health [facility] on above:Order Comment: Specimen Type: BLOOD SPECIMENOrdering Facility: [facility] Address:[address] [place] [id number] By: #### 36022-9, 48093-1, 45855-6, 2777-1 ####[facility] LABCLIA [id number] [place] [address] [place] AMERICAUrea nitrogen [Mass/Vol]11 mg/dL Normal9-24[facility] on above:Order Comment: Specimen Type: BLOOD SPECIMENOrdering Facility: [facility] Address:[address] [place], [place] [address]Performed By: #### 31841-6, 41773-4, 24486-5, 2777- ####[facility] LABCLIA [id number] [place] [address] [place] AMERICACASE MANAGEMon 35-84-5609QXRL MANAGEMNormalCleveland Clinic [facility] W Auto Differential panel (Bld)on 30-86-2159Wlmrhykvw (Bld) [#/Vol]0.08 10*3/uLNormal<0.11ClevelOhioHealth Grove City Methodist [facility] on above:Order Comment: Specimen Type: BLOOD SPECIMENOrdering Facility: [facility] Address:[address] [place], [place] [address]Performed By: #### 91319-6 ####[facility] LABCLIA [id number] [place] [address] [place] Basophils/100 WBC (Bld)0.8 %NormalPremier Health Upper [facility] on above: Order Comment: Specimen Type: BLOOD SPECIMENOrdering Facility: [facility] Address:[address] [place], [place] [address]Performed By: #### 72883- 8 ####[facility] LABCLIA [id number] [place] [address] [place] AMERICADifferential cell count method Nom (Bld)AutoNormalClevelOhioHealth Grove City Methodist Hospital on above:Order Comment: Specimen Type: BLOOD SPECIMENOrdering Facility: [facility] Address:[address] [place], [place] [address]Performed By: #### 47473-4 ####[facility] LABCLIA [id number] [place] [address] [place] AMERICAEosinophils (Bld) [#/Vol]0.59 10*3/uLHigh<0.46[facility] on above:Order Comment: Specimen Type: BLOOD SPECIMENOrdering Facility: [facility] Address:[address] [place], [place] [address]Performed By: #### 84282-5 ####[facility] LABCLIA [id number] [place] [address] [place] AMERICAEosinophils/100 WBC (Bld)5.8 % NormalPremier Health Upper [facility] Center on above:Order Comment: Specimen Type: BLOOD SPECIMENOrdering Facility: [facility] Address:[address] [place], [place] [address]Performed By: #### 30418-4 ####[facility] LABIA [id number] [place] [address] [place] AMERICAErythrocyte distribution width (RBC) [Ratio]14.7 %Normal 11.5-15.0[facility] on above:Order Comment: Specimen Type: BLOOD SPECIMENOrdering Facility: [facility] Address:[address] [place], [place] [address]Performed By: #### 67197-4 ####[facility] LABCLIA [id number] [place] [address] [place] AMERICAHematocrit (Bld) [Volume fraction]50.2 %Uiikkh68.0-51.0 [facility] on above:Order Comment: Specimen Type: BLOOD SPECIMENOrdering Facility: [facility] Address:[address] [place], [place] [address]Performed By: #### 55363-2 ####[facility] LABCLIA [id number] [place] [address] [place] AMERICAHemoglobin (Bld) [Mass/Vol]15.6 g/lRCasxdc96.0-17.0[facility]acon[facility] HospitalComment on above:Order Comment: Specimen Type: BLOOD SPECIMENOrdering Facility: [facility] Address:[address] [place], [place] [address]Performed By: #### 77572-6 ####[facility] LABCLIA [id number] [place] [address] [place] Immature granulocytes (Bld) [#/Vol]0.07 10*3/uLNormal<0.10[facility]aconess HospitalComment on above:Order Comment: Specimen Type: BLOOD SPECIMENOrdering Facility: [facility] Address:[address] [place], [place] [address]Performed By: #### 90998-2 ####[facility] LABCLIA [id number] [place] [address] [place] Immature granulocytes/100 WBC (Bld)0.7 %[facility] on above:Order Comment: Specimen Type: BLOOD SPECIMENOrdering Facility: [facility] Address:[address] [place] [address] Performed By: #### 54868-6 ####[facility] LABCLIA [id number] [place] [address] [place] Lymphocytes (Bld) [#/Vol]1.51 10*3/uLNormal1.00-4.00[facility] Comment on above:Order Comment: Specimen Type: BLOOD SPECIMENOrdering Facility: [facility] Address:[address] [place] [address] Performed By: #### 78215-6 ####[facility] LABCLIA [id number] [place] [address] [place] Lymphocytes/100 WBC (Bld)14.9 %NormalPremier Health Upper [facility] on above: Order Comment: Specimen Type: BLOOD SPECIMENOrdering Facility: [facility] Address:[address] [place], [place] [address]Performed By: #### 78703- 8 ####[facility] LABCLIA [id number] [address] (RBC) [Entitic mass]26.6 pg Oqxycw75.0-34.0[facility] on above:Order Comment: Specimen Type: BLOOD SPECIMENOrdering Facility: [facility] Address:[address] [place], [place] [address]Performed By: #### 62169-7 ####[facility] LABCLIA [id number] [address]HC (RBC) [Mass/Vol]31.1 g/dL Xkfxbo92.5-36.0[facility] on above:Order Comment: Specimen Type: BLOOD SPECIMENOrdering Facility: [facility] Address:[address] [place], [place] [address]Performed By: #### 02182-0 ####[facility] LABCLIA [id number] [address] (RBC) [Entitic vol]85.5 fL Wgiyxr96.0-100.0[facility] on above:Order Comment: Specimen Type: BLOOD SPECIMENOrdering Facility: [facility] Address:[address] [place], [place] [address]Performed By: #### 62612-2 ####[facility] LABCLIA [id number] [address]Monocytes (Bld) [#/Vol]0.89 10*3/uLHigh<0.87[facility] on above:Order Comment: Specimen Type: BLOOD SPECIMENOrdering Facility: [facility] Address:[address] [place], [place] [address]Performed By: #### 34098-1 ####[facility] LABCLIA [id number] [place] [address] [place] AMERICAMonocytes/100 WBC (Bld)8.8 % NormalPremier Health [facility] on above:Order Comment: Specimen Type: BLOOD SPECIMENOrdering Facility: [facility] Address:[address] [place], [place] [address]Performed By: #### 64363-4 ####[facility] LABCLIA [id number] [place] [address] [place] AMERICANeutrophils (Bld) [#/Vol]6.97 10*3/uLNormal1.45-7.50[facility] on above:Order Comment: Specimen Type: BLOOD SPECIMENOrdering Facility: [facility] Address:[address] [place], [place] [address]Performed By: #### 02075-7 ####[facility] LABCLIA [id number] [place] [address] [place] AMERICANeutrophils/100 WBC (Bld)69.0 %NormalPremier Health Upper [facility] on above:Order Comment: Specimen Type: BLOOD SPECIMENOrdering Facility: [facility] Address:[address] [place] [address] Performed By: #### 32155-5 ####[facility] LABCLIA [id number] [place] [address] [place] Nucleated RBC (Bld) [#/Vol]10*3/uLNormal<0.01[facility] on above:Order Comment: Specimen Type: BLOOD SPECIMENOrdering Facility: [facility] Address:[address] [place] [address] Performed By: #### 50882-5 ####[facility] LABCLIA [id number] [place] [address] [place] Nucleated RBC/100 WBC (Bld) [Ratio]0.0 /100 WBCNormalCGlenbeigh Hospital Comment on above:Order Comment: Specimen Type: BLOOD SPECIMENOrdering Facility: [facility] Address:[address] [place] [address] Performed By: #### 53887-3 ####[facility] LABCLIA [id number] [place] [address] [place] Platelet mean volume (Bld) [Entitic vol]11.6 fLNormal9.0-12.7CMercy Health St[facility] on above:Order Comment: Specimen Type: BLOOD SPECIMENOrdering Facility: [facility] Address:[address] [place], [place] [address]Performed By: #### 54831-6 ####[facility] LABIA [id number] [place] [address] [place] Platelets (Bld) [#/Vol]121 10*3/uPSho184-700NksccduosPremier Health [facility] on above:Order Comment: Specimen Type: BLOOD SPECIMENOrdering Facility: [facility] Address:[address] [place], [place] [address]Result Comment: Results checked and verified.No clot detected.Performed By: #### 99114-2 ####[facility] LABIA [id number] [place] [address] [place] AMERICARBC (Bld) [#/Vol]5.87 10*6/uL Normal4.20-6.00[facility] on above:Order Comment: Specimen Type: BLOOD SPECIMENOrdering Facility: [facility] Address:[address] [place], [place] [address]Performed By: #### 76717-7 ####[facility] LABIA [id number] [place] [address] [place] AMERICAWBC (Bld) [#/Vol]10.11 10*3/uL Normal3.70-11.00[facility] on above:Order Comment: Specimen Type: BLOOD SPECIMENOrdering Facility: [facility] Address:[address] [place], [place] [id number] By: #### 29049-6 ####[facility] LABCLIA [id number] [address] [address] [place] AMERICACONSULT PROGon 33-44-1104EATIKHK PROGNormalProtestant Deaconess HospitalHepatic function 2000 panelon 07-02-2024 Albumin [Mass/Vol]3.8 g/dLLow3.9-4.9CMercy Health St[facility] on above: Order Comment: Specimen Type: BLOOD SPECIMENOrdering Facility: [facility] Address:[address] [place], [place] [address]Performed By: #### 49452- 2, 74412-1, , 2776- ####[facility] LABCLIA [id number] [place] [id number] [place] AMERICAALP [Catalytic activity/Vol]97 U/GHtnxaj59-340HljxxioxiPremier Health [facility] on above:Order Comment: Specimen Type: BLOOD SPECIMENOrdering Facility: [facility] Address:[address] [place], [place] [address]Result Comment: Results may be falsely decreased due to interference from hemolysis. Suggest reorder as clinically indicated.Performed By: #### 46164-3, 12305-8, 53595-2, 7-1 ####[facility] LABCLIA [id number] [place] [id number] [place] AMERICAALT [Catalytic activity/Vol]172 U/SMigm44-88VtqmbtmprPremier Health [facility] on above:Order Comment: Specimen Type: BLOOD SPECIMENOrdering Facility: [facility] Address:[address] [place], [place] [address]Result Comment: Results may be falsely increased due to interference from hemolysis. Suggest reorder as clinically indicated. Performed By: #### 24034-7, 09442-7, 83279-0, 7-1 ####[facility] LABCLIA [id number] [place] [id number] [place] AMERICAAST [Catalytic activity/Vol]132 U/AXoiq12-09PqzdvqhjiPrem[facility] Health [facility] on above:Order Comment: Specimen Type: BLOOD SPECIMENOrdering Facility: [facility] Address:[address] [place], [place] [address]Result Comment: Results may be falsely increased due to interference from hemolysis. Suggest reorder as clinically indicated.Performed By: #### 29605-7, 00880-5, , 2776- ####[facility] LABCLIA [id number] [address] STATES OF AMERICABilirubin [Mass/Vol]1.0 mg/dLNormal0.2-1.3CMercy Health St[facility] on above:Order Comment: Specimen Type: BLOOD SPECIMENOrdering Facility: [facility] Address:[address] [place], [place] [address]Performed By: #### 98878- 2, 95475-1, , 2776-12 ####[facility] LABCLIA [id number] [place] [address] [place] Bilirubin.conjugated [Mass/Vol]mg/dLNormal<0.2CMercy Health St. [facility] on above:Order Comment: Specimen Type: BLOOD SPECIMENOrdering Facility: [facility] Address:[address] [place], [place] [address]Result Comment: Results may be falsely decreased due to interference from hemolysis. Suggest reorder as clinically indicated.Performed By: #### 45627-2, 29328-5, , 2776-12 ####[facility] LABCLIA [id number] [place] [address] [place] AMERICAProtein [Mass/Vol]6.7 g/dLNormal6.3-8.0[facility] on above:Order Comment: Specimen Type: BLOOD SPECIMENOrdering Facility: [facility] Address:[address] [place], [place] [address]Performed By: #### 39033-2, 67735-8, 67775-6, 2776- ####[facility] LABCLIA [id number] [place] [id number] [place] AMERICAMagnesium SerPl-mCncon 55-54-6759Vkxnjbmcw [Mass/Vol]2.0 mg/dLNormal1.7-2.3CGlenbeigh Hospital Comment on above:Order Comment: Specimen Type: BLOOD SPECIMENOrdering Facility: [facility] Address:[address] [place] [address] Performed By: #### 41674-4, 20514-8, , 2776-12 ####[facility] LABCLIA [id number] [place] [address] [place] AMERICAPhosphate SerPl-mCncon 28-09-5729Tzgfprkfd [Mass/Vol]3.0 mg/dL Normal2.7-4.8CGlenbeigh HospitalComment on above:Order Comment: Specimen Type: BLOOD SPECIMENOrdering Facility: [facility] Address:[address] [place], [place] [address]Performed By: #### 92671-5, 03025-1, , 2776-12 ####[facility] LABIA [id number] [place] [address] [place] AMERICATOXICOLOGY PANEL BLDon 54-92-6246Tsrnlcabxoesx [Mass/Vol]ug/uAJkx70-21VufhynhgsProtestant Deaconess HospitalComascension providence hospital on above:Order Comment: Specimen Type: BLOOD SPECIMENOrdering Facility: [facility] Address:[address] [place], [place] [address]Result Comment: Toxic > 150 ug/mL 4 hours post ingestionThe Jhoana Gordon nomogram can be used to estimate the probability of hepatotoxicity via the relationship of plasma acetaminophen concentration to the post ingestion interval. (Sonia. Pediatrics. 1975. 55:871 to 876 and Jhoanaet al. Arch Nursing Technician Med. 1981. 141:380 to 385).Reference ranges and high/low indicator flags are provided as general guidelines only. The treating physician must determine appropriate target levels/dosing based on the specific clinical situation.Performed By: #### TOXP ####[facility] LABCLIA [id number] [place] [address] [place] AMERICAEthanol [Mass/Vol]mg/dLNormal<11 [facility] on above:Order Comment: Specimen Type: BLOOD SPECIMENOrdering Facility: [facility] Address:[address] [place], [place] [address]Performed By: #### TOXP ####[facility] LABCLIA [id number] [place] [address] [place] AMERICASalicylates [Mass/Vol]mg/dLLow3.0-30.0[facility] on above:Order Comment: Specimen Type: BLOOD SPECIMENOrdering Facility: [facility] Address:[address] [place], [place] [address]Result Comment: The therapeutic range varies and has been reported to be 3.0 to 10.0 mg/dL for antipyretic/analgesic conditions and 15.0 to 30.0 mg/dL for anti inflammatory/rheumatic fever conditions. Ranges published by the instrument police matron.Reference ranges and high/low indicator flags areprovided as general guidelines only. The treating physician must determine appropriate target levels/dosing based on the specific clinical situation.Performed By: #### TOXP ####[facility] LABIA [id number] [place] [address] [place] AMERICATOXICOLOGY SCREEN, ROUTINE URINE on 85-22-5378Nmcnutiktevn Confirm (U) [Mass/Vol]PositiveAbnormalNegative [facility] on above:Order Comment: Specimen Type: URINE SPECIMENOrdering Facility: [facility] Address:[address] [place], [place] [address]Result Comment: Cutoff threshold at 1000 ng/mL.Performed By: #### UTOX2 ####[facility] LABIA [id number] [place] [address] [place] AMERICABARBITURATES, URINE NegativeNormalNegativePrem[facility] Health [facility] on above:Order Comment: Specimen Type: URINE SPECIMENOrdering Facility: [facility] Address:[address] [place], [place] [address]Result Comment: Cutoff threshold at 200 ng/mL.Performed By: #### UTOX2 ####[facility] LABCLIA [id number] [place] [address] [place] BENZODIAZEPINES, URPositiveAbnormalNegativeCleSelect Medical Specialty [facility] on above:Order Comment: Specimen Type: URINE SPECIMENOrdering Facility: [facility] Address:[address] [place], [place] [address]Result Comment: Cutoff threshold at 200 ng/mL.Performed By: #### UTOX2 ####[facility] LABIA [id number] [place] [address] [place] AMERICACannabinoids Screen Ql (U)PositiveAbnormalNegativePrem[facility] Health [facility] on above:Order Comment: Specimen Type: URINE SPECIMENOrdering Facility: [facility] Address:[address] [place], [place] [address]Result Comment: Cutoff threshold at 50 ng/mL.Performed By: #### UTOX2 ####[facility] LABIA [id number] [address] STATES OF AMERICACocaine Ql (U)Negative NormalNegativePrem[facility] Health [facility] on above:Order Comment: Specimen Type: URINE SPECIMENOrdering Facility: [facility] Address:[address] [place], [place] [address]Result Comment: Cutoff threshold at 300 ng/mL. Performed By: #### UTOX2 ####[facility] LABIA [id number] [place] [address] [place] AMERICAEthanol (U) [Mass/Vol]<11Normal<11ClevelOhioHealth Grove City Methodist Hospital on above:Order Comment: Specimen Type: URINE SPECIMENOrdering Facility: [facility] Address:[address] [place], [place] [address]Performed By: #### UTOX2 ####[facility] LABIA [id number] [address] STATES OF DELAWARE COUNTY HOSPITALOpiates Screen Ql (U)Positive AbnormalNegativePrem[facility] Health [facility] on above:Order Comment: Specimen Type: URINE SPECIMENOrdering Facility: [facility] Address:[address] [place], [place] [address]Result Comment: Cutoff threshold at 300 ng/mL.Performed By: #### UTOX2 ####[facility] [id number] [address] STATES [place] oxyCODONE cutoff Screen (U) [Mass/Vol]PositiveAbnormalNegativePrem[facility] Health [facility] on above:Order Comment: Specimen Type: URINE SPECIMENOrdering Facility: [facility] Address:[address] [place], [place] [address]Result Comment: Cutoff threshold at 100 ng/mL.Performed By: #### UTOX2 ####[facility] [id number] [address] STATES OF AMERICAPhencyclidine Ql (U)NegativeNormal NegativePremier Health [facility] on above:Order Comment: Specimen Type: URINE SPECIMENOrdering Facility: [facility] Address:[address] [place], [place] [address]Result Comment: Cutoff threshold at 25 ng/mL. Performed By: #### UTOX2 ####[facility] [id number] [place] [address] [place] AMERICABasic metabolic 2000 panelon 21-94-5632Qpuhk gap [Moles/Vol]16 mmol/LHigh8-15[facility] on above:Order Comment: Specimen Type: BLOOD SPECIMENOrdering Facility: [facility] Address:[address] [place], [place] [address]Performed By: #### 86335-0, 2777-1, 80739-4, 29409-5 ####[facility] LABCLIA [id number] [place] [id number] [place] AMERICACalcium [Mass/Vol]7.5 mg/dLLow 8.5-10.2CMercy Health St[facility] on above:Order Comment: Specimen Type: BLOOD SPECIMENOrdering Facility: [facility] Address:[address] [place], [place] [address]Result Comment: Result rechecked.Performed By: #### 36309-9, 2777-1, 21949-1, 68779-5 ####[facility] LABIA [id number] [place] [address] [place] Chloride [Moles/Vol]104 mmol/URvixhh01-455AtbzwadcePremier Health [facility] on above:Order Comment: Specimen Type: BLOOD SPECIMENOrdering Facility: [facility] Address:[address] [place], [place] [address]Performed By: #### 25526-8, 2777-1, 77169-0, 99803-8 ####[facility] LABIA [id number] [place] [address] [place] CO2 [Moles/Vol]16 mmol/KYnl90-37EnnpcrgozPremier Health [facility] on above:Order Comment: Specimen Type: BLOOD SPECIMENOrdering Facility: [facility] Address:[address] [place], [place] [address]Performed By: #### 27686- 9, 2777-1, 21753-9, 14755-4 ####[facility] LABCLIA [id number] [place] [address] [place] Creatinine [Mass/Vol]0.74 mg/dLNormal0.73-1.22[facility] on above:Order Comment: Specimen Type: BLOOD SPECIMENOrdering Facility: [facility] Address:[address] [place] [address] Performed By: #### 80637-7, 2777-1, 88834-3, 59622-9 ####[facility] LABIA [id number] [place] [id number] [place] AMERICACreatinine and Glomerular filtration rate.predicted panel (S/P/Bld)123 mL/min/1.73m???Normal>=60[facility] on above:Order Comment: Specimen Type: BLOOD SPECIMENOrdering Facility: [facility] Address:[address] [place], [place] [address]Result Comment: Estimated Glomerular Filtration Rate (eGFR) is calculated using the 2020 CKD-EPI creatinine equation. This equation utilizes serum creatinine, sex, and age as parameters. The creatinine assay has traceable calibration to isotope dilution- mass spectrometry. Refer to KDIGO guidelines for clinical interpretation. In patients with unstable renal function, e.g. those with acute kidney injury, the eGFR may not accurately reflect actual GFR.Performed By: #### 39006-3, 2777-1, 56090-2, 51991-5 ####[facility] LABCLIA [id number] [address] [address] [place] AMERICAGlucose [Mass/Vol]82 mg/uCSleksq26-18JibtkhpptPremier Health [facility] on above:Order Comment: Specimen Type: BLOOD SPECIMENOrdering Facility: [facility] Address:[address] [place], [place] [address]Result Comment: The [place] [employer] (ADA) provides guidance for cutoff [...] symptoms of hyperglycemia or hyperglycemic crisis, random plasmaglucose results greater than or equal to 200 mg/dL meet the criteria for diagnosis of diabetes.Reference: Standards of Medical Care in Diabetes 2016, [employer]. Diabetes Care. 2016.39(Suppl 1). Performed By: #### 68314-6, 2777-1, 43354-3, 00992-4 ####[facility] LABIA [id number] [place] [address] [place] AMERICAPotassium [Moles/Vol]4.1 mmol/LNormal3.7-5.1CMercy Health St[facility] on above:Order Comment: Specimen Type: BLOOD SPECIMENOrdering Facility: [facility] Address:[address] [place], [place] [address]Performed By: #### 76954-2, 2777-1, 87109-4, 70432-5 ####[facility] [id number] [place] [address] [place] AMERICASodium [Moles/Vol]136 mmol/UViafzq805-983CfvdxbuiePremier Health [facility] on above:Order Comment: Specimen Type: BLOOD SPECIMENOrdering Facility: [facility] Address:[address] [place], [place] [address]Performed By: #### 34928-1, 2777-1, 12100-8, 12107-4 ####[facility] [id number] [place] [address] [place] AMERICAUrea nitrogen [Mass/Vol]7 mg/dL Low9-24[facility] on above:Order Comment: Specimen Type: BLOOD SPECIMENOrdering Facility: [facility] Address:[address] [place], [place] [address]Performed By: #### 50091-7, 2777-1, 07385-6, 90605-2 ####[facility] [id number] [place] [id number] [place] AMERICACASE MGT INIT ASSESon 07-01-2024 CASE MGT INIT ASSESNormalCGlenbeigh HospitalCB W Auto Differential panel (Bld)on 65-51-2141Nucpzvnry (Bld) [#/Vol]0.03 10*3/uLNormal<0.11CMercy Health St[facility] on above:Order Comment: Specimen Type: BLOOD SPECIMENOrdering Facility: [facility] Address:[address] [place], [place] [address]Performed By: #### 37576-1 ####[facility] LABCLIA [id number] [place] [address] [place] AMERICABasophils/100 WBC (Bld)0.3 %NormalPremier Health Upper [facility] on above:Order Comment: Specimen Type: BLOOD SPECIMENOrdering Facility: [facility] Address:[address] [place], [place] [address]Performed By: #### 03744-1 ####[facility] LABCLIA [id number] [place] [address] [place] OF AMERICADifferential cell count method Nom (Bld)AutoNormalCMercy Health St. [facility] on above:Order Comment: Specimen Type: BLOOD SPECIMENOrdering Facility: [facility] Address:[address] [place], [place] [address]Performed By: #### 81819- 8 ####[facility] LABCLIA [id number] [place] [address] [place] AMERICAEosinophils (Bld) [#/Vol]10*3/uL Normal<0.46[facility] on above:Order Comment: Specimen Type: BLOOD SPECIMENOrdering Facility: [facility] Address:[address] [place], [place] [address]Performed By: #### 88734-3 ####[facility] LABCLIA [id number] [place] [address] [place] AMERICAEosinophils/100 WBC (Bld)0.0 %NormalPremier Health Upper Valley [facility] on above:Order Comment: Specimen Type: BLOOD SPECIMENOrdering Facility: [facility] Address:[address] [place], [place] [address]Performed By: #### 54995-3 ####[facility] LABCLIA [id number] [place] [address] [place] Erythrocyte distribution width (RBC) [Ratio]14.5 %Xrlztl68.5-15.0[facility] HospitalComment on above:Order Comment: Specimen Type: BLOOD SPECIMENOrdering Facility: [facility] Address:[address] [place], [place] [address]Performed By: #### 75307-8 ####[facility] LABIA [id number] [place] [address] [place] AMERICAHematocrit (Bld) [Volume fraction]39.0 %Cfaico51.0-51.0[facility] on above:Order Comment: Specimen Type: BLOOD SPECIMENOrdering Facility: [facility] Address:[address] [place], [place] [address]Performed By: #### 36258-1 ####[facility] [id number] [place] [address] [place] Hemoglobin (Bld) [Mass/Vol]12.3 g/dLLow13.0-17.0[facility] Comment on above:Order Comment: Specimen Type: BLOOD SPECIMENOrdering Facility: [facility] Address:[address] [place] [address] Performed By: #### 79454-9 ####[facility] LABIA [id number] [place] [address] [place] Immature granulocytes (Bld) [#/Vol]0.04 10*3/uLNormal<0.10[facility] on above:Order Comment: Specimen Type: BLOOD SPECIMENOrdering Facility: [facility] Address:[address] [place], [place] [address]Performed By: #### 61893-0 ####[facility] LABIA [id number] [place] [address] [place] Immature granulocytes/100 WBC (Bld)0.4 %NormalPremier Health Upper [facility] Center on above:Order Comment: Specimen Type: BLOOD SPECIMENOrdering Facility: [facility] Address:[address] [place] [address] Performed By: #### 84301-4 ####[facility] LABCLIA [id number] [place] [address] [place] Lymphocytes (Bld) [#/Vol]0.96 10*3/uLLow1.00-4.00[facility] Comment on above:Order Comment: Specimen Type: BLOOD SPECIMENOrdering Facility: [facility] Address:[address] [place] [address] Performed By: #### 84654-9 ####[facility] LABIA [id number] [address] STATES OF [facility] Lymphocytes/100 WBC (Bld)10.3 %NormalPremier Health Upper Valley [facility] Center on above: Order Comment: Specimen Type: BLOOD SPECIMENOrdering Facility: [facility] Address:[address] [place], [place] [address]Performed By: #### 48403- 8 ####[facility] LABIA [id number] [address] (RBC) [Entitic mass]27.1 pg Pekehr49.0-34.0[facility] on above:Order Comment: Specimen Type: BLOOD SPECIMENOrdering Facility: [facility] Address:[address] [place], [place] [address]Performed By: #### 87400-4 ####[facility] LABIA [id number] [address] (RBC) [Mass/Vol]31.5 g/dL Xpfetj89.5-36.0[facility] on above:Order Comment: Specimen Type: BLOOD SPECIMENOrdering Facility: [facility] Address:[address] [place], [place] [address]Performed By: #### 63786-6 ####[facility] LABCLIA [id number] [place] [address] [place] AMERICAMCV (RBC) [Entitic vol]85.9 fL Xdrhlq32.0-100.0[facility] on above:Order Comment: Specimen Type: BLOOD SPECIMENOrdering Facility: [facility] Address:[address] [place], [place] [address]Performed By: #### 90857-0 ####[facility] LABIA [id number] [place] [address] [place] AMERICAMonocytes (Bld) [#/Vol]0.90 10*3/uLHigh<0.87[facility] on above:Order Comment: Specimen Type: BLOOD SPECIMENOrdering Facility: [facility] Address:[address] [place], [place] [address]Performed By: #### 42525-0 ####[facility] LABIA [id number] [place] [address] [place] AMERICAMonocytes/100 WBC (Bld)9.7 % NormalPremier Health Upper [facility] on above:Order Comment: Specimen Type: BLOOD SPECIMENOrdering Facility: [facility] Address:[address] [place], [place] [address]Performed By: #### 07409-7 ####[facility] LABIA [id number] [place] [address] [place] AMERICANeutrophils (Bld) [#/Vol]7.37 10*3/uLNormal1.45-7.50[facility] on above:Order Comment: Specimen Type: BLOOD SPECIMENOrdering Facility: [facility] Address:[address] [place], [place] [address]Performed By: #### 91960-2 ####[facility] LABIA [id number] [place] [address] [place] AMERICANeutrophils/100 WBC (Bld)79.3 %NormalPremier Health Upper [facility] on above:Order Comment: Specimen Type: BLOOD SPECIMENOrdering Facility: [facility] Address:[address] [place] [address] Performed By: #### 00824-8 ####[facility] LABCLIA [id number] [place] [address] [place] Nucleated RBC (Bld) [#/Vol]10*3/uLNormal<0.01[facility] on above:Order Comment: Specimen Type: BLOOD SPECIMENOrdering Facility: [facility] Address:[address] [place] [address] Performed By: #### 41017-2 ####[facility] LABIA [id number] [place] [address] [place] Nucleated RBC/100 WBC (Bld) [Ratio]0.0 /100 WBCNormalCGlenbeigh Hospital Comment on above:Order Comment: Specimen Type: BLOOD SPECIMENOrdering Facility: [facility] Address:[address] [place] [address] Performed By: #### 45755-8 ####[facility] LABIA [id number] [place] [address] [place] Platelet mean volume (Bld) [Entitic vol]11.5 fLNormal9.0-12.7CMercy Health St[facility] on above:Order Comment: Specimen Type: BLOOD SPECIMENOrdering Facility: [facility] Address:[address] [place], [place] [address]Performed By: #### 84845-6 ####[facility] LABIA [id number] [place] [address] [place] Platelets (Bld) [#/Vol]108 10*3/tHCjm231-157AmrluwevxPremier Health [facility] on above:Order Comment: Specimen Type: BLOOD SPECIMENOrdering Facility: [facility] Address:[address] [place], [place] [address]Performed By: #### 05466-4 ####[facility] LABCLIA [id number] [address]RB (Bld) [#/Vol]4.54 10*6/uLNormal4.20-6.00[facility] on above:Order Comment: Specimen Type: BLOOD SPECIMENOrdering Facility: [facility] Address:[address] [place], [place] [address]Performed By: #### 92467-6 ####[facility] LABCLIA [id number] [address]ETWBC (Bld) [#/Vol]9.30 10*3/uL Normal3.70-11.00[facility] on above:Order Comment: Specimen Type: BLOOD SPECIMENOrdering Facility: [facility] Address:[address] [place], [place] [address]Performed By: #### 93657-1 ####[facility] LABCLIA [id number] [address]CB panel Auto (Bld)on 07-01-2024 Erythrocyte distribution width (RBC) [Ratio]15.3 %High11.5-15.0[facility] on above:Order Comment: Specimen Type: BLOOD SPECIMENOrdering Facility: [facility] Address:[address] [place], [place] [address]Performed By: #### 86775-1 ####[facility] LABCLIA [id number] [address] Hematocrit (Bld) [Volume fraction]45.7 %Osfxne28.0-51.0[facility] on above:Order Comment: Specimen Type: BLOOD SPECIMENOrdering Facility: [facility] Address:[address] [place], [place] [address]Performed By: #### 12393-3 ####[facility] LABCLIA [id number] [place] [address] [place] Hemoglobin (Bld) [Mass/Vol]14.9 g/uHYeemfv37.0-17.0[facility] Comment on above:Order Comment: Specimen Type: BLOOD SPECIMENOrdering Facility: [facility] Address:[address] [place] [address] Performed By: #### 58779-4 ####[facility]ENTERIA [id number] [place] [address] [place] MCH (RBC) [Entitic mass]27.7 coBoaxsz37.0-34.0[facility] HospitalComment on above:Order Comment: Specimen Type: BLOOD SPECIMENOrdering Facility: [facility] Address:[address] [place] [address] Performed By: #### 32725-7 ####[facility] [id number] [place] [address] [place] MCHC (RBC) [Mass/Vol]32.6 g/xCXtwzgy75.5-36.0[facility] HospitalComment on above:Order Comment: Specimen Type: BLOOD SPECIMENOrdering Facility: [facility] Address:[address] [place] [address] Performed By: #### 38628-2 ####[facility] [id number] [place] [address] [place] MCV (RBC) [Entitic vol]85.1 yRDcyzoi13.0-100.0[facility] HospitalComascension providence hospital on above:Order Comment: Specimen Type: BLOOD SPECIMENOrdering Facility: [facility] Address:[address] [place] [address] Performed By: #### 27379-9 ####[facility] [id number] [place] [address] [place] Nucleated RBC (Bld) [#/Vol]10*3/uLNormal<0.01[facility] on above:Order Comment: Specimen Type: BLOOD SPECIMENOrdering Facility: [facility] Address:[address] [place] [address] Performed By: #### 69192-1 ####[facility] LABCLIA [id number] [place] [address] [place] Platelet mean volume (Bld) [Entitic vol]12.3 fLNormal9.0-12.7CMercy Health St. [facility] on above:Order Comment: Specimen Type: BLOOD SPECIMENOrdering Facility: [facility] Address:[address] [place], [place] [address]Performed By: #### 97882-5 ####[facility] LABCLIA [id number] [place] [address] [place] Platelets (Bld) [#/Vol]133 10*3/uHVdr752-128QfwshqdnaPrem[facility] Health [facility] on above:Order Comment: Specimen Type: BLOOD SPECIMENOrdering Facility: [facility] Address:[address] [place], [place] [address]Performed By: #### 05841-9 ####[facility] LABIA [id number] [place] [address] [place] AMERICARBC (Bld) [#/Vol]5.37 10*6/uLNormal4.20-6.00[facility] on above:Order Comment: Specimen Type: BLOOD SPECIMENOrdering Facility: [facility] Address:[address] [place], [place] [address]Performed By: #### 79549-6 ####[facility] LABCLIA [id number] [place] [address] [place] AMERICAWBC (Bld) [#/Vol]7.99 10*3/uL Normal3.70-11.00[facility] on above:Order Comment: Specimen Type: BLOOD SPECIMENOrdering Facility: [facility] Address:[address] [place], [place] [address]Performed By: #### 71297-8 ####[facility] LABCLIA [id number] [place] [address] [place] AMERICACONSULT PROGon 75-36-6675FXLBHHU PROGNormalProtestant Deaconess HospitalComprehensive metabolic 2000 panelon 52-86-5123Cspgnlf [Mass/Vol]4.0 g/dLNormal3.9-4.9CGlenbeigh Hospital Comment on above:Order Comment: Specimen Type: BLOOD SPECIMENOrdering Facility: [facility] Address:[address] [place], [place] [address]Result Comment: Result rechecked.Performed By: #### 2324-2, 76307-6 ####[facility] LABCLIA [id number] [place] [address] [place] AMERICAALP [Catalytic activity/Vol]90 U/UKigbnj09-051 [facility] on above:Order Comment: Specimen Type: BLOOD SPECIMENOrdering Facility: [facility] Address:[address] [place], [place] [address]Performed By: #### 2324-2, 06257-3 ####[facility] LABCLIA [id number] [place] [address] [place]ALT [Catalytic activity/Vol]214 U/CPwmn82-29ZecldgjqsPremier Health [facility] on above:Order Comment: Specimen Type: BLOOD SPECIMENOrdering Facility: [facility] Address:[address] [place], [place] [address]Performed By: #### 2324-2, 84355-2 ####[facility] LABCLIA [id number] [address] [address] [place] Anion gap [Moles/Vol]11 mmol/LNormal8-15[facility] on above:Order Comment: Specimen Type: BLOOD SPECIMENOrdering Facility: [facility] Address:[address] [place], [place] [address]Performed By: #### 2324-2, 60501-5 ####[facility] LABCLIA [id number] [place] [address] [place] AMERICAAST [Catalytic activity/Vol]176 U/GJatw92-32PgztsoivkPremier Health [facility] on above:Order Comment: Specimen Type: BLOOD SPECIMENOrdering Facility: [facility] Address:[address] [place], [place] [address]Result Comment: Results may be falsely increased due to interference from hemolysis. Suggest reorder as clinically indicated.Performed By: #### 2324-2, 41325-4 ####[facility] LABCLIA [id number] [place] [address] [place] AMERICABilirubin [Mass/Vol]1.5 mg/dLHigh0.2-1.3CMercy Health St[facility] on above:Order Comment: Specimen Type: BLOOD SPECIMENOrdering Facility: [facility] Address:[address] [place], [place] [address]Performed By: #### 2324-2, 46897-9 ####[facility] LABIA [id number] [address] STATES OF AMERICACalcium [Mass/Vol]8.4 mg/dLLow8.5-10.2CMercy Health St[facility] on above:Order Comment: Specimen Type: BLOOD SPECIMENOrdering Facility: [facility] Address:[address] [place], [place] [address] Performed By: #### 2324-2, 84056-3 ####[facility] LABIA [id number] [place] [address] [place] Chloride [Moles/Vol]101 mmol/WXaqbwt34-945SidznapynPremier Health [facility] on above:Order Comment: Specimen Type: BLOOD SPECIMENOrdering Facility: [facility] Address:[address] [place], [place] [address]Performed By: #### 2324-2, 89250-7 ####[facility] LABIA [id number] [place] [id number] [place] AMERICACO2 [Moles/Vol]25 mmol/LNongqz70-38WnuljozwhPremier Health [facility] on above:Order Comment: Specimen Type: BLOOD SPECIMENOrdering Facility: [facility] Address:[address] [place], [place] [address]Performed By: #### 2324-2, ####[facility]ENTERIA [id number] [place] [address] [place] AMERICACreatinine [Mass/Vol]1.02 mg/dL Normal0.73-1.22[facility] on above:Order Comment: Specimen Type: BLOOD SPECIMENOrdering Facility: [facility] Address:[address] [place], [place] [address]Performed By: #### 2324-2, ####[facility] [id number] [place] [address] [place] AMERICACreatinine and Glomerular filtration rate.predicted panel (S/P/Bld)100 mL/min/1.73m???Normal>=60[facility] on above:Order Comment: Specimen Type: BLOOD SPECIMENOrdering Facility: [facility] Address:[address] [place], [place] [address]Result Comment: Estimated Glomerular Filtration Rate (eGFR) is calculated using the 2020 CKD-EPI creatinine equation. This equation utilizes serum creatinine, sex, and age as parameters. The creatinine assay has traceable calibration to isotope dilution-mass spectrometry. Refer to KDIGO guidelines for clinical interpretation. In patients with unstable renal function, e.g. those with acute kidney injury, the eGFR may not accurately reflect actual GFR.Performed By: #### 2324-2, 34550-2 ####[facility] LABIA [id number] [place] [id number] [place] AMERICAGlucose [Mass/Vol]102 mg/oCHsuy81-00KdnmtjfvhProtestant Deaconess Hospital Comment on above:Order Comment: Specimen Type: BLOOD SPECIMENOrdering Facility: [facility] Address:[address] [place], [place] [address]Result Comment: The [place] [employer] (ADA) provides guidance for cutoff values for fasting glucose and random glucose. The ADA defines fasting as no caloric intake for at least 8 hours. Fasting plasma glucose results between 100 to 125 mg/dL indicate increased risk for diabetes (prediabetes).Fasting plasma glucose results greater than or equal to 126 mg/dL meet the criteria for diagno sis of diabetes. In the absence of unequivocal hyperglycemia, results should be confirmed by repeattesting. In a patient with classic symptoms of hyperglycemia or hyperglycemic crisis, random plasmaglucose results greater than or equal to 200 mg/dL meet the criteria for diagnosis of diabetes.Reference: Standards of Medical Care in Diabetes 2016, [employer]. Diabetes Care. 2016.39(Suppl 1).Performed By: #### 2324-2, 76767-8 ####[facility] LABCLIA [id number] [place] [address] [place] AMERICAPotassium [Moles/Vol]4.1 mmol/LNormal3.7-5.1CGlenbeigh HospitalComment on above:Order Comment: Specimen Type: BLOOD SPECIMENOrdering Facility: [facility] Address:[address] [place], [place] [address]Performed By: #### 2324-2, 32228-8 ####[facility] LABCLIA [id number] [place] [address] [place] AMERICAProtein [Mass/Vol]6.4 g/dLNormal6.3-8.0[facility] on above:Order Comment: Specimen Type: BLOOD SPECIMENOrdering Facility: [facility] Address:[address] [place], [place] [address]Result Comment: Result rechecked.Performed By: #### 2324-2, 16487-7 ####[facility] LABCLIA [id number] [place] [address] [place] AMERICASodium [Moles/Vol]137 mmol/SHvxplj778-162ApvzfibikPremier Health [facility] on above:Order Comment: Specimen Type: BLOOD SPECIMENOrdering Facility: [facility] Address:[address] [place], [place] [address]Performed By: #### 2324-2, 37494-4 ####[facility] LABCLIA [id number] [place] [address] [place] AMERICAUrea nitrogen [Mass/Vol]10 mg/dLNormal9-24[facility] on above:Order Comment: Specimen Type: BLOOD SPECIMENOrdering Facility: [facility] Address:[address] [place], [place] [address]Performed By: #### 2324-2, 26480-4 ####[facility]ENTERIA [id number] [place] [address] [place] AMERICAEthanol Gas chromatography [Mass/Vol]on 60-18-5445Esvxbee [Mass/Vol]mg/dL Normal<5CMercy Health St. [facility] on above:Order Comment: Specimen Type: BLOOD SPECIMENOrdering Facility: [facility] Address:[address] [place], [place] [address]Result Comment: Therapeutic range for methanol toxicity 100 - 150 mg/dL.Source: AACT Practice Guidelines on the Treatment of Methanol Poisoning.For medical purposes only. Not valid for forensic use.This test was developed and its performance characteristics determined by [facility]'s Iraj Huston [facility] [place] ([facility]). It has not been cleared or approvedby the FDA. -[facility] is regulated under CLIA as qualified to perform high-complexity testing. This test is used for clinical purposes. It should not be regarded as investigational or for research. Performed By: #### 15107-1 ####[facility] LABCLIA [id number] [place] [address] [place] Ethanol SerPl-mCncon 10-40-1016Cfajzcd [Mass/Vol]mg/dLNormal<11CMercy Health St[facility] on above:Order Comment: Specimen Type: BLOOD SPECIMENOrdering Facility: [facility] Address:[address] [place], [place] [address]Performed By: #### 5643-2 ####[facility] LABCLIA [id number] [address] [address] [place] GGT SerPl-cCncon 93-56-8228Dtgjn glutamyl transferase [Catalytic activity/Vol] 199 U/XQedj46-92VxfnpwbpkPremier Health [facility] on above:Order Comment: Specimen Type: BLOOD SPECIMENOrdering Facility: [facility] Address:[address] [place], [place] [address]Performed By: #### 2324-2, 90106-2 ####[facility] LABCLIA [id number] [place] [address] [place] AMERICAHepatic function 2000 panelon 00-60-3148Fxcbbdq [Mass/Vol]2.6 g/dLLow3.9-4.9CMercy Health St[facility] on above:Order Comment: Specimen Type: BLOOD SPECIMENOrdering Facility: [facility] Address:[address] [place], [place] [address]Result Comment: Result rechecked.Performed By: #### 72198-4, 2777-1, 98140-3, 81721-3 ####[facility] LABCLIA [id number] [place] [address] [place] AMERICAALP [Catalytic activity/Vol]54 U/MUxblre35-327NqxtwqkalPremier Health [facility] on above:Order Comment: Specimen Type: BLOOD SPECIMENOrdering Facility: [facility] Address:[address] [place], [place] [address]Performed By: #### 49773-9, 2777-1, 86916-1, 76739-9 ####[facility] LABCLIA [id number] [place] [address] [place] AMERICAALT [Catalytic activity/Vol]113 U/YArin51-17HppfzssvrPremier Health [facility] on above:Order Comment: Specimen Type: BLOOD SPECIMENOrdering Facility: [facility] Address:[address] [place], [place] [address]Performed By: #### 84961- 9, 2777-1, 57882-3, 35431-7 ####[facility] LABCLIA [id number] [place] [address] [place] AMERICAAST [Catalytic activity/Vol]100 U/UUsip56-24VtcnocvrfPremier Health [facility] on above:Order Comment: Specimen Type: BLOOD SPECIMENOrdering Facility: [facility] Address:[address] [place], [place] [address]Performed By: #### 99269-4, 2777-1, 70139-9, 87942-4 ####[facility] LABCLIA [id number] [place] [address] [place] Bilirubin [Mass/Vol]0.8 mg/dLNormal0.2-1.3CAultman Hospitalment on above:Order Comment: Specimen Type: BLOOD SPECIMENOrdering Facility: [facility] Address:[address] [place], [place] [address]Performed By: #### 97430-4, 2777-1, 49166-9, 01345-4 ####[facility] LABCLIA [id number] [place] [address] [place] Bilirubin.conjugated [Mass/Vol]mg/dLNormal<0.2CMercy Health St[facility] on above:Order Comment: Specimen Type: BLOOD SPECIMENOrdering Facility: [facility] Address:[address] [place] [address] Performed By: #### 13625-2, 2777-1, 86591-4, 11486-3 ####[facility] LABCLIA [id number] [place] [id number] [place] AMERICAProtein [Mass/Vol]4.2 g/dLLow6.3-8.0[facility] Comment on above:Order Comment: Specimen Type: BLOOD SPECIMENOrdering Facility: [facility] Address:[address] [place] [address]Fwzdmz Comment: Result rechecked.Performed By: #### 12421-0, 2777-1, 23321-1, 88250-1 ####[facility] LABCLIA [id number] [place] [id number] [place] AMERICAMagnesium SerPl-mCncon 07-01-2024 Magnesium [Mass/Vol]1.2 mg/dLLow1.7-2.3CMercy Health St[facility] on above:Order Comment: Specimen Type: BLOOD SPECIMENOrdering Facility: [facility] Address:[address] [place], [place] [address]Performed By: #### 88181-2, 2777-1, 32481-3, 02686-5 ####[facility] LABCLIA [id number] [address] [place] PT panel Coag (PPP)on 85-77-5444RTQ Coag (PPP) [Relative time]1.0 {INR}Normal 0.9-1.3CMercy Health St[facility] on above:Order Comment: Specimen Type: BLOOD SPECIMENOrdering Facility: [facility] Address:[address] [place] [address]Zcdmea Comment: Vitamin K Antagonist (VKA) Therapeutic Range: INR 2 to 3 (Target INR of 2.5)Note: For patients treated with VKA drugs, such as warfarin, the [employer] 2012 Guideline recommends a therapeutic INR range of 2 to 3 (target INR of 2.5). This recommendation includes high-risk patients with antiphospholipid syndrome with previous arterial or venous thromboembolism, current-generation mechanical or bioprosthetic aortic heart valve replacement.Note: Patients with mechanical aortic valve replacement and additional risk factors for thromboembolic events (atrialfibrillation, previous thromboembolism, LV dysfunction, hypercoagulable conditions) or an older generation mechanical AVR (i.e., ball in-Cage) or any mechanical MVR should have a INR therapeutic range of 2.5 to 3.5 (target INR of 3).Harley WILCOX, et al. Chest 2012, 141:7S-47SAdriana RA, et al. JACC 2017, 70: 252-289Performed By: #### 77090-8 ####[facility] [id number] [place] [address] [place] PT Coag (PPP) [Time]11.1 sNormal9.7-13.0Pro[facility] Deaconess HospitalComment on above:Order Comment: Specimen Type: BLOOD SPECIMENOrdering Facility: [facility] Address:[address] [place], [place] [address]Performed By: #### 08466-5 ####[facility] [id number] [place] [address] [place] AMERICAPhosphate SerPl-mCncon 24-42-0247Jypskzsbh [Mass/Vol]2.4 mg/dLLow2.7-4.8CGlenbeigh Hospital Comment on above:Order Comment: Specimen Type: BLOOD SPECIMENOrdering Facility: [facility] Address:[address] [place] [address] Performed By: #### 46217-2, 2777-1, 27865-4, 76789-3 ####[facility] [id number] [place] [address] [place] AMERICAANES POSTPROC EVALon 31-98-7066MVNP POSTPROC EVALNormal [facility] Deaconess HospitalBRIEF OP NOTon 48-60-4483HLNKX OP NOTNormalCGlenbeigh HospitalCONSULTon 67-48-8095HEJAXQOTwfypaYmedbwjce [facility] NURSING PROGon 40-01-2190VGYMKTL PROGNormalProtestant Deaconess HospitalOPERATIVE NOon 48-34-4795KRNDJIULP NONormalProtestant Deaconess HospitalANES PRE-OPon 69-37-7417ZIGB PRE-OPNormalProtestant Deaconess HospitalCBC W Auto Differential panel (Bld)on 30-61-8097Nddejkmqf (Bld) [#/Vol]0.09 10*3/uLNormal<0.11CMercy Health [facility] on above:Order Comment: Specimen Type: BLOOD SPECIMENOrdering Facility: [facility] Address:[address] [place], [place] [address]Performed By: #### 95171-4 ####[facility] LABCLIA [id number] [place] [address] [place] AMERICABasophils/100 WBC (Bld)1.5 %NormalPremier Health Upper [facility] on above:Order Comment: Specimen Type: BLOOD SPECIMENOrdering Facility: [facility] Address:[address] [place], [place] [address]Performed By: #### 36709-6 ####[facility] LABCLIA [id number] [place] [address] [place] AMERICADifferential cell count method Nom (Bld)AutoNormalCMercy Health St. [facility] on above:Order Comment: Specimen Type: BLOOD SPECIMENOrdering Facility: [facility] Address:[address] [place], [place] [address]Performed By: #### 33638- 8 ####[facility] LABCLIA [id number] [place] [address] [place] AMERICAEosinophils (Bld) [#/Vol]0.21 10*3/uLNormal<0.46[facility] on above:Order Comment: Specimen Type: BLOOD SPECIMENOrdering Facility: [facility] Address:[address] [place], [place] [address]Performed By: #### 24003-0 ####[facility] LABCLIA [id number] [place] [address] [place] AMERICAEosinophils/100 WBC (Bld)3.4 % NormalPremier Health Upper Valley Medical Center on above:Order Comment: Specimen Type: BLOOD SPECIMENOrdering Facility: [facility] Address:[address] [place], [place] [address]Performed By: #### 47455-6 ####[facility] LABIA [id number] [place] [address] [place] AMERICAErythrocyte distribution width (RBC) [Ratio]14.6 %Normal 11.5-15.0[facility] on above:Order Comment: Specimen Type: BLOOD SPECIMENOrdering Facility: [facility] Address:[address] [place], [place] [address]Performed By: #### 61393-3 ####[facility] LABIA [id number] [place] [address] [place] AMERICAHematocrit (Bld) [Volume fraction]49.7 %Fmgacn14.0-51.0 [facility] on above:Order Comment: Specimen Type: BLOOD SPECIMENOrdering Facility: [facility] Address:[address] [place], [place] [address]Performed By: #### 88053-3 ####[facility] [id number] [place] [address] [place] AMERICAHemoglobin (Bld) [Mass/Vol]15.9 g/iXOqhilq55.0-17.0[facility] on above:Order Comment: Specimen Type: BLOOD SPECIMENOrdering Facility: [facility] Address:[address] [place], [place] [address]Performed By: #### 84084-9 ####[facility] [id number] [place] [address] [place] Immature granulocytes (Bld) [#/Vol]0.04 10*3/uLNormal<0.10[facility] on above:Order Comment: Specimen Type: BLOOD SPECIMENOrdering Facility: [facility] Address:[address] [place], [place] [address]Performed By: #### 66728-1 ####[facility] [id number] [place] [address] [place] Immature granulocytes/100 WBC (Bld)0.6 %NormalPremier Health Upper Valley Medical Center on above:Order Comment: Specimen Type: BLOOD SPECIMENOrdering Facility: [facility] Address:[address] [place] [address] Performed By: #### 87831-4 ####[facility] LABCLIA [id number] [place] [address] [place] Lymphocytes (Bld) [#/Vol]1.10 10*3/uLNormal1.00-4.00[facility] Comment on above:Order Comment: Specimen Type: BLOOD SPECIMENOrdering Facility: [facility] Address:[address] [place] [address] Performed By: #### 01957-0 ####[facility] LABCLIA [id number] [address] [place] Lymphocytes/100 WBC (Bld)17.9 %NormalPremier Health Upper Valley Medical Center on above: Order Comment: Specimen Type: BLOOD SPECIMENOrdering Facility: [facility] Address:[address] [place], [place] [address]Performed By: #### 44588- 8 ####[facility] LABCLIA [id number] [address] (RBC) [Entitic mass]26.8 pg Fknqxb21.0-34.0[facility] on above:Order Comment: Specimen Type: BLOOD SPECIMENOrdering Facility: [facility] Address:[address] [place], [place] [address]Performed By: #### 40509-8 ####[facility] LABCLIA [id number] [address] (RBC) [Mass/Vol]32.0 g/dL Gueywc85.5-36.0[facility] on above:Order Comment: Specimen Type: BLOOD SPECIMENOrdering Facility: [facility] Address:[address] [place], [place] [address]Performed By: #### 35553-7 ####[facility] LABCLIA [id number] [place] [address] [place] AMERICAMCV (RBC) [Entitic vol]83.8 fL Wjruam18.0-100.0[facility] on above:Order Comment: Specimen Type: BLOOD SPECIMENOrdering Facility: [facility] Address:[address] [place], [place] [address]Performed By: #### 42966-0 ####[facility] LABIA [id number] [place] [address] [place] AMERICAMonocytes (Bld) [#/Vol]0.50 10*3/uLNormal<0.87[facility] on above:Order Comment: Specimen Type: BLOOD SPECIMENOrdering Facility: [facility] Address:[address] [place], [place] [address]Performed By: #### 81596-3 ####[facility] LABIA [id number] [place] [address] [place] AMERICAMonocytes/100 WBC (Bld)8.1 % NormalPremier Health Upper Valley [facility] Center on above:Order Comment: Specimen Type: BLOOD SPECIMENOrdering Facility: [facility] Address:[address] [place], [place] [address]Performed By: #### 34084-2 ####[facility] LABIA [id number] [place] [address] [place] AMERICANeutrophils (Bld) [#/Vol]4.22 10*3/uLNormal1.45-7.50[facility] on above:Order Comment: Specimen Type: BLOOD SPECIMENOrdering Facility: [facility] Address:[address] [place], [place] [address]Performed By: #### 83180-3 ####[facility] LABIA [id number] [place] [address] [place] AMERICANeutrophils/100 WBC (Bld)68.5 %NormalPremier Health Upper Valley Medical Center on above:Order Comment: Specimen Type: BLOOD SPECIMENOrdering Facility: [facility] Address:[address] [place] [address] Performed By: #### 02785-2 ####[facility] LABCLIA [id number] [place] [address] [place] Nucleated RBC (Bld) [#/Vol]10*3/uLNormal<0.01[facility] on above:Order Comment: Specimen Type: BLOOD SPECIMENOrdering Facility: [facility] Address:[address] [place] [address] Performed By: #### 82302-0 ####[facility] LABCLIA [id number] [place] [address] [place] Nucleated RBC/100 WBC (Bld) [Ratio]0.0 /100 WBCNormalCGlenbeigh Hospital Comment on above:Order Comment: Specimen Type: BLOOD SPECIMENOrdering Facility: [facility] Address:[address] [place] [address] Performed By: #### 69357-8 ####[facility] LABCLIA [id number] [place] [address] [place] Platelet mean volume (Bld) [Entitic vol]12.3 fLNormal9.0-12.7CMercy Health St. [facility] on above:Order Comment: Specimen Type: BLOOD SPECIMENOrdering Facility: [facility] Address:[address] [place], [place] [address]Performed By: #### 02664-6 ####[facility] LABCLIA [id number] [place] [address] [place] Platelets (Bld) [#/Vol]165 10*3/gFXtijfg380-578EspfoiijrPremier Health Upper [facility] Center on above:Order Comment: Specimen Type: BLOOD SPECIMENOrdering Facility: [facility] Address:[address] [place] [address] Performed By: #### 62393-8 ####[facility] LABIA [id number] [place] [address] [place] RBC (Bld) [#/Vol]5.93 10*6/uLNormal4.20-6.00[facility] on above:Order Comment: Specimen Type: BLOOD SPECIMENOrdering Facility: [facility] Address:[address] [place], [place] [address]Performed By: #### 20818-8 ####[facility] [id number] [place] [address] [place] [facility]AWARE COUNTY HOSPITALWBC (Bld) [#/Vol]6.16 10*3/uLNormal3.70-11.00[facility] on above:Order Comment: Specimen Type: BLOOD SPECIMENOrdering Facility: [facility] Address:[address] [place], [place] [address]Performed By: #### 29311-9 ####[facility] [id number] [place] [address] [place] AMERICAComprehensive metabolic 2000 panelon 94-90-4247Dovhuel [Mass/Vol]4.9 g/dLNormal3.9-4.9CMercy Health St[facility] on above:Order Comment: Specimen Type: BLOOD SPECIMENOrdering Facility: [facility] Address:[address] [place], [place] [address]Performed By: #### 75785-6 ####[facility] [id number] [place] [address] [place] ALP [Catalytic activity/Vol]107 U/FOpntdb06-715MdykkkqtePremier Health Upper Valley Medical Center on above:Order Comment: Specimen Type: BLOOD SPECIMENOrdering Facility: [facility] Address:[address] [place] [address] Performed By: #### 35519-2 ####[facility] LABCLIA [id number] [address] [address] [place] ALT [Catalytic activity/Vol]198 U/RRoqb62-09MimiacamnPremier Health Upper [facility] Center on above:Order Comment: Specimen Type: BLOOD SPECIMENOrdering Facility: [facility] Address:[address] [place], [place] [address]Performed By: #### 39302-9 ####[facility] LABCLIA [id number] [place] [address] [place] AMERICAAnion gap [Moles/Vol] 14 mmol/LNormal8-15[facility] on above:Order Comment: Specimen Type: BLOOD SPECIMENOrdering Facility: [facility] Address:[address] [place], [place] [address]Performed By: #### 07971-8 ####[facility] LABCLIA [id number] [place] [address] [place] AMERICAAST [Catalytic activity/Vol]164 U/RAzdx66-11KnjutwgvePremier Health Upper Valley [facility] Center on above:Order Comment: Specimen Type: BLOOD SPECIMENOrdering Facility: [facility] Address:[address] [place], [place] [address]Performed By: #### 21056-5 ####[facility] LABCLIA [id number] [place] [address] [place] AMERICABilirubin [Mass/Vol]0.8 mg/dLNormal0.2-1.3CMercy Health St. [facility] on above:Order Comment: Specimen Type: BLOOD SPECIMENOrdering Facility: [facility] Address:[address] [place], [place] [address]Performed By: #### 94020-3 ####[facility] LABCLIA [id number] [place] [address] [place] AMERICACalcium [Mass/Vol]10.2 mg/dLNormal8.5-10.2CGlenbeigh Hospital Comment on above:Order Comment: Specimen Type: BLOOD SPECIMENOrdering Facility: [facility] Address:[address] [place] [address] Performed By: #### 43972-3 ####[facility] LABCLIA [id number] [place] [address] [place] Chloride [Moles/Vol]100 mmol/VCkfwam17-144AsacndmvyPremier Health Upper [facility] Center on above:Order Comment: Specimen Type: BLOOD SPECIMENOrdering Facility: [facility] Address:[address] [place], [place] [address]Performed By: #### 86049-6 ####[facility] LABCLIA [id number] [place] [address] [place] AMERICACO2 [Moles/Vol]22 mmol/VBkmrnh01-32GfesmtrssCincinnati Shriners Hospitalment on above:Order Comment: Specimen Type: BLOOD SPECIMENOrdering Facility: [facility] Address:[address] [place], [place] [address]Performed By: #### 32422-4 ####[facility] LABCLIA [id number] [place] [address] [place] AMERICACreatinine [Mass/Vol]0.95 mg/dL Normal0.73-1.22Pro[facility]aconess HospitalComascension providence hospital on above:Order Comment: Specimen Type: BLOOD SPECIMENOrdering Facility: [facility] Address:[address] [place], [place] [address]Performed By: #### 15488-1 ####[facility] LABCLIA [id number] [place] [address] [place] AMERICACreatinine and Glomerular filtration rate.predicted panel (S/P/Bld)108 mL/min/1.73m???Normal>=60[facility] on above:Order Comment: Specimen Type: BLOOD SPECIMENOrdering Facility: [facility] Address:[address] [place], [place] [address]Result Comment: Estimated Glomerular Filtration Rate (eGFR) is calculated using the 2020 CKD-EPI creatinine equation. This equation utilizes serum creatinine, sex, and age as parameters. The creatinine assay has traceable calibration to isotope dilution-mass spectrometry. Refer to KDIGO guidelines for clinical interpretation. In patients with unstable renal function, e.g. those with acute kidney injury, the eGFR may not accurately reflect actual GFR.Performed By: #### 37851-9 ####[facility] LABIA [id number] [place] [address] [place] AMERICAGlucose [Mass/Vol]106 mg/qZLcaj99-23UfabljgpvProtestant Deaconess HospitalComment on above:Order Comment: Specimen Type: BLOOD SPECIMENOrdering Facility: [facility] Address:[address] [place], [place] [address]Result Comment: The [employer] (ADA) provides guidance for cutoff [...] unequivocal hyperglycemia, results should be confirmed by repeattesting. In a patient with classic symptoms of hyperglycemia or hyperglycemic crisis, random plasmaglucose results greater than or equal to 200 mg/dL meet the criteria for diagnosis of diabetes.Reference: Standards of Medical Care in Diabetes 2016, [employer]. Diabetes Care. 2016.39(Suppl 1).Performed By: #### 03962-1 ####[facility] LABIA [id number] [place] [id number] [place] AMERICAPotassium [Moles/Vol]4.5 mmol/LNormal3.7-5.1CGlenbeigh Hospital Comment on above:Order Comment: Specimen Type: BLOOD SPECIMENOrdering Facility: [facility] Address:[address] [place] [address] Performed By: #### 62836-3 ####[facility] LABIA [id number] [place] [id number] [place] Protein [Mass/Vol]7.8 g/dLNormal6.3-8.0[facility] on above:Order Comment: Specimen Type: BLOOD SPECIMENOrdering Facility: [facility] Address:[address] [place], [place] [address]Performed By: #### 44305-6 ####[facility] LABCLIA [id number] [place] [address] [place] AMERICASodium [Moles/Vol]136 mmol/LFxpdkz865-049ZivpmnfliPremier Health [facility] on above:Order Comment: Specimen Type: BLOOD SPECIMENOrdering Facility: [facility] Address:[address] [place], [place] [address]Performed By: #### 13496-8 ####[facility] LABCLIA [id number] [place] [address] [place] AMERICAUrea nitrogen [Mass/Vol]10 mg/dL Normal9-24[facility] on above:Order Comment: Specimen Type: BLOOD SPECIMENOrdering Facility: [facility] Address:[address] [place], [place] [address]Performed By: #### 06155-7 ####[facility] LABCLIA [id number] [place] [address] [place] HCVXTSVLCF59vy 05-36-1824DOH95ChchoyUwzmgavgx [facility] [place] HISTORY PHYSICALon 75-03-7268FOPVBPM PHYSICALNormalCGlenbeigh HospitalPT panel Coag (PPP)on 17-07-4052EXV Coag (PPP) [Relative time]1.1 {INR}Normal 0.9-1.3CMercy Health St. [facility] on above:Order Comment: Specimen Type: BLOOD SPECIMENOrdering Facility: [facility] Address:[address] [place], [place] [address]Result Comment: Vitamin K Antagonist (VKA) Therapeutic Range: INR 2 to 3 (Target INR of 2.5)Note: For patients treated with VKA drugs, such as warfarin, the [employer] 2012 Guideline recommends a therapeutic INR range of 2 to 3 (target INR of 2.5). This recommendation includes high-risk patients with antiphospholipid syndrome with previous arterial or venous thromboembolism, current-generation mechanical or bioprosthetic aortic heart valve replacement.Note: Patients with mechanical aortic valve replacement and additional risk factors for thromboembolic events (atrialfibrillation, previous thromboembolism, LV dysfunction, hypercoagulable conditions) or an older generation mechanical AVR (i.e., ball in-Cage) or any mechanical MVR should have a INR therapeutic range of 2.5 to 3.5 (target INR of 3).Harley GH, et al. Chest 2012, 141:7S-47SNishimradha RA, et al. [facility] 2017, 70: 252-289Performed By: #### 19105-5, 34966-7 ####[facility] LABCLIA [id number] [place] [address] [place] AMERICAPT Coag (PPP) [Time]11.2 sNormal9.7-13.0[facility] on above:Order Comment: Specimen Type: BLOOD SPECIMENOrdering Facility: [facility] Address:[address] [place] [address] Performed By: #### 60034-6, 68209-2 ####[facility] LABCLIA [id number] [address] [place] TYPE AND SCREEN,30 DAYon 85-80-2158OMCDLciryvXjjadohnzLutheran Hospital on above:Order Comment: Specimen Type: BLOOD SPECIMENOrdering Facility: [facility] Address:[facility] [place] [address] Performed By: #### [id number] ####[facility] BLOOD BANKCLIA [id number] [place] [address] [place] AMERICAHISTORICAL AB SCR STATUSNegativeNoLutheran Hospital on above:Order Comment: Specimen Type: BLOOD SPECIMENOrdering Facility: [facility] Address:[address] [place], [place] [address]Performed By: #### [id number] ####[facility] BLOOD BANKCLIA [id number] [place] [address] [place] AMERICARh Nom (Bld)PositiveNormalCGlenbeigh Hospital Comment on above:Order Comment: Specimen Type: BLOOD SPECIMENOrdering Facility: [facility] Address:[address] [place] [address] Performed By: #### [id number] ####[facility] BLOOD BANKCLIA [id number] [address] STATES OF DEL[facility] COUNTY HOSPITALaPTT PPPon 06-29-2024 aPTT Coag (PPP) [Time]27.7 uFliyjh97.0-32.4CGlenbeigh HospitalComment on above:Order Comment: Specimen Type: BLOOD SPECIMENOrdering Facility: [facility] Address:[address] [place], [place] [address]Result Comment: Frozen Plasma AliquotPerformed By: #### 99252-7, 46731-6 ####[facility] LABCLIA [id number] [address] OF [facility] COUNTY HOSPITALHISTORY PHYSICALon 74-68-2984QUNCZOO PHYSICALNormal [facility]aconess HospitalCNOVon 19-99-7759BDDKTvphvc Visit (JULIANO) ANGELITA MOMIN ([id number]) 1990 M [place] Date Time Provider Department 05/28/24 10:15 AM [...] a Temperature: No Drains: No patient declined 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 Jayleen Becker for an opinion regarding hernia. My final recommendations will be communicated back to the requesting physician by way of shared medical record or letter via US mail [facility] - HISTORY [...] transfusion Pneumonia 03/21/2010 SBO (small bowel obstruction) ([facility]) 11/06/2015 - CT : bowl obstruction with transition point at the [facility] -NPO -IVF -pain control -Phenergen for [...] 08/31/2010 Performed by FRANCO GARCIA at [facility] PAST SURGICAL HISTORY OF 03/2008 2 lung [...] Reported on 09/17/2023) naloxone (more content not included)...NormalHillcrest HospitalCNOVNormal Protestant Deaconess HospitalA1AT SerPl-mCncon 81-70-3106Uijpp 1 antitrypsin [Mass/Vol]131 mg/jETwbqxu28-888BlbhrvjdcProtestant Deaconess HospitalComascension providence hospital on above:Order Comment: Specimen Type: BLOOD SPECIMENOrdering Facility: [facility] Address:[address] [place], [place] [address]Performed By: #### 1825- 9, 2064-4, 59729-7, 45101-5 ####[facility] LABCLIA [id number] [place] [address] [place] AMERICABLOOD TB SCREEN, INCUBATEDon 05-21-2024M. tuberculosis tuberculin stim IFN-g Ql (Bld) NegativeNormalCGlenbeigh HospitalComascension providence hospital on above:Order Comment: Specimen Type: BLOOD SPECIMENOrdering Facility: [facility] Address: [address] [place], [place] [address]Performed By: #### INTPGP ####[facility] LABCLIA [id number] [place] [address] [place] AMERICAMITOGEN MINUS NIL>9.98Normal>=0.50[facility] on above:Order Comment: Specimen Type: BLOOD SPECIMENOrdering Facility: [facility] Address: [address] [place], [place] [address]Performed By: #### INTPGP ####[facility] LABCLIA [id number] [place] [address] [place] TB GAMMA INTERPRETATIONNormalCGlenbeigh HospitalComascension providence hospital on above:Order Comment: Specimen Type: BLOOD SPECIMENOrdering Facility: [facility] Address: [address] [place], [place] [address]Performed By: #### INTPGP ####[facility] LABCLIA [id number] [address] [id number] [address] [place] AMERICATB NIL0.02 IU/mLNormal<=8.00 [facility] on above:Order Comment: Specimen Type: BLOOD SPECIMENOrdering Facility: [facility] Address: [address] [place], [place] [address]Performed By: #### INTPGP ####[facility] LABCLIA [id number] [place] [address] [place] AMERICATB1 AG MINUS NIL0.19 IU/mLNormal<0.35[facility] on above:Order Comment: Specimen Type: BLOOD SPECIMENOrdering Facility: [facility] Address: [address] [place], [place] [address]Performed By: #### INTPGP ####[facility] LABCLIA [id number] [place] [address] [place] TB2 AG MINUS NIL0.15 IU/mLNormal<0.35[facility] on above: Order Comment: Specimen Type: BLOOD SPECIMENOrdering Facility: [facility] Address: [address] [place], [place] [address]Performed By: #### INTPGP ####[facility] LABCLIA [id number] [place] [address] [place] AMERICACBC panel Auto (Bld)on 03-21-0067Feumtymyotd distribution width (RBC) [Ratio]15.5 %High11.5-15.0 [facility] on above:Order Comment: Specimen Type: BLOOD SPECIMENOrdering Facility: [facility] Address:[address] [place], [place] [address]Performed By: #### 51803-7 ####[facility] LABCLIA [id number] [place] [address] [place] AMERICAHematocrit (Bld) [Volume fraction]49.8 %Oxnsdr00.0-51.0[facility] on above:Order Comment: Specimen Type: BLOOD SPECIMENOrdering Facility: [facility] Address:[address] [place], [place] [address]Performed By: #### 64062-2 ####[facility] LABIA [id number] [place] [address] [place] Hemoglobin (Bld) [Mass/Vol]16.2 g/nSCcnoeg16.0-17.0[facility] Comment on above:Order Comment: Specimen Type: BLOOD SPECIMENOrdering Facility: [facility] Address:[address] [place] [address] Performed By: #### 55291-6 ####[facility] LABIA [id number] [place] [address] [place] MCH (RBC) [Entitic mass]26.6 hiQsqgpr67.0-34.0[facility] HospitalComment on above:Order Comment: Specimen Type: BLOOD SPECIMENOrdering Facility: [facility] Address:[address] [place] [address] Performed By: #### 23847-5 ####[facility] [id number] [place] [address] [place] MCHC (RBC) [Mass/Vol]32.5 g/xVTkverl05.5-36.0[facility] HospitalComment on above:Order Comment: Specimen Type: BLOOD SPECIMENOrdering Facility: [facility] Address:[address] [place] [address] Performed By: #### 07174-7 ####[facility] LABIA [id number] [place] [address] [place] MCV (RBC) [Entitic vol]81.6 zVSfwxxy02.0-100.0[facility] HospitalComascension providence hospital on above:Order Comment: Specimen Type: BLOOD SPECIMENOrdering Facility: [facility] Address:[address] [place] [address] Performed By: #### 94780-6 ####[facility] LABIA [id number] [place] [address] [place] Nucleated RBC (Bld) [#/Vol]10*3/uLNormal<0.01[facility] on above:Order Comment: Specimen Type: BLOOD SPECIMENOrdering Facility: [facility] Address:[address] [place] [address] Performed By: #### 10987-9 ####[facility] LABIA [id number] [place] [address] [place] Platelet mean volume (Bld) [Entitic vol]11.7 fLNormal9.0-12.7CMer[facility] on above:Order Comment: Specimen Type: BLOOD SPECIMENOrdering Facility: [facility] Address:[address] [place], [place] [address]Performed By: #### 27245-4 ####[facility] LABIA [id number] [place] [address] [place] Platelets (Bld) [#/Vol]156 10*3/nZPitdjw447-113QaetytdwnPremier Health [facility] on above:Order Comment: Specimen Type: BLOOD SPECIMENOrdering Facility: [facility] Address:[address] [place] [address] Performed By: #### 24044-0 ####[facility] LABIA [id number] [place] [address] [place] RBC (Bld) [#/Vol]6.10 10*6/uLHigh4.20-6.00[facility] on above:Order Comment: Specimen Type: BLOOD SPECIMENOrdering Facility: [facility] Address:[address] [place], [place] [address]Performed By: #### 92376-7 ####[facility] LABIA [id number] [place] [address] [place] AMERICAWBC (Bld) [#/Vol]7.19 10*3/uLNormal3.70-11.00[facility] on above:Order Comment: Specimen Type: BLOOD SPECIMENOrdering Facility: [facility] Address:[address] [place], [place] [address]Performed By: #### 44059-5 ####[facility] LABCLIA [id number] [place] AVENUEDESK [address]CR SerPl-mCncon 84-19-3826BXN [Mass/Vol]1.3 mg/dLHigh<0.9CMercy Health St[facility] on above:Order Comment: Specimen Type: BLOOD SPECIMENOrdering Facility: [facility] Address:[address] [place], [place] [address]Performed By: #### 1988- 5, HSTNT ####[facility] LABCLIA [id number] [place] [address] UEDESK [address]ETCT ENTEROGRAPHY W IVCONon 43-02-1447XD ENTEROGRAPHY W IVCONNormalProtestant Deaconess HospitalCT Small bowel W contrast PO and W contrast Shadi 22-03-1822JDAXRGAYDK: Persistent but improved mild changes of active inflammatory small bowel Crohn's disease with luminal narrowing involving the neoterminal ileum. Scattered fluid-filled upstream small bowel loops, some which are mildly dilated, similar to prior. Penetrating: Absent Hepatic steatosis. Food Dehydrator Operator: [facility]PITALSapna Transcribe Date/Time: May 21 2024 3:22P Dictated by : UCHE ACOSTA MD This examination was interpreted and the report reviewed and electronically signed by: UCHE ACOSTA MD on May 21 2024 4:24PM [facility] DIVISION OF RADIOLOGY* * *Final Report* * * DATE OF EXAM: May 21 2024 2:45PM [facility] 0545 - CT ENTEROGRAPHY W IVCON [...] Tissues: No acute findings. Lung Bases: Unremarkable. Road Equipment Operator (topogram) images: No additional findings. DIVISION OF RADIOLOGYProvider, [facility] [place] - 05/21/2024 * * *Final Report* * * DATE OF EXAM: May 21 2024 2:45PM [facility] 0545 - CT ENTEROGRAPHY W IVCON [...] Tissues: No acute findings. Lung Bases: Unremarkable. Road Equipment Operator (topogram) images: No additional findings. IMPRESSION IMPRESSION: Persistent but improved mild changes of active inflammatory small bowel Crohn's disease with luminal narrowing involving the neoterminal ileum. Scattered fluid-filled upstream small bowel loops, some which are mildly dilated, similar to prior. Penetrating: Absent Hepatic steatosis. Food Dehydrator Operator: PSCSapna Transcribe Date/Time: May 21 2024 3:22P Dictated by : UCHE ACOSTA MD This examination was interpreted and the report reviewed and electronically signed by: UCHE ACOSTA MD on May 21 2024 4:24PM [facility] observation (narrative)[facility] Small bowel W contrast PO and W contrast IVOrdered By: Ccf Provider on 05-21-2024 [facility] HospitalCeruloplasmin SerPl-mCncon 07-01-1707Xujjushixaogn [Mass/Vol]20 mg/xTDopfoh30-60ZyjggfrhyPrem[facility] Health [facility] on above:Order Comment: Specimen Type: BLOOD SPECIMENOrdering Facility: [facility] Address:[address] [place], [place] [address]Performed By: #### 1825-9, 2063-4, 04176-4, 30701-5 ####[facility] LABCLIA [id number] [place] [address] [place] AMERICAComprehensive metabolic 2000 panelon 11-87-1225Owiwkgv [Mass/Vol]4.9 g/dLNormal3.9-4.9 [facility] on above:Order Comment: Specimen Type: BLOOD SPECIMENOrdering Facility: [facility] Address:[address] [place], [place] [address]Performed By: #### 1825-9, 2063-4, 97324-4, 15941-3 ####[facility] LABIA [id number] [place] [id number] [place] AMERICAALP [Catalytic activity/Vol]119 U/URayx50-106NqizhqczcPrem[facility] Health [facility] on above:Order Comment: Specimen Type: BLOOD SPECIMENOrdering Facility: [facility] Address:[address] [place], [place] [address]Performed By: #### 1825-9, 2063-4, 32453-3, 30035-9 ####[facility] LABIA [id number] [place] [id number] [place] AMERICAALT [Catalytic activity/Vol]156 U/GRaxi87-32TufvxhxkePrem[facility] Health [facility] on above:Order Comment: Specimen Type: BLOOD SPECIMENOrdering Facility: [facility] Address:[address] [place], [place] [address]Performed By: #### 1825- 9, 2063-4, 70091-1, 78161-4 ####[facility] LABCLIA [id number] [place] [id number] [place] AMERICAAnion gap [Moles/Vol]14 mmol/LNormal8-15[facility] on above: Order Comment: Specimen Type: BLOOD SPECIMENOrdering Facility: [facility] Address:[address] [place], [place] [address]Performed By: #### 1825- 9, 2063-, 90178-9, 78474-5 ####[facility] LABCLIA [id number] [place] [id number] [place] AMERICAAST [Catalytic activity/Vol]108 U/NNutr62-52BhicfvyjkPrem[facility] Health [facility] on above:Order Comment: Specimen Type: BLOOD SPECIMENOrdering Facility: [facility] Address:[address] [place], [place] [address]Performed By: #### 1825-9, 2064-03, 67237-3, 77818-2 ####[facility] LABCLIA [id number] [place] [id number] [place] Bilirubin [Mass/Vol]1.3 mg/dLNormal0.2-1.3CMercy Health [facility] on above:Order Comment: Specimen Type: BLOOD SPECIMENOrdering Facility: [facility] Address:[address] [place], [place] [address]Performed By: #### 1825-9, 2064-03, 18267-5, 05898-4 ####[facility] LABCLIA [id number] [place] [id number] [place] Calcium [Mass/Vol]10.2 mg/dLNormal8.5-10.2CMercy Health St[facility] on above:Order Comment: Specimen Type: BLOOD SPECIMENOrdering Facility: [facility] Address:[address] [place], [place] [address]Performed By: #### 1825-9, 2063-4, 18629-0, 07830-7 ####[facility] LABCLIA [id number] [place] [id number] [place] Chloride [Moles/Vol]99 mmol/PHmwlto86-118AscreerjuPremier Health [facility] on above:Order Comment: Specimen Type: BLOOD SPECIMENOrdering Facility: [facility] Address:[address] [place], [place] [address]Performed By: #### 1825-9, 2063-4, 71595-5, 59214-7 ####[facility] LABCLIA [id number] [place] [address] [place] CO2 [Moles/Vol]20 mmol/IMrn07-53KxqmrterrPremier Health [facility] on above:Order Comment: Specimen Type: BLOOD SPECIMENOrdering Facility: [facility] Address:[address] [place], [place] [address]Performed By: #### 1825- 9, 2063-4, 51457-6, 03064-5 ####[facility] LABCLIA [id number] [place] [address] [place] Creatinine [Mass/Vol]1.01 mg/dLNormal0.73-1.22[facility] on above:Order Comment: Specimen Type: BLOOD SPECIMENOrdering Facility: [facility] Address:[address] [place] [address] Performed By: #### 1825-9, 2063-4, 59131-1, 10484-0 ####[facility] LABIA [id number] [place] [address] [place] AMERICACreatinine and Glomerular filtration rate.predicted panel (S/P/Bld)101 mL/min/1.73m???Normal>=60[facility] on above:Order Comment: Specimen Type: BLOOD SPECIMENOrdering Facility: [facility] Address:[address] [place], [place] [address]Result Comment: Estimated Glomerular Filtration Rate (eGFR) is calculated using the 2020 CKD-EPI creatinine equation. This equation utilizes serum creatinine, sex, and age as parameters. The creatinine assay has traceable calibration to isotope dilution- mass spectrometry. Refer to KDIGO guidelines for clinical interpretation. In patients with unstable renal function, e.g. those with acute kidney injury, the eGFR may not accurately reflect actual GFR.Performed By: #### 1825-9, 2063-, 30528-9, 13133-1 ####[facility] LABCLIA [id number] [address] [address] [place] AMERICAGlucose [Mass/Vol]92 mg/jASdgwps40-17SkxnphbzyPrem[facility] Health [facility] on above:Order Comment: Specimen Type: BLOOD SPECIMENOrdering Facility: [facility] Address:[address] [place], [place] [address]Result Comment: The [place] Diabetes Association (ADA) provides guidance for cutoff [...] symptoms of hyperglycemia or hyperglycemic crisis, random plasmaglucose results greater than or equal to 200 mg/dL meet the criteria for diagnosis of diabetes.Reference: Standards of Medical Care in Diabetes 2016, [place] [employer]. Diabetes Care. 2016.39(Suppl 1). Performed By: #### 1825-9, 2064-03, 91039-5, 03515-1 ####[facility] LABIA [id number] [address] [address] [place] AMERICAPotassium [Moles/Vol]4.1 mmol/LNormal3.7-5.1CMercy Health St[facility] on above:Order Comment: Specimen Type: BLOOD SPECIMENOrdering Facility: [facility] Address:[address] [place], [place] [address]Performed By: #### 1825-9, 2063-4, 89002-9, 71936-5 ####[facility] LABCLIA [id number] [place] [id number] [place] AMERICAProtein [Mass/Vol]7.9 g/dLNormal6.3-8.0[facility] on above:Order Comment: Specimen Type: BLOOD SPECIMENOrdering Facility: [facility] Address:[address] [place], [place] [address]Performed By: #### 1825-9, 2063-4, 01006-8, 26535-6 ####[facility] LABIA [id number] [place] [id number] [place] AMERICASodium [Moles/Vol]133 mmol/CTal478-533DqsjbkzjoPremier Health [facility] on above:Order Comment: Specimen Type: BLOOD SPECIMENOrdering Facility: [facility] Address:[address] [place], [place] [address]Performed By: #### 1825-9, 2063-4, 43543-2, 89097-9 ####[facility] LABIA [id number] [place] [id number] [place] AMERICAUrea nitrogen [Mass/Vol]14 mg/dLNormal9-24[facility] HospitalComasc[facility] on above:Order Comment: Specimen Type: BLOOD SPECIMENOrdering Facility: [facility] Address:[address] [place], [place] [address]Performed By: #### 1825-9, 2063-4, 88402-6, 12009-9 ####[facility] LABIA [id number] [place] [id number] [place] OF AMERICAD dimer FEU PPP-mCncon 05-21-2024 Fibrin D-dimer FEU (PPP) [Mass/Vol]250 ng/mL FEUNormal<500[facility] on above:Order Comment: Specimen Type: BLOOD SPECIMENOrdering Facility: [facility] Address: [address] [place] [address]Tpvdqwaxm By: #### 56081-9, 07731-7 ####[facility] [id number] [place] [address] [place] AMERICAHBV DNA Qn (S)on 63-60-8481BCF DNA GERMÁN+probe Qn629 IU/mlNormalProtestant Deaconess HospitalComment on above:Order Comment: Specimen Type: BLOOD SPECIMENOrdering Facility: [facility] Address:[address] [place], [place] [address]Result Comment: HBV DNA Detected by PCR.2.80Performed By: #### 00533-5 ####[facility] [id number] [place] [address] [place] AMERICAHBV core Ab Ser Qlon 89-55-8237IVW core Ab Ql (S)PositiveAbnormalNegativeProtestant Deaconess Hospital Comment on above:Order Comment: Specimen Type: BLOOD SPECIMENOrdering Facility: [facility] Address:[address] [place], [place] [address]Result Comment: The result suggests either current or past infection with Hepatitis B virus. Non-specific reactivity may at times be seen with this test due to some underlying phenomena. Please correlate with HBsAg result and medical history. Performed By: #### 80659-5, 72965-8, 5195-3, 62499-3 ####[facility] [id number] [place] [address] [place] AMERICAHBV surface Ab Ql (S)on 83-22-1735LEM surface Ab Qn (S)<8.00 NormalProtestant Deaconess HospitalComascension providence hospital on above:Order Comment: Specimen Type: BLOOD SPECIMENOrdering Facility: [facility] Address:[address] [place], [place] [address]Result Comment: <8 mIU/mL: No serological evidence of immunity to Hepatitis B Virus.>/= 8 to <12 mIU/mL: No serological evidence of immunity to Hepatitis B Virus.>/= 12 mIU/mL: Consistentwith serological evidence of immunity to Hepatitis B Virus.Performed By: #### 84444-9, 04196-6, 5195-3, 02633-2 ####[facility] LABCLIA [id number] [address] STATES OF AMERICAHBV surface Ab Ser Ql on 23-03-9969LZZ surface Ab Ql (S)NegativeNormalCGlenbeigh Hospital Comment on above:Order Comment: Specimen Type: BLOOD SPECIMENOrdering Facility: [facility] Address:[address] [place], [place] [address]Result Comment: No serological evidence of immunity to Hepatitis B Virus.Performed By: #### 86834-8, 98437-9, 5195-3, 46594-8 ####[facility] LABCLIA [id number] [address] [place] HBV surface Ag Ser Qlon 24-15-7762TLL surface Ag Ql (S)Initially Reactive AbnormalNegativeCincinnati Shriners Hospitalment on above:Order Comment: Specimen Type: BLOOD SPECIMENOrdering Facility: [facility] Address:[address] [place], [place] [address]Result Comment: Please see HBsAg confirmatory assay result.Confirmatory testing for hepatitis B surface antigen has been ordered and charged.Performed By: #### 96260-6, 88488-2, 5195-3, 51426- 4 ####[facility] LABCLIA [id number] [address] OF [facility] COUNTY HOSPITALHBV surface Ag Ql (S)Positive AbnormalNegative, Test not IndicatedPremier Health [facility] on above: Order Comment: Specimen Type: BLOOD SPECIMENOrdering Facility: [facility] Address:[address] [place], [place] [address]Result Comment: The result is consistent with active Hepatitis B Virus Infection. HBsAg, however, ma y test positive up to few weeks after administration of Hepatitis B vaccine. Clinical correlation is required.Performed By: #### 42284-0, 83366-8, 5195-3, 40996-4 ####[facility] LABCLIA [id number] [place] [address] [place] AMERICAHCV Ab Ser Qlon 59-21-1255CDK Ab Ql (S)PositiveAbnormalNegativePrem[facility] on above:Order Comment: Specimen Type: BLOOD SPECIMENOrdering Facility: [facility] Address:[address] [place] [address] Performed By: #### 13426-4, 01528-1 ####[facility] LABIA [id number] [place] [address] [place] HCV RNA SerPl GERMÁN+probe-aCncon 75-34-1306SEO RNA GERMÁN+probe QnNot detectedNormal HCV RNA not detected by PCR.[facility] on above:Order Comment: Specimen Type: BLOOD SPECIMENOrdering Facility: [facility] Address:[address] [place], [place] [address]Performed By: #### 21237- 1, 95223-7 ####[facility] LABIA [id number] [address] STATES OF AMERICAHEP BE ANTIBODYon 61-34-3404XNY e Ab IA QlNegativeNormalNegSelect Medical Specialty Hospital - [facility] SouthComascension providence hospital on above:Order Comment: Specimen Type: BLOOD SPECIMENOrdering Facility: [facility] Address:[address] [place], [place] [address]Result Comment: This test should only be used in patients with a previously known and/or concurrentpositive HBsAG result. Along with HBeAG test, Hepatitis B e antibody test is used for monitoring the natural history of Hepatitis B virus infection and prognostication. Clinical correlation is required.Performed By: #### HBEAG, AHBE ####[facility] LABIA [id number] [place] [address] [place] AMERICAHEP BE ANTIGENon 15-04-1859YVI e Ag IA QlPositiveAbnormalNegativeProtestant [facility]acon[facility] Hospital Comment on above:Order Comment: Specimen Type: BLOOD SPECIMENOrdering Facility: [facility] Address:[address] [place] [address] Performed By: #### HBEAG, AHMICHAEL ####[facility] LABIA [id number] [place] [address] [place] HIGH SENSITIVITY TROPONIN Ton 08-43-0464Qkqkihdy T.cardiac High sensitivity method [Mass/Vol]8 ng/LNormal<12[facility] on above:Order Comment: Specimen Type: BLOOD SPECIMENOrdering Facility: [facility] Address: [address] [place], [place] [address]Result Comment: When assessing risk for acute coronary syndromes: In patients undergoing blood draw greater than or equal to 2 hours from symptom onset, with history of very low to moderate risk and non-ischemic ECG, an initial hs-Troponin T less than 12 ng/L AND a 1 hour delta hs-Troponin T less than 3 ng/L should be considered very low risk for 30 day MACE.Performed By: #### 1988-5, HSTNT ####[facility] [id number] [place] [address] [place] AMERICAHIV 1+2 Ab IA Qlon 61-44-1221VGQ 1 and 2 Ab IA.rapid Nom (S/P/Bld)NormalPremier Health [facility] on above:Order Comment: Specimen Type: BLOOD SPECIMENOrdering Facility: [facility] Address: [address] [place], [place] [address]Result Comment: Test not indicated.Performed By: #### 51268-3, 32659-4, 5195-3, 46723-6 ####[facility] LABIA [id number] [place] [address] [place] AMERICAHIV 1+2 Ab+HIV1 p24 Ag IA QlNon-ReactiveNormal NonreactivePrem[facility] Health [facility] on above:Order Comment: Specimen Type: BLOOD SPECIMENOrdering Facility: [facility] Address: [address] [place], [place] [address]Performed By: #### 27442-4, 24937-0, 5195- 3, 86204-1 ####[facility] LABCLIA [id number] [address] [address] [place] AMERICAHIV immunoassay testing algorithm interpretation (S/P/Bld) [Interp]NormalPremier Health Upper [facility] on above:Order Comment: Specimen Type: BLOOD SPECIMENOrdering Facility: [facility] Address: [address] [place] [address]hjow Comment: No evidence of HIV-1 or HIV-2 infection. Should recent infection be suspected, repeat testing may be considered 2-3 weeks after this draw.[place] Rev. Code 3701.243(E): This information has been [...] the release of HIV test results or diagnoses.Performed By: #### 37515-7, 66944-6, 5195-3, 93843-8 ####[facility] LABCLIA [id number] [address] [address] [place] OF AMERICALKM ABon 99-34-1810BCIUI-KIDNEY MICROSOMAL ABS <1:20Normal<1:20[facility] on above:Order Comment: Specimen Type: BLOOD SPECIMENOrdering Facility: [facility] Address:[address] [place], [place] [address]Jqgqay Comment: INTERPRETIVE INFORMATION: Vfsnd-Iutvyz-Vctmhnajx Abs, IgGLiver-Kidney Microsome IgGantibody (anti-LKM), as detected byindirect immunofluorescent antibody (IFA) techniques, may beobserved in patients with autoimmune hepatitis type 2 (AIH-2),AIH-2 associated with boojmiewcduwtbavmjmyjrqlspxq-hssdpnrjzvg-sezcsbknby dystrophy (APECED),viral hepatitis C or D, and some forms of drug-induced hepatitis.This IFA does not differentiate among the four types of LKMantibodies (LKM-1, LKM-2, LKM-3, and a fourth type that kywtubfnsmPBU0N7 and CY antigens). Of these, anti-LKM-1 (oughakftlqJ606KUY8) IgG antibodies are considered specific for AIH- 2.This test was developed and its performance characteristicsdetermined by [facility]. It has not been cleared orapproved by the [place] Food and Drug Administration. This test wasperformed in a CLIA certified laboratory and is intended forclinical purposes.Performed By: [address] [address]Ulzgjszwfv Director: Bob Heredia MD, PhDCLIA Number: [id number] By: #### [facility] ####[facility] [id number] [place], [place] [address]Lulvpbpgezmu Ab IF Ql (S)on 05-21-2024 Mitochondria M2 Ab IA Qn (S)16.3 UnitsNormal<=20.0[facility] Comment on above:Order Comment: Specimen Type: BLOOD SPECIMENOrdering Facility: [facility] Address:[address] [place] [address] Performed By: #### 31476-7, 06370-5 ####[facility] LABCLIA [id number] [address] STATES OF [facility] Mitochondria M2 Ab Ql (S)NegativeNormalNegativePremier Health [facility] on above:Order Comment: Specimen Type: BLOOD SPECIMENOrdering Facility: [facility] Address:[address] [place], [place] [address]Result Comment: Anti-mitochondrial antibody test is used as an aid in diagnosis of primary biliary cholangitis. Clinical correlation is required.Performed By: #### 52530-8, 59414-5 ####[facility] LABCLIA [id number] [place] [address] [place] AMERICANT-proBNP SerPl-mCnc on 07-06-1133Mspvprizhoa peptide.B prohormone N-Terminal [Mass/Vol]<36Normal<125 [facility] on above:Order Comment: Specimen Type: BLOOD SPECIMENOrdering Facility: [facility] [facility] Address: [address] [place] [id number] By: #### 1825-9, 2064-4, 20464-6, 47605-2 ####[facility] LABIA [id number] [place] [address] [place] [facility] HOSPITALuclear Ab IA Ql (S)on [id number] SCR QUALNegativeNormalNegativePremier Health [facility] on above:Order Comment: Specimen Type: BLOOD SPECIMENOrdering Facility: [facility] Address:[address] [place], [place] [address]Result Comment: The qualitative antinuclear antibody screen test performed using the following antigens: dsDNA, Chromatin, Ribosomal P, SS-A 60, SS-A 52, SS-B, Sm, SmRNP, ACCOUNTANT COST A, ACCOUNTANT COST 68, Scl-70, Dara-1,and Centromere B. Methodology: Multiplex flow immunoassay.Performed By: #### 84026-2 ####[facility] LABIA [id number] [place] [id number] [place] AMERICAPT panel Coag (PPP)on 59-85-7123KYA Coag (PPP) [Relative time]1.1 {INR} Normal0.9-1.3CMer[facility] Health [facility] on above:Order Comment: Specimen Type: BLOOD SPECIMENOrdering Facility: [facility] Address:[address] [place], [place] [id number] Comment: Vitamin K Antagonist (VKA) Therapeutic Range: INR 2 to 3 (Target INR of 2.5)Note: For patients treated with VKA drugs, such as warfarin, the [employer] 2012 G uideline recommends a therapeutic INR range of 2 to 3 (target INR of 2.5). This recommendation includes high-risk patients with antiphospholipid syndrome with previous arterial or venous thromboembolism, current-generation mechanical or bioprosthetic aortic heart valve replacement.Note: Patients with mechanical aortic valve replacement and additional risk factors for thromboembolic events (atrialfibrillation, previous thromboembolism, LV dysfunction, hypercoagulable conditions) or an older generation mechanical AVR (i.e., ball in-Cage) or any mechanical MVR should have a INR therapeutic range of 2.5 to 3.5 (target INR of 3).Petratt GH, et al. Chest 2012, 141:7S-47SNishimura RA, et al. [facility] 2017, 70: 252-289Performed By: #### 11088-9, 47119-6 ####[facility] LABCLIA [id number] [place] [address] [place] AMERICAPT Coag (PPP) [Time]11.5 sNormal9.7-13.0[facility] on above:Order Comment: Specimen Type: BLOOD SPECIMENOrdering Facility: [facility] Address:[address] [place] [address] Performed By: #### 03071-4, 62944-0 ####[facility] [id number] [place] [address] [place] Smooth muscle Ab Ql (S)on 04-13-8351OOMST SMOOTH MUSCLE IGG QUALITATIVENegative NormalNegativePremier Health [facility] on above:Order Comment: Specimen Type: BLOOD SPECIMENOrdering Facility: [facility] Address:[address] [place], [place] [address]Performed By: #### 81447-5, 33307-0 ####[facility] [id number] [place] [address] [place] AMERICAACTIN SMOOTH MUSCLE IGG QUANTITATIVE7 UnitsNormal<20[facility] on above:Order Comment: Specimen Type: BLOOD SPECIMENOrdering Facility: [facility] Address:[address] [place], [place] [address]Performed By: #### 47851- 1, 42066-7 ####[facility] LABIA [id number] [facility] [place] [address] [place] AMERICACNOVon 33-45-9425SNSS NormalProtestant Deaconess HospitalCNPNon 04-50-3098SIYFYxrufyYifieyyqk Clinic ClevelandANA SCREEN, IFA, W/REFL TITER AND PATTERNon 92-80-8699NXP SCREEN, IFA PositiveAbnormalNEGATIVEQuest DiagnosticsComment on above:Result Comment: MONA IFA is a first line screen for detecting the presence of up to approximately 150 autoantibodies in various autoimmune diseases. A positive MONA IFA result is suggestive of autoimmune disease and reflexes to titer and pattern. Further laboratory testing may be considered if clinically indicated. For additional information, please refer to http://education.Avanzit/faq/HKT677 (This link is being provided for informational/ educational purposes only.)Performed By: #### 899, 39079, 482, %72230, 7600, 496, 04539, 5616, %36851, 866, 6399 #### [facility] [address], [address] [place], [place] [id number] Port Traffic Manager: Jeremías Martinez MDANTINUCLEAR ANTIBODIES TITER AND PATTERNon 44-64-7178TTI PATTERNCytoplasmicAbnormalQuest DiagnosticsComment on above:Result Comment: The presence of cytoplasmic fluorescence was noted on the HEp-2 slide. Other reactivities (e.g., anti- mitochondrial antibodies or anti-smooth muscle antibodies) may be responsible for this fluorescence. The clinical significance of this finding is uncertain. Clinical correlation is recommended. AC-15 to AC-23: Cytoplasmic International Consensus on MONA Patterns (https://doi.org/10.1515/pbdi-8946-4751)Performed By: #### 899, 01247, 482, %87126, 7600, 496, 94646, 5616, %18533, 866, 6399 #### [facility] [address], [address] [place] [address] Port Traffic Manager: Jeremías Martinez MDANA TITER1:80HighQuest DiagnosticsComment on above:Result Comment: A low level MONA titer may be present in pre-clinical autoimmune diseases and normal individuals. Reference Range <1:40 Negative 1:40-1:80 Low Antibody Level >1:80 Elevated Antibody LevelPerformed By: #### 899, 71102, 482, %04023, 7600, 496, 62030, 5616, %34629, 866, 6399 #### [facility] of [address], [address] [place] [address] Port Traffic Manager: Jeremías Martinez MDCBC (INCLUDES DIFF/PLT)on 43-78-2661Bsyjfxfcf (Bld) [#/Vol]0.082 10*3/uLNormal0-200Quest DiagnosticsComment on above:Performed By: #### 899, 40162, 482, %27347, 7600, 496, 20235, 5616, %27221, 866, 6399 #### [facility] [address], [address] [place] [address] Port Traffic Manager: Jeremías Martinez MDBasophils/100 WBC (Bld)1.2 %NormalQuest DiagnosticsComment on above:Performed By: #### 899, 73905, 482, %50031, 7600, 496, 99139, 5616, %89790, 866, 6399 #### [facility] [address], [address] [place] [address] Port Traffic Manager: Jeremías Martinez MDEosinophils (Bld) [#/Vol]0.442 10*3/uLNormal 15-500Quest DiagnosticsComment on above:Performed By: #### 899, 76681, 482, %85991, 7600, 496, 64659, 5616, %11771, 866, 6399 #### [facility] [address], [address] [place] [address] Port Traffic Manager: Jeremías KAMosinophils/100 WBC (Bld)6.5 %NormalQuest DiagnosticsComment on above:Performed By: #### 899, 32498, 482, %25848, 7600, 496, 36554, 5616, %71849, 866, 6399 #### [facility] [address], [address] [place] [address] Port Traffic Manager: Jeremías Martinez MDErythrocyte distribution width (RBC) [Ratio] 17.2 %High11.0-15.0Quest DiagnosticsComment on above:Performed By: #### 899, 25637, 482, %20258, 7600, 496, 88684, 5616, %54145, 866, 6399 #### [facility] [place] [address] Port Traffic Manager: Jeremías Martinez MDHematocrit (Bld) [Volume fraction]51.3 %High 38.5-50.0Quest DiagnosticsComment on above:Performed By: #### 899, 20341, 482, %97249, 7600, 496, 21283, 5616, %35524, 866, 6399 #### [facility] [place] [address] Port Traffic Manager: Jeremías Martinez MDHemoglobin (Bld) [Mass/Vol]17.1 g/dLNormal 13.2-17.1Quest DiagnosticsComment on above:Performed By: #### 899, 95949, 482, %16815, 7600, 496, 68659, 5616, %22379, 866, 6399 #### [facility] [place] [address] Port Traffic Manager: Jeremías Martinez MDLymphocytjanelle (Bld) [#/Vol]1.346 10*3/uLNormal 850-3900Quest DiagnosticsComment on above:Performed By: #### 899, 48946, 482, %65968, 7600, 496, 60635, 5616, %02336, 866, 6399 #### [facility] [place] [address] Port Traffic Manager: Jeremías Lymphocytes/100 WBC (Bld)19.8 %NormalQuest DiagnosticsComment on above:Performed By: #### 899, 99328, 482, %26341, 7600, 496, 51387, 5616, %46184, 866, 6399 #### [facility] of [address], [address] [place] [address] Port Traffic Manager: Jeremías Martinez MDMCH (RBC) [Entitic mass]26.9 pgLow27.0-33.0 [facility] DiagnosticsComment on above:Performed By: #### 899, 28535, 482, %14616, 7600, 496, 52037, 5616, %02554, 866, 6399 #### [facility] [place] [address] Port Traffic Manager: Jeremías ROGERSCHC (RBC) [Mass/Vol]33.3 g/zGYecest35.0-36.0 [facility]osticsComment on above:Performed By: #### 899, 36220, 482, %95850, 7600, 496, 76965, 5616, %23725, 866, 6399 #### [facility] [place] [address] Port Traffic Manager: Jeremías ROGERSCV (RBC) [Entitic vol]80.7 wFMsafdn85.0-100.0 [facility]osticsComment on above:Performed By: #### 899, 99424, 482, %04569, 7600, 496, 58629, 5616, %23116, 866, 6399 #### [facility] [place] [address] Port Traffic Manager: Jeremías Martinez MDMonocytes (Bld) [#/Vol]0.428 10*3/uLNormal 200-950Quest DiagnosticsComment on above:Performed By: #### 899, 08729, 482, %75753, 7600, 496, 53113, 5616, %61994, 866, 6399 #### [facility] [place] [address] Port Traffic Manager: Jeremías Martinez MDMonocytes/100 WBC (Bld)6.3 %NormalQuest DiagnosticsComment on above:Performed By: #### 899, 99112, 482, %80948, 7600, 496, 03238, 5616, %37392, 866, 6399 #### [facility] of [place] [address] Port Traffic Manager: Jeremías Ramos (Bld) [#/Vol]4.502 10*3/uLNormal 1500-7800Quest DiagnosticsComment on above:Performed By: #### 899, 32285, 482, %43761, 7600, 496, 81297, 5616, %51919, 866, 6399 #### [facility] of [place] [address] Port Traffic Manager: Jeremías Ramos/100 WBC (Bld)66.2 %NormalQuest DiagnosticsComment on above:Performed By: #### 899, 93662, 482, %33047, 7600, 496, 98218, 5616, %28212, 866, 6399 #### [facility] of [place] [address] Port Traffic Manager: Jeremías Rodarte mean volume (Bld) [Entitic vol]11.4 fLNormal7.5-12.5Quest DiagnosticsComment on above:Performed By: #### 899, 26454, 482, %66354, 7600, 496, 04324, 5616, %81860, 866, 6399 #### [facility] of [place] [address], [address] [place] [address] Port Traffic Manager: Jeremías Campbelltemary (Bld) [#/Vol]152 10*3/uLNormal 140-400Quest DiagnosticsComment on above:Performed By: #### 899, 79056, 482, %66963, 7600, 496, 02455, 5616, %91988, 866, 6399 #### [facility] of [place] [address] [facility], [address] [place] [address] Port Traffic Manager: Jeremías Martinez [facility] ([facility]) [#/Vol]6.36 10*6/uLHigh4.20-5.80 [facility]osticsComment on above:Performed By: #### 899, 10963, 482, %04105, 7600, 496, 73045, 5616, %15190, 866, 6399 #### [facility] [place] [address] Port Traffic Manager: Jeremías Martinez [facility] ([facility]) [#/Vol]6.8 10*3/uLNormal3.8-10.8 [facility]osticsComment on above:Performed By: #### 899, 44794, 482, %91538, 7600, 496, 27380, 5616, %67584, 866, 6399 #### [facility] [place] [address] Port Traffic Manager: Jeremías Martinez MDCOMPREHENSIVE METABOLIC PANELon 04-09-2024 Albumin [Mass/Vol]5.2 g/dLHigh3.6-5.1Quest DiagnosticsComment on above:Performed By: #### 899, 26404, 482, %92910, 7600, 496, 58760, 5616, %17531, 866, 6399 #### [facility] [place] [address] Port Traffic Manager: Jeremías Martinez MDAlbumin/Globulin [Mass ratio]1.9 {ratio}Normal 1.0-2.5Quest DiagnosticsComment on above:Performed By: #### 899, 88698, 482, %19309, 7600, 496, 37637, 5616, %61660, 866, 6399 #### [facility] [address], [address] [place] [address] Port Traffic Manager: Jeremías Martinez MDALP [Catalytic activity/Vol]115 U/LNormal 36-130Quest DiagnosticsComment on above:Performed By: #### 899, 92002, 482, %52474, 7600, 496, 80647, 5616, %26884, 866, 6399 #### [facility] [address], [address] [place] [address] Port Traffic Manager: Jeremías Martinez MDALT [Catalytic activity/Vol]204 U/LHigh9-46 [facility]osticsComment on above:Performed By: #### 899, 71801, 482, %39855, 7600, 496, 90421, 5616, %82898, 866, 6399 #### [facility] [address], [address] [place] [address] Port Traffic Manager: Jeremías Martinez MDAST [Catalytic activity/Vol]161 U/OSscq01-08 [facility] DiagnosticsComment on above:Performed By: #### 899, 94157, 482, %11302, 7600, 496, 20210, 5616, %59525, 866, 6399 #### [facility] [address], [address] [place] [address] Port Traffic Manager: Jeremías Martinez MDBilirubin [Mass/Vol]1.2 mg/dLNormal0.2-1.2 [facility] DiagnosticsComment on above:Performed By: #### 899, 85323, 482, %29351, 7600, 496, 68200, 5616, %58299, 866, 6399 #### [facility] [place] [address] Port Traffic Manager: Jeremías Martinez MDBUN/CREATININE RATIOSEE NOTE:Normal6-22Quest DiagnosticsComment on above:Result Comment: Not Reported: BUN and Creatinine are within reference range.Performed By: #### 899, 94912, 482, %86292, 7600, 496, 81753, 5616, %68059, 866, 6399 #### [facility] [address], [address] [place] [address] Port Traffic Manager: Jeremías Martinez MDCalcium [Mass/Vol]10.2 mg/dLNormal8.6-10.3 [facility] DiagnosticsComment on above:Performed By: #### 899, 33576, 482, %37476, 7600, 496, 34035, 5616, %63929, 866, 6399 #### [facility] [place] [address] Port Traffic Manager: Jeremías Martinez MDChloride [Moles/Vol]103 mmol/MXbvcrj35-892 [facility] DiagnosticsComment on above:Performed By: #### 899, 90522, 482, %39386, 7600, 496, 76879, 5616, %76594, 866, 6399 #### [facility] [place] [address] Port Traffic Manager: Jeremías Martinez MDCO2 [Moles/Vol]21 mmol/AUizeym21-02Urfsc DiagnosticsComment on above:Performed By: #### 899, 71986, 482, %79882, 7600, 496, 38652, 5616, %96516, 866, 6399 #### [facility] [place] [address] Port Traffic Manager: Jeremías MCNAIRreatinine [Mass/Vol]0.89 mg/dLNormal0.60-1.26 [facility]osticsComment on above:Performed By: #### 899, 78231, 482, %35437, 7600, 496, 10457, 5616, %73981, 866, 6399 #### [facility] [place] [address] Port Traffic Manager: Jeremías Martinez MDGFR/1.73 sq M.predicted among non-blacks MDRD (S/P/Bld) [Vol rate/Area]117 mL/min/{1.73_m2}Normal> OR = 60[facility] Comment on above:Performed By: #### 899, 89022, 482, %93022, 7600, 496, 00405, 5616, %01609, 866, 6399 #### [facility] [address], [address] [place] [address] Port Traffic Manager: Jeremías Martinez MDGlobulin (S) [Mass/Vol]2.8 g/dLNormal1.9-3.7 [facility]osticsComment on above:Performed By: #### 899, 09609, 482, %82367, 7600, 496, 79226, 5616, %30091, 866, 6399 #### [facility] [address], [address] [place] [address] Port Traffic Manager: Jeremías Martinez MDGlucose [Mass/Vol]108 mg/lOXtwf32-44Nftmo DiagnosticsComment on above:Result Comment: Fasting reference interval For someone without known diabetes, a glucose value between 100 and 125 mg/dL is consistent with prediabetes and should be confirmed with a follow-up test.Performed By: #### 899, 69360, 482, %70639, 7600, 496, 29027, 5616, %96026, 866, 6399 #### [facility] [place] [address] Port Traffic Manager: Jeremías Martinez MDPotassium [Moles/Vol]4.3 mmol/LNormal3.5-5.3 [facility]osticsComment on above:Performed By: #### 899, 60437, 482, %68917, 7600, 496, 84923, 5616, %99881, 866, 6399 #### [facility] [address], [address] [place], [place] [id number] Port Traffic Manager: Jeremías Martinez MDProtein [Mass/Vol]8.0 g/dLNormal6.1-8.1Quest DiagnosticsComment on above:Performed By: #### 899, 70751, 482, %83026, 7600, 496, 75796, 5616, %07201, 866, 6399 #### [facility] [address], [address] [place] [address] Port Traffic Manager: Jeremías Martinez MDSodium [Moles/Vol]136 mmol/USewggm808-720Lhbin DiagnosticsComment on above:Performed By: #### 899, 29932, 482, %28182, 7600, 496, 80969, 5616, %58461, 866, 6399 #### [facility] [address], [address] [place] [address] Port Traffic Manager: Jeremías Martinez MDUrea nitrogen [Mass/Vol]10 mg/dLNormal7-25 [facility]osticsComment on above:Performed By: #### 899, 09024, 482, %75432, 7600, 496, 10249, 5616, %70149, 866, 6399 #### [facility] [address], [address] [place] [address] Port Traffic Manager: Jeremías Martinez MDCORTISOL, TOTALon 64-98-2486KRVRTYAA, TOTAL 12.9 mcg/dLNormalQuest DiagnosticsComment on above:Result Comment: Reference Range: For 8 a.m.(7-9 a.m.) Specimen: 4.0-22.0 Reference Range: For 4 p.m.(3-5 p.m.) Specimen: 3.0-17.0 * Please interpret above results accordingly *Performed By: #### 899, 92672, 482, %42662, 7600, 496, 45970, 5616, %97724, 866, 6399 #### [facility] [address], [address] [place] [address] Port Traffic Manager: Jeremías Martinez MDGGTon 94-64-8213Grpzp glutamyl transferase [Catalytic activity/Vol]199 U/LHigh3-90Quest DiagnosticsComment on above: Performed By: #### 899, 18265, 482, %01232, 7600, 496, 82827, 5616, %57331, 866, 6399 #### [facility] [address], [address] [place] [address] Port Traffic Manager: Jeremías Martinez MDHCV RNA, QUANTITATIVE REAL TIME PCRon 60-73-9718POBGRNRUkcivkXmoml DiagnosticsComment on above:Result Comment: This test was performed using Real-Time Polymerase Chain Reaction. Reportable Range: 15 IU/mL to 100,000,000 IU/mL (1.18 Log IU/mL to 8.00 Log IU/mL). The analytical performance characteristics of this assay have been determined by [facility]. The modifications have not been cleared or approved by the FDA. This assay has been validated pursuant to the CLIA regulations and is used for clinical purposes. For more information on this test, go to: http://education.GoMiles/faq/GEL97u4 (This link is being provided for informational/ educational purposes only.) This assay is intended for use as an aid in the diagnosis of HCV infection and the management of HCV infected patients undergoing anti-viral therapy.Performed By: #### 899, 72429, 482, %37577, 7600, 496, 88989, 5616, %26823, 866, 6399 #### [facility] [address], [address] [place] [address] Port Traffic Manager: Jeremías Martinez MDHCV RNA, QUANTITATIVE REAL TIME PCRNot detectedNormalNOT DETECTEDQuest DiagnosticsComment on above:Performed By: #### 899, 97558, 482, %43646, 7600, 496, 13441, 5616, %87702, 866, 6399 #### [facility] [address], [address] [place] [address] Port Traffic Manager: Jeremías Martinez MDResult Comment: HCV RNA is not detected. There [...] antibody could be a biological false positive result.HEMOGLOBIN A1con 04-09-2024 HEMOGLOBIN A1c5.5 % of total HgbNormal<5.7Quest DiagnosticsComment on above: Result Comment: For the purpose of screening for the presence of diabetes: <5.7% Consistent with the absence of diabetes 5.7-6.4% Consistent with increased risk for diabetes (prediabetes) > or =6.5% Consistent with diabetes This assay result is consistent with a decreased risk of diabetes. Currently, no consensus exists regarding use of hemoglobin A1c for diagnosis of diabetes in children. According to [place] [employer] (ADA) guidelines, hemoglobin A1c <7.0% represents optimal control in non- diabetic patients. Different metrics may apply to specific patient populations. Standards of Medical Care in Diabetes(ADA). This test was performed on the Susannah antione c503 platform. Effective 11/17/23, a change in test platforms from the [employer] Lead to the Susannah antione c503 may have shifted HbA1c results compared to historical results. Based on laboratory validation testing conducted at [facility], the Susannah platform relative to the [employer] platform had an average increase in HbA1c value of < or = 0.3%. This difference is within accepted variability established by the National Glycohemoglobin Standardization Program. Note that not all individuals will have had a shift in their results and direct comparisons between historical and current results for testing conducted on different platforms is not recommended.Performed By: #### 899, 46385, 482, %55675, 7600, 496, 01950, 5616, %61831, 866, 6399 #### [facility] [address], [address] [place] [address] Port Traffic Manager: Jeremías BARRIGA PANEL, ACUTE W/REFLEX TO CONFIRMATIONon 67-13-8597SPEMHSJKE A RAJLuz-AydqzndeFyrigkFHC-PFIEVDZOPpbar DiagnosticsComment on above:Result Comment: For additional information, please refer to http://education.Mobile System 7.Appscend/faq/VTQ004 (This link is being provided for informational/ educational purposes only.)Performed By: #### 899, 39318, 482, %37477, 7600, 496, 69810, 5616, %30554, 866, 6399 #### [facility] [address], [address] [place] [address] Port Traffic Manager: Jeremías Merati MDHEPATITIS B CORE ANTIBODY (IGM)Non-Reactive NormalNON-REACTIVEQuest DiagnosticsComment on above:Result Comment: For additional information, please refer to http://Pokelabo.Mobile System 7.Appscend/faq/YLA917 (This link is being provided for informational/ educational purposes only.)Performed By: #### 899, 21901, 482, %34648, 7600, 496, 95803, 5616, %99466, 866, 6399 #### [facility] [address], [address] [place] [address] Port Traffic Manager: Jeremías BARRIGA B SURFACE ANTIGENReactiveAbnormal NON-REACTIVEQuest DiagnosticsComment on above:Result Comment: For additional information, please refer to http://Pokelabo.Mobile System 7.Appscend/faq/GAR624 (This link is being provided for informational/ educational purposes only.)Performed By: #### 899, 79575, 482, %79939, 7600, 496, 65632, 5616, %72642, 866, 6399 #### [facility] [address], [address] [place] [address] Port Traffic Manager: Jeremías BARRIGA C ANTIBODYReactiveAbnormal NON-REACTIVEQuest DiagnosticsComment on above:Result Comment: Based on this result, the sample will be tested for HCV RNA by a Nucleic Acid Amplification Test (NAAT) to determine if the patient has a current active infection.Performed By: #### 899, 59620, 482, %18801, 7600, 496, 53555, 5616, %42045, 866, 6399 #### [facility] [address], [address] [place] [address] Port Traffic Manager: Jeremías HEATON, TIBC AND FERRITIN PANELon 04-09-2024% XWMIIQEZMI51 % (calc)Umco32-04Tdiwz DiagnosticsComment on above:Order Comment: NON-FASTING NON-FASTING NON-FASTING NON-FASTING NON-FASTING NON-FASTINGPerformed By: #### 899, 12359, 482, %10322, 7600, 496, 22681, 5616, %06924, 866, 6399 #### [facility] [address], [address] [place], [place] [address] Port Traffic Manager: Jeremías Martinez MDFerritin [Mass/Vol]302 ng/bIPnjarb78-310Xelgv DiagnosticsComment on above:Order Comment: NON-FASTING NON-FASTING NON-FASTING NON-FASTING NON-FASTING NON-FASTINGPerformed By: #### 899, 84783, 482, %77399, 7600, 496, 28503, 5616, %36938, 866, 6399 #### [facility] [address], [address] [place] [address] Port Traffic Manager: Jeremías HEATON BINDING JFELRJOH494 mcg/dL (calc)Normal 250-425Quest DiagnosticsComment on above:Order Comment: NON-FASTING NON-FASTING NON-FASTING NON-FASTING NON-FASTING NON-FASTINGPerformed By: #### 899, 06608, 482, %02746, 7600, 496, 62131, 5616, %06697, 866, 6399 #### [facility] [place] [address] Port Traffic Manager: Jeremías HEATON, QWMXG688 mcg/nABqif37-693Kslfe DiagnosticsComment on above:Order Comment: NON-FASTING NON-FASTING NON-FASTING NON-FASTING NON-FASTING NON-FASTINGPerformed By: #### 899, 53887, 482, %92265, 7600, 496, 21463, 5616, %42625, 866, 6399 #### [facility] [address], [address] [place], [place] [address] Port Traffic Manager: Jeremías Martinez MDLIPID PANEL, STANDARDon 22-46-6801Aaskxgrlskx [Mass/Vol]226 mg/dLHigh<200Quest DiagnosticsComment on above:Performed By: #### 899, 14117, 482, %64192, 7600, 496, 19038, 5616, %58833, 866, 6399 #### [facility] [address], [address] [place] [address] Port Traffic Manager: Jeremías Martinez MDCholesterol in HDL [Mass/Vol]56 mg/dLNormal> OR = 40Quest DiagnosticsComment on above:Performed By: #### 899, 90133, 482, %94277, 7600, 496, 90541, 5616, %50847, 866, 6399 #### [facility] [address], [address] [place] [address] Port Traffic Manager: Jeremías MCNAIRholesterol in LDL [Mass/Vol]134 mg/dLHigh Quest DiagnosticsComment on above:Result Comment: Reference range: <100 Desirable range <100 mg/dL for primary prevention; <70 mg/dL for patients with CHD or diabetic patients with > or = 2 CHD risk factors. LDL-C is now calculated using the Naty calculation, which is a validated novel method providing better accuracy than the Friedewald equation in the estimation of LDL-C. Markell FRANK et al. TIFFANI. 2013;310(19): 9452-0336 (http://education.Maestro.Appscend/faq/EMF788)Performed By: #### 899, 22385, 482, %94930, 7600, 496, 83614, 5616, %87208, 866, 6399 #### [facility] [address], [address] [place] [address] Port Traffic Manager: Jeremías Denneystadeola.total/Cholesterol in HDL [Mass ratio]4.0 {ratio}Normal<5.0Quest DiagnosticsComment on above:Performed By: #### 899, 98544, 482, %10613, 7600, 496, 33866, 5616, %54455, 866, 6399 #### [facility] [address], [address] [place], [place] [address] Port Traffic Manager: Jeremías AIKEN HDL [id number] mg/dL (calc)High<130 [facility] DiagnosticsComment on above:Result Comment: For patients with diabetes plus 1 major ASCVD risk factor, treating to a non-HDL-C goal of <100 mg/dL (LDL-C of <70 mg/dL) is considered a therapeutic option.Performed By: #### 899, 77513, 482, %87094, 7600, 496, 79004, 5616, %21302, 866, 6399 #### [facility] [address], [address] [place] [address] Port Traffic Manager: Jeremías Martinez MDTriglyceride [Mass/Vol]218 mg/dLHigh<150Quest DiagnosticsComment on above:Result Comment: If a non-fasting specimen was collected, consider repeat triglyceride testing on a fasting specimen if clinically indicated. Gopal et al. J. of Clin. Lipidol. 2015;9:129-169.Performed By: #### 899, 02624, 482, %32490, 7600, 496, 95475, 5616, %51778, 866, 6399 #### [facility] [address], [address] [place] [address] Port Traffic Manager: Jeremías [address] [place] [address] 03-72-1538Nxud T4 [Mass/Vol]1.2 ng/dLNormal0.8-1.8Quest DiagnosticsComment on above:Performed By: #### 899, 32436, 482, %84028, 7600, 496, 58886, 5616, %50777, 866, 6399 #### [facility] [address], [address] [place] [address] Port Traffic Manager: Jeremías CASTANONarsh 22-50-6624VJR Qn2.17 m[IU]/LNormal 0.40-4.50Quest DiagnosticsComment on above:Performed By: #### 899, 89429, 482, %03122, 7600, 496, 78856, 5616, %23329, 866, 6399 #### [facility] [address], [address] [place] [address] Port Traffic Manager: Jeremías Martinez MDCNOVon 79-04-9375XCSKJkwbogVguonsbbw [facility] Health AnsonVIBRATION CONTROLLED TRANSIENT ELASTOGRAPHY (POC)on 18-02-5231Jouemgheu ClinicCNPNon 87-49-9622BSNJNueatcFmbseavqy Clinic ClevelandC-REACTIVE PROTEIN (CRP)on 37-83-5185OZC [Mass/Vol]<0.9 mg/dLOhioHealth Pickerington [facility] W Auto Differential panel (Bld)on 59-04-9254Drrfmyttm (Bld) [#/Vol]0.12 10*3/uLHigh <0.11Avon HospitalComment on above:Order Comment: Specimen Type: BLOOD SPECIMEN Ordering Facility: [facility] Address: [address] [place], [place] [address]Performed By: #### 90062-9 #### [facility] IA [id number] [address] [place] [address] [place] AMERICABasophils/100 WBC (Bld)1.5 %NormalAv HospitalComment on above:Order Comment: Specimen Type: BLOOD SPECIMEN Ordering Facility: [facility] Address: [address] [place], [place] [address]Performed By: #### 72849-8 #### [facility] IA [id number] [address] [place] [address] [place] AMERICADifferential cell count method Nom (Bld) AutoNormalAvon HospitalComment on above:Order Comment: Specimen Type: BLOOD SPECIMEN [facility]ing Facility: [facility] Address: [address] [place], [place] [address]Performed By: #### 18303-0 #### [facility] IA [id number] [address] [place] [address] [place] AMERICAEosinophils (Bld) [#/Vol]0.74 10*3/uLHigh <0.46Avon HospitalComment on above:Order Comment: Specimen Type: BLOOD SPECIMEN Ordering Facility: [facility] Address: [address] [place], [place] [address]Performed By: #### 07730-7 #### [facility] CLIA [id number] [address] [place] [address] [place] AMERICAEosinophils/100 WBC (Bld)9.0 %NormalAv HospitalComment on above:Order Comment: Specimen Type: BLOOD SPECIMEN Ordering Facility: [facility] Address: [address] [place], [place] [address]Performed By: #### 09592-4 #### [facility] IA [id number] [address] [place] [address] [place] AMERICAErythrocyte distribution width (RBC) [Ratio]14.1 %Yvupwz31.5-15.0Av HospitalComment on above:Order Comment: Specimen Type: BLOOD SPECIMEN Ordering Facility: [facility] Address: [address] [place], [place] [address]Performed By: #### 96646-3 #### [facility] IA [id number] [place] [address] [place] AMERICAHematocrit (Bld) [Volume fraction]53.2 % High39.0-51.0Av HospitalComment on above:Order Comment: Specimen Type: BLOOD SPECIMEN Ordering Facility: [facility] Address: [address] [place], [place] [address]Performed By: #### 60549-4 #### [facility] IA [id number] [address] [place] [address] [place] AMERICAHemoglobin (Bld) [Mass/Vol]17.8 g/dLHigh 13.0-17.0Av HospitalComment on above:Order Comment: Specimen Type: BLOOD SPECIMEN Ordering Facility: [facility] Address: [address] [place], [place] [address]Performed By: #### 15583-0 #### [facility] IA [id number] [place] [address] [place] AMERICAImmature granulocytes (Bld) [#/Vol]0.06 10*3/uLNormal<0.10Avon HospitalComment on above:Order Comment: Specimen Type: BLOOD SPECIMEN Ordering Facility: [facility] Address: [address] [place], [place] [address]Performed By: #### 09602-1 #### [facility] IA [id number] [address] [place] [address] [place] AMERICAImmature granulocytes/100 WBC (Bld)0.7 % NormalAv HospitalComment on above:Order Comment: Specimen Type: BLOOD SPECIMEN Ordering Facility: [facility] Address: [address] [place], [place] [address]Performed By: #### 94342-7 #### [facility] IA [id number] [address] [place] [address] [place] AMERICALymphocytes (Bld) [#/Vol]1.48 10*3/uL Normal1.00-4.00Av HospitalComment on above:Order Comment: Specimen Type: BLOOD SPECIMEN Ordering Facility: [facility] Address: [address] [place], [place] [address]Performed By: #### 44200-2 #### [facility] IA [id number] [address] [place] [address] [place] AMERICALymphocytes/100 WBC (Bld)18.1 %NormalAv HospitalComment on above:Order Comment: Specimen Type: BLOOD SPECIMEN Ordering Facility: [facility] Address: [address] [place], [place] [address]Performed By: #### 79447-2 #### [facility] IA [id number] [address] [place] [address] [facility] (RBC) [Entitic mass]26.5 pgNormal 26.0-34.0Av HospitalComment on above:Order Comment: Specimen Type: BLOOD SPECIMEN Ordering Facility: [facility] Address: [address] [place], [place] [address]Performed By: #### 63008-1 #### [facility] IA [id number] [address] [place] [address] [facility] (RBC) [Mass/Vol]33.5 g/dLNormal 30.5-36.0Av HospitalComment on above:Order Comment: Specimen Type: BLOOD SPECIMEN Ordering Facility: [facility] Address: [address] [place], [place] [address]Performed By: #### 05577-3 #### [facility] IA [id number] [address] [place] [address] [place] AMERICAMCV (RBC) [Entitic vol]79.2 fLLow 80.0-100.0Av HospitalComment on above:Order Comment: Specimen Type: BLOOD SPECIMEN Ordering Facility: [facility] Address: [address] [place], [place] [address]Performed By: #### 40930-5 #### [facility] IA [id number] [address] [place] [address] [place] AMERICAMonocytes (Bld) [#/Vol]0.60 10*3/uLNormal <0.87Av HospitalComment on above:Order Comment: Specimen Type: BLOOD SPECIMEN Ordering Facility: [facility] Address: [address] [place], [place] [address]Performed By: #### 87768-9 #### [facility] IA [id number] [address] [place] [address] [place] AMERICAMonocytes/100 WBC (Bld)7.3 %NormalAv HospitalComment on above:Order Comment: Specimen Type: BLOOD SPECIMEN Ordering Facility: [facility] Address: [address] [place], [place] [address]Performed By: #### 52294-0 #### [facility] IA [id number] [address] [place] [address] [place] AMERICANeutrophils (Bld) [#/Vol]5.19 10*3/uL Normal1.45-7.50Av HospitalComment on above:Order Comment: Specimen Type: BLOOD SPECIMEN Ordering Facility: [facility] Address: [address] [place], [place] [address]Performed By: #### 09660-0 #### [facility] IA [id number] [address] [place] [address] [place] AMERICANeutrophils/100 WBC (Bld)63.4 %NormalAvon HospitalComment on above:Order Comment: Specimen Type: BLOOD SPECIMEN Ordering Facility: [facility] Address: [address] [place], [place] [address]Performed By: #### 77725-3 #### [facility] IA [id number] [address] [place] [address] [place] AMERICANucleated RBC (Bld) [#/Vol]10*3/uLNormal <0.01Avon HospitalComment on above:Order Comment: Specimen Type: BLOOD SPECIMEN Ordering Facility: [facility] Address: [address] [place], [place] [address]Performed By: #### 28287-8 #### [facility] IA [id number] [address] [place] [address] [place] AMERICANucleated RBC/100 WBC (Bld) [Ratio]0.0 /100 WBCNormalAvon HospitalComment on above:Order Comment: Specimen Type: BLOOD SPECIMEN Ordering Facility[facility] Address: [address] [place], [place] [address]Performed By: #### 47052-0 #### [facility] IA [id number] [address] [place] [address] [place] AMERICAPlatelet mean volume (Bld) [Entitic vol] 12.2 fLNormal9.0-12.7Avon HospitalComment on above:Order Comment: Specimen Type: BLOOD SPECIMEN Order[facility] Facility: [facility] Address: [address] [place], [place] [address]Performed By: #### 83737-3 #### [facility] IA [id number] [address] [place] [address] [place] AMERICAPlatelets (Bld) [#/Vol]218 10*3/uLNormal 150-400Avon HospitalComment on above:Order Comment: Specimen Type: BLOOD SPECIMEN Ordering Facility: [facility] Address: [address] [place], [place] [address]Performed By: #### 66622-2 #### [facility] IA [id number] [address] [place] [address] [place] AMERICARBC (Bld) [#/Vol]6.72 10*6/uLHigh 4.20-6.00Ellsworth HospitalComment on above:Order Comment: Specimen Type: BLOOD SPECIMEN Ordering Facility[facility] Address: [address] [place], [place] [address]Performed By: #### 43918-6 #### [facility] IA [id number] [address] [place] [address] [place] AMERICAWBC (Bld) [#/Vol]8.19 10*3/uLNormal 3.70-11.00Av HospitalComment on above:Order Comment: Specimen Type: BLOOD SPECIMEN Ordering Facility: [facility] Address: [address] [place], [place] [address]Performed By: #### 87926-2 #### [facility] IA [id number] [address] [place] [address] [place] AMERICABasophils (Bld) [#/Vol]0.12 10*3/uLHigh <0.11 k/uLMorrow County HospitalBasophils/100 WBC (Bld)1.5 %[facility] Differential cell count method Nom (Bld)AutoCleveland ClinicEosinophils (Bld) [#/Vol]0.74 10*3/uLHigh<0.46 k/uLCleProMedica Defiance Regional HospitalEosinophils/100 WBC (Bld)9.0 % [facility] HospitalErythrocyte distribution width (RBC) [Ratio]14.1 %11.5 - 15.0 % [facility] HospitalHematocrit (Bld) [Volume fraction]53.2 %High39.0 - 51.0 % [facility] HospitalHemoglobin (Bld) [Mass/Vol]17.8 g/qKAdll35.0 - 17.0 g/dL [facility] HospitalImmature granulocytes (Bld) [#/Vol]0.06 10*3/uL<0.10 k/uL [facility] HospitalImmature granulocytes/100 WBC (Bld)0.7 %[facility] Lymphocytes (Bld) [#/Vol]1.48 10*3/uL1.00 - 4.00 k/uLMorrow County Hospital Lymphocytes/100 WBC (Bld)18.1 %[facility] CampusH (RBC) [Entitic mass]26.5 pg 26.0 - 34.0 pgClevelSelect Medical OhioHealth Rehabilitation HospitalMCHC (RBC) [Mass/Vol]33.5 g/dL30.5 - 36.0 g/dL [facility] CampusV (RBC) [Entitic vol]79.2 fLLow80.0 - 100.0 fLClevelSelect Medical OhioHealth Rehabilitation Hospital Monocytes (Bld) [#/Vol]0.60 10*3/uL<0.87 k/uLMorrow County HospitalMonocytes/100 WBC (Bld)7.3 %[facility] County HospitalNeutrophils (Bld) [#/Vol]5.19 10*3/uL1.45 - 7.50 k/uL [facility] HospitalNeutrophils/100 WBC (Bld)63.4 %[facility] HospitalNucleated RBC (Bld) [#/Vol]<0.01 k/uLMorrow County HospitalNucleated RBC/100 WBC (Bld) [Ratio]0.0 /100 WBCMorrow County HospitalPlatelet mean volume (Bld) [Entitic vol]12.2 fL9.0 - 12.7 fLClevelatrium health harrisburg ClinicPlatelets (Bld) [#/Vol]218 10*3/uL150 - 400 k/[facility] HospitalRBC (Bld) [#/Vol]6.72 10*6/uLHigh4.20 - 6.00 m/[facility] HospitalWBC (Bld) [#/Vol]8.19 10*3/uL3.70 - 11.00 k/uLMorrow County HospitalCNOVon 45-72-1025EBZO NormalMorrow County Hospital ClevelandCRP SerPl-mCncon 12-75-9402FRC [Mass/Vol]mg/L Normal<0.9Avon HospitalComment on above:Order Comment: Specimen Type: BLOOD SPECIMEN Ordering Facility: [facility] Address: [address] [place] [address]Qbktpdwkd By: #### 1988-5, 06736-2 #### [facility] CLIA [id number] [address] [facility] [place] [address] [place] AMERICAComprehensive metabolic 2000 panelon 61-68-9967Cgoqtda [Mass/Vol]5.0 g/dLHigh3.9-4.9Acarrier clinic HospitalComment on above: Order Comment: Specimen Type: BLOOD SPECIMEN Ordering Facility: [facility] Address: [address] [place], [place] [address]Gehedbsra By: #### 1988-03, #### [facility] CLIA [id number] [address] [place] [address] [place] AMERICAALP [Catalytic activity/Vol]124 U/LHigh 38-113Ellsworth HospitalComment on above:Order Comment: Specimen Type: BLOOD SPECIMEN Ordering Facility: [facility] Address: [address] [place], [place] [address]Performed By: #### 1988-03, #### [facility] IA [id number] [address] [place] [address] [place] AMERICAALT [Catalytic activity/Vol]133 U/LHigh 10-54Av HospitalComment on above:Order Comment: Specimen Type: BLOOD SPECIMEN Ordering Facility: [facility] Address: [address] [place], [place] [address]Performed By: #### 1988-03, #### [facility] IA [id number] [address] [place] [address] [place] AMERICAAnion gap [Moles/Vol]13 mmol/LNormal9-18 Ellsworth HospitalComment on above:Order Comment: Specimen Type: BLOOD SPECIMEN Ordering Facility: [facility] Address: [address] [place] [address]Nakbbnxot By: #### 1988-03, #### [facility] CLIA [id number] [address] [place] [address] [place] AMERICAAST [Catalytic activity/Vol]78 U/LHigh 14-40Avon HospitalComment on above:Order Comment: Specimen Type: BLOOD SPECIMEN Ordering Facility: [facility] Address: [address] [place], [place] [address]Performed By: #### #### [facility] CLIA [id number] [address] [place] [address] [place] AMERICABilirubin [Mass/Vol]0.5 mg/dLNormal 0.2-1.3Avon HospitalComment on above:Order Comment: Specimen Type: BLOOD SPECIMEN Ordering Facility: [facility] Address: [address] [place], [place] [address]Performed By: #### #### [facility] IA [id number] [address] [place] [address] [place] AMERICACalcium [Mass/Vol]9.6 mg/dLNormal8.5-10.2 Gavi HospitalComment on above:Order Comment: Specimen Type: BLOOD SPECIMEN Ordering Facility: [facility] Address: [address] [place], [place] [address]Performed By: #### #### [facility] IA [id number] [address] [place] [address] [place] AMERICAChloride [Moles/Vol]102 mmol/LNormal 97-105Av HospitalComment on above:Order Comment: Specimen Type: BLOOD SPECIMEN Order[facility]: [facility] Address: [address] [place], [place] [address]Performed By: #### #### [facility] IA [id number] [address] [place] [address] [place] AMERICACO2 [Moles/Vol]22 mmol/DYclxoy63-96Wyho HospitalComment on above:Order Comment: Specimen Type: BLOOD SPECIMEN Order[facility] Address: [address] [place], [place] [address]Performed By: #### 1988-03, #### [facility] IA [id number] [address] [place] [address] [place] AMERICACreatinine [Mass/Vol]1.04 mg/dLNormal 0.73-1.22Av HospitalComment on above:Order Comment: Specimen Type: BLOOD SPECIMEN Order[facility] Address: [address] [place] [address]Ahyhzxryr By: #### 1988-03, 95378-5 #### [facility] CLIA [id number] [address] [place] [address] [place] AMERICACreatinine and Glomerular filtration rate.predicted panel (S/P/Bld)98 mL/min/1.73m???Normal>=60Av HospitalComment on above:Order Comment: Specimen Type: BLOOD SPECIMEN Ordering Facility: [facility] Address: [address] [place] [address]Smwrfv Comment: Estimated Glomerular Filtration Rate (eGFR) is calculated using the 2020 CKD-EPI cre atinine equation. This equation utilizes serum creatinine, sex, and age as parameters. The creatinine assay has traceable calibration to isotope dilution- mass spectrometry. Refer to KDIGO guidelines for clinical interpretation. In patients with unstable renal function, e.g. those with acute kidney injury, the eGFR may not accurately reflect actual GFR.Performed By: #### 1988-03, #### [facility] CLIA [id number] [address] [place] [address] [place] AMERICAGlucose [Mass/Vol]106 mg/mHXvau59-07Odnu HospitalComment on above:Order Comment: Specimen Type: BLOOD SPECIMEN Ordering Facility: [facility] Address: [address] [place] [address]Lxsjix Comment: The [place] Diabetes Association (ADA) provides guidance for cutoff [...] Standards of Medical Care in Diabetes 2016, [employer]. Diabetes Care. 2016.39(Suppl 1).Performed By: #### 1988-03, #### [facility] IA [id number] [address] [place] [address] [place] AMERICAPotassium [Moles/Vol]4.7 mmol/LNormal 3.7-5.1Acarrier clinic HospitalComment on above:Order Comment: Specimen Type: BLOOD SPECIMEN Order[facility] Address: [address] [place], [place] [address]Performed By: #### 1988-03, #### [facility] IA [id number] [address] [place] [address] [place] AMERICAProtein [Mass/Vol]7.9 g/dLNormal6.3-8.0 Ellsworth HospitalComment on above:Order Comment: Specimen Type: BLOOD SPECIMEN Order[facility] Address: [address] [place], [place] [address]Performed By: #### #### [facility] IA [id number] [address] [place] [address] [place] AMERICASodium [Moles/Vol]137 mmol/FAeqrom323-318 Ellsworth HospitalComment on above:Order Comment: Specimen Type: BLOOD SPECIMEN [facility] Address: [address] [place], [place] [address]Performed By: #### #### [facility] IA [id number] [address] [place] [address] [place] AMERICAUrea nitrogen [Mass/Vol]11 mg/dLNormal 9-24Ellsworth HospitalComment on above:Order Comment: Specimen Type: BLOOD SPECIMEN [facility] Address: [address] [place], [place] [address]Performed By: #### 1988-03, #### [facility] IA [id number] [address] [place] [address] [place] AMERICAAlbumin [Mass/Vol]5.0 g/dLHigh3.9 - 4.9 g/dLLakehealth Beachwood Medical Centerveland ClinicALP [Catalytic activity/Vol]124 U/LHigh38 - 113 U/LCleveland ClinicALT [Catalytic activity/Vol]133 U/LHigh10 - 54 U/LCleveland ClinicAnion gap [Moles/Vol]13 mmol/L9 - 18 mmol/LCleveland ClinicAST [Catalytic activity/Vol]78 U/LHigh14 - 40 U/LCleveland ClinicBilirubin [Mass/Vol]0.5 mg/dL 0.2 - 1.3 mg/dLCleuniversity hospitals elyria medical center ClinicCalcium [Mass/Vol]9.6 mg/dL8.5 - 10.2 mg/dL [facility] ClinicChloride [Moles/Vol]102 mmol/L97 - 105 mmol/LCleveland ClinicCO2 [Moles/Vol]22 mmol/L22 - 30 mmol/LCleveland ClinicCreatinine [Mass/Vol]1.04 mg/dL0.73 - 1.22 mg/dLMorrow County HospitalEstimated Glomerular Filtration Rate98 mL/min/1.73m>=60 mL/min/1.73mCleveland ClinicGlucose [Mass/Vol]106 mg/aMLtme79 - 99 mg/dLMorrow County HospitalPotassium [Moles/Vol]4.7 mmol/L3.7 - 5.1 mmol/L [facility] ClinicProtein [Mass/Vol]7.9 g/dL6.3 - 8.0 g/dLBurlington ClinicSodium [Moles/Vol]137 mmol/L136 - 144 mmol/LCleveland Northfield City HospitalUrea nitrogen [Mass/Vol]11 mg/dL9 - 24 mg/dLHocking Valley Community HospitalR Westergren method (Bld) [Velocity]on 83-20-1088MZC (Bld) [Velocity]2 mm/h0 - 15 mm/hrHocking Valley Community HospitalR (Bld) [Velocity]2 mm/hNormal0-15Avon HospitalComment on above:Order Comment: Specimen Type: BLOOD SPECIMEN [facility] Address: [address] [place], [place] [address]Performed By: #### 4537-7 #### [facility] CLIA [id number] [address] [facility] [place] [address] [place] AMERICAHAV IgM Ser Qlon 09-12-2023 HAV IgM Ql (S)NegativeNormalNegativeAvon HospitalComment on above:Order Comment: Specimen Type: BLOOD SPECIMEN [facility] Address: [address] [place], [place] [address]Result Comment: No evidence of recent infection with Hepatitis A virus.Performed By: #### 1988-5, 18383-7 #### [facility] CLIA [id number] [address] [facility] [place] [address] [place] AMERICAHBV core IgM Ser Qlon 45-90-3517YPQ core IgM Ql (S)NegativeNormalNegativeAvon HospitalComment on above:Order Comment: Specimen Type: BLOOD SPECIMEN Ordering Facility: [facility] Address: [address] [place] [address] Comment: No evidence of recent infection with Hepatitis B virus. Should recent infection be suspected, repeat testing may be considered 3-4 weeks after this draw.Performed By: #### 25287-8, 39775-1, 5195-3, 60536-3 #### [facility] CLIA [id number] [address] [place] [address] [place] AMERICAHBV surface Ab Ql (S)on 25-02-5381XHR surface Ab Qn (S)<8.00NormalAvon HospitalComment on above:Order Comment: Specimen Type: BLOOD SPECIMEN Order[facility] Address: [address] [place], [place] [address]Result Comment: <8 mIU/mL: No serological evidence of immunity to Hepatitis B Virus. >/= 8 to <12 mIU/mL: No serological evidence of immunity to Hepatitis B Virus. >/= 12 mIU/mL: Consistent with serological evidence of immunity to Hepatitis B Virus.Performed By: #### 99521-5, 26504-2, 5195-3, 67894-0 #### [facility] CLIA [id number] [address] [place] [address] [place] AMERICAHBV surface Ab Ser Qlon 00-50-3852BXZ surface Ab Ql (S)NegativeNormalAvon HospitalComment on above:Order Comment: Specimen Type: BLOOD SPECIMEN [facility] Address: [address] [place], [place] [address]Result Comment: No serological evidence of immunity to Hepatitis B Virus.Performed By: #### 32169-8, 27095-6, 5195-3, 83057-4 #### [facility] CLIA [id number] [address] [place] [address] [place] AMERICAHBV surface Ag Ser Qlon 46-22-4878ONF surface Ag Ql (S)Initially ReactiveAbnormalNegativeEllsworth Hospital Comment on above:Order Comment: Specimen Type: BLOOD SPECIMEN [facility] Address: [address] [place], [place] [address]Result Comment: Please see HBsAg confirmatory assay result. Confirmatory testing for hepatitis B surface antigen has been ordered and charged.Performed By: #### 1988-03, #### [facility] CLIA [id number] [address] [place] [address] [place] AMERICAHBV surface Ag Ql (S)PositiveAbnormal Negative, Test not IndicatedAv HospitalComment on above:Order Comment: Specimen Type: BLOOD SPECIMEN Ordering Facility: [facility] Address: [address] [place], [place] [address]Result Comment: The result is consistent with active Hepatitis B Virus Infection. HBsAg, however, may test positive up to few weeks after administration of Hepatitis Be vaccine. Clinical correlation is required.Performed By: #### 1988-03, #### [facility] CLIA [id number] [address] [place] [address] [place] AMER[place]CV Ab Ser Qlon 31-04-6860KVF Ab Ql (S) PositiveAbnormalNegativeLayton HospitalComment on above:Order Comment: Specimen Type: BLOOD SPECIMEN Ordering Facility: [facility] Address: [address] [place], [place] [address]Performed By: #### 56881-0, 21345-4 #### [facility] CLIA [id number] [address] [place] [address] [place]CV RNA SerPl GERMÁN+probe-aCnc on 06-46-6561SPO RNA GERMÁN+probe QnNot detectedNormalHCV RNA not detected by PCR. Layton HospitalComment on above:Order Comment: Specimen Type: BLOOD SPECIMEN Ordering Facility: [facility] Address: [address] [place], [place] [address]Performed By: #### 70952-4 #### [facility] CLIA [id number] [address] [place] [address] [place] AMERICAPerformed By: #### 61256-0, 17507-8 #### [facility] CLIA [id number] [address] [place] [address] [place] AMER[place]AHIV 1+2 Ab IA Qlon 85-13-3578JOF 1 and 2 Ab IA.rapid [facility] HospitalComment on above:Order Comment: Specimen Type: BLOOD SPECIMEN Ordering Facility: [facility] Address: [address] [place], [place] [address]Result Comment: Test not indicated. Performed By: #### 1987-, 87917-8 #### [facility] CLIA [id number] [address] [place] [address] [place] AMER[place]AHIV 1+2 Ab+HIV1 p24 Ag IA QlNon-Reactive NormalNonreLifePoint HospitalsComment on above:Order Comment: Specimen Type: BLOOD SPECIMEN Ordering Facility: [facility] Address: [address] [place], [place] [address]Performed By: #### 1988-03, 14557-5 #### [facility] CLIA [id number] [address] [place] [address] [place]IV immunoassay testing algorithm interpretation (S/P/Bld) [Interp][facility] HospitalComment on above:Order Comment: Specimen Type: BLOOD SPECIMEN Ordering Facility: [facility] Address: [address] [place], [place] [address]Result Comment: No evidence of HIV- 1 or HIV-2 infection. Should recent infection be suspected, repeat testing may be considered 2-3 weeks after this draw. [place] Rev. Code 3701.243(E): This information has been [...] the release of HIV test results or diagnoses.Performed By: #### 1988-5, 72321-4 #### [facility] CLIA [id number] [facility] [place] [address] [facility]ENTERPT panel Coag (PPP)on 16-37-7084TIK Coag (PPP) [Relative time]1.0 {INR}Normal0.9-1.3Avon HospitalComment on above:Order Comment: Specimen Type: BLOOD SPECIMEN Ordering Facility: [facility] Address: [address] [place], [place] [address], [place] [address]Gphtyw Comment: Vitamin K Antagonist (VKA) Therapeutic Range: INR 2 to 3 (Target INR of 2.5) Note: For patients treated with VKA drugs, such as warfarin, the [employer] 2012 Guideline recommends [...] Chest 2012, 141:7S-47S Adriana RA, et al. JACC 2017, 70: 252-289Performed By: #### 41420-0 #### [facility] CLIA [id number] [facility] [place] [address] [facility]ENTERPT Coag (PPP) [Time]10.8 sNormal9.7-13.0 Gavi HospitalComment on above:Order Comment: Specimen Type: BLOOD SPECIMEN Ordering Facility: [facility] Address: [address] [place], [place] [address]Ttcumanzc By: #### 22717-4 #### [facility] CLIA [id number] [facility] [place] [address] [place] AMERICAINR Coag (PPP) [Relative time]1.0 {INR} 0.9 - 1.3Cleveland ClinicPT Coag (PPP) [Time]10.8 s9.7 - 13.0 secMorrow County HospitalCOVID CepheidOrdered By: Rosi Shultz on 30-31-1109AAGL-CoV-2 (COVID- 19) Ab IA QlPositiveNegativeAshtabula General HospitalComment on above: This is a duplicate Cepheid Xpert Xpress CoV-2/Flu/RSV Plus RNA by RT-PCR result to be used for statistical tracking purpose only.SARS-CoV-2 (COVID-19) RNA GERMÁN+probe Ql (Unsp spec)Ashtabula General HospitalXR ANKLE RT MIN 3 VIEWS on 80-64-2037XV ANKLE RT MIN 3 VIEWSEXAM: XR ANKLE RT MIN 3 VIEWS, XR [...] Electronically authenticated by: ADOLFO HAIDER Date: 2022-05-15 21:06Flower HospitalCoding Summaryon 56-19-4319Itranu SummaryHTMLBase 64 WbwczanrCHv3eKh+PGhlYWQ+FJ5AFAJhZ57ekTFalE3VN1bCWZ1EJJWGPTNQEN0IIZ8ikLK6FVflA0Dl biAv [file] YXB (more content not included)...NormalMagruder HospitalCoding SummaryHTMLBase 64 RploczqgLTp6tYt+PGhlYWQ+XR2RNGTjX58hgOCurU5FH3vEDD6HGOHSFRDJDJ9WWE1lyJH4OBpxD0Su biAv [file] ZTo (more content not included)...[facility] Clinical Summaryon 80-00-7627BM Clinical SummaryC[facility] [address] [place] [address] ED Clinical Summary PERSON INFORMATION Name: ANGELITA MOMIN Age: 31 Years Sex: MALE : 1990 MRN: Acct#: Visit Reason: Hand pain-swelling; RT HAND PAIN/SWOLLEN/INJURY Arrival: 04/19/2022 09:57:26 Discharge: 04/19/2022 11:35:00 LOS: 000 01:38 Check In: 04/19/2022 09:57:26 Checkout:04/19/2022 11:35:00 Address: [address] [place] [address] PCP: Bob LEWIS, Chetan Young PROVIDER INFORMATION Provider Role Assigned Unassigned Ag REINOSO, Rosa ED PA 04/19/2022 10:02:36 Melissa RN, Mary [...] Boxer's Fracture; Cast or Splint Care, Adult, Iubq-ul-Hqld Follow-Up: With: Address: When: Cruz Tesfaye MD [address] [place] [address] Within 1 to 2 days Comments: Call for follow up appointment DIAGNOSIS: 1:Fracture of metacarpal of right hand, closed Patient Understands: Yes - Patient/family/caregiver verbalizes understanding of instructions given Comment:[facility] Patient Summaryon 01-38-0778FU Patient Summary [facility] Emergency Department [address] [place] [address] PATIENT DISCHARGE INSTRUCTIONS Patient Information Name: ANGELITA MOMIN Age: 31 Years Date of : 1990 Reason For Visit: Hand pain-swelling; RT HAND PAIN/SWOLLEN/INJURY Arrival Time: 04/19/2022 09:57:26 Primary Care Physician: Bob LEWIS, Chetan Young Attending Physician: Thanh Weaver MD Comment: Visit Diagnosis: Diagnoses This Visit Fracture of metacarpal of right hand, closed (S62.309A) Hand pain-swelling ([id number]) Prescription Information: If you have been given a prescription for narcotics, seek immediate medical attention if you have any difficulty breathing or any sudden status changes such as confusion andsleepiness. If you or anyone you know is experiencing suicidal thoughts, mental health, alcohol and/or drug addiction problems; contact the [facility] 23/06 Crisis Hotline -text 4hope to [...] documents With: Address: When: Cruz Tesfaye MD [address] [place] [address] [place] [address] Within 1 to 2 days Comments: Call for follow up appointment Medication Information: The exam and treatment you received today in the [facility] Emergency Department were for an urgent problem and are not intended as complete care. It is important for you to follow up with a doctor, nurse practitioner, or physician?s publisher assistant for ongoing care. If your symptoms become worse or you donot improve as expected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 abuse and overdose. ? If you believe you may be struggling with addiction, tell your health child adolescent care and ask for guidance or call SAMA?S National Helpline at 8-313-900-HELP. v Source: US Department of Health and Human Services/Center for Disease Control & Prevention [facility] Medications Given: Medication Dose Route ibuprofen 600.00 mg Oral bacitracin topical 1.00 siva Topical Medication Information: New Medications Printed Prescriptions bacitracin topical (Bacitracin top 500 units/g Oint TUBE (15 gram)) 1 Application Topical 4 times aday. Refills: 0. Medications to Continue with No Changes Other Medications acetaminophen-hydrocodone (Milton 325 mg-5 mg oral tablet) 1 Tablets [...] to serve you. Thank you for choosing [facility] Patient Education Materials: Burn Care, Adult A burn is an injury to the skin or the tissues under the skin. There are three types of reyna: ? First degree. These reyna may cause the skin to be red and slightly swollen. ? Second degree. These reyna are very painful and cause the skin to be very red. The skin may also leak fluid, look shiny, and develop blisters. ? Third degree. These reyna cause permanent damage. They either turn the skin white or black and make it look charred, dry, and leathery. Taking care of your burn properly can help to prevent pain and infection. It can also help the burnto heal more quickly. What are the risks? Complications from reyna include: ? Damage to the skin. ? Reduced blood flow near the injury. ? tissue. ? Scarring. ? Problems with movement, if the burn happened near a joint or on the hands or feet. Severe reyna can lead to problems that affect the [...] or a bad smell. Medicine ? Take dose-api-kqjqjqt and prescription medicines only as told by [...] or a bad smell. Medicine ? Take ojkb-jle-vpluzjg and prescription medicines only as told by [...] or a bad smell. Medicine ? Take ivxx-erm-febizba and prescription medicines only as told by [...] 11/17/2006 Document Revised: 10/30/2018 Document Reviewed: 05/06/2017 [employer] Patient Education ? 2019 [employer]. IMERRILL KYLE T , have received the following patient education materials/instructions and have verbalized understanding: Patient Education Materials: Burn Care, Adult Follow-up Instructions: With: Address: When: [facility]: [facility] [place] [phone] In 3 days 02/23/2021 Patient Signature Date Clinician/Nurse Signature Date 02/20/2021 11:51:20[facility]irkSouth[facility] CenterPrescriptions/Work Noteson [id number]/Work Notes [id number]#1.00CD:127NoJ.W. Ruby Memorial HospitalWorkers Comp Formson 44-82-6025Naxxmnu Comp Forms [id number]#1.00CD:127Wilson HealthAlcohol, Medicalon 27-25-3221Sermhioap/dLInvalid Interpretation Code<10.0 mg/dLGMC LABInterpretation and review of laboratory resultsNormalInvalid Interpretation CodeCURAHEALTH [facility] [place] LABCBC Auto Differentialon 64-03-6352Iyznjokwg6.07 K/mcL Invalid Interpretation Code0.00 - 0.30GMC LABBasophils/100 leukocytes0.9 % Invalid Interpretation CodeGMC LABEosinophils0.21 K/mcLInvalid Interpretation Code0.00 - 0.50GMC LABEosinophils/100 leukocytes2.8 %Invalid Interpretation Code GMC LABErythrocytes (RBC)0.00 K/mcLInvalid Interpretation Code0.00 - 0.00GMC LAB Erythrocytes (RBC)5.87 M/mcLInvalid Interpretation Code4.50 - 5.90GMC LAB Hematocrit (HCT)42.7 %Invalid Interpretation Code41 - 53 %GMC LABHemoglobin (HGB)13.9 g/dLInvalid Interpretation Code13.5 - 17.5 g/dLGMC LABIG Absolute0.02 K/mcLInvalid Interpretation Code0.00 - 0.30GMC LABIG Percent0.30 %Invalid Interpretation CodeC LABInterpretation and review of laboratory results AbnormalInvalid Interpretation CodeC LABLymphocytes2.29 K/mcLInvalid Interpretation Code0.90 - 4.00GMC LABLymphocytes/100 hermzwidrz37.9 %Invalid Interpretation CodeCURAHEALTH [facility] [place] LWIDHU38.7 pgLow26 - 34 pgGMC XPNQKHX76.6 g/dLInvalid Interpretation Code31 - 37 g/dLGMC YTWNYW91.7 fLLow80 - 100 fLGMC LABMonocytes 0.54 K/mcLInvalid Interpretation Code0.30 - 0.90GMC LABMonocytes/100 leukocytes 7.3 %Invalid Interpretation CodeC LABNeutrophils4.28 K/mcLInvalid Interpretation Code1.70 - 7.00GMC LABNeutrophils/100 gjzgodwfkm56.8 %Invalid Interpretation CodeGMC LABNucleated erythrocytes/100 erythrocytes0.0 %Invalid Interpretation CodeC LABPlatelet mean volume (PMV)10.9 fLInvalid Interpretation Code9 - 15.5 fLGMC UZOHfjfdxlnd205 K/mcLInvalid Interpretation Ahff185 - 400GM LABRDW-CA15.1 %High11.6 - 14.8 %[facility] [place] LABWBC (Leukocytes)7.41 K/mcLInvalid Interpretation Code4.50 - 11.00GMC LABCBC w/ Diffon 11-21-2017 CreatinineThe following orders were created for panel order CBC w/ Diff. Procedure Abnormality Status --------- ------ CBC Auto Differential[[id number]] Abnormal Final result Please view results forthese tests on the individual orders.Invalid Interpretation CodeOhioHealth Work Phone: cMPon 21-28-6590Wzbeksa aminotransferase (ALT)19 U/L Invalid Interpretation Code0 - 40 U/LGMC LABAlbumin4.4 g/dLInvalid Interpretation Code3.2 - 5.2 g/dLGMC LABAlkaline phosphatase (ALP)84 U/LInvalid Interpretation Code40 - 140 U/LGMC LABAnion gap16 mmol/LInvalid Interpretation Code10 - 20 mmol/LGMC LABAspartate aminotransferase (AST)23 U/LInvalid Interpretation Code0 - 45 U/LGMC LABBicarbonate (HCO3)24 mmol/LInvalid Interpretation Code21 - 32 mmol/LGMC LABBilirubin (total)0.8 mg/dLInvalid Interpretation Code0 - 1.3 mg/dLGMC LABBUN/Creatinine Ratio14.6 mg/mgInvalid Interpretation Code10.0 - 20.0GMC LABCalcium9.2 mg/dLInvalid Interpretation Code 8.4 - 10.2 mg/dLGMC QDSPxfabjru29 mmol/LInvalid Interpretation Code98 - 108 mmol/LGMC LABCreatinine0.89 mg/dLInvalid Interpretation Code0.5 - 1.3 mg/dLGMC LABeGFR (non-black)118 mL/min/{1.73_m2}Invalid Interpretation Code>=60GM LAB eGFR (non-black)The eGFR should be used for monitoring renal function only and not for medication dosing.Invalid Interpretation CodeGMC HIWHdyuydk52 mg/dL Invalid Interpretation Code65 - 99 mg/dLGMC LABPotassium3.5 mmol/LInvalid Interpretation Code3.5 - 5.1 mmol/LGMC LABProtein7.5 g/dLInvalid Interpretation Code6 - 8 g/dLGMC PPAChjejz108 mmol/LInvalid Interpretation Dezk012 - 145 mmol/L GMC LABUrea mpfqdean45 mg/dLInvalid Interpretation Code8 - 25 mg/dLGMC LABGrey Topon 59-35-4158Tsxoc TubeHold for add-ons.Invalid Interpretation CodeGMC LAB [place] Drawon 74-78-3799LdhxaqxhyqYqt following orders were created for panel order [place] Draw. Procedure Abnormality Status --------- ------ Lavender Top[[id number]] Final result Mint Green Top[[id number]] Final result Gold Top[[id number]] Final result Light Blue Top[[id number]] Final result Rowe Top[[id number]] Final result Please view results for these tests on the individual orders.Invalid Interpretation CodeWilson Memorial Hospital Work Phone: XR Foot Right 3+ Views (Standard)on 41-10-4296PR Foot Right 3+ Views (Standard)Interface, Rad In [employer] - 11/21/2017 7:58 AM EST EXAMINATION: 3 [...] IMPRESSION: No acute osseous abnormality. Workstation ID: [id number] Interpretation CodeANTHONY ST. LUKE'S MERIDIAN MEDICAL CENTERXR Foot Right 3+ Views (Standard)EXAMINATION: 3 VIEWS OF THE RIGHT FOOT 11/21/2017 [...] focal osseous lesion. No focal soft tissue abnormality.Invalid Interpretation Fly MediaXR Foot Right 3+ Views (Standard)No acute osseous abnormality. Workstation ID: [id number] Interpretation [employer] [place] No Panel InformationMorrow County Hospital Vital Signs Date TimeVital SignValuePerforming XozauvjuqWvprzuui43-72-3568 09:50-0400Body qluygm336 cmDamarcelina Ballard MD Work Phone: cWilson Street HospitalOggrkp62-94-7192 09:50-0400Body mass index (BMI) [Ratio]34.02 kg/i0Jrkkvmarcelina Ballard MD Work Phone: JWilson Street HospitalYkrjqu02-24-2128 09:50-0400Body temperature 96.91 [degF]Adolfo Ballard MD Work Phone: cWilson Street HospitalTinbfj35-13-6155 09:50-0400Body swynkz196.2 kgAdolfo Ballard MD Work Phone: [place] [address]-19-2024 09:50-0400Diastolic blood qgneptzq99 mm[Hg]Adolfo Ballard MD Work Phone: [place] [address]-19-2024 09:50-0400Heart rate96 /min Adolfo Ballard MD Work Phone: [place] [address]-19-2024 09:50-0400Respiratory rate 12 /minDavicole Ballard MD Work Phone: [place] [address]-19-2024 09:50-0400Systolic blood ulhtdodu575 mm[Hg]Adolfo Ballard MD Work Phone: [place] [address]-19-2024 07:53-0400Diastolic blood ugwrzfes59 mm[Hg]Charleen Laham MD Work Phone: [facility]08-19-2024 07:53-0400Heart rate89 /min Charleen Silver MD Work Phone: [facility]08-19-2024 07:53-0400Respiratory rate 18 /minCharleen Silver MD Work Phone: [facility]08-19-2024 07:53-0400Systolic blood mm[Hg]Charleen Silver MD Work Phone: [facility]07-30-2024 11:43-0400Body zouszf633.2 cmPacc 3 Work Phone: [facility]07-30-2024 11:43-0400Body mass index (BMI) [Ratio]36.14 kg/m2Pacc 3 Work Phone: [phone]07-30-2024 11:43-0400Body temperature 98.01 [degF]Pacc 3 Work Phone: [phone]07-30-2024 11:43-0400Body aqedud774.4 kgPacc 3 Work Phone: [phone]07-30-2024 11:43-0400Diastolic blood yzvirfhu07 mm[Hg]Pacc 3 Work Phone: [phone] HospitalComment on above:MAP: 5144-10-5990 11:43-0400Heart rate96 /minPacc 3 Work Phone: [phone]07-30-2024 11:43-0400Respiratory rate 17 /minPacc 3 Work Phone: [phone]07-30-2024 11:43-2124ZvZ5% (BldA) [Mass fraction]97 %Pacc 3 Work Phone: [phone]07-30-2024 11:43-0400Systolic blood yvbzwspo975 mm[Hg]Pacc 3 Work Phone: [phone] ClinicComment on above:MAP: 7007-74-5765 08:44-0400Body xthaer261 cmRhimanshu Becker MD Work Phone: [facility]and Quxlsw56-38-2424 08:44-0400Body mass index (BMI) [Ratio]36.59 kg/l1KgfdjttqJayleen Becker MD Work Phone: F[facility]and Lkebyu12-30-2560 08:44-0400Body temperature 98.4 [degF]Jayleen Becker MD Work Phone: K[facility]and Wjuttm17-43-2577 08:44-0400Body .28 kgJayleen Becker MD Work Phone: D[facility]and Byqcwv30-47-2728 08:44-0400Diastolic blood zyxpojvn95 mm[Hg]Jayleen Becker MD Work Phone: Wprom[facility] hospitaland Nxhtaw75-74-5403 08:44-0400Heart rate89 /min Jayleen Becker MD Work Phone: Eprom[facility] hospitaland Xytcdg11-04-6120 08:44-0400Systolic blood buyjmswv558 mm[Hg]Jayleen Becker MD Work Phone: C[facility]and Sasvrl55-89-3626 14:24-0400Diastolic blood emockhyj260 mm[Hg]Ct [facility]06-21-2024 14:24-0400Heart rate70 /minCt [facility]06-21-2024 14:24-0400Respiratory rate16 /minCt [facility]06-21-2024 14:24-6829HkD8% (BldA) [Mass fraction]100 %Ct [facility]06-21-2024 14:24-0400Systolic blood einraxha885 mm[Hg]Ct [facility]06-14-2024 11:20-0400Body zsswka659.4 cmReyna Antno APRN.DIAMOND WHEEL MOLDER Work Phone: [facility]06-14-2024 11:20-0400Body mass index (BMI) [Ratio]36.85 kg/l7KhrfkhajReyna Anton APRN.[employer] Work Phone: [facility]06-14-2024 11:20-0400Body temperature 97.81 [degF]Reyna Erich 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.[employer] Work Phone: [phone]06-14-2024 11:20-0400Body cztpah190.7 kgReyna Anton 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.[employer] Work Phone: [facility]06-14-2024 11:20-0400Diastolic blood uafsdvlq23 mm[Hg]Reyna Erich 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.[employer] Work Phone: [facility]06-14-2024 11:20-0400Heart rate74 /min Reyna Erich 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.[employer] Work Phone: [facility]06-14-2024 11:20-8627EcV7% (BldA) [Mass fraction]97 %Reyna Erich 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.[employer] Work Phone: [phone]06-14-2024 11:20-0400Systolic blood ouekoyys312 mm[Hg]Reyna Anton 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.[employer] Work Phone: [facility]10-18-2023 09:35-0400Body eaczsz519.2 cmBrjason Erich 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.[employer] Work Phone: [phone]10-18-2023 09:35-0400Body temperature 97.7 [degF]Reyna Erich 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.[employer] Work Phone: [phone]10-18-2023 09:35-0400Body edfksm659.04 kgBrjason Anton 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.[employer] Work Phone: [facility]10-18-2023 09:35-0400Diastolic blood rnuonbwx25 mm[Hg]Reyna Anton 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.[employer] Work Phone: [facility]10-18-2023 09:35-0400Heart rate79 /min Reyna Anton 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.[employer] Work Phone: [facility]10-18-2023 09:35-4177RaU8% (BldA) [Mass fraction]96 %Reyna Erich 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.[employer] Work Phone: [facility]10-18-2023 09:35-0400Systolic blood hderdruc640 mm[Hg]Reyna Anton 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.[employer] Work Phone: [facility]10-13-2023 10:02-0400Body hwaefc142.13 kgHunter Matzke DO Work Phone: [facility]10-13-2023 10:02-0400Diastolic blood yhdouofx34 mm[Hg]Piter Matzke DO Work Phone: [facility]10-13-2023 10:02-0400Heart rate87 /min Piter Matzke DO Work Phone: [facility]10-13-2023 10:02-0400Systolic blood elzhdkwb788 mm[Hg]Piter Matzke DO Work Phone: [facility]12-12-2022 11:58-0500Body qgvmbu593.96 cmMD Chetan Rojas ([facility]) Work Phone: [facility]12-12-2022 11:58-0500 Body yrxcebtcjbo07.4 [degF]MD Chetan Rojas ([facility]) Work Phone: [phone]12-12-2022 11:58-0500 Body fathgk928.05 kgMD Chetan Rojas ([facility]) Work Phone: [facility]12-12-2022 11:58-0500 Diastolic blood auclkton24 mm[Hg]MD Chetan Rojas ([facility]) Work Phone: [phone]12-12-2022 11:58-0500 Heart tgqt368 /minMD Chetan Rojas ([facility]) Work Phone: [phone]12-12-2022 11:58-0500 Respiratory rate14 /minMD Chetan Rojas ([facility]) Work Phone: [phone]12-12-2022 11:58-0500 SaO2% (BldA) [Mass fraction]96 %MD Chetan Rojas ([facility]) Work Phone: [facility]12-12-2022 11:58-0500 Systolic blood bpgxroyo259 mm[Hg]MD Chetan Rojas ([facility]) Work Phone: [facility]02-10-2022 12:00-0500 Body ynrdha851.69 cmThomas Olexa Other [employer] Other 02-10-2022 12:00-0500Body mass index (BMI) [Ratio] 26.16 kg/z1Djwded Olexa Other [employer] Other 02-10-2022 12:00-0500Body pynmsm34.17 kgThomas Olexa Other [employer] Other 10-14-2021 12:15-0400Body fmvbep582.69 cmThomas Olexa Other [employer] Other 10-14-2021 12:15-0400Body mass index (BMI) [Ratio]25.9 kg/o2Gfeswe Olex[employer] Other [employer] Other 10-14-2021 12:15-0400Body xnegqh26.27 kgThomas Olexa Other [employer] Other 06-12-2018 14:41-0400BMI (Body Mass Index)24.78 kg/m2 Adolfo PuenteXdiqbqhOhnjGpvrfj83-81-5077 14:41-0400Body Sfwebggkpki17.3 [degF]Adolfo RextdcwAhzsEerrwx14-81-5658 14:41-0400BP Hzickclkg33 mm[Hg]Adolfo Puente GuwaOukxhu37-62-8406 14:41-0400BP Ykkflkyy541 mm[Hg]Adolfo [facility] 2018 14:41-9140Fereil973 cmDamarcelina CoapnatMybvJsbiyf96-11-2731 14:41-0400 Pulse (Heart Rate)99 /minDavicole JtyvvknClbdSkbzls47-98-9589 14:41-0400Pulse Dftugimk98 %Adolfo HbhffjzIufzRsvprd17-17-4626 14:41-0400Respiratory Rate16 /min Adolfo HeqwiotCvuuAjyura81-51-0363 14:41-4103Btpznv42.54 kgDavicole Jeanes HospitalAscyKkpwhq99-68-3169 08:23-0500BP Pywgtnqea78 mm[Hg]Paulo [facility]youbGreen Cross Hospital Work Phone: [phone] 08:23-0500BP Iumpzwue082 mm[Hg]Paulo Rodriguez [facility] Work Phone: [phone] 08:23-0500Pulse (Heart Rate)99 /minPaulo [facility] Work Phone: [phone]) [phone] 08:23-0500Pulse Bsfocldw42 %Paulo Ayoubriel [facility] Work Phone: 1(861) 430-228912-22-2017 08:23-0500Respiratory Rate16 /minPaulo [facility] Work Phone: 1(641) 256-863412-22-2017 06:18-0500BMI (Body Mass Index)21.83 kg/m2 Paulo [facility] Work Phone: 1(165) [phone] 06:18-0500Body Wyaeoeyrrsw35.5 [degF][facility] Work Phone: 1(236) [phone] 06:18-9620Mhtadn083 cmPaul [facility] Work Phone: 1(223) [phone] 06:18-6445Awrmcs53.11 kgParex Rodriguez [facility] Work Phone: Encounters Encounter DateEncounter TypeCare ProviderFacilityStart: 08-12-2024 End: 59-60-5845Xvwijbyof encounterDavid Krpata MD Work Phone: General SurgeryStart: 07-21-2024 End: 82-46-1240qcdnilqobgBddu Laham MD Work Phone: Pain ManagementComment on above:Hello as you say we don't speak in the same language.Start: 07-19-2024 End: 18-93-1166tbetyieqwnPJCRJ KRPATAFacility:[facility] Hospitaltart: 07-19-2024 End: 16-59-3647Kxbfnuw encounter Simon Silver MD Work Phone: pain ManagementComment on above:Benzodiazepine dependence (HCC) (Primary Dx); Anxiety; Opioid dependence with withdrawal (HCC); Generalized abdominal painIncisional hernia, without obstruction or gangrene (Primary Dx); Post-operative painStart: 07-19-2024 End: 36-38-5811jfpylsrlvcHFJD LAHAMFacility:[facility]tart: 07-15-2024 RefillAdolfo Ballard MD Work Phone: [facility] SurgeryStart: 79-41-5821Uwxbotlcf encounter Adolfo Ballard MD Work Phone: [facility] SurgeryStart: 82-65-3691qsqmjqchemYhbuphc Larubina RNNURSE ON CALLComment on above:Blood In UrineEncounter for medical assessment (Primary Dx)Start: 86-24-4491Mukvtyi encounter statusAntoni Kong MD Work Phone: [facility] Work Phone: Start: 99-94-2404Geabfrrqcoag consultation with patientAntoni Kong MD Work Phone: Virtual MedicineStart: 06-30-2024 End: 38-55-2882Ypcoxjgrac and management of inpatientADOLFO BALLARD Facility:[facility]: 06-29-2024 End: 17-31-6136Kjufjdzcg to [place] [address] Work Phone: Pre AnesthesiaStart: 06-29-2024 End: 03-73-3341hsfkkodoicMTLUTXCJ MARKOFacility:[facility] Hospitaltart: 06-29-2024 End: 14-25-9484Dnlfwseylk consultationLourdes Counseling [facility] Work Phone: pre AnesthesiaComment on above:Pre-op evaluation (Primary Dx); Preoperative examination; Ventral hernia without obstruction or gangrene; Gastroesophageal reflux disease without esophagitis; Opioid dependence in remission (HCC); Obesity, Class II, BMI 35-39.9; S/P colectomy; Chronic hepatitis C without hepatic coma (HCC); Nicotine abuse; ETOH abuseStart: 37-72-5258Uxejzueqn for other preprocedural examinationMAX PAVBucyrus Community HospitalStart: 06-29-2024 End: 16-34-4277Veyivptsycrhh examination doneSt. [facility] Work Phone: [facility] Work Phone: Start: 06-08-2024 End: 57-62-8002oxjwgcymixWudd A Lashner MD Work Phone: GastroenterologyComment on above:Crohn's disease of small and large intestines with complication (HCC) (Primary Dx)Start: 06-08-2024 End: 84-56-8841Vkpguwgfcnze consultation with Kori Lopez MD Work Phone: GastroenterologyStart: 75-05-0671ohmqgpnvpiFiavt Krpata MD Work Phone: digestive Disease InstComment on above:06.30.24 Cure (Open VHR 3 hours los 2)Start: 26-99-9947Ipooskketxhae examination doneAdolfo Ballard MD Work Phone: [facility] ClinicStart: 05-28-2024 End: 46-07-1886Chulspn encounter procedureAdolfo Ballard MD Work Phone: General SurgeryComment on above:Incisional hernia, without obstruction or gangrene (Primary Dx); Obesity, Class II, BMI 35-39.9Start: 05-28-2024 End: 76-01-1934tthcdlixvrFFN ARIANA PAVLOCKFacility:[facility] HospitalStart: 05-28-2024 End: 19-62-6514ijaqozkyjzSRLKVJLX WILSONFacility:[facility] Hospitaltart: 05-28-2024 End: 05-41-8444Glstpal encounter procedureJayleen Becker MD Work Phone: General SurgeryComment on above:HerniaStart: 05-21-2024 End: 08-45-9118cugxtudhivLBJ ARIANA PAVLOCKFacility:[facility] Start: 05-21-2024 End: 12-88-4729Wkgrddbvux hospital visit by physicianCt [facility] Rad[facility] Ct ScanComment on above:Crohn's disease of small and large intestines with complication (HCC) [K50.819]Post-operative pain (Primary Dx)Start: 05-21-2024 End: 35-13-6760cbgpttcmxgNAD ARIANA PAVLOCKFacility:[facility] Start: 05-14-2024 End: 91-01-6915Vtltdck encounter procedureRusty Lopez MD Work Phone: GastroenterologyComment on above:Crohn's disease of small and large intestines with complication (HCC) (Primary Dx)Fatty liver (Primary Dx); Elevated liver enzymes; HerniaStart: 05-14-2024 End: 73-07-9441mugcacahagIBW ARIANA SCHMITTLOCKCarlsbad Medical Center:[facility] Start: 21-37-9628Qtrgectpv encounterRusty Lopez MD Work Phone: GastroenterologyComment on above:Orders; Color Television Console Monitor - OtherStart: 01-22-2024 End: 71-51-3507Yyhsuvxhy department patient visitChetan Rojas ([facility]) [facility] 01-22-2024 End: 69-45-7972Kboypzjbz department patient visitMD Chetan Rojas ([facility]) Work Phone: [facility] Work Phone: Start: 09-29-2023 End: 80-09-5878osleolkibpYlwh A Lashner MD Work Phone: GastroenterologyComment on above:Crohn's disease of small and large intestines with complication (HCC) (Primary Dx)Start: 09-29-2023 End: 36-72-4848Eplrtadhrfsp consultation with patientRusty Lopez MD Work Phone: [facility] MAINStart: 09-17-2023 End: 62-27-6639hrdgudfoewHDF ARIANA PAVLOCKGastroenterologyStart: 09-17-2023 End: 93-45-9570Lncaiju encounter procedureHepatology Procedures A5 Work Phone: ccf [facility] MAINComment on above:Elevated liver enzymes (Primary Dx); Chronic hepatitis C without hepatic coma (HCC); Crohn's disease of small intestine with other complication (HCC)Start: 67-28-2290Zlimmeoia encounterHunter Gideon DO Work Phone: Internal MedicineStart: 09-12-2023 End: 17-07-5796kgtzxmhlbrJBXDCW GIDEONFacility:[facility] HospitalStart: 09-12-2023 End: 25-31-2077Mtffar outpatient new 20 minutesHunter Gideon DO Work Phone: Internal MedicineComment on above:Crohn's disease of small intestine with other complication (HCC) (Primary Dx); Chronic hepatitis C without hepatic coma (HCC)Start: 11-11-2022 End: 30-41-5901Wdxvrtclb department patient visitAR Chetan Rojas ([facility]) Work Phone: [facility] RoomStart: 11-01-2022 End: 63-14-2654kbnzfomhdbHW DOCTOR MISCFacility:X6Tavvo: 07-23-2022 End: 20-63-2259kcoffrtjwcVX DOCTOR MISCFacility:R7Cvgvv: 05-15-2022 End: 03-86-5321nofrbptmhaRQ DOCTOR MISCFacility:P4Scovp: 06-45-2581Wdhend Only Fernie Hollingsworth DO Work Phone: OrthopaedicsComment on above:Hand injury, right, initial encounter (Primary Dx)Start: 02-07-2022 End: 27-14-4283jvlrhrpcesEoocfj Olexa Other [employer] Other Start: 26-94-8277Skcxrn follow up visit related to original pxThomas OlexaFPG [facility] OrthopedicsStart: 01-10-2022 End: 41-94-4021waxrumvmrvZfydsy Olexa Other [employer] Other Start: 92-28-9671Ybwxdy follow up visit related to original pxThomas OlexaFPG [facility] OrthopedicsStart: 12-31-2021 End: 67-15-8738uirxtyeeyxQlyjzb Olexa Other [employer] Other Start: 63-13-1409Cymjirocl encounterThomas OlexaFPG [facility] OrthopedicsStart: 12-18-2021 End: 74-89-7121okmhcewrehKlfmvi Olexa Other [employer] Other Start: 91-78-9888Imdceqdlb encounterThomas OlexaFPG [facility] OrthopedicsStart: 12-12-2021 End: 14-39-5258qkpnhxjsqtRA DOCTOR MISCFacility:J0Hnrjm: 75-68-7825Nwnyrh outpatient new 45 minutesThomas OlexaFPG [facility] OrthopedicsStart: 05-17-2018 End: 84-56-4821Sjwekmacy department patient visitEMERGENCY PHYSICIAN Facility:[facility]Start[facility] 2018 End: 00-74-5906Vmwhsgn encounter procedurePHYSICIAN [facility] Start: 2018 End: 91-07-2015Rwpkzi/outpatient visit, new, level 3David Thuan Puente Work Phone: [facility] [place]Start: 11-21-2017 End: 17-64-4214Imndtqrek department patient visitPAUL FRANCISCO RODRIGUEZSt. Luke's McCalltart: 11-21-2017 End: 95-70-4539Uiyqqpiqz department patient visitPaul Fracnisco Rodriguez Work Phone: [facility] Emergency Department Procedures DateProcedureProcedure DetailPerforming ClinicianStart: 57-52-1719Apiuokjs screenMAX PAVLOCKComment on above:Order Comment: Specimen Type: BLOOD SPECIMENOrdering Facility: [facility] Address:[address] [place], [place] [address]Performed By: #### [id number] ####CC MAIN BLOOD BANKCLIA [id number] [facility] [id number] [place] [address] [facility] AMERICAStart: 25-03-9884Jzt routine ecg w/least 12 lds i&r onlyCcf Provider Start: 99-26-1671Ia abdomen & pelvis w/contrast Ronak Lopez MD Work Phone: Start: 40-70-0250Jfgyo elastography w/o imag w/i&r Reyna Anton 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.[employer] Work Phone: Start: 06-51-0402Vpjad elastography w/o imag w/i&r Reyna Anton 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.[employer] Work Phone: Start: 03-21-2010H/O: ileostomyS/P ileostomyAndrew Matko DO Work Phone: [phone]-CqO-2, Influenza & RSV (PCR)MD Chetan Rojas ([facility]) Work Phone: Plan of Treatment DateCare ActivityDetailAuthorStart: 08-29-5528Pwpbcoxfj B Vaccine (1 of 3 - Risk 3-dose series)Hepatitis B Vaccine (1 of 3 - Risk 3-dose series)[facility] Start: 11-15-2024 End: 70-21-3511Juogqqw encounter cfwipwyam41/16/2024 9:00 AM EST Office Visit Gastroenterology [address] [address] Reyna Anton APRN.[employer] WHE[employer]DER [address] [place] [address] Chronic Hep CGastroenterologyComment on above:Chronic Hep CStart: 11-15-2024 End: 38-82-0418ejxpmconvx72/16/2024 8:40 AM EST Procedure Gastroenterology [address] [address] Elevated liver enzymes [R74.8]GastroenterologyComment on above:Elevated liver enzymes [R74.8]Start: 08-17-2024 End: 55-00-8537Pjftvi-up gpielwmoo06/17/2024 4:30 PM EDT [facility] Gastroenterology [address] [address] Rusty Lopez MD [address] [place] [address] Follow upGastroenterologyComment on above:Follow upStart: 10-74-0441Lhtep-19 Vaccine ( season)Covid-19 Vaccine ( season)[facility]ertart: 40-53-7620Zffwjhkxd vaccinationMorrow County Hospital Start: 07-19-2024 End: 53-90-4989Febbqpt encounter iyelhwgyp93/19/2024 8:00 AM EDT Office Visit Pain Management [address] [place] [address] Charleen Silver MD [address] [place] [address] abd painPain ManagementComment on above:abd painStart: 06-30-2024 End: 08-09-7716Ptdwyaydy to same day surgery yxnklm6706/30/2024 11:45 AM EDT - 06/30/2024 2:15 PM EDT Surgery Admitting [address] [place] [address] Adolfo Ballard MD [address] [place] [address] IMPLANT MESH/PROSTHESIS VENTRAL HERNIA REPAIR GREATER THAN 10cmAdmittingComment on above:IMPLANT MESH/PROSTHESIS VENTRAL HERNIA REPAIR GREATER THAN 10cmStart: 06-30-2024 End: 52-18-0808HGRNTYI MESH/PROSTHESIS VENTRAL HERNIA REPAIR GREATER THAN 10cm IMPLANT MESH/PROSTHESIS VENTRAL HERNIA REPAIR GREATER THAN 10cm Preoperative examination Ventral hernia without obstruction or gangrene 06/30/2024 11:45 AM EDTMC MAIN PAVILIONStart: 06-30-2024 End: 24-21-9840Lofpozdxn to same day surgery ayfybq8306/30/2024 10:12 AM EDT - 06/30/2024 12:42 PM EDT Surgery Admitting [address] [place] [address] Adolfo Ballard MD [address] [place] [address] IMPLANT MESH/PROSTHESIS VENTRAL HERNIA REPAIR GREATER THAN 10cmAdmittingComment on above:IMPLANT MESH/PROSTHESIS VENTRAL HERNIA REPAIR GREATER THAN 10cmStart: 06-30-2024 End: 59-29-7462Knjxzwkyze fihhnoceiaoa86/31/2024 10:12 AM EDT Anesthesia Event Admitting [address] [place] [address] Bing Cali MD [address] [place] [address] AdmittingStart: 06-30-2024 End: 74-99-8417HSGXJOR MESH/PROSTHESIS VENTRAL HERNIA REPAIR GREATER THAN 10cm IMPLANT MESH/PROSTHESIS VENTRAL HERNIA REPAIR GREATER THAN 10cm Preoperative examination Ventral hernia without obstruction or gangrene 06/30/2024 10:12 [facility] PAVILIONStart: 36-88-8828Zpurzlpgve hospital visit by physician AdmittingComment on above:Preoperative examination [Z01.818]Start: 06-29-2024 End: 89-12-2608IIXY AND SCREEN,30 [facility] Work Phone: Comment on above:Expected: 06/29/2024, Expires: 09/28/2024Start: 06-29-2024 End: 51-42-0898Bdodtfvysy wkuxwcacufqz26/30/2024 12:30 PM EDT PAT Pre Anesthesia [address] [place] [address] PACC, EKG, Labs, Admit InterviewPre AnesthesiaComment on above:PACC, EKG, Labs, Admit InterviewStart: 06-08-2024 End: 29-83-3806eseydpzkbn05/09/2024 10:00 AM EDT [facility] Gastroenterology [address] [phone] Rusty Lopez MD [address] [place] [address] review resultsGastroenterologyComment on above:review resultsStart: 06-07-2024 End: 28-65-6384oCXD in Platelet poor plasma by Coagulation assayACTIVATED PARTIAL THROMBOPLASTIN TIME Lab Routine Preoperative examination Ventral hernia without obstruction or gangrene Expected: 06/07/2024, Expires: 08/01/2024 [facility] HospitalComment on above:Expected: 06/07/2024, Expires: 08/01/2024Start: 06-07-2024 End: 73-37-8705YOY W Auto Differential panel - BloodCOMPLETE BLOOD COUNT AND DIFFERENTIAL Lab Routine Preoperative examination Ventral hernia without ob struction or gangrene Expected: 06/07/2024, Expires: 08/[facility] Comment on above:Expected: 06/07/2024, Expires: 08/01/2024Start: 06-07-2024 End: 68-59-6182Hvssecufrftom metabolic 2000 panel - Serum or PlasmaCOMPREHENSIVE METABOLIC PANEL Lab Routine Preoperative examination Ventral hernia without obstruction or gangrene Expected: 06/07/2024, Expires: 08/01/2024[facility] ClinicComment on above:Expected: 06/07/2024, Expires: 08/01/2024Start: 06-07-2024 End: 42-76-9261ALFGFEK BLOOD TYPECONFIRM BLOOD TYPE Blood Bank Routine Preoperative examination Ventral hernia without obstruction or gangrene Expected: 06/07/2024, Expires: 08/01/2024[facility] ClinicComment on above: Expected: 06/07/2024, Expires: 08/01/2024Start: 06-07-2024 End: 94-68-6197EI panel - Platelet poor plasma by Coagulation assayPROTHROMBIN TIME Lab Routine Preoperative examination Ventral hernia without obstruction or gangrene Expected: 06/07/2024, Expires: 08/01/2024[facility] ClinicComment on above:Expected: 06/07/2024, Expires: 08/01/2024Start: 05-21-2024 End: 62-79-6991Qokbvqg encounter procedureRadiology Ct ScanComment on above:CT ENTEROGRAPHY W IVCONStart: 05-14-2024 End: 25-31-1016Duhhz 1 antitrypsin [Mass/volume] in Serum or Plasma NSGNC-0-XOKHMQENQBK Lab Routine Elevated liver enzymes Fatty liver Expected: 05/14/2024, Expires: 08/13/2024[facility] ClinicComment on above:Expected: 05/14/2024, Expires: 08/13/2024Start: 05-14-2024 End: 08-13-2024 reactive protein [Mass/volume] in Serum or PlasmaC-REACTIVE PROTEIN Lab Routine Crohn's disease of small and large intestines with complication (HCC) Expected: 05/14/2024, Expires: 08/13/2024[facility] Comment on above:Expected: 05/14/2024, Expires: 08/13/2024Start: 05-14-2024 End: 21-09-3603VDE panel - Blood by Automated countCOMPLETE BLOOD COUNT Lab Routine Crohn's disease of small and large intestines with complication (HCC) Expected: 05/14/2024, Expires: 08/13/2024[facility] Work Phone: Comment on above:Expected: 05/14/2024, Expires: 08/13/2024Start: 05-14-2024 End: 96-63-2432Oljsnrzejvzsg [Mass/volume] in Serum or PlasmaCERULOPLASMIN Lab Routine Elevated liver enzymes Fatty liver Expected: 05/14/2024, Expires: 08/13/2024[facility] ClinicComment on above:Expected: 05/14/2024, Expires: 08/13/2024Start: 05-14-2024 End: 31-38-0945Vacrrez hepatitis differentiation between hepatitis B and C virus panel - Serum or PlasmaHEP REMOTE PANEL BL Lab Routine Crohn's disease of small and large intestines with complication (HCC) Expected: 05/14/2024, Expires: 08/13/2024[facility] ClinicComment on above:Expected: 05/14/2024, Expires: 08/13/2024Start: 05-14-2024 End: 97-17-8187Gfrilridknhce metabolic 2000 panel - Serum or PlasmaCOMPREHENSIVE METABOLIC PANEL Lab Routine Crohn's disease of small and large intestines with complication (HCC) Expected: 05/14/2024, Expires: 08/13/2024[facility] Comment on above:Expected: 05/14/2024, Expires: 08/13/2024Start: 05-14-2024 End: 61-05-6943IQVJTKZZNQ BLDCREATININE BLD Lab Routine Crohn's disease of small and large intestines with complication (HCC) Expected: 05/14/2024, Expires: 08/13/2024[facility] ClinicComment on above:Expected: 05/14/2024, Expires: 08/13/2024Start: 05-14-2024 End: 49-75-1790HVZ BE ANTIBODYHEP BE ANTIBODY Lab Routine Elevated liver enzymes Fatty liver Expected: 05/14/2024, Expires: 08/13/2024[facility] ClinicComment on above:Expected: 05/14/2024, Expires: 08/13/2024Start: 05-14-2024 End: 06-64-1683TWA BE ANTIGENHEP BE ANTIGEN Lab Routine Elevated liver enzymes Fatty liver Expected: 05/14/2024, Expires: 08/13/2024[facility] ClinicComment on above:Expected: 05/14/2024, Expires: 08/13/2024Start: 05-14-2024 End: 15-62-5869Seedpbdxe B virus DNA [Units/volume] in SerumHEPATITIS B VIRUS DNA QUANTIFICATION, PLASMA/SERUM Lab Routine Elevated liver enzymes Fatty liver Expected: 05/14/2024, Expires: 08/13/2024[facility] ClinicComment on above: Expected: 05/14/2024, Expires: 08/13/2024Start: 05-14-2024 End: 78-15-1565Zlofe kidney microsomal Ab [Titer] in Serum by Immunofluorescence LKM AB Lab Routine Elevated liver enzymes Fatty liver Expected: 05/14/2024, Expires: 08/13/2024[facility] ClinicComment on above:Expected: 05/14/2024, Expires: 08/13/2024Start: 05-14-2024 End: 23-76-8971Jpdgkafboboi Ab [Presence] in Serum by Immunofluorescence MITOCHONDRIAL M2 IGG SERUM Lab Routine Elevated liver enzymes Fatty liver Expected: 05/14/2024, Expires: 08/13/2024[facility] ClinicComment on above: Expected: 05/14/2024, Expires: 08/13/2024Start: 05-14-2024 End: 49-41-8045Sjbyrrb Ab [Presence] in Serum by ImmunoassayANA BLOOD Lab Routine Elevated liver enzymes Fatty liver Expected: 05/14/2024, Expires: 08/13/2024[facility] Work Phone: Comment on above:Expected: 05/14/2024, Expires: 08/13/2024Start: 05-14-2024 End: 16-26-2142ZQ panel - Platelet poor plasma by Coagulation assayPROTHROMBIN TIME Lab Routine Elevated liver enzymes Fatty liver Expected: 05/14/2024, Expires: 08/13/2024[facility] ClinicComment on above:Expected: 05/14/2024, Expires: 08/13/2024Start: 05-14-2024 End: 28-87-7493Gpacpa muscle Ab [Presence] in SerumSMOOTH MUSCLE AB SCR Lab Routine Elevated liver enzymes Fatty liver Expected: 05/14/2024, Expires: 0 08/13/2024[facility] ClinicComment on above:Expected: 05/14/2024, Expires: 08/13/2024Start: 52-21-8322Fmhiydohqk Health ScreeningBehavioral Health ScreeningCommunity Regional Medical Centertart: 10-18-2023 End: 65-92-2060Byhiuue function 2000 panel - Serum or PlasmaHEPATIC FUNCTION PNL Lab Routine Chronic hepatitis C without hepatic coma (HCC) Elevated liver enzym es Expected: 10/18/2023, Expires: 01/17/2024[facility] Work Phone: Comment on above:Expected: 10/18/2023, Expires: 01/17/2024Start: 09-17-2023 End: 85-78-0721Ishrp 1 antitrypsin [Mass/volume] in Serum or Plasma RPLTW-2-QGXLEFLHJ BL Lab Routine Chronic hepatitis C without hepatic coma (HCC) Elevated liver enzymes Expected: 09/17/2023, Expires: 12/17/2023[facility] Work Phone: Comment on above:Expected: 09/17/2023, Expires: 12/17/2023Start: 09-17-2023 End: 69-42-3905Raotyugrsnfjn [Mass/volume] in Serum or PlasmaCERULOPLASMIN BLD Lab Routine Chronic hepatitis C without hepatic coma (HCC) Elevated liver enzymesExpected: 09/17/2023, Expires: 12/17/2023[facility] Work Phone: Comment on above:Expected: 09/17/2023, Expires: 12/17/2023Start: 09-17-2023 End: 31-29-3126Bexbpfbg [Mass/volume] in Serum or PlasmaFERRITIN BLD Lab Routine Chronic hepatitis C without hepatic coma (HCC) Elevated liver enzymes Expected: 09/17/2023, Expires: 12/17/2023[facility] Work Phone: Comment on above:Expected: 09/17/2023, Expires: 12/17/2023Start: 09-17-2023 End: 36-13-7844Xusbj glutamyl transferase [Enzymatic activity/volume] in Serum or PlasmaGGT BLD Lab Routine Elevated liver enzymes Expected: 09/17/2023, Expires: 12/17/2023[facility] Work Phone: Comment on above:Expected: 09/17/2023, Expires: 12/17/2023Start: 09-17-2023 End: 42-33-2290Mtzaycccic A1c in BloodHGB A1C Lab Routine Chronic hepatitis C without hepatic coma (HCC) Elevated liver enzymes Expected:09/17/2023, Expires: 12/17/2023[facility] Work Phone: Comment on above:Expected: 09/17/2023, Expires: 12/17/2023Start: 09-17-2023 End: 30-84-9005ARMHVHQER A ANTIBODY, IGGHEPATITIS A ANTIBODY, IGG Lab Routine Chronic hepatitis C without hepatic coma (HCC) Elevated liverenzymes Expected: 09/17/2023, Expires: 12/17/2023[facility] Work Phone: Comment on above:Expected: 09/17/2023, Expires: 12/17/2023Start: 09-17-2023 End: 91-65-2820Fgmlpmofy B virus core Ab [Presence] in SerumHEP B CORE AB TOTAL Lab Routine Chronic hepatitis C without hepatic coma (HCC) Elevated liver enzyme s Expected: 09/17/2023, Expires: 12/17/2023[facility] Work Phone: Comment on above:Expected: 09/17/2023, Expires: 12/17/2023Start: 09-17-2023 End: 84-11-4653Gfdzxoppm B virus surface Ab [Presence] in SerumHEP B SURF AB Lab Routine Chronic hepatitis C without hepatic coma (HCC) Elevated liver enzymes Expected: 09/17/2023, Expires: 12/17/2023[facility] Work Phone: Comment on above:Expected: 09/17/2023, Expires: 12/17/2023Start: 09-17-2023 End: 47-64-5832EQQ gene targeted mutation analysis in Blood or Tissue by Molecular genetics methodHFE (HEMOCHROMATOSIS) Lab Routine Chronic hepatitis C without hepatic coma (HCC) Elevated liver enzymes Expected: 09/17/2023, Expires: 12/17/2023[facility] Work Phone: Comment on above:Expected: 09/17/2023, Expires: 12/17/2023Start: 09-17-2023 End: 58-35-4767RqE [Mass/volume] in Serum or PlasmaIGG Lab Routine Elevated liver enzymes Expected: 09/17/2023, Expires: 12/17/2023[facility] Work Phone: Comment on above:Expected: 09/17/2023, Expires: 12/17/2023Start: 09-17-2023 End: 72-18-5032BuP [Mass/volume] in Serum or PlasmaIGM Lab Routine Elevated liver enzymes Expected: 09/17/2023, Expires: 12/17/2023[facility] Work Phone: Comment on above:Expected: 09/17/2023, Expires: 12/17/2023Start: 09-17-2023 End: 91-19-7674Hhjc and Iron binding capacity panel - Serum or PlasmaIRON + TIBC Lab Routine Chronic hepatitis C without hepatic coma (HCC) Elevated liver enzymes Expected: 09/17/2023, Expires: 12/17/2023[facility] Work Phone: Comment on above:Expected: 09/17/2023, Expires: 12/17/2023Start: 09-17-2023 End: 16-85-9376Mzbvh 1996 panel - Serum or PlasmaLIPID PANEL BASIC Lab Routine Chronic hepatitis C without hepatic coma (HCC) Elevated liver enzymesExpected: 09/17/2023, Expires: 12/17/2023[facility] Work Phone: Comment on above:Expected: 09/17/2023, Expires: 12/17/2023Start: 09-17-2023 End: 51-84-8375Ucchzyqlsrnm Ab [Presence] in Serum by Immunofluorescence MITOCHONDRIAL M2 IGG SERUM Lab Routine Chronic hepatitis C without hepatic coma (HCC) Elevated liver enzymes Expected: 09/17/2023, Expires: 12/17/2023[facility] Work Phone: Commxrx on above:Expected: 09/17/2023, Expires: 12/17/2023Start: 09-17-2023 End: 15-07-9475Vzeavtk Ab [Presence] in Serum by ImmunoassayANA BLOOD Lab Routine Chronic hepatitis C without hepatic coma (HCC) Elevated liver enzymes Expected: 09/17/2023, Expires: 12/17/2023[facility] Work Phone: Comment on above:Expected: 09/17/2023, Expires: 12/17/2023Start: 09-17-2023 End: 85-40-4619Diqjyl muscle Ab [Presence] in SerumSMOOTH MUSCLE AB SCR Lab Routine Chronic hepatitis C without hepatic coma (HCC) Elevated liver enzymes Expected: 09/17/2023, Expires: 12/17/2023[facility] Work Phone: Comment on above:Expected: 09/17/2023, Expires: 12/17/2023Start: 09-12-2023 End: 93-64-1752Fwjut hepatitis 2000 panel - [facility] Work Phone: Comfdlk on above:Expected: 09/12/2023, Expires: 11/12/2023Start: 09-12-2023 End: 00-11-6361Rmrxltcty B virus core IgM Ab [Presence] in [facility] Work Phone: Comment on above:Expected: 09/12/2023, Expires: 11/12/2023Start: 09-12-2023 End: 88-26-0271Nkizvvekd B virus surface Ab [Presence] in [facility] Work Phone: Comtvar on above:Expected: 09/12/2023, Expires: 11/12/2023Start: 09-12-2023 End: 88-25-1618Aqmtpkxha B virus surface Ag [Presence] in [facility] Work Phone: Comment on above:Expected: 09/12/2023, Expires: 11/12/2023Start: 09-12-2023 End: 13-41-0321Ezhcercph C virus RNA [Units/volume] (viral load) in Serum or Plasma by GERMÁN with probe detectionWilson Health Work Phone: Comment on above:Expected: 09/12/2023, Expires: 11/12/2023Start: 09-12-2023 End: 91-92-6742CXG 1+2 Ab [Presence] in Serum or Plasma by ImmunoassayWilson Health Work Phone: Comment on above:Expected: 09/12/2023, Expires: 11/12/2023Start: 35-46-3405Veatb-19 Vaccine ( season)Covid-19 Vaccine ( season)[facility]: 11-90-0437Phyzyocvb vaccination Influenza Vaccine (#1)[facility]: 39-46-5132Afkwjxryon Assessment Depression AssessmentCommunity Regional Medical Centertart: 94-88-5656Pkfaprmon vaccination INFLUENZA (Season Ended)[facility]: 38-58-3746Lfkeduqrh vaccination SEQUENTIAL INFLUENZA VACCINE (Season Ended)[facility]: 40-65-3861Yxzhmczwb vaccinationSEQUENTIAL INFLUENZA VACCINE (#1)[facility] Work Phone: Start: 28-20-2246Xaxezijzn A Vaccine (1 of 2 - Risk 2- dose series)Hepatitis A Vaccine (1 of 2 - Risk 2-dose series)[facility] Start: 36-68-6935HRNBXNPOO B (1 of 3 - Risk 3-dose series)HEPATITIS B (1 of 3 - Risk 3-dose series)[facility]: 96-89-7511Xjxfppyzo B Vaccine (1 of 3 - 19+ 3-dose series)Hepatitis B Vaccine (1 of 3 - 19+ 3-dose series)[facility]: 56-45-9481Czcci microalbumin profileCleAvita Health Systemtart: 73-21-9601Ksowvwemmo ScreeningDepression ScreeningCleAvita Health Systemtart: 36-41-3176UKY (1 of 2 - Risk 2-dose series)MMR (1 of 2 - Risk 2-dose series) [facility]: 01-14-1754VUV Vaccine (1 of 2 - Risk 2-dose series)MMR Vaccine (1 of 2 - Risk 2-dose series)[facility]: 75-55-4288Gupdg depression screening assessmentDEPRESSION SCREENINGCommunity [facility] Medical Centertart: 16-65-4250Nwjirxcwpwhkt B Vaccine: Consider Based On Risk (1 of 4 - Increased Risk)Meningococcal B Vaccine: Consider Based On Risk (1 of 4 - Increased Risk) [facility]: 53-92-0659HYMJBQDDHMJRA B: Consider based on risk (1 of 4 - Increased Risk Bexsero 2-dose series)MENINGOCOCCAL B: Consider based on risk (1 of 4 - Increased Risk Bexsero 2-dose series)[facility]: 1997 PNEUMOCOCCAL (1 - PCV)PNEUMOCOCCAL (1 - PCV)[facility]: 1997 Pneumococcal vaccinationCommunity Regional Medical Centertart: 71-38-7520NAUSF-19 VACCINE (#1) COVID-19 VACCINE (#1)[facility]: 54-86-9798LQKMNKECO A (1 of 2 - Risk 2-dose series)HEPATITIS A (1 of 2 - Risk 2-dose series)[facility]: 06-41-9936Bqtfk-19 Vaccine (#1)Covid-19 Vaccine (#1)[facility]: 25-93-3841Mvpbcki vaccinationTETANUS EVERY 10 YRWilson [facility] Work Phone: End: 75-19-5529Mj abdomen & pelvis w/contrast materialCT ENTEROGRAPHY W IVCON Radiology Routine Crohn's disease of small and large intestines with complic ation (HCC) 1 Occurrences starting 09/29/2023 until [facility] Work Phone: Comment on above:1 Occurrences starting 09/29/2023 until 10/28/2024 End: 66-28-3828MS Small bowel W contrast PO and W contrast IVCT ENTEROGRAPHY W IVCON Radiology Routine Crohn's disease of small and large intestines with complication (HCC) 1 Occurrences starting 05/14/2024 until 5C[facility] ClinicComment on above:1 Occurrences starting 05/14/2024 until 06/13/2025 End: 80-87-5963HHZ COMPLETEECG COMPLETE ECG Routine Preoperative examination Ventral hernia without obstruction or gangrene 1 Occurrences starting 05/31/2024 until 5C[facility] ClinicComment on above:1 Occurrences starting 05/31/2024 until 05/31/2025ECG COMPLETEECG COMPLETE ECG 06/29/2024 12:32 PM EDT [facility] HealthIMPLANT MESH/PROSTHESIS VENTRAL HERNIA REPAIR GREATER THAN 10cmIMPLANT MESH/PROSTHESIS VENTRAL HERNIA REPAIR GREATER THAN 10cm Preoperative examination Ventral hernia without obstruction or gangreneCleveland ClinicLiver ultrasound attenuation by transient elastographyDDI VIBRATION CONTROLLED TRANSIENT ELASTOGRAPHY (VCTE) Endoscopy Routine Elevated liver enzymes Fatty liver Ordered: 05/14/2024[address] HospitalComment on above:Ordered: 05/14/2024atient EducationProne Position [facility] COVID-[facility] Work Phone: [facility]Green [facility] Work Phone: REFER FOR ADMIT INTERVIEWREFER FOR ADMIT INTERVIEW Procedures Routine Preoperative examination Ventral hernia without obstruction or gangrene Ordered: 05/31/2024[facility] Work Phone: Comment on above:Ordered: 05/31/2024 End: 33-00-9938OP ABD RIGHT UPPER QUADRANTUS ABD RIGHT UPPER QUADRANT Radiology Routine Chronic hepatitis C without hepatic coma (HCC) 1 Occurrences starting 09/12/[address] [place] [address] Work Phone: Comment on above:1 Occurrences starting 09/12/2023 until 10/11/2024 End: 24-72-9642NR HAND GENERAL 3V PA/LAT/OBL RIGHTXR HAND GENERAL 3V PA/LAT/OBL RIGHT Radiology Routine Hand injury, right, initial encounter 1 Occurrences starting 04/30/[address] [place] [address] Work Phone: Comment on above:1 Occurrences starting 04/30/2022 until 05/30/2023[facility] Immunizations Immunization DateImmunizationNotesCare OtzpftbyCcvepvsl95-64-8134CyoxournLzqsrb [employer]lex[employer] Other [employer] Other [id number] Olexa Other [employer] Other NEGATED: Highlighted row has not occurred!03-24-2021 tetanus toxoid, reduced diphtheria toxoid, and acellular pertussis vaccine, adsorbedMD Chetan Novi ([facility]) Work Phone: [facility] HospitalNEGATED: Highlighted row has not occurred!98-73-7096btrexys toxoid, reduced diphtheria toxoid, and acellular pertussis vaccine, adsorbedMD Chetan Novi ([facility]) Work Phone: [facility] Payers DatePayer CategoryPayerPolicy [id number]-[id number] 2023Medicaid[place] MEDICAID [place] MED[place]ID [id number] 2023-Present [phone] [place] [address] [place] [address] [id number] 2021Medicaidid [place] MEDICAID [id number] 2021-Present [phone] [place] [address] [id number] [id number] 2..[id number] 2.16.840.[id number] 2.16.840.1.629007.3.57[id number] 2.16.840.1.395458.3.57[id number] 2.16.840.1.093144.3.579.2.593 [id number] 2.16.840.1.512775.3.579.2.531UnknownAC FREETEXT PAYOR [facility] FREETEXT PAYOR [id number] Effective for all dates [address] [place] [address] Other [id number]'s [id number] Social History DateTypeDetailFacilityStart: 2018 End: 06-50-3700Rufmlmh smoking status NHISCurrent every day smokerMorrow County HospitalHistory of tobacco useCigarette SmokerOhioHealth Work Phone: Start: 2018 End: 21-52-8755Tqwlcepxgc smoked current (pack per day) - ReportedMorrow County Hospital Work Phone: Start: 58-44-1819Dte Assigned At BirthNot on file [facility] Work Phone: Start: 10-08-2021 End: 32-81-3353Ydimamg intakeCurrent drinker of alcohol (finding)[facility]: 12-19-2022 End: 00-59-8212Lln Assigned At BirthMorrow County Hospital Work Phone: Start: 89-37-2115Ueyyirr smoking status NHISSmoker (finding)[facility]: 95-48-4321Xea Assigned At MaleCleveland Clinic Mentor Hospitaltart: 43-72-7866Flbewjn use and exposure Smokeless tobacco non-userMorrow County HospitalNational Score (1-100), lower number is lower ktjp92VbawkmoefCommunity Regional Medical Centertart: 99-56-8661Qultcx identityIdentifies as male gender (finding)[facility]: 53-58-9087Vjjqkle Comment4-5 shots per dayLicking Memorial Hospital the electric, gas, oil, or water company threatened to shut off services in your home in past 12MoNoClWyandot Memorial Hospital Work Phone: (I/We) worried whether (my/our) food would run out before (I/we) got money to buy more.Never trueMorrow County Hospital Medical Equipment Procedure CodeEquipment CodeEquipment Original TextEquipment IdentifierDatesMesh Prolene [place] 02b07pf Surgical Knit Nonabsorbable Nonreactive - [id number]: 06-30-2024 Clinical Notes 09-06-2012 to 08-13-2024 Note Date & ZjrmAdejDlsfgvnq08-15-0030 Telephone encounter Note* Telephone Encounter - Adolfo Ballard MD - 08/13/2024 8:25 AM EDT I called Mr Momin because he continues to send [employer] messages with misinformation. I answered hisquestions. I explained that he did not have [...] him. He thanked me for the call. [facility]09-13-2024 Miscellaneous Notes* Telephone Encounter - Adolfo Ballard MD - 08/13/2024 8:25 AM EDT I called Mr Momin because he continues to send [employer] messages with misinformation. I answered hisquestions. I explained that he did not have [...] me for the call. documented in this encounterMorrow County Hospital08-19-2024 NoteProtestant Deaconess Hospital08-19-2024 History of Present illness Narrative* Adolfo Ballard MD - 07/19/2024 11:43 AM EDT Angelita Momin is here for a postoperative visit following open ventral hernia repair with mesh and lysis of adhesions. His postoperative course was complicated by his pain management and withdrawal. He was given a Dilaudid taper consistent with the recommendations from the acute care pain managementteam. I continued his taper for an additional [...] Suboxone if that is what he needs. Scotid threaten to use street medications if I did not write him a prescription for opioids. I reiterated the recommendation for Suboxone as well as the recommendation for Cymbalta from the [employer]. He does not want to take any his medications and prefers opioids. I do not write cassandra prescription for any opioids today. I continue with my recommendation that he should resume his Suboxone consistent with pain management recommendations. He can follow-up as needed. documented in this encounterMorrow County Hospital08-19-2024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 Additional Instructions Quarantine per CDC guidelines Increase oral fluids Tylenol or Motrin for fever pain body aches May take nofa-ref-lcgeigk cough and cold medication as needed Return to the ER for respiratory distress vomiting severe chest pain or any other concerns[facility] Work Phone: Reason for referral (narrative)* Diagnostic Procedure Only (Routine) - Pending ReviewSpecialtyDiagnoses / ProceduresReferred By ContactReferred To ContactXR IMAGING Diagnoses Hand injury, right, initial encounter Procedures XR HAND GENERAL 3V PA/LAT/OBL RIGHT RADEX HAND MINIMUM 3 VIEWS Fernie Hollingsworth, [address] [place] [address] Xr Imaging Referral IDStatusReasonStart DateExpiration DateVisits RequestedVisits [id number] Review Auto-Generated Referral / [facility] for referral (narrative)* Diagnostic Procedure Only (Routine) - Pending ReviewSpecialtyDiagnoses / ProceduresReferred By Contact Referred To ContactUS IMAGING Diagnoses Chronic hepatitis C without hepatic coma (HCC) Procedures US ABD RIGHT UPPER QUADRANT US ABDOMINAL REAL TIME W/[place] [address] [place] [address] [place] [address] Referral IDStatusReasonStart DateExpiration DateVisits RequestedVisits [id number] Review Auto-Generated Referral / * Consult, Test, Treat (Routine) - AuthorizedSpecialtyDiagnoses / Procedures Referred By ContactReferred To ContactGastroenterology Diagnoses Chronic hepatitis C without hepatic coma (HCC) Crohn's disease of small intestine with other complication (HCC) Procedures CONSULT TO GASTROENTEROLOGY OFFICE/OUTPATIENT NEW HIGH MDM 60-[place] [address] [place] [address] Referral IDStatusReasonStart DateExpiration DateVisits RequestedVisits [id number] PCP Requested Referral / [facility] for referral (narrative)* Outpatient Procedure (Routine) - ClosedSpecialtyDiagnoses / ProceduresReferred By ContactReferred To Contact [facility] Diagnoses Chronic hepatitis C without hepatic coma (HCC) Elevated liver enzymes Procedures DDI VIBRATION CONTROLLED TRANSIENT ELASTOGRAPHY (VCTE) LIVER ELASTOGRAPHY W/O IMAG W/I&R Reyna Anton, KATHIA.DIAMOND WHEEL MOLDER [address] [place] [address] [place] [address] Referral IDStatusReasonStart DateExpiration DateVisits RequestedVisits [id number] Auto-Generated Referral * Consult, Test, Treat (Routine) - AuthorizedSpecialtyDiagnoses / Procedures Referred By ContactReferred To [facility] Diagnoses Crohn's disease of small intestine with other complication (HCC) Procedures CONSULT TO GASTROENTEROLOGY OFFICE/OUTPATIENT NEW HIGH MDM 60-74 MINUTES Reyna Anton, 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.DIAMOND WHEEL MOLDER [address] [place] [address] Referral IDStatusReasonStart DateExpiration DateVisits RequestedVisits [id number] PCP Requested Referral [facility] for referral (narrative)* Outpatient Procedure (Routine) - AuthorizedSpecialtyDiagnoses / ProceduresReferred By ContactReferred To [facility] Diagnoses Elevated liver enzymes Fatty liver Procedures DDI VIBRATION CONTROLLED TRANSIENT ELASTOGRAPHY (VCTE) LIVER ELASTOGRAPHY W/O IMAG W/I&R Reyna Anton, 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.DIAMOND WHEEL MOLDER [address] [place] [address] [place] [id number] Referral IDStatusReasonStart DateExpiration DateVisits RequestedVisits [id number] Auto-Generated Referral * Consult, Test, Treat (Routine) - AuthorizedSpecialtyDiagnoses / Procedures Referred By ContactReferred To ContactGeneral Surgery Diagnoses Hernia Procedures CONSULT TO GENERAL SURGERY OFFICE/OUTPATIENT [facility] MDM 60 MINUTES Reyna Anton APRN.CNP [address] [place] [id number] Referral IDStatusReasonStart DateExpiration DateVisits RequestedVisits [id number] PCP Requested Ref[facility] Narrative* Outpatient Procedure (Routine) - ClosedSpecialtyDiagnoses / ProceduresReferred By ContactReferred To Contact [facility] Diagnoses Chronic hepatitis C without hepatic coma (HCC) Elevated liver enzymes Procedures DDI VIBRATION CONTROLLED TRANSIENT ELASTOGRAPHY (VCTE) LIVER ELASTOGRAPHY W/O IMAG W/I&R Reyna Anton APRN.LIZET [address] [place] [id number] [facility] [address] [place] [phone] Referral IDStatusReasonStart DateExpiration DateVisits RequestedVisits [id number] Auto-Generated Referral [facility] Instructions * Patient Instructions - Adolfo [...] heating pad on your skin. Take an opzs-buk-mgkythp pain medicine, such as acetaminophen (Tylenol), ibuprofen [...] Log into your personal health record on [email or web address] and enter C927 in the Education box to learn more about Earache: Care Instructions. Current as of: April 11, 2017 Content Version: 11.6 5464-6137 [employer]. Care instructions adapted under license by your healthcare professional. If you have questions about a medical condition or this instruction, always ask your healthcare professional. [employer] disclaims any warranty or liability for your use of this information. in this encounter Assessments DiagnosisAcute otalgia, right - PrimaryDiagnosisSubstance abuse - Primary Other, mixed, or unspecified nondependent drug abuse, unspecified Pain of toe of right foot Summary Purpose Family History No Family History Records Found Relationship Condition Age at Onset Recorded Date/T robby Not Specified No pertinent family history Unknown Relationship Condition Age at Onset Recorded Date/T robby Not Specified No pertinent family history Unknown grandparentDeceasedUnknown Advance Directives No Advanced Directives Records FoundDocuments on File TypeDate RecordedPatient RepresentativeExplanationAdvance Directive(s)Advance Directive(s)10/08/2021 4:57 PMAdvance Directive(s)07/14/2021 11:46 PMAdvance Directive(s)07/11/2021 9:44 AMCode StatusDate ActivatedDate InactivatedComments Full Code07/15/2021 3:11 AM07/17/2021 5:17 PMFull Code Order Discussed With: Patient Advance Directive Response Recorded Date/ Time Advance Directives No December 03, 2017 6:40pm Code StatusDate ActivatedDate InactivatedCommentsFull Code07/15/2021 3:11 AM 07/17/2021 5:17 PMQuestionAnswerCommentsFull Code Order Discussed With:Patient Code StatusDate ActivatedDate InactivatedCommentsFull Code07/15/2021 3:11 AM 07/17/2021 5:17 PMQuestionAnswerCommentsFull Code Order Discussed With:Patient Date ActivatedDate InactivatedComments07/15/2021 3:11 AM07/17/2021 5:17 PMQuestion AnswerCommentsFull Code Order Discussed With:* Patient Date ActivatedDate InactivatedComments07/15/2021 3:11 AM07/17/2021 5:17 PMQuestion AnswerCommentsFull Code Order Discussed With:* Patient Chief Complaint and Reason for Visit Chief Complaint fever Chief Complaint fever,cp-arm numb,hi gh bp Reason for Referral SpecialtyDiagnoses / ProceduresReferred By ContactReferred To ContactRE[facility]AB [facility] Diagnoses Post-operative pain Procedures CONSULT TO PHYSICAL THERAPY PHYSICAL THERAPY EVALUATION HIGH COMPLEX 45 MINS Lena Walters, 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.DIAMOND WHEEL MOLDER [address] [place] [address] [facility] [place] [address] [place] [address] Referral IDStatusReasonStart DateExpiration DateVisits RequestedVisits [id number] Review Auto-Generated Referral /[id number] / ProceduresReferred By ContactReferred To Contact Diagnoses Preoperative examination Ventral hernia without obstruction or gangrene Procedures REFER TO [facility] - PREOPERATIVE OPTIMIZATION OFFICE/OUTPATIENT [facility] 60 MINUTES Renee Pearce, 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.DIAMOND WHEEL MOLDER [address] [place], [place] [phone] Referral IDStatusReasonStart DateExpiration DateVisits RequestedVisits [id number] PCP Requested Referral /[id number] / ProceduresReferred By ContactReferred To ContactWIL[facility] Diagnoses Preoperative examination Ventral hernia without obstruction or gangrene Procedures ECG COMPLETE ECG ROUTINE ECG W/LEAST 12 LDS W/I&R Renee Pearce, 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.DIAMOND WHEEL MOLDER [address] [place], [place] [phone] [facility] [address] [place] [address] Referral IDStatusReasonStart DateExpiration DateVisits RequestedVisits [id number] Review Auto-Generated Referral /[id number] / ProceduresReferred By ContactReferred To Contact Diagnoses Preoperative examination Ventral hernia without obstruction or gangrene Procedures CONSULT TO [facility] OFFICE/OUTPATIENT [facility] 60 MINUTES Renee Pearce, 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.DIAMOND WHEEL MOLDER [address] [place], [place] [phone] Referral IDStatusReasonStart DateExpiration DateVisits RequestedVisits [id number] PCP Requested Referral /[id number] / ProceduresReferred By ContactReferred To ContactCT IMAGING Diagnoses Crohn's disease of small and large intestines with complication (HCC) Procedures CT ENTEROGRAPHY W IVCON CT ABD & PELVIS W/CONTRAST Rusty Lopez MD [address] [place] [address] [facility] [place] [address] Referral IDStatusReasonStart DateExpiration DateVisits RequestedVisits [id number] Review Auto-Generated Referral Additional Source Comments ED Notes - Mike [...] different from the original. ED PROVIDER NOTE [facility] EMERGENCY [facility]PARTMENT NAME: Angelita Momin AGE: 27 y.o. : 1990 VISIT DATE: 11/21/2017 CSN: [id number] PCP: Physician No Chief Complaint Patient presents with I think I was poisoned Toe Pain Dizziness Nausea 27-year-old white male who has history of substance abuse, anxiety, GERD presents with complaints of feeling as though his sister's boyfriend poisoned him. Patient also states that he stubbed his toeyesterday and complains of pain to the right [...] breath. He denies a headache he denies ahead injury. Eyes any neck pain or back pain. He denies suicidal, homicidal ideation. 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 He is not having a headache, there was no head injury. He does not complain of any chest pain or shortness of breath. He has no abdominal pain. In the emergency department patient is alert and oriented 3 in no apparent distress. His pupils areconstricted to about 2-3 mm. He does have [...] are mis-transcribed.) Nataliia Beck PA-C 11/21/17 1022 * ED Attestation Note - Paulo Rodriguez MD - 11/21/2017 7:27 AM EST I personally interviewed and I personally examined [...] evaluation of possible pre-hypertension or hypertension. . * ED Notes - Mike Kwan RN - 11/21/2017 7:21 AM EST Pt arrives with multiple complaints. Pt states that he thinks that he may have been drugged. Pt states that he has been a drug addict for 10 years but has not taken any drugs besides snorting half ofa suboxone. Pt states that he recently got out of residential and has been clean for 3.5 years. [...] reach, regular meal tray ordered for patient. * ED Notes - Rolando Bennett RN - 11/21/2017 6:33 AM EST Bed: 20 Expected date: Expected time: Means of arrival: Comments: Hold for triage * ED Notes - Michelle Viramontes RN - 11/21/2017 6:28 AM EST Attempted IV x2 in triage without success. * ED Triage Notes - Michelle Viramontes RN - 11/21/2017 6:11 AM EST Pt to ED with c/o right great toe pain, sts he stoved it earlier yesterday. Pt then sts that his sisters boyfriend was acting crazy and was getting very mad at him for wanting to leave the house this morning and sts I think he may have tried to poison me . Pt sts as he was getting ready to leavethe apt this morning he got a chemical [...] section and content) DATE CREATED AUTHOR 05/17/2018 [facility] DATE CREATED AUTHOR AUTHOR'S ORGANIZ ATION 09/05/2019 [facility] DATE CREATED AUTHOR AUTHOR'S ORGANIZ ATION 09/05/2019 [facility] DATE CREATED AUTHOR AUTHOR'S ORGANIZ ATION 03/13/2021 [facility] DATE CREATED AUTHOR AUTHOR'S ORGANIZ ATION 04/27/2022 [facility] DATE CREATED AUTHOR AUTHOR'S ORGANIZ ATION 11/03/2022 [facility] DATE CREATED AUTHOR AUTHOR'S ORGANIZ ATION 09/14/2023 [facility] DATE CREATED AUTHOR AUTHOR'S ORGANIZ ATION 02/02/2024 [facility] DATE CREATED AUTHOR AUTHOR'S ORGANIZ ATION 04/11/2024 [facility] DATE CREATED AUTHOR AUTHOR'S ORGANIZ ATION 07/19/2024 [facility] DATE CREATED AUTHOR AUTHOR'S ORGANIZ ATION 08/15/2024 [facility] Source Comments (unrecognize d section and content) In the event this informatio n is protected by the Federal Confidentiality of Alcohol and Drug Abuse Patient Records regulations: The Federal rules restrict any use of the information to criminally investigate or prosecute any alcohol or drug abuse patient.[facility] the event this information is protected by the Federal Confidentiality of Alcohol and Drug Abuse Patient Records regulations: The Federal rules restrict any use of the information to criminally investigate or prosecute any alcohol or drug abuse patient.[facility] HospitalIn the event this information is protected by the Federal Confidentiality of Alcohol and Drug Abuse Patient Records regulations: The Federal rules restrict any use of the information to criminally investigate or prosecute any alcohol or drug abuse patient.[facility] HospitalIn the event this information is protected by the Federal Confidentiality of Alcohol and Drug Abuse Patient Records regulations: The Federal rules restrict any use of the information to criminally investigate or prosecute any alcohol or drug abuse patient.[facility] HospitalIn the event this information is protected by the Federal Confidentiality of Alcohol and Drug Abuse Patient Records regulations: The Federal rules restrict any use of the information to criminally investigate or prosecute any alcohol or drug abuse patient.[facility] HospitalIn the event this information is protected by the Federal Confidentiality of Alcohol and Drug Abuse Patient Records regulations: The Federal rules restrict any use of the information to criminally investigate or prosecute any alcohol or drug abuse patient.[facility] HospitalIn the event this information is protected by the Federal Confidentiality of Alcohol and Drug Abuse Patient Records regulations: The Federal rules restrict any use of the information to criminally investigate or prosecute any alcohol or drug abuse patient.[facility] HospitalIn the event this information is protected by the Federal Confidentiality of Alcohol and Drug Abuse Patient Records regulations: The Federal rules restrict any use of the information to criminally investigate or prosecute any alcohol or drug abuse patient.[facility] HospitalIn the event this information is protected by the Federal Confidentiality of Alcohol and Drug Abuse Patient Records regulations: The Federal rules restrict any use of the information to criminally investigate or prosecute any alcohol or drug abuse patient.[facility] HospitalIn the event this information is protected by the Federal Confidentiality of Alcohol and Drug Abuse Patient Records regulations: The Federal rules restrict any use of the information to criminally investigate or prosecute any alcohol or drug abuse patient.[facility] HospitalIn the event this information is protected by the Federal Confidentiality of Alcohol and Drug Abuse Patient Records regulations: The Federal rules restrict any use of the information to criminally investigate or prosecute any alcohol or drug abuse patient.[facility] HospitalIn the event this information is protected by the Federal Confidentiality of Alcohol and Drug Abuse Patient Records regulations: The Federal rules restrict any use of the information to criminally investigate or prosecute any alcohol or drug abuse patient.[facility] HospitalIn the event this information is protected by the Federal Confidentiality of Alcohol and Drug Abuse Patient Records regulations: The Federal rules restrict any use of the information to criminally investigate or prosecute any alcohol or drug abuse patient.[facility] HospitalIn the event this information is protected by the Federal Confidentiality of Alcohol and Drug Abuse Patient Records regulations: The Federal rules restrict any use of the information to criminally investigate or prosecute any alcohol or drug abuse patient.[facility] HospitalIn the event this information is protected by the Federal Confidentiality of Alcohol and Drug Abuse Patient Records regulations: The Federal rules restrict any use of the information to criminally investigate or prosecute any alcohol or drug abuse patient.[facility] HospitalIn the event this information is protected by the Federal Confidentiality of Alcohol and Drug Abuse Patient Records regulations: The Federal rules restrict any use of the information to criminally investigate or prosecute any alcohol or drug abuse patient.[facility] HospitalIn the event this information is protected by the Federal Confidentiality of Alcohol and Drug Abuse Patient Records regulations: The Federal rules restrict any use of the information to criminally investigate or prosecute any alcohol or drug abuse patient.[facility] HospitalIn the event this information is protected by the Federal Confidentiality of Alcohol and Drug Abuse Patient Records regulations: The Federal rules restrict any use of the information to criminally investigate or prosecute any alcohol or drug abuse patient.[facility] HospitalIn the event this information is protected by the Federal Confidentiality of Alcohol and Drug Abuse Patient Records regulations: The Federal rules restrict any use of the information to criminally investigate or prosecute any alcohol or drug abuse patient.[facility] HospitalIn the event this information is protected by the Federal Confidentiality of Alcohol and Drug Abuse Patient Records regulations: The Federal rules restrict any use of the information to criminally investigate or prosecute any alcohol or drug abuse patient.[facility] HospitalIn the event this information is protected by the Federal Confidentiality of Alcohol and Drug Abuse Patient Records regulations: The Federal rules restrict any use of the information to criminally investigate or prosecute any alcohol or drug abuse patient.[facility] HospitalIn the event this information is protected by the Federal Confidentiality of Alcohol and Drug Abuse Patient Records regulations: The Federal rules restrict any use of the information to criminally investigate or prosecute any alcohol or drug abuse patient.[facility] HospitalIn the event this information is protected by the Federal Confidentiality of Alcohol and Drug Abuse Patient Records regulations: The Federal rules restrict any use of the information to criminally investigate or prosecute any alcohol or drug abuse patient.[facility] HospitalIn the event this information is protected by the Federal Confidentiality of Alcohol and Drug Abuse Patient Records regulations: The Federal rules restrict any use of the information to criminally investigate or prosecute any alcohol or drug abuse patient.[facility] HospitalIn the event this information is protected by the Federal Confidentiality of Alcohol and Drug Abuse Patient Records regulations: The Federal rules restrict any use of the information to criminally investigate or prosecute any alcohol or drug abuse patient.[facility] HospitalIn the event this information is protected by the Federal Confidentiality of Alcohol and Drug Abuse Patient Records regulations: The Federal rules restrict any use of the information to criminally investigate or prosecute any alcohol or drug abuse patient.[facility] Care Teams (unrecognized sec tion and content) Team Status: Active Member Role Status Dates Chetan RonquilloHARRIS REGIONAL HOSPITALMD Bailey Primary Care Provider Bev ctalex Team Status: Inactive Member Role Status Dates Chetan Rojas ([facility]MD Bailey Primary Care Provider Active Start: January 222023 End: January 22Nelida Choi ProviderActiveStart: January 22, 2024 End: January 22, 2024Team MemberRelationshipSpecialtyStart DateEnd Date Wil Goetz PCP - GeneralFamily Practice5/4/17 Team Status: Inactive Member Role Status Dates Chetan Rojas ([facility]) MD Primary Care Provider A ctIVON Renteria-BCEmergency ProviderActiveTeam MemberRelationship SpecialtyStart DateEnd Date Wil Goetz [address] [facility] [place] [address] PCP - GeneralFamily Aihflzvo27/13/23Team MemberRelationshipSpecialtyStart Date End Date BárbaraWil moore [address] [facility] [place] [address] PCP - GeneralFamily Vosyigak69/13/23Team MemberRelationshipSpecialtyStart Date End Date BárbaraWil moore [address] [facility] [place] [address] PCP - GeneralFamily Gfahsbfa12/13/23Team MemberRelationshipSpecialtyStart Date End Date BárbaraWil moore [address] [facility] [place] [address] PCP - GeneralFamily Kbfhcgeb24/13/23Team MemberRelationshipSpecialtyStart Date End Date BárbaraWil moore [address] [facility] [place] [address] PCP - GeneralFamily Ajcjsnrz18/13/23Team MemberRelationshipSpecialtyStart Date End Date BárbaraWil moore [address] [facility] [place] [address] PCP - GeneralFamily Reetwwpu57/13/23Team MemberRelationshipSpecialtyStart Date End Date BishnuWil [address] [facility] [place] [address] PCP - GeneralFamily Ujdfcnip36/13/23Team MemberRelationshipSpecialtyStart Date End Date Wil Goetz [address] [facility] [place] [address] PCP - GeneralFamily Nnltuukc68/13/23Team MemberRelationshipSpecialtyStart Date End Date Wil Goetz [address] [facility] [place] [address] PCP - GeneralFamily Jhyraqlf45/13/23Team MemberRelationshipSpecialtyStart Date End Date Wil Goetz [address] [place] [address] PCP - GeneralFamily Qdnrvvku47/13/23Team MemberRelationshipSpecialtyStart Date End Date Wil Goetz [address] [facility] [place] [address] PCP - GeneralFamily Kdiozsmz34/13/23Team MemberRelationshipSpecialtyStart Date End Date Wil Goetz [address] [place] [address] PCP - GeneralFamily Huyfymrz32/13/23Team MemberRelationshipSpecialtyStart Date End Date Chetan Rojas MD [facility] [place] [address] PCP - GeneralFamily Medicine06/08/24Team MemberRelationshipSpecialtyStart DateEnd Date Wil Goetz [address] [place] [address] PCP - GeneralFamily Mtjrdaul20/13/237Team MemberRelationshipSpecialtyStart DateEnd Date Chetan Rojas MD [address] [place] [address] PCP - GeneralFamily Medicine06/08/24Team MemberRelationshipSpecialtyStart DateEnd Date Wil Goetz [address] [place] [address] PCP - GeneralFamily Qrlvavgz47/13/237 Chetan Rojas MD [address] [place] [address] PCP - GeneralFamily Medicine06/08/24Team MemberRelationshipSpecialtyStart DateEnd Date Chetan Rojas MD [address] [place] [address] PCP - GeneralFamily Medicine06/08/24Team MemberRelationshipSpecialtyStart DateEnd Date Chetan Rojas MD [address] [place] [address] PCP - GeneralFamily Medicine06/08/24Team MemberRelationshipSpecialtyStart DateEnd Date Chetan Rojas MD [address] [place] [address] PCP - GeneralFamily Medicine06/08/24Team MemberRelationshipSpecialtyStart DateEnd Date Chetan Rojas MD [address] [place] [id number] PCP - [facility] Medicine06/08/24Team MemberRelationshipSpecialtyStart DateEnd Date Chetan Rojas MD [address] [place] [address] PCP - [facility]06/08/24Te MemberRelationshipSpecialtyStart DateEnd Date Chetan Rojas MD [address] [place] [id number] PCP - [facility]06/08/24Te MemberRelationshipSpecialtyStart DateEnd Date Chetan Rojas MD [address] [place] [id number] PCP - [facility]06/08/24 REASON FOR VISIT (unrecogniz ed section and content) ReasonCommentsEstablish CareChrones diseasePt has hep cPt is heavy drinker Pt is gaining weightPt is going rough it replapsedPthas a vibLarge intestine removedPt had colon cancerPt is very depressedReasonCommentsNew PatientChronic Hep C without Hepatic comaSpecialtyDiagnoses / ProceduresReferred By ContactReferred To ContactGastroenterology Diagnoses Chronic hepatitis C without hepatic coma (HCC) Crohn's disease of small intestine with other complication (HCC) Procedures CONSULT TO GASTROENTEROLOGY OFFICE/OUTPATIENT [facility] 60-[place] [address] [place] [address] Referral IDStatusReasonStart DateExpiration DateVisits RequestedVisits [id number] PCP Requested Referral [id number] / Procedures Referred By ContactReferred To ContactGastroenterology Diagnoses Crohn's disease of small intestine with other complication (HCC) Procedures CONSULT TO GASTROENTEROLOGY OFFICE/OUTPATIENT [facility] 60-74 MINUTES Reyna Anton APRN.[employer] [address] [place] [address] Referral IDStatusReasonStart DateExpiration DateVisits RequestedVisits [id number] PCP Requested Referral [id number] PatientCrohnsReasonComments Established PatientChronic Hep C Follow UpReasonCommentsOrdersCare Coordinator - OtherReasonCommentsRadiology CTSpecialtyDiagnoses / ProceduresReferred By ContactReferred To ContactCT IMAGING Diagnoses Crohn's disease of small and large intestines with complication (HCC) Procedures CT ENTEROGRAPHY W IVCON CT ABD & PELVIS W/CONTRAST Rusty Lopez MD [address] [place] [address] [facility] [place] [address] Referral IDStatusReasonStart DateExpiration DateVisits RequestedVisits [id number] Auto-Generated Referral Clearance Not Met - Admin/Heater Tender/Director Advise to Postpone/Reschedule or Not Proceed /[id number] CTSpecialtyDiagnoses / Procedures Referred By ContactReferred To ContactRadiology / RADIO CT SCAN [place]gin Diagnoses Crohn's disease of both small and large intestine with complication (HCC) Procedures CT ABD & PELVIS W/CONTRAST CT ENTEROGRAPHY PREP Rusty Lopez MD [address] [place] [address] [facility] [address] [place] [address] Referral IDStatusReasonStart DateExpiration DateVisits RequestedVisits [id number] Patient Cleared - Admin/Heater Tender/Director advise to proceed or did not respond [id number] CureOpen VHR 3 hours los 2Reason CommentsConsultReasonCommentsCrohnsReasonCommentsHerniaSpecialtyDiagnoses / ProceduresReferred By ContactReferred To ContactGeneral Surgery Diagnoses Hernia Procedures CONSULT TO GENERAL SURGERY OFFICE/OUTPATIENT [facility] 60 MINUTES Reyna Anton, 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.[employer] [address] [place] [place] [phone] Referral IDStatusReasonStart DateExpiration DateVisits RequestedVisits [id number] PCP Requested Referral /[id number] / ProceduresReferred By ContactReferred To Contact Diagnoses Preoperative examination Ventral hernia without obstruction or gangrene Procedures REFER TO PACC / [facility] - PREOPERATIVE OPTIMIZATION OFFICE/OUTPATIENT [facility] 60 MINUTES Renee Pearce, 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.[employer] [address] [place] [phone] Referral IDStatusReasonStart DateExpiration DateVisits RequestedVisits [id number] PCP Requested Referral /[id number] In UrineReasonOnset DateCommentsEscalation of Care4ReasonCommentsPainChronic pain Goals (unrecognized section and content) Goals [...] BE BASED ON THE PRIMARY CLINICAL RECORDS. [employer] [facility]. provides no warranty or guarantee of the accuracy or completeness of information in this document.
[2025-09-21] MEDS: KETOROLAC TROMETHAMINE 60 MG/2 ML VIAL IM (11:25)
[2025-09-21] MEDS: ORPHENADRINE 60 MG/2 ML VIAL IM (11:25)
== END 2025-09-21 12:42 | disposition home or self-care (01) ==
PROVIDERS: Emergency Provider Emergency Medicine; PCP Family Medicine
DX: S39.012A Strain of muscle, fascia and tendon of lower back, initial encounter (principal); X50.0XXA Overexertion from strenuous movement or load, initial encounter; F17.200 Nicotine dependence, unspecified, uncomplicated; M41.9 Scoliosis, unspecified
CPT/HCPCS: 72070; 72100; 96372; 99284; J1885; J2360

== ENCOUNTER 2025-09-28 08:24 | Emergency (ER) | payer OTHER, SELFPAY ==
[2025-09-28 08:32] VITALS: BP 161/100; PULSE 102; TEMP 36.6; O2SAT 97; BMI 32.1
--- OUTSIDE RECORDS SUMMARY | 2025-09-28 08:38 | XMS_ITS | CCD ---
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 except ear drum], initial encounter]92-20-5550MrofwdjySuvzorj dysrhythmias (1 source)Palpitations; Translations: [Palpitations]Onset: 05-51-5548Totrxico Chronic obstructive pulmonary disease and bronchiectasis (2 sources)Bronchitis; Translations: [Bronchitis, not specified as acute or chronic]96-82-5241BbibchueDmjdtkuzt of teeth and jaw (2 sources)Dental caries; Translations: [Dental caries, unspecified]08-10-2020 EpisodicE Codes: Struck by; against (2 sources)Striking against or struck by other objects, initial encounter; Translations: [Other cause of strike by thrown, projected or falling object, initial encounter]Onset: 12-42-2566KdlwavmvNcbncdgcrz disorders (20 sources)Gastroesophageal reflux disease; Translations: [Gastro-esophageal reflux disease without esophagitis]Onset: 219094-02-4292QtdmtfvElrmvoduw (13 sources)Chronic hepatitis C; Translations: [Chronic viral hepatitis C]Onset: 089088-01-2071KcblpkpRriucbroi (2 sources)Influenza; Translations: [Influenza due to unidentified influenza virus with other respiratory manifestations]45-91-2164IucwotybRynhn disorders and dislocations; trauma-related (6 sources)Derangement of right knee; Translations: [Unspecified internal derangement of right knee]Onset: 09-13-2021 Resolved: 33-42-6727XjngiqhBwks disorders (20 sources)Bipolar I disorder; Translations: [Bipolar disorder, unspecified] Onset: 856570-30-6856ScjzaabNedayvianxs deficiencies (20 sources)Moderate protein energy malnutrition; Translations: [Moderate protein-calorie malnutrition]Onset: 07-15-2021 Resolved: 362330-77-9074TbtbwpmGljo wounds of extremities (2 sources)Puncture wound of toe; Translations: [Puncture wound without foreign body of unspecified toe(s) without damage to nail, initial encounter]03-24-2021 EpisodicOpen wounds of head; neck; and trunk (2 sources)Laceration - injury; Translations: [Laceration]00-02-3520Zkerhzpl Other connective tissue disease (3 sources)Pain in right foot; Translations: [PAIN IN RIGHT FOOT]Onset: 84-91-2493RhxllrbjWdpru gastrointestinal disorders (2 sources)History of Crohns disease; Translations: [Personal history of other diseases of the digestive system]18-81-0496MrccjtffHigbg gastrointestinal disorders (2 sources)Diarrhea; Translations: [Diarrhea, unspecified]39-23-2142Zjbpjjwg Other injuries and conditions due to external causes (1 source)Injury of right hand; Translations: [Unspecified injury of right wrist, hand and finger(s), initialencounter]EpisodicOther injuries and conditions due to external causes (1 source)Injury of finger; Translations: [Unspecified injury of left wrist, hand and finger(s), initial encounter]75-52-8510DsfseiwqXiiqf injuries and conditions due to external causes (2 sources)Injury of toe; Translations: [Unspecified injury of unspecified foot, initial encounter]06-62-9998CamorpruQbcfo injuries and conditions due to external causes (1 source)Injury of finger of left hand; Translations: [Unspecified injury of left wrist, hand and finger(s),initial encounter]18-16-8928GigoqbvgRmyck liver diseases (1 source)Steatosis of liver; Translations: [Fatty (change of) liver, not elsewhere classified]87-42-0055ApqzzriYvmdd liver diseases (3 sources)Elevated liver enzymes level; Translations: [Abnormal levels of other serum enzymes]69-75-8772XtprccboBqmhc lower respiratory disease (2 sources)Productive cough ; Translations: [Productive cough]12-21-1620Mzzderjf Other nervous system disorders (11 sources)Postoperative pain ; Translations: [Other acute postprocedural pain] Onset: 549728-24-9006FsmewaixOudyd nervous system disorders (1 source)Other acute postprocedural pain; Translations: [Post-operative pain] Onset: 32-24-1442WvwmkalyUwamu nutritional; endocrine; and metabolic disorders (14 sources)Obese class II; Translations: [Obesity, unspecified]Onset: 151244-31-3603SsjeirjXdape upper respiratory infections (2 sources)Upper respiratory infection; Translations: [Acute upper respiratory infection, unspecified]53-48-6303AlnbiaslDzmbbtzjw by other medications and drugs (2 sources)Poisoning by unspecified drugs, medicaments and biological substances, accidental (unintentional), initial encounter; Translations: [Polysubstance overdose]72-21-8907AluzplicByxmwiye enteritis and ulcerative colitis (20 sources)Crohn's disease; Translations: [Crohn's disease, unspecified, without complications]Onset: 03-21-2010 Resolved: 482602-19-4159VvvbokfJyimxlut codes; unclassified (10 sources)Harmful pattern of use of nicotine; Translations: [Tobacco use] Onset: 758937-07-6674XwxbbqwdAimc and subcutaneous tissue infections (2 sources)Cellulitis and abscess of buttock; Translations: [Cutaneous abscess of buttock]35-71-6817IvorcqlrFxkrgef and strains (4 sources)Strain of muscle of hip; Translations: [Strain of muscle, fascia and tendon of unspecified hip, initial encounter]80-22-4048OfeaxgcgMkdxopriw-related disorders (20 sources)Opioid dependence; Translations: [Opioid dependence, uncomplicated] Onset: 582286-06-0750FucoxszNdkfhljcq-dxmapcj disorders (16 sources)Opioid withdrawal; Translations: [Opioid use, unspecified with withdrawal]Onset: 109901-51-1199TxrnfetvCooputqpfkt injury; contusion (5 sources)Contusion of right foot, initial encounter; Translations: [Contusion of hand]Onset: 047773-38-9296NsgtzlqiOpulndqcwmtr (1 source)Unknown / UNK(Unknown)Onset: 77-02-4844Ouibzgtvmdeu (1 source)Fever, unspecified; Translations: [Fever, unspecified]Onset: 66-43-9843Iskfopvtkrcv (1 source)ConsultOnset: 55-20-1610Vwunvjltigpk (1 source)Alcohol withdrawal syndrome without complication (HCC); Translations: [Alcohol withdrawal syndrome without complication (HCC)]Onset: 07-07-2024 Unclassified (1 source)Personal history of latent tuberculosis infection; Translations: [History of latent tuberculosis]Onset: 14-31-8235Hizgg infection (2 sources)Disease caused by 2019-nCoV; Translations: [COVID-19]11-11-2022 Episodic Past or Other Problems Problem ClassificationProblemDateDocumented DateEpisodic/ChronicAbdominal pain (20 sources)Abdominal pain; Translations: [Unspecified abdominal pain]Onset: 09-06-2012 Resolved: 788793-14-7359IbmcptjpBgbcaoivrvtbcf/social admission (1 source)Encounter for issue of repeat prescription; Translations: [ENC FOR ISSUE REPEAT PRESCRIPTION]Onset: 09-65-8188SlywuasdVtbzwdyeh infection; unspecified site (20 sources)Clostridioides difficile infection; Translations: [Other bacterial infections of unspecified site]Onset: 754953-79-6583BszgzkmsFkyxv and electrolyte disorders (20 sources)Severe dehydration; Translations: [Dehydration]Onset: 11-06-2015 Resolved: 903750-06-6814QsarelxeAlahpfqqa (20 sources)Viral hepatitis C; Translations: [Unspecified viral hepatitis C without hepatic coma]Onset: 334249-86-4152UrxsyuezClcbguvddljve and screening for infectious disease (5 sources)Interferon gamma assay result indeterminate; Translations: [Nonspecific reaction to cell mediated immunity measurement of gamma interferon antigen response without active tuberculosis]EpisodicIntestinal obstruction without hernia (20 sources)Small bowel obstruction; Translations: [Unspecified intestinal obstruction, unspecified as to partial versus complete obstruction]Onset: 11-06-2015 Resolved: 606010-40-0175NghuikaoOdkot disorders and dislocations; trauma-related (2 sources)Other tear of medial meniscus, current injury, right knee, initial encounterOnset: 01-10-2022 Resolved: 57-80-0624SexrogxwDjqxr aftercare (1 source)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; Translations: [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]Onset: 15-53-7903BfbbwrbpSlhui gastrointestinal disorders (20 sources)Loose stool; Translations: [Other fecal abnormalities]Onset: 09-06-2012 Resolved: 321175-73-6610GukvtdgyNgcko gastrointestinal disorders (4 sources)Diarrhea, unspecified; Translations: [DIARRHEA UNSPECIFIED]Onset: 81-01-7709JlbxhmmbIehwa non-traumatic joint disorders (7 sources)Pain in right knee; Translations: [Acute pain of right knee M25.561] Onset: 09-13-2021 Resolved: 97-10-3124JlojgzbdKnceb screening for suspected conditions (not mental disorders or infectious disease) (20 sources)Electrocardiogram abnormal; Translations: [Abnormal electrocardiogram [ECG] [EKG]]Onset: 26-48-9266FdgwauicPzfjkdzkt (except that caused by tuberculosis or sexually transmitted disease) (20 sources)Pneumonia; Translations: [Pneumonia, unspecified organism]Onset: 03-21-2010 Resolved: 223285-54-6163BidrmekhGlosbdhm codes; unclassified (20 sources)History of colectomy; Translations: [Acquired absence of other specified parts of digestive tract]Onset: 749238-75-0863UchoyrnzTaclugjd codes; unclassified (20 sources)Generalized aches and pains; Translations: [Pain, unspecified]Onset: 09-18-2013 Resolved: 484735-33-0247XxfxpdzmZdongmho codes; unclassified (2 sources)Other specified postprocedural statesOnset: 01-10-2022 Resolved: 45-19-8552XlpkxraiAuzlpcbe codes; unclassified (1 source)Personal history of other specified conditions; Translations: [PERSONAL HISTORY OTH SPEC CONDITION]Onset: 60-48-9745RugakfdqIxzqafub codes; unclassified (1 source)Acquired absence of other specified parts of digestive tract; Translations: [ACQ ABSENCE OTH PART DIGESTV TRACT]Onset: 00-10-4819Lelqebbh Syncope (20 sources)Syncope; Translations: [Syncope and collapse]Onset: 09-06-2012 Resolved: 797096-63-3458ZwamjqreDfdthfwkicps (1 source)ILLOnset: 29-25-5671Supqkkhccrvm (20 sources)SUMMARYOnset: 11-06-2015 Resolved: 317010-69-7452 Results Test NameValueInterpretationReference RangeFacilityCNPNon 47-49-8255LCSIQbldxb [facility] CenterCNPNon 10-60-2305VXLYPwjzblKqswknyfz [facility] CNOVon 72-00-5122SMXZXyqxufEqqalnvle Clinic ClevelandCNOVOffice Visit (PNHM) ANGELITA MOMIN ([id number]) 1990 M Date Time Provider Department 07/19/24 8:00 AM CHARLEEN SILVER [facility] During your visit today, we recorded the following information about you: Pulse Respiration Blood pressure 89/minute 18/minute 147/94 Charleen Silver MD 07/19/2024 8:45 AM Signed [facility] Pain Management Department Consultation Date: July [...] the past who has been treated at [facility] recently for abdominal hernia repair with a [...] on 06/29/2024) (more content not included)...NormalHillcrest HospitalCNPNon 90-68-0887SCDP NormalUniversity Hospitals Parma Medical CenterCASE MANAGEMon 23-29-6499BWPC MANAGEMNormal [facility] CenterCNDSon 31-67-4914MXJWTdsqzkGbdwqulvn [facility] CONSULT PROGon 54-64-6005VLSCHNH PROGNormalUniversity Hospitals Parma Medical CenterTHERAPY NT on 22-04-4275ATESUVT NTNormalCWayne HospitalBasic metabolic 2000 panelon 22-87-1807Cpxxm gap [Moles/Vol]11 mmol/LNormal-[facility] Medical CenterComment on above:Order Comment: Specimen Type: BLOOD SPECIMENOrdering Facility: [facility] Address:[address] [address]Rjwrpslox By: #### 27680-7, 2777-1, 22254-0 ####[facility] LABCLIA [id number], [place] [address] [place] AMERICACalcium [Mass/Vol]8.8 mg/dLNormal8.5-10.2CWayne HealthCare Main Campus on above:Order Comment: Specimen Type: BLOOD SPECIMENOrdering Facility: [facility] Address:[address] [place], [place] [address]Result Comment: Result rechecked.Performed By: #### 50920-8, 2777-1, 64356- 2 ####[facility] LABCLIA [id number], [place] [address] [place] AMERICAChloride [Moles/Vol]104 mmol/L Wcmsyl75-832XmorkefnfClermont County Hospital on above:Order Comment: Specimen Type: BLOOD SPECIMENOrdering Facility: [facility] Address:[address] [place], [place] [address]Performed By: #### 86065-1, 2777-1, 73269-3 ####[facility] LABCLIA [id number], [place] [address] [place] AMERICACO2 [Moles/Vol]25 mmol/LNormal 22-30[facility] on above:Order Comment: Specimen Type: BLOOD SPECIMENOrdering Facility: [facility] Address:[address] [place], [place] [address]Performed By: #### 05867-9, 2777-1, 68345-9 ####[facility] LABCLIA [id number], [place] [address] [place] AMERICACreatinine [Mass/Vol]0.85 mg/dL Normal0.73-1.22[facility] on above:Order Comment: Specimen Type: BLOOD SPECIMENOrdering Facility: [facility] Address:[address] [place], [place] [address]Performed By: #### 52146-7, 2777-1, 57128-7 ####[facility] LABCLIA [id number] STATES OF [address] GOD HOSPITALCreatinine and Glomerular filtration rate.predicted panel (S/P/Bld)118 mL/min/1.73m???Normal>=60[facility] on above:Order Comment: Specimen Type: BLOOD SPECIMENOrdering Facility: [facility] Address:[address] [place], [place] [address]Result Comment: Estimated Glomerular Filtration Rate (eGFR) is calculated using the 2020 CKD-EPI creatinine equation. This equation utilizes serum creatinine, sex, and age as parameters. The creatinine assay has traceable calibration to isotope dilution-mass spectrometry. Refer to KDIGO guidelines for clinical interpretation. In patients with unstable renal function, e.g. those with acute kidney injury, the eGFR may not accurately reflect actual GFR.Performed By: #### 87506-5, 2777-1, 17916-6 ####[facility] LABCLIA [id number] VILLE [id number] [place] AMERICAGlucose [Mass/Vol]97 mg/vVDlwadf68-42QzfxzagyfClermont County Hospital on above:Order Comment: Specimen Type: BLOOD SPECIMENOrdering Facility: [facility] Address:[address] [place], [place] [address]Result Comment: The [place] Diabetes Association (ADA) provides guidance for cutoff [...] Standards of Medical Care in Diabetes 2016, [place] [employer]. Diabetes Care. 2016.39(Suppl 1).Performed By: #### 25104- 9, 2777-1, 41383-5 ####[facility] LABCLIA [id number] [address] [place] OF AMERICAPotassium [Moles/Vol] 3.5 mmol/LLow3.7-5.1CWayne HealthCare Main Campus on above:Order Comment: Specimen Type: BLOOD SPECIMENOrdering Facility: [facility] Address:[address] [place], [place] [address]Performed By: #### 16337-0, 2777-1, 33288-8 ####[facility] LABCLIA [id number], [place] [address] [facility] GOD HOSPITALSodium [Moles/Vol]140 mmol/L Fzfsux469-798FmnhxqeakClermont County Hospital on above:Order Comment: Specimen Type: BLOOD SPECIMENOrdering Facility: [facility] Address:[address] [place], [place] [address]Performed By: #### 60029-8, 2777-1, 50838-1 ####[facility] LABCLIA [id number] STATES OF AMERICAUrea nitrogen [Mass/Vol]10 mg/dL Normal9-24[facility] on above:Order Comment: Specimen Type: BLOOD SPECIMENOrdering Facility: [facility] Address:[address] [place], [place] [address]Performed By: #### 93382-7, 2777-1, 16363-0 ####[facility] LABCLIA [id number], [place] [address] [place] OF AMERICAMEADOWVIEW REG[facility]AL [facility] W Auto Differential panel (Bld)on 51-61-5478Gwmxiqyaz (Bld) [#/Vol]0.06 10*3/uLNormal<0.11CWayne HealthCare [facility] on above:Order Comment: Specimen Type: BLOOD SPECIMENOrdering Facility: [facility] Address:[address] [place], [place] [address]Performed By: #### 62192-0 ####[facility] LABCLIA [id number] [place] [address] [place] Basophils/100 WBC (Bld)0.8 %NormalClermont County Hospital on above: Order Comment: Specimen Type: BLOOD SPECIMENOrdering Facility: [facility] Address:[address] [place], [place] [address]Performed By: #### 39761- 8 ####[facility] LABCLIA [id number] [place] [address] [place] AMERICADifferential cell count method Nom (Bld)AutoNormalClevelCleveland Clinic [facility] on above:Order Comment: Specimen Type: BLOOD SPECIMENOrdering Facility: [facility] Address:[address] [place], [place] [address]Performed By: #### 22696-9 ####[facility] LABIA [id number] [place] [address] [place] AMERICAEosinophils (Bld) [#/Vol]0.41 10*3/uLNormal<0.46[facility] on above:Order Comment: Specimen Type: BLOOD SPECIMENOrdering Facility: [facility] Address:[address] [place], [place] [address]Performed By: #### 47355-5 ####[facility] LABCLIA [id number] [place] [address] [place] AMERICAEosinophils/100 WBC (Bld)5.5 % NormalClermont County Hospital on above:Order Comment: Specimen Type: BLOOD SPECIMENOrdering Facility: [facility] Address:[address] [place], [place] [address]Performed By: #### 00202-9 ####[facility] LABIA [id number] [place] [address] [place] AMERICAErythrocyte distribution width (RBC) [Ratio]13.8 %Normal 11.5-15.0[facility] on above:Order Comment: Specimen Type: BLOOD SPECIMENOrdering Facility: [facility] Address:[address] [place], [place] [address]Performed By: #### 84575-1 ####[facility] LABIA [id number] [place] [address] [place] AMERICAHematocrit (Bld) [Volume fraction]41.1 %Dxxdsb62.0-51.0 [facility] on above:Order Comment: Specimen Type: BLOOD SPECIMENOrdering Facility: [facility] Address:[address] [place], [place] [address]Performed By: #### 91613-6 ####[facility] LABIA [id number] [place] [address] [place] AMERICAHemoglobin (Bld) [Mass/Vol]13.4 g/eGDnoutl10.0-17.0[facility] on above:Order Comment: Specimen Type: BLOOD SPECIMENOrdering Facility: [facility] Address:[address] [place], [place] [address]Performed By: #### 27251-3 ####[facility]ITAL[facility] [id number] [place] [address] [place] Immature granulocytes (Bld) [#/Vol]0.18 10*3/uLHigh<0.10[facility] on above:Order Comment: Specimen Type: BLOOD SPECIMENOrdering Facility: [facility] Address:[address] [place], [place] [address]Performed By: #### 14337-5 ####[facility] LABIA [id number] [place] [address] [place] Immature granulocytes/100 WBC (Bld)2.4 %NormalClermont County Hospital on above:Order Comment: Specimen Type: BLOOD SPECIMENOrdering Facility: [facility] Address:[address] [place] [address] Performed By: #### 96010-6 ####[facility] LABIA [id number] [place] [address] [place] Lymphocytes (Bld) [#/Vol]1.35 10*3/uLNormal1.00-4.00[facility] Comment on above:Order Comment: Specimen Type: BLOOD SPECIMENOrdering Facility: [facility] Address:[address] [place] [address] Performed By: #### 32232-7 ####[facility] LABCLIA [id number] [address] [place] Lymphocytes/100 WBC (Bld)18.1 %NormalClermont County Hospital on above: Order Comment: Specimen Type: BLOOD SPECIMENOrdering Facility: [facility] Address:[address] [place], [place] [address]Performed By: #### 42630- 8 ####[facility] LABIA [id number] ALL[address] STREETMCH (RBC) [Entitic mass]26.6 pg Zgiktz28.0-34.0[facility] Hospitalment on above:Order Comment: Specimen Type: BLOOD SPECIMENOrdering Facility: [facility] Address:[address] [place], [place] [address]Performed By: #### 92845-5 ####[facility] LABCLIA [id number] [address] STATES OF [address] [facility] OF GOD HOSPITALMCHC (RBC) [Mass/Vol]32.6 g/dL Dkqgjc55.5-36.0[facility] on above:Order Comment: Specimen Type: BLOOD SPECIMENOrdering Facility: [facility] Address:[address] [place], [place] [address]Performed By: #### 66434-9 ####[facility] LABIA [id number] [address]ETV (RBC) [Entitic vol]81.7 fL Cgcmkn48.0-100.0[facility] on above:Order Comment: Specimen Type: BLOOD SPECIMENOrdering Facility: [facility] Address:[address] [place], [place] [address]Performed By: #### 20668-7 ####[facility] LABCLIA [id number] [place] [address] [place] AMERICAMonocytes (Bld) [#/Vol]0.68 10*3/uLNormal<0.87[facility] on above:Order Comment: Specimen Type: BLOOD SPECIMENOrdering Facility: [facility] Address:[address] [place], [place] [address]Performed By: #### 71913-6 ####[facility] LABCLIA [id number] [place] [address] [place] AMERICAMonocytes/100 WBC (Bld)9.1 % NormalClermont County Hospital on above:Order Comment: Specimen Type: BLOOD SPECIMENOrdering Facility: [facility] Address:[address] [place], [place] [address]Performed By: #### 13999-5 ####[facility] LABIA [id number] [place] [address] [place] AMERICANeutrophils (Bld) [#/Vol]4.78 10*3/uLNormal1.45-7.50[facility] on above:Order Comment: Specimen Type: BLOOD SPECIMENOrdering Facility: [facility] Address:[address] [place], [place] [address]Performed By: #### 08155-2 ####[facility] LABCLIA [id number] [place] [address] [place] AMERICANeutrophils/100 WBC (Bld)64.1 %NormalClermont County Hospital on above:Order Comment: Specimen Type: BLOOD SPECIMENOrdering Facility: [facility] Address:[address] [place] [address] Performed By: #### 69038-0 ####[facility] LABIA [id number] [place] [address] [place] Nucleated RBC (Bld) [#/Vol]10*3/uLNormal<0.01[facility] on above:Order Comment: Specimen Type: BLOOD SPECIMENOrdering Facility: [facility] Address:[address] [place] [address] Performed By: #### 75176-7 ####[facility] LABIA [id number] [place] [address] [place] Nucleated RBC/100 WBC (Bld) [Ratio]0.0 /100 WBCNormalCWayne Hospital Comment on above:Order Comment: Specimen Type: BLOOD SPECIMENOrdering Facility: [facility] Address:[address] [place] [address] Performed By: #### 44646-8 ####[facility] LABIA [id number] [place] [address] [place] Platelet mean volume (Bld) [Entitic vol]11.9 fLNormal9.0-12.7CWay[facility] on above:Order Comment: Specimen Type: BLOOD SPECIMENOrdering Facility: [facility] Address:[address] [place], [place] [address]Performed By: #### 24810-8 ####[facility] LABIA [id number] [place] [address] [place] Platelets (Bld) [#/Vol]164 10*3/bPFzkgxr324-014XbsykljmwClermont County Hospital on above:Order Comment: Specimen Type: BLOOD SPECIMENOrdering Facility: [facility] Address:[address] [place] [address] Performed By: #### 49915-7 ####[facility] LABIA [id number] [place] [address] [place] RBC (Bld) [#/Vol]5.03 10*6/uLNormal4.20-6.00[facility] on above:Order Comment: Specimen Type: BLOOD SPECIMENOrdering Facility: [facility] Address:[address] [place], [place] [address]Performed By: #### 75648-4 ####[facility] LABCLIA [id number] [place] [address] [place] AMERICAWBC (Bld) [#/Vol]7.46 10*3/uLNormal3.70-11.00[facility] Parma Medical CenterComment on above:Order Comment: Specimen Type: BLOOD SPECIMENOrdering Facility: [facility] Address:[address] [place], [place] [address]Performed By: #### 19271-3 ####[facility] LABCLIA [id number] [place] [address] [place] OF AMERICACONSULT PROGon 05-00-3135HQCZCUO PROGNUniversity Hospitals St. John Medical CenterMagnesium SerPl-mCncon 75-47-2925Qjmmayyzj [Mass/Vol]2.0 mg/dLNormal1.7-2.3CWayne HospitalComment on above:Order Comment: Specimen Type: BLOOD SPECIMENOrdering Facility: [facility] Address:[address] [place], [place] [address]Performed By: #### 39427- 9, 2777-1, 31283-3 ####[facility] LABCLIA [id number][place] [address] [place] AMERICANURSING PROGon 19-36-4296UWCZRJG PROGNormalUniversity Hospitals Parma Medical CenterPhosphate SerPl-mCncon 00-83-7149Smjnzoobr [Mass/Vol]3.1 mg/dLNormal2.7-4.8CWay[facility] Hospital Comment on above:Order Comment: Specimen Type: BLOOD SPECIMENOrdering Facility: [facility] Address:[address] [place] [address] Performed By: #### 36288-7, 2777-1, 24666-0 ####[facility] LABCLIA [id number] [place] [address] [place] AMERICATHERAPY NTon 98-94-6504XAIQMRK NTNormalCWayne HospitalBacardinal hill rehabilitation center metabolic 2000 panelon 32-71-2844Gqyei gap [Moles/Vol]10 mmol/LNormal8-15 [facility] on above:Order Comment: Specimen Type: BLOOD SPECIMENOrdering Facility: [facility] Address:[address] [place], [place] [address]Performed By: #### 12422-3 ####[facility] LABCLIA [id number] [place] [address] [place] AMERICACalcium [Mass/Vol]7.1 mg/dLLow8.5-10.2CWay[facility] on above:Order Comment: Specimen Type: BLOOD SPECIMENOrdering Facility: [facility] Address:[address] [place] [address] Performed By: #### 48131-3 ####[facility] LABCLIA [id number] [place] [address] [place] Chloride [Moles/Vol]109 mmol/XUsoa19-963CdudqipxqClermont County Hospital on above:Order Comment: Specimen Type: BLOOD SPECIMENOrdering Facility: [facility] Address:[address] [place], [place] [address]Performed By: #### 49541-7 ####[facility] LABCLIA [id number] [place] [address] [place] AMERICACO2 [Moles/Vol]24 mmol/QPlqfdu18-09XcphztxwhClermont County Hospital on above:Order Comment: Specimen Type: BLOOD SPECIMENOrdering Facility: [facility] Address:[address] [place], [place] [address]Performed By: #### 53913-9 ####[facility] LABCLIA [id number] [place] [address] [place] AMERICACreatinine [Mass/Vol]0.77 mg/dL Normal0.73-1.22[facility] on above:Order Comment: Specimen Type: BLOOD SPECIMENOrdering Facility: [facility] Address:[address] [place], [place] [address]Performed By: #### 93355-1 ####[facility] LABIA [id number] [place] [address] [place] AMERICACreatinine and Glomerular filtration rate.predicted panel (S/P/Bld)121 mL/min/1.73m???Normal>=60[facility] on above:Order Comment: Specimen Type: BLOOD SPECIMENOrdering Facility: [facility] Address:[address] [place], [place] [address]Result Comment: Estimated Glomerular Filtration Rate (eGFR) is calculated using the 2020 CKD-EPI creatinine equation. This equation utilizes serum creatinine, sex, and age as parameters. The creatinine assay has traceable calibration to isotope dilution-mass spectrometry. Refer to KDIGO guidelines for clinical interpretation. In patients with unstable renal function, e.g. those with acute kidney injury, the eGFR may not accurately reflect actual GFR.Performed By: #### 05563-2 ####[facility] LABIA [id number] [place] [address] [place] AMERICAGlucose [Mass/Vol]78 mg/qQAmojyp88-75CnlggbjptClermont County Hospital on above:Order Comment: Specimen Type: BLOOD SPECIMENOrdering Facility: [facility] Address:[address] [place], [place] [address]Result Comment: The [place] Diabetes Association (ADA) provides guidance for cutoff [...] Standards of Medical Care in Diabetes 2016, [place] [employer]. Diabetes Care. 2016.39(Suppl 1).Performed By: #### 64800-9 ####[facility] LABCLIA [id number] [place] [address] [place] AMERICAPotassium [Moles/Vol]2.8 mmol/LLow3.7-5.1C[facility] Comment on above:Order Comment: Specimen Type: BLOOD SPECIMENOrdering Facility: [facility] Address:[address] [place] [address] Performed By: #### 64185-1 ####[facility] LABCLIA [id number] [place] [address] [place] Sodium [Moles/Vol]143 mmol/VAzoabn648-556TlggezjpsClermont County Hospital on above:Order Comment: Specimen Type: BLOOD SPECIMENOrdering Facility: [facility] Address:[address] [place], [place] [address]Performed By: #### 76067-3 ####[facility] LABIA [id number] [place] [address] [place] AMERICAUrea nitrogen [Mass/Vol]13 mg/dLNormal9-24[facility] Medical CenterComment on above:Order Comment: Specimen Type: BLOOD SPECIMENOrdering Facility: [facility] Address:[address] [place], [place] [address]Performed By: #### 34824- 2 ####[facility] LABIA [id number] [place] [address] [place] AMERICAAnion gap [Moles/Vol]16 mmol/L High8-15[facility] on above:Order Comment: Specimen Type: BLOOD SPECIMENOrdering Facility: [facility] Address:[address] [place], [place] [address]Performed By: #### 64036-8, 71748-8 ####[facility] LABIA [id number] [address] [address] [place] AMERICACalcium [Mass/Vol]8.6 mg/dLNormal8.5-10.2CWay[facility] on above:Order Comment: Specimen Type: BLOOD SPECIMENOrdering Facility: [facility] Address:[address] [place], [place] [address]Performed By: #### 73461-7, 95978-3 ####[facility] LABCLIA [id number] [place] [address] [place] AMERICAChloride [Moles/Vol]101 mmol/RIqfslb15-589YhlinxqifClermont County Hospital on above:Order Comment: Specimen Type: BLOOD SPECIMENOrdering Facility: [facility] Address:[address] [place], [place] [address]Performed By: #### 70220-5, 23457-7 ####[facility] LABCLIA [id number] [place] [address] [place] AMERICACO2 [Moles/Vol]26 mmol/DRasvfp52-02TmllxmrybClermont County Hospital on above:Order Comment: Specimen Type: BLOOD SPECIMENOrdering Facility: [facility] Address:[address] [place], [place] [address]Performed By: #### 73937-1, 65899-6 ####[facility] LABCLIA [id number] [place] [address] [place] AMERICACreatinine [Mass/Vol] 0.89 mg/dLNormal0.73-1.22[facility] on above:Order Comment: Specimen Type: BLOOD SPECIMENOrdering Facility: [facility] Address:[address] [place], [place] [address]Performed By: #### 73892- 2, 90716-3 ####[facility] LABCLIA [id number] [facility] [place] [address] [place] AMERICACreatinine and Glomerular filtration rate.predicted panel (S/P/Bld)116 mL/min/1.73m???Normal >=60[facility] on above:Order Comment: Specimen Type: BLOOD SPECIMENOrdering Facility: [facility] Address:[address] [place], [place] [address]Jitcdl Comment: Estimated Glomerular Filtration Rate (eGFR) is calculated using the 2020 CKD-EPI creatinine equation. This equation utilizes serum creatinine, sex, and age as parameters. The creatinine assay has traceable calibration to isotope dilution-mass spectrometry. Refer to KDIGO guidelines for clinical interpretation. In patients with unstable renal function, e.g. those with acute kidney injury, the eGFR may not accurately reflect actual GFR.Performed By: #### 32390-6, 07975-7 ####[facility] LABIA [id number] [place] [address] [place] AMERICAGlucose [Mass/Vol]83 mg/nYUmzbxo98-41DigobvzsxUniversity Hospitals Parma Medical Center Comment on above:Order Comment: Specimen Type: BLOOD SPECIMENOrdering Facility: [facility] Address:[address] [place], [place] [address]Result Comment: The [place] Diabetes Association (ADA) provides guidance for cutoff [...] Standards of Medical Care in Diabetes 2016, [place] [employer]. Diabetes Care. 2016.39(Suppl 1).Performed By: #### 20510-4, 53293-2 ####[facility] LABIA [id number] [place] [address] [place] AMERICAPotassium [Moles/Vol]3.5 mmol/LLow3.7-5.1CWay[facility] on above:Order Comment: Specimen Type: BLOOD SPECIMENOrdering Facility: [facility] Address:[address] [place], [place] [address]Performed By: #### 69926-6, 15956-7 ####[facility] LABCLIA [id number] [place] [address] [place] [facility] GOD HOSPITALSodium [Moles/Vol]143 mmol/LHlucvu331-253IhfxaqipvUniversity Hospitals Parma Medical Center Comment on above:Order Comment: Specimen Type: BLOOD SPECIMENOrdering Facility: [facility] Address:[address] [place] [address] Performed By: #### 44330-6, 67346-9 ####[facility] LABIA [id number] [place] [address] [place] Urea nitrogen [Mass/Vol]15 mg/dLNormal9-24[facility] CenterComment on above:Order Comment: Specimen Type: BLOOD SPECIMENOrdering Facility: [facility] Address:[address] [place], [place] [address]Performed By: #### 09144-2, 50569-4 ####[facility] LABIA [id number] [place] [address] [place] AMERICACASE MANAGEMon 85-29-9201CNWB MANAGEMNormalUniversity Hospitals Parma Medical CenterCASE MANAGEMNormal [facility] Medical CenterCB W Auto Differential panel (Bld)on 07-06-2024 Basophils (Bld) [#/Vol]0.04 10*3/uLNormal<0.11CWay[facility] on above:Order Comment: Specimen Type: BLOOD SPECIMENOrdering Facility: [facility] Address:[address] [place] [address] Performed By: #### 12061-7 ####[facility] LABIA [id number] [place] [address] [place] Basophils/100 WBC (Bld)0.8 %NormalClermont County Hospital on above: Order Comment: Specimen Type: BLOOD SPECIMENOrdering Facility: [facility] Address:[address] [place], [place] [address]Performed By: #### 86857- 8 ####[facility] LABCLIA [id number] [place] [address] [place] AMERICADifferential cell count method Nom (Bld)AutoNormalCWayne HealthCare [facility] on above:Order Comment: Specimen Type: BLOOD SPECIMENOrdering Facility: [facility] Address:[address] [place], [place] [address]Performed By: #### 20899-7 ####[facility] LABCLIA [id number] [place] [address] [place] AMERICAEosinophils (Bld) [#/Vol]0.42 10*3/uLNormal<0.46[facility] on above:Order Comment: Specimen Type: BLOOD SPECIMENOrdering Facility: [facility] Address:[address] [place], [place] [address]Performed By: #### 14492-9 ####[facility] LABIA [id number] [place] [address] [place] AMERICAEosinophils/100 WBC (Bld)7.9 % NormalClermont County Hospital on above:Order Comment: Specimen Type: BLOOD SPECIMENOrdering Facility: [facility] Address:[address] [place], [place] [address]Performed By: #### 94343-2 ####[facility] LABIA [id number] [place] [address] [place] AMERICAErythrocyte distribution width (RBC) [Ratio]13.5 %Normal 11.5-15.0[facility] on above:Order Comment: Specimen Type: BLOOD SPECIMENOrdering Facility: [facility] Address:[address] [place], [place] [address]Performed By: #### 61060-9 ####[facility] LABCLIA [id number] [place] [address] [place] AMERICAHematocrit (Bld) [Volume fraction]37.4 %Low39.0-51.0 [facility] on above:Order Comment: Specimen Type: BLOOD SPECIMENOrdering Facility: [facility] Address:[address] [place], [place] [address]Performed By: #### 58149-4 ####[facility] LABCLIA [id number] [place] [address] [place] AMERICAHemoglobin (Bld) [Mass/Vol]12.0 g/dLLow13.0-17.0[facility] on above:Order Comment: Specimen Type: BLOOD SPECIMENOrdering Facility: [facility] Address:[address] [place], [place] [address]Performed By: #### 98052-3 ####[facility] LABIA [id number] [place] [address] [place] Immature granulocytes (Bld) [#/Vol]0.05 10*3/uLNormal<0.10[facility] Hospitalment on above:Order Comment: Specimen Type: BLOOD SPECIMENOrdering Facility: [facility] Address:[address] [place], [place] [address]Performed By: #### 34885-6 ####[facility] LABCLIA [id number] [place] [address] [place] Immature granulocytes/100 WBC (Bld)0.9 %NormalClermont County Hospital on above:Order Comment: Specimen Type: BLOOD SPECIMENOrdering Facility: [facility] Address:[address] [place] [address] Performed By: #### 97187-4 ####[facility] LABCLIA [id number] [place] [address] [place] Lymphocytes (Bld) [#/Vol]0.94 10*3/uLLow1.00-4.00[facility] Comment on above:Order Comment: Specimen Type: BLOOD SPECIMENOrdering Facility: [facility] Address:[address] [place] [address] Performed By: #### 24658-5 ####[facility] LABIA [id number] [address] STATES [facility] Lymphocytes/100 WBC (Bld)17.6 %NormalClermont County Hospital on above: Order Comment: Specimen Type: BLOOD SPECIMENOrdering Facility: [facility] Address:[address] [place], [place] [address]Performed By: #### 73295- 8 ####[facility] LABIA [id number] [address] (RBC) [Entitic mass]27.2 pg Ttqeeu88.0-34.0[facility] on above:Order Comment: Specimen Type: BLOOD SPECIMENOrdering Facility: [facility] Address:[address] [place], [place] [address]Performed By: #### 17379-8 ####[facility] LABIA [id number] [address]HC (RBC) [Mass/Vol]32.1 g/dL Rwjgbj97.5-36.0[facility] on above:Order Comment: Specimen Type: BLOOD SPECIMENOrdering Facility: [facility] Address:[address] [place], [place] [address]Performed By: #### 88913-0 ####[facility] LABIA [id number] [address] (RBC) [Entitic vol]84.8 fL Wstxnm78.0-100.0[facility] on above:Order Comment: Specimen Type: BLOOD SPECIMENOrdering Facility: [facility] Address:[address] [place], [place] [address]Performed By: #### 91992-0 ####[facility] LABIA [id number] [place] [address] [place] AMERICAMonocytes (Bld) [#/Vol]0.64 10*3/uLNormal<0.87[facility] on above:Order Comment: Specimen Type: BLOOD SPECIMENOrdering Facility: [facility] Address:[address] [place], [place] [address]Performed By: #### 35297-7 ####[facility] LABCLIA [id number] [place] [address] [place] AMERICAMonocytes/100 WBC (Bld)12.0 % NormalClermont County Hospital on above:Order Comment: Specimen Type: BLOOD SPECIMENOrdering Facility: [facility] Address:[address] [place], [place] [address]Performed By: #### 59364-9 ####[facility] LABCLIA [id number] [place] [address] [place] AMERICANeutrophils (Bld) [#/Vol]3.24 10*3/uLNormal1.45-7.50[facility] on above:Order Comment: Specimen Type: BLOOD SPECIMENOrdering Facility: [facility] Address:[address] [place], [place] [address]Performed By: #### 49890-9 ####[facility] LABCLIA [id number] [place] [address] [place] AMERICANeutrophils/100 WBC (Bld)60.8 %NormalClermont County Hospital on above:Order Comment: Specimen Type: BLOOD SPECIMENOrdering Facility: [facility] Address:[address] [place] [address] Performed By: #### 09061-7 ####[facility] LABCLIA [id number] [place] [address] [place] Nucleated RBC (Bld) [#/Vol]10*3/uLNormal<0.01[facility] on above:Order Comment: Specimen Type: BLOOD SPECIMENOrdering Facility: [facility] Address:[address] [place] [address] Performed By: #### 51923-1 ####[facility] LABCLIA [id number] [place] [address] [place] Nucleated RBC/100 WBC (Bld) [Ratio]0.0 /100 WBCNormalCWayne Hospital Comment on above:Order Comment: Specimen Type: BLOOD SPECIMENOrdering Facility: [facility] Address:[address] [place] [address] Performed By: #### 81586-4 ####[facility] LABCLIA [id number] [place] [address] [place] Platelet mean volume (Bld) [Entitic vol]12.9 fLHigh9.0-12.7CWayne HospitalComment on above:Order Comment: Specimen Type: BLOOD SPECIMENOrdering Facility: [facility] Address:[address] [place], [place] [address]Performed By: #### 76839-5 ####[facility] LABCLIA [id number] [place] [address] [place] Platelets (Bld) [#/Vol]133 10*3/kOUnf871-403KmmscggxlUniversity Hospitals Parma Medical CenterComment on above:Order Comment: Specimen Type: BLOOD SPECIMENOrdering Facility: [facility] Address:[address] [place], [place] [address]Performed By: #### 28260-7 ####[facility] LABCLIA [id number] [place] [address] [place] AMERICARBC (Bld) [#/Vol]4.41 10*6/uLNormal4.20-6.00[facility] on above:Order Comment: Specimen Type: BLOOD SPECIMENOrdering Facility: [facility] Address:[address] [place], [place] [address]Performed By: #### 34864-7 ####[facility] LABCLIA [id number] [place] [address] [place] AMERICAWBC (Bld) [#/Vol]5.33 10*3/uL Normal3.70-11.00[facility] on above:Order Comment: Specimen Type: BLOOD SPECIMENOrdering Facility: [facility] Address:[address] [place], [place] [address]Performed By: #### 36167-4 ####[facility] LABIA [id number] [place] [address] [place] AMERICABasophils (Bld) [#/Vol]0.10 10*3/uLNormal<0.11C[facility] on above:Order Comment: Specimen Type: BLOOD SPECIMENOrdering Facility: [facility] Address:[address] [place], [place] [address]Performed By: #### 70832-7 ####[facility] LABIA [id number] [place] [address] [place] AMERICABasophils/100 WBC (Bld)1.8 % NormalClermont County Hospital on above:Order Comment: Specimen Type: BLOOD SPECIMENOrdering Facility: [facility] Address:[address] [place], [place] [address]Performed By: #### 75076-2 ####[facility] LABIA [id number] [place] [address] [place] AMERICADifferential cell count method Nom (Bld)ManualNormalCWayne [facility]Care [facility] on above:Order Comment: Specimen Type: BLOOD SPECIMENOrdering Facility: [facility] Address:[address] [place], [place] [address]Performed By: #### 27285-2 ####[facility] LABIA [id number] [place] [address] [place] AMERICAEosinophils (Bld) [#/Vol]0.90 10*3/uLHigh<0.46[facility] Comment on above:Order Comment: Specimen Type: BLOOD SPECIMENOrdering Facility: [facility] Address:[address] [place] [address] Performed By: #### 04652-6 ####[facility] LABCLIA [id number] [place] [address] [place] Eosinophils/100 WBC (Bld)15.8 %NormalClermont County Hospital on above: Order Comment: Specimen Type: BLOOD SPECIMENOrdering Facility: [facility] Address:[address] [place], [place] [address]Performed By: #### 34790- 8 ####[facility] LABIA [id number] [place] [address] [place] AMERICAErythrocyte distribution width (RBC) [Ratio]14.0 %Ymjzuc39.5-15.0[facility] Hospitalment on above: Order Comment: Specimen Type: BLOOD SPECIMENOrdering Facility: [facility] Address:[address] [place], [place] [address]Performed By: #### 92378- 8 ####[facility] LABIA [id number] [place] [address] [place] AMERICAHematocrit (Bld) [Volume fraction]45.9 %Lmjjio57.0-51.0[facility] on above:Order Comment: Specimen Type: BLOOD SPECIMENOrdering Facility: [facility] Address:[address] [place], [place] [address]Performed By: #### 61115- 8 ####[facility] LABIA [id number] [place] [address] [place] AMERICAHemoglobin (Bld) [Mass/Vol]14.9 g/eVYtvaek90.0-17.0[facility] on above:Order Comment: Specimen Type: BLOOD SPECIMENOrdering Facility: [facility] Address:[address] [place], [place] [address]Performed By: #### 16432-2 ####[facility] LABIA [id number] [place] [address] [place] AMERICALymphocytes (Bld) [#/Vol]1.50 10*3/uLNormal1.00-4.00[facility] on above:Order Comment: Specimen Type: BLOOD SPECIMENOrdering Facility: [facility] Address:[address] [place], [place] [address]Performed By: #### 10705-6 ####[facility] LABIA [id number] [place] [address] [place] AMERICALymphocytes/100 WBC (Bld)26.3 % NormalClermont County Hospital on above:Order Comment: Specimen Type: BLOOD SPECIMENOrdering Facility: [facility] Address:[address] [place], [place] [address]Performed By: #### 80017-0 ####[facility] LABIA [id number] [place] [address] [place] AMERICAMCH (RBC) [Entitic mass]27.0 wqWamfym02.0-34.0[facility] on above:Order Comment: Specimen Type: BLOOD SPECIMENOrdering Facility: [facility] Address:[address] [place], [place] [address]Performed By: #### 65053-4 ####[facility] LABIA [id number] [place] [address] [place] MCHC (RBC) [Mass/Vol]32.5 g/oDLdfpak11.5-36.0[facility] on above:Order Comment: Specimen Type: BLOOD SPECIMENOrdering Facility: [facility] Address:[address] [place] [address] Performed By: #### 92881-2 ####[facility] LABIA [id number] [place] [address] [place] MCV (RBC) [Entitic vol]83.3 jBSoqigk62.0-100.0[facility] on above:Order Comment: Specimen Type: BLOOD SPECIMENOrdering Facility: [facility] Address:[address] [place] [address] Performed By: #### 49113-9 ####[facility] LABCLIA [id number] [place] [address] [place] Monocytes (Bld) [#/Vol]0.75 10*3/uLNormal<0.87[facility] on above:Order Comment: Specimen Type: BLOOD SPECIMENOrdering Facility: [facility] Address:[address] [place] [address] Performed By: #### 52997-6 ####[facility] LABCLIA [id number] [place] [address] [place] Monocytes/100 WBC (Bld)13.2 %NormalClermont County Hospital on above: Order Comment: Specimen Type: BLOOD SPECIMENOrdering Facility: [facility] Address:[address] [place], [place] [address]Performed By: #### [id number] ####[facility] LABCLIA [id number] [place] [address] [place] AMERICANeutrophils (Bld) [#/Vol]2.45 10*3/uLNormal1.45-7.50[facility] on above:Order Comment: Specimen Type: BLOOD SPECIMENOrdering Facility: [facility] Address:[address] [place], [place] [address]Performed By: #### [id number] ####[facility] LABCLIA [id number] [place] [address] [place]ICANeutrophils/100 WBC (Bld)42.9 % NormalClermont County Hospital on above:Order Comment: Specimen Type: BLOOD SPECIMENOrdering Facility: [facility] Address:[address] [place], [place] [address]Performed By: #### [id number] ####[facility] LABIA [id number] [place] [address] [place] AMERICANucleated RBC (Bld) [#/Vol]10*3/uLNormal<0.01[facility] on above:Order Comment: Specimen Type: BLOOD SPECIMENOrdering Facility: [facility] Address:[address] [place], [place] [address]Performed By: #### 63112-4 ####[facility] LABIA [id number] [place] [address] [place] Nucleated RBC/100 WBC (Bld) [Ratio]0.0 /100 WBCNormalCWayne Hospital Comment on above:Order Comment: Specimen Type: BLOOD SPECIMENOrdering Facility: [facility] Address:[address] [place] [address] Performed By: #### 00224-8 ####[facility] LABIA [id number] [place] [address] [place] Platelet mean volume (Bld) [Entitic vol]12.3 fLNormal9.0-12.7CWay[facility] on above:Order Comment: Specimen Type: BLOOD SPECIMENOrdering Facility: [facility] Address:[address] [place], [place] [address]Performed By: #### 24117-2 ####[facility] LABIA [id number] [place] [address] [place] Platelets (Bld) [#/Vol]158 10*3/zWXhsact848-486NbklulgyoClermont County Hospital on above:Order Comment: Specimen Type: BLOOD SPECIMENOrdering Facility: [facility] Address:[address] [place] [address] Performed By: #### 63412-4 ####[facility] LABCLIA [id number] [place] [address] [place] Platelets Estimate (Bld) [#/Vol]AdequateNormalCWayne HealthCare [facility] on above:Order Comment: Specimen Type: BLOOD SPECIMENOrdering Facility: [facility] Address:[address] [place] [address] Performed By: #### 81392-3 ####[facility] LABCLIA [id number] [place] [address] [place] Polychromasia LM Ql (Bld)SlightNormalCWayne HealthCare [facility] on above: Order Comment: Specimen Type: BLOOD SPECIMENOrdering Facility: [facility] Address:[address] [place], [place] [address]Performed By: #### 32513- 8 ####[facility] LABCLIA [id number] [place] [address] [place] AMERICARBC (Bld) [#/Vol]5.51 10*6/uL Normal4.20-6.00[facility] on above:Order Comment: Specimen Type: BLOOD SPECIMENOrdering Facility: [facility] Address:[address] [place], [place] [address]Performed By: #### 92703-9 ####[facility] LABCLIA [id number] [place] [address] [place] AMERICARED CELL MORPHReviewed: unremarkableNormalCWayne HealthCare [facility] on above:Order Comment: Specimen Type: BLOOD SPECIMENOrdering Facility: [facility] Address:[address] [place], [place] [address]Performed By: #### 06264-8 ####[facility] LABCLIA [id number] [place] [address] [place] AMERICAWBC (Bld) [#/Vol]5.71 10*3/uL Normal3.70-11.00[facility] on above:Order Comment: Specimen Type: BLOOD SPECIMENOrdering Facility: [facility] Address:[address] [place], [place] [address]Performed By: #### 78965-9 ####[facility] LABCLIA [id number] [place] [address] [place] AMERICACONSULT PROGon 40-28-2666TJJVHKR PROGNormalGenesis Hospital Cleohiohealth berger hospitalCONSULT PROGNormalUniversity Hospitals Parma Medical Center CRP SerPl-mCncon 95-85-2880KFY [Mass/Vol]11.4 mg/dLHigh<0.9CWayne [facility] on above:Order Comment: Specimen Type: BLOOD SPECIMENOrdering Facility: [facility] Address:[address] [place], [place] [address]Performed By: #### 73112-8, 2776-12, 1988-03, 3034-05 ####[facility] LABIA [id number] [place] [address] [place] AMERICACT ABD/PEL W IVCONon 10-80-6505BK ABD/PEL W IVCONNormal [facility] Parma Medical CenterMagnesium SerPl-mCncon 99-35-6367Wgsximndt [Mass/Vol] 2.1 mg/dLNormal1.7-2.3ClevelNovant Health Rowan Medical Centerment on above:Order Comment: Specimen Type: BLOOD SPECIMENOrdering Facility: [facility] Address:[address] [place], [place] [address]Performed By: #### 26767-3, 2776-12, 1988-03, 3034-05 ####[facility] LABCLIA [id number] [place] [address] [place] AMERICANURSING PROGon 80-64-1494ODACDBQ PROGNormalGenesis Hospital ClevelandNUTRITIONon 07-06-2024 NUTRITIONNormalCWayne HospitalPT panel Coag (PPP)on 85-94-0077FGD Coag (PPP) [Relative time]1.0 {INR}Normal0.9-1.3ClevelCone Health Wesley Long Hospital Comment on above:Order Comment: Specimen Type: BLOOD SPECIMENOrdering Facility: [facility] Address:[address] [place] [address]Mrxyec Comment: Vitamin K Antagonist (VKA) Therapeutic Range: INR 2 to 3 (Target INR of 2.5)Note: For patients treated with VKA drugs, such as warfarin, the [place] [employer] 2012 Guideline recommends [...] al. Chest 2012, 141:7S-47SNishimradha RA, et al. [facility] 2017, 70: 252-289Performed By: #### 22486-6, 46357-7 ####[facility] [id number] [place] [address] [place] AMERICAPT Coag (PPP) [Time] 11.0 sNormal9.7-13.0[facility] on above:Order Comment: Specimen Type: BLOOD SPECIMENOrdering Facility: [facility] Address:[address] [place], [place] [address]Performed By: #### 07520-5, 26536-2 ####[facility] [id number] [place] [address] [place] AMERICAPhosphate SerPl-mCncon 07-06-2024 Phosphate [Mass/Vol]2.1 mg/dLLow2.7-4.8CWay[facility] on above:Order Comment: Specimen Type: BLOOD SPECIMENOrdering Facility: [facility] Address:[address] [place], [place] [address]Performed By: #### 24793-4, 277-1, 1987-, 3034-6 ####[facility] LABCLIA [id number] [address] [address] [place] Prealb SerPl-mCncon 39-50-8100Kphxxbgtka [Mass/Vol]14 mg/vEGkw72-25ZrqprfiwoUniversity Hospitals Parma Medical CenterComuniversity of michigan health on above:Order Comment: Specimen Type: BLOOD SPECIMENOrdering Facility: [facility] Address:[address] [place], [place] [address]Performed By: #### 06876-9, 02971-2 ####[facility] LABCLIA [id number] [place] [address] [place] AMERICATHERAPY NTon 69-26-5217VCVXEQM NTNormalCWayne HospitalTHERAPY NTNormalCWayne HospitalTransferrin SerPl-mCncon 21-36-5660Gvbafnmacbg [Mass/Vol]184 mg/eRTbd935-469IpxsylnheUniversity Hospitals Parma Medical Center Comment on above:Order Comment: Specimen Type: BLOOD SPECIMENOrdering Facility: [facility] Address:[address] [place] [address] Performed By: #### 90849-6, 2777-1, 1987-, 3034-05 ####[facility] LABCLIA [id number] [place] [address] [place] AMERICAaPTT PPPon 09-26-0445lQAH Coag (PPP) [Time]26.2 sNormal 23.0-32.4CWayne HospitalComuniversity of michigan health on above:Order Comment: Specimen Type: BLOOD SPECIMENOrdering Facility: [facility] Address:[address] [place], [place] [address]Performed By: #### 58139-2, 40853-2 ####[facility] LABCLIA [id number] [place] [address] [place] AMERICACASE MANAGEMon 27-05-5571FOBC MANAGEMNormal [facility] Medical CenterCONSULTon 30-24-2549AZRDNLXAhsrflWmvxvqmdx Clinic ClevelandCONSULT PROGon 06-43-0121BWUDBRR PROGNormalUniversity Hospitals Parma Medical CenterPT EDon 54-58-3069GC EDNormalCKettering Health Main Campus panel Coag (PPP)on 48-30-4394SDS Coag (PPP) [Relative time]1.0 {INR}Normal0.9-1.3CWayne [facility] on above:Order Comment: Specimen Type: BLOOD SPECIMENOrdering Facility: [facility] Address:[address] [place] [id number] Comment: Vitamin K Antagonist (VKA) Therapeutic Range: INR 2 to 3 (Target INR of 2.5)Note: For patients treated with VKA drugs, such as warfarin, the [place] [employer] 2012 Guideline recommends [...] al. Chest 2012, 141:7S-47SNishsophia RA, et al. [facility] 2017, 70: 252-289Performed By: #### 82813-7, 43086-5 ####[facility] LABIA [id number] [place] [address] [place] [facility] GOD HOSPITALPT Coag (PPP) [Time] 10.7 sNormal9.7-13.0[facility] on above:Order Comment: Specimen Type: BLOOD SPECIMENOrdering Facility: [facility] Address[address] [place], [place] [address]Blsfcvacs By: #### 89400-1, 75041-7 ####[facility] LABIA [id number] [address] OF AMERICATHERAPY NTon 64-44-2505EOXQVXC NT NormalUniversity Hospitals Parma Medical CenterXR ABDOMEN 1V SUPINEon 36-66-4927PW ABDOMEN 1V SUPINENormalCWayne HospitalaPTT PPPon 75-61-8996wOUE Coag (PPP) [Time]28.2 uTihmzc02.0-32.4CWayne [facility]Care [facility] on above:Order Comment: Specimen Type: BLOOD SPECIMENOrdering Facility: [facility] Address:[address] [place], [place] [address]Performed By: #### 10755- 0, 14328-4 ####[facility] LABCLIA [id number] [place] [address] [place] [facility] [address] [facility] HOSPITALCBC panel Auto (Bld)on 43-02-4590Mtclwslkkts distribution width (RBC) [Ratio]14.2 %Uznysm40.5-15.0 [facility] Par[facility] Medical CenterComment on above:Order Comment: Specimen Type: BLOOD SPECIMENOrdering Facility: [facility] Address:[address] [place], [place] [address]Performed By: #### 23446-8 ####[facility] LABCLIA [id number] [address] STATES OF [address] JOHN OF GOD HOSPITALHematocrit (Bld) [Volume fraction]46.4 %Zyrcth64.0-51.0[facility] Parma Medical CenterComuniversity of michigan health on above:Order Comment: Specimen Type: BLOOD SPECIMENOrdering Facility: [facility] Address:[address] [place], [place] [address]Performed By: #### 27637-8 ####[facility] LABCLIA [id number] [place] [address] [place] Hemoglobin (Bld) [Mass/Vol]15.1 g/vJLwgfhi31.0-17.0[facility] Comment on above:Order Comment: Specimen Type: BLOOD SPECIMENOrdering Facility: [facility] Address:[address] [place] [address] Performed By: #### 65091-9 ####[facility] LABCLIA [id number] [place] [address] [place] MCH (RBC) [Entitic mass]27.3 buPvlkcp32.0-34.0[facility] on above:Order Comment: Specimen Type: BLOOD SPECIMENOrdering Facility: [facility] Address:[address] [place] [address] Performed By: #### 08283-1 ####[facility] [id number] [place] [address] [place] MCHC (RBC) [Mass/Vol]32.5 g/sQAyxfvi63.5-36.0[facility] on above:Order Comment: Specimen Type: BLOOD SPECIMENOrdering Facility: [facility] Address:[address] [place] [address] Performed By: #### 30716-4 ####[facility] [id number] [place] [address] [place] MCV (RBC) [Entitic vol]83.8 kVWkhdjk81.0-100.0[facility] on above:Order Comment: Specimen Type: BLOOD SPECIMENOrdering Facility: [facility] Address:[address] [place] [address] Performed By: #### 53386-2 ####[facility] [id number] [place] [address] [place] Nucleated RBC (Bld) [#/Vol]10*3/uLNormal<0.01[facility] on above:Order Comment: Specimen Type: BLOOD SPECIMENOrdering Facility: [facility] Address:[address] [place] [address] Performed By: #### 39854-5 ####[facility] [id number] [place] [address] [place] Platelet mean volume (Bld) [Entitic vol]11.6 fLNormal9.0-12.7CWay[facility] on above:Order Comment: Specimen Type: BLOOD SPECIMENOrdering Facility: [facility] Address:[address] [place], [place] [address]Performed By: #### 81263-7 ####[facility] LABCLIA [id number] [place] [address] [place] Platelets (Bld) [#/Vol]146 10*3/nBDhx410-424EnrdfwqwlClermont County Hospital on above:Order Comment: Specimen Type: BLOOD SPECIMENOrdering Facility: [facility] Address:[address] [place], [place] [address]Performed By: #### 27393-7 ####[facility] LABCLIA [id number] [place] [address] [place] AMERICARBC (Bld) [#/Vol]5.54 10*6/uLNormal4.20-6.00[facility] on above:Order Comment: Specimen Type: BLOOD SPECIMENOrdering Facility: [facility] Address:[address] [place], [place] [address]Performed By: #### 63379-5 ####[facility] LABCLIA [id number] [place] [address] [place] AMERICAWBC (Bld) [#/Vol]4.30 10*3/uL Normal3.70-11.00[facility] on above:Order Comment: Specimen Type: BLOOD SPECIMENOrdering Facility: [facility] Address:[address] [place], [place] [address]Performed By: #### 71438-1 ####[facility] LABCLIA [id number] [place] [address] [place] AMERICACONSULT PROGon 81-35-7563QGHNRZH PROGNormalUniversity Hospitals Parma Medical CenterComprehensive metabolic 2000 panelon 68-93-1481Aujdzph [Mass/Vol]3.8 g/dLLow3.9-4.9CWayne HospitalComuniversity of michigan health on above:Order Comment: Specimen Type: BLOOD SPECIMENOrdering Facility: [facility] Address:[address] [place] [address] Performed By: #### 06932-0, 76652-3, 2776- ####[facility] LABCLIA [id number] [place] [address] [place] AMERICAALP [Catalytic activity/Vol]89 U/DSfsbpd43-062NuvcwtyhkUniversity Hospitals Parma Medical Center Comment on above:Order Comment: Specimen Type: BLOOD SPECIMENOrdering Facility: [facility] Address:[address] [place] [address] Performed By: #### 38530-7, , 2776-12 ####[facility] LABCLIA [id number] [place] [address] [place] AMERICAALT [Catalytic activity/Vol]105 U/SJlac62-36IxjtmkiadUniversity Hospitals Parma Medical Center Comment on above:Order Comment: Specimen Type: BLOOD SPECIMENOrdering Facility: [facility] Address:[address] [place] [address] Performed By: #### 14895-9, , 2776-12 ####[facility] LABCLIA [id number] [place]IL[place] [address] [place] AMERICAAnion gap [Moles/Vol]16 mmol/LHigh8-15[facility] Medical CenterComuniversity of michigan health on above:Order Comment: Specimen Type: BLOOD SPECIMENOrdering Facility: [facility] Address:[address] [place] [address] Performed By: #### 29242-2, 95688-1, 2776-12 ####[facility] LABCLIA [id number] [address] [address] [place] AMERICAAST [Catalytic activity/Vol]53 U/YXwzb42-32PsnsspufhUniversity Hospitals Parma Medical Center Comment on above:Order Comment: Specimen Type: BLOOD SPECIMENOrdering Facility: [facility] Address:[address] [place], [place] [address]Result Comment: Results may be falsely increased due to interference from hemolysis. Suggest reorder as clinically indicated.Performed By: #### 59848-8, 57312-2, 2776- ####[facility] LABCLIA [id number] [place] [address] [place] AMERICABilirubin [Mass/Vol]1.1 mg/dL Normal0.2-1.3CWay[facility] on above:Order Comment: Specimen Type: BLOOD SPECIMENOrdering Facility: [facility] Address:[address] [place], [place] [address]Performed By: #### 86133-7, 13805-9, 2776-12 ####[facility] LABCLIA [id number][place] [address] [place] AMERICACalcium [Mass/Vol]9.3 mg/dLNormal 8.5-10.2CWay[facility] on above:Order Comment: Specimen Type: BLOOD SPECIMENOrdering Facility: [facility] Address:[address] [place], [place] [address]Performed By: #### 24211-1, 20205-4, 2776-12 ####[facility] LABCLIA [id number] [place]IL[place] [address] [place] AMERICAChloride [Moles/Vol]101 mmol/L Jglxeu90-147AjhnrimstClermont County Hospital on above:Order Comment: Specimen Type: BLOOD SPECIMENOrdering Facility: [facility] Address:[address] [place], [place] [address]Performed By: #### 26073-1, 37457-7, 2776-12 ####[facility] LABCLIA [id number] [address] [place] AMERICACO2 [Moles/Vol]19 mmol/TErs02-45 [facility] on above:Order Comment: Specimen Type: BLOOD SPECIMENOrdering Facility: [facility] Address:[address] [place] [id number] By: #### 01074-1, 10377-2, 2776-12 ####[facility] LABIA [id number] VILLE [address] [place] AMERICACreatinine [Mass/Vol]1.15 mg/dLNormal0.73-1.22 [facility] on above:Order Comment: Specimen Type: BLOOD SPECIMENOrdering Facility: [facility] Address:[address] [place], [place] [address]Performed By: #### 65317-2, , 2776-12 ####[facility] [id number][place] [address] [place] AMERICACreatinine and Glomerular filtration rate.predicted panel (S/P/Bld)86 mL/min/1.73m???Normal>=60[facility] on above:Order Comment: Specimen Type: BLOOD SPECIMENOrdering Facility: [facility] Address:[address] [place], [place] [address]Result Comment: Estimated Glomerular Filtration Rate (eGFR) is [...] accurately reflect actual GFR. Performed By: #### 57097-0, , 2776-12 ####[facility] [id number] VILLE [address] [place] AMERICAGlucose [Mass/Vol]119 mg/tJQdbv61-73ErjwgovjuClermont County Hospital on above:Order Comment: Specimen Type: BLOOD SPECIMENOrdering Facility: [facility] Address:[address] [place], [place] [address]Result Comment: The [place] Diabetes Association (ADA) provides guidance for cutoff [...] Standards of Medical Care in Diabetes 2016, [place] [employer]. Diabetes Care. 2016.39(Suppl 1).Performed By: #### 96938-6, 32084-3, 2776-12 ####[facility] LABST. [facility] [id number][place] [address] [place] AMERICAPotassium [Moles/Vol]4.5 mmol/LNormal3.7-5.1 [facility] on above:Order Comment: Specimen Type: BLOOD SPECIMENOrdering Facility: [facility] Address:[address] [place], [place] [address]Performed By: #### 28069-3, , 2776-12 ####[facility] LABST. [facility] [id number][place] [address] [place] AMERICAProtein [Mass/Vol]6.5 g/dLNormal6.3-8.0[facility] on above:Order Comment: Specimen Type: BLOOD SPECIMENOrdering Facility: [facility] Address:[address] [place], [place] [address]Performed By: #### 22784-8, 62334-4, 2776-12 ####[facility] [id number] [address] [place] AMERICASodium [Moles/Vol]136 mmol/LIgsiwq409-282OixrwkniwClermont County Hospital on above:Order Comment: Specimen Type: BLOOD SPECIMENOrdering Facility: [facility] Address:[address] [place], [place] [address]Performed By: #### 90594-4, 49378-1, 2777- ####[facility] LABCLIA [id number] [place]IL[place] [address] [place] AMERICAUrea nitrogen [Mass/Vol]17 mg/dLNormal9-24 [facility] on above:Order Comment: Specimen Type: BLOOD SPECIMENOrdering Facility: [facility] Address:[address] [place], [place] [address]Performed By: #### 14543-8, 17922-4, 2777- ####[facility] LABIA [id number] VILLE [address] [place] AMERICAMagnesium SerPl-mCncon 60-99-9940Xpldlinnc [Mass/Vol]1.9 mg/dLNormal1.7-2.3CWay[facility] on above:Order Comment: Specimen Type: BLOOD SPECIMENOrdering Facility: [facility] Address:[address] [place], [place] [address]Performed By: #### 01692- 8, 36485-1, 2777- ####[facility] LABIA [id number] VILLE [address] [place] AMERICANURSING PROGon 45-31-7336WDNYCWR PROGNormalUniversity Hospitals Parma Medical CenterNURSING PROGNormal University Hospit[facility] Parma Medical CenterNURSING PROGNormalUniversity Hospitals Parma Medical CenterPT panel Coag (PPP)on 29-22-3416PWU Coag (PPP) [Relative time]1.1 {INR}Normal0.9-1.3 [facility] on above:Order Comment: Specimen Type: BLOOD SPECIMENOrdering Facility: [facility] Address:[address] [place], [place] [address]Result Comment: Vitamin K Antagonist (VKA) Therapeutic Range: INR 2 to 3 (Target INR of 2.5)Note: For patients treated with VKA drugs, such as warfarin, the [place] [employer] 2012 Guideline recommends [...] al. Chest 2012, 141:7S-47SNishsophia RA, et al. [facility] 2017, 70: 252-289 Performed By: #### 47241-9, 78958-9 ####[facility] LABIA [id number] [place] [address] [place] PT Coag (PPP) [Time]11.4 sNormal9.7-13.0[facility] on above:Order Comment: Specimen Type: BLOOD SPECIMENOrdering Facility: [facility] Address:[address] [place], [place] [address]Performed By: #### 46362-9, 07784-0 ####[facility] [id number] [place] [address] [place] AMERICAPhosphate SerPl-mCnc on 49-37-8035Xbfpmfngn [Mass/Vol]4.4 mg/dLNormal2.7-4.8CWay[facility] on above:Order Comment: Specimen Type: BLOOD SPECIMENOrdering Facility: [facility] Address:[address] [place], [place] [address]Performed By: #### 31821-5, 11829-9, 2777-1 ####[facility] LABIA [id number][place] [address] [place] AMERICAXR ABDOMEN 1V SUPINEon 47-52-6768YD ABDOMEN 1V SUPINENormal [facility] Medical CenteraPTT PPPon 62-48-1648fCPI Coag (PPP) [Time]28.2 s Jsente61.0-32.4CWay[facility] on above:Order Comment: Specimen Type: BLOOD SPECIMENOrdering Facility: [facility] Address:[address] [place], [place] [address]Performed By: #### 14215-5, 33632-7 ####[facility] LABIA [id number] [address]CBC panel Auto (Bld)on 07-03-2024 Erythrocyte distribution width (RBC) [Ratio]14.5 %Sgymyb68.5-15.0[facility] on above:Order Comment: Specimen Type: BLOOD SPECIMENOrdering Facility: [facility] Address:[address] [place], [place] [address]Performed By: #### 97300-3 ####[facility] LABIA [id number] [address] [facility] OF GOD HOSPITALHematocrit (Bld) [Volume fraction]48.4 %Vltrhl21.0-51.0[facility] on above:Order Comment: Specimen Type: BLOOD SPECIMENOrdering Facility: [facility] Address:[address] [place], [place] [address]Performed By: #### 72138-3 ####[facility] LABIA [id number] [place] [address] [place] Hemoglobin (Bld) [Mass/Vol]15.7 g/wDCizaid87.0-17.0[facility] Comment on above:Order Comment: Specimen Type: BLOOD SPECIMENOrdering Facility: [facility] Address:[address] [place] [address] Performed By: #### [id number] ####[facility] [id number] [place] [address] [place] MCH (RBC) [Entitic mass]26.7 ekJecbrh84.0-34.0[facility] on above:Order Comment: Specimen Type: BLOOD SPECIMENOrdering Facility: [facility] Address:[address] [place] [address] Performed By: #### [id number] ####[facility] [id number] [place] [address] [place] MCHC (RBC) [Mass/Vol]32.4 g/lXFfoyqo24.5-36.0[facility] on above:Order Comment: Specimen Type: BLOOD SPECIMENOrdering Facility: [facility] Address:[address] [place] [address] Performed By: #### 29018-0 ####[facility] [id number] [place] [address] [place] MCV (RBC) [Entitic vol]82.5 gFHfohth47.0-100.0[facility] on above:Order Comment: Specimen Type: BLOOD SPECIMENOrdering Facility: [facility] Address:[address] [place] [address] Performed By: #### [id number] ####[facility] [id number] [place] [address] [place] Nucleated RBC (Bld) [#/Vol]10*3/uLNormal<0.01[facility] on above:Order Comment: Specimen Type: BLOOD SPECIMENOrdering Facility: [facility] Address:[address] [place] [address] Performed By: #### [id number] ####[facility] [id number] [place] [address] [place] mean volume (Bld) [Entitic vol]10.9 fLNormal9.0-12.7[facility] on above:Order Comment: Specimen Type: BLOOD SPECIMENOrdering Facility: [facility] Address:[address] [place], [place] [address]Performed By: #### 46805-9 ####[facility] LABIA [id number] [place] [address] [place] Platelets (Bld) [#/Vol]143 10*3/tAZlb397-899FpcvxjercClermont County Hospital on above:Order Comment: Specimen Type: BLOOD SPECIMENOrdering Facility: [facility] Address:[address] [place], [place] [address]Performed By: #### 97774-3 ####[facility] LABIA [id number] [place] [address] [place] AMERICARBC (Bld) [#/Vol]5.87 10*6/uLNormal4.20-6.00[facility] on above:Order Comment: Specimen Type: BLOOD SPECIMENOrdering Facility: [facility] Address:[address] [place], [place] [address]Performed By: #### 58934-8 ####[facility] [id number] [place] [address] [place] AMERICAWBC (Bld) [#/Vol]8.81 10*3/uL Normal3.70-11.00[facility] on above:Order Comment: Specimen Type: BLOOD SPECIMENOrdering Facility: [facility] Address:[address] [place], [place] [address]Performed By: #### 84411-2 ####[facility] [id number] [place] [address] [place] OF AMERICACONSULT PROGon 03-05-9249BMOFTUB PROGNormalUniversity Hospitals Parma Medical CenterComprehensive metabolic 2000 panelon 72-04-2230Krfmchg [Mass/Vol]3.8 g/dLLow3.9-4.9C[facility] on above:Order Comment: Specimen Type: BLOOD SPECIMENOrdering Facility: [facility] Address:[address] [place] [address] Performed By: #### 08401-5, 06517-1, 2776- ####[facility] LABCLIA [id number] AVENUEPALO VERDE HOSPITALK [address] [address] [place] AMERICAALP [Catalytic activity/Vol]95 U/BSlhnah20-182UltatjjjbUniversity Hospitals Parma Medical Center Comment on above:Order Comment: Specimen Type: BLOOD SPECIMENOrdering Facility: [facility] Address:[address] [place], [place] [address] Performed By: #### 67013-1, 26310-8, 2776- ####[facility] LABCLIA [id number] [address] [address] [place] AMERICAALT [Catalytic activity/Vol]133 U/THzkt52-97UkdkzwkkhUniversity Hospitals Parma Medical Center Comment on above:Order Comment: Specimen Type: BLOOD SPECIMENOrdering Facility: [facility] Address:[address] [place], [place] [address] Performed By: #### 15580-9, , 2776-12 ####[facility] LABCLIA [id number] [address] [address] [place] AMERICAAnion gap [Moles/Vol]13 mmol/LNormal8-15University [facility]als Parma Medical CenterComment on above:Order Comment: Specimen Type: BLOOD SPECIMENOrdering Facility: [facility] Address:[address] [place] [address] Performed By: #### 42843-3, , 2776-12 ####[facility] LABCLIA [id number] [address] [address] [place] AMERICAAST [Catalytic activity/Vol]70 U/JGhzu78-99PvczgwnbaUniversity Hospitals Parma Medical Center Comment on above:Order Comment: Specimen Type: BLOOD SPECIMENOrdering Facility: [facility] Address:[address] [place] [address] Performed By: #### 60297-6, 25532-0, 2776- ####[facility] LABCLIA [id number] [address] [place] AMERICABilirubin [Mass/Vol]1.1 mg/dLNormal0.2-1.3C[facility] Comment on above:Order Comment: Specimen Type: BLOOD SPECIMENOrdering Facility: [facility] Address:[address] [place] [address] Performed By: #### 79724-5, 25067-9, 2776- ####[facility] LABCLIA [id number], [place] [address] [place] AMERICACalcium [Mass/Vol]9.1 mg/dLNormal8.5-10.2ClevelCone Health Wesley Long Hospital Comment on above:Order Comment: Specimen Type: BLOOD SPECIMENOrdering Facility: [facility] Address:[address] [place] [address] Performed By: #### 31968-5, 95072-8, 2776-12 ####[facility] LABCLIA [id number], [place] [address] [place] AMERICAChloride [Moles/Vol]102 mmol/HQpmwgo04-305UpejmxvcwUniversity Hospitals Parma Medical Center Comment on above:Order Comment: Specimen Type: BLOOD SPECIMENOrdering Facility: [facility] Address:[address] [place] [address] Performed By: #### 95814-3, 28471-4, 2776-12 ####[facility] LABCLIA [id number][place] [address] [place] AMERICACO2 [Moles/Vol]21 mmol/MWib95-72HyoclkknhUniversity Hospitals Parma Medical CenterComment on above:Order Comment: Specimen Type: BLOOD SPECIMENOrdering Facility: [facility] Address:[address] [place], [place] [address]Performed By: #### 30388-3, 06868-2, 2776- ####[facility] LABCLIA [id number] VILLE [address] [place] Creatinine [Mass/Vol]1.05 mg/dLNormal0.73-1.22[facility] on above:Order Comment: Specimen Type: BLOOD SPECIMENOrdering Facility: [facility] Address:[address] [place] [address] Performed By: #### 66806-8, 94017-8, 2776-12 ####[facility] LABIA [id number] [address] [place] AMERICACreatinine and Glomerular filtration rate.predicted panel (S/P/Bld)96 mL/min/1.73m???Normal>=60[facility] on above:Order Comment: Specimen Type: BLOOD SPECIMENOrdering Facility: [facility] Address:[address] [place], [place] [address]Result Comment: Estimated Glomerular Filtration Rate (eGFR) is [...] not accurately reflect actual GFR.Performed By: #### 68135-4, , 2776-12 ####[facility] LABCLIA [id number] [address] [place] AMERICAGlucose [Mass/Vol]101 mg/dLHigh 74-99[facility] on above:Order Comment: Specimen Type: BLOOD SPECIMENOrdering Facility: [facility] Address:[address] [place], [place] [address]Lqqywy Comment: The [place] Diabetes Association (ADA) provides guidance for cutoff [...] Standards of Medical Care in Diabetes 2016, [employer]. Diabetes Care. 2016.39(Suppl 1).Performed By: #### 62359- 8, , 2776-12 ####[facility] LABCLIA [id number] [place] [address] [place] AMERICAPotassium [Moles/Vol] 3.9 mmol/LNormal3.7-5.1C[facility] on above:Order Comment: Specimen Type: BLOOD SPECIMENOrdering Facility: [facility] Address:[address] [place], [place] [address]Performed By: #### 41775-5, , 2776-12 ####[facility] LABIA [id number] [address] [place] AMERICAProtein [Mass/Vol]6.5 g/dLNormal 6.3-8.0[facility] on above:Order Comment: Specimen Type: BLOOD SPECIMENOrdering Facility: [facility] Address:[address] [place], [place] [address]Performed By: #### 20142-3, , 2776-12 ####[facility] LABIA [id number], [place] [address] [place] AMERICASodium [Moles/Vol]136 mmol/L Mgesay723-605UlbgvpcsmClermont County Hospital on above:Order Comment: Specimen Type: BLOOD SPECIMENOrdering Facility: [facility] Address:[address] [place], [place] [address]Performed By: #### 41924-1, , 2776-12 ####[facility] LABIA [id number] [address] [address] [place] AMERICAUrea nitrogen [Mass/Vol]11 mg/dL Normal9-24[facility] on above:Order Comment: Specimen Type: BLOOD SPECIMENOrdering Facility: [facility] Address:[address] [place], [place] [address]Performed By: #### 37389-4, 00192-3, 2777-1 ####[facility] LABCLIA [id number] [address] [place] AMERICAAlbumin [Mass/Vol]3.7 g/dLLow 3.9-4.9C[facility] on above:Order Comment: Specimen Type: BLOOD SPECIMENOrdering Facility: [facility] Address:[address] [place], [place] [address]Performed By: #### 82939-5 ####[facility] LABIA [id number] [place] [address] [place] AMERICAALP [Catalytic activity/Vol]86 U/ZHuhahe52-402QwdjzxdmaClermont County Hospital on above:Order Comment: Specimen Type: BLOOD SPECIMENOrdering Facility: [facility] Address:[address] [place], [place] [address]Result Comment: Results may be falsely decreased due to interference from hemolysis. Suggest reorder as clinically indicated.Performed By: #### 41925-9 ####[facility] LABCLIA [id number] [place] [address] [place]ALT [Catalytic activity/Vol]137 U/XAkzc18-10DnbzvakeqClermont County Hospital on above:Order Comment: Specimen Type: BLOOD SPECIMENOrdering Facility: [facility] Address:[address] [place], [place] [address]Result Comment: Results may be falsely increased due to interference from hemolysis. Suggest reorder as clinically indicated. Performed By: #### 36713-9 ####[facility] LABIA [id number] [place] [address] [place] Anion gap [Moles/Vol]11 mmol/LNormal8-15[facility] on above:Order Comment: Specimen Type: BLOOD SPECIMENOrdering Facility: [facility] Address:[address] [place], [place] [address]Performed By: #### 75926-1 ####[facility] LABCLIA [id number] [place] [address] [place] AMERICAAST [Catalytic activity/Vol]118 U/UHzaz48-29LtoznqyswUniversity Hospitals Parma Medical CenterComuniversity of michigan health on above:Order Comment: Specimen Type: BLOOD SPECIMENOrdering Facility: [facility] Address:[address] [place], [place] [address]Result Comment: Results may be falsely increased due to interference from hemolysis. Suggest reorder as clinically indicated.Performed By: #### 56335-3 ####[facility] LABIA [id number] [place] [address] [place] AMERICABilirubin [Mass/Vol]1.0 mg/dLNormal0.2-1.3C[facility] Comment on above:Order Comment: Specimen Type: BLOOD SPECIMENOrdering Facility: [facility] Address:[address] [place] [address] Performed By: #### 00396-3 ####[facility] LABIA [id number] [place] [address] [place] Calcium [Mass/Vol]8.8 mg/dLNormal8.5-10.2CWayne HospitalComuniversity of michigan health on above:Order Comment: Specimen Type: BLOOD SPECIMENOrdering Facility: [facility] Address:[address] [place], [place] [address]Performed By: #### 75957-6 ####[facility] LABIA [id number] [place] [address] [place] AMERICAChloride [Moles/Vol] 100 mmol/NPnhgyh72-648ZrsnzhsjtUniversity Hospitals Parma Medical CenterComuniversity of [facility] health on above:Order Comment: Specimen Type: BLOOD SPECIMENOrdering Facility: [facility] Address:[address] [place], [place] [address]Performed By: #### 31878-2 ####[facility] LABCLIA [id number] [place] [address] [place] AMERICACO2 [Moles/Vol]20 mmol/XYau19-87 [facility] on above:Order Comment: Specimen Type: BLOOD SPECIMENOrdering Facility: [facility] Address:[address] [place], [place] [address]Performed By: #### 77021-3 ####[facility] LABST[facility] [id number] [place] [address] [facility] GOD HOSPITALCreatinine [Mass/Vol]0.98 mg/dLNormal0.73-1.22[facility] Comment on above:Order Comment: Specimen Type: BLOOD SPECIMENOrdering Facility: [facility] Address:[address] [place] [address] Performed By: #### 17341-5 ####[facility] [id number] [place] [address] [place] Creatinine and Glomerular filtration rate.predicted panel (S/P/Bld)104 mL/min/1.73m???Normal>=60[facility] on above:Order Comment: Specimen Type: BLOOD SPECIMENOrdering Facility: [facility] Address:[address] [place], [place] [address]Result Comment: Estimated Glomerular Filtration Rate (eGFR) is [...] not accurately reflect actual GFR.Performed By: #### 26849-9 ####[facility] LABIA [id number] [place] [address] [place] AMERICAGlucose [Mass/Vol]94 mg/dLNormal 74-99[facility] on above:Order Comment: Specimen Type: BLOOD SPECIMENOrdering Facility: [facility] Address:[address] [place], [place] [address]Result Comment: The [place] Diabetes Association (ADA) provides guidance for cutoff [...] Standards of Medical Care in Diabetes 2016, [place] [employer]. Diabetes Care. 2016.39(Suppl 1).Performed By: #### 22520-2 ####[facility] LABIA [id number] [place] [address] [place] AMERICAPotassium [Moles/Vol]Normal [facility] on above:Order Comment: Specimen Type: BLOOD SPECIMENOrdering Facility: [facility] Address:[address] [place], [place] [address]Result Comment: Unable to assay due to interference from hemolysis. Suggest reorder as clinically indicated.Performed By: #### 20360-9 ####[facility] LABIA [id number] [place] [address] [place] AMERICAProtein [Mass/Vol]6.5 g/dLNormal 6.3-8.0[facility] on above:Order Comment: Specimen Type: BLOOD SPECIMENOrdering Facility: [facility] Address:[address] [place], [place] [address]Performed By: #### 20429-0 ####[facility] LABIA [id number] [place] [address] [place] AMERICASodium [Moles/Vol]131 mmol/WJju243-493OmvjvhapgClermont County Hospital on above:Order Comment: Specimen Type: BLOOD SPECIMENOrdering Facility: [facility] Address:[address] [place], [place] [address]Performed By: #### 63658-4 ####[facility] LABCLIA [id number] [place] [address] [place] Urea nitrogen [Mass/Vol]11 mg/dLNormal9-24[facility] on above:Order Comment: Specimen Type: BLOOD SPECIMENOrdering Facility: [facility] Address:[address] [place], [place] [address]Performed By: #### 69346-9 ####[facility] LABCLIA [id number] [place] [address] [place] AMERICAECG COMPLETEon 67-25-9970KBK COMPLETENormalCMercy Health Tiff[facility] and Carbon monoxide panel (BldV)on 82-97-5233RHIJ DEFICIT, VENOUS-1 mmol/KMrmanq-6-7CgdahasmwClermont County Hospital on above:Order Comment: Specimen Type: VENOUS BLOOD SPECIMENOrdering Facility: [facility] Address: [address] [place], [place] [address]Performed By: #### 78236-0 ####[facility] LABCLIA [id number] [place] [address] [place] AMERICABody qawszsqbveo87.6 [degF]NormalClermont County Hospital on above:Order Comment: Specimen Type: VENOUS BLOOD SPECIMENOrdering Facility: [facility] Address: [address] [place] [address] Performed By: #### 25098-4 ####[facility] LABCLIA [id number] [place] [address] [place] Calcium.ionized (Bld) [Mass/Vol]1.27 mmol/LNormal1.08-1.30[facility] on above:Order Comment: Specimen Type: VENOUS BLOOD SPECIMENOrdering Facility: [facility] Address: [address] [place], [place] [address]Performed By: #### 42220-8 ####[facility] LABCLIA [id number] [place] [address] [place] AMERICACalcium.ionized adjusted to pH 7.4 (BldA) [Moles/Vol]1.25 mmol/LNormal 1.08-1.30[facility] on above:Order Comment: Specimen Type: VENOUS BLOOD SPECIMENOrdering Facility: [facility] Ad dress: [address] [place], [place] [address]Performed By: #### 17326-0 ####[facility] [place] [id number] [place] [address] [place] AMERICACarboxyhemoglobin (BldV) [Mass fraction]1.8 %Normal0.0-2.0[facility] on above:Order Comment: Specimen Type: VENOUS BLOOD SPECIMENOrdering Facility: [facility] Address: [address] [place], [place] [address]Result Comment: Carboxyhemoglobin Reference Range for Smokers: 2.0-8.0%Performed By: #### 43645- 4 ####[facility] [place] [id number] [place] [address] [place] AMERICACO2 (BldV) [Partial pressure]42 mm[Hg]Toxkcu89-71NkbwjnzufClermont County Hospital on above:Order Comment: Specimen Type: VENOUS BLOOD SPECIMENOrdering Facility: [facility] Address: [address] [place], [place] [address]Performed By: #### 12579-7 ####[facility] [place] [id number] [place] [address] [place] AMERICAGlucose [Mass/Vol]110 mg/yXNcey12-469KvljsetynClermont County Hospital on above:Order Comment: Specimen Type: VENOUS BLOOD SPECIMENOrdering Facility: [facility] Address: [address] [place], [place] [address]Performed By: #### 07769-4 ####[facility] [place] [id number] [place] [address] [place] AMERICAHCO3 (Bld) [Moles/Vol] 24 mmol/KHearlo65-94ZgpsatjusClermont County Hospital on above:Order Comment: Specimen Type: VENOUS BLOOD SPECIMENOrdering Facility: [facility] Address: [address] [place], [place] [address]Performed By: #### 73985-9 ####[facility] LABCLIA [id number] [place] [address] [place] AMERICAHematocrit (Bld) [Volume fraction]50.2 %Lyntod48.0-51.0[facility] on above:Order Comment: Specimen Type: VENOUS BLOOD SPECIMENOrdering Facility: [facility] Address: [address] [place] [address] Performed By: #### 36226-9 ####[facility] LABIA [id number] [place] [address] [place] Hemoglobin (Bld) [Mass/Vol]16.4 g/iICzzxyz41.0-17.0[facility] Comment on above:Order Comment: Specimen Type: VENOUS BLOOD SPECIMENOrdering Facility: [facility] Address: [address] [place], [place] [address]Performed By: #### 23206-1 ####[facility] LABIA [id number] [place] [address] [place] Lactate [Moles/Vol]0.9 mmol/LNormal0.5-2.2C[facility] on above:Order Comment: Specimen Type: VENOUS BLOOD SPECIMENOrdering Facility: [facility] Address: [address] [place] [address] Performed By: #### 53016-4 ####[facility] LABIA [id number] [place] [address] [place] LITERS2 Liters/minNormalClevelCone Health Wesley Long HospitalComuniversity of michigan health on above:Order Comment: Specimen Type: VENOUS BLOOD SPECIMENOrdering Facility: [facility] Address: [address] [place], [place] [address]Performed By: #### 12309-1 ####[facility] LABCLIA [id number] [place] [address] [place] AMERICAMethemoglobin (Bld) [Mass fraction]1.4 %Normal0.0-1.5C[facility] on above: Order Comment: Specimen Type: VENOUS BLOOD SPECIMENOrdering Facility: [facility] Address: [address] [place], [place] [address]Performed By: #### 52552-3 ####[facility] LABIA [id number] [address] STATES OF AMERICAO2 THERAPYNC = Nasal CannulaNormalCWayne HealthCare [facility] on above:Order Comment: Specimen Type: VENOUS BLOOD SPECIMENOrdering Facility: [facility] Ad dress: [address] [place], [place] [address]Performed By: #### 21059-0 ####[facility] LABIA [id number] [place] [address] [place] AMERICAOxygen (BldV) [Partial pressure] 55 mm[Hg]Sefs15-59YkqyigjwcClermont County Hospital on above:Order Comment: Specimen Type: VENOUS BLOOD SPECIMENOrdering Facility: [facility] Address: [address] [place], [place] [address]Performed By: #### 40089-5 ####[facility] LABIA [id number] [place] [address] [place] AMERICAOxygen saturation in Venous blood85 %Ipsids28-36UwusnviyhClermont County Hospital on above:Order Comment: Specimen Type: VENOUS BLOOD SPECIMENOrdering Facility: [facility] Address: [address] [place], [place] [address]Performed By: #### 17831-6 ####[facility] LABIA [id number] [place] [address] [place] AMERICAOxyhemoglobin (BldV) [Mass fraction]83 %Pzhlti74-42VxbvzhoovClermont County Hospital on above:Order Comment: Specimen Type: VENOUS BLOOD SPECIMENOrdering Facility: [facility] Address: [address] [place], [place] [address]Performed By: #### 53351-4 ####[facility] LABCLIA [id number] [place] [address] [place] AMERICApH (BldV)7.37 [pH] Normal7.32-7.42[facility] on above:Order Comment: Specimen Type: VENOUS BLOOD SPECIMENOrdering Facility: [facility] Address: [address] [place], [place] [address]Performed By: #### 11910-7 ####[facility] LABIA [id number] [place] [address] [place] AMERICAPotassium [Moles/Vol] 3.7 mmol/LNormal3.5-5.0[facility] on above:Order Comment: Specimen Type: VENOUS BLOOD SPECIMENOrdering Facility: [facility] Address: [address] [place], [place] [address]Performed By: #### 58372-2 ####[facility] LABIA [id number] [place] [address] [place] AMERICASodium [Moles/Vol]135 mmol/XKic684-209VmkmuaqfiClermont County Hospital on above:Order Comment: Specimen Type: VENOUS BLOOD SPECIMENOrdering Facility: [facility] Address: [address] [place], [place] [address]Performed By: #### 96165-3 ####[facility] LABIA [id number] [place] [address] [place] AMERICABASE DEFICIT, VENOUS-1 mmol/ZImuaax-5-8JvoinanduClermont County Hospital on above:Order Comment: Specimen Type: VENOUS BLOOD SPECIMENOrdering Facility: [facility] Address: [address] [place], [place] [address]Performed By: #### 20638-9 ####[facility] LABCLIA [id number] [place] [address] [place] AMERICABody lrgngfmpiga09.78 [degF]NormalClermont County Hospital on above:Order Comment: Specimen Type: VENOUS BLOOD SPECIMENOrdering Facility: [facility] Ad dress: [address] [place], [place] [address]Performed By: #### 59844-0 ####[facility] LABCLIA [id number] [place] [address] [place] AMERICACalcium.ionized (Bld) [Mass/Vol] 1.09 mmol/LNormal1.08-1.30[facility] on above:Order Comment: Specimen Type: VENOUS BLOOD SPECIMENOrdering Facility: [facility] Address: [address] [place], [place] [address]Performed By: #### 42222-9 ####[facility] LABIA [id number] [place] [address] [place] AMERICACalcium.ionized adjusted to pH 7.4 (BldA) [Moles/Vol]1.07 mmol/LLow1.08-1.30[facility] on above:Order Comment: Specimen Type: VENOUS BLOOD SPECIMENOrdering Facility: [facility] Address: [address] [place], [place] [address]Performed By: #### 36829-2 ####[facility] LABIA [id number] [place] [address] [place] AMERICACarboxyhemoglobin (BldV) [Mass fraction]1.7 %Normal0.0-2.0[facility] on above:Order Comment: Specimen Type: VENOUS BLOOD SPECIMENOrdering Facility: [facility] Address: [address] [place], [place] [address]Result Comment: Carboxyhemoglobin Reference Range for Smokers: 2.0-8.0%Performed By: #### 68504-4 ####[facility] LABCLIA [id number] [address] [address] [place] (BldV) [Partial pressure]42 mm[Hg]Fuvgts98-04OvnwvumwqClermont [facility] Hospital on above:Order Comment: Specimen Type: VENOUS BLOOD SPECIMENOrdering Facility: [facility] Address: [address] [place], [place] [address]Performed By: #### [id number] ####[facility] LABCLIA [id number] [address] [address] [place] adjusted to patient's actual temperature (BldV) [Partial pressure]42 jvOzNhynad47-81SslxjqhvwClermont County Hospital on above:Order Comment: Specimen Type: VENOUS BLOOD SPECIMENOrdering Facility: [facility] Address: [address] [place], [place] [address]Performed By: #### [id number] ####[facility] LABIA [id number] [place] [id number] [place] AMERICADATE/TIME NOTIFIED [id number] AMNormalClermont County Hospital on above:Order Comment: Specimen Type: VENOUS BLOOD SPECIMENOrdering Facility: [facility] Address: [address] [place], [place] [address]Performed By: #### 92939-7 ####[facility] LABIA [id number] [address] [address] [place] OF AMERICAGlucose [Mass/Vol]106 mg/zRFzid25-018PrzzvkmpvClermont County Hospital on above:Order Comment: Specimen Type: VENOUS BLOOD SPECIMENOrdering Facility: [facility] Address: [address] [place], [place] [address]Performed By: #### 96100-1 ####[facility] LABCLIA [id number] [address] [address] [place] AMERICAHCO3 (Bld) [Moles/Vol] 23 mmol/VZbm57-35QzjfdmynjClermont County Hospital on above:Order Comment: Specimen Type: VENOUS BLOOD SPECIMENOrdering Facility: [facility] Address: [address] [place], [place] [address]Performed By: #### 47454-9 ####[facility] [id number] [place] [address] [place] AMERICAHematocrit (Bld) [Volume fraction]47.1 %Owywwz28.0-51.0[facility] Medical CenterComment on above:Order Comment: Specimen Type: VENOUS BLOOD SPECIMENOrdering Facility: [facility] Address: [address] [place] [address] Performed By: #### 35447-6 ####[facility] [id number] [place] [address] [place] Hemoglobin (Bld) [Mass/Vol]15.4 g/qFWrevtf81.0-17.0[facility] Comment on above:Order Comment: Specimen Type: VENOUS BLOOD SPECIMENOrdering Facility: [facility] Address: [address] [place], [place] [address]Performed By: #### 79014-6 ####[facility] [id number] [place] [address] [place] Lactate [Moles/Vol]1.4 mmol/LNormal0.5-2.2CWayne HospitalComment on above:Order Comment: Specimen Type: VENOUS BLOOD SPECIMENOrdering Facility: [facility] Address: [address] [place] [address] Performed By: #### 57489-0 ####[facility] [id number] [place] [address] [place] Methemoglobin (Bld) [Mass fraction]1.3 %Normal0.0-1.5CWayne Hospital Comment on above:Order Comment: Specimen Type: VENOUS BLOOD SPECIMENOrdering Facility: [facility] Address: [address] [place], [place] [address]Performed By: #### 19338-9 ####[facility] LABCLIA [id number] [address] [address] [place] NOTIFIED WHOMS Terence DUARTE G[address] [facility] on above:Order Comment: Specimen Type: VENOUS BLOOD SPECIMENOrdering Facility: [facility] Address: [address] [place], [place] [address] Performed By: #### 42619-0 ####[facility] LABCLIA [id number] [place] [address] [place] O2 THERAPYRA=Room AirKettering Health on above:Order Comment: Specimen Type: VENOUS BLOOD SPECIMENOrdering Facility: [facility] Address: [address] [place], [place] [address]Performed By: #### 22250-5 ####[facility] LABCLIA [id number] [place] [address] [place] AMERICAOxygen (BldV) [Partial pressure]62 mm[Hg]Mmhi95-64VuzpiyxmaClermont County Hospital on above:Order Comment: Specimen Type: VENOUS BLOOD SPECIMENOrdering Facility: [facility] Address: [address] [place], [place] [address]Performed By: #### 29332-5 ####[facility] LABCLIA [id number] [place] [address] [place] AMERICAOxygen adjusted to patient's actual temperature (BldV) [Partial pressure]63 nyToGwhn83-73PhbfltkyuClermont County Hospital on above:Order Comment: Specimen Type: VENOUS BLOOD SPECIMENOrdering Facility: [facility] Address: [address] [place], [place] [address]Performed By: #### 80630-6 ####[facility] LABCLIA [id number] [address] [address] [place] AMERICAOxygen saturation in Venous blood91 %Ttfw26-01UxhiiephxUniversity Hospitals Parma Medical Center Comment on above:Order Comment: Specimen Type: VENOUS BLOOD SPECIMENOrdering Facility: [facility] Address: [address] [place], [place] [address]Performed By: #### 60072-9 ####[facility] LABCLIA [id number] [place] [address] [place] Oxyhemoglobin (BldV) [Mass fraction]89 %Obob06-24HbapzknpwUniversity Hospitals Parma Medical Center Comment on above:Order Comment: Specimen Type: VENOUS BLOOD SPECIMENOrdering Facility: [facility] Address: [address] [place], [place] [address]Performed By: #### 29187-4 ####[facility] LABIA [id number] [place] [address] [place] pH (BldV)7.37 [pH]Normal7.32-7.42[facility] Parma Medical CenterComment on above: Order Comment: Specimen Type: VENOUS BLOOD SPECIMENOrdering Facility: [facility] Address: [address] [place], [place] [address]Performed By: #### 93452-1 ####[facility] LABCLIA [id number] [place] [address] [place] AMERICApH adjusted to patient's actual temperature (BldV)7.03Wqyovu7.32-7.42[facility] Comment on above:Order Comment: Specimen Type: VENOUS BLOOD SPECIMENOrdering Facility: [facility] Address: [address] [place], [place] [address]Performed By: #### 52606-9 ####[facility] LABCLIA [id number] [place] [address] [place] Potassium [Moles/Vol]NormalUniversity Hospitals Parma Medical CenterComment on above:Order Comment: Specimen Type: VENOUS BLOOD SPECIMENOrdering Facility: [facility] Address: [address] [place], [place] [address]Result Comment: Unable to assay due to interference from hemolysis. Suggest reorder as clinically in dicated.Performed By: #### 70755-1 ####[facility] LABCLIA [id number] [place] [address] [place] Sodium [Moles/Vol]126 mmol/HRro175-964VxcizlvfkClermont County Hospital on above:Order Comment: Specimen Type: VENOUS BLOOD SPECIMENOrdering Facility: [facility] Address: [address] [place] [address] Performed By: #### 15102-1 ####[facility] [id number] [place] [address] [place] HISTORY PHYSICALon 58-60-4237IDXIPTV PHYSICALNormalCWayne Hospital MEDICAL EMERon 41-66-4326DSAPKCX EMERNormalCWayne HospitalMagnesium SerPl-mCncon 67-62-6561Cntdychit [Mass/Vol]1.8 mg/dLNormal1.7-2.3CWayne HealthCare [facility] on above:Order Comment: Specimen Type: BLOOD SPECIMENOrdering Facility: [facility] Address:[address] [place], [place] [address]Performed By: #### 30221-4, 17607-7, 2777-1 ####[facility] [place] [id number] [address] [place] AMERICAPT panel Coag (PPP)on 23-20-6339DMQ Coag (PPP) [Relative time]1.0 {INR}Normal0.9-1.3CWayne HealthCare Main Campus on above: Order Comment: Specimen Type: BLOOD SPECIMENOrdering Facility: [facility] Address:[address] [place], [place] [address]Result Comment: Vitamin K Antagonist (VKA) Therapeutic Range: INR 2 to 3 (Target INR of 2.5)Note: For patients treated with VKA drugs, such as warfarin, the [employer] 2012 Guideline recommends [...] al. Chest 2012, 141:7S-47SAdriana RA, et al. [facility] 2017, 70: 252-289Performed By: #### 35766-4, 67643-0 ####[facility] LABCLIA [id number] [place] [address] [place] AMERICAPT Coag (PPP) [Time] 11.0 sNormal9.7-13.0[facility] Par[facility] Medical CenterComuniversity of michigan health on above:Order Comment: Specimen Type: BLOOD SPECIMENOrdering Facility: [facility] Address:[address] [place], [place] [address]Performed By: #### 42538-8, 33491-1 ####[facility] LABCLIA [id number] [address] STATES OF AMERICAINR Coag (PPP) [Relative time]1.0 {INR}Normal0.9-1.3CWayne HospitalComuniversity of michigan health on above:Order Comment: Specimen Type: BLOOD SPECIMENOrdering Facility: [facility] Address:[address] [place], [place] [address]Result Comment: Vitamin K Antagonist (VKA) Therapeutic Range: INR 2 to 3 (Target INR of 2.5)Note: For patients treated with VKA drugs, such as warfarin, the [employer] 2012 Guideline recommends [...] al. Chest 2012, 141:7S-47SNishimura RA, et al. [facility] 2017, 70: 252-289Performed By: #### 63369-4 ####[facility] LABCLIA [id number] [place] [address] [place] AMERICAPT Coag (PPP) [Time] 11.0 sNormal9.7-13.0[facility] Medical CenterComment on above:Order Comment: Specimen Type: BLOOD SPECIMENOrdering Facility: [facility] Address:[address] [place], [place] [address]Performed By: #### 56882-0 ####[facility] LABIA [id number] [place] [address] [place] AMERICAPhosphate SerPl-mCncon 07-03-2024 Phosphate [Mass/Vol]3.0 mg/dLNormal2.7-4.8CWayne HospitalComment on above:Order Comment: Specimen Type: BLOOD SPECIMENOrdering Facility: [facility] Address:[address] [place], [place] [address]Performed By: #### 69870-8, 60912-2, 2777-1 ####[facility] LABIA [id number] [address] [place] STAPHYLOCOCCUS AUREUS AND MRSA SCREEN, PCR, NASALon 07-03-2024S. aureus and MRSA panel GERMÁN+probe (Nose)Not detectedNormalNot DetectedUniversity Hospitals Parma Medical Center Comment on above:Order Comment: Specimen Type: SWABOrdering Facility: [facility] Address: [address] [place], [place] [address]Performed By: #### SAPCR ####[facility] LABCLIA [id number] [place] [address] [place] AMERICATHERAPY NTon 04-94-8911WEUGQNK NTNormalCWayne HospitalXR ABDOMEN 1V SUPINEon 16-24-4771DV ABDOMEN 1V SUPINENormalClevelCone Health Wesley Long HospitalXR ABDOMEN 1V SUPINENormalCWayne HospitalXR CHEST 1V FRONTAL PORTon 73-90-6848JO CHEST 1V FRONTAL PORTNormalCWayne HospitalaPTT PPPon 81-85-5502yRTZ Coag (PPP) [Time]28.1 oTypxom08.0-32.4ClevelCleveland Clinic [facility] on above:Order Comment: Specimen Type: BLOOD SPECIMENOrdering Facility: [facility] Address:[address] [place], [place] [address]Performed By: #### 99456-5, 91080-5 ####[facility] LABCLIA [id number] [place] [address] [place] AMERICABasic metabolic 2000 panelon 64-43-1192Regan gap [Moles/Vol]16 mmol/LHigh8-15[facility] on above:Order Comment: Specimen Type: BLOOD SPECIMENOrdering Facility: [facility] Address:[address] [place], [place] [address]Performed By: #### 50233-0, 66300-7, 53093-2, 2777-1 ####[facility] LABIA [id number] [place] [address] [place] AMERICACalcium [Mass/Vol]8.8 mg/dLNormal8.5-10.2CWayne HealthCare [facility] on above:Order Comment: Specimen Type: BLOOD SPECIMENOrdering Facility: [facility] Address:[address] [place], [place] [address]Performed By: #### 61499-6, 52891-5, 22586-0, 2777-1 ####[facility] LABIA [id number] [place] [address] [place] AMERICAChloride [Moles/Vol]101 mmol/L Lddblr94-383YevixpcfyClermont County Hospital on above:Order Comment: Specimen Type: BLOOD SPECIMENOrdering Facility: [facility] Address:[address] [place], [place] [address]Performed By: #### 16811-7, 80276-9, , 2776-12 ####[facility] LABIA [id number] [place] [address] [place] AMERICACO2 [Moles/Vol]18 mmol/XPcv81-96 [facility] on above:Order Comment: Specimen Type: BLOOD SPECIMENOrdering Facility: [facility] Address:[address] [place], [place] [address]Performed By: #### 54383-3, 30249-6, , 2776-12 ####[facility] [id number] [place] [address] [place] AMERICACreatinine [Mass/Vol]0.99 mg/dL Normal0.73-1.22[facility] on above:Order Comment: Specimen Type: BLOOD SPECIMENOrdering Facility: [facility] Address:[address] [place], [place] [address]Performed By: #### 40692-1, 37271-0, , 2776-12 ####[facility] [id number] [place] [address] [place] AMERICACreatinine and Glomerular filtration rate.predicted panel (S/P/Bld)103 mL/min/1.73m???Normal >=60[facility] on above:Order Comment: Specimen Type: BLOOD SPECIMENOrdering Facility: [facility] Address:[address] [place], [place] [address]Result Comment: Estimated Glomerular Filtration Rate (eGFR) is calculated using the 2020 CKD-EPI creatinine equation. This equation utilizes serum creatinine, sex, and age as parameters. The creatinine assay has traceable calibration to isotope dilution-mass spectrometry. Refer to KDIGO guidelines for clinical interpretation. In patients with unstable renal function, e.g. those with acute kidney injury, the eGFR may not accurately reflect actual GFR.Performed By: #### 77662-6, 80429-9, , 2776-12 ####[facility] LABCLIA [id number] [address] [address] [place] AMERICAGlucose [Mass/Vol]91 mg/dLNormal 74-99[facility] on above:Order Comment: Specimen Type: BLOOD SPECIMENOrdering Facility: [facility] Address:[address] [place], [place] [address]Result Comment: The [place] Diabetes Association (ADA) provides guidance for cutoff [...] Standards of Medical Care in Diabetes 2016, [place] [employer]. Diabetes Care. 2016.39(Suppl 1).Performed By: #### 23276- 2, 17401-1, , 2776-12 ####[facility] LABCLIA [id number] [place] [address] [place] Potassium [Moles/Vol]NormalClermont County Hospital on above:Order Comment: Specimen Type: BLOOD SPECIMENOrdering Facility: [facility] Address:[address] [place], [place] [address]Result Comment: Unable to assay due to interference from hemolysis. Suggest reorder as clinically in dicated.Performed By: #### 02836-7, 66395-7, , 2776-12 ####[facility] LABCLIA [id number] [place] [address] [place] AMERICASodium [Moles/Vol]135 mmol/KTvp616-640VjnmyhduyClermont County Hospital on above:Order Comment: Specimen Type: BLOOD SPECIMENOrdering Facility: [facility] Address:[address] [place], [place] [address]Performed By: #### 99201-1, 53823-9, 07544-3, 2777-1 ####[facility] LABCLIA [id number] [place] [address] [place] AMERICAUrea nitrogen [Mass/Vol]11 mg/dL Normal9-24[facility] on above:Order Comment: Specimen Type: BLOOD SPECIMENOrdering Facility: [facility] Address:[address] [place], [place] [address]Performed By: #### 32296-6, 24380-9, 92738-7, 2777- ####[facility] LABCLIA [id number] [place] [address] [place] AMERICACASE MANAGEMon 13-89-1722DBIW MANAGEMNormalBlanchard [facility] W Auto Differential panel (Bld)on 90-05-4644Uhcgmmyhr (Bld) [#/Vol]0.08 10*3/uLNormal<0.11ClevelCleveland Clinic [facility] on above:Order Comment: Specimen Type: BLOOD SPECIMENOrdering Facility: [facility] Address:[address] [place], [place] [address]Performed By: #### 78714-2 ####[facility] LABCLIA [id number] [place] [address] [place] Basophils/100 WBC (Bld)0.8 %NormalClermont County Hospital on above: Order Comment: Specimen Type: BLOOD SPECIMENOrdering Facility: [facility] Address:[address] [place], [place] [address]Performed By: #### 34260- 8 ####[facility] LABCLIA [id number] [place] [address] [place] AMERICADifferential cell count method Nom (Bld)AutoNormalClevelCleveland Clinic [facility] on above:Order Comment: Specimen Type: BLOOD SPECIMENOrdering Facility: [facility] Address:[address] [place], [place] [address]Performed By: #### 59653-7 ####[facility] LABCLIA [id number] [place] [address] [place] AMERICAEosinophils (Bld) [#/Vol]0.59 10*3/uLHigh<0.46[facility] on above:Order Comment: Specimen Type: BLOOD SPECIMENOrdering Facility: [facility] Address:[address] [place], [place] [address]Performed By: #### 94421-3 ####[facility] LABCLIA [id number] [place] [address] [place] AMERICAEosinophils/100 WBC (Bld)5.8 % NormalClermont County Hospital on above:Order Comment: Specimen Type: BLOOD SPECIMENOrdering Facility: [facility] Address:[address] [place], [place] [address]Performed By: #### 09250-3 ####[facility] LABIA [id number] [place] [address] [place] AMERICAErythrocyte distribution width (RBC) [Ratio]14.7 %Normal 11.5-15.0[facility] on above:Order Comment: Specimen Type: BLOOD SPECIMENOrdering Facility: [facility] Address:[address] [place], [place] [address]Performed By: #### 99273-4 ####[facility] LABCLIA [id number] [place] [address] [place] AMERICAHematocrit (Bld) [Volume fraction]50.2 %Psigpy98.0-51.0 [facility] on above:Order Comment: Specimen Type: BLOOD SPECIMENOrdering Facility: [facility] Address:[address] [place], [place] [address]Performed By: #### 30512-6 ####[facility] LABCLIA [id number] [place] [address] [place] AMERICAHemoglobin (Bld) [Mass/Vol]15.6 g/cEWrkvsn69.0-17.0[facility] Medical CenterComment on above:Order Comment: Specimen Type: BLOOD SPECIMENOrdering Facility: [facility] Address:[address] [place], [place] [address]Performed By: #### 87964-6 ####[facility] LABCLIA [id number] [place] [address] [place] Immature granulocytes (Bld) [#/Vol]0.07 10*3/uLNormal<0.10[facility] Medical CenterComment on above:Order Comment: Specimen Type: BLOOD SPECIMENOrdering Facility: [facility] Address:[address] [place], [place] [address]Performed By: #### 44784-3 ####[facility] LABCLIA [id number] [place] [address] [place] Immature granulocytes/100 WBC (Bld)0.7 %[facility] on above:Order Comment: Specimen Type: BLOOD SPECIMENOrdering Facility: [facility] Address:[address] [place] [address] Performed By: #### 96230-0 ####[facility] LABCLIA [id number] [place] [address] [place] Lymphocytes (Bld) [#/Vol]1.51 10*3/uLNormal1.00-4.00[facility] Comment on above:Order Comment: Specimen Type: BLOOD SPECIMENOrdering Facility: [facility] Address:[address] [place] [address] Performed By: #### 12463-1 ####[facility] LABCLIA [id number] [place] [address] [place] Lymphocytes/100 WBC (Bld)14.9 %NormalClermont County Hospital on above: Order Comment: Specimen Type: BLOOD SPECIMENOrdering Facility: [facility] Address:[address] [place], [place] [address]Performed By: #### 43510- 8 ####[facility] LABCLIA [id number] [address] (RBC) [Entitic mass]26.6 pg Olvtkz85.0-34.0[facility] on above:Order Comment: Specimen Type: BLOOD SPECIMENOrdering Facility: [facility] Address:[address] [place], [place] [address]Performed By: #### 49164-5 ####[facility] LABCLIA [id number] [address]HC (RBC) [Mass/Vol]31.1 g/dL Uuqclz53.5-36.0[facility] on above:Order Comment: Specimen Type: BLOOD SPECIMENOrdering Facility: [facility] Address:[address] [place], [place] [address]Performed By: #### 97501-5 ####[facility] LABCLIA [id number] [address] (RBC) [Entitic vol]85.5 fL Bebxpm34.0-100.0[facility] on above:Order Comment: Specimen Type: BLOOD SPECIMENOrdering Facility: [facility] Address:[address] [place], [place] [address]Performed By: #### 05822-8 ####[facility] LABCLIA [id number] [address]ETMonocytes (Bld) [#/Vol]0.89 10*3/uLHigh<0.87[facility] on above:Order Comment: Specimen Type: BLOOD SPECIMENOrdering Facility: [facility] Address:[address] [place], [place] [address]Performed By: #### 54940-5 ####[facility] LABCLIA [id number] [place] [address] [place] AMERICAMonocytes/100 WBC (Bld)8.8 % NormalClermont County Hospital on above:Order Comment: Specimen Type: BLOOD SPECIMENOrdering Facility: [facility] Address:[address] [place], [place] [address]Performed By: #### 54986-5 ####[facility] LABCLIA [id number] [place] [address] [place] AMERICANeutrophils (Bld) [#/Vol]6.97 10*3/uLNormal1.45-7.50[facility] on above:Order Comment: Specimen Type: BLOOD SPECIMENOrdering Facility: [facility] Address:[address] [place], [place] [address]Performed By: #### 61723-3 ####[facility] LABCLIA [id number] [place] [address] [place] AMERICANeutrophils/100 WBC (Bld)69.0 %NormalClermont County Hospital on above:Order Comment: Specimen Type: BLOOD SPECIMENOrdering Facility: [facility] Address:[address] [place] [address] Performed By: #### 91392-1 ####[facility] LABCLIA [id number] [place] [address] [place] Nucleated RBC (Bld) [#/Vol]10*3/uLNormal<0.01[facility] on above:Order Comment: Specimen Type: BLOOD SPECIMENOrdering Facility: [facility] Address:[address] [place] [address] Performed By: #### 30244-1 ####[facility] LABCLIA [id number] [place] [address] [place] Nucleated RBC/100 WBC (Bld) [Ratio]0.0 /100 WBCNormalCWayne Hospital Comment on above:Order Comment: Specimen Type: BLOOD SPECIMENOrdering Facility: [facility] Address:[address] [place] [address] Performed By: #### 63048-4 ####[facility] LABCLIA [id number] [place] [address] [place] Platelet mean volume (Bld) [Entitic vol]11.6 fLNormal9.0-12.7CWayne HealthCare [facility] on above:Order Comment: Specimen Type: BLOOD SPECIMENOrdering Facility: [facility] Address:[address] [place], [place] [address]Performed By: #### 10989-4 ####[facility] LABIA [id number] [place] [address] [place] Platelets (Bld) [#/Vol]121 10*3/vTNwn309-018OnyjceugrClermont County Hospital on above:Order Comment: Specimen Type: BLOOD SPECIMENOrdering Facility: [facility] Address:[address] [place], [place] [address]Result Comment: Results checked and verified.No clot detected.Performed By: #### 45545-8 ####[facility] LABIA [id number] [place] [address] [place] AMERICARBC (Bld) [#/Vol]5.87 10*6/uL Normal4.20-6.00[facility] on above:Order Comment: Specimen Type: BLOOD SPECIMENOrdering Facility: [facility] Address:[address] [place], [place] [address]Performed By: #### 06862-0 ####[facility] LABIA [id number] [place] [address] [place] AMERICAWBC (Bld) [#/Vol]10.11 10*3/uL Normal3.70-11.00[facility] on above:Order Comment: Specimen Type: BLOOD SPECIMENOrdering Facility: [facility] Address:[address] [place], [place] [id number] By: #### 80869-2 ####[facility] LABCLIA [id number] [address] [address] [place] OF AMERICACONSULT PROGon [id number] PROGNormalUniversity Hospitals Parma Medical CenterHepatic function 2000 panelon 07-02-2024 Albumin [Mass/Vol]3.8 g/dLLow3.9-4.9CWay[facility] on above: Order Comment: Specimen Type: BLOOD SPECIMENOrdering Facility: [facility] Address:[address] [place], [place] [address]Performed By: #### 72546- 2, 95131-7, , 2776- ####[facility] LABCLIA [id number] [place] [id number] [place] AMERICAALP [Catalytic activity/Vol]97 U/DChhlpq10-412NrcdjrwphClermont County Hospital on above:Order Comment: Specimen Type: BLOOD SPECIMENOrdering Facility: [facility] Address:[address] [place], [place] [address]Result Comment: Results may be falsely decreased due to interference from hemolysis. Suggest reorder as clinically indicated.Performed By: #### 03856-8, 80031-1, 31813-5, 7-1 ####[facility] LABCLIA [id number] [place] [id number] [place] [place] OF AMERICAALT [Catalytic activity/Vol]172 U/OHhgv66-67IozbwbsqgClermont County Hospital on above:Order Comment: Specimen Type: BLOOD SPECIMENOrdering Facility: [facility] Address:[address] [place], [place] [address]Result Comment: Results may be falsely increased due to interference from hemolysis. Suggest reorder as clinically indicated. Performed By: #### 76981-8, 00666-1, 25699-2, 7-1 ####[facility] LABCLIA [id number] [place] [id number] [place] AMERICAAST [Catalytic activity/Vol]132 U/TAklf85-03WssolunqdClermont County Hospital on above:Order Comment: Specimen Type: BLOOD SPECIMENOrdering Facility: [facility] Address:[address] [place], [place] [address]Result Comment: Results may be falsely increased due to interference from hemolysis. Suggest reorder as clinically indicated.Performed By: #### 87633-0, 46350-9, , 2776- ####[facility] LABCLIA [id number] [address] STATES OF AMERICABilirubin [Mass/Vol]1.0 mg/dLNormal0.2-1.3CWay[facility] on above:Order Comment: Specimen Type: BLOOD SPECIMENOrdering Facility: [facility] Address:[address] [place], [place] [address]Performed By: #### 45132- 2, 85974-1, , 2776-12 ####[facility] LABCLIA [id number] [place] [address] [place] Bilirubin.conjugated [Mass/Vol]mg/dLNormal<0.2CWay[facility] on above:Order Comment: Specimen Type: BLOOD SPECIMENOrdering Facility: [facility] Address:[address] [place], [place] [address]Result Comment: Results may be falsely decreased due to interference from hemolysis. Suggest reorder as clinically indicated.Performed By: #### 96166-8, 57337-0, , 2776-12 ####[facility] LABCLIA [id number] [place] [address] [place] AMERICAProtein [Mass/Vol]6.7 g/dLNormal6.3-8.0[facility] on above:Order Comment: Specimen Type: BLOOD SPECIMENOrdering Facility: [facility] Address:[address] [place], [place] [address]Performed By: #### 08544-4, 33787-6, 06295-4, 2776- ####[facility] LABCLIA [id number] [place] [address] [place] AMERICAMagnesium SerPl-mCncon 58-35-2703Hcfjlkwsw [Mass/Vol]2.0 mg/dLNormal1.7-2.3CWay[facility] Comment on above:Order Comment: Specimen Type: BLOOD SPECIMENOrdering Facility: [facility] Address:[address] [place] [address] Performed By: #### 77343-4, 68143-6, , 2776-12 ####[facility] LABCLIA [id number] [place] [address] [place] AMERICAPhosphate SerPl-mCncon 52-94-8475Uaczxegsq [Mass/Vol]3.0 mg/dL Normal2.7-4.8CWayne HospitalComment on above:Order Comment: Specimen Type: BLOOD SPECIMENOrdering Facility: [facility] Address:[address] [place], [place] [address]Performed By: #### 75346-8, 24220-4, , 2776-12 ####[facility] LABIA [id number] [place] [address] [place] AMERICATOXICOLOGY PANEL BLDon 53-49-7767Eialwpvaaaxjl [Mass/Vol]ug/dAIfx81-99UhyteluawUniversity Hospitals Parma Medical CenterComuniversity of michigan health on above:Order Comment: Specimen Type: BLOOD SPECIMENOrdering Facility: [facility] Address:[address] [place], [place] [address]Result Comment: Toxic > 150 ug/mL 4 hours post ingestionThe Jhoana Gordon nomogram can be used to estimate the probability of hepatotoxicity via the relationship of plasma acetaminophen concentration to the post ingestion interval. (Sonia. Pediatrics. 1975. 55:871 to 876 and Jhoanaet al. Arch Costume Designer Med. 1981. 141:380 to 385).Reference ranges and high/low indicator flags are provided as general guidelines only. The treating physician must determine appropriate target levels/dosing based on the specific clinical situation.Performed By: #### TOXP ####[facility] LABCLIA [id number] [place] [address] [place] AMERICAEthanol [Mass/Vol]mg/dLNormal<11 [facility] on above:Order Comment: Specimen Type: BLOOD SPECIMENOrdering Facility: [facility] Address:[address] [place], [place] [address]Performed By: #### TOXP ####[facility] LABCLIA [id number] [place] [address] [place] AMERICASalicylates [Mass/Vol]mg/dLLow3.0-30.0[facility] on above:Order Comment: Specimen Type: BLOOD SPECIMENOrdering Facility: [facility] Address:[address] [place], [place] [address]Result Comment: The therapeutic range varies and has been reported to be 3.0 to 10.0 mg/dL for antipyretic/analgesic conditions and 15.0 to 30.0 mg/dL for anti inflammatory/rheumatic fever conditions. Ranges published by the instrument social insurance analyst.Reference ranges and high/low indicator flags areprovided as general guidelines only. The treating physician must determine appropriate target levels/dosing based on the specific clinical situation.Performed By: #### TOXP ####[facility] LABIA [id number] [place] [address] [place] AMERICATOXICOLOGY SCREEN, ROUTINE URINE on 98-98-1598Romrxlwzmcfy Confirm (U) [Mass/Vol]PositiveAbnormalNegative [facility] on above:Order Comment: Specimen Type: URINE SPECIMENOrdering Facility: [facility] Address:[address] [place], [place] [address]Result Comment: Cutoff threshold at 1000 ng/mL.Performed By: #### UTOX2 ####[facility] LABIA [id number] [place] [address] [place] AMERICABARBITURATES, URINE NegativeNormalNegativeClermont County Hospital on above:Order Comment: Specimen Type: URINE SPECIMENOrdering Facility: [facility] Address:[address] [place], [place] [address]Result Comment: Cutoff threshold at 200 ng/mL.Performed By: #### UTOX2 ####[facility] LABCLIA [id number] [place] [address] [place] BENZODIAZEPINES, URPositiveAbnormalNegativeCleFisher-Titus Medical Center on above:Order Comment: Specimen Type: URINE SPECIMENOrdering Facility: [facility] Address:[address] [place], [place] [address]Result Comment: Cutoff threshold at 200 ng/mL.Performed By: #### UTOX2 ####[facility] LABIA [id number] [place] [address] [place] AMERICACannabinoids Screen Ql (U)PositiveAbnormalNegativeClermont County Hospital on above:Order Comment: Specimen Type: URINE SPECIMENOrdering Facility: [facility] Address:[address] [place], [place] [address]Result Comment: Cutoff threshold at 50 ng/mL.Performed By: #### UTOX2 ####[facility] LABIA [id number] [address] STATES OF AMERICACocaine Ql (U)Negative NormalNegativeClermont County Hospital on above:Order Comment: Specimen Type: URINE SPECIMENOrdering Facility: [facility] Address:[address] [place], [place] [address]Result Comment: Cutoff threshold at 300 ng/mL. Performed By: #### UTOX2 ####[facility] LABIA [id number] [place] [address] [place] AMERICAEthanol (U) [Mass/Vol]<11Normal<11ClevelCleveland Clinic [facility] on above:Order Comment: Specimen Type: URINE SPECIMENOrdering Facility: [facility] Address:[address] [place], [place] [address]Performed By: #### UTOX2 ####[facility] LABIA [id number] [address] STATES OF [address] JOHN OF GOD HOSPITALOpiates Screen Ql (U)Positive AbnormalNegativeClermont County Hospital on above:Order Comment: Specimen Type: URINE SPECIMENOrdering Facility: [facility] Address:[address] [place], [place] [address]Result Comment: Cutoff threshold at 300 ng/mL.Performed By: #### UTOX2 ####[facility] [id number] [address] [place] oxyCODONE cutoff Screen (U) [Mass/Vol]PositiveAbnormalNegativeClermont County Hospital on above:Order Comment: Specimen Type: URINE SPECIMENOrdering Facility: [facility] Address:[address] [place], [place] [address]Result Comment: Cutoff threshold at 100 ng/mL.Performed By: #### UTOX2 ####[facility] [id number] [address] STATES OF AMERICAPhencyclidine Ql (U)NegativeNormal NegativeClermont County Hospital on above:Order Comment: Specimen Type: URINE SPECIMENOrdering Facility: [facility] Address:[address] [place], [place] [address]Result Comment: Cutoff threshold at 25 ng/mL. Performed By: #### UTOX2 ####[facility] [id number] [place] [address] [place] AMERICABasic metabolic 2000 panelon 23-65-2033Qhbgy gap [Moles/Vol]16 mmol/LHigh8-15[facility] on above:Order Comment: Specimen Type: BLOOD SPECIMENOrdering Facility: [facility] Address:[address] [place], [place] [address]Performed By: #### 37896-6, 2777-1, 27998-5, 51662-1 ####[facility] LABCLIA [id number] [place] [address] [place] AMERICACalcium [Mass/Vol]7.5 mg/dLLow 8.5-10.2CWay[facility] on above:Order Comment: Specimen Type: BLOOD SPECIMENOrdering Facility: [facility] Address:[address] [place], [place] [address]Result Comment: Result rechecked.Performed By: #### 57794-5, 2777-1, 58987-4, 76311-7 ####[facility] LABIA [id number] [place] [address] [place] Chloride [Moles/Vol]104 mmol/SVipeix63-294XiagoefxsClermont County Hospital on above:Order Comment: Specimen Type: BLOOD SPECIMENOrdering Facility: [facility] Address:[address] [place], [place] [address]Performed By: #### 66012-9, 2777-1, 50581-6, 22047-9 ####[facility] LABIA [id number] [place] [address] [place] CO2 [Moles/Vol]16 mmol/MMfd95-13MlglykdqdClermont County Hospital on above:Order Comment: Specimen Type: BLOOD SPECIMENOrdering Facility: [facility] Address:[address] [place], [place] [address]Performed By: #### 44473- 9, 2777-1, 93456-5, 49052-6 ####[facility] LABCLIA [id number] [place] [address] [place] Creatinine [Mass/Vol]0.74 mg/dLNormal0.73-1.22[facility] on above:Order Comment: Specimen Type: BLOOD SPECIMENOrdering Facility: [facility] Address:[address] [place] [address] Performed By: #### 56631-3, 2777-1, 22221-6, 44173-9 ####[facility] LABIA [id number] [place] [address] [place] AMERICACreatinine and Glomerular filtration rate.predicted panel (S/P/Bld)123 mL/min/1.73m???Normal>=60[facility] on above:Order Comment: Specimen Type: BLOOD SPECIMENOrdering Facility: [facility] Address:[address] [place], [place] [address]Result Comment: Estimated Glomerular Filtration Rate (eGFR) is [...] not accurately reflect actual GFR.Performed By: #### 07234-1, 2777-1, 89033-4, 55986-7 ####[facility] LABCLIA [id number] [address] [address] [place] AMERICAGlucose [Mass/Vol]82 mg/hSKigdkz79-42PprwddeijClermont County Hospital on above:Order Comment: Specimen Type: BLOOD SPECIMENOrdering Facility: [facility] Address:[address] [place], [place] [address]Result Comment: The [place] Diabetes Association (ADA) provides guidance for cutoff [...] Standards of Medical Care in Diabetes 2016, [place] [employer] Association. Diabetes Care. 2016.39(Suppl 1). Performed By: #### 99701-3, 2777-1, 08447-4, 22075-4 ####[facility] LABIA [id number] [place] [address] [place] AMERICAPotassium [Moles/Vol]4.1 mmol/LNormal3.7-5.1CWay[facility] on above:Order Comment: Specimen Type: BLOOD SPECIMENOrdering Facility: [facility] Address:[address] [place], [place] [address]Performed By: #### 83929-7, 2777-1, 17744-0, 93751-1 ####[facility] [place] [id number] [place] [address] [place] AMERICASodium [Moles/Vol]136 mmol/GXjhvyf287-998WihmsbmsnClermont County Hospital on above:Order Comment: Specimen Type: BLOOD SPECIMENOrdering Facility: [facility] Address:[address] [place], [place] [address]Performed By: #### 46648-3, 2777-1, 97968-8, 85270-4 ####[facility] [place] [id number] [place] [address] [place] AMERICAUrea nitrogen [Mass/Vol]7 mg/dL Low9-24[facility] on above:Order Comment: Specimen Type: BLOOD SPECIMENOrdering Facility: [facility] Address:[address] [place], [place] [address]Performed By: #### 64905-9, 2777-1, 25430-0, 18558-2 ####[facility] [place] [id number] [place] [address] [place] AMERICACASE MGT INIT ASSESon 07-01-2024 CASE MGT INIT ASSESNormalCWayne HospitalCB W Auto Differential panel (Bld)on 43-92-2344Yfhcdjtrs (Bld) [#/Vol]0.03 10*3/uLNormal<0.11C[facility] on above:Order Comment: Specimen Type: BLOOD SPECIMENOrdering Facility: [facility] Address:[address] [place], [place] [address]Performed By: #### 59302-9 ####[facility] LABCLIA [id number] [place] [address] [place] AMERICABasophils/100 WBC (Bld)0.3 %NormalClermont County Hospital on above:Order Comment: Specimen Type: BLOOD SPECIMENOrdering Facility: [facility] Address:[address] [place], [place] [address]Performed By: #### 21148-2 ####[facility] LABCLIA [id number] [place] [address] [place] AMERICADifferential cell count method Nom (Bld)AutoNormalCWayne HealthCare [facility] on above:Order Comment: Specimen Type: BLOOD SPECIMENOrdering Facility: [facility] Address:[address] [place], [place] [address]Performed By: #### 60797- 8 ####[facility] LABCLIA [id number] [place] [address] [place] AMERICAEosinophils (Bld) [#/Vol]10*3/uL Normal<0.46[facility] on above:Order Comment: Specimen Type: BLOOD SPECIMENOrdering Facility: [facility] Address:[address] [place], [place] [address]Performed By: #### 41770-6 ####[facility] LABCLIA [id number] [place] [address] [place] AMERICAEosinophils/100 WBC (Bld)0.0 %NormalClermont County Hospital on above:Order Comment: Specimen Type: BLOOD SPECIMENOrdering Facility: [facility] Address:[address] [place], [place] [address]Performed By: #### 93077-0 ####[facility] LABCLIA [id number] [place] [address] [place] Erythrocyte distribution width (RBC) [Ratio]14.5 %Skyjgs86.5-15.0[facility] Medical CenterComment on above:Order Comment: Specimen Type: BLOOD SPECIMENOrdering Facility: [facility] Address:[address] [place], [place] [address]Performed By: #### 29796-5 ####[facility] LABIA [id number] [place] [address] [place] AMERICAHematocrit (Bld) [Volume fraction]39.0 %Upnasr82.0-51.0[facility] on above:Order Comment: Specimen Type: BLOOD SPECIMENOrdering Facility: [facility] Address:[address] [place], [place] [address]Performed By: #### 46384-8 ####[facility] [place] [id number] [place] [address] [place] Hemoglobin (Bld) [Mass/Vol]12.3 g/dLLow13.0-17.0[facility] Comment on above:Order Comment: Specimen Type: BLOOD SPECIMENOrdering Facility: [facility] Address:[address] [place] [address] Performed By: #### 19978-3 ####[facility] LABIA [id number] [place] [address] [place] Immature granulocytes (Bld) [#/Vol]0.04 10*3/uLNormal<0.10[facility] on above:Order Comment: Specimen Type: BLOOD SPECIMENOrdering Facility: [facility] Address:[address] [place], [place] [address]Performed By: #### 01879-7 ####[facility] LABIA [id number] [place] [address] [place] Immature granulocytes/100 WBC (Bld)0.4 %NormalClermont County Hospital on above:Order Comment: Specimen Type: BLOOD SPECIMENOrdering Facility: [facility] Address:[address] [place] [address] Performed By: #### 69172-9 ####[facility] LABCLIA [id number] [place] [address] [place] Lymphocytes (Bld) [#/Vol]0.96 10*3/uLLow1.00-4.00[facility] Comment on above:Order Comment: Specimen Type: BLOOD SPECIMENOrdering Facility: [facility] Address:[address] [place] [address] Performed By: #### 83838-2 ####[facility] LABIA [id number] [address] STATES OF [facility] Lymphocytes/100 WBC (Bld)10.3 %NormalClermont County Hospital on above: Order Comment: Specimen Type: BLOOD SPECIMENOrdering Facility: [facility] Address:[address] [place], [place] [address]Performed By: #### 78001- 8 ####[facility] LABIA [id number] [address] (RBC) [Entitic mass]27.1 pg Rytose36.0-34.0[facility] on above:Order Comment: Specimen Type: BLOOD SPECIMENOrdering Facility: [facility] Address:[address] [place], [place] [address]Performed By: #### 91222-1 ####[facility] LABIA [id number] [address] (RBC) [Mass/Vol]31.5 g/dL Somrdi27.5-36.0[facility] on above:Order Comment: Specimen Type: BLOOD SPECIMENOrdering Facility: [facility] Address:[address] [place], [place] [address]Performed By: #### 66987-8 ####[facility] LABCLIA [id number] [place] [address] [place] AMERICAMCV (RBC) [Entitic vol]85.9 fL Vcmggn63.0-100.0[facility] on above:Order Comment: Specimen Type: BLOOD SPECIMENOrdering Facility: [facility] Address:[address] [place], [place] [address]Performed By: #### 19105-9 ####[facility] LABIA [id number] [place] [address] [place] AMERICAMonocytes (Bld) [#/Vol]0.90 10*3/uLHigh<0.87[facility] on above:Order Comment: Specimen Type: BLOOD SPECIMENOrdering Facility: [facility] Address:[address] [place], [place] [address]Performed By: #### 37089-1 ####[facility] LABIA [id number] [place] [address] [place] AMERICAMonocytes/100 WBC (Bld)9.7 % NormalClermont County Hospital on above:Order Comment: Specimen Type: BLOOD SPECIMENOrdering Facility: [facility] Address:[address] [place], [place] [address]Performed By: #### 15945-3 ####[facility] LABIA [id number] [place] [address] [place] AMERICANeutrophils (Bld) [#/Vol]7.37 10*3/uLNormal1.45-7.50[facility] on above:Order Comment: Specimen Type: BLOOD SPECIMENOrdering Facility: [facility] Address:[address] [place], [place] [address]Performed By: #### 81284-2 ####[facility] LABIA [id number] [place] [address] [place] AMERICANeutrophils/100 WBC (Bld)79.3 %NormalClermont County Hospital on above:Order Comment: Specimen Type: BLOOD SPECIMENOrdering Facility: [facility] Address:[address] [place] [address] Performed By: #### 30388-3 ####[facility] LABCLIA [id number] [place] [address] [place] Nucleated RBC (Bld) [#/Vol]10*3/uLNormal<0.01[facility] on above:Order Comment: Specimen Type: BLOOD SPECIMENOrdering Facility: [facility] Address:[address] [place] [address] Performed By: #### 89014-8 ####[facility] LABIA [id number] [place] [address] [place] Nucleated RBC/100 WBC (Bld) [Ratio]0.0 /100 WBCNormalCWayne Hospital Comment on above:Order Comment: Specimen Type: BLOOD SPECIMENOrdering Facility: [facility] Address:[address] [place] [address] Performed By: #### 43322-3 ####[facility] LABIA [id number] [place] [address] [place] Platelet mean volume (Bld) [Entitic vol]11.5 fLNormal9.0-12.7CWay[facility] on above:Order Comment: Specimen Type: BLOOD SPECIMENOrdering Facility: [facility] Address:[address] [place], [place] [address]Performed By: #### 38475-2 ####[facility] LABIA [id number] [place] [address] [place] Platelets (Bld) [#/Vol]108 10*3/zDRpj847-848CxplsonxlClermont County Hospital on above:Order Comment: Specimen Type: BLOOD SPECIMENOrdering Facility: [facility] Address:[address] [place], [place] [address]Performed By: #### 87552-6 ####[facility] LABCLIA [id number] [address]ETRB (Bld) [#/Vol]4.54 10*6/uLNormal4.20-6.00[facility] on above:Order Comment: Specimen Type: BLOOD SPECIMENOrdering Facility: [facility] Address:[address] [place], [place] [address]Performed By: #### 72286-7 ####[facility] LABCLIA [id number] [address] STREETWBC (Bld) [#/Vol]9.30 10*3/uL Normal3.70-11.00[facility] on above:Order Comment: Specimen Type: BLOOD SPECIMENOrdering Facility: [facility] Address:[address] [place], [place] [address]Performed By: #### 11085-3 ####[facility] LABCLIA [id number] [address]CB panel Auto (Bld)on 07-01-2024 Erythrocyte distribution width (RBC) [Ratio]15.3 %High11.5-15.0[facility] on above:Order Comment: Specimen Type: BLOOD SPECIMENOrdering Facility: [facility] Address:[address] [place], [place] [address]Performed By: #### 50626-2 ####[facility] LABCLIA [id number] [address] Hematocrit (Bld) [Volume fraction]45.7 %Pqnqtp12.0-51.0[facility] on above:Order Comment: Specimen Type: BLOOD SPECIMENOrdering Facility: [facility] Address:[address] [place], [place] [address]Performed By: #### 85656-5 ####[facility] LABCLIA [id number] [place] [address] [place] Hemoglobin (Bld) [Mass/Vol]14.9 g/cHNlshln17.0-17.0[facility] Comment on above:Order Comment: Specimen Type: BLOOD SPECIMENOrdering Facility: [facility] Address:[address] [place] [address] Performed By: #### 61749-8 ####[facility] [id number] [place] [address] [place] MCH (RBC) [Entitic mass]27.7 wqCegsxm92.0-34.0[facility] Medical CenterComment on above:Order Comment: Specimen Type: BLOOD SPECIMENOrdering Facility: [facility] Address:[address] [place] [address] Performed By: #### 72433-3 ####[facility] [place] [id number] [place] [address] [place] MCHC (RBC) [Mass/Vol]32.6 g/mVTqbctc18.5-36.0[facility] CenterComment on above:Order Comment: Specimen Type: BLOOD SPECIMENOrdering Facility: [facility] Address:[address] [place] [address] Performed By: #### 12137-1 ####[facility] [place] [id number] [place] [address] [place] MCV (RBC) [Entitic vol]85.1 hCKwsrbx44.0-100.0[facility] Medical CenterComuniversity of michigan health on above:Order Comment: Specimen Type: BLOOD SPECIMENOrdering Facility: [facility] Address:[address] [place] [address] Performed By: #### 11681-2 ####[facility] [place] [id number] [place] [address] [place] Nucleated RBC (Bld) [#/Vol]10*3/uLNormal<0.01[facility] on above:Order Comment: Specimen Type: BLOOD SPECIMENOrdering Facility: [facility] Address:[address] [place] [address] Performed By: #### [id number] ####[facility] LABCL[facility] [id number] [place] [address] [place] Platelet mean volume (Bld) [Entitic vol]12.3 fLNormal9.0-12.7CWay[facility] on above:Order Comment: Specimen Type: BLOOD SPECIMENOrdering Facility: [facility] Address:[address] [place], [place] [address]Performed By: #### [id number] ####[facility] LABCLIA [id number] [place] [address] [place] Platelets (Bld) [#/Vol]133 10*3/zNQkq418-662RyizgfvxpClermont County Hospital on above:Order Comment: Specimen Type: BLOOD SPECIMENOrdering Facility: [facility] Address:[address] [address] [place], [place] [address]Performed By: #### 58321-5 ####[facility] LABIA [id number] [place] [address] [place] AMERICARBC (Bld) [#/Vol]5.37 10*6/uLNormal4.20-6.00[facility] on above:Order Comment: Specimen Type: BLOOD SPECIMENOrdering Facility: [facility] Address:[address] [place], [place] [address]Performed By: #### 95315-3 ####[facility] LABCLIA [id number] [place] [address] [place] AMERICAWBC (Bld) [#/Vol]7.99 10*3/uL Normal3.70-11.00[facility] on above:Order Comment: Specimen Type: BLOOD SPECIMENOrdering Facility: [facility] Address:[address] [place], [place] [address]Performed By: #### 88999-1 ####[facility] LABCLIA [id number] [place] [address] [place] AMERICACONSULT PROGon 36-25-7548JFXKWMA PROGNormalUniversity Hospitals Parma Medical CenterComprehensive metabolic 2000 panelon 47-52-4878Zokauju [Mass/Vol]4.0 g/dLNormal3.9-4.9C[facility] Comment on above:Order Comment: Specimen Type: BLOOD SPECIMENOrdering Facility: [facility] Address:[address] [place], [place] [address]Result Comment: Result rechecked.Performed By: #### 2324-2, 43885-4 ####[facility] LABCLIA [id number] [place] [address] [place] AMERICAALP [Catalytic activity/Vol]90 U/IDtbgye53-480 [facility] on above:Order Comment: Specimen Type: BLOOD SPECIMENOrdering Facility: [facility] Address:[address] [place], [place] [address]Performed By: #### 2324-2, 47553-3 ####[facility] LABCLIA [id number] [place] [address] [place] AMERICAALT [Catalytic activity/Vol]214 U/UOvdi14-87RcugolmjlClermont County Hospital on above:Order Comment: Specimen Type: BLOOD SPECIMENOrdering Facility: [facility] Address:[address] [place], [place] [address]Performed By: #### 2324-2, 09606-5 ####[facility] LABCLIA [id number] [address] [address] [place] Anion gap [Moles/Vol]11 mmol/LNormal8-15[facility] on above:Order Comment: Specimen Type: BLOOD SPECIMENOrdering Facility: [facility] Address:[address] [place], [place] [address]Performed By: #### 2324-2, 26457-6 ####[facility] LABCLIA [id number] [place] [address] [place] AMERICAAST [Catalytic activity/Vol]176 U/VCfat44-72SsrsjxgkxClermont County Hospital on above:Order Comment: Specimen Type: BLOOD SPECIMENOrdering Facility: [facility] Address:[address] [place], [place] [address]Result Comment: Results may be falsely increased due to interference from hemolysis. Suggest reorder as clinically indicated.Performed By: #### 2324-2, 32990-8 ####[facility] LABCLIA [id number] [place] [address] [place] AMERICABilirubin [Mass/Vol]1.5 mg/dLHigh0.2-1.3[facility] on above:Order Comment: Specimen Type: BLOOD SPECIMENOrdering Facility: [facility] Address:[address] [place], [place] [address]Performed By: #### 2324-2, 43475-8 ####[facility] LABIA [id number] [address] STATES OF AMERICACalcium [Mass/Vol]8.4 mg/dLLow8.5-10.2C[facility] on above:Order Comment: Specimen Type: BLOOD SPECIMENOrdering Facility: [facility] Address:[address] [place], [place] [address] Performed By: #### 2324-2, 96761-9 ####[facility] LABIA [id number] [place] [address] [place] Chloride [Moles/Vol]101 mmol/ASugmoq83-916DyjqsnvjbClermont County Hospital on above:Order Comment: Specimen Type: BLOOD SPECIMENOrdering Facility: [facility] Address:[address] [place], [place] [address]Performed By: #### 2324-2, 94891-7 ####[facility] LABIA [id number] [place] [address] [place] AMERICACO2 [Moles/Vol]25 mmol/EMfomaq07-25DxzusqmxhClermont County Hospital on above:Order Comment: Specimen Type: BLOOD SPECIMENOrdering Facility: [facility] Address:[address] [place], [place] [address]Performed By: #### 2324-2, ####[facility] [id number] [place] [address] [place] AMERICACreatinine [Mass/Vol]1.02 mg/dL Normal0.73-1.22[facility] on above:Order Comment: Specimen Type: BLOOD SPECIMENOrdering Facility: [facility] Address:[address] [place], [place] [address]Performed By: #### 2324-2, ####[facility] [id number] [place] [address] [place] AMERICACreatinine and Glomerular filtration rate.predicted panel (S/P/Bld)100 mL/min/1.73m???Normal>=60[facility] on above:Order Comment: Specimen Type: BLOOD SPECIMENOrdering Facility: [facility] Address:[address] [place], [place] [address]Result Comment: Estimated Glomerular Filtration Rate (eGFR) is [...] accurately reflect actual GFR.Performed By: #### 2324-2, 36869-7 ####[facility] LABIA [id number] [place] [address] [place] AMERICAGlucose [Mass/Vol]102 mg/hWVynw46-79TudyswphvUniversity Hospitals Parma Medical Center Comment on above:Order Comment: Specimen Type: BLOOD SPECIMENOrdering Facility: [facility] Address:[address] [place], [place] [address]Result Comment: The [place] Diabetes Association (ADA) provides guidance for cutoff [...] Standards of Medical Care in Diabetes 2016, [place] [employer]. Diabetes Care. 2016.39(Suppl 1).Performed By: #### 2324-2, 70380-0 ####[facility] LABCLIA [id number] [place] [address] [place] AMERICAPotassium [Moles/Vol]4.1 mmol/LNormal3.7-5.1CWayne HospitalComment on above:Order Comment: Specimen Type: BLOOD SPECIMENOrdering Facility: [facility] Address:[address] [place], [place] [address]Performed By: #### 2324-2, 53542-9 ####[facility] LABCLIA [id number] [place] [address] [place] AMERICAProtein [Mass/Vol]6.4 g/dLNormal6.3-8.0[facility] on above:Order Comment: Specimen Type: BLOOD SPECIMENOrdering Facility: [facility] Address:[address] [place], [place] [address]Result Comment: Result rechecked.Performed By: #### 2324-2, 12148-5 ####[facility] LABCLIA [id number] [place] [address] [place] AMERICASodium [Moles/Vol]137 mmol/CSihcub177-664LvqmrkiciClermont County Hospital on above:Order Comment: Specimen Type: BLOOD SPECIMENOrdering Facility: [facility] Address:[address] [place], [place] [address]Performed By: #### 2324-2, 05958-4 ####[facility] LABCLIA [id number] [place] [address] [place] AMERICAUrea nitrogen [Mass/Vol]10 mg/dLNormal9-24[facility] on above:Order Comment: Specimen Type: BLOOD SPECIMENOrdering Facility: [facility] Address:[address] [place], [place] [address]Performed By: #### 2324-2, 42336-6 ####[facility] [id number] [place] [address] [place] AMERICAEthanol Gas chromatography [Mass/Vol]on 43-57-6383Tcwwxms [Mass/Vol]mg/dL Normal<5C[facility] on above:Order Comment: Specimen Type: BLOOD SPECIMENOrdering Facility: [facility] Address:[address] [place], [place] [address]Result Comment: Therapeutic range for methanol toxicity 100 - 150 mg/dL.Source: AACT Practice Guidelines on the Treatment of Methanol Poisoning.For medical purposes only. Not valid for forensic use.This test was developed and its performance characteristics determined by [facility]'s Iraj Huston [facility] [place] ([facility]). It has not been cleared or approvedby the FDA. -[facility] is regulated under CLIA as qualified to perform high-complexity testing. This test is used for clinical purposes. It should not be regarded as investigational or for research. Performed By: #### 37244-8 ####[facility] LABCLIA [id number] [place] [address] [place] Ethanol SerPl-mCncon 92-45-7493Cgcrbqc [Mass/Vol]mg/dLNormal<11C[facility] on above:Order Comment: Specimen Type: BLOOD SPECIMENOrdering Facility: [facility] Address:[address] [place], [place] [address]Performed By: #### 5643-2 ####[facility] LABCLIA [id number] [address] [address] [place] GGT SerPl-cCncon 38-93-3278Knmes glutamyl transferase [Catalytic activity/Vol] 199 U/BUasq82-75XodqztbabClermont County Hospital on above:Order Comment: Specimen Type: BLOOD SPECIMENOrdering Facility: [facility] Address:[address] [place], [place] [address]Performed By: #### 2324-2, 22986-0 ####[facility] LABCLIA [id number] [place] [address] [place] AMERICAHepatic function 2000 panelon 51-30-7061Vjwwpol [Mass/Vol]2.6 g/dLLow3.9-4.9CWay[facility] on above:Order Comment: Specimen Type: BLOOD SPECIMENOrdering Facility: [facility] Address:[address] [place], [place] [address]Result Comment: Result rechecked.Performed By: #### 27123-3, 2777-1, 73617-8, 33590-8 ####[facility] LABCLIA [id number] [place] [address] [place] AMERICAALP [Catalytic activity/Vol]54 U/LOnwjxu47-478EgvsldhnvClermont County Hospital on above:Order Comment: Specimen Type: BLOOD SPECIMENOrdering Facility: [facility] Address:[address] [place], [place] [address]Performed By: #### 69333-6, 2777-1, 83851-5, 93557-9 ####[facility] LABCLIA [id number] [place] [address] [place] AMERICAALT [Catalytic activity/Vol]113 U/JCijk66-10KejlgemvfClermont County Hospital on above:Order Comment: Specimen Type: BLOOD SPECIMENOrdering Facility: [facility] Address:[address] [place], [place] [address]Performed By: #### 07022- 9, 2777-1, 71379-8, 18742-8 ####[facility] LABCLIA [id number] [place] [address] [place] AMERICAAST [Catalytic activity/Vol]100 U/SDsql68-27QozqywioyClermont County Hospital on above:Order Comment: Specimen Type: BLOOD SPECIMENOrdering Facility: [facility] Address:[address] [place], [place] [address]Performed By: #### 28194-2, 2777-1, 00303-8, 70476-4 ####[facility] LABCLIA [id number] [place] [address] [place] Bilirubin [Mass/Vol]0.8 mg/dLNormal0.2-1.3CProMedica Bay Park Hospitalment on above:Order Comment: Specimen Type: BLOOD SPECIMENOrdering Facility: [facility] Address:[address] [place], [place] [address]Performed By: #### 84788-4, 2777-1, 85634-7, 67548-9 ####[facility] LABCLIA [id number] [place] [address] [place] Bilirubin.conjugated [Mass/Vol]mg/dLNormal<0.2C[facility] on above:Order Comment: Specimen Type: BLOOD SPECIMENOrdering Facility: [facility] Address:[address] [place] [address] Performed By: #### 99101-4, 2777-1, 34823-2, 44034-4 ####[facility] LABCLIA [id number] [place] [address] [place] AMERICAProtein [Mass/Vol]4.2 g/dLLow6.3-8.0[facility] Comment on above:Order Comment: Specimen Type: BLOOD SPECIMENOrdering Facility: [facility] Address:[address] [place] [address]Lenoxo Comment: Result rechecked.Performed By: #### 75179-1, 2777-1, 57176-5, 56234-1 ####[facility] LABCLIA [id number] [place] [address] [place] AMERICAMagnesium SerPl-mCncon 07-01-2024 Magnesium [Mass/Vol]1.2 mg/dLLow1.7-2.3C[facility] on above:Order Comment: Specimen Type: BLOOD SPECIMENOrdering Facility: [facility] Address:[address] [place], [place] [address]Performed By: #### 61248-7, 2777-1, 22992-8, 41709-1 ####[facility] LABCLIA [id number] [address] [place] PT panel Coag (PPP)on 04-82-0145SNK Coag (PPP) [Relative time]1.0 {INR}Normal 0.9-1.3C[facility] on above:Order Comment: Specimen Type: BLOOD SPECIMENOrdering Facility: [facility] Address:[address] [place] [address]Xdhoha Comment: Vitamin K Antagonist (VKA) Therapeutic Range: INR 2 to 3 (Target INR of 2.5)Note: For patients treated with VKA drugs, such as warfarin, the [place] [employer] 2012 Guideline recommends [...] al. JACC 2017, 70: 252-289Performed By: #### 60088-3 ####[facility] [id number] [place] [address] [place] PT Coag (PPP) [Time]11.1 sNormal9.7-13.0[facility] Parma Medical CenterComment on above:Order Comment: Specimen Type: BLOOD SPECIMENOrdering Facility: [facility] Address:[address] [place], [place] [address]Performed By: #### 72325-3 ####[facility] [id number] [place] [address] [place] AMERICAPhosphate SerPl-mCncon 13-32-6984Nfhgvudsr [Mass/Vol]2.4 mg/dLLow2.7-4.8[facility] Comment on above:Order Comment: Specimen Type: BLOOD SPECIMENOrdering Facility: [facility] Address:[address] [place] [address] Performed By: #### 13156-7, 2777-1, 96217-7, 13658-7 ####[facility] [id number] [place] [address] [place] AMERICAANES POSTPROC EVALon 30-28-2121EADE POSTPROC EVALNormal [facility] Medical CenterBRIEF OP NOTon 31-67-1865QMOWR OP NOTNormalCWayne HospitalCONSULTon 87-12-2368ZPJIWTXPopahxPmjlwvchz [facility] NURSING PROGon 24-27-3052GCIPIDC PROGNormalUniversity Hospitals Parma Medical CenterOPERATIVE NOon 09-33-2682QHMSBEPAS NONormalUniversity Hospitals Parma Medical CenterANES PRE-OPon 56-36-1757HNNE PRE-OPNormalUniversity Hospitals Parma Medical CenterCBC W Auto Differential panel (Bld)on 70-00-0409Qhimpiwez (Bld) [#/Vol]0.09 10*3/uLNormal<0.11C[facility] on above:Order Comment: Specimen Type: BLOOD SPECIMENOrdering Facility: [facility] Address:[address] [place], [place] [address]Performed By: #### 16541-5 ####[facility] LABCLIA [id number] [place] [address] [place] AMERICABasophils/100 WBC (Bld)1.5 %NormalClermont County Hospital on above:Order Comment: Specimen Type: BLOOD SPECIMENOrdering Facility: [facility] Address:[address] [place], [place] [address]Performed By: #### 44997-7 ####[facility] LABCLIA [id number] [place] [address] [place] AMERICADifferential cell count method Nom (Bld)AutoNormalCWayne [facility]Care [facility] on above:Order Comment: Specimen Type: BLOOD SPECIMENOrdering Facility: [facility] Address:[address] [place], [place] [address]Performed By: #### 12467- 8 ####[facility] LABCLIA [id number] [place] [address] [place] AMERICAEosinophils (Bld) [#/Vol]0.21 10*3/uLNormal<0.46[facility] on above:Order Comment: Specimen Type: BLOOD SPECIMENOrdering Facility: [facility] Address:[address] [place], [place] [address]Performed By: #### 04796-0 ####[facility] LABCLIA [id number] [place] [address] [place] AMERICAEosinophils/100 WBC (Bld)3.4 % NormalClermont County Hospital on above:Order Comment: Specimen Type: BLOOD SPECIMENOrdering Facility: [facility] Address:[address] [place], [place] [address]Performed By: #### 55366-7 ####[facility] LABIA [id number] [place] [address] [place] AMERICAErythrocyte distribution width (RBC) [Ratio]14.6 %Normal 11.5-15.0[facility] on above:Order Comment: Specimen Type: BLOOD SPECIMENOrdering Facility: [facility] Address:[address] [place], [place] [address]Performed By: #### 71980-4 ####[facility] LABIA [id number] [place] [address] [place] AMERICAHematocrit (Bld) [Volume fraction]49.7 %Kkbanm93.0-51.0 [facility] on above:Order Comment: Specimen Type: BLOOD SPECIMENOrdering Facility: [facility] Address:[address] [place], [place] [address]Performed By: #### 89686-8 ####[facility] [id number] [place] [address] [place] AMERICAHemoglobin (Bld) [Mass/Vol]15.9 g/vORuiehp14.0-17.0[facility] on above:Order Comment: Specimen Type: BLOOD SPECIMENOrdering Facility: [facility] Address:[address] [place], [place] [address]Performed By: #### 90774-8 ####[facility] [id number] [place] [address] [place] Immature granulocytes (Bld) [#/Vol]0.04 10*3/uLNormal<0.10[facility] on above:Order Comment: Specimen Type: BLOOD SPECIMENOrdering Facility: [facility] Address:[address] [place], [place] [address]Performed By: #### 27194-5 ####[facility] [id number] [place] [address] [place] Immature granulocytes/100 WBC (Bld)0.6 %NormalClermont County Hospital on above:Order Comment: Specimen Type: BLOOD SPECIMENOrdering Facility: [facility] Address:[address] [place] [address] Performed By: #### 82361-7 ####[facility] LABCLIA [id number] [place] [address] [place] Lymphocytes (Bld) [#/Vol]1.10 10*3/uLNormal1.00-4.00[facility] Comment on above:Order Comment: Specimen Type: BLOOD SPECIMENOrdering Facility: [facility] Address:[address] [place] [address] Performed By: #### 89197-6 ####[facility] LABCLIA [id number] [address] [place] Lymphocytes/100 WBC (Bld)17.9 %NormalClermont County Hospital on above: Order Comment: Specimen Type: BLOOD SPECIMENOrdering Facility: [facility] Address:[address] [place], [place] [address]Performed By: #### 04174- 8 ####[facility] LABCLIA [id number] [address] (RBC) [Entitic mass]26.8 pg Lgwnan18.0-34.0[facility] on above:Order Comment: Specimen Type: BLOOD SPECIMENOrdering Facility: [facility] Address:[address] [place], [place] [address]Performed By: #### 27031-5 ####[facility] LABCLIA [id number] [address] (RBC) [Mass/Vol]32.0 g/dL Xyarqc48.5-36.0[facility] on above:Order Comment: Specimen Type: BLOOD SPECIMENOrdering Facility: [facility] Address:[address] [place], [place] [address]Performed By: #### 79930-3 ####[facility] LABCLIA [id number] [place] [address] [place] AMERICAMCV (RBC) [Entitic vol]83.8 fL Qxewoy28.0-100.0[facility] on above:Order Comment: Specimen Type: BLOOD SPECIMENOrdering Facility: [facility] Address:[address] [place], [place] [address]Performed By: #### 65819-1 ####[facility] LABIA [id number] [place] [address] [place] AMERICAMonocytes (Bld) [#/Vol]0.50 10*3/uLNormal<0.87[facility] on above:Order Comment: Specimen Type: BLOOD SPECIMENOrdering Facility: [facility] Address:[address] [place], [place] [address]Performed By: #### 39693-2 ####[facility] LABIA [id number] [place] [address] [place] AMERICAMonocytes/100 WBC (Bld)8.1 % NormalClermont County Hospital on above:Order Comment: Specimen Type: BLOOD SPECIMENOrdering Facility: [facility] Address:[address] [place], [place] [address]Performed By: #### 18848-5 ####[facility] LABIA [id number] [place] [address] [place] AMERICANeutrophils (Bld) [#/Vol]4.22 10*3/uLNormal1.45-7.50[facility] on above:Order Comment: Specimen Type: BLOOD SPECIMENOrdering Facility: [facility] Address:[address] [place], [place] [address]Performed By: #### 48899-7 ####[facility] LABIA [id number] [place] [address] [place] AMERICANeutrophils/100 WBC (Bld)68.5 %NormalClermont County Hospital on above:Order Comment: Specimen Type: BLOOD SPECIMENOrdering Facility: [facility] Address:[address] [place] [address] Performed By: #### 28651-5 ####[facility] LABCLIA [id number] [place] [address] [place] Nucleated RBC (Bld) [#/Vol]10*3/uLNormal<0.01[facility] on above:Order Comment: Specimen Type: BLOOD SPECIMENOrdering Facility: [facility] Address:[address] [place] [address] Performed By: #### 20071-5 ####[facility] LABCLIA [id number] [place] [address] [place] Nucleated RBC/100 WBC (Bld) [Ratio]0.0 /100 WBCNormalCWayne Hospital Comment on above:Order Comment: Specimen Type: BLOOD SPECIMENOrdering Facility: [facility] Address:[address] [place] [address] Performed By: #### 07248-6 ####[facility] LABCLIA [id number] [place] [address] [place] Platelet mean volume (Bld) [Entitic vol]12.3 fLNormal9.0-12.7C[facility] on above:Order Comment: Specimen Type: BLOOD SPECIMENOrdering Facility: [facility] Address:[address] [place], [place] [address]Performed By: #### 56299-2 ####[facility] LABCLIA [id number] [place] [address] [place] Platelets (Bld) [#/Vol]165 10*3/lNWmghob759-499CiblmrexzClermont County Hospital on above:Order Comment: Specimen Type: BLOOD SPECIMENOrdering Facility: [facility] Address:[address] [place] [address] Performed By: #### 32295-5 ####[facility] LABIA [id number] [place] [address] [place] RBC (Bld) [#/Vol]5.93 10*6/uLNormal4.20-6.00[facility] on above:Order Comment: Specimen Type: BLOOD SPECIMENOrdering Facility: [facility] Address:[address] [place], [place] [address]Performed By: #### 96354-7 ####[facility] [id number] [place] [address] JOHN OF GOD HOSPITALWBC (Bld) [#/Vol]6.16 10*3/uLNormal3.70-11.00[facility] on above:Order Comment: Specimen Type: BLOOD SPECIMENOrdering Facility: [facility] Address:[address] [place], [place] [address]Performed By: #### 93910-3 ####[facility] [id number] [place] [address] [place] AMERICAComprehensive metabolic 2000 panelon 01-93-5613Mexpsoo [Mass/Vol]4.9 g/dLNormal3.9-4.9C[facility] on above:Order Comment: Specimen Type: BLOOD SPECIMENOrdering Facility: [facility] Address:[address] [place], [place] [address]Performed By: #### 12280-7 ####[facility] [id number] [place] [address] [place] ALP [Catalytic activity/Vol]107 U/FRostfj65-610EmghcrjxaClermont County Hospital on above:Order Comment: Specimen Type: BLOOD SPECIMENOrdering Facility: [facility] Address:[address] [place] [address] Performed By: #### 33910-7 ####[facility] LABCL[facility] [id number] [address] [address] [place] [Catalytic activity/Vol]198 U/SVhfj05-75BdoegsdrvClermont County Hospital on above:Order Comment: Specimen Type: BLOOD SPECIMENOrdering Facility: [facility] Address:[address] [place], [place] [address]Performed By: #### 25902-9 ####[facility]CLIA [id number] [place] [address] [place] AMERICAAnion gap [Moles/Vol] 14 mmol/LNormal8-15[facility] on above:Order Comment: Specimen Type: BLOOD SPECIMENOrdering Facility: [facility] Address:[address] [place], [place] [address]Performed By: #### 84889-2 ####[facility] LABCLIA [id number] [place] [address] [place] [Catalytic activity/Vol]164 U/GEndd77-38WcdzvqycaClermont County Hospital on above:Order Comment: Specimen Type: BLOOD SPECIMENOrdering Facility: [facility] Address:[address] [place], [place] [address]Performed By: #### 73352-7 ####[facility] LABCLIA [id number] [place] [address] [place] AMERICABilirubin [Mass/Vol]0.8 mg/dLNormal0.2-1.3CWayne HealthCare [facility] on above:Order Comment: Specimen Type: BLOOD SPECIMENOrdering Facility: [facility] Address:[address] [place], [place] [address]Performed By: #### 83840-3 ####[facility] LABCLIA [id number] [place] [address] [place] AMERICACalcium [Mass/Vol]10.2 mg/dLNormal8.5-10.2C[facility] Comment on above:Order Comment: Specimen Type: BLOOD SPECIMENOrdering Facility: [facility] Address:[address] [place] [address] Performed By: #### 90196-6 ####[facility] LABCLIA [id number] [place] [address] [place] Chloride [Moles/Vol]100 mmol/VQduyvr22-703YizuceuppClermont County Hospital on above:Order Comment: Specimen Type: BLOOD SPECIMENOrdering Facility: [facility] Address:[address] [place], [place] [address]Performed By: #### 22111-3 ####[facility] LABCLIA [id number] [place] [address] [place] AMERICACO2 [Moles/Vol]22 mmol/BSedsej97-13YpsjvmbrhOhioHealth Mansfield Hospitalment on above:Order Comment: Specimen Type: BLOOD SPECIMENOrdering Facility: [facility] Address:[address] [place], [place] [address]Performed By: #### 47724-3 ####[facility] LABCLIA [id number] [place] [address] [place] AMERICACreatinine [Mass/Vol]0.95 mg/dL Normal0.73-1.22[facility] Medical CenterComuniversity of michigan health on above:Order Comment: Specimen Type: BLOOD SPECIMENOrdering Facility: [facility] Address:[address] [place], [place] [address]Performed By: #### 27211-9 ####[facility] LABCLIA [id number] [place] [address] [place] AMERICACreatinine and Glomerular filtration rate.predicted panel (S/P/Bld)108 mL/min/1.73m???Normal>=60[facility] on above:Order Comment: Specimen Type: BLOOD SPECIMENOrdering Facility: [facility] Address:[address] [place], [place] [address]Result Comment: Estimated Glomerular Filtration Rate (eGFR) is calculated using the 2020 CKD-EPI creatinine equation. This equation utilizes serum creatinine, sex, and age as parameters. The creatinine assay has traceable calibration to isotope dilution-mass spectrometry. Refer to KDIGO guidelines for clinical interpretation. In patients with unstable renal function, e.g. those with acute kidney injury, the eGFR may not accurately reflect actual GFR.Performed By: #### 46342-3 ####[facility] LABIA [id number] [place] [address] [place] AMERICAGlucose [Mass/Vol]106 mg/eNBaoh13-16NfqxuivwiUniversity Hospitals Parma Medical CenterComment on above:Order Comment: Specimen Type: BLOOD SPECIMENOrdering Facility: [facility] Address:[address] [place], [place] [address]Result Comment: The [place] Diabetes Association (ADA) provides guidance for cutoff [...] Standards of Medical Care in Diabetes 2016, [place] Diabetes Association. Diabetes Care. 2016.39(Suppl 1).Performed By: #### 32397-4 ####[facility] LABIA [id number] [place] [id number] [place] AMERICAPotassium [Moles/Vol]4.5 mmol/LNormal3.7-5.1[facility] Comment on above:Order Comment: Specimen Type: BLOOD SPECIMENOrdering Facility: [facility] Address:[address] [place] [address] Performed By: #### 43112-7 ####[facility] LABIA [id number] [place] [address] [place] Protein [Mass/Vol]7.8 g/dLNormal6.3-8.0[facility] on above:Order Comment: Specimen Type: BLOOD SPECIMENOrdering Facility: [facility] Address:[address] [place], [place] [address]Performed By: #### 89250-1 ####[facility] LABCLIA [id number] [place] [address] [place] AMERICASodium [Moles/Vol]136 mmol/TQlotat444-324IrjdhvkesClermont County Hospital on above:Order Comment: Specimen Type: BLOOD SPECIMENOrdering Facility: [facility] Address:[address] [place], [place] [address]Performed By: #### 78239-1 ####[facility] LABCLIA [id number] [place] [address] [place] AMERICAUrea nitrogen [Mass/Vol]10 mg/dL Normal9-24[facility] on above:Order Comment: Specimen Type: BLOOD SPECIMENOrdering Facility: [facility] Address:[address] [place], [place] [address]Performed By: #### 36966-6 ####[facility] LABCLIA [id number] [place] [address] [place] GJHQDYAZVJ47bo 87-75-0870YGE08JjxejbJsbszjkhw [facility] HISTORY PHYSICALon 73-06-2019TQZFGGX PHYSICALNormalCWayne HospitalPT panel Coag (PPP)on 02-65-9896IVB Coag (PPP) [Relative time]1.1 {INR}Normal 0.9-1.3CWay[facility] on above:Order Comment: Specimen Type: BLOOD SPECIMENOrdering Facility: [facility] Address:[address] [place], [place] [address]Result Comment: Vitamin K Antagonist (VKA) Therapeutic Range: INR 2 to 3 (Target INR of 2.5)Note: For patients treated with VKA drugs, such as warfarin, the [place] [employer] 2012 Guideline recommends [...] al. Chest 2012, 141:7S-47SNishimradha RA, et al. [facility] 2017, 70: 252-289Performed By: #### 52397-8, 31236-0 ####[facility] LABCLIA [id number] [place] [address] [place] AMERICAPT Coag (PPP) [Time]11.2 sNormal9.7-13.0[facility] on above:Order Comment: Specimen Type: BLOOD SPECIMENOrdering Facility: [facility] Address:[address] [place] [address] Performed By: #### 24066-4, 43533-2 ####[facility] LABCLIA [id number] [address] [place] TYPE AND SCREEN,30 DAYon 19-41-7506LGRWRpwfbtXtczcwkkvSamaritan North Health Center on above:Order Comment: Specimen Type: BLOOD SPECIMENOrdering Facility: [facility] Address:[facility] [place] [address] Performed By: #### [id number] ####[facility] BLOOD BANKCLIA [id number] [place] [address] [place] AMERICAHISTORICAL AB SCR STATUSNegativeNoSamaritan North Health Center on above:Order Comment: Specimen Type: BLOOD SPECIMENOrdering Facility: [facility] Address:[address] [place], [place] [address]Performed By: #### TSCR30 ####[facility] BLOOD BANKCLIA [id number] [place] [address] [place] AMERICARh Nom (Bld)PositiveNormalCWayne Hospital Comment on above:Order Comment: Specimen Type: BLOOD SPECIMENOrdering Facility: [facility] Address:[address] [place] [address] Performed By: #### [id number] ####[facility] BLOOD BANKCLIA [id number] [address] STATES OF [address] [facility] GOD HOSPITALaPTT PPPon 06-29-2024 aPTT Coag (PPP) [Time]27.7 bHlmizj87.0-32.4CWayne HospitalComment on above:Order Comment: Specimen Type: BLOOD SPECIMENOrdering Facility: [facility] Address:[address] [place], [place] [address]Result Comment: Frozen Plasma AliquotPerformed By: #### 03184-4, 80391-6 ####[facility] LABCLIA [id number] [address] 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 Jayleen Becker for an opinion regarding hernia. My final recommendations will be communicated back to the requesting physician by way of shared medical record or letter via US mail [facility] - HISTORY AND [...] transfusion Pneumonia 03/21/2010 SBO (small bowel obstruction) ([facility]) 11/06/2015 - CT : bowl obstruction with transition point at the [facility] -NPO -IVF -pain control -Phenergen for n/v [...] INTESTINE 08/31/2010 Performed by FRANCO GARCIA at [facility] PAST SURGICAL HISTORY OF 03/2008 2 lung [...] 09/17/2023) naloxone (more content not included)...NormalHillcrest HospitalCNOVNormal [facility] Medical CenterA1AT SerPl-mCncon 22-33-8812Yhiyn 1 antitrypsin [Mass/Vol]131 mg/mKXjvpda34-686KejebcmueUniversity Hospitals Parma Medical CenterComuniversity of michigan health on above:Order Comment: Specimen Type: BLOOD SPECIMENOrdering Facility: [facility] Address:[address] [place], [place] [address]Performed By: #### 1825- 9, 2064-4, 55437-9, 73445-3 ####[facility] LABCLIA [id number] [place] [address] [place] AMERICABLOOD TB SCREEN, INCUBATEDon 05-21-2024M. tuberculosis tuberculin stim IFN-g Ql (Bld) NegativeNormalCWayne HospitalComuniversity of michigan health on above:Order Comment: Specimen Type: BLOOD SPECIMENOrdering Facility: [facility] Address: [address] [place], [place] [address]Performed By: #### INTPGP ####[facility] LABCLIA [id number] [place] [address] [place] AMERICAMITOGEN MINUS NIL>9.98Normal>=0.50[facility] on above:Order Comment: Specimen Type: BLOOD SPECIMENOrdering Facility: [facility] Address: [address] [place], [place] [address]Performed By: #### INTPGP ####[facility] LABCLIA [id number] [place] [address] [place] TB GAMMA INTERPRETATIONNormalCWayne HospitalComuniversity of michigan health on above:Order Comment: Specimen Type: BLOOD SPECIMENOrdering Facility: [facility] Address: [address] [place], [place] [address]Performed By: #### INTPGP ####[facility] LABCLIA [id number] [id number], [place] [address] [place] AMERICATB NIL0.02 IU/mLNormal<=8.00 [facility] on above:Order Comment: Specimen Type: BLOOD SPECIMENOrdering Facility: [facility] Address: [address] [place], [place] [address]Performed By: #### INTPGP ####[facility] LABCLIA [id number] [place] [address] [place] AMERICATB1 AG MINUS NIL0.19 IU/mLNormal<0.35[facility] on above:Order Comment: Specimen Type: BLOOD SPECIMENOrdering Facility: [facility] Address: [address] [place], [place] [address]Performed By: #### INTPGP ####[facility] LABCLIA [id number] [place] [address] [place] TB2 AG MINUS NIL0.15 IU/mLNormal<0.35[facility] on above: Order Comment: Specimen Type: BLOOD SPECIMENOrdering Facility: [facility] Address: [address] [place], [place] [address]Performed By: #### INTPGP ####[facility] LABCLIA [id number] [place] [address] [place] AMERICACBC panel Auto (Bld)on 74-05-9800Eyneyvwofup distribution width (RBC) [Ratio]15.5 %High11.5-15.0 [facility] on above:Order Comment: Specimen Type: BLOOD SPECIMENOrdering Facility: [facility] Address:[address] [place], [place] [address]Performed By: #### 62633-5 ####[facility] LABCLIA [id number] [place] [address] [place] AMERICAHematocrit (Bld) [Volume fraction]49.8 %Pmjcoh52.0-51.0[facility] on above:Order Comment: Specimen Type: BLOOD SPECIMENOrdering Facility: [facility] Address:[address] [place], [place] [address]Performed By: #### 12669-4 ####[facility] LABIA [id number] [place] [address] [place] Hemoglobin (Bld) [Mass/Vol]16.2 g/vNNwaeqs83.0-17.0[facility] Comment on above:Order Comment: Specimen Type: BLOOD SPECIMENOrdering Facility: [facility] Address:[address] [place] [address] Performed By: #### 01204-6 ####[facility] LABIA [id number] [place] [address] [place] MCH (RBC) [Entitic mass]26.6 kzLboxeg18.0-34.0[facility] Medical CenterComment on above:Order Comment: Specimen Type: BLOOD SPECIMENOrdering Facility: [facility] Address:[address] [place] [address] Performed By: #### 32168-6 ####[facility] [id number] [place] [address] [place] MCHC (RBC) [Mass/Vol]32.5 g/oUAvvyqp28.5-36.0[facility] Medical CenterComment on above:Order Comment: Specimen Type: BLOOD SPECIMENOrdering Facility: [facility] Address:[address] [place] [address] Performed By: #### 73589-7 ####[facility] LABIA [id number] [place] [address] [place] MCV (RBC) [Entitic vol]81.6 uAJukvev80.0-100.0[facility] Medical CenterComuniversity of michigan health on above:Order Comment: Specimen Type: BLOOD SPECIMENOrdering Facility: [facility] Address:[address] [place] [address] Performed By: #### 56421-8 ####[facility] LABIA [id number] [place] [address] [place] Nucleated RBC (Bld) [#/Vol]10*3/uLNormal<0.01[facility] on above:Order Comment: Specimen Type: BLOOD SPECIMENOrdering Facility: [facility] Address:[address] [place] [address] Performed By: #### 31112-7 ####[facility] LABIA [id number] [place] [address] [place] Platelet mean volume (Bld) [Entitic vol]11.7 fLNormal9.0-12.7C[facility] on above:Order Comment: Specimen Type: BLOOD SPECIMENOrdering Facility: [facility] Address:[address] [place], [place] [address]Performed By: #### 29251-9 ####[facility] LABIA [id number] [place] [address] [place] Platelets (Bld) [#/Vol]156 10*3/wLMrnkrx748-914RiegbtdowClermont County Hospital on above:Order Comment: Specimen Type: BLOOD SPECIMENOrdering Facility: [facility] Address:[address] [place] [address] Performed By: #### 25952-5 ####[facility] LABIA [id number] [place] [address] [place] RBC (Bld) [#/Vol]6.10 10*6/uLHigh4.20-6.00[facility] on above:Order Comment: Specimen Type: BLOOD SPECIMENOrdering Facility: [facility] Address:[address] [place], [place] [address]Performed By: #### 57003-0 ####[facility] LABIA [id number] [place] [address] [place] AMERICAWBC (Bld) [#/Vol]7.19 10*3/uLNormal3.70-11.00[facility] on above:Order Comment: Specimen Type: BLOOD SPECIMENOrdering Facility: [facility] Address:[address] [place], [place] [address]Performed By: #### 10268-1 ####[facility] LABCLIA [id number] [address]UED[address]CR SerPl-mCncon 88-48-4575MIE [Mass/Vol]1.3 mg/dLHigh<0.9C[facility] on above:Order Comment: Specimen Type: BLOOD SPECIMENOrdering Facility: [facility] Address:[address] [place], [place] [address]Performed By: #### 1987- 5, HSTNT ####[facility] LABCLIA [id number] [address]ETCT ENTEROGRAPHY W IVCONon 98-31-6322OU ENTEROGRAPHY W IVCONNormalUniversity Hospitals Parma Medical CenterCT Small bowel W contrast PO and W contrast Shadi 73-56-4041XBRXFAIGWW: Persistent but improved mild changes of active inflammatory small bowel Crohn's disease with luminal narrowing involving the neoterminal ileum. Scattered fluid-filled upstream small bowel loops, some which are mildly dilated, similar to prior. Penetrating: Absent Hepatic steatosis. Psychiatric Assistant: [facility] SERVICESSapna Transcribe Date/Time: May 21 2024 3:22P Dictated by : UCHE ACOSTA MD This examination was interpreted and the report reviewed and electronically signed by: UCHE ACOSTA MD on May 21 2024 4:24PM [facility] DIVISION OF RADIOLOGY* * *Final Report* * * DATE OF EXAM: May 21 2024 2:45PM [facility] 0545 - CT ENTEROGRAPHY W IVCON / [...] Tissues: No acute findings. Lung Bases: Unremarkable. Clarification Operator (topogram) images: No additional findings. DIVISION OF RADIOLOGYProvider, [facility] [place] - 05/21/2024 * * *Final Report* * * DATE OF EXAM: May 21 2024 2:45PM [facility] 0545 - CT ENTEROGRAPHY W IVCON / [...] Tissues: No acute findings. Lung Bases: Unremarkable. Clarification Operator (topogram) images: No additional findings. IMPRESSION IMPRESSION: Persistent but improved mild changes of active inflammatory small bowel Crohn's disease with luminal narrowing involving the neoterminal ileum. Scattered fluid-filled upstream small bowel loops, some which are mildly dilated, similar to prior. Penetrating: Absent Hepatic steatosis. Psychiatric Assistant: PSCSapna Transcribe Date/Time: May 21 2024 3:22P Dictated by : UCHE ACOSTA MD This examination was interpreted and the report reviewed and electronically signed by: UCHE ACOSTA MD on May 21 2024 4:24PM [facility] HospitalRad[facility] observation (narrative)[facility] Small bowel W contrast PO and W contrast IVOrdered By: Ccf Provider on 05-21-2024 [facility] HospitalCeruloplasmin SerPl-mCncon 70-73-3619Uhfpynmhefkrh [Mass/Vol]20 mg/cSQzaesi24-79BuzribibmClermont County Hospital on above:Order Comment: Specimen Type: BLOOD SPECIMENOrdering Facility: [facility] Address:[address] [place], [place] [address]Performed By: #### 1825-9, 2063-4, 88830-7, 18660-1 ####[facility] LABCLIA [id number] [place] [address] [place] AMERICAComprehensive metabolic 2000 panelon 86-84-0189Dpjllmi [Mass/Vol]4.9 g/dLNormal3.9-4.9 [facility] on above:Order Comment: Specimen Type: BLOOD SPECIMENOrdering Facility: [facility] Address:[address] [place], [place] [address]Performed By: #### 1825-9, 2063-4, 71392-3, 36701-2 ####[facility] LABIA [id number] [place] [id number] [place] AMERICAALP [Catalytic activity/Vol]119 U/JQdft34-165UxklpwljxClermont County Hospital on above:Order Comment: Specimen Type: BLOOD SPECIMENOrdering Facility: [facility] Address:[address] [place], [place] [address]Performed By: #### 1825-9, 2063-4, 46481-2, 42388-1 ####[facility] LABIA [id number] [place] [id number] [place] AMERICAALT [Catalytic activity/Vol]156 U/HEihg73-95UfwuwubipClermont County Hospital on above:Order Comment: Specimen Type: BLOOD SPECIMENOrdering Facility: [facility] Address:[address] [place], [place] [address]Performed By: #### 1825- 9, 2063-4, 48369-8, 53227-6 ####[facility] LABCLIA [id number] [place] [id number] [place] AMERICAAnion gap [Moles/Vol]14 mmol/LNormal8-15[facility] on above: Order Comment: Specimen Type: BLOOD SPECIMENOrdering Facility: [facility] Address:[address] [place], [place] [address]Performed By: #### 1825- 9, 2063-, 44577-9, 82863-1 ####[facility] LABCLIA [id number] [place] [id number] [place] AMERICAAST [Catalytic activity/Vol]108 U/BYkgf42-03RgdvpltnzClermont County Hospital on above:Order Comment: Specimen Type: BLOOD SPECIMENOrdering Facility: [facility] Address:[address] [place], [place] [address]Performed By: #### 1825-9, 2064-03, 70915-1, 00434-4 ####[facility] LABCLIA [id number] [place] [id number] [place] Bilirubin [Mass/Vol]1.3 mg/dLNormal0.2-1.3C[facility] on above:Order Comment: Specimen Type: BLOOD SPECIMENOrdering Facility: [facility] Address:[address] [place], [place] [address]Performed By: #### 1825-9, 2064-03, 51490-1, 29552-7 ####[facility] LABCLIA [id number] [place] [id number] [place] Calcium [Mass/Vol]10.2 mg/dLNormal8.5-10.2C[facility] on above:Order Comment: Specimen Type: BLOOD SPECIMENOrdering Facility: [facility] Address:[address] [place], [place] [address]Performed By: #### 1825-9, 2063-4, 72412-7, 45568-8 ####[facility] LABCLIA [id number] [place] [id number] [place] Chloride [Moles/Vol]99 mmol/JNmbkor54-618XfvwnbjhsClermont County Hospital on above:Order Comment: Specimen Type: BLOOD SPECIMENOrdering Facility: [facility] Address:[address] [place], [place] [address]Performed By: #### 1825-9, 2063-4, 87327-8, 97189-8 ####[facility] LABCLIA [id number] [place] [address] [place] CO2 [Moles/Vol]20 mmol/GYvv12-28JibjwipxhClermont County Hospital on above:Order Comment: Specimen Type: BLOOD SPECIMENOrdering Facility: [facility] Address:[address] [place], [place] [address]Performed By: #### 1825- 9, 2063-4, 43684-9, 11356-0 ####[facility] LABCLIA [id number] [place] [address] [place] Creatinine [Mass/Vol]1.01 mg/dLNormal0.73-1.22[facility] on above:Order Comment: Specimen Type: BLOOD SPECIMENOrdering Facility: [facility] Address:[address] [place] [address] Performed By: #### 1825-9, 2063-4, 32105-9, 88217-6 ####[facility] LABIA [id number] [place] [address] [place] AMERICACreatinine and Glomerular filtration rate.predicted panel (S/P/Bld)101 mL/min/1.73m???Normal>=60[facility] on above:Order Comment: Specimen Type: BLOOD SPECIMENOrdering Facility: [facility] Address:[address] [place], [place] [address]Result Comment: Estimated Glomerular Filtration Rate (eGFR) is [...] reflect actual GFR.Performed By: #### 1825-9, 2063-, 03771-1, 79921-6 ####[facility] LABCLIA [id number] [address] [address] [place] AMERICAGlucose [Mass/Vol]92 mg/jOLrhmst85-18FmcmpxydlClermont County Hospital on above:Order Comment: Specimen Type: BLOOD SPECIMENOrdering Facility: [facility] Address:[address] [place], [place] [address]Result Comment: The [place] Diabetes [employer] (ADA) provides guidance for cutoff [...] Standards of Medical Care in Diabetes 2016, [place] [employer]. Diabetes Care. 2016.39(Suppl 1). Performed By: #### 1825-9, 2064-03, 91429-1, 99018-0 ####[facility] LABIA [id number] [address] [address] [place] AMERICAPotassium [Moles/Vol]4.1 mmol/LNormal3.7-5.1C[facility] on above:Order Comment: Specimen Type: BLOOD SPECIMENOrdering Facility: [facility] Address:[address] [place], [place] [address]Performed By: #### 1825-9, 2063-4, 27613-7, 12837-5 ####[facility] LABCLIA [id number] [place] [id number] [place] AMERICAProtein [Mass/Vol]7.9 g/dLNormal6.3-8.0[facility] on above:Order Comment: Specimen Type: BLOOD SPECIMENOrdering Facility: [facility] Address:[address] [place], [place] [address]Performed By: #### 1825-9, 2063-4, 56109-3, 93963-5 ####[facility] LABIA [id number] [place] [id number] [place] AMERICASodium [Moles/Vol]133 mmol/RNrm419-955BhyicjnuxClermont County Hospital on above:Order Comment: Specimen Type: BLOOD SPECIMENOrdering Facility: [facility] Address:[address] [place], [place] [address]Performed By: #### 1825-9, 2063-4, 17489-1, 71865-6 ####[facility] LABIA [id number] [place] [id number] [place] AMERICAUrea nitrogen [Mass/Vol]14 mg/dLNormal9-24[facility] CenterComuniversity of mich[facility] health on above:Order Comment: Specimen Type: BLOOD SPECIMENOrdering Facility: [facility] Address:[address] [place], [place] [address]Performed By: #### 1825-9, 2063-4, 54092-7, 05217-9 ####[facility] LABIA [id number] [place] [id number] [place] OF AMERICAD dimer FEU PPP-mCncon 05-21-2024 Fibrin D-dimer FEU (PPP) [Mass/Vol]250 ng/mL FEUNormal<500[facility] on above:Order Comment: Specimen Type: BLOOD SPECIMENOrdering Facility: [facility] Address: [address] [place] [id number] By: #### 27452-2, 32062-2 ####[facility] [place] [id number] [place] [address] [place] AMERICAHBV DNA Qn (S)on [id number] DNA GERMÁN+probe Qn629 IU/mlNormalUniversity Hospitals Parma Medical CenterComment on above:Order Comment: Specimen Type: BLOOD SPECIMENOrdering Facility: [facility] Address:[address] [place], [place] [address]Result Comment: HBV DNA Detected by PCR.2.80Performed By: #### 80123-5 ####[facility] [place] [id number] [place] [address] [place] AMERICAHBV core Ab Ser Qlon 41-37-1278SJG core Ab Ql (S)PositiveAbnormalNegativeUniversity Hospitals Par[facility] Comment on above:Order Comment: Specimen Type: BLOOD SPECIMENOrdering Facility: [facility] Address:[address] [place], [place] [address]Result Comment: The result suggests either current or past infection with Hepatitis B virus. Non-specific reactivity may at times be seen with this test due to some underlying phenomena. Please correlate with HBsAg result and medical history. Performed By: #### 31428-3, 20984-6, 5195-3, 26494-8 ####[facility] [place] [id number] [place] [address] [place] AMERICAHBV surface Ab Ql (S)on 15-47-0925RHW surface Ab Qn (S)<8.00 NormalUniversity Hospitals Parma Medical CenterComuniversity of michigan health on above:Order Comment: Specimen Type: BLOOD SPECIMENOrdering Facility: [facility] Address:[address] [place], [place] [address]Result Comment: <8 mIU/mL: No serological evidence of immunity to Hepatitis B Virus.>/= 8 to <12 mIU/mL: No serological evidence of immunity to Hepatitis B Virus.>/= 12 mIU/mL: Consistentwith serological evidence of immunity to Hepatitis B Virus.Performed By: #### 17110-6, 60444-9, 5195-3, 46953-8 ####[facility] LABCLIA [id number] [address] STATES OF AMERICAHBV surface Ab Ser Ql on 32-04-5862QKX surface Ab Ql (S)NegativeNormalCWayne Hospital Comment on above:Order Comment: Specimen Type: BLOOD SPECIMENOrdering Facility: [facility] Address:[address] [place], [place] [address]Result Comment: No serological evidence of immunity to Hepatitis B Virus.Performed By: #### 99533-2, 17270-4, 5195-3, 88267-1 ####[facility] LABCLIA [id number] [address] [place] HBV surface Ag Ser Qlon 39-94-9778KQA surface Ag Ql (S)Initially Reactive AbnormalNegativeOhioHealth Mansfield Hospitalment on above:Order Comment: Specimen Type: BLOOD SPECIMENOrdering Facility: [facility] Address:[address] [place], [place] [address]Result Comment: Please see HBsAg confirmatory assay result.Confirmatory testing for hepatitis B surface antigen has been ordered and charged.Performed By: #### 94711-2, 60055-1, 5195-3, 06498- 4 ####[facility] LABCLIA [id number] [address] [facility] HOSPITALHBV surface Ag Ql (S)Positive AbnormalNegative, Test not IndicatedClermont County Hospital on above: Order Comment: Specimen Type: BLOOD SPECIMENOrdering Facility: [facility] Address:[address] [place], [place] [address]Result Comment: The result is consistent with active Hepatitis B Virus Infection. HBsAg, however, ma y test positive up to few weeks after administration of Hepatitis B vaccine. Clinical correlation is required.Performed By: #### 02697-8, 95998-6, 5195-3, 47216-1 ####[facility] LABCLIA [id number] [place] [address] [place] AMERICAHCV Ab Ser Qlon 69-30-9614TAU Ab Ql (S)PositiveAbnormalNegativeClermont County Hospital on above:Order Comment: Specimen Type: BLOOD SPECIMENOrdering Facility: [facility] Address:[address] [place] [address] Performed By: #### 04532-1, 69672-2 ####[facility] LABIA [id number] [place] [address] [place] HCV RNA SerPl GERMÁN+probe-aCncon 83-71-0489NEP RNA GERMÁN+probe QnNot detectedNormal HCV RNA not detected by PCR.[facility] on above:Order Comment: Specimen Type: BLOOD SPECIMENOrdering Facility: [facility] Address:[address] [place], [place] [address]Performed By: #### 90523- 1, 75379-0 ####[facility] LABIA [id number] [address] STATES OF AMERICAHEP BE ANTIBODYon 79-33-6374QBU e Ab IA QlNegativeNormalNegTriHealth Good Samaritan HospitalComuniversity of michigan health on above:Order Comment: Specimen Type: BLOOD SPECIMENOrdering Facility: [facility] Address:[address] [place], [place] [address]Result Comment: This test should only be used in patients with a previously known and/or concurrentpositive HBsAG result. Along with HBeAG test, Hepatitis B e antibody test is used for monitoring the natural history of Hepatitis B virus infection and prognostication. Clinical correlation is required.Performed By: #### HBEAG, AHBE ####[facility] LABIA [id number] [place] [address] [place] AMERICAHEP BE ANTIGENon 22-01-3280QNY e Ag IA QlPositiveAbnormalNegativeUniversity [facility]als [facility] Comment on above:Order Comment: Specimen Type: BLOOD SPECIMENOrdering Facility: [facility] Address:[address] [place] [address] Performed By: #### HBEAG, AHMICHAEL ####[facility] LABIA [id number] [place] [address] [place] HIGH SENSITIVITY TROPONIN Ton 95-81-8528Ztjvbtiu T.cardiac High sensitivity method [Mass/Vol]8 ng/LNormal<12[facility] on above:Order Comment: Specimen Type: BLOOD SPECIMENOrdering Facility: [facility] Address: [address] [place], [place] [address]Result Comment: When assessing risk for acute coronary [...] 30 day MACE.Performed By: #### 1988-5, HSTNT ####[facility] [place] [id number] [place] [address] [place] AMERICAHIV 1+2 Ab IA Qlon 52-49-5341ZXC 1 and 2 Ab IA.rapid Nom (S/P/Bld)NormalClermont County Hospital on above:Order Comment: Specimen Type: BLOOD SPECIMENOrdering Facility: [facility] Address: [address] [place], [place] [address]Result Comment: Test not indicated.Performed By: #### 73402-0, 07054-0, 5195-3, 59924-2 ####[facility] LABIA [id number] [place] [address] [place] AMERICAHIV 1+2 Ab+HIV1 p24 Ag IA QlNon-ReactiveNormal NonreactiveClermont County Hospital on above:Order Comment: Specimen Type: BLOOD SPECIMENOrdering Facility: [facility] Address: [address] [place], [place] [address]Performed By: #### 19821-8, 12549-9, 5195- 3, 58522-3 ####[facility] LABCLIA [id number] [address] [address] [place] AMERICAHIV immunoassay testing algorithm interpretation (S/P/Bld) [Interp]NormalClermont County Hospital on above:Order Comment: Specimen Type: BLOOD SPECIMENOrdering Facility: [facility] Address: [address] [place] [address]Ftjqnh Comment: No evidence of HIV-1 or HIV-2 infection. Should recent infection be suspected, repeat testing may be considered 2-3 weeks after this draw.[place] Rev. Code 3701.243(E): This information has been [...] HIV test results or diagnoses.Performed By: #### 67685-0, 48642-3, 5195-3, 69084-6 ####[facility] LABCLIA [id number] [address] [address] [place] OF AMERICALKM ABon 75-36-0221ATAZN-KIDNEY MICROSOMAL ABS <1:20Normal<1:20[facility] on above:Order Comment: Specimen Type: BLOOD SPECIMENOrdering Facility: [facility] Address:[address] [place], [place] [address]Oxombr Comment: INTERPRETIVE INFORMATION: Ydxau-Ymzyzd-Ompsmzfkd Abs, IgGLiver-Kidney Microsome IgGantibody (anti-LKM), as detected byindirect immunofluorescent antibody (IFA) techniques, may beobserved in patients with autoimmune hepatitis type 2 (AIH-2),AIH-2 associated with wyozigomzzxnylkogqwihovfruif-ofnevyzlgxz-ivsfuxpwdo dystrophy (APECED),viral hepatitis C or D, and some forms of drug-induced hepatitis.This IFA does not differentiate among the four types of LKMantibodies (LKM-1, LKM-2, LKM-3, and a fourth type that wuzkqmufaaKHQ3S6 and CY antigens). Of these, anti-LKM-1 (hvvrmyigilB494MBH6) IgG antibodies are considered specific for AIH- 2.This test was developed and its performance characteristicsdetermined by [employer]. It has not been cleared orapproved by the [place] Food and Drug Administration. This test wasperformed in a CLIA certified laboratory and is intended forclinical purposes.Performed By: [address] [address]Sufsuftfur Director: Bob Heredia MD, PhDCLIA Number: [id number] By: #### [facility] ####[facility] [id number] [place], [place] [address]Yyjbwagzbvbz Ab IF Ql (S)on 05-21-2024 Mitochondria M2 Ab IA Qn (S)16.3 UnitsNormal<=20.0[facility] Comment on above:Order Comment: Specimen Type: BLOOD SPECIMENOrdering Facility: [facility] Address:[address] [place] [address] Performed By: #### 67837-1, 49986-2 ####[facility] LABCLIA [id number] [address] STATES OF [facility] Mitochondria M2 Ab Ql (S)NegativeNormalNegativeClermont County Hospital on above:Order Comment: Specimen Type: BLOOD SPECIMENOrdering Facility: [facility] Address:[address] [place], [place] [address]Result Comment: Anti-mitochondrial antibody test is used as an aid in diagnosis of primary biliary cholangitis. Clinical correlation is required.Performed By: #### 17382-6, 94800-3 ####[facility] LABCLIA [id number] [place] [address] [place] AMERICANT-proBNP SerPl-mCnc on 49-47-3239Deohgdhvuuz peptide.B prohormone N-Terminal [Mass/Vol]<36Normal<125 [facility] on above:Order Comment: Specimen Type: BLOOD SPECIMENOrdering Facility: [facility] Address: [address] [place] [address]Jrmsxhite By: #### 1825-9, 2064-4, 13314-1, 74795-7 ####[facility] LABIA [id number] [place] [address] [place] BEAUMONT HOSPITALuclear Ab IA Ql (S)on 52-05-6802KQF SCR QUALNegativeNormalNegativeClermont County Hospital on above:Order Comment: Specimen Type: BLOOD SPECIMENOrdering Facility: [facility] Address:[address] [place], [place] [address]Result Comment: The qualitative antinuclear antibody screen test performed using the following antigens: dsDNA, Chromatin, Ribosomal P, SS-A 60, SS-A 52, SS-B, Sm, SmRNP, CADD TECHNICIAN A, CADD TECHNICIAN 68, Scl-70, Dara-1,and Centromere B. Methodology: Multiplex flow immunoassay.Performed By: #### 70077-7 ####[facility] LABIA [id number] [place] [id number] [place] AMERICAPT panel Coag (PPP)on 63-47-7211OYK Coag (PPP) [Relative time]1.1 {INR} Normal0.9-1.3CWay[facility] on above:Order Comment: Specimen Type: BLOOD SPECIMENOrdering Facility: [facility] Address:[address] [place], [place] [address]Result Comment: Vitamin K Antagonist (VKA) Therapeutic Range: INR 2 to 3 (Target INR of 2.5)Note: For patients treated with VKA drugs, such as warfarin, the [employer] 2012 G uideline [...] al. Chest 2012, 141:7S-47SNishimura RA, et al. [facility] 2017, 70: 252-289Performed By: #### 18504-1, 77014-5 ####[facility] LABCLIA [id number] [place] [address] [place] AMERICAPT Coag (PPP) [Time]11.5 sNormal9.7-13.0[facility] on above:Order Comment: Specimen Type: BLOOD SPECIMENOrdering Facility: [facility] Address:[address] [place] [address] Performed By: #### 42089-4, 70841-0 ####[facility] [id number] [place] [address] [place] Smooth muscle Ab Ql (S)on 76-55-9901AULGF SMOOTH MUSCLE IGG QUALITATIVENegative NormalNegativeClermont County Hospital on above:Order Comment: Specimen Type: BLOOD SPECIMENOrdering Facility: [facility] Address:[address] [place], [place] [address]Performed By: #### 52462-0, 92032-3 ####[facility] [id number] [place] [address] [place] AMERICAACTIN SMOOTH MUSCLE IGG QUANTITATIVE7 UnitsNormal<20[facility] on above:Order Comment: Specimen Type: BLOOD SPECIMENOrdering Facility: [facility] Address:[address] [place], [place] [address]Performed By: #### 18803- 1, 01096-1 ####[facility] LABIA [id number] [facility] [place] [address] [place] AMERICACNOVon 91-79-2054BUTT NormalUniversity Hospitals Parma Medical CenterCNPNon 87-77-5577FHKZZyzpeiFuurnwglx Clinic ClevelandANA SCREEN, IFA, W/REFL TITER AND PATTERNon 60-76-3222VLE SCREEN, IFA PositiveAbnormalNEGATIVEQuest DiagnosticsComment on above:Result Comment: MONA IFA is a first line screen for detecting the presence of up to approximately 150 autoantibodies in various autoimmune diseases. A positive MONA IFA result is suggestive of autoimmune disease and reflexes to titer and pattern. Further laboratory testing may be considered if clinically indicated. For additional information, please refer to http://education.Smart Mocha/faq/EYV358 (This link is being provided for informational/ educational purposes only.)Performed By: #### 899, 33139, 482, %78430, 7600, 496, 88813, 5616, %25575, 866, 6399 #### [facility] [address], [address] [place], [place] [address] Computer Network Engineer: Jeremías Martinez MDANTINUCLEAR ANTIBODIES TITER AND PATTERNon 28-12-9206BDN PATTERNCytoplasmicAbnormalQuest DiagnosticsComment on above:Result Comment: The presence of cytoplasmic fluorescence was noted on the HEp-2 slide. Other reactivities (e.g., anti- mitochondrial antibodies or anti-smooth muscle antibodies) may be responsible for this fluorescence. The clinical significance of this finding is uncertain. Clinical correlation is recommended. AC-15 to AC-23: Cytoplasmic International Consensus on MONA Patterns (https://doi.org/10.1515/lmzb-1583-1473)Performed By: #### 899, 47320, 482, %69268, 7600, 496, 72304, 5616, %57036, 866, 6399 #### [facility] [address], [address] [place] [id number] Computer Network Engineer: Jeremías Martinez MDANA TITER1:80HighQuest DiagnosticsComment on above:Result Comment: A low level MONA titer may be present in pre-clinical autoimmune diseases and normal individuals. Reference Range <1:40 Negative 1:40-1:80 Low Antibody Level >1:80 Elevated Antibody LevelPerformed By: #### 899, 29438, 482, %22810, 7600, 496, 04605, 5616, %31467, 866, 6399 #### [facility] of [address], [address] [place] [address] Computer Network Engineer: Jeremías Martinez MDCBC (INCLUDES DIFF/PLT)on 31-49-7965Timjdfifb (Bld) [#/Vol]0.082 10*3/uLNormal0-200Quest DiagnosticsComment on above:Performed By: #### 899, 95152, 482, %12442, 7600, 496, 49178, 5616, %73525, 866, 6399 #### [facility] [address], [address] [place] [address] Computer Network Engineer: Jeremías Martinez MDBasophils/100 WBC (Bld)1.2 %NormalQuest DiagnosticsComment on above:Performed By: #### 899, 52437, 482, %16242, 7600, 496, 30500, 5616, %33724, 866, 6399 #### [facility] [address], [address] [place] [address] Computer Network Engineer: Jeremías Martinez MDEosinophils (Bld) [#/Vol]0.442 10*3/uLNormal 15-500Quest DiagnosticsComment on above:Performed By: #### 899, 93441, 482, %84610, 7600, 496, 00430, 5616, %73752, 866, 6399 #### [facility] [address], [address] [place] [address] Computer Network Engineer: Jeremías KAMosinophils/100 WBC (Bld)6.5 %NormalQuest DiagnosticsComment on above:Performed By: #### 899, 18754, 482, %13186, 7600, 496, 76469, 5616, %24307, 866, 6399 #### [facility] [address], [address] [place] [address] Computer Network Engineer: Jeremías Martinez MDErythrocyte distribution width (RBC) [Ratio] 17.2 %High11.0-15.0Quest DiagnosticsComment on above:Performed By: #### 899, 44567, 482, %30861, 7600, 496, 83513, 5616, %85936, 866, 6399 #### [facility] [place] [address] Computer Network Engineer: Jeremías Martinez MDHematocrit (Bld) [Volume fraction]51.3 %High 38.5-50.0Quest DiagnosticsComment on above:Performed By: #### 899, 83183, 482, %37473, 7600, 496, 61167, 5616, %47673, 866, 6399 #### [facility] [place] [address] Computer Network Engineer: Jeremías Martinez MDHemoglobin (Bld) [Mass/Vol]17.1 g/dLNormal 13.2-17.1Quest DiagnosticsComment on above:Performed By: #### 899, 47042, 482, %22364, 7600, 496, 31930, 5616, %33673, 866, 6399 #### [facility] [place] [address] Computer Network Engineer: Jeremías Martinez MDLymphocytjanelle (Bld) [#/Vol]1.346 10*3/uLNormal 850-3900Quest DiagnosticsComment on above:Performed By: #### 899, 92721, 482, %07908, 7600, 496, 73006, 5616, %99277, 866, 6399 #### [facility] [place] [address] Computer Network Engineer: Jeremías Lymphocytes/100 WBC (Bld)19.8 %NormalQuest DiagnosticsComment on above:Performed By: #### 899, 50455, 482, %00061, 7600, 496, 72882, 5616, %50251, 866, 6399 #### [facility] of [address], [address] [place] [address] Computer Network Engineer: Jeremías Martinez MDMCH (RBC) [Entitic mass]26.9 pgLow27.0-33.0 [facility] DiagnosticsComment on above:Performed By: #### 899, 30030, 482, %26831, 7600, 496, 68444, 5616, %03138, 866, 6399 #### [facility] [place] [address] Computer Network Engineer: Jeremías ROGERSCHC (RBC) [Mass/Vol]33.3 g/pZVlzdag49.0-36.0 [facility] DiagnosticsComment on above:Performed By: #### 899, 65916, 482, %01490, 7600, 496, 65374, 5616, %69684, 866, 6399 #### [facility] [place] [address] Computer Network Engineer: Jeremías ROGERSCV (RBC) [Entitic vol]80.7 qJLlibny82.0-100.0 [facility] DiagnosticsComment on above:Performed By: #### 899, 75742, 482, %46347, 7600, 496, 32570, 5616, %14753, 866, 6399 #### [facility] [place] [address] Computer Network Engineer: Jeremías Martinez MDMonocytes (Bld) [#/Vol]0.428 10*3/uLNormal 200-950Quest DiagnosticsComment on above:Performed By: #### 899, 18668, 482, %54292, 7600, 496, 75256, 5616, %06422, 866, 6399 #### [facility] [place] [address] Computer Network Engineer: Jeremías Martinez MDMonocytes/100 WBC (Bld)6.3 %NormalQuest DiagnosticsComment on above:Performed By: #### 899, 20010, 482, %29431, 7600, 496, 16131, 5616, %36146, 866, 6399 #### [facility] of [place] [address] Computer Network Engineer: Jeremías Ramos (Bld) [#/Vol]4.502 10*3/uLNormal 1500-7800Quest DiagnosticsComment on above:Performed By: #### 899, 17647, 482, %49196, 7600, 496, 62050, 5616, %95335, 866, 6399 #### [facility] of [place] [address] Computer Network Engineer: Jeremías Ramos/100 WBC (Bld)66.2 %NormalQuest DiagnosticsComment on above:Performed By: #### 899, 79671, 482, %98973, 7600, 496, 33777, 5616, %26899, 866, 6399 #### [facility] of [place] [address] Computer Network Engineer: Jeremías Rodarte mean volume (Bld) [Entitic vol]11.4 fLNormal7.5-12.5Quest DiagnosticsComment on above:Performed By: #### 899, 92154, 482, %78461, 7600, 496, 44984, 5616, %69409, 866, 6399 #### [facility] of [place] [address], [address] [place] [address] Computer Network Engineer: Jeremías Campbelltemary (Bld) [#/Vol]152 10*3/uLNormal 140-400Quest DiagnosticsComment on above:Performed By: #### 899, 17339, 482, %88481, 7600, 496, 61098, 5616, %49225, 866, 6399 #### [facility] of [place] [address] [facility], [address] [place] [address] Computer Network Engineer: Jeremías Martinez [facility] ([facility]) [#/Vol]6.36 10*6/uLHigh4.20-5.80 [facility] DiagnosticsComment on above:Performed By: #### 899, 67210, 482, %37412, 7600, 496, 31091, 5616, %28429, 866, 6399 #### [facility] [place] [address] Computer Network Engineer: Jeremías Martinez [facility]DLONG [facility] ([facility]) [#/Vol]6.8 10*3/uLNormal3.8-10.8 [facility] DiagnosticsComment on above:Performed By: #### 899, 06443, 482, %46314, 7600, 496, 96405, 5616, %83034, 866, 6399 #### [facility] [place] [address] Computer Network Engineer: Jeremías Martinez MDCOMPREHENSIVE METABOLIC PANELon 04-09-2024 Albumin [Mass/Vol]5.2 g/dLHigh3.6-5.1Quest DiagnosticsComment on above:Performed By: #### 899, 14202, 482, %00084, 7600, 496, 71282, 5616, %63959, 866, 6399 #### [facility] [place] [address] Computer Network Engineer: Jeremías Martinez MDAlbumin/Globulin [Mass ratio]1.9 {ratio}Normal 1.0-2.5Quest DiagnosticsComment on above:Performed By: #### 899, 40242, 482, %25430, 7600, 496, 59581, 5616, %80474, 866, 6399 #### [facility] [address], [address] [place] [address] Computer Network Engineer: Jeremías Martinez MDALP [Catalytic activity/Vol]115 U/LNormal 36-130Quest DiagnosticsComment on above:Performed By: #### 899, 86732, 482, %09008, 7600, 496, 18960, 5616, %06817, 866, 6399 #### [facility] [address], [address] [place] [address] Computer Network Engineer: Jeremías Martinez MDALT [Catalytic activity/Vol]204 U/LHigh9-46 [facility] DiagnosticsComment on above:Performed By: #### 899, 30867, 482, %68679, 7600, 496, 20390, 5616, %38907, 866, 6399 #### [facility] [address], [address] [place] [address] Computer Network Engineer: Jeremías Martinez MDAST [Catalytic activity/Vol]161 U/WGfsu74-11 [facility] DiagnosticsComment on above:Performed By: #### 899, 37820, 482, %14040, 7600, 496, 67979, 5616, %05193, 866, 6399 #### [facility] [address], [address] [place] [address] Computer Network Engineer: Jeremías Martinez MDBilirubin [Mass/Vol]1.2 mg/dLNormal0.2-1.2 Quest DiagnosticsComment on above:Performed By: #### 899, 44492, 482, %23332, 7600, 496, 44220, 5616, %51202, 866, 6399 #### [facility] [place] [address] Computer Network Engineer: Jeremías Martinez MDBUN/CREATININE RATIOSEE NOTE:Normal6-22Quest DiagnosticsComment on above:Result Comment: Not Reported: BUN and Creatinine are within reference range.Performed By: #### 899, 41673, 482, %06291, 7600, 496, 91240, 5616, %64833, 866, 6399 #### [facility] [address], [address] [place] [address] Computer Network Engineer: Jeremías Martinez MDCalcium [Mass/Vol]10.2 mg/dLNormal8.6-10.3 [facility] DiagnosticsComment on above:Performed By: #### 899, 99600, 482, %48732, 7600, 496, 68215, 5616, %43655, 866, 6399 #### [facility] [place] [address] Computer Network Engineer: Jeremías Martinez MDChloride [Moles/Vol]103 mmol/EFsbgsj56-295 Quest DiagnosticsComment on above:Performed By: #### 899, 71766, 482, %53072, 7600, 496, 42156, 5616, %50257, 866, 6399 #### [facility] [place] [address] Computer Network Engineer: Jeremías Martinez MDCO2 [Moles/Vol]21 mmol/VMvuvza65-75Azaho DiagnosticsComment on above:Performed By: #### 899, 07389, 482, %45199, 7600, 496, 17778, 5616, %92387, 866, 6399 #### [facility] [place] [address] Computer Network Engineer: Jeremías MCNAIRreatinine [Mass/Vol]0.89 mg/dLNormal0.60-1.26 Quest DiagnosticsComment on above:Performed By: #### 899, 14449, 482, %71350, 7600, 496, 37528, 5616, %11762, 866, 6399 #### [facility] [place] [address] Computer Network Engineer: Jeremías Martinez MDGFR/1.73 sq M.predicted among non-blacks MDRD (S/P/Bld) [Vol rate/Area]117 mL/min/{1.73_m2}Normal> OR = 60[facility] Comment on above:Performed By: #### 899, 71750, 482, %23034, 7600, 496, 67010, 5616, %44963, 866, 6399 #### [facility] [address], [address] [place] [address] Computer Network Engineer: Jeremías Martinez MDGlobulin (S) [Mass/Vol]2.8 g/dLNormal1.9-3.7 [facility] DiagnosticsComment on above:Performed By: #### 899, 86942, 482, %82432, 7600, 496, 31615, 5616, %47122, 866, 6399 #### [facility] [address], [address] [place] [address] Computer Network Engineer: Jeremías Martinez MDGlucose [Mass/Vol]108 mg/nNXzpa93-68Wwydv DiagnosticsComment on above:Result Comment: Fasting reference interval For someone without known diabetes, a glucose value between 100 and 125 mg/dL is consistent with prediabetes and should be confirmed with a follow-up test.Performed By: #### 899, 21019, 482, %90809, 7600, 496, 93748, 5616, %67978, 866, 6399 #### [facility] [place] [address] Computer Network Engineer: Jeremías Martinez MDPotassium [Moles/Vol]4.3 mmol/LNormal3.5-5.3 [facility] DiagnosticsComment on above:Performed By: #### 899, 19663, 482, %79568, 7600, 496, 79868, 5616, %52341, 866, 6399 #### [facility] [address], [address] [place], [place] [address] Computer Network Engineer: Jeremías Martinez MDProtein [Mass/Vol]8.0 g/dLNormal6.1-8.1Quest DiagnosticsComment on above:Performed By: #### 899, 66815, 482, %66475, 7600, 496, 80002, 5616, %70788, 866, 6399 #### [facility] [address], [address] [place] [address] Computer Network Engineer: Jeremías Martinez MDSodium [Moles/Vol]136 mmol/ELyqqya152-317Gfdxf DiagnosticsComment on above:Performed By: #### 899, 60844, 482, %82239, 7600, 496, 83653, 5616, %55629, 866, 6399 #### [facility] [address], [address] [place] [address] Computer Network Engineer: Jeremías Martinez MDUrea nitrogen [Mass/Vol]10 mg/dLNormal7-25 Quest DiagnosticsComment on above:Performed By: #### 899, 48895, 482, %00552, 7600, 496, 23995, 5616, %42027, 866, 6399 #### [facility] [address], [address] [place] [address] Computer Network Engineer: Jeremías Martinez MDCORTISOL, TOTALon 98-71-9017URRIYYOC, TOTAL 12.9 mcg/dLNormalQuest DiagnosticsComment on above:Result Comment: Reference Range: For 8 a.m.(7-9 a.m.) Specimen: 4.0-22.0 Reference Range: For 4 p.m.(3-5 p.m.) Specimen: 3.0-17.0 * Please interpret above results accordingly *Performed By: #### 899, 44120, 482, %60264, 7600, 496, 79203, 5616, %31052, 866, 6399 #### [facility] [address], [address] [place] [address] Computer Network Engineer: Jeremías Martinez MDGGTon 63-12-5668Witwc glutamyl transferase [Catalytic activity/Vol]199 U/LHigh3-90Quest DiagnosticsComment on above: Performed By: #### 899, 66265, 482, %97015, 7600, 496, 70174, 5616, %80919, 866, 6399 #### [facility] [address], [address] [place] [address] Computer Network Engineer: Jeremías Martinez MDHCV RNA, QUANTITATIVE REAL TIME PCRon 01-87-7114IKYTUUPSxtyftCeqmf DiagnosticsComment on above:Result Comment: This test was performed using Real-Time Polymerase Chain Reaction. Reportable Range: 15 IU/mL to 100,000,000 IU/mL (1.18 Log IU/mL to 8.00 Log IU/mL). The analytical performance characteristics of this assay have been determined by [facility]. The modifications have not been cleared or approved by the FDA. This assay has been validated pursuant to the CLIA regulations and is used for clinical purposes. For more information on this test, go to: http://education.RFMarq/faq/KIK85v5 (This link is being provided for informational/ educational purposes only.) This assay is intended for use as an aid in the diagnosis of HCV infection and the management of HCV infected patients undergoing anti-viral therapy.Performed By: #### 899, 89984, 482, %30147, 7600, 496, 53201, 5616, %34358, 866, 6399 #### [facility] [address], [address] [place] [address] Computer Network Engineer: Jeremías Martinez MDHCV RNA, QUANTITATIVE REAL TIME PCRNot detectedNormalNOT DETECTEDQuest DiagnosticsComment on above:Performed By: #### 899, 22419, 482, %10211, 7600, 496, 17228, 5616, %51764, 866, 6399 #### [facility] [address], [address] [place] [address] Computer Network Engineer: Jeremías Martinez MDResult Comment: HCV RNA is [...] diagnosis of diabetes in children. According to [place] Diabetes Association (ADA) guidelines, hemoglobin A1c <7.0% represents optimal control in non- diabetic patients. Different metrics may apply to specific patient populations. Standards of Medical Care in Diabetes(ADA). This test was performed on the Susannah antione c503 platform. Effective 11/17/23, a change in test platforms from the [employer] to the Susannah antione c503 may have shifted HbA1c results compared to historical results. Based on laboratory validation testing conducted at [facility], the Susannah platform relative to the [place] [...] platforms is not recommended.Performed By: #### 899, 79998, 482, %33228, 7600, 496, 12384, 5616, %32394, 866, 6399 #### [facility] [address], [address] [place] [address] Computer Network Engineer: Jeremías BARRIGA PANEL, ACUTE W/REFLEX TO CONFIRMATIONon 27-41-6989SFAMPDLMB A AVKFcm-PlizihzyJorycgBLZ-JYTMALSPUeqzn DiagnosticsComment on above:Result Comment: For additional information, please refer to http://education.[employer] Signal Technologies.Liquiverse/faq/VHQ676 (This link is being provided for informational/ educational purposes only.)Performed By: #### 899, 82183, 482, %50388, 7600, 496, 90360, 5616, %09632, 866, 6399 #### [facility] [address], [address] [place] [address] Computer Network Engineer: Jeremías Merati MDHEPATITIS B CORE ANTIBODY (IGM)Non-Reactive NormalNON-REACTIVEQuest DiagnosticsComment on above:Result Comment: For additional information, please refer to http://Adwanted.[employer] Signal [employer].Liquiverse/faq/RYT576 (This link is being provided for informational/ educational purposes only.)Performed By: #### 899, 65408, 482, %85518, 7600, 496, 08712, 5616, %85290, 866, 6399 #### [facility] [address], [address] [place] [address] Computer Network Engineer: Jeremías BARRIGA B SURFACE ANTIGENReactiveAbnormal NON-REACTIVEQuest DiagnosticsComment on above:Result Comment: For additional information, please refer to http://Adwanted.[employer].Liquiverse/faq/CCJ453 (This link is being provided for informational/ educational purposes only.)Performed By: #### 899, 35608, 482, %13170, 7600, 496, 43910, 5616, %34787, 866, 6399 #### [facility] [address], [address] [place] [address] Computer Network Engineer: Jeremías BARRIGA C ANTIBODYReactiveAbnormal NON-REACTIVEQuest DiagnosticsComment on above:Result Comment: Based on this result, the sample will be tested for HCV RNA by a Nucleic Acid Amplification Test (NAAT) to determine if the patient has a current active infection.Performed By: #### 899, 16572, 482, %93426, 7600, 496, 56233, 5616, %33849, 866, 6399 #### [facility] [address], [address] [place] [address] Computer Network Engineer: Jeremías HEATON, TIBC AND FERRITIN PANELon 04-09-2024% PSSDXAEXSP04 % (calc)Vkho76-30Qierb DiagnosticsComment on above:Order Comment: NON-FASTING NON-FASTING NON-FASTING NON-FASTING NON-FASTING NON-FASTINGPerformed By: #### 899, 24589, 482, %14145, 7600, 496, 01823, 5616, %62881, 866, 6399 #### [facility] [address], [address] [place], [place] [address] Computer Network Engineer: Jeremías Martinez MDFerritin [Mass/Vol]302 ng/tKKwhhnj80-443Qxcnf DiagnosticsComment on above:Order Comment: NON-FASTING NON-FASTING NON-FASTING NON-FASTING NON-FASTING NON-FASTINGPerformed By: #### 899, 12130, 482, %62346, 7600, 496, 17559, 5616, %42283, 866, 6399 #### [facility] [address], [address] [place] [address] Computer Network Engineer: Jeremías HEATON BINDING SPCBDIVO664 mcg/dL (calc)Normal 250-425Quest DiagnosticsComment on above:Order Comment: NON-FASTING NON-FASTING NON-FASTING NON-FASTING NON-FASTING NON-FASTINGPerformed By: #### 899, 90010, 482, %15726, 7600, 496, 84579, 5616, %55840, 866, 6399 #### [facility] [place] [address] Computer Network Engineer: Jeremías HEATON, ZUYXG730 mcg/pRLckp69-651Kusgt DiagnosticsComment on above:Order Comment: NON-FASTING NON-FASTING NON-FASTING NON-FASTING NON-FASTING NON-FASTINGPerformed By: #### 899, 78123, 482, %33963, 7600, 496, 07565, 5616, %61403, 866, 6399 #### [facility] [address], [address] [place], [place] [address] Computer Network Engineer: Jeremías Martinez MDLIPID PANEL, STANDARDon 61-09-1216Mmhypuhgvsl [Mass/Vol]226 mg/dLHigh<200Quest DiagnosticsComment on above:Performed By: #### 899, 67712, 482, %08610, 7600, 496, 30829, 5616, %84930, 866, 6399 #### [facility] [address], [address] [place] [address] Computer Network Engineer: Jeremías Martinez MDCholesterol in HDL [Mass/Vol]56 mg/dLNormal> OR = 40Quest DiagnosticsComment on above:Performed By: #### 899, 72565, 482, %89208, 7600, 496, 65044, 5616, %00141, 866, 6399 #### [facility] [address], [address] [place] [address] Computer Network Engineer: Jeremías MCNAIRholesterol in LDL [Mass/Vol]134 mg/dLHigh Quest [...] LDL-C. Markell FRANK et al. TIFFANI. 2013;310(19): 2399-0042 (http://education.[employer]otics.Liquiverse/faq/AVU960)Performed By: #### 899, 09624, 482, %87222, 7600, 496, 42699, 5616, %90049, 866, 6399 #### [facility] [address], [address] [place] [address] Computer Network Engineer: Jeremías Denneystadeola.total/Cholesterol in HDL [Mass ratio]4.0 {ratio}Normal<5.0Quest DiagnosticsComment on above:Performed By: #### 899, 80130, 482, %79150, 7600, 496, 27153, 5616, %05228, 866, 6399 #### [facility] [address], [address] [place], [place] [address] Computer Network Engineer: Jeremías AIKEN HDL BHMYFQPYODL632 mg/dL (calc)High<130 Quest DiagnosticsComment on above:Result Comment: For patients with diabetes plus 1 major ASCVD risk factor, treating to a non-HDL-C goal of <100 mg/dL (LDL-C of <70 mg/dL) is considered a therapeutic option.Performed By: #### 899, 03228, 482, %38534, 7600, 496, 39316, 5616, %40650, 866, 6399 #### [facility] [address], [address] [place] [address] Computer Network Engineer: Jeremías Martinez MDTriglyceride [Mass/Vol]218 mg/dLHigh<150Quest DiagnosticsComment on above:Result Comment: If a non-fasting specimen was collected, consider repeat triglyceride testing on a fasting specimen if clinically indicated. Gopal et al. J. of Clin. Lipidol. 2015;9:129-169.Performed By: #### 899, 68485, 482, %22117, 7600, 496, 28277, 5616, %64483, 866, 6399 #### [facility] [address], [address] [place] [address] Computer Network Engineer: Jeremías BARBA[address] [place] [address] 05-15-8259Ljfl T4 [Mass/Vol]1.2 ng/dLNormal0.8-1.8Quest DiagnosticsComment on above:Performed By: #### 899, 78302, 482, %72669, 7600, 496, 14428, 5616, %18906, 866, 6399 #### [facility] [address], [address] [place] [address] Computer Network Engineer: Jeremías CASTANONarsh 56-91-9112FHH Qn2.17 m[IU]/LNormal 0.40-4.50Quest DiagnosticsComment on above:Performed By: #### 899, 99550, 482, %36668, 7600, 496, 93049, 5616, %54480, 866, 6399 #### [facility] [address], [address] [place] [address] Computer Network Engineer: Jeremías Martinez MDCNOVon 90-86-9869DHZDClaocgQfqagcxrf [facility]ty HospitalVIBRATION CONTROLLED TRANSIENT ELASTOGRAPHY (POC)on 99-56-9916Sismiujcz ClinicCNPNon 21-01-9351HWOJUdljegCjltzukyh Clinic ClevelandC-REACTIVE PROTEIN (CRP)on 59-11-1870RSL [Mass/Vol]<0.9 mg/dLHenry County Hospital W Auto Differential panel (Bld)on 72-70-8696Ezhxrshth (Bld) [#/Vol]0.12 10*3/uLHigh <0.11Avon HospitalComment on above:Order Comment: Specimen Type: BLOOD SPECIMEN Ordering Facility: [facility] Address: [address] [place], [place] [address]Performed By: #### 27913-5 #### [facility] [place] [id number] [address] [place] [address] [place] AMERICABasophils/100 WBC (Bld)1.5 %NormalAv HospitalComment on above:Order Comment: Specimen Type: BLOOD SPECIMEN Ordering Facility: [facility] Address: [address] [place], [place] [address]Performed By: #### 64702-1 #### [facility] [place] [id number] [address] [place] [address] [place] AMERICADifferential cell count method Nom (Bld) AutoNormalAvon HospitalComment on above:Order Comment: Specimen Type: BLOOD SPECIMEN Ordering Facility: [facility] Address: [address] [place], [place] [address]Performed By: #### 54406-5 #### [facility] IA [id number] [address] [place] [address] [place] AMERICAEosinophils (Bld) [#/Vol]0.74 10*3/uLHigh <0.46Avon HospitalComment on above:Order Comment: Specimen Type: BLOOD SPECIMEN Ordering Facility: [facility] Address: [address] [place], [place] [address]Performed By: #### 54950-3 #### [facility] CLIA [id number] [address] [place] [address] [place] AMERICAEosinophils/100 WBC (Bld)9.0 %NormalAv HospitalComment on above:Order Comment: Specimen Type: BLOOD SPECIMEN Ordering Facility: [facility] Address: [address] [place], [place] [address]Performed By: #### 16459-1 #### [facility] [place] [id number] [address] [place] [address] [place] AMERICAErythrocyte distribution width (RBC) [Ratio]14.1 %Btlkus76.5-15.0Av HospitalComment on above:Order Comment: Specimen Type: BLOOD SPECIMEN Ordering Facility: [facility] Address: [address] [place], [place] [address]Performed By: #### 25944-8 #### [facility] [place] [id number] [place] [address] [place] AMERICAHematocrit (Bld) [Volume fraction]53.2 % High39.0-51.0Av HospitalComment on above:Order Comment: Specimen Type: BLOOD SPECIMEN Ordering Facility: [facility] Address: [address] [place], [place] [address]Performed By: #### 44405-4 #### [facility] [place] [id number] [address] [place] [address] [place] AMERICAHemoglobin (Bld) [Mass/Vol]17.8 g/dLHigh 13.0-17.0Av HospitalComment on above:Order Comment: Specimen Type: BLOOD SPECIMEN Ordering Facility: [facility] Address: [address] [place], [place] [address]Performed By: #### 07986-0 #### [facility] [place] [id number] [place] [address] [place] AMERICAImmature granulocytes (Bld) [#/Vol]0.06 10*3/uLNormal<0.10Avon HospitalComment on above:Order Comment: Specimen Type: BLOOD SPECIMEN Ordering Facility: [facility] Address: [address] [place], [place] [address]Performed By: #### 47018-0 #### [facility] IA [id number] [address] [place] [address] [place] AMERICAImmature granulocytes/100 WBC (Bld)0.7 % NormalAv HospitalComment on above:Order Comment: Specimen Type: BLOOD SPECIMEN Ordering Facility: [facility] Address: [address] [place], [place] [address]Performed By: #### 74190-2 #### [facility] [place] [id number] [address] [place] [address] [place] AMERICALymphocytes (Bld) [#/Vol]1.48 10*3/uL Normal1.00-4.00Av HospitalComment on above:Order Comment: Specimen Type: BLOOD SPECIMEN Ordering Facility: [facility] Address: [address] [place], [place] [address]Performed By: #### 04560-7 #### [facility] [place] [id number] [address] [place] [address] [place] AMERICALymphocytes/100 WBC (Bld)18.1 %NormalAv HospitalComment on above:Order Comment: Specimen Type: BLOOD SPECIMEN Ordering Facility: [facility] Address: [address] [place], [place] [address]Performed By: #### 77562-3 #### [facility] [place] [id number] [address] [place] [address] [facility] (RBC) [Entitic mass]26.5 pgNormal 26.0-34.0Av HospitalComment on above:Order Comment: Specimen Type: BLOOD SPECIMEN Ordering Facility: [facility] Address: [address] [place], [place] [address]Performed By: #### 77781-6 #### [facility] [place] [id number] [address] [place] [address] [facility] (RBC) [Mass/Vol]33.5 g/dLNormal 30.5-36.0Av HospitalComment on above:Order Comment: Specimen Type: BLOOD SPECIMEN Ordering Facility: [facility] Address: [address] [place], [place] [address]Performed By: #### 24446-3 #### [facility] IA [id number] [address] [place] [address] [place] AMERICAMCV (RBC) [Entitic vol]79.2 fLLow 80.0-100.0Av HospitalComment on above:Order Comment: Specimen Type: BLOOD SPECIMEN Ordering Facility: [facility] Address: [address] [place], [place] [address]Performed By: #### 62405-9 #### [facility] [place] [id number] [address] [place] [address] [place] AMERICAMonocytes (Bld) [#/Vol]0.60 10*3/uLNormal <0.87Av HospitalComment on above:Order Comment: Specimen Type: BLOOD SPECIMEN Ordering Facility: [facility] Address: [address] [place], [place] [address]Performed By: #### 11641-1 #### [facility] IA [id number] [address] [place] [address] [place] AMERICAMonocytes/100 WBC (Bld)7.3 %NormalAv HospitalComment on above:Order Comment: Specimen Type: BLOOD SPECIMEN Ordering Facility: [facility] Address: [address] [place], [place] [address]Performed By: #### 24766-3 #### [facility] [place] [id number] [address] [place] [address] [place] AMERICANeutrophils (Bld) [#/Vol]5.19 10*3/uL Normal1.45-7.50Av HospitalComment on above:Order Comment: Specimen Type: BLOOD SPECIMEN Ordering Facility: [facility] Address: [address] [place], [place] [address]Performed By: #### 39497-8 #### [facility] IA [id number] [address] [place] [address] [place] AMERICANeutrophils/100 WBC (Bld)63.4 %NormalAvon HospitalComment on above:Order Comment: Specimen Type: BLOOD SPECIMEN Ordering Facility: [facility] Address: [address] [place], [place] [address]Performed By: #### 46350-9 #### [facility] [place] [id number] [address] [place] [address] [place] AMERICANucleated RBC (Bld) [#/Vol]10*3/uLNormal <0.01Avon HospitalComment on above:Order Comment: Specimen Type: BLOOD SPECIMEN Ordering Facility: [facility] Address: [address] [place], [place] [address]Performed By: #### 00649-1 #### [facility] IA [id number] [address] [place] [address] [place] AMERICANucleated RBC/100 WBC (Bld) [Ratio]0.0 /100 WBCNormalAvon HospitalComment on above:Order Comment: Specimen Type: BLOOD SPECIMEN Ordering Facility: [facility] Address: [address] [place], [place] [address]Performed By: #### 21113-7 #### [facility] [place] [id number] [address] [place] [address] [place] AMERICAPlatelet mean volume (Bld) [Entitic vol] 12.2 fLNormal9.0-12.7Avon HospitalComment on above:Order Comment: Specimen Type: BLOOD SPECIMEN Ordering Facility: [facility] Address: [address] [place], [place] [address]Performed By: #### 71594-7 #### [facility] [place] [id number] [address] [place] [address] [place] AMERICAPlatelets (Bld) [#/Vol]218 10*3/uLNormal 150-400Avon HospitalComment on above:Order Comment: Specimen Type: BLOOD SPECIMEN Ordering Facility: [facility] Address: [address] [place], [place] [address]Performed By: #### 62588-7 #### [facility] [place] [id number] [address] [place] [address] [place] AMERICARBC (Bld) [#/Vol]6.72 10*6/uLHigh 4.20-6.00Wolf Point HospitalComment on above:Order Comment: Specimen Type: BLOOD SPECIMEN Ordering Facility: [facility] Address: [address] [place], [place] [address]Performed By: #### 17423-3 #### [facility] [place] [id number] [address] [place] [address] [place] AMERICAWBC (Bld) [#/Vol]8.19 10*3/uLNormal 3.70-11.00Av HospitalComment on above:Order Comment: Specimen Type: BLOOD SPECIMEN Ordering Facility: [facility] Address: [address] [place], [place] [address]Performed By: #### 53746-6 #### [facility] [place] [id number] [address] [place] [address] [place] AMERICABasophils (Bld) [#/Vol]0.12 10*3/uLHigh <0.11 k/uLGenesis HospitalBasophils/100 WBC (Bld)1.5 %[facility] Differential cell count method Nom (Bld)AutoCleveland ClinicEosinophils (Bld) [#/Vol]0.74 10*3/uLHigh<0.46 k/uLCleLima Memorial HospitalEosinophils/100 WBC (Bld)9.0 % Genesis HospitalErythrocyte distribution width (RBC) [Ratio]14.1 %11.5 - 15.0 % [facility] HospitalHematocrit (Bld) [Volume fraction]53.2 %High39.0 - 51.0 % [facility] HospitalHemoglobin (Bld) [Mass/Vol]17.8 g/qTSumh65.0 - 17.0 g/dL Genesis HospitalImmature granulocytes (Bld) [#/Vol]0.06 10*3/uL<0.10 k/uL Genesis HospitalImmature granulocytes/100 WBC (Bld)0.7 %[facility] Lymphocytes (Bld) [#/Vol]1.48 10*3/uL1.00 - 4.00 k/uLGenesis Hospital Lymphocytes/100 WBC (Bld)18.1 %[facility] HospitalH (RBC) [Entitic mass]26.5 pg 26.0 - 34.0 pgClevelElyria Memorial HospitalMCHC (RBC) [Mass/Vol]33.5 g/dL30.5 - 36.0 g/dL [facility] HospitalV (RBC) [Entitic vol]79.2 fLLow80.0 - 100.0 fLClevelElyria Memorial Hospital Monocytes (Bld) [#/Vol]0.60 10*3/uL<0.87 k/uLGenesis HospitalMonocytes/100 WBC (Bld)7.3 %Genesis HospitalNeutrophils (Bld) [#/Vol]5.19 10*3/uL1.45 - 7.50 k/uL Genesis HospitalNeutrophils/100 WBC (Bld)63.4 %Genesis HospitalNucleated RBC (Bld) [#/Vol]<0.01 k/uLGenesis HospitalNucleated RBC/100 WBC (Bld) [Ratio]0.0 /100 WBCGenesis HospitalPlatelet mean volume (Bld) [Entitic vol]12.2 fL9.0 - 12.7 fLClevelnovant health kernersville medical center ClinicPlatelets (Bld) [#/Vol]218 10*3/uL150 - 400 k/[facility] ToledoRBC (Bld) [#/Vol]6.72 10*6/uLHigh4.20 - 6.00 m/[facility] ToledoWBC (Bld) [#/Vol]8.19 10*3/uL3.70 - 11.00 k/uLGenesis HospitalCNOVon 12-33-6141UGAC NormalGenesis Hospital ClevelandCRP SerPl-mCncon 46-53-5785HLV [Mass/Vol]mg/L Normal<0.9Avon HospitalComment on above:Order Comment: Specimen Type: BLOOD SPECIMEN Ordering Facility: [facility] Address: [address] [place] [address]Ggpzcgbvj By: #### 1988-5, 36614-7 #### [facility] CLIA [id number] [address] [facility] [place] [address] [place] AMERICAComprehensive metabolic 2000 panelon 91-21-7916Loaxvrb [Mass/Vol]5.0 g/dLHigh3.9-4.9Avirtua marlton HospitalComment on above: Order Comment: Specimen Type: BLOOD SPECIMEN Ordering Facility: [facility] Address: [address] [place], [place] [address]Cbmbeymuk By: #### 1988-03, #### [facility] CLIA [id number] [address] [place] [address] [place] AMERICAALP [Catalytic activity/Vol]124 U/LHigh 38-113Wolf Point HospitalComment on above:Order Comment: Specimen Type: BLOOD SPECIMEN Ordering Facility: [facility] Address: [address] [place], [place] [address]Performed By: #### 1988-03, #### [facility] IA [id number] [address] [place] [address] [place] AMERICAALT [Catalytic activity/Vol]133 U/LHigh 10-54Av HospitalComment on above:Order Comment: Specimen Type: BLOOD SPECIMEN Ordering Facility: [facility] Address: [address] [place], [place] [address]Performed By: #### 1988-03, #### [facility] IA [id number] [address] [place] [address] [place] AMERICAAnion gap [Moles/Vol]13 mmol/LNormal9-18 Wolf Point HospitalComment on above:Order Comment: Specimen Type: BLOOD SPECIMEN Ordering Facility: [facility] Address: [address] [place] [address]Gturcsvcq By: #### 1988-03, #### [facility] CLIA [id number] [address] [place] [address] [place] AMERICAAST [Catalytic activity/Vol]78 U/LHigh 14-40Avon HospitalComment on above:Order Comment: Specimen Type: BLOOD SPECIMEN Ordering Facility: [facility] Address: [address] [place], [place] [address]Performed By: #### #### [facility] CLIA [id number] [address] [place] [address] [place] AMERICABilirubin [Mass/Vol]0.5 mg/dLNormal 0.2-1.3Avon HospitalComment on above:Order Comment: Specimen Type: BLOOD SPECIMEN Ordering Facility: [facility] Address: [address] [place], [place] [address]Performed By: #### #### [facility] IA [id number] [address] [place] [address] [place] AMERICACalcium [Mass/Vol]9.6 mg/dLNormal8.5-10.2 Gavi HospitalComment on above:Order Comment: Specimen Type: BLOOD SPECIMEN Ordering Facility: [facility] Address: [address] [place], [place] [address]Performed By: #### #### [facility] IA [id number] [address] [place] [address] [place] AMERICAChloride [Moles/Vol]102 mmol/LNormal 97-105Av HospitalComment on above:Order Comment: Specimen Type: BLOOD SPECIMEN Ordering Facility: [facility] Address: [address] [place], [place] [address]Performed By: #### #### [facility] IA [id number] [address] [place] [address] [place] AMERICACO2 [Moles/Vol]22 mmol/IKsocjd15-40Zbyz HospitalComment on above:Order Comment: Specimen Type: BLOOD SPECIMEN Ordering Facility: [facility] Address: [address] [place], [place] [address]Performed By: #### 1988-03, #### [facility] [place] [id number] [address] [place] [address] [place] AMERICACreatinine [Mass/Vol]1.04 mg/dLNormal 0.73-1.22Av HospitalComment on above:Order Comment: Specimen Type: BLOOD SPECIMEN Ordering Facility: [facility] Address: [address] [place] [address]Adugyecrq By: #### 1988-03, 50054-5 #### [facility] CLIA [id number] [address] [place] [address] [place] OF AMERICACreatinine and Glomerular filtration rate.predicted panel (S/P/Bld)98 mL/min/1.73m???Normal>=60Av HospitalComment on above:Order Comment: Specimen Type: BLOOD SPECIMEN Ordering Facility: [facility] Address: [address] [place] [address]Uxxzvu Comment: Estimated Glomerular Filtration Rate (eGFR) is [...] reflect actual GFR.Performed By: #### 1988-03, #### [facility] CLIA [id number] [address] [place] [address] [place] OF AMERICAGlucose [Mass/Vol]106 mg/fOSdly59-32Racj HospitalComment on above:Order Comment: Specimen Type: BLOOD SPECIMEN Ordering Facility: [facility] Address: [address] [place] [address] 55[address]Cvlfxd Comment: The [place] Diabetes Association (ADA) provides guidance for cutoff [...] Standards of Medical Care in Diabetes 2016, [place] Diabetes Association. Diabetes Care. 2016.39(Suppl 1).Performed By: #### 1988-03, #### [facility] [place] [id number] [address] [place] [address] [place] AMERICAPotassium [Moles/Vol]4.7 mmol/LNormal 3.7-5.1Avirtua marlton HospitalComment on above:Order Comment: Specimen Type: BLOOD SPECIMEN Ordering Facility: [facility] Address: [address] [place], [place] [address]Performed By: #### 1988-03, #### [facility] [place] [id number] [address] [place] [address] [place] AMERICAProtein [Mass/Vol]7.9 g/dLNormal6.3-8.0 [facility] HospitalComment on above:Order Comment: Specimen Type: BLOOD SPECIMEN Ordering Facility: [facility] Address: [address] [place], [place] [address]Performed By: #### #### [facility] [place] [id number] [address] [place] [address] [place] AMERICASodium [Moles/Vol]137 mmol/XTosezk839-081 [facility] HospitalComment on above:Order Comment: Specimen Type: BLOOD SPECIMEN Ordering Facility: [facility] Address: [address] [place], [place] [address]Performed By: #### #### [facility] IA [id number] [address] [place] [address] [place] AMERICAUrea nitrogen [Mass/Vol]11 mg/dLNormal 9-24[facility] Point HospitalComment on above:Order Comment: Specimen Type: BLOOD SPECIMEN Ordering Facility: [facility] Address: [address] [place], [place] [address]Performed By: #### 1988-03, #### [facility] [place] [id number] [address] [place] [address] [place] AMERICAAlbumin [Mass/Vol]5.0 g/dLHigh3.9 - 4.9 g/dLHolzer Hospitalveland ClinicALP [Catalytic activity/Vol]124 U/LHigh38 - 113 U/LCleveland ClinicALT [Catalytic activity/Vol]133 U/LHigh10 - 54 U/LCleveland ClinicAnion gap [Moles/Vol]13 mmol/L9 - 18 mmol/LCleveland ClinicAST [Catalytic activity/Vol]78 U/LHigh14 - 40 U/LCleveland ClinicBilirubin [Mass/Vol]0.5 mg/dL 0.2 - 1.3 mg/dLCleohiohealth berger hospital ClinicCalcium [Mass/Vol]9.6 mg/dL8.5 - 10.2 mg/dL [facility] ClinicChloride [Moles/Vol]102 mmol/L97 - 105 mmol/LCleveland ClinicCO2 [Moles/Vol]22 mmol/L22 - 30 mmol/LCleveland ClinicCreatinine [Mass/Vol]1.04 mg/dL0.73 - 1.22 mg/dLGenesis HospitalEstimated Glomerular Filtration Rate98 mL/min/1.73m>=60 mL/min/1.73mCleveland ClinicGlucose [Mass/Vol]106 mg/pNIwtu62 - 99 mg/dLGenesis HospitalPotassium [Moles/Vol]4.7 mmol/L3.7 - 5.1 mmol/L [facility] ClinicProtein [Mass/Vol]7.9 g/dL6.3 - 8.0 g/dLSouthlake ClinicSodium [Moles/Vol]137 mmol/L136 - 144 mmol/LCleveland [facility] Faribault Medical CenterUrea nitrogen [Mass/Vol]11 mg/dL9 - 24 mg/dLOhioHealth Hardin Memorial HospitalR Westergren method (Bld) [Velocity]on 21-35-6609EVU (Bld) [Velocity]2 mm/h0 - 15 mm/hrOhioHealth Hardin Memorial HospitalR (Bld) [Velocity]2 mm/hNormal0-15Avon HospitalComment on above:Order Comment: Specimen Type: BLOOD SPECIMEN Ordering Facility: [facility] Address: [address] [place], [place] [address]Performed By: #### 4537-7 #### [facility] CLIA [id number] [address] [facility] [place] [address] [place] OF AMERICAHAV IgM Ser Qlon 09-12-2023 HAV IgM Ql (S)NegativeNormalNegativeAvon HospitalComment on above:Order Comment: Specimen Type: BLOOD SPECIMEN Ordering Facility: [facility] Address: [address] [place], [place] [address]Result Comment: No evidence of recent infection with Hepatitis A virus.Performed By: #### 1988-5, 32653-7 #### [facility] CLIA [id number] [address] [facility] [place] [address] [place] AMERICAHBV core IgM Ser Qlon 30-18-2419ZOI core IgM Ql (S)NegativeNormalNegativeAvon HospitalComment on above:Order Comment: Specimen Type: BLOOD SPECIMEN Ordering Facility: [facility] Address: [address] [place] [address] Comment: No evidence of recent infection with Hepatitis B virus. Should recent infection be suspected, repeat testing may be considered 3-4 weeks after this draw.Performed By: #### 39338-5, 81392-0, 5195-3, 29465-2 #### [facility] CLIA [id number] [address] [place] [address] [place] AMERICAHBV surface Ab Ql (S)on 98-63-0975UVG surface Ab Qn (S)<8.00NormalAvon HospitalComment on above:Order Comment: Specimen Type: BLOOD SPECIMEN Ordering Facility: [facility] Address: [address] [place], [place] [address]Result Comment: <8 mIU/mL: No serological evidence of immunity to Hepatitis B Virus. >/= 8 to <12 mIU/mL: No serological evidence of immunity to Hepatitis B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 company to find a nearby participating provider. Patient Education Materials: Burn Care, Adult A MESSAGE TO ALL PATIENTS REGARDING OPIOIDS PRESCRIPTION OPIOIDS: WHAT YOU NEED TO KNOW Prescription opioids can be used to help relieve liqgrclt-qg-mnpnct pain and are often prescribed following a [...] be struggling with addiction, tell your health laboratory animal caretaker and ask for guidance or call SAMA?S National Helpline at 6-185-221-HELP. v Source: [place] Department of Health and Human Services/Center for Disease Control & Prevention [facility] Medications Given: Medication Dose Route ibuprofen 600.00 mg Oral bacitracin topical 1.00 siva Topical Medication Information: New Medications Printed Prescriptions bacitracin topical (Bacitracin top 500 units/g Oint TUBE (15 gram)) 1 Application Topical 4 times aday. Refills: 0. Medications to Continue with No Changes Other Medications acetaminophen-hydrocodone ([place] 325 mg-5 mg oral tablet) 1 Tablets [...] to serve you. Thank you for choosing [facility] Patient Education Materials: Burn Care, Adult A [...] or a bad smell. Medicine ? Take lgxv-orh-waeutyn and prescription medicines only as told by [...] or a bad smell. Medicine ? Take hxrx-oim-jsmafxm and prescription medicines only as told by [...] or a bad smell. Medicine ? Take vfwf-uks-ruekkce and prescription medicines only as told by [...] 11/17/2006 Document Revised: 10/30/2018 Document Reviewed: 05/06/2017 AlterPoint Patient Education ? 2019 Lol[employer]ox. IMERRILL KYLE T , have received the following patient education materials/instructions and have verbalized understanding: Patient Education Materials: Burn Care, Adult Follow-up Instructions: With: Address: When: [facility]: [facility] [phone] In 3 days 02/23/2021 Patient Signature Date Clinician/Nurse Signature Date 02/20/2021 11:51:20NokirkSt. Francis HospitalPrescriptions/Work Noteson 25-78-5046Jfcllrnxurzui/Work Notes [id number]#1.00CD:127NoKettering Health PrebleWorkers Comp Formson 61-70-1538Aricuzr Comp Forms [id number]#1.00CD:127[facility] East HospitalAlcohol, Medicalon 13-83-6723Lexnrltux/dLInvalid Interpretation Code<10.0 mg/dLGMC LABInterpretation and review of laboratory resultsNormalInvalid Interpretation CodeSURGICAL HOSPITAL OF [facility] [place] LABCBC Auto Differentialon 89-63-8772Czwywthei0.07 K/mcL Invalid Interpretation Code0.00 - 0.30GMC LABBasophils/100 [...] LABLymphocytes2.29 K/mcLInvalid Interpretation Code0.90 - 4.00GMC LABLymphocytes/100 khgiprdjtn09.9 %Invalid Interpretation CodeSURGICAL HOSPITAL OF [facility] – [place] BRJZQL12.7 pgLow26 - 34 pgGMC LPSWZNS89.6 g/dLInvalid Interpretation Code31 - 37 g/dLGMC GLIJGG25.7 fLLow80 - 100 fLGMC LABMonocytes 0.54 K/mcLInvalid Interpretation Code0.30 - 0.90GMC LABMonocytes/100 leukocytes 7.3 %Invalid Interpretation CodeC LABNeutrophils4.28 K/mcLInvalid Interpretation Code1.70 - 7.00GMC LABNeutrophils/100 haqkiqwndw38.8 %Invalid Interpretation CodeGMC LABNucleated erythrocytes/100 erythrocytes0.0 %Invalid Interpretation CodeC LABPlatelet mean volume (PMV)10.9 fLInvalid Interpretation Code9 - 15.5 fLGMC FHDIscdazoog022 K/mcLInvalid Interpretation Spei853 - 400GM LABRDW-CA15.1 %High11.6 - 14.8 %[facility] LABWBC (Leukocytes)7.41 K/mcLInvalid Interpretation Code4.50 - 11.00GMC LABCBC w/ Diffon 11-21-2017 CreatinineThe following orders were created for panel order CBC w/ Diff. Procedure Abnormality Status --------- ------ CBC Auto Differential[[id number]] Abnormal Final result Please view results forthese tests on the individual orders.Invalid Interpretation CodeOhioHealth Work Phone: cMPon 61-87-1233Voegctv aminotransferase (ALT)19 U/L Invalid Interpretation Code0 - [...] mg/dLInvalid Interpretation Code 8.4 - 10.2 mg/dLGMC WSRPehikfhg82 mmol/LInvalid Interpretation Code98 - 108 mmol/LGMC LABCreatinine0.89 mg/dLInvalid Interpretation Code0.5 - 1.3 mg/dLGMC LABeGFR (non-black)118 mL/min/{1.73_m2}Invalid Interpretation Code>=60GM LAB eGFR (non-black)The eGFR should be used for monitoring renal function only and not for medication dosing.Invalid Interpretation CodeGMC TEBJjejbrc10 mg/dL Invalid Interpretation Code65 - 99 mg/dLGMC LABPotassium3.5 mmol/LInvalid Interpretation Code3.5 - 5.1 mmol/LGMC LABProtein7.5 g/dLInvalid Interpretation Code6 - 8 g/dLGMC TTAZdwoax770 mmol/LInvalid Interpretation Edoy138 - 145 mmol/L GMC LABUrea hzmvifhd61 mg/dLInvalid Interpretation Code8 - 25 mg/dLGMC LABGrey Topon 27-41-0012Fpxga TubeHold for add-ons.Invalid Interpretation CodeGMC LAB [place] Drawon 00-58-4404OgftuluuqxZir following orders were created for panel order [place] Draw. Procedure Abnormality Status --------- ------ Lavender Top[[id number]] Final result Mint Green Top[[id number]] Final result Gold Top[[id number]] Final result Light Blue Top[[id number]] Final result Rowe Top[[id number]] Final result Please view results for these tests on the individual orders.Invalid Interpretation CodeUniversity Hospitals Cleveland Medical Center Work Phone: XR Foot Right 3+ Views (Standard)on 14-90-1754JQ Foot Right 3+ Views (Standard)Interface, Rad In [employer] - 11/21/2017 7:58 AM EST EXAMINATION: 3 [...] IMPRESSION: No acute osseous abnormality. Workstation ID: [id number] Interpretation CodeANTHONY WEST VALLEY MEDICAL CENTERXR Foot Right 3+ Views (Standard)EXAMINATION: [...] lesion. No focal soft tissue abnormality.Invalid Interpretation DuePropsXR Foot Right 3+ Views (Standard)No acute osseous abnormality. Workstation ID: [id number] Interpretation Hithru [place] No Panel InformationGenesis Hospital Vital Signs Date TimeVital SignValuePerforming UgxuepziqZjwcvale54-50-9568 09:50-0400Body cmDamarcelina Ballard MD Work Phone: cCorey HospitalUaadta50-96-4835 09:50-0400Body mass index (BMI) [Ratio]34.02 kg/k0Dhxpzmarcelina Ballard MD Work Phone: TCorey HospitalWnhtfs47-92-9114 09:50-0400Body temperature 96.91 [degF]Adolfo Ballard MD Work Phone: cCorey HospitalLzrnpu57-40-7394 09:50-0400Body ramron770.2 kgAdolfo Ballard MD Work Phone: [place] [address]-19-2024 09:50-0400Diastolic blood msxpuckl74 mm[Hg]Adolfo Ballard MD Work Phone: [place] [address]-19-2024 09:50-0400Heart rate96 /min Adolfo Ballard MD Work Phone: [place] [address]-19-2024 09:50-0400Respiratory rate 12 /minDavicole Ballard MD Work Phone: [place] [address]-19-2024 09:50-0400Systolic blood mm[Hg]Adolfo Ballard MD Work Phone: [place] [address]-19-2024 07:53-0400Diastolic blood wosodfqh51 mm[Hg]Charleen Laham MD Work Phone: [facility]08-19-2024 07:53-0400Heart rate89 /min Charleen Silver MD Work Phone: [facility]08-19-2024 07:53-0400Respiratory rate 18 /minCharleen Silver MD Work Phone: [facility]08-19-2024 07:53-0400Systolic blood hsjquycc400 mm[Hg]Charleen Silver MD Work Phone: [facility]07-30-2024 11:43-0400Body qquoqs846.2 cmPacc 3 Work Phone: [facility]07-30-2024 11:43-0400Body mass index (BMI) [Ratio]36.14 kg/m2Pacc 3 Work Phone: [phone]07-30-2024 11:43-0400Body temperature 98.01 [degF]Pacc 3 Work Phone: [phone]07-30-2024 11:43-0400Body axgaiz989.4 kgPacc 3 Work Phone: [phone]07-30-2024 11:43-0400Diastolic blood jrarjnam00 mm[Hg]Pacc 3 Work Phone: [phone] HospitalComment on above:MAP: 2553-42-8917 11:43-0400Heart rate96 /minPacc 3 Work Phone: [phone]07-30-2024 11:43-0400Respiratory rate 17 /minPacc 3 Work Phone: [phone]07-30-2024 11:43-6928DvT8% (BldA) [Mass fraction]97 %Pacc 3 Work Phone: [phone]07-30-2024 11:43-0400Systolic blood nnjjqoop754 mm[Hg]Pacc 3 Work Phone: [phone] ClinicComment on above:MAP: 9780-67-5806 08:44-0400Body wbcglu034 cmRhimanshu Becker MD Work Phone: Mpromedica [facility] hospitaland Kqsumh11-13-7519 08:44-0400Body mass index (BMI) [Ratio]36.59 kg/c9MuwxbvmgJayleen Becker MD Work Phone: Xpromedica [facility] hospitaland Hebtly54-93-9388 08:44-0400Body temperature 98.4 [degF]Jayleen Becker MD Work Phone: Wpromed[facility] hospitaland Pvvfml35-37-5247 08:44-0400Body jfguuz363.28 kgJayleen Becker MD Work Phone: Npromed[facility] hospitaland Ieortv77-71-5245 08:44-0400Diastolic blood lapnrrpu19 mm[Hg]Jayleen Becker MD Work Phone: Ipromedica [facility] hospitaland Xardta46-32-2054 08:44-0400Heart rate89 /min Jayleen Becker MD Work Phone: Gpromedica [facility] hospitaland Btogxy27-44-0473 08:44-0400Systolic blood dtceinwk500 mm[Hg]Jayleen Becker MD Work Phone: Apromedica bay [facility] hospitaland Rsbkzl94-97-4748 14:24-0400Diastolic blood etifwobb273 mm[Hg][facility]06-21-2024 14:24-0400Heart rate70 /minCt [facility]06-21[facility]20[facility] 14:24-0400Respiratory rate16 /minCt [facility]06-21-2024 14:24-0779XeY7% (BldA) [Mass fraction]100 %[facility]06-21-2024 14:24-0400Systolic blood oeohuouu778 mm[Hg][facility]06-14-2024 11:20-0400Body tnflxe681.4 cmReyna Anton APRN.[employer] Work Phone: [facility]06-14-2024 11:20-0400Body mass index (BMI) [Ratio]36.85 kg/b4WbbqwjjrReyna Anton APRN.[employer] Work Phone: [facility]06-14-2024 11:20-0400Body temperature 97.81 [degF]Reyna Erich MACHINE ASSEMBLER.[employer] Work Phone: [phone]06-14-2024 11:20-0400Body zigmoy305.7 kgReyna Anton MACHINE ASSEMBLER.[employer] Work Phone: [facility]06-14-2024 11:20-0400Diastolic blood tburozft93 mm[Hg]Reyna Erich MACHINE ASSEMBLER.[employer] Work Phone: [facility]06-14-2024 11:20-0400Heart rate74 /min Reyna Erich MACHINE ASSEMBLER.[employer] Work Phone: [facility]06-14-2024 11:20-9660SdL0% (BldA) [Mass fraction]97 %Reyna Erich MACHINE ASSEMBLER.[employer] Work Phone: [phone]06-14-2024 11:20-0400Systolic blood kfiszbwp161 mm[Hg]Reyna Anton MACHINE ASSEMBLER.[employer] Work Phone: [facility]10-18-2023 09:35-0400Body ixanbh431.2 cmBrjason Erich MACHINE ASSEMBLER.[employer] Work Phone: [phone]10-18-2023 09:35-0400Body temperature 97.7 [degF]Reyna Erich MACHINE ASSEMBLER.[employer] Work Phone: [phone]10-18-2023 09:35-0400Body vhlibj240.04 kgBrjason Anton MACHINE ASSEMBLER.[employer] Work Phone: [facility]10-18-2023 09:35-0400Diastolic blood owciiwft54 mm[Hg]Reyna Anton MACHINE ASSEMBLER.[employer] Work Phone: [facility]10-18-2023 09:35-0400Heart rate79 /min Reyna Anton MACHINE ASSEMBLER.[employer] Work Phone: [facility]10-18-2023 09:35-2312ZyJ8% (BldA) [Mass fraction]96 %Reyna Erich MACHINE ASSEMBLER.[employer] Work Phone: [facility]10-18-2023 09:35-0400Systolic blood dbtegbpb568 mm[Hg]Reyna Anton MACHINE ASSEMBLER.[employer] Work Phone: [facility]10-13-2023 10:02-0400Body qaatdj490.13 kgHunter Matzke DO Work Phone: [facility]10-13-2023 10:02-0400Diastolic blood rbohzibh49 mm[Hg]Piter Matzke DO Work Phone: [facility]10-13-2023 10:02-0400Heart rate87 /min Piter Matzke DO Work Phone: [facility]10-13-2023 10:02-0400Systolic blood plspszwy616 mm[Hg]Piter Matzke DO Work Phone: [facility]12-12-2022 11:58-0500Body pepgdo867.96 cmMD Chetan Rojas ([facility]) Work Phone: [facility]12-12-2022 11:58-0500 Body yqpbvbolhmw46.4 [degF]MD Chetan Rojas ([facility]) Work Phone: [phone]12-12-2022 11:58-0500 Body bmbjwi419.05 kgMD Chetan Rojas ([facility]) Work Phone: [facility]12-12-2022 11:58-0500 Diastolic blood yidczdwu54 mm[Hg]MD Chetan Rojas ([facility]) Work Phone: [phone]12-12-2022 11:58-0500 Heart seot288 /minMD Chetan Rojas ([facility]) Work Phone: [phone]12-12-2022 11:58-0500 Respiratory rate14 /minMD Chetan Rojas ([facility]) Work Phone: [phone]12-12-2022 11:58-0500 SaO2% (BldA) [Mass fraction]96 %MD Chetan Rojas ([facility]) Work Phone: [facility]12-12-2022 11:58-0500 Systolic blood juznruov140 mm[Hg]MD Chetan Rojas ([facility]) Work Phone: [facility]02-10-2022 12:00-0500 Body qlgvhy041.69 cmThomas Olexa Other [employer] Other 02-10-2022 12:00-0500Body mass index (BMI) [Ratio] 26.16 kg/u3Belqor Olexa Other [employer] Other 02-10-2022 12:00-0500Body stxehf73.17 kgThomas Olexa Other [employer] Other 10-14-2021 12:15-0400Body rbacyr788.69 cmThomas Olexa Other [employer] Other 10-14-2021 12:15-0400Body mass index (BMI) [Ratio]25.9 kg/g6Bzuopv Olexa Other [employer] Other 10-14-2021 12:15-0400Body wmqgmu25.27 kgThomas Olexa Other [employer] Other 06-12-2018 14:41-0400BMI (Body Mass Index)24.78 kg/m2 Adolfo PuenteMptmrvsIkxoZtllnd48-88-7770 14:41-0400Body Yuzaijbxlhv11.3 [degF]Adolfo LidgaihWpakGoyfqn30-86-0233 14:41-0400BP Lwvueegnw63 mm[Hg]Adolfo Puente HgmiTjixyp28-94-7428 14:41-0400BP Zjlchiwl723 mm[Hg]Adolfo [facility] 2018 14:41-2729Upjndj608 cmDamarcelina XkdaefwUgghTykezf53-20-6495 14:41-0400 Pulse (Heart Rate)99 /minDavicole HcjfrpuXjikApiufi45-33-7592 14:41-0400Pulse Tqezvwdj24 %Adlofo AcfwanjAkbnZquznw45-71-4176 14:41-0400Respiratory Rate16 /min Adolfo UshmsvhGoouIaanut80-92-8604 14:41-7921Wfsiat21.54 kgDavicole [facility] ErieWtnjBuloul78-99-7394 08:23-0500BP Gfmfhrrcq18 mm[Hg]Paulo [facility]youbW[facility]andot [facility] Work Phone: [phone] 08:23-0500BP Pkzcixjs919 mm[Hg]Paulo Rodriguez [facility] Work Phone: [phone] 08:23-0500Pulse (Heart Rate)99 /minPaulo [facility] Work Phone: [phone] 08:23-0500Pulse Nirltiqd73 %Paulo Ayoubriel [facility] Work Phone: [phone] 154-408012-22-2017 08:23-0500Respiratory Rate16 /minPaulo [facility] Work Phone: [phone] 06:18-0500BMI (Body Mass Index)21.83 kg/m2 Paulo [facility] Work Phone: [phone] 06:18-0500Body Wvmxiugvpra72.5 [degF]Paulo [facility]youbW[facility]andot [facility] Hospital Work Phone: [phone] 06:18-3533Kyrndq918 cmPaul [facility] Work Phone: [phone] 06:18-4384Puhxfl72.11 kgParex Rodriguez [facility] Work Phone: Encounters Encounter DateEncounter TypeCare ProviderFacilityStart: 08-12-2024 End: 12-57-1273Rantmjhfd encounterDavid Krpata MD Work Phone: General SurgeryStart: 07-21-2024 End: 11-48-8365ewfigggrxeKrmb Laham MD Work Phone: Pain ManagementComment on above:Hello as you say we don't speak in the same language.Start: 07-19-2024 End: 56-11-7874rvozzkjrvsIFKDP KRPATAFacility:[facility]tart: 07-19-2024 End: 61-25-9223Seotxkt encounter Simon Silver MD Work Phone: pain ManagementComment on above:Benzodiazepine dependence (HCC) (Primary Dx); Anxiety; Opioid dependence with withdrawal (HCC); Generalized abdominal painIncisional hernia, without obstruction or gangrene (Primary Dx); Post-operative painStart: 07-19-2024 End: 66-80-1031qlzoexerixQFXC LAHAMFacility:[facility]: 07-15-2024 RefillAdolfo Ballard MD Work Phone: [facility] SurgeryStart: 11-21-5761Eymhpetsr encounter Adolfo Ballard MD Work Phone: [facility] SurgeryStart: 57-42-3130weszfdfrxnUbsusjd Larubina RNNURSE ON CALLComment on above:Blood In UrineEncounter for medical assessment (Primary Dx)Start: 68-70-4140Vjwgzcr encounter statusAntoni Kong MD Work Phone: [facility] Work Phone: Start: 29-64-4898Ngswfnrfzrsb consultation with patientAntoni Kong MD Work Phone: Virtual MedicineStart: 06-30-2024 End: 43-34-8231Tetnambptd and management of inpatientADOLFO BALLARD [facility]: 06-29-2024 End: 82-01-4904Rykmpynqw to [place] [address] Work Phone: Pre AnesthesiaStart: 06-29-2024 End: 59-13-3214ydbobjzschFZUTIRMY MARKOFacility:[facility] Hospitaltart: 06-29-2024 End: 58-14-5907Vhwxksubzs consultationState [facility] Work Phone: pre AnesthesiaComment on above:Pre-op evaluation (Primary Dx); Preoperative examination; Ventral hernia without obstruction or gangrene; Gastroesophageal reflux disease without esophagitis; Opioid dependence in remission (HCC); Obesity, Class II, BMI 35-39.9; S/P colectomy; Chronic hepatitis C without hepatic coma (HCC); Nicotine abuse; ETOH abuseStart: 53-11-7525Chccjpbpq for other preprocedural examinationMAX PAVBlanchard Valley Health SystemStart: 06-29-2024 End: 75-62-8825Otevuqytmdovv examination doneSummit [facility] Work Phone: [facility] Work Phone: Start: 06-08-2024 End: 58-60-7165nckcwyevfwIzbp A Lashner MD Work Phone: GastroenterologyComment on above:Crohn's disease of small and large intestines with complication (HCC) (Primary Dx)Start: 06-08-2024 End: 72-62-2516Ecgipzfmqhrz consultation with Kori Lopez MD Work Phone: GastroenterologyStart: 42-63-4888zozlrcqimmUtlhk Krpata MD Work Phone: digestive Disease InstComment on above:06.30.24 Cure (Open VHR 3 hours los 2)Start: 84-35-0489Yemjryutprhbi examination doneAdolfo Ballard MD Work Phone: [facility] ClinicStart: 05-28-2024 End: 44-46-6137Uyugrfd encounter procedureAdolfo Ballard MD Work Phone: General SurgeryComment on above:Incisional hernia, without obstruction or gangrene (Primary Dx); Obesity, Class II, BMI 35-39.9Start: 05-28-2024 End: 53-02-7244thokxkhebnHHS ARIANA PAVLOCKFacility:[facility] HospitalStart: 05-28-2024 End: 22-07-7600jibqyhbxrfCCGKUYET WILSONFacility:[facility] Hospitaltart: 05-28-2024 End: 38-60-1104Cnzjgdk encounter procedureJayleen Becker MD Work Phone: General SurgeryComment on above:HerniaStart: 05-21-2024 End: 29-82-8878tesaivlymbHFF ARIANA PAVLOCKFacility:[facility] Start: 05-21-2024 End: 63-30-0420Zakhlsvkao hospital visit by physicianCt [facility] Radiology Ct ScanComment on above:Crohn's disease of small and large intestines with complication (HCC) [K50.819]Post-operative pain (Primary Dx)Start: 05-21-2024 End: 90-26-7366rtvpjetbznPRQ ARIANA PAVLOCKFacility:[facility] Start: 05-14-2024 End: 37-78-9668Msjvccu encounter procedureRusty Lopez MD Work Phone: GastroenterologyComment on above:Crohn's disease of small and large intestines with complication (HCC) (Primary Dx)Fatty liver (Primary Dx); Elevated liver enzymes; HerniaStart: 05-14-2024 End: 00-58-3749gpotocfeomMPX ARIANA SCHMITTLOCKMesilla Valley Hospital:[facility] Start: 66-93-9565Sdzrzpdmy encounterRusty Lopez MD Work Phone: GastroenterologyComment on above:Orders; Multifold Operator - OtherStart: 01-22-2024 End: 62-38-0999Clrnxizfa department patient visitChetan Rojas ([facility]) [facility]: 01-22-2024 End: 31-22-0521Jlgfcklxt department patient visitMD Chetan Rojas ([facility]) Work Phone: [facility] Work Phone: Start: 09-29-2023 End: 74-48-2936szasjbocwqFhxi A Lashner MD Work Phone: GastroenterologyComment on above:Crohn's disease of small and large intestines with complication (HCC) (Primary Dx)Start: 09-29-2023 End: 77-83-4662Quuircjaddiu consultation with patientRusty Lopez MD Work Phone: ccST[facility] MAINStart: 09-17-2023 End: 16-43-5349ekhjqknywqUWZ ARIANA PAVLOCKGastroenterologyStart: 09-17-2023 End: 22-03-4499Uvlyejf encounter procedureHepatology Procedures A5 Work Phone: ccf [facility] MAINComment on above:Elevated liver enzymes (Primary Dx); Chronic hepatitis C without hepatic coma (HCC); Crohn's disease of small intestine with other complication (HCC)Start: 14-70-4273Tpoucniov encounterHunter Gideon DO Work Phone: Internal MedicineStart: 09-12-2023 End: 99-70-8970dirdbawmndAWHCGM GIDEONFacility:[facility] HospitalStart: 09-12-2023 End: 46-52-5756Vkmdyv outpatient new 20 minutesHunter Gideon DO Work Phone: Internal MedicineComment on above:Crohn's disease of small intestine with other complication (HCC) (Primary Dx); Chronic hepatitis C without hepatic coma (HCC)Start: 11-11-2022 End: 41-54-5969Fqufnhivk department patient visitMS Chetan Rojas ([facility]) Work Phone: [facility]-Emer[facility] RoomStart: 11-01-2022 End: 05-95-8637rnmosyuhbtBL DOCTOR MISCFacility:H6Llkmh: 07-23-2022 End: 50-83-5235hldoykbkvfCT DOCTOR MISCFacility:M9Zxbqb: 05-15-2022 End: 84-32-9649yhylfdljgkGL DOCTOR MISCFacility:R8Qozmr: 21-75-5105Krbxly Only Fernie Hollingsworth DO Work Phone: OrthopaedicsComment on above:Hand injury, right, initial encounter (Primary Dx)Start: 02-07-2022 End: 99-31-1758ibqmwbxinzPaqdwj Olexa Other [employer] Other Start: 67-14-3196Eekbgb follow up visit related to original pxThomas OlexaFPG [facility]icsStart: 01-10-2022 End: 10-77-7938jwiewcihcgZqnkzd Olexa Other [employer] Other Start: 03-17-9649Hoomvr follow up visit related to original pxThomas OlexaFPG [facility]icsStart: 12-31-2021 End: 60-19-9745eexxtjlhwcJbhvnu Olexa Other [employer] Other Start: 80-41-4432Htfkgchjc encounterThomas OlexaFPG [facility] OrthopedicsStart: 12-18-2021 End: 64-63-7658rxufgulvvzDxlgoy Olexa Other [employer] Other Start: 15-72-2135Cdxjiwlaf encounterThomas OlexaFPG [facility] OrthopedicsStart: 12-12-2021 End: 05-73-6012fvrfdhjwunIE DOCTOR MISCFacility:F9Vfqnr: 35-45-3374Jgrbkx outpatient new 45 minutesThomas OlexaFPG [facility] OrthopedicsStart: 05-17-2018 End: 49-93-3557Ycekesdig department patient visitEMERGENCY PHYSICIAN [facility]Start[facility] 2018 End: 69-66-6327Hivyigx encounter procedurePHYSICIAN [facility] Start: 2018 End: 39-54-0191Akmqqr/outpatient visit, new, level 3David Thuan Puente Work Phone: [facility] [place]villeStart: 11-21-2017 End: 49-19-0436Pfjuauyui department patient visitPAUL FRANCISCO RODRIGUEZBenewah Community Hospitaltart: 11-21-2017 End: 03-64-5235Dnlsnsjhg department patient visitPaul Francisco Rodriguez Work Phone: [facility] Emergency Department Procedures DateProcedureProcedure DetailPerforming ClinicianStart: 03-06-0332Eydlkdhd screenMAX PAVLOCKComment on above:Order Comment: Specimen Type: BLOOD SPECIMENOrdering Facility: [facility] Address:[address] [place], [place] [address]Performed By: #### [id number] ####CC MAIN BLOOD BANKCLIA [id number] [facility] [id number] [place] [address] [facility] AMERICAStart: 72-20-6735Zze routine ecg w/least 12 lds i&r onlyCcf Provider Start: 31-12-2573Kq abdomen & pelvis w/contrast Ronak Lopez MD Work Phone: Start: 55-17-5337Dvzsz elastography w/o imag w/i&r Reyna Anton MACHINE ASSEMBLER.[employer] Work Phone: Start: 59-07-0116Cupne elastography w/o imag w/i&r Reyna Anton MACHINE ASSEMBLER.[employer] M[employer] Work Phone: Start: 03-21-2010H/O: ileostomyS/P ileostomyAndrew Matko DO Work Phone: [phone]-InL-2, Influenza & RSV (PCR)MD Chetan Rojas ([facility]) Work Phone: Plan of Treatment DateCare ActivityDetailAuthorStart: 90-87-0360Dqbzuyobb B Vaccine (1 of 3 - Risk 3-dose series)Hepatitis B Vaccine (1 of 3 - Risk 3-dose series)[facility] Start: 11-15-2024 End: 73-52-2394Ahtkvkj encounter xbheorvqv78/16/2024 9:00 AM EST Office Visit Gastroenterology [address] [address] Reyna Anton APRN.[employer] M[employer]ER [address] [place] [address] Chronic Hep CGastroenterologyComment on above:Chronic Hep CStart: 11-15-2024 End: 21-19-3071twbdgyokuz52/16/2024 8:40 AM EST Procedure Gastroenterology [address] [address] Elevated liver enzymes [R74.8]GastroenterologyComment on above:Elevated liver enzymes [R74.8]Start: 08-17-2024 End: 71-05-0696Ntgmit-up /17/2024 4:30 PM EDT [facility] Gastroenterology [address] [address] Rusty Lopez MD [address] [place] [address] Follow upGastroenterologyComment on above:Follow upStart: 34-07-8223Buogh-19 Vaccine ( season)Covid-19 Vaccine ( season)[facility]ertart: 66-22-3729Epgitfcgv vaccinationGenesis Hospital Start: 07-19-2024 End: 73-63-8843Huqrdep encounter jtpebrvwg21/19/2024 8:00 AM EDT Office Visit Pain Management [address] [place] [address] Charleen Silver MD [address] [place] [address] abd painPain ManagementComment on above:abd painStart: 06-30-2024 End: 33-27-3118Nzawqaqbs to same day surgery pfkvwq5606/30/2024 11:45 AM EDT - 06/30/2024 2:15 PM EDT Surgery Admitting [address] [place] [address] Adolfo Ballard MD [address] [place] [address] IMPLANT MESH/PROSTHESIS VENTRAL HERNIA REPAIR GREATER THAN 10cmAdmittingComment on above:IMPLANT MESH/PROSTHESIS VENTRAL HERNIA REPAIR GREATER THAN 10cmStart: 06-30-2024 End: 80-25-9794AONMOAT MESH/PROSTHESIS VENTRAL HERNIA REPAIR GREATER THAN 10cm IMPLANT MESH/PROSTHESIS VENTRAL HERNIA REPAIR GREATER THAN 10cm Preoperative examination Ventral hernia without obstruction or gangrene 06/30/2024 11:45 AM EDTMC MAIN PAVILIONStart: 06-30-2024 End: 53-73-7676Gwortklts to same day surgery oeuxhl8506/30/2024 10:12 AM EDT - 06/30/2024 12:42 PM EDT Surgery Admitting [address] [place] [address] Adolfo Ballard MD [address] [place] [address] IMPLANT MESH/PROSTHESIS VENTRAL HERNIA REPAIR GREATER THAN 10cmAdmittingComment on above:IMPLANT MESH/PROSTHESIS VENTRAL HERNIA REPAIR GREATER THAN 10cmStart: 06-30-2024 End: 20-93-3115Xwrsdhxulo hveunmawtqoq41/31/2024 10:12 AM EDT Anesthesia Event Admitting [address] [place] [address] Bing Cali MD [address] [place] [address] AdmittingStart: 06-30-2024 End: 98-16-4750VUTBCXM MESH/PROSTHESIS VENTRAL HERNIA REPAIR GREATER THAN 10cm IMPLANT MESH/PROSTHESIS VENTRAL HERNIA REPAIR GREATER THAN 10cm Preoperative examination Ventral hernia without obstruction or gangrene 06/30/2024 10:12 [facility] PAVILIONStart: 87-77-0088Rsvbnzghvg hospital visit by physician AdmittingComment on above:Preoperative examination [Z01.818]Start: 06-29-2024 End: 33-94-1937SMEE AND SCREEN,30 [facility]YS[facility] Work Phone: Comment on above:Expected: 06/29/2024, Expires: 09/28/2024Start: 06-29-2024 End: 62-96-0521Huwrbcmqij ifvzkpdcmtoq70/30/2024 12:30 PM EDT PAT Pre Anesthesia [address] [place] [address] PACC, EKG, Labs, Admit InterviewPre AnesthesiaComment on above:PACC, EKG, Labs, Admit InterviewStart: 06-08-2024 End: 31-69-3328zfgpvcsqug30/09/2024 10:00 AM EDT [facility] Gastroenterology [address] [phone] Rusty Lopez MD [address] [place] [address] review resultsGastroenterologyComment on above:review resultsStart: 06-07-2024 End: 31-99-1591pVNK in Platelet poor plasma by Coagulation assayACTIVATED PARTIAL THROMBOPLASTIN TIME Lab Routine Preoperative examination Ventral hernia without obstruction or gangrene Expected: 06/07/2024, Expires: 08/01/2024 [facility] HospitalComment on above:Expected: 06/07/2024, Expires: 08/01/2024Start: 06-07-2024 End: 78-19-1900ZGJ W Auto Differential panel - BloodCOMPLETE BLOOD COUNT AND DIFFERENTIAL Lab Routine Preoperative examination Ventral hernia without ob struction or gangrene Expected: 06/07/2024, Expires: 08/[facility]/20[facility] Comment on above:Expected: 06/07/2024, Expires: 08/01/2024Start: 06-07-2024 End: 22-37-9072Uldysnfymhizw metabolic 2000 panel - Serum or PlasmaCOMPREHENSIVE METABOLIC PANEL Lab Routine Preoperative examination Ventral hernia without obstruction or gangrene Expected: 06/07/2024, Expires: 08/01/2024[facility] ClinicComment on above:Expected: 06/07/2024, Expires: 08/01/2024Start: 06-07-2024 End: 56-83-6372FPIJWLP BLOOD TYPECONFIRM BLOOD TYPE Blood Bank Routine Preoperative examination Ventral hernia without obstruction or gangrene Expected: 06/07/2024, Expires: 08/01/2024[facility] ClinicComment on above: Expected: 06/07/2024, Expires: 08/01/2024Start: 06-07-2024 End: 50-61-8804SD panel - Platelet poor plasma by Coagulation assayPROTHROMBIN TIME Lab Routine Preoperative examination Ventral hernia without obstruction or gangrene Expected: 06/07/2024, Expires: 08/01/2024[facility] ClinicComment on above:Expected: 06/07/2024, Expires: 08/01/2024Start: 05-21-2024 End: 52-41-2564Gaepuue encounter procedureRadiology Ct ScanComment on above:CT ENTEROGRAPHY W IVCONStart: 05-14-2024 End: 90-25-5216Sprrb 1 antitrypsin [Mass/volume] in Serum or Plasma SCGWE-7-EKKLTGQVVWR Lab Routine Elevated liver enzymes Fatty liver Expected: 05/14/2024, Expires: 08/13/2024[facility] ClinicComment on above:Expected: 05/14/2024, Expires: 08/13/2024Start: 05-14-2024 End: 08-13-2024 reactive protein [Mass/volume] in Serum or PlasmaC-REACTIVE PROTEIN Lab Routine Crohn's disease of small and large intestines with complication (HCC) Expected: 05/14/2024, Expires: 08/13/2024[facility] Comment on above:Expected: 05/14/2024, Expires: 08/13/2024Start: 05-14-2024 End: 71-35-3261TLE panel - Blood by Automated countCOMPLETE BLOOD COUNT Lab Routine Crohn's disease of small and large intestines with complication (HCC) Expected: 05/14/2024, Expires: 08/13/2024[facility] Work Phone: Comment on above:Expected: 05/14/2024, Expires: 08/13/2024Start: 05-14-2024 End: 51-81-8915Ppglraejbiqxm [Mass/volume] in Serum or PlasmaCERULOPLASMIN Lab Routine Elevated liver enzymes Fatty liver Expected: 05/14/2024, Expires: 08/13/2024[facility] ClinicComment on above:Expected: 05/14/2024, Expires: 08/13/2024Start: 05-14-2024 End: 37-63-1192Igyhghr hepatitis differentiation between hepatitis B and C virus panel - Serum or PlasmaHEP REMOTE PANEL BL Lab Routine Crohn's disease of small and large intestines with complication (HCC) Expected: 05/14/2024, Expires: 08/13/2024[facility] ClinicComment on above:Expected: 05/14/2024, Expires: 08/13/2024Start: 05-14-2024 End: 81-66-4152Wfzjxuosildja metabolic 2000 panel - Serum or PlasmaCOMPREHENSIVE METABOLIC PANEL Lab Routine Crohn's disease of small and large intestines with complication (HCC) Expected: 05/14/2024, Expires: 08/13/2024[facility] Comment on above:Expected: 05/14/2024, Expires: 08/13/2024Start: 05-14-2024 End: 22-69-4771TTFXVVDXCN BLDCREATININE BLD Lab Routine Crohn's disease of small and large intestines with complication (HCC) Expected: 05/14/2024, Expires: 08/13/2024[facility] ClinicComment on above:Expected: 05/14/2024, Expires: 08/13/2024Start: 05-14-2024 End: 89-02-2608HIJ BE ANTIBODYHEP BE ANTIBODY Lab Routine Elevated liver enzymes Fatty liver Expected: 05/14/2024, Expires: 08/13/2024[facility] ClinicComment on above:Expected: 05/14/2024, Expires: 08/13/2024Start: 05-14-2024 End: 88-14-2364HNJ BE ANTIGENHEP BE ANTIGEN Lab Routine Elevated liver enzymes Fatty liver Expected: 05/14/2024, Expires: 08/13/2024[facility] ClinicComment on above:Expected: 05/14/2024, Expires: 08/13/2024Start: 05-14-2024 End: 44-64-9922Dnkoswicj B virus DNA [Units/volume] in SerumHEPATITIS B VIRUS DNA QUANTIFICATION, PLASMA/SERUM Lab Routine Elevated liver enzymes Fatty liver Expected: 05/14/2024, Expires: 08/13/2024[facility] ClinicComment on above: Expected: 05/14/2024, Expires: 08/13/2024Start: 05-14-2024 End: 71-04-9991Neaql kidney microsomal Ab [Titer] in Serum by Immunofluorescence LKM AB Lab Routine Elevated liver enzymes Fatty liver Expected: 05/14/2024, Expires: 08/13/2024[facility] ClinicComment on above:Expected: 05/14/2024, Expires: 08/13/2024Start: 05-14-2024 End: 48-12-8575Rydtapyzkcue Ab [Presence] in Serum by Immunofluorescence MITOCHONDRIAL M2 IGG SERUM Lab Routine Elevated liver enzymes Fatty liver Expected: 05/14/2024, Expires: 08/13/2024[facility] ClinicComment on above: Expected: 05/14/2024, Expires: 08/13/2024Start: 05-14-2024 End: 89-72-2560Ukkfisv Ab [Presence] in Serum by ImmunoassayANA BLOOD Lab Routine Elevated liver enzymes Fatty liver Expected: 05/14/2024, Expires: 08/13/2024[facility] Work Phone: Comment on above:Expected: 05/14/2024, Expires: 08/13/2024Start: 05-14-2024 End: 49-99-7097SR panel - Platelet poor plasma by Coagulation assayPROTHROMBIN TIME Lab Routine Elevated liver enzymes Fatty liver Expected: 05/14/2024, Expires: 08/13/2024[facility] ClinicComment on above:Expected: 05/14/2024, Expires: 08/13/2024Start: 05-14-2024 End: 87-66-0286Dqrfas muscle Ab [Presence] in SerumSMOOTH MUSCLE AB SCR Lab Routine Elevated liver enzymes Fatty liver Expected: 05/14/2024, Expires: 0 08/13/2024[facility] ClinicComment on above:Expected: 05/14/2024, Expires: 08/13/2024Start: 51-38-7811Ycklwsuhme Health ScreeningBehavioral Health ScreeningMercy Health St. Vincent Medical Centertart: 10-18-2023 End: 63-28-4182Qadagbq function 2000 panel - Serum or PlasmaHEPATIC FUNCTION PNL Lab Routine Chronic hepatitis C without hepatic coma (HCC) Elevated liver enzym es Expected: 10/18/2023, Expires: 01/17/2024[facility] Work Phone: Comment on above:Expected: 10/18/2023, Expires: 01/17/2024Start: 09-17-2023 End: 27-08-6421Cygmm 1 antitrypsin [Mass/volume] in Serum or Plasma FSASD-1-CKFSDKVNX BL Lab Routine Chronic hepatitis C without hepatic coma (HCC) Elevated liver enzymes Expected: 09/17/2023, Expires: 12/17/2023[facility] Work Phone: Comment on above:Expected: 09/17/2023, Expires: 12/17/2023Start: 09-17-2023 End: 32-78-5584Dszpupcgmejhw [Mass/volume] in Serum or PlasmaCERULOPLASMIN BLD Lab Routine Chronic hepatitis C without hepatic coma (HCC) Elevated liver enzymesExpected: 09/17/2023, Expires: 12/17/2023[facility] Work Phone: Comment on above:Expected: 09/17/2023, Expires: 12/17/2023Start: 09-17-2023 End: 47-44-7450Moxbmgiq [Mass/volume] in Serum or PlasmaFERRITIN BLD Lab Routine Chronic hepatitis C without hepatic coma (HCC) Elevated liver enzymes Expected: 09/17/2023, Expires: 12/17/2023[facility] Work Phone: Comment on above:Expected: 09/17/2023, Expires: 12/17/2023Start: 09-17-2023 End: 42-84-5059Mxpel glutamyl transferase [Enzymatic activity/volume] in Serum or PlasmaGGT BLD Lab Routine Elevated liver enzymes Expected: 09/17/2023, Expires: 12/17/2023[facility] Work Phone: Comment on above:Expected: 09/17/2023, Expires: 12/17/2023Start: 09-17-2023 End: 95-80-3142Vrbuhjkejh A1c in BloodHGB A1C Lab Routine Chronic hepatitis C without hepatic coma (HCC) Elevated liver enzymes Expected:09/17/2023, Expires: 12/17/2023[facility] Work Phone: Comment on above:Expected: 09/17/2023, Expires: 12/17/2023Start: 09-17-2023 End: 79-64-8689GWTLBEXEM A ANTIBODY, IGGHEPATITIS A ANTIBODY, IGG Lab Routine Chronic hepatitis C without hepatic coma (HCC) Elevated liverenzymes Expected: 09/17/2023, Expires: 12/17/2023[facility] Work Phone: Comment on above:Expected: 09/17/2023, Expires: 12/17/2023Start: 09-17-2023 End: 01-69-5337Uapfepanz B virus core Ab [Presence] in SerumHEP B CORE AB TOTAL Lab Routine Chronic hepatitis C without hepatic coma (HCC) Elevated liver enzyme s Expected: 09/17/2023, Expires: 12/17/2023[facility] Work Phone: Comment on above:Expected: 09/17/2023, Expires: 12/17/2023Start: 09-17-2023 End: 71-75-4750Lzltvepix B virus surface Ab [Presence] in SerumHEP B SURF AB Lab Routine Chronic hepatitis C without hepatic coma (HCC) Elevated liver enzymes Expected: 09/17/2023, Expires: 12/17/2023[facility] Work Phone: Comment on above:Expected: 09/17/2023, Expires: 12/17/2023Start: 09-17-2023 End: 60-31-1642KTP gene targeted mutation analysis in Blood or Tissue by Molecular genetics methodHFE (HEMOCHROMATOSIS) Lab Routine Chronic hepatitis C without hepatic coma (HCC) Elevated liver enzymes Expected: 09/17/2023, Expires: 12/17/2023[facility] Work Phone: Comment on above:Expected: 09/17/2023, Expires: 12/17/2023Start: 09-17-2023 End: 84-55-1107QwN [Mass/volume] in Serum or PlasmaIGG Lab Routine Elevated liver enzymes Expected: 09/17/2023, Expires: 12/17/2023[facility] Work Phone: Comment on above:Expected: 09/17/2023, Expires: 12/17/2023Start: 09-17-2023 End: 81-18-2444DzI [Mass/volume] in Serum or PlasmaIGM Lab Routine Elevated liver enzymes Expected: 09/17/2023, Expires: 12/17/2023[facility] Work Phone: Comment on above:Expected: 09/17/2023, Expires: 12/17/2023Start: 09-17-2023 End: 62-70-5823Zbxy and Iron binding capacity panel - Serum or PlasmaIRON + TIBC Lab Routine Chronic hepatitis C without hepatic coma (HCC) Elevated liver enzymes Expected: 09/17/2023, Expires: 12/17/2023[facility] Work Phone: Comment on above:Expected: 09/17/2023, Expires: 12/17/2023Start: 09-17-2023 End: 57-07-4316Cqxis 1996 panel - Serum or PlasmaLIPID PANEL BASIC Lab Routine Chronic hepatitis C without hepatic coma (HCC) Elevated liver enzymesExpected: 09/17/2023, Expires: 12/17/2023[facility] Work Phone: Comment on above:Expected: 09/17/2023, Expires: 12/17/2023Start: 09-17-2023 End: 78-72-1212Aisfxbbzyxrc Ab [Presence] in Serum by Immunofluorescence MITOCHONDRIAL M2 IGG SERUM Lab Routine Chronic hepatitis C without hepatic coma (HCC) Elevated liver enzymes Expected: 09/17/2023, Expires: 12/17/2023[facility] Work Phone: Comrtfk on above:Expected: 09/17/2023, Expires: 12/17/2023Start: 09-17-2023 End: 73-67-7067Fcumrqs Ab [Presence] in Serum by ImmunoassayANA BLOOD Lab Routine Chronic hepatitis C without hepatic coma (HCC) Elevated liver enzymes Expected: 09/17/2023, Expires: 12/17/2023[facility] Work Phone: Comment on above:Expected: 09/17/2023, Expires: 12/17/2023Start: 09-17-2023 End: 72-09-9678Ewenir muscle Ab [Presence] in SerumSMOOTH MUSCLE AB SCR Lab Routine Chronic hepatitis C without hepatic coma (HCC) Elevated liver enzymes Expected: 09/17/2023, Expires: 12/17/2023[facility] Work Phone: Comment on above:Expected: 09/17/2023, Expires: 12/17/2023Start: 09-12-2023 End: 42-41-1842Fbclp hepatitis 2000 panel - [facility] Work Phone: Combfff on above:Expected: 09/12/2023, Expires: 11/12/2023Start: 09-12-2023 End: 49-87-6096Iuvpabbic B virus core IgM Ab [Presence] in [facility] Work Phone: Comment on above:Expected: 09/12/2023, Expires: 11/12/2023Start: 09-12-2023 End: 03-83-9098Xdswmecmj B virus surface Ab [Presence] in [facility] Work Phone: Comevwn on above:Expected: 09/12/2023, Expires: 11/12/2023Start: 09-12-2023 End: 71-96-4966Itxglccwb B virus surface Ag [Presence] in [facility] Work Phone: Comment on above:Expected: 09/12/2023, Expires: 11/12/2023Start: 09-12-2023 End: 39-12-7663Kmzxxscgn C virus RNA [Units/volume] (viral load) in Serum or Plasma by GERMÁN with probe detectionSumma Health Wad[facility] - [facility] Work Phone: Comment on above:Expected: 09/12/2023, Expires: 11/12/2023Start: 09-12-2023 End: 05-07-1359UOL 1+2 Ab [Presence] in Serum or Plasma by ImmunoassaySumma Health W[facility] Work Phone: Comment on above:Expected: 09/12/2023, Expires: 11/12/2023Start: 28-91-4602Drtyr-19 Vaccine ( season)Covid-19 Vaccine ( season)[facility]: 26-74-4973Pxxvhrdad vaccination Influenza Vaccine (#1)[facility]: 58-46-4484Ptflitqqpc Assessment Depression AssessmentMercy Health St. Vincent Medical Centertart: 09-15-1986Gpydtzois vaccination INFLUENZA (Season Ended)[facility]: 93-29-2525Girksqkiq vaccination SEQUENTIAL INFLUENZA VACCINE (Season Ended)[facility]: 97-04-9904Wjoerzsuf vaccinationSEQUENTIAL INFLUENZA VACCINE (#1)[facility] Work Phone: Start: 75-78-5535Uywrplkbi A Vaccine (1 of 2 - Risk 2- dose series)Hepatitis A Vaccine (1 of 2 - Risk 2-dose series)[facility] Start: 52-41-8123IYYNHHHLW B (1 of 3 - Risk 3-dose series)HEPATITIS B (1 of 3 - Risk 3-dose series)[facility]: 17-66-7045Yizjumngi B Vaccine (1 of 3 - 19+ 3-dose series)Hepatitis B Vaccine (1 of 3 - 19+ 3-dose series)[facility]: 32-59-4605Zivjx microalbumin profileCleKnox Community Hospitaltart: 65-00-8813Iahoyztaog ScreeningDepression ScreeningCleKnox Community Hospitaltart: 78-84-5730QOE (1 of 2 - Risk 2-dose series)MMR (1 of 2 - Risk 2-dose series) [facility]: 10-80-1044JSJ Vaccine (1 of 2 - Risk 2-dose series)MMR Vaccine (1 of 2 - Risk 2-dose series)[facility]: 67-38-4193Drsdh depression screening assessmentDEPRESSION SCREENINGMercy Health St. Vincent Medical Centertart: 49-38-9229Rykowyidfopzc B Vaccine: Consider Based On Risk (1 of 4 - Increased Risk)Meningococcal B Vaccine: Consider Based On Risk (1 of 4 - Increased Risk) [facility]: 61-85-0065MPLCSSFRYPNZR B: Consider based on risk (1 of 4 - Increased Risk Bexsero 2-dose series)MENINGOCOCCAL B: Consider based on risk (1 of 4 - Increased Risk Bexsero 2-dose series)[facility] Cent[facility]: 1997 PNEUMOCOCCAL (1 - PCV)PNEUMOCOCCAL (1 - PCV)[facility]: [address] Vincent Medical Centertart: 03-67-1610ANHWL-19 VACCINE (#1) COVID-19 VACCINE (#1)[facility]: 47-32-4219QERNNHSIR A (1 of 2 - Risk 2-dose series)HEPATITIS A (1 of 2 - Risk 2-dose series)[facility]: 79-76-6188Cybio-19 Vaccine (#1)Covid-19 Vaccine (#1)[facility] Cent[facility]art: 62-57-2208Wwchxle vaccinationTETANUS EVERY 10 YRUniversity Hospitals [facility] Medical [facility] Work Phone: End: 42-81-6563Ej abdomen & pelvis w/contrast materialCT ENTEROGRAPHY W IVCON Radiology Routine Crohn's disease of small and large intestines with complic ation (HCC) 1 [facility]ur[facility] 09/29/2023 [facility] Work Phone: Comment on above:1 Occurrences starting 09/29/2023 until 10/28/2024 End: 47-54-5687OT Small bowel W contrast PO and W contrast IVCT ENTEROGRAPHY W IVCON Radiology Routine Crohn's disease of small and large intestines with complication (HCC) 1 Occurrences starting 05/14/[address] [facility] ClinicComment on above:1 Occurrences starting 05/14/2024 until 06/13/2025 End: 98-54-5264TQI COMPLETEECG COMPLETE ECG Routine Preoperative examination Ventral hernia without obstruction or gangrene 1 Occurrences starting 05/31/[address] [facility] ClinicComment on above:1 Occurrences starting 05/31/2024 until 05/31/2025ECG COMPLETEECG COMPLETE ECG 06/29/2024 12:32 PM EDT [facility] CenterIMPLANT MESH/PROSTHESIS VENTRAL HERNIA REPAIR GREATER THAN 10cmIMPLANT MESH/PROSTHESIS VENTRAL HERNIA REPAIR GREATER THAN 10cm Preoperative examination Ventral hernia without obstruction or gangreneCleveland ClinicLiver ultrasound attenuation by transient elastographyDDI VIBRATION CONTROLLED TRANSIENT ELASTOGRAPHY (VCTE) Endoscopy Routine Elevated liver enzymes Fatty liver Ordered: 05/14/2024Corey HospitalComment on above:Ordered: 05/14/2024atient EducationProne Position [facility] [place] COVID-[facility] Work Phone: [facility] referralAshtabula [facility] Work Phone: REFER FOR ADMIT INTERVIEWREFER FOR ADMIT INTERVIEW Procedures Routine Preoperative examination Ventral hernia without obstruction or gangrene Or[facility]: [facility]/31/2024[facility] Work Phone: Comment on above:Ordered: 05/31/2024 End: 28-12-3331XC ABD RIGHT UPPER QUADRANTUS ABD RIGHT UPPER QUADRANT Radiology Routine Chronic hepatitis C without hepatic coma (HCC) 1 Occurrences starting 09/12/[address] [place] [address] Work Phone: Comment on above:1 Occurrences starting 09/12/2023 until 10/11/2024 End: 16-37-2306GB HAND GENERAL 3V PA/LAT/OBL RIGHTXR HAND GENERAL 3V PA/LAT/OBL RIGHT Radiology Routine Hand injury, right, initial encounter 1 Occurrences starting 04/30/[address] [place] [address] Work Phone: Comment on above:1 Occurrences starting 04/30/2022 until 05/30/2023[facility] Immunizations Immunization DateImmunizationNotesCare [id number] Olexa Other [address] [employer] Other [id number] Olexa Other [address] [employer] Other NEGATED: Highlighted row has not occurred!03-24-2021 tetanus toxoid, reduced diphtheria toxoid, and acellular pertussis vaccine, adsorbedMD Chetan Hebron ([facility]) Work Phone: [facility] Hospital[facility]: Highlighted row has not occurred!94-75-6436rtcojwi toxoid, reduced diphtheria toxoid, and acellular pertussis vaccine, adsorbedMD Chetan Hebron ([facility]) Work Phone: [facility] Payers DatePayer CategoryPayerPolicy [id number] 2023Medicaid[place] MEDICAID [place] MEDICAID [id number] 2023-Present [phone] [place] [address] [place] [address] [id number] 2021Medicaidid [place] MEDICAID [id number] 2021-Present [phone] [place] [address] [id number] [id number] [id number] 2..[id number] 2.16.84[id number] 2.16.840.1.884281.3.57[id number] 2.16.840.1.543234.3.57[id number] 2.16.840.1.211443.3.579.2.593 [id number] [id number] [id number] FREETEXT PAYOR [facility] FREETEXT PAYOR [id number] Effective for all dates [address] [place] [address] Other [id number]'s [id number] Social History DateTypeDetailFacilityStart: 2018 End: 08-06-6590Idygcwe smoking status NHISCurrent every day smokerGenesis HospitalHistory of tobacco useCigarette SmokerOhioHealth Work Phone: Start: 2018 End: 39-19-5395Isxbwigiaw smoked current (pack per day) - ReportedGenesis Hospital Work Phone: Start: 72-69-7682Emd Assigned At BirthNot on file [facility] Work Phone: Start: 10-08-2021 End: 68-16-3806Kpbecjh intakeCurrent drinker of alcohol (finding)[facility] Centertart: 12-19-2022 End: 69-29-7142Eld Assigned At BirthGenesis Hospital Work Phone: Start: 65-61-4077Ejwbxyq smoking status NHISSmoker (finding)[facility] Cent[facility]: 84-19-7095Zbx Assigned At MaleTogus VA Medical Centertart: 60-15-3935Ulilaig use and exposure Smokeless tobacco non-userGenesis HospitalNational Score (1-100), lower number is lower urwx65OpgtsiewiMercy Health St. Vincent Medical Centertart: 21-87-1125Xmqpnv identityIdentifies as male gender (finding)[facility] Centertart: 59-13-2684Aiqnjta Comment4-5 shots per dayRegency Hospital Company the electric, gas, oil, or water company threatened to shut off services in your home in past 12MoNoClTriHealth Good Samar[facility] Work Phone: (I/We) worried whether (my/our) food would run out before (I/we) got money to buy more.Never trueGenesis Hospital Medical Equipment Procedure CodeEquipment CodeEquipment Original TextEquipment IdentifierDatesMesh Prolene [place] [id number] Surgical Knit Nonabsorbable Nonreactive - [id number]: 06-30-2024 Clinical Notes 09-06-2012 to 08-13-2024 Note Date & OqcvQgqgXfsgeywi24-85-5486 Telephone encounter Note* Telephone Encounter - Adolfo Ballard MD - 08/13/2024 8:25 AM EDT I called Mr Momin because he continues to send [employer] messages with misinformation. I answered hisquestions. I [...] him. He thanked me for the call. [facility]09-13-2024 Miscellaneous Notes* Telephone Encounter - Adolfo Ballard MD - 08/13/2024 8:25 AM EDT I called Mr Momin because he continues to send [employer] messages with misinformation. I answered hisquestions. I [...] me for the call. documented in this encounterGenesis Hospital08-19-2024 NoteUniversity Hospitals Parma Medical Center08-19-2024 History of Present illness Narrative* Adolfo Ballard [...] as the recommendation for Cymbalta from the ceramic painter. He does not want to take any his medications and prefers opioids. I do not write cassandra prescription for any opioids today. I continue with my recommendation that he should resume his Suboxone consistent with pain management recommendations. He can follow-up as needed. documented in this encounterGenesis Hospital08-19-2024 NoteHNO ID: [id number] Author: CHARLEEN SILVER MD Service: ? Author Type: Physician Type: Progress Notes Filed: 07/19/2024 08:45 Note Text: [facility] Department Consultation Date: July [...] the past who has been treated at [facility] recently for abdominal hernia repair with a [...] transfusion 03/21/2010: Pneumonia 1 (more content not included)...[facility]08-19-20[facility] History of Present illness Narrative* Charleen Silver MD - 07/19/2024 7:56 AM EDT [facility] Consultation Date: July [...] the past who has been treated at [facility] recently for abdominal hernia repair with a [...] No date: Bowel disease No date: Cancer ([facility]) No date: Chronic obstructive pulmonary disease (COPD) ([facility]) No date: Congestive heart failure ([facility]) 2008: Crohn's No date: History of transfusion 03/21/2010: Pneumonia 11/06/2015: SBO (small bowel obstruction) ([facility]) Comment: - CT : bowl obstruction with transition point at the [facility] -NPO -IVF -pain control -Phenergen for n/v [...] INTESTINE Comment: Performed by FRANCO GARCIA at [facility] 03/31/2008: PAST SURGICAL HISTORY OF [...] signature CC Chetan Rojas MD, MD through [employer] documented in this encounterGenesis Hospital08-12-2024 Telephone encounter Note * Telephone Encounter [...] the phone with him. Adolfo Ballard MD [facility] Work Phone: 1(679) 925-742208-12-2024 Miscellaneous Notes* Telephone Encounter - Adolfo Ballard [...] him. Adolfo Ballard MD documented in this encounterGenesis Hospital08-11-2024 NoteUniversity Hospitals Parma Medical Center08-11-2024 History of Present illness Narrative* Antoni Kong MD - 07/11/2024 11:33 AM EDT Virtualist Progress Note Triage Call I have communicated my name and active licensure. The patient's identity and physical location wereverified at the time of this visit. Either the patient or their legal customer solutions representative has been informed of the risks and benefits of -- and alternatives to -- treatment through a remote evaluation andconsents to proceed with the evaluation remotely. Triage source: Triage Call (Nurse Order Puller, [facility] Care at Home - [facility] Triage, [facility] Triage, [facility] Phone Triage) Was [...] CC Home Care nurse triage, or an [facility] Care, the disposition is Go to ED Now ): Go to ED Now Virtualist Recommended Disposition: Go to ED Signed in as Primary Virtualist, Secondary Virtualist, or [facility] Telehealth provider: Secondary documented in this encounterGenesis Hospital08-11-2024 Telephone encounter Note * Telephone Encounter [...] strands.) Protocols used: Urine - Blood In-ADULT-AH [facility]08-11-2024 Miscellaneous Notes* Telephone Encounter - Katherine [...] Urine - Blood In-ADULT- documented in this encounterGenesis Hospital08-08-2024 NoteUniversity Hospitals Parma Medical Center08-08-2024 NoteUniversity Hospitals Parma Medical Center08-08-2024 NoteUniversity Hospitals Parma Medical Center08-08-2024 NoteUniversity Hospitals Parma Medical Center08-07-2024 Note [facility]08-06-2024 NoteUniversity Hospitals Parma Medical Center08-06-2024 NoteUniversity Hospitals Parma Medical Center08-06-2024 NoteUniversity Hospitals Parma Medical Center 07-05-2024 NoteUniversity Hospitals Parma Medical Center08-04-2024 NoteUniversity Hospitals Parma Medical Center08-04-2024 NoteUniversity Hospitals Parma Medical Center08-04-2024 NoteUniversity Hospitals Parma Medical Center08-04-2024 NoteUniversity Hospitals Parma Medical Center08-03-2024 Note [facility]08-03-2024 NoteUniversity Hospitals Parma Medical Center08-02-2024 NoteUniversity Hospitals Parma Medical Center08-01-2024 NoteUniversity Hospitals Parma Medical Center 06-30-2024 NoteUniversity Hospitals Parma Medical Center07-30-2024 History and physical note* Nataliia Baez, KATHIA.SLAG MIXER - 06/29/2024 12:30 PM EDT Images from [...] years old or younger STOP-Bang Score: 2 [id number] Score: Age: <65 Sex: male [id number] Score: ARISCAT Score: Age: <=50 Preoperative SpO2: [...] of Planned Surgery or Procedure: Answer: [facility] [place] Order Specific Question: Status of surgery/procedure: Answer: [...] transfusion Pneumonia 03/21/2010 SBO (small bowel obstruction) ([facility]) 11/06/2015 - CT : bowl obstruction with transition point at the [facility] -NPO -IVF -pain control -Phenergen for n/v-for [...] INTESTINE 08/31/2010 Performed by FRANCO GARCIA at [facility] PAST SURGICAL HISTORY OF 03/31/2008 2 lung [...] fevers. Neuro: No history of TIA's, stroke, CHANNEL PROCESS PLANT OPERATOR tumor, impaired sensorium, hemiplegia, paraplegia or quadraplegia. No neurological symptoms or problems. Respiratory: Positive for Tobacco Use 0.5ppd , Negative for No history of current cough or dyspnea,or pneumonia in the past 6 weeks. No history of respiratory/pulmonary symptoms or problems Cardiovascular: No history of HTN requiring medication, no history of angina, CHF, MT, cardiac surgery or stents. Denies rest pain, [...] Angelita Momin DATE: 06/29/2024 TIME: 12:04 PM [facility]07-30-2024 History and physical note* Nataliia Baez [...] years old or younger STOP-Bang Score: 2 [id number] Score: Age: <65 Sex: male [id number] Score: ARISCAT Score: Age: <=50 Preoperative SpO2: [...] of Planned Surgery or Procedure: Answer: [facility] [place] Order Specific Question: Status of surgery/procedure: Answer: [...] transfusion Pneumonia 03/21/2010 SBO (small bowel obstruction) ([facility]) 11/06/2015 - CT : bowl obstruction with transition point at the [facility] -NPO -IVF -pain control -Phenergen for n/v-for [...] INTESTINE 08/31/2010 Performed by FRANCO GARCIA at [facility] PAST SURGICAL HISTORY OF 03/31/2008 2 lung [...] fevers. Neuro: No history of TIA's, stroke, CHANNEL PROCESS PLANT OPERATOR tumor, impaired sensorium, hemiplegia, paraplegia or quadraplegia. No neurological symptoms or problems. Respiratory: Positive for Tobacco Use 0.5ppd , Negative for No history of current cough or dyspnea,or pneumonia in the past 6 weeks. No history of respiratory/pulmonary symptoms or problems Cardiovascular: No history of HTN requiring medication, no history of angina, CHF, MT, cardiac surgery or stents. Denies rest pain, [...] 06/29/2024 TIME: 12:04 PM documented in this encounterGenesis Hospital07-29-2024 Instructions* Patient Instructions* Nataliia Baez APRN.CNP - 06/28/2024 7:46 AM EDT PATIENT PREOPERATIVE INSTRUCTIONS Ramses, Renee, MACHINE ASSEMBLER.C* has scheduled you for your procedure at this surgery center: [facility] [place] Scheduling Office: [phone] --[address] [place] [address]. Please read below carefully for your personalized [...] Procedures: - YOU MUST HAVE A RESPONSIBLE PUMPER GAUGER APPRENTICE TAKE YOU HOME. A A&P TECHNICIAN OR WOOD STRIP BLOCK FLOOR INSTALLER CANNOT BE MADE A RESPONSIBLE PUMPER GAUGER APPRENTICE. - We recommend that a responsible person [...] call the Friday before. Your surgeon s underwear hemmer will tell you what time to call the office. - If you have not reached the departmental underwear hemmer by 5 P.M., call [phone] after 5 P.M. the day before your surgery. Please be aware that emergency situations arise, which may delay or change your surgical time. If this happens, we will notify you as soon as possible and regret any inconvenience. If you already have an Advance Directive, please fax a copy to [phone] or email to for it to be [...] your chart that day. documented in this encounterGenesis Hospital07-16-2024 History and physical note * Jayleen [...] related and reports once daily bowel movements. 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 Neuro: No history of TIA's, stroke, CHANNEL PROCESS PLANT OPERATOR tumor, impaired sensorium, hemiplegia, paraplegia or quadriplegia. No neurological symptoms or problems. Respiratory: No history of current cough or dyspnea, or pneumonia in the past 6 weeks. No history of respiratory/pulmonary symptoms or problems. Cardiovascular: No history of HTN requiring medication, no history of angina, CHF, MT, cardiac surgery or stents. Denies rest pain, gangrene or revascularization/amputation for PVD. No history of cardiovascular symptoms or problems. GI: GERD, Nausea, Abdominal pain : No history of UTI in past 6 weeks. No history of renal failure. Not currently on or requiring dialysis. No history of symptoms or problems. LATHE WINDER: Not reviewed Endocrine: No history of diabetes. [...] 15, 2024 TIME: 5:30 AM PAGER/CONTACT #: [facility]07-16-2024 History and physical note* Jayleen Becker [...] daily bowel movements. 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 Neuro: No history of TIA's, stroke, CHANNEL PROCESS PLANT OPERATOR tumor, impaired sensorium, hemiplegia, paraplegia or quadriplegia. No neurological symptoms or problems. Respiratory: No history of current cough or dyspnea, or pneumonia in the past 6 weeks. No history of respiratory/pulmonary symptoms or problems. Cardiovascular: No history of HTN requiring medication, no history of angina, CHF, MT, cardiac surgery or stents. Denies rest pain, gangrene or revascularization/amputation for PVD. No history of cardiovascular symptoms or problems. GI: GERD, Nausea, Abdominal pain : No history of UTI in past 6 weeks. No history of renal failure. Not currently on or requiring dialysis. No history of symptoms or problems. LATHE WINDER: Not reviewed Endocrine: No history of diabetes. [...] 5:30 AM PAGER/CONTACT #: documented in this encounterGenesis Hospital07-09-2024 NoteUniversity Hospitals Parma Medical Center07-09-2024 History of Present illness Narrative* Rusty Lopez MD - 06/08/2024 10:01 AM EDT Telephone encounter, 20 minutes, patient agreed I have communicated my name and active licensure. The patient's identity and physical location wereverified at the time of this visit. Either the patient or their legal customer solutions representative has been informed of the risks [...] day. MyChart follow up.. documented in this encounterGenesis Hospital06-28-2024 NoteHNO ID: [id number] Author: ADOLFO BALLARD MD Service: ? Author Type: Physician Type: Progress Notes Filed: 06/02/2024 09:39 Note Text: Consultation requested by Dr. Jayleen Becker for an opinion regarding hernia. My final recommendations will be communicated back to the requesting physician by way of shared medical record or letter via US mail [facility] - HISTORY AND [...] transfusion Pneumonia 03/21/2010 SBO (small bowel obstruction) ([facility]) 11/06/2015 - CT : bowl obstruction with [...] INTESTINE 08/31/2010 Performed by FRANCO GARCIA at [facility] PAST SURGICAL HISTORY OF 03/2008 2 lung [...] SYSTEMS GI: No nause (more content not included)...[facility]06-28-2024 History of Present illness Narrative* Adolfo Ballard MD - 05/28/2024 10:16 AM EDT Consultation requested by Dr. Jayleen Becker for an opinion regarding hernia. My final recommendations will be communicated back to the requesting physician by way of shared medical record or lettervia US mail [facility] - HISTORY AND [...] transfusion Pneumonia 03/21/2010 SBO (small bowel obstruction) ([facility]) 11/06/2015 - CT : bowl obstruction with transition point at the [facility] -NPO -IVF -pain control -Phenergen for n/v-for [...] INTESTINE 08/31/2010 Performed by FRANCO GARCIA at [facility] PAST SURGICAL HISTORY OF 03/2008 2 lung [...] Level: 4 - Moderate documented in this encounterGenesis Hospital06-28-2024 Nurse Note* Sera Cummings MA - [...] a Temperature: No Drains: No patient declined boatbuilder apprentice wood Sera Cummings MA May 28, 2024 10:03 AM [facility]06-28-2024 Nurse Note* Sera Cummings MA - [...] a Temperature: No Drains: No patient declined boatbuilder apprentice wood Sera Cummings MA May 28, 2024 10:03 AM documented in this encounterGenesis Hospital06-28-2024 Nurse Note* Freida Gonzalez LPN - 05/28/2024 8:41 AM EDT What is the reason for your visit today? incisional hernia Who is your referring physician? LIZET Anton Are you having poor oral intake? NO Have you had unintentional weight loss of 15 lbs/7 Kg in the last 3-6 months? NO Bowels: regular \ patient declined boatbuilder apprentice wood Freida Gonzalez LPN [facility]06-28-2024 Nurse Note* Freida Gonzalez LPN - 05/28/2024 8:41 AM EDT What is the reason for your visit today? incisional hernia Who is your referring physician? LIZET Anton Are you having poor oral intake? NO Have you had unintentional weight loss of 15 lbs/7 Kg in the last 3-6 months? NO Bowels: regular \ patient declined boatbuilder apprentice wood Freida Gonzalez LPN documented in this encounterGenesis Hospital06-21-2024 History of Present illness Narrative* Jannie [...] PATIENT PRESENTS WITH AN IMPLANTABLE OR ATTACHED ACETYLENE GAS COMPRESSOR: No RADIOLOGY DEPARTMENT: CT; Exam(s) Completed: Enterography PERIPHERAL IV DATA: Not applicable SIGNED BY: RT Patrick(R) May 21, 2024 2:50 PM documented in this encounterGenesis Hospital06-21-2024 NoteUniversity Hospitals Parma Medical Center06-21-2024 NoteUniversity Hospitals Parma Medical Center06-21-2024 History of Present illness Narrative* Jannie Caraballo [...] 2:28 PM PAGER/CONTACT #: documented in this encounterGenesis Hospital06-21-2024 NoteUniversity Hospitals Parma Medical Center06-21-2024 NoteUniversity Hospitals Parma Medical Center06-17-2024 Telephone encounter Note* Telephone Encounter - Lauren Berrios RN - 05/17/2024 2:27 PM EDT Faxed last 2 office visit notes to pt's insurance appeals department at [phone] for approval of his CTE. Await response. Lauren Berrios RN May 17, 2024 2:28 PM [facility]06-17-2024 Miscellaneous Notes* Telephone Encounter - Lauren Berrios RN - 05/17/2024 2:27 PM EDT Faxed last 2 office visit notes to pt's insurance appeals department at [phone] for approval of his CTE. Await response. Lauren Berrios RN May 17, 2024 2:28 PM * Telephone Encounter - Jessica Quinn - 05/10/2024 11:02 AM EDT Pt called and has CT scheduled in [place] on 05/13. He stated that CT was denied due to being pelvic scan? He states not pelvic. Looks like it is in a peer to peer. Pt would like a call with update. Jessica Quinn Shake Splitter documented in this encounterGenesis Hospital06-14-2024 Instructions* Patient Instructions* Reyna Anton APRN.SLAG MIXER - 05/14/2024 11:39 AM EDT Blood work [...] with same day fibroscan documented in this encounterGenesis Hospital06-14-2024 NoteUniversity Hospitals Parma Medical Center06-14-2024 History of Present illness Narrative* Reyna Anton APRN.LIZET - 05/14/2024 11:18 AM EDT NAME: Angelita Momin CLINIC NO: [id number] REFERRING PHYSICIAN: Self PRESENTING COMPLAINT: follow up [...] with transition point at the [facility] -NPO -IVF -pain control -Phenergen for n/v-for [...] Mediterranean diet PLAN - MONA BLOOD - [id number] - CERULOPLASMIN - CERULOPLASMIN - SMOOTH MUSCLE [...] 14, 2024 11:18 AM documented in this encounterGenesis Hospital06-14-2024 NoteUniversity Hospitals Parma Medical Center06-14-2024 History of Present illness Narrative* Rusty Lopez [...] adhesions. No therapy since. Recent eval in [place] showed mild recurrence, hepatitis B and C. [...] vomiting with acid reflux. Pt is seeing tacker off today. Physical Examination: General Appearance: alert, oriented [...] Date: May 14, 2024 documented in this encounterGenesis Hospital06-10-2024 Telephone encounter Note * Telephone Encounter - Jessica Quinn - 05/10/2024 11:02 AM EDT Pt called and has CT scheduled [place] Point on 05/13. He stated that CT was denied due to being pelvic scan? He states not pelvic. Looks like it is in a peer to peer. Pt would like a call with update. Jessica Quinn [employer] [facility]10-30[facility]2023 NoteUniversity [facility]als [facility]10-30-2023 History of Present illness Narrative* Rusty Lopez MD - 09/29/2023 12:00 PM EDT Virtual visit, 20 minutes, pt agreed Telephone encounter, minutes, patient agrees I have communicated my name and active licensure. The patient's identity and physical location wereverified at the time of this visit. Either the patient or their legal customer solutions representative has been informed of the risks and benefits of -- and alternatives to -- treatment through a remote evaluation andconsents to proceed with the evaluation remotely. 33 yo with Crohn's disease, s/p subtotal colectomy with ileoanal anastomosis in 2014, complicated by SBO due to adhesions. No therapy since. [place] showed mild recurrence, hepatitis B and C. [...] Rusty Lopez MD, MPH documented in this encounterGenesis Hospital10-18-2023 NoteUniversity Hospitals Parma Medical Center10-18-2023 History of Present illness Narrative* Hilda Munoz [...] Int J Clin Exp Med. 2015 Aug 15;8(10):74896-53.PMID: [id number]; PMCID: [id number]. Ariel Spencer, Desirae BURRIS, Lester M, Yasmine F, Val J, Zakia O, Gay F, Alli Spencer, Kyle G, Ugo Pablo, Fer E, Carlito L, Mary G, Dionne A, Shivam U, Julio S, Jenaro, Nargis V, Artis V, Lea M, Anselmo JONES. Refining the Baveno elastography criteria for the definition of compensated advanced chronic liver disease. J Hepatol. 2020;74(5):5757-9546. doi: 10.1016/j.jhep.2020.11.050. Epub 2019Nov 08. PMID: [id number]. documented in this encounterGenesis Hospital10-18-2023 Instructions* Patient Instructions* Reyna Anton APRN.LIZET [...] up in 6 months documented in this encounterGenesis Hospital10-18-2023 History of Present illness Narrative* Reyna [...] transfusion Pneumonia 03/21/2010 SBO (small bowel obstruction) ([facility]) 11/06/2015 - CT : bowl obstruction with transition point at the [facility] -NPO -IVF -pain control -[place]hen[place] for n/v-for [...] Follow up in 6 months Reyna Anton APRN.SLAG MIXER documented in this encounterGenesis Hospital10-18-2023 NoteUniversity Hospitals Parma Medical Center10-16-2023 Miscellaneous Notes* Telephone Encounter - Lea Lancaster [...] Friday. Piter Meneses DO documented in this encounterGenesis Hospital10-13-2023 NoteUniversity Hospitals Parma Medical Center10-13-2023 History of Present illness Narrative* Piter Meneses [...] lyrica. [place] who prescribes these medications. He thought today's [...] Social History reviewed with patient and in [facility] Medications and Allergies reviewed with patient and in [facility] BP 150/82 Pulse 87 Wt 111.1 [...] GI - CONSULT TO GASTROENTEROLOGY - RASHIDA ABRAMS - C-REACTIVE PROTEIN (CRP) 2. Chronic hepatitis [...] RIGHT UPPER QUADRANT F/u with PCP in [place]. If he wishes to transfer primary care to [facility] I welcomed him to schedule with me but for now he will continue filling his controlled substance prescriptions through his prior PCP Piter Meneses DO September 12, 2023 10:06 AM This note was partially generated using [employer] voice recognition system, and there may be some incorrect words, spellings, and punctuation that were not noted in checking the note before saving. . documented in this encounterGenesis Hospital12-02-2022 NotePROCEDURE: XR FOOT RT MIN 3 VIEWS COMPARISON: None. HISTORY: Pain FINDINGS: BONES:No fracture, acute abnormality, or significant arthropathy. SOFT TISSUES:Negative. No visible soft tissue swelling. EFFUSION:None visible. OTHER: Negative. IMPRESSION: No acute disease. Electronically authenticated by: ADOLFO PERALTA Date: 2022-11-01 10:49[facility]05-20-2022 NoteEducation Materials Orthopedics Metacarpal Fracture A [...] This may take several hours. ? Take ddel-jaq-cbejwpt and prescription medicines only as told by [...] ? You have redness (more content not included)...[facility] [id number] Evaluation note* Encounter Date Diagnosis Assessment Notes [...] return to work 03/04/22 with no restriction. [employer] Other 02-10-2022 Evaluation note* Encounter Date Diagnosis [...] Patient states this is getting transferred to [facility]. [employer] Other 01-12-2022 NotePROCEDURE: XR KNEE RT 4V or > HISTORY: Pain ; acute medial knee pain COMPARISON: None. FINDINGS: BONES:No fracture, acute abnormality, or significant arthropathy. SOFT TISSUES:No visible soft tissue swelling. EFFUSION:None visible. OTHER: Negative. IMPRESSION: 1. No acute bone abnormality or significant degenerative changes. Electronically authenticated by: LUCY Troy: 2021-12-12 15:48[facility]10-14-2021 Evaluation note* Encounter Date Diagnosis Assessment [...] futher treatment.To call with questions or concerns. [employer] Other 08-15-2021 History of Past illness Narrative* Problem Noted DateDiagnosed DateResolved DateCrohn's disease, acute07/15/2021 09/12/2023Severe lwawzidpwhk56SBO (small bowel obstruction) Overview: - CT : bowl obstruction with transition point at the [facility] -NPO -IVF -pain control -Phenergen for n/v -for flex sig -f/u CORS [id number] Overview: 25 year old male with a history of Crohn's presents with SBO Aetiology : fibrinous vs inflammatory Generalized painSyncope Overview: DD includes Vasovagal syncope related to pain Plan Telemetry Echo Pain control Utox Loose aqmpcu54 Overview: Consider Small Bowel Overgrowth given refractory [...] US KUB Remaining plan per loose stool Xzwtbojhm563documented as of this encounter (statuses as of 09/12/2023) [facility]08-15-[facility] History of Past illness Narrative* ProblemNoted Date Diagnosed DateResolved DateCrohn's disease, acute/Severe hiegqplpqup42SBO (small bowel obstruction)11/06/2015 09/12/2023 Overview: - CT : bowl obstruction with transition point at the [facility] -NPO -IVF -pain control -Phenergen for n/v -for flex sig -f/u CORS [id number] Overview: 25 year old male with a history of Crohn's presents with SBO Aetiology : fibrinous vs inflammatory Generalized painSyncope Overview: DD includes Vasovagal syncope related to pain Plan Telemetry Echo Pain control Utox Loose zrusev52 Overview: Consider Small Bowel Overgrowth given refractory [...] US KUB Remaining plan per loose stool Nldimvzju613documented as of this encounter (statuses as of 09/15/2023) [facility] History of Past illness Narrative* ProblemNoted Date Diagnosed DateResolved DateCrohn's disease, acuteSevere vrjoeyffesq23SBO (small bowel obstruction)11/06/2015 09/12/2023 Overview: - CT : bowl obstruction with transition point at the [facility] -NPO -IVF -pain control -Phenergen for n/v -for flex sig -f/u CORS [id number] Overview: 25 year old male with a [...] US KUB Remaining plan per loose stool Byqecpjxv723documented as of this encounter (statuses as of 09/17/2023) [facility]08-15-[facility] History of Past illness Narrative* ProblemNoted Date Diagnosed DateResolved DateCrohn's disease, acuteSevere jsinujctpzf63SBO (small bowel obstruction)11/06/2015 09/12/2023 Overview: - CT : bowl obstruction with transition point at the [facility] -NPO -IVF -pain control -Phenergen for n/v -for flex sig -f/u CORS [id number] Overview: 25 year old male with a history of Crohn's presents with SBO Aetiology : fibrinous vs inflammatory Generalized painSyncope Overview: DD includes Vasovagal syncope related to pain Plan Telemetry Echo Pain control Utox Loose elptpu52 Overview: Consider Small Bowel Overgrowth given refractory [...] US KUB Remaining plan per loose stool Xvdyjefin243documented as of this encounter (statuses as of 09/18/2023) [facility] History of Past illness Narrative* ProblemNoted Date Diagnosed DateResolved DateCrohn's disease, acute/Severe ijxspwomilw82SBO (small bowel obstruction)11/06/2015 09/12/2023 Overview: - CT : bowl obstruction with transition point at the [facility] -NPO -IVF -pain control -Phenergen for n/v -for flex sig -f/u CORS [id number] Overview: 25 year old male with a history of Crohn's presents with SBO Aetiology : fibrinous vs inflammatory Generalized painSyncope Overview: DD includes Vasovagal syncope related to pain Plan Telemetry Echo Pain control Utox Loose wyrwja91 Overview: Consider Small Bowel Overgrowth given refractory [...] US KUB Remaining plan per loose stool Jrlfmlmso013documented as of this encounter (statuses as of 09/29/2023) [facility]10-07-2012 History of Past illness Narrative* ProblemNoted [...] of this encounter (statuses as of 04/30/2022) [facility]* Diagnosis Hand injury, right, initial encounter- Primary documented in this encounter [facility] HospitalEvaluation noteNo InformationNort Peach Payments Other Evaluation noteNo assessment information available [facility] Work Phone: Evaluation note* Diagnosis Crohn's disease [...] obstruction or gangrene [facility] Incisional hernia, without obstruction or gangrene- Primary Incisional hernia without mention of obstruction or gangrene Obesity, Class II, BMI 35-39.9 Obesity, unspecified [facility]* Diagnosis [...] [facility]CP and GI [facility] Diagnosis Post-operative pain- Primary Other acute postoperative pain documented in this encounter [facility]* Diagnosis Encounter for medical assessment- Primary [facility] Diagnosis Post-operative pain- Primary Other acute postoperative pain [facility] Diagnosis Pre-op evaluation- Primary Preoperative [...] Abdominal pain, generalized [facility]* Diagnosis Pre-op evaluation- Primary Preoperative examination, [...] acute postoperative pain documented in this encounter [facility] general Narrative - Reported* Type Description Date Medical History Crohns disease Medical HistoryanxietyMedical HistorydepressionMedical HistorybipolarMedical Historycolon cancerMedical HistorySeizure disorderSurgical Historycolectomy Surgical HistorycolostomySurgical HistorypneumonectomySurgical Historyshoulder surgerySurgical HistorycholecystectomySurgical Historycolectomy [id number] Hospitalization Historysee above [employer] Other History general Narrative - Reported* Type Description Date Medical History Crohns disease Medical HistoryanxietyMedical HistorydepressionMedical HistorybipolarMedical Historycolon cancerMedical HistorySeizure disorderSurgical Historycolectomy Surgical HistorycolostomySurgical HistorypneumonectomySurgical Historyshoulder surgerySurgical HistorycholecystectomySurgical Historycolectomy [id number] Surgical Historyright knee arthroscopy with partial medial menisectemy Hospitalization Historysee above [employer] Other Hospital Discharge instructions Additional Instructions Quarantine per CDC guidelines Increase oral fluids Tylenol or Motrin for fever pain body aches May take pftp-mog-ehsmguj cough and cold medication as needed Return to the ER for respiratory distress vomiting severe chest pain or any other concernsMer[facility] Work Phone: Reason for referral (narrative)* Diagnostic Procedure Only (Routine) - Pending ReviewSpecialtyDiagnoses / ProceduresReferred By ContactReferred To ContactXR IMAGING Diagnoses Hand injury, right, initial encounter Procedures XR HAND GENERAL 3V PA/LAT/OBL RIGHT RADEX HAND MINIMUM 3 VIEWS Fernie Hollingsworth, [address] [place] [address] Xr Imaging Referral IDStatusReasonStart DateExpiration DateVisits RequestedVisits [id number] Review Auto-Generated Referral / [facility] for referral (narrative)* Diagnostic Procedure Only (Routine) - Pending ReviewSpecialtyDiagnoses / ProceduresReferred By Contact Referred To ContactUS IMAGING Diagnoses Chronic hepatitis C without hepatic coma (HCC) Procedures US ABD RIGHT UPPER QUADRANT US ABDOMINAL REAL TIME W/[place] [address] [place] [address] [place] [address] Referral IDStatusReasonStart DateExpiration DateVisits RequestedVisits [id number] Review Auto-Generated Referral / * Consult, Test, Treat (Routine) - AuthorizedSpecialtyDiagnoses / Procedures Referred By ContactReferred To ContactGastroenterology Diagnoses Chronic hepatitis C without hepatic coma (HCC) Crohn's disease of small intestine with other complication (HCC) Procedures CONSULT TO GASTROENTEROLOGY OFFICE/OUTPATIENT NEW HIGH MDM 60-[place] [address] [place] [address] Referral IDStatusReasonStart DateExpiration DateVisits RequestedVisits [id number] PCP Requested Referral / [facility] for referral (narrative)* Outpatient Procedure (Routine) - ClosedSpecialtyDiagnoses / ProceduresReferred By ContactReferred To Contact [facility] Diagnoses Chronic hepatitis C without hepatic coma (HCC) Elevated liver enzymes Procedures DDI VIBRATION CONTROLLED TRANSIENT ELASTOGRAPHY (VCTE) LIVER ELASTOGRAPHY W/O IMAG W/I&R Reyna Anton, KATHIA.SLAG MIXER [address] [place] [address] [place] [address] Referral IDStatusReasonStart DateExpiration DateVisits RequestedVisits [id number] Auto-Generated Referral * Consult, Test, Treat (Routine) - AuthorizedSpecialtyDiagnoses / Procedures Referred By ContactReferred To [facility]oses Crohn's disease of small intestine with other complication (HCC) Procedures CONSULT TO GASTROENTEROLOGY OFFICE/OUTPATIENT NEW HIGH MDM 60-74 MINUTES Reyna Anton, MACHINE ASSEMBLER.SLAG MIXER [address] [place] [address] Referral IDStatusReasonStart DateExpiration DateVisits RequestedVisits [id number] PCP Requested Referral [facility] for referral (narrative)* Outpatient Procedure (Routine) - AuthorizedSpecialtyDiagnoses / ProceduresReferred By ContactReferred To [facility] Diagnoses Elevated liver enzymes Fatty liver Procedures DDI VIBRATION CONTROLLED TRANSIENT ELASTOGRAPHY (VCTE) LIVER ELASTOGRAPHY W/O IMAG W/I&R Reyna Anton, MACHINE ASSEMBLER.SLAG MIXER [address] [place] [address] [place] [phone] Referral IDStatusReasonStart DateExpiration DateVisits RequestedVisits [id number] Auto-Generated Referral * Consult, Test, Treat (Routine) - AuthorizedSpecialtyDiagnoses / Procedures Referred By ContactReferred To ContactGeneral Surgery Diagnoses Hernia Procedures CONSULT TO GENERAL SURGERY OFFICE/OUTPATIENT [facility] MDM 60 MINUTES Reyna Anton APRN.CNP [address] [place] [phone] Referral IDStatusReasonStart DateExpiration DateVisits RequestedVisits [id number] PCP Requested Referral / [facility] HospitalReason for [facility] Narrative* Outpatient Procedure (Routine) - ClosedSpecialtyDiagnoses / ProceduresReferred By ContactReferred To Contact [facility] Diagnoses Chronic hepatitis C without hepatic coma (HCC) Elevated liver enzymes Procedures DDI VIBRATION CONTROLLED TRANSIENT ELASTOGRAPHY (VCTE) LIVER ELASTOGRAPHY W/O IMAG W/I&R Reyna Anton APRN.LIZET [address] [place] [phone] [facility] [address] [place] [phone] Referral IDStatusReasonStart DateExpiration DateVisits RequestedVisits [id number] Auto-Generated Referral [facility] Instructions * Patient Instructions - Adolfo [...] heating pad on your skin. Take an pase-zrt-dgoyjon pain medicine, such as acetaminophen (Tylenol), ibuprofen [...] Log into your personal health record on [email or web address] and enter C927 in the Education box to learn more about Earache: Care Instructions. Current as of: April 11, 2017 Content Version: 11.6 [id number] [employer]unct. Care instructions adapted under license by your healthcare professional. If you have questions about a medical condition or this instruction, always ask your healthcare professional. [employer] disclaims any warranty or liability for your [...] EVALUATION HIGH COMPLEX 45 MINS Lena Walters, MACHINE ASSEMBLER.SLAG MIXER [address] [place] [address] [facility] [place] [address] [place] [address] Referral IDStatusReasonStart DateExpiration DateVisits RequestedVisits [id number] Review Auto-Generated Referral /[id number] / ProceduresReferred By ContactReferred To Contact Diagnoses Preoperative examination Ventral hernia without obstruction or gangrene Procedures REFER TO PACC / [facility] - PREOPERATIVE OPTIMIZATION OFFICE/OUTPATIENT [facility] 60 MINUTES Renee Pearce, MACHINE ASSEMBLER.SLAG MIXER [address] [place], [place] [phone] Referral IDStatusReasonStart DateExpiration DateVisits RequestedVisits [id number] PCP Requested Referral /[id number] / ProceduresReferred By ContactReferred To ContactWH[facility] Diagnoses Preoperative examination Ventral hernia without obstruction or gangrene Procedures ECG COMPLETE ECG ROUTINE ECG W/LEAST 12 LDS W/I&R Renee Pearce, MACHINE ASSEMBLER.SLAG MIXER [address] [place], [place] [phone] [facility] [place] [address] [place] [address] Referral IDStatusReasonStart DateExpiration DateVisits RequestedVisits [id number] Review Auto-Generated Referral /[id number] / ProceduresReferred By ContactReferred To Contact Diagnoses Preoperative examination Ventral hernia without obstruction or gangrene Procedures CONSULT TO [facility] OFFICE/OUTPATIENT [facility] 60 MINUTES Renee Pearce, MACHINE ASSEMBLER.SLAG MIXER [address] [place], [place] [phone] Referral IDStatusReasonStart DateExpiration DateVisits RequestedVisits [id number] PCP Requested Referral /[id number] / ProceduresReferred By ContactReferred To ContactCT IMAGING Diagnoses Crohn's disease of small and large intestines with complication (HCC) Procedures CT ENTEROGRAPHY W IVCON CT ABD & PELVIS W/CONTRAST Rusty Lopez MD [address] [place] [address] [address] [facility] [place] [address] Referral IDStatusReasonStart DateExpiration DateVisits RequestedVisits [id number] Review Auto-Generated Referral Additional Source Comments ED [...] different from the original. ED PROVIDER NOTE [facility] NAME: Angelita Momin AGE: 27 y.o. : 1990 VISIT DATE: 11/21/2017 CSN: [id number] PCP: Physician No Chief Complaint Patient presents [...] suicidal, homicidal ideation. 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 [...] section and content) DATE CREATED AUTHOR 05/17/2018 [facility] DATE CREATED AUTHOR AUTHOR'S ORGANIZ ATION 09/05/2019 [facility] DATE CREATED AUTHOR AUTHOR'S ORGANIZ ATION 09/05/2019 [facility] DATE CREATED AUTHOR AUTHOR'S ORGANIZ ATION 03/13/2021 [facility] DATE CREATED AUTHOR AUTHOR'S ORGANIZ ATION 04/27/2022 [facility] DATE CREATED AUTHOR AUTHOR'S ORGANIZ ATION 11/03/2022 [facility] DATE CREATED AUTHOR AUTHOR'S ORGANIZ ATION 09/14/2023 [facility] DATE CREATED AUTHOR AUTHOR'S ORGANIZ ATION 02/02/2024 [facility] DATE CREATED AUTHOR AUTHOR'S ORGANIZ ATION 04/11/2024 [facility] DATE CREATED AUTHOR AUTHOR'S ORGANIZ ATION 07/19/2024 [facility] DATE CREATED AUTHOR AUTHOR'S ORGANIZ ATION 08/15/2024 [facility] Source Comments (unrecognize d section and content) In the event this informatio n is protected by the Federal Confidentiality of Alcohol and Drug Abuse Patient Records regulations: The Federal rules restrict any use of the information to criminally investigate or prosecute any alcohol or drug abuse patient.Gen[facility] HospitalIn the event this information is protected by the Federal Confidentiality of Alcohol and Drug Abuse Patient Records regulations: The Federal rules restrict any use of the information to criminally investigate or prosecute any alcohol or drug abuse patient.Gen[facility] HospitalIn the event this information is protected by the Federal Confidentiality of Alcohol and Drug Abuse Patient Records regulations: The Federal rules restrict any use of the information to criminally investigate or prosecute any alcohol or drug abuse patient.Genesis HospitalIn the event this information is protected by the Federal Confidentiality of Alcohol and Drug Abuse Patient Records regulations: The Federal rules restrict any use of the information to criminally investigate or prosecute any alcohol or drug abuse patient.Genesis HospitalIn the event this information is protected by the Federal Confidentiality of Alcohol and Drug Abuse Patient Records regulations: The Federal rules restrict any use of the information to criminally investigate or prosecute any alcohol or drug abuse patient.Genesis HospitalIn the event this information is protected by the Federal Confidentiality of Alcohol and Drug Abuse Patient Records regulations: The Federal rules restrict any use of the information to criminally investigate or prosecute any alcohol or drug abuse patient.Gen[facility] HospitalIn the event this information is protected by the Federal Confidentiality of Alcohol and Drug Abuse Patient Records regulations: The Federal rules restrict any use of the information to criminally investigate or prosecute any alcohol or drug abuse patient.Gen[facility] HospitalIn the event this information is protected by the Federal Confidentiality of Alcohol and Drug Abuse Patient Records regulations: The Federal rules restrict any use of the information to criminally investigate or prosecute any alcohol or drug abuse patient.Gen[facility] HospitalIn the event this information is protected by the Federal Confidentiality of Alcohol and Drug Abuse Patient Records regulations: The Federal rules restrict any use of the information to criminally investigate or prosecute any alcohol or drug abuse patient.Gen[facility] HospitalIn the event this information is protected by the Federal Confidentiality of Alcohol and Drug Abuse Patient Records regulations: The Federal rules restrict any use of the information to criminally investigate or prosecute any alcohol or drug abuse patient.Gen[facility] HospitalIn the event this information is protected by the Federal Confidentiality of Alcohol and Drug Abuse Patient Records regulations: The Federal rules restrict any use of the information to criminally investigate or prosecute any alcohol or drug abuse patient.Gen[facility] HospitalIn the event this information is protected by the Federal Confidentiality of Alcohol and Drug Abuse Patient Records regulations: The Federal rules restrict any use of the information to criminally investigate or prosecute any alcohol or drug abuse patient.Gen[facility] HospitalIn the event this information is protected by the Federal Confidentiality of Alcohol and Drug Abuse Patient Records regulations: The Federal rules restrict any use of the information to criminally investigate or prosecute any alcohol or drug abuse patient.Genesis HospitalIn the event this information is protected by the Federal Confidentiality of Alcohol and Drug Abuse Patient Records regulations: The Federal rules restrict any use of the information to criminally investigate or prosecute any alcohol or drug abuse patient.[facility]esis HospitalIn the event this information is protected by the Federal Confidentiality of Alcohol and Drug Abuse Patient Records regulations: The Federal rules restrict any use of the information to criminally investigate or prosecute any alcohol or drug abuse patient.[facility] HospitalIn the event this information is protected by the Federal Confidentiality of Alcohol and Drug Abuse Patient Records regulations: The Federal rules restrict any use of the information to criminally investigate or prosecute any alcohol or drug abuse patient.[facility] HospitalIn the event this information is protected by the Federal Confidentiality of Alcohol and Drug Abuse Patient Records regulations: The Federal rules restrict any use of the information to criminally investigate or prosecute any alcohol or drug abuse patient.[facility] HospitalIn the event this information is protected by the Federal Confidentiality of Alcohol and Drug Abuse Patient Records regulations: The Federal rules restrict any use of the information to criminally investigate or prosecute any alcohol or drug abuse patient.[facility] HospitalIn the event this information is protected by the Federal Confidentiality of Alcohol and Drug Abuse Patient Records regulations: The Federal rules restrict any use of the information to criminally investigate or prosecute any alcohol or drug abuse patient.[facility] HospitalIn the event this information is protected by the Federal Confidentiality of Alcohol and Drug Abuse Patient Records regulations: The Federal rules restrict any use of the information to criminally investigate or prosecute any alcohol or drug abuse patient.[facility] HospitalIn the event this information is protected by the Federal Confidentiality of Alcohol and Drug Abuse Patient Records regulations: The Federal rules restrict any use of the information to criminally investigate or prosecute any alcohol or drug abuse patient.[facility] HospitalIn the event this information is protected by the Federal Confidentiality of Alcohol and Drug Abuse Patient Records regulations: The Federal rules restrict any use of the information to criminally investigate or prosecute any alcohol or drug abuse patient.[facility] HospitalIn the event this information is protected by the Federal Confidentiality of Alcohol and Drug Abuse Patient Records regulations: The Federal rules restrict any use of the information to criminally investigate or prosecute any alcohol or drug abuse patient.[facility] HospitalIn the event this information is protected by the Federal Confidentiality of Alcohol and Drug Abuse Patient Records regulations: The Federal rules restrict any use of the information to criminally investigate or prosecute any alcohol or drug abuse patient.[facility] HospitalIn the event this information is protected by the Federal Confidentiality of Alcohol and Drug Abuse Patient Records regulations: The Federal rules restrict any use of the information to criminally investigate or prosecute any alcohol or drug abuse patient.[facility] HospitalIn the event this information is protected by the Federal Confidentiality of Alcohol and Drug Abuse Patient Records regulations: The Federal rules restrict any use of the information to criminally investigate or prosecute any alcohol or drug abuse patient.[facility] Care Teams (unrecognized sec tion and content) Team Status: Active Member Role Status Dates Chetan RonquilloFIRSTHEALTHMD Bailey Primary Care Provider Bev ctalex Team Status: Inactive Member Role Status Dates Chetan Rojas ([facility] Primary Care Provider Active Start: January 222023 End: January 22Nelida Choi ProviderActiveStart: January 22, 2024 End: January 22, 2024Team MemberRelationshipSpecialtyStart DateEnd Date Wil Goetz PCP - GeneralFamily Practice5/4/17 Team Status: Inactive Member Role Status Dates Chetan Rojas ([facility]) MD Primary Care Provider A ctIVON Renteria-BCEmergency ProviderActiveTeam MemberRelationship SpecialtyStart DateEnd Date Wil Goetz [address] [facility] [place] [address] PCP - GeneralFamily Mcpivesp33/13/23Team MemberRelationshipSpecialtyStart Date End Date BárbaraWil moore [address] [facility] [place] [address] PCP - GeneralFamily Dwlkshuh02/13/23Team MemberRelationshipSpecialtyStart Date End Date BárbaraWil moore [address] [facility] [place] [address] PCP - GeneralFamily Uueitojc78/13/23Team MemberRelationshipSpecialtyStart Date End Date BárbaraWil moore [address] [facility] [place] [address] PCP - GeneralFamily Nyvomsrn40/13/23Team MemberRelationshipSpecialtyStart Date End Date BárbaraWil moore [address] [facility] [place] [address] PCP - GeneralFamily Ayxkdtyc88/13/23Team MemberRelationshipSpecialtyStart Date End Date BárbaraWil moore [address] [facility] [place] [address] PCP - GeneralFamily Ymifwwhg03/13/23Team MemberRelationshipSpecialtyStart Date End Date BishnuWil [address] [facility] [place] [address] PCP - GeneralFamily Drajxsvt03/13/23Team MemberRelationshipSpecialtyStart Date End Date Wil Goetz [address] [facility] [place] [address] PCP - GeneralFamily Fldpbkcs06/13/23Team MemberRelationshipSpecialtyStart Date End Date Wil Goetz [address] [facility] [place] [address] PCP - GeneralFamily Emnvwiva47/13/23Team MemberRelationshipSpecialtyStart Date End Date Wil Goetz [address] [place] [address] PCP - GeneralFamily Uohdshgy03/13/23Team MemberRelationshipSpecialtyStart Date End Date Wil Goetz [address] [facility] [place] [address] PCP - GeneralFamily Jmfswamd91/13/23Team MemberRelationshipSpecialtyStart Date End Date Wil Goetz [address] [place] [address] PCP - GeneralFamily Nnumpskv91/13/23Team MemberRelationshipSpecialtyStart Date End Date Chetan Rojas MD [facility] [facility] [address] [address] PCP - GeneralFamily Medicine06/08/24Team MemberRelationshipSpecialtyStart DateEnd Date Wil Goetz [address] [place] [address] PCP - GeneralFamily Gzqphfdl89/13/237Team MemberRelationshipSpecialtyStart DateEnd Date Chetan Rojas MD [address] [place] [address] PCP - GeneralFamily Medicine06/08/24Team MemberRelationshipSpecialtyStart DateEnd Date Wil Goetz [address] [place] [address] PCP - GeneralFamily Ptcklmsv10/13/237 Chetan Rojas MD [address] [place] [address] PCP - GeneralFamily Medicine06/08/24Team MemberRelationshipSpecialtyStart DateEnd Date Chetan Rojas MD [address] [place] [address] PCP - GeneralFamily Medicine06/08/24Team MemberRelationshipSpecialtyStart DateEnd Date Chetan Rojas MD [address] [place] [address] PCP - GeneralFamily Medicine06/08/24Team MemberRelationshipSpecialtyStart DateEnd Date Chetan Rojas MD [address] [place] [address] PCP - GeneralFamily Medicine06/08/24Team MemberRelationshipSpecialtyStart DateEnd Date Chetan Rojas MD [address] [place], [place] [id number] PCP - [facility] Medicine06/08/24Team MemberRelationshipSpecialtyStart DateEnd Date Chetan Rojas MD [address] [place] [address] PCP - [facility]06/08/24Te MemberRelationshipSpecialtyStart DateEnd Date Chetan Rojas MD [address] [place] [id number] PCP - [facility]06/08/24Te MemberRelationshipSpecialtyStart DateEnd Date Chetan Rojas MD [address] [place] [id number] PCP - [facility]06/08/24 REASON FOR VISIT (unrecogniz ed [...] complication (HCC) Procedures CONSULT TO GASTROENTEROLOGY OFFICE/OUTPATIENT [facility] 60-[place] [address] [place] [address] Referral IDStatusReasonStart DateExpiration DateVisits RequestedVisits [id number] PCP Requested Referral [id number]qzwwuQymvqpamo / Procedures Referred By ContactReferred To ContactGastroenterology Diagnoses Crohn's disease of small intestine with other complication (HCC) Procedures CONSULT TO GASTROENTEROLOGY OFFICE/OUTPATIENT [facility] 60-74 MINUTES Reyna Anton APRN.[employer] M[employer]ER [address] [place] [address] Referral IDStatusReasonStart DateExpiration DateVisits RequestedVisits [id number] PCP Requested Referral [id number] PatientCrohnsReasonComments Established PatientChronic Hep C Follow UpReasonCommentsOrdersCare Coordinator - OtherReasonCommentsRadiology CTSpecialtyDiagnoses / ProceduresReferred By ContactReferred To ContactCT IMAGING Diagnoses Crohn's disease of small and large intestines with complication (HCC) Procedures CT ENTEROGRAPHY W IVCON CT ABD & PELVIS W/CONTRAST Rusty Lopez MD [address] [place] [address] Ct Imaging [place] [address] Referral IDStatusReasonStart DateExpiration DateVisits RequestedVisits [id number] Auto-Generated Referral Clearance Not Met - Admin/Freight Associate/Director Advise to Postpone/Reschedule or Not Proceed /[id number] CTSpecialtyDiagnoses / Procedures Referred By ContactReferred To ContactRadiology / RADIO CT SCAN [employer] Diagnoses Crohn's disease of both small and large intestine with complication (HCC) Procedures CT ABD & PELVIS W/CONTRAST CT ENTEROGRAPHY PREP Rusty Lopez MD [address] [place] [address] Scan [facility] [address] [place] [address] Referral IDStatusReasonStart DateExpiration DateVisits RequestedVisits [id number] Patient Cleared - Admin/Freight Associate/Director advise to proceed or did not respond [id number] CureOpen VHR 3 hours los 2Reason CommentsConsultReasonCommentsCrohnsReasonCommentsHerniaSpecialtyDiagnoses / ProceduresReferred By ContactReferred To ContactGeneral Surgery Diagnoses Hernia Procedures CONSULT TO GENERAL SURGERY OFFICE/OUTPATIENT [facility] 60 MINUTES Reyna Anton, MACHINE ASSEMBLER.[employer]ER [address] [place] [id number] Referral IDStatusReasonStart DateExpiration DateVisits RequestedVisits [id number] PCP Requested Referral /[id number] / ProceduresReferred By ContactReferred To Contact Diagnoses Preoperative examination Ventral hernia without obstruction or gangrene Procedures REFER TO PACC / [facility] - PREOPERATIVE OPTIMIZATION OFFICE/OUTPATIENT [facility] 60 MINUTES Renee Pearce, MACHINE ASSEMBLER.[employer] M[employer]ER [address] [place] [id number] Referral IDStatusReasonStart DateExpiration DateVisits RequestedVisits [id number] PCP Requested Referral /[id number] In UrineReasonOnset DateCommentsEscalation of Care4ReasonCommentsPainChronic pain Goals [...] BE BASED ON THE PRIMARY CLINICAL RECORDS. [email or web address] [facility]. provides no warranty or guarantee of the accuracy or completeness of information in this document.
--- NOTE | 2025-09-28 08:41 | ED.GENADUL1 ---
HPI HPI - General Adult General Chief complaint: Abdominal Pain Stated complaint: abdominal pain, vomiting Time Seen by Provider: 09/28/25 08:37 History of Present Illness HPI narrative: 35-year-old male presents for 3-day history of vomiting and diarrhea. No hematemesis or hematochezia. No family members have been ill. He has not had a fever. He has a history of Crohn's disease and last had a colostomy about 10 years ago. Related Data Home Medications ?Medication ?Instructions ?Recorded ?Confirmed albuterol sulfate 90 mcg/actuation 1 puff inhalation Q4H PRN 06/06/23 06/06/23 aerosol inhaler (Ventolin HFA) shortness of breath or wheezing alprazolam 0.5 mg tablet 1 mg PO QID 06/06/23 01/22/24 buprenorphine 8 mg-naloxone 2 mg 2 film sublingual DAILY 06/06/23 01/22/24 sublingual film dextroamphetamine-amphetamine 15 15 mg PO DAILY 06/06/23 01/22/24 mg tablet dextroamphetamine-amphetamine ER 25 mg PO DAILY 06/06/23 01/22/24 25 mg 24hr capsule,extend release dronabinol 5 mg capsule 5 mg PO DAILY 06/06/23 01/22/24 pregabalin 200 mg capsule 200 mg PO Q8H 06/06/23 01/22/24 Previous Rx's ?Medication ?Instructions ?Recorded clindamycin HCl 150 mg capsule 450 mg (3 x 150 mg) PO TID 7 days 06/06/23 #63 caps ibuprofen 800 mg tablet 800 mg PO Q8H PRN pain #20 tabs 09/21/25 methocarbamol 750 mg tablet 750 mg PO Q6H PRN pain #20 tabs 09/21/25 ondansetron 4 mg disintegrating 4 mg PO Q6H PRN nausea and 09/28/25 tablet vomiting #20 tabs Allergies Allergy/AdvReac Type Severity Reaction Status Date / Time No Known Drug Allergies Allergy Verified 09/28/25 08:31 Opioid HPI Opioid Management Most Recent Opioid Data: Last Pain Scale 7 09/21/25, 11:25 Last MAR Pain Assessment 09/21/25, 11:25 Review of Systems ROS Narrative A ten point review of systems is negative except as noted above. PFSH PFSH Social History Smoking status: Current every day smoker Little interest or pleasure in doing things: not at all Feeling down, depressed, or hopeless: not at all Exam Narrative Exam Narrative: Nurses note and vital signs reviewed General:The patient appears well and in no apparent distress.Patient is resting comfortably on cart. Skin:Warm, dry, no pallor noted.There is no rash noted. Head:Normocephalic, atraumatic Eye: Normal conjunctiva, no drainage Ears, Nose, Mouth, and Throat: oral mucosa is moist. Nares patent. Cardiovascular:Regular Rate and Rhythm Respiratory:Patient is in no distress, no accessory muscle use, lungs are clear to auscultation, no wheezing, rales or rhonchi Back:non-tender GI: Soft and nondistended. No apparent tenderness on palpation. Musculoskeletal: The patient has no evidence of calf tenderness, no pitting edema, symmetrical pulses noted bilaterally Neurological:A&O, normal speech Psychiatric:Cooperative Constitutional Vital Signs, click to edit/add: Last Vital Signs Temp 97.8 F 09/28/25 08:32 Pulse 102 H 09/28/25 08:32 Resp 18 09/28/25 08:32 BP 148/100 H 09/28/25 09:12 Pulse Ox 97 09/28/25 08:32 O2 Del Method Room Air 09/28/25 08:32 Course Vital Signs Vital signs: Vital Signs Temperature 97.8 F 09/28/25 08:32 Pulse Rate 102 H 09/28/25 08:32 Respiratory Rate 18 09/28/25 08:32 Blood Pressure 161/100 H 09/28/25 08:32 Pulse Oximetry 97 09/28/25 08:32 Oxygen Delivery Method Room Air 09/28/25 08:32 Temperature 97.8 F 09/28/25 08:32 Pulse Rate 102 H 09/28/25 08:32 Respiratory Rate 18 09/28/25 08:32 Blood Pressure 148/100 H 09/28/25 09:12 Pulse Oximetry 97 09/28/25 08:32 Oxygen Delivery Method Room Air 09/28/25 08:32 Medical Decision Making Lab Data Labs: Lab Results 09/28/25 Range/Units 08:48 WBC 5.7 (4.0-11.0) 10^3/uL RBC 5.64 (4.70-6.10) 10^6/uL Hgb 15.3 (14.0-18.0) g/dL Hct 46.8 (42.0-54.0) % MCV 83.0 (80.0-94.0) fL MCH 27.1 (25.9-34.0) pg MCHC 32.7 (29.9-35.2) g/dL RDW 14.6 (11.0-15.0) % Plt Count 133 L (150-450) 10^3/uL MPV 11.3 (9.5-13.5) fL Neut % (Auto) 59.0 (43.0-75.0) % Lymph % (Auto) 25.8 (20.5-60.0) % [place] % (Auto) 7.3 (1.7-12.0) % Eos % (Auto) 5.6 (0.9-7.0) % Baso % (Auto) 1.4 (0.2-2.0) % Neut # (Auto) 3.4 (1.4-6.5) 10^3/uL Lymph # (Auto) 1.5 (1.2-3.8) 10^3/uL [place] # (Auto) 0.4 (0.3-0.8) 10^3/uL Eos # (Auto) 0.3 (0.0-0.7) 10^3/uL Baso # (Auto) 0.1 (0.0-0.1) 10^3/uL Abs Immat Gran (auto) 0.05 H (0.00-0.03) 10^3/uL Imm/Tot Granulo (auto) 0.9 H (0.0-0.5) % Sodium 137 (136-145) mmol/L Potassium 4.3 (3.5-5.1) mmol/L Chloride 103 (98-107) mmol/L Carbon Dioxide 21.2 (21.0-32.0) mmol/L Anion Gap 17.1 BUN 7.0 (7.0-18.0) mg/dL Creatinine 0.78 (0.70-1.30) mg/dL Est GFR ( Amer) >60 (>=60 mL/min/1.73m^2) Est GFR (Non-Af Amer) >60 (>=60 mL/min/1.73m^2) BUN/Creatinine Ratio 9.0 Glucose 122 H (74-106) mg/dL Calcium 9.0 (8.5-10.1) mg/dL Total Bilirubin 1.1 H (0.2-1.0) mg/dL Direct Bilirubin 0.2 (0.0-0.2) mg/dL AST 156 H (15-37) U/L ALT 188 H (16-63) U/L Alkaline Phosphatase 130 H (46-116) U/L Total Protein 7.9 (6.4-8.2) g/dL Albumin 3.8 (3.4-5.0) g/dL Globulin 4.1 g/dL Albumin/Globulin Ratio 0.9 Amylase 23 L (25-115) U/L Lipase 40.0 (16.0-77.0) U/L Discharge Plan Discharge Chief Complaint: Abdominal Pain Clinical Impression: Nausea, vomiting, and diarrhea Patient Disposition: Home, Self-Care Time of Disposition Decision: 11:05 Condition: Good Mode of Transportation: Private Vehicle Prescriptions / Home Meds: New ondansetron 4 mg tablet,disintegrating 4 mg PO Q6H PRN (Reason: nausea and vomiting) Qty: 20 0RF No Action albuterol sulfate [Ventolin HFA] 90 mcg/actuation HFA aerosol inhaler 1 puff INHALATION Q4H PRN (Reason: shortness of breath or wheezing) alprazolam 0.5 mg tablet 1 mg PO QID buprenorphine-naloxone 8-2 mg film 2 film sublingual DAILY dextroamphetamine-amphetamine 15 mg tablet 15 mg PO DAILY dextroamphetamine-amphetamine 25 mg capsule,extended release 24hr 25 mg PO DAILY Rx Instructions: HS dronabinol 5 mg capsule 5 mg PO DAILY pregabalin 200 mg capsule 200 mg PO Q8H clindamycin HCl 150 mg capsule 450 mg PO TID 7 Days Qty: 63 0RF ibuprofen 800 mg tablet 800 mg PO Q8H PRN (Reason: pain) Qty: 20 0RF methocarbamol 750 mg tablet 750 mg PO Q6H PRN (Reason: pain) Qty: 20 0RF Print Language: Yoruba Instructions: Acute Nausea and Vomiting (ED), Acute Diarrhea (ED) Referrals: CHETAN ROJAS MD [Primary Care Provider] - 1 week
[2025-09-28] MEDS: 0.9 % SODIUM CHLORIDE 1,000 ML 1000 ML IV (08:52)
[2025-09-28 08:53] LABS: Hematocrit 46.8 % (42.0-54.0); Hemoglobin 15.3 g/dL (14.0-18.0); Immature Granulocytes Abs Auto 0.05 10^3/uL (0.00-0.03); Immature Granulocytes Pct Auto 0.9 % (0.0-0.5); Lymphocytes Absolute Auto 1.5 10^3/uL (1.2-3.8); Mean Corpuscular HGB Conc 32.7 g/dL (29.9-35.2); Mean Corpuscular Hemoglobin 27.1 pg (25.9-34.0); Mean Corpuscular Volume 83.0 fL (80.0-94.0); Platelet Count 133 10^3/uL (150-450); Red Blood Count 5.64 10^6/uL (4.70-6.10); White Blood Count 5.7 10^3/uL (4.0-11.0)
[2025-09-28 09:11] LABS: Anion Gap 17.1; Blood Urea Nitrogen 7.0 mg/dL (7.0-18.0); Calcium 9.0 mg/dL (8.5-10.1); Carbon Dioxide 21.2 mmol/L (21.0-32.0); Chloride 103 mmol/L (98-107); Estimated GFR (African America >60 (>=60 mL/min/1.73m^2); Estimated GFR (Non-African Ame >60 (>=60 mL/min/1.73m^2); Glucose 122 mg/dL (74-106); Potassium 4.3 mmol/L (3.5-5.1); Sodium 137 mmol/L (136-145)
[2025-09-28 09:12] VITALS: BP 148/100
[2025-09-28 09:16] LABS: Alanine Aminotransferase 188 U/L (16-63); Albumin Globulin Ratio 0.9; Albumin Level 3.8 g/dL (3.4-5.0); Alkaline Phosphatase 130 U/L (46-116); Amylase 23 U/L (25-115); Aspartate Amino Transferase 156 U/L (15-37); Globulin 4.1 g/dL; Lipase 40.0 U/L (16.0-77.0); Total Protein 7.9 g/dL (6.4-8.2)
--- NOTE | 2025-09-28 09:16 | PC.NURSE ---
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
--- NOTE | 2025-09-28 11:04 | PC.NURSE ---
1045 - [facility] chips given
== END 2025-09-28 11:21 | disposition home or self-care (01) ==
PROVIDERS: Emergency Provider Emergency Medicine; PCP Family Medicine
DX: R11.2 Nausea with vomiting, unspecified (principal); R19.7 Diarrhea, unspecified; F17.200 Nicotine dependence, unspecified, uncomplicated; K50.90 Crohn's disease, unspecified, without complications
CPT/HCPCS: 36415; 80048; 80076; 82150; 83690; 85025; 96361; 96374; 99284; J2405

== ENCOUNTER 2025-11-04 20:07 | Emergency (ER) | payer OTHER, SELFPAY ==
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
[2025-11-04 20:11] VITALS: BP 145/99; PULSE 107; TEMP 36.8; O2SAT 98; BMI 35.3
--- NOTE | 2025-11-04 20:28 | CT_ITS ---
The [address] [address] Patient Name: ANGELITA MOMIN MRN: [id number] date: 1990 Sex: M Assigned Patient Location: ED.MAIN Current Patient Location: ED.MAIN Accession/Order Number: [id number] Exam Date: 11/04/2025 21:26 Report Date: 11/04/2025 22:03 At the request of: LORA ALVAREZ MD Procedure: CT abdomen pelvis w con CT ABDOMEN AND PELVIS WITH INTRAVENOUS CONTRAST: CLINICAL HISTORY: abdomen distension COMPARISON: None TECHNIQUE: Spiral images were obtained through the abdomen and pelvis following the administration of intravenous contrast. This CT exam was performed using one or more following dose reduction techniques: Automated exposure control, adjustment of the mA and/or kV according to patient size, or use of iterative reconstruction technique. FINDINGS: Lung Bases: [Minimal hypoventilatory changes.] Organs:Diffuse low attenuation liver suggestive infiltration. Liver measures approximately 28 cm in craniocaudal dimension. Cholecystectomy.[Splenomegaly 16 cm. Kidneys, adrenals and pancreas unremarkable. GI: Postsurgical changes partial colectomy. Anastomosis at the level of the sigmoid. No bowel obstruction.[Appendix not visualized. No mural thickening or surrounding inflammatory changes involving the bowel loops. Nonspecific. Pelvis:[Bladder wall thickening could relate to under distention. Prostate unremarkable.] Peritoneum/Retroperitoneum:No free air or free fluid.. Nonspecific portal hepatic lymph nodes noted possibly reactive. Aorta normal caliber. Abd wall/Bones:No suspicious osseous lesion. Degenerative changes with disc bulge L5-S1. CT/CT abdomen pelvis w con IMPRESSION: Negative acute inflammatory process or bowel obstruction. Hepatosplenomegaly with fatty infiltration involving the liver. Impression dictated by: Rich Oliva M.D. 11/04/2025 10:03 PM Dictation Location: [place] [address] Electronically authenticated by: [id number] Date: 11/04/2025 22:03
--- NOTE | 2025-11-04 20:33 | ED_ITS ---
HPI - Nausea/Vomiting/Diarrhea General Chief complaint: Nausea/Vomiting/Diarrhea Stated complaint: Nausea/Vomiting/Diarrhea Time Seen by Provider: 11/04/25 20:15 Source: patient Mode of arrival: walk-in History of Present Illness HPI Narrative: past history of IBD. Past surgery partial colectomy . Colostomy bag in the past. Ventral hernia repair with large ventral midline scar. Now presents complaining of abdominal pain and recurrent vomiting for the past couple of days. Neg hematemsis. Had taken repeated doses of zofran. Finally got relief from nausea with reglan. States fever at home. Neg respiratory symptoms . Hoarse voice due to repeated vomiting Related Data Home Medications ?Medication ?Instructions ?Recorded ?Confirmed albuterol sulfate 90 mcg/actuation 1 puff inhalation Q 4H PRN 06/06/23 11/04/25 aerosol inhaler (Ventolin HFA) shortness of breath or wheezing buprenorphine 8 mg-naloxone 2 mg 2 film sublingual VIKTORIA LY 06/06/23 01/22/24 sublingual film dextroamphetamine-amphetamine 15 15 mg PO DAILY 01/22/24 mg tablet dronabinol 5 mg capsule 5 mg PO DAILY 06/06/2301/22 pregabalin 200 mg capsule 200 mg PO Q8H 06/06/2311/04 alprazolam 1 mg tablet 1 mg PO BID PRN anxiety 04/2411/04/25 Previous Rx's ?Medication ?Instructions ?Recorded ondansetron 4 mg disintegrating 4 mg PO Q6H PRN nausea and 09/28/25 tablet vomiting #20 tabs Allergies Allergy/AdvReac Type Severity Reaction Status Date / Time No Known Drug Allergies Allergy Verified 09/28/25 08:31 Review of Systems ROS Status of ROS 10 or more systems reviewed and unremark able except as noted in history and below PFSH PFSH Social History Smoking status: Current every day smoker Little interest or pleasure in doing things: not at all Feeling down, depressed, or hopeless: not at all Exam Constitutional Vital Signs, click to edit/add: Last Vital Signs Temp 98.3 F 11/04/25 20:11 Pulse 95 H 11/04/25 22:34 Resp 20 11/04/25 22:34 BP 123/80 11/04/25 22:34 Pulse Ox 97 11/04/25 22:34 O2 Del Method Room Air 11/04/25 22:34 Common normals: no apparent distress, average body habitus, oriented x3, no limitations, healthy appearing, alert and well nourished [facility] Common normals: normocephalic and head/scalp atraumatic Other: oral pharynx is erythematous without swelling or exudate Eye Common normals: EOMs intact bilaterally and conjunctivae normal Respiratory Common normals: normal respiratory effort, no retractions, no use of accessory muscles and clear to auscultation bilaterally Cardio Common normals: S1 normal heart sound and S2 normal heart sound Rate: tachycardic GI Other: abdomen is distended and firm Extremity Common normals: normal to inspection and full ROM Neuro Common normals: oriented x3, CN's II-XII intact bilaterally and moves all extremities Psych Appearance: grossly normal Course Vital Signs Vital signs: Vital Signs Temperature 98.3 F 11/04/25 20:11 Pulse Rate 107 H 11/04/25 20:11 Respiratory Rate 24 H 11/04/25 20:11 Blood Pressure 145/99 H 11/04/25 20:11 Pulse Oximetry 98 11/04/25 20:11 Oxygen Delivery Method Room Air 11/04/25 20:11 Temperature 98.3 F 11/04/25 20:11 Pulse Rate 95 H 11/04/25 22:34 Respiratory Rate 20 11/04/25 22:34 Blood Pressure 123/80 11/04/25 22:34 Pulse Oximetry 97 11/04/25 22:34 Oxygen Delivery Method Room Air 11/04/25 22:34 MDM - Nausea/Vomiting/Diarrhea MDM Narrative Medical decision making narrative: presents complaining of recurrent vomiting for the past couple of days. He was taking zofran but it was not working. Finally took Reglan before coming and this has help. Does have history of heavy alcohol consumption and fatty liver. also history of IBD with partial colectomy. Abdomen distended and firm worrisome for SBO. CT without findings of SBO but did demonstrate hepatomegaly with liver size 28cm. labs with mild elevation of LFTs that has been seen in the past . UA specific gravity 1020. bun 5 and creat 0.72 patient able to drink fluids in the department and is requesting to go home. his pharynx is irritated from recurrent vomiting. Advised close follow up and also referral to GI Lab Data Labs: Lab Results 11/04/25 Range/Units 20:43 WBC 8.5 (4.0-11.0) 10^3/uL RBC 5.52 (4.70-6.10) 10^6/uL Hgb 15.4 (14.0-18.0) g/dL Hct 46.4 (42.0-54.0) % MCV 84.1 (80.0-94.0) fL MCH 27.9 (25.9-34.0) pg MCHC 33.2 (29.9-35.2) g/dL RDW 15.6 H (11.0-15.0) % Plt Count 155 (150-450) 10^3/uL MPV 11.6 (9.5-13.5) fL Neut % (Auto) 70.9 (43.0-75.0) % Lymph % (Auto) 15.8 L (20.5-60.0) % Andrew % (Auto) 8.9 (1.7-12.0) % Eos % (Auto) 2.6 (0.9-7.0) % Baso % (Auto) 0.9 (0.2-2.0) % Neut # (Auto) 6.1 (1.4-6.5) 10^3/uL Lymph # (Auto) 1.4 (1.2-3.8) 10^3/uL Andrew # (Auto) 0.8 (0.3-0.8) 10^3/uL Eos # (Auto) 0.2 (0.0-0.7) 10^3/uL Baso # (Auto) 0.1 (0.0-0.1) 10^3/uL Abs Immat Gran (auto) 0.08 H (0.00-0.03) 10^3/uL Imm/Tot Granulo (auto) 0.9 H (0.0-0.5) % Sodium 139 (136-145) mmol/L Potassium 4.0 (3.5-5.1) mmol/L Chloride 101 (98-107) mmol/L Carbon Dioxide 27.1 (21.0-32.0) mmol/L Anion Gap 14.9 BUN 5.0 L (7.0-18.0) mg/dL Creatinine 0.72 (0.70-1.30) mg/dL Est GFR ( Amer) >60 (>=60 mL/min/1.73m^2) Est GFR (Non-Af Amer) >60 (>=60 mL/min/1.73m^2) BUN/Creatinine Ratio 6.9 Glucose 123 H (74-106) mg/dL Lactate 0.8 (0.4-2.0) mmol/L Calcium 9.7 (8.5-10.1) mg/dL Total Bilirubin 1.8 H (0.2-1.0) mg/dL AST 146 H (15-37) U/L ALT 130 H (16-63) U/L Alkaline Phosphatase 168 H (46-116) U/L Troponin I High Sens 5.8 (4.0-76.1) pg/mL Total Protein 8.3 H (6.4-8.2) g/dL Albumin 3.9 (3.4-5.0) g/dL Globulin 4.4 g/dL Albumin/Globulin Ratio 0.9 Lipase 42.0 (16.0-77.0) U/L Urine Color Dk. yellow (YELLOW) Urine Clarity Clear (CLEAR) Urine pH 8.0 (5.0-9.0) Ur Specific [place] 1.020 (1.005-1.025) Urine Protein 100 A (NEG/TRACE) mg/dL Urine Glucose (UA) 100 A (NEGATIVE) mg/dL Urine Ketones 15 A (NEGATIVE) mg/dL Urine Occult Blood Negative (NEGATIVE) Urine Nitrite Negative (NEGATIVE) Urine Bilirubin Moderate A (NEGATIVE) Urine Urobilinogen 4.0 A (0.2-1.0) EU/dL Ur Leukocyte Esterase Negative (NEGATIVE) Urine RBC 0-2 (0-2) #/HPF Urine WBC 0-2 A (NONE SEEN) #/HPF Ur Squamous Epith Cells None seen (NONE/RARE) #/LPF Urine Crystals None seen (None Seen) #/HPF Urine Bacteria None seen (NONE SEEN) #/HPF Urine Casts None seen (NONE SEEN) #/LPF Urine Mucus Small A (NONE SEEN) Ur Culture Indicated? No Influenza Type A Ag Negative Influenza Type B Ag Negative SARS-CoV-2 Ag (CV2AG) Negative (NEGATIVE) Imaging Data Chest x-ray: Radiologist's impression: ITS Impressions Abdomen/Pelvis CT 11/04/25 20:28 IMPRESSION: Negative acute inflammatory process or bowel obstruction. Hepatosplenomegaly with fatty infiltration involving the liver. Impression dictated by: Rich Oliva M.D. 11/04/2025 10:03 PM Dictation Location: [place] [address] Electronically authenticated by: [id number] Y Date: 11/04/2025 22:03 Discharge Plan Discharge Chief Complaint: Nausea/Vomiting/Diarrhea Clinical Impression: Vomiting, Hepatomegaly Patient Disposition: Home, Self-Care Prescriptions / Home Meds: No Action ondansetron 4 mg tablet,disintegrating 4 mg PO Q6H PRN (Reason: nausea and vomiting) Qty: 20 0RF albuterol sulfate [Ventolin HFA] 90 mcg/actuation HFA aerosol inhaler 1 puff INHALATION Q4H PRN (Reason: shortness of breath or wheezing) buprenorphine-naloxone 8-2 mg film 2 film sublingual DAILY dextroamphetamine-amphetamine 15 mg tablet 15 mg PO DAILY dronabinol 5 mg capsule 5 mg PO DAILY pregabalin 200 mg capsule 200 mg PO Q8H alprazolam 1 mg tablet 1 mg PO BID PRN (Reason: anxiety) Print Language: Yakut Instructions: Acute Nausea and Vomiting (ED) Additional Instructions: follow up with your doctor friday and you should see specialist about your enlarged liver Referrals: CHETAN ROJAS MD [Primary Care Provider] - 1 week
[2025-11-04] MEDS: 0.9 % SODIUM CHLORIDE 1,000 ML 999 ML IV (21:18)
[2025-11-04] MEDS: FENTANYL CITRATE/PF 100 MCG/2 ML VIAL IV (21:20)
--- OUTSIDE RECORDS SUMMARY | 2025-11-04 21:20 | XMS_ITS | Clinical Summary ---
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 Name Role Phone Unavailable Primary Care Provider Unavailabl e Social History Tobacco UseTypesPacks/DayYears UsedDateSmoking Tobacco: Never AssessedSex and Gender InformationValueDate RecordedSex Assigned at BirthNot on fileLegal Sex Male02/12/2023 8:13 PM EDTGender IdentityNot on fileSexual OrientationNot on file Last Filed Vital Signs Vital SignReadingTime TakenCommentsBlood Zvwbqowj624/8208 12:00 PM EDT Pulse--Temperature--Respiratory Rate--Oxygen Saturation--Inhaled Oxygen Concentration--Zmoztc91.9 kg (176 lb 3.2 oz)07/31/2018 12:00 PM VJWFtlyvx973 cm (6' 2 )07/31/2018 12:00 PM EDTBody Mass Index22.6208 12:00 PM EDT Plan of Treatment Not on file Insurance * Guarantor: Earnest Hinton TypeRelation to PatientDate of BirthPhone Billing AddressPersonal/VqpjlkRmfv1990 [address] [address]
--- OUTSIDE RECORDS SUMMARY | 2025-11-04 21:20 | XMS_ITS | Clinical Summary ---
Author Organization [facility] Address [address] [place] [id number] Care Team Providers Care Documentation Writer Name Role Phone Dante Dan MD Primary Care Provider Allergies Active AllergyReactionsCriticalityNoted UipfVkfdaxpaBidpzhlalvbEmdc34/18/2020 MvwwrbdvyqFobwxkfq14/19/2018Propoxyphene HclRash,Swvvjci4502/05/2010 facial flushing, blurred vision Iodinated Contrast GzpdqUhjmhepbabe14/21/2024 Pt sneezes several times after CT contrast, no itching. This is not an allergic reaction, just a intolerance.Pt also has other health conditions that may also be leading to these symptoms BxdrznzqXpscs20/03/2018 Medications * This document contains information received [...] TABLET BY MOUTH EVERY DAY IN THE VZETPJD8706/22/2021ctive Pregabalin (LYRICA) 200 mg capsule Take 200 [...] CIWA protocol - multimodal pain management. Dilaudid [employer] 0/0.2/6/10. Patient utilized 19 out of 93 [...] Ketamine gtt Disposition: SICU ProblemNoted DateDiagnosed DateOpioid chisjxrcfd87/05/2024enzodiazepine withdrawal without cqcgxhlquiwx99/05/2024lcohol withdrawal syndrome without pxeakgfbjuld47/05/2024enzodiazepine ufiltjtbwt16/05/2024lcohol use disorder, moderate, szhsxrhbei22/05/2024Nicotine use disorder, F17.Incisional hernia without obstruction or hsyynzup72/31/2024ost-operative pain06/30/2024 Nicotine abuse06/29/2024 Assessment & Plan (06/29/2024 12:40 PM EDT): Assessment: current 0.5 ppd for five years ETOH abuse06/29/2024 Assessment & Plan (06/29/2024 12:41 PM EDT): Assessment: states 4-5 shots per day Denies history of DT's Obesity, Class II, BMI 35-39.9006/02/2024 Assessment & Plan (06/29/2024 12:03 PM EDT): Assessment: diet and exercise encouraged BMI 36 Clostridioides difficile hkrxvadvx46/17/2021ttention deficit hyperactivity disorder (ADHD)07/15/2021Gastroesophageal reflux iryfdzo5407/15/2021 Assessment & Plan (06/29/2024 12:02 PM EDT): Assessment: managed with med, stable Follows up with PCP and GI Opioid albaxgljch45/15/2021 Assessment & Plan (06/29/2024 12:03 PM EDT): Assessment: daily suboxone Moderate protein-calorie ghpuieqppvlt65/15/2021ipolar 1 zpyoggvm38/09/2016 Jscbxit4811/06/2015 Overview (11/06/2015): Using xanax PRN Will hold oral medication given the above presentation (can be restarted when he tolerates PO). HCV (hepatitis C virus)09/06/2012 Overview (09/06/2012): [id number] Unfavorable Genotype: C/T [id number] Unfavorable Genotype: T/G Plan Quantitative HCV LFTs INR Assessment & Plan (06/29/2024 12:39 PM EDT): Assessment: follows hepatology States resolved Abnormal ECG07/20/2012Crohn's ryhsihp9303/21/2010 Overview (11/06/2015): s/p total colectomy and iliorectal anastomosis 02/07 with h/o recurrent flares thereafter (refractory to steroids, pentasa and cholestyramine, responded to Remicade but med stopped after an episode ofgram negative sepsis) Plan F/u CORS recs Surgery vs po pred will depend if stricture is fibrous vs inflammatory S/P /21/2010 Assessment & Plan (06/29/2024 12:39 PM EDT): Assessment: s/p reversal S/P /21/2010 Resolved Problems ProblemNoted DateDiagnosed DateResolved DateMalnutrition of mild degree /rohn's disease, acute/Severe dehydration SBO (small bowel obstruction) Overview (11/06/2015): - CT : bowl obstruction with transition point at the LLQ -NPO -IVF -pain control -Phenergen for n/v -for flex sig -f/u CORS QNJHHDB70 Overview (11/06/2015): 25 year old male with a history of Crohn's presents with SBO Aetiology : fibrinous vs inflammatory Generalized painSyncope Overview (09/06/2012): DD includes Vasovagal syncope related to pain Plan Telemetry Echo Pain control Utox Loose psgxag57 Overview (09/06/2012): Consider Small Bowel Overgrowth given [...] US KUB Remaining plan per loose stool Zwdkwkofw63 Social History Tobacco UseTypesPacks/DayYears UsedDateSmoking Tobacco: Every DayCigarettes0.55 Smokeless Tobacco: Never Tobacco Cessation:Ready to Q uit: Not Asked; Counseling Given: Not Answered Alcohol UseStandard Drinks/WeekCommentsYes0 (1 standard drink = 0.6 oz pure alcohol)4-5 shots per dayAHC UtilitiesAnswerDate RecordedIn the past 12 months has the [employer] gas, oil, or water company threatened to [...] RecordedNational Score (1-100), lower number is lower cnde646212/19/2022State Score (1-10), lower number is lower riskNot on file12/19/2022ata from: https://www.neighborhoodatlas.medicine.[facility].edu/. Last address used for vvgslainnzz[address]12/19/2022Sex and Gender InformationValueDate RecordedSex Assigned at BirthNot on fileLegal NylFway04/02/2012 8:28 AM EST Gender RiwbszurFbvx81/09/2020 4:07 PM ESTSexual OrientationNot on file Last Filed Vital Signs Vital SignReadingTime TakenCommentsBlood Kzaexurz236/9107/19/2024 9:50 AM EDT Qiyuc033707/19/2024 9:50 AM RMCDovdykrbrjj47.1 ??C (96.9 ??F)07/19/2024 9:50 AM EDTRespiratory Jfaq234807/19/2024 9:50 AM EDTOxygen Eaxnkorzac06%07/08/2024 7:42 PM EDTInhaled Oxygen Concentration--Plokkc588.2 kg (265 lb)07/19/2024 9:50 AM BGYSwhmnx182 cm (6' 2 )07/19/2024 9:50 AM EDTBody Mass Index34.02007/19/2024 9:50 AM EDT Plan of Treatment Health MaintenanceDue DateLast DoneCommentsDepression Quiurgqpj71/12/2009 DTaP,Tdap,Td Vaccine (1 - Tdap)2010Hepatitis B Vaccine (1 of 3 - 19+ 3- dose series)2010Pneumococcal Vaccine (1 of 2 - PCV)2010HPV Vaccine (1 - 3-dose SCDM series)2018Covid-19 Vaccine (1 - season) 2025Influenza Vaccine (#1)2025HIV FfyavgkiqBycuqqzwp48/21/2024, 09/12/2023, 07/16/2021, Additional history existsHepatitis C ScreeningCompleted 06/29/2024, 05/21/2024, 05/21/2024, Additional history exists Medical Devices ImplantedTypeAreaManufacturerDevice IdentifierShelf Expiration DateModel / Serial / LotMesh Prolene Square Flat [id number] Surgical Knit Nonabsorbable Nonreactive - [id number] [facility]/A: AbdomenJOHNSON AND KFTEXND5401/28/2029PML / / UCBAUJ Procedures Procedure NamePriorityDate/TimeAssociated DiagnosisCommentsHIV /2 COMBO WITH REFLEX TO RDSYKSDOXTNVJSGKwrneul72/21/2024 3:13 PM EDT History of latent tuberculosis HEPATITIS C ANTIBODY IA WITH PTWIANCDNINJVvkvrfp14/21/2024 3:13 PM EDT Crohn's disease of small and large intestines with complication (HCC) from Last 3 Months or Most Recently Relevant to Health Maintenance Results * HIV 1/2 COMBO WITH REFLEX TO DIFFERENTIATION (05/21/2024 3:13 PM EDT)Component ValueRef RangeTest MethodAnalysis TimePerformed AtPathologist SignatureHIV 12 Combo (Ag/Ab)PzlwkjsybfmRtbdpiatquf57/22/2024 1:51 PM EDTCMERCY [facility] LABHIV-1/2 AB (Confirmatory)05/22/2024 1:51 PM EDTCMERCY [facility]ALTH [facility]FF[facility] LABComment:Test not indicated.HIV Wzobasvnlrgbmw72/22/2024 1:51 PM EDT [facility] LABComment: No evidence of HIV-1 or HIV-2 infection. Should recent infection be suspected, repeat testing may be considered 2-3 weeks after this draw. [place] Rev. Code 3701.243(E): This information has been [...] Dan MDLABORATORY Final ResultPerforming OrganizationAddressCity/State/ZIP CodePhone Number [facility] [address] * (ABNORMAL) HEPATITIS C ANTIBODY IA WITH CONFIRMATION (05/21/2024 3:13 PM EDT) ComponentValueRef RangeTest MethodAnalysis TimePerformed AtPathologist SignatureHep C Antibody IAPositive(A)Brchxcxe40/23/2024 12:36 PM EDTCMERCY [facility]ALTH [facility]FFIN [facility] LABSpecimen (Source)Anatomical Location / Laterality Collection Method / VolumeCollection TimeReceived TimeBloodBLOOD SPECIMEN / UnknownVenipuncture / Cfsomdi6405/21/2024 3:13 PM EDT05/21/2024 3:13 PM EDT Narrative [facility] - 05/23/2024 12:36 PM EDT Confirmation with Hepatitis C RNA has been ordered and charged. Authorizing ProviderResult TypeResult StatusBret Bev Lopez MDLABORATORYFinal ResultPerforming OrganizationAddressCity/State/ZIP CodePhone Number [facility] [address] [facility] [address] [place] [address], from Last 3 Months or Most Recently Relevant to Health Maintenance Advance Directives * Full Code (Latest Code Status on File) Date ActivatedDate InactivatedComments07/15/2021 3:11 AM07/17/2021 5:17 PMQuestion AnswerCommentsFull Code Order Discussed With:* Patient Care Teams Team MemberRelationshipSpecialtyStart DateEnd Date Dante Dan MD [facility] [place] [address] PCP - GeneralFamily Medicine06/08/24
--- OUTSIDE RECORDS SUMMARY | 2025-11-04 21:21 | XMS_ITS | CCD ---
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 part, except ear drum], initial encounter]28-29-0139GurhzftnSxlsdag dysrhythmias (1 source)Palpitations; Translations: [Palpitations]Onset: 87-98-0300Qhnxtrjx Chronic obstructive pulmonary disease and bronchiectasis (2 sources)Bronchitis; Translations: [Bronchitis, not specified as acute or chronic]36-29-0922KgpxmmqiVvpuqykrz of teeth and jaw (2 sources)Dental caries; Translations: [Dental caries, unspecified]08-10-2020 EpisodicE Codes: Struck by; against (2 sources)Striking against or struck by other objects, initial encounter; Translations: [Other cause of strike by thrown, projected or falling object, initial encounter]Onset: 35-56-5144NzfmchvjSimvommpvi disorders (20 sources)Gastroesophageal reflux disease; Translations: [Gastro-esophageal reflux disease without esophagitis]Onset: 739558-31-6829AojeiicXljkhrpxz (13 sources)Chronic hepatitis C; Translations: [Chronic viral hepatitis C]Onset: 481195-11-4406NucmbgxIwcfsfuim (2 sources)Influenza; Translations: [Influenza due to unidentified influenza virus with other respiratory manifestations]65-81-0812TjbfcqxrRjmqc disorders and dislocations; trauma-related (6 sources)Derangement of right knee; Translations: [Unspecified internal derangement of right knee]Onset: 09-13-2021 Resolved: 20-81-9583OfwrbjuDvjm disorders (20 sources)Bipolar I disorder; Translations: [Bipolar disorder, unspecified] Onset: 455366-11-0350OgsrjsxGkpxmmilgjl deficiencies (20 sources)Moderate protein energy malnutrition; Translations: [Moderate protein-calorie malnutrition]Onset: 07-15-2021 Resolved: 666501-66-2784FsxvnmmHswr wounds of extremities (2 sources)Puncture wound of toe; Translations: [Puncture wound without foreign body of unspecified toe(s) without damage to nail, initial encounter]03-24-2021 EpisodicOpen wounds of head; neck; and trunk (2 sources)Laceration - injury; Translations: [Laceration]44-36-3187Jhnhghac Other connective tissue disease (3 sources)Pain in right foot; Translations: [PAIN IN RIGHT FOOT]Onset: 71-50-7991ZxogbhwbVorxk gastrointestinal disorders (2 sources)History of Crohns disease; Translations: [Personal history of other diseases of the digestive system]05-24-4792RcyludanOzvsc gastrointestinal disorders (2 sources)Diarrhea; Translations: [Diarrhea, unspecified]53-14-6139Wgoirmcc Other injuries and conditions due to external causes (1 source)Injury of right hand; Translations: [Unspecified injury of right wrist, hand and finger(s), initialencounter]EpisodicOther injuries and conditions due to external causes (1 source)Injury of finger; Translations: [Unspecified injury of left wrist, hand and finger(s), initial encounter]37-97-0338DkvfiflyMeyfe injuries and conditions due to external causes (2 sources)Injury of toe; Translations: [Unspecified injury of unspecified foot, initial encounter]39-18-4328HyktkabdBhnhl injuries and conditions due to external causes (1 source)Injury of finger of left hand; Translations: [Unspecified injury of left wrist, hand and finger(s),initial encounter]65-79-7703HhsnzcucMgjcr liver diseases (1 source)Steatosis of liver; Translations: [Fatty (change of) liver, not elsewhere classified]21-67-2054MgruzqdPdmiz liver diseases (3 sources)Elevated liver enzymes level; Translations: [Abnormal levels of other serum enzymes]54-71-2617AzzbxzrkIzyit lower respiratory disease (2 sources)Productive cough ; Translations: [Productive cough]58-86-5215Xeupjxtf Other nervous system disorders (11 sources)Postoperative pain ; Translations: [Other acute postprocedural pain] Onset: 923604-19-7452YfkxlngoIgobj nervous system disorders (1 source)Other acute postprocedural pain; Translations: [Post-operative pain] Onset: 59-44-0345YcxnybimXuucl nutritional; endocrine; and metabolic disorders (14 sources)Obese class II; Translations: [Obesity, unspecified]Onset: 939728-83-7220XofunieBpoet upper respiratory infections (2 sources)Upper respiratory infection; Translations: [Acute upper respiratory infection, unspecified]83-12-5211XknocxarCjmntzjlj by other medications and drugs (2 sources)Poisoning by unspecified drugs, medicaments and biological substances, accidental (unintentional), initial encounter; Translations: [Polysubstance overdose]26-95-4568FxdeiavyLhogcxur enteritis and ulcerative colitis (20 sources)Crohn's disease; Translations: [Crohn's disease, unspecified, without complications]Onset: 03-21-2010 Resolved: 153569-64-2075WozutioLjmqsnqa codes; unclassified (10 sources)Harmful pattern of use of nicotine; Translations: [Tobacco use] Onset: 121936-29-7768NkayenyvXwmz and subcutaneous tissue infections (2 sources)Cellulitis and abscess of buttock; Translations: [Cutaneous abscess of buttock]87-49-5267AfheurtiUjeycfz and strains (4 sources)Strain of muscle of hip; Translations: [Strain of muscle, fascia and tendon of unspecified hip, initial encounter]96-08-6035SljcwisgQevsaxqcz-related disorders (20 sources)Opioid dependence; Translations: [Opioid dependence, uncomplicated] Onset: 253495-46-9558TuxougzTjznotrar-vfihshl disorders (16 sources)Opioid withdrawal; Translations: [Opioid use, unspecified with withdrawal]Onset: 198113-32-6057AktrapxyQyvzbehhozw injury; contusion (5 sources)Contusion of right foot, initial encounter; Translations: [Contusion of hand]Onset: 498154-70-2277SdfoczolYwwnoypiswue (1 source)Unknown / UNK(Unknown)Onset: 09-15-2337Foifhuizdzxm (1 source)Fever, unspecified; Translations: [Fever, unspecified]Onset: 72-48-0268Mytotruicrvw (1 source)ConsultOnset: 44-02-5293Mwgwbxxkpfkl (1 source)Alcohol withdrawal syndrome without complication (HCC); Translations: [Alcohol withdrawal syndrome without complication (HCC)]Onset: 07-07-2024 Unclassified (1 source)Personal history of latent tuberculosis infection; Translations: [History of latent tuberculosis]Onset: 40-68-7798Eihea infection (2 sources)Disease caused by 2019-nCoV; Translations: [COVID-19]11-11-2022 Episodic Past or Other Problems Problem ClassificationProblemDateDocumented DateEpisodic/ChronicAbdominal pain (20 sources)Abdominal pain; Translations: [Unspecified abdominal pain]Onset: 09-06-2012 Resolved: 877387-85-8151NgrkbzroFgmgklxzyakyvm/social admission (1 source)Encounter for issue of repeat prescription; Translations: [ENC FOR ISSUE REPEAT PRESCRIPTION]Onset: 47-13-8334MefcnyksYznnfotkk infection; unspecified site (20 sources)Clostridioides difficile infection; Translations: [Other bacterial infections of unspecified site]Onset: 989910-21-8181FxhpklnrAtufu and electrolyte disorders (20 sources)Severe dehydration; Translations: [Dehydration]Onset: 11-06-2015 Resolved: 701628-04-8985GckzylsdYkzfusmue (20 sources)Viral hepatitis C; Translations: [Unspecified viral hepatitis C without hepatic coma]Onset: 542815-69-0460JtofwnpvBrsnwfnilfrgq and screening for infectious disease (5 sources)Interferon gamma assay result indeterminate; Translations: [Nonspecific reaction to cell mediated immunity measurement of gamma interferon antigen response without active tuberculosis]EpisodicIntestinal obstruction without hernia (20 sources)Small bowel obstruction; Translations: [Unspecified intestinal obstruction, unspecified as to partial versus complete obstruction]Onset: 11-06-2015 Resolved: 332215-11-7926VjuzurtjBwdlm disorders and dislocations; trauma-related (2 sources)Other tear of medial meniscus, current injury, right knee, initial encounterOnset: 01-10-2022 Resolved: 92-44-9806HpqezlwxBhaij aftercare (1 source)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; Translations: [OTH 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 SHARPENER CURRENT DRUG THERAPY]Onset: 82-53-5795YvhmnqyvDbcjw gastrointestinal disorders (20 sources)Loose stool; Translations: [Other fecal abnormalities]Onset: 09-06-2012 Resolved: 674250-57-2232ZsxfvdngAkyxb gastrointestinal disorders (4 sources)Diarrhea, unspecified; Translations: [DIARRHEA UNSPECIFIED]Onset: 09-02-2695WanviqbqDghet non-traumatic joint disorders (7 sources)Pain in right knee; Translations: [Acute pain of right knee M25.561] Onset: 09-13-2021 Resolved: 89-65-2201QcgwxhdmInuyw screening for suspected conditions (not mental disorders or infectious disease) (20 sources)Electrocardiogram abnormal; Translations: [Abnormal electrocardiogram [ECG] [EKG]]Onset: 89-66-3352KiqjedcrGojbnvjbn (except that caused by tuberculosis or sexually transmitted disease) (20 sources)Pneumonia; Translations: [Pneumonia, unspecified organism]Onset: 03-21-2010 Resolved: 803610-01-8289RyniygolUtfwsowd codes; unclassified (20 sources)History of colectomy; Translations: [Acquired absence of other specified parts of digestive tract]Onset: 307998-30-8116HaeniqbcHbiwqilj codes; unclassified (20 sources)Generalized aches and pains; Translations: [Pain, unspecified]Onset: 09-18-2013 Resolved: 748745-19-4217ItqpqrgtKfqexzie codes; unclassified (2 sources)Other specified postprocedural statesOnset: 01-10-2022 Resolved: 30-79-2782PkrjnmwvLsnrtdvm codes; unclassified (1 source)Personal history of other specified conditions; Translations: [PERSONAL HISTORY OTH SPEC CONDITION]Onset: 11-76-6868NalwtofkWkzivjlz codes; unclassified (1 source)Acquired absence of other specified parts of digestive tract; Translations: [ACQ ABSENCE OTH PART DIGESTV TRACT]Onset: 25-01-0842Msxjqgxu Syncope (20 sources)Syncope; Translations: [Syncope and collapse]Onset: 09-06-2012 Resolved: 581865-62-1539QyvcqgbaIzvvcpomwjlx (1 source)ILLOnset: 60-50-9234Bohjzkxizxjs (20 sources)SUMMARYOnset: 11-06-2015 Resolved: 376931-84-1890 Results Test NameValueInterpretationReference RangeFacilityCNPNon 96-04-1176FMPWImpxvn [facility] DublinCNPNon 08-68-9469ICQKOuscemIcaqkccld [facility] CNOVon 37-80-5320IIMGTdfkgiNhqugepvb [facility] ClevelandCNOVOffice Visit (PNHM) ANGELITA MOMIN ([id number]) 1990 M Date Time Provider Department 07/19/24 8:00 AM CHARLEEN SILVER [facility] During your visit today, we recorded the following information about you: Pulse Respiration Blood pressure 89/minute 18/minute 147/94 Charleen Silver MD 07/19/2024 8:45 AM Signed [facility] Pain Management Department Consultation Date: [...] the past who has been treated at [facility] recently for abdominal hernia [...] on 06/29/2024) (more content not included)...NormalHillcrest HospitalCNPNon 56-91-1558YQVZ NormalSelect Medical [facility] Hospital - DublinCASE MANAGEMon 49-58-2407EPVX MANAGEMNormal [facility] DublinCNDSon 10-91-2348FLJPKqwnegSukcjjjwm [facility] CONSULT PROGon 20-30-0463GMNUHCV PROGNormalSelect Medical [facility] Hospital - DublinTHERAPY NT on 91-72-8426GBFYNGS NTNormalCRegional Medical CenterBasic metabolic 2000 panelon 57-99-5500Otsbv gap [Moles/Vol]11 mmol/LNormal-[facility] - DublinComment on above:Order Comment: Specimen Type: BLOOD SPECIMENOrdering Facility: [facility] Address:[address] [place] [address] 68332Qqxxlungm By: #### 64698-7, 2777-1, 91819-3 ####[facility] [id number] [place] [address] [place] AMERICACalcium [Mass/Vol]8.8 mg/dLNormal8.5-10.2CAultman [facility] on above:Order Comment: Specimen Type: BLOOD SPECIMENOrdering Facility: [facility] Address:[address] [place], [place] [address]Result Comment: Result rechecked.Performed By: #### 46565-6, 2777-1, 46633- 2 ####[facility] [id number] [place] [address] [place] AMERICAChloride [Moles/Vol]104 mmol/L Gcmyrs38-184YujfogfpdCleveland [facility] on above:Order Comment: Specimen Type: BLOOD SPECIMENOrdering Facility: [facility] Address:[address] [place], [place] [address]Performed By: #### 10222-4, 2777-1, 75276-5 ####[facility] [id number] [place] [address] [place] AMERICACO2 [Moles/Vol]25 mmol/LNormal 22-30[facility] on above:Order Comment: Specimen Type: BLOOD SPECIMENOrdering Facility: [facility] Address:[address] [place], [place] [address]Performed By: #### 12041-2, 2777-1, 63393-7 ####[facility] [id number] [place] [address] [place] AMERICACreatinine [Mass/Vol]0.85 mg/dL Normal0.73-1.22[facility] on above:Order Comment: Specimen Type: BLOOD SPECIMENOrdering Facility: [facility] Address:[address] [place], [place] [address]Performed By: #### 25268-5, 2777-1, 25182-7 ####[facility] [id number] STATES OF [facility] TOWNSHIPCreatinine and Glomerular filtration rate.predicted panel (S/P/Bld)118 mL/min/1.73m???Normal>=60[facility] on above:Order Comment: Specimen Type: BLOOD SPECIMENOrdering Facility: [facility] Address:[address] [place], [place] [address]Result Comment: Estimated Glomerular Filtration Rate (eGFR) is calculated using the 2020 CKD-EPI creatinine equation. This equation utilizes serum creatinine, sex, and age as parameters. The creatinine assay has traceable calibration to isotope dilution-mass spectrometry. Refer to KDIGO guidelines for clinical interpretation. In patients with unstable renal function, e.g. those with acute kidney injury, the eGFR may not accurately reflect actual GFR.Performed By: #### 50175-8, 2777-1, 87896-0 ####[facility] [id number] VILLE [id number] [place] AMERICAGlucose [Mass/Vol]97 mg/iLCsvydz07-32FrfbkddipC[facility] on above:Order Comment: Specimen Type: BLOOD SPECIMENOrdering Facility: [facility] Address:[address] [place], [place] [address]Result Comment: The [place] Diabetes Association (ADA) provides guidance for cutoff [...] Standards of Medical Care in Diabetes 2016, [place] [employer]. Diabetes Care. 2016.39(Suppl 1).Performed By: #### 50468- 9, 2777-1, 84218-8 ####[facility] [id number] [address] [place] AMERICAPotassium [Moles/Vol] 3.5 mmol/LLow3.7-5.1CAultman [facility]rville [facility] on above:Order Comment: Specimen Type: BLOOD SPECIMENOrdering Facility: [facility] Address:[address] [place], [place] [address]Performed By: #### 03888-5, 2777-1, 64630-9 ####[facility] [id number] [place] [address] [place] [facility] TOWNSHIPSodium [Moles/Vol]140 mmol/L Xnilel116-584JymlsqehpC[facility] on above:Order Comment: Specimen Type: BLOOD SPECIMENOrdering Facility: [facility] Address:[address] [place], [place] [address]Performed By: #### 75566-2, 2777-1, 00421-3 ####[facility] [id number] STATES OF AMERICAUrea nitrogen [Mass/Vol]10 mg/dL Normal9-24[facility] on above:Order Comment: Specimen Type: BLOOD SPECIMENOrdering Facility: [facility] Address:[address] [place], [place] [address]Performed By: #### 66895-3, 2777-1, 90809-1 ####[facility] [id number] [place] [address] [place] AMERICAMARSHALL [facility] W Auto Differential panel (Bld)on 92-31-5675Lxkxddkyz (Bld) [#/Vol]0.06 10*3/uLNormal<0.11CAultman [facility] on above:Order Comment: Specimen Type: BLOOD SPECIMENOrdering Facility: [facility] Address:[address] [place], [place] [address]Performed By: #### 71049-6 ####[facility] [id number] [place] [address] [place] Basophils/100 WBC (Bld)0.8 %NormalCleveland Clinic [facility] on above: Order Comment: Specimen Type: BLOOD SPECIMENOrdering Facility: [facility] Address:[address] [place], [place] [address]Performed By: #### 90033- 8 ####[facility] [id number] [place] [address] [place] AMERICADifferential cell count method Nom (Bld)AutoNormalClevelOhio State Health System on above:Order Comment: Specimen Type: BLOOD SPECIMENOrdering Facility: [facility] Address:[address] [place], [place] [address]Performed By: #### 99461-1 ####[facility] [id number] [place] [address] [place] AMERICAEosinophils (Bld) [#/Vol]0.41 10*3/uLNormal<0.46[facility] on above:Order Comment: Specimen Type: BLOOD SPECIMENOrdering Facility: [facility] Address:[address] [place], [place] [address]Performed By: #### 77513-6 ####[facility] [id number] [place] [address] [place] AMERICAEosinophils/100 WBC (Bld)5.5 % NormalCleveland Clinic [facility] on above:Order Comment: Specimen Type: BLOOD SPECIMENOrdering Facility: [facility] Address:[address] [place], [place] [address]Performed By: #### 16415-9 ####[facility] [id number] [place] [address] [place] AMERICAErythrocyte distribution width (RBC) [Ratio]13.8 %Normal 11.5-15.0[facility] on above:Order Comment: Specimen Type: BLOOD SPECIMENOrdering Facility: [facility] Address:[address] [place], [place] [address]Performed By: #### 07367-8 ####[facility] [id number] [place] [address] [place] AMERICAHematocrit (Bld) [Volume fraction]41.1 %Iwtrvk05.0-51.0 [facility] on above:Order Comment: Specimen Type: BLOOD SPECIMENOrdering Facility: [facility] Address:[address] [place], [place] [address]Performed By: #### 44276-7 ####[facility] [id number] [place] [address] [place] AMERICAHemoglobin (Bld) [Mass/Vol]13.4 g/dNNofjpq72.0-17.0[facility] on above:Order Comment: Specimen Type: BLOOD SPECIMENOrdering Facility: [facility] Address:[address] [place], [place] [address]Performed By: #### 35150-7 ####[facility] CENTERIA [id number] [place] [address] [place] Immature granulocytes (Bld) [#/Vol]0.18 10*3/uLHigh<0.10[facility] on above:Order Comment: Specimen Type: BLOOD SPECIMENOrdering Facility: [facility] Address:[address] [place], [place] [address]Performed By: #### 41015-6 ####[facility] [id number] [place] [address] [place] Immature granulocytes/100 WBC (Bld)2.4 %NormalCleveland Clinic [facility] on above:Order Comment: Specimen Type: BLOOD SPECIMENOrdering Facility: [facility] Address:[address] [place] [address] Performed By: #### 18479-1 ####[facility] [id number] [place] [address] [place] Lymphocytes (Bld) [#/Vol]1.35 10*3/uLNormal1.00-4.00[facility] Comment on above:Order Comment: Specimen Type: BLOOD SPECIMENOrdering Facility: [facility] Address:[address] [place] [address] Performed By: #### 68840-3 ####[facility] [id number] [address] [place] Lymphocytes/100 WBC (Bld)18.1 %NormalCleveland Clinic [facility] on above: Order Comment: Specimen Type: BLOOD SPECIMENOrdering Facility: [facility] Address:[address] [place], [place] [address]Performed By: #### 88774- 8 ####[facility] LABIA [id number] ST[address]ETMCH (RBC) [Entitic mass]26.6 pg Yaimiy68.0-34.0Bar[facility]'s Medical Centerment on above:Order Comment: Specimen Type: BLOOD SPECIMENOrdering Facility: [facility] Address:[address] [place], [place] [address]Performed By: #### 98978-4 ####[facility] [id number] [address] STATES OF [facility] WASHINGTON TOWNSHIPMCHC (RBC) [Mass/Vol]32.6 g/dL Dswgoy48.5-36.0[facility] on above:Order Comment: Specimen Type: BLOOD SPECIMENOrdering Facility: [facility] Address:[address] [place], [place] [address]Performed By: #### 90333-4 ####[facility]IA [id number] [address]ETV (RBC) [Entitic vol]81.7 fL Nfkchu35.0-100.0[facility] on above:Order Comment: Specimen Type: BLOOD SPECIMENOrdering Facility: [facility] Address:[address] [place], [place] [address]Performed By: #### 19940-3 ####[facility] [id number] [place] [address] [place] AMERICAMonocytes (Bld) [#/Vol]0.68 10*3/uLNormal<0.87[facility] on above:Order Comment: Specimen Type: BLOOD SPECIMENOrdering Facility: [facility] Address:[address] [place], [place] [address]Performed By: #### 09723-8 ####[facility] [id number] [place] [address] [place] AMERICAMonocytes/100 WBC (Bld)9.1 % NormalCleveland Clinic [facility] on above:Order Comment: Specimen Type: BLOOD SPECIMENOrdering Facility: [facility] Address:[address] [place], [place] [address]Performed By: #### 93340-3 ####[facility] [id number] [place] [address] [place] AMERICANeutrophils (Bld) [#/Vol]4.78 10*3/uLNormal1.45-7.50[facility] on above:Order Comment: Specimen Type: BLOOD SPECIMENOrdering Facility: [facility] Address:[address] [place], [place] [address]Performed By: #### 80266-5 ####[facility] [id number] [place] [address] [place] AMERICANeutrophils/100 WBC (Bld)64.1 %NormalCleveland Clinic [facility] on above:Order Comment: Specimen Type: BLOOD SPECIMENOrdering Facility: [facility] Address:[address] [place] [address] Performed By: #### 06923-3 ####[facility] [id number] [place] [address] [place] Nucleated RBC (Bld) [#/Vol]10*3/uLNormal<0.01[facility] on above:Order Comment: Specimen Type: BLOOD SPECIMENOrdering Facility: [facility] Address:[address] [place] [address] Performed By: #### 74159-8 ####[facility] [id number] [place] [address] [place] Nucleated RBC/100 WBC (Bld) [Ratio]0.0 /100 WBCNormalCRegional Medical Center Comment on above:Order Comment: Specimen Type: BLOOD SPECIMENOrdering Facility: [facility] Address:[address] [place] [address] Performed By: #### 03390-8 ####[facility] [id number] [place] [address] [place] Platelet mean volume (Bld) [Entitic vol]11.9 fLNormal9.0-12.7CAultman [facility] on above:Order Comment: Specimen Type: BLOOD SPECIMENOrdering Facility: [facility] Address:[address] [place], [place] [address]Performed By: #### 41621-7 ####[facility] [id number] [place] [address] [place] Platelets (Bld) [#/Vol]164 10*3/aENzanhp872-564DjphokoryC[facility] Clinic [facility] on above:Order Comment: Specimen Type: BLOOD SPECIMENOrdering Facility: [facility] Address:[address] [place] [address] Performed By: #### 85882-1 ####[facility] [id number] [place] [address] [place] RBC (Bld) [#/Vol]5.03 10*6/uLNormal4.20-6.00[facility] on above:Order Comment: Specimen Type: BLOOD SPECIMENOrdering Facility: [facility] Address:[address] [address] [place], [place] [address]Performed By: #### 51146-7 ####[facility] [id number] [place] [address] [place] OF AMERICAWBC (Bld) [#/Vol]7.46 10*3/uLNormal3.70-11.00[facility] - DublinComment on above:Order Comment: Specimen Type: BLOOD SPECIMENOrdering Facility: [facility] Address:[address] [place], [place] [address]Performed By: #### 54900-1 ####[facility] [id number] [place] [address] [place] AMERICACONSULT PROGon 52-37-4568TMXZNRJ PROGNUC West [facility] HospitalMagnesium SerPl-mCncon 32-42-6787Fjiuwfmaw [Mass/Vol]2.0 mg/dLNormal1.7-2.3CRegional Medical CenterComment on above:Order Comment: Specimen Type: BLOOD SPECIMENOrdering Facility: [facility] Address:[address] [place], [place] [address]Performed By: #### 74793- 9, 2777-1, 46015-1 ####[facility] [id number] [address] [place] AMERICANURSING PROGon 03-53-5244CURMQNH PROGNormalSelect Medical [facility] Rehabilitation Hospital - DublinPhosphate SerPl-mCncon 32-05-1392Zrfkqmnab [Mass/Vol]3.1 mg/dLNormal2.7-4.8CRegional Medical Center Comment on above:Order Comment: Specimen Type: BLOOD SPECIMENOrdering Facility: [facility] Address:[address] [place] [address] Performed By: #### 13534-6, 2777-1, 77883-4 ####[facility] [id number] [place] [address] [place] AMERICATHERAPY NTon 89-53-2135UUSDSWW NTNormalCRegional Medical CenterBapaintsville arh hospital metabolic 2000 panelon 54-71-6684Oqmjs gap [Moles/Vol]10 mmol/LNormal8-15 [facility] on above:Order Comment: Specimen Type: BLOOD SPECIMENOrdering Facility: [facility] Address:[address] [place], [place] [address]Performed By: #### 40153-4 ####[facility] [id number] [place] [address] [place] AMERICACalcium [Mass/Vol]7.1 mg/dLLow8.5-10.2CAult[facility] on above:Order Comment: Specimen Type: BLOOD SPECIMENOrdering Facility: [facility] Address:[address] [place] [address] Performed By: #### 13963-5 ####[facility] [id number] [place] [address] [place] Chloride [Moles/Vol]109 mmol/URzsd15-123ZvnxbsmkjC[facility] on above:Order Comment: Specimen Type: BLOOD SPECIMENOrdering Facility: [facility] Address:[address] [place], [place] [address]Performed By: #### 78534-1 ####[facility] [id number] [place] [address] [place] AMERICACO2 [Moles/Vol]24 mmol/KUtfwai37-05XfvyoazeuC[facility] on above:Order Comment: Specimen Type: BLOOD SPECIMENOrdering Facility: [facility] Address:[address] [place], [place] [address]Performed By: #### 17335-1 ####[facility] [id number] [place] [id number] [place] AMERICACreatinine [Mass/Vol]0.77 mg/dL Normal0.73-1.22[facility] on above:Order Comment: Specimen Type: BLOOD SPECIMENOrdering Facility: [facility] Address:[address] [place], [place] [address]Performed By: #### 51515-6 ####[facility] [id number] [place] [address] [place] AMERICACreatinine and Glomerular filtration rate.predicted panel (S/P/Bld)121 mL/min/1.73m???Normal>=60[facility] on above:Order Comment: Specimen Type: BLOOD SPECIMENOrdering Facility: [facility] Address:[address] [place], [place] [address]Result Comment: Estimated Glomerular Filtration Rate (eGFR) is calculated using the 2020 CKD-EPI creatinine equation. This equation utilizes serum creatinine, sex, and age as parameters. The creatinine assay has traceable calibration to isotope dilution-mass spectrometry. Refer to KDIGO guidelines for clinical interpretation. In patients with unstable renal function, e.g. those with acute kidney injury, the eGFR may not accurately reflect actual GFR.Performed By: #### 55911-3 ####[facility] [id number] [place] [address] [place] AMERICAGlucose [Mass/Vol]78 mg/jMOpwejb30-32VreettskfC[facility] Clinic [facility] on above:Order Comment: Specimen Type: BLOOD SPECIMENOrdering Facility: [facility] Address:[address] [place], [place] [address]Result Comment: The [place] Diabetes Association (ADA) provides guidance for cutoff [...] Standards of Medical Care in Diabetes 2016, [place] [employer]. Diabetes Care. 2016.39(Suppl 1).Performed By: #### 16984-8 ####[facility] [id number] [place] [address] [place] AMERICAPotassium [Moles/Vol]2.8 mmol/LLow3.7-5.1CRegional Medical Center Comment on above:Order Comment: Specimen Type: BLOOD SPECIMENOrdering Facility: [facility] Address:[address] [place] [address] Performed By: #### 50033-5 ####[facility] [id number] [place] [address] [place] Sodium [Moles/Vol]143 mmol/CQslxvj316-659ZbnblskmbC[facility] on above:Order Comment: Specimen Type: BLOOD SPECIMENOrdering Facility: [facility] Address:[address] [place], [place] [address]Performed By: #### 65407-0 ####[facility] [id number] [place] [address] [place] AMERICAUrea nitrogen [Mass/Vol]13 mg/dLNormal9-24[facility] - DublinComment on above:Order Comment: Specimen Type: BLOOD SPECIMENOrdering Facility: [facility] Address:[address] [place], [place] [address]Performed By: #### 13145- 2 ####[facility] [id number] [place] [address] [place] AMERICAAnion gap [Moles/Vol]16 mmol/L High8-15[facility] on above:Order Comment: Specimen Type: BLOOD SPECIMENOrdering Facility: [facility] Address:[address] [place], [place] [address]Performed By: #### 48339-8, 12557-5 ####[facility] [id number] [address], [place] [address] [place] AMERICACalcium [Mass/Vol]8.6 mg/dLNormal8.5-10.2CAult[facility] on above:Order Comment: Specimen Type: BLOOD SPECIMENOrdering Facility: [facility] Address:[address] [place], [place] [address]Performed By: #### 34646-2, 62838-6 ####[facility] [id number] [place] [address] [place] AMERICAChloride [Moles/Vol]101 mmol/RShrjzm22-877ByppnvlfxC[facility] Clinic [facility] on above:Order Comment: Specimen Type: BLOOD SPECIMENOrdering Facility: [facility] Address:[address] [place], [place] [address]Performed By: #### 95676-7, 29762-5 ####[facility] [id number] [place] [address] [place] AMERICACO2 [Moles/Vol]26 mmol/KHancnz23-45MagaolfggC[facility] Clinic [facility] on above:Order Comment: Specimen Type: BLOOD SPECIMENOrdering Facility: [facility] Address:[address] [place], [place] [address]Performed By: #### 94189-5, 69551-8 ####[facility] [id number] [place] [address] [place] AMERICACreatinine [Mass/Vol] 0.89 mg/dLNormal0.73-1.22[facility] on above:Order Comment: Specimen Type: BLOOD SPECIMENOrdering Facility: [facility] Address:[address] [place], [place] [address]Performed By: #### 55233- 2, 43432-3 ####[facility] [id number] [facility] [place] [address] [place] AMERICACreatinine and Glomerular filtration rate.predicted panel (S/P/Bld)116 mL/min/1.73m???Normal >=60[facility] on above:Order Comment: Specimen Type: BLOOD SPECIMENOrdering Facility: [facility] Address:[address] [place], [place] [address]Tuxbxx Comment: Estimated Glomerular Filtration Rate (eGFR) is calculated using the 2020 CKD-EPI creatinine equation. This equation utilizes serum creatinine, sex, and age as parameters. The creatinine assay has traceable calibration to isotope dilution-mass spectrometry. Refer to KDIGO guidelines for clinical interpretation. In patients with unstable renal function, e.g. those with acute kidney injury, the eGFR may not accurately reflect actual GFR.Performed By: #### 63935-5, 70440-4 ####[facility] [id number] [place] [address] [place] AMERICAGlucose [Mass/Vol]83 mg/gBKdoatt42-95ZalahsbqtSelect Medical [facility] Comment on above:Order Comment: Specimen Type: BLOOD SPECIMENOrdering Facility: [facility] Address:[address] [place], [place] [address]Result Comment: The [place] Diabetes Association (ADA) provides guidance for cutoff [...] Standards of Medical Care in Diabetes 2016, [place] [employer]. Diabetes Care. 2016.39(Suppl 1).Performed By: #### 32891-6, 32064-2 ####[facility] [id number] [place] [address] [place] AMERICAPotassium [Moles/Vol]3.5 mmol/LLow3.7-5.1CAultman [facility] on above:Order Comment: Specimen Type: BLOOD SPECIMENOrdering Facility: [facility] Address:[address] [place], [place] [address]Performed By: #### 09560-7, 92281-7 ####[facility] [id number] [place] [address] [place] [facility]OWNSHIPSodium [Moles/Vol]143 mmol/TGbuwzx016-614ChxslsjdiSelect Medical [facility] Comment on above:Order Comment: Specimen Type: BLOOD SPECIMENOrdering Facility: [facility] Address:[address] [place] [address] Performed By: #### 47358-5, 62977-1 ####[facility] [id number] [place] [address] [place] Urea nitrogen [Mass/Vol]15 mg/dLNormal9-24[facility] - DublinComment on above:Order Comment: Specimen Type: BLOOD SPECIMENOrdering Facility: [facility] Address:[address] [place], [place] [address]Performed By: #### 92363-2, 95871-0 ####[facility] [id number] [place] [address] [place] AMERICACASE MANAGEMon 13-66-0750TNKH MANAGEMNormalSelect Medical [facility] Rehabilitation Hospital - DublinCASE MANAGEMNormal [facility] DublinCB W Auto Differential panel (Bld)on 07-06-2024 Basophils (Bld) [#/Vol]0.04 10*3/uLNormal<0.11CAult[facility] on above:Order Comment: Specimen Type: BLOOD SPECIMENOrdering Facility: [facility] Address:[address] [place] [address] Performed By: #### 77804-3 ####[facility] [id number] [place] [address] [place] Basophils/100 WBC (Bld)0.8 %NormalC[facility] Clinic [facility] on above: Order Comment: Specimen Type: BLOOD SPECIMENOrdering Facility: [facility] Address:[address] [place], [place] [address]Performed By: #### 03631- 8 ####[facility] [id number] [place] [address] [place] AMERICADifferential cell count method Nom (Bld)AutoNormalCAultman Orrville Hospital on above:Order Comment: Specimen Type: BLOOD SPECIMENOrdering Facility: [facility] Address:[address] [place], [place] [address]Performed By: #### 41222-1 ####[facility] [id number] [place] [address] [place] AMERICAEosinophils (Bld) [#/Vol]0.42 10*3/uLNormal<0.46[facility] on above:Order Comment: Specimen Type: BLOOD SPECIMENOrdering Facility: [facility] Address:[address] [place], [place] [address]Performed By: #### 55931-1 ####[facility] [id number] [place] [address] [place] AMERICAEosinophils/100 WBC (Bld)7.9 % NormalCleveland Clinic [facility] on above:Order Comment: Specimen Type: BLOOD SPECIMENOrdering Facility: [facility] Address:[address] [place], [place] [address]Performed By: #### 00455-5 ####[facility] [id number] [place] [address] [place] AMERICAErythrocyte distribution width (RBC) [Ratio]13.5 %Normal 11.5-15.0[facility] on above:Order Comment: Specimen Type: BLOOD SPECIMENOrdering Facility: [facility] Address:[address] [place], [place] [address]Performed By: #### 72756-6 ####[facility] [id number] [place] [address] [place] AMERICAHematocrit (Bld) [Volume fraction]37.4 %Low39.0-51.0 [facility] on above:Order Comment: Specimen Type: BLOOD SPECIMENOrdering Facility: [facility] Address:[address] [place], [place] [address]Performed By: #### 35824-6 ####[facility] [id number] [place] [address] [place] AMERICAHemoglobin (Bld) [Mass/Vol]12.0 g/dLLow13.0-17.0[facility] on above:Order Comment: Specimen Type: BLOOD SPECIMENOrdering Facility: [facility] Address:[address] [place], [place] [address]Performed By: #### 20895-9 ####[facility] [id number] [place] [address] [place] Immature granulocytes (Bld) [#/Vol]0.05 10*3/uLNormal<0.10[facility] Medical Centerment on above:Order Comment: Specimen Type: BLOOD SPECIMENOrdering Facility: [facility] Address:[address] [place], [place] [address]Performed By: #### 37011-0 ####[facility] [id number] [place] [address] [place] Immature granulocytes/100 WBC (Bld)0.9 %NormalC[facility] Clinic [facility] on above:Order Comment: Specimen Type: BLOOD SPECIMENOrdering Facility: [facility] Address:[address] [place] [address] Performed By: #### 27100-2 ####[facility] [id number] [place] [address] [place] Lymphocytes (Bld) [#/Vol]0.94 10*3/uLLow1.00-4.00[facility] Comment on above:Order Comment: Specimen Type: BLOOD SPECIMENOrdering Facility: [facility] Address:[address] [place] [address] Performed By: #### 95357-0 ####[facility] [id number] [address] STATES [facility] Lymphocytes/100 WBC (Bld)17.6 %NormalC[facility] Clinic [facility] on above: Order Comment: Specimen Type: BLOOD SPECIMENOrdering Facility: [facility] Address:[address] [place], [place] [address]Performed By: #### 31213- 8 ####[facility] [id number] [address] (RBC) [Entitic mass]27.2 pg Uzczgw70.0-34.0[facility] on above:Order Comment: Specimen Type: BLOOD SPECIMENOrdering Facility: [facility] Address:[address] [place], [place] [address]Performed By: #### 45966-7 ####[facility] [id number] [address]HC (RBC) [Mass/Vol]32.1 g/dL Dehplc84.5-36.0[facility] on above:Order Comment: Specimen Type: BLOOD SPECIMENOrdering Facility: [facility] Address:[address] [place], [place] [address]Performed By: #### 43956-7 ####[facility] [id number] [address] (RBC) [Entitic vol]84.8 fL Ahrwtt36.0-100.0[facility] on above:Order Comment: Specimen Type: BLOOD SPECIMENOrdering Facility: [facility] Address:[address] [place], [place] [address]Performed By: #### 07768-0 ####[facility] [id number] [place] [address] [place] AMERICAMonocytes (Bld) [#/Vol]0.64 10*3/uLNormal<0.87[facility] on above:Order Comment: Specimen Type: BLOOD SPECIMENOrdering Facility: [facility] Address:[address] [place], [place] [address]Performed By: #### 09800-5 ####[facility] [id number] [place] [address] [place] AMERICAMonocytes/100 WBC (Bld)12.0 % NormalCleveland Clinic [facility] on above:Order Comment: Specimen Type: BLOOD SPECIMENOrdering Facility: [facility] Address:[address] [place], [place] [address]Performed By: #### 28449-2 ####[facility] [id number] [place] [address] [place] AMERICANeutrophils (Bld) [#/Vol]3.24 10*3/uLNormal1.45-7.50[facility] on above:Order Comment: Specimen Type: BLOOD SPECIMENOrdering Facility: [facility] Address:[address] [place], [place] [address]Performed By: #### 13709-0 ####[facility] [id number] [place] [address] [place] AMERICANeutrophils/100 WBC (Bld)60.8 %NormalCleveland Clinic [facility] on above:Order Comment: Specimen Type: BLOOD SPECIMENOrdering Facility: [facility] Address:[address] [place] [address] Performed By: #### 55773-7 ####[facility] [id number] [place] [address] [place] Nucleated RBC (Bld) [#/Vol]10*3/uLNormal<0.01[facility] on above:Order Comment: Specimen Type: BLOOD SPECIMENOrdering Facility: [facility] Address:[address] [place] [address] Performed By: #### 67084-4 ####[facility] [id number] [place] [address] [place] Nucleated RBC/100 WBC (Bld) [Ratio]0.0 /100 WBCNormalCRegional Medical Center Comment on above:Order Comment: Specimen Type: BLOOD SPECIMENOrdering Facility: [facility] Address:[address] [place] [address] Performed By: #### 67307-7 ####[facility] [id number] [place] [address] [place] Platelet mean volume (Bld) [Entitic vol]12.9 fLHigh9.0-12.7CRegional Medical CenterComment on above:Order Comment: Specimen Type: BLOOD SPECIMENOrdering Facility: [facility] Address:[address] [place], [place] [address]Performed By: #### 36010-2 ####[facility] [id number] [place] [address] [place] Platelets (Bld) [#/Vol]133 10*3/nZUyq289-756WtvhedjgkSelect Medical [facility] Rehabilitation Hospital - DublinComment on above:Order Comment: Specimen Type: BLOOD SPECIMENOrdering Facility: [facility] Address:[address] [place], [place] [address]Performed By: #### 97640-2 ####[facility] [id number] [place] [address] [place] AMERICARBC (Bld) [#/Vol]4.41 10*6/uLNormal4.20-6.00[facility] on above:Order Comment: Specimen Type: BLOOD SPECIMENOrdering Facility: [facility] Address:[address] [place], [place] [address]Performed By: #### 29229-3 ####[facility] [id number] [place] [address] [place] AMERICAWBC (Bld) [#/Vol]5.33 10*3/uL Normal3.70-11.00[facility] on above:Order Comment: Specimen Type: BLOOD SPECIMENOrdering Facility: [facility] Address:[address] [place], [place] [address]Performed By: #### 03614-8 ####[facility] [id number] [place] [address] [place] AMERICABasophils (Bld) [#/Vol]0.10 10*3/uLNormal<0.11CAult[facility] on above:Order Comment: Specimen Type: BLOOD SPECIMENOrdering Facility: [facility] Address:[address] [place], [place] [address]Performed By: #### 41202-8 ####[facility] [id number] [place] [address] [place] AMERICABasophils/100 WBC (Bld)1.8 % NormalCleveland Clinic [facility] on above:Order Comment: Specimen Type: BLOOD SPECIMENOrdering Facility: [facility] Address:[address] [place], [place] [address]Performed By: #### 47040-4 ####[facility] [id number] [place] [address] [place] AMERICADifferential cell count method Nom (Bld)ManualNormalCAultman Orrville Hospital on above:Order Comment: Specimen Type: BLOOD SPECIMENOrdering Facility: [facility] Address:[address] [place], [place] [address]Performed By: #### 77219-6 ####[facility] [id number] [place] [address] [place] AMERICAEosinophils (Bld) [#/Vol]0.90 10*3/uLHigh<0.46[facility] Comment on above:Order Comment: Specimen Type: BLOOD SPECIMENOrdering Facility: [facility] Address:[address] [place] [address] Performed By: #### 17808-5 ####[facility] [id number] [place] [address] [place] Eosinophils/100 WBC (Bld)15.8 %NormalCleveland Clinic [facility] on above: Order Comment: Specimen Type: BLOOD SPECIMENOrdering Facility: [facility] Address:[address] [place], [place] [address]Performed By: #### 66997- 8 ####[facility] [id number] [place] [address] [place] AMERICAErythrocyte distribution width (RBC) [Ratio]14.0 %Wphqvm06.5-15.0[facility] Centerment on above: Order Comment: Specimen Type: BLOOD SPECIMENOrdering Facility: [facility] Address:[address] [place], [place] [address]Performed By: #### 77786- 8 ####[facility] [id number] [place] [address] [place] AMERICAHematocrit (Bld) [Volume fraction]45.9 %Myxmir41.0-51.0[facility] on above:Order Comment: Specimen Type: BLOOD SPECIMENOrdering Facility: [facility] Address:[address] [place], [place] [address]Performed By: #### 88019- 8 ####[facility] [id number] [place] [address] [place] AMERICAHemoglobin (Bld) [Mass/Vol]14.9 g/qUJfpucx69.0-17.0[facility] on above:Order Comment: Specimen Type: BLOOD SPECIMENOrdering Facility: [facility] Address:[address] [place], [place] [address]Performed By: #### 72081-8 ####[facility] [id number] [place] [address] [place] AMERICALymphocytes (Bld) [#/Vol]1.50 10*3/uLNormal1.00-4.00[facility] on above:Order Comment: Specimen Type: BLOOD SPECIMENOrdering Facility: [facility] Address:[address] [place], [place] [address]Performed By: #### 01862-9 ####[facility] [id number] [place] [address] [place] AMERICALymphocytes/100 WBC (Bld)26.3 % NormalCleveland Clinic [facility] on above:Order Comment: Specimen Type: BLOOD SPECIMENOrdering Facility: [facility] Address:[address] [place], [place] [address]Performed By: #### 97413-4 ####[facility] [id number] [place] [address] [place] AMERICAMCH (RBC) [Entitic mass]27.0 ybCnxjwp20.0-34.0[facility] on above:Order Comment: Specimen Type: BLOOD SPECIMENOrdering Facility: [facility] Address:[address] [place], [place] [address]Performed By: #### 26073-0 ####[facility] [id number] [place] [address] [place] MCHC (RBC) [Mass/Vol]32.5 g/sVQmsxqf39.5-36.0[facility] on above:Order Comment: Specimen Type: BLOOD SPECIMENOrdering Facility: [facility] Address:[address] [place] [address] Performed By: #### 24043-5 ####[facility] [id number] [place] [address] [place] MCV (RBC) [Entitic vol]83.3 eTSnddaf46.0-100.0[facility] on above:Order Comment: Specimen Type: BLOOD SPECIMENOrdering Facility: [facility] Address:[address] [place] [address] Performed By: #### 44105-6 ####[facility] [id number] [place] [address] [place] Monocytes (Bld) [#/Vol]0.75 10*3/uLNormal<0.87[facility] on above:Order Comment: Specimen Type: BLOOD SPECIMENOrdering Facility: [facility] Address:[address] [place] [address] Performed By: #### [id number] ####[facility] [id number] [place] [address] [place] Monocytes/100 WBC (Bld)13.2 %NormalCleveland Clinic [facility] on above: Order Comment: Specimen Type: BLOOD SPECIMENOrdering Facility: [facility] Address:[address] [place], [place] [address]Performed By: #### [id number]- [id number] ####[facility] [id number] [place] [address] [place]utrophils (Bld) [#/Vol]2.45 10*3/uLNormal1.45-7.50[facility] on above:Order Comment: Specimen Type: BLOOD SPECIMENOrdering Facility: [facility] Address:[address] [address] [place], [place] [address]Performed By: #### 82754-2 ####[facility] [id number] [place] [address] [place] AMERICANeutrophils/100 WBC (Bld)42.9 % NormalCleveland Clinic [facility] on above:Order Comment: Specimen Type: BLOOD SPECIMENOrdering Facility: [facility] Address:[address] [place], [place] [address]Performed By: #### 97891-3 ####[facility] [id number] [place] [address] [place] AMERICANucleated RBC (Bld) [#/Vol]10*3/uLNormal<0.01[facility] on above:Order Comment: Specimen Type: BLOOD SPECIMENOrdering Facility: [facility] Address:[address] [place], [place] [address]Performed By: #### 04329-7 ####[facility] [id number] [place] [address] [place] Nucleated RBC/100 WBC (Bld) [Ratio]0.0 /100 WBCNormalCRegional Medical Center Comment on above:Order Comment: Specimen Type: BLOOD SPECIMENOrdering Facility: [facility] Address:[address] [place] [address] Performed By: #### 15833-4 ####[facility] [id number] [place] [address] [place] Platelet mean volume (Bld) [Entitic vol]12.3 fLNormal9.0-12.7CAult[facility] on above:Order Comment: Specimen Type: BLOOD SPECIMENOrdering Facility: [facility] Address:[address] [place], [place] [address]Performed By: #### 10766-8 ####[facility] [id number] [place] [address] [place] Platelets (Bld) [#/Vol]158 10*3/oDIwpxlw138-309DxvmlxzcpC[facility] Clinic [facility] on above:Order Comment: Specimen Type: BLOOD SPECIMENOrdering Facility: [facility] Address:[address] [place] [address] Performed By: #### 04511-5 ####[facility] [id number] [place] [address] [place] Platelets Estimate (Bld) [#/Vol]AdequateNormalCAultman Orrville Hospital on above:Order Comment: Specimen Type: BLOOD SPECIMENOrdering Facility: [facility] Address:[address] [place] [address] Performed By: #### 80619-5 ####[facility] [id number] [place] [address] [place] Polychromasia LM Ql (Bld)SlightNormalCAultman Orrville Hospital on above: Order Comment: Specimen Type: BLOOD SPECIMENOrdering Facility: [facility] Address:[address] [place], [place] [address]Performed By: #### 58127- 8 ####[facility] [id number] [place] [address] [place] AMERICARBC (Bld) [#/Vol]5.51 10*6/uL Normal4.20-6.00[facility] on above:Order Comment: Specimen Type: BLOOD SPECIMENOrdering Facility: [facility] Address:[address] [place], [place] [address]Performed By: #### 84062-2 ####[facility] [id number] [place] [address] [place] AMERICARED CELL MORPHReviewed: unremarkableNormalCAultman Orrville Hospital on above:Order Comment: Specimen Type: BLOOD SPECIMENOrdering Facility: [facility] Address:[address] [place], [place] [address]Performed By: #### 33189-2 ####[facility] [id number] [place] [address] [place] AMERICAWBC (Bld) [#/Vol]5.71 10*3/uL Normal3.70-11.00[facility] on above:Order Comment: Specimen Type: BLOOD SPECIMENOrdering Facility: [facility] Address:[address] [place], [place] [address]Performed By: #### 57077-8 ####[facility] [id number] [place] [address] [place] AMERICACONSULT PROGon 50-61-9317FMFXDTU PROGNormalThe University Of [facility] Cledunlap memorial hospitalCONSULT PROGNormalSelect Medical [facility] CRP SerPl-mCncon 32-40-7429XFB [Mass/Vol]11.4 mg/dLHigh<0.9CAultman [facility] on above:Order Comment: Specimen Type: BLOOD SPECIMENOrdering Facility: [facility] Address:[address] [place], [place] [address]Performed By: #### 97149-9, 2776-12, 1988-03, 3034-05 ####[facility] [id number] [place] [address] [place] AMERICACT ABD/PEL W IVCONon 30-58-2141FT ABD/PEL W IVCONNormal [facility] DublinMagnesium SerPl-mCncon 45-40-5410Atpmtsxsk [Mass/Vol] 2.1 mg/dLNormal1.7-2.3ClevelCannon Memorial Hospitalment on above:Order Comment: Specimen Type: BLOOD SPECIMENOrdering Facility: [facility] Address:[address] [place], [place] [address]Performed By: #### 62366-0, 2776-12, 1988-03, 3034-05 ####[facility] [id number] [place] [id number] [place] AMERICANURSING PROGon 97-21-7274NSQQKEH PROGNormalThe University Of [facility] ClevelandNUTRITIONon 07-06-2024 NUTRITIONNormalCRegional Medical CenterPT panel Coag (PPP)on 59-57-7315NUH Coag (PPP) [Relative time]1.0 {INR}Normal0.9-1.3ClevelECU Health North Hospital Comment on above:Order Comment: Specimen Type: BLOOD SPECIMENOrdering Facility: [facility] Address:[address] [place] [address]Xpddgz Comment: Vitamin K Antagonist (VKA) Therapeutic Range: INR 2 to 3 (Target INR of 2.5)Note: For patients treated with VKA drugs, such as warfarin, the [place] [employer] 2012 Guideline recommends [...] al. Chest 2012, 141:7S-47SNishimradha RA, et al. [facility] 2017, 70: 252-289Performed By: #### 11235-1, 56649-5 ####[facility] [id number] [place] [address] [place] AMERICAPT Coag (PPP) [Time] 11.0 sNormal9.7-13.0[facility] on above:Order Comment: Specimen Type: BLOOD SPECIMENOrdering Facility: [facility] Address:[address] [place], [place] [address]Performed By: #### 33338-0, 16898-7 ####[facility] [id number] [place] [id number] [place] AMERICAPhosphate SerPl-mCncon 07-06-2024 Phosphate [Mass/Vol]2.1 mg/dLLow2.7-4.8CAultman [facility] on above:Order Comment: Specimen Type: BLOOD SPECIMENOrdering Facility: [facility] Address:[address] [place], [place] [address]Performed By: #### 95717-4, 277-1, 1987-, 3034-6 ####[facility] [id number] [address] [address] [place] Prealb SerPl-mCncon 04-29-5719Vmgocvduhm [Mass/Vol]14 mg/mPDyu54-48ShzepcypnSelect Medical Ohiohealth Rehabilitation Hospital - DublinComtrinity health [facility] on above:Order Comment: Specimen Type: BLOOD SPECIMENOrdering Facility: [facility] Address:[address] [place], [place] [address]Performed By: #### 83370-6, 16624-2 ####[facility] [id number] [place] [address] [place] AMERICATHERAPY NTon 27-74-3821JOSIDLQ NTNormalCRegional Medical CenterTHERAPY NTNormalCRegional Medical CenterTransferrin SerPl-mCncon 00-33-1727Gxzkskpbeio [Mass/Vol]184 mg/lVRkl663-281OxuhyqiidSelect Medical [facility] Comment on above:Order Comment: Specimen Type: BLOOD SPECIMENOrdering Facility: [facility] Address:[address] [place] [address] Performed By: #### 53816-8, 2777-1, 1987-, 3034-05 ####[facility] [id number] [place] [address] [place] AMERICAaPTT PPPon 80-35-4627sUVQ Coag (PPP) [Time]26.2 sNormal 23.0-32.4CRegional Medical CenterComtrinity health oakland hospital on above:Order Comment: Specimen Type: BLOOD SPECIMENOrdering Facility: [facility] Address:[address] [place], [place] [address]Performed By: #### 35470-2, 16282-1 ####[facility] [id number] [place] [address] [place] AMERICACASE MANAGEMon 00-46-3955GANV MANAGEMNormal [facility] DublinCONSULTon 34-53-3252NDVLZRDJgmapkJrloruoeo Clinic ClevelandCONSULT PROGon 18-03-2951PMEIBFZ PROGNormalSelect Medical [facility] Rehabilitation Hospital - DublinPT EDon 62-70-2792OP EDNormalCLancaster Municipal Hospital panel Coag (PPP)on 33-19-4443QGX Coag (PPP) [Relative time]1.0 {INR}Normal0.9-1.3CAultman [facility] on above:Order Comment: Specimen Type: BLOOD SPECIMENOrdering Facility: [facility] Address:[address] [place] [id number] Comment: Vitamin K Antagonist (VKA) Therapeutic Range: INR 2 to 3 (Target INR of 2.5)Note: For patients treated with VKA drugs, such as warfarin, the [place] [employer] 2012 Guideline recommends [...] al. Chest 2012, 141:7S-47SNishsophia RA, et al. [facility] 2017, 70: 252-289Performed By: #### 37241-2, 56423-2 ####[facility] [id number] [place] [id number] [place] [facility] TOWNSHIPPT Coag (PPP) [Time] 10.7 sNormal9.7-13.0[facility] on above:Order Comment: Specimen Type: BLOOD SPECIMENOrdering Facility: [facility] Address:[address]ERC[address] [place], [place] [address]Rnqmywhsa By: #### 67858-4, 46319-2 ####[facility] [id number] [address] OF AMERICATHERAPY NTon 83-65-9730CQRQMMR NT NormalSelect Medical [facility]health Rehabilitation Hospital - DublinXR ABDOMEN 1V SUPINEon 30-95-6578ZQ ABDOMEN 1V SUPINENormalCRegional Medical CenteraPTT PPPon 14-21-8769mSEJ Coag (PPP) [Time]28.2 zGkwekv81.0-32.4CAultman [facility] on above:Order Comment: Specimen Type: BLOOD SPECIMENOrdering Facility: [facility] Address:[address] [place], [place] [address]Performed By: #### 82138- 0, 89760-8 ####[facility] [id number] [place] [address] [facility] OF [facility] TOWNSHIPCBC panel Auto (Bld)on 84-10-0724Roetblmrijh distribution width (RBC) [Ratio]14.2 %Mwafbz58.5-15.0 [facility] - DublinComment on above:Order Comment: Specimen Type: BLOOD SPECIMENOrdering Facility: [facility] Address:[address] [place], [place] [address]Performed By: #### 67855-6 ####[facility] [id number] [address] STATES OF [facility] TOWNSHIPHematocrit (Bld) [Volume fraction]46.4 %Sdkkng12.0-51.0[facility] - DublinComtrinity health oak[facility] hospital on above:Order Comment: Specimen Type: BLOOD SPECIMENOrdering Facility: [facility] Address:[address] [place], [place] [address]Performed By: #### 39977-5 ####[facility] [id number] [place] [id number] [place] Hemoglobin (Bld) [Mass/Vol]15.1 g/oHQeteww51.0-17.0[facility] Comment on above:Order Comment: Specimen Type: BLOOD SPECIMENOrdering Facility: [facility] Address:[address] [place] [address] Performed By: #### 04492-6 ####[facility] [id number] [place] [address] [place] MCH (RBC) [Entitic mass]27.3 oyVogova18.0-34.0[facility] on above:Order Comment: Specimen Type: BLOOD SPECIMENOrdering Facility: [facility] Address:[address] [place] [address] Performed By: #### 60203-0 ####[facility] [id number] [place] [address] [place] MCHC (RBC) [Mass/Vol]32.5 g/fOEmkdyz69.5-36.0[facility] on above:Order Comment: Specimen Type: BLOOD SPECIMENOrdering Facility: [facility] Address:[address] [place] [address] Performed By: #### 51741-4 ####[facility] [id number] [place] [address] [place] MCV (RBC) [Entitic vol]83.8 dCGzmlxy53.0-100.0[facility] on above:Order Comment: Specimen Type: BLOOD SPECIMENOrdering Facility: [facility] Address:[address] [place] [address] Performed By: #### 86105-3 ####[facility] [id number] [place] [address] [place] Nucleated RBC (Bld) [#/Vol]10*3/uLNormal<0.01[facility] on above:Order Comment: Specimen Type: BLOOD SPECIMENOrdering Facility: [facility] Address:[address] [place] [address] Performed By: #### 79411-1 ####[facility] [id number] [place] [address] [place] Platelet mean volume (Bld) [Entitic vol]11.6 fLNormal9.0-12.7CAult[facility] on above:Order Comment: Specimen Type: BLOOD SPECIMENOrdering Facility: [facility] Address:[address] [place], [place] [address]Performed By: #### 96087-7 ####[facility] [id number] [place] [address] [place] Platelets (Bld) [#/Vol]146 10*3/lAPvt675-701XxlgbygudC[facility] Clinic [facility] on above:Order Comment: Specimen Type: BLOOD SPECIMENOrdering Facility: [facility] Address:[address] [place], [place] [address]Performed By: #### 05923-9 ####[facility] [id number] [place] [address] [place] AMERICARBC (Bld) [#/Vol]5.54 10*6/uLNormal4.20-6.00[facility] on above:Order Comment: Specimen Type: BLOOD SPECIMENOrdering Facility: [facility] Address:[address] [place], [place] [address]Performed By: #### 15642-1 ####[facility] [id number] [place] [address] [place] AMERICAWBC (Bld) [#/Vol]4.30 10*3/uL Normal3.70-11.00[facility] on above:Order Comment: Specimen Type: BLOOD SPECIMENOrdering Facility: [facility] Address:[address] [place], [place] [address]Performed By: #### 68570-6 ####[facility] [id number] [place] [address] [place] AMERICACONSULT PROGon 20-99-5987VOUWARX PROGNormalSelect Medical [facility] Rehabilitation Hospital - DublinComprehensive metabolic 2000 panelon 29-42-9292Kvpwkvj [Mass/Vol]3.8 g/dLLow3.9-4.9CRegional Medical CenterComtrinity health [facility] hospital on above:Order Comment: Specimen Type: BLOOD SPECIMENOrdering Facility: [facility] Address:[address] [place] [address] Performed By: #### 25137-4, 07892-6, 2776- ####[facility] [id number] [address] [place] AMERICAALP [Catalytic activity/Vol]89 U/MJoifsu22-560MlctiynggSelect Medical [facility] Comment on above:Order Comment: Specimen Type: BLOOD SPECIMENOrdering Facility: [facility] Address:[address] [place] [address] Performed By: #### 64559-5, , 2776-12 ####[facility] [id number] [address] [place] AMERICAALT [Catalytic activity/Vol]105 U/SAnqd60-63LtybjpvbmSelect Medical [facility] Comment on above:Order Comment: Specimen Type: BLOOD SPECIMENOrdering Facility: [facility] Address:[address] [place] [address] Performed By: #### 26535-6, , 2776-12 ####[facility] [id number] [place]IL[place] [id number] [place] AMERICAAnion gap [Moles/Vol]16 mmol/LHigh8-15[facility] - DublinComtrinity health [facility] on above:Order Comment: Specimen Type: BLOOD SPECIMENOrdering Facility: [facility] Address:[address] [place] [address] Performed By: #### 86970-7, 05342-7, 2776-12 ####[facility] [id number] [address] [address] [place] AMERICAAST [Catalytic activity/Vol]53 U/RRksu91-31QwogxjvodSelect Medical [facility] Comment on above:Order Comment: Specimen Type: BLOOD SPECIMENOrdering Facility: [facility] Address:[address] [place], [place] [id number] Comment: Results may be falsely increased due to interference from hemolysis. Suggest reorder as clinically indicated.Performed By: #### 73998-0, 71786-8, 2776- ####[facility] [id number] [place] [id number] [place] AMERICABilirubin [Mass/Vol]1.1 mg/dL Normal0.2-1.3CA[facility] on above:Order Comment: Specimen Type: BLOOD SPECIMENOrdering Facility: [facility] Address:[address] [place], [place] [address]Performed By: #### 80520-6, 80025-0, 2776-12 ####[facility] [id number] [address] [place] AMERICACalcium [Mass/Vol]9.3 mg/dLNormal 8.5-10.2CA[facility] on above:Order Comment: Specimen Type: BLOOD SPECIMENOrdering Facility: [facility] Address:[address] [place], [place] [address]Performed By: #### 27550-2, 12780-6, 2776-12 ####[facility] [id number] [place]IL[place] [address] [place] AMERICAChloride [Moles/Vol]101 mmol/L Savhqo36-850YcjeylzhiC[facility] Clinic [facility] on above:Order Comment: Specimen Type: BLOOD SPECIMENOrdering Facility: [facility] Address:[address] [place], [place] [address]Performed By: #### 68128-7, 74868-3, 2776-12 ####[facility] [id number] [address] [place] AMERICACO2 [Moles/Vol]19 mmol/GJik31-89 [facility] on above:Order Comment: Specimen Type: BLOOD SPECIMENOrdering Facility: [facility] Address:[address] [place] [id number] By: #### 49364-1, 26139-8, 2776-12 ####[facility] [id number] [place]IL[place] [id number] [place] AMERICACreatinine [Mass/Vol]1.15 mg/dLNormal0.73-1.22 [facility] on above:Order Comment: Specimen Type: BLOOD SPECIMENOrdering Facility: [facility] Address:[address] [place], [place] [address]Performed By: #### 36899-1, , 2776-12 ####[facility] [id number] [address] [place] AMERICACreatinine and Glomerular filtration rate.predicted panel (S/P/Bld)86 mL/min/1.73m???Normal>=60[facility] on above:Order Comment: Specimen Type: BLOOD SPECIMENOrdering Facility: [facility] Address:[address] [place], [place] [address]Result Comment: Estimated Glomerular Filtration Rate (eGFR) is [...] accurately reflect actual GFR. Performed By: #### 92307-8, , 2776-12 ####[facility] [id number] VILLE [id number] [place] AMERICAGlucose [Mass/Vol]119 mg/cAWlwg77-24AfsoqftoqC[facility] Clinic [facility] on above:Order Comment: Specimen Type: BLOOD SPECIMENOrdering Facility: [facility] Address:[address] [place], [place] [id number] Comment: The [place] Diabetes Association (ADA) provides guidance for cutoff [...] Standards of Medical Care in Diabetes 2016, [place] [employer]. Diabetes Care. 2016.39(Suppl 1).Performed By: #### 10676-6, 21346-9, 2776-12 ####[facility] LABNORTHE[facility] [id number] [address] [place] AMERICAPotassium [Moles/Vol]4.5 mmol/LNormal3.7-5.1 [facility] on above:Order Comment: Specimen Type: BLOOD SPECIMENOrdering Facility: [facility] Address:[address] [place], [place] [address]Performed By: #### 38266-6, , 2776-12 ####[facility] LABNORTHEASTERN [facility] [id number] [address] [place] AMERICAProtein [Mass/Vol]6.5 g/dLNormal6.3-8.0[facility] on above:Order Comment: Specimen Type: BLOOD SPECIMENOrdering Facility: [facility] Address:[address] [place], [place] [id number] By: #### 79365-4, 19385-9, 2776-12 ####[facility] [id number] [address] [place] AMERICASodium [Moles/Vol]136 mmol/IZvwgqz036-463JeklpucsjC[facility] Clinic [facility] on above:Order Comment: Specimen Type: BLOOD SPECIMENOrdering Facility: [facility] Address:[address] [place], [place] [address]Performed By: #### 63597-4, 12610-2, 2777- ####[facility] [id number] VILLE [id number] [place] AMERICAUrea nitrogen [Mass/Vol]17 mg/dLNormal9-24 [facility] on above:Order Comment: Specimen Type: BLOOD SPECIMENOrdering Facility: [facility] Address:[address] [place], [place] [id number] By: #### 74429-5, 63587-0, 2777- ####[facility] [id number] [place]IL[place] [address] [place] AMERICAMagnesium SerPl-mCncon 20-54-8419Crdhycfrq [Mass/Vol]1.9 mg/dLNormal1.7-2.3CAultman [facility] on above:Order Comment: Specimen Type: BLOOD SPECIMENOrdering Facility: [facility] Address:[address] [place], [place] [phone] By: #### 65880- 8, 39835-3, 2777- ####[facility] [id number] VILLE [id number] [place] AMERICANURSING PROGon 69-24-5261TYWLKFL PROGNormalSelect Medical [facility] Rehabilitation Hospital - DublinNURSING PROGNormal [facility] - DublinNURSING PROGNormalSelect Medical [facility] Rehabilitation Hospital - DublinPT panel Coag (PPP)on 41-38-6193DZO Coag (PPP) [Relative time]1.1 {INR}Normal0.9-1.3 [facility] on above:Order Comment: Specimen Type: BLOOD SPECIMENOrdering Facility: [facility] Address:[address] [place], [place] [address]Result Comment: Vitamin K Antagonist (VKA) Therapeutic Range: INR 2 to 3 (Target INR of 2.5)Note: For patients treated with VKA drugs, such as warfarin, the [place] [employer] 2012 Guideline recommends [...] al. Chest 2012, 141:7S-47SNishsophia RA, et al. [facility] 2017, 70: 252-289 Performed By: #### 94989-4, 94652-9 ####[facility] [id number] [place] [address] [place] PT Coag (PPP) [Time]11.4 sNormal9.7-13.0[facility] on above:Order Comment: Specimen Type: BLOOD SPECIMENOrdering Facility: [facility] Address:[address] [place], [place] [address]Performed By: #### 08358-6, 76171-8 ####[facility]ENTERIA [id number] [place] [address] [place] AMERICAPhosphate SerPl-mCnc on 57-29-5136Xlalfvyry [Mass/Vol]4.4 mg/dLNormal2.7-4.8CAultman [facility] on above:Order Comment: Specimen Type: BLOOD SPECIMENOrdering Facility: [facility] Address:[address] [place], [place] [address]Performed By: #### 72854-5, 24245-6, 2777-1 ####[facility] [id number] [place] [address] [place] AMERICAXR ABDOMEN 1V SUPINEon 45-14-0489CY ABDOMEN 1V SUPINENormal [facility] - DublinaPTT PPPon 57-57-6510bUFZ Coag (PPP) [Time]28.2 s Cmcmum73.0-32.4CAultman [facility] on above:Order Comment: Specimen Type: BLOOD SPECIMENOrdering Facility: [facility] Address:[address] [place], [place] [address]Performed By: #### 38756-1, 01287-2 ####[facility] [id number] [address]CBC panel Auto (Bld)on 07-03-2024 Erythrocyte distribution width (RBC) [Ratio]14.5 %Dkcojn93.5-15.0[facility] on above:Order Comment: Specimen Type: BLOOD SPECIMENOrdering Facility: [facility] Address:[address] [place], [place] [address]Performed By: #### 29568-5 ####[facility] [id number] [address] OF [facility] TOWNSHIPHematocrit (Bld) [Volume fraction]48.4 %Asjgki55.0-51.0[facility] on above:Order Comment: Specimen Type: BLOOD SPECIMENOrdering Facility: [facility] Address:[address] [place], [place] [address]Performed By: #### [id number] ####[facility] [id number] [place] [address] [place] Hemoglobin (Bld) [Mass/Vol]15.7 g/mZAbhmcc12.0-17.0[facility] Comment on above:Order Comment: Specimen Type: BLOOD SPECIMENOrdering Facility: [facility] Address:[address] [place] [address] Performed By: #### [id number] ####[facility] [id number] [place] [address] [place] MCH (RBC) [Entitic mass]26.7 amHndemm86.0-34.0[facility] on above:Order Comment: Specimen Type: BLOOD SPECIMENOrdering Facility: [facility] Address:[address] [place] [address] Performed By: #### 06478-8 ####[facility] [id number] [place] [address] [place] MCHC (RBC) [Mass/Vol]32.4 g/nPTaqtlz35.5-36.0[facility] on above:Order Comment: Specimen Type: BLOOD SPECIMENOrdering Facility: [facility] Address:[address] [place] [address] Performed By: #### 07165-6 ####[facility] [id number] [place] [address] [place] MCV (RBC) [Entitic vol]82.5 zCXhcvse02.0-100.0[facility] on above:Order Comment: Specimen Type: BLOOD SPECIMENOrdering Facility: [facility] Address:[address] [place] [address] Performed By: #### 90745-4 ####[facility] [id number] [place] [address] [place] Nucleated RBC (Bld) [#/Vol]10*3/uLNormal<0.01[facility] on above:Order Comment: Specimen Type: BLOOD SPECIMENOrdering Facility: [facility] Address:[address] [place] [address] Performed By: #### 64286-0 ####[facility] [id number] [place] [address] [place] Platelet mean volume (Bld) [Entitic vol]10.9 fLNormal9.0-12.7CAult[facility] on above:Order Comment: Specimen Type: BLOOD SPECIMENOrdering Facility: [facility] Address:[address] [place], [place] [address]Performed By: #### 77997-8 ####[facility] [id number] [place] [id number] [place] Platelets (Bld) [#/Vol]143 10*3/yOYny026-281TjvfogaiuC[facility] Clinic [facility] on above:Order Comment: Specimen Type: BLOOD SPECIMENOrdering Facility: [facility] Address:[address] [place], [place] [address]Performed By: #### 83793-5 ####[facility] [id number] [place] [address] [place] AMERICARBC (Bld) [#/Vol]5.87 10*6/uLNormal4.20-6.00[facility] on above:Order Comment: Specimen Type: BLOOD SPECIMENOrdering Facility: [facility] Address:[address] [place], [place] [address]Performed By: #### 57368-2 ####[facility] [id number] [place] [address] [place] AMERICAWBC (Bld) [#/Vol]8.81 10*3/uL Normal3.70-11.00[facility] on above:Order Comment: Specimen Type: BLOOD SPECIMENOrdering Facility: [facility] Address:[address] [place], [place] [address]Performed By: #### 54717-7 ####[facility] [id number] [place] [id number] [place] STATES OF AMERICACONSULT PROGon 76-56-6616EZYUDNM PROGNormalSelect Medical [facility]health Rehabilitation Hospital - DublinComprehensive metabolic 2000 panelon 47-43-9351Jefqiux [Mass/Vol]3.8 g/dLLow3.9-4.9CAult[facility] on above:Order Comment: Specimen Type: BLOOD SPECIMENOrdering Facility: [facility] Address:[address] [place] [address] Performed By: #### 91616-1, 81757-8, 2776- ####[facility] [id number] AVENUESUTTER DAVIS HOSPITALK [address] [address] [place] AMERICAALP [Catalytic activity/Vol]95 U/ZDnqbkl89-168CyunohampSelect Medical [facility]health Rehabilitation Hospital - Dublin Comment on above:Order Comment: Specimen Type: BLOOD SPECIMENOrdering Facility: [facility] Address:[address] [place], [place] [address] Performed By: #### 92005-5, 68143-9, 2776- ####[facility] [id number] [address] [address] [place] AMERICAALT [Catalytic activity/Vol]133 U/GWaju79-05UrytntfnkSelect Medical [facility] Comment on above:Order Comment: Specimen Type: BLOOD SPECIMENOrdering Facility: [facility] Address:[address] [place], [place] [address] Performed By: #### 14563-3, , 2776-12 ####[facility] [id number] [address] [address] [place] AMERICAAnion gap [Moles/Vol]13 mmol/LNormal8-15[facility] - DublinComment on above:Order Comment: Specimen Type: BLOOD SPECIMENOrdering Facility: [facility] Address:[address] [place] [address] Performed By: #### 03474-1, , 2776-12 ####[facility] [id number] [address] [address] [place] AMERICAAST [Catalytic activity/Vol]70 U/XMims05-38IhguuetetSelect Medical [facility] Comment on above:Order Comment: Specimen Type: BLOOD SPECIMENOrdering Facility: [facility] Address:[address] [place] [address] Performed By: #### 97038-1, 52061-7, 2776- ####[facility] [id number], [place] [address] [place] AMERICABilirubin [Mass/Vol]1.1 mg/dLNormal0.2-1.3CRegional Medical Center Comment on above:Order Comment: Specimen Type: BLOOD SPECIMENOrdering Facility: [facility] Address:[address] [place] [address] Performed By: #### 63774-8, 89181-5, 2776- ####[facility] [id number], [place] [address] [place] AMERICACalcium [Mass/Vol]9.1 mg/dLNormal8.5-10.2ClevelECU Health North Hospital Comment on above:Order Comment: Specimen Type: BLOOD SPECIMENOrdering Facility: [facility] Address:[address] [place] [address] Performed By: #### 69166-3, 38765-1, 2776-12 ####[facility] [id number] [address] [place] AMERICAChloride [Moles/Vol]102 mmol/LHrxbbd03-921AlieozaegSelect Medical [facility] Comment on above:Order Comment: Specimen Type: BLOOD SPECIMENOrdering Facility: [facility] Address:[address] [place] [address] Performed By: #### 25723-5, 05186-0, 2776-12 ####[facility] [id number] [address] [place] AMERICACO2 [Moles/Vol]21 mmol/XIim68-52GaiywhqijSelect Medical Ohiohealth Rehabilitation Hospital - DublinComment on above:Order Comment: Specimen Type: BLOOD SPECIMENOrdering Facility: [facility] Address:[address] [place], [place] [address]Performed By: #### 04215-4, 33749-6, 2776- ####[facility] [id number] [place]IL[place] [address] [place] Creatinine [Mass/Vol]1.05 mg/dLNormal0.73-1.22[facility] on above:Order Comment: Specimen Type: BLOOD SPECIMENOrdering Facility: [facility] Address:[address] [place] [id number] Performed By: #### 47022-5, 07361-5, 2776-12 ####[facility] [id number][place] [address] [place] AMERICACreatinine and Glomerular filtration rate.predicted panel (S/P/Bld)96 mL/min/1.73m???Normal>=60[facility] on above:Order Comment: Specimen Type: BLOOD SPECIMENOrdering Facility: [facility] Address:[address] [place], [place] [address]Result Comment: Estimated Glomerular Filtration Rate (eGFR) is [...] not accurately reflect actual GFR.Performed By: #### 62152-2, , 2776-12 ####[facility] [id number] [address] [place] AMERICAGlucose [Mass/Vol]101 mg/dLHigh 74-99[facility] on above:Order Comment: Specimen Type: BLOOD SPECIMENOrdering Facility: [facility] Address:[address] [place], [place] [address]Bskuxa Comment: The [place] Diabetes Association (ADA) provides guidance for cutoff [...] Standards of Medical Care in Diabetes 2016, [place] [employer]. Diabetes Care. 2016.39(Suppl 1).Performed By: #### 42760- 8, , 2776-12 ####[facility] [id number] [place] [id number] [place] AMERICAPotassium [Moles/Vol] 3.9 mmol/LNormal3.7-5.1CAultman [facility] on above:Order Comment: Specimen Type: BLOOD SPECIMENOrdering Facility: [facility] Address:[address] [place], [place] [address]Performed By: #### 39632-9, , 2776-12 ####[facility] [id number] [address] [place] AMERICAProtein [Mass/Vol]6.5 g/dLNormal 6.3-8.0[facility] on above:Order Comment: Specimen Type: BLOOD SPECIMENOrdering Facility: [facility] Address:[address] [place], [place] [address]Performed By: #### 00456-2, , 2776-12 ####[facility] [id number] [address] [place] AMERICASodium [Moles/Vol]136 mmol/L Nbdutw066-360SlrdpbrygC[facility] Clinic [facility] on above:Order Comment: Specimen Type: BLOOD SPECIMENOrdering Facility: [facility] Address:[address] [place], [place] [address]Performed By: #### 38781-1, , 2776-12 ####[facility] [id number] [address] [address] [place] AMERICAUrea nitrogen [Mass/Vol]11 mg/dL Normal9-24[facility] on above:Order Comment: Specimen Type: BLOOD SPECIMENOrdering Facility: [facility] Address:[address] [place], [place] [address]Performed By: #### 53781-5, 70008-1, 2777-1 ####[facility] [id number] [place] [address] [place] AMERICAAlbumin [Mass/Vol]3.7 g/dLLow 3.9-4.9CAultman [facility] on above:Order Comment: Specimen Type: BLOOD SPECIMENOrdering Facility: [facility] Address:[address] [place], [place] [address]Performed By: #### 13096-7 ####[facility] [id number] [place] [address] [place] AMERICAALP [Catalytic activity/Vol]86 U/KYanklm91-004DxloqeretC[facility] Clinic [facility] on above:Order Comment: Specimen Type: BLOOD SPECIMENOrdering Facility: [facility] Address:[address] [place], [place] [address]Result Comment: Results may be falsely decreased due to interference from hemolysis. Suggest reorder as clinically indicated.Performed By: #### 83664-6 ####[facility] [id number] [place] [address] [place]ALT [Catalytic activity/Vol]137 U/HMjlf85-58MihtzbsnbC[facility] Clinic [facility] on above:Order Comment: Specimen Type: BLOOD SPECIMENOrdering Facility: [facility] Address:[address] [place], [place] [address]Result Comment: Results may be falsely increased due to interference from hemolysis. Suggest reorder as clinically indicated. Performed By: #### 94624-1 ####[facility] [id number] [place] [address] [place] Anion gap [Moles/Vol]11 mmol/LNormal8-15[facility] on above:Order Comment: Specimen Type: BLOOD SPECIMENOrdering Facility: [facility] Address:[address] [place], [place] [address]Performed By: #### 83710-2 ####[facility] [id number] [place] [address] [place] AMERICAAST [Catalytic activity/Vol]118 U/KCyeh39-48XcsrnojccSelect Medical [facility]health Rehabilitation Hospital - DublinComtr[facility] on above:Order Comment: Specimen Type: BLOOD SPECIMENOrdering Facility: [facility] Address:[address] [place], [place] [address]Result Comment: Results may be falsely increased due to interference from hemolysis. Suggest reorder as clinically indicated.Performed By: #### 77122-3 ####[facility] [id number] [place] [address] [place] AMERICABilirubin [Mass/Vol]1.0 mg/dLNormal0.2-1.3CRegional Medical Center Comment on above:Order Comment: Specimen Type: BLOOD SPECIMENOrdering Facility: [facility] Address:[address] [place] [address] Performed By: #### 61227-2 ####[facility] [id number] [place] [address] [place] Calcium [Mass/Vol]8.8 mg/dLNormal8.5-10.2CRegional Medical CenterComtrinity health oakland hospital on above:Order Comment: Specimen Type: BLOOD SPECIMENOrdering Facility: [facility] Address:[address] [place], [place] [address]Performed By: #### 06199-0 ####[facility] [id number] [place] [address] [place] AMERICAChloride [Moles/Vol] 100 mmol/IKgpupt65-343MqpxvvyriSelect Medical [facility] Rehabilitation Hospital - DublinComtrinity health [facility] on above:Order Comment: Specimen Type: BLOOD SPECIMENOrdering Facility: [facility] Address:[address] [place], [place] [address]Performed By: #### 41562-3 ####[facility] [id number] [place] [address] [place] AMERICACO2 [Moles/Vol]20 mmol/LRzm32-88 [facility] on above:Order Comment: Specimen Type: BLOOD SPECIMENOrdering Facility: [facility] Address:[address] [place], [place] [address]Performed By: #### 93137-1 ####[facility] LABNORTHE[facility] [id number] [place] [address] [place] [facility] TOWNSHIPCreatinine [Mass/Vol]0.98 mg/dLNormal0.73-1.22[facility] Comment on above:Order Comment: Specimen Type: BLOOD SPECIMENOrdering Facility: [facility] Address:[address] [place] [address] Performed By: #### 76840-2 ####[facility] [id number] [place] [address] [place] Creatinine and Glomerular filtration rate.predicted panel (S/P/Bld)104 mL/min/1.73m???Normal>=60[facility] on above:Order Comment: Specimen Type: BLOOD SPECIMENOrdering Facility: [facility] Address:[address] [place], [place] [address]Result Comment: Estimated Glomerular Filtration Rate (eGFR) is [...] not accurately reflect actual GFR.Performed By: #### 70199-5 ####[facility] [id number] [place] [address] [place] AMERICAGlucose [Mass/Vol]94 mg/dLNormal 74-99[facility] on above:Order Comment: Specimen Type: BLOOD SPECIMENOrdering Facility: [facility] Address:[address] [place], [place] [address]Result Comment: The [place] Diabetes Association (ADA) provides guidance for cutoff [...] Standards of Medical Care in Diabetes 2016, [place] [employer]. Diabetes Care. 2016.39(Suppl 1).Performed By: #### 87949-3 ####[facility] [id number] [place] [address] [place] AMERICAPotassium [Moles/Vol]Normal [facility] on above:Order Comment: Specimen Type: BLOOD SPECIMENOrdering Facility: [facility] Address:[address] [place], [place] [address]Result Comment: Unable to assay due to interference from hemolysis. Suggest reorder as clinically indicated.Performed By: #### 16878-8 ####[facility] [id number] [place] [address] [place] AMERICAProtein [Mass/Vol]6.5 g/dLNormal 6.3-8.0[facility] on above:Order Comment: Specimen Type: BLOOD SPECIMENOrdering Facility: [facility] Address:[address] [place], [place] [address]Performed By: #### 26018-8 ####[facility] [id number] [place] [address] [place] AMERICASodium [Moles/Vol]131 mmol/BNxu370-911ZkuixnjefC[facility] Clinic [facility] on above:Order Comment: Specimen Type: BLOOD SPECIMENOrdering Facility: [facility] Address:[address] [place], [place] [address]Performed By: #### 02415-7 ####[facility] [id number] [place] [address] [place] Urea nitrogen [Mass/Vol]11 mg/dLNormal9-24[facility] on above:Order Comment: Specimen Type: BLOOD SPECIMENOrdering Facility: [facility] Address:[address] [place], [place] [address]Performed By: #### 95058-9 ####[facility] [id number] [place] [address] [place] AMERICAECG COMPLETEon 58-94-9576ZFG COMPLETENormalCCleveland Clinic [facility] and Carbon monoxide panel (BldV)on 63-84-4530UESM DEFICIT, VENOUS-1 mmol/KStgutv-5-0IqjbnkvonC[facility] Clinic [facility] on above:Order Comment: Specimen Type: VENOUS BLOOD SPECIMENOrdering Facility: [facility] Address: [address] [place], [place] [address]Performed By: #### 86568-6 ####[facility] [id number] [place] [address] [place] AMERICABody fjquuveyita99.6 [degF]NormalC[facility] Clinic [facility] on above:Order Comment: Specimen Type: VENOUS BLOOD SPECIMENOrdering Facility: [facility] Address: [address] [place] [address] Performed By: #### 01080-0 ####[facility] [id number] [place] [address] [place] Calcium.ionized (Bld) [Mass/Vol]1.27 mmol/LNormal1.08-1.30[facility] on above:Order Comment: Specimen Type: VENOUS BLOOD SPECIMENOrdering Facility: [facility] Address: [address] [place], [place] [address]Performed By: #### 69035-6 ####[facility] [id number] [place] [address] [place]ICACalcium.ionized adjusted to pH 7.4 (BldA) [Moles/Vol]1.25 mmol/LNormal 1.08-1.30[facility] on above:Order Comment: Specimen Type: VENOUS BLOOD SPECIMENOrdering Facility: [facility] Ad dress: [address] [place], [place] [address]Performed By: #### 86913-8 ####[facility] [id number] [place] [address] [place] AMERICACarboxyhemoglobin (BldV) [Mass fraction]1.8 %Normal0.0-2.0[facility] on above:Order Comment: Specimen Type: VENOUS BLOOD SPECIMENOrdering Facility: [facility] Address: [address] [place], [place] [address]Result Comment: Carboxyhemoglobin Reference Range for Smokers: 2.0-8.0%Performed By: #### 15989- 4 ####[facility] [id number] [place] [address] [place] AMERICACO2 (BldV) [Partial pressure]42 mm[Hg]Qhwgty33-04CqsdsennoC[facility] Clinic [facility] on above:Order Comment: Specimen Type: VENOUS BLOOD SPECIMENOrdering Facility: [facility] Address: [address] [place], [place] [address]Performed By: #### 74525-6 ####[facility] [id number] [place] [address] [place] AMERICAGlucose [Mass/Vol]110 mg/mDMnqe72-941AylwrksqnC[facility] Clinic [facility] on above:Order Comment: Specimen Type: VENOUS BLOOD SPECIMENOrdering Facility: [facility] Address: [address] [place], [place] [address]Performed By: #### 33600-6 ####[facility] [id number] [place] [address] [place] AMERICAHCO3 (Bld) [Moles/Vol] 24 mmol/NNbcyng57-42UsyxwpeepC[facility] Clinic [facility] on above:Order Comment: Specimen Type: VENOUS BLOOD SPECIMENOrdering Facility: [facility] Address: [address] [place], [place] [address]Performed By: #### 61395-0 ####[facility] [id number] [place] [address] [place] AMERICAHematocrit (Bld) [Volume fraction]50.2 %Tuamjv51.0-51.0[facility] on above:Order Comment: Specimen Type: VENOUS BLOOD SPECIMENOrdering Facility: [facility] Address: [address] [place] [address] Performed By: #### 12326-2 ####[facility] [id number] [place] [address] [place] Hemoglobin (Bld) [Mass/Vol]16.4 g/pLGvdveq47.0-17.0[facility] Comment on above:Order Comment: Specimen Type: VENOUS BLOOD SPECIMENOrdering Facility: [facility] Address: [address] [place], [place] [address]Performed By: #### 85942-1 ####[facility] [id number] [place] [address] [place] Lactate [Moles/Vol]0.9 mmol/LNormal0.5-2.2CAultman [facility] on above:Order Comment: Specimen Type: VENOUS BLOOD SPECIMENOrdering Facility: [facility] Address: [address] [place] [address] Performed By: #### 55962-7 ####[facility] [id number] [place] [address] [place] LITERS2 Liters/minNormalClevelECU Health North HospitalComtrinity health [facility] hospital on above:Order Comment: Specimen Type: VENOUS BLOOD SPECIMENOrdering Facility: [facility] Address: [address] [place], [place] [address]Performed By: #### 23378-1 ####[facility]CL[facility] [id number] [place] [address] [place] AMERICAMethemoglobin (Bld) [Mass fraction]1.4 %Normal0.0-1.5CAultman [facility]rville [facility] on above: Order Comment: Specimen Type: VENOUS BLOOD SPECIMENOrdering Facility: [facility] Address: [address] [place], [place] [address]Performed By: #### 82856-0 ####[facility] [id number] [address] STATES OF AMERICAO2 THERAPYNC = Nasal CannulaNormalCAultman Orrville Hospital on above:Order Comment: Specimen Type: VENOUS BLOOD SPECIMENOrdering Facility: [facility] Ad dress: [address] [place], [place] [address]Performed By: #### 99788-7 ####[facility] [id number] [place] [address] [place] AMERICAOxygen (BldV) [Partial pressure] 55 mm[Hg]Xqtx18-37BaahvhobrC[facility] Clinic [facility] on above:Order Comment: Specimen Type: VENOUS BLOOD SPECIMENOrdering Facility: [facility] Address: [address] [place], [place] [address]Performed By: #### 75578-4 ####[facility] [id number] [place] [address] [place] AMERICAOxygen saturation in Venous blood85 %Qhbvhb59-71WzmkijmqzC[facility] Clinic [facility] on above:Order Comment: Specimen Type: VENOUS BLOOD SPECIMENOrdering Facility: [facility] Address: [address] [place], [place] [address]Performed By: #### 46141-4 ####[facility] [id number] [place] [address] [place] AMERICAOxyhemoglobin (BldV) [Mass fraction]83 %Iemdbl28-58HdxefxwysC[facility] Clinic [facility] on above:Order Comment: Specimen Type: VENOUS BLOOD SPECIMENOrdering Facility: [facility] Address: [address] [place], [place] [address]Performed By: #### 65983-5 ####[facility] [id number] [place] [address] [place] AMERICApH (BldV)7.37 [pH] Normal7.32-7.42[facility] on above:Order Comment: Specimen Type: VENOUS BLOOD SPECIMENOrdering Facility: [facility] Address: [address] [place], [place] [address]Performed By: #### 71764-8 ####[facility] [id number] [place] [address] [place] AMERICAPotassium [Moles/Vol] 3.7 mmol/LNormal3.5-5.0[facility] on above:Order Comment: Specimen Type: VENOUS BLOOD SPECIMENOrdering Facility: [facility] Address: [address] [place], [place] [address]Performed By: #### 52909-4 ####[facility] [id number] [place] [address] [place] AMERICASodium [Moles/Vol]135 mmol/DDti486-961JrpetkveaC[facility] Clinic [facility] on above:Order Comment: Specimen Type: VENOUS BLOOD SPECIMENOrdering Facility: [facility] Address: [address] [place], [place] [address]Performed By: #### 68342-1 ####[facility] [id number] [place] [address] [place] AMERICABASE DEFICIT, VENOUS-1 mmol/MQrmlbj-1-1ZpfdpcbphC[facility] Clinic [facility] on above:Order Comment: Specimen Type: VENOUS BLOOD SPECIMENOrdering Facility: [facility] Address: [address] [place], [place] [address]Performed By: #### 74770-5 ####[facility] [id number] [place] [address] [place] AMERICABody btwldvmmjin45.78 [degF]NormalCleveland Clinic [facility] on above:Order Comment: Specimen Type: VENOUS BLOOD SPECIMENOrdering Facility: [facility] Ad dress: [address] [place], [place] [address]Performed By: #### 43070-8 ####[facility] [id number] [place] [address] [place] AMERICACalcium.ionized (Bld) [Mass/Vol] 1.09 mmol/LNormal1.08-1.30[facility] on above:Order Comment: Specimen Type: VENOUS BLOOD SPECIMENOrdering Facility: [facility] Address: [address] [place], [place] [address]Performed By: #### 99741-0 ####[facility] [id number] [place] [address] [place] AMERICACalcium.ionized adjusted to pH 7.4 (BldA) [Moles/Vol]1.07 mmol/LLow1.08-1.30[facility] on above:Order Comment: Specimen Type: VENOUS BLOOD SPECIMENOrdering Facility: [facility] Address: [address] [place], [place] [address]Performed By: #### [id number] ####[facility] [id number] [place] [id number] [place] OF AMERICACarboxyhemoglobin (BldV) [Mass fraction]1.7 %Normal0.0-2.0[facility] on above:Order Comment: Specimen Type: VENOUS BLOOD SPECIMENOrdering Facility: [facility] Address: [address] [place], [place] [address]Result Comment: Carboxyhemoglobin Reference Range for Smokers: 2.0-8.0%Performed By: #### [id number] ####[facility] [id number] [address] [address] [place] OF AMERICACO2 (BldV) [Partial pressure]42 mm[Hg]Wepyyc10-67BmanxnrjqC[facility] Clinic [facility] on above:Order Comment: Specimen Type: VENOUS BLOOD SPECIMENOrdering Facility: [facility] Address: [address] [place], [place] [address]Performed By: #### 05533-4 ####[facility] [id number] [address] [address] [place] AMERICACO2 adjusted to patient's actual temperature (BldV) [Partial pressure]42 auRgFqykuy28-95OqmhukvlsC[facility] Clinic [facility] on above:Order Comment: Specimen Type: VENOUS BLOOD SPECIMENOrdering Facility: [facility] Address: [address] [place], [place] [address]Performed By: #### 57435-2 ####[facility]IA [id number] [place] [id number] [place] AMERICADATE/TIME NOTIFIED [id number] AMNormalCleveland Clinic [facility] on above:Order Comment: Specimen Type: VENOUS BLOOD SPECIMENOrdering Facility: [facility] Address: [address] [place], [place] [address]Performed By: #### 68290-0 ####[facility] [id number] [address] [address] [place] AMERICAGlucose [Mass/Vol]106 mg/kEZpkr30-381IfsvkmrqnC[facility] Clinic [facility] on above:Order Comment: Specimen Type: VENOUS BLOOD SPECIMENOrdering Facility: [facility] Address: [address] [place], [place] [address]Performed By: #### 57348-3 ####[facility] [id number] [address] [address] [place] AMERICAHCO3 (Bld) [Moles/Vol] 23 mmol/HGxf92-32XyldvnaayCleveland Clinic [facility] on above:Order Comment: Specimen Type: VENOUS BLOOD SPECIMENOrdering Facility: [facility] Address: [address] [place], [place] [address]Performed By: #### 13058-6 ####[facility]ENTERIA [id number] [place] [address] [place] AMERICAHematocrit (Bld) [Volume fraction]47.1 %Deiupw54.0-51.0[facility] - DublinComment on above:Order Comment: Specimen Type: VENOUS BLOOD SPECIMENOrdering Facility: [facility] Address: [address] [place] [address] Performed By: #### 60536-7 ####[facility] [id number] [place] [address] [place] Hemoglobin (Bld) [Mass/Vol]15.4 g/eFWomuyk45.0-17.0[facility] Comment on above:Order Comment: Specimen Type: VENOUS BLOOD SPECIMENOrdering Facility: [facility] Address: [address] [place], [place] [address]Performed By: #### 35692-6 ####[facility] [id number] [place] [address] [place] Lactate [Moles/Vol]1.4 mmol/LNormal0.5-2.2CRegional Medical CenterComment on above:Order Comment: Specimen Type: VENOUS BLOOD SPECIMENOrdering Facility: [facility] Address: [address] [place] [address] Performed By: #### 96454-9 ####[facility] [id number] [place] [address] [place] Methemoglobin (Bld) [Mass fraction]1.3 %Normal0.0-1.5CRegional Medical Center Comment on above:Order Comment: Specimen Type: VENOUS BLOOD SPECIMENOrdering Facility: [facility] Address: [address] [place], [place] [address]Performed By: #### 21005-5 ####[facility] [id number] [address] [address] [place] NOTIFIED WHOMS Terence DUARTE G053 Poppy [facility] on above:Order Comment: Specimen Type: VENOUS BLOOD SPECIMENOrdering Facility: [facility] Address: [address] [place], [place] [address] Performed By: #### 68704-0 ####[facility] [id number] [place] [address] [place] O2 THERAPYRA=Room AirMartins Ferry [facility] on above:Order Comment: Specimen Type: VENOUS BLOOD SPECIMENOrdering Facility: [facility] Address: [address] [place], [place] [address]Performed By: #### 36020-1 ####[facility] [id number] [place] [address] [place] AMERICAOxygen (BldV) [Partial pressure]62 mm[Hg]Qnyw77-62FucqunbdcC[facility] Clinic [facility] on above:Order Comment: Specimen Type: VENOUS BLOOD SPECIMENOrdering Facility: [facility] Address: [address] [place], [place] [address]Performed By: #### 27566-1 ####[facility] [id number] [place] [address] [place] AMERICAOxygen adjusted to patient's actual temperature (BldV) [Partial pressure]63 jaJnBpit68-38PjjtxbfqcC[facility] Clinic [facility] on above:Order Comment: Specimen Type: VENOUS BLOOD SPECIMENOrdering Facility: [facility] Address: [address] [place], [place] [address]Performed By: #### 99511-0 ####[facility] [id number] [address] [address] [place] OF AMERICAOxygen saturation in Venous blood91 %Gnmx01-91WowxbytkqSelect Medical [facility] Comment on above:Order Comment: Specimen Type: VENOUS BLOOD SPECIMENOrdering Facility: [facility] Address: [address] [place], [place] [address]Performed By: #### 24224-8 ####[facility] [id number] [place] [address] [place] Oxyhemoglobin (BldV) [Mass fraction]89 %Aovi61-21XwdlhhlpoSelect Medical [facility] Comment on above:Order Comment: Specimen Type: VENOUS BLOOD SPECIMENOrdering Facility: [facility] Address: [address] [place], [place] [address]Performed By: #### 83509-1 ####[facility] [id number] [place] [address] [place] pH (BldV)7.37 [pH]Normal7.32-7.42[facility] - DublinComment on above: Order Comment: Specimen Type: VENOUS BLOOD SPECIMENOrdering Facility: [facility] Address: [address] [place], [place] [address]Performed By: #### 47676-3 ####[facility] [id number] [place] [address] [place] AMERICApH adjusted to patient's actual temperature (BldV)7.28Lrwvkh7.32-7.42[facility] Comment on above:Order Comment: Specimen Type: VENOUS BLOOD SPECIMENOrdering Facility: [facility] Address: [address] [place], [place] [address]Performed By: #### 62739-2 ####[facility] [id number] [place] [address] [place] Potassium [Moles/Vol]NormalSelect Medical Ohiohealth Rehabilitation Hospital - DublinComment on above:Order Comment: Specimen Type: VENOUS BLOOD SPECIMENOrdering Facility: [facility] Address: [address] [place], [place] [address]Result Comment: Unable to assay due to interference from hemolysis. Suggest reorder as clinically in dicated.Performed By: #### 79817-8 ####[facility] [id number] [place] [address] [place] Sodium [Moles/Vol]126 mmol/DLki761-352EzcyjtyivC[facility] Clinic [facility] on above:Order Comment: Specimen Type: VENOUS BLOOD SPECIMENOrdering Facility: [facility] Address: [address] [place] [address] Performed By: #### 93840-7 ####[facility] [id number] [place] [address] [place] HISTORY PHYSICALon 02-07-4402ZCAIDFB PHYSICALNormalCRegional Medical Center MEDICAL EMERon 77-66-3343LOMMFXW EMERNormalCRegional Medical CenterMagnesium SerPl-mCncon 57-93-3074Ltuojbqqd [Mass/Vol]1.8 mg/dLNormal1.7-2.3CAult[facility] on above:Order Comment: Specimen Type: BLOOD SPECIMENOrdering Facility: [facility] Address:[address] [place], [place] [address]Performed By: #### 00153-5, 03587-0, 2777-1 ####[facility] [id number], [place] [address] [place] AMERICAPT panel Coag (PPP)on 75-51-2641XLA Coag (PPP) [Relative time]1.0 {INR}Normal0.9-1.3CAultman [facility]rville [facility] on above: Order Comment: Specimen Type: BLOOD SPECIMENOrdering Facility: [facility] Address:[address] [place], [place] [address]Result Comment: Vitamin K Antagonist (VKA) Therapeutic Range: INR 2 to 3 (Target INR of 2.5)Note: For patients treated with VKA drugs, such as warfarin, the [place] [employer] 2012 Guideline recommends [...] al. Chest 2012, 141:7S-47SAdriana RA, et al. [facility] 2017, 70: 252-289Performed By: #### 08129-0, 81550-3 ####[facility] [id number] [place] [address] [place] AMERICAPT Coag (PPP) [Time] 11.0 sNormal9.7-13.0[facility] DublinComtr[facility] on above:Order Comment: Specimen Type: BLOOD SPECIMENOrdering Facility: [facility] Address:[address] [place], [place] [address]Performed By: #### 58412-3, 12086-4 ####[facility] LABCLIA [id number] [address] STATES OF AMERICAINR Coag (PPP) [Relative time]1.0 {INR}Normal0.9-1.3CRegional Medical CenterComtrinity health oakland hospital on above:Order Comment: Specimen Type: BLOOD SPECIMENOrdering Facility: [facility] Address:[address] [place], [place] [address]Result Comment: Vitamin K Antagonist (VKA) Therapeutic Range: INR 2 to 3 (Target INR of 2.5)Note: For patients treated with VKA drugs, such as warfarin, the [place] [employer] 2012 Guideline recommends [...] al. Chest 2012, 141:7S-47SNishimura RA, et al. [facility] 2017, 70: 252-289Performed By: #### 55333-9 ####[facility] [id number] [place] [address] [place] AMERICAPT Coag (PPP) [Time] 11.0 sNormal9.7-13.0[facility] - DublinComment on above:Order Comment: Specimen Type: BLOOD SPECIMENOrdering Facility: [facility] Address:[address] [place], [place] [address]Performed By: #### 20858-5 ####[facility] LAB[facility] [id number] [place] [address] [place] AMERICAPhosphate SerPl-mCncon 07-03-2024 Phosphate [Mass/Vol]3.0 mg/dLNormal2.7-4.8CRegional Medical CenterComment on above:Order Comment: Specimen Type: BLOOD SPECIMENOrdering Facility: [facility] Address:[address] [place], [place] [address]Performed By: #### 91781-2, 45620-9, 2777-1 ####[facility] LABIA [id number] [address] [place] STAPHYLOCOCCUS AUREUS AND MRSA SCREEN, PCR, NASALon 07-03-2024S. aureus and MRSA panel GERMÁN+probe (Nose)Not detectedNormalNot DetectedSelect Medical [facility] Comment on above:Order Comment: Specimen Type: SWABOrdering Facility: [facility] Address: [address] [place], [place] [address]Performed By: #### SAPCR ####[facility] [id number] [place] [address] [place] AMERICATHERAPY NTon 77-17-6477JWPGHWA NTNormalCRegional Medical CenterXR ABDOMEN 1V SUPINEon 14-18-8503EX ABDOMEN 1V SUPINENormalClevelECU Health North HospitalXR ABDOMEN 1V SUPINENormalCRegional Medical CenterXR CHEST 1V FRONTAL PORTon 43-76-9755OE CHEST 1V FRONTAL PORTNormalCRegional Medical CenteraPTT PPPon 32-85-7148mIEC Coag (PPP) [Time]28.1 wCtacdw86.0-32.4ClevelOhio State Health System on above:Order Comment: Specimen Type: BLOOD SPECIMENOrdering Facility: [facility] Address:[address] [place], [place] [address]Performed By: #### 67219-9, 60227-8 ####[facility] [id number] [place] [address] [place] AMERICABasic metabolic 2000 panelon 56-47-0463Vtrvt gap [Moles/Vol]16 mmol/LHigh8-15[facility] on above:Order Comment: Specimen Type: BLOOD SPECIMENOrdering Facility: [facility] Address:[address] [place], [place] [address]Performed By: #### 40763-1, 15532-4, 75374-8, 2777-1 ####[facility] [id number] [place] [id number] [place] AMERICACalcium [Mass/Vol]8.8 mg/dLNormal8.5-10.2CAultman [facility] on above:Order Comment: Specimen Type: BLOOD SPECIMENOrdering Facility: [facility] Address:[address] [place], [place] [address]Performed By: #### 21561-0, 54307-9, 54451-1, 2777-1 ####[facility] [id number] [place] [address] [place] AMERICAChloride [Moles/Vol]101 mmol/L Xtbrpv80-748SgbyjxpzxCleveland Clinic [facility] on above:Order Comment: Specimen Type: BLOOD SPECIMENOrdering Facility: [facility] Address:[address] [place], [place] [address]Performed By: #### 89415-1, 36030-0, , 2776-12 ####[facility] [id number] [place] [address] [place] AMERICACO2 [Moles/Vol]18 mmol/ZDko87-58 [facility] on above:Order Comment: Specimen Type: BLOOD SPECIMENOrdering Facility: [facility] Address:[address] [place], [place] [address]Performed By: #### 05312-5, 02620-7, , 2776-12 ####[facility] [id number] [place] [address] [place] AMERICACreatinine [Mass/Vol]0.99 mg/dL Normal0.73-1.22[facility] on above:Order Comment: Specimen Type: BLOOD SPECIMENOrdering Facility: [facility] Address:[address] [place], [place] [address]Performed By: #### 42309-5, 48390-0, , 2776-12 ####[facility] [id number] [place] [address] [place] AMERICACreatinine and Glomerular filtration rate.predicted panel (S/P/Bld)103 mL/min/1.73m???Normal >=60[facility] on above:Order Comment: Specimen Type: BLOOD SPECIMENOrdering Facility: [facility] Address:[address] [place], [place] [address]Result Comment: Estimated Glomerular Filtration Rate (eGFR) is calculated using the 2020 CKD-EPI creatinine equation. This equation utilizes serum creatinine, sex, and age as parameters. The creatinine assay has traceable calibration to isotope dilution-mass spectrometry. Refer to KDIGO guidelines for clinical interpretation. In patients with unstable renal function, e.g. those with acute kidney injury, the eGFR may not accurately reflect actual GFR.Performed By: #### 95223-8, 09708-6, , 2776-12 ####[facility] [id number] [address] [address] [place] AMERICAGlucose [Mass/Vol]91 mg/dLNormal 74-99[facility] on above:Order Comment: Specimen Type: BLOOD SPECIMENOrdering Facility: [facility] Address:[address] [place], [place] [address]Result Comment: The [place] [employer] Association (ADA) provides guidance for cutoff [...] Standards of Medical Care in Diabetes 2016, [place] [employer]. Diabetes Care. 2016.39(Suppl 1).Performed By: #### 39702- 2, 04594-2, , 2776-12 ####[facility] [id number] [place] [address] [place] Potassium [Moles/Vol]NormalC[facility] Clinic [facility] on above:Order Comment: Specimen Type: BLOOD SPECIMENOrdering Facility: [facility] Address:[address] [place], [place] [address]Result Comment: Unable to assay due to interference from hemolysis. Suggest reorder as clinically in dicated.Performed By: #### 40900-2, 84636-5, , 2776-12 ####[facility] [id number] [place] [address] [place] AMERICASodium [Moles/Vol]135 mmol/MErn095-755YumjmsxeyC[facility] Clinic [facility] on above:Order Comment: Specimen Type: BLOOD SPECIMENOrdering Facility: [facility] Address:[address] [place], [place] [address]Performed By: #### 13567-2, 43445-6, 08360-4, 2777-1 ####[facility] [id number] [place] [address] [place] AMERICAUrea nitrogen [Mass/Vol]11 mg/dL Normal9-24[facility] on above:Order Comment: Specimen Type: BLOOD SPECIMENOrdering Facility: [facility] Address:[address] [place], [place] [address]Performed By: #### 03474-1, 82431-8, 72662-0, 2777- ####[facility] [id number] [place] [address] [place] AMERICACASE MANAGEMon 96-77-6589NSMS MANAGEMNormalLakeHealth Beachwood Medical Center W Auto Differential panel (Bld)on 03-76-5971Eohjbqypn (Bld) [#/Vol]0.08 10*3/uLNormal<0.11ClevelOhio State Health System on above:Order Comment: Specimen Type: BLOOD SPECIMENOrdering Facility: [facility] Address:[address] [place], [place] [address]Performed By: #### 81464-6 ####[facility] [id number] [place] [address] [place] Basophils/100 WBC (Bld)0.8 %NormalC[facility] Clinic [facility] on above: Order Comment: Specimen Type: BLOOD SPECIMENOrdering Facility: [facility] Address:[address] [place], [place] [address]Performed By: #### 91440- 8 ####[facility] [id number] [place] [address] [place] AMERICADifferential cell count method Nom (Bld)AutoNormalClevelOhio State Health System on above:Order Comment: Specimen Type: BLOOD SPECIMENOrdering Facility: [facility] Address:[address] [place], [place] [address]Performed By: #### 15528-5 ####[facility] [id number] [place] [address] [place] AMERICAEosinophils (Bld) [#/Vol]0.59 10*3/uLHigh<0.46[facility] on above:Order Comment: Specimen Type: BLOOD SPECIMENOrdering Facility: [facility] Address:[address] [place], [place] [address]Performed By: #### 19336-0 ####[facility] [id number] [place] [address] [place] AMERICAEosinophils/100 WBC (Bld)5.8 % NormalC[facility] Clinic [facility] on above:Order Comment: Specimen Type: BLOOD SPECIMENOrdering Facility: [facility] Address:[address] [place], [place] [address]Performed By: #### 73404-8 ####[facility] [id number] [place] [address] [place] AMERICAErythrocyte distribution width (RBC) [Ratio]14.7 %Normal 11.5-15.0[facility] on above:Order Comment: Specimen Type: BLOOD SPECIMENOrdering Facility: [facility] Address:[address] [place], [place] [address]Performed By: #### 38196-1 ####[facility] [id number] [place] [address] [place] AMERICAHematocrit (Bld) [Volume fraction]50.2 %Waxsev79.0-51.0 [facility] on above:Order Comment: Specimen Type: BLOOD SPECIMENOrdering Facility: [facility] Address:[address] [place], [place] [address]Performed By: #### 53514-6 ####[facility] [id number] [place] [address] [place] AMERICAHemoglobin (Bld) [Mass/Vol]15.6 g/sXFdgvum44.0-17.0[facility] - DublinComment on above:Order Comment: Specimen Type: BLOOD SPECIMENOrdering Facility: [facility] Address:[address] [place], [place] [address]Performed By: #### 83676-5 ####[facility] [id number] [place] [address] [place] Immature granulocytes (Bld) [#/Vol]0.07 10*3/uLNormal<0.10[facility] - DublinComment on above:Order Comment: Specimen Type: BLOOD SPECIMENOrdering Facility: [facility] Address:[address] [place], [place] [address]Performed By: #### 48687-7 ####[facility] [id number] [place] [address] [place] Immature granulocytes/100 WBC (Bld)0.7 %[facility] on above:Order Comment: Specimen Type: BLOOD SPECIMENOrdering Facility: [facility] Address:[address] [place] [address] Performed By: #### 39037-3 ####[facility] [id number] [place] [address] [place] Lymphocytes (Bld) [#/Vol]1.51 10*3/uLNormal1.00-4.00[facility] Comment on above:Order Comment: Specimen Type: BLOOD SPECIMENOrdering Facility: [facility] Address:[address] [place] [address] Performed By: #### 03784-1 ####[facility] [id number] [place] [address] [place] Lymphocytes/100 WBC (Bld)14.9 %NormalC[facility] Clinic [facility] on above: Order Comment: Specimen Type: BLOOD SPECIMENOrdering Facility: [facility] Address:[address] [place], [place] [address]Performed By: #### 56938- 8 ####[facility] [id number] [address] (RBC) [Entitic mass]26.6 pg Jriapv34.0-34.0[facility] on above:Order Comment: Specimen Type: BLOOD SPECIMENOrdering Facility: [facility] Address:[address] [place], [place] [address]Performed By: #### 83206-4 ####[facility] [id number] [address]HC (RBC) [Mass/Vol]31.1 g/dL Vyheey60.5-36.0[facility] on above:Order Comment: Specimen Type: BLOOD SPECIMENOrdering Facility: [facility] Address:[address] [place], [place] [address]Performed By: #### 32883-1 ####[facility] [id number] [address] (RBC) [Entitic vol]85.5 fL Qifatu85.0-100.0[facility] on above:Order Comment: Specimen Type: BLOOD SPECIMENOrdering Facility: [facility] Address:[address] [place], [place] [address]Performed By: #### 10738-1 ####[facility] [id number] [address]Monocytes (Bld) [#/Vol]0.89 10*3/uLHigh<0.87[facility] on above:Order Comment: Specimen Type: BLOOD SPECIMENOrdering Facility: [facility] Address:[address] [place], [place] [address]Performed By: #### 83999-9 ####[facility] [id number] [place] [address] [place] AMERICAMonocytes/100 WBC (Bld)8.8 % NormalC[facility] Clinic [facility] on above:Order Comment: Specimen Type: BLOOD SPECIMENOrdering Facility: [facility] Address:[address] [place], [place] [address]Performed By: #### 24654-0 ####[facility] [id number] [place] [address] [place] AMERICANeutrophils (Bld) [#/Vol]6.97 10*3/uLNormal1.45-7.50[facility] on above:Order Comment: Specimen Type: BLOOD SPECIMENOrdering Facility: [facility] Address:[address] [place], [place] [address]Performed By: #### 72431-3 ####[facility] [id number] [place] [address] [place] AMERICANeutrophils/100 WBC (Bld)69.0 %NormalCleveland Clinic [facility] on above:Order Comment: Specimen Type: BLOOD SPECIMENOrdering Facility: [facility] Address:[address] [place] [address] Performed By: #### 48821-5 ####[facility] [id number] [place] [address] [place] Nucleated RBC (Bld) [#/Vol]10*3/uLNormal<0.01[facility] on above:Order Comment: Specimen Type: BLOOD SPECIMENOrdering Facility: [facility] Address:[address] [place] [address] Performed By: #### 92580-7 ####[facility] [id number] [place] [address] [place] Nucleated RBC/100 WBC (Bld) [Ratio]0.0 /100 WBCNormalCRegional Medical Center Comment on above:Order Comment: Specimen Type: BLOOD SPECIMENOrdering Facility: [facility] Address:[address] [place] [address] Performed By: #### 98587-5 ####[facility] [id number] [place] [address] [place] Platelet mean volume (Bld) [Entitic vol]11.6 fLNormal9.0-12.7CAultman [facility]rville [facility] on above:Order Comment: Specimen Type: BLOOD SPECIMENOrdering Facility: [facility] Address:[address] [place], [place] [address]Performed By: #### 93676-3 ####[facility] [id number] [place] [address] [place] Platelets (Bld) [#/Vol]121 10*3/aCDnq153-303NxmhncbeiCleveland Clinic [facility] on above:Order Comment: Specimen Type: BLOOD SPECIMENOrdering Facility: [facility] Address:[address] [place], [place] [address]Result Comment: Results checked and verified.No clot detected.Performed By: #### [id number] ####[facility] [id number] [place] [address] [place] AMERICARBC (Bld) [#/Vol]5.87 10*6/uL Normal4.20-6.00[facility] on above:Order Comment: Specimen Type: BLOOD SPECIMENOrdering Facility: [facility] Address:[address] [place], [place] [address]Performed By: #### [id number] ####[facility] [id number] [place] [address] [place] AMERICAWBC (Bld) [#/Vol]10.11 10*3/uL Normal3.70-11.00[facility] on above:Order Comment: Specimen Type: BLOOD SPECIMENOrdering Facility: [facility] Address:[address] [place], [place] [address]Performed By: #### 94477-7 ####[facility] [id number] [address] [address] [place] OF AMERICACONSULT PROGon 26-93-8860OPSKKZT PROGNormalSelect Medical [facility] Hospital - DublinHepatic function 2000 panelon 07-02-2024 Albumin [Mass/Vol]3.8 g/dLLow3.9-4.9CA[facility] on above: Order Comment: Specimen Type: BLOOD SPECIMENOrdering Facility: [facility] Address:[address] [place], [place] [address]Performed By: #### 62105- 2, 91306-3, , 2776- ####[facility] [id number] [place] [id number] [place] AMERICAALP [Catalytic activity/Vol]97 U/KHnklku15-046IpkrijgkuC[facility] Clinic [facility] on above:Order Comment: Specimen Type: BLOOD SPECIMENOrdering Facility: [facility] Address:[address] [place], [place] [address]Result Comment: Results may be falsely decreased due to interference from hemolysis. Suggest reorder as clinically indicated.Performed By: #### 74167-8, 06900-8, 60942-9, 7-1 ####[facility] [id number] [place] [id number] [place] AMERICAALT [Catalytic activity/Vol]172 U/NMwlx10-55VbhylxroqC[facility] Clinic [facility] on above:Order Comment: Specimen Type: BLOOD SPECIMENOrdering Facility: [facility] Address:[address] [place], [place] [id number] Comment: Results may be falsely increased due to interference from hemolysis. Suggest reorder as clinically indicated. Performed By: #### 25058-9, 09106-8, 85364-8, 7-1 ####[facility] [id number] [place] [id number] [place] AMERICAAST [Catalytic activity/Vol]132 U/HMvtl85-98GkzvjbyklC[facility] on above:Order Comment: Specimen Type: BLOOD SPECIMENOrdering Facility: [facility] Address:[address] [place], [place] [address]Result Comment: Results may be falsely increased due to interference from hemolysis. Suggest reorder as clinically indicated.Performed By: #### 59084-9, 79169-0, , 2776- ####[facility] [id number] [address] STATES OF AMERICABilirubin [Mass/Vol]1.0 mg/dLNormal0.2-1.3CAult[facility] on above:Order Comment: Specimen Type: BLOOD SPECIMENOrdering Facility: [facility] Address:[address] [place], [place] [address]Performed By: #### 73775- 2, 66917-3, , 2776-12 ####[facility] [id number] [place] [address] [place] Bilirubin.conjugated [Mass/Vol]mg/dLNormal<0.2CA[facility] on above:Order Comment: Specimen Type: BLOOD SPECIMENOrdering Facility: [facility] Address:[address] [place], [place] [address]Result Comment: Results may be falsely decreased due to interference from hemolysis. Suggest reorder as clinically indicated.Performed By: #### 89421-9, 03155-9, , 2776-12 ####[facility] [id number] [place] [address] [place] AMERICAProtein [Mass/Vol]6.7 g/dLNormal6.3-8.0[facility] on above:Order Comment: Specimen Type: BLOOD SPECIMENOrdering Facility: [facility] Address:[address] [place], [place] [address]Performed By: #### 35117-3, 49374-2, 45652-5, 2776- ####[facility] [id number] [place] [address] [place] AMERICAMagnesium SerPl-mCncon 16-16-4800Ssmnswwol [Mass/Vol]2.0 mg/dLNormal1.7-2.3CRegional Medical Center Comment on above:Order Comment: Specimen Type: BLOOD SPECIMENOrdering Facility: [facility] Address:[address] [place] [address] Performed By: #### 81262-6, 66386-5, , 2776-12 ####[facility] [id number] [place] [address] [place] AMERICAPhosphate SerPl-mCncon 44-65-6100Vogtangaj [Mass/Vol]3.0 mg/dL Normal2.7-4.8CRegional Medical CenterComment on above:Order Comment: Specimen Type: BLOOD SPECIMENOrdering Facility: [facility] Address:[address] [place], [place] [address]Performed By: #### 49526-2, 33671-0, , 2776-12 ####[facility] [id number] [place] [address] [place] AMERICATOXICOLOGY PANEL BLDon 26-17-9612Wuwbvcshguzuo [Mass/Vol]ug/wDNxs64-73VvvmrfxxlSelect Medical [facility]health Rehabilitation Hospital - DublinComtrinity [facility] on above:Order Comment: Specimen Type: BLOOD SPECIMENOrdering Facility: [facility] Address:[address] [place], [place] [address]Result Comment: Toxic > 150 ug/mL 4 hours post ingestionThe Jhoana Gordon nomogram can be used to estimate the probability of hepatotoxicity via the relationship of plasma acetaminophen concentration to the post ingestion interval. (Sonia. Pediatrics. 1975. 55:871 to 876 and Jhoanaet al. Arch Tower Crane Operator Med. 1981. 141:380 to 385).Reference ranges and high/low indicator flags are provided as general guidelines only. The treating physician must determine appropriate target levels/dosing based on the specific clinical situation.Performed By: #### TOXP ####[facility] [id number] [place] [address] [place] AMERICAEthanol [Mass/Vol]mg/dLNormal<11 [facility] on above:Order Comment: Specimen Type: BLOOD SPECIMENOrdering Facility: [facility] Address:[address] [place], [place] [address]Performed By: #### TOXP ####[facility] [id number] [place] [address] [place] AMERICASalicylates [Mass/Vol]mg/dLLow3.0-30.0[facility] on above:Order Comment: Specimen Type: BLOOD SPECIMENOrdering Facility: [facility] Address:[address] [place], [place] [address]Result Comment: The therapeutic range varies and has been reported to be 3.0 to 10.0 mg/dL for antipyretic/analgesic conditions and 15.0 to 30.0 mg/dL for anti inflammatory/rheumatic fever conditions. Ranges published by the instrument preschool adviser.Reference ranges and high/low indicator flags areprovided as general guidelines only. The treating physician must determine appropriate target levels/dosing based on the specific clinical situation.Performed By: #### TOXP ####[facility] [id number] [place] [address] [place] AMERICATOXICOLOGY SCREEN, ROUTINE URINE on 34-07-9900Djhrqphftlbe Confirm (U) [Mass/Vol]PositiveAbnormalNegative [facility] on above:Order Comment: Specimen Type: URINE SPECIMENOrdering Facility: [facility] Address:[address] [place], [place] [address]Result Comment: Cutoff threshold at 1000 ng/mL.Performed By: #### UTOX2 ####[facility] [id number] [place] [address] [place] AMERICABARBITURATES, URINE NegativeNormalNegativeC[facility] on above:Order Comment: Specimen Type: URINE SPECIMENOrdering Facility: [facility] Address:[address] [place], [place] [address]Result Comment: Cutoff threshold at 200 ng/mL.Performed By: #### UTOX2 ####[facility] [id number] [place] [address] [place] BENZODIAZEPINES, URPositiveAbnormalNegativeCleGreen Cross Hospital on above:Order Comment: Specimen Type: URINE SPECIMENOrdering Facility: [facility] Address:[address] [place], [place] [address]Result Comment: Cutoff threshold at 200 ng/mL.Performed By: #### UTOX2 ####[facility] [id number] [place] [address] [place] AMERICACannabinoids Screen Ql (U)PositiveAbnormalNegativeC[facility] Clinic [facility] on above:Order Comment: Specimen Type: URINE SPECIMENOrdering Facility: [facility] Address:[address] [place], [place] [address]Result Comment: Cutoff threshold at 50 ng/mL.Performed By: #### UTOX2 ####[facility] [id number] [address] STATES OF AMERICACocaine Ql (U)Negative NormalNegativeC[facility] Clinic [facility] on above:Order Comment: Specimen Type: URINE SPECIMENOrdering Facility: [facility] Address:[address] [place], [place] [address]Result Comment: Cutoff threshold at 300 ng/mL. Performed By: #### UTOX2 ####[facility] [id number] [place] [address] [place] AMERICAEthanol (U) [Mass/Vol]<11Normal<11ClevelOhio State Health System on above:Order Comment: Specimen Type: URINE SPECIMENOrdering Facility: [facility] Address:[address] [place], [place] [address]Performed By: #### UTOX2 ####[facility] [id number] [address] STATES OF [facility] TOWNSHIPOpiates Screen Ql (U)Positive AbnormalNegativeC[facility] Clinic [facility] on above:Order Comment: Specimen Type: URINE SPECIMENOrdering Facility: [facility] Address:[address] [place], [place] [address]Result Comment: Cutoff threshold at 300 ng/mL.Performed By: #### UTOX2 ####[facility] [id number] [address] [place] oxyCODONE cutoff Screen (U) [Mass/Vol]PositiveAbnormalNegativeC[facility] Clinic [facility] on above:Order Comment: Specimen Type: URINE SPECIMENOrdering Facility: [facility] Address:[address] [place], [place] [address]Result Comment: Cutoff threshold at 100 ng/mL.Performed By: #### UTOX2 ####[facility] [id number] [address] STATES OF AMERICAPhencyclidine Ql (U)NegativeNormal NegativeC[facility] Clinic [facility] on above:Order Comment: Specimen Type: URINE SPECIMENOrdering Facility: [facility] Address:[address] [place], [place] [address]Result Comment: Cutoff threshold at 25 ng/mL. Performed By: #### UTOX2 ####[facility] [id number] [place] [address] [place] AMERICABasic metabolic 2000 panelon 61-43-0724Ebqpl gap [Moles/Vol]16 mmol/LHigh8-15[facility] on above:Order Comment: Specimen Type: BLOOD SPECIMENOrdering Facility: [facility] Address:[address] [place], [place] [address]Performed By: #### 45096-1, 2777-1, 38314-4, 21935-4 ####[facility] [id number] [place] [address] [place] AMERICACalcium [Mass/Vol]7.5 mg/dLLow 8.5-10.2CA[facility] on above:Order Comment: Specimen Type: BLOOD SPECIMENOrdering Facility: [facility] Address:[address] [place], [place] [address]Result Comment: Result rechecked.Performed By: #### 21634-8, 2777-1, 67755-9, 19673-5 ####[facility] [id number] [place] [address] [place] Chloride [Moles/Vol]104 mmol/CLzuuec74-116TpwzxzitkC[facility] Clinic [facility] on above:Order Comment: Specimen Type: BLOOD SPECIMENOrdering Facility: [facility] Address:[address] [place], [place] [address]Performed By: #### 80716-6, 2777-1, 15282-7, 65304-6 ####[facility] [id number] [place] [address] [place] CO2 [Moles/Vol]16 mmol/UWos72-99VjnzrwxmkC[facility] Clinic [facility] on above:Order Comment: Specimen Type: BLOOD SPECIMENOrdering Facility: [facility] Address:[address] [place], [place] [address]Performed By: #### 05550- 9, 2777-1, 81422-2, 67608-7 ####[facility] [id number] [place] [address] [place] Creatinine [Mass/Vol]0.74 mg/dLNormal0.73-1.22[facility] on above:Order Comment: Specimen Type: BLOOD SPECIMENOrdering Facility: [facility] Address:[address] [place] [address] Performed By: #### 81019-6, 2777-1, 04151-0, 03879-1 ####[facility] [id number] [place] [id number] [place] AMERICACreatinine and Glomerular filtration rate.predicted panel (S/P/Bld)123 mL/min/1.73m???Normal>=60[facility] on above:Order Comment: Specimen Type: BLOOD SPECIMENOrdering Facility: [facility] Address:[address] [place], [place] [id number] Comment: Estimated Glomerular Filtration Rate (eGFR) is [...] not accurately reflect actual GFR.Performed By: #### 22305-9, 2777-1, 00702-1, 77794-7 ####[facility] [id number] [address] [address] [place] AMERICAGlucose [Mass/Vol]82 mg/yGBnklpi41-34ZbseyjfxiC[facility] Clinic [facility] on above:Order Comment: Specimen Type: BLOOD SPECIMENOrdering Facility: [facility] Address:[address] [place], [place] [address]Result Comment: The [place] Diabetes Association (ADA) provides guidance for cutoff [...] Standards of Medical Care in Diabetes 2016, [place] [employer]. Diabetes Care. 2016.39(Suppl 1). Performed By: #### 02263-5, 2777-1, 66499-5, 55589-2 ####[facility] [id number] [place] [address] [place] AMERICAPotassium [Moles/Vol]4.1 mmol/LNormal3.7-5.1CAult[facility] on above:Order Comment: Specimen Type: BLOOD SPECIMENOrdering Facility: [facility] Address:[address] [place], [place] [address]Performed By: #### 89274-6, 2777-1, 40725-6, 07645-1 ####[facility] [id number] [place] [address] [place] AMERICASodium [Moles/Vol]136 mmol/KFrgwwl323-374OzkvfqfjwC[facility] Clinic [facility] on above:Order Comment: Specimen Type: BLOOD SPECIMENOrdering Facility: [facility] Address:[address] [place], [place] [address]Performed By: #### 55824-2, 2777-1, 70429-4, 65622-1 ####[facility] [id number] [place] [address] [place] AMERICAUrea nitrogen [Mass/Vol]7 mg/dL Low9-24[facility] on above:Order Comment: Specimen Type: BLOOD SPECIMENOrdering Facility: [facility] Address:[address] [place], [place] [address]Performed By: #### 18226-9, 2777-1, 11827-2, 03310-0 ####[facility] [id number] [place] [id number] [place] AMERICACASE MGT INIT ASSESon 07-01-2024 CASE MGT INIT ASSESNormalCRegional Medical CenterCB W Auto Differential panel (Bld)on 69-68-9334Qzhmbdqhq (Bld) [#/Vol]0.03 10*3/uLNormal<0.11CA[facility] on above:Order Comment: Specimen Type: BLOOD SPECIMENOrdering Facility: [facility] Address:[address] [place], [place] [address]Performed By: #### 40285-7 ####[facility] [id number] [place] [address] [place] AMERICABasophils/100 WBC (Bld)0.3 %NormalC[facility] Clinic [facility] on above:Order Comment: Specimen Type: BLOOD SPECIMENOrdering Facility: [facility] Address:[address] [place], [place] [address]Performed By: #### 47470-7 ####[facility] [id number] [place] [address] [place] AMERICADifferential cell count method Nom (Bld)AutoNormalCAultman Orrville Hospital on above:Order Comment: Specimen Type: BLOOD SPECIMENOrdering Facility: [facility] Address:[address] [place], [place] [address]Performed By: #### 18446- 8 ####[facility] [id number] [place] [address] [place] AMERICAEosinophils (Bld) [#/Vol]10*3/uL Normal<0.46[facility] on above:Order Comment: Specimen Type: BLOOD SPECIMENOrdering Facility: [facility] Address:[address] [place], [place] [address]Performed By: #### 48333-5 ####[facility] [id number] [place] [address] [place] AMERICAEosinophils/100 WBC (Bld)0.0 %NormalC[facility] Clinic [facility] on above:Order Comment: Specimen Type: BLOOD SPECIMENOrdering Facility: [facility] Address:[address] [place], [place] [address]Performed By: #### 72569-4 ####[facility] [id number] [place] [address] [place] Erythrocyte distribution width (RBC) [Ratio]14.5 %Kilzyd71.5-15.0[facility] - DublinComment on above:Order Comment: Specimen Type: BLOOD SPECIMENOrdering Facility: [facility] Address:[address] [place], [place] [address]Performed By: #### 96561-7 ####[facility] [id number] [place] [address] [place] AMERICAHematocrit (Bld) [Volume fraction]39.0 %Rrxcqd47.0-51.0[facility] on above:Order Comment: Specimen Type: BLOOD SPECIMENOrdering Facility: [facility] Address:[address] [place], [place] [address]Performed By: #### 66251-8 ####[facility] [id number] [place] [address] [place] Hemoglobin (Bld) [Mass/Vol]12.3 g/dLLow13.0-17.0[facility] Comment on above:Order Comment: Specimen Type: BLOOD SPECIMENOrdering Facility: [facility] Address:[address] [place] [address] Performed By: #### 73282-1 ####[facility] [id number] [place] [address] [place] Immature granulocytes (Bld) [#/Vol]0.04 10*3/uLNormal<0.10[facility] on above:Order Comment: Specimen Type: BLOOD SPECIMENOrdering Facility: [facility] Address:[address] [place], [place] [address]Performed By: #### 74776-2 ####[facility] [id number] [place] [address] [place] Immature granulocytes/100 WBC (Bld)0.4 %NormalC[facility] Clinic [facility] on above:Order Comment: Specimen Type: BLOOD SPECIMENOrdering Facility: [facility] Address:[address] [place] [address] Performed By: #### 37438-7 ####[facility] [id number] [place] [address] [place] Lymphocytes (Bld) [#/Vol]0.96 10*3/uLLow1.00-4.00[facility] Comment on above:Order Comment: Specimen Type: BLOOD SPECIMENOrdering Facility: [facility] Address:[address] [place] [address] Performed By: #### 83807-9 ####[facility] [id number] [address] STATES OF [facility] Lymphocytes/100 WBC (Bld)10.3 %NormalC[facility] Clinic [facility] on above: Order Comment: Specimen Type: BLOOD SPECIMENOrdering Facility: [facility] Address:[address] [place], [place] [address]Performed By: #### 56207- 8 ####[facility] [id number] [address] (RBC) [Entitic mass]27.1 pg Cwnlep46.0-34.0[facility] on above:Order Comment: Specimen Type: BLOOD SPECIMENOrdering Facility: [facility] Address:[address] [place], [place] [address]Performed By: #### 64335-6 ####[facility] [id number] [address] (RBC) [Mass/Vol]31.5 g/dL Cpldiq68.5-36.0[facility] on above:Order Comment: Specimen Type: BLOOD SPECIMENOrdering Facility: [facility] Address:[address] [place], [place] [address]Performed By: #### 94182-0 ####[facility] [id number] [place] [address] [place] AMERICAMCV (RBC) [Entitic vol]85.9 fL Jhjrhu53.0-100.0[facility] on above:Order Comment: Specimen Type: BLOOD SPECIMENOrdering Facility: [facility] Address:[address] [place], [place] [address]Performed By: #### 53880-4 ####[facility] [id number] [place] [address] [place] AMERICAMonocytes (Bld) [#/Vol]0.90 10*3/uLHigh<0.87[facility] on above:Order Comment: Specimen Type: BLOOD SPECIMENOrdering Facility: [facility] Address:[address] [place], [place] [address]Performed By: #### 64288-9 ####[facility] [id number] [place] [address] [place] AMERICAMonocytes/100 WBC (Bld)9.7 % NormalCleveland Clinic [facility] on above:Order Comment: Specimen Type: BLOOD SPECIMENOrdering Facility: [facility] Address:[address] [place], [place] [address]Performed By: #### 90944-5 ####[facility] [id number] [place] [address] [place] AMERICANeutrophils (Bld) [#/Vol]7.37 10*3/uLNormal1.45-7.50[facility] on above:Order Comment: Specimen Type: BLOOD SPECIMENOrdering Facility: [facility] Address:[address] [place], [place] [address]Performed By: #### 06477-6 ####[facility] [id number] [place] [address] [place] AMERICANeutrophils/100 WBC (Bld)79.3 %NormalCleveland Clinic [facility] on above:Order Comment: Specimen Type: BLOOD SPECIMENOrdering Facility: [facility] Address:[address] [place] [address] Performed By: #### 39032-0 ####[facility] [id number] [place] [address] [place] Nucleated RBC (Bld) [#/Vol]10*3/uLNormal<0.01[facility] on above:Order Comment: Specimen Type: BLOOD SPECIMENOrdering Facility: [facility] Address:[address] [place] [address] Performed By: #### 85897-4 ####[facility] [id number] [place] [address] [place] Nucleated RBC/100 WBC (Bld) [Ratio]0.0 /100 WBCNormalCRegional Medical Center Comment on above:Order Comment: Specimen Type: BLOOD SPECIMENOrdering Facility: [facility] Address:[address] [place] [address] Performed By: #### 36832-7 ####[facility] [id number] [place] [address] [place] Platelet mean volume (Bld) [Entitic vol]11.5 fLNormal9.0-12.7CAultman [facility] on above:Order Comment: Specimen Type: BLOOD SPECIMENOrdering Facility: [facility] Address:[address] [place], [place] [address]Performed By: #### 54810-6 ####[facility] [id number] [place] [address] [place] Platelets (Bld) [#/Vol]108 10*3/zUBgg365-125XutarullgC[facility] Clinic [facility] on above:Order Comment: Specimen Type: BLOOD SPECIMENOrdering Facility: [facility] Address:[address] [place], [place] [address]Performed By: #### 09951-3 ####[facility] [id number] [address]RB (Bld) [#/Vol]4.54 10*6/uLNormal4.20-6.00[facility] on above:Order Comment: Specimen Type: BLOOD SPECIMENOrdering Facility: [facility] Address:[address] [place], [place] [address]Performed By: #### 77047-7 ####[facility] [id number] [address]ETWBC (Bld) [#/Vol]9.30 10*3/uL Normal3.70-11.00[facility] on above:Order Comment: Specimen Type: BLOOD SPECIMENOrdering Facility: [facility] Address:[address] [place], [place] [address]Performed By: #### 32193-6 ####[facility] [id number] [address]CB panel Auto (Bld)on 07-01-2024 Erythrocyte distribution width (RBC) [Ratio]15.3 %High11.5-15.0[facility] on above:Order Comment: Specimen Type: BLOOD SPECIMENOrdering Facility: [facility] Address:[address] [place], [place] [address]Performed By: #### 46655-8 ####[facility] [id number] [address] Hematocrit (Bld) [Volume fraction]45.7 %Khcdtt56.0-51.0[facility] on above:Order Comment: Specimen Type: BLOOD SPECIMENOrdering Facility: [facility] Address:[address] [place], [place] [address]Performed By: #### 33668-2 ####[facility] [id number] [place] [address] [place] Hemoglobin (Bld) [Mass/Vol]14.9 g/dPZtgofa62.0-17.0[facility] Comment on above:Order Comment: Specimen Type: BLOOD SPECIMENOrdering Facility: [facility] Address:[address] [place] [address] Performed By: #### 77865-6 ####[facility] [id number] [place] [address] [place] MCH (RBC) [Entitic mass]27.7 meIyccej93.0-34.0[facility] - DublinComment on above:Order Comment: Specimen Type: BLOOD SPECIMENOrdering Facility: [facility] Address:[address] [place] [address] Performed By: #### 14541-2 ####[facility] [id number] [place] [address] [place] [facility] (RBC) [Mass/Vol]32.6 g/jTCkaaxa01.5-36.0[facility] - DublinComment on above:Order Comment: Specimen Type: BLOOD SPECIMENOrdering Facility: [facility] Address:[address] [place] [address] Performed By: #### 26577-1 ####[facility] [id number] [place] [address] [place] [facility] (RBC) [Entitic vol]85.1 uNFbkwsn45.0-100.0[facility] DublinComtr[facility] on above:Order Comment: Specimen Type: BLOOD SPECIMENOrdering Facility: [facility] Address:[address] [place] [address] Performed By: #### 88686-1 ####[facility] [id number] [place] [address] [place] Nucleated RBC (Bld) [#/Vol]10*3/uLNormal<0.01[facility] on above:Order Comment: Specimen Type: BLOOD SPECIMENOrdering Facility: [facility] Address:[address] [place] [address] Performed By: #### 23576-8 ####[facility] [id number] [place] [address] [place] Platelet mean volume (Bld) [Entitic vol]12.3 fLNormal9.0-12.7CA[facility] on above:Order Comment: Specimen Type: BLOOD SPECIMENOrdering Facility: [facility] Address:[address] [place], [place] [address]Performed By: #### 38996-6 ####[facility] [id number] [place] [address] [place] Platelets (Bld) [#/Vol]133 10*3/lODcr167-143VvklhabkmC[facility] Clinic [facility] on above:Order Comment: Specimen Type: BLOOD SPECIMENOrdering Facility: [facility] Address:[address] [place], [place] [address]Performed By: #### 12530-6 ####[facility] [id number] [place] [address] [place] AMERICARBC (Bld) [#/Vol]5.37 10*6/uLNormal4.20-6.00[facility] on above:Order Comment: Specimen Type: BLOOD SPECIMENOrdering Facility: [facility] Address:[address] [place], [place] [address]Performed By: #### 90389-5 ####[facility] [id number] [place] [address] [place] AMERICAWBC (Bld) [#/Vol]7.99 10*3/uL Normal3.70-11.00[facility] on above:Order Comment: Specimen Type: BLOOD SPECIMENOrdering Facility: [facility] Address:[address] [place], [place] [address]Performed By: #### 36067-3 ####[facility] [id number] [place] [address] [place] AMERICACONSULT PROGon 56-32-2208JRKSPWT PROGNormalSelect Medical [facility] - DublinComprehensive metabolic 2000 panelon 58-11-4332Bqrgvhf [Mass/Vol]4.0 g/dLNormal3.9-4.9CRegional Medical Center Comment on above:Order Comment: Specimen Type: BLOOD SPECIMENOrdering Facility: [facility] Address:[address] [place], [place] [address]Result Comment: Result rechecked.Performed By: #### 2324-2, 61801-0 ####[facility] [id number] [place] [address] [place] AMERICAALP [Catalytic activity/Vol]90 U/IPrhxvv26-679 [facility] on above:Order Comment: Specimen Type: BLOOD SPECIMENOrdering Facility: [facility] Address:[address] [place], [place] [address]Performed By: #### 2324-2, 80477-3 ####[facility] [id number] [place] [address] [place] AMERICAALT [Catalytic activity/Vol]214 U/OLynz55-26NlucxembnC[facility] Clinic [facility] on above:Order Comment: Specimen Type: BLOOD SPECIMENOrdering Facility: [facility] Address:[address] [place], [place] [address]Performed By: #### 2324-2, 17263-7 ####[facility] [id number] [address] [address] [place] Anion gap [Moles/Vol]11 mmol/LNormal8-15[facility] on above:Order Comment: Specimen Type: BLOOD SPECIMENOrdering Facility: [facility] Address:[address] [place], [place] [address]Performed By: #### 2324-2, 13830-4 ####[facility] [id number] [place] [address] [place] AMERICAAST [Catalytic activity/Vol]176 U/JBahn50-97VukpggeqfC[facility] Clinic [facility] on above:Order Comment: Specimen Type: BLOOD SPECIMENOrdering Facility: [facility] Address:[address] [place], [place] [address]Result Comment: Results may be falsely increased due to interference from hemolysis. Suggest reorder as clinically indicated.Performed By: #### 2324-2, 23693-8 ####[facility] [id number] [place] [address] [place] AMERICABilirubin [Mass/Vol]1.5 mg/dLHigh0.2-1.3CA[facility] on above:Order Comment: Specimen Type: BLOOD SPECIMENOrdering Facility: [facility] Address:[address] [place], [place] [address]Performed By: #### 2324-2, 88788-4 ####[facility] [id number] [address] STATES OF AMERICACalcium [Mass/Vol]8.4 mg/dLLow8.5-10.2CA[facility] on above:Order Comment: Specimen Type: BLOOD SPECIMENOrdering Facility: [facility] Address:[address] [place], [place] [address] Performed By: #### 2324-2, 00334-9 ####[facility] [id number] [place] [address] [place] Chloride [Moles/Vol]101 mmol/EGzenjb61-210RfycgapxpC[facility] Clinic [facility] on above:Order Comment: Specimen Type: BLOOD SPECIMENOrdering Facility: [facility] Address:[address] [place], [place] [address]Performed By: #### 2324-2, 58900-0 ####[facility] [id number] [place] [id number] [place] AMERICACO2 [Moles/Vol]25 mmol/GQcrkvs42-99LcagjvoapC[facility] Clinic [facility] on above:Order Comment: Specimen Type: BLOOD SPECIMENOrdering Facility: [facility] Address:[address] [place], [place] [address]Performed By: #### 2324-2, ####[facility] [id number] [place] [address] [place] AMERICACreatinine [Mass/Vol]1.02 mg/dL Normal0.73-1.22[facility] on above:Order Comment: Specimen Type: BLOOD SPECIMENOrdering Facility: [facility] Address:[address] [place], [place] [address]Performed By: #### 2324-2, ####[facility] [id number] [place] [address] [place] AMERICACreatinine and Glomerular filtration rate.predicted panel (S/P/Bld)100 mL/min/1.73m???Normal>=60[facility] on above:Order Comment: Specimen Type: BLOOD SPECIMENOrdering Facility: [facility] Address:[address] [place], [place] [address]Result Comment: Estimated Glomerular Filtration Rate (eGFR) is [...] accurately reflect actual GFR.Performed By: #### 2324-2, 88657-0 ####[facility] [id number] [place] [address] [place] AMERICAGlucose [Mass/Vol]102 mg/aZUwua15-07YqooqrbizSelect [facility] Comment on above:Order Comment: Specimen Type: BLOOD SPECIMENOrdering Facility: [facility] Address:[address] [place], [place] [address]Result Comment: The [place] Diabetes [employer] (ADA) provides guidance for cutoff [...] Standards of Medical Care in Diabetes 2016, [place] [employer]. Diabetes Care. 2016.39(Suppl 1).Performed By: #### 2324-2, 82288-5 ####[facility] [id number] [place] [address] [place] AMERICAPotassium [Moles/Vol]4.1 mmol/LNormal3.7-5.1CRegional Medical CenterComment on above:Order Comment: Specimen Type: BLOOD SPECIMENOrdering Facility: [facility] Address:[address] [place], [place] [address]Performed By: #### 2324-2, 30060-7 ####[facility] [id number] [place] [address] [place] AMERICAProtein [Mass/Vol]6.4 g/dLNormal6.3-8.0[facility] on above:Order Comment: Specimen Type: BLOOD SPECIMENOrdering Facility: [facility] Address:[address] [place], [place] [address]Result Comment: Result rechecked.Performed By: #### 2324-2, 05397-8 ####[facility] [id number] [place] [address] [place] AMERICASodium [Moles/Vol]137 mmol/HKihbdk054-192JnkymiqytC[facility] Clinic [facility] on above:Order Comment: Specimen Type: BLOOD SPECIMENOrdering Facility: [facility] Address:[address] [place], [place] [address]Performed By: #### 2324-2, 40374-5 ####[facility] [id number] [place] [address] [place] AMERICAUrea nitrogen [Mass/Vol]10 mg/dLNormal9-24[facility] on above:Order Comment: Specimen Type: BLOOD SPECIMENOrdering Facility: [facility] Address:[address] [place], [place] [address]Performed By: #### 2324-2, 57260-8 ####[facility]IA [id number] [place] [address] [place] AMERICAEthanol Gas chromatography [Mass/Vol]on 75-42-6758Soxwodu [Mass/Vol]mg/dL Normal<5CA[facility] on above:Order Comment: Specimen Type: BLOOD SPECIMENOrdering Facility: [facility] Address:[address] [place], [place] [address]Result Comment: Therapeutic range for methanol toxicity 100 - 150 mg/dL.Source: AACT Practice Guidelines on the Treatment of Methanol Poisoning.For medical purposes only. Not valid for forensic use.This test was developed and its performance characteristics determined by [facility]'s Iraj Huston [facility] Pathology and Laboratory Medicine [place] ([facility]). It has not been cleared or approvedby the FDA. -[facility] is regulated under CLIA as qualified to perform high-complexity testing. This test is used for clinical purposes. It should not be regarded as investigational or for research. Performed By: #### 12923-3 ####[facility] [id number] [place] [address] [place] Ethanol SerPl-mCncon 37-51-3702Znythiu [Mass/Vol]mg/dLNormal<11CA[facility] on above:Order Comment: Specimen Type: BLOOD SPECIMENOrdering Facility: [facility] Address:[address] [place], [place] [address]Performed By: #### 5643-2 ####[facility] [id number] [address] [address] [place] GGT SerPl-cCncon 08-33-6586Pnqwe glutamyl transferase [Catalytic activity/Vol] 199 U/SScvb56-02LagvfrhncC[facility] Clinic [facility] on above:Order Comment: Specimen Type: BLOOD SPECIMENOrdering Facility: [facility] Address:[address] [place], [place] [address]Performed By: #### 2324-2, 43179-4 ####[facility] [id number] [place] [address] [place] AMERICAHepatic function 2000 panelon 55-62-3427Aukiyuf [Mass/Vol]2.6 g/dLLow3.9-4.9CAult[facility] on above:Order Comment: Specimen Type: BLOOD SPECIMENOrdering Facility: [facility] Address:[address] [place], [place] [address]Result Comment: Result rechecked.Performed By: #### 35749-1, 2777-1, 57598-7, 98193-1 ####[facility] [id number] [place] [address] [place] AMERICAALP [Catalytic activity/Vol]54 U/EDzlqdn27-904WsxvwfohdC[facility] Clinic [facility] on above:Order Comment: Specimen Type: BLOOD SPECIMENOrdering Facility: [facility] Address:[address] [place], [place] [address]Performed By: #### 79338-9, 2777-1, 92077-5, 31925-9 ####[facility] [id number] [place] [address] [place] AMERICAALT [Catalytic activity/Vol]113 U/RVmih35-77BvuduetxhCleveland Clinic [facility] on above:Order Comment: Specimen Type: BLOOD SPECIMENOrdering Facility: [facility] Address:[address] [place], [place] [address]Performed By: #### 51172- 9, 2777-1, 46789-9, 97904-6 ####[facility] [id number] [place] [address] [place] AMERICAAST [Catalytic activity/Vol]100 U/RVoau32-44DypnogapcC[facility] Clinic [facility] on above:Order Comment: Specimen Type: BLOOD SPECIMENOrdering Facility: [facility] Address:[address] [place], [place] [address]Performed By: #### 08215-8, 2777-1, 28177-7, 14400-2 ####[facility] [id number] [place] [address] [place] Bilirubin [Mass/Vol]0.8 mg/dLNormal0.2-1.3CCleveland Clinic Medina Hospitalment on above:Order Comment: Specimen Type: BLOOD SPECIMENOrdering Facility: [facility] Address:[address] [place], [place] [address]Performed By: #### 77429-3, 2777-1, 89476-6, 05435-2 ####[facility] [id number] [place] [address] [place] Bilirubin.conjugated [Mass/Vol]mg/dLNormal<0.2CA[facility] on above:Order Comment: Specimen Type: BLOOD SPECIMENOrdering Facility: [facility] Address:[address] [place] [address] Performed By: #### 02921-3, 2777-1, 65982-7, 10684-5 ####[facility] [id number] [place] [address] [place] AMERICAProtein [Mass/Vol]4.2 g/dLLow6.3-8.0[facility] Comment on above:Order Comment: Specimen Type: BLOOD SPECIMENOrdering Facility: [facility] Address:[address] [place] [address]Gjjikm Comment: Result rechecked.Performed By: #### 39566-8, 2777-1, 58348-8, 75452-9 ####[facility] [id number] [place] [address] [place] AMERICAMagnesium SerPl-mCncon 07-01-2024 Magnesium [Mass/Vol]1.2 mg/dLLow1.7-2.3CA[facility] on above:Order Comment: Specimen Type: BLOOD SPECIMENOrdering Facility: [facility] Address:[address] [place], [place] [address]Performed By: #### 69913-8, 2777-1, 55790-7, 80082-9 ####[facility] [id number] [address] [place] PT panel Coag (PPP)on 94-23-7146UGI Coag (PPP) [Relative time]1.0 {INR}Normal 0.9-1.3CAult[facility] on above:Order Comment: Specimen Type: BLOOD SPECIMENOrdering Facility: [facility] Address:[address] [place] [address]Wyeuof Comment: Vitamin K Antagonist (VKA) Therapeutic Range: INR 2 to 3 (Target INR of 2.5)Note: For patients treated with VKA drugs, such as warfarin, the [place] [employer] 2012 Guideline recommends [...] al. JACC 2017, 70: 252-289Performed By: #### 35017-8 ####[facility] [id number] [place] [address] [place] PT Coag (PPP) [Time]11.1 sNormal9.7-13.0[facility] DublinComment on above:Order Comment: Specimen Type: BLOOD SPECIMENOrdering Facility: [facility] Address:[address] [place], [place] [address]Performed By: #### 83294-4 ####[facility] [id number] [place] [address] [place] AMERICAPhosphate SerPl-mCncon 32-03-9648Gnemwnwnk [Mass/Vol]2.4 mg/dLLow2.7-4.8CRegional Medical Center Comment on above:Order Comment: Specimen Type: BLOOD SPECIMENOrdering Facility: [facility] Address:[address] [place] [address] Performed By: #### 92039-7, 2777-1, 09993-1, 99912-4 ####[facility] [id number] [place] [address] [place] AMERICAANES POSTPROC EVALon 56-33-5749NRPD POSTPROC EVALNormal [facility] DublinBRIEF OP NOTon 21-13-6880PKVBY OP NOTNormalCRegional Medical CenterCONSULTon 07-28-8026PKUVPSXSaobrzGdjrsdwba Clinic [facility] NURSING PROGon 61-84-7612ZCZDTOP PROGNormalSelect Medical [facility] Rehabilitation Hospital - DublinOPERATIVE NOon 29-46-1516TPWJGPNGY NONormalSelect Medical [facility] Rehabilitation Hospital - DublinANES PRE-OPon 92-74-1696SQUW PRE-OPNormalSelect Medical [facility] Rehabilitation Hospital - DublinCBC W Auto Differential panel (Bld)on 53-93-6299Kyhlgodtf (Bld) [#/Vol]0.09 10*3/uLNormal<0.11CAult[facility] on above:Order Comment: Specimen Type: BLOOD SPECIMENOrdering Facility: [facility] Address:[address] [place], [place] [address]Performed By: #### 89813-8 ####[facility] [id number] [place] [address] [place] AMERICABasophils/100 WBC (Bld)1.5 %NormalCleveland Clinic [facility] on above:Order Comment: Specimen Type: BLOOD SPECIMENOrdering Facility: [facility] Address:[address] [place], [place] [address]Performed By: #### 85721-5 ####[facility] [id number] [place] [address] [place] AMERICADifferential cell count method Nom (Bld)AutoNormalCAultman Orrville Hospital on above:Order Comment: Specimen Type: BLOOD SPECIMENOrdering Facility: [facility] Address:[address] [place], [place] [address]Performed By: #### 75744- 8 ####[facility] [id number] [place] [address] [place] AMERICAEosinophils (Bld) [#/Vol]0.21 10*3/uLNormal<0.46[facility] on above:Order Comment: Specimen Type: BLOOD SPECIMENOrdering Facility: [facility] Address:[address] [place], [place] [address]Performed By: #### 62281-2 ####[facility] [id number] [place] [address] [place]ICAEosinophils/100 WBC (Bld)3.4 % NormalCleveland Clinic [facility] on above:Order Comment: Specimen Type: BLOOD SPECIMENOrdering Facility: [facility] Address:[address] [place], [place] [address]Performed By: #### 09889-9 ####[facility] [id number] [place] [address] [place] AMERICAErythrocyte distribution width (RBC) [Ratio]14.6 %Normal 11.5-15.0[facility] on above:Order Comment: Specimen Type: BLOOD SPECIMENOrdering Facility: [facility] Address:[address] [place], [place] [address]Performed By: #### 15365-4 ####[facility] [id number] [place] [address] [place] AMERICAHematocrit (Bld) [Volume fraction]49.7 %Sijmaj65.0-51.0 [facility] on above:Order Comment: Specimen Type: BLOOD SPECIMENOrdering Facility: [facility] Address:[address] [place], [place] [address]Performed By: #### 26946-1 ####[facility] [id number] [place] [address] [place]ICAHemoglobin (Bld) [Mass/Vol]15.9 g/lYJhhuxw10.0-17.0[facility] on above:Order Comment: Specimen Type: BLOOD SPECIMENOrdering Facility: [facility] Address:[address] [place], [place] [address]Performed By: #### 27314-4 ####[facility] [id number] [place] [address] [place] Immature granulocytes (Bld) [#/Vol]0.04 10*3/uLNormal<0.10[facility] on above:Order Comment: Specimen Type: BLOOD SPECIMENOrdering Facility: [facility] Address:[address] [place], [place] [address]Performed By: #### 27468-4 ####[facility] [id number] [place] [address] [place] Immature granulocytes/100 WBC (Bld)0.6 %NormalCleveland Clinic [facility] on above:Order Comment: Specimen Type: BLOOD SPECIMENOrdering Facility: [facility] Address:[address] [place] [address] Performed By: #### 09399-0 ####[facility] [id number] [place] [address] [place] Lymphocytes (Bld) [#/Vol]1.10 10*3/uLNormal1.00-4.00[facility] Comment on above:Order Comment: Specimen Type: BLOOD SPECIMENOrdering Facility: [facility] Address:[address] [place] [address] Performed By: #### 56573-7 ####[facility] [id number] [address] [place] Lymphocytes/100 WBC (Bld)17.9 %NormalCleveland Clinic [facility] on above: Order Comment: Specimen Type: BLOOD SPECIMENOrdering Facility: [facility] Address:[address] [place], [place] [address]Performed By: #### 81994- 8 ####[facility] [id number] [address] (RBC) [Entitic mass]26.8 pg Nvaspw96.0-34.0[facility] on above:Order Comment: Specimen Type: BLOOD SPECIMENOrdering Facility: [facility] Address:[address] [place], [place] [address]Performed By: #### 89683-9 ####[facility] [id number] [address] (RBC) [Mass/Vol]32.0 g/dL Zxbyry11.5-36.0[facility] on above:Order Comment: Specimen Type: BLOOD SPECIMENOrdering Facility: [facility] Address:[address] [place], [place] [address]Performed By: #### 35755-9 ####[facility] [id number] [place] [address] [place] AMERICAMCV (RBC) [Entitic vol]83.8 fL Ajyzvj98.0-100.0[facility] on above:Order Comment: Specimen Type: BLOOD SPECIMENOrdering Facility: [facility] Address:[address] [place], [place] [address]Performed By: #### 18480-6 ####[facility] [id number] [place] [address] [place] AMERICAMonocytes (Bld) [#/Vol]0.50 10*3/uLNormal<0.87[facility] on above:Order Comment: Specimen Type: BLOOD SPECIMENOrdering Facility: [facility] Address:[address] [place], [place] [address]Performed By: #### 13747-8 ####[facility] [id number] [place] [address] [place]ICAMonocytes/100 WBC (Bld)8.1 % NormalCleveland Clinic [facility] on above:Order Comment: Specimen Type: BLOOD SPECIMENOrdering Facility: [facility] Address:[address] [place], [place] [address]Performed By: #### 89333-0 ####[facility] [id number] [place] [address] [place] AMERICANeutrophils (Bld) [#/Vol]4.22 10*3/uLNormal1.45-7.50[facility] on above:Order Comment: Specimen Type: BLOOD SPECIMENOrdering Facility: [facility] Address:[address] [place], [place] [address]Performed By: #### 81376-3 ####[facility] [id number] [place] [address] [place] AMERICANeutrophils/100 WBC (Bld)68.5 %NormalCleveland Clinic [facility] on above:Order Comment: Specimen Type: BLOOD SPECIMENOrdering Facility: [facility] Address:[address] [place] [address] Performed By: #### 42155-5 ####[facility] [id number] [place] [address] [place] Nucleated RBC (Bld) [#/Vol]10*3/uLNormal<0.01[facility] on above:Order Comment: Specimen Type: BLOOD SPECIMENOrdering Facility: [facility] Address:[address] [place] [address] Performed By: #### 17215-2 ####[facility] [id number] [place] [address] [place] Nucleated RBC/100 WBC (Bld) [Ratio]0.0 /100 WBCNormalCRegional Medical Center Comment on above:Order Comment: Specimen Type: BLOOD SPECIMENOrdering Facility: [facility] Address:[address] [place] [address] Performed By: #### 35681-0 ####[facility] [id number] [place] [address] [place] Platelet mean volume (Bld) [Entitic vol]12.3 fLNormal9.0-12.7CAultman [facility] on above:Order Comment: Specimen Type: BLOOD SPECIMENOrdering Facility: [facility] Address:[address] [place], [place] [address]Performed By: #### 32398-6 ####[facility] [id number] [place] [address] [place] Platelets (Bld) [#/Vol]165 10*3/fDBooexg498-138BssfqidsoC[facility] Clinic [facility] on above:Order Comment: Specimen Type: BLOOD SPECIMENOrdering Facility: [facility] Address:[address] [place] [address] Performed By: #### 58883-1 ####[facility] [id number] [place] [address] [place] RBC (Bld) [#/Vol]5.93 10*6/uLNormal4.20-6.00[facility] on above:Order Comment: Specimen Type: BLOOD SPECIMENOrdering Facility: [facility] Address:[address] [place], [place] [address]Performed By: #### 85046-1 ####[facility] [id number] [place] [address] [place] [facility]IPWBC (Bld) [#/Vol]6.16 10*3/uLNormal3.70-11.00[facility] on above:Order Comment: Specimen Type: BLOOD SPECIMENOrdering Facility: [facility] Address:[address] [place], [place] [address]Performed By: #### [id number] ####[facility] [id number] [place] [address] [place] AMERICAComprehensive metabolic 2000 panelon [id number] [Mass/Vol]4.9 g/dLNormal3.9-4.9CA[facility] on above:Order Comment: Specimen Type: BLOOD SPECIMENOrdering Facility: [facility] Address:[address] [place], [place] [address]Performed By: #### [id number] ####[facility] [id number] [place] [address] [place] ALP [Catalytic activity/Vol]107 U/HOdmrqz43-286BjggfnkdoC[facility] on above:Order Comment: Specimen Type: BLOOD SPECIMENOrdering Facility: [facility] Address:[address] [place] [address] Performed By: #### 51426-4 ####[facility] [id number] [address] [address] [place] ALT [Catalytic activity/Vol]198 U/DQzlw77-09QvuodufdjCleveland Clinic [facility] on above:Order Comment: Specimen Type: BLOOD SPECIMENOrdering Facility: [facility] Address:[address] [place], [place] [address]Performed By: #### 08676-9 ####[facility] [id number] [place] [address] [place] AMERICAAnion gap [Moles/Vol] 14 mmol/LNormal8-15[facility] on above:Order Comment: Specimen Type: BLOOD SPECIMENOrdering Facility: [facility] Address:[address] [place], [place] [address]Performed By: #### 71259-3 ####[facility] [id number] [place] [address] [place] AMERICAAST [Catalytic activity/Vol]164 U/YWbxd71-52IspzurbbdC[facility] Clinic [facility] on above:Order Comment: Specimen Type: BLOOD SPECIMENOrdering Facility: [facility] Address:[address] [place], [place] [address]Performed By: #### 18929-8 ####[facility] [id number] [place] [address] [place] AMERICABilirubin [Mass/Vol]0.8 mg/dLNormal0.2-1.3CAult[facility] on above:Order Comment: Specimen Type: BLOOD SPECIMENOrdering Facility: [facility] Address:[address] [place], [place] [address]Performed By: #### 35304-2 ####[facility] [id number] [place] [address] [place] AMERICACalcium [Mass/Vol]10.2 mg/dLNormal8.5-10.2CRegional Medical Center Comment on above:Order Comment: Specimen Type: BLOOD SPECIMENOrdering Facility: [facility] Address:[address] [place] [address] Performed By: #### 06989-1 ####[facility] [id number] [place] [address] [place] Chloride [Moles/Vol]100 mmol/HWprhbs27-896VbegcwoqjCleveland Clinic [facility] on above:Order Comment: Specimen Type: BLOOD SPECIMENOrdering Facility: [facility] Address:[address] [place], [place] [address]Performed By: #### 81071-5 ####[facility] [id number] [place] [address] [place] AMERICACO2 [Moles/Vol]22 mmol/ZGitynj46-10OcfbgvrijBarney Children's Medical Centerment on above:Order Comment: Specimen Type: BLOOD SPECIMENOrdering Facility: [facility] Address:[address] [place], [place] [address]Performed By: #### 06374-3 ####[facility] [id number] [place] [address] [place] AMERICACreatinine [Mass/Vol]0.95 mg/dL Normal0.73-1.22[facility] DublinComtrinity [facility] on above:Order Comment: Specimen Type: BLOOD SPECIMENOrdering Facility: [facility] Address:[address] [place], [place] [address]Performed By: #### 03457-4 ####[facility] [id number] [place] [address] [place] AMERICACreatinine and Glomerular filtration rate.predicted panel (S/P/Bld)108 mL/min/1.73m???Normal>=60[facility] on above:Order Comment: Specimen Type: BLOOD SPECIMENOrdering Facility: [facility] Address:[address] [place], [place] [address]Result Comment: Estimated Glomerular Filtration Rate (eGFR) is calculated using the 2020 CKD-EPI creatinine equation. This equation utilizes serum creatinine, sex, and age as parameters. The creatinine assay has traceable calibration to isotope dilution-mass spectrometry. Refer to KDIGO guidelines for clinical interpretation. In patients with unstable renal function, e.g. those with acute kidney injury, the eGFR may not accurately reflect actual GFR.Performed By: #### 11203-0 ####[facility] LABIA [id number] [place] [address] [place] AMERICAGlucose [Mass/Vol]106 mg/fUCpjm58-85KghgolaekSelect Medical Ohiohealth Rehabilitation Hospital - DublinComment on above:Order Comment: Specimen Type: BLOOD SPECIMENOrdering Facility: [facility] Address:[address] [place], [place] [address]Result Comment: The [place] Diabetes Association (ADA) provides guidance for cutoff [...] Standards of Medical Care in Diabetes 2016, [place] [employer] Association. Diabetes Care. 2016.39(Suppl 1).Performed By: #### 07201-6 ####[facility] LABIA [id number] [place] [id number] [place] AMERICAPotassium [Moles/Vol]4.5 mmol/LNormal3.7-5.1CRegional Medical Center Comment on above:Order Comment: Specimen Type: BLOOD SPECIMENOrdering Facility: [facility] Address:[address] [place] [address] Performed By: #### 06613-2 ####[facility] [id number] [place] [id number] [place] Protein [Mass/Vol]7.8 g/dLNormal6.3-8.0[facility] on above:Order Comment: Specimen Type: BLOOD SPECIMENOrdering Facility: [facility] Address:[address] [place], [place] [address]Performed By: #### 11749-6 ####[facility] [id number] [place] [address] [place] AMERICASodium [Moles/Vol]136 mmol/IRenynz049-050DlahixvpxC[facility] Clinic [facility] on above:Order Comment: Specimen Type: BLOOD SPECIMENOrdering Facility: [facility] Address:[address] [place], [place] [address]Performed By: #### 91293-1 ####[facility] [id number] [place] [address] [place] AMERICAUrea nitrogen [Mass/Vol]10 mg/dL Normal9-24[facility] on above:Order Comment: Specimen Type: BLOOD SPECIMENOrdering Facility: [facility] Address:[address] [place], [place] [address]Performed By: #### 47397-1 ####[facility] [id number] [place] [address] [place] OMUHUPISMN22ze 90-98-2064SZA35IlwnmgEgcenylse Clinic Cleveland HISTORY PHYSICALon 58-06-4076FKVQZXC PHYSICALNormalCRegional Medical CenterPT panel Coag (PPP)on 14-84-1083NEO Coag (PPP) [Relative time]1.1 {INR}Normal 0.9-1.3CAult[facility] on above:Order Comment: Specimen Type: BLOOD SPECIMENOrdering Facility: [facility] Address:[address] [place], [place] [address]Result Comment: Vitamin K Antagonist (VKA) Therapeutic Range: INR 2 to 3 (Target INR of 2.5)Note: For patients treated with VKA drugs, such as warfarin, the [place] [employer] 2012 Guideline recommends [...] al. Chest 2012, 141:7S-47SNishimradha RA, et al. [facility] 2017, 70: 252-289Performed By: #### 35469-9, 01064-4 ####[facility]CL[facility] [id number] [place] [address] [place] AMERICAPT Coag (PPP) [Time]11.2 sNormal9.7-13.0[facility] on above:Order Comment: Specimen Type: BLOOD SPECIMENOrdering Facility: [facility] Address:[address] [place] [address] Performed By: #### 59660-5, 29686-4 ####[facility]CL[facility] [id number] [address] [place] TYPE AND SCREEN,30 DAYon 32-83-2260ARDFDummtwTxhocyrdzOhio State Health System on above:Order Comment: Specimen Type: BLOOD SPECIMENOrdering Facility: [facility] Address:[facility] [place] [address] Performed By: #### [id number] ####[facility] BLOOD BANKCLIA [id number] [place] [address] [place] AMERICAHISTORICAL AB SCR STATUSNegativeNoOhio State Health System on above:Order Comment: Specimen Type: BLOOD SPECIMENOrdering Facility: [facility] Address:[address] [place], [place] [address]Performed By: #### TSCR30 ####[facility] BLOOD BANKCLIA [id number] [place] [address] [place] AMERICARh Nom (Bld)PositiveNormalCRegional Medical Center Comment on above:Order Comment: Specimen Type: BLOOD SPECIMENOrdering Facility: [facility] Address:[address] [place] [address] Performed By: #### TSCR30 ####[facility] BLOOD BANKCLIA [id number] [address] STATES OF [facility] TOWNSHIPaPTT PPPon 06-29-2024 aPTT Coag (PPP) [Time]27.7 xKoqrzc75.0-32.4CRegional Medical CenterComment on above:Order Comment: Specimen Type: BLOOD SPECIMENOrdering Facility: [facility] Address:[address] [place], [place] [address]Result Comment: Frozen Plasma AliquotPerformed By: #### 43652-3, 74967-6 ####[facility]CL[facility] [id number] [address] OF [facility] TOWNSHIPHISTORY PHYSICALon 69-05-4418YRTEPDR PHYSICALNormal [facility] - DublinCNOVon 18-82-9102KNJAXxtdou Visit (JULIANO) ANGELITA MOMIN ([id number]) 1990 M LV Date Time Provider Department [...] a Temperature: No Drains: No patient declined registered dental hygienist Sera Cummings MA May 28, 2024 10:03 AM Adolfo Ballard MD 06/02/2024 9:39 AM Signed Consultation requested by Dr. Jayleen Becker for an opinion regarding hernia. My final recommendations will be communicated back to the requesting physician by way of shared medical record or letter via US mail [facility] - HISTORY [...] transfusion Pneumonia 03/21/2010 SBO (small bowel obstruction) ([facility]) 11/06/2015 - CT : bowl obstruction with transition point at the [facility] -NPO -IVF -pain control -Phenergen for [...] INTESTINE 08/31/2010 Performed by FRANCO GARCIA at [facility] PAST SURGICAL HISTORY OF 03/2008 2 [...] 09/17/2023) naloxone (more content not included)...NormalHillcrest HospitalCNOVNormal [facility] - DublinA1AT SerPl-mCncon 38-59-5572Wouuj 1 antitrypsin [Mass/Vol]131 mg/tVOexqhp06-608PyovjcbxrSelect Medical [facility] Rehabilitation Hospital - DublinComtrinity health [facility] on above:Order Comment: Specimen Type: BLOOD SPECIMENOrdering Facility: [facility] Address:[address] [place], [place] [address]Performed By: #### 1825- 9, 2064-4, 02040-5, 15827-1 ####[facility]CL[facility] [id number] [place] [address] [place] AMERICABLOOD TB SCREEN, INCUBATEDon 05-21-2024M. tuberculosis tuberculin stim IFN-g Ql (Bld) NegativeNormalCRegional Medical CenterComtrinity health [facility] hospital on above:Order Comment: Specimen Type: BLOOD SPECIMENOrdering Facility: [facility] Address: [address] [place], [place] [address]Performed By: #### INTPGP ####[facility]CLIA [id number] [place] [address] [place] AMERICAMITOGEN MINUS NIL>9.98Normal>=0.50[facility] on above:Order Comment: Specimen Type: BLOOD SPECIMENOrdering Facility: [facility] Address: [address] [place], [place] [address]Performed By: #### INTPGP ####[facility]CL[facility] [id number] [place] [address] [place] TB GAMMA INTERPRETATIONNormalCRegional Medical CenterComtrinity health oakland hospital on above:Order Comment: Specimen Type: BLOOD SPECIMENOrdering Facility: [facility] Address: [address] [place], [place] [address]Performed By: #### INTPGP ####[facility]CL[facility] [id number] [address] [address] [place] AMERICATB NIL0.02 IU/mLNormal<=8.00 [facility] on above:Order Comment: Specimen Type: BLOOD SPECIMENOrdering Facility: [facility] Address: [address] [place], [place] [address]Performed By: #### INTPGP ####[facility]CL[facility] [id number] [place] [address] [place] AMERICATB1 AG MINUS NIL0.19 IU/mLNormal<0.35[facility] on above:Order Comment: Specimen Type: BLOOD SPECIMENOrdering Facility: [facility] Address: [address] [place], [place] [address]Performed By: #### INTPGP ####[facility] [id number] [place] [address] [place] TB2 AG MINUS NIL0.15 IU/mLNormal<0.35[facility] on above: Order Comment: Specimen Type: BLOOD SPECIMENOrdering Facility: [facility] Address: [address] [place], [place] [address]Performed By: #### INTPGP ####[facility]CL[facility] [id number] [place] [address] [place] AMERICACBC panel Auto (Bld)on 26-30-6190Vuuxzbldyvf distribution width (RBC) [Ratio]15.5 %High11.5-15.0 [facility] on above:Order Comment: Specimen Type: BLOOD SPECIMENOrdering Facility: [facility] Address:[address] [place], [place] [address]Performed By: #### 70635-5 ####[facility]CL[facility] [id number] [place] [address] [place] AMERICAHematocrit (Bld) [Volume fraction]49.8 %Tvecbp78.0-51.0[facility] on above:Order Comment: Specimen Type: BLOOD SPECIMENOrdering Facility: [facility] Address:[address] [place], [place] [address]Performed By: #### 14478-0 ####[facility] LABIA [id number] [place] [address] [place] Hemoglobin (Bld) [Mass/Vol]16.2 g/sPDredyf99.0-17.0[facility] Comment on above:Order Comment: Specimen Type: BLOOD SPECIMENOrdering Facility: [facility] Address:[address] [place] [address] Performed By: #### 12841-0 ####[facility] [id number] [place] [address] [place] MCH (RBC) [Entitic mass]26.6 tcKvgfmo99.0-34.0[facility] - DublinComment on above:Order Comment: Specimen Type: BLOOD SPECIMENOrdering Facility: [facility] Address:[address] [place] [address] Performed By: #### 36472-6 ####[facility] [id number] [place] [address] [place] MCHC (RBC) [Mass/Vol]32.5 g/aJYcquui01.5-36.0[facility] - DublinComment on above:Order Comment: Specimen Type: BLOOD SPECIMENOrdering Facility: [facility] Address:[address] [place] [address] Performed By: #### 85430-8 ####[facility] [id number] [place] [address] [place] MCV (RBC) [Entitic vol]81.6 eUSvnfjv76.0-100.0[facility] DublinComtrinity health [facility] on above:Order Comment: Specimen Type: BLOOD SPECIMENOrdering Facility: [facility] Address:[address] [place] [address] Performed By: #### 09699-4 ####[facility] [id number] [place] [address] [place] Nucleated RBC (Bld) [#/Vol]10*3/uLNormal<0.01[facility] on above:Order Comment: Specimen Type: BLOOD SPECIMENOrdering Facility: [facility] Address:[address] [place] [address] Performed By: #### 63299-6 ####[facility] [id number] [place] [address] [place] Platelet mean volume (Bld) [Entitic vol]11.7 fLNormal9.0-12.7CAultman [facility] on above:Order Comment: Specimen Type: BLOOD SPECIMENOrdering Facility: [facility] Address:[address] [place], [place] [address]Performed By: #### 46515-1 ####[facility] [id number] [place] [address] [place] Platelets (Bld) [#/Vol]156 10*3/tXGzrxpe497-022UlbultzhdCleveland Clinic [facility] on above:Order Comment: Specimen Type: BLOOD SPECIMENOrdering Facility: [facility] Address:[address] [place] [address] Performed By: #### 77188-9 ####[facility] [id number] [place] [address] [place] RBC (Bld) [#/Vol]6.10 10*6/uLHigh4.20-6.00[facility] on above:Order Comment: Specimen Type: BLOOD SPECIMENOrdering Facility: [facility] Address:[address] [place], [place] [address]Performed By: #### 33374-9 ####[facility] [id number] [place] [address] [place] AMERICAWBC (Bld) [#/Vol]7.19 10*3/uLNormal3.70-11.00[facility] on above:Order Comment: Specimen Type: BLOOD SPECIMENOrdering Facility: [facility] Address:[address] [place], [place] [address]Performed By: #### 98227-6 ####[facility] LABCL[facility] [id number] [address] AV[address]UEDES[address]CR SerPl-mCncon 85-67-9371TVR [Mass/Vol]1.3 mg/dLHigh<0.9CAultman [facility]rville [facility] on above:Order Comment: Specimen Type: BLOOD SPECIMENOrdering Facility: [facility] Address:[address] [place], [place] [address]Performed By: #### 1987- 5, HSTNT ####[facility]CL[facility] [id number] [address]EDES[address]ETCT ENTEROGRAPHY W IVCONon 50-36-7723VA ENTEROGRAPHY W IVCONNormalSelect Medical Ohiohealth Rehabilitation Hospital - DublinCT Small bowel W contrast PO and W contrast Shadi 02-55-1856PNNCWHQTBZ: Persistent but improved mild changes of active inflammatory small bowel Crohn's disease with luminal narrowing involving the neoterminal ileum. Scattered fluid-filled upstream small bowel loops, some which are mildly dilated, similar to prior. Penetrating: Absent Hepatic steatosis. Finance Teacher: [facility] HOSPITALSapna Transcribe Date/Time: May 21 2024 3:22P Dictated by : UCHE ACOSTA MD This examination was interpreted and the report reviewed and electronically signed by: UCHE ACOSTA MD on May 21 2024 4:24PM [facility] DIVISION OF RADIOLOGY* * *Final Report* * * DATE OF EXAM: May 21 2024 2:45PM [facility] 0545 - CT ENTEROGRAPHY W [...] Tissues: No acute findings. Lung Bases: Unremarkable. Upsetter Helper (topogram) images: No additional findings. DIVISION OF RADIOLOGYProvider, [facility] [place] - 05/21/2024 * * *Final Report* * * DATE OF EXAM: May 21 2024 2:45PM [facility] 0545 - CT ENTEROGRAPHY W [...] Tissues: No acute findings. Lung Bases: Unremarkable. Upsetter Helper (topogram) images: No additional findings. IMPRESSION IMPRESSION: Persistent but improved mild changes of active inflammatory small bowel Crohn's disease with luminal narrowing involving the neoterminal ileum. Scattered fluid-filled upstream small bowel loops, some which are mildly dilated, similar to prior. Penetrating: Absent Hepatic steatosis. Finance Teacher: PSCSapna Transcribe Date/Time: May 21 2024 3:22P Dictated by : UCHE ACOSTA MD This examination was interpreted and the report reviewed and electronically signed by: UCHE ACOSTA MD on May 21 2024 4:24PM [facility] Small bowel W contrast PO and W contrast IVOrdered By: Ccf Provider on 05-21-2024 [facility] CenterCeruloplasmin SerPl-mCncon 21-44-2364Dymnixitdgfsu [Mass/Vol]20 mg/iAEjqjfq66-66WghkicbuoC[facility] Clinic [facility] on above:Order Comment: Specimen Type: BLOOD SPECIMENOrdering Facility: [facility] Address:[address] [place], [place] [address]Performed By: #### 1825-9, 2063-4, 41614-3, 87816-7 ####[facility]CL[facility] [id number] [place] [address] [place] AMERICAComprehensive metabolic 2000 panelon 35-72-7133Cvqwofs [Mass/Vol]4.9 g/dLNormal3.9-4.9 [facility] on above:Order Comment: Specimen Type: BLOOD SPECIMENOrdering Facility: [facility] Address:[address] [place], [place] [address]Performed By: #### 1825-9, 2063-4, 89518-2, 91304-3 ####[facility] LAB[facility] [id number] [place] [id number] [place] AMERICAALP [Catalytic activity/Vol]119 U/VKdcv27-221SwkehcqinC[facility] Clinic [facility] on above:Order Comment: Specimen Type: BLOOD SPECIMENOrdering Facility: [facility] Address:[address] [place], [place] [address]Performed By: #### 1825-9, 2063-4, 51315-1, 05635-1 ####[facility] [id number] [place] [id number] [place] AMERICAALT [Catalytic activity/Vol]156 U/NHlxk52-01JdkcuoxqbC[facility] Clinic [facility] on above:Order Comment: Specimen Type: BLOOD SPECIMENOrdering Facility: [facility] Address:[address] [place], [place] [address]Performed By: #### 1825- 9, 2063-4, 45744-7, 71429-2 ####[facility] LABCLIA [id number] [place] [id number] [place] AMERICAAnion gap [Moles/Vol]14 mmol/LNormal8-15[facility] on above: Order Comment: Specimen Type: BLOOD SPECIMENOrdering Facility: [facility] Address:[address] [place], [place] [address]Performed By: #### 1825- 9, 2063-, 70200-8, 57354-5 ####[facility] LABCLIA [id number] [place] [id number] [place] AMERICAAST [Catalytic activity/Vol]108 U/IClms05-03MegwvdthpC[facility] Clinic [facility] on above:Order Comment: Specimen Type: BLOOD SPECIMENOrdering Facility: [facility] Address:[address] [place], [place] [address]Performed By: #### 1825-9, 2064-03, 79361-3, 53780-6 ####[facility] LABCLIA [id number] [place] [id number] [place] Bilirubin [Mass/Vol]1.3 mg/dLNormal0.2-1.3CAult[facility] on above:Order Comment: Specimen Type: BLOOD SPECIMENOrdering Facility: [facility] Address:[address] [place], [place] [address]Performed By: #### 1825-9, 2064-03, 07211-4, 25703-3 ####[facility] LABCLIA [id number] [place] [id number] [place] Calcium [Mass/Vol]10.2 mg/dLNormal8.5-10.2CAult[facility] on above:Order Comment: Specimen Type: BLOOD SPECIMENOrdering Facility: [facility] Address:[address] [place], [place] [address]Performed By: #### 1825-9, 2063-4, 43199-7, 19338-5 ####[facility] LABCLIA [id number] [place] [id number] [place] Chloride [Moles/Vol]99 mmol/QKpqbko11-485RaytvhrrhC[facility] Clinic [facility] on above:Order Comment: Specimen Type: BLOOD SPECIMENOrdering Facility: [facility] Address:[address] [place], [place] [address]Performed By: #### 1825-9, 2063-4, 36953-7, 71695-6 ####[facility] LABCLIA [id number] [place] [address] [place] CO2 [Moles/Vol]20 mmol/IArk37-25AevezsambC[facility] Clinic [facility] on above:Order Comment: Specimen Type: BLOOD SPECIMENOrdering Facility: [facility] Address:[address] [place], [place] [address]Performed By: #### 1825- 9, 2063-4, 58971-6, 99953-5 ####[facility] LABCLIA [id number] [place] [address] [place] Creatinine [Mass/Vol]1.01 mg/dLNormal0.73-1.22[facility] on above:Order Comment: Specimen Type: BLOOD SPECIMENOrdering Facility: [facility] Address:[address] [place] [address] Performed By: #### 1825-9, 2063-4, 18708-9, 80070-1 ####[facility] [id number] [place] [address] [place] AMERICACreatinine and Glomerular filtration rate.predicted panel (S/P/Bld)101 mL/min/1.73m???Normal>=60[facility] on above:Order Comment: Specimen Type: BLOOD SPECIMENOrdering Facility: [facility] Address:[address] [place], [place] [address]Result Comment: Estimated Glomerular Filtration Rate (eGFR) is [...] reflect actual GFR.Performed By: #### 1825-9, 2063-, 87835-8, 96259-6 ####[facility] LABCLIA [id number] [address] [address] [place] AMERICAGlucose [Mass/Vol]92 mg/iZEzndka24-47HxrpxjuwsC[facility] Clinic [facility] on above:Order Comment: Specimen Type: BLOOD SPECIMENOrdering Facility: [facility] Address:[address] [place], [place] [address]Result Comment: The [place] [employer] (ADA) provides guidance for cutoff [...] Standards of Medical Care in Diabetes 2016, [place] [employer]. Diabetes Care. 2016.39(Suppl 1). Performed By: #### 1825-9, 2064-03, 70225-1, 10208-2 ####[facility] [id number] [address] [address] [place] AMERICAPotassium [Moles/Vol]4.1 mmol/LNormal3.7-5.1CAultman [facility] on above:Order Comment: Specimen Type: BLOOD SPECIMENOrdering Facility: [facility] Address:[address] [place], [place] [address]Performed By: #### 1825-9, 2063-4, 69827-7, 08680-1 ####[facility] LABCLIA [id number] [place] [id number] [place] AMERICAProtein [Mass/Vol]7.9 g/dLNormal6.3-8.0[facility] on above:Order Comment: Specimen Type: BLOOD SPECIMENOrdering Facility: [facility] Address:[address] [place], [place] [address]Performed By: #### 1825-9, 2063-4, 45213-1, 38100-8 ####[facility] [id number] [place] [id number] [place] AMERICASodium [Moles/Vol]133 mmol/ZPhy902-387EbnamfgvkC[facility] Clinic [facility] on above:Order Comment: Specimen Type: BLOOD SPECIMENOrdering Facility: [facility] Address:[address] [place], [place] [address]Performed By: #### 1825-9, 2063-4, 44412-8, 71527-4 ####[facility] [id number] [place] [id number] [place] AMERICAUrea nitrogen [Mass/Vol]14 mg/dLNormal9-24[facility] on above:Order Comment: Specimen Type: BLOOD SPECIMENOrdering Facility: [facility] Address:[address] [place], [place] [address]Performed By: #### 1825-9, 2063-4, 03532-5, 21644-1 ####[facility] [id number] [place] [id number] [place] AMERICAD dimer FEU PPP-mCncon 05-21-2024 Fibrin D-dimer FEU (PPP) [Mass/Vol]250 ng/mL FEUNormal<500[facility] on above:Order Comment: Specimen Type: BLOOD SPECIMENOrdering Facility: [facility] Address: [address] [place] [address]Jdrffpdzo By: #### 22154-4, 50496-1 ####[facility] [id number] [place] [address] [place] AMERICAHBV DNA Qn (S)on 01-91-1431TMK DNA GERMÁN+probe Qn629 IU/mlNormalSelect Medical [facility] Rehabilitation Hospital - DublinComment on above:Order Comment: Specimen Type: BLOOD SPECIMENOrdering Facility: [facility] Address:[address] [place], [place] [address]Result Comment: HBV DNA Detected by PCR.2.80Performed By: #### 46384-7 ####[facility] [id number] [place] [address] [place] AMERICAHBV core Ab Ser Qlon 40-68-0828MEN core Ab Ql (S)PositiveAbnormalNegativeSelect [facility] Comment on above:Order Comment: Specimen Type: BLOOD SPECIMENOrdering Facility: [facility] Address:[address] [place], [place] [address]Result Comment: The result suggests either current or past infection with Hepatitis B virus. Non-specific reactivity may at times be seen with this test due to some underlying phenomena. Please correlate with HBsAg result and medical history. Performed By: #### 88367-5, 97798-6, 5195-3, 76750-1 ####[facility] [id number] [place] [address] [place] AMERICAHBV surface Ab Ql (S)on 41-95-9841LVD surface Ab Qn (S)<8.00 NormalSelect Medical [facility] - DublinComtr[facility] on above:Order Comment: Specimen Type: BLOOD SPECIMENOrdering Facility: [facility] Address:[address] [place], [place] [address]Result Comment: <8 mIU/mL: No serological evidence of immunity to Hepatitis B Virus.>/= 8 to <12 mIU/mL: No serological evidence of immunity to Hepatitis B Virus.>/= 12 mIU/mL: Consistentwith serological evidence of immunity to Hepatitis B Virus.Performed By: #### 40584-3, 40701-4, 5195-3, 79720-0 ####[facility] [id number] [address] STATES OF AMERICAHBV surface Ab Ser Ql on 40-38-4407OBJ surface Ab Ql (S)NegativeNormalCRegional Medical Center Comment on above:Order Comment: Specimen Type: BLOOD SPECIMENOrdering Facility: [facility] Address:[address] [place], [place] [address]Result Comment: No serological evidence of immunity to Hepatitis B Virus.Performed By: #### 97240-0, 54257-2, 5195-3, 93129-2 ####[facility] [id number] [address] [place] HBV surface Ag Ser Qlon 62-02-6975NSL surface Ag Ql (S)Initially Reactive AbnormalNegativeBarney Children's Medical Centerment on above:Order Comment: Specimen Type: BLOOD SPECIMENOrdering Facility: [facility] Address:[address] [place], [place] [address]Result Comment: Please see HBsAg confirmatory assay result.Confirmatory testing for hepatitis B surface antigen has been ordered and charged.Performed By: #### 52807-1, 90172-1, 5195-3, 20588- 4 ####[facility] [id number] [address] OF [facility]OWNSHIPHBV surface Ag Ql (S)Positive AbnormalNegative, Test not IndicatedC[facility] Clinic [facility] on above: Order Comment: Specimen Type: BLOOD SPECIMENOrdering Facility: [facility] Address:[address] [place], [place] [address]Result Comment: The result is consistent with active Hepatitis B Virus Infection. HBsAg, however, ma y test positive up to few weeks after administration of Hepatitis B vaccine. Clinical correlation is required.Performed By: #### 41847-7, 52182-1, 5195-3, 23858-8 ####[facility] [id number] [place] [address] [place] AMERICAHCV Ab Ser Qlon 01-00-7341JAS Ab Ql (S)PositiveAbnormalNegativeC[facility] on above:Order Comment: Specimen Type: BLOOD SPECIMENOrdering Facility: [facility] Address:[address] [place] [address] Performed By: #### 03465-8, 02645-3 ####[facility] [id number] [place] [address] [place] HCV RNA SerPl GERMÁN+probe-aCncon 29-03-9203DBU RNA GERMÁN+probe QnNot detectedNormal HCV RNA not detected by PCR.[facility] on above:Order Comment: Specimen Type: BLOOD SPECIMENOrdering Facility: [facility] Address:[address] [place], [place] [address]Performed By: #### 03530- 1, 72537-5 ####[facility] [id number] [address] STATES OF AMERICAHEP BE ANTIBODYon 02-91-7412KEL e Ab IA QlNegativeNormalNegCleveland Clinic Luther[facility] HospitalComtr[facility] on above:Order Comment: Specimen Type: BLOOD SPECIMENOrdering Facility: [facility] Address:[address] [place], [place] [address]Result Comment: This test should only be used in patients with a previously known and/or concurrentpositive HBsAG result. Along with HBeAG test, Hepatitis B e antibody test is used for monitoring the natural history of Hepatitis B virus infection and prognostication. Clinical correlation is required.Performed By: #### HBEAG, AHBE ####[facility] [id number] [place] [address] [place] AMERICAHEP BE ANTIGENon 45-71-5363UBM e Ag IA QlPositiveAbnormalNegativeSelect [facility] Comment on above:Order Comment: Specimen Type: BLOOD SPECIMENOrdering Facility: [facility] Address:[address] [place] [address] Performed By: #### HBEAG, AHMICHAEL ####[facility] [id number] [place] [address] [place] HIGH SENSITIVITY TROPONIN Ton 11-59-3652Yycpoytt T.cardiac High sensitivity method [Mass/Vol]8 ng/LNormal<12[facility] on above:Order Comment: Specimen Type: BLOOD SPECIMENOrdering Facility: [facility] Address: [address] [place], [place] [address]Result Comment: When assessing risk for acute coronary [...] 30 day MACE.Performed By: #### 1988-5, HSTNT ####[facility] [id number] [place] [address] [place] AMERICAHIV 1+2 Ab IA Qlon 64-36-1906AZP 1 and 2 Ab IA.rapid Nom (S/P/Bld)NormalC[facility] Clinic [facility] on above:Order Comment: Specimen Type: BLOOD SPECIMENOrdering Facility: [facility] Address: [address] [place], [place] [address]Result Comment: Test not indicated.Performed By: #### 57440-6, 94718-1, 5195-3, 66501-5 ####[facility] [id number] [place] [address] [place] AMERICAHIV 1+2 Ab+HIV1 p24 Ag IA QlNon-ReactiveNormal NonreactiveC[facility] on above:Order Comment: Specimen Type: BLOOD SPECIMENOrdering Facility: [facility] Address: [address] [place], [place] [address]Performed By: #### 35610-2, 94671-5, 5195- 3, 85665-4 ####[facility] [id number] [address] [address] [place] AMERICAHIV immunoassay testing algorithm interpretation (S/P/Bld) [Interp]NormalC[facility] Clinic [facility] on above:Order Comment: Specimen Type: BLOOD SPECIMENOrdering Facility: [facility] Address: [address] [place] [address]Azspah Comment: No evidence of HIV-1 or HIV-2 infection. Should recent infection be suspected, repeat testing may be considered 2-3 weeks after this draw.[place] Rev. Code 3701.243(E): This information has been [...] HIV test results or diagnoses.Performed By: #### 76538-3, 34245-8, 5195-3, 58687-5 ####[facility] [id number] [address] [address] [place] AMERICALKM ABon 78-44-9423IOVHO-KIDNEY MICROSOMAL ABS <1:20Normal<1:20[facility] on above:Order Comment: Specimen Type: BLOOD SPECIMENOrdering Facility: [facility] Address:[address] [place], [place] [address]Cijflf Comment: INTERPRETIVE INFORMATION: Xgpnh-Dbqhis-Ghpgxcwaq Abs, IgGLiver-Kidney Microsome IgGantibody (anti-LKM), as detected byindirect immunofluorescent antibody (IFA) techniques, may beobserved in patients with autoimmune hepatitis type 2 (AIH-2),AIH-2 associated with bctupefromzglbnuohotaeouermt-ynmiepgdybv-iqojvlaupk dystrophy (APECED),viral hepatitis C or D, and some forms of drug-induced hepatitis.This IFA does not differentiate among the four types of LKMantibodies (LKM-1, LKM-2, LKM-3, and a fourth type that etdmdxgwrhUSF3H3 and CY antigens). Of these, anti-LKM-1 (ordvmtpvqwA038PYC6) IgG antibodies are considered specific for AIH- 2.This test was developed and its performance characteristicsdetermined by [facility] It has not been cleared orapproved by the [place] Food and Drug Administration. This test wasperformed in a CLIA certified laboratory and is intended forclinical purposes.Performed By: [address] [address]Ejcbtbkmau Director: Bob Heredia MD, PhDCLIA Number: [id number] By: #### [facility] ####[facility] [id number] [place], [place] [address]Eccekjxcniir Ab IF Ql (S)on 05-21-2024 Mitochondria M2 Ab IA Qn (S)16.3 UnitsNormal<=20.0[facility] Comment on above:Order Comment: Specimen Type: BLOOD SPECIMENOrdering Facility: [facility] Address:[address] [place] [address] Performed By: #### 42073-9, 44155-7 ####[facility] [id number] [address] STATES OF [facility] Mitochondria M2 Ab Ql (S)NegativeNormalNegativeC[facility] on above:Order Comment: Specimen Type: BLOOD SPECIMENOrdering Facility: [facility] Address:[address] [place], [place] [address]Result Comment: Anti-mitochondrial antibody test is used as an aid in diagnosis of primary biliary cholangitis. Clinical correlation is required.Performed By: #### 77332-5, 40295-1 ####[facility] [id number] [place] [address] [place] AMERICANT-proBNP SerPl-mCnc on 00-48-0180Fkndubzozqc peptide.B prohormone N-Terminal [Mass/Vol]<36Normal<125 [facility] on above:Order Comment: Specimen Type: BLOOD SPECIMENOrdering Facility: [facility] Address: [address] [place] [address]Mshvwjmgp By: #### 1825-9, 2064-4, 63146-8, 16567-7 ####[facility] [id number] [place] [address] [place] [facility] HOSPITALuclear Ab IA Ql (S)on 26-20-7064CIY SCR QUALNegativeNormalNegativeC[facility] on above:Order Comment: Specimen Type: BLOOD SPECIMENOrdering Facility: [facility] Address:[address] [place], [place] [address]Result Comment: The qualitative antinuclear antibody screen test performed using the following antigens: dsDNA, Chromatin, Ribosomal P, SS-A 60, SS-A 52, SS-B, Sm, SmRNP, SOUND DESIGNER A, SOUND DESIGNER 68, Scl-70, Dara-1,and Centromere B. Methodology: Multiplex flow immunoassay.Performed By: #### 87705-3 ####[facility] [id number] [place] [id number] [place] AMERICAPT panel Coag (PPP)on 74-19-4691QHB Coag (PPP) [Relative time]1.1 {INR} Normal0.9-1.3CAultman [facility] on above:Order Comment: Specimen Type: BLOOD SPECIMENOrdering Facility: [facility] Address:[address] [place], [place] [address]Result Comment: Vitamin K Antagonist (VKA) Therapeutic Range: INR 2 to 3 (Target INR of 2.5)Note: For patients treated with VKA drugs, such as warfarin, the [employer] 2012 G uideline [...] al. Chest 2012, 141:7S-47SNishimura RA, et al. [facility] 2017, 70: 252-289Performed By: #### 47971-6, 91871-5 ####[facility] [id number] [place] [address] [place] AMERICAPT Coag (PPP) [Time]11.5 sNormal9.7-13.0[facility] on above:Order Comment: Specimen Type: BLOOD SPECIMENOrdering Facility: [facility] Address:[address] [place] [address] Performed By: #### 37932-2, 99468-7 ####[facility] [id number] [place] [address] [place] Smooth muscle Ab Ql (S)on 57-18-7652YYCWL SMOOTH MUSCLE IGG QUALITATIVENegative NormalNegativeC[facility] on above:Order Comment: Specimen Type: BLOOD SPECIMENOrdering Facility: [facility] Address:[address] [place], [place] [address]Performed By: #### 02709-9, 97805-0 ####[facility] [id number] [place] [address] [place] AMERICAACTIN SMOOTH MUSCLE IGG QUANTITATIVE7 UnitsNormal<20[facility] on above:Order Comment: Specimen Type: BLOOD SPECIMENOrdering Facility: [facility] Address:[address] [place], [place] [address]Performed By: #### 93241- 1, 90043-3 ####[facility] [id number] [facility] [place] [address] [place] AMERICACNOVon 19-47-7074AHSX NormalSelect Medical [facility] Hospital - DublinCNPNon 48-69-0868HGCWCrkaybNqydurewj Clinic ClevelandANA SCREEN, IFA, W/REFL TITER AND PATTERNon 09-78-8223YRA SCREEN, IFA PositiveAbnormalNEGATIVEQuest DiagnosticsComment on above:Result Comment: MONA IFA is a first line screen for detecting the presence of up to approximately 150 autoantibodies in various autoimmune diseases. A positive MONA IFA result is suggestive of autoimmune disease and reflexes to titer and pattern. Further laboratory testing may be considered if clinically indicated. For additional information, please refer to http://education.[employer]/faq/SEK764 (This link is being provided for informational/ educational purposes only.)Performed By: #### 899, 06122, 482, %68354, 7600, 496, 68614, 5616, %87917, 866, 6399 #### [facility] [address], [address] [place], [place] [address] Entry Specialist: Jeremías Martinez MDANTINUCLEAR ANTIBODIES TITER AND PATTERNon 91-87-3253RZP PATTERNCytoplasmicAbnormalQuest DiagnosticsComment on above:Result Comment: The presence of cytoplasmic fluorescence was noted on the HEp-2 slide. Other reactivities (e.g., anti- mitochondrial antibodies or anti-smooth muscle antibodies) may be responsible for this fluorescence. The clinical significance of this finding is uncertain. Clinical correlation is recommended. AC-15 to AC-23: Cytoplasmic International Consensus on MONA Patterns (https://doi.org/10.1515/yuqp-2024-5476)Performed By: #### 899, 46804, 482, %06284, 7600, 496, 88006, 5616, %00861, 866, 6399 #### [facility] [address], [address] [place] [phone] Entry Specialist: Jeremías Martinez MDANA TITER1:80HighQuest DiagnosticsComment on above:Result Comment: A low level MONA titer may be present in pre-clinical autoimmune diseases and normal individuals. Reference Range <1:40 Negative 1:40-1:80 Low Antibody Level >1:80 Elevated Antibody LevelPerformed By: #### 899, 01391, 482, %19875, 7600, 496, 43059, 5616, %39815, 866, 6399 #### [facility] of [address], [address] [place] [address] Entry Specialist: Jeremías Martinez MDCBC (INCLUDES DIFF/PLT)on 44-85-3389Lwkobxxkc (Bld) [#/Vol]0.082 10*3/uLNormal0-200Quest DiagnosticsComment on above:Performed By: #### 899, 86104, 482, %83894, 7600, 496, 24765, 5616, %17014, 866, 6399 #### [facility] [address], [address] [place] [address] Entry Specialist: Jeremías Martinez MDBasophils/100 WBC (Bld)1.2 %NormalQuest DiagnosticsComment on above:Performed By: #### 899, 53928, 482, %83502, 7600, 496, 46340, 5616, %79113, 866, 6399 #### [facility] [address], [address] [place] [address] Entry Specialist: Jeremías Martinez MDEosinophils (Bld) [#/Vol]0.442 10*3/uLNormal 15-500Quest DiagnosticsComment on above:Performed By: #### 899, 72170, 482, %40996, 7600, 496, 79191, 5616, %71091, 866, 6399 #### [facility] [address], [address] [place] [address] Entry Specialist: Jeremías KAMosinophils/100 WBC (Bld)6.5 %NormalQuest DiagnosticsComment on above:Performed By: #### 899, 65824, 482, %01874, 7600, 496, 14129, 5616, %25096, 866, 6399 #### [facility] [address], [address] [place] [address] Entry Specialist: Jeremías Martinez MDErythrocyte distribution width (RBC) [Ratio] 17.2 %High11.0-15.0Quest DiagnosticsComment on above:Performed By: #### 899, 95358, 482, %61051, 7600, 496, 09556, 5616, %20582, 866, 6399 #### [facility] [place] [address] Entry Specialist: Jeremías Martinez MDHematocrit (Bld) [Volume fraction]51.3 %High 38.5-50.0Quest DiagnosticsComment on above:Performed By: #### 899, 42309, 482, %89177, 7600, 496, 50996, 5616, %66225, 866, 6399 #### [facility] [place] [address] Entry Specialist: Jeremías Martinez MDHemoglobin (Bld) [Mass/Vol]17.1 g/dLNormal 13.2-17.1Quest DiagnosticsComment on above:Performed By: #### 899, 85977, 482, %83082, 7600, 496, 91666, 5616, %90254, 866, 6399 #### [facility] [place] [address] Entry Specialist: Jeremías Martinez MDLymphocytjanelle (Bld) [#/Vol]1.346 10*3/uLNormal 850-3900Quest DiagnosticsComment on above:Performed By: #### 899, 34807, 482, %01800, 7600, 496, 20608, 5616, %37679, 866, 6399 #### [facility] [place] [address] Entry Specialist: Jeremías Lymphocytes/100 WBC (Bld)19.8 %NormalQuest DiagnosticsComment on above:Performed By: #### 899, 16753, 482, %31742, 7600, 496, 89473, 5616, %29441, 866, 6399 #### [facility] of [address], [address] [place] [address] Entry Specialist: Jeremías Martinez MDMCH (RBC) [Entitic mass]26.9 pgLow27.0-33.0 [facility] DiagnosticsComment on above:Performed By: #### 899, 24410, 482, %44500, 7600, 496, 78592, 5616, %46661, 866, 6399 #### [facility] [place] [address] Entry Specialist: Jeremías ROGERSCHC (RBC) [Mass/Vol]33.3 g/uRPdbijf57.0-36.0 [facility] DiagnosticsComment on above:Performed By: #### 899, 82013, 482, %06039, 7600, 496, 07587, 5616, %44416, 866, 6399 #### [facility] [place] [address] Entry Specialist: Jeremías ROGERSCV (RBC) [Entitic vol]80.7 kROrznbn17.0-100.0 [facility] DiagnosticsComment on above:Performed By: #### 899, 06516, 482, %02738, 7600, 496, 93357, 5616, %09611, 866, 6399 #### [facility] [place] [address] Entry Specialist: Jeremías Martinez MDMonocytes (Bld) [#/Vol]0.428 10*3/uLNormal 200-950Quest DiagnosticsComment on above:Performed By: #### 899, 10490, 482, %22545, 7600, 496, 85776, 5616, %48484, 866, 6399 #### [facility] [place] [address] Entry Specialist: Jeremías Martinez MDMonocytes/100 WBC (Bld)6.3 %NormalQuest DiagnosticsComment on above:Performed By: #### 899, 28734, 482, %33909, 7600, 496, 44926, 5616, %97074, 866, 6399 #### [facility] of [place] [address] Entry Specialist: Jeremías Ramos (Bld) [#/Vol]4.502 10*3/uLNormal 1500-7800Quest DiagnosticsComment on above:Performed By: #### 899, 57765, 482, %35819, 7600, 496, 27958, 5616, %89278, 866, 6399 #### [facility] of [place] [address] Entry Specialist: Jeremías Ramos/100 WBC (Bld)66.2 %NormalQuest DiagnosticsComment on above:Performed By: #### 899, 25891, 482, %90326, 7600, 496, 66888, 5616, %06054, 866, 6399 #### [facility] of [place] [address] Entry Specialist: Jeremías Rodarte mean volume (Bld) [Entitic vol]11.4 fLNormal7.5-12.5Quest DiagnosticsComment on above:Performed By: #### 899, 03254, 482, %77279, 7600, 496, 85612, 5616, %93022, 866, 6399 #### [facility] of [place] [address], [address] [place] [address] Entry Specialist: Jeremías Campbelltemary (Bld) [#/Vol]152 10*3/uLNormal 140-400Quest DiagnosticsComment on above:Performed By: #### 899, 35617, 482, %09995, 7600, 496, 93816, 5616, %85676, 866, 6399 #### [facility] of [place] [address] [facility], [address] [place] [address] Entry Specialist: Jeremías Martinez [facility] ([facility]) [#/Vol]6.36 10*6/uLHigh4.20-5.80 [facility] DiagnosticsComment on above:Performed By: #### 899, 41588, 482, %13062, 7600, 496, 65511, 5616, %74365, 866, 6399 #### [facility] [place] [address] Entry Specialist: Jeremías Martinez [facility] [#/Vol]6.8 10*3/uLNormal3.8-10.8 [facility] DiagnosticsComment on above:Performed By: #### 899, 06203, 482, %76574, 7600, 496, 25034, 5616, %52411, 866, 6399 #### [facility] [place] [address] Entry Specialist: Jeremías Martinez MDCOMPREHENSIVE METABOLIC PANELon 04-09-2024 Albumin [Mass/Vol]5.2 g/dLHigh3.6-5.1Quest DiagnosticsComment on above:Performed By: #### 899, 46840, 482, %78252, 7600, 496, 24994, 5616, %35441, 866, 6399 #### [facility] [place] [address] Entry Specialist: Jeremías Martinez MDAlbumin/Globulin [Mass ratio]1.9 {ratio}Normal 1.0-2.5Quest DiagnosticsComment on above:Performed By: #### 899, 85909, 482, %63311, 7600, 496, 81829, 5616, %00490, 866, 6399 #### [facility] [address], [address] [place] [address] Entry Specialist: Jeremías Martinez MDALP [Catalytic activity/Vol]115 U/LNormal 36-130Quest DiagnosticsComment on above:Performed By: #### 899, 36525, 482, %59803, 7600, 496, 80464, 5616, %40422, 866, 6399 #### [facility] [address], [address] [place] [address] Entry Specialist: Jeremías Martinez MDALT [Catalytic activity/Vol]204 U/LHigh9-46 [facility] DiagnosticsComment on above:Performed By: #### 899, 61817, 482, %05659, 7600, 496, 33248, 5616, %81477, 866, 6399 #### [facility] [address], [address] [place] [address] Entry Specialist: Jeremías Martinez MDAST [Catalytic activity/Vol]161 U/TJagw96-00 [facility] DiagnosticsComment on above:Performed By: #### 899, 80505, 482, %03403, 7600, 496, 22356, 5616, %26862, 866, 6399 #### [facility] [address], [address] [place] [address] Entry Specialist: Jeremías Martinez MDBilirubin [Mass/Vol]1.2 mg/dLNormal0.2-1.2 [facility] DiagnosticsComment on above:Performed By: #### 899, 41506, 482, %71011, 7600, 496, 27716, 5616, %38986, 866, 6399 #### [facility] [place] [address] Entry Specialist: Jeremías Martinez MDBUN/CREATININE RATIOSEE NOTE:Normal6-22Quest DiagnosticsComment on above:Result Comment: Not Reported: BUN and Creatinine are within reference range.Performed By: #### 899, 39209, 482, %00786, 7600, 496, 66419, 5616, %26769, 866, 6399 #### [facility] [address], [address] [place] [address] Entry Specialist: Jeremías Martinez MDCalcium [Mass/Vol]10.2 mg/dLNormal8.6-10.3 [facility] DiagnosticsComment on above:Performed By: #### 899, 52775, 482, %87277, 7600, 496, 27152, 5616, %02351, 866, 6399 #### [facility] [place] [address] Entry Specialist: Jeremías Martinez MDChloride [Moles/Vol]103 mmol/UOcpgkm61-704 [facility] DiagnosticsComment on above:Performed By: #### 899, 47119, 482, %70486, 7600, 496, 35034, 5616, %12372, 866, 6399 #### [facility] [place] [address] Entry Specialist: Jeremías Martinez MDCO2 [Moles/Vol]21 mmol/NXbfywr14-13Bqxmi DiagnosticsComment on above:Performed By: #### 899, 09780, 482, %54334, 7600, 496, 61117, 5616, %30074, 866, 6399 #### [facility] [place] [address] Entry Specialist: Jeremías MCNAIRreatinine [Mass/Vol]0.89 mg/dLNormal0.60-1.26 [facility] DiagnosticsComment on above:Performed By: #### 899, 26531, 482, %71116, 7600, 496, 26988, 5616, %74198, 866, 6399 #### [facility] [place] [address] Entry Specialist: Jeremías Martinez MDGFR/1.73 sq M.predicted among non-blacks MDRD (S/P/Bld) [Vol rate/Area]117 mL/min/{1.73_m2}Normal> OR = 60[facility] Comment on above:Performed By: #### 899, 80867, 482, %92350, 7600, 496, 06702, 5616, %38965, 866, 6399 #### [facility] [address], [address] [place] [address] Entry Specialist: Jeremías Martinez MDGlobulin (S) [Mass/Vol]2.8 g/dLNormal1.9-3.7 [facility] DiagnosticsComment on above:Performed By: #### 899, 05239, 482, %80496, 7600, 496, 38174, 5616, %35832, 866, 6399 #### [facility] [address], [address] [place] [address] Entry Specialist: Jeremías Martinez MDGlucose [Mass/Vol]108 mg/qZWfvr76-72Tpeqb DiagnosticsComment on above:Result Comment: Fasting reference interval For someone without known diabetes, a glucose value between 100 and 125 mg/dL is consistent with prediabetes and should be confirmed with a follow-up test.Performed By: #### 899, 03856, 482, %88628, 7600, 496, 13372, 5616, %34495, 866, 6399 #### [facility] [place] [address] Entry Specialist: Jeremías Martinez MDPotassium [Moles/Vol]4.3 mmol/LNormal3.5-5.3 [facility]osticsComment on above:Performed By: #### 899, 14682, 482, %04161, 7600, 496, 42311, 5616, %11276, 866, 6399 #### [facility] [address], [address] [place], [place] [address] Entry Specialist: Jeremías Martinez MDProtein [Mass/Vol]8.0 g/dLNormal6.1-8.1Quest DiagnosticsComment on above:Performed By: #### 899, 35478, 482, %79384, 7600, 496, 72267, 5616, %17086, 866, 6399 #### [facility] [address], [address] [place] [address] Entry Specialist: Jeremías Martinez MDSodium [Moles/Vol]136 mmol/MZvyutw262-260Aaaxc DiagnosticsComment on above:Performed By: #### 899, 90739, 482, %85189, 7600, 496, 45977, 5616, %09826, 866, 6399 #### [facility] [address], [address] [place] [address] Entry Specialist: Jeremías Martinez MDUrea nitrogen [Mass/Vol]10 mg/dLNormal7-25 [facility] DiagnosticsComment on above:Performed By: #### 899, 28285, 482, %31581, 7600, 496, 89772, 5616, %23246, 866, 6399 #### [facility] [address], [address] [place] [address] Entry Specialist: Jeremías Martinez MDCORTISOL, TOTALon 42-56-2550XTBOTKRD, TOTAL 12.9 mcg/dLNormalQuest DiagnosticsComment on above:Result Comment: Reference Range: For 8 a.m.(7-9 a.m.) Specimen: 4.0-22.0 Reference Range: For 4 p.m.(3-5 p.m.) Specimen: 3.0-17.0 * Please interpret above results accordingly *Performed By: #### 899, 71801, 482, %86231, 7600, 496, 36208, 5616, %04404, 866, 6399 #### [facility] [address], [address] [place] [address] Entry Specialist: Jeremías Martinez MDGGTon 27-35-9519Umowg glutamyl transferase [Catalytic activity/Vol]199 U/LHigh3-90Quest DiagnosticsComment on above: Performed By: #### 899, 11278, 482, %43015, 7600, 496, 11008, 5616, %95356, 866, 6399 #### [facility] [address], [address] [place] [address] Entry Specialist: Jeremías Martinez MDHCV RNA, QUANTITATIVE REAL TIME PCRon 38-87-5864WRUUMFIOgnbtpJfsjk DiagnosticsComment on above:Result Comment: This test was performed using Real-Time Polymerase Chain Reaction. Reportable Range: 15 IU/mL to 100,000,000 IU/mL (1.18 Log IU/mL to 8.00 Log IU/mL). The analytical performance characteristics of this assay have been determined by [employer] The modifications have not been cleared or approved by the FDA. This assay has been validated pursuant to the CLIA regulations and is used for clinical purposes. For more information on this test, go to: http://education.[employer]/faq/GNX75s3 (This link is being provided for informational/ educational purposes only.) This assay is intended for use as an aid in the diagnosis of HCV infection and the management of HCV infected patients undergoing anti-viral therapy.Performed By: #### 899, 86841, 482, %48931, 7600, 496, 96728, 5616, %78392, 866, 6399 #### [facility] [address], [address] [place] [address] Entry Specialist: Jeremías Martinez MDHCV RNA, QUANTITATIVE REAL TIME PCRNot detectedNormalNOT DETECTEDQuest DiagnosticsComment on above:Performed By: #### 899, 03969, 482, %26200, 7600, 496, 56365, 5616, %50688, 866, 6399 #### [facility] [address], [address] [place] [address] Entry Specialist: Jeremías Martinez MDResult Comment: HCV RNA is [...] diagnosis of diabetes in children. According to [place] Diabetes Association (ADA) guidelines, hemoglobin A1c <7.0% represents optimal control in non- diabetic patients. Different metrics may apply to specific patient populations. Standards of Medical Care in Diabetes(ADA). This test was performed on the Susannah antione c503 platform. Effective 11/17/23, a change in test platforms from the [employer] to the Susannah antione c503 may have shifted HbA1c results compared to historical results. Based on laboratory validation testing conducted at [facility], the Susannah platform relative to the [place] [...] platforms is not recommended.Performed By: #### 899, 89705, 482, %92451, 7600, 496, 53596, 5616, %59007, 866, 6399 #### [employer] [address], [address] [place] [address] Entry Specialist: Jeremías BARRIGA PANEL, ACUTE W/REFLEX TO CONFIRMATIONon 57-32-4673SEGZIBHYO A SBUXbc-XllnctdrLtphqwYXJ-CQTXISRAOjbfl DiagnosticsComment on above:Result Comment: For additional information, please refer to http://education.[employer]Arrow/faq/INM388 (This link is being provided for informational/ educational purposes only.)Performed By: #### 899, 45858, 482, %28485, 7600, 496, 22235, 5616, %07360, 866, 6399 #### [employer] [facility] [facility] [address], [address] [place] [address] Entry Specialist: Jeremías Merati MDHEPATITIS B CORE ANTIBODY (IGM)Non-Reactive NormalNON-REACTIVEQuest DiagnosticsComment on above:Result Comment: For additional information, please refer to http://Sqoot.[employer]Arrow/faq/WVK769 (This link is being provided for informational/ educational purposes only.)Performed By: #### 899, 68170, 482, %74464, 7600, 496, 73267, 5616, %68582, 866, 6399 #### [facility] [address], [address] [place] [address] Entry Specialist: Jeremías BARRIGA B SURFACE ANTIGENReactiveAbnormal NON-REACTIVEQuest DiagnosticsComment on above:Result Comment: For additional information, please refer to http://Sqoot.[employer]Arrow/faq/ZIL678 (This link is being provided for informational/ educational purposes only.)Performed By: #### 899, 02942, 482, %97105, 7600, 496, 77718, 5616, %29179, 866, 6399 #### [facility] [address], [address] [place] [address] Entry Specialist: Jeremías BARRIGA C ANTIBODYReactiveAbnormal NON-REACTIVEQuest DiagnosticsComment on above:Result Comment: Based on this result, the sample will be tested for HCV RNA by a Nucleic Acid Amplification Test (NAAT) to determine if the patient has a current active infection.Performed By: #### 899, 12762, 482, %55766, 7600, 496, 06458, 5616, %21259, 866, 6399 #### [facility] [address], [address] [place] [address] Entry Specialist: Jeremías HEATON, TIBC AND FERRITIN PANELon 04-09-2024% XEEBIKDQAV60 % (calc)Rrhe96-73Yvewg DiagnosticsComment on above:Order Comment: NON-FASTING NON-FASTING NON-FASTING NON-FASTING NON-FASTING NON-FASTINGPerformed By: #### 899, 91700, 482, %43834, 7600, 496, 11306, 5616, %98197, 866, 6399 #### [facility] [address], [address] [place], [place] [address] Entry Specialist: Jeremías Martinez MDFerritin [Mass/Vol]302 ng/kBHrkuxh10-775Fvysk DiagnosticsComment on above:Order Comment: NON-FASTING NON-FASTING NON-FASTING NON-FASTING NON-FASTING NON-FASTINGPerformed By: #### 899, 42206, 482, %74530, 7600, 496, 12978, 5616, %62485, 866, 6399 #### [facility] [address], [address] [place] [address] Entry Specialist: Jeremías HEATON BINDING XDTSBUKV793 mcg/dL (calc)Normal 250-425Quest DiagnosticsComment on above:Order Comment: NON-FASTING NON-FASTING NON-FASTING NON-FASTING NON-FASTING NON-FASTINGPerformed By: #### 899, 44432, 482, %95919, 7600, 496, 95114, 5616, %50696, 866, 6399 #### [facility] [place] [address] Entry Specialist: Jeremías HEATON, ZDLRG776 mcg/yGKjhk21-338Vkdox DiagnosticsComment on above:Order Comment: NON-FASTING NON-FASTING NON-FASTING NON-FASTING NON-FASTING NON-FASTINGPerformed By: #### 899, 19521, 482, %07657, 7600, 496, 02194, 5616, %05260, 866, 6399 #### [facility] [address], [address] [place], [place] [address] Entry Specialist: Jeremías Martinez MDLIPID PANEL, STANDARDon 59-45-6460Glxlzohodjh [Mass/Vol]226 mg/dLHigh<200Quest DiagnosticsComment on above:Performed By: #### 899, 10110, 482, %10598, 7600, 496, 51045, 5616, %92858, 866, 6399 #### [facility] [address], [address] [place] [address] Entry Specialist: Jeremías Martinez MDCholesterol in HDL [Mass/Vol]56 mg/dLNormal> OR = 40Quest DiagnosticsComment on above:Performed By: #### 899, 54198, 482, %39377, 7600, 496, 56768, 5616, %62536, 866, 6399 #### [facility] [address], [address] [place] [address] Entry Specialist: Jeremías MCNAIRholesterol in LDL [Mass/Vol]134 mg/dLHigh Quest [...] LDL-C. Markell FRANK et al. TIFFANI. 2013;310(19): 3150-5535 (http://education.IceRocket.BlackArrow/faq/RVM842)Performed By: #### 899, 78129, 482, %04249, 7600, 496, 60563, 5616, %58854, 866, 6399 #### [facility] [address], [address] [place] [address] Entry Specialist: Jeremías Denneystadeola.total/Cholesterol in HDL [Mass ratio]4.0 {ratio}Normal<5.0Quest DiagnosticsComment on above:Performed By: #### 899, 57757, 482, %37875, 7600, 496, 53599, 5616, %08888, 866, 6399 #### [facility] [address], [address] [place], [place] [address] Entry Specialist: Jeremías AIKEN HDL XXXXMDLJXTX585 mg/dL (calc)High<130 [facility] DiagnosticsComment on above:Result Comment: For patients with diabetes plus 1 major ASCVD risk factor, treating to a non-HDL-C goal of <100 mg/dL (LDL-C of <70 mg/dL) is considered a therapeutic option.Performed By: #### 899, 33127, 482, %74044, 7600, 496, 40693, 5616, %83723, 866, 6399 #### [facility] [address], [address] [place] [address] Entry Specialist: Jeremías Martinez MDTriglyceride [Mass/Vol]218 mg/dLHigh<150Quest DiagnosticsComment on above:Result Comment: If a non-fasting specimen was collected, consider repeat triglyceride testing on a fasting specimen if clinically indicated. Gopal et al. J. of Clin. Lipidol. 2015;9:129-169.Performed By: #### 899, 36543, 482, %68945, 7600, 496, 81531, 5616, %75451, 866, 6399 #### [facility] [address], [address] [place] [address] Entry Specialist: Jeremías [address] [place] [address] 63-56-8334Pggl T4 [Mass/Vol]1.2 ng/dLNormal0.8-1.8Quest DiagnosticsComment on above:Performed By: #### 899, 54934, 482, %90927, 7600, 496, 77771, 5616, %46728, 866, 6399 #### [facility] [address], [address] [place] [address] Entry Specialist: Jeremías CASTANONarhs 36-69-5991MHR Qn2.17 m[IU]/LNormal 0.40-4.50Quest DiagnosticsComment on above:Performed By: #### 899, 99093, 482, %83540, 7600, 496, 17303, 5616, %62267, 866, 6399 #### [facility] [address], [address] [place] [address] Entry Specialist: Jeremías Martinez MDCNOVon 95-89-0213VRTWJgkubiHcdlaudfn [facility] HospitalVIBRATION CONTROLLED TRANSIENT ELASTOGRAPHY (POC)on 60-85-1346Lyzjmynhb ClinicCNPNon 60-54-0657ERPCFyhbkfLfkmprsgw Clinic ClevelandC-REACTIVE PROTEIN (CRP)on 88-08-6989HUY [Mass/Vol]<0.9 mg/dLParma Community General Hospital W Auto Differential panel (Bld)on 96-84-6426Eehdnqfbg (Bld) [#/Vol]0.12 10*3/uLHigh <0.11Avon HospitalComment on above:Order Comment: Specimen Type: BLOOD SPECIMEN Ordering Facility: [facility] Address: [address] [place], [place] [address]Performed By: #### 17098-8 #### [facility] [place] [id number] [address] [place] [address] [place] AMERICABasophils/100 WBC (Bld)1.5 %NormalAv HospitalComment on above:Order Comment: Specimen Type: BLOOD SPECIMEN Ordering Facility: [facility] Address: [address] [place], [place] [address]Performed By: #### 37608-8 #### [facility] [place] [id number] [address] [place] [address] [place] AMERICADifferential cell count method Nom (Bld) AutoNormalAvon HospitalComment on above:Order Comment: Specimen Type: BLOOD SPECIMEN Ordering Facility: [facility] Address: [address] [place], [place] [address]Performed By: #### 04118-3 #### [facility] IA [id number] [address] [place] [address] [place] AMERICAEosinophils (Bld) [#/Vol]0.74 10*3/uLHigh <0.46Avon HospitalComment on above:Order Comment: Specimen Type: BLOOD SPECIMEN Ordering Facility: [facility] Address: [address] [place], [place] [address]Performed By: #### 52324-9 #### [facility] CLIA [id number] [address] [place] [address] [place] AMERICAEosinophils/100 WBC (Bld)9.0 %NormalAv HospitalComment on above:Order Comment: Specimen Type: BLOOD SPECIMEN Ordering Facility: [facility] Address: [address] [place], [place] [address]Performed By: #### 10032-1 #### [facility] IA [id number] [address] [place] [address] [place] AMERICAErythrocyte distribution width (RBC) [Ratio]14.1 %Ojivja87.5-15.0Av HospitalComment on above:Order Comment: Specimen Type: BLOOD SPECIMEN Ordering Facility: [facility] Address: [address] [place], [place] [address]Performed By: #### 60580-9 #### [facility] IA [id number] [place] [address] [place] OF AMERICAHematocrit (Bld) [Volume fraction]53.2 % High39.0-51.0Av HospitalComment on above:Order Comment: Specimen Type: BLOOD SPECIMEN Ordering Facility: [facility] Address: [address] [place], [place] [address]Performed By: #### 00092-5 #### [facility] IA [id number] [address] [place] [address] [place] AMERICAHemoglobin (Bld) [Mass/Vol]17.8 g/dLHigh 13.0-17.0Av HospitalComment on above:Order Comment: Specimen Type: BLOOD SPECIMEN Ordering Facility: [facility] Address: [address] [place], [place] [address]Performed By: #### 58639-2 #### [facility] IA [id number] [place] [address] [place] AMERICAImmature granulocytes (Bld) [#/Vol]0.06 10*3/uLNormal<0.10Avon HospitalComment on above:Order Comment: Specimen Type: BLOOD SPECIMEN Ordering Facility: [facility] Address: [address] [place], [place] [address]Performed By: #### 98889-3 #### [facility] IA [id number] [address] [place] [address] [place] AMERICAImmature granulocytes/100 WBC (Bld)0.7 % NormalAv HospitalComment on above:Order Comment: Specimen Type: BLOOD SPECIMEN Ordering Facility: [facility] Address: [address] [place], [place] [address]Performed By: #### 87326-4 #### [facility] IA [id number] [address] [place] [address] [place] AMERICALymphocytes (Bld) [#/Vol]1.48 10*3/uL Normal1.00-4.00Av HospitalComment on above:Order Comment: Specimen Type: BLOOD SPECIMEN Ordering Facility: [facility] Address: [address] [place], [place] [address]Performed By: #### 13371-7 #### [facility] IA [id number] [address] [place] [address] [place] AMERICALymphocytes/100 WBC (Bld)18.1 %NormalAv HospitalComment on above:Order Comment: Specimen Type: BLOOD SPECIMEN Ordering Facility: [facility] Address: [address] [place], [place] [address]Performed By: #### 32963-8 #### [facility] IA [id number] [address] [place] [address] [facility] (RBC) [Entitic mass]26.5 pgNormal 26.0-34.0Av HospitalComment on above:Order Comment: Specimen Type: BLOOD SPECIMEN Ordering Facility: [facility] Address: [address] [place], [place] [address]Performed By: #### 16064-5 #### [facility] IA [id number] [address] [place] [address] [facility] (RBC) [Mass/Vol]33.5 g/dLNormal 30.5-36.0Av HospitalComment on above:Order Comment: Specimen Type: BLOOD SPECIMEN Ordering Facility: [facility] Address: [address] [place], [place] [address]Performed By: #### 43992-3 #### [facility] IA [id number] [address] [place] [address] [place] AMERICAMCV (RBC) [Entitic vol]79.2 fLLow 80.0-100.0Av HospitalComment on above:Order Comment: Specimen Type: BLOOD SPECIMEN Ordering Facility: [facility] Address: [address] [place], [place] [address]Performed By: #### 81226-6 #### [facility] IA [id number] [address] [place] [address] [place] AMERICAMonocytes (Bld) [#/Vol]0.60 10*3/uLNormal <0.87Av HospitalComment on above:Order Comment: Specimen Type: BLOOD SPECIMEN Ordering Facility: [facility] Address: [address] [place], [place] [address]Performed By: #### 16654-2 #### [facility] IA [id number] [address] [place] [address] [place] AMERICAMonocytes/100 WBC (Bld)7.3 %NormalAv HospitalComment on above:Order Comment: Specimen Type: BLOOD SPECIMEN Ordering Facility: [facility] Address: [address] [place], [place] [address]Performed By: #### 49846-2 #### [facility] IA [id number] [address] [place] [address] [place] AMERICANeutrophils (Bld) [#/Vol]5.19 10*3/uL Normal1.45-7.50Av HospitalComment on above:Order Comment: Specimen Type: BLOOD SPECIMEN Ordering Facility: [facility] Address: [address] [place], [place] [address]Performed By: #### 55360-2 #### [facility] IA [id number] [address] [place] [address] [place] AMERICANeutrophils/100 WBC (Bld)63.4 %NormalAvon HospitalComment on above:Order Comment: Specimen Type: BLOOD SPECIMEN Ordering Facility: [facility] Address: [address] [place], [place] [address]Performed By: #### 45348-1 #### [facility] IA [id number] [address] [place] [address] [place] AMERICANucleated RBC (Bld) [#/Vol]10*3/uLNormal <0.01Avon HospitalComment on above:Order Comment: Specimen Type: BLOOD SPECIMEN Ordering Facility: [facility] Address: [address] [place], [place] [address]Performed By: #### 60992-2 #### [facility] IA [id number] [address] [place] [address] [place] AMERICANucleated RBC/100 WBC (Bld) [Ratio]0.0 /100 WBCNormalAvon HospitalComment on above:Order Comment: Specimen Type: BLOOD SPECIMEN Ordering Facility: [facility] Address: [address] [place], [place] [address]Performed By: #### 11309-9 #### [facility] IA [id number] [address] [place] [address] [place] AMERICAPlatelet mean volume (Bld) [Entitic vol] 12.2 fLNormal9.0-12.7Avon HospitalComment on above:Order Comment: Specimen Type: BLOOD SPECIMEN Ordering Facility: [facility] Address: [address] [place], [place] [address]Performed By: #### 96481-0 #### [facility] IA [id number] [address] [place] [address] [place] AMERICAPlatelets (Bld) [#/Vol]218 10*3/uLNormal 150-400Avon HospitalComment on above:Order Comment: Specimen Type: BLOOD SPECIMEN Ordering Facility: [facility] Address: [address] [place], [place] [address]Performed By: #### 58543-7 #### [facility] IA [id number] [address] [place] [address] [place] AMERICARBC (Bld) [#/Vol]6.72 10*6/uLHigh 4.20-6.00Milwaukee HospitalComment on above:Order Comment: Specimen Type: BLOOD SPECIMEN Ordering Facility: [facility] Address: [address] [place], [place] [address]Performed By: #### 14211-2 #### [facility] IA [id number] [address] [place] [address] [place] AMERICAWBC (Bld) [#/Vol]8.19 10*3/uLNormal 3.70-11.00Av HospitalComment on above:Order Comment: Specimen Type: BLOOD SPECIMEN Ordering Facility: [facility] Address: [address] [place], [place] [address]Performed By: #### 16945-7 #### [facility] IA [id number] [address] [place] [address] [place] AMERICABasophils (Bld) [#/Vol]0.12 10*3/uLHigh <0.11 k/uLThe University Of Toledo Medical CenterBasophils/100 WBC (Bld)1.5 %[facility] Differential cell count method Nom (Bld)AutoCleveland ClinicEosinophils (Bld) [#/Vol]0.74 10*3/uLHigh<0.46 k/uLCleThe MetroHealth SystemEosinophils/100 WBC (Bld)9.0 % [facility] Medical CenterErythrocyte distribution width (RBC) [Ratio]14.1 %11.5 - 15.0 % [facility] Medical CenterHematocrit (Bld) [Volume fraction]53.2 %High39.0 - 51.0 % [facility] CenterHemoglobin (Bld) [Mass/Vol]17.8 g/oPXqzj76.0 - 17.0 g/dL [facility] CenterImmature granulocytes (Bld) [#/Vol]0.06 10*3/uL<0.10 k/uL [facility] CenterImmature granulocytes/100 WBC (Bld)0.7 %[facility] Lymphocytes (Bld) [#/Vol]1.48 10*3/uL1.00 - 4.00 k/uLThe University Of [facility] Medical Center Lymphocytes/100 WBC (Bld)18.1 %[facility] HospitalH (RBC) [Entitic mass]26.5 pg 26.0 - 34.0 pgClevelMercy Health Springfield Regional Medical CenterMCHC (RBC) [Mass/Vol]33.5 g/dL30.5 - 36.0 g/dL [facility]igh HospitalV (RBC) [Entitic vol]79.2 fLLow80.0 - 100.0 fLClevelMercy Health Springfield Regional Medical Center Monocytes (Bld) [#/Vol]0.60 10*3/uL<0.87 k/uLThe University Of Toledo Medical CenterMonocytes/100 WBC (Bld)7.3 %[facility] Medical CenterNeutrophils (Bld) [#/Vol]5.19 10*3/uL1.45 - 7.50 k/uL [facility] CenterNeutrophils/100 WBC (Bld)63.4 %[facility] Medical CenterNucleated RBC (Bld) [#/Vol]<0.01 k/uLThe University Of Toledo Medical CenterNucleated RBC/100 WBC (Bld) [Ratio]0.0 /100 WBCThe University Of Toledo Medical CenterPlatelet mean volume (Bld) [Entitic vol]12.2 fL9.0 - 12.7 fLClevelatrium health mercy ClinicPlatelets (Bld) [#/Vol]218 10*3/uL150 - 400 k/[facility] HospitalRBC (Bld) [#/Vol]6.72 10*6/uLHigh4.20 - 6.00 m/[facility] HospitalWBC (Bld) [#/Vol]8.19 10*3/uL3.70 - 11.00 k/uLThe University Of Toledo Medical CenterCNOVon 08-73-0055ECXT NormalThe [facility] Center ClevelandCRP SerPl-mCncon 44-47-2708RNG [Mass/Vol]mg/L Normal<0.9Avon HospitalComment on above:Order Comment: Specimen Type: BLOOD SPECIMEN Ordering Facility: [facility] Address: [address] [place] [address]Ttqsrtkgk By: #### 1988-5, 14268-4 #### [facility] CLIA [id number] [facility] [place] [address] [place] AMERICAComprehensive metabolic 2000 panelon 20-80-6898Gdipfdt [Mass/Vol]5.0 g/dLHigh3.9-4.9Ajefferson washington township hospital ([facility]) HospitalComment on above: Order Comment: Specimen Type: BLOOD SPECIMEN Ordering Facility: [facility] Address: [address] [place], [place] [address]Pzaksbvwn By: #### 1988-03, #### [facility] CLIA [id number] [address] [place] [address] [place] AMERICAALP [Catalytic activity/Vol]124 U/LHigh 38-113Milwaukee HospitalComment on above:Order Comment: Specimen Type: BLOOD SPECIMEN Ordering Facility: [facility] Address: [address] [place] [id number] By: #### 1988-03, #### [facility] IA [id number] [address] [place] [address] [place] AMERICAALT [Catalytic activity/Vol]133 U/LHigh 10-54Av HospitalComment on above:Order Comment: Specimen Type: BLOOD SPECIMEN Ordering Facility: [facility] Address: [address] [place], [place] [id number] By: #### 1988-03, #### [facility] IA [id number] [address] [place] [address] [place] AMERICAAnion gap [Moles/Vol]13 mmol/LNormal9-18 [place] HospitalComment on above:Order Comment: Specimen Type: BLOOD SPECIMEN Ordering Facility: [facility] Address: [address] [place] [address]Jtflbooeu By: #### 1988-03, #### [facility] CLIA [id number] [address] [place] [address] [place] AMERICAAST [Catalytic activity/Vol]78 U/LHigh 14-40Avon HospitalComment on above:Order Comment: Specimen Type: BLOOD SPECIMEN Ordering Facility: [facility] Address: [address] [place], [place] [address]Performed By: #### #### [facility] CLIA [id number] [address] [place] [address] [place] AMERICABilirubin [Mass/Vol]0.5 mg/dLNormal 0.2-1.3Avon HospitalComment on above:Order Comment: Specimen Type: BLOOD SPECIMEN Ordering Facility: [facility] Address: [address] [place], [place] [address]Performed By: #### #### [facility] IA [id number] [address] [place] [address] [place] AMERICACalcium [Mass/Vol]9.6 mg/dLNormal8.5-10.2 Gavi HospitalComment on above:Order Comment: Specimen Type: BLOOD SPECIMEN Ordering Facility: [facility] Address: [address] [place], [place] [address]Performed By: #### #### [facility] IA [id number] [address] [place] [address] [place] AMERICAChloride [Moles/Vol]102 mmol/LNormal 97-105Av HospitalComment on above:Order Comment: Specimen Type: BLOOD SPECIMEN Ordering Facility: [facility] Address: [address] [place], [place] [address]Performed By: #### #### [facility] IA [id number] [address] [place] [address] [place] AMERICACO2 [Moles/Vol]22 mmol/UMwywjs10-26Isxe HospitalComment on above:Order Comment: Specimen Type: BLOOD SPECIMEN Ordering Facility: [facility] Address: [address] [place], [place] [address]Performed By: #### 1988-03, #### [facility] IA [id number] [address] [place] [address] [place] AMERICACreatinine [Mass/Vol]1.04 mg/dLNormal 0.73-1.22Av HospitalComment on above:Order Comment: Specimen Type: BLOOD SPECIMEN Ordering Facility: [facility] Address: [address] [place] [address]Iqatotsbn By: #### 1988-03, 16175-5 #### [facility] CLIA [id number] [address] [place] [address] [place] AMERICACreatinine and Glomerular filtration rate.predicted panel (S/P/Bld)98 mL/min/1.73m???Normal>=60Av HospitalComment on above:Order Comment: Specimen Type: BLOOD SPECIMEN Ordering Facility: [facility] Address: [address] [place] [address]Ibpnkr Comment: Estimated Glomerular Filtration Rate (eGFR) is [...] reflect actual GFR.Performed By: #### 1988-03, #### [facility] CLIA [id number] [address] [place] [address] [place] AMERICAGlucose [Mass/Vol]106 mg/dJKxdh02-25Qhzi HospitalComment on above:Order Comment: Specimen Type: BLOOD SPECIMEN Ordering Facility: [facility] Address: [address] [place] [address]Krswzh Comment: The [place] Diabetes Association (ADA) provides guidance for cutoff [...] Standards of Medical Care in Diabetes 2016, [place] [employer] Association. Diabetes Care. 2016.39(Suppl 1).Performed By: #### 1988-03, #### [facility] IA [id number] [address] [place] [address] [place] AMERICAPotassium [Moles/Vol]4.7 mmol/LNormal 3.7-5.1Ajefferson washington township [facility] ([facility]) HospitalComment on above:Order Comment: Specimen Type: BLOOD SPECIMEN Ordering Facility: [facility] Address: [address] [place], [place] [address]Performed By: #### 1988-03, #### [facility] IA [id number] [address] [place] [address] [place] AMERICAProtein [Mass/Vol]7.9 g/dLNormal6.3-8.0 [place] HospitalComment on above:Order Comment: Specimen Type: BLOOD SPECIMEN Ordering Facility: [facility] Address: [address] [place], [place] [address]Performed By: #### #### [facility] IA [id number] [address] [place] [address] [place] AMERICASodium [Moles/Vol]137 mmol/INiwlxo582-805 [place] HospitalComment on above:Order Comment: Specimen Type: BLOOD SPECIMEN Ordering Facility: [facility] Address: [address] [place], [place] [address]Performed By: #### #### [facility] IA [id number] [address] [place] [address] [place] AMERICAUrea nitrogen [Mass/Vol]11 mg/dLNormal 9-24Milwaukee HospitalComment on above:Order Comment: Specimen Type: BLOOD SPECIMEN Ordering Facility: [facility] Address: [address] [place], [place] [address]Performed By: #### 1988-03, #### [facility] IA [id number] [address] [place] [address] [place] AMERICAAlbumin [Mass/Vol]5.0 g/dLHigh3.9 - 4.9 g/dLProtestant Deaconess Hospitalveland ClinicALP [Catalytic activity/Vol]124 U/LHigh38 - 113 U/LCleveland ClinicALT [Catalytic activity/Vol]133 U/LHigh10 - 54 U/LCleveland ClinicAnion gap [Moles/Vol]13 mmol/L9 - 18 mmol/LCleveland ClinicAST [Catalytic activity/Vol]78 U/LHigh14 - 40 U/LCleveland ClinicBilirubin [Mass/Vol]0.5 mg/dL 0.2 - 1.3 mg/dLCledunlap memorial hospital ClinicCalcium [Mass/Vol]9.6 mg/dL8.5 - 10.2 mg/dL [facility] ClinicChloride [Moles/Vol]102 mmol/L97 - 105 mmol/LCleveland ClinicCO2 [Moles/Vol]22 mmol/L22 - 30 mmol/LCleveland ClinicCreatinine [Mass/Vol]1.04 mg/dL0.73 - 1.22 mg/dLThe University Of Toledo Medical CenterEstimated Glomerular Filtration Rate98 mL/min/1.73m>=60 mL/min/1.73mCleveland ClinicGlucose [Mass/Vol]106 mg/zTMysk39 - 99 mg/dLThe University Of Toledo Medical CenterPotassium [Moles/Vol]4.7 mmol/L3.7 - 5.1 mmol/L [facility] ClinicProtein [Mass/Vol]7.9 g/dL6.3 - 8.0 g/dLTipton ClinicSodium [Moles/Vol]137 mmol/L136 - 144 mmol/LCleveland Ely-Bloomenson Community HospitalUrea nitrogen [Mass/Vol]11 mg/dL9 - 24 mg/dLFostoria City HospitalR Westergren method (Bld) [Velocity]on 36-17-1808FZG (Bld) [Velocity]2 mm/h0 - 15 mm/hrFostoria City HospitalR (Bld) [Velocity]2 mm/hNormal0-15Avon HospitalComment on above:Order Comment: Specimen Type: BLOOD SPECIMEN Ordering Facility: [facility] Address: [address] [place], [place] [address]Performed By: #### 4537-7 #### [facility] CLIA [id number] [address] [facility] [place] [address] [place] OF AMERICAHAV IgM Ser Qlon 09-12-2023 HAV IgM Ql (S)NegativeNormalNegativeAvon HospitalComment on above:Order Comment: Specimen Type: BLOOD SPECIMEN Ordering Facility: [facility] Address: [address] [place], [place] [address]Result Comment: No evidence of recent infection with Hepatitis A virus.Performed By: #### 1988-5, 50040-9 #### [facility] CLIA [id number] [address] [facility] [place] [address] [place] AMERICAHBV core IgM Ser Qlon 06-05-3550OVH core IgM Ql (S)NegativeNormalNegativeAvon HospitalComment on above:Order Comment: Specimen Type: BLOOD SPECIMEN Ordering Facility: [facility] Address: [address] [place] [address] Comment: No evidence of recent infection with Hepatitis B virus. Should recent infection be suspected, repeat testing may be considered 3-4 weeks after this draw.Performed By: #### 56433-4, 77373-9, 5195-3, 32236-2 #### [facility] CLIA [id number] [address] [place] [address] [place] AMERICAHBV surface Ab Ql (S)on 88-23-6477ZXQ surface Ab Qn (S)<8.00NormalAvon HospitalComment on above:Order Comment: Specimen Type: BLOOD SPECIMEN Ordering Facility: [facility] Address: [address] [place], [place] [address]Result Comment: <8 mIU/mL: No serological evidence of immunity to Hepatitis B Virus. >/= 8 to <12 mIU/mL: No serological evidence of immunity to Hepatitis B Virus. >/= 12 mIU/mL: Consistent with serological evidence of immunity to Hepatitis B Virus.Performed By: #### 90555-4, 68892-3, 5195-3, 56023-6 #### [facility] CLIA [id number] [address] [place] [address] [place] AMERICAHBV surface Ab Ser Qlon 34-83-9699YEI surface Ab Ql (S)NegativeNormalAvon HospitalComment on above:Order Comment: Specimen Type: BLOOD SPECIMEN Ordering Facility: [facility] Address: [address] [place], [place] [address]Result Comment: No serological evidence of immunity to Hepatitis B Virus.Performed By: #### 64841-4, 43537-5, 5195-3, 53646-7 #### [facility] CLIA [id number] [address] [place] [address] [place] AMERICAHBV surface Ag Ser Qlon 21-49-1469TXH surface Ag Ql (S)Initially ReactiveAbnormalNegativeMilwaukee Hospital Comment on above:Order Comment: Specimen Type: BLOOD SPECIMEN Ordering Facility: [facility] Address: [address] [place], [place] [address]Result Comment: Please see HBsAg confirmatory assay result. Confirmatory testing for hepatitis B surface antigen has been ordered and charged.Performed By: #### 1988-03, #### [facility] CLIA [id number] [address] [place] [address] [place] AMERICAHBV surface Ag Ql (S)PositiveAbnormal Negative, Test not IndicatedAv HospitalComment on above:Order Comment: Specimen Type: BLOOD SPECIMEN Ordering Facility: [facility] Address: [address] [place], [place] [address]Result Comment: The result is consistent with active Hepatitis B Virus Infection. HBsAg, however, may test positive up to few weeks after administration of Hepatitis Be vaccine. Clinical correlation is required.Performed By: #### 1988-03, #### [facility] CLIA [id number] [address] [place] [address] [place] AMERICAHCV Ab Ser Qlon 55-14-8146NMW Ab Ql (S) PositiveAbnormalNegativeIntermountain HealthcareComment on above:Order Comment: Specimen Type: BLOOD SPECIMEN Ordering Facility: [facility] Address: [address] [place], [place] [address]Performed By: #### 36138-5, 53653-4 #### [facility] CLIA [id number] [address] [place] [address] [place] AMERICAHCV RNA SerPl GERMÁN+probe-aCnc on 20-56-4557JMO RNA GERMÁN+probe QnNot detectedNormalHCV RNA not detected by PCR. Intermountain HealthcareComment on above:Order Comment: Specimen Type: BLOOD SPECIMEN Ordering Facility: [facility] Address: [address] [place], [place] [address]Performed By: #### 30100-8 #### [facility] CLIA [id number] [address] [place] [address] [place] AMERICAPerformed By: #### 62202-3, 90353-1 #### [facility] CLIA [id number] [address] [place] [address] [place] AMERICAHIV 1+2 Ab IA Qlon 72-68-0339BDI 1 and 2 Ab IA.rapid [facility] HospitalComment on above:Order Comment: Specimen Type: BLOOD SPECIMEN Ordering Facility: [facility] Address: [address] [place], [place] [address]Result Comment: Test not indicated. Performed By: #### 1987-, 65595-1 #### [facility] CLIA [id number] [address] [place] [address] [place] AMERICAHIV 1+2 Ab+HIV1 p24 Ag IA QlNon-Reactive NormalNonreMoab Regional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 Interpretation CodeC LABNeutrophils4.28 K/mcLInvalid Interpretation Code1.70 - 7.00GMC LABNeutrophils/100 .8 %Invalid Interpretation CodeGMC LABNucleated erythrocytes/100 erythrocytes0.0 %Invalid Interpretation CodeC LABPlatelet mean volume (PMV)10.9 fLInvalid Interpretation Code9 - 15.5 fLGMC CYBZmkcydojx358 K/mcLInvalid Interpretation Nqbv526 - 400GM LABRDW-CA15.1 %High11.6 - 14.8 %[facility] LABWBC (Leukocytes)7.41 K/mcLInvalid Interpretation Code4.50 - 11.00GMC LABCBC w/ Diffon 11-21-2017 CreatinineThe following orders were created for panel order CBC w/ Diff. Procedure Abnormality Status --------- ------ CBC Auto Differential[[id number]] Abnormal Final result Please view results forthese tests on the individual orders.Invalid Interpretation CodeOhioHealth Work Phone: cMPon 95-11-5634Cznzkur aminotransferase (ALT)19 U/L Invalid Interpretation Code0 - [...] mg/dLInvalid Interpretation Code 8.4 - 10.2 mg/dLGMC UBYXzakzmlk97 mmol/LInvalid Interpretation Code98 - 108 mmol/LGMC LABCreatinine0.89 mg/dLInvalid Interpretation Code0.5 - 1.3 mg/dLGMC LABeGFR (non-black)118 mL/min/{1.73_m2}Invalid Interpretation Code>=60GM LAB eGFR (non-black)The eGFR should be used for monitoring renal function only and not for medication dosing.Invalid Interpretation CodeGMC ZYPNrkyqlk72 mg/dL Invalid Interpretation Code65 - 99 mg/dLGMC LABPotassium3.5 mmol/LInvalid Interpretation Code3.5 - 5.1 mmol/LGMC LABProtein7.5 g/dLInvalid Interpretation Code6 - 8 g/dLGMC TKKBpgakj550 mmol/LInvalid Interpretation Rglt944 - 145 mmol/L GMC LABUrea auyvagra36 mg/dLInvalid Interpretation Code8 - 25 mg/dLGMC LABGrey Topon 07-99-8349Gsvbn TubeHold for add-ons.Invalid Interpretation CodeGMC LAB [place] Drawon 69-46-0935MkjsuuscidGhy following orders were created for panel order [place] Draw. Procedure Abnormality Status --------- ------ Lavender Top[[id number]] Final result Mint Green Top[[id number]] Final result Gold Top[[id number]] Final result Light Blue Top[[id number]] Final result Rowe Top[[id number]] Final result Please view results for these tests on the individual orders.Invalid Interpretation CodeOhioHealth Shelby Hospital Work Phone: XR Foot Right 3+ Views (Standard)on 54-34-0396UP Foot Right 3+ Views (Standard)Interface, Rad In [employer] - 11/21/2017 7:58 AM EST EXAMINATION: 3 [...] IMPRESSION: No acute osseous abnormality. Workstation ID: [id number] Interpretation CodeANTHONY ST. LUKE'S MAGIC VALLEY MEDICAL CENTERXR Foot Right 3+ Views [...] lesion. No focal soft tissue abnormality.Invalid Interpretation ConceptoMedXR Foot Right 3+ Views (Standard)No acute osseous abnormality. Workstation ID: [id number] Interpretation Counselytics [place] No Panel InformationThe [facility] Vital Signs Date TimeVital SignValuePerforming GuctuktngTngezzze98-85-2402 09:50-0400Body zyewcw132 cmDamarcelina Ballard MD Work Phone: cMansfield HospitalXrbcjh35-83-1201 09:50-0400Body mass index (BMI) [Ratio]34.02 kg/f3Nreglmarcelina Ballard MD Work Phone: IMansfield HospitalVklaqs16-65-9650 09:50-0400Body temperature 96.91 [degF]Adolfo Ballard MD Work Phone: cMansfield HospitalUrzikq43-33-5811 09:50-0400Body nydwfi021.2 kgAdolfo Ballard MD Work Phone: [place] [address]-19-2024 09:50-0400Diastolic blood woxrkvim23 mm[Hg]Adolfo Ballard MD Work Phone: [place] [address]-19-2024 09:50-0400Heart rate96 /min Adolfo Ballard MD Work Phone: [place] [address]-19-2024 09:50-0400Respiratory rate 12 /minDavicole Ballard MD Work Phone: [place] [address]-19-2024 09:50-0400Systolic blood mm[Hg]Adolfo Ballard MD Work Phone: [place] [address]-19-2024 07:53-0400Diastolic blood mm[Hg]Charleen Laham MD Work Phone: [facility]08-19-2024 07:53-0400Heart rate89 /min Charleen Silver MD Work Phone: [facility]08-19-2024 07:53-0400Respiratory rate 18 /minCharleen Silver MD Work Phone: [facility]08-19-2024 07:53-0400Systolic blood ishymojy654 mm[Hg]Charleen Silver MD Work Phone: [facility]07-30-2024 11:43-0400Body .2 cmPacc 3 Work Phone: [facility]07-30-2024 11:43-0400Body mass index (BMI) [Ratio]36.14 kg/m2Pacc 3 Work Phone: [phone]07-30-2024 11:43-0400Body temperature 98.01 [degF]Pacc 3 Work Phone: [phone]07-30-2024 11:43-0400Body fhznai679.4 kgPacc 3 Work Phone: [phone]07-30-2024 11:43-0400Diastolic blood mm[Hg]Pacc 3 Work Phone: [phone] Medical CenterComment on above:MAP: 3914-48-3003 11:43-0400Heart rate96 /minPacc 3 Work Phone: [phone]07-30-2024 11:43-0400Respiratory rate 17 /minPacc 3 Work Phone: [phone]07-30-2024 11:43-7669UuP4% (BldA) [Mass fraction]97 %Pacc 3 Work Phone: [phone]07-30-2024 11:43-0400Systolic blood vochgiki982 mm[Hg]Pacc 3 Work Phone: [phone] ClinicComment on above:MAP: 8859-94-8515 08:44-0400Body vbsepm688 cmRhimanshu Becker MD Work Phone: Bmer[facility]ita[facility] medical centerand Cbevde40-05-9566 08:44-0400Body mass index (BMI) [Ratio]36.59 kg/t8ItizynllJayleen Becker MD Work Phone: Zmer[facility]ita[facility] medical centerand Mxrqxv47-07-7744 08:44-0400Body temperature 98.4 [degF]Jayleen Becker MD Work Phone: Imer[facility] centerand Cyturm76-57-4840 08:44-0400Body ffqfac059.28 kgJayleen Becker MD Work Phone: Zmer[facility] centerand Fliyyz67-90-7810 08:44-0400Diastolic blood waxyjdbl85 mm[Hg]Jayleen Becker MD Work Phone: I[facility] centerand Mdtijn38-42-1673 08:44-0400Heart rate89 /min Jayleen Becker MD Work Phone: Dmer[facility]ita[facility] centerand Cklclc17-20-1463 08:44-0400Systolic blood yblozixn471 mm[Hg]Jayleen Becker MD Work Phone: I[facility] centerand Bamjcx62-00-6069 14:24-0400Diastolic blood cbcsydxc857 mm[Hg]Ct [facility]06-21-2024 14:24-0400Heart rate70 /minCt [facility]06-21-2024 14:24-0400Respiratory rate16 /minCt [facility]06-21-2024 14:24-9767ZrJ3% (BldA) [Mass fraction]100 %Ct [facility]06-21-2024 14:24-0400Systolic blood mm[Hg]Ct [facility]06-14-2024 11:20-0400Body egvihp670.4 cmReyna Anton APRN.INSTALLATIONS INSPECTOR Work Phone: [facility]06-14-2024 11:20-0400Body mass index (BMI) [Ratio]36.85 kg/w1ZjsonkgqReyna Anton APRN.INSTALLATIONS INSPECTOR Work Phone: [facility]06-14-2024 11:20-0400Body temperature 97.81 [degF]Reyna Erich RAILROAD CAR LETTERER.INSTALLATIONS INSPECTOR Work Phone: [phone]06-14-2024 11:20-0400Body .7 kgReyna Anton RAILROAD CAR LETTERER.INSTALLATIONS INSPECTOR Work Phone: [facility]06-14-2024 11:20-0400Diastolic blood tsyjjnqs25 mm[Hg]Reyna Erich RAILROAD CAR LETTERER.INSTALLATIONS INSPECTOR Work Phone: [facility]06-14-2024 11:20-0400Heart rate74 /min Reyna Erich RAILROAD CAR LETTERER.INSTALLATIONS INSPECTOR Work Phone: [facility]06-14-2024 11:20-8358DsU3% (BldA) [Mass fraction]97 %Reyna Erich RAILROAD CAR LETTERER.INSTALLATIONS INSPECTOR Work Phone: [phone]06-14-2024 11:20-0400Systolic blood fiorqzbe126 mm[Hg]Reyna Anton RAILROAD CAR LETTERER.INSTALLATIONS INSPECTOR Work Phone: [facility]10-18-2023 09:35-0400Body .2 cmBrjason Erich RAILROAD CAR LETTERER.INSTALLATIONS INSPECTOR Work Phone: [phone]10-18-2023 09:35-0400Body temperature 97.7 [degF]Reyna Erich RAILROAD CAR LETTERER.INSTALLATIONS INSPECTOR Work Phone: [phone]10-18-2023 09:35-0400Body fiklar276.04 kgBrjason Anton RAILROAD CAR LETTERER.INSTALLATIONS INSPECTOR Work Phone: [facility]10-18-2023 09:35-0400Diastolic blood uibnlqcf27 mm[Hg]Reyna Anton RAILROAD CAR LETTERER.INSTALLATIONS INSPECTOR Work Phone: [facility]10-18-2023 09:35-0400Heart rate79 /min Reyna Anton RAILROAD CAR LETTERER.INSTALLATIONS INSPECTOR Work Phone: [facility]10-18-2023 09:35-1789UkF5% (BldA) [Mass fraction]96 %Reyna Erich RAILROAD CAR LETTERER.INSTALLATIONS INSPECTOR Work Phone: [facility]10-18-2023 09:35-0400Systolic blood ghxtnrme072 mm[Hg]Reyna Anton RAILROAD CAR LETTERER.INSTALLATIONS INSPECTOR Work Phone: [facility]10-13-2023 10:02-0400Body kivpub376.13 kgHunter Matzke DO Work Phone: [facility]10-13-2023 10:02-0400Diastolic blood tftpmfuj34 mm[Hg]Piter Matzke DO Work Phone: [facility]10-13-2023 10:02-0400Heart rate87 /min Piter Matzke DO Work Phone: [facility]10-13-2023 10:02-0400Systolic blood yxppsxso822 mm[Hg]Piter Matzke DO Work Phone: [facility]12-12-2022 11:58-0500Body .96 cmMD Chetan Rojas ([facility]) Work Phone: [facility]12-12-2022 11:58-0500 Body ywsjvprtinn52.4 [degF]MD Chetan Rojas ([facility]) Work Phone: [phone]12-12-2022 11:58-0500 Body .05 kgMD Chetan Rojas ([facility]) Work Phone: [facility]12-12-2022 11:58-0500 Diastolic blood ptidbxvj52 mm[Hg]MD Chetan Rojas ([facility]) Work Phone: [phone]12-12-2022 11:58-0500 Heart atji975 /minMD Chetan Rojas ([facility]) Work Phone: [phone]12-12-2022 11:58-0500 Respiratory rate14 /minMD Chetan Rojas ([facility]) Work Phone: [phone]12-12-2022 11:58-0500 SaO2% (BldA) [Mass fraction]96 %MD Chetan Rojas ([facility]) Work Phone: [facility]12-12-2022 11:58-0500 Systolic blood yfnlmlbf960 mm[Hg]MD Chetan Rojas ([facility]) Work Phone: [facility]02-10-2022 12:00-0500 Body nojuns790.69 cmThomas Olexa Other [employer] Other 02-10-2022 12:00-0500Body mass index (BMI) [Ratio] 26.16 kg/z2Sxnhru Olexa Other [employer] Other 02-10-2022 12:00-0500Body wnbevi11.17 kgThomas Olexa Other [employer] Other 10-14-2021 12:15-0400Body .69 cmThomas Olexa Other [employer] Other 10-14-2021 12:15-0400Body mass index (BMI) [Ratio]25.9 kg/y7Mavjiv Olexa Other [employer] Other 10-14-2021 12:15-0400Body tkncao64.27 kgThomas Olexa Other [employer] Other 06-12-2018 14:41-0400BMI (Body Mass Index)24.78 kg/m2 Adolfo PuenteJriusemAivhZofpia57-33-9130 14:41-0400Body Xympmndfhwg76.3 [degF]Adolfo PqoaducEfqbMnpgol54-65-1057 14:41-0400BP Ykdtkcdwl90 mm[Hg]Adolfo Puente RkucWfuxyl34-21-4105 14:41-0400BP Migjsray188 mm[Hg]Adolfo [facility] 2018 14:41-4572Gmayln800 cmDamarcelina ZxzuttzSeotKdgkhc78-14-0298 14:41-0400 Pulse (Heart Rate)99 /minDavicole KajdfkpFrvdLgxtdt90-48-1092 14:41-0400Pulse Tprqjdlz46 %Adolfo AeexsgxPqylHlhdes14-57-6441 14:41-0400Respiratory Rate16 /min Adolfo OayyctwPvzmWtiprx01-44-9797 14:41-8320Mjjdeq40.54 kgDavicole Lancaster Rehabilitation HospitalQacyHlxlcz37-85-5375 08:23-0500BP Rjspryzgt59 mm[Hg][facility] Work Phone: 1(459) 435-318112-22-2017 08:23-0500BP Vsaqbdsh914 mm[Hg]Paulo Rodriguez [facility] Work Phone: 1(321) 931-992712-22-2017 08:23-0500Pulse (Heart Rate)99 /minPaulo [facility] Work Phone: 1(757) 464-921612-22-2017 08:23-0500Pulse Cjctoywq99 %Paulo Ayoubriel [facility] Work Phone: 1(842) 180-443212-22-2017 08:23-0500Respiratory Rate16 /minPaulo [facility] Work Phone: 1(179) 574-736912-22-2017 06:18-0500BMI (Body Mass Index)21.83 kg/m2 Paulo [facility] Work Phone: 1(303) 350-397912-22-2017 06:18-0500Body Capbypzliwv23.5 [degF][facility] Work Phone: 1(875) 281-964412-22-2017 06:18-[address]Vlhxhx[address] [facility] Work Phone: 1(535) [phone] 06:18-6573Hfvbgp83.11 kgParex Rodriguez [facility] Work Phone: Encounters Encounter DateEncounter TypeCare ProviderFacilityStart: 08-12-2024 End: 90-03-4562Rqjoxzisn encounterDavid Krpata MD Work Phone: General SurgeryStart: 07-21-2024 End: 09-52-6274nrllmlqtpgCmtd Laham MD Work Phone: Pain ManagementComment on above:Hello as you say we don't speak in the same language.Start: 07-19-2024 End: 33-02-2055bycoauxalxXWWKF KRPATAFacility:[facility] Southtart: 07-19-2024 End: 46-92-8630Qpvkvur encounter Simon Silver MD Work Phone: pain ManagementComment on above:Benzodiazepine dependence (HCC) (Primary Dx); Anxiety; Opioid dependence with withdrawal (HCC); Generalized abdominal painIncisional hernia, without obstruction or gangrene (Primary Dx); Post-operative painStart: 07-19-2024 End: 11-79-4687bbbzfzcamcTXMK LAHAMFacility:[facility] Hospitaltart: 07-15-2024 RefillAdolfo Ballard MD Work Phone: [facility] SurgeryStart: 06-10-0298Wqkozlahq encounter Adolfo Ballard MD Work Phone: [facility] SurgeryStart: 69-74-0280sbracfvvcyJgrtwsr Larubina RNNURSE ON CALLComment on above:Blood In UrineEncounter for medical assessment (Primary Dx)Start: 23-07-9257Vkofgro encounter statusAntoni Kong MD Work Phone: [facility] Work Phone: Start: 47-59-5041Dzddhagjmvhd consultation with patientAntoni Kong MD Work Phone: Virtual MedicineStart: 06-30-2024 End: 00-20-7579Scirvgtrqp and management of inpatientADOLFO BALLARD Facility:[facility]art: 06-29-2024 End: 75-03-2573Lxrhmlluv to [place] [address] Work Phone: Pre AnesthesiaStart: 06-29-2024 End: 46-24-5808hcjwyuscmvMGEEAPQF MARKOFacility:[facility] Southtart: 06-29-2024 End: 67-83-0873Gkeacszmen consultationDayton General Hospital 3 Work Phone: pre AnesthesiaComment on above:Pre-op evaluation (Primary Dx); Preoperative examination; Ventral hernia without obstruction or gangrene; Gastroesophageal reflux disease without esophagitis; Opioid dependence in remission (HCC); Obesity, Class II, BMI 35-39.9; S/P colectomy; Chronic hepatitis C without hepatic coma (HCC); Nicotine abuse; ETOH abuseStart: 60-61-4016Tedabgudx for other preprocedural examinationMAX PAVMemorial Health SystemStart: 06-29-2024 End: 46-79-9696Rrjyuqcsuwlii examination doneAstria Regional [facility] Center Work Phone: [facility] Work Phone: Start: 06-08-2024 End: 11-82-6918vrcvrkbsdrOaws A Lashner MD Work Phone: GastroenterologyComment on above:Crohn's disease of small and large intestines with complication (HCC) (Primary Dx)Start: 06-08-2024 End: 56-89-0922Spprrxnkovrh consultation with Kori Lopez MD Work Phone: GastroenterologyStart: 96-09-0719xotsizhmnjXvjim Krpata MD Work Phone: digestive Disease InstComment on above:06.30.24 Cure (Open VHR 3 hours los 2)Start: 50-80-5700Magwzxprfegbt examination doneAdolfo Ballard MD Work Phone: [facility] ClinicStart: 05-28-2024 End: 12-42-5115Vitvmau encounter procedureAdolfo Ballard MD Work Phone: General SurgeryComment on above:Incisional hernia, without obstruction or gangrene (Primary Dx); Obesity, Class II, BMI 35-39.9Start: 05-28-2024 End: 12-88-1100hzwpfrfhkiMUY ARIANA PAVLOCKFacility:[facility] HospitalStart: 05-28-2024 End: 40-64-0844ckucsrvtqyYPCXOWZN WILSONFacility:[facility] Southtart: 05-28-2024 End: 59-32-1186Ulfuart encounter procedureJayleen Becker MD Work Phone: General SurgeryComment on above:HerniaStart: 05-21-2024 End: 05-81-6238njdlsfopcdQWR ARIANA PAVLOCKFacility:[facility] Start: 05-21-2024 End: 45-68-8277Zlqrpaqyzn hospital visit by physicianCt [facility] Ct ScanComment on above:Crohn's disease of small and large intestines with complication (HCC) [K50.819]Post-operative pain (Primary Dx)Start: 05-21-2024 End: 16-67-1084ukqruyhcdcACN ARIANA PAVLOCKFacility:[facility] Start: 05-14-2024 End: 89-56-4797Kjjwjzk encounter procedureRusty Lopez MD Work Phone: GastroenterologyComment on above:Crohn's disease of small and large intestines with complication (HCC) (Primary Dx)Fatty liver (Primary Dx); Elevated liver enzymes; HerniaStart: 05-14-2024 End: 61-53-6611uzxcbtjmhxWLP [facility]Pres[facility] Start: 47-47-2176Rnjpbmryo encounterRusty Lopez MD Work Phone: GastroenterologyComment on above:Orders; J2Ee Architect - OtherStart: 01-22-2024 End: 48-35-2718Ouywbufqc department patient visitChetan Rojas ([facility]) [facility]tart: 01-22-2024 End: 93-22-1961Gpeotxqhd department patient visitMD Chetan Rojas ([facility]) Work Phone: [facility] Work Phone: Start: 09-29-2023 End: 32-55-2956iikozbltywVjny A Lashner MD Work Phone: GastroenterologyComment on above:Crohn's disease of small and large intestines with complication (HCC) (Primary Dx)Start: 09-29-2023 End: 01-40-2683Boupzszbzomj consultation with patientRusty Lopez MD Work Phone: [facility] MAINStart: 09-17-2023 End: 10-94-8073zczvgomjjiMYH ARIANA PAVLOCKGastroenterologyStart: 09-17-2023 End: 36-44-5149Mwgvtfm encounter procedureHepatology Procedures A5 Work Phone: ccf [facility] MAINComment on above:Elevated liver enzymes (Primary Dx); Chronic hepatitis C without hepatic coma (HCC); Crohn's disease of small intestine with other complication (HCC)Start: 14-07-0023Lbzbrvzgy encounterHunter Gideon DO Work Phone: Internal MedicineStart: 09-12-2023 End: 06-17-7719lcoitnlszoEFVKFG GIDEONFacility:[facility] HospitalStart: 09-12-2023 End: 89-08-4662Oqvxbm outpatient new 20 minutesHunter Gideon DO Work Phone: Internal MedicineComment on above:Crohn's disease of small intestine with other complication (HCC) (Primary Dx); Chronic hepatitis C without hepatic coma (HCC)Start: 11-11-2022 End: 52-63-1398Gjxbexprm department patient visitIL Chetan Rojas ([facility]) Work Phone: [facility] RoomStart: 11-01-2022 End: 31-68-2898mngkogojoaVD DOCTOR MISCFacility:I5Chfxp: 07-23-2022 End: 18-14-4842umbcebnzenIQ DOCTOR MISCFacility:M8Ctrmm: 05-15-2022 End: 16-93-3604gpkwszzhzbTH DOCTOR MISCFacility:B1Pmmiv: 95-20-0239Difsos Only Fernie Hollingsworth DO Work Phone: OrthopaedicsComment on above:Hand injury, right, initial encounter (Primary Dx)Start: 02-07-2022 End: 03-96-0611ritmnbgienXioxbw Olexa Other [employer] Other Start: 94-78-6474Bqufzw follow up visit related to original pxThomas OlexaFPG [facility]icsStart: 01-10-2022 End: 00-40-3262hohenskrsgMnhzra Olexa Other [employer] Other Start: 93-80-0394Qynaoi follow up visit related to original pxThomas OlexaFPG [facility]opedicsStart: 12-31-2021 End: 69-12-1000xshalrqereTjykqb Olexa Other [employer] Other Start: 62-79-5728Zpgjphoyr encounterThomas OlexaFPG [facility]opedicsStart: 12-18-2021 End: 67-53-2738wzbqagowwrPxudna Olexa Other [employer] Other Start: 73-28-2972Gtfxykgrz encounterThomas OlexaFPG [facility] OrthopedicsStart: 12-12-2021 End: 58-35-8314shlunxblgcDX DOCTOR MISCFacility:R1Sgepd: 85-03-6198Rybxxi outpatient new 45 minutesThomas OlexaFPG [facility] OrthopedicsStart: 05-17-2018 End: 50-35-4892Eymfempqg department patient visitEMERGENCY PHYSICIAN [facility]Start: 2018 End: 60-01-9201Vsarzsd encounter procedurePHYSICIAN [facility] Start: 2018 End: 13-77-9415Pjqpyr/outpatient visit, new, level 3David Thuan Puente Work Phone: [facility] EnidStart: 11-21-2017 End: 78-35-0691Ofcuciywi department patient visitPAUL FRANCISCO RODRIGUEZFranklin County Medical Centertart: 11-21-2017 End: 43-15-6955Phfrpkxbd department patient visitPaul Francisco Rodriguez Work Phone: [facility] Emergency Department Procedures DateProcedureProcedure DetailPerforming ClinicianStart: 49-28-1868Yqvnwdxe screenMAX PAVLOCKComment on above:Order Comment: Specimen Type: BLOOD SPECIMENOrdering Facility: [facility] Address:[address] [place], [place] [address]Performed By: #### [id number] ####CC MAIN BLOOD BANKCLIA [id number] [facility] [id number] [place] [address] [facility] AMERICAStart: 60-55-3227Jtt routine ecg w/least 12 lds i&r onlyCcf Provider Start: 29-29-5725Jq abdomen & pelvis w/contrast Ronak Lopez MD Work Phone: Start: 20-02-5471Veonv elastography w/o imag w/i&r Reyna Anton RAILROAD CAR LETTERER.INSTALLATIONS INSPECTOR Work Phone: Start: 05-74-7112Wqjlh elastography w/o imag w/i&r Reyna Anton RAILROAD CAR LETTERER.INSTALLATIONS INSPECTOR Work Phone: Start: 03-21-2010H/O: ileostomyS/P ileostomyAndrew Matko DO Work Phone: [phone]-RtV-2, Influenza & RSV (PCR)MD Chetan Rojas ([facility]) Work Phone: Plan of Treatment DateCare ActivityDetailAuthorStart: 61-88-2234Ntljwnuvc B Vaccine (1 of 3 - Risk 3-dose series)Hepatitis B Vaccine (1 of 3 - Risk 3-dose series)[facility] Start: 11-15-2024 End: 80-60-0279Smxxdgd encounter qkpubylhw12/16/2024 9:00 AM EST Office Visit Gastroenterology [address] [address] Reyna Anton APRN.INSTALLATIONS INSPECTOR [address] [place] [address] Chronic Hep CGastroenterologyComment on above:Chronic Hep CStart: 11-15-2024 End: 52-22-7074ccjrbkxueo05/16/2024 8:40 AM EST Procedure Gastroenterology [address] [address] Elevated liver enzymes [R74.8]GastroenterologyComment on above:Elevated liver enzymes [R74.8]Start: 08-17-2024 End: 67-30-4385Xjqvlz-up rirrnfthf82/17/2024 4:30 PM EDT [facility] Gastroenterology [address] [address] Rusty Lopez MD [address] [place] [address] Follow upGastroenterologyComment on above:Follow upStart: 79-79-0801Mfwxi-19 Vaccine ( season)Covid-19 Vaccine ( season)[facility] Hospitaltart: 92-27-7148Txxpannpr vaccinationThe [facility] Start: 07-19-2024 End: 92-91-4640Updxxin encounter icfyclhev91/19/2024 8:00 AM EDT Office Visit Pain Management [address] [place] [address] Charleen Silver MD [address] [place] [address] abd painPain ManagementComment on above:abd painStart: 06-30-2024 End: 33-21-9340Ienivcyqs to same day surgery ugdqil1906/30/2024 11:45 AM EDT - 06/30/2024 2:15 PM EDT Surgery Admitting [address] [place] [address] Adolfo Ballard MD [address] [place] [address] IMPLANT MESH/PROSTHESIS VENTRAL HERNIA REPAIR GREATER THAN 10cmAdmittingComment on above:IMPLANT MESH/PROSTHESIS VENTRAL HERNIA REPAIR GREATER THAN 10cmStart: 06-30-2024 End: 86-12-7088XMZLMWN MESH/PROSTHESIS VENTRAL HERNIA REPAIR GREATER THAN 10cm IMPLANT MESH/PROSTHESIS VENTRAL HERNIA REPAIR GREATER THAN 10cm Preoperative examination Ventral hernia without obstruction or gangrene 06/30/2024 11:45 AM EDTMC MAIN PAVILIONStart: 06-30-2024 End: 19-19-4150Elbfvfvuj to same day surgery yuxala8606/30/2024 10:12 AM EDT - 06/30/2024 12:42 PM EDT Surgery Admitting [address] [place] [address] Adolfo Ballard MD [address] [place] [address] IMPLANT MESH/PROSTHESIS VENTRAL HERNIA REPAIR GREATER THAN 10cmAdmittingComment on above:IMPLANT MESH/PROSTHESIS VENTRAL HERNIA REPAIR GREATER THAN 10cmStart: 06-30-2024 End: 77-81-9299Xghlvdwmtq rnbhllqykjcb83/31/2024 10:12 AM EDT Anesthesia Event Admitting [address] [place] [address] Bing Cali MD [address] [place] [address] AdmittingStart: 06-30-2024 End: 10-75-4455HQMBSDK MESH/PROSTHESIS VENTRAL HERNIA REPAIR GREATER THAN 10cm IMPLANT MESH/PROSTHESIS VENTRAL HERNIA REPAIR GREATER THAN 10cm Preoperative examination Ventral hernia without obstruction or gangrene 06/30/2024 10:12 AM [facility]OKLA[facility] MAIN PAVILIONStart: 31-93-1199Lskhjfshgb hospital visit by physician AdmittingComment on above:Preoperative examination [Z01.818]Start: 06-29-2024 End: 21-52-8095GOGH AND SCREEN,30 [facility]Av[facility] Work Phone: Comment on above:Expected: 06/29/2024, Expires: 09/28/2024Start: 06-29-2024 End: 73-34-7721Hugywyyshq qhwksqagjkef99/30/2024 12:30 PM EDT PAT Pre Anesthesia [address] [place] [address] PACC, EKG, Labs, Admit InterviewPre AnesthesiaComment on above:PACC, EKG, Labs, Admit InterviewStart: 06-08-2024 End: 82-16-3847qwhndktjev04/09/2024 10:00 AM EDT [facility] Gastroenterology [address] [phone] Rusty Lopez MD [address] [place] [address] review resultsGastroenterologyComment on above:review resultsStart: 06-07-2024 End: 17-09-7311cZXE in Platelet poor plasma by Coagulation assayACTIVATED PARTIAL THROMBOPLASTIN TIME Lab Routine Preoperative examination Ventral hernia without obstruction or gangrene Expected: 06/07/2024, Expires: 08/01/2024 [facility] CenterComment on above:Expected: 06/07/2024, Expires: 08/01/2024Start: 06-07-2024 End: 23-34-4245UTN W Auto Differential panel - BloodCOMPLETE BLOOD COUNT AND DIFFERENTIAL Lab Routine Preoperative examination Ventral hernia without ob struction or gangrene Expected: 06/07/2024, Expires: 08/01/2024[facility] Comment on above:Expected: 06/07/2024, Expires: 08/01/2024Start: 06-07-2024 End: 20-79-7688Dzpkmqxqcbujx metabolic 2000 panel - Serum or PlasmaCOMPREHENSIVE METABOLIC PANEL Lab Routine Preoperative examination Ventral hernia without obstruction or gangrene Expected: 06/07/2024, Expires: 08/01/2024[facility] ClinicComment on above:Expected: 06/07/2024, Expires: 08/01/2024Start: 06-07-2024 End: 44-89-3470KWOUIHO BLOOD TYPECONFIRM BLOOD TYPE Blood Bank Routine Preoperative examination Ventral hernia without obstruction or gangrene Expected: 06/07/2024, Expires: 08/01/2024[facility] ClinicComment on above: Expected: 06/07/2024, Expires: 08/01/2024Start: 06-07-2024 End: 48-17-9700GO panel - Platelet poor plasma by Coagulation assayPROTHROMBIN TIME Lab Routine Preoperative examination Ventral hernia without obstruction or gangrene Expected: 06/07/2024, Expires: 08/01/2024[facility] ClinicComment on above:Expected: 06/07/2024, Expires: 08/01/2024Start: 05-21-2024 End: 59-33-7846Xakghbz encounter procedureRadiology Ct ScanComment on above:CT ENTEROGRAPHY W IVCONStart: 05-14-2024 End: 01-47-0369Rnftv 1 antitrypsin [Mass/volume] in Serum or Plasma ULGAG-7-NUGSREHOAQG Lab Routine Elevated liver enzymes Fatty liver Expected: 05/14/2024, Expires: 08/13/2024[facility] ClinicComment on above:Expected: 05/14/2024, Expires: 08/13/2024Start: 05-14-2024 End: 08-13-2024 reactive protein [Mass/volume] in Serum or PlasmaC-REACTIVE PROTEIN Lab Routine Crohn's disease of small and large intestines with complication (HCC) Expected: 05/14/2024, Expires: 08/13/2024[facility] Comment on above:Expected: 05/14/2024, Expires: 08/13/2024Start: 05-14-2024 End: 32-34-7079NEA panel - Blood by Automated countCOMPLETE BLOOD COUNT Lab Routine Crohn's disease of small and large intestines with complication (HCC) Expected: 05/14/2024, Expires: 08/13/2024[facility] Work Phone: Comment on above:Expected: 05/14/2024, Expires: 08/13/2024Start: 05-14-2024 End: 09-31-2098Undfjgzaymmuc [Mass/volume] in Serum or PlasmaCERULOPLASMIN Lab Routine Elevated liver enzymes Fatty liver Expected: 05/14/2024, Expires: 08/13/2024[facility] ClinicComment on above:Expected: 05/14/2024, Expires: 08/13/2024Start: 05-14-2024 End: 85-03-2304Xgrvmud hepatitis differentiation between hepatitis B and C virus panel - Serum or PlasmaHEP REMOTE PANEL BL Lab Routine Crohn's disease of small and large intestines with complication (HCC) Expected: 05/14/2024, Expires: 08/13/2024[facility] ClinicComment on above:Expected: 05/14/2024, Expires: 08/13/2024Start: 05-14-2024 End: 05-87-3123Qhdelkvedkphz metabolic 2000 panel - Serum or PlasmaCOMPREHENSIVE METABOLIC PANEL Lab Routine Crohn's disease of small and large intestines with complication (HCC) Expected: 05/14/2024, Expires: 08/13/2024[facility] Comment on above:Expected: 05/14/2024, Expires: 08/13/2024Start: 05-14-2024 End: 53-19-7625ERGJEQPMTR BLDCREATININE BLD Lab Routine Crohn's disease of small and large intestines with complication (HCC) Expected: 05/14/2024, Expires: 08/13/2024[facility] ClinicComment on above:Expected: 05/14/2024, Expires: 08/13/2024Start: 05-14-2024 End: 20-76-1779CNI BE ANTIBODYHEP BE ANTIBODY Lab Routine Elevated liver enzymes Fatty liver Expected: 05/14/2024, Expires: 08/13/2024[facility] ClinicComment on above:Expected: 05/14/2024, Expires: 08/13/2024Start: 05-14-2024 End: 77-78-7838HJA BE ANTIGENHEP BE ANTIGEN Lab Routine Elevated liver enzymes Fatty liver Expected: 05/14/2024, Expires: 08/13/2024[facility] ClinicComment on above:Expected: 05/14/2024, Expires: 08/13/2024Start: 05-14-2024 End: 58-98-3095Tkezdvogf B virus DNA [Units/volume] in SerumHEPATITIS B VIRUS DNA QUANTIFICATION, PLASMA/SERUM Lab Routine Elevated liver enzymes Fatty liver Expected: 05/14/2024, Expires: 08/13/2024[facility] ClinicComment on above: Expected: 05/14/2024, Expires: 08/13/2024Start: 05-14-2024 End: 52-27-6080Jwwgx kidney microsomal Ab [Titer] in Serum by Immunofluorescence LKM AB Lab Routine Elevated liver enzymes Fatty liver Expected: 05/14/2024, Expires: 08/13/2024[facility] ClinicComment on above:Expected: 05/14/2024, Expires: 08/13/2024Start: 05-14-2024 End: 46-87-3285Xcwfybtxrggu Ab [Presence] in Serum by Immunofluorescence MITOCHONDRIAL M2 IGG SERUM Lab Routine Elevated liver enzymes Fatty liver Expected: 05/14/2024, Expires: 08/13/2024[facility] ClinicComment on above: Expected: 05/14/2024, Expires: 08/13/2024Start: 05-14-2024 End: 13-55-0081Lymgcjk Ab [Presence] in Serum by ImmunoassayANA BLOOD Lab Routine Elevated liver enzymes Fatty liver Expected: 05/14/2024, Expires: 08/13/2024[facility] Work Phone: Comment on above:Expected: 05/14/2024, Expires: 08/13/2024Start: 05-14-2024 End: 72-75-6250DG panel - Platelet poor plasma by Coagulation assayPROTHROMBIN TIME Lab Routine Elevated liver enzymes Fatty liver Expected: 05/14/2024, Expires: 08/13/2024[facility] ClinicComment on above:Expected: 05/14/2024, Expires: 08/13/2024Start: 05-14-2024 End: 74-30-7796Vjcmbc muscle Ab [Presence] in SerumSMOOTH MUSCLE AB SCR Lab Routine Elevated liver enzymes Fatty liver Expected: 05/14/2024, Expires: 0 08/13/2024[facility] ClinicComment on above:Expected: 05/14/2024, Expires: 08/13/2024Start: 94-04-9806Dlkziagrgp Health ScreeningBehavioral Health ScreeningJ.W. Ruby Memorial Hospitaltart: 10-18-2023 End: 14-68-4412Tfzqzbc function 2000 panel - Serum or PlasmaHEPATIC FUNCTION PNL Lab Routine Chronic hepatitis C without hepatic coma (HCC) Elevated liver enzym es Expected: 10/18/2023, Expires: 01/17/2024[facility] Work Phone: Comment on above:Expected: 10/18/2023, Expires: 01/17/2024Start: 09-17-2023 End: 22-37-1382Kqhch 1 antitrypsin [Mass/volume] in Serum or Plasma MLZLT-7-ZMXTYIAPT BL Lab Routine Chronic hepatitis C without hepatic coma (HCC) Elevated liver enzymes Expected: 09/17/2023, Expires: 12/17/2023[facility] Work Phone: Comment on above:Expected: 09/17/2023, Expires: 12/17/2023Start: 09-17-2023 End: 05-88-6652Xyqrehvlsopds [Mass/volume] in Serum or PlasmaCERULOPLASMIN BLD Lab Routine Chronic hepatitis C without hepatic coma (HCC) Elevated liver enzymesExpected: 09/17/2023, Expires: 12/17/2023[facility] Work Phone: Comment on above:Expected: 09/17/2023, Expires: 12/17/2023Start: 09-17-2023 End: 07-12-5564Evvbpzcy [Mass/volume] in Serum or PlasmaFERRITIN BLD Lab Routine Chronic hepatitis C without hepatic coma (HCC) Elevated liver enzymes Expected: 09/17/2023, Expires: 12/17/2023[facility] Work Phone: Comment on above:Expected: 09/17/2023, Expires: 12/17/2023Start: 09-17-2023 End: 05-67-2573Wobeb glutamyl transferase [Enzymatic activity/volume] in Serum or PlasmaGGT BLD Lab Routine Elevated liver enzymes Expected: 09/17/2023, Expires: 12/17/2023[facility] Work Phone: Comment on above:Expected: 09/17/2023, Expires: 12/17/2023Start: 09-17-2023 End: 37-41-2799Qlfupjcqsm A1c in BloodHGB A1C Lab Routine Chronic hepatitis C without hepatic coma (HCC) Elevated liver enzymes Expected:09/17/2023, Expires: 12/17/2023[facility] Work Phone: Comment on above:Expected: 09/17/2023, Expires: 12/17/2023Start: 09-17-2023 End: 47-78-7795TEJBSWLXH A ANTIBODY, IGGHEPATITIS A ANTIBODY, IGG Lab Routine Chronic hepatitis C without hepatic coma (HCC) Elevated liverenzymes Expected: 09/17/2023, Expires: 12/17/2023[facility] Work Phone: Comment on above:Expected: 09/17/2023, Expires: 12/17/2023Start: 09-17-2023 End: 80-92-4108Cmpyylugl B virus core Ab [Presence] in SerumHEP B CORE AB TOTAL Lab Routine Chronic hepatitis C without hepatic coma (HCC) Elevated liver enzyme s Expected: 09/17/2023, Expires: 12/17/2023[facility] Work Phone: Comment on above:Expected: 09/17/2023, Expires: 12/17/2023Start: 09-17-2023 End: 26-42-3394Krezfludm B virus surface Ab [Presence] in SerumHEP B SURF AB Lab Routine Chronic hepatitis C without hepatic coma (HCC) Elevated liver enzymes Expected: 09/17/2023, Expires: 12/17/2023[facility] Work Phone: Comment on above:Expected: 09/17/2023, Expires: 12/17/2023Start: 09-17-2023 End: 50-54-4010XRE gene targeted mutation analysis in Blood or Tissue by Molecular genetics methodHFE (HEMOCHROMATOSIS) Lab Routine Chronic hepatitis C without hepatic coma (HCC) Elevated liver enzymes Expected: 09/17/2023, Expires: 12/17/2023[facility] Work Phone: Comment on above:Expected: 09/17/2023, Expires: 12/17/2023Start: 09-17-2023 End: 16-77-0624AtL [Mass/volume] in Serum or PlasmaIGG Lab Routine Elevated liver enzymes Expected: 09/17/2023, Expires: 12/17/2023[facility] Work Phone: Comment on above:Expected: 09/17/2023, Expires: 12/17/2023Start: 09-17-2023 End: 22-19-6640GuG [Mass/volume] in Serum or PlasmaIGM Lab Routine Elevated liver enzymes Expected: 09/17/2023, Expires: 12/17/2023[facility] Work Phone: Comment on above:Expected: 09/17/2023, Expires: 12/17/2023Start: 09-17-2023 End: 90-49-9617Xqjk and Iron binding capacity panel - Serum or PlasmaIRON + TIBC Lab Routine Chronic hepatitis C without hepatic coma (HCC) Elevated liver enzymes Expected: 09/17/2023, Expires: 12/17/2023[facility] Work Phone: Comment on above:Expected: 09/17/2023, Expires: 12/17/2023Start: 09-17-2023 End: 16-65-7065Tfsve 1996 panel - Serum or PlasmaLIPID PANEL BASIC Lab Routine Chronic hepatitis C without hepatic coma (HCC) Elevated liver enzymesExpected: 09/17/2023, Expires: 12/17/2023[facility] Work Phone: Comment on above:Expected: 09/17/2023, Expires: 12/17/2023Start: 09-17-2023 End: 0788Gmkhhilijlvq Ab [Presence] in Serum by Immunofluorescence MITOCHONDRIAL M2 IGG SERUM Lab Routine Chronic hepatitis C without hepatic coma (HCC) Elevated liver enzymes Expected: 09/17/2023, Expires: 12/17/2023[facility] Work Phone: Comtcqs on above:Expected: 09/17/2023, Expires: 12/17/2023Start: 09-17-2023 End: 58-13-7195Ltuzhku Ab [Presence] in Serum by ImmunoassayANA BLOOD Lab Routine Chronic hepatitis C without hepatic coma (HCC) Elevated liver enzymes Expected: 09/17/2023, Expires: 12/17/2023[facility] Work Phone: Comment on above:Expected: 09/17/2023, Expires: 12/17/2023Start: 09-17-2023 End: 84-15-8524Akmxdt muscle Ab [Presence] in SerumSMOOTH MUSCLE AB SCR Lab Routine Chronic hepatitis C without hepatic coma (HCC) Elevated liver enzymes Expected: 09/17/2023, Expires: 12/17/2023[facility] Work Phone: Comment on above:Expected: 09/17/2023, Expires: 12/17/2023Start: 09-12-2023 End: 06-62-3008Yrvrl hepatitis 2000 panel - [facility] Work Phone: Combtsy on above:Expected: 09/12/2023, Expires: 11/12/2023Start: 09-12-2023 End: 34-19-7023Hsadxxlse B virus core IgM Ab [Presence] in [facility] Work Phone: Comment on above:Expected: 09/12/2023, Expires: 11/12/2023Start: 09-12-2023 End: 84-10-5153Mdlfllwsm B virus surface Ab [Presence] in [facility] Work Phone: Comkpko on above:Expected: 09/12/2023, Expires: 11/12/2023Start: 09-12-2023 End: 83-89-4252Yupswgipo B virus surface Ag [Presence] in [facility] Work Phone: Comment on above:Expected: 09/12/2023, Expires: 11/12/2023Start: 09-12-2023 End: 44-90-5574Xctbnuzks C virus RNA [Units/volume] (viral load) in Serum or Plasma by GERMÁN with probe detectionAvita Health System [facility] Work Phone: Comment on above:Expected: 09/12/2023, Expires: 11/12/2023Start: 09-12-2023 End: 64-52-5042QTO 1+2 Ab [Presence] in Serum or Plasma by ImmunoassayAvita Health System [facility] Work Phone: Comment on above:Expected: 09/12/2023, Expires: 11/12/2023Start: 95-48-7927Sitxl-19 Vaccine ( season)Covid-19 Vaccine ( season)[facility]: 01-94-5803Ypmyzuyka vaccination Influenza Vaccine (#1)[facility]: 75-14-0885Dxzfimroii Assessment Depression AssessmentJ.W. Ruby Memorial Hospitaltart: 77-80-9822Iibdjoaru vaccination INFLUENZA (Season Ended)[facility]: 93-77-0318Ndtextejs vaccination SEQUENTIAL INFLUENZA VACCINE (Season Ended)[facility]: 92-78-0639Smupawfjw vaccinationSEQUENTIAL INFLUENZA VACCINE (#1)[facility] Work Phone: Start: 74-35-1605Ylxhtxmwc A Vaccine (1 of 2 - Risk 2- dose series)Hepatitis A Vaccine (1 of 2 - Risk 2-dose series)[facility] Start: 73-60-6617YGSXZXYPE B (1 of 3 - Risk 3-dose series)HEPATITIS B (1 of 3 - Risk 3-dose series)[facility]: 57-33-3990Eigldagjg B Vaccine (1 of 3 - 19+ 3-dose series)Hepatitis B Vaccine (1 of 3 - 19+ 3-dose series)[facility]: 06-93-8470Ddorr microalbumin profileCleSelect Medical Specialty Hospital - Akrontart: 76-40-7252Zlnebmbcfw ScreeningDepression ScreeningCleSelect Medical Specialty Hospital - Akrontart: 63-26-4908CKO (1 of 2 - Risk 2-dose series)MMR (1 of 2 - Risk 2-dose series) [facility]: 53-19-9333XAX Vaccine (1 of 2 - Risk 2-dose series)MMR Vaccine (1 of 2 - Risk 2-dose series)[facility]: 04-64-6890Jgrbr depression screening assessmentDEPRESSION SCREENINGJ.W. Ruby [facility] Hospitaltart: 85-40-9578Qworcgfbzxqln B Vaccine: Consider Based On Risk (1 of 4 - Increased Risk)Meningococcal B Vaccine: Consider Based On Risk (1 of 4 - Increased Risk) [facility]: 92-57-8068HYUHBAQTRUQDC B: Consider based on risk (1 of 4 - Increased Risk Bexsero 2-dose series)MENINGOCOCCAL B: Consider based on risk (1 of 4 - Increased Risk Bexsero 2-dose series)[facility]: 1996 PNEUMOCOCCAL (1 - PCV)PNEUMOCOCCAL (1 - PCV)[facility]: 1997 Pneumococcal vaccinationJ.W. Ruby Memorial Hospitaltart: 00-12-0965IAKGS-19 VACCINE (#1) COVID-19 VACCINE (#1)[facility]: 15-63-4627HHRMOZNQD A (1 of 2 - Risk 2-dose series)HEPATITIS A (1 of 2 - Risk 2-dose series)[facility]: 58-52-3623Tvhsp-19 Vaccine (#1)Covid-19 Vaccine (#1)[facility]: 74-37-4144Uktruis vaccinationTETANUS EVERY 10 YROhioHealth [facility] Hospital Work Phone: End: 40-06-5061Do abdomen & pelvis w/contrast materialCT ENTEROGRAPHY W IVCON Radiology Routine Crohn's disease of small and large intestines with complic ation (HCC) 1 Occurrences starting 09/29/2023 until 4COhio [facility] Work Phone: Comment on above:1 Occurrences starting 09/29/2023 until 10/28/2024 End: 25-38-5366GW Small bowel W contrast PO and W contrast IVCT ENTEROGRAPHY W IVCON Radiology Routine Crohn's disease of small and large intestines with complication (HCC) 1 Occurrences starting 05/14/2024 until 5Ctrihealth [facility] ClinicComment on above:1 Occurrences starting 05/14/2024 until 06/13/2025 End: 80-03-9515AAX COMPLETEECG COMPLETE ECG Routine Preoperative examination Ventral hernia without obstruction or gangrene 1 Occurrences starting 05/31/2024 until 5Ctrihealth [facility] ClinicComment on above:1 Occurrences starting 05/31/2024 until 05/31/2025ECG COMPLETEECG COMPLETE ECG 06/29/2024 12:32 PM EDT [facility] HospitalIMPLANT MESH/PROSTHESIS VENTRAL HERNIA REPAIR GREATER THAN 10cmIMPLANT MESH/PROSTHESIS VENTRAL HERNIA REPAIR GREATER THAN 10cm Preoperative examination Ventral hernia without obstruction or gangreneCleveland ClinicLiver ultrasound attenuation by transient elastographyDDI VIBRATION CONTROLLED TRANSIENT ELASTOGRAPHY (VCTE) Endoscopy Routine Elevated liver enzymes Fatty liver Ordered: 05/14/2024[facility] HospitalComment on above:Ordered: 05/14/2024atient EducationProne Position [facility]/OP COVID-19 [facility]ructionsK[facility] Work Phone: Patient referralKettering [facility] Work Phone: REFER FOR ADMIT INTERVIEWREFER FOR ADMIT INTERVIEW Procedures Routine Preoperative examination Ventral hernia without obstruction or gangrene Ordered: 05/31/2024[facility] Work Phone: Comment on above:Ordered: 05/31/2024 End: 79-12-9439IT ABD RIGHT UPPER QUADRANTUS ABD RIGHT UPPER QUADRANT Radiology Routine Chronic hepatitis C without hepatic coma (HCC) 1 Occurrences starting 09/12/[address] [place] [address] Work Phone: Comment on above:1 Occurrences starting 09/12/2023 until 10/11/2024 End: 42-62-3435SG HAND GENERAL 3V PA/LAT/OBL RIGHTXR HAND GENERAL 3V PA/LAT/OBL RIGHT Radiology Routine Hand injury, right, initial encounter 1 Occurrences starting 04/30/[address] [place] [address] Work Phone: Comment on above:1 Occurrences starting 04/30/2022 until 05/30/2023[facility] Immunizations Immunization DateImmunizationNotesCare LkomdvivLmfrrwct50-91-4276DpqjrrlkYgrliw [employer] Other [employer] Other [id number] Olexa Other [employer]wing [employer] Other NEGATED: Highlighted row has not occurred!03-24-2021 tetanus toxoid, reduced diphtheria toxoid, and acellular pertussis vaccine, adsorbedMD Chetan [place] ([facility]) Work Phone: [facility] HospitalNEGATED: Highlighted row has not occurred!13-13-2093wkfjclz toxoid, reduced diphtheria toxoid, and acellular pertussis vaccine, adsorbedMD Chetan [place] ([facility]) Work Phone: [facility] Payers DatePayer CategoryPayerPolicy [id number]-yer [id number] 2023[place]icaid[place] MEDICAID [place] MED[place] [id number] 2023-Present [phone] [place] [address] [place] [address] [id number] 2021Medicaidid [place] MED[place] [id number] 2021-Present [phone] [place] [id number] [id number] [id number] [id number] [id number] [id number] [id number] [id number] [employer]RE[employer] PA[employer]OR [facility] FREETEXT PAYOR [id number] Effective for all dates [address] [place] [address] Other [id number]'s [id number] Social History DateTypeDetailFacilityStart: 2018 End: 27-59-3960Qampwas smoking status NHISCurrent every day smokerThe [facility] Medical CenterHistory of tobacco useCigarette SmokerOhioHealth Work Phone: Start: 2018 End: 19-87-5763Glrccxlcwg smoked current (pack per day) - ReportedThe [facility] Work Phone: Start: 79-86-6951Iex Assigned At BirthNot on file [facility] Work Phone: Start: 10-08-2021 End: 82-06-5707Wkoqikk intakeCurrent drinker of alcohol (finding)[facility] Hospitaltart: 12-19-2022 End: 79-21-5436Nzj Assigned At BirthThe [facility] Work Phone: Start: 63-22-4422Breabur smoking status NHISSmoker (finding)[facility] Hospitaltart: 61-97-8547Sty Assigned At MaleTriHealth Good Samaritan Hospitaltart: 70-87-3479Hqrotzb use and exposure Smokeless tobacco non-userThe [facility] Medical CenterNational Score (1-100), lower number is lower sajh17VncwnuudrJ.W. Ruby Memorial Hospitaltart: 61-55-8487Rbklnj identityIdentifies as male gender (finding)[facility] Hospitaltart: 99-60-8964Lmsqxxk Comment4-5 shots per daySelect Medical Specialty Hospital - [facility] the electric, gas, oil, or water company threatened to shut off services in your home in past 12MoNoClDelaware County Hospital Work Phone: (I/We) worried whether (my/our) food would run out before (I/we) got money to buy more.Never trueThe [facility] Medical Equipment Procedure CodeEquipment CodeEquipment Original TextEquipment IdentifierDatesMesh Prolene [place] [id number] Surgical Knit Nonabsorbable Nonreactive - [id number]: 06-30-2024 Clinical Notes 09-06-2012 to 08-13-2024 Note Date & HjuqMbksJheuzsde50-25-3799 Telephone encounter Note* Telephone Encounter - Adolfo Ballard MD - 08/13/2024 8:25 AM EDT I called Mr Momin because he continues to send [employer] messages with misinformation. I answered hisquestions. I [...] him. He thanked me for the call. [facility]09-13-2024 Miscellaneous Notes* Telephone Encounter - Adolfo Ballard MD - 08/13/2024 8:25 AM EDT I called Mr Momin because he continues to send [employer] messages with misinformation. I answered hisquestions. I [...] me for the call. documented in this encounterThe University Of [facility] Center08-19-2024 NoteSelect Medical [facility]08-19-2024 History of Present illness Narrative* Adolfo Ballard [...] can follow-up as needed. documented in this encounterThe University Of [facility] Center08-19-2024 NoteHNO ID: [id number] Author: CHARLEEN SILVER MD Service: ? Author Type: Physician Type: Progress Notes Filed: 07/19/2024 08:45 Note Text: [facility] Pain Management Department Consultation Date: [...] the past who has been treated at [facility] recently for abdominal hernia [...] transfusion 03/21/2010: Pneumonia 1 (more content not included)...[facility]08-19-2024 History of Present illness Narrative* Charleen Silver MD - 07/19/2024 7:56 AM EDT [facility] Pain Management Department Consultation Date: [...] the past who has been treated at [facility] recently for abdominal hernia [...] No date: Bowel disease No date: Cancer ([facility]) No date: Chronic obstructive pulmonary disease (COPD) ([facility]) No date: Congestive heart failure ([facility]) 2008: Crohn's No date: History of transfusion 03/21/2010: Pneumonia 11/06/2015: SBO (small bowel obstruction) ([facility]) Comment: - CT : bowl obstruction with transition point at the [facility] -NPO -IVF -pain control -Phenergen for [...] INTESTINE Comment: Performed by FRANCO GARCIA at [facility] 03/31/2008: PAST SURGICAL HISTORY OF Comment: [...] signature CC Chetan Rojas MD, MD through 5app documented in this encounterThe University Of [facility] Center08-12-2024 Telephone encounter Note * Telephone Encounter - [...] the phone with him. Adolfo Ballard MD [facility] Work Phone: 1(253) 210-283408-12-2024 Miscellaneous Notes* Telephone Encounter - Adolfo Ballard [...] him. Adolfo Ballard MD documented in this encounterThe University Of [facility] Center08-11-2024 NoteSelect Medical [facility] - [place]08-11-2024 History of Present illness Narrative* Antoni Kong MD - 07/11/2024 11:33 AM EDT Virtualist Progress Note Triage Call I have communicated my name and active licensure. The patient's identity and physical location wereverified at the time of this visit. Either the patient or their legal traffic workforce representative has been informed of the risks and benefits of -- and alternatives to -- treatment through a remote evaluation andconsents to proceed with the evaluation remotely. Triage source: Triage Call (Nurse Prescriptionist, Medical Care at Home - [facility] Triage, [facility] Triage, [facility] Phone Triage) Was patient downgraded (i.e. disposition [...] CC Home Care nurse triage, or an [facility] Care, the disposition is Go to ED Now ): Go to ED Now Virtualist Recommended Disposition: Go to ED Signed in as Primary Virtualist, Secondary Virtualist, or [facility] Telehealth provider: Secondary documented in this encounterThe University Of [facility] Center08-11-2024 Telephone encounter Note * Telephone Encounter - Katherine Matrel RN - 07/11/2024 11:20 AM EDT Reason [...] strands.) Protocols used: Urine - Blood In-ADULT-AH [facility]08-11-2024 Miscellaneous Notes* Telephone Encounter - Katherine Martel [...] Urine - Blood In-ADULT- documented in this encounterThe University Of [facility] Center08-08-2024 NoteSelect Medical [facility]08-08-2024 NoteSelect Medical [facility]08-08-2024 NoteSelect Medical [facility]08-08-2024 NoteSelect Medical [facility]08-07-2024 Note [facility]08-06-2024 NoteSelect Medical [facility] [place]08-06-2024 NoteSelect Medical [facility]08-06-2024 NoteSelect Medical [facility] 07-05-2024 NoteSelect Medical [facility]08-04-2024 NoteSelect Medical [facility]08-04-2024 NoteSelect Medical [facility]08-04-2024 NoteSelect Medical [facility]08-04-2024 NoteSelect Medical [facility]08-03-2024 Note [facility]08-03-2024 NoteSelect Medical [facility]08-02-2024 NoteSelect Medical [facility]08-01-2024 NoteSelect Medical [facility] 06-30-2024 NoteSelect Medical [facility]07-30-2024 History and physical note* Nataliia Baez, KATHIA.INSTALLATIONS INSPECTOR - 06/29/2024 12:30 PM EDT Images from [...] years old or younger STOP-Bang Score: 2 [id number] Score: Age: <65 Sex: male AAT1AK4-GXJd Score: ARISCAT Score: Age: <=50 Preoperative SpO2: [...] of Planned Surgery or Procedure: Answer: [facility] [place] Order Specific Question: Status of surgery/procedure: Answer: [...] transfusion Pneumonia 03/21/2010 SBO (small bowel obstruction) ([facility]) 11/06/2015 - CT : bowl obstruction with transition point at the [facility] -NPO -IVF -pain control -Phenergen for [...] INTESTINE 08/31/2010 Performed by FRANCO GARCIA at [facility] PAST SURGICAL HISTORY OF 03/31/2008 2 [...] fevers. Neuro: No history of TIA's, stroke, SLITTER SCORER tumor, impaired sensorium, hemiplegia, paraplegia or quadraplegia. No neurological symptoms or problems. Respiratory: Positive for Tobacco Use 0.5ppd , Negative for No history of current cough or dyspnea,or pneumonia in the past 6 weeks. No history of respiratory/pulmonary symptoms or problems Cardiovascular: No history of HTN requiring medication, no history of angina, CHF, NE, cardiac surgery or stents. Denies rest pain, [...] Angelita Momin DATE: 06/29/2024 TIME: 12:04 PM [facility]07-30-2024 History and physical note* Nataliia Baez APRN.CNP [...] years old or younger STOP-Bang Score: 2 [id number] Score: Age: <65 Sex: male MBE1EY1-YTUd Score: ARISCAT Score: Age: <=50 Preoperative SpO2: [...] of Planned Surgery or Procedure: Answer: [facility] [place] Order Specific Question: Status of surgery/procedure: Answer: [...] transfusion Pneumonia 03/21/2010 SBO (small bowel obstruction) ([facility]) 11/06/2015 - CT : bowl obstruction with transition point at the [facility] -NPO -IVF -pain control -Phenergen for [...] INTESTINE 08/31/2010 Performed by FRANCO GARCIA at [facility] PAST SURGICAL HISTORY OF 03/31/2008 2 [...] fevers. Neuro: No history of TIA's, stroke, SLITTER SCORER tumor, impaired sensorium, hemiplegia, paraplegia or quadraplegia. No neurological symptoms or problems. Respiratory: Positive for Tobacco Use 0.5ppd , Negative for No history of current cough or dyspnea,or pneumonia in the past 6 weeks. No history of respiratory/pulmonary symptoms or problems Cardiovascular: No history of HTN requiring medication, no history of angina, CHF, NE, cardiac surgery or stents. Denies rest pain, [...] 06/29/2024 TIME: 12:04 PM documented in this encounterThe University Of [facility] Center07-29-2024 Instructions* Patient Instructions* Nataliia Baez APRN.CNP - 06/28/2024 7:46 AM EDT PATIENT PREOPERATIVE INSTRUCTIONS Ramses, Renee, RAILROAD CAR LETTERER.C* has scheduled you for your procedure at this surgery center: [facility] [place] Scheduling Office: [phone] --[address] [place] [address]. Please read below carefully for your personalized [...] Procedures: - YOU MUST HAVE A RESPONSIBLE INBOUND CALL CENTER REPRESENTATIVE TAKE YOU HOME. A SERVICE TRANSFORMER REPAIR SUPERVISOR OR DRAFTER CIVIL CANNOT BE MADE A RESPONSIBLE INBOUND CALL CENTER REPRESENTATIVE. - We recommend that a responsible person [...] call the Friday before. Your surgeon s medical engineer will tell you what time to call the office. - If you have not reached the departmental medical engineer by 5 P.M., call [phone] after 5 P.M. the day before your surgery. Please be aware that emergency situations arise, which may delay or change your surgical time. If this happens, we will notify you as soon as possible and regret any inconvenience. If you already have an Advance Directive, please fax a copy to [phone] or email to for it to be [...] your chart that day. documented in this encounterThe University Of [facility] Medical Center07-16-2024 History and physical note * Jayleen Becker [...] daily bowel movements. 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 Neuro: No history of TIA's, stroke, SLITTER SCORER tumor, impaired sensorium, hemiplegia, paraplegia or quadriplegia. No neurological symptoms or problems. Respiratory: No history of current cough or dyspnea, or pneumonia in the past 6 weeks. No history of respiratory/pulmonary symptoms or problems. Cardiovascular: No history of HTN requiring medication, no history of angina, CHF, NE, cardiac surgery or stents. Denies rest pain, gangrene or revascularization/amputation for PVD. No history of cardiovascular symptoms or problems. GI: GERD, Nausea, Abdominal pain : No history of UTI in past 6 weeks. No history of renal failure. Not currently on or requiring dialysis. No history of symptoms or problems. SR. PRICING ANALYST: Not reviewed Endocrine: No history of diabetes. [...] 15, 2024 TIME: 5:30 AM PAGER/CONTACT #: [facility]07-16-2024 History and physical note* Jayleen Becker MD [...] daily bowel movements. 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 Neuro: No history of TIA's, stroke, SLITTER SCORER tumor, impaired sensorium, hemiplegia, paraplegia or quadriplegia. No neurological symptoms or problems. Respiratory: No history of current cough or dyspnea, or pneumonia in the past 6 weeks. No history of respiratory/pulmonary symptoms or problems. Cardiovascular: No history of HTN requiring medication, no history of angina, CHF, NE, cardiac surgery or stents. Denies rest pain, gangrene or revascularization/amputation for PVD. No history of cardiovascular symptoms or problems. GI: GERD, Nausea, Abdominal pain : No history of UTI in past 6 weeks. No history of renal failure. Not currently on or requiring dialysis. No history of symptoms or problems. SR. PRICING ANALYST: Not reviewed Endocrine: No history of diabetes. [...] 5:30 AM PAGER/CONTACT #: documented in this encounterThe University Of [facility] Center07-09-2024 NoteSelect Medical [facility]health [facility]07-09-2024 History of Present illness Narrative* Rusty Lopez MD - 06/08/2024 10:01 AM EDT Telephone encounter, 20 minutes, patient agreed I have communicated my name and active licensure. The patient's identity and physical location wereverified at the time of this visit. Either the patient or their legal traffic workforce representative has been informed of the risks [...] day. MyChart follow up.. documented in this encounterThe University Of [facility] Center06-28-2024 NoteHNO ID: [id number] Author: ADOLFO BALLARD MD Service: ? Author Type: Physician Type: Progress Notes Filed: 06/02/2024 09:39 Note Text: Consultation requested by Dr. Jayleen Becker for an opinion regarding hernia. My final recommendations will be communicated back to the requesting physician by way of shared medical record or letter via US mail [facility] - HISTORY [...] transfusion Pneumonia 03/21/2010 SBO (small bowel obstruction) ([facility]) 11/06/2015 - CT : bowl obstruction with [...] INTESTINE 08/31/2010 Performed by FRANCO GARCIA at [facility] PAST SURGICAL HISTORY OF 03/2008 2 [...] SYSTEMS GI: No nause (more content not included)...[facility]06-28-2024 History of Present illness Narrative* Adolfo Ballard MD - 05/28/2024 10:16 AM EDT Consultation requested by Dr. Jayleen Becker for an opinion regarding hernia. My final recommendations will be communicated back to the requesting physician by way of shared medical record or lettervia US mail [facility] - HISTORY [...] transfusion Pneumonia 03/21/2010 SBO (small bowel obstruction) ([facility]) 11/06/2015 - CT : bowl obstruction with transition point at the [facility] -NPO -IVF -pain control -Phenergen for [...] INTESTINE 08/31/2010 Performed by FRANCO GARCIA at [facility] PAST SURGICAL HISTORY OF 03/2008 2 [...] Level: 4 - Moderate documented in this encounterThe [facility]* Sera Cummings MA - 05/28/2024 [...] a Temperature: No Drains: No patient declined registered dental hygienist Sera Cummings MA May 28, 2024 10:03 AM [facility]06-28-2024 Nurse Note* Sera Cummings MA - 05/28/2024 [...] a Temperature: No Drains: No patient declined registered dental hygienist Srea Cummings MA May 28, 2024 10:03 AM documented in this encounterThe [facility]06-28-2024 Nurse Note* Freida Gonzalez LPN - 05/28/2024 8:41 AM EDT What is the reason for your visit today? incisional hernia Who is your referring physician? LIZET Anton Are you having poor oral intake? NO Have you had unintentional weight loss of 15 lbs/7 Kg in the last 3-6 months? NO Bowels: regular \ patient declined registered dental hygienist Freida Gonzalez LPN [facility]06-28-2024 Nurse Note* Freida Gonzalez LPN - 05/28/2024 8:41 AM EDT What is the reason for your visit today? incisional hernia Who is your referring physician? LIZET Anton Are you having poor oral intake? NO Have you had unintentional weight loss of 15 lbs/7 Kg in the last 3-6 months? NO Bowels: regular \ patient declined registered dental hygienist Freida Gonzalez LPN documented in this encounterThe [facility]06-21-2024 History of Present illness Narrative* [...] PATIENT PRESENTS WITH AN IMPLANTABLE OR ATTACHED FELT PULLER: No RADIOLOGY DEPARTMENT: CT; Exam(s) Completed: Enterography PERIPHERAL IV DATA: Not applicable SIGNED BY: RT Patrick(R) May 21, 2024 2:50 PM documented in this encounterThe [facility]06-21-2024 NoteSelect [facility] NoteSelect [facility]06-21-2024 History of Present illness Narrative* Jannie Caraballo [...] 2:28 PM PAGER/CONTACT #: documented in this encounterThe [facility]06-21-2024 NoteSelect [facility]06-21-2024 NoteSelect [facility]06-17-2024 Telephone encounter Note* Telephone Encounter - Lauren Berrios RN - 05/17/2024 2:27 PM EDT Faxed last 2 office visit notes to pt's insurance appeals department at [phone] for approval of his CTE. Await response. Lauren Berrios RN May 17, 2024 2:28 PM [facility]06-17-2024 Miscellaneous Notes* Telephone Encounter - Lauren Berrios RN - 05/17/2024 2:27 PM EDT Faxed last 2 office visit notes to pt's insurance appeals department at [phone] for approval of his CTE. Await response. Lauren Berrios RN May 17, 2024 2:28 PM * Telephone Encounter - Jessica Quinn - 05/10/2024 11:02 AM EDT Pt called and has CT scheduled in [place] on 05/13. He stated that CT was denied due to being pelvic scan? He states not pelvic. Looks like it is in a peer to peer. Pt would like a call with update. Jessica Quinn Special Education Educational Assistant documented in this encounterThe [facility] Of [facility]06-14-2024 Instructions* Patient Instructions* Reyna Anton APRN.INSTALLATIONS INSPECTOR - 05/14/2024 11:39 AM EDT Blood work [...] with same day fibroscan documented in this encounterThe [facility]06-14-2024 NoteSelect [facility]06-14-2024 History of Present illness Narrative* Reyna Anton APRN.LIZET - 05/14/2024 11:18 AM EDT NAME: Angelita Momin CLINIC NO: [id number] REFERRING PHYSICIAN: Self PRESENTING COMPLAINT: follow up [...] bowl obstruction with transition point at the [facility] -NPO -IVF -pain control -Phenergen for [...] Mediterranean diet PLAN - MONA BLOOD - [id number] - CERULOPLASMIN - CERULOPLASMIN - SMOOTH MUSCLE [...] 14, 2024 11:18 AM documented in this encounterThe [facility]06-14-2024 NoteSelect Medical [facility]06-14-2024 History of Present illness Narrative* Rusty Lopez [...] adhesions. No therapy since. Recent eval in [place] showed mild recurrence, hepatitis B and C. [...] vomiting with acid reflux. Pt is seeing notching press operator today. Physical Examination: General Appearance: alert, oriented [...] Date: May 14, 2024 documented in this encounterThe [facility]06-10-2024 Telephone encounter Note * Telephone Encounter - Jessica Quinn - 05/10/2024 11:02 AM EDT Pt called and has CT scheduled in [place] on 05/13. He stated that CT was denied due to being pelvic scan? He states not pelvic. Looks like it is in a peer to peer. Pt would like a call with update. Jessica Quinn Special Education Educational Assistant [facility]10-30-2023 NoteSelect Medical [facility]10-30-2023 History of Present illness Narrative* Rusty Lopez MD - 09/29/2023 12:00 PM EDT Virtual visit, 20 minutes, pt agreed Telephone encounter, minutes, patient agrees I have communicated my name and active licensure. The patient's identity and physical location wereverified at the time of this visit. Either the patient or their legal traffic workforce representative has been informed of the risks and benefits of -- and alternatives to -- treatment through a remote evaluation andconsents to proceed with the evaluation remotely. 33 yo with Crohn's disease, s/p subtotal colectomy with ileoanal anastomosis in 2014, complicated by SBO due to adhesions. No therapy since. Recent eval in [place] showed mild recurrence, hepatitis B and C. [...] Rusty Lopez MD, MPH documented in this encounterThe [facility]10-18-2023 NoteSelect Medical [facility]10-18-2023 History of Present illness Narrative* Hilda Munoz [...] Int J Clin Exp Med. 2015 Aug 15;8(10):35420-35.PMID: 61273288; PMCID: [id number]. Ariel Spencer, Desirae BURRIS, Lester M, Yasmine F, Val J, Zakia O, Gay F, Alli Spencer, Kyle G, Ugo Pablo, Fer E, Carlito L, Mary G, Dionne A, Shivam U, Julio S, Jenaro, Nargis V, Artis V, Lea M, Anselmo JONES. Refining the Baveno elastography criteria for the definition of compensated advanced chronic liver disease. J Hepatol. 2020;74(5):4984-3711. doi: 10.1016/j.jhep.2020.11.050. Epub 2019Nov 08. PMID: 75003430. documented in this encounterThe [facility]10-18-2023 Instructions* Patient Instructions* Reyna Anton APRN.LIZET - [...] up in 6 months documented in this encounterThe [facility]10-18-2023 History of Present illness Narrative* Reyna Anton [...] transfusion Pneumonia 03/21/2010 SBO (small bowel obstruction) ([facility]) 11/06/2015 - CT : bowl obstruction with transition point at the [facility] -NPO -IVF -pain control -Phenergen for [...] Follow up in 6 months Reyna Anton APRN.INSTALLATIONS INSPECTOR documented in this encounterThe [facility]10-18-2023 NoteSelect [facility]10-16-2023 Miscellaneous Notes* Telephone Encounter - Lea Lancaster [...] Friday. Piter Meneses DO documented in this encounterThe [facility]10-13-2023 NoteSelect Medical [facility]10-13-2023 History of Present illness Narrative* Piter Meneses [...] lyrica. He follows with a PCP in [place] who prescribes these medications. He thought today's [...] Social History reviewed with patient and in [facility] Medications and Allergies reviewed with patient and in [facility] BP 150/82 Pulse 87 Wt 111.1 [...] RIGHT UPPER QUADRANT F/u with PCP in [place]. If he wishes to transfer primary care to [facility] I welcomed him to schedule with me but for now he will continue filling his controlled substance prescriptions through his prior PCP Piter Meneses DO September 12, 2023 10:06 AM This note was partially generated using TalkPlus voice recognition system, and there may be some incorrect words, spellings, and punctuation that were not noted in checking the note before saving. . documented in this encounterThe [facility]12-02-2022 NotePROCEDURE: XR FOOT RT MIN 3 VIEWS COMPARISON: None. HISTORY: Pain FINDINGS: BONES:No fracture, acute abnormality, or significant arthropathy. SOFT TISSUES:Negative. No visible soft tissue swelling. EFFUSION:None visible. OTHER: Negative. IMPRESSION: No acute disease. Electronically authenticated by: ADOLFO PERALTA Date: 2022-11-01 10:49[facility]05-20-2022 NoteEducation Materials Orthopedics Metacarpal Fracture A [...] This may take several hours. ? Take bqrn-leo-iwjvdus and prescription medicines only as told by [...] have redness (more content not included)...[facility] [id number] Evaluation note* Encounter Date Diagnosis Assessment Notes [...] return to work 03/04/22 with no restriction. [employer] Other 02-10-2022 Evaluation note* Encounter Date Diagnosis [...] Patient states this is getting transferred to [facility]. [employer] [facility] Other 01-12-2022 NotePROCEDURE: XR KNEE RT 4V or > HISTORY: Pain ; acute medial knee pain COMPARISON: None. FINDINGS: BONES:No fracture, acute abnormality, or significant arthropathy. SOFT TISSUES:No visible soft tissue swelling. EFFUSION:None visible. OTHER: Negative. IMPRESSION: 1. No acute bone abnormality or significant degenerative changes. Electronically authenticated by: LUCY Troy: 2021-12-12 15:48[facility]10-14-2021 Evaluation note* Encounter Date Diagnosis Assessment [...] futher treatment.To call with questions or concerns. [employer] [facility] Other 08-15-2021 History of Past illness Narrative* Problem Noted DateDiagnosed DateResolved DateCrohn's disease, acute07/15/2021 09/12/2023Severe fjlimcotoqr21SBO (small bowel obstruction) Overview: - CT : bowl obstruction with transition point at the [facility] -NPO -IVF -pain control -Phenergen for n/v -for flex sig -f/u CORS [id number] Overview: 25 year old male with a [...] US KUB Remaining plan per loose stool Moztnsujw913documented as of this encounter (statuses as of 09/12/2023) [facility]08-15-2021 History of Past illness Narrative* ProblemNoted Date Diagnosed DateResolved DateCrohn's disease, acute/Severe quzjjkekttq83SBO (small bowel obstruction)11/06/2015 09/12/2023 Overview: - CT : bowl obstruction with transition point at the [facility] -NPO -IVF -pain control -Phenergen for n/v -for flex sig -f/u CORS [id number] Overview: 25 year old male with a [...] US KUB Remaining plan per loose stool Qohzcbcbp443documented as of this encounter (statuses as of 09/15/2023) [facility]08-15-2021 History of Past illness Narrative* ProblemNoted Date Diagnosed DateResolved DateCrohn's disease, acuteSevere loecwjgoxbt82SBO (small bowel obstruction)11/06/2015 09/12/2023 Overview: - CT : bowl obstruction with transition point at the [facility] -NPO -IVF -pain control -Phenergen for n/v -for flex sig -f/u CORS [id number] Overview: 25 year old male with a history of Crohn's presents with SBO Aetiology : fibrinous vs inflammatory Generalized painSyncope Overview: DD includes Vasovagal syncope related to pain Plan Telemetry Echo Pain control Utox Loose lhwtif24 Overview: Consider Small Bowel Overgrowth given refractory [...] US KUB Remaining plan per loose stool Qwifkbxhb863documented as of this encounter (statuses as of 09/17/2023) [facility]08-15-2021 History of Past illness Narrative* ProblemNoted Date Diagnosed DateResolved DateCrohn's disease, acuteSevere agfmsrvbkyp84SBO (small bowel obstruction)11/06/2015 09/12/2023 Overview: - CT : bowl obstruction with transition point at the [facility] -NPO -IVF -pain control -Phenergen for n/v -for flex sig -f/u CORS [id number] Overview: 25 year old male with a history of Crohn's presents with SBO Aetiology : fibrinous vs inflammatory Generalized painSyncope Overview: DD includes Vasovagal syncope related to pain Plan Telemetry Echo Pain control Utox Loose lmwmgu46 Overview: Consider Small Bowel Overgrowth given refractory [...] US KUB Remaining plan per loose stool Xvaohrjrc833documented as of this encounter (statuses as of 09/18/2023) [facility]08-15-2021 History of Past illness Narrative* ProblemNoted Date Diagnosed DateResolved DateCrohn's disease, acute/Severe isjyowumvaz01SBO (small bowel obstruction)11/06/2015 09/12/2023 Overview: - CT : bowl obstruction with transition point at the [facility] -NPO -IVF -pain control -Phenergen for n/v -for flex sig -f/u CORS [id number] Overview: 25 year old male with a [...] US KUB Remaining plan per loose stool Ivhqltcmr243documented as of this encounter (statuses as of 09/29/2023) [facility]10-07-2012 History of Past illness Narrative* ProblemNoted Date [...] of this encounter (statuses as of 04/30/2022) [facility]* Diagnosis Hand injury, right, initial encounter- Primary documented in this encounter [facility] CenterEvaluation noteNo InformationNort [employer] Other Evaluation noteNo assessment information available [facility] Work Phone: Evaluation note* [...] obstruction or gangrene [facility] Diagnosis Incisional hernia, without obstruction or gangrene- Primary Incisional hernia without mention of obstruction or gangrene Obesity, Class II, BMI 35-39.9 Obesity, unspecified documented [facility]* Diagnosis Crohn's disease of small [...] PCP and GI documented in this [facility]* Diagnosis Post-operative pain- Primary Other acute postoperative pain documented in this encounter [facility]* Diagnosis Encounter for medical assessment- Primary [facility] Diagnosis Post-operative pain- Primary Other acute postoperative pain documented in this [facility]* Diagnosis Pre-op evaluation- Primary Preoperative examination, [...] generalized [facility]* Diagnosis Pre-op evaluation- Primary Preoperative [...] acute postoperative pain documented in this encounter [facility] general Narrative - Reported* Type Description Date Medical History Crohns disease Medical HistoryanxietyMedical HistorydepressionMedical HistorybipolarMedical Historycolon cancerMedical HistorySeizure disorderSurgical Historycolectomy Surgical HistorycolostomySurgical HistorypneumonectomySurgical Historyshoulder surgerySurgical HistorycholecystectomySurgical Historycolectomy [id number] Hospitalization Historysee above [employer] [facility] Other History general Narrative - Reported* Type Description Date Medical History Crohns disease Medical HistoryanxietyMedical HistorydepressionMedical HistorybipolarMedical Historycolon cancerMedical HistorySeizure disorderSurgical Historycolectomy Surgical HistorycolostomySurgical HistorypneumonectomySurgical Historyshoulder surgerySurgical HistorycholecystectomySurgical Historycolectomy [id number] Surgical Historyright knee arthroscopy with partial medial menisectemy Hospitalization Historysee above [facility] Other Hospital Discharge instructions Additional Instructions Quarantine per CDC guidelines Increase oral fluids Tylenol or Motrin for fever pain body aches May take ptss-uvp-fsllnub cough and cold medication as needed Return to the ER for respiratory distress vomiting severe chest pain or any other concernsCosho[facility] Work Phone: Reason for referral (narrative)* Diagnostic Procedure Only (Routine) - Pending ReviewSpecialtyDiagnoses / ProceduresReferred By ContactReferred To ContactXR IMAGING Diagnoses Hand injury, right, initial encounter Procedures XR HAND GENERAL 3V PA/LAT/OBL RIGHT RADEX HAND MINIMUM 3 VIEWS Fernie Hollingsworth, [address] [place] [address] Xr Imaging Referral IDStatusReasonStart DateExpiration DateVisits RequestedVisits [id number] Review Auto-Generated Referral / [facility] for referral (narrative)* Diagnostic Procedure Only (Routine) - Pending ReviewSpecialtyDiagnoses / ProceduresReferred By Contact Referred To ContactUS IMAGING Diagnoses Chronic hepatitis C without hepatic coma (HCC) Procedures US ABD RIGHT UPPER QUADRANT US ABDOMINAL REAL TIME W/[place] [address] [place] [address] [place] [address] Referral IDStatusReasonStart DateExpiration DateVisits RequestedVisits [id number] Review Auto-Generated Referral / * Consult, Test, Treat (Routine) - AuthorizedSpecialtyDiagnoses / Procedures Referred By ContactReferred To ContactGastroenterology Diagnoses Chronic hepatitis C without hepatic coma (HCC) Crohn's disease of small intestine with other complication (HCC) Procedures CONSULT TO GASTROENTEROLOGY OFFICE/OUTPATIENT NEW HIGH MDM 60-[place] [address] [place] [address] Referral IDStatusReasonStart DateExpiration DateVisits RequestedVisits [id number] PCP Requested Referral / [facility] for referral (narrative)* Outpatient Procedure (Routine) - ClosedSpecialtyDiagnoses / ProceduresReferred By ContactReferred To Contact [facility] Diagnoses Chronic hepatitis C without hepatic coma (HCC) Elevated liver enzymes Procedures DDI VIBRATION CONTROLLED TRANSIENT ELASTOGRAPHY (VCTE) LIVER ELASTOGRAPHY W/O IMAG W/I&R Reyna Anton, KATHIA.INSTALLATIONS INSPECTOR [address] [place] [address] [place] [address] Referral IDStatusReasonStart DateExpiration DateVisits RequestedVisits [id number] Auto-Generated Referral * Consult, Test, Treat (Routine) - AuthorizedSpecialtyDiagnoses / Procedures Referred By ContactReferred To [facility] Diagnoses Crohn's disease of small intestine with other complication (HCC) Procedures CONSULT TO GASTROENTEROLOGY OFFICE/OUTPATIENT NEW HIGH MDM 60-74 MINUTES Reyna Anton, RAILROAD CAR LETTERER.INSTALLATIONS INSPECTOR [address] [place] [address] Referral IDStatusReasonStart DateExpiration DateVisits RequestedVisits [id number] PCP Requested Referral [facility] for referral (narrative)* Outpatient Procedure (Routine) - AuthorizedSpecialtyDiagnoses / ProceduresReferred By ContactReferred To [facility] Diagnoses Elevated liver enzymes Fatty liver Procedures DDI VIBRATION CONTROLLED TRANSIENT ELASTOGRAPHY (VCTE) LIVER ELASTOGRAPHY W/O IMAG W/I&R Reyna Anton, RAILROAD CAR LETTERER.INSTALLATIONS INSPECTOR [address] [place] [address] [place] [id number] Referral IDStatusReasonStart DateExpiration DateVisits RequestedVisits [id number] Auto-Generated Referral * Consult, Test, Treat (Routine) - AuthorizedSpecialtyDiagnoses / Procedures Referred By ContactReferred To ContactGeneral Surgery Diagnoses Hernia Procedures CONSULT TO GENERAL SURGERY OFFICE/OUTPATIENT [facility] MDM 60 MINUTES Reyna Anton APRN.CNP [address] [place] [phone] Referral IDStatusReasonStart DateExpiration DateVisits RequestedVisits [id number] PCP Requested Referral / [facility] CenterReason for visit Narrative* Outpatient Procedure (Routine) - ClosedSpecialtyDiagnoses / ProceduresReferred By ContactReferred To Contact [facility] Diagnoses Chronic hepatitis C without hepatic coma (HCC) Elevated liver enzymes Procedures DDI VIBRATION CONTROLLED TRANSIENT ELASTOGRAPHY (VCTE) LIVER ELASTOGRAPHY W/O IMAG W/I&R Reyna Anton APRN.LIZET [address] [place] [phone] [facility] [address] [place] [phone] Referral IDStatusReasonStart DateExpiration DateVisits RequestedVisits [id number] Auto-Generated Referral [facility] Instructions * Patient Instructions - Adolfo Puente, [...] heating pad on your skin. Take an ihgq-jfx-tmmpisb pain medicine, such as acetaminophen (Tylenol), ibuprofen [...] Log into your personal health record on [email or web address] and enter C927 in the Education box to learn more about Earache: Care Instructions. Current as of: April 11, 2017 Content Version: 11.6 5289-7379 [employer]. Care instructions adapted under license by your healthcare professional. If you have questions about a medical condition or this instruction, always ask your healthcare professional. [employer] disclaims any warranty or liability for your [...] EVALUATION HIGH COMPLEX 45 MINS Lena Walters, RAILROAD CAR LETTERER.INSTALLATIONS INSPECTOR [address] [place] [address] [facility] [place] [address] [place] [address] Referral IDStatusReasonStart DateExpiration DateVisits RequestedVisits [id number] Review Auto-Generated Referral /[id number] / ProceduresReferred By ContactReferred To Contact Diagnoses Preoperative examination Ventral hernia without obstruction or gangrene Procedures REFER TO PACC / [facility] - PREOPERATIVE OPTIMIZATION OFFICE/OUTPATIENT [facility] 60 MINUTES Renee Pearce, RAILROAD CAR LETTERER.INSTALLATIONS INSPECTOR [address] [place], [place] [id number] Referral IDStatusReasonStart DateExpiration DateVisits RequestedVisits [id number] PCP Requested Referral /[id number] / ProceduresReferred By ContactReferred To ContactREGENCY HOSPITAL COMPANYRT [facility] Diagnoses Preoperative examination Ventral hernia without obstruction or gangrene Procedures ECG COMPLETE ECG ROUTINE ECG W/LEAST 12 LDS W/I&R Renee Pearce, RAILROAD CAR LETTERER.INSTALLATIONS INSPECTOR [address] [place], [place] [id number] [facility] [place] [address] [place] [address] Referral IDStatusReasonStart DateExpiration DateVisits RequestedVisits [id number] Review Auto-Generated Referral /[id number] / ProceduresReferred By ContactReferred To Contact Diagnoses Preoperative examination Ventral hernia without obstruction or gangrene Procedures CONSULT TO [facility]ICINE OFFICE/OUTPATIENT [facility] 60 MINUTES Renee Pearce, RAILROAD CAR LETTERER.INSTALLATIONS INSPECTOR [address] [place], [place] [id number] Referral IDStatusReasonStart DateExpiration DateVisits RequestedVisits [id number] PCP Requested Referral /[id number] / ProceduresReferred By ContactReferred To ContactCT IMAGING Diagnoses Crohn's disease of small and large intestines with complication (HCC) Procedures CT ENTEROGRAPHY W IVCON CT ABD & PELVIS W/CONTRAST Rusty Lopez MD [address] [place] [address] [address] [facility] [place] [address] Referral IDStatusReasonStart DateExpiration DateVisits RequestedVisits [id number] Review Auto-Generated Referral Additional Source Comments ED [...] different from the original. ED PROVIDER NOTE [facility] EM[facility] NAME: Angelita Momin AGE: 27 y.o. : 1990 VISIT DATE: 11/21/2017 CSN: [id number] PCP: Physician No Chief Complaint Patient presents [...] suicidal, homicidal ideation. 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 [...] section and content) DATE CREATED AUTHOR 05/17/2018 [facility] DATE CREATED AUTHOR AUTHOR'S ORGANIZ ATION 09/05/2019 [facility] DATE CREATED AUTHOR AUTHOR'S ORGANIZ ATION 09/05/2019 [facility] DATE CREATED AUTHOR AUTHOR'S ORGANIZ ATION 03/13/2021 [facility] DATE CREATED AUTHOR AUTHOR'S ORGANIZ ATION 04/27/2022 [facility] DATE CREATED AUTHOR AUTHOR'S ORGANIZ ATION 11/03/2022 [facility] DATE CREATED AUTHOR AUTHOR'S ORGANIZ ATION 09/14/2023 [facility] DATE CREATED AUTHOR AUTHOR'S ORGANIZ ATION 02/02/2024 [facility] DATE CREATED AUTHOR AUTHOR'S ORGANIZ ATION 04/11/2024 [facility] DATE CREATED AUTHOR AUTHOR'S ORGANIZ ATION 07/19/2024 [facility] DATE CREATED AUTHOR AUTHOR'S ORGANIZ ATION 08/15/2024 [facility] Source Comments (unrecognize d section and content) In the event this informatio n is protected by the Federal Confidentiality of Alcohol and Drug Abuse Patient Records regulations: The Federal rules restrict any use of the information to criminally investigate or prosecute any alcohol or drug abuse patient.[facility] [place] [facility] the event this information is protected by the Federal Confidentiality of Alcohol and Drug Abuse Patient Records regulations: The Federal rules restrict any use of the information to criminally investigate or prosecute any alcohol or drug abuse patient.[facility] [place] [facility] CenterIn the event this information is protected by the Federal Confidentiality of Alcohol and Drug Abuse Patient Records regulations: The Federal rules restrict any use of the information to criminally investigate or prosecute any alcohol or drug abuse patient.[facility] [place] [facility] CenterIn the event this information is protected by the Federal Confidentiality of Alcohol and Drug Abuse Patient Records regulations: The Federal rules restrict any use of the information to criminally investigate or prosecute any alcohol or drug abuse patient.[facility] [place] [facility] CenterIn the event this information is protected by the Federal Confidentiality of Alcohol and Drug Abuse Patient Records regulations: The Federal rules restrict any use of the information to criminally investigate or prosecute any alcohol or drug abuse patient.[facility] [place] [facility] CenterIn the event this information is protected by the Federal Confidentiality of Alcohol and Drug Abuse Patient Records regulations: The Federal rules restrict any use of the information to criminally investigate or prosecute any alcohol or drug abuse patient.[facility] [place] [facility] CenterIn the event this information is protected by the Federal Confidentiality of Alcohol and Drug Abuse Patient Records regulations: The Federal rules restrict any use of the information to criminally investigate or prosecute any alcohol or drug abuse patient.[facility] [place] [facility] CenterIn the event this information is protected by the Federal Confidentiality of Alcohol and Drug Abuse Patient Records regulations: The Federal rules restrict any use of the information to criminally investigate or prosecute any alcohol or drug abuse patient.[facility] [place] [facility] CenterIn the event this information is protected by the Federal Confidentiality of Alcohol and Drug Abuse Patient Records regulations: The Federal rules restrict any use of the information to criminally investigate or prosecute any alcohol or drug abuse patient.[facility] [place] [facility] CenterIn the event this information is protected by the Federal Confidentiality of Alcohol and Drug Abuse Patient Records regulations: The Federal rules restrict any use of the information to criminally investigate or prosecute any alcohol or drug abuse patient.[facility] [place] [facility] CenterIn the event this information is protected by the Federal Confidentiality of Alcohol and Drug Abuse Patient Records regulations: The Federal rules restrict any use of the information to criminally investigate or prosecute any alcohol or drug abuse patient.[facility] [place] [facility] CenterIn the event this information is protected by the Federal Confidentiality of Alcohol and Drug Abuse Patient Records regulations: The Federal rules restrict any use of the information to criminally investigate or prosecute any alcohol or drug abuse patient.[facility] [place] [facility] CenterIn the event this information is protected by the Federal Confidentiality of Alcohol and Drug Abuse Patient Records regulations: The Federal rules restrict any use of the information to criminally investigate or prosecute any alcohol or drug abuse patient.[facility] [place] [facility] CenterIn the event this information is protected by the Federal Confidentiality of Alcohol and Drug Abuse Patient Records regulations: The Federal rules restrict any use of the information to criminally investigate or prosecute any alcohol or drug abuse patient.[facility] [place] [facility] CenterIn the event this information is protected by the Federal Confidentiality of Alcohol and Drug Abuse Patient Records regulations: The Federal rules restrict any use of the information to criminally investigate or prosecute any alcohol or drug abuse patient.[facility] [place] [facility] CenterIn the event this information is protected by the Federal Confidentiality of Alcohol and Drug Abuse Patient Records regulations: The Federal rules restrict any use of the information to criminally investigate or prosecute any alcohol or drug abuse patient.[facility] [place] [facility] CenterIn the event this information is protected by the Federal Confidentiality of Alcohol and Drug Abuse Patient Records regulations: The Federal rules restrict any use of the information to criminally investigate or prosecute any alcohol or drug abuse patient.[facility] [place] [facility] CenterIn the event this information is protected by the Federal Confidentiality of Alcohol and Drug Abuse Patient Records regulations: The Federal rules restrict any use of the information to criminally investigate or prosecute any alcohol or drug abuse patient.[facility] [place] [facility] CenterIn the event this information is protected by the Federal Confidentiality of Alcohol and Drug Abuse Patient Records regulations: The Federal rules restrict any use of the information to criminally investigate or prosecute any alcohol or drug abuse patient.[facility] [place] [facility] CenterIn the event this information is protected by the Federal Confidentiality of Alcohol and Drug Abuse Patient Records regulations: The Federal rules restrict any use of the information to criminally investigate or prosecute any alcohol or drug abuse patient.[facility] [place] [facility] CenterIn the event this information is protected by the Federal Confidentiality of Alcohol and Drug Abuse Patient Records regulations: The Federal rules restrict any use of the information to criminally investigate or prosecute any alcohol or drug abuse patient.[facility] [place] [facility] CenterIn the event this information is protected by the Federal Confidentiality of Alcohol and Drug Abuse Patient Records regulations: The Federal rules restrict any use of the information to criminally investigate or prosecute any alcohol or drug abuse patient.[facility] [place] [facility] CenterIn the event this information is protected by the Federal Confidentiality of Alcohol and Drug Abuse Patient Records regulations: The Federal rules restrict any use of the information to criminally investigate or prosecute any alcohol or drug abuse patient.[facility] [place] [facility] CenterIn the event this information is protected by the Federal Confidentiality of Alcohol and Drug Abuse Patient Records regulations: The Federal rules restrict any use of the information to criminally investigate or prosecute any alcohol or drug abuse patient.[facility] [place] [facility] CenterIn the event this information is protected by the Federal Confidentiality of Alcohol and Drug Abuse Patient Records regulations: The Federal rules restrict any use of the information to criminally investigate or prosecute any alcohol or drug abuse patient.[facility] [place] [facility] CenterIn the event this information is protected by the Federal Confidentiality of Alcohol and Drug Abuse Patient Records regulations: The Federal rules restrict any use of the information to criminally investigate or prosecute any alcohol or drug abuse patient.[facility] Care Teams (unrecognized sec tion and content) Team Status: Active Member Role Status Dates [facility] RonquilloSELECT [facility]ITALMD [facility] Primary Care Provider Bev ctalex Team Status: Inactive Member Role Status Dates Chetan Rojas ([facility] Primary [facility] Provider Active Start: January 222023 End: January 22Nelida Choi ProviderActiveStart: January 22, 2024 End: January 22, 2024Team MemberRelationshipSpecialtyStart DateEnd Date Wil Goetz PCP - GeneralFamily Practice5/4/17 Team Status: Inactive Member Role Status Dates Chetan Rojas ([facility]) MD Primary Care Provider A ctIVON Renteria-BCEmergency ProviderActiveTeam MemberRelationship SpecialtyStart DateEnd Date Wil Goetz [address] [place] [address] PCP - GeneralFamily Emcgitrf25/13/23Team MemberRelationshipSpecialtyStart Date End Date BárbaraWil moore [address] [place] [address] PCP - GeneralFamily Kipevqyi18/13/23Team MemberRelationshipSpecialtyStart Date End Date BárbaraWil moore [address] [place] [address] PCP - GeneralFamily Rrayrozr42/13/23Team MemberRelationshipSpecialtyStart Date End Date BárbaraWil moore [address] [place] [address] PCP - GeneralFamily Ojlhryoi76/13/23Team MemberRelationshipSpecialtyStart Date End Date BárbaraWil moore [address] [place] [address] PCP - GeneralFamily Zojapxgu35/13/23Team MemberRelationshipSpecialtyStart Date End Date BárbaraWil moore [address] [place] [address] PCP - GeneralFamily Fsrxvcbc12/13/23Team MemberRelationshipSpecialtyStart Date End Date BishnuWil [address] [place] [address] PCP - GeneralFamily Uodpqncu09/13/23Team MemberRelationshipSpecialtyStart Date End Date Wil Goetz [address] [place] [address] PCP - GeneralFamily Oluvilnm88/13/23Team MemberRelationshipSpecialtyStart Date End Date Wil Goetz [address] [place] [address] PCP - GeneralFamily Irrxojud11/13/23Team MemberRelationshipSpecialtyStart Date End Date Wil Goetz [address] [facility] [address] PCP - GeneralFamily Lhiknkbi33/13/23Team MemberRelationshipSpecialtyStart Date End Date Wil Goetz [address] [place] [address] PCP - GeneralFamily Vgprbcjk11/13/23Team MemberRelationshipSpecialtyStart Date End Date Wil Goetz [address] [place] [address] PCP - GeneralFamily Xwwgnujq30/13/23Team MemberRelationshipSpecialtyStart Date End Date Chetan Rojas MD [facility] [place] [address] PCP - GeneralFamily Medicine06/08/24Team MemberRelationshipSpecialtyStart DateEnd Date Wil Goetz [address] [place] [address] PCP - GeneralFamily Xvvrxfcd59/13/237Team MemberRelationshipSpecialtyStart DateEnd Date Chetan Rojas MD [address] [place] [address] PCP - GeneralFamily Medicine06/08/24Team MemberRelationshipSpecialtyStart DateEnd Date Wil Goetz [address] [place] [address] PCP - GeneralFamily Zkvulzwa58/13/237 Chetan Rojas MD [address] [place] [address] PCP - GeneralFamily Medicine06/08/24Team MemberRelationshipSpecialtyStart DateEnd Date Chetan Rojas MD [address] [place] [address] PCP - GeneralFamily Medicine06/08/24Team MemberRelationshipSpecialtyStart DateEnd Date Chetan Rojas MD [address] [place] [address] PCP - GeneralFamily Medicine06/08/24Team MemberRelationshipSpecialtyStart DateEnd Date Chetan Rojas MD [address] [place] [address] PCP - GeneralFamily Medicine06/08/24Team MemberRelationshipSpecialtyStart DateEnd Date Chetan Rojas MD [address] [place] [id number] PCP - [facility] Medicine06/08/24Team MemberRelationshipSpecialtyStart DateEnd Date Chetan Rojas MD [address] [place] [address] PCP - [facility]06/08/24Te MemberRelationshipSpecialtyStart DateEnd Date Chetan Rojas MD [address] [place] [id number] PCP - [facility]06/08/24Te MemberRelationshipSpecialtyStart DateEnd Date Chetan Rojas MD [address] [place] [id number] PCP - [facility]06/08/24 REASON FOR VISIT (unrecogniz ed section [...] complication (HCC) Procedures CONSULT TO GASTROENTEROLOGY OFFICE/OUTPATIENT [facility] 60-[place] [address] [place] [address] Referral IDStatusReasonStart DateExpiration DateVisits RequestedVisits [id number] PCP Requested Referral [id number]uwegqOznivfuaz / Procedures Referred By ContactReferred To ContactGastroenterology Diagnoses Crohn's disease of small intestine with other complication (HCC) Procedures CONSULT TO GASTROENTEROLOGY OFFICE/OUTPATIENT [facility] 60-74 MINUTES Reyna Anton APRN.INSTALLATIONS INSPECTOR [address] [place] [address] Referral IDStatusReasonStart DateExpiration DateVisits RequestedVisits [id number] PCP Requested Referral [id number] PatientCrohnsReasonComments Established PatientChronic Hep C Follow UpReasonCommentsOrdersCare Coordinator - OtherReasonCommentsRadiology CTSpecialtyDiagnoses / ProceduresReferred By ContactReferred To ContactCT IMAGING Diagnoses Crohn's disease of small and large intestines with complication (HCC) Procedures CT ENTEROGRAPHY W IVCON CT ABD & PELVIS W/CONTRAST Rusty Lopez MD [address] [place] [address] [address] [facility] [place] [address] Referral IDStatusReasonStart DateExpiration DateVisits RequestedVisits [id number] Auto-Generated Referral Clearance Not Met - Admin/Operator Coating Furnace/Director Advise to Postpone/Reschedule or Not Proceed /[id number] CTSpecialtyDiagnoses / Procedures Referred By ContactReferred To ContactRadiology / RADIO CT SCAN [employer] Diagnoses Crohn's disease of both small and large intestine with complication (HCC) Procedures CT ABD & PELVIS W/CONTRAST CT ENTEROGRAPHY PREP Rusty Lopez MD [address] [place] [address] Scan [facility] [address] [place] [address] Referral IDStatusReasonStart DateExpiration DateVisits RequestedVisits [id number] Patient Cleared - Admin/Operator Coating Furnace/Director advise to proceed or did not respond [id number] [employer] VHR 3 hours los 2Reason CommentsConsultReasonCommentsCrohnsReasonCommentsHerniaSpecialtyDiagnoses / ProceduresReferred By ContactReferred To ContactGeneral Surgery Diagnoses Hernia Procedures CONSULT TO GENERAL SURGERY OFFICE/OUTPATIENT [facility] 60 MINUTES Reyna Anton, RAILROAD CAR LETTERER.INSTALLATIONS INSPECTOR [address] [place] [id number] Referral IDStatusReasonStart DateExpiration DateVisits RequestedVisits [id number] PCP Requested Referral /[id number] / ProceduresReferred By ContactReferred To Contact Diagnoses Preoperative examination Ventral hernia without obstruction or gangrene Procedures REFER TO PACC / [facility] FOR PERIOPERATIVE [facility]IC[facility] - PREOPERATIVE OPTIMIZATION OFFICE/OUTPATIENT [facility] 60 MINUTES Renee Pearce, RAILROAD CAR LETTERER.INSTALLATIONS INSPECTOR [address] [place] [id number] Referral IDStatusReasonStart DateExpiration DateVisits RequestedVisits [id number] PCP Requested Referral /[id number] In UrineReasonOnset DateCommentsEscalation of Care4ReasonCommentsPainChronic pain Goals [...] BE BASED ON THE PRIMARY CLINICAL RECORDS. [employer] [facility]. provides no warranty or guarantee of the accuracy or completeness of information in this document.
[2025-11-04 21:23] LABS: Glucose Urine UA 100 mg/dL (NEGATIVE)
[2025-11-04 21:27] LABS: Hematocrit 46.4 % (42.0-54.0); Hemoglobin 15.4 g/dL (14.0-18.0); Immature Granulocytes Abs Auto 0.08 10^3/uL (0.00-0.03); Immature Granulocytes Pct Auto 0.9 % (0.0-0.5); Lymphocytes Absolute Auto 1.4 10^3/uL (1.2-3.8); Mean Corpuscular HGB Conc 33.2 g/dL (29.9-35.2); Mean Corpuscular Hemoglobin 27.9 pg (25.9-34.0); Mean Corpuscular Volume 84.1 fL (80.0-94.0); Platelet Count 155 10^3/uL (150-450); Red Blood Count 5.52 10^6/uL (4.70-6.10); White Blood Count 8.5 10^3/uL (4.0-11.0)
[2025-11-04 21:31] LABS: Cast Seen? NONE SEEN #/LPF (NONE SEEN); Crystals Seen? None Seen #/HPF (None Seen); Urine Culture Indicated NO
[2025-11-04 21:35] LABS: SARS-CoV-2 Ag NEGATIVE (NEGATIVE)
[2025-11-04 21:37] LABS: Anion Gap 14.9
[2025-11-04 21:39] LABS: Alanine Aminotransferase 130 U/L (16-63); Albumin Globulin Ratio 0.9; Albumin Level 3.9 g/dL (3.4-5.0); Alkaline Phosphatase 168 U/L (46-116); Aspartate Amino Transferase 146 U/L (15-37); Blood Urea Nitrogen 5.0 mg/dL (7.0-18.0); Calcium 9.7 mg/dL (8.5-10.1); Carbon Dioxide 27.1 mmol/L (21.0-32.0); Chloride 101 mmol/L (98-107); Estimated GFR (African America >60 (>=60 mL/min/1.73m^2); Estimated GFR (Non-African Ame >60 (>=60 mL/min/1.73m^2); Globulin 4.4 g/dL; Glucose 123 mg/dL (74-106); Lactate/Lactic Acid 0.8 mmol/L (0.4-2.0); Lipase 42.0 U/L (16.0-77.0); Potassium 4.0 mmol/L (3.5-5.1); Sodium 139 mmol/L (136-145); Total Protein 8.3 g/dL (6.4-8.2)
[2025-11-04] MEDS: METOCLOPRAMIDE HCL 10 MG/2 ML VIAL IVP (22:33)
[2025-11-04 22:34] VITALS: BP 123/80; PULSE 95; O2SAT 97
== END 2025-11-04 23:07 | disposition home or self-care (01) ==
PROVIDERS: Emergency Provider Internal Medicine; PCP Family Medicine
DX: R11.2 Nausea with vomiting, unspecified (principal); R16.0 Hepatomegaly, not elsewhere classified; K58.9 Irritable bowel syndrome, unspecified; F10.90 Alcohol use, unspecified, uncomplicated; Z90.49 Acquired absence of other specified parts of digestive tract; Z93.3 Colostomy status
CPT/HCPCS: 36415; 74177; 80053; 81001; 83605; 83690; 84484; 85025; 87804; 87811; 96361; 96374; 96375; 99285; J2765; J3010; Q9967